=== PATIENT | female | born 1965 | race Caucasian/White ===

== ENCOUNTER 2016-06-26 13:01 | Emergency (ER) | payer OTHER ==
[~2016-06-26] VITALS: Ht 160 cm; Wt 156.7 kg
[~2016-06-26 13:01] MED LIST: CHOL20009 PO; CLON2TAB3 PO; CYAN3INJ IM; FEXO1TAB46 PO; FLUT0.0529 NAE; FRS/40 PO; LACT10SO30 PO; LEVO100T7 PO; POLY335025 PO; RANI300T2 PO; RIFA550T2 PO; TRIA0.1C55 TOP; WARF5TAB90 PO; ZOLP10TA PO
[2016-06-26 13:03] VITALS: TEMP 36.9; Ht 160 cm; Wt 156.7 kg
--- NOTE | 2016-06-26 13:35 | EMERGENCY ROOM VISIT NOTE ---
History Report prepared by Cary: Adán Meier Under the Supervision of: Dr. Flo Leach M.D. First contact with patient: 13:13 Chief Complaint: MENTAL HEALTH EVALUATION Stated Complaint: MIGRAINE/DEPRESSION History of Present Illness The patient is a 50 year old female who presents to the Emergency Room with persistent depression for the past two months. The patient has had problems with depression in the past, for which she was admitted as an inpatient twice. She feels that she may need to be admitted as an inpatient again. She also takes medication for depression which she has been compliant with but does not believe is working. She gets her prescription from her family provider. The patient spends a lot of time sitting at home due to the depression and she cries intermittently. She is depressed about money, lack of friends, and not being able to keep up like she used to. The patient currently lives with a friend. She does not currently follow up with a psychiatrist or therapist but says that she would. The patient denies any suicidal ideations. She attempted to hurt herself once in the past but says she would never do it again. The patient also complains of a migraine that started last night. The headache feels the same as her typical migraine. Nothing makes the headache better or worse. The patient notes that Dilaudid usually helps for her migraines. The patient has a history of hypertension and non-alcoholic cirrhosis. She was told that she would eventually need a transplant. 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 She currently denies chest pain, shortness of breath, or leg pain. The patient denies any recent trauma or injury. She smokes half a pack of cigarettes per day. She denies alcohol or illicit drug use. Source of History: patient Onset: two months ago Position: other (psyche) Quality: other (depression) Timing: other (persistent) Modifying Factors (Worsening): other (life stressors) Associated Symptoms: + headache, No SOB, No chest pain Note: Negative SI. Review of Systems See HPI for pertinent positives & negatives. A total of 10 systems reviewed and were otherwise negative. Past Medical & Surgical Medical Problems: (1) Abdominal pain (2) Abdominal pain (3) Abdominal pain (4) Abdominal wall cellulitis (5) Acute hypokalemia (6) Acute renal failure syndrome (7) Ankle pain (8) Asthma (9) Atypical syncope (10) Benign hypertension (11) Bipolar disorder (12) Bowel obstruction (13) Cellulitis (14) CELLULITIS ABDOMEN (15) Cellulitis and abscess of trunk (16) Chronic pain (17) Contusion of ankle (18) Contusion of periorbital region, left (19) Degenerative joint disease of spine (20) Dehydration (21) Dehydration (22) Depression (23) Diabetes mellitus type 2 (24) DM (diabetes mellitus screen) (25) Drug-seeking behavior (26) DVT (deep venous thrombosis) (27) Exacerbation of chronic back pain (28) Fall (29) Fracture of fourth metatarsal bone of left foot (30) Gastroesophageal reflux disease (31) Hepatic encephalopathy (32) Hernia of abdominal wall (33) Hyperglycemia (34) Hypokalemia (35) Hypokalemia (36) Hypokalemia (37) Hypokalemia (38) Hypothyroidism (39) Hypoxia (40) Incarcerated ventral hernia (41) Incisional irritation (42) Incisional pain (43) Inguinal lymphadenopathy (44) Insomnia (45) LUMBAGO (46) Migraine (47) Morbid obesity (48) Morbid obesity (49) Morbid obesity (50) Obstructive sleep apnea (51) Pain, dental (52) Renal colic on right side (53) Renal insufficiency (54) Renal insufficiency (55) SBO (small bowel obstruction) (56) Seroma, postoperative (57) Sleep apnea (58) Spinal stenosis (59) Supraumbilical hernia Surgical Problems: (1) H/O hernia repair (2) H/O knee surgery (3) H/O: hysterectomy (4) History of cholecystectomy (5) Hx of appendectomy Social History Problems: (1) Diabetic neuropathy Old medical records were reviewed. Nurse's notes were reviewed and I agree with. Family History Cancer Diabetes mellitus Gallbladder disease Heart disease Hypertension Lung disease Social History Smoking Status: Current Every Day Smoker Alcohol Use: none Drug Use: none Marital Status: single, in relationship Housing Status: lives with family Occupation Status: unemployed, disabled Current/Historical Medications Scheduled Carvedilol (Coreg), 12.5 MG PO BID Duloxetine Hcl (Cymbalta), 60 MG PO QPM Escitalopram Oxalate (Lexapro), 20 MG PO QPM Insulin Aspart (Novolog Flexpen), UNITS SC TID Insulin Glargine (Lantus Solostar), 75 UNITS SC BID Levothyroxine Sodium (Levothyroxine Sodium), 100 MCG PO QAM Ranitidine (Zantac), 300 MG PO QPM Rifaximin (Xifaxan), 550 MG PO BID Warfarin Sodium (Coumadin), 5 MG PO DAILY AT 4PM Scheduled PRN Clonazepam (Klonopin), 2 MG PO BID PRN for Anxiety Fexofenadine Hcl (Ya), 180 MG PO DAILY PRN for PRN Oxygen (Oxygen), 3 LITERS NA UD PRN for Shortness of Breath Polyethylene Glycol 3350 (Miralax), 1 TBS PO DAILY PRN for Severe Constipation Prochlorperazine Maleate (Compazine), 5 MG PO TID PRN for Nausea Zolpidem Tartrate (Ambien), 10 MG PO HS PRN for Insomnia Allergies Coded Allergies: Iodinated Diagnostic Agents (Verified Allergy, Intermediate, hives, ) Per patient she has had it since without problem Adhesives (Verified Allergy, Mild, RED RASH CAUSED BY PAPER TAPE, 02/26/16) Alprazolam (Verified Allergy, Unknown, MAKES LOOPY,DO AND SAY SILLY THINGS , 02/26/16) Metformin (Verified Allergy, Unknown, HANDS FEET FACE NUMB, 02/26/16) Vancomycin (Verified Adverse Reaction, Severe, renal failure, required dialysis x 3 MONTHS, 02/26/16) Methylparaben (Verified Adverse Reaction, Intermediate, FLUID RETENTION, 02/26/16) Oxymorphone (Verified Adverse Reaction, Intermediate, FLUID RETENTION, 02/26/16) Gabapentin (Verified Adverse Reaction, Mild, Aphasia/Speech impairments, 02/26/16) Sulfa Antibiotics (Verified Adverse Reaction, Mild, GI SYMPTOMS, 02/26/16) Acetaminophen (Verified Adverse Reaction, Unknown, Liver problems., ) Codeine (Verified Adverse Reaction, Unknown, UPSET STOMACH, 02/26/16) Pregabalin (Verified Adverse Reaction, Unknown, Aphasia/Speech impairments , 02/26/16) Physical Exam Vital Signs Date Time Temp Pulse Resp B/P Pulse Ox O2 Delivery O2 Flow Rate FiO2 06/26/16 16:00 88 22 124/71 92 06/26/16 14:52 63 22 101/68 94 Room Air 06/26/16 13:03 36.9 73 20 119/83 96 Physical Exam General: Non ill appearing middle aged female in no acute distress. HEENT: Normal cephalic atraumatic. Pupils are equal round and reactive to light. Sclerae anicteric. Extraocular movements are intact. Oropharynx is pink with moist mucous membranes. No swelling of the mouth lips or tongue. Neck: Supple with a midline trachea. No meningeal signs or stiffness, no JVD or bruits. No Stridor. Chest: Clear to auscultation bilaterally. No wheezes or rhonchi. No increased work of breathing. Heart: regular rate and rhythm. Abdomen: Soft nontender, nondistended without rebound guarding or rigidity. Extremities: No cyanosis clubbing or edema. No calf tenderness or assymetry Spine/Back. Non tender to palpation. No CVA tenderness Skin: Good turgor without rashes. Neurologic exam: Cranial nerves two through 12 are intact. Motor and sensation are intact and symmetrical throughout. Psych: Normal affect and thought process, intermittently teary eyed, denies suicidal or homicidal ideations. Medical Decision & Procedures Laboratory Results 06/26/16 13:55 Red Blood Count 4.61, Mean Corpuscular Volume 94.8, Mean Corpuscular Hemoglobin 33.2, Mean Corpuscular Hemoglobin Concent 35.0, Mean Platelet Volume 9.1, Neutrophils (%) (Auto) 67.4, Lymphocytes (%) (Auto) 23.8, Monocytes (%) (Auto) 6.9, Eosinophils (%) (Auto) 1.4, Basophils (%) (Auto) 0.3, Neutrophils # (Auto) 6.80, Lymphocytes # (Auto) 2.40, Monocytes # (Auto) 0.70, Eosinophils # (Auto) 0.14, Basophils # (Auto) 0.03 06/26/16 13:55 Test 06/26/16 13:31 06/26/16 13:55 Urine Opiates Screen NEG (NEG) Urine Methadone, Qualitative NEG (NEG) Urine Barbiturates NEG (NEG) Urine Phencyclidine (PCP) Level NEG (NEG) Ur Amphetamine/Methamphetamine NEG (NEG) MDMA (Ecstasy) Screen NEG (NEG) Urine Benzodiazepines Screen NEG (NEG) Urine Cocaine Metabolite NEG (NEG) Urine Marijuana (THC) NEG (NEG) White Blood Count 10.09 K/uL (4.8-10.8) Red Blood Count 4.61 M/uL (4.2-5.4) Hemoglobin 15.3 g/dL (12.0-16.0) Hematocrit 43.7 % (37-47) Mean Corpuscular Volume 94.8 fL (80-100) Mean Corpuscular Hemoglobin 33.2 pg (25-34) Mean Corpuscular Hemoglobin Concent 35.0 g/dl (32-36) Platelet Count 170 K/uL (130-400) Mean Platelet Volume 9.1 fL (7.4-10.4) Neutrophils (%) (Auto) 67.4 % Lymphocytes (%) (Auto) 23.8 % Monocytes (%) (Auto) 6.9 % Eosinophils (%) (Auto) 1.4 % Basophils (%) (Auto) 0.3 % Neutrophils # (Auto) 6.80 K/uL (1.4-6.5) Lymphocytes # (Auto) 2.40 K/uL (1.2-3.4) Monocytes # (Auto) 0.70 K/uL (0.11-0.59) Eosinophils # (Auto) 0.14 K/uL (0-0.5) Basophils # (Auto) 0.03 K/uL (0-0.2) RDW Standard Deviation 50.1 fL (36.4-46.3) RDW Coefficient of Variation 14.6 % (11.5-14.5) Immature Granulocyte % (Auto) 0.2 % Immature Granulocyte # (Auto) 0.02 K/uL (0.00-0.02) Prothrombin Time 29.4 SECONDS (9.0-12.0) Prothromb Time International Ratio 2.6 (0.9-1.1) Activated Partial Thromboplast Time 44.4 SECONDS (21.0-31.0) Partial Thromboplastin Ratio 1.7 Anion Gap 10.0 mmol/L (3-11) Est Creatinine Clear Calc Drug Dose 109.9 ml/min Estimated GFR () 86.4 Estimated GFR (Non- 74.5 BUN/Creatinine Ratio 8.4 (10-20) Calcium Level 8.4 mg/dl (8.5-10.1) Total Bilirubin 0.7 mg/dl (0.2-1) Direct Bilirubin 0.2 mg/dl (0-0.2) Aspartate Amino Transf (AST/SGOT) 19 U/L (15-37) Alanine Aminotransferase (ALT/SGPT) 17 U/L (12-78) Alkaline Phosphatase 101 U/L (45-117) Total Protein 7.2 gm/dl (6.4-8.2) Albumin 2.9 gm/dl (3.4-5.0) Lipase 45 U/L (73-393) Salicylates Level 2.8 mg/dl (2.8-20) Acetaminophen Level < 2 ug/ml (10-30) Ethyl Alcohol mg/dL < 3.0 mg/dl (0-3) Laboratory studies as stated above per my review. Medications Administered Medications (Trade) Dose Ordered Sig/Nelda Route Start Time Stop Time Status Last Admin Dose Admin Sodium Chloride 1,000 ml @ 999 mls/hr Q1H1M STAT IV 06/26/16 13:37 06/26/16 14:37 DC 06/26/16 14:10 999 MLS/HR Sodium Chloride (Nss 1000ml) 1,000 ml @ 150 mls/hr Q6H40M ONCE IV 06/26/16 13:37 06/26/16 16:48 DC 06/26/16 15:06 150 MLS/HR Ondansetron HCl (Zofran Inj) 4 mg NOW STAT IV 06/26/16 15:20 06/26/16 15:22 DC 06/26/16 15:31 4 MG Ketorolac Tromethamine (Toradol Inj) 30 mg NOW STAT IV 06/26/16 15:20 06/26/16 15:22 DC 06/26/16 15:31 30 MG ECG Indication: other (anticoagulated) Rate (beats per minute): 63 Rhythm: normal sinus Findings: 1st degree AV block, other (poor baseline) Change: 1st degree AV block is now present compared to EKG dated 2015. ED Course 1320: Past medical records reviewed. The patient was evaluated in room A7, and a complete history and physical examination were performed. 1337: NSS 1000 ml @ 150 mls/hr, NSS 1000 ml @ 999 mls/hr. 1520: Toradol 30 mg IV, Zofran 4 mg IV. 1530: The patient requested something for nausea and pain. 1535: The patient is medically cleared. She will be evaluated by the psych casework supervisor. 1600: The patient was reviewed by [facility]. She does not meet inpatient criteria. 1615: Reassessed the patient. Discussed the discharge instructions with her. She verbalized understanding. The patient is ready for discharge. Medical Decision Differential diagnosis includes migraine, depression, infection, electrolyte or metabolic abnormality. This patient comes in as described above. She was placed in room A7. She is here for treatment and evaluation of anxiety as well as a migraine. I do know her well from previous admissions . she has not had any suicidal or homicidal ideations. Her headache is consistent with previous migraines. Multiple blood testing was obtained for medical clearance. She has nothing to suggest acute infectious electrolyte or metabolic abnormality. She has a normal neurologic exam and has nothing to suggest infection or acute intracranial process. He was given Toradol 30 mg iv and zofran 4 mg iv. she has no acute toxicologic process. she was evaluated by our disease case manager rn as well as [facility]. was consulted. they do not feel she meets inpatient criteria and are going to help arrange outpatient treatment of the patient does not seem very interested in this. she says she wants to go home. again she is not suicidal or homicidal. I encouraged her follow-up with her regular doctor and return to the er for worsening of symptoms, thoughts of hurting self or others, any new problems or concerns. Impression Primary Impression: Anxiety Additional Impression: Headache Scribe Attestation The scribe's documentation has been prepared under my direction and personally reviewed by me in its entirety. I confirm that the note above accurately reflects all work, treatment, procedures, and medical decision making performed by me. Departure Information Dispostion Home / Self-Care Referrals No Doctor, Assigned (PCP) Forms HOME CARE DOCUMENTATION FORM, IMPORTANT VISIT INFORMATION Patient Instructions My [facility] [place] Additional Instructions Rest. Drink plenty of fluids. Return if: Worsening symptoms, thoughts of hurting himself or others, increasing pain or problems, any new problems or concerns. Follow-up with your doctor on Tuesday for recheck Problem Qualifiers
[2016-06-26] MEDS ORDERED: SODIUM CHLORIDE 0.9% 1000ML 1,000 ML IV STA (13:37)
[2016-06-26] MEDS ORDERED: SODIUM CHLORIDE 0.9% 1000ML 1,000 ML IV ONE (13:37)
[2016-06-26 14:15] LABS: BASO % 0.3 %; BASO ABS # 0.03 K/uL (0-0.2); COMPLETE YES; EOS % 1.4 %; HEMATOCRIT 43.7 % (37-47); IG% 0.2 %; INR 2.6 (0.9-1.1); LYMPH % 23.8 %; MEAN CELL VOLUME 94.8 fL (80-100); MEAN CORPUSCULAR HEMOGLOBIN 33.2 pg (25-34); MEAN PLATELET VOLUME 9.1 fL (7.4-10.4); MONO % 6.9 %; NEUT % 67.4 %; PARTIAL THROMBOPLASTIN RATIO 1.7; PLATELET COUNT 170 K/uL (130-400); PROTHROMBIN TIME (PATIENT) 29.4 SECONDS (9.0-12.0); RED BLOOD COUNT 4.61 M/uL (4.2-5.4); WHITE BLOOD COUNT 10.09 K/uL (4.8-10.8)
[2016-06-26 14:24] LABS: BUN/CREATININE RATIO 8.4 (10-20); CALCIUM 8.4 mg/dl (8.5-10.1); CREATININE 0.89 mg/dl (0.60-1.20); POTASSIUM 3.2 mmol/L (3.5-5.1)
[2016-06-26 15:00] LABS: BENZODIAZEPINE, URINE NEG (NEG); COCAINE,URINE NEG (NEG); PHENCYCLIDINE, URINE NEG (NEG)
[2016-06-26 15:07] LABS: ACETAMINOPHEN < 2 ug/ml (10-30)
[2016-06-26] MEDS ORDERED: ONDANSETRON INJ 2 MG/ML 2 ML VIAL IV STA (15:20)
[2016-06-26] MEDS ORDERED: KETOROLAC TROMETHAMINE 30 MG/ML VIAL IV STA (15:20)
[2016-06-26 16:00] VITALS: BP 124/71; PULSE 88; O2SAT 92
[2016-12-29] MEDS ORDERED: PRLSR20 PO (13:52)
== END 2016-06-26 16:20 | disposition home or self-care (01) ==
LOC: C.EDB 13:05 → C.EDA 16:20
DX: F41.9 Anxiety disorder, unspecified (principal); R51 Headache; J45.909 Unspecified asthma, uncomplicated; I10 Essential (primary) hypertension; E11.9 Type 2 diabetes mellitus without complications; Z79.899 Other long term (current) drug therapy; Z79.01 Long term (current) use of 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s; Z79.4 Long term (current) use of insulin

== ENCOUNTER 2016-07-07 13:23 | Emergency (ER) | payer OTHER ==
[~2016-07-07] VITALS: Ht 160 cm; Wt 162.1 kg
[~2016-07-07 13:23] MED LIST changes: -CHOL20009 PO; -CYAN3INJ IM; -FLUT0.0529 NAE; -FRS/40 PO; -LACT10SO30 PO; -TRIA0.1C55 TOP
[2016-07-07 13:35] VITALS: TEMP 36.6; Ht 160 cm; Wt 162.1 kg
[2016-07-07] MEDS ORDERED: SODIUM CHLORIDE 0.9% 1000ML 1,000 ML IV STA (13:57)
[2016-07-07] MEDS ORDERED: KETOROLAC TROMETHAMINE 30 MG/ML VIAL IV ONE (14:00)
[2016-07-07] MEDS ORDERED: ONDANSETRON INJ 2 MG/ML 2 ML VIAL IV ONE (14:00)
--- NOTE | 2016-07-07 14:03 | EMERGENCY ROOM VISIT NOTE ---
History Report prepared by [place]: Lilliana Huddleston Under the Supervision of: Dr. Netta Valle D.O. First contact with patient: 13:48 Chief Complaint: ABDOMINAL PAIN Stated Complaint: CHEST PAIN Nursing Triage Summary: abdominal pain for the last two days from the liver up to the shoulder area. nausea with this. patient with liver disease. History of Present Illness The patient is a 50 year old female who presents to the Emergency Room with complaints of persistent diffuse abdominal pain that began yesterday. She currently rates her discomfort as a 7/10 in severity. The patient states that today her pain feels different than her typical abdominal pain. She states that her pain is typically related to her hernia. Today the patient describes her pain persistently as a burning pain, and intermittently sharp. . She states that the pain radiates up into her right shoulder and is associated with nausea and hot flashes today. She denies any fever, diarrhea, or constipation. The patient states that she took Advil for her discomfort without relief of her symptoms. She notes a history of cirrhosis of the liver. The patient notes that her pain feels related to her cirrhosis The patient states that she is eventually going to need a liver transplant, Source of History: patient Onset: yesterday Position: abdomen (diffuse) Symptom Intensity: 7/10 Quality: burning, sharp Timing: other (persistent) Associated Symptoms: + nausea, No diarrhea, No fevers Note: Associated Symptoms: hot flashes, pain radiating up to her right shoulder. Review of Systems See HPI for pertinent positives & negatives. A total of 10 systems reviewed and were otherwise negative. Past Medical & Surgical Medical Problems: (1) Abdominal pain (2) Abdominal pain (3) Abdominal pain (4) Abdominal wall cellulitis (5) Acute hypokalemia (6) Acute renal failure syndrome (7) Ankle pain (8) Asthma (9) Atypical syncope (10) Benign hypertension (11) Bipolar disorder (12) Bowel obstruction (13) Cellulitis (14) CELLULITIS ABDOMEN (15) Cellulitis and abscess of trunk (16) Chronic pain (17) Contusion of ankle (18) Contusion of periorbital region, left (19) Degenerative joint disease of spine (20) Dehydration (21) Dehydration (22) Depression (23) Diabetes mellitus type 2 (24) DM (diabetes mellitus screen) (25) Drug-seeking behavior (26) DVT (deep venous thrombosis) (27) Exacerbation of chronic back pain (28) Fall (29) Fracture of fourth metatarsal bone of left foot (30) Gastroesophageal reflux disease (31) Hepatic encephalopathy (32) Hernia of abdominal wall (33) Hyperglycemia (34) Hypokalemia (35) Hypokalemia (36) Hypokalemia (37) Hypokalemia (38) Hypothyroidism (39) Hypoxia (40) Incarcerated ventral hernia (41) Incisional irritation (42) Incisional pain (43) Inguinal lymphadenopathy (44) Insomnia (45) LUMBAGO (46) Migraine (47) Morbid obesity (48) Morbid obesity (49) Morbid obesity (50) Obstructive sleep apnea (51) Pain, dental (52) Renal colic on right side (53) Renal insufficiency (54) Renal insufficiency (55) SBO (small bowel obstruction) (56) Seroma, postoperative (57) Sleep apnea (58) Spinal stenosis (59) Supraumbilical hernia Surgical Problems: (1) H/O hernia repair (2) H/O knee surgery (3) H/O: hysterectomy (4) History of cholecystectomy (5) Hx of appendectomy Social History Problems: (1) Diabetic neuropathy Family History Cancer Diabetes mellitus Gallbladder disease Heart disease Hypertension Lung disease Social History Smoking Status: Current Every Day Smoker Alcohol Use: none Drug Use: none Marital Status: single, in relationship Housing Status: lives with family Occupation Status: unemployed, disabled Current/Historical Medications Scheduled Carvedilol (Coreg), 12.5 MG PO BID Duloxetine Hcl (Cymbalta), 60 MG PO QPM Escitalopram Oxalate (Lexapro), 20 MG PO QPM Insulin Aspart (Novolog Flexpen), UNITS SC TID Insulin Glargine (Lantus Solostar), 75 UNITS SC BID Levothyroxine Sodium (Levothyroxine Sodium), 100 MCG PO QAM Ranitidine (Zantac), 300 MG PO QPM Warfarin Sodium (Coumadin), 5 MG PO DAILY AT 4PM Scheduled PRN Clonazepam (Klonopin), 2 MG PO BID PRN for Anxiety Fexofenadine Hcl (Ya), 180 MG PO DAILY PRN for PRN Oxygen (Oxygen), 3 LITERS NA UD PRN for Shortness of Breath Prochlorperazine Maleate (Compazine), 5 MG PO TID PRN for Nausea Zolpidem Tartrate (Ambien), 10 MG PO HS PRN for Insomnia Allergies Coded Allergies: Iodinated Diagnostic Agents (Verified Allergy, Intermediate, hives, ) Per patient she has had it since without problem Adhesives (Verified Allergy, Mild, RED RASH CAUSED BY PAPER TAPE, 07/07/16) Alprazolam (Verified Allergy, Unknown, MAKES LOOPY,DO AND SAY SILLY THINGS , 07/07/16) Metformin (Verified Allergy, Unknown, HANDS FEET FACE NUMB, 07/07/16) Vancomycin (Verified Adverse Reaction, Severe, renal failure, required dialysis x 3 MONTHS, 07/07/16) Methylparaben (Verified Adverse Reaction, Intermediate, FLUID RETENTION, ) Oxymorphone (Verified Adverse Reaction, Intermediate, FLUID RETENTION, ) Gabapentin (Verified Adverse Reaction, Mild, Aphasia/Speech impairments, ) Sulfa Antibiotics (Verified Adverse Reaction, Mild, GI SYMPTOMS, 07/07/16) Acetaminophen (Verified Adverse Reaction, Unknown, Liver problems., ) Codeine (Verified Adverse Reaction, Unknown, UPSET STOMACH, 07/07/16) Pregabalin (Verified Adverse Reaction, Unknown, Aphasia/Speech impairments , 07/07/16) Physical Exam Vital Signs Date Time Temp Pulse Resp B/P Pulse Ox O2 Delivery O2 Flow Rate FiO2 07/07/16 16:05 60 18 116/63 95 07/07/16 13:35 36.6 88 20 140/76 92 Room Air Physical Exam GENERAL: The patient is a pleasant 50 year old female in mild distress. VITALS: Afebrile, hypertensive, normal pulse oximetry on room air. THROAT: No pharyngeal injection, exudates, or tonsillar hypertrophy. Airway is patent. NECK: Supple, nontender, no lymphadenopathy or nuchal rigidity. THORAX : Symmetrical and nontender to palpation without deformity or palpable crepitus. LUNGS : Clear without wheezing, rhonchi, or rales HEART: Regular rate and rhythm ABDOMEN: Morbidly obese, soft diffusely tender, without guarding, rigidity, or rebound tenderness. Bowel sounds are diminished in all 4 quadrants. Unable to assess for masses. No CVA tenderness. Femoral pulses are symmetrical EXTREMITIES : Without deformity or point tenderness. There are no palpable cords, edema, or erythema.. NEUROLOGIC: Intact without focal deficits Medical Decision & Procedures ER Provider Diagnostic Interpretation: X-ray results as stated below per interpretation by me and the radiologist: ABDOMEN 2VIEW W/PA CHEST RTN CLINICAL HISTORY: abdominal pain pain COMPARISON STUDY: No previous studies for comparison. FINDINGS: Lungs are considered clear. Heart is top limits normal terms of size. Diaphragms smooth. Bowel pattern is nonobstructive. There are degenerative changes of the lumbosacral spine. There is been a prior cholecystectomy. Bowel pattern is nonobstructive. IMPRESSION: 1. No acute process of the chest. 2. No acute process of the abdomen Electronically signed by: Will Holder M.D. 07/07/2016 3:39 PM Dictated Date/Time: 07/07/2016 3:39 PM Laboratory Results 07/07/16 14:15 Red Blood Count 4.09, Mean Corpuscular Volume 92.4, Mean Corpuscular Hemoglobin 32.5, Mean Corpuscular Hemoglobin Concent 35.2, Mean Platelet Volume 9.1, Neutrophils (%) (Auto) 58.4, Lymphocytes (%) (Auto) 30.7, Monocytes (%) (Auto) 8.0, Eosinophils (%) (Auto) 2.3, Basophils (%) (Auto) 0.4, Neutrophils # (Auto) 4.92, Lymphocytes # (Auto) 2.58, Monocytes # (Auto) 0.67, Eosinophils # (Auto) 0.19, Basophils # (Auto) 0.03 07/07/16 14:15 Test 07/07/16 14:10 07/07/16 14:15 Urine Color YELLOW Urine Appearance CLEAR (CLEAR) Urine pH 5.5 (4.5-7.5) Urine Specific [place] 1.037 (1.000-1.030) Urine Protein NEG (NEG) Urine Glucose (UA) 3+ (NEG) Urine Ketones NEG (NEG) Urine Occult Blood NEG (NEG) Urine Nitrite NEG (NEG) Urine Bilirubin NEG (NEG) Urine Urobilinogen NEG (NEG) Urine Leukocyte Esterase NEG (NEG) White Blood Count 8.41 K/uL (4.8-10.8) Red Blood Count 4.09 M/uL (4.2-5.4) Hemoglobin 13.3 g/dL (12.0-16.0) Hematocrit 37.8 % (37-47) Mean Corpuscular Volume 92.4 fL (80-100) Mean Corpuscular Hemoglobin 32.5 pg (25-34) Mean Corpuscular Hemoglobin Concent 35.2 g/dl (32-36) Platelet Count 153 K/uL (130-400) Mean Platelet Volume 9.1 fL (7.4-10.4) Neutrophils (%) (Auto) 58.4 % Lymphocytes (%) (Auto) 30.7 % Monocytes (%) (Auto) 8.0 % Eosinophils (%) (Auto) 2.3 % Basophils (%) (Auto) 0.4 % Neutrophils # (Auto) 4.92 K/uL (1.4-6.5) Lymphocytes # (Auto) 2.58 K/uL (1.2-3.4) Monocytes # (Auto) 0.67 K/uL (0.11-0.59) Eosinophils # (Auto) 0.19 K/uL (0-0.5) Basophils # (Auto) 0.03 K/uL (0-0.2) RDW Standard Deviation 48.0 fL (36.4-46.3) RDW Coefficient of Variation 14.2 % (11.5-14.5) Immature Granulocyte % (Auto) 0.2 % Immature Granulocyte # (Auto) 0.02 K/uL (0.00-0.02) Prothrombin Time 30.6 SECONDS (9.0-12.0) Prothromb Time International Ratio 2.7 (0.9-1.1) Anion Gap 6.0 mmol/L (3-11) Est Creatinine Clear Calc Drug Dose 120.5 ml/min Estimated GFR () 94.0 Estimated GFR (Non- 81.1 BUN/Creatinine Ratio 13.9 (10-20) Calcium Level 8.1 mg/dl (8.5-10.1) Total Bilirubin 0.4 mg/dl (0.2-1) Direct Bilirubin 0.1 mg/dl (0-0.2) Aspartate Amino Transf (AST/SGOT) 26 U/L (15-37) Alanine Aminotransferase (ALT/SGPT) 26 U/L (12-78) Alkaline Phosphatase 92 U/L (45-117) Total Creatine Kinase 52 U/L (26-192) Troponin I < 0.015 ng/ml (0-0.045) Total Protein 6.5 gm/dl (6.4-8.2) Albumin 2.5 gm/dl (3.4-5.0) Lipase 172 U/L (73-393) Beta-Hydroxybutyric Acid 0.48 mg/dL (0.2-2.81) Laboratory studies as stated above per my review. Medications Administered Medications (Trade) Dose Ordered Sig/Nelda Route Start Time Stop Time Status Last Admin Dose Admin Sodium Chloride (Nss 1000ml) 1,000 ml @ 250 mls/hr Q4H STAT IV 07/07/16 13:57 07/07/16 17:07 DC 07/07/16 14:29 250 MLS/HR Ondansetron HCl (Zofran Inj) 4 mg NOW ONCE IV 07/07/16 14:00 07/07/16 14:02 DC 07/07/16 14:27 4 MG Ketorolac Tromethamine (Toradol Inj) 30 mg NOW ONCE IV 07/07/16 14:00 07/07/16 14:02 DC 07/07/16 14:28 30 MG Lidocaine HCl (Viscous Lidocaine 2% Soln) 10 ml NOW STAT PO 07/07/16 15:04 07/07/16 15:05 DC 07/07/16 15:43 10 ML Al Hydroxide/Mg Hydroxide (Maalox Susp) 30 ml NOW STAT PO 07/07/16 15:04 07/07/16 15:05 DC 07/07/16 15:43 30 ML ECG Indication: abdominal pain Rate (beats per minute): 70 Rhythm: other (undetermined rhythm, expect sinus) Findings: 1st degree AV block, no acute ischemic change, other (low voltage) Comparison ECG Date: 06/26/16 Change: no significant change ED Course 1350: Past medical records reviewed. The patient was evaluated in room C1B. A complete history and physical examination was performed. On examination she was complaining of right upper quadrant pain but did have diffuse tenderness with palpation. She did not have any peritoneal or obstructive findings. An IV of normal saline was established and she was hydrated with IV fluids. She was medicated with 30 mg of IV Toradol and 4 mg of IV Zofran. She continued to complain of moderate pain and was given a GI cocktail of Maalox and lidocaine with minimal relief. The patient is on a no narcotic treatment plan and did not receive any additional narcotics. She underwent the above diagnostic workup. Her CBC is normal and not suggestive of infection. She does have an elevated glucose of 337 with negative ketones and she is a diabetic. Electrolytes and liver function tests are normal. Her lipase is normal and not suggestive of pancreatitis. Calcium is 8.1. Urinalysis shows 3+ glucose otherwise negative no infection. Abdominal series does not show any acute findings; no obstructive changes no free air. Chest x-ray is negative as well. Twelve-lead ECG shows an undetermined rhythm which I suspect is a sinus rhythm with first-degree AV block. She has no acute ischemic changes. Her troponin is normal and not suggestive of ischemia. 50-year-old woman well-known to the Emergency department with a history of chronic abdominal pain who presents with acute abdominal pain. She does not have any acute findings. At this time she has been advised on diet and symptomatic care. She's to have close outpatient follow-up with her personal physician for further pain management. Return if worsening symptoms or concerns. The patient is comfortable with this treatment plan. 1357: Ordered Sodium Chloride 1000 ml @ 250 mls/hr IV. 1400: Ordered Toradol Inj 30 mg IV, Zofran Inj 4 mg IV. 1504: Ordered Maalox Susp 30 ml PO, Lidocaine HCl 10 ml PO. 1545: I reevaluated the patient and she is hemodynamically stable. I discussed the exam findings with her and I discussed the treatment plan. She verbalized complete understanding and agreement. She is ready to go home. Medical Decision EMR, nurse's notes, diagnostic studies personally reviewed Differential diagnosis-see above The chart was completed utilizing [employer] Speech Voice Recognition Software. Grammatical errors, random word insertions, pronoun errors, and incomplete sentences are an occasional consequence of this system due to software limitations, ambient noise, and hardware issues. Any formal questions or concerns about the content, text, or information contained within the body of this dictation should be directly addressed to the physician for clarification. Impression Primary Impression: Acute generalized abdominal pain Additional Impressions: Obesity narcotic seeking behavior Scribe Attestation The scribe's documentation has been prepared under my direction and personally reviewed by me in its entirety. I confirm that the note above accurately reflects all work, treatment, procedures, and medical decision making performed by me. Departure Information Dispostion Home / Self-Care Referrals Agustina Cummings M.D. (PCP) Forms Call Back Authorization, HOME CARE DOCUMENTATION FORM, IMPORTANT VISIT INFORMATION Patient Instructions My [facility] Additional Instructions Continue medications as prescribed Follow-up with your family doctor if pain persists Return if worsening symptoms or concerns Problem Qualifiers
[2016-07-07 14:58] LABS: BASO % 0.4 %; BASO ABS # 0.03 K/uL (0-0.2); COMPLETE YES; EOS % 2.3 %; HEMATOCRIT 37.8 % (37-47); IG% 0.2 %; LYMPH % 30.7 %; LYMPH ABS # 2.58 K/uL (1.2-3.4); MEAN CELL VOLUME 92.4 fL (80-100); MEAN CORPUSCULAR HEMOGLOBIN 32.5 pg (25-34); MEAN CORPUSCULAR HGB CONC 35.2 g/dl (32-36); MEAN PLATELET VOLUME 9.1 fL (7.4-10.4); NEUT % 58.4 %; PLATELET COUNT 153 K/uL (130-400); RED BLOOD COUNT 4.09 M/uL (4.2-5.4); WHITE BLOOD COUNT 8.41 K/uL (4.8-10.8)
[2016-07-07 15:04] LABS: INR 2.7 (0.9-1.1); PROTHROMBIN TIME (PATIENT) 30.6 SECONDS (9.0-12.0)
[2016-07-07] MEDS ORDERED: LIDOCAINE HCL 2% VISC SOLN 20 ML UDC PO STA (15:04)
[2016-07-07] MEDS ORDERED: ALUMINUM/MAGNESIUM SUSP 30 ML UDC PO STA (15:04)
[2016-07-07 15:18] LABS: ALT/SGPT 26 U/L (12-78); AST/SGOT 26 U/L (15-37); BLOOD UREA NITROGEN 12 mg/dl (7-18); BUN/CREATININE RATIO 13.9 (10-20); CALCIUM 8.1 mg/dl (8.5-10.1); CARBON DIOXIDE 27 mmol/L (21-32); CHLORIDE 104 mmol/L (98-107); CREATININE 0.83 mg/dl (0.60-1.20); GLUCOSE 337 mg/dl (70-99); SODIUM 137 mmol/L (136-145)
[2016-07-07 15:27] LABS: ALKALINE PHOSPHATASE 92 U/L (45-117); BETA-HYDROXYBUTYRATE 0.48 mg/dL (0.2-2.81)
--- NOTE | 2016-07-07 15:41 | DIAGNOSTIC IMAGING REPORT ---
ABDOMEN 2VIEW W/PA CHEST RTN CLINICAL HISTORY: abdominal pain pain COMPARISON STUDY: No previous studies for comparison. FINDINGS: Lungs are considered clear. Heart is top limits normal terms of size. Diaphragms smooth. Bowel pattern is nonobstructive. There are degenerative changes of the lumbosacral spine. There is been a prior cholecystectomy. Bowel pattern is nonobstructive. IMPRESSION: 1. No acute process of the chest. 2. No acute process of the abdomen Electronically signed by: Will Holder M.D. 07/07/2016 3:39 PM Dictated Date/Time: 07/07/2016 3:39 PM
[2016-07-07 16:05] VITALS: BP 116/63; PULSE 60; O2SAT 95
[2016-07-07 17:23] LABS: URINE APPEARANCE CLEAR (CLEAR); URINE BILIRUBIN NEG (NEG); URINE COLOR YELLOW; URINE NITRITE NEG (NEG); URINE PH 5.5 (4.5-7.5); URINE SPECIFIC GRAVITY 1.037 (1.000-1.030); UROBILINOGEN NEG (NEG)
[2016-07-07 17:29] LABS: MANUAL MICROSCOPIC REQUIRED? NO; REVIEW REQ? NO
[2016-12-29] MEDS ORDERED: PRLSR20 PO (13:52)
== END 2016-07-07 16:06 | disposition home or self-care (01) ==
LOC: EDBD 13:23 → C.EDC 13:26
DX: R10.84 Generalized abdominal pain (principal); E66.01 Morbid (severe) obesity due to excess calories; Z68.44 Body mass index [BMI] 60.0-69.9, adult; Z76.5 Malingerer [conscious simulation]; E11.9 Type 2 diabetes mellitus without complications; J45.909 Unspecified asthma, uncomplicated; I10 Essential (primary) hypertension; F31.9 Bipolar disorder, unspecified; K21.9 Gastro-esophageal reflux disease without esophagitis; F17.200 Nicotine dependence, unspecified, uncomplicated; Z79.899 Other long term (current) drug therapy; Z79.4 Long term (current) use of insulin; Z79.01 Long term (current) use of 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s; Z86.718 Personal history of other venous thrombosis and embolism; Z83.3 Family history of diabetes mellitus; Z82.49 Family history of ischemic heart disease and other diseases of the circulatory system

== ENCOUNTER 2016-08-07 14:21 | Emergency (ER) | payer OTHER ==
[~2016-08-07] VITALS: Ht 160 cm; Wt 155.0 kg
[~2016-08-07 14:21] MED LIST changes: -POLY335025 PO; -RIFA550T2 PO
[2016-08-07 14:26] VITALS: Ht 160 cm; Wt 155.0 kg
[2016-08-07] MEDS ORDERED: KETOROLAC TROMETHAMINE 30 MG/ML VIAL IV STA (14:46)
[2016-08-07] MEDS ORDERED: SODIUM CHLORIDE 0.9% 1000ML 1,000 ML IV STA (14:46)
[2016-08-07 15:24] LABS: BASO % 0.6 %; BASO ABS # 0.05 K/uL (0-0.2); COMPLETE YES; EOS % 2.3 %; HEMATOCRIT 42.1 % (37-47); IG% 0.2 %; LYMPH % 31.6 %; MEAN CELL VOLUME 92.9 fL (80-100); MEAN CORPUSCULAR HEMOGLOBIN 33.6 pg (25-34); MEAN CORPUSCULAR HGB CONC 36.1 g/dl (32-36); MONO % 8.7 %; NEUT % 56.6 %; PLATELET COUNT 182 K/uL (130-400); RED BLOOD COUNT 4.53 M/uL (4.2-5.4); WHITE BLOOD COUNT 8.85 K/uL (4.8-10.8)
[2016-08-07 15:39] LABS: BUN/CREATININE RATIO 6.5 (10-20); CREATININE 1.1 mg/dl (0.60-1.20); POTASSIUM 4.1 mmol/L (3.5-5.1)
[2016-08-07] MEDS ORDERED: NovoLIN-R INSULIN PER UNIT CHARGE SC STA (15:43)
[2016-08-07 15:48] LABS: URINE APPEARANCE CLEAR (CLEAR); URINE COLOR DK YELLOW; URINE EPITHELIAL CELL AUTO >30 /lpf (0-5); URINE NITRITE NEG (NEG); URINE SPECIFIC GRAVITY > 1.045 (1.000-1.030); UROBILINOGEN NEG (NEG); ZZURINE CULT IF INDIC CATH NO
[2016-08-07 15:53] LABS: BETA-HYDROXYBUTYRATE 1.03 mg/dL (0.2-2.81)
[2016-08-07 15:59] LABS: INR 2.9 (0.9-1.1); PROTHROMBIN TIME (PATIENT) 32.6 SECONDS (9.0-12.0)
[2016-08-07 16:00] LABS: MANUAL MICROSCOPIC REQUIRED? NO; REVIEW REQ? YES; SULFASALICYLIC ACID NEG (NEG); URINE BILIRUBIN 1+ (NEG)
[2016-08-07 16:04] LABS: URINE MUCUS PRESENT (NONE PRSENT)
--- NOTE | 2016-08-07 16:11 | DIAGNOSTIC IMAGING REPORT ---
CT OF THE ABDOMEN AND PELVIS WITHOUT CONTRAST CLINICAL HISTORY: Severe left flank pain. COMPARISON STUDY: CT of the abdomen and pelvis January 25, 2016 and abdominal series July 07, 2016. TECHNIQUE: Axial images of the abdomen and pelvis were obtained without IV contrast. Images were reviewed in the axial, sagittal, and coronal planes. FINDINGS: Several left renal calculi measure up to 4 mm. There are no ureteral calculi and there is no hydronephrosis. Evaluation of the abdomen and pelvis is suboptimal as unenhanced exam. The liver is cirrhotic. Sensitivity for detection of hepatic lesions is diminished but none are identified. The gallbladder surgically absent. Splenomegaly is unchanged. There is no ascites. Unchanged postoperative findings involving the anterior abdominal wall are noted with infiltration with there is no fluid collection. There is no evidence for a bowel obstruction. The appendix is surgically absent. Several prominent upper abdominal lymph nodes are unchanged since prior CT of January 25, 2016. There is no peripancreatic infiltration. Multilevel degenerative changes within the lumbar spine are present. IMPRESSION: 1. Left-sided nephrolithiasis. No ureteral calculi or hydronephrosis. 2. Cirrhosis with stable splenomegaly. 3. No acute process within the abdomen or pelvis on unenhanced exam. Unchanged postoperative appearance of the anterior abdominal wall. No fluid collection. Electronically signed by: Vini Alvarado M.D. 08/07/2016 4:09 PM Dictated Date/Time: 08/07/2016 4:02 PM
[2016-08-07 16:33] VITALS: BP 130/88; PULSE 68; TEMP 36.7; O2SAT 96
--- NOTE | 2016-08-07 20:08 | EMERGENCY ROOM VISIT NOTE ---
History Report prepared by [place]: Adán Meier Under the Supervision of: Dr. Branden Corea D.O. First contact with patient: 14:32 Chief Complaint: KIDNEY STONE Stated Complaint: KIDNEY STONES History of Present Illness The patient is a 50 year old female who presents to the Emergency Room with complaints of constant left lower back pain for the past 3.5 weeks. The patient describes a burning / stabbing sensation. The pain is not worse with movement. She has a history of kidney stones and UTIs. She has had burning with urination and urgency for the past week. She has had 3-4 stones in the past, and has had lithotripsy. She has not seen a Urologist or her primary care physician. She is s/p complete hysterectomy, appendectomy, cholecystectomy. Patient denies headache, change in vision, fevers, chest pain, shortness of breath, nausea, vomiting, diarrhea, and melena. Source of History: patient Onset: 3.5 weeks ago Position: back (left lower) Quality: burning, stabbing Timing: constant Associated Symptoms: + urinary symptoms, No SOB, No chest pain, No diarrhea , No fevers, No headache, No nausea, No vomiting Review of Systems See HPI for pertinent positives & negatives. A total of 10 systems reviewed and were otherwise negative. Past Medical & Surgical Medical Problems: (1) Abdominal pain (2) Abdominal pain (3) Abdominal pain (4) Abdominal wall cellulitis (5) Acute hypokalemia (6) Acute renal failure syndrome (7) Ankle pain (8) Asthma (9) Atypical syncope (10) Benign hypertension (11) Bipolar disorder (12) Bowel obstruction (13) Cellulitis (14) CELLULITIS ABDOMEN (15) Cellulitis and abscess of trunk (16) Chronic pain (17) Contusion of ankle (18) Contusion of periorbital region, left (19) Degenerative joint disease of spine (20) Dehydration (21) Dehydration (22) Depression (23) Diabetes mellitus type 2 (24) DM (diabetes mellitus screen) (25) Drug-seeking behavior (26) DVT (deep venous thrombosis) (27) Exacerbation of chronic back pain (28) Fall (29) Fracture of fourth metatarsal bone of left foot (30) Gastroesophageal reflux disease (31) Hepatic encephalopathy (32) Hernia of abdominal wall (33) Hyperglycemia (34) Hypokalemia (35) Hypokalemia (36) Hypokalemia (37) Hypokalemia (38) Hypothyroidism (39) Hypoxia (40) Incarcerated ventral hernia (41) Incisional irritation (42) Incisional pain (43) Inguinal lymphadenopathy (44) Insomnia (45) LUMBAGO (46) Migraine (47) Morbid obesity (48) Morbid obesity (49) Morbid obesity (50) Obstructive sleep apnea (51) Pain, dental (52) Renal colic on right side (53) Renal insufficiency (54) Renal insufficiency (55) SBO (small bowel obstruction) (56) Seroma, postoperative (57) Sleep apnea (58) Spinal stenosis (59) Supraumbilical hernia Surgical Problems: (1) H/O hernia repair (2) H/O knee surgery (3) H/O: hysterectomy (4) History of cholecystectomy (5) Hx of appendectomy Social History Problems: (1) Diabetic neuropathy Family History Cancer Diabetes mellitus Gallbladder disease Heart disease Hypertension Lung disease Social History Smoking Status: Current Every Day Smoker Alcohol Use: none Drug Use: none Marital Status: single, in relationship Housing Status: lives with family Occupation Status: unemployed, disabled Current/Historical Medications Scheduled Carvedilol (Coreg), 12.5 MG PO BID Duloxetine Hcl (Cymbalta), 60 MG PO QPM Escitalopram Oxalate (Lexapro), 20 MG PO QPM Insulin Aspart (Novolog Flexpen), UNITS SC TID Insulin Glargine (Lantus Solostar), 75 UNITS SC BID Levothyroxine Sodium (Levothyroxine Sodium), 100 MCG PO QAM Ranitidine (Zantac), 300 MG PO QPM Warfarin Sodium (Coumadin), 5 MG PO DAILY AT 4PM Scheduled PRN Clonazepam (Klonopin), 2 MG PO BID PRN for Anxiety Fexofenadine Hcl (Ya), 180 MG PO DAILY PRN for PRN Oxygen (Oxygen), 3 LITERS NA UD PRN for Shortness of Breath Prochlorperazine Maleate (Compazine), 5 MG PO TID PRN for Nausea Zolpidem Tartrate (Ambien), 10 MG PO HS PRN for Insomnia Allergies Coded Allergies: Iodinated Diagnostic Agents (Verified Allergy, Intermediate, hives, ) Per patient she has had it since without problem Adhesives (Verified Allergy, Mild, RED RASH CAUSED BY PAPER TAPE, 07/07/16) Alprazolam (Verified Allergy, Unknown, MAKES LOOPY,DO AND SAY SILLY THINGS , 07/07/16) Metformin (Verified Allergy, Unknown, HANDS FEET FACE NUMB, 07/07/16) Vancomycin (Verified Adverse Reaction, Severe, renal failure, required dialysis x 3 MONTHS, 07/07/16) Methylparaben (Verified Adverse Reaction, Intermediate, FLUID RETENTION, ) Oxymorphone (Verified Adverse Reaction, Intermediate, FLUID RETENTION, ) Gabapentin (Verified Adverse Reaction, Mild, Aphasia/Speech impairments, ) Sulfa Antibiotics (Verified Adverse Reaction, Mild, GI SYMPTOMS, 07/07/16) Acetaminophen (Verified Adverse Reaction, Unknown, Liver problems., ) Codeine (Verified Adverse Reaction, Unknown, UPSET STOMACH, 07/07/16) Pregabalin (Verified Adverse Reaction, Unknown, Aphasia/Speech impairments , 07/07/16) Physical Exam Vital Signs Date Time Temp Pulse Resp B/P Pulse Ox O2 Delivery O2 Flow Rate FiO2 08/07/16 16:33 36.7 68 18 130/88 96 08/07/16 14:26 36.7 68 18 130/88 96 Room Air Physical Exam GENERAL: Morbidly obese, sitting up in bed, disheveled, no acute distress. EYE EXAM: normal conjunctiva. OROPHARYNX: no exudate, no erythema, lips, buccal mucosa, and tongue normal and mucous membranes are moist NECK: supple, no nuchal rigidity, no adenopathy, non-tender LUNGS: Clear to auscultation. Normal chest wall mechanics HEART: no murmurs, S1 normal and S2 normal ABDOMEN: abdomen soft, non-tender, normo-active bowel sounds, no masses, no rebound or guarding. Multiple old incisions. BACK: Reproducible tenderness over the left lower paraspinal region. SKIN: no rashes and no bruising UPPER EXTREMITIES: upper extremities are grossly normal. LOWER EXTREMITIES: No pitting edema. NEURO EXAM: Normal sensorium, cranial nerves II-XII grossly intact, normal speech, no gross weakness of arms, no gross weakness of legs. Gross sensation intact. Medical Decision & Procedures ER Provider Diagnostic Interpretation: Radiology results as stated below per my review and the radiologist's interpretation: CT OF THE ABDOMEN AND PELVIS WITHOUT CONTRAST CLINICAL HISTORY: Severe left flank pain. COMPARISON STUDY: CT of the abdomen and pelvis January 25, 2016 and abdominal series July 07, 2016. TECHNIQUE: Axial images of the abdomen and pelvis were obtained without IV contrast. Images were reviewed in the axial, sagittal, and coronal planes. FINDINGS: Several left renal calculi measure up to 4 mm. There are no ureteral calculi and there is no hydronephrosis. Evaluation of the abdomen and pelvis is suboptimal as unenhanced exam. The liver is cirrhotic. Sensitivity for detection of hepatic lesions is diminished but none are identified. The gallbladder surgically absent. Splenomegaly is unchanged. There is no ascites. Unchanged postoperative findings involving the anterior abdominal wall are noted with infiltration with there is no fluid collection. There is no evidence for a bowel obstruction. The appendix is surgically absent. Several prominent upper abdominal lymph nodes are unchanged since prior CT of January 25, 2016. There is no peripancreatic infiltration. Multilevel degenerative changes within the lumbar spine are present. IMPRESSION: 1. Left-sided nephrolithiasis. No ureteral calculi or hydronephrosis. 2. Cirrhosis with stable splenomegaly. 3. No acute process within the abdomen or pelvis on unenhanced exam. Unchanged postoperative appearance of the anterior abdominal wall. No fluid collection. Electronically signed by: Vini Alvarado M.D. 08/07/2016 4:09 PM Dictated Date/Time: 08/07/2016 4:02 PM Laboratory Results 08/07/16 14:55 Red Blood Count 4.53, Mean Corpuscular Volume 92.9, Mean Corpuscular Hemoglobin 33.6, Mean Corpuscular Hemoglobin Concent 36.1, Mean Platelet Volume 10.0, Neutrophils (%) (Auto) 56.6, Lymphocytes (%) (Auto) 31.6, Monocytes (%) (Auto) 8.7, Eosinophils (%) (Auto) 2.3, Basophils (%) (Auto) 0.6, Neutrophils # (Auto) 5.01, Lymphocytes # (Auto) 2.80, Monocytes # (Auto) 0.77, Eosinophils # (Auto) 0.20, Basophils # (Auto) 0.05 08/07/16 14:55 Test 08/07/16 14:55 08/07/16 15:30 White Blood Count 8.85 K/uL (4.8-10.8) Red Blood Count 4.53 M/uL (4.2-5.4) Hemoglobin 15.2 g/dL (12.0-16.0) Hematocrit 42.1 % (37-47) Mean Corpuscular Volume 92.9 fL (80-100) Mean Corpuscular Hemoglobin 33.6 pg (25-34) Mean Corpuscular Hemoglobin Concent 36.1 g/dl (32-36) Platelet Count 182 K/uL (130-400) Mean Platelet Volume 10.0 fL (7.4-10.4) Neutrophils (%) (Auto) 56.6 % Lymphocytes (%) (Auto) 31.6 % Monocytes (%) (Auto) 8.7 % Eosinophils (%) (Auto) 2.3 % Basophils (%) (Auto) 0.6 % Neutrophils # (Auto) 5.01 K/uL (1.4-6.5) Lymphocytes # (Auto) 2.80 K/uL (1.2-3.4) Monocytes # (Auto) 0.77 K/uL (0.11-0.59) Eosinophils # (Auto) 0.20 K/uL (0-0.5) Basophils # (Auto) 0.05 K/uL (0-0.2) RDW Standard Deviation 50.5 fL (36.4-46.3) RDW Coefficient of Variation 14.8 % (11.5-14.5) Immature Granulocyte % (Auto) 0.2 % Immature Granulocyte # (Auto) 0.02 K/uL (0.00-0.02) Prothrombin Time 32.6 SECONDS (9.0-12.0) Prothromb Time International Ratio 2.9 (0.9-1.1) Anion Gap 7.0 mmol/L (3-11) Est Creatinine Clear Calc Drug Dose 88.2 ml/min Estimated GFR () 66.8 Estimated GFR (Non- 57.7 BUN/Creatinine Ratio 6.5 (10-20) Calcium Level 9.0 mg/dl (8.5-10.1) Total Bilirubin 0.8 mg/dl (0.2-1) Direct Bilirubin 0.2 mg/dl (0-0.2) Aspartate Amino Transf (AST/SGOT) 20 U/L (15-37) Alanine Aminotransferase (ALT/SGPT) 22 U/L (12-78) Alkaline Phosphatase 122 U/L (45-117) Total Protein 7.3 gm/dl (6.4-8.2) Albumin 2.9 gm/dl (3.4-5.0) Lipase 58 U/L (73-393) Beta-Hydroxybutyric Acid 1.03 mg/dL (0.2-2.81) Urine Color DK YELLOW Urine Appearance CLEAR (CLEAR) Urine pH 6.0 (4.5-7.5) Urine Specific Golden > 1.045 (1.000-1.030) Urine Protein NEG (NEG) Urine Glucose (UA) 2+ (NEG) Urine Ketones TRACE (NEG) Urine Occult Blood 1+ (NEG) Urine Nitrite NEG (NEG) Urine Bilirubin 1+ (NEG) Urine Urobilinogen NEG (NEG) Urine Leukocyte Esterase NEG (NEG) Urine WBC (Auto) 1-5 /hpf (0-5) Urine RBC (Auto) 10-30 /hpf (0-4) Urine Hyaline Casts (Auto) 5-10 /lpf (0-5) Urine Epithelial Cells (Auto) >30 /lpf (0-5) Urine Bacteria (Auto) NEG (NEG) Urine Renal Epithelial Cells /lpf (0-5) Urine Pathogenic Casts /lpf (0) Urine Mucus PRESENT (NONE PRSENT) Laboratory results per my review. Medications Administered Medications (Trade) Dose Ordered Sig/Nleda Route Start Time Stop Time Status Last Admin Dose Admin Sodium Chloride (Nss 1000ml) 1,000 ml @ 999 mls/hr Q1H1M STAT IV 08/07/16 14:46 08/07/16 15:46 DC 08/07/16 15:25 999 MLS/HR Ketorolac Tromethamine (Toradol Inj) 30 mg NOW STAT IV 08/07/16 14:46 08/07/16 14:47 DC 08/07/16 15:25 30 MG Insulin Human Regular (novoLIN-R U-100 PER UNIT) 8 units NOW STAT SC 08/07/16 15:43 08/07/16 15:45 DC 08/07/16 15:59 8 UNITS ED Course ED COURSE: Vital signs were reviewed and were normal. The patients medical record was reviewed The above diagnostic studies were performed and reviewed. ED treatments and interventions as stated above. 1440: The patient was evaluated in room B6. A complete history and physical examination was performed. 1446: Toradol 30 mg IV, NSS 1000 ml @ 999 mls/hr. 1543: Insulin Human Regular 8 units SC. 1625: Upon reevaluation, the patient is ready for discharge.I discussed my findings with the patient and she understands and agrees with the treatment plan. Based on the patients age, coexisting illnesses, exam and lab findings the decision to treat as an outpatient was made. The patient remained stable while under my care. The patient appeared well at the time of discharge. Medical Decision Differential diagnoses includes but is not limited to gastritis, peptic ulcer disease, GERD, gallbladder disease, pancreatitis, small bowel obstruction, acute coronary syndrome, pericarditis, ischemic bowel, irritable bowel disease, irritable bowel syndrome, appendicitis, diverticulitis, malignancy, hernia, urinary tract infection, torsion, [/ectopic (if female)], perforation, trauma, infectious. Patient is a 50-year-old female who presents the ER for left lower back pain associated with urinary frequency which has been present for the past 3 weeks. She notes it feels like her Previous stones. Labs show no significant leukocytosis or anemia. BMP shows a glucose of 480. She is a diabetic and was given 8 units subcutaneous insulin. Lipase along with LFTs and bilirubin was unremarkable. Urine was contaminated but shows no signs of UTI. INR was therapeutic at 2.9. CT of her abdomen pelvis shows no stones or acute pathology. Patient was discharged follow-up with her primary care doctor for likely muscle skeletal back pain. Discussed with Pt concerning signs and symptoms to watch out for. Pt was instructed to follow up with their PCP and discussed with the patient their option to return to the ED at anytime for persistent or worsening symptoms. The appropriate anticipatory guidance and out- patient management, including indications for return to the emergency department , were explained at length to the patient and understood. Impression Primary Impression: Left low back pain Scribe Attestation The scribe's documentation has been prepared under my direction and personally reviewed by me in its entirety. I confirm that the note above accurately reflects all work, treatment, procedures, and medical decision making performed by me. Departure Information Dispostion Home / Self-Care Referrals No Doctor, Assigned (PCP) Forms HOME CARE DOCUMENTATION FORM, IMPORTANT VISIT INFORMATION Patient Instructions Back Pain - [facility], [facility] Additional Instructions Please follow up with your primary care doctor with in the next 24 hours. Any worsening of your symptoms, please return to the ED immediately. This includes weakness or numbness in her legs, unable to eat, worsening pain, passing out, or any other concerning signs or symptoms from your standpoint. Please take Motrin 400 mg 3 times a day as needed for pain. Problem Qualifiers Primary Impression: Left low back pain Chronicity: acute Sciatica presence: without sciatica Qualified Codes: M54.5 - Low back pain
[2016-12-29] MEDS ORDERED: PRLSR20 PO (13:52)
== END 2016-08-07 16:34 | disposition home or self-care (01) ==
LOC: C.EDB 14:22
DX: M54.5 Low back pain (principal); E87.6 Hypokalemia; J45.909 Unspecified asthma, uncomplicated; N17.9 Acute kidney failure, unspecified; I10 Essential (primary) hypertension; E11.9 Type 2 diabetes mellitus without complications; E03.9 Hypothyroidism, unspecified; R09.02 Hypoxemia; E66.01 Morbid (severe) obesity due to excess calories; G47.33 Obstructive sleep apnea (adult) (pediatric); Z83.3 Family history of diabetes mellitus; Z82.49 Family history of ischemic heart disease and other diseases of the circulatory system; F17.200 Nicotine dependence, unspecified, uncomplicated; Z79.01 Long term (current) use of 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s; Z51.81 Encounter for therapeutic drug level monitoring

== ENCOUNTER 2016-10-19 00:31 | Emergency (ER) | payer OTHER ==
[~2016-10-19] VITALS: Ht 160 cm; Wt 156.5 kg
[2016-10-19 00:35] VITALS: TEMP 36.6; Ht 160 cm; Wt 156.5 kg
[2016-10-19] MEDS ORDERED: SODIUM CHLORIDE 0.9% 1000ML 1,000 ML IV STA ×2 (00:50)
[2016-10-19] MEDS ORDERED: DiphenhydrAMINE HCL 50 MG/ML VIAL IV STA (00:50)
[2016-10-19] MEDS ORDERED: METOCLOPRAMIDE HCL INJ 5 MG/ML 2 ML VIAL IV STA (00:50)
[2016-10-19 01:36] LABS: BASO % 0.6 %; BASO ABS # 0.03 K/uL (0-0.2); COMPLETE YES; EOS % 2.1 %; HEMATOCRIT 42.3 % (37-47); LYMPH % 38.6 %; LYMPH ABS # 1.99 K/uL (1.2-3.4); MEAN CELL VOLUME 95.5 fL (80-100); MEAN CORPUSCULAR HEMOGLOBIN 33.2 pg (25-34); MEAN CORPUSCULAR HGB CONC 34.8 g/dl (32-36); MEAN PLATELET VOLUME 9.7 fL (7.4-10.4); NEUT % 52.7 %; PLATELET COUNT 134 K/uL (130-400); RED BLOOD COUNT 4.43 M/uL (4.2-5.4); WHITE BLOOD COUNT 5.15 K/uL (4.8-10.8)
[2016-10-19 01:43] LABS: URINE APPEARANCE CLOUDY (CLEAR); URINE BILIRUBIN NEG (NEG); URINE COLOR YELLOW; URINE EPITHELIAL CELL AUTO >30 /lpf (0-5); URINE NITRITE NEG (NEG); URINE SPECIFIC GRAVITY > 1.045 (1.000-1.030); UROBILINOGEN NEG (NEG)
[2016-10-19 01:47] LABS: MANUAL MICROSCOPIC REQUIRED? NO; REVIEW REQ? YES
[2016-10-19 01:57] LABS: ALT/SGPT 22 U/L (12-78); AST/SGOT 27 U/L (15-37); BLOOD UREA NITROGEN 5 mg/dl (7-18); BUN/CREATININE RATIO 4.5 (10-20); CALCIUM 8.1 mg/dl (8.5-10.1); CARBON DIOXIDE 24 mmol/L (21-32); CHLORIDE 105 mmol/L (98-107); GLUCOSE 349 mg/dl (70-99); MAGNESIUM 1.8 mg/dl (1.8-2.4); POTASSIUM 3.8 mmol/L (3.5-5.1); SODIUM 138 mmol/L (136-145)
[2016-10-19 01:57] LABS: URINE MUCUS PRESENT (NONE PRSENT)
[2016-10-19 01:59] LABS: ALKALINE PHOSPHATASE 101 U/L (45-117)
[2016-10-19 02:07] LABS: BETA-HYDROXYBUTYRATE 1.04 mg/dL (0.2-2.81)
[2016-10-19] MEDS ORDERED: NovoLIN-R INSULIN PER UNIT CHARGE IV STA (02:19)
[2016-10-19] MEDS ORDERED: LEVOTHYROXINE 100 MCG TAB PO STA (02:31)
--- NOTE | 2016-10-19 03:25 | EMERGENCY ROOM VISIT NOTE ---
History First contact with patient: 00:48 Chief Complaint: MEDICATION REFILL REQUEST Stated Complaint: OUT OF MEDICATIONS - MIGRAINE History of Present Illness The patient is a 50 year old female who presents to the Emergency Room with complaints of polydipsia and polyuria has been out of her medications for the past month that she states she cannot afford them. Patient is Medicare Medicaid. Her pains are $1-$3. Patient states her sugars are 500 today. Patient denies chest pain, dyspnea, fever, chills, cough, congestion, abdominal pain, lightheadedness or dizziness. She is tolerate by mouth fluids and food. Review of Systems See HPI for pertinent positives & negatives. A total of 10 systems reviewed and were otherwise negative. Past Medical/Surgical History Medical Problems: (1) Abdominal pain (2) Abdominal pain (3) Abdominal pain (4) Abdominal wall cellulitis (5) Acute hypokalemia (6) Acute renal failure syndrome (7) Ankle pain (8) Asthma (9) Atypical syncope (10) Benign hypertension (11) Bipolar disorder (12) Bowel obstruction (13) Cellulitis (14) CELLULITIS ABDOMEN (15) Cellulitis and abscess of trunk (16) Chronic pain (17) Contusion of ankle (18) Contusion of periorbital region, left (19) Degenerative joint disease of spine (20) Dehydration (21) Dehydration (22) Depression (23) Diabetes mellitus type 2 (24) DM (diabetes mellitus screen) (25) Drug-seeking behavior (26) DVT (deep venous thrombosis) (27) Exacerbation of chronic back pain (28) Fall (29) Fracture of fourth metatarsal bone of left foot (30) Gastroesophageal reflux disease (31) Hepatic encephalopathy (32) Hernia of abdominal wall (33) Hyperglycemia (34) Hypokalemia (35) Hypokalemia (36) Hypokalemia (37) Hypokalemia (38) Hypothyroidism (39) Hypoxia (40) Incarcerated ventral hernia (41) Incisional irritation (42) Incisional pain (43) Inguinal lymphadenopathy (44) Insomnia (45) LUMBAGO (46) Migraine (47) Morbid obesity (48) Morbid obesity (49) Morbid obesity (50) Obstructive sleep apnea (51) Pain, dental (52) Renal colic on right side (53) Renal insufficiency (54) Renal insufficiency (55) SBO (small bowel obstruction) (56) Seroma, postoperative (57) Sleep apnea (58) Spinal stenosis (59) Supraumbilical hernia Surgical Problems: (1) H/O hernia repair (2) H/O knee surgery (3) H/O: hysterectomy (4) History of cholecystectomy (5) Hx of appendectomy Social History Problems: (1) Diabetic neuropathy Family History Cancer Diabetes mellitus Gallbladder disease Heart disease Hypertension Lung disease Social History Smoking Status: Former Smoker Alcohol Use: none Drug Use: none Marital Status: single, in relationship Housing Status: lives with family Occupation Status: unemployed, disabled Current/Historical Medications Scheduled Carvedilol (Coreg), 12.5 MG PO BID Duloxetine Hcl (Cymbalta), 60 MG PO QPM Escitalopram Oxalate (Lexapro), 20 MG PO QPM Insulin Aspart (Novolog Flexpen), UNITS SC TID Insulin Glargine (Lantus Solostar), 75 UNITS SC BID Levothyroxine Sodium (Levothyroxine Sodium), 100 MCG PO QAM Ranitidine (Zantac), 300 MG PO QPM Warfarin Sodium (Coumadin), 5 MG PO DAILY AT 4PM Scheduled PRN Fexofenadine Hcl (Ya), 180 MG PO DAILY PRN for PRN Home O2 Therapy (Oxygen), 3 LITERS NA UD PRN for Shortness of Breath Prochlorperazine Maleate (Compazine), 5 MG PO TID PRN for Nausea Allergies Coded Allergies: Iodinated Diagnostic Agents (Verified Allergy, Intermediate, hives, ) Per patient she has had it since without problem Adhesives (Verified Allergy, Mild, RED RASH CAUSED BY PAPER TAPE, 10/19/16) Alprazolam (Verified Allergy, Unknown, MAKES LOOPY,DO AND SAY SILLY THINGS , 10/19/16) Metformin (Verified Allergy, Unknown, HANDS FEET FACE NUMB, 10/19/16) Vancomycin (Verified Adverse Reaction, Severe, renal failure, required dialysis x 3 MONTHS, 10/19/16) Methylparaben (Verified Adverse Reaction, Intermediate, FLUID RETENTION, ) Oxymorphone (Verified Adverse Reaction, Intermediate, FLUID RETENTION, ) Gabapentin (Verified Adverse Reaction, Mild, Aphasia/Speech impairments, ) Sulfa Antibiotics (Verified Adverse Reaction, Mild, GI SYMPTOMS, 10/19/16) Acetaminophen (Verified Adverse Reaction, Unknown, Liver problems., ) Codeine (Verified Adverse Reaction, Unknown, UPSET STOMACH, 10/19/16) Pregabalin (Verified Adverse Reaction, Unknown, Aphasia/Speech impairments , 10/19/16) Physical Exam Vital Signs Date Time Temp Pulse Resp B/P (MAP) Pulse Ox O2 Delivery O2 Flow Rate FiO2 10/19/16 01:30 Room Air 10/19/16 01:30 Room Air 10/19/16 00:35 36.6 82 16 130/76 97 Room Air Physical Exam VITALS: Vitals are noted on the nurse's note and reviewed by myself. Vital signs stable. GENERAL: White female, in no acute distress, nondiaphoretic, well-developed well -nourished. SKIN: The skin was without rashes, erythema, edema, or bruising. There is no tenting of the skin. Capillary reflex less than 2 seconds. HEAD: Normocephalic atraumatic. EARS: External auditory canals clear, tympanic membranes pearly [place] without erythema or effusion bilaterally. EYES: Pupils equal round and reactive to light and accommodation. Conjunctivae without injection, sclerae without icterus. Extraocular movements intact. NOSE: Patent, turbinates without inflammation or discharge. MOUTH: Mucous membranes moist. Pharynx without erythema or exudate. Uvula midline. Airway patent. Tongue does not deviate. NECK: Supple without nuchal rigidity. No lymphadenopathy. No thyromegaly. Cervical spine is nontender. No JVD. HEART: Regular rate and rhythm without murmurs gallops or rubs. LUNGS: Clear to auscultation bilaterally without wheezes, rales or rhonchi. No dullness to percussion. No retractions or accessory muscle use. ABDOMEN: Positive bowel sounds x 4. Normal tympanic percussion. Soft, protuberant, obese, nontender, without masses or organomegaly. Amaya sign negative. No guarding or rebound tenderness. MUSCULOSKELETAL: No muscle atrophy, erythema, or edema noted. NEURO: Patient was alert and oriented to person place and time. Normal sensation to light and sharp touch. No focal neurological deficits. Medical Decision & Procedures Laboratory Results 10/19/16 01:25 Red Blood Count 4.43, Mean Corpuscular Volume 95.5, Mean Corpuscular Hemoglobin 33.2, Mean Corpuscular Hemoglobin Concent 34.8, Mean Platelet Volume 9.7, Neutrophils (%) (Auto) 52.7, Lymphocytes (%) (Auto) 38.6, Monocytes (%) (Auto) 6.0, Eosinophils (%) (Auto) 2.1, Basophils (%) (Auto) 0.6, Neutrophils # (Auto) 2.71, Lymphocytes # (Auto) 1.99, Monocytes # (Auto) 0.31, Eosinophils # (Auto) 0.11, Basophils # (Auto) 0.03 10/19/16 01:25 Test 10/19/16 01:05 10/19/16 01:25 10/19/16 02:50 Urine Color YELLOW Urine Appearance CLOUDY (CLEAR) Urine pH 6.0 (4.5-7.5) Urine Specific [place] > 1.045 (1.000-1.030) Urine Protein TRACE (NEG) Urine Glucose (UA) 3+ (NEG) Urine Ketones TRACE (NEG) Urine Occult Blood 3+ (NEG) Urine Nitrite NEG (NEG) Urine Bilirubin NEG (NEG) Urine Urobilinogen NEG (NEG) Urine Leukocyte Esterase NEG (NEG) Urine WBC (Auto) 1-5 /hpf (0-5) Urine RBC (Auto) >30 /hpf (0-4) Urine Hyaline Casts (Auto) 1-5 /lpf (0-5) Urine Epithelial Cells (Auto) >30 /lpf (0-5) Urine Bacteria (Auto) 1+ (NEG) Urine Crystals CALCIUM OXALATE (NONE Urine Mucus PRESENT (NONE PRSENT) Urine Yeast (Auto) BUDDING (NONE PRSENT) White Blood Count 5.15 K/uL (4.8-10.8) Red Blood Count 4.43 M/uL (4.2-5.4) Hemoglobin 14.7 g/dL (12.0-16.0) Hematocrit 42.3 % (37-47) Mean Corpuscular Volume 95.5 fL (80-100) Mean Corpuscular Hemoglobin 33.2 pg (25-34) Mean Corpuscular Hemoglobin Concent 34.8 g/dl (32-36) Platelet Count 134 K/uL (130-400) Mean Platelet Volume 9.7 fL (7.4-10.4) Neutrophils (%) (Auto) 52.7 % Lymphocytes (%) (Auto) 38.6 % Monocytes (%) (Auto) 6.0 % Eosinophils (%) (Auto) 2.1 % Basophils (%) (Auto) 0.6 % Neutrophils # (Auto) 2.71 K/uL (1.4-6.5) Lymphocytes # (Auto) 1.99 K/uL (1.2-3.4) Monocytes # (Auto) 0.31 K/uL (0.11-0.59) Eosinophils # (Auto) 0.11 K/uL (0-0.5) Basophils # (Auto) 0.03 K/uL (0-0.2) RDW Standard Deviation 49.9 fL (36.4-46.3) RDW Coefficient of Variation 14.3 % (11.5-14.5) Immature Granulocyte % (Auto) 0.0 % Immature Granulocyte # (Auto) 0.00 K/uL (0.00-0.02) Anion Gap 9.0 mmol/L (3-11) Est Creatinine Clear Calc Drug Dose 88.8 ml/min Estimated GFR () 66.8 Estimated GFR (Non- 57.7 BUN/Creatinine Ratio 4.5 (10-20) Calcium Level 8.1 mg/dl (8.5-10.1) Magnesium Level 1.8 mg/dl (1.8-2.4) Total Bilirubin 0.6 mg/dl (0.2-1) Direct Bilirubin 0.2 mg/dl (0-0.2) Aspartate Amino Transf (AST/SGOT) 27 U/L (15-37) Alanine Aminotransferase (ALT/SGPT) 22 U/L (12-78) Alkaline Phosphatase 101 U/L (45-117) Troponin I < 0.015 ng/ml (0-0.045) Total Protein 6.6 gm/dl (6.4-8.2) Albumin 2.7 gm/dl (3.4-5.0) Beta-Hydroxybutyric Acid 1.04 mg/dL (0.2-2.81) Thyroid Stimulating Hormone (TSH) 87.800 uIu/ml (0.300-4.500) Bedside Glucose 297 mg/dl (70-90) Medications Administered Medications (Trade) Dose Ordered Sig/Nelda Route Start Time Stop Time Status Last Admin Dose Admin Sodium Chloride 1,000 ml @ 999 mls/hr Q1H1M STAT IV 10/19/16 00:50 10/19/16 01:50 DC 10/19/16 01:10 999 MLS/HR Sodium Chloride 1,000 ml @ 125 mls/hr Q8H STAT IV 10/19/16 00:50 10/19/16 08:49 10/19/16 01:10 125 MLS/HR Metoclopramide HCl (Reglan Inj) 10 mg NOW STAT IV 10/19/16 00:50 10/19/16 00:53 DC 10/19/16 01:09 10 MG Diphenhydramine HCl (Benadryl Inj) 25 mg NOW STAT IV 10/19/16 00:50 10/19/16 00:53 DC 10/19/16 01:08 25 MG Insulin Human Regular (novoLIN-R U-100 PER UNIT) 10 units NOW STAT IV 10/19/16 02:19 10/19/16 02:20 DC 10/19/16 02:26 10 UNITS Levothyroxine Sodium (Synthroid Tab) 100 mcg NOW STAT PO 10/19/16 02:31 10/19/16 02:33 DC 10/19/16 02:51 100 MCG ED Course Prior records/ancillary studies reviewed and summarized above. Nursing notes reviewed. The patient's history was concerning for noncompliance of medications with polydipsia and polyuria. Differential diagnosis: Etiologies such as metabolic, infection, hypo/hyperglycemia, electrolyte abnormalities, cardiac sources, intracerebral event, toxicologic, neurologic, as well as others were entertained. Physical examination: As above. ER treatment provided: IV Lock Insulin, Synthroid On reassessment the patient felt better. Diagnostics interpretation by me: ECG: Normal sinus, poor baseline, normal intervals, no acute ST-T wave changes, rate of 50 with low voltage. Impression sinus bradycardia with low voltage interpreted by myself The labs revealed hyper glycemia without DKA. Elevated TSH. Exam and history seem consistent with hyperglycemia without DKA and elevated TSH from medication noncompliance. Case management informed patient of the cost of her medications. She states she will borrow money from her roommate to get her medications tomorrow. She is counseled on the importance of taking her medications. She verbalizes understanding of this. She is advised to follow- up in one to days at the family care doctor here in the ER sooner for chest pain , difficulty breathing, worsening signs or symptoms or as needed. Patient was neurovascularly and neurologic intact. She is well-appearing. By the evaluation outlined above emergent etiologies such as infection, cardiac sources, intracerebral event, toxologic, neurologic, metabolic, as well as others were deemed relatively unlikely. Patient states she has all her medications at the pharmacy. She just needs to fill them. The pt informed about the findings as listed above. All questions were answered and pleased with the treatment. Return instructions were outlined and the patient was discharged in stable condition. Referral: The patient was referred back to primary care physician for follow-up in 2 to 3 days for a recheck of the current condition. Case reviewed with my attending Medical Decision As above Impression Primary Impression: Diabetes mellitus with hyperglycemia Additional Impressions: Hypothyroidism Noncompliance with medication regimen Departure Information Dispostion Home / Self-Care Condition GOOD Referrals Agustina Cummings M.D. (PCP) Patient Instructions My [facility] Additional Instructions Monitor your blood sugar. It is extremely important that he take all your medications as directed. Your thyroid levels are quite extremely abnormal because you have not been taking your medications. Rest and drink plenty of fluids as tolerated. Continue current medications. Return to the ER immediately for abdominal pain, vomiting, fevers, chest pains , difficulty breathing, worsening of your condition, or as needed. Follow up with your primary physician in 2-3 days for a recheck of your current condition. 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
[2016-10-19 03:37] VITALS: BP 130/71; PULSE 76; O2SAT 98
[2016-12-29] MEDS ORDERED: PRLSR20 PO (13:52)
== END 2016-10-19 03:38 | disposition home or self-care (01) ==
LOC: C.EDB 00:33 → C.EDC 03:38
DX: E11.65 Type 2 diabetes mellitus with hyperglycemia (principal); E03.9 Hypothyroidism, unspecified; Z91.19 Patient's noncompliance with other medical treatment and regimen; I10 Essential (primary) hypertension; K21.9 Gastro-esophageal reflux disease without esophagitis; K72.90 Hepatic failure, unspecified without coma; K58.9 Irritable bowel syndrome, unspecified; F31.9 Bipolar disorder, unspecified; K56.60 Unspecified intestinal obstruction; J45.909 Unspecified asthma, uncomplicated; M19.90 Unspecified osteoarthritis, unspecified site; G47.33 Obstructive sleep apnea (adult) (pediatric); Z87.81 Personal history of (healed) traumatic fracture; Z86.718 Personal history of other venous thrombosis and embolism; Z86.19 Personal history of other infectious and parasitic diseases; Z87.828 Personal history of other (healed) physical injury and trauma; Z91.81 History of falling; Z90.710 Acquired absence of both cervix and uterus; Z90.49 Acquired absence of other specified parts of digestive tract; Z98.890 Other specified postprocedural states; Z87.891 Personal history of nicotine dependence; Z79.01 Long term (current) use of 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s; Z79.4 Long term (current) use of insulin; Z79.899 Other long term (current) drug therapy; Z88.2 Allergy status to sulfonamides; Z88.5 Allergy status to narcotic agent; Z88.8 Allergy status to other drugs, medicaments and biological substances; Z91.041 Radiographic dye allergy status; Z91.09 Other allergy status, other than to drugs and biological substances; Z80.9 Family history of malignant neoplasm, unspecified; Z83.3 Family history of diabetes mellitus; Z83.79 Family history of other diseases of the digestive system; Z82.49 Family history of ischemic heart disease and other diseases of the circulatory system

== ENCOUNTER 2016-10-21 13:48 | Emergency (ER) | payer OTHER ==
[~2016-10-21] VITALS: Ht 160 cm; Wt 160.4 kg
[~2016-10-21 13:48] MED LIST changes: -CLON2TAB3 PO; -ZOLP10TA PO
[2016-10-21 13:51] VITALS: TEMP 36.7; Ht 160 cm; Wt 160.4 kg
[2016-10-21] MEDS ORDERED: SODIUM CHLORIDE 0.9% 1000ML 1,000 ML IV STA (14:45)
--- NOTE | 2016-10-21 14:50 | EMERGENCY ROOM VISIT NOTE ---
History First contact with patient: 14:25 Chief Complaint: CARDIAC ASSESSMENT Stated Complaint: HEAVY CHEST, SOB Nursing Triage Summary: Pt woke up from nap today feeling chest tightness, headache, and dyspnea. Pt stopped taking medications for approximately a month now because she can't afford them. Chest tightness 8/10. History of Present Illness The patient is a 50 year old female who presents to the Emergency Room with complaints of chest pain and trouble breathing. The patient states that she woke up from a nap and felt as though she couldn't breathe. She reports a tightness in her chest which she rates as 8/10. She states she has also had headache. She states that her glucose has been around 500 in the last several days. The patient states that she has been without a lot of her medications per weeks and even months. She states that she could not afford them. 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 She states it has at least been several weeks that she has been without her SSRIs. She denies any earache, sore throat, cough or fever. She denies vomiting. She denies abdominal pain. She reports intermittent swelling in her extremities. The patient has a history of DVT. The patient states that she found an old bottle of Coumadin and has been intermittently taking it. Review of Systems A 10 system review of systems was completed with positives and pertinent negatives listed in the HPI. Past Medical/Surgical History Medical Problems: (1) Abdominal pain (2) Abdominal pain (3) Abdominal pain (4) Abdominal wall cellulitis (5) Acute hypokalemia (6) Acute renal failure syndrome (7) Ankle pain (8) Asthma (9) Atypical syncope (10) Benign hypertension (11) Bipolar disorder (12) Bowel obstruction (13) Cellulitis (14) CELLULITIS ABDOMEN (15) Cellulitis and abscess of trunk (16) Chronic pain (17) Contusion of ankle (18) Contusion of periorbital region, left (19) Degenerative joint disease of spine (20) Dehydration (21) Dehydration (22) Depression (23) Diabetes mellitus type 2 (24) DM (diabetes mellitus screen) (25) Drug-seeking behavior (26) DVT (deep venous thrombosis) (27) Exacerbation of chronic back pain (28) Fall (29) Fracture of fourth metatarsal bone of left foot (30) Gastroesophageal reflux disease (31) Hepatic encephalopathy (32) Hernia of abdominal wall (33) Hyperglycemia (34) Hypokalemia (35) Hypokalemia (36) Hypokalemia (37) Hypokalemia (38) Hypothyroidism (39) Hypoxia (40) Incarcerated ventral hernia (41) Incisional irritation (42) Incisional pain (43) Inguinal lymphadenopathy (44) Insomnia (45) LUMBAGO (46) Migraine (47) Morbid obesity (48) Morbid obesity (49) Morbid obesity (50) Obstructive sleep apnea (51) Pain, dental (52) Renal colic on right side (53) Renal insufficiency (54) Renal insufficiency (55) SBO (small bowel obstruction) (56) Seroma, postoperative (57) Sleep apnea (58) Spinal stenosis (59) Supraumbilical hernia Surgical Problems: (1) H/O hernia repair (2) H/O knee surgery (3) H/O: hysterectomy (4) History of cholecystectomy (5) Hx of appendectomy Social History Problems: (1) Diabetic neuropathy Family History Cancer Diabetes mellitus Gallbladder disease Heart disease Hypertension Lung disease Social History Smoking Status: Former Smoker Alcohol Use: none Drug Use: none Marital Status: single, in relationship Housing Status: lives with family Occupation Status: unemployed, disabled Current/Historical Medications Scheduled Carvedilol (Coreg), 12.5 MG PO BID Duloxetine Hcl (Cymbalta), 60 MG PO QPM Escitalopram Oxalate (Lexapro), 20 MG PO QPM Insulin Aspart (Novolog Flexpen), UNITS SC TID Insulin Glargine (Lantus Solostar), 75 UNITS SC BID Levothyroxine Sodium (Levothyroxine Sodium), 100 MCG PO QAM Ranitidine (Zantac), 300 MG PO QPM Warfarin Sodium (Coumadin), 5 MG PO DAILY AT 4PM Scheduled PRN Fexofenadine Hcl (Ya), 180 MG PO DAILY PRN for PRN Home O2 Therapy (Oxygen), 3 LITERS NA UD PRN for Shortness of Breath Prochlorperazine Maleate (Compazine), 5 MG PO TID PRN for Nausea Allergies Coded Allergies: Iodinated Diagnostic Agents (Verified Allergy, Intermediate, hives, ) Per patient she has had it since without problem (01/25/16 Ioversal given with no pretreats and no mention of rxn; also given Ioversal 11/26/06 with pretreats) Adhesives (Verified Allergy, Mild, RED RASH CAUSED BY PAPER TAPE, 10/21/16) Alprazolam (Verified Allergy, Unknown, MAKES LOOPY,DO AND SAY SILLY THINGS , 10/21/16) Metformin (Verified Allergy, Unknown, HANDS FEET FACE NUMB, 10/21/16) Vancomycin (Verified Adverse Reaction, Severe, renal failure, required dialysis x 3 MONTHS, 10/21/16) Methylparaben (Verified Adverse Reaction, Intermediate, FLUID RETENTION, ) Oxymorphone (Verified Adverse Reaction, Intermediate, FLUID RETENTION, ) Gabapentin (Verified Adverse Reaction, Mild, Aphasia/Speech impairments, ) Sulfa Antibiotics (Verified Adverse Reaction, Mild, GI SYMPTOMS, 10/21/16) Acetaminophen (Verified Adverse Reaction, Unknown, Liver problems., ) Codeine (Verified Adverse Reaction, Unknown, UPSET STOMACH, 10/21/16) Pregabalin (Verified Adverse Reaction, Unknown, Aphasia/Speech impairments , 10/21/16) Physical Exam Vital Signs Date Time Temp Pulse Resp B/P (MAP) Pulse Ox O2 Delivery O2 Flow Rate FiO2 10/21/16 17:58 51 17 119/61 97 10/21/16 17:11 50 18 123/60 96 Room Air 10/21/16 15:50 54 133/72 10/21/16 14:14 52 10/21/16 13:51 36.7 59 20 131/89 96 Room Air Physical Exam VITALS: Vitals are noted on the nurse's note and reviewed by myself. Vital signs stable. The patient is afebrile. Her heart rate is slow. GENERAL: This is a 50-year-old obese female, in no acute distress, nondiaphoretic, well-developed well-nourished. SKIN: The skin was without rashes, erythema, edema, or bruising. There is no tenting of the skin. Capillary reflex less than 2 seconds. HEAD: Normocephalic atraumatic. EARS: External auditory canals clear, tympanic membranes pearly [place] without erythema or effusion bilaterally. EYES: Pupils equal round and reactive to light and accommodation. Conjunctivae without injection, sclerae without icterus. Extraocular movements intact. NOSE: Patent, turbinates without inflammation or discharge. MOUTH: Mucous membranes moist. Tonsils are not enlarged. Pharynx without erythema or exudate. Uvula midline. Airway patent. Tongue does not deviate. NECK: Supple without nuchal rigidity. No lymphadenopathy. No thyromegaly. Cervical spine is nontender. No JVD. HEART: Regular rate and rhythm without murmurs gallops or rubs. LUNGS: Clear to auscultation bilaterally without wheezes, rales or rhonchi. No retractions or accessory muscle use. ABDOMEN: Positive bowel sounds x 4. Soft, nontender, without masses or organomegaly. MUSCULOSKELETAL: No muscle atrophy, erythema, or edema noted. Full range of motion in all extremities. Strength 5/5 throughout. NEURO: Patient was alert and oriented to person place and time. No focal neurological deficits. Medical Decision & Procedures ER Provider Diagnostic Interpretation: CHEST ONE VIEW PORTABLE CLINICAL HISTORY: chest tightness dyspnea COMPARISON STUDY: 07/07/2016 FINDINGS: Mild stable cardiomegaly. Diaphragms smooth. Lungs are clear. IMPRESSION: Mild cardiomegaly. Otherwise negative study CT ANGIOGRAPHY OF THE CHEST, PULMONARY EMBOLUS PROTOCOL CLINICAL HISTORY: Chest tightness, chest pain and elevated d-dimer. History of deep venous thrombus. COMPARISON STUDY: Chest radiograph July 07, 2016 and October 21, 2016. TECHNIQUE: Following IV administration of 119 mL of Optiray-320, helical axial images of the chest were obtained utilizing the pulmonary embolus protocol. Maximal intensity projections and sagittal and coronal reformats were viewed on an independent 3D workstation. IV contrast was administered without complication. CT DOSE: 955.71 mGy.cm FINDINGS: No pulmonary emboli are identified. There is no evidence of thoracic aortic dissection. The heart is mildly enlarged. There is no pericardial effusion. No enlarged axillary, mediastinal or hilar lymph nodes are present. Note is made of a 2.2 x 1.6 cm exophytic right lobe thyroid nodule. There is no consolidation to suggest pneumonia. No pneumothorax or pleural effusions present. Bony thorax is unremarkable. Visualized portions the upper abdomen demonstrate a cirrhotic liver and splenomegaly. This appears unchanged since earlier abdominal CT's. Prominent upper abdominal lymph nodes are unchanged. IMPRESSION: 1. No pulmonary emboli identified. 2. No acute intrathoracic findings. 3. Mild cardiomegaly and moderate coronary artery calcification. 4. Cirrhosis with stable splenomegaly. Laboratory Results 10/21/16 15:17 Red Blood Count 4.14, Mean Corpuscular Volume 96.1, Mean Corpuscular Hemoglobin 33.8, Mean Corpuscular Hemoglobin Concent 35.2, Mean Platelet Volume 9.5, Neutrophils (%) (Auto) 48.7, Lymphocytes (%) (Auto) 43.8, Monocytes (%) (Auto) 4.9, Eosinophils (%) (Auto) 2.2, Basophils (%) (Auto) 0.4, Neutrophils # (Auto) 2.16, Lymphocytes # (Auto) 1.95, Monocytes # (Auto) 0.22, Eosinophils # (Auto) 0.10, Basophils # (Auto) 0.02 10/21/16 15:17 Test 10/21/16 15:17 10/21/16 16:17 White Blood Count 4.45 K/uL (4.8-10.8) Red Blood Count 4.14 M/uL (4.2-5.4) Hemoglobin 14.0 g/dL (12.0-16.0) Hematocrit 39.8 % (37-47) Mean Corpuscular Volume 96.1 fL (80-100) Mean Corpuscular Hemoglobin 33.8 pg (25-34) Mean Corpuscular Hemoglobin Concent 35.2 g/dl (32-36) Platelet Count 100 K/uL (130-400) Mean Platelet Volume 9.5 fL (7.4-10.4) Neutrophils (%) (Auto) 48.7 % Lymphocytes (%) (Auto) 43.8 % Monocytes (%) (Auto) 4.9 % Eosinophils (%) (Auto) 2.2 % Basophils (%) (Auto) 0.4 % Neutrophils # (Auto) 2.16 K/uL (1.4-6.5) Lymphocytes # (Auto) 1.95 K/uL (1.2-3.4) Monocytes # (Auto) 0.22 K/uL (0.11-0.59) Eosinophils # (Auto) 0.10 K/uL (0-0.5) Basophils # (Auto) 0.02 K/uL (0-0.2) RDW Standard Deviation 50.3 fL (36.4-46.3) RDW Coefficient of Variation 14.3 % (11.5-14.5) Immature Granulocyte % (Auto) 0.0 % Immature Granulocyte # (Auto) 0.00 K/uL (0.00-0.02) Prothrombin Time 13.0 SECONDS (9.0-12.0) Prothromb Time International Ratio 1.2 (0.9-1.1) Activated Partial Thromboplast Time 30.1 SECONDS (21.0-31.0) Partial Thromboplastin Ratio 1.2 D-Dimer 570 ug/L FEU (0-500) Anion Gap 7.0 mmol/L (3-11) Est Creatinine Clear Calc Drug Dose 99.3 ml/min Estimated GFR () 75.0 Estimated GFR (Non- 64.7 BUN/Creatinine Ratio 4.8 (10-20) Calcium Level 8.7 mg/dl (8.5-10.1) Total Bilirubin 0.7 mg/dl (0.2-1) Aspartate Amino Transf (AST/SGOT) 26 U/L (15-37) Alanine Aminotransferase (ALT/SGPT) 21 U/L (12-78) Alkaline Phosphatase 94 U/L (45-117) Troponin I < 0.015 ng/ml (0-0.045) Total Protein 6.4 gm/dl (6.4-8.2) Albumin 2.6 gm/dl (3.4-5.0) Globulin 3.8 gm/dl (2.5-4.0) Albumin/Globulin Ratio 0.7 (0.9-2) Beta-Hydroxybutyric Acid 0.79 mg/dL (0.2-2.81) Thyroid Stimulating Hormone (TSH) 94.100 uIu/ml (0.300-4.500) Urine Color YELLOW Urine Appearance CLEAR (CLEAR) Urine pH 6.5 (4.5-7.5) Urine Specific [place] 1.031 (1.000-1.030) Urine Protein NEG (NEG) Urine Glucose (UA) 3+ (NEG) Urine Ketones NEG (NEG) Urine Occult Blood 1+ (NEG) Urine Nitrite NEG (NEG) Urine Bilirubin NEG (NEG) Urine Urobilinogen NEG (NEG) Urine Leukocyte Esterase NEG (NEG) Urine WBC (Auto) 1-5 /hpf (0-5) Urine RBC (Auto) 5-10 /hpf (0-4) Urine Hyaline Casts (Auto) 0 /lpf (0-5) Urine Epithelial Cells (Auto) 5-10 /lpf (0-5) Urine Bacteria (Auto) NEG (NEG) Urine Yeast (Auto) PRESENT (NONE PRSENT) Medications Administered Medications (Trade) Dose Ordered Sig/Nelda Route Start Time Stop Time Status Last Admin Dose Admin Sodium Chloride 1,000 ml @ 200 mls/hr Q5H STAT IV 10/21/16 14:45 10/21/16 18:17 DC 10/21/16 15:27 200 MLS/HR Ondansetron HCl (Zofran Inj) 4 mg NOW STAT IV 10/21/16 15:51 10/21/16 15:52 DC 10/21/16 16:12 4 MG Insulin Human Regular (novoLIN-R U-100 PER UNIT) 5 units NOW STAT SC 10/21/16 16:56 10/21/16 16:57 DC 10/21/16 17:09 5 UNITS Levothyroxine Sodium (Synthroid Tab) 100 mcg ONE STAT PO 10/21/16 17:43 10/21/16 17:44 DC 10/21/16 17:58 100 MCG Procedure Patient was monitored on a radiation monitor. She did have sinus bradycardia. ECG Indication: abdominal pain Rate (beats per minute): 49 Rhythm: sinus bradycardia Findings: no acute ischemic change Change: no significant change ED Course The patient was seen and examined. Previous visits were reviewed. The patient does not have a fever or leukocytosis. She does not have any significant electrolyte abnormalities. Glucose is elevated at 375. The beta hydroxybutyric acid was not elevated. Troponin was not elevated. TSH was elevated at 94.1. The patient has not been compliant with her insulin or her Synthroid. Urinalysis suggests contamination. INR is 1.2. D-dimer was elevated. Chest x-ray was negative CTA of the chest was negative for PE The patient was hydrated with normal saline She was given 4 mg IV Zofran She was given 5 units of insulin She was given 100 g Synthroid The patient presents to the emergency department. She has been noncompliant with her medications. She has taken some of her medications that she found old prescriptions for and she states some she has been out of for a week and others for a month. She was seen here a few days ago with very similar complaints and at that time stated she would be able to fill her medications. Case management also evaluated her at that time. The patient presents again and states she will get her medications today because her roommate got paid and will be able to pick them up. She should follow-up with her family doctor for further evaluation and management. She should return with any worsening symptoms. The patient was also seen and examined by Dr. Morgan who agrees with the assessment and treatment plan. However, the patient refused to have Dr. Morgan involved in her care I did review the case with Dr. Lane. Medical Decision DIFFERENTIAL DIAGNOSIS: Aortic dissection, myocarditis, pericarditis, cervical disc disease, costochondritis, herpes zoster, rib fracture, pleuritis, pneumonia , pulmonary embolus, tension pneumothorax, anxiety disorder, somatoform disorder , choledocholithiasis, status, esophagitis, esophageal spasm, esophageal reflux , esophageal rupture, pancreatitis, peptic ulcer disease, cardiac ischemia, ST elevation [place], acute coronary syndrome, arrhythmia, coronary artery vasospasm. vavular heart disease, coronary artery disease, among others. Impression Primary Impression: Chest pain, atypical Additional Impressions: Medically noncompliant Hypothyroid Departure Information Dispostion Home / Self-Care Condition GOOD Referrals Agustina Cummings M.D. (PCP) Patient Instructions My [facility] [place] Additional Instructions Resume your medications as prescribed Return with worsening symptoms Problem Qualifiers
--- NOTE | 2016-10-21 15:03 | DIAGNOSTIC IMAGING REPORT ---
CHEST ONE VIEW PORTABLE CLINICAL HISTORY: chest tightness dyspnea COMPARISON STUDY: 07/07/2016 FINDINGS: Mild stable cardiomegaly. Diaphragms smooth. Lungs are clear. IMPRESSION: Mild cardiomegaly. Otherwise negative study Electronically signed by: Will Holder M.D. 10/21/2016 3:01 PM Dictated Date/Time: 10/21/2016 3:01 PM
[2016-10-21 15:31] LABS: BASO % 0.4 %; BASO ABS # 0.02 K/uL (0-0.2); COMPLETE YES; EOS % 2.2 %; HEMATOCRIT 39.8 % (37-47); LYMPH % 43.8 %; LYMPH ABS # 1.95 K/uL (1.2-3.4); MEAN CELL VOLUME 96.1 fL (80-100); MEAN CORPUSCULAR HEMOGLOBIN 33.8 pg (25-34); MEAN CORPUSCULAR HGB CONC 35.2 g/dl (32-36); MEAN PLATELET VOLUME 9.5 fL (7.4-10.4); MONO % 4.9 %; NEUT % 48.7 %; PLATELET COUNT 100 K/uL (130-400); RED BLOOD COUNT 4.14 M/uL (4.2-5.4); WHITE BLOOD COUNT 4.45 K/uL (4.8-10.8)
[2016-10-21 15:44] LABS: INR 1.2 (0.9-1.1); PARTIAL THROMBOPLASTIN RATIO 1.2
[2016-10-21] MEDS ORDERED: ONDANSETRON INJ 2 MG/ML 2 ML VIAL IV STA (15:51)
[2016-10-21 15:56] LABS: ALT/SGPT 21 U/L (12-78); AST/SGOT 26 U/L (15-37); BLOOD UREA NITROGEN 5 mg/dl (7-18); BUN/CREATININE RATIO 4.8 (10-20); CALCIUM 8.7 mg/dl (8.5-10.1); CARBON DIOXIDE 27 mmol/L (21-32); CHLORIDE 102 mmol/L (98-107); GLUCOSE 375 mg/dl (70-99); POTASSIUM 3.8 mmol/L (3.5-5.1); SODIUM 136 mmol/L (136-145)
[2016-10-21 16:26] LABS: URINE APPEARANCE CLEAR (CLEAR); URINE BILIRUBIN NEG (NEG); URINE COLOR YELLOW; URINE NITRITE NEG (NEG); URINE PH 6.5 (4.5-7.5); URINE SPECIFIC GRAVITY 1.031 (1.000-1.030); UROBILINOGEN NEG (NEG); ZZUR CULT IF INDIC CLEAN CATCH YES
[2016-10-21 16:30] LABS: MANUAL MICROSCOPIC REQUIRED? NO; REVIEW REQ? YES
[2016-10-21 16:48] LABS: ALB/GLOB RATIO 0.7 (0.9-2); ALKALINE PHOSPHATASE 94 U/L (45-117)
[2016-10-21] MEDS ORDERED: NovoLIN-R INSULIN PER UNIT CHARGE SC STA (16:56)
[2016-10-21] MEDS ORDERED: OPTIRAY 320 IV PRN (17:00)
[2016-10-21 17:09] LABS: BETA-HYDROXYBUTYRATE 0.79 mg/dL (0.2-2.81)
--- NOTE | 2016-10-21 17:13 | DIAGNOSTIC IMAGING REPORT ---
CT ANGIOGRAPHY OF THE CHEST, PULMONARY EMBOLUS PROTOCOL CLINICAL HISTORY: Chest tightness, chest pain and elevated d-dimer. History of deep venous thrombus. COMPARISON STUDY: Chest radiograph July 07, 2016 and October 21, 2016. TECHNIQUE: Following IV administration of 119 mL of Optiray-320, helical axial images of the chest were obtained utilizing the pulmonary embolus protocol. Maximal intensity projections and sagittal and coronal reformats were viewed on an independent 3D workstation. IV contrast was administered without complication. CT DOSE: 955.71 mGy.cm FINDINGS: No pulmonary emboli are identified. There is no evidence of thoracic aortic dissection. The heart is mildly enlarged. There is no pericardial effusion. No enlarged axillary, mediastinal or hilar lymph nodes are present. Note is made of a 2.2 x 1.6 cm exophytic right lobe thyroid nodule. There is no consolidation to suggest pneumonia. No pneumothorax or pleural effusions present. Bony thorax is unremarkable. Visualized portions the upper abdomen demonstrate a cirrhotic liver and splenomegaly. This appears unchanged since earlier abdominal CT's. Prominent upper abdominal lymph nodes are unchanged. IMPRESSION: 1. No pulmonary emboli identified. 2. No acute intrathoracic findings. 3. Mild cardiomegaly and moderate coronary artery calcification. 4. Cirrhosis with stable splenomegaly. Electronically signed by: Vini Alvarado M.D. 10/21/2016 5:12 PM Dictated Date/Time: 10/21/2016 5:02 PM
[2016-10-21] MEDS ORDERED: LEVOTHYROXINE 100 MCG TAB PO STA (17:43)
[2016-10-21 17:58] VITALS: BP 119/61; PULSE 51; O2SAT 97
[2016-12-29] MEDS ORDERED: PRLSR20 PO (13:52)
== END 2016-10-21 18:00 | disposition home or self-care (01) ==
LOC: C.EDB 13:50 → C.EDC 18:00
DX: R07.89 Other chest pain (principal); Z91.19 Patient's noncompliance with other medical treatment and regimen; E03.9 Hypothyroidism, unspecified; E87.6 Hypokalemia; J45.909 Unspecified asthma, uncomplicated; I10 Essential (primary) hypertension; F31.9 Bipolar disorder, unspecified; E11.9 Type 2 diabetes mellitus without complications; K21.9 Gastro-esophageal reflux disease without esophagitis; R73.9 Hyperglycemia, unspecified; R09.02 Hypoxemia; E66.01 Morbid (severe) obesity due to excess calories; G47.33 Obstructive sleep apnea (adult) (pediatric); Z83.3 Family history of diabetes mellitus; Z82.49 Family history of ischemic heart disease and other diseases of the circulatory system; Z87.891 Personal history of nicotine dependence; Z79.4 Long term (current) use of insulin; Z79.899 Other long term (current) drug therapy

== ENCOUNTER 2016-12-16 00:40 | Emergency (ER) | payer OTHER ==
[~2016-12-16] VITALS: Ht 160 cm; Wt 165.7 kg
[2016-12-16 00:50] VITALS: TEMP 36.7; Ht 160 cm; Wt 165.7 kg
--- NOTE | 2016-12-16 01:25 | EMERGENCY ROOM VISIT NOTE ---
History Report prepared by [place]: Emily Fonseca Under the Supervision of: Dr. Nic Joseph M.D. First contact with patient: 01:11 Chief Complaint: ABDOMINAL PAIN Stated Complaint: CELLULITIS Nursing Triage Summary: Pt reports abdominal pain in bilateral lower quadrants and abdominal skin cellulitis pain which is chronic which started 3 days ago. Pt also reporting nausea, no vomiting. Jerome diarrhea. Pain rated 8/10 in both abdominal skin and abdomen. History of Present Illness The patient is a 50 year old female who presents to the Emergency Room with complaints of constant abdominal pain starting 3 days ago. Notes lower abdominal skin is infected and that she has cellulitis. She notes that there is swelling and redness. Associated with nausea. Denies fevers, chills, vomiting, diarrhea, shob, cp, fall, injury nor other symptoms. Initially denies any medications for this, though after pointing out monitor tech sticker campbell on upper chest she admits she was at [facility] earlier and received Clinda, Diflucan and Dilaudid. Nothing makes abdominal pain better nor worse. Admits she did not yet fill rx for abx. Admits DMII but states BG has been stable. Source of History: patient Onset: three days ago Position: abdomen Timing: constant Associated Symptoms: + nausea, No fevers, No vomiting Note: Pt denies falls or injuries. Pt notes swelling Review of Systems See HPI for pertinent positives & negatives. A total of 10 systems reviewed and were otherwise negative. Past Medical & Surgical Medical Problems: (1) Abdominal pain (2) Abdominal pain (3) Abdominal pain (4) Abdominal wall cellulitis (5) Acute hypokalemia (6) Acute renal failure syndrome (7) Ankle pain (8) Asthma (9) Atypical syncope (10) Benign hypertension (11) Bipolar disorder (12) Bowel obstruction (13) Cellulitis (14) CELLULITIS ABDOMEN (15) Cellulitis and abscess of trunk (16) Chronic pain (17) Contusion of ankle (18) Contusion of periorbital region, left (19) Degenerative joint disease of spine (20) Dehydration (21) Dehydration (22) Depression (23) Diabetes mellitus type 2 (24) DM (diabetes mellitus screen) (25) Drug-seeking behavior (26) DVT (deep venous thrombosis) (27) Exacerbation of chronic back pain (28) Fall (29) Fracture of fourth metatarsal bone of left foot (30) Gastroesophageal reflux disease (31) Hepatic encephalopathy (32) Hernia of abdominal wall (33) Hyperglycemia (34) Hypokalemia (35) Hypokalemia (36) Hypokalemia (37) Hypokalemia (38) Hypothyroidism (39) Hypoxia (40) Incarcerated ventral hernia (41) Incisional irritation (42) Incisional pain (43) Inguinal lymphadenopathy (44) Insomnia (45) LUMBAGO (46) Migraine (47) Morbid obesity (48) Morbid obesity (49) Morbid obesity (50) Obstructive sleep apnea (51) Pain, dental (52) Renal colic on right side (53) Renal insufficiency (54) Renal insufficiency (55) SBO (small bowel obstruction) (56) Seroma, postoperative (57) Sleep apnea (58) Spinal stenosis (59) Supraumbilical hernia Surgical Problems: (1) H/O hernia repair (2) H/O knee surgery (3) H/O: hysterectomy (4) History of cholecystectomy (5) Hx of appendectomy Social History Problems: (1) Diabetic neuropathy Family History Cancer Diabetes mellitus Gallbladder disease Heart disease Hypertension Lung disease Social History Smoking Status: Current Every Day Smoker Alcohol Use: none Drug Use: none Marital Status: single, in relationship Housing Status: lives with family Occupation Status: unemployed, disabled Current/Historical Medications Scheduled Carvedilol (Coreg), 12.5 MG PO BID Duloxetine Hcl (Cymbalta), 60 MG PO QPM Escitalopram Oxalate (Lexapro), 20 MG PO QPM Insulin Aspart (Novolog Flexpen), UNITS SC TID Insulin Glargine (Lantus Solostar), 75 UNITS SQ BID Levothyroxine Sodium (Levothyroxine Sodium), 100 MCG PO QAM Ranitidine (Zantac), 300 MG PO QPM Warfarin Sodium (Coumadin), 5 MG PO DAILY AT 4PM Scheduled PRN Home O2 Therapy (Oxygen), 3 LITERS NA UD PRN for Shortness of Breath Prochlorperazine Maleate (Compazine), 5 MG PO TID PRN for Nausea Allergies Coded Allergies: Iodinated Diagnostic Agents (Verified Allergy, Intermediate, hives, ) Per patient she has had it since without problem (01/25/16 Ioversal given with no pretreats and no mention of rxn; also given Ioversal 11/26/06 with pretreats) Adhesives (Verified Allergy, Mild, RED RASH CAUSED BY PAPER TAPE, 10/21/16) Alprazolam (Verified Allergy, Unknown, MAKES LOOPY,DO AND SAY SILLY THINGS , 10/21/16) Metformin (Verified Allergy, Unknown, HANDS FEET FACE NUMB, 10/21/16) Vancomycin (Verified Adverse Reaction, Severe, renal failure, required dialysis x 3 MONTHS, 10/21/16) Methylparaben (Verified Adverse Reaction, Intermediate, FLUID RETENTION, ) Oxymorphone (Verified Adverse Reaction, Intermediate, FLUID RETENTION, ) Gabapentin (Verified Adverse Reaction, Mild, Aphasia/Speech impairments, ) Sulfa Antibiotics (Verified Adverse Reaction, Mild, GI SYMPTOMS, 10/21/16) Acetaminophen (Verified Adverse Reaction, Unknown, Liver problems., ) Codeine (Verified Adverse Reaction, Unknown, UPSET STOMACH, 10/21/16) Pregabalin (Verified Adverse Reaction, Unknown, Aphasia/Speech impairments , 10/21/16) Physical Exam Vital Signs Date Time Temp Pulse Resp B/P (MAP) Pulse Ox O2 Delivery O2 Flow Rate FiO2 12/16/16 02:23 59 20 140/87 97 Room Air 12/16/16 00:50 36.7 59 18 130/82 94 Room Air Physical Exam GENERAL: Patient is chronically ill appearing and in no acute distress. HEENT: No acute trauma, normocephalic atraumatic, mucous membranes moist, no nasal congestion, no scleral icterus. NECK: No stridor, no adenopathy, no meningismus, trachea is midline. LUNGS: No dyspnea. Clear to auscultation and equal bilaterally. No wheeze, no rhonchi. HEART: Regular rate and rhythm. No murmurs, rubs, gallops appreciated. ABDOMEN: Soft, bowel sounds positive, no masses appreciated, no peritonitis. Discoloration of lower pannus which is vaguely tender to palpation, no definitive erythema or warmth, no crepitus or fluctuance appreciated. BACK: No midline tenderness, no CVA tenderness EXTREMITIES: Normal motion all extremities, no cyanosis, no edema. NEUROLOGIC: Alert and oriented, no acute motor or sensory deficits, no focal weakness, cranial nerves grossly intact. SKIN: No rash, no jaundice, no diaphoresis. Medical Decision & Procedures Laboratory Results 12/16/16 01:20 Red Blood Count 3.61, Mean Corpuscular Volume 100.3, Mean Corpuscular Hemoglobin 33.2, Mean Corpuscular Hemoglobin Concent 33.1, Mean Platelet Volume 9.0, Neutrophils (%) (Auto) 57.2, Lymphocytes (%) (Auto) 33.6, Monocytes (%) ( Auto) 6.1, Eosinophils (%) (Auto) 2.7, Basophils (%) (Auto) 0.4, Neutrophils # ( Auto) 3.02, Lymphocytes # (Auto) 1.77, Monocytes # (Auto) 0.32, Eosinophils # ( Auto) 0.14, Basophils # (Auto) 0.02 12/16/16 01:20 Test 12/16/16 01:20 12/16/16 01:27 White Blood Count 5.27 K/uL (4.8-10.8) Red Blood Count 3.61 M/uL (4.2-5.4) Hemoglobin 12.0 g/dL (12.0-16.0) Hematocrit 36.2 % (37-47) Mean Corpuscular Volume 100.3 fL (80-100) Mean Corpuscular Hemoglobin 33.2 pg (25-34) Mean Corpuscular Hemoglobin Concent 33.1 g/dl (32-36) Platelet Count 117 K/uL (130-400) Mean Platelet Volume 9.0 fL (7.4-10.4) Neutrophils (%) (Auto) 57.2 % Lymphocytes (%) (Auto) 33.6 % Monocytes (%) (Auto) 6.1 % Eosinophils (%) (Auto) 2.7 % Basophils (%) (Auto) 0.4 % Neutrophils # (Auto) 3.02 K/uL (1.4-6.5) Lymphocytes # (Auto) 1.77 K/uL (1.2-3.4) Monocytes # (Auto) 0.32 K/uL (0.11-0.59) Eosinophils # (Auto) 0.14 K/uL (0-0.5) Basophils # (Auto) 0.02 K/uL (0-0.2) RDW Standard Deviation 54.3 fL (36.4-46.3) RDW Coefficient of Variation 14.8 % (11.5-14.5) Immature Granulocyte % (Auto) 0.0 % Immature Granulocyte # (Auto) 0.00 K/uL (0.00-0.02) Anion Gap 3.0 mmol/L (3-11) Est Creatinine Clear Calc Drug Dose 123.8 ml/min Estimated GFR () 95.4 Estimated GFR (Non- 82.3 BUN/Creatinine Ratio 15.0 (10-20) Calcium Level 8.4 mg/dl (8.5-10.1) Bedside Lactic Acid Venous 0.96 mmol/L (0.90-1.70) Laboratory results as reviewed by me. Medications Administered Medications (Trade) Dose Ordered Sig/Nelda Route Start Time Stop Time Status Last Admin Dose Admin Clindamycin HCl (Cleocin Cap) 450 mg ONE ONCE PO 12/16/16 02:30 12/16/16 02:31 DC 12/16/16 02:30 450 MG ED Course 0111: The patient was evaluated in room A11B. A complete history and physical exam was performed. 0207: The patient was seen at [facility] ED today for cellulitis and headaches. I was unable to get in touch with [facility] but her labs reveal WBC 4.4. They gave her Dilaudid and Zofran and started her Clindamycin and Diflucan 0230: Cleocin Cap 450 mg PO. 0241: Reevaluated the patient. Discussed results and discharge instructions: She verbalized understanding and agreement. The patient is ready for discharge. Medical Decision 50 yr old female well known to department for regular visits arrives for evaluation of lower abdominal cellulitis. She notes that she has worsening pain and redness of the area. On exam there is chronic skin darkening though I am unable to appreciate obvious cellulitis, though she makes clear it is infected. No fevers and besides saying she is nauseous her exam is benign. No evidence of crepitus nor fluctuance of lower abdomen. I not not feel she has intraabdominal infection. Her labs are unremarkable, as they were just a few hours earlier while she was in [facility] who have already started her on Clinda and Diflucan. Requesting dose of Clinda here as she has not yet filled Rx. There is no evidence of sepsis nor indication for IV abx nor admission at this time. She is stable and in no distress throughout ED stay, despite her stating she is having severe pain. Medication Reconcilliation Current Medication List: was personally reviewed by me Blood Pressure Screening Patient's blood pressure: Elevated blood pressure Blood pressure disposition: Elevated BP felt to be situational Impression Primary Impression: Abdominal wall cellulitis Additional Impression: Abdominal wall pain Scribe Attestation The scribe's documentation has been prepared under my direction and personally reviewed by me in its entirety. I confirm that the note above accurately reflects all work, treatment, procedures, and medical decision making performed by me. Departure Information Dispostion Home / Self-Care Referrals Agustina Cummings M.D. (PCP) Forms Call Back Authorization, HOME CARE DOCUMENTATION FORM, IMPORTANT VISIT INFORMATION Patient Instructions My [facility] Additional Instructions Please follow up with your primary care provider. Return if fevers, vomiting, worsening pain, increased redness or other concerns. Problem Qualifiers
[2016-12-16 01:31] LABS: BASO % 0.4 %; BASO ABS # 0.02 K/uL (0-0.2); COMPLETE YES; EOS % 2.7 %; HEMATOCRIT 36.2 % (37-47); LYMPH % 33.6 %; LYMPH ABS # 1.77 K/uL (1.2-3.4); MEAN CELL VOLUME 100.3 fL (80-100); MEAN CORPUSCULAR HEMOGLOBIN 33.2 pg (25-34); MEAN CORPUSCULAR HGB CONC 33.1 g/dl (32-36); MONO % 6.1 %; NEUT % 57.2 %; PLATELET COUNT 117 K/uL (130-400); RED BLOOD COUNT 3.61 M/uL (4.2-5.4); WHITE BLOOD COUNT 5.27 K/uL (4.8-10.8)
[2016-12-16 01:48] LABS: CALCIUM 8.4 mg/dl (8.5-10.1); CREATININE 0.82 mg/dl (0.60-1.20); POTASSIUM 3.7 mmol/L (3.5-5.1)
[2016-12-16 02:23] VITALS: BP 140/87; PULSE 59; O2SAT 97
[2016-12-16] MEDS ORDERED: CLINDAMYCIN HCL 150 MG CAP PO ONE (02:30)
[2016-12-29] MEDS ORDERED: PRLSR20 PO (13:52)
== END 2016-12-16 02:32 | disposition home or self-care (01) ==
LOC: C.EDB 00:41 → C.EDA 02:32
DX: L03.311 Cellulitis of abdominal wall (principal); J45.909 Unspecified asthma, uncomplicated; I10 Essential (primary) hypertension; F31.9 Bipolar disorder, unspecified; F32.9 Major depressive disorder, single episode, unspecified; M54.9 Dorsalgia, unspecified; G89.29 Other chronic pain; E11.43 Type 2 diabetes mellitus with diabetic autonomic (poly)neuropathy; E66.01 Morbid (severe) obesity due to excess calories; G47.33 Obstructive sleep apnea (adult) (pediatric); Z90.710 Acquired absence of both cervix and uterus; Z90.49 Acquired absence of other specified parts of digestive tract; F17.210 Nicotine dependence, cigarettes, uncomplicated; Z80.9 Family history of malignant neoplasm, unspecified; Z83.3 Family history of diabetes mellitus; Z82.49 Family history of ischemic heart disease and other diseases of the circulatory system; Z79.4 Long term (current) use of insulin; Z79.899 Other long term (current) drug therapy; Z79.01 Long term (current) use of 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s

== ENCOUNTER 2016-12-27 22:21 | Inpatient (IN) | payer OTHER ==
[~2016-12-27] VITALS: Ht 160 cm; Wt 162.0 kg
[~2016-12-27 22:21] MED LIST changes: -FEXO1TAB46 PO
[2016-12-27] MEDS ORDERED: SODIUM CHLORIDE 0.9% 1000ML 1,000 ML IV STA ×2 (22:29)
[2016-12-27] MEDS ORDERED: TRAMADOL HCL 50 MG TAB PO STA (22:38)
[2016-12-27] MEDS ORDERED: PANTOprazole INJ 80 MG in DEXTROSE 5% 100ML IV STA (22:45)
[2016-12-27] MEDS ORDERED: PANTOprazole INJ 40 MG in DEXTROSE 5% 100ML IV SCH (23:00)
--- NOTE | 2016-12-27 23:05 | DIAGNOSTIC IMAGING REPORT ---
CHEST ONE VIEW PORTABLE HISTORY: 51 years-old Female SOB acute shortness of breath with back pain. COMPARISON: Portable chest radiograph 10/21/2016 TECHNIQUE: Portable upright AP view of the chest FINDINGS: Cardiac silhouette is mildly enlarged. There is no pneumothorax, pleural effusion or focal airspace consolidation. Mild right hemidiaphragmatic elevation persists. The bones are grossly intact. IMPRESSION: Cardiomegaly without acute cardiopulmonary process. The above report was generated using voice recognition software. It may contain grammatical, syntax or spelling errors. Electronically signed by: Rancho Rees M.D. 12/27/2016 11:03 PM Dictated Date/Time: 12/27/2016 11:02 PM
[2016-12-27 23:06] LABS: BASO % 0.2 %; BASO ABS # 0.01 K/uL (0-0.2); COMPLETE YES; EOS % 2.4 %; HEMATOCRIT 33.2 % (37-47); IG% 0.9 %; LYMPH % 25.6 %; LYMPH ABS # 1.68 K/uL (1.2-3.4); MEAN CELL VOLUME 98.5 fL (80-100); MEAN CORPUSCULAR HEMOGLOBIN 33.5 pg (25-34); MONO % 9.9 %; PLATELET COUNT 150 K/uL (130-400); RED BLOOD COUNT 3.37 M/uL (4.2-5.4); WHITE BLOOD COUNT 6.55 K/uL (4.8-10.8)
[2016-12-27 23:25] LABS: INR 5.3 (0.9-1.1); PARTIAL THROMBOPLASTIN RATIO 2.8
[2016-12-27 23:31] LABS: ALT/SGPT 27 U/L (12-78); AST/SGOT 37 U/L (15-37); BLOOD UREA NITROGEN 11 mg/dl (7-18); BUN/CREATININE RATIO 11.9 (10-20); CALCIUM 8.6 mg/dl (8.5-10.1); CARBON DIOXIDE 26 mmol/L (21-32); CHLORIDE 104 mmol/L (98-107); CREATININE 0.91 mg/dl (0.60-1.20); GLUCOSE 275 mg/dl (70-99); POTASSIUM 4.1 mmol/L (3.5-5.1); SODIUM 138 mmol/L (136-145)
[2016-12-27 23:36] LABS: ALKALINE PHOSPHATASE 188 U/L (45-117); MAGNESIUM 1.8 mg/dl (1.8-2.4)
[2016-12-27] MEDS ORDERED: PHYTONADIONE 5 MG TAB PO STA (23:40)
[2016-12-28] VITALS (9 sets, daily range): BP systolic 91–147; BP diastolic 51–77; PULSE 54–76; TEMP 36.5–36.8; O2SAT 90–95; Ht 160 cm; Wt 162.0 kg
--- NOTE | 2016-12-28 | EMERGENCY ROOM VISIT NOTE ---
History First contact with patient: 22:26 Chief Complaint: BACK PAIN Stated Complaint: BACK PAIN, BLOODY STOOL History of Present Illness The patient is a 51 year old female who presents to the Emergency Room with complaints of black stool with bright red blood for the past day. Patient just finished clindamycin for abdominal wall cellulitis. Patient complains of mid back pain. 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 No recent INR checked. Patient denies diarrhea, chest pain, abdominal pain, fevers, weakness, nausea, vomiting, lethargy. Patient was a chronic source of breath. No history of blood transfusion. Patient states she tried to do a colonoscopy last year but they were unable to. Unsure of rectal bleeding in the past. Review of Systems See HPI for pertinent positives & negatives. A total of 10 systems reviewed and were otherwise negative. Past Medical/Surgical History Medical Problems: (1) Abdominal pain (2) Abdominal pain (3) Abdominal pain (4) Abdominal wall cellulitis (5) Acute hypokalemia (6) Acute renal failure syndrome (7) Ankle pain (8) Asthma (9) Atypical syncope (10) Benign hypertension (11) Bipolar disorder (12) Bowel obstruction (13) Cellulitis (14) CELLULITIS ABDOMEN (15) Cellulitis and abscess of trunk (16) Chronic pain (17) Contusion of ankle (18) Contusion of periorbital region, left (19) Degenerative joint disease of spine (20) Dehydration (21) Dehydration (22) Depression (23) Diabetes mellitus type 2 (24) DM (diabetes mellitus screen) (25) Drug-seeking behavior (26) DVT (deep venous thrombosis) (27) Exacerbation of chronic back pain (28) Fall (29) Fracture of fourth metatarsal bone of left foot (30) Gastroesophageal reflux disease (31) Hepatic encephalopathy (32) Hernia of abdominal wall (33) Hyperglycemia (34) Hypokalemia (35) Hypokalemia (36) Hypokalemia (37) Hypokalemia (38) Hypothyroidism (39) Hypoxia (40) Incarcerated ventral hernia (41) Incisional irritation (42) Incisional pain (43) Inguinal lymphadenopathy (44) Insomnia (45) LUMBAGO (46) Migraine (47) Morbid obesity (48) Morbid obesity (49) Morbid obesity (50) Obstructive sleep apnea (51) Pain, dental (52) Renal colic on right side (53) Renal insufficiency (54) Renal insufficiency (55) SBO (small bowel obstruction) (56) Seroma, postoperative (57) Sleep apnea (58) Spinal stenosis (59) Supraumbilical hernia Surgical Problems: (1) H/O hernia repair (2) H/O knee surgery (3) H/O: hysterectomy (4) History of cholecystectomy (5) Hx of appendectomy Social History Problems: (1) Diabetic neuropathy Family History Cancer Diabetes mellitus Gallbladder disease Heart disease Hypertension Lung disease Social History Smoking Status: Current Every Day Smoker Alcohol Use: none Drug Use: none Marital Status: single, in relationship Housing Status: lives with family Occupation Status: unemployed, disabled Current/Historical Medications Scheduled Carvedilol (Coreg), 12.5 MG PO BID Duloxetine Hcl (Cymbalta), 60 MG PO QPM Escitalopram Oxalate (Lexapro), 20 MG PO QPM Insulin Aspart (Novolog Flexpen), UNITS SC TID Insulin Glargine (Lantus Solostar), 75 UNITS SQ BID Levothyroxine Sodium (Levothyroxine Sodium), 100 MCG PO QAM Ranitidine (Zantac), 300 MG PO QPM Warfarin Sodium (Coumadin), 5 MG PO DAILY AT 4PM Scheduled PRN Home O2 Therapy (Oxygen), 3 LITERS NA UD PRN for Shortness of Breath Prochlorperazine Maleate (Compazine), 5 MG PO TID PRN for Nausea Physical Exam Vital Signs Date Time Temp Pulse Resp B/P (MAP) Pulse Ox O2 Delivery O2 Flow Rate FiO2 12/27/16 22:41 95 Room Air 12/27/16 22:24 36.8 77 20 143/87 95 Room Air Physical Exam VITALS: Vitals are noted on the nurse's note and reviewed by myself. Vital signs stable. GENERAL: White female, in no acute distress, nondiaphoretic, well-developed well -nourished. SKIN: The skin was without rashes, erythema, edema, or bruising. There is no tenting of the skin. Capillary reflex less than 2 seconds. HEAD: Normocephalic atraumatic. EARS: External auditory canals clear, tympanic membranes pearly [place] without erythema or effusion bilaterally. EYES: Pupils equal round and reactive to light and accommodation. Conjunctivae without injection, sclerae without icterus. Extraocular movements intact. NOSE: Patent, turbinates without inflammation or discharge. MOUTH: Mucous membranes moist. Pharynx without erythema or exudate. Uvula midline. Airway patent. Tongue does not deviate. NECK: Supple without nuchal rigidity. No lymphadenopathy. No thyromegaly. Cervical spine is nontender. No JVD. HEART: Regular rate and rhythm without murmurs gallops or rubs. LUNGS: Clear to auscultation bilaterally without wheezes, rales or rhonchi. No dullness to percussion. No retractions or accessory muscle use. ABDOMEN: Positive bowel sounds x 4. Normal tympanic percussion. Soft, protuberant, morbidly obese, nontender, without masses or organomegaly. Amaya sign negative. No guarding or rebound tenderness. No CVA tenderness Rectal exam: No fissures or tears, black stool, dark blood present, guaiac positive MUSCULOSKELETAL: No muscle atrophy, erythema, noted. Chronic venous stasis dermatitis to lower extremities and pannus NEURO: Patient was alert and oriented to person place and time. Normal sensation to light and sharp touch. No focal neurological deficits. Medical Decision & Procedures Laboratory Results 12/27/16 22:50 Red Blood Count 3.37, Mean Corpuscular Volume 98.5, Mean Corpuscular Hemoglobin 33.5, Mean Corpuscular Hemoglobin Concent 34.0, Mean Platelet Volume 9.0, Neutrophils (%) (Auto) 61.0, Lymphocytes (%) (Auto) 25.6, Monocytes (%) (Auto) 9.9, Eosinophils (%) (Auto) 2.4, Basophils (%) (Auto) 0.2, Neutrophils # (Auto) 3.99, Lymphocytes # (Auto) 1.68, Monocytes # (Auto) 0.65, Eosinophils # (Auto) 0.16, Basophils # (Auto) 0.01 12/27/16 22:50 Test 12/27/16 22:50 White Blood Count 6.55 K/uL (4.8-10.8) Red Blood Count 3.37 M/uL (4.2-5.4) Hemoglobin 11.3 g/dL (12.0-16.0) Hematocrit 33.2 % (37-47) Mean Corpuscular Volume 98.5 fL (80-100) Mean Corpuscular Hemoglobin 33.5 pg (25-34) Mean Corpuscular Hemoglobin Concent 34.0 g/dl (32-36) Platelet Count 150 K/uL (130-400) Mean Platelet Volume 9.0 fL (7.4-10.4) Neutrophils (%) (Auto) 61.0 % Lymphocytes (%) (Auto) 25.6 % Monocytes (%) (Auto) 9.9 % Eosinophils (%) (Auto) 2.4 % Basophils (%) (Auto) 0.2 % Neutrophils # (Auto) 3.99 K/uL (1.4-6.5) Lymphocytes # (Auto) 1.68 K/uL (1.2-3.4) Monocytes # (Auto) 0.65 K/uL (0.11-0.59) Eosinophils # (Auto) 0.16 K/uL (0-0.5) Basophils # (Auto) 0.01 K/uL (0-0.2) RDW Standard Deviation 54.8 fL (36.4-46.3) RDW Coefficient of Variation 15.3 % (11.5-14.5) Immature Granulocyte % (Auto) 0.9 % Immature Granulocyte # (Auto) 0.06 K/uL (0.00-0.02) Prothrombin Time 61.0 SECONDS (9.0-12.0) Prothromb Time International Ratio 5.3 (0.9-1.1) Activated Partial Thromboplast Time 72.0 SECONDS (21.0-31.0) Partial Thromboplastin Ratio 2.8 Anion Gap 8.0 mmol/L (3-11) Est Creatinine Clear Calc Drug Dose 108.6 ml/min Estimated GFR () 83.5 Estimated GFR (Non- 72.0 BUN/Creatinine Ratio 11.9 (10-20) Calcium Level 8.6 mg/dl (8.5-10.1) Magnesium Level 1.8 mg/dl (1.8-2.4) Total Bilirubin 1.0 mg/dl (0.2-1) Direct Bilirubin 0.4 mg/dl (0-0.2) Aspartate Amino Transf (AST/SGOT) 37 U/L (15-37) Alanine Aminotransferase (ALT/SGPT) 27 U/L (12-78) Alkaline Phosphatase 188 U/L (45-117) Troponin I < 0.015 ng/ml (0-0.045) Total Protein 6.8 gm/dl (6.4-8.2) Albumin 2.5 gm/dl (3.4-5.0) Lipase 41 U/L (73-393) Medications Administered Medications (Trade) Dose Ordered Sig/Nelda Route Start Time Stop Time Status Last Admin Dose Admin Sodium Chloride 1,000 ml @ 999 mls/hr Q1H1M STAT IV 12/27/16 22:29 12/27/16 23:29 DC 12/27/16 22:50 999 MLS/HR Sodium Chloride 1,000 ml @ 125 mls/hr Q8H STAT IV 12/27/16 22:29 12/28/16 06:28 12/27/16 22:50 125 MLS/HR Tramadol HCl (Ultram Tab) 50 mg ONE STAT PO 12/27/16 22:38 12/27/16 22:39 DC 12/27/16 22:49 50 MG Pantoprazole Sodium (Protonix IV Bolus/Drip) 1 ea NOW STAT IV 12/27/16 22:38 12/27/16 22:39 DC 12/27/16 23:24 1 EA Pantoprazole Sodium 80 mg/ Dextrose 120 ml @ 480 mls/hr NOW STAT IV 12/27/16 22:45 12/27/16 22:59 DC 12/27/16 23:00 480 MLS/HR Pantoprazole Sodium 40 mg/ Dextrose 100 ml @ 20 mls/hr Q5H IV 12/27/16 23:00 12/28/16 03:59 12/27/16 23:24 20 MLS/HR ED Course Prior records/ancillary studies reviewed. Triage Nursing notes reviewed. The patient's history was concerning for possible gastrointestinal bleeding. Differential diagnosis: Etiologies such as diverticulosis, AVM, coagulopathy, colitis, inflammatory bowel disease, malignancy, Negin-Vargas tear, esophagitis, peptic ulcer disease , variceal bleed, gastritis, epistaxis, fissure, hemorrhoids, as well as others were entertained. Physical exam: As above. The patients vital signs were stable. ER treatment provided: Protonix, IV fluids, Ultram On reassessment the patient felt better. Diagnostics interpreted by me: ECG: Normal sinus, poor baseline, right axis deviation, low voltage, no acute ST -T wave changes, EKG compared to prior EKG without acute changes noted. Impression normal sinus rhythm with low voltage right axis deviation interpreted by myself The labs revealed mild anemia, elevated INR. Negative troponin. Hyperglycemia without DKA Imaging studies: Chest x-ray with no acute consolidation, pneumothorax or free air per my interpretation Consultation: A consultation was placed with Dr. Cox and his resident hospitalist. The case was discussed and diagnostics were reviewed. The patient was evaluated in the ER for further treatment. This appears to be consistent with GI bleeding. Patient had black melanotic stool with dark blood clots on rectal exam and was started on Protonix and given vitamin K for supratherapeutic INR of 5. Patient denies heart valve. Patient is on Coumadin. She had black stool with dark blood clots. She was started on Protonix. She will be evaluated by medicine for possible admission. By the evaluation outlined above emergent etiologies such as esophageal perforation, variceal bleed, gastritis, epistaxis, as well as others were deemed relatively unlikely. The pt informed about the findings as listed above. All questions were answered and pleased with the treatment. Case reviewed with my attending Medical Decision as above Medication Reconcilliation Current Medication List: was personally reviewed by me Blood Pressure Screening Patient's blood pressure: Normal blood pressure Impression Primary Impression: GI bleed Additional Impressions: Supratherapeutic INR Anemia Departure Information Dispostion Being Evaluated By Hospitalist Condition FAIR Referrals Agustina Cummings M.D. (PCP) Patient Instructions My [facility] Problem Qualifiers Primary Impression: GI bleed GI bleed type/associated pathology: melena Qualified Codes: K92.1 - Melena
--- NOTE | 2016-12-28 00:20 | EMERGENCY ROOM VISIT NOTE ---
ED Visit Note First contact with patient: 22:26 Agree with the physician press assistant workup, patient's INR was treated with vitamin K, the patient will be admitted to the medical service for further evaluation of potential GI bleed Problem List Medical Problems: (1) Abdominal pain Status: Resolved (2) Abdominal pain Status: Resolved (3) Abdominal pain Status: Resolved (4) Abdominal wall cellulitis Status: Resolved (5) Acute hypokalemia Status: Resolved (6) Acute renal failure syndrome Status: Resolved (7) Ankle pain Status: Resolved (8) Asthma Status: Chronic (9) Atypical syncope Status: Resolved (10) Benign hypertension Status: Chronic (11) Bipolar disorder Status: Chronic (12) Bowel obstruction Status: Resolved (13) Cellulitis Status: Resolved (14) CELLULITIS ABDOMEN Status: Resolved (15) Cellulitis and abscess of trunk Status: Resolved (16) Chronic pain Status: Chronic (17) Contusion of ankle Status: Resolved (18) Contusion of periorbital region, left Status: Resolved (19) Degenerative joint disease of spine Status: Chronic (20) Dehydration Status: Resolved (21) Dehydration Status: Resolved (22) Depression Status: Chronic (23) Diabetes mellitus type 2 Status: Chronic (24) DM (diabetes mellitus screen) Status: Chronic (25) Drug-seeking behavior Status: Chronic (26) DVT (deep venous thrombosis) Status: Resolved (27) Exacerbation of chronic back pain Status: Resolved (28) Fall Status: Resolved (29) Fracture of fourth metatarsal bone of left foot Status: Resolved (30) Gastroesophageal reflux disease Status: Chronic (31) Hepatic encephalopathy Status: Resolved (32) Hernia of abdominal wall Status: Chronic (33) Hyperglycemia Status: Resolved (34) Hypokalemia Status: Resolved (35) Hypokalemia Status: Resolved (36) Hypokalemia Status: Resolved (37) Hypokalemia Status: Resolved (38) Hypothyroidism Status: Chronic (39) Hypoxia Status: Resolved (40) Incarcerated ventral hernia Status: Resolved (41) Incisional irritation Status: Resolved (42) Incisional pain Status: Resolved (43) Inguinal lymphadenopathy Status: Resolved (44) Insomnia Status: Chronic (45) LUMBAGO Status: Chronic (46) Migraine Status: Chronic (47) Morbid obesity Status: Resolved (48) Morbid obesity Status: Chronic (49) Morbid obesity Status: Chronic (50) Obstructive sleep apnea Status: Chronic (51) Pain, dental Status: Resolved (52) Renal colic on right side Status: Resolved (53) Renal insufficiency Status: Resolved (54) Renal insufficiency Status: Resolved (55) SBO (small bowel obstruction) Status: Resolved (56) Seroma, postoperative Status: Resolved (57) Sleep apnea Status: Resolved (58) Spinal stenosis Status: Chronic (59) Supraumbilical hernia Status: Chronic Surgical Problems: (1) H/O hernia repair Status: Chronic (2) H/O knee surgery Status: Resolved (3) H/O: hysterectomy Status: Resolved (4) History of cholecystectomy Status: Resolved (5) Hx of appendectomy Status: Resolved Social History Problems: (1) Diabetic neuropathy Status: Chronic Current/Historical Medications Scheduled Carvedilol (Coreg), 12.5 MG PO BID Duloxetine Hcl (Cymbalta), 60 MG PO QPM Escitalopram Oxalate (Lexapro), 20 MG PO QPM Insulin Aspart (Novolog Flexpen), UNITS SC TID Insulin Glargine (Lantus Solostar), 75 UNITS SQ BID Levothyroxine Sodium (Levothyroxine Sodium), 100 MCG PO QAM Ranitidine (Zantac), 300 MG PO QPM Warfarin Sodium (Coumadin), 5 MG PO DAILY AT 4PM Scheduled PRN Home O2 Therapy (Oxygen), 3 LITERS NA UD PRN for Shortness of Breath Prochlorperazine Maleate (Compazine), 5 MG PO TID PRN for Nausea Allergies Coded Allergies: Iodinated Diagnostic Agents (Verified Allergy, Intermediate, hives, 12/27/16 ) Per patient she has had it since without problem (01/25/16 Ioversal given with no pretreats and no mention of rxn; also given Ioversal 11/26/06 with pretreats) Adhesives (Verified Allergy, Mild, RED RASH CAUSED BY PAPER TAPE, 12/27/16) Alprazolam (Verified Allergy, Unknown, MAKES LOOPY,DO AND SAY SILLY THINGS , 12/27/16) Metformin (Verified Allergy, Unknown, HANDS FEET FACE NUMB, 12/27/16) Vancomycin (Verified Adverse Reaction, Severe, renal failure, required dialysis x 3 MONTHS, 12/27/16) Methylparaben (Verified Adverse Reaction, Intermediate, FLUID RETENTION, ) Oxymorphone (Verified Adverse Reaction, Intermediate, FLUID RETENTION, 12/27) Gabapentin (Verified Adverse Reaction, Mild, Aphasia/Speech impairments, ) Sulfa Antibiotics (Verified Adverse Reaction, Mild, GI SYMPTOMS, 12/27/16) Acetaminophen (Verified Adverse Reaction, Unknown, Liver problems., 12/27/16 ) Codeine (Verified Adverse Reaction, Unknown, UPSET STOMACH, 12/27/16) Pregabalin (Verified Adverse Reaction, Unknown, Aphasia/Speech impairments , 12/27/16) Vital Signs Date Time Temp Pulse Resp B/P (MAP) Pulse Ox O2 Delivery O2 Flow Rate FiO2 12/28/16 00:03 70 12/27/16 23:58 73 22 162/106 94 Room Air 12/27/16 22:41 95 Room Air 12/27/16 22:24 36.8 77 20 143/87 95 Room Air Laboratory Results 12/27/16 22:50 Red Blood Count 3.37, Mean Corpuscular Volume 98.5, Mean Corpuscular Hemoglobin 33.5, Mean Corpuscular Hemoglobin Concent 34.0, Mean Platelet Volume 9.0, Neutrophils (%) (Auto) 61.0, Lymphocytes (%) (Auto) 25.6, Monocytes (%) (Auto) 9.9, Eosinophils (%) (Auto) 2.4, Basophils (%) (Auto) 0.2, Neutrophils # (Auto) 3.99, Lymphocytes # (Auto) 1.68, Monocytes # (Auto) 0.65, Eosinophils # (Auto) 0.16, Basophils # (Auto) 0.01 12/27/16 22:50 Test 12/27/16 22:50 White Blood Count 6.55 K/uL (4.8-10.8) Red Blood Count 3.37 M/uL (4.2-5.4) Hemoglobin 11.3 g/dL (12.0-16.0) Hematocrit 33.2 % (37-47) Mean Corpuscular Volume 98.5 fL (80-100) Mean Corpuscular Hemoglobin 33.5 pg (25-34) Mean Corpuscular Hemoglobin Concent 34.0 g/dl (32-36) Platelet Count 150 K/uL (130-400) Mean Platelet Volume 9.0 fL (7.4-10.4) Neutrophils (%) (Auto) 61.0 % Lymphocytes (%) (Auto) 25.6 % Monocytes (%) (Auto) 9.9 % Eosinophils (%) (Auto) 2.4 % Basophils (%) (Auto) 0.2 % Neutrophils # (Auto) 3.99 K/uL (1.4-6.5) Lymphocytes # (Auto) 1.68 K/uL (1.2-3.4) Monocytes # (Auto) 0.65 K/uL (0.11-0.59) Eosinophils # (Auto) 0.16 K/uL (0-0.5) Basophils # (Auto) 0.01 K/uL (0-0.2) RDW Standard Deviation 54.8 fL (36.4-46.3) RDW Coefficient of Variation 15.3 % (11.5-14.5) Immature Granulocyte % (Auto) 0.9 % Immature Granulocyte # (Auto) 0.06 K/uL (0.00-0.02) Prothrombin Time 61.0 SECONDS (9.0-12.0) Prothromb Time International Ratio 5.3 (0.9-1.1) Activated Partial Thromboplast Time 72.0 SECONDS (21.0-31.0) Partial Thromboplastin Ratio 2.8 Anion Gap 8.0 mmol/L (3-11) Est Creatinine Clear Calc Drug Dose 108.6 ml/min Estimated GFR () 83.5 Estimated GFR (Non- 72.0 BUN/Creatinine Ratio 11.9 (10-20) Calcium Level 8.6 mg/dl (8.5-10.1) Magnesium Level 1.8 mg/dl (1.8-2.4) Total Bilirubin 1.0 mg/dl (0.2-1) Direct Bilirubin 0.4 mg/dl (0-0.2) Aspartate Amino Transf (AST/SGOT) 37 U/L (15-37) Alanine Aminotransferase (ALT/SGPT) 27 U/L (12-78) Alkaline Phosphatase 188 U/L (45-117) Troponin I < 0.015 ng/ml (0-0.045) Total Protein 6.8 gm/dl (6.4-8.2) Albumin 2.5 gm/dl (3.4-5.0) Lipase 41 U/L (73-393) Medications Administered Medications (Trade) Dose Ordered Sig/Nelda Route Start Time Stop Time Status Last Admin Dose Admin Sodium Chloride 1,000 ml @ 999 mls/hr Q1H1M STAT IV 12/27/16 22:29 12/27/16 23:29 DC 12/27/16 22:50 999 MLS/HR Sodium Chloride 1,000 ml @ 125 mls/hr Q8H STAT IV 12/27/16 22:29 12/28/16 06:28 12/27/16 22:50 125 MLS/HR Tramadol HCl (Ultram Tab) 50 mg ONE STAT PO 12/27/16 22:38 12/27/16 22:39 DC 12/27/16 22:49 50 MG Pantoprazole Sodium (Protonix IV Bolus/Drip) 1 ea NOW STAT IV 12/27/16 22:38 12/27/16 22:39 DC 12/27/16 23:24 1 EA Pantoprazole Sodium 80 mg/ Dextrose 120 ml @ 480 mls/hr NOW STAT IV 12/27/16 22:45 12/27/16 22:59 DC 12/27/16 23:00 480 MLS/HR Pantoprazole Sodium 40 mg/ Dextrose 100 ml @ 20 mls/hr Q5H IV 12/27/16 23:00 12/28/16 03:59 12/27/16 23:24 20 MLS/HR Departure Information Impression Primary Impression: GI bleed Additional Impressions: Supratherapeutic INR Anemia Dispostion Being Evaluated By Hospitalist Condition FAIR Referrals Agustina Cummings M.D. (PCP) Patient Instructions [facility] Problem Qualifiers
[2016-12-28 00:56] LABS: URINE APPEARANCE CLEAR (CLEAR); URINE BILIRUBIN NEG (NEG); URINE COLOR YELLOW; URINE NITRITE NEG (NEG); URINE PH 7.5 (4.5-7.5); URINE SPECIFIC GRAVITY 1.017 (1.000-1.030); UROBILINOGEN NEG (NEG); ZZUR CULT IF INDIC CLEAN CATCH NO
[2016-12-28 01:00] LABS: MANUAL MICROSCOPIC REQUIRED? NO; REVIEW REQ? NO
--- NOTE | 2016-12-28 01:40 | History and Physical ---
History & Physical Date & Time of Service: Dec 28, 2016 at 01:40 Chief Complaint: Back Pain, Bloody Stool Primary Care Physician: Agustina Cummings M.D. History of Present Illness Source: patient, family 51-year-old female with past medical history of asthma, hypertension, degenerative joint disease, depression, diabetes type 2, obstructive sleep apnea , bipolar disorder, DVT currently on Coumadin , morbid obesity presented to the ER with complaints of dark stool that started this morning. She had about 2 episodes of dark stool mixed with dark blood. She also complains of mid abdominal area pain, 5/10 in severity, nausea but denied any vomiting. She also complains of lower back pain which is constant, stabbing in nature, 9/10 in severity with no radiation. She stated that she has a history of DVT and PE about 10-12 years ago and was started on 5 mg Coumadin daily. She however has not been checking her INR the last 3 months. Denies any chest pains, shortness of breath or palpitations. Denies any fevers or chills. She continues to smoke half a pack of cigarettes per day. She was recently treated for abdominal wall cellulitis with clindamycin. He Past Medical/Surgical History Medical Problems: (1) Abdominal pain Status: Resolved (2) Abdominal pain Status: Resolved (3) Abdominal pain Status: Resolved (4) Abdominal wall cellulitis Status: Resolved (5) Acute hypokalemia Status: Resolved (6) Acute renal failure syndrome Status: Resolved (7) Ankle pain Status: Resolved (8) Asthma Status: Chronic (9) Atypical syncope Status: Resolved (10) Benign hypertension Status: Chronic (11) Bipolar disorder Status: Chronic (12) Bowel obstruction Status: Resolved (13) Cellulitis Status: Resolved (14) CELLULITIS ABDOMEN Status: Resolved (15) Cellulitis and abscess of trunk Status: Resolved (16) Chronic pain Status: Chronic (17) Contusion of ankle Status: Resolved (18) Contusion of periorbital region, left Status: Resolved (19) Degenerative joint disease of spine Status: Chronic (20) Dehydration Status: Resolved (21) Dehydration Status: Resolved (22) Depression Status: Chronic (23) Diabetes mellitus type 2 Status: Chronic (24) DM (diabetes mellitus screen) Status: Chronic (25) Drug-seeking behavior Status: Chronic (26) DVT (deep venous thrombosis) Status: Resolved (27) Exacerbation of chronic back pain Status: Resolved (28) Fall Status: Resolved (29) Fracture of fourth metatarsal bone of left foot Status: Resolved (30) Gastroesophageal reflux disease Status: Chronic (31) Hepatic encephalopathy Status: Resolved (32) Hernia of abdominal wall Status: Chronic (33) Hyperglycemia Status: Resolved (34) Hypokalemia Status: Resolved (35) Hypokalemia Status: Resolved (36) Hypokalemia Status: Resolved (37) Hypokalemia Status: Resolved (38) Hypothyroidism Status: Chronic (39) Hypoxia Status: Resolved (40) Incarcerated ventral hernia Status: Resolved (41) Incisional irritation Status: Resolved (42) Incisional pain Status: Resolved (43) Inguinal lymphadenopathy Status: Resolved (44) Insomnia Status: Chronic (45) LUMBAGO Status: Chronic (46) Migraine Status: Chronic (47) Morbid obesity Status: Resolved (48) Morbid obesity Status: Chronic (49) Morbid obesity Status: Chronic (50) Obstructive sleep apnea Status: Chronic (51) Pain, dental Status: Resolved (52) Renal colic on right side Status: Resolved (53) Renal insufficiency Status: Resolved (54) Renal insufficiency Status: Resolved (55) SBO (small bowel obstruction) Status: Resolved (56) Seroma, postoperative Status: Resolved (57) Sleep apnea Status: Resolved (58) Spinal stenosis Status: Chronic (59) Supraumbilical hernia Status: Chronic Surgical Problems: (1) H/O hernia repair Status: Chronic (2) H/O knee surgery Status: Resolved (3) H/O: hysterectomy Status: Resolved (4) History of cholecystectomy Status: Resolved (5) Hx of appendectomy Status: Resolved Social History Problems: (1) Diabetic neuropathy Status: Chronic Family History Cancer Diabetes mellitus Gallbladder disease Heart disease Hypertension Lung disease Social History Smoking Status: Current Every Day Smoker Smokeless Tobacco Use: No Alcohol Use: none Drug Use: none Marital Status: single, in relationship Housing status: other Occupational Status: unemployed, disabled Immunizations History of Influenza Vaccine: No Influenza Vaccine Date: Feb 20, 2011 History of Tetanus Vaccine?: 2009 Tetanus Immunization Date: Dec 21, 2005 History of Pneumococcal: Yes Pneumococcal Date: Feb 03, 2012 History of Hepatitis B Vaccine: No Multi-Drug Resistant Organisms History of MDRO: No Allergies Coded Allergies: Iodinated Diagnostic Agents (Verified Allergy, Intermediate, hives, 12/27/16 ) Per patient she has had it since without problem (01/25/16 Ioversal given with no pretreats and no mention of rxn; also given Ioversal 11/26/06 with pretreats) Adhesives (Verified Allergy, Mild, RED RASH CAUSED BY PAPER TAPE, 12/27/16) Alprazolam (Verified Allergy, Unknown, MAKES LOOPY,DO AND SAY SILLY THINGS , 12/27/16) Metformin (Verified Allergy, Unknown, HANDS FEET FACE NUMB, 12/27/16) Vancomycin (Verified Adverse Reaction, Severe, renal failure, required dialysis x 3 MONTHS, 12/27/16) Methylparaben (Verified Adverse Reaction, Intermediate, FLUID RETENTION, ) Oxymorphone (Verified Adverse Reaction, Intermediate, FLUID RETENTION, 12/27) Gabapentin (Verified Adverse Reaction, Mild, Aphasia/Speech impairments, ) Sulfa Antibiotics (Verified Adverse Reaction, Mild, GI SYMPTOMS, 12/27/16) Acetaminophen (Verified Adverse Reaction, Unknown, Liver problems., 12/27/16 ) Codeine (Verified Adverse Reaction, Unknown, UPSET STOMACH, 12/27/16) Pregabalin (Verified Adverse Reaction, Unknown, Aphasia/Speech impairments , 12/27/16) Home Medications Scheduled Carvedilol (Coreg), 12.5 MG PO BID Duloxetine Hcl (Cymbalta), 60 MG PO QPM Escitalopram Oxalate (Lexapro), 20 MG PO QPM Insulin Aspart (Novolog Flexpen), UNITS SC TID Insulin Glargine (Lantus Solostar), 75 UNITS SQ BID Levothyroxine Sodium (Levothyroxine Sodium), 100 MCG PO QAM Ranitidine (Zantac), 300 MG PO QPM Warfarin Sodium (Coumadin), 5 MG PO DAILY AT 4PM Scheduled PRN Home O2 Therapy (Oxygen), 3 LITERS NA UD PRN for Shortness of Breath Prochlorperazine Maleate (Compazine), 5 MG PO TID PRN for Nausea Review of Systems Constitutional: No fever, No chills Eyes: No worsening of vision ENT: No hearing loss Respiratory: No cough Cardiovascular: No chest pain Abdomen: + pain, + nausea, + GI bleeding (blackish stool) Genitourinary - Female: No dysuria, No urinary frequency, No urinary urgency Neurologic: No memory loss Psychiatric: No depression symptoms Endocrine: No fatigue Hematologic / Lymphatic: No abnormal bleeding/bruising Integumentary: No rash Allergic / Immunologic: No environmental allergies Physical Exam Vital Signs Date Time Temp Pulse Resp B/P (MAP) Pulse Ox O2 Delivery O2 Flow Rate FiO2 12/28/16 00:03 70 12/27/16 23:58 73 22 162/106 94 Room Air 12/27/16 22:41 95 Room Air 12/27/16 22:24 36.8 77 20 143/87 95 Room Air General Appearance: WD/WN, no apparent distress, + obese Eyes: normal inspection ENT: normal ENT inspection, hearing grossly normal Neck: supple Respiratory/Chest: chest non-tender, lungs clear, normal breath sounds, no respiratory distress, no accessory muscle use Abdomen/GI: normal bowel sounds Neurologic/Psych: alert, normal mood/affect, oriented x 3 Diagnostics Laboratory Results Results Past 24 Hours Test 12/27/16 22:50 12/28/16 00:40 Range/Units White Blood Count 6.55 4.8-10.8 K/uL Red Blood Count 3.37 4.2-5.4 M/uL Hemoglobin 11.3 12.0-16.0 g/dL Hematocrit 33.2 37-47 % Mean Corpuscular Volume 98.5 80-100 fL Mean Corpuscular Hemoglobin 33.5 25-34 pg Mean Corpuscular Hemoglobin Concent 34.0 32-36 g/dl Platelet Count 150 130-400 K/uL Mean Platelet Volume 9.0 7.4-10.4 fL Neutrophils (%) (Auto) 61.0 % Lymphocytes (%) (Auto) 25.6 % Monocytes (%) (Auto) 9.9 % Eosinophils (%) (Auto) 2.4 % Basophils (%) (Auto) 0.2 % Neutrophils # (Auto) 3.99 1.4-6.5 K/uL Lymphocytes # (Auto) 1.68 1.2-3.4 K/uL Monocytes # (Auto) 0.65 0.11-0.59 K/uL Eosinophils # (Auto) 0.16 0-0.5 K/uL Basophils # (Auto) 0.01 0-0.2 K/uL RDW Standard Deviation 54.8 36.4-46.3 fL RDW Coefficient of Variation 15.3 11.5-14.5 % Immature Granulocyte % (Auto) 0.9 % Immature Granulocyte # (Auto) 0.06 0.00-0.02 K/uL Prothrombin Time 61.0 9.0-12.0 SECONDS Prothromb Time International Ratio 5.3 0.9-1.1 Activated Partial Thromboplast Time 72.0 21.0-31.0 SECONDS Partial Thromboplastin Ratio 2.8 Sodium Level 138 136-145 mmol/L Potassium Level 4.1 3.5-5.1 mmol/L Chloride Level 104 98-107 mmol/L Carbon Dioxide Level 26 21-32 mmol/L Anion Gap 8.0 3-11 mmol/L Blood Urea Nitrogen 11 7-18 mg/dl Creatinine 0.91 0.60-1.20 mg/dl Est Creatinine Clear Calc Drug Dose 108.6 ml/min Estimated GFR () 83.5 Estimated GFR (Non- 72.0 BUN/Creatinine Ratio 11.9 10-20 Random Glucose 275 70-99 mg/dl Calcium Level 8.6 8.5-10.1 mg/dl Magnesium Level 1.8 1.8-2.4 mg/dl Total Bilirubin 1.0 0.2-1 mg/dl Direct Bilirubin 0.4 0-0.2 mg/dl Aspartate Amino Transf (AST/SGOT) 37 15-37 U/L Alanine Aminotransferase (ALT/SGPT) 27 12-78 U/L Alkaline Phosphatase 188 45-117 U/L Troponin I < 0.015 0-0.045 ng/ml Total Protein 6.8 6.4-8.2 gm/dl Albumin 2.5 3.4-5.0 gm/dl Lipase 41 73-393 U/L Urine Color YELLOW Urine Appearance CLEAR CLEAR Urine pH 7.5 4.5-7.5 Urine Specific [place] 1.017 1.000-1.030 Urine Protein NEG NEG Urine Glucose (UA) TRACE NEG Urine Ketones NEG NEG Urine Occult Blood NEG NEG Urine Nitrite NEG NEG Urine Bilirubin NEG NEG Urine Urobilinogen NEG NEG Urine Leukocyte Esterase NEG NEG Diagnostic Radiology CHEST ONE VIEW PORTABLE HISTORY: 51 years-old Female SOB acute shortness of breath with back pain. COMPARISON: Portable chest radiograph 10/21/2016 TECHNIQUE: Portable upright AP view of the chest FINDINGS: Cardiac silhouette is mildly enlarged. There is no pneumothorax, pleural effusion or focal airspace consolidation. Mild right hemidiaphragmatic elevation persists. The bones are grossly intact. IMPRESSION: Cardiomegaly without acute cardiopulmonary process. ULTRASOUND BILATERAL LOWER EXTREMITY VENOUS CLINICAL HISTORY: Back pain. Hematochezia. COMPARISON STUDY: Bilateral lower extremity venous ultrasound dated 04/26/2015. TECHNIQUE: Real-time, grayscale, and color Doppler sonography of the deep veins of the right and left lower extremity was performed from the inguinal crease to the calf. Compression and augmentation were utilized. FINDINGS: There is no sonographic evidence of deep venous thrombosis identified in the right or left lower extremity. The common femoral, superficial femoral, and popliteal veins are patent and normally compressible bilaterally. The greater saphenous vein and the profunda femoris vein at the junction with the common femoral vein are clear in both legs. The visualized calf veins are patent bilaterally. IMPRESSION: There is no sonographic evidence of deep venous thrombosis identified in the right or left lower extremity. Impression Assessment and Plan 51-year-old female with past medical history of asthma, hypertension, degenerative joint disease, depression, diabetes type 2, obstructive sleep apnea , bipolar disorder, DVT currently on Coumadin , morbid obesity presented to the ER with complaints of dark stool that started this morning. Acute GI bleeding: - Protonix 40 mg IV twice a day - Nothing by mouth - Gastroenterology consult for endoscopy Supratherapeutic INR: - INR on admission 5.3 - Received 5 mg by mouth vitamin K and 5 mg IV vitamin K -Hemoglobin on admission 11.3, H&H every 6 hours History of DVTs with PE - Venous Doppler ordered - Coumadin currently on hold considering GI bleed Depression/bipolar disorder - Continue Cymbalta and Lexapro Diabetes type 2: -Home dose Lantus with insulin sliding scale Hypertension: - Continue Coreg Hypothyroidism: - Continue Synthroid Chronic back pain: - The patient is a known drug seeker and is on No narcotics list - Pain control with Tylenol/lidocaine patch - Consider pain management consult DVT prophylaxis: SCDs DO NOT RESUSCITATE Disposition: Admitted to telemetry Attending Addendum: I have physically seen and examined this patient, have directed the resident's medical activities, and agree with the H&P as noted above with the following exceptions as noted. The patient is awake, alert and oriented 3, well-developed and well-nourished , normocephalic and atraumatic, lying in bed and in no acute distress. HEENT--PERRL, EOMI, mucous membranes and oropharynx dry. Neck--supple, no JVD or bruits, thyroid normal, trachea midline, no adenopathy. Heart--normal S1 and S2, no extra beats, no murmurs, rubs or gallops. Lungs--clear bilaterally with good air movement, no respiratory distress, no accessory muscle use. Abdomen--normal bowel sounds and soft, nontender and nondistended, no hernias or masses, obese. Extremities--no cyanosis, clubbing or edema. There are good distal pulses b/l. Dermatologic--normal skin turgor, normal color, warm and dry, no abnormal lymph nodes, no rash. Neurologic--cranial nerves II through XII grossly intact. Rheumatologic--normal range of motion, nontender, muscles and joints. Psychiatric--normal affect. Assessment and Plan: Acute GI bleeding-- Nothing by mouth Protonix 40 mg IV twice a day. Reverse INR of 5.3. Already received 5 mg by mouth vitamin K, will give 5 mg of IV vitamin K in addition. DVT/PE history-- Has been on Coumadin long-term, which will be held for GI bleeding. Order venous Dopplers, and if negative place on SCDs Diabetes mellitus-- Place on Accu-Cheks before meals and at bedtime with NovoLog coverage per scale. Reduce Lantus dose in 1/2 while nothing by mouth. Level of Care Telemetry Advanced Directives Existing Advance Directive: Yes Resuscitation Status DO NOT RESUSCITATE VTE Prophylaxis VTE Risk Assessment Done? Y/N: Yes Risk Level: High Given or contraindicated: SCD's, Contraindicated Resident Tracking Resident Involvement: Resident Care Provided Care Provided: Adult Hospital Medicine
[2016-12-28] MEDS ORDERED: HYDROmorphone INJ 0.5 MG/0.5 ML SYR IV STA (01:41)
[2016-12-28] MEDS ORDERED: ALUMINUM/MAGNESIUM/SIMETH (MAALOX MAX) 30 ML UDC PO PRN (01:45)
[2016-12-28] MEDS ORDERED: MAGNESIUM HYDROXIDE SUSP 30 ML UDC PO PRN (01:45)
[2016-12-28] MEDS ORDERED: PROCHLORPERAZINE MALEATE 5 MG TAB PO PRN (01:45)
[2016-12-28] MEDS ORDERED: PHYTONADIONE INJ 5 MG in SODIUM CHLORIDE 0.9% 50ML 50 ML IV STA (01:47)
[2016-12-28] MEDS ORDERED: GLUCAGON FOR INJ 1 MG VIAL SQ PRN (02:00)
[2016-12-28] MEDS ORDERED: GLUCOSE 10 TABS/TUBE PO PRN (02:00)
[2016-12-28] MEDS ORDERED: DEXTROSE 50% 50 ML SYR IV PRN (02:00)
[2016-12-28] MEDS ORDERED: GLUCOSE 40% GEL 15 GM TUBE PO PRN (02:00)
[2016-12-28] MEDS ORDERED: ACETAMINOPHEN 325 MG TAB PO PRN (02:00)
[2016-12-28] MEDS: LEVOTHYROXINE 100 MCG TAB PO SCH (06:00)
[2016-12-28 06:05] LABS: HEMATOCRIT 31.9 % (37-47); MEAN CORPUSCULAR HEMOGLOBIN 32.6 pg (25-34); MEAN CORPUSCULAR HGB CONC 32.6 g/dl (32-36); MEAN PLATELET VOLUME 8.7 fL (7.4-10.4); PLATELET COUNT 130 K/uL (130-400); RED BLOOD COUNT 3.19 M/uL (4.2-5.4); WHITE BLOOD COUNT 6.71 K/uL (4.8-10.8)
[2016-12-28 06:12] LABS: INR 3.1 (0.9-1.1); PROTHROMBIN TIME (PATIENT) 34.5 SECONDS (9.0-12.0)
[2016-12-28] MEDS: ONDANSETRON INJ 2 MG/ML 2 ML VIAL IV PRN ×2 (06:31→21:28)
[2016-12-28 06:41] LABS: BUN/CREATININE RATIO 12.6 (10-20); CALCIUM 8.8 mg/dl (8.5-10.1); CREATININE 0.82 mg/dl (0.60-1.20)
[2016-12-28 06:44] LABS: ALB/GLOB RATIO 0.6 (0.9-2)
[2016-12-28] MEDS: INSULIN ASPART 100 UNITS/ML 3 ML PEN SC SCH ×4 (07:00→20:48)
--- NOTE | 2016-12-28 07:03 | DIAGNOSTIC IMAGING REPORT ---
ULTRASOUND BILATERAL LOWER EXTREMITY VENOUS CLINICAL HISTORY: Back pain. Hematochezia. COMPARISON STUDY: Bilateral lower extremity venous ultrasound dated 04/26/2015. TECHNIQUE: Real-time, grayscale, and color Doppler sonography of the deep veins of the right and left lower extremity was performed from the inguinal crease to the calf. Compression and augmentation were utilized. FINDINGS: There is no sonographic evidence of deep venous thrombosis identified in the right or left lower extremity. The common femoral, superficial femoral, and popliteal veins are patent and normally compressible bilaterally. The greater saphenous vein and the profunda femoris vein at the junction with the common femoral vein are clear in both legs. The visualized calf veins are patent bilaterally. IMPRESSION: There is no sonographic evidence of deep venous thrombosis identified in the right or left lower extremity. Electronically signed by: Juan Doran M.D. 12/28/2016 7:02 AM Dictated Date/Time: 12/28/2016 7:01 AM
[2016-12-28] MEDS ORDERED: OXYCODONE/ACETAMINOPHEN 5-325 TAB PO PRN ×2 (07:30→11:30)
[2016-12-28] MEDS: CARVEDILOL 12.5 MG TAB PO SCH ×2 (08:05→20:37)
[2016-12-28] MEDS: LIDODERM (LIDOCAINE) PATCH 5% TD SCH (08:05)
[2016-12-28] MEDS ORDERED: INSULIN GLARGINE SOLOSTAR 100 UNITS/ML 3 ML PEN SQ SCH (09:00)
[2016-12-28] MEDS: PANTOprazole INJ 40 MG in SYRINGE 0 ML IV SCH ×2 (09:12→20:38)
[2016-12-28] MEDS: INSULIN GLARGINE SOLOSTAR 100 UNITS/ML 3 ML PEN SQ SCH ×2 (09:22→20:48)
--- NOTE | 2016-12-28 09:55 | Family Medicine Progress Note ---
Progress Note Date of Service Dec 28, 2016. Subjective Pt evaluation today including: conversation w/ patient, physical exam Pain: 6/10 back pain PO Intake: npo Voiding: no voiding problems Patient has a lot of distress about her back pain, she notes she does not feel like her pain is being taken serious and she is "being treated like a drug addict", this was after the pain regimen was discussed and she was agreeable to it PDMP was reviewed and she is not on scheduled narcotics however gets frequent short courses of oxycodone from multiple different providers she continues to suffer from black stools She states she was not going to coumadin clinic because they no longer visit her at home to get her INR tested and she is unable to reliably set up a van in order to get to coumadin clinic Constitutional: No fever Eyes: No worsening of vision ENT: No hearing loss Respiratory: No cough, No sputum, No wheezing, No shortness of breath, No dyspnea on exertion Cardiovascular: No chest pain Abdomen: + pain, No nausea, No vomiting, No diarrhea, No constipation, No GI bleeding Musculoskeletal: + muscle pain (lower back pain chronic ) Neurologic: No weakness, No balance problems Psychiatric: No depression symptoms Heme: No abnormal bleeding/bruising Endo: No fatigue Skin: No rash Medications Medications Administered Medications (Trade) Dose Ordered Sig/Nelda Route Start Time Stop Time Status Last Admin Dose Admin Sodium Chloride 1,000 ml @ 999 mls/hr Q1H1M STAT IV 12/27/16 22:29 12/27/16 23:29 DC 12/27/16 22:50 999 MLS/HR Sodium Chloride 1,000 ml @ 125 mls/hr Q8H STAT IV 12/27/16 22:29 12/28/16 03:34 DC 12/27/16 22:50 125 MLS/HR Tramadol HCl (Ultram Tab) 50 mg ONE STAT PO 12/27/16 22:38 12/27/16 22:39 DC 12/27/16 22:49 50 MG Pantoprazole Sodium (Protonix IV Bolus/Drip) 1 ea NOW STAT IV 12/27/16 22:38 12/27/16 22:39 DC 12/27/16 23:24 1 EA Pantoprazole Sodium 80 mg/ Dextrose 120 ml @ 480 mls/hr NOW STAT IV 12/27/16 22:45 12/27/16 22:59 DC 12/27/16 23:00 480 MLS/HR Pantoprazole Sodium 40 mg/ Dextrose 100 ml @ 20 mls/hr Q5H IV 12/27/16 23:00 12/28/16 03:59 DC 12/27/16 23:24 20 MLS/HR Phytonadione (Mephyton Tab) 5 mg NOW STAT PO 12/27/16 23:40 12/27/16 23:42 DC 12/28/16 00:19 5 MG Ondansetron HCl (Zofran Inj) 4 mg Q6H PRN IV 12/28/16 01:45 01/27/17 01:44 12/28/16 06:31 4 MG Carvedilol (Coreg Tab) 12.5 mg BID PO 12/28/16 09:00 01/27/17 08:59 12/28/16 08:05 12.5 MG Prochlorperazine Maleate (Compazine Tab) 5 mg TID PRN PO 12/28/16 01:45 01/27/17 01:44 12/28/16 09:12 5 MG Pantoprazole Sodium 40 mg/ Syringe 10 ml @ 5 mls/min DAILY@09,21 IV 12/28/16 09:00 01/27/17 08:59 12/28/16 09:12 5 MLS/MIN Phytonadione 5 mg/ Sodium Chloride 50.5 ml @ 101 mls/hr NOW STAT IV 12/28/16 01:47 12/28/16 02:16 DC 12/28/16 03:39 101 MLS/HR Lidocaine (Lidoderm Patch 5%) 1 patch QAM TD 12/28/16 09:00 01/27/17 08:59 12/28/16 08:05 1 PATCH Oxycodone/ Acetaminophen (Percocet 5-325mg Tab) 1 tab Q8H PRN PO 12/28/16 07:30 12/28/16 11:07 DC 12/28/16 08:06 1 TAB Insulin Glargine (Lantus Solostar Pen) 50 units BID SQ 12/28/16 09:00 01/27/17 08:59 12/28/16 09:22 50 UNITS Objective Vital Signs Date Time Temp Pulse Resp B/P (MAP) Pulse Ox O2 Delivery O2 Flow Rate FiO2 12/28/16 11:24 90 Room Air 12/28/16 11:01 36.7 59 16 107/67 (80) 90 Room Air 12/28/16 10:57 36.8 76 21 90 12/28/16 08:00 90 Room Air 12/28/16 07:01 36.8 76 21 120/75 (90) 90 Room Air 12/28/16 03:30 36.8 62 20 147/77 95 Room Air 12/28/16 02:00 71 22 155/90 95 Room Air 12/28/16 00:03 70 12/27/16 23:58 73 22 162/106 94 Room Air 12/27/16 22:41 95 Room Air 12/27/16 22:24 36.8 77 20 143/87 95 Room Air Physical Exam General Appearance: no apparent distress, + obese Eyes: normal inspection ENT: normal ENT inspection Neck: supple Respiratory/Chest: no respiratory distress, no accessory muscle use, + decreased breath sounds (bilat bases) Cardiovascular: regular rate, rhythm, no murmur Abdomen: normal bowel sounds, non tender, soft Extremities: normal inspection, no pedal edema, no calf tenderness Assessment and Plan 51-year-old female with past medical history of asthma, hypertension, degenerative joint disease, depression, diabetes type 2, obstructive sleep apnea , bipolar disorder, DVT currently on Coumadin , morbid obesity presented to the ER with complaints of dark stool that started this morning. 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: - INR on admission 5.3 - Received 5 mg by mouth vitamin K and 5 mg IV vitamin K and INR improved to 3.0 - Hemoglobin on admission 11.3, H&H every 6 hours however last two have been ~ 10 - coumadin is currently held - venous dopplers did not reveal any DVT Depression/bipolar disorder - Continue Cymbalta and Lexapro Diabetes type 2: -cont Lantus with insulin sliding scale Hypertension: - Continue Coreg Hypothyroidism: - Continue Synthroid Chronic back pain: - The patient is a known drug seeker and is on No narcotics list - Pain control with lidocaine patch and heat - Percocet 10 mg q 4h - Consider pain management consult as patient would benefit from a more scheduled half-way pain plan DVT prophylaxis: SCDs DO NOT RESUSCITATE Resident Physician Supervision Note: I interviewed and examined the patient. Discussed with Dr. Grey and agree with findings and plan as documented in the note. Any exceptions or clarifications are listed here: None Documented By: Branden Rubin back pain, abdominal pain persist. no current bleeding. no hematemesis vitals noted nad breathing unlabored no pallor or icterus b/l Lspine paraspinals high tone/tender/decreased ROM GI bleeding - hemodynamically stable. GI consult pending anticipate endoscopic workup low back pain - reviewed old records - Lspine CT from fall last year and today' s exam gives high suspicion that she has DJD/DDD + significant overlying muscular pain -- likely will require multimodal approach. for now utilize percocet prn but will want to discuss approach w pt once she's more stable otherwise as above Continued [facility] stay due to: other Discharge planning: uncertain
[2016-12-28] MEDS ORDERED: ACETAMINOPHEN IV 650 MG in EMPTY BAG 0 ML IV PRN (10:15)
[2016-12-28 11:43] LABS: HEMATOCRIT 30.6 % (37-47)
[2016-12-28] MEDS ORDERED: PHYTONADIONE INJ 5 MG in SODIUM CHLORIDE 0.9% 50ML 50 ML IV ONE (13:30)
--- NOTE | 2016-12-28 14:13 | Gastrointestinal Consultation ---
Gastrointestinal Consultation Date of Consultation: Dec 28, 2016 Attending Physician: Branden Rubin Consulting Physician: Carlos Jones Reason for Consultation: Rectal bleeding History of Present Illness Patient is a 51 year old female w PMHx of asthma, HTN, DJD, depression, DM II, RIMA, Bipolar, DVT, morbid obesity who presented to ED w c/o dark stools. She had 3 episodes of dark/black stools which breaks up to dark maroon color upon her flushing prior to admission. She has associated nausea, but no vomiting, no abd pain. She is on Coumadin for DVT, INR found to be 5 upon eval. She had been given Vit K 10mg, today's INR is 3.1. She his not on ASA or iron supplements. Denies NSAIDs uses. Hgb on admission was 11, today 10.6. No elevation of BUN. CMP otherwise unremarkable. She is hemodynamically stable. She had 2 more episodes of dark stools overnight, but none this AM. She had prior similar episodes of rectal bleeding before. Previous colonoscopies in 2012, 2015 showed hx of hemorrhoids, otherwise normal. Past Medical/Surgical History Medical Problems: (1) Abdominal contusion Status: Acute (2) Abdominal wall pain Status: Acute (3) Acute abdominal pain Status: Acute (4) Acute exacerbation of chronic low back pain Status: Acute (5) Acute flank pain Status: Acute (6) Acute generalized abdominal pain Status: Acute (7) Anemia Status: Acute (8) Anxiety Status: Acute (9) Asthma Status: Chronic (10) Back pain Status: Acute (11) Back pain Status: Acute (12) Back pain Status: Acute (13) Back pain Status: Acute (14) Benign hypertension Status: Chronic (15) Bipolar disorder Status: Chronic (16) Chronic pain Status: Chronic (17) Closed head injury Status: Acute (18) Contusion of left foot Status: Acute (19) Contusion of left knee Status: Acute (20) Contusion of multiple sites Status: Acute (21) Degenerative joint disease of spine Status: Chronic (22) Depression Status: Chronic (23) Diabetes mellitus type 2 Status: Chronic (24) Diabetes mellitus with hyperglycemia Status: Acute (25) Diabetes mellitus with hyperglycemia Status: Acute (26) Drug-seeking behavior Status: Chronic (27) Gastroesophageal reflux disease Status: Chronic (28) GI bleed Status: Acute (29) Headache Status: Acute (30) Hematuria Status: Acute (31) Hernia of abdominal wall Status: Chronic (32) Hyperammonemia Status: Acute (33) Hypothyroidism Status: Chronic (34) Hypothyroidism Status: Acute (35) Insomnia Status: Chronic (36) Insulin dependent type 2 diabetes mellitus, uncontrolled Status: Acute (37) LUMBAGO Status: Chronic (38) Migraine Status: Acute (39) Migraine Status: Chronic (40) Morbid obesity Status: Chronic (41) Morbid obesity Status: Chronic (42) Morbid obesity with BMI of 60.0-69.9, adult Status: Acute (43) Noncompliance with medication regimen Status: Acute (44) Obstructive sleep apnea Status: Chronic (45) Poorly controlled diabetes mellitus Status: Acute (46) Right flank pain Status: Acute (47) Spinal stenosis Status: Chronic (48) Suprapubic pain Status: Acute (49) Supratherapeutic INR Status: Acute (50) Supraumbilical hernia Status: Chronic (51) Syncope Status: Acute (52) Vaginal candidiasis Status: Acute Surgical Problems: (1) H/O hernia repair Status: Chronic Past Medical History: See above. Past Surgical History: Hernia repair, knee surgery, hysterectomy, cholecystectomy, appendectomy Family History Cancer Diabetes mellitus Gallbladder disease Heart disease Hypertension Lung disease Social History Smoking Status: Current Some Day Smoker Alcohol Use: none Drug Use: none Marital Status: single, in relationship Housing Status: lives with family Occupation Status: unemployed, disabled Allergies Coded Allergies: Iodinated Diagnostic Agents (Verified Allergy, Intermediate, hives, 12/27/16 ) Per patient she has had it since without problem (01/25/16 Ioversal given with no pretreats and no mention of rxn; also given Ioversal 11/26/06 with pretreats) Adhesives (Verified Allergy, Mild, RED RASH CAUSED BY PAPER TAPE, 12/27/16) Alprazolam (Verified Allergy, Unknown, MAKES LOOPY,DO AND SAY SILLY THINGS , 12/27/16) Metformin (Verified Allergy, Unknown, HANDS FEET FACE NUMB, 12/27/16) Vancomycin (Verified Adverse Reaction, Severe, renal failure, required dialysis x 3 MONTHS, 12/27/16) Methylparaben (Verified Adverse Reaction, Intermediate, FLUID RETENTION, ) Oxymorphone (Verified Adverse Reaction, Intermediate, FLUID RETENTION, 12/27) Gabapentin (Verified Adverse Reaction, Mild, Aphasia/Speech impairments, ) Sulfa Antibiotics (Verified Adverse Reaction, Mild, GI SYMPTOMS, 12/27/16) Acetaminophen (Verified Adverse Reaction, Unknown, Liver problems., 12/27/16 ) Codeine (Verified Adverse Reaction, Unknown, UPSET STOMACH, 12/27/16) Pregabalin (Verified Adverse Reaction, Unknown, Aphasia/Speech impairments , 12/27/16) Current Medications Home Meds and Scripts Medications Dose Route/Sig Max Daily Dose Days Date Category Dose Instructions Coreg (Carvedilol) 12.5 Mg Tab 12.5 Mg PO BID 07/13/15 Reported Coumadin (Warfarin Sodium) 5 Mg Tab 5 Mg PO DAILY AT 4PM 06/04/15 Reported DAILY AT 4PM Levothyroxine Sodium 100 Mcg Tab 100 Mcg PO QAM 04/21/15 Reported Lexapro (Escitalopram Oxalate) 20 Mg Tab 20 Mg PO QPM 04/16/15 Reported Compazine (Prochlorperazine Maleate) 5 Mg Tab 5 Mg PO TID PRN 04/16/15 Reported Lantus Solostar (Insulin Glargine) 100 Unit/Ml Inj 75 Units SQ BID 04/16/15 Reported Oxygen Gas 3 Liters NA UD PRN 08/28/14 Reported Novolog Flexpen (Insulin Aspart) 100 Units/Ml Inj Units SC TID 08/28/14 Reported COVERAGE DIRECTED BY FOLLOWING SLIDING SCALE: 150 - 199 2 UNITS 200 - 249 4 UNITS 250 - 299 8 UNITS 300 - 349 12 UNITS 350 - 399 18 UNITS 400 - 449 24 UNITS 450 - 499 30 UNITS Cymbalta (Duloxetine Hcl) 60 Mg Cap 60 Mg PO QPM 08/28/14 Reported Zantac (Ranitidine HCl) 300 Mg Tab 300 Mg PO QPM 02/24/09 Reported Review of Systems Constitutional: No fever, No chills Respiratory: No cough, No shortness of breath Cardiac: No chest pain Abdomen: + nausea, + GI bleeding, No pain, No vomiting Physical Exam Date Time Temp Pulse Resp B/P (MAP) Pulse Ox O2 Delivery O2 Flow Rate FiO2 12/28/16 11:24 90 Room Air 12/28/16 11:01 36.7 59 16 107/67 (80) 90 Room Air 12/28/16 10:57 36.8 76 21 90 9/5/17 08:00 90 Room Air 12/28/16 07:01 36.8 76 21 120/75 (90) 90 Room Air 12/28/16 03:30 36.8 62 20 147/77 95 Room Air 12/28/16 02:00 71 22 155/90 95 Room Air 12/28/16 00:03 70 12/27/16 23:58 73 22 162/106 94 Room Air 12/27/16 22:41 95 Room Air 12/27/16 22:24 36.8 77 20 143/87 95 Room Air General Appearance: no apparent distress, + obese Eyes: normal inspection, PERRL, EOMI Neck: supple, thyroid normal, trachea midline Respiratory/Chest: normal breath sounds, no respiratory distress, no accessory muscle use Cardiovascular: regular rate, rhythm, no gallop, no murmur Abdomen: normal bowel sounds, non tender, soft Extremities: normal inspection, no pedal edema, no calf tenderness Neurologic/Psych: alert, normal mood/affect, oriented x 3 Skin: normal color, no jaundice, no rash Laboratory Results Last 24 Hours Test 12/27/16 22:50 12/28/16 00:40 12/28/16 05:50 12/28/16 06:39 White Blood Count 6.55 K/uL 6.71 K/uL Red Blood Count 3.37 M/uL 3.19 M/uL Hemoglobin 11.3 g/dL 10.4 g/dL Hematocrit 33.2 % 31.9 % Mean Corpuscular Volume 98.5 fL 100.0 fL Mean Corpuscular Hemoglobin 33.5 pg 32.6 pg Mean Corpuscular Hemoglobin Concent 34.0 g/dl 32.6 g/dl Platelet Count 150 K/uL 130 K/uL Mean Platelet Volume 9.0 fL 8.7 fL Neutrophils (%) (Auto) 61.0 % Lymphocytes (%) (Auto) 25.6 % Monocytes (%) (Auto) 9.9 % Eosinophils (%) (Auto) 2.4 % Basophils (%) (Auto) 0.2 % Neutrophils # (Auto) 3.99 K/uL Lymphocytes # (Auto) 1.68 K/uL Monocytes # (Auto) 0.65 K/uL Eosinophils # (Auto) 0.16 K/uL Basophils # (Auto) 0.01 K/uL RDW Standard Deviation 54.8 fL 56.6 fL RDW Coefficient of Variation 15.3 % 15.6 % Immature Granulocyte % (Auto) 0.9 % Immature Granulocyte # (Auto) 0.06 K/uL Prothrombin Time 61.0 SECONDS 34.5 SECONDS Prothromb Time International Ratio 5.3 3.1 Activated Partial Thromboplast Time 72.0 SECONDS Partial Thromboplastin Ratio 2.8 Sodium Level 138 mmol/L 139 mmol/L Potassium Level 4.1 mmol/L 4.0 mmol/L Chloride Level 104 mmol/L 106 mmol/L Carbon Dioxide Level 26 mmol/L 28 mmol/L Anion Gap 8.0 mmol/L 5.0 mmol/L Blood Urea Nitrogen 11 mg/dl 10 mg/dl Creatinine 0.91 mg/dl 0.82 mg/dl Est Creatinine Clear Calc Drug Dose 108.6 ml/min 120.5 ml/min Estimated GFR () 83.5 94.7 Estimated GFR (Non- 72.0 81.7 BUN/Creatinine Ratio 11.9 12.6 Random Glucose 275 mg/dl 159 mg/dl Calcium Level 8.6 mg/dl 8.8 mg/dl Magnesium Level 1.8 mg/dl Total Bilirubin 1.0 mg/dl 0.9 mg/dl Direct Bilirubin 0.4 mg/dl Aspartate Amino Transf (AST/SGOT) 37 U/L 33 U/L Alanine Aminotransferase (ALT/SGPT) 27 U/L 23 U/L Alkaline Phosphatase 188 U/L 159 U/L Troponin I < 0.015 ng/ml Total Protein 6.8 gm/dl 6.4 gm/dl Albumin 2.5 gm/dl 2.4 gm/dl Lipase 41 U/L Urine Color YELLOW Urine Appearance CLEAR Urine pH 7.5 Urine Specific Downey 1.017 Urine Protein NEG Urine Glucose (UA) TRACE Urine Ketones NEG Urine Occult Blood NEG Urine Nitrite NEG Urine Bilirubin NEG Urine Urobilinogen NEG Urine Leukocyte Esterase NEG Globulin 4.0 gm/dl Albumin/Globulin Ratio 0.6 Hepatitis C Antibody Screen NEG Bedside Glucose 157 mg/dl Test 12/28/16 11:14 12/28/16 11:32 Hemoglobin 10.3 g/dL Hematocrit 30.6 % Bedside Glucose 161 mg/dl Impression Patient is a 51 year old female seen for dark, bloody stools w nausea but no abd pain, in setting of supratherapuetic INR on Coumadin. Hx of hemorrhoids on previous colonoscopy Hgb stable since admission, no signs of BUN elevation. Plan - Vit K 5mg IV x1 dose today; recheck PT/INR in AM. - Ok for CL diet today, but keep NPO after midnight - EGD eval tomorrow. - Monitor H/H and transfuse prn. I have seen, examined, and agree with the plan as outlined above by GILDA Viera. -No ongoing evidence of bleeding, likely similar to 2016
[2016-12-28] MEDS: OXYCODONE HCL IR 5 MG TAB (IMMEDIATE RELEASE) PO PRN ×2 (16:25→20:37)
[2016-12-28 16:52] LABS: HEMATOCRIT 30.2 % (37-47)
[2016-12-28] MEDS ORDERED: ESCITALOPRAM OXALATE 20 MG TAB PO SCH (21:00)
[2016-12-28] MEDS ORDERED: DULOXETINE HCL 60 MG CAP PO SCH (21:00)
[2016-12-29] VITALS: BP 117/69; PULSE 67; TEMP 36.8; O2SAT 94
[2016-12-29] MEDS: OXYCODONE HCL IR 5 MG TAB (IMMEDIATE RELEASE) PO PRN ×5 (00:33→16:42)
[2016-12-29] MEDS: ONDANSETRON INJ 2 MG/ML 2 ML VIAL IV PRN ×2 (02:59→16:41)
[2016-12-29] MEDS: LEVOTHYROXINE 100 MCG TAB PO SCH (04:34)
[2016-12-29 06:43] LABS: BASO % 0.3 %; BASO ABS # 0.02 K/uL (0-0.2); COMPLETE YES; EOS % 4.1 %; HEMATOCRIT 34.6 % (37-47); IG% 0.5 %; LYMPH % 28.7 %; LYMPH ABS # 2.15 K/uL (1.2-3.4); MEAN CELL VOLUME 102.4 fL (80-100); MEAN CORPUSCULAR HGB CONC 31.2 g/dl (32-36); MEAN PLATELET VOLUME 8.9 fL (7.4-10.4); MONO % 9.7 %; NEUT % 56.7 %; PLATELET COUNT 151 K/uL (130-400); RED BLOOD COUNT 3.38 M/uL (4.2-5.4)
[2016-12-29 07:10] LABS: INR 1.2 (0.9-1.1); PROTHROMBIN TIME (PATIENT) 13.2 SECONDS (9.0-12.0)
[2016-12-29 07:18] LABS: BUN/CREATININE RATIO 12.5 (10-20); CALCIUM 8.2 mg/dl (8.5-10.1); CREATININE 0.87 mg/dl (0.60-1.20); POTASSIUM 4.5 mmol/L (3.5-5.1)
[2016-12-29 07:21] LABS: ALB/GLOB RATIO 0.6 (0.9-2)
[2016-12-29] MEDS: CARVEDILOL 12.5 MG TAB PO SCH (08:05)
[2016-12-29 08:07] VITALS: BP 86/60; PULSE 58; TEMP 36.6; O2SAT 95
[2016-12-29] MEDS: LIDODERM (LIDOCAINE) PATCH 5% TD SCH (08:07)
[2016-12-29] MEDS: PANTOprazole INJ 40 MG in SYRINGE 0 ML IV SCH (08:07)
[2016-12-29 08:25] VITALS: O2SAT 90
[2016-12-29] MEDS: INSULIN ASPART 100 UNITS/ML 3 ML PEN SC SCH ×3 (08:36→17:36)
[2016-12-29] MEDS: INSULIN GLARGINE SOLOSTAR 100 UNITS/ML 3 ML PEN SQ SCH (08:39)
--- NOTE | 2016-12-29 08:46 | Clinical Documentation Query ---
AMANDA Neal : CLINICAL DOCUMENTATION QUERY Patient is a 51 year old female admitted for acute GI bleeding. INR noted to be 5.3 on admission. Recieved oral and IV vitamin K. Coumadin currently on hold. Patient admits to noncompliance with INR monitoring as she states she is "unable to reliably set up a van in order to get to coumadin clinic" In your clinical opinion is this patient being managed for: ( x ) GI bleed due to supratherapeutic INR/Coumadin use ( ) Not Agree ( ) Other explanation of clinical findings (Please Explain) ( ) Unable to determine (Please Define) ( ) Need to Discuss The medical record reflects the following clinical findings, treatment, and risk factors. Clinical Indicators: As above Treatment:oral and IV vitamin K. Coumadin currently on hold. GI consultation Risk Factors: Coumadin use, noncompliance with INR checks. Please clarify and document your clinical opinion in the progress notes and discharge summary. Terms such as "probable", "suspected", "likely", "questionable", "possible", or "still to be ruled out" are acceptable. IF IN AGREEMENT, YOU MUST DOCUMENT ABOVE DIAGNOSTIC STATEMENT IN DAILY PROGRESS NOTES AND DISCHARGE SUMMARY. This document is not part of the patient's record. Thank You, Flo Frances, MIKE [phone]
--- NOTE | 2016-12-29 10:57 | Gastroenterology Progress Note ---
Progress Note Date of Service: Dec 29, 2016 Subjective Pt evaluation today including: conversation w/ patient Feels well, one maroon BM, Blood count stable Medications Current Inpatient Medications Medications (Trade) Dose Ordered Sig/Nelda Route Start Time Stop Time Status Last Admin Dose Admin Al Hydrox/Mg Hydrox/Simethicone (Maalox Max Susp) 15 ml Q4H PRN PO 12/28/16 01:45 01/27/17 01:44 Magnesium Hydroxide (Milk Of Magnesia Susp) 30 ml Q12H PRN PO 12/28/16 01:45 01/27/17 01:44 Ondansetron HCl (Zofran Inj) 4 mg Q6H PRN IV 12/28/16 01:45 01/27/17 01:44 12/29/16 02:59 4 MG Carvedilol (Coreg Tab) 12.5 mg BID PO 12/28/16 09:00 01/27/17 08:59 12/28/16 20:37 12.5 MG Duloxetine HCl (Cymbalta Cap) 60 mg QPM PO 12/28/16 21:00 01/27/17 20:59 12/28/16 20:36 60 MG Levothyroxine Sodium (Synthroid Tab) 100 mcg DAILYBB PO 12/28/16 06:00 01/27/17 06:59 12/29/16 04:34 100 MCG Prochlorperazine Maleate (Compazine Tab) 5 mg TID PRN PO 12/28/16 01:45 01/27/17 01:44 12/28/16 09:12 5 MG Pantoprazole Sodium 40 mg/ Syringe 10 ml @ 5 mls/min DAILY@ IV 12/28/16 09:00 01/27/17 08:59 12/29/16 08:07 5 MLS/MIN Glucose (Glucose 40% Gel) 15-30 GRAMS 15 GRAMS... UD PRN PO 12/28/16 02:00 01/27/17 01:59 Glucose (Glucose Chew Tab) 4-8 Tablets 4 Tabl... UD PRN PO 12/28/16 02:00 01/27/17 01:59 Dextrose (Dextrose 50% 50ML Syringe) 25-50ML OF 50% DW IV FOR... UD PRN IV 12/28/16 02:00 01/27/17 01:59 Glucagon (Glucagon Inj) 1 mg UD PRN SQ 12/28/16 02:00 01/27/17 01:59 Acetaminophen (Tylenol Tab) 650 mg Q4H PRN PO 12/28/16 02:00 01/27/17 01:59 Lidocaine (Lidoderm Patch 5%) 1 patch QAM TD 12/28/16 09:00 01/27/17 08:59 12/29/16 08:07 1 PATCH Miscellaneous (Remove Lidoderm Patch) 1 ea DAILY@21 N/A 12/28/16 21:00 01/27/17 20:59 12/28/16 20:39 1 EA Insulin Aspart (novoLOG ASPART) SLIDING SCALE G... ACHS SC 12/28/16 07:00 01/27/17 06:59 12/28/16 20:48 2 UNITS Insulin Glargine (Lantus Solostar Pen) 50 units BID SQ 12/28/16 09:00 01/27/17 08:59 12/29/16 08:39 50 UNITS Acetaminophen 650 mg/Empty Bag 65 ml @ 260 mls/hr Q6H PRN IV 12/28/16 10:15 01/27/17 10:14 Oxycodone HCl (Roxicodone Immediate Rel Tab) 10 mg Q4H PRN PO 12/28/16 16:00 01/11/17 15:59 12/29/16 08:38 10 MG Objective Vital Signs Date Time Temp Pulse Resp B/P (MAP) Pulse Ox O2 Delivery O2 Flow Rate FiO2 12/29/16 10:42 36.7 58 18 127/67 (87) 97 Room Air 58 12/29/16 08:25 90 Room Air 12/29/16 08:15 Room Air 12/29/16 08:07 36.6 58 18 86/60 (69) 95 Room Air 12/29/16 00:30 Room Air 12/29/16 00:00 36.8 67 20 117/69 (85) 94 Room Air 12/28/16 19:50 61 12/28/16 19:50 62 105/72 (83) 12/28/16 16:00 93 Room Air 12/28/16 15:57 36.5 54 18 91/51 (64) 93 Room Air 12/28/16 11:24 90 Room Air 12/28/16 11:01 36.7 59 16 107/67 (80) 90 Room Air 12/28/16 10:57 36.8 76 21 90 Physical Exam General Appearance: WD/WN, + pertinent finding (pickwickian appearances) Respiratory/Chest: chest non-tender Cardiovascular: regular rate, rhythm Abdomen: normal bowel sounds Extremities: normal range of motion Neurologic/Psych: financial management analyst II-XII nml as tested, no motor/sensory deficits Laboratory Results Last 24 Hours Test 12/28/16 11:14 12/28/16 11:32 12/28/16 16:24 12/28/16 16:40 Hemoglobin 10.3 g/dL 10.3 g/dL Hematocrit 30.6 % 30.2 % Bedside Glucose 161 mg/dl 192 mg/dl Test 12/28/16 19:45 12/28/16 22:56 12/29/16 06:27 12/29/16 08:19 Bedside Glucose 193 mg/dl 87 mg/dl Hemoglobin 11.0 g/dL 10.8 g/dL Hematocrit 33.0 % 34.6 % White Blood Count 7.50 K/uL Red Blood Count 3.38 M/uL Mean Corpuscular Volume 102.4 fL Mean Corpuscular Hemoglobin 32.0 pg Mean Corpuscular Hemoglobin Concent 31.2 g/dl Platelet Count 151 K/uL Mean Platelet Volume 8.9 fL Neutrophils (%) (Auto) 56.7 % Lymphocytes (%) (Auto) 28.7 % Monocytes (%) (Auto) 9.7 % Eosinophils (%) (Auto) 4.1 % Basophils (%) (Auto) 0.3 % Neutrophils # (Auto) 4.25 K/uL Lymphocytes # (Auto) 2.15 K/uL Monocytes # (Auto) 0.73 K/uL Eosinophils # (Auto) 0.31 K/uL Basophils # (Auto) 0.02 K/uL RDW Standard Deviation 58.8 fL RDW Coefficient of Variation 15.8 % Immature Granulocyte % (Auto) 0.5 % Immature Granulocyte # (Auto) 0.04 K/uL Prothrombin Time 13.2 SECONDS Prothromb Time International Ratio 1.2 Sodium Level 140 mmol/L Potassium Level 4.5 mmol/L Chloride Level 107 mmol/L Carbon Dioxide Level 29 mmol/L Anion Gap 4.0 mmol/L Blood Urea Nitrogen 11 mg/dl Creatinine 0.87 mg/dl Est Creatinine Clear Calc Drug Dose 113.6 ml/min Estimated GFR () 88.2 Estimated GFR (Non- 76.1 BUN/Creatinine Ratio 12.5 Random Glucose 85 mg/dl Calcium Level 8.2 mg/dl Total Bilirubin 1.1 mg/dl Aspartate Amino Transf (AST/SGOT) 51 U/L Alanine Aminotransferase (ALT/SGPT) 28 U/L Alkaline Phosphatase 171 U/L Total Protein 6.7 gm/dl Albumin 2.6 gm/dl Globulin 4.1 gm/dl Albumin/Globulin Ratio 0.6 Assessment and Plan 51 yo with painless rectal bleeding without hemodynamic change Recent colonoscopy by Dr. Porter Plan for EGD today as some concern of melena darkish stool, however, Hb stable
[2016-12-29] MEDS ORDERED: MIDAZOLAM HCL 1 MG/ML 2ML VIAL ONE (11:01)
--- NOTE | 2016-12-29 11:22 | GI REPORT ---
Procedure Date: 12/29/2016 11:02 AM Procedure: Upper GI endoscopy Indications: Melena Medicines: General Anesthesia Complications: No immediate complications. Estimated blood loss: None. Estimated Blood Loss: Estimated blood loss: none. Procedure: Pre-Anesthesia Assessment: - Pre-Anesthesia Assessment: - Prior to the procedure, a History and Physical was performed, and patient medications, allergies and sensitivities were reviewed. The patient's tolerance of previous anesthesia was reviewed. Please see Intertwine for complete details. - The risks and benefits of the procedure and the sedation options and risks were discussed with the patient. All questions were answered and informed consent was obtained. - Patient identification and proposed procedure were verified prior to the procedure by the physician and the nurse. The procedure was verified in the pre-procedure area in the procedure room. After obtaining informed consent, the endoscope was passed carefully and meticuously under direct vision and only advanced when the lumen was clearly identified, C02 insuflation was utilized throughout the entirity of the procedure. Throughout the procedure, the patient's blood pressure, pulse, and oxygen saturations were monitored continuously. After obtaining informed consent, the endoscope was passed under direct vision. Throughout the procedure, the patient's blood pressure, pulse, and oxygen saturations were monitored continuously. The scope was introduced through the mouth, and advanced to the second part of duodenum. The upper GI endoscopy was accomplished without difficulty. The patient tolerated the procedure well. Findings: The examined esophagus was normal. One non-bleeding superficial gastric ulcer with a clean ulcer base (Benito Class III) was found in the prepyloric region of the stomach. The lesion was 4 mm in largest dimension. Biopsies were taken with a cold forceps for histology. The examined duodenum was normal. Impression: - Normal esophagus. - Non-bleeding gastric ulcer with a clean ulcer base (Benito Class III). Biopsied. - Normal examined duodenum. Recommendation: - Return patient to [facility] for possible discharge same day. - Use Prilosec (omeprazole) 40 mg PO BID for 2 months. - Repeat the upper endoscopy in 2 months for surveillance. Carlos Jones MD 12/29/2016 11:21:53 AM This report has been signed electronically. Note Initiated On: 12/29/2016 11:02 AM I attest to the content of the Intraoperative Record and orders documented therein, exceptions below
[2016-12-29] MEDS ORDERED: PROPOFOL IV EMULSION 10 MG/ML 20 ML VIAL IV ONE (11:26)
[2016-12-29] MEDS ORDERED: LIDOCAINE HCL 2% 2 ML VIAL (20MG/ML) ONE (11:26)
--- NOTE | 2016-12-29 11:49 | Anesthesiology Progress Note ---
Anesthesia Post Op Note Date & Time Dec 29, 2016 at 11:48 Vital Signs Pain Intensity: 0 Vital Signs Past 12 Hours Date Time Temp Pulse Resp B/P (MAP) Pulse Ox O2 Delivery O2 Flow Rate FiO2 12/29/16 11:37 62 16 108/73 (85) 94 Nasal Cannula 3 12/29/16 11:22 61 16 89/41 (57) 95 Mask 4 12/29/16 10:42 36.7 58 18 127/67 (87) 97 Room Air 58 12/29/16 08:25 90 Room Air 12/29/16 08:15 Room Air 12/29/16 08:07 36.6 58 18 86/60 (69) 95 Room Air 12/29/16 00:30 Room Air 12/29/16 00:00 36.8 67 20 117/69 (85) 94 Room Air Notes Mental Status: alert / awake / arousable, participated in evaluation Pt Amnestic to Procedure: Yes Nausea / Vomiting: adequately controlled Pain: adequately controlled Airway Patency, RR, SpO2: stable & adequate BP & HR: stable & adequate Hydration State: stable & adequate Anesthetic Complications: no major complications apparent
--- NOTE | 2016-12-29 12:25 | Discharge Instructions ---
Discharge Instructions Date of Service Dec 29, 2016. Admission Reason for Admission: Rectal Bleeding Discharge Discharge Diagnosis / Problem: Ulcer Discharge Goals Goal(s): Diagnostic testing, Therapeutic intervention Activity Recommendations Activity Limitations: resume your previous activity . Instructions / Follow-Up Instructions / Follow-Up You were admitted to the hospital for the evaluation of your bloody stools when your INR ( a level that reflects how thin your blood is) was high. A scope was done and revealed that you have a NON bleeding ulcer and a biopsy was taken. 1. NON bleeding ulcer in stomach - A prescription called Prilosec will be prescribed and you will take it for two months twice a day - There is a recommendation for a repeat scope to evaluate the ulcer in 2 months - the prescription has been sent to the pharmacy for you 2. History of clotting, coumadin use and elevated INR - As you just recently suffered from bloody stools while on coumadin we recommend that you hold off on using any 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s at least until you follow up with your PCP - As discussed there is an option for using Xarelto and the cost will be $3.75/ month if you decide to use this medication - You can discuss this further with your PCP 3. Chronic back pain - As discussed you would benefit from a more regimented care for your back with a provider from a pain clinic BUT ALSO someone who can provide you with what we call "manipulative medicine" This is a form of medicine that works on relaxing the stressed out muscle in your back and can take some time and frequent visits but can result in improved control of the back pain. There is a few chiropractors that are in [place] which can provide you with this practice and one includes Dr Prasad and his co workers. We recommend discussing this option further with your PCP Dr Cummings. We wish you well Veronica Grey Current Hospital Diet Patient's current hospital diet: Clear Liquid Diet Discharge Diet Recommended Diet: AHA Diet (Heart Healthy), Low Sodium Diet (2gm Na), Diabetes Type 2 Diet Pending Studies Studies pending at discharge: yes List of pending studies: Biopsy of stomach Medical Emergencies . Who to Call and When: Medical Emergencies: If at any time you feel your situation is an emergency, please call 911 immediately. . Non-Emergent Contact Non-Emergency issues call your: Primary Care Provider Call Non-Emergent contact if: temperature is above 101.5 Increasing blood in stool, vomiting blood . . "Provider Documentation" section prepared by Rossy Grey. . VTE Core Measure Inpt VTE Proph given/why not?: SCD's, Contraindicated [place] Drug Monitoring Program Search Results: patient reviewed within database (frequent scripts from multiple providers )
[2016-12-29] MEDS ORDERED: PRLSR20 PO ×2 (13:52)
--- NOTE | 2016-12-29 15:11 | Discharge Summary ---
Discharge Summary Date of Service Dec 29, 2016. (Rossy Grey MD) Discharge Summary Admission Date: Dec 28, 2016 at 01:40 Discharge Date: Dec 29, 2016 Discharge Disposition: Home with services Principal Diagnosis: gastric ulcer Problems/Secondary Diagnoses: (1) Asthma Status: Chronic (2) Benign hypertension Status: Chronic (3) Bipolar disorder Status: Chronic (4) Chronic pain Status: Chronic (5) Degenerative joint disease of spine Status: Chronic (6) Depression Status: Chronic (7) Diabetes mellitus type 2 Status: Chronic (8) Drug-seeking behavior Status: Chronic (9) Gastroesophageal reflux disease Status: Chronic (10) H/O hernia repair Status: Chronic (11) Hernia of abdominal wall Status: Chronic (12) Hypothyroidism Status: Chronic (13) Insomnia Status: Chronic (14) LUMBAGO Status: Chronic (15) Migraine Status: Chronic (16) Morbid obesity Status: Chronic (17) Morbid obesity Status: Chronic (18) Obstructive sleep apnea Status: Chronic (19) Spinal stenosis Status: Chronic (20) Supraumbilical hernia Status: Chronic Immunizations: Have You Had Influenza Vaccine: No Influenza Vaccine Date: Feb 20, 2011 History of Tetanus Vaccine?: 2009 Tetanus Immunization Date: Dec 21, 2005 History of Pneumococcal: Yes Pneumococcal Date: Feb 03, 2012 History of Hepatitis B Vaccine: No Procedures: EGD Consultations: Dr Robert Lawrence GI (Rossy Grey MD) Medication Reconciliation New Medications: Omeprazole (Prilosec) 20 Mg Capcr 40 MG PO BID for 60 Days, #240 CAP Continued Medications: Carvedilol (Coreg) 12.5 Mg Tab 12.5 MG PO BID Duloxetine Hcl (Cymbalta) 60 Mg Cap 60 MG PO QPM, CAP Escitalopram Oxalate (Lexapro) 20 Mg Tab 20 MG PO QPM Home O2 Therapy (Oxygen) Gas 3 LITERS NA UD PRN for Shortness of Breath Insulin Aspart (Novolog Flexpen) 100 Units/Ml Inj UNITS SC TID COVERAGE DIRECTED BY FOLLOWING SLIDING SCALE: 150 - 199 2 UNITS 200 - 249 4 UNITS 250 - 299 8 UNITS 300 - 349 12 UNITS 350 - 399 18 UNITS 400 - 449 24 UNITS 450 - 499 30 UNITS Insulin Glargine (Lantus Solostar) 100 Unit/Ml Inj 75 UNITS SQ BID Levothyroxine Sodium (Levothyroxine Sodium) 100 Mcg Tab 100 MCG PO QAM, TAB Prochlorperazine Maleate (Compazine) 5 Mg Tab 5 MG PO TID PRN for Nausea, TAB Discontinued Medications: Ranitidine (Zantac) 300 Mg Tab 300 MG PO QPM, 0 Refills Warfarin Sodium (Coumadin) 5 Mg Tab 5 MG PO DAILY AT 4PM, TAB DAILY AT 4PM Discharge Exam Patient has not had any more bloody stools We discussed xarelto vs coumadin in the future and patient reflective understanding Also discussed manipulative medicine for back pain and patient is agreeable to try this method discussed discharge and patient agreeable, questions were answered Review of Systems: Constitutional: No fever, No chills Eyes: No worsening of vision ENT: No hearing loss Respiratory: No cough, No sputum, No wheezing, No shortness of breath, No dyspnea on exertion, No dyspnea at rest Cardiovascular: No chest pain Abdomen: No pain, No nausea, No vomiting, No diarrhea, No constipation, No GI bleeding Musculoskeletal: + muscle pain (lower back pain, chronic), No joint pain Genitourinary - Female: No dysuria, No hematuria Neurologic: + weakness, + balance problems, No numbness/tingling Psychiatric: No depression symptoms Endocrine: + fatigue Hematologic / Lymphatic: No abnormal bleeding/bruising Integumentary: No rash Physical Exam: General Appearance: no apparent distress, + obese (morbid) Eyes: normal inspection ENT: normal ENT inspection Neck: supple Respiratory/Chest: no respiratory distress, no accessory muscle use, + decreased breath sounds (bilat bases) Cardiovascular: regular rate, rhythm, no murmur, normal peripheral pulses Abdomen / GI: normal bowel sounds, non tender, soft Neurologic/Psychiatric: alert, normal mood/affect, oriented x 3 Skin: normal color, warm/dry, no rash Lymphatic: no adenopathy (Rossy Grey MD) Hospital Course 51-year-old female with past medical history of asthma, hypertension, degenerative joint disease, depression, diabetes type 2, obstructive sleep apnea , bipolar disorder, DVT currently on Coumadin , morbid obesity presented to the ER with complaints of dark stool that started the morning of admission. The patient's INR was found to be supratherapeutic at 5.3 and received Vit K for treatment as patient was actively suffering from melena/ bloody stools. Hemoglobin remained stable throughout admission and INR normalized. Patient was found to have a non bleeding gastric ulcer and recommendations from GI as below. 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: - INR on admission 5.3 - Received 5 mg by mouth vitamin K and 5 mg IV vitamin K and INR improved to 3.0 - Coumadin has been held for now - confirmed with pharmacy that patient would pay $3.75/ month for Xarelto - recommend repeat CBC and INR in a week - restart anticoag when medically warranted - venous dopplers did not reveal any DVT Depression/bipolar disorder - Continued Cymbalta and Lexapro - we recommend for improved pain control to consider increasing Cymbalta from 60 to 120 mg daily Diabetes type 2: -cont Lantus with insulin sliding scale Hypertension: - Continued Coreg Hypothyroidism: - Continued Synthroid Chronic back pain: - The patient is a known drug seeker and is on No narcotics list in the ED - Pain control with lidocaine patch and heat and did receive Oxycodone while in the hospital; threatened to leave AMA if pain was not adequately controlled - pain management consult - we did discuss in detail the importance of additionally undergoing manipulative medicine with Chiropractics for true control , patient was agreeable DVT prophylaxis: SCDs DO NOT RESUSCITATE Total Time Spent: Less than 30 minutes This includes examination of the patient, discharge planning, medication reconciliation, and communication with other providers. (Rossy Grey MD) Resident Physician Supervision Note: I interviewed and examined the patient. Discussed with Dr. Grey and agree with findings and plan as documented in the note. Any exceptions or clarifications are listed here: None Documented By: Branden Rubin feeling ok to go home. extensive discussions on back pain. 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 (Rossy Grey MD) Additional Copies To Agustina Cummings M.D.
[2016-12-29 15:42] VITALS: BP 86/52; PULSE 61; TEMP 36.5; O2SAT 92
[2016-12-29 16:40] VITALS: BP 104/71
[2016-12-29 17:50] VITALS: BP 104/71; PULSE 61; TEMP 36.5; O2SAT 92
[2016-12-29] MEDS ORDERED: PANTOprazole SOD 40 MG TAB PO SCH (21:00)
[2017-01-09] MEDS ORDERED: INSDGIPEN SQ ×2 (19:09)
[2017-01-09] MEDS ORDERED: PROC5TAB PO ×2 (19:09)
[2017-01-09] MEDS ORDERED: ESCI1TAB10 PO ×2 (19:09)
[2017-01-09] MEDS ORDERED: CARV12.52 PO ×2 (19:15)
[2017-01-09] MEDS ORDERED: DULO60CA44 PO ×2 (20:25)
[2017-01-09] MEDS ORDERED: NVLGI/PEN SC ×2 (20:31)
[2017-01-09] MEDS ORDERED: OXGN ×2 (20:37)
== END 2016-12-29 18:25 | disposition home health service (06) | DRG 813 ==
LOC: C.EDB 22:23 → C.2T 12-28 01:40 → ENRESERV 12-28 01:49 → C.MS2W 12-28 10:59
PROVIDERS: ADMIT Family Medicine; ATTEND Family Medicine
PROC: 0DB68ZX Excision of Stomach, Via Natural or Artificial Opening Endoscopic, Diagnostic (ICD-10-PCS; principal; 2016-12-29 10:40)
DX: D68.32 Hemorrhagic disorder due to extrinsic circulating 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s (principal); K25.0 Acute gastric ulcer with hemorrhage; Z68.44 Body mass index [BMI] 60.0-69.9, adult; M54.9 Dorsalgia, unspecified; J45.909 Unspecified asthma, uncomplicated; I10 Essential (primary) hypertension; E11.9 Type 2 diabetes mellitus without complications; Z86.718 Personal history of other venous thrombosis and embolism; Z83.3 Family history of diabetes mellitus; F17.200 Nicotine dependence, unspecified, uncomplicated; Z79.4 Long term (current) use of insulin; F31.9 Bipolar disorder, unspecified; E66.01 Morbid (severe) obesity due to excess calories; M19.90 Unspecified osteoarthritis, unspecified site; Z79.01 Long term (current) use of 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s; G47.33 Obstructive sleep apnea (adult) (pediatric)

== ENCOUNTER 2016-12-31 02:51 | Emergency (ER) | payer OTHER ==
[~2016-12-31] VITALS: Ht 160 cm; Wt 166.5 kg
[~2016-12-31 02:51] MED LIST changes: +PRLSR20 PO
[2016-12-31 02:58] VITALS: Ht 160 cm; Wt 166.5 kg
[2016-12-31] MEDS ORDERED: PANTOprazole SOD 40 MG TAB PO STA (03:15)
[2016-12-31] MEDS ORDERED: LIDOCAINE HCL 2% VISC SOLN 20 ML UDC PO STA (03:15)
[2016-12-31] MEDS ORDERED: ALUMINUM/MAGNESIUM SUSP 30 ML UDC PO STA (03:15)
[2016-12-31] MEDS ORDERED: ONDANSETRON 4MG OD TAB PO ONE (04:15)
[2016-12-31 04:16] LABS: BASO % 0.4 %; BASO ABS # 0.02 K/uL (0-0.2); COMPLETE YES; EOS % 3.3 %; HEMATOCRIT 32.1 % (37-47); IG% 0.4 %; LYMPH % 31.2 %; LYMPH ABS # 1.72 K/uL (1.2-3.4); MEAN CELL VOLUME 102.2 fL (80-100); MEAN CORPUSCULAR HGB CONC 34.3 g/dl (32-36); MEAN PLATELET VOLUME 9.3 fL (7.4-10.4); MONO % 6.5 %; NEUT % 58.2 %; PLATELET COUNT 139 K/uL (130-400); RED BLOOD COUNT 3.14 M/uL (4.2-5.4); WHITE BLOOD COUNT 5.51 K/uL (4.8-10.8)
[2016-12-31 04:41] LABS: ALT/SGPT 29 U/L (12-78); BLOOD UREA NITROGEN 13 mg/dl (7-18); BUN/CREATININE RATIO 11.7 (10-20); CALCIUM 8.5 mg/dl (8.5-10.1); CARBON DIOXIDE 25 mmol/L (21-32); CHLORIDE 107 mmol/L (98-107); GLUCOSE 289 mg/dl (70-99); SODIUM 138 mmol/L (136-145)
[2016-12-31 04:42] LABS: ALKALINE PHOSPHATASE 169 U/L (45-117)
[2016-12-31 05:10] VITALS: TEMP 36.9
--- NOTE | 2016-12-31 05:11 | EMERGENCY ROOM VISIT NOTE ---
History First contact with patient: 03:04 Chief Complaint: ABDOMINAL PAIN Stated Complaint: ABDOMINAL PAIN Nursing Triage Summary: pt brought to main ED from home for abdominal pain. reports she was seen and admitted Tuesday to Tuesday for blood in stool and dx with bleeding ulcer. pt states pain is worse today, right abdominal and radiating into back. pt associates nausea. denies diarrhea/urinary symptoms. pt reports "I'm stil passing blood in my stool." pt alert and oriented x4. pt able to ambulate from EMS stretcher to litter. pt breathing WNL. History of Present Illness The patient is a 51 year old female who presents to the Emergency Room with complaints of ongoing epigastric pain and bloody stool for the past several days that was admitted by myself a few days ago for GI bleed who was on Coumadin and no longer is. Patient had an endoscopy while in the hospital that showed a gastric ulcer that is not bleeding. Patient was advised take a PPI 40 mg twice a day but did not fill his prescription. Patient describes the pain as aching, ranging in severity 8 out of 10. Nothing makes it better or worse. Patient denies chest pain, dyspnea, fever, chills, vomiting, diarrhea. Review of Systems See HPI for pertinent positives & negatives. A total of 10 systems reviewed and were otherwise negative. Past Medical/Surgical History Medical Problems: (1) Abdominal pain (2) Abdominal pain (3) Abdominal pain (4) Abdominal wall cellulitis (5) Acute hypokalemia (6) Acute renal failure syndrome (7) Ankle pain (8) Asthma (9) Atypical syncope (10) Benign hypertension (11) Bipolar disorder (12) Bowel obstruction (13) Cellulitis (14) CELLULITIS ABDOMEN (15) Cellulitis and abscess of trunk (16) Chronic pain (17) Contusion of ankle (18) Contusion of periorbital region, left (19) Degenerative joint disease of spine (20) Dehydration (21) Dehydration (22) Depression (23) Diabetes mellitus type 2 (24) DM (diabetes mellitus screen) (25) Drug-seeking behavior (26) DVT (deep venous thrombosis) (27) Exacerbation of chronic back pain (28) Fall (29) Fracture of fourth metatarsal bone of left foot (30) Gastroesophageal reflux disease (31) Hepatic encephalopathy (32) Hernia of abdominal wall (33) Hyperglycemia (34) Hypokalemia (35) Hypokalemia (36) Hypokalemia (37) Hypokalemia (38) Hypothyroidism (39) Hypoxia (40) Incarcerated ventral hernia (41) Incisional irritation (42) Incisional pain (43) Inguinal lymphadenopathy (44) Insomnia (45) LUMBAGO (46) Migraine (47) Morbid obesity (48) Morbid obesity (49) Morbid obesity (50) Obstructive sleep apnea (51) Pain, dental (52) Rectal bleeding (53) Renal colic on right side (54) Renal insufficiency (55) Renal insufficiency (56) SBO (small bowel obstruction) (57) Seroma, postoperative (58) Sleep apnea (59) Spinal stenosis (60) Supraumbilical hernia Surgical Problems: (1) H/O hernia repair (2) H/O knee surgery (3) H/O: hysterectomy (4) History of cholecystectomy (5) Hx of appendectomy Social History Problems: (1) Diabetic neuropathy Family History Cancer Diabetes mellitus Gallbladder disease Heart disease Hypertension Lung disease Social History Smoking Status: Current Every Day Smoker Alcohol Use: none Drug Use: none Marital Status: single, in relationship Housing Status: lives with family Occupation Status: unemployed, disabled Current/Historical Medications Scheduled Carvedilol (Coreg), 12.5 MG PO BID Duloxetine Hcl (Cymbalta), 60 MG PO QPM Escitalopram Oxalate (Lexapro), 20 MG PO QPM Insulin Aspart (Novolog Flexpen), UNITS SC TID Insulin Glargine (Lantus Solostar), 75 UNITS SQ BID Levothyroxine Sodium (Levothyroxine Sodium), 100 MCG PO QAM Omeprazole (Prilosec), 40 MG PO BID Scheduled PRN Home O2 Therapy (Oxygen), 3 LITERS NA UD PRN for Shortness of Breath Prochlorperazine Maleate (Compazine), 5 MG PO TID PRN for Nausea Allergies Coded Allergies: Iodinated Diagnostic Agents (Verified Allergy, Intermediate, hives, 12/27/16 ) Per patient she has had it since without problem (01/25/16 Ioversal given with no pretreats and no mention of rxn; also given Ioversal 11/26/06 with pretreats) Adhesives (Verified Allergy, Mild, RED RASH CAUSED BY PAPER TAPE, 12/27/16) Alprazolam (Verified Allergy, Unknown, MAKES LOOPY,DO AND SAY SILLY THINGS , 12/27/16) Metformin (Verified Allergy, Unknown, HANDS FEET FACE NUMB, 12/27/16) Vancomycin (Verified Adverse Reaction, Severe, renal failure, required dialysis x 3 MONTHS, 12/27/16) Methylparaben (Verified Adverse Reaction, Intermediate, FLUID RETENTION, ) Oxymorphone (Verified Adverse Reaction, Intermediate, FLUID RETENTION, 12/27) Gabapentin (Verified Adverse Reaction, Mild, Aphasia/Speech impairments, ) Sulfa Antibiotics (Verified Adverse Reaction, Mild, GI SYMPTOMS, 12/27/16) Acetaminophen (Verified Adverse Reaction, Unknown, Liver problems., 12/27/16 ) Codeine (Verified Adverse Reaction, Unknown, UPSET STOMACH, 12/27/16) Pregabalin (Verified Adverse Reaction, Unknown, Aphasia/Speech impairments , 12/27/16) Physical Exam Vital Signs Date Time Temp Pulse Resp B/P (MAP) Pulse Ox O2 Delivery O2 Flow Rate FiO2 12/31/16 03:46 Room Air 12/31/16 03:22 70 12/31/16 02:58 36.9 56 18 121/56 96 Room Air Physical Exam VITALS: Vitals are noted on the nurse's note and reviewed by myself. Vital signs stable. GENERAL: Pleasant female, in no acute distress, nondiaphoretic, well-developed well-nourished. SKIN: The skin was without rashes, erythema, edema, or bruising. There is no tenting of the skin. Capillary reflex less than 2 seconds. HEAD: Normocephalic atraumatic. EARS: External auditory canals clear, tympanic membranes pearly [place] without erythema or effusion bilaterally. EYES: Pupils equal round and reactive to light and accommodation. Conjunctivae without injection, sclerae without icterus. Extraocular movements intact. NOSE: Patent, turbinates without inflammation or discharge. MOUTH: Mucous membranes moist. Pharynx without erythema or exudate. Uvula midline. Airway patent. Tongue does not deviate. NECK: Supple without nuchal rigidity. No lymphadenopathy. No thyromegaly. Cervical spine is nontender. No JVD. HEART: Regular rate and rhythm without murmurs gallops or rubs. LUNGS: Clear to auscultation bilaterally without wheezes, rales or rhonchi. No dullness to percussion. No retractions or accessory muscle use. ABDOMEN: Positive bowel sounds x 4. Normal tympanic percussion. Soft, protuberant, obese, tender to palpation epigastric region, no CVA tenderness, without masses or organomegaly. Amaya sign negative. No guarding or rebound tenderness. Rectal exam: No fissures or tears, brown stool, guaiac positive MUSCULOSKELETAL: No muscle atrophy, erythema, noted. NEURO: Patient was alert and oriented to person place and time. Normal sensation to light and sharp touch. No focal neurological deficits. Medical Decision & Procedures Laboratory Results 12/31/16 03:58 Red Blood Count 3.14, Mean Corpuscular Volume 102.2, Mean Corpuscular Hemoglobin 35.0, Mean Corpuscular Hemoglobin Concent 34.3, Mean Platelet Volume 9.3, Neutrophils (%) (Auto) 58.2, Lymphocytes (%) (Auto) 31.2, Monocytes (%) ( Auto) 6.5, Eosinophils (%) (Auto) 3.3, Basophils (%) (Auto) 0.4, Neutrophils # ( Auto) 3.21, Lymphocytes # (Auto) 1.72, Monocytes # (Auto) 0.36, Eosinophils # ( Auto) 0.18, Basophils # (Auto) 0.02 12/31/16 03:58 Test 12/31/16 03:58 12/31/16 04:04 White Blood Count 5.51 K/uL (4.8-10.8) Red Blood Count 3.14 M/uL (4.2-5.4) Hemoglobin 11.0 g/dL (12.0-16.0) Hematocrit 32.1 % (37-47) Mean Corpuscular Volume 102.2 fL (80-100) Mean Corpuscular Hemoglobin 35.0 pg (25-34) Mean Corpuscular Hemoglobin Concent 34.3 g/dl (32-36) Platelet Count 139 K/uL (130-400) Mean Platelet Volume 9.3 fL (7.4-10.4) Neutrophils (%) (Auto) 58.2 % Lymphocytes (%) (Auto) 31.2 % Monocytes (%) (Auto) 6.5 % Eosinophils (%) (Auto) 3.3 % Basophils (%) (Auto) 0.4 % Neutrophils # (Auto) 3.21 K/uL (1.4-6.5) Lymphocytes # (Auto) 1.72 K/uL (1.2-3.4) Monocytes # (Auto) 0.36 K/uL (0.11-0.59) Eosinophils # (Auto) 0.18 K/uL (0-0.5) Basophils # (Auto) 0.02 K/uL (0-0.2) RDW Standard Deviation 56.6 fL (36.4-46.3) RDW Coefficient of Variation 15.8 % (11.5-14.5) Immature Granulocyte % (Auto) 0.4 % Immature Granulocyte # (Auto) 0.02 K/uL (0.00-0.02) Anion Gap 6.0 mmol/L (3-11) Est Creatinine Clear Calc Drug Dose 91.5 ml/min Estimated GFR () 66.4 Estimated GFR (Non- 57.3 BUN/Creatinine Ratio 11.7 (10-20) Calcium Level 8.5 mg/dl (8.5-10.1) Total Bilirubin 0.6 mg/dl (0.2-1) Direct Bilirubin mg/dl (0-0.2) Aspartate Amino Transf (AST/SGOT) U/L (15-37) Alanine Aminotransferase (ALT/SGPT) 29 U/L (12-78) Alkaline Phosphatase 169 U/L (45-117) Total Protein 7.1 gm/dl (6.4-8.2) Albumin 2.6 gm/dl (3.4-5.0) Lipase 59 U/L (73-393) Bedside Troponin I < 0.030 ng/ml (0-0.045) Medications Administered Medications (Trade) Dose Ordered Sig/Nelda Route Start Time Stop Time Status Last Admin Dose Admin Lidocaine HCl (Viscous Lidocaine 2% Soln) 10 ml NOW STAT PO 12/31/16 03:15 12/31/16 03:16 DC 12/31/16 04:09 10 ML Al Hydroxide/Mg Hydroxide (Maalox Susp) 30 ml NOW STAT PO 12/31/16 03:15 12/31/16 03:16 DC 12/31/16 04:09 30 ML Pantoprazole Sodium (Protonix Tab) 40 mg NOW STAT PO 12/31/16 03:15 12/31/16 03:16 DC 12/31/16 04:09 40 MG Ondansetron HCl (Zofran Odt) 4 mg ONE ONCE PO 12/31/16 04:15 12/31/16 04:16 DC 12/31/16 04:09 4 MG ED Course Prior records/ancillary studies reviewed. Triage Nursing notes reviewed. The patient's history was concerning for possible gastrointestinal bleeding. Differential diagnosis: Etiologies such as diverticulosis, AVM, coagulopathy, colitis, inflammatory bowel disease, malignancy, Negin-Vargas tear, esophagitis, peptic ulcer disease , variceal bleed, gastritis, epistaxis, fissure, hemorrhoids, as well as others were entertained. Physical exam: As above. The patients vital signs were stable. ER treatment provided: GI cocktail, Protonix On reassessment the patient felt better. Diagnostics interpreted by me: ECG: Normal sinus, first-degree AV block, low voltage, no acute ST or T wave changes. Impression normal sinus rhythm with first-degree AV block interpreted by myself The labs revealed stable H and H per chart review. negative Troponin, hyperglycemia without DKA Patient is requesting pain medications and she was informed that she is on a no narcotic list. Endoscopy report was reviewed from the other day and showed gastric ulcer which was negative on pathology report Procedure: Upper GI endoscopy Indications: Melena Medicines: General Anesthesia Complications: No immediate complications. Estimated blood loss: None. Estimated Blood Loss: Estimated blood loss: none. Procedure: Pre-Anesthesia Assessment: - Pre-Anesthesia Assessment: - Prior to the procedure, a History and Physical was performed, and patient medications, allergies and sensitivities were reviewed. The patient's tolerance of previous anesthesia was reviewed. Please see [facility] for complete details. - The risks and benefits of the procedure and the sedation options and risks were discussed with the patient. All questions were answered and informed consent was obtained. - Patient identification and proposed procedure were verified prior to the procedure by the physician and the nurse. The procedure was verified in the pre-procedure area in the procedure room. After obtaining informed consent, the endoscope was passed carefully and meticuously under direct vision and only advanced when the lumen was clearly identified, C02 insuflation was utilized throughout the entirity of the procedure. Throughout the procedure, the patient's blood pressure, pulse, and oxygen saturations were monitored continuously. After obtaining informed consent, the endoscope was passed under direct vision. Throughout the procedure, the patient's blood pressure, pulse, and oxygen saturations were monitored continuously. The scope was introduced through the mouth, and advanced to the second part of duodenum. The upper GI endoscopy was accomplished without difficulty. The patient tolerated the procedure well. Findings: The examined esophagus was normal. One non-bleeding superficial gastric ulcer with a clean ulcer base (Benito Class III) was found in the prepyloric region of the stomach. The lesion was 4 mm in largest dimension. Biopsies were taken with a cold forceps for histology. The examined duodenum was normal. Impression: - Normal esophagus. - Non-bleeding gastric ulcer with a clean ulcer base (Benito Class III). Biopsied. - Normal examined duodenum. Recommendation: - Return patient to [facility] for possible discharge same day. - Use Prilosec (omeprazole) 40 mg PO BID for 2 months. - Repeat the upper endoscopy in 2 months for surveillance. This appears to be consistent with ongoing gastritis with ulcer that is not actively bleeding. Patient did not worm picker her medications. She was strongly encouraged take her Prilosec as directed. She was given a dose here. She is prescription at the pharmacy. She is advised to follow-up with her family doctor and GI doctor in a few days or here in the ER sooner for severe pain, fevers, weakness, heavy bleeding, worsening signs or symptoms or as needed. Patient did not have acute abdomen on exam. She is an extensive workup this week for her ongoing issues over the past few weeks. Patient is no longer on 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s. By the evaluation outlined above emergent etiologies such as esophageal perforation, variceal bleed, coagulopathy, epistaxis, malignancy, inflammatory bowel disease, as well as others were deemed relatively unlikely. The pt informed about the findings as listed above. All questions were answered and pleased with the treatment. Return instructions were outlined and the patient was discharged in stable condition. Outpatient prescription management: maria elena Referral: The patient was referred back to their primary care physician for follow-up in 2 to 3 days for a recheck of the current condition case reviewed with my Attending Medical Decision As above Impression Primary Impression: Gastritis Additional Impression: Hyperglycemia Departure Information Dispostion Home / Self-Care Condition GOOD Referrals Agustina Cummings M.D. (PCP) Patient Instructions My [facility] Additional Instructions Your prescribed medications from GI of Prilosec 40 mg twice a day. You need to take your medications as directed. This prescription was sent to her pharmacy. Monitor your blood sugar. It was high today. Try Maalox or Zantac for breakthrough symptoms for reflux. Avoid large meals. Avoid acidic foods. Rest and drink plenty of fluids as tolerated. Continue current medications. Avoid strenuous activities and anything that worsens your pain. Resume normal activities once your symptoms resolve. Return to the ER immediately for worsening or persistent chest pain, abdominal pain, black or blood in your stools, vomiting, fevers, chest pains, difficulty breathing, worsening of your condition, or as needed. Follow up with your primary physician in 2-3 days for a recheck of your current condition. Problem Qualifiers Primary Impression: Gastritis Gastritis type: unspecified gastritis Chronicity: acute Gastritis bleeding : presence of bleeding unspecified Qualified Codes: K29.00 - Acute gastritis without bleeding
--- NOTE | 2016-12-31 05:11 | EMERGENCY ROOM VISIT NOTE ---
ED Visit Note First contact with patient: 03:03 Patient seen by us most recently and was admitted had a GI evaluation including endoscopy which found a stomach ulcer which was not actively bleeding. Patient was placed on PPIs has not started taking them. Patient has a chronic history of abdominal pain as well as opiate dependence. Patient's evaluation this evening is essentially negative I agree with the physician assistants workup and the patient will be discharged to follow-up Problem List Medical Problems: (1) Abdominal pain Status: Resolved (2) Abdominal pain Status: Resolved (3) Abdominal pain Status: Resolved (4) Abdominal wall cellulitis Status: Resolved (5) Acute hypokalemia Status: Resolved (6) Acute renal failure syndrome Status: Resolved (7) Ankle pain Status: Resolved (8) Asthma Status: Chronic (9) Atypical syncope Status: Resolved (10) Benign hypertension Status: Chronic (11) Bipolar disorder Status: Chronic (12) Bowel obstruction Status: Resolved (13) Cellulitis Status: Resolved (14) CELLULITIS ABDOMEN Status: Resolved (15) Cellulitis and abscess of trunk Status: Resolved (16) Chronic pain Status: Chronic (17) Contusion of ankle Status: Resolved (18) Contusion of periorbital region, left Status: Resolved (19) Degenerative joint disease of spine Status: Chronic (20) Dehydration Status: Resolved (21) Dehydration Status: Resolved (22) Depression Status: Chronic (23) Diabetes mellitus type 2 Status: Chronic (24) DM (diabetes mellitus screen) Status: Chronic (25) Drug-seeking behavior Status: Chronic (26) DVT (deep venous thrombosis) Status: Resolved (27) Exacerbation of chronic back pain Status: Resolved (28) Fall Status: Resolved (29) Fracture of fourth metatarsal bone of left foot Status: Resolved (30) Gastroesophageal reflux disease Status: Chronic (31) Hepatic encephalopathy Status: Resolved (32) Hernia of abdominal wall Status: Chronic (33) Hyperglycemia Status: Resolved (34) Hypokalemia Status: Resolved (35) Hypokalemia Status: Resolved (36) Hypokalemia Status: Resolved (37) Hypokalemia Status: Resolved (38) Hypothyroidism Status: Chronic (39) Hypoxia Status: Resolved (40) Incarcerated ventral hernia Status: Resolved (41) Incisional irritation Status: Resolved (42) Incisional pain Status: Resolved (43) Inguinal lymphadenopathy Status: Resolved (44) Insomnia Status: Chronic (45) LUMBAGO Status: Chronic (46) Migraine Status: Chronic (47) Morbid obesity Status: Resolved (48) Morbid obesity Status: Chronic (49) Morbid obesity Status: Chronic (50) Obstructive sleep apnea Status: Chronic (51) Pain, dental Status: Resolved (52) Renal colic on right side Status: Resolved (53) Renal insufficiency Status: Resolved (54) Renal insufficiency Status: Resolved (55) SBO (small bowel obstruction) Status: Resolved (56) Seroma, postoperative Status: Resolved (57) Sleep apnea Status: Resolved (58) Spinal stenosis Status: Chronic (59) Supraumbilical hernia Status: Chronic Surgical Problems: (1) H/O hernia repair Status: Chronic (2) H/O knee surgery Status: Resolved (3) H/O: hysterectomy Status: Resolved (4) History of cholecystectomy Status: Resolved (5) Hx of appendectomy Status: Resolved Social History Problems: (1) Diabetic neuropathy Status: Chronic Current/Historical Medications Scheduled Carvedilol (Coreg), 12.5 MG PO BID Duloxetine Hcl (Cymbalta), 60 MG PO QPM Escitalopram Oxalate (Lexapro), 20 MG PO QPM Insulin Aspart (Novolog Flexpen), UNITS SC TID Insulin Glargine (Lantus Solostar), 75 UNITS SQ BID Levothyroxine Sodium (Levothyroxine Sodium), 100 MCG PO QAM Omeprazole (Prilosec), 40 MG PO BID Scheduled PRN Home O2 Therapy (Oxygen), 3 LITERS NA UD PRN for Shortness of Breath Prochlorperazine Maleate (Compazine), 5 MG PO TID PRN for Nausea Allergies Coded Allergies: Iodinated Diagnostic Agents (Verified Allergy, Intermediate, hives, 12/27/16 ) Per patient she has had it since without problem (01/25/16 Ioversal given with no pretreats and no mention of rxn; also given Ioversal 11/26/06 with pretreats) Adhesives (Verified Allergy, Mild, RED RASH CAUSED BY PAPER TAPE, 12/27/16) Alprazolam (Verified Allergy, Unknown, MAKES LOOPY,DO AND SAY SILLY THINGS , 12/27/16) Metformin (Verified Allergy, Unknown, HANDS FEET FACE NUMB, 12/27/16) Vancomycin (Verified Adverse Reaction, Severe, renal failure, required dialysis x 3 MONTHS, 12/27/16) Methylparaben (Verified Adverse Reaction, Intermediate, FLUID RETENTION, ) Oxymorphone (Verified Adverse Reaction, Intermediate, FLUID RETENTION, 12/27) Gabapentin (Verified Adverse Reaction, Mild, Aphasia/Speech impairments, ) Sulfa Antibiotics (Verified Adverse Reaction, Mild, GI SYMPTOMS, 12/27/16) Acetaminophen (Verified Adverse Reaction, Unknown, Liver problems., 12/27/16 ) Codeine (Verified Adverse Reaction, Unknown, UPSET STOMACH, 12/27/16) Pregabalin (Verified Adverse Reaction, Unknown, Aphasia/Speech impairments , 12/27/16) Vital Signs Date Time Temp Pulse Resp B/P (MAP) Pulse Ox O2 Delivery O2 Flow Rate FiO2 12/31/16 03:46 Room Air 12/31/16 03:22 70 12/31/16 02:58 36.9 56 18 121/56 96 Room Air Laboratory Results 12/31/16 03:58 Red Blood Count 3.14, Mean Corpuscular Volume 102.2, Mean Corpuscular Hemoglobin 35.0, Mean Corpuscular Hemoglobin Concent 34.3, Mean Platelet Volume 9.3, Neutrophils (%) (Auto) 58.2, Lymphocytes (%) (Auto) 31.2, Monocytes (%) ( Auto) 6.5, Eosinophils (%) (Auto) 3.3, Basophils (%) (Auto) 0.4, Neutrophils # ( Auto) 3.21, Lymphocytes # (Auto) 1.72, Monocytes # (Auto) 0.36, Eosinophils # ( Auto) 0.18, Basophils # (Auto) 0.02 12/31/16 03:58 Test 12/31/16 03:58 12/31/16 04:04 White Blood Count 5.51 K/uL (4.8-10.8) Red Blood Count 3.14 M/uL (4.2-5.4) Hemoglobin 11.0 g/dL (12.0-16.0) Hematocrit 32.1 % (37-47) Mean Corpuscular Volume 102.2 fL (80-100) Mean Corpuscular Hemoglobin 35.0 pg (25-34) Mean Corpuscular Hemoglobin Concent 34.3 g/dl (32-36) Platelet Count 139 K/uL (130-400) Mean Platelet Volume 9.3 fL (7.4-10.4) Neutrophils (%) (Auto) 58.2 % Lymphocytes (%) (Auto) 31.2 % Monocytes (%) (Auto) 6.5 % Eosinophils (%) (Auto) 3.3 % Basophils (%) (Auto) 0.4 % Neutrophils # (Auto) 3.21 K/uL (1.4-6.5) Lymphocytes # (Auto) 1.72 K/uL (1.2-3.4) Monocytes # (Auto) 0.36 K/uL (0.11-0.59) Eosinophils # (Auto) 0.18 K/uL (0-0.5) Basophils # (Auto) 0.02 K/uL (0-0.2) RDW Standard Deviation 56.6 fL (36.4-46.3) RDW Coefficient of Variation 15.8 % (11.5-14.5) Immature Granulocyte % (Auto) 0.4 % Immature Granulocyte # (Auto) 0.02 K/uL (0.00-0.02) Anion Gap 6.0 mmol/L (3-11) Est Creatinine Clear Calc Drug Dose 91.5 ml/min Estimated GFR () 66.4 Estimated GFR (Non- 57.3 BUN/Creatinine Ratio 11.7 (10-20) Calcium Level 8.5 mg/dl (8.5-10.1) Total Bilirubin 0.6 mg/dl (0.2-1) Direct Bilirubin mg/dl (0-0.2) Aspartate Amino Transf (AST/SGOT) U/L (15-37) Alanine Aminotransferase (ALT/SGPT) 29 U/L (12-78) Alkaline Phosphatase 169 U/L (45-117) Total Protein 7.1 gm/dl (6.4-8.2) Albumin 2.6 gm/dl (3.4-5.0) Lipase 59 U/L (73-393) Bedside Troponin I < 0.030 ng/ml (0-0.045) Medications Administered Medications (Trade) Dose Ordered Sig/Nelda Route Start Time Stop Time Status Last Admin Dose Admin Lidocaine HCl (Viscous Lidocaine 2% Soln) 10 ml NOW STAT PO 12/31/16 03:15 12/31/16 03:16 DC 12/31/16 04:09 10 ML Al Hydroxide/Mg Hydroxide (Maalox Susp) 30 ml NOW STAT PO 12/31/16 03:15 12/31/16 03:16 DC 12/31/16 04:09 30 ML Pantoprazole Sodium (Protonix Tab) 40 mg NOW STAT PO 12/31/16 03:15 12/31/16 03:16 DC 12/31/16 04:09 40 MG Ondansetron HCl (Zofran Odt) 4 mg ONE ONCE PO 12/31/16 04:15 12/31/16 04:16 DC 12/31/16 04:09 4 MG Departure Information Referrals Agustina Cummings M.D. (PCP) Patient Instructions [facility]
[2016-12-31 05:19] VITALS: BP 131/62; PULSE 86; O2SAT 95
[2017-01-09] MEDS ORDERED: ESCI1TAB10 PO ×2 (19:09)
[2017-01-09] MEDS ORDERED: INSDGIPEN SQ ×2 (19:09)
[2017-01-09] MEDS ORDERED: PROC5TAB PO ×2 (19:09)
[2017-01-09] MEDS ORDERED: CARV12.52 PO ×2 (19:15)
[2017-01-09] MEDS ORDERED: DULO60CA44 PO ×2 (20:25)
[2017-01-09] MEDS ORDERED: NVLGI/PEN SC ×2 (20:31)
[2017-01-09] MEDS ORDERED: OXGN ×2 (20:37)
== END 2016-12-31 05:20 | disposition home or self-care (01) ==
LOC: EDBD 02:51 → C.EDB 02:52
DX: K29.00 Acute gastritis without bleeding (principal); R73.9 Hyperglycemia, unspecified; E87.6 Hypokalemia; J45.909 Unspecified asthma, uncomplicated; R55 Syncope and collapse; I10 Essential (primary) hypertension; F31.9 Bipolar disorder, unspecified; E11.9 Type 2 diabetes mellitus without complications; E03.9 Hypothyroidism, unspecified; E66.9 Obesity, unspecified; G47.33 Obstructive sleep apnea (adult) (pediatric); Z83.3 Family history of diabetes mellitus; Z82.49 Family history of ischemic heart disease and other diseases of the circulatory system; F17.200 Nicotine dependence, unspecified, uncomplicated; Z79.4 Long term (current) use of insulin

== ENCOUNTER 2017-01-09 15:54 | Emergency (ER) | payer OTHER ==
[~2017-01-09] VITALS: Ht 160 cm; Wt 166.2 kg
[~2017-01-09 15:54] MED LIST changes: -RANI300T2 PO; -WARF5TAB90 PO
[2017-01-09 15:58] VITALS: TEMP 36.7; Ht 160 cm; Wt 166.2 kg
[2017-01-09 16:43] VITALS: O2SAT 95
[2017-01-09] MEDS ORDERED: VLM5CL PO (16:47)
[2017-01-09] MEDS ORDERED: LEVO200T6 PO (16:47)
[2017-01-09] MEDS ORDERED: XRL20 PO (16:47)
[2017-01-09 16:49] LABS: BASO % 0.2 %; BASO ABS # 0.01 K/uL (0-0.2); COMPLETE YES; EOS % 2.4 %; IG% 0.2 %; LYMPH % 30.1 %; LYMPH ABS # 1.74 K/uL (1.2-3.4); MEAN CELL VOLUME 99.7 fL (80-100); MEAN CORPUSCULAR HEMOGLOBIN 32.4 pg (25-34); MEAN CORPUSCULAR HGB CONC 32.5 g/dl (32-36); MEAN PLATELET VOLUME 9.1 fL (7.4-10.4); NEUT % 59.1 %; PLATELET COUNT 132 K/uL (130-400); RED BLOOD COUNT 3.21 M/uL (4.2-5.4); WHITE BLOOD COUNT 5.78 K/uL (4.8-10.8)
[2017-01-09] MEDS ORDERED: SODIUM CHLORIDE 0.9% 1000ML 1,000 ML IV STA (16:53)
[2017-01-09 17:00] LABS: PROTHROMBIN TIME (PATIENT) 11.1 SECONDS (9.0-12.0)
[2017-01-09 17:07] LABS: BUN/CREATININE RATIO 11.1 (10-20); C-REACTIVE PROTEIN 2.16 mg/dl (0-0.29); CALCIUM 8.4 mg/dl (8.5-10.1); CREATININE 0.8 mg/dl (0.60-1.20); POTASSIUM 3.9 mmol/L (3.5-5.1)
--- NOTE | 2017-01-09 17:32 | DIAGNOSTIC IMAGING REPORT ---
ABD/PELVIS WITHOUT FOR STONE CLINICAL HISTORY: 51 years-old Female presenting with back pain, prior stones. TECHNIQUE: Multidetector CT of the abdomen and pelvis was performed without the use of intravenous contrast. IV contrast: None. A dose lowering technique was used consistent with the principles of ALARA (as low as reasonably achievable). COMPARISON: 08/07/2016. CT DOSE (mGy.cm): The estimated cumulative dose is 2008.57 mGy.cm. FINDINGS: [employer] topogram: Unremarkable. Lung bases: Lung bases clear. Mitral annular calcification. Normal heart size. No pericardial or pleural effusion. Liver: Relative atrophy of the right hepatic lobe and hypertrophy of the left with a nodular contour consistent with cirrhosis. Normal liver density. Biliary: No gross biliary ductal dilatation allowing for noncontrast technique. Gallbladder surgically absent. Pancreas: Moderate parenchymal atrophy. Spleen: Enlarged measuring over 16 cm in maximal sagittal dimension.. Adrenal glands: Normal. Kidneys and ureters: Nonobstructing 6 mm calculus in the left kidney, increased in size from prior exam. No additional stone burden. No hydronephrosis. Ureters normal. Bladder: Incompletely evaluated secondary to underdistention. Pelvic organs: Uterus surgically absent. Bowel: Postsurgical changes of appendectomy. No bowel obstruction. Peritoneal cavity: No free fluid or intraperitoneal gas. Vasculature: Atherosclerosis of the normal caliber abdominal aorta. IVC patent. Suggestion of paraesophageal and perisplenic varices. Lymph nodes: Numerous prominent subcentimeter retroperitoneal lymph nodes as well as in the portal caval, uziel hepatis, gastrohepatic regions. An index node in the liver hilum measures up to 13 mm in the short axis, similar to prior exam although slightly more prominent. Abdominal wall: Infiltration of the abdominal wall could suggest mild anasarca. Postsurgical changes of the midline abdominal wall. Skin thickening noted along the pannus. Musculoskeletal: Degenerative changes of the spine. IMPRESSION: 1. Nonobstructing 6 mm left renal calculus. 2. Cirrhosis with portal hypertension evidenced by splenomegaly and varices. 3. Stable to slight interval increase in retroperitoneal and upper abdominal lymphadenopathy. This could be reactive, although attention on follow-up preferably with a contrast-enhanced examination. Electronically signed by: Jann Cedillo M.D. 01/09/2017 5:31 PM Dictated Date/Time: 01/09/2017 5:23 PM
--- NOTE | 2017-01-09 17:44 | DIAGNOSTIC IMAGING REPORT ---
CHEST ONE VIEW PORTABLE CLINICAL HISTORY: 51 years-old Female presenting with Back pain. TECHNIQUE: Portable upright AP view of the chest was obtained. COMPARISON: 12/27/2016. FINDINGS: Prominence of the main pulmonary artery. Cardiac silhouette remains enlarged. Allowing for body habitus, no focal infiltrate. No large effusion or pneumothorax. Osseous structures normal. Upper abdomen normal. IMPRESSION: 1. Cardiomegaly. 2. Enlarged main pulmonary artery, new from prior and suggestive of pulmonary hypertension. 3. No focal infiltrate. Electronically signed by: Jann Cedillo M.D. 01/09/2017 5:43 PM Dictated Date/Time: 01/09/2017 5:42 PM
[2017-01-09] MEDS ORDERED: PROMETHAZINE HCL INJ 25 MG in SODIUM CHLORIDE 0.9% 50ML 50 ML IV STA (17:47)
[2017-01-09 17:57] LABS: URINE APPEARANCE CLEAR (CLEAR); URINE BILIRUBIN NEG (NEG); URINE COLOR DK YELLOW; URINE NITRITE NEG (NEG); URINE SPECIFIC GRAVITY 1.029 (1.000-1.030); UROBILINOGEN NEG (NEG)
[2017-01-09 18:02] LABS: MANUAL MICROSCOPIC REQUIRED? NO; REVIEW REQ? NO
[2017-01-09] MEDS ORDERED: DIAZEPAM 5MG TAB PO STA (18:20)
[2017-01-09] MEDS ORDERED: HYDROmorphone INJ 0.5 MG/0.5 ML SYR IV STA ×2 (19:01→22:27)
[2017-01-09] MEDS ORDERED: ESCI1TAB10 PO (19:09)
[2017-01-09] MEDS ORDERED: INSDGIPEN SQ (19:09)
[2017-01-09] MEDS ORDERED: PROC5TAB PO (19:09)
[2017-01-09] MEDS ORDERED: CARV12.52 PO (19:15)
--- NOTE | 2017-01-09 20:15 | DIAGNOSTIC IMAGING REPORT ---
LUMBAR SPINE W/O CONTRAST CLINICAL HISTORY: 51 years-old Female presenting with back pain, incontinence, loss of bowel movements, back pain radiating down the mid back to the left hip, no known injury. TECHNIQUE: Multisequence, multiplanar MR imaging of the lumbar spine was performed without the use of intravenous contrast. IV contrast: None. COMPARISON: None. FINDINGS: Image quality is limited due to patient motion. Localizer images: Unremarkable. Levoscoliotic curvature of the lumbar spine. The lumbar spinal canal is narrow on a developmental basis. Straightening of normal lumbar lordosis likely secondary to multilevel degenerative changes. Vertebral bodies maintain normal height alignment. Sclerotic endplate changes evident at L3-4. Intervertebral disc height loss at L2-3 through L5-S1 secondary to disc bulges. Multilevel degenerative changes further detailed below: L1-2: Normal. L2-3: Disc bulge results in near complete effacement of CSF secondary to ventral mass effect. Mild bilateral neural foraminal narrowing, right greater than left. L3-4: Disc bulge again results in near complete effacement of CSF secondary to ventral mass effect. There is also suggestion of expansion of epidural fat in this region. Moderate bilateral neural foraminal narrowing. L4-5: Disc bulge in combination with facet arthropathy and ligamentum flavum thickening results in complete effacement of CSF. Moderate right and mild left neural foraminal narrowing. L5-S1: Disc bulge effaces the left lateral recess to the greatest degree, which in combination with facet arthropathy results in moderate to severe left neural foraminal narrowing. Spinal cord ends in good position at the superior endplate of L1. Cauda equina with crowding of the nerve roots at multiple levels secondary to suspected impingement by disc bulges. Paraspinal soft tissues within normal limits allowing for limited image quality. Superficial subcutaneous edema noted in the thoracolumbar region, nonspecific. IMPRESSION: 1. Multilevel spinal canal narrowing with concern for impingement of the cauda equina secondary to disc bulges and a developmentally narrow spinal canal at L2-3 and L3-4. 2. Varying degrees of neural foraminal narrowing as above. The report will be called/faxed according to standard departmental protocol. Electronically signed by: Jann Cedillo M.D. 01/09/2017 8:14 PM Dictated Date/Time: 01/09/2017 8:07 PM
--- NOTE | 2017-01-09 20:22 | DIAGNOSTIC IMAGING REPORT ---
THORACIC SPINE WITHOUT CLINICAL HISTORY: 51 years-old Female presenting with Back pain, incontinence. TECHNIQUE: Multisequence, multiplanar MR imaging of the thoracic spine was performed without the use of intravenous contrast. IV contrast: None. COMPARISON: Correlation made to CTA chest from 10/21/2016. FINDINGS: Localizer images: Unremarkable. Vertebral bodies maintain normal height, alignment, and bone marrow signal intensity with the exception of the benign hemangioma in the T12 vertebral body. Intervertebral disc spaces preserved. No significant spinal canal or neural foraminal narrowing. Spinal cord maintains normal morphology and signal intensity. No paraspinal soft tissue edema. Superficial edema noted in the posterior subcutaneous tissue of the thoracolumbar junction. IMPRESSION: Normal thoracic spine. Electronically signed by: Jann Cedillo M.D. 01/09/2017 8:20 PM Dictated Date/Time: 01/09/2017 8:18 PM
[2017-01-09] MEDS ORDERED: DULO60CA44 PO (20:25)
[2017-01-09] MEDS ORDERED: DEXAMETHASONE SOD INJ 10 MG/ML VIAL IV ONE (20:30)
[2017-01-09] MEDS ORDERED: NVLGI/PEN SC (20:31)
[2017-01-09] MEDS ORDERED: OXGN (20:37)
[2017-01-09 23:11] VITALS: BP 139/73; PULSE 69; O2SAT 93
--- NOTE | 2017-01-10 02:15 | EMERGENCY ROOM VISIT NOTE ---
History Report prepared by [place]: Kristen Winston Under the Supervision of: Dr. Jonathan Gupta M.D. First contact with patient: 16:11 Chief Complaint: BACK PAIN Stated Complaint: BACK PAIN,POSSIBLE KIDNEY STONE History of Present Illness The patient is a 51 year old female who presents to the Emergency Room with complaints of constant back pain starting 4 days ago. The patient states that the pain is in the middle of her back. She reports that the pain is a 7/10 in severity. She reports that she went to [facility] for this a few days ago. She notes that they gave her Percocet and Valium. She notes that she took these today with no relief. The patient states that she called [facility] and was told by the nurse to come to the ED. She notes that movement worsens the pain. She states that when she moves, there is a sharp pain that takes her breath away. The patient complains of her legs being heavy, bowel incontinence, and bladder incontinence. She states that the pain feels similar to previous kidney stones that she has had. The patient denies shortness of breath, numbness, tingling, hematochezia, chest pain, abdominal pain, and recent trauma or injury. She notes that she hasn't started taking her Xarelto yet. Source of History: patient Onset: 4 days ago Position: back Symptom Intensity: 7/10 Quality: sharp, other (similar to previous kidney stones) Timing: constant Modifying Factors (Worsening): movement Associated Symptoms: No chest pain, No SOB, No abdominal pain, No hematochezia, No numbness Note: The patient complains of a sharp pain that takes her breath away, her legs being heavy, bowel incontinence, and bladder incontinence. The patient denies tingling and recent trauma or injury. Review of Systems See HPI for pertinent positives and negatives. A total of ten systems were reviewed and were otherwise negative. Past Medical & Surgical Medical Problems: (1) Abdominal pain (2) Abdominal pain (3) Abdominal pain (4) Abdominal wall cellulitis (5) Acute hypokalemia (6) Acute renal failure syndrome (7) Ankle pain (8) Asthma (9) Atypical syncope (10) Benign hypertension (11) Bipolar disorder (12) Bowel obstruction (13) Cellulitis (14) CELLULITIS ABDOMEN (15) Cellulitis and abscess of trunk (16) Chronic pain (17) Contusion of ankle (18) Contusion of periorbital region, left (19) Degenerative joint disease of spine (20) Dehydration (21) Dehydration (22) Depression (23) Diabetes mellitus type 2 (24) DM (diabetes mellitus screen) (25) Drug-seeking behavior (26) DVT (deep venous thrombosis) (27) Exacerbation of chronic back pain (28) Fall (29) Fracture of fourth metatarsal bone of left foot (30) Gastroesophageal reflux disease (31) Hepatic encephalopathy (32) Hernia of abdominal wall (33) Hyperglycemia (34) Hypokalemia (35) Hypokalemia (36) Hypokalemia (37) Hypokalemia (38) Hypothyroidism (39) Hypoxia (40) Incarcerated ventral hernia (41) Incisional irritation (42) Incisional pain (43) Inguinal lymphadenopathy (44) Insomnia (45) LUMBAGO (46) Migraine (47) Morbid obesity (48) Morbid obesity (49) Morbid obesity (50) Obstructive sleep apnea (51) Pain, dental (52) Rectal bleeding (53) Renal colic on right side (54) Renal insufficiency (55) Renal insufficiency (56) SBO (small bowel obstruction) (57) Seroma, postoperative (58) Sleep apnea (59) Spinal stenosis (60) Supraumbilical hernia Surgical Problems: (1) H/O hernia repair (2) H/O knee surgery (3) H/O: hysterectomy (4) History of cholecystectomy (5) Hx of appendectomy Social History Problems: (1) Diabetic neuropathy Family History Cancer Diabetes mellitus Gallbladder disease Heart disease Hypertension Lung disease Social History Smoking Status: Current Every Day Smoker Alcohol Use: none Drug Use: none Marital Status: single, in relationship Housing Status: lives with family Occupation Status: unemployed, disabled Current/Historical Medications Scheduled Carvedilol (Coreg), 12.5 MG PO BID Diazepam (Diazepam), 1 TAB PO TID Duloxetine Hcl (Cymbalta), 60 MG PO BID Escitalopram Oxalate (Lexapro), 20 MG PO QPM Insulin Aspart (Novolog Flexpen), UNITS SC TIDM Insulin Glargine (Lantus Solostar), 75 UNITS SQ BID Levothyroxine Sodium (Levothyroxine Sodium), 200 MG PO DAILY Omeprazole (Prilosec), 40 MG PO BID Rivaroxaban (Xarelto), 20 MG PO DAILY Scheduled PRN Home O2 Therapy (Oxygen), 3 LITERS NA UD PRN for Shortness of Breath Prochlorperazine Maleate (Compazine), 5 MG PO TID PRN for Nausea Allergies Coded Allergies: Iodinated Diagnostic Agents (Verified Allergy, Intermediate, hives, 12/27/16 ) Per patient she has had it since without problem (01/25/16 Ioversal given with no pretreats and no mention of rxn; also given Ioversal 11/26/06 with pretreats) Adhesives (Verified Allergy, Mild, RED RASH CAUSED BY PAPER TAPE, 12/27/16) Alprazolam (Verified Allergy, Unknown, MAKES LOOPY,DO AND SAY SILLY THINGS , 12/27/16) Metformin (Verified Allergy, Unknown, HANDS FEET FACE NUMB, 12/27/16) Vancomycin (Verified Adverse Reaction, Severe, renal failure, required dialysis x 3 MONTHS, 12/27/16) Methylparaben (Verified Adverse Reaction, Intermediate, FLUID RETENTION, ) Oxymorphone (Verified Adverse Reaction, Intermediate, FLUID RETENTION, 12/27) Gabapentin (Verified Adverse Reaction, Mild, Aphasia/Speech impairments, ) Sulfa Antibiotics (Verified Adverse Reaction, Mild, GI SYMPTOMS, 12/27/16) Acetaminophen (Verified Adverse Reaction, Unknown, Liver problems., 12/27/16 ) Codeine (Verified Adverse Reaction, Unknown, UPSET STOMACH, 12/27/16) Pregabalin (Verified Adverse Reaction, Unknown, Aphasia/Speech impairments , 12/27/16) Physical Exam Vital Signs Date Time Temp Pulse Resp B/P (MAP) Pulse Ox O2 Delivery O2 Flow Rate FiO2 01/09/17 23:11 69 20 139/73 93 Room Air 01/09/17 22:33 71 20 138/79 94 Room Air 01/09/17 20:26 72 20 152/90 92 Room Air 01/09/17 18:28 71 115/69 91 Room Air 01/09/17 17:14 64 01/09/17 16:46 70 130/60 01/09/17 16:43 95 Room Air 01/09/17 15:58 36.7 80 22 130/85 92 Room Air Physical Exam GENERAL: Awake, alert, uncomfortable appearing, in no distress HENT: Normocephalic, atraumatic. Oropharynx unremarkable. EYES: Normal conjunctiva. Sclera non-icteric. NECK: Supple. No nuchal rigidity. FROM. No JVD. RESPIRATORY: Clear to auscultation. CARDIAC: Regular rate, normal rhythm. Extremities warm and well perfused. Pulses equal. ABDOMEN: Soft, , obese, non-distended. No tenderness to palpation. No rebound or guarding. No masses. RECTAL: Deferred. MUSCULOSKELETAL: Chest examination reveals no tenderness. The back is symmetrical on inspection without obvious abnormality. There is upper lumbar midline tenderness to superficial palpation. No CVA tenderness noted. No joint edema. LOWER EXTREMITIES: Calves are equal size bilaterally and non-tender. No edema. Chronic venous discoloration in lower extremities. No saddle paresthesias. NEURO: Normal sensorium. No sensory or motor deficits noted. SKIN: No rash or jaundice noted. Medical Decision & Procedures ER Provider Diagnostic Interpretation: Radiology results as stated below per my review and radiologist interpretation: CHEST ONE VIEW PORTABLE CLINICAL HISTORY: 51 years-old Female presenting with Back pain. TECHNIQUE: Portable upright AP view of the chest was obtained. COMPARISON: 12/27/2016. FINDINGS: Prominence of the main pulmonary artery. Cardiac silhouette remains enlarged. Allowing for body habitus, no focal infiltrate. No large effusion or pneumothorax. Osseous structures normal. Upper abdomen normal. IMPRESSION: 1. Cardiomegaly. 2. Enlarged main pulmonary artery, new from prior and suggestive of pulmonary hypertension. 3. No focal infiltrate. Electronically signed by: Jann Cedillo M.D. 01/09/2017 5:43 PM Dictated Date/Time: 01/09/2017 5:42 PM ABD/PELVIS WITHOUT FOR STONE CLINICAL HISTORY: 51 years-old Female presenting with back pain, prior stones. TECHNIQUE: Multidetector CT of the abdomen and pelvis was performed without the use of intravenous contrast. IV contrast: None. A dose lowering technique was used consistent with the principles of ALARA (as low as reasonably achievable). COMPARISON: 08/07/2016. CT DOSE (mGy.cm): The estimated cumulative dose is 2008.57 mGy.cm. FINDINGS: Instrument Technician topogram: Unremarkable. Lung bases: Lung bases clear. Mitral annular calcification. Normal heart size. No pericardial or pleural effusion. Liver: Relative atrophy of the right hepatic lobe and hypertrophy of the left with a nodular contour consistent with cirrhosis. Normal liver density. Biliary: No gross biliary ductal dilatation allowing for noncontrast technique. Gallbladder surgically absent. Pancreas: Moderate parenchymal atrophy. Spleen: Enlarged measuring over 16 cm in maximal sagittal dimension.. Adrenal glands: Normal. Kidneys and ureters: Nonobstructing 6 mm calculus in the left kidney, increased in size from prior exam. No additional stone burden. No hydronephrosis. Ureters normal. Bladder: Incompletely evaluated secondary to underdistention. Pelvic organs: Uterus surgically absent. Bowel: Postsurgical changes of appendectomy. No bowel obstruction. Peritoneal cavity: No free fluid or intraperitoneal gas. Vasculature: Atherosclerosis of the normal caliber abdominal aorta. IVC patent. Suggestion of paraesophageal and perisplenic varices. Lymph nodes: Numerous prominent subcentimeter retroperitoneal lymph nodes as well as in the portal caval, uziel hepatis, gastrohepatic regions. An index node in the liver hilum measures up to 13 mm in the short axis, similar to prior exam although slightly more prominent. Abdominal wall: Infiltration of the abdominal wall could suggest mild anasarca. Postsurgical changes of the midline abdominal wall. Skin thickening noted along the pannus. Musculoskeletal: Degenerative changes of the spine. IMPRESSION: 1. Nonobstructing 6 mm left renal calculus. 2. Cirrhosis with portal hypertension evidenced by splenomegaly and varices. 3. Stable to slight interval increase in retroperitoneal and upper abdominal lymphadenopathy. This could be reactive, although attention on follow-up preferably with a contrast-enhanced examination. Electronically signed by: Jann Cedillo M.D. 01/09/2017 5:31 PM Dictated Date/Time: 01/09/2017 5:23 PM THORACIC SPINE WITHOUT CLINICAL HISTORY: 51 years-old Female presenting with Back pain, incontinence. TECHNIQUE: Multisequence, multiplanar MR imaging of the thoracic spine was performed without the use of intravenous contrast. IV contrast: None. COMPARISON: Correlation made to CTA chest from 10/21/2016. FINDINGS: Localizer images: Unremarkable. Vertebral bodies maintain normal height, alignment, and bone marrow signal intensity with the exception of the benign hemangioma in the T12 vertebral body. Intervertebral disc spaces preserved. No significant spinal canal or neural foraminal narrowing. Spinal cord maintains normal morphology and signal intensity. No paraspinal soft tissue edema. Superficial edema noted in the posterior subcutaneous tissue of the thoracolumbar junction. IMPRESSION: Normal thoracic spine. Electronically signed by: Jann Cedillo M.D. 01/09/2017 8:20 PM Dictated Date/Time: 01/09/2017 8:18 PM LUMBAR SPINE W/O CONTRAST CLINICAL HISTORY: 51 years-old Female presenting with back pain, incontinence, loss of bowel movements, back pain radiating down the mid back to the left hip, no known injury. TECHNIQUE: Multisequence, multiplanar MR imaging of the lumbar spine was performed without the use of intravenous contrast. IV contrast: None. COMPARISON: None. FINDINGS: Image quality is limited due to patient motion. Localizer images: Unremarkable. Levoscoliotic curvature of the lumbar spine. The lumbar spinal canal is narrow on a developmental basis. Straightening of normal lumbar lordosis likely secondary to multilevel degenerative changes. Vertebral bodies maintain normal height alignment. Sclerotic endplate changes evident at L3-4. Intervertebral disc height loss at L2-3 through L5-S1 secondary to disc bulges. Multilevel degenerative changes further detailed below: L1-2: Normal. L2-3: Disc bulge results in near complete effacement of CSF secondary to ventral mass effect. Mild bilateral neural foraminal narrowing, right greater than left. L3-4: Disc bulge again results in near complete effacement of CSF secondary to ventral mass effect. There is also suggestion of expansion of epidural fat in this region. Moderate bilateral neural foraminal narrowing. L4-5: Disc bulge in combination with facet arthropathy and ligamentum flavum thickening results in complete effacement of CSF. Moderate right and mild left neural foraminal narrowing. L5-S1: Disc bulge effaces the left lateral recess to the greatest degree, which in combination with facet arthropathy results in moderate to severe left neural foraminal narrowing. Spinal cord ends in good position at the superior endplate of L1. Cauda equina with crowding of the nerve roots at multiple levels secondary to suspected impingement by disc bulges. Paraspinal soft tissues within normal limits allowing for limited image quality. Superficial subcutaneous edema noted in the thoracolumbar region, nonspecific. IMPRESSION: 1. Multilevel spinal canal narrowing with concern for impingement of the cauda equina secondary to disc bulges and a developmentally narrow spinal canal at L2-3 and L3-4. 2. Varying degrees of neural foraminal narrowing as above. The report will be called/faxed according to standard departmental protocol. Electronically signed by: Jann Cedillo M.D. 01/09/2017 8:14 PM Dictated Date/Time: 01/09/2017 8:07 PM Laboratory Results 01/09/17 16:40 Red Blood Count 3.21, Mean Corpuscular Volume 99.7, Mean Corpuscular Hemoglobin 32.4, Mean Corpuscular Hemoglobin Concent 32.5, Mean Platelet Volume 9.1, Neutrophils (%) (Auto) 59.1, Lymphocytes (%) (Auto) 30.1, Monocytes (%) (Auto) 8.0, Eosinophils (%) (Auto) 2.4, Basophils (%) (Auto) 0.2, Neutrophils # (Auto) 3.42, Lymphocytes # (Auto) 1.74, Monocytes # (Auto) 0.46, Eosinophils # (Auto) 0.14, Basophils # (Auto) 0.01 01/09/17 16:40 Test 01/09/17 16:40 01/09/17 17:45 White Blood Count 5.78 K/uL (4.8-10.8) Red Blood Count 3.21 M/uL (4.2-5.4) Hemoglobin 10.4 g/dL (12.0-16.0) Hematocrit 32.0 % (37-47) Mean Corpuscular Volume 99.7 fL (80-100) Mean Corpuscular Hemoglobin 32.4 pg (25-34) Mean Corpuscular Hemoglobin Concent 32.5 g/dl (32-36) Platelet Count 132 K/uL (130-400) Mean Platelet Volume 9.1 fL (7.4-10.4) Neutrophils (%) (Auto) 59.1 % Lymphocytes (%) (Auto) 30.1 % Monocytes (%) (Auto) 8.0 % Eosinophils (%) (Auto) 2.4 % Basophils (%) (Auto) 0.2 % Neutrophils # (Auto) 3.42 K/uL (1.4-6.5) Lymphocytes # (Auto) 1.74 K/uL (1.2-3.4) Monocytes # (Auto) 0.46 K/uL (0.11-0.59) Eosinophils # (Auto) 0.14 K/uL (0-0.5) Basophils # (Auto) 0.01 K/uL (0-0.2) RDW Standard Deviation 56.3 fL (36.4-46.3) RDW Coefficient of Variation 15.5 % (11.5-14.5) Immature Granulocyte % (Auto) 0.2 % Immature Granulocyte # (Auto) 0.01 K/uL (0.00-0.02) Erythrocyte Sedimentation Rate 39 mm/hr (0-21) Prothrombin Time 11.1 SECONDS (9.0-12.0) Prothromb Time International Ratio 1.0 (0.9-1.1) Activated Partial Thromboplast Time 26.9 SECONDS (21.0-31.0) Partial Thromboplastin Ratio 1.0 Anion Gap 5.0 mmol/L (3-11) Est Creatinine Clear Calc Drug Dose 125.7 ml/min Estimated GFR () 97.6 Estimated GFR (Non- 84.2 BUN/Creatinine Ratio 11.1 (10-20) Calcium Level 8.4 mg/dl (8.5-10.1) C-Reactive Protein 2.16 mg/dl (0-0.29) Urine Color DK YELLOW Urine Appearance CLEAR (CLEAR) Urine pH 6.0 (4.5-7.5) Urine Specific [place] 1.029 (1.000-1.030) Urine Protein NEG (NEG) Urine Glucose (UA) TRACE (NEG) Urine Ketones NEG (NEG) Urine Occult Blood NEG (NEG) Urine Nitrite NEG (NEG) Urine Bilirubin NEG (NEG) Urine Urobilinogen NEG (NEG) Urine Leukocyte Esterase NEG (NEG) Laboratory results reviewed by me Medications Administered Medications (Trade) Dose Ordered Sig/Nelda Route Start Time Stop Time Status Last Admin Dose Admin Sodium Chloride 1,000 ml @ 125 mls/hr Q8H STAT IV 01/09/17 16:53 01/10/17 00:52 DC 01/09/17 16:53 125 MLS/HR Promethazine HCl 25 mg/Sodium Chloride 51 ml @ 204 mls/hr NOW STAT IV 01/09/17 17:47 01/09/17 18:01 DC 01/09/17 18:00 204 MLS/HR Diazepam (Valium Tab) 5 mg NOW STAT PO 01/09/17 18:20 01/09/17 18:22 DC 01/09/17 18:25 5 MG Hydromorphone HCl (Dilaudid Inj) 0.5 mg NOW STAT IV 01/09/17 19:01 01/09/17 19:03 DC 01/09/17 19:14 0.5 MG Dexamethasone Sodium Phosphate (Decadron Inj) 10 mg NOW ONCE IV 01/09/17 20:30 01/09/17 20:31 DC 01/09/17 20:37 10 MG Hydromorphone HCl (Dilaudid Inj) 0.5 mg NOW STAT IV 01/09/17 22:27 01/09/17 22:29 DC 01/09/17 22:33 0.5 MG ED Course 1619: The patient was evaluated in room B11B. A complete history and physical exam was performed. Prior records were reviewed. 1653: Ordered NSS 1000 ml @ 125 mls/hr IV. 1747: Ordered Promethazine HCl 25 mg/ Sodium Chloride 51 ml @ 204 mls/hr IV. 180: I reevaluated the patient and she is doing okay. 1820: Ordered Valium Tab 5 mg PO. 1830: I had a long conversation with the patient about pain medication use. 1900: Ordered Dilaudid Inj 0.5 mg IV. 1908: I reevaluated the patient and she is doing okay. 2018: I reevaluated the patient and she is doing fine. 2030: Ordered Decadron Inj 10 mg IV. 2100: Discussed the patient's case with Dr. Varela. Due to the patient's body size, he recommends consulting with a tertiary care center. 2117: Discussed the patient's case with Dr. Taylor. The patient will be transferred to be evaluated for further treatment and disposition. 2132: I talked with the caregiver and updated him on the patient's transfer. 2204: The patient agrees to go to [place]. 7: Ordered Dilaudid Inj 0.5 mg IV. Medical Decision Prior records/ancillary studies reviewed. Triage Nursing notes reviewed and agree them. The patient's history was concerning for back pain. Differential diagnosis: Etiologies such as renal colic, lumbago,fracture, sciatica, cauda equina, cord compression, discitis, infection,aortic disease, metastatic disease, gastrointestinal, as well as others were entertained. Physical findings: As above. No saddle paresthesia. ER treatment provided: IV lock Normal saline hydration IV Dilaudid 2 On reassessment the patient felt better. Diagnostics interpreted by me: The labs revealed an unremarkable CBC and chemistry panel. The patient's inflammatory markers are elevated. Imaging studies: CT scan as above. MRI of the thoracic and lumbar spine as above. The patient presented complaining of worsening back pain different than prior coupled with bowel and bladder incontinence. She noted a history of kidney stones. Because of these issues she underwent advanced imaging. Her lumbar spine MRI was most concerning for possible cauda equina. Consultation: I did consult Dr. Vaerla of orthopedic spine. Given the patient's medical history and her morbid obesity he felt the patient would be best served by evaluation at a tertiary care center. A consultation was placed with [facility]. The case was discussed and diagnostics were reviewed. The patient was transferred for further treatment. [place] Drug Monitoring Program Search Results: patient reviewed within database Drug Monitoring Findings: 17 prescriptions by 11 providers in the last 12 months. Medication Reconcilliation Current Medication List: was personally reviewed by me Blood Pressure Screening Patient's blood pressure: Elevated blood pressure Blood pressure disposition: Elevated BP felt to be situational Consults Time Called: 2057 Consulting Physician: Dr. Varela Returned Call: 2100 Discussed the patient's case with Dr. Varela. Due to the patient's body size, he recommends consulting with a tertiary care center. Additional Consults: Time Called: 2109 Consulted Physician: Dr. Taylor Returned Call: [phone] Additional Comments: Discussed the patient's case with Dr. Dominique Harris. The patient will be transferred to be evaluated for further treatment and disposition. Impression Primary Impression: Cauda equina compression Additional Impression: Back pain Scribe Attestation The scribe's documentation has been prepared under my direction and personally reviewed by me in its entirety. I confirm that the note above accurately reflects all work, treatment, procedures, and medical decision making performed by me. Departure Information Dispostion Transfer Acute Care Facility Referrals Agustina Cummings M.D. (PCP) Patient Instructions [facility] Problem Qualifiers
== END 2017-01-09 23:18 | disposition short-term general hospital (02) ==
LOC: C.EDB 15:55
DX: G83.4 Cauda equina syndrome (principal); M54.6 Pain in thoracic spine; J45.909 Unspecified asthma, uncomplicated; I10 Essential (primary) hypertension; E11.40 Type 2 diabetes mellitus with diabetic neuropathy, unspecified; Z86.718 Personal history of other venous thrombosis and embolism; E66.01 Morbid (severe) obesity due to excess calories; F32.9 Major depressive disorder, single episode, unspecified; F17.200 Nicotine dependence, unspecified, uncomplicated; Z91.81 History of falling; Z90.49 Acquired absence of other specified parts of digestive tract; Z90.710 Acquired absence of both cervix and uterus; Z90.89 Acquired absence of other organs; Z98.890 Other specified postprocedural states; Z83.3 Family history of diabetes mellitus; Z82.49 Family history of ischemic heart disease and other diseases of the circulatory system; Z79.4 Long term (current) use of insulin; Z79.899 Other long term (current) drug therapy

== ENCOUNTER 2017-01-13 08:28 | Emergency (ER) | payer OTHER ==
[~2017-01-13] VITALS: Ht 161.3 cm; Wt 161.8 kg
[~2017-01-13 08:28] MED LIST changes: +CARV12.52 PO; +DULO60CA44 PO; +ESCI1TAB10 PO; +INSDGIPEN SQ; -LEVO100T7 PO; +LEVO200T6 PO; +NVLGI/PEN SC; +OXGN; +PROC5TAB PO; +VLM5CL PO; +XRL20 PO
[2017-01-13 08:31] VITALS: TEMP 36.7; Ht 161.3 cm; Wt 161.8 kg
--- NOTE | 2017-01-13 09:21 | EMERGENCY ROOM VISIT NOTE ---
History First contact with patient: 08:42 Chief Complaint: BACK PAIN Stated Complaint: BACK/SPINE History of Present Illness The patient is a 51 year old female who presents to the Emergency Room with complaints of continued low back pain and leg weakness. She was diagnosed cauda equina from spinal narrowing and disc disease causing incontinence. She was transferred to [facility] and was seen by Dr. Franco of Neurosurgery who recommended surgical treatment but she refused. She wanted to wait on surgery. She was discharged two days ago and stated she was not given medication for the pain. She wanted to get her life in order, including her will and POA prior to the surgery. She is still having bladder incontinence. She does not want surgery this week and is fully aware about permanent neurologic damage or even paralysis. She is here for pain control. Pt denies trauma, LOC, headache , neck pain, fevers, chills, malaise, night sweats, weight losschest pain, breathing difficulties, abdominal pain, saddle parasthesias, bowel dysfunction, numbness, or other complaints. Review of Systems See HPI for pertinent positives and negatives. A total of ten systems were reviewed and were otherwise negative. Past Medical/Surgical History Medical Problems: (1) Abdominal pain (2) Abdominal pain (3) Abdominal pain (4) Abdominal wall cellulitis (5) Acute hypokalemia (6) Acute renal failure syndrome (7) Ankle pain (8) Asthma (9) Atypical syncope (10) Benign hypertension (11) Bipolar disorder (12) Bowel obstruction (13) Cellulitis (14) CELLULITIS ABDOMEN (15) Cellulitis and abscess of trunk (16) Chronic pain (17) Contusion of ankle (18) Contusion of periorbital region, left (19) Degenerative joint disease of spine (20) Dehydration (21) Dehydration (22) Depression (23) Diabetes mellitus type 2 (24) DM (diabetes mellitus screen) (25) Drug-seeking behavior (26) DVT (deep venous thrombosis) (27) Exacerbation of chronic back pain (28) Fall (29) Fracture of fourth metatarsal bone of left foot (30) Gastroesophageal reflux disease (31) Hepatic encephalopathy (32) Hernia of abdominal wall (33) Hyperglycemia (34) Hypokalemia (35) Hypokalemia (36) Hypokalemia (37) Hypokalemia (38) Hypothyroidism (39) Hypoxia (40) Incarcerated ventral hernia (41) Incisional irritation (42) Incisional pain (43) Inguinal lymphadenopathy (44) Insomnia (45) LUMBAGO (46) Migraine (47) Morbid obesity (48) Morbid obesity (49) Morbid obesity (50) Obstructive sleep apnea (51) Pain, dental (52) Rectal bleeding (53) Renal colic on right side (54) Renal insufficiency (55) Renal insufficiency (56) SBO (small bowel obstruction) (57) Seroma, postoperative (58) Sleep apnea (59) Spinal stenosis (60) Supraumbilical hernia Surgical Problems: (1) H/O hernia repair (2) H/O knee surgery (3) H/O: hysterectomy (4) History of cholecystectomy (5) Hx of appendectomy Social History Problems: (1) Diabetic neuropathy Family History Cancer Diabetes mellitus Gallbladder disease Heart disease Hypertension Lung disease Social History Smoking Status: Current Every Day Smoker Alcohol Use: none Drug Use: none Marital Status: single, in relationship Housing Status: lives with family Occupation Status: unemployed, disabled Current/Historical Medications Scheduled Carvedilol (Coreg), 12.5 MG PO BID Diazepam (Diazepam), 1 TAB PO TID Duloxetine Hcl (Cymbalta), 60 MG PO BID Escitalopram Oxalate (Lexapro), 20 MG PO QPM Insulin Aspart (Novolog Flexpen), UNITS SC TIDM Insulin Glargine (Lantus Solostar), 75 UNITS SQ BID Levothyroxine Sodium (Levothyroxine Sodium), 200 MG PO DAILY Omeprazole (Prilosec), 40 MG PO BID Rivaroxaban (Xarelto), 20 MG PO DAILY Scheduled PRN Home O2 Therapy (Oxygen), 3 LITERS NA UD PRN for Shortness of Breath Prochlorperazine Maleate (Compazine), 5 MG PO TID PRN for Nausea Physical Exam Vital Signs Date Time Temp Pulse Resp B/P (MAP) Pulse Ox O2 Delivery O2 Flow Rate FiO2 01/13/17 11:02 65 168/99 97 01/13/17 10:13 62 146/78 97 01/13/17 08:31 36.7 108 22 160/93 97 Room Air Physical Exam GENERAL: Awake, alert, uncomfortable-appearing, in no distress HENT: Normocephalic, atraumatic. Oropharynx unremarkable. EYES: Normal conjunctiva. Sclera non-icteric. NECK: Supple. No nuchal rigidity. FROM. No JVD. RESPIRATORY: Clear to auscultation. CARDIAC: Regular rate, normal rhythm. Extremities warm and well perfused. Pulses equal. ABDOMEN: Soft, non-distended. No tenderness to palpation. No rebound or guarding. No masses. RECTAL: Deferred. MUSCULOSKELETAL: Chest examination reveals no tenderness. The back is symmetrical on inspection without obvious abnormality. There is no CVA tenderness to palpation. No joint edema. LOWER EXTREMITIES: Calves are equal size bilaterally and non-tender. No edema. No discoloration. NEURO: Normal sensorium. No sensory or motor deficits noted. No saddle paraesthesia. SKIN: No rash or jaundice noted. Medical Decision & Procedures Medications Administered Medications (Trade) Dose Ordered Sig/Nelda Route Start Time Stop Time Status Last Admin Dose Admin Oxycodone HCl (Roxicodone Immediate Rel Tab) 5 mg NOW STAT PO 01/13/17 10:42 01/13/17 10:43 DC 01/13/17 10:42 5 MG Medical Decision Etiologies such as lumbago, sciatica, cauda equina, epidural abscess, osteomyelitis, fracture, aortic disease, metastatic disease, infection, renal colic, gastrointestinal, as well as others were entertained. Triage Nursing notes reviewed. The patient's presentation and history were concerning for continued back pain. The patient was seen by me the other day and had been diagnosed with cauda equina syndrome. She notes that she is still having back pain. I did transfer the patient to [place] under the care of neurosurgery. The patient refused surgery and was discharged without analgesia. She is supposed to follow up with them again. The patient came to the Emergency Room today because of pain control. She had an unchanged neurologic examination. She notes having no further stool incontinence but still has had some issues urinary-rodriguez. The patient's records were obtained from the [place] visit. Surgery was recommended. As the patient refused she will be rescheduled as an outpatient. The patient states that she refused because she was scared to have surgery without having her POA or will in place. I did contact the patient's primary office to discuss the issue with her primary physician, Dr. Cummings. She was not immediately available but her account assistant, Pauline Blanco PA-C was available. She knows the patient well. We discussed the patient's case. Her main issue is pain management until neurosurgery can intervene. The patient is fully aware that she is risking permanent neurologic injury and paralysis. The office will manage her pain until she can follow-up with neurosurgery. Pauline did note that she has had numerous pain medication issues in the past and has had difficulty with pain management. I believe it is most important for the primary office to maintain control over the patient's pain issues and Pauline agreed. The patient was given 5 mg of oxycodone prior to discharge. She felt comfortable with the plan. If she worsens she agrees to come back to the emergency Department I. I encouraged her to expedite her issues so that she can seek neurosurgical care as soon as possible. I gave my usual and customary discussion regarding this issue. Return instructions were outlined and the patient was discharged in stable condition. The patient was able to ambulate on numerous occasions to the bathroom without difficulty. [place] Drug Monitoring [place] Search Results: patient reviewed within database Drug Monitoring Findings: No change from the prior visit. Impression Primary Impression: Back pain Additional Impressions: Cauda equina compression Noncompliance by refusing service Departure Information Dispostion Home / Self-Care Referrals Agustina Cummings M.D. (PCP) Patient Instructions My [facility] Additional Instructions Do not drive today because of medication given in the emergency department. Proceed directly to the [facility] family medicine clinic on the [place] to grape picker your prescription for pain management medication. Get your paperwork and decisions situated as soon as possible so that you can contact surgery at [facility] and have your back problem corrected. Waiting on this can cause permanent neurologic damage, weakness, incontinence issues, or even paralysis. Pain management for this issue will be guided by your primary office only. Return to the ER for worsening back pain, difficulty breathing, fevers, numbness , tingling, loss of bowel or bladder function, worsening of your condition, or as needed. Problem Qualifiers
[2017-01-13] MEDS ORDERED: OXYCODONE HCL IR 5 MG TAB (IMMEDIATE RELEASE) PO STA (10:42)
[2017-01-13 11:02] VITALS: BP 168/99; PULSE 65; O2SAT 97
== END 2017-01-13 11:02 | disposition home or self-care (01) ==
LOC: C.EDB 08:29
DX: M54.5 Low back pain (principal); G83.4 Cauda equina syndrome; Z91.19 Patient's noncompliance with other medical treatment and regimen; E87.6 Hypokalemia; J45.909 Unspecified asthma, uncomplicated; I10 Essential (primary) hypertension; F31.9 Bipolar disorder, unspecified; E11.9 Type 2 diabetes mellitus without complications; Z86.718 Personal history of other venous thrombosis and embolism; K21.9 Gastro-esophageal reflux disease without esophagitis; E03.9 Hypothyroidism, unspecified; G47.00 Insomnia, unspecified; E66.01 Morbid (severe) obesity due to excess calories; G47.33 Obstructive sleep apnea (adult) (pediatric); N28.9 Disorder of kidney and ureter, unspecified; M48.00 Spinal stenosis, site unspecified; Z80.9 Family history of malignant neoplasm, unspecified; Z83.3 Family history of diabetes mellitus; Z83.79 Family history of other diseases of the digestive system; Z82.49 Family history of ischemic heart disease and other diseases of the circulatory system; Z83.6 Family history of other diseases of the respiratory system; F17.210 Nicotine dependence, cigarettes, uncomplicated; Z79.4 Long term (current) use of insulin; Z79.899 Other long term (current) drug therapy; Z79.01 Long term (current) use of 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s

== ENCOUNTER 2017-01-24 05:28 | Emergency (ER) | payer OTHER ==
[~2017-01-24] VITALS: Ht 156.2 cm; Wt 162.1 kg
[2017-01-24 05:31] VITALS: BP 157/93; PULSE 70; TEMP 36.7; O2SAT 93; Ht 156.2 cm; Wt 162.1 kg
--- NOTE | 2017-01-24 06:14 | EMERGENCY ROOM VISIT NOTE ---
History First contact with patient: 05:34 Chief Complaint: HEADACHE Stated Complaint: BACK PAIN,MIGRAINE History of Present Illness The patient is a 51 year old female who presents to the Emergency Room with complaints of headache symptoms as well as low back pain over the past 2 days. The patient has a history of migraine headaches, states this feels similar to her typical headaches. This is not the worse headache of her life. She has a well-documented history of cauda equina on MRI performed roughly 2 weeks ago at this facility. We did transfer the patient to [facility], where surgery was recommended. Evidently the patient refused surgical intervention while under their care and was ultimately discharged home. The patient has been following with her primary care physician for pain control, and has received several prescriptions for controlled substances in the past 2 weeks. The patient states that she took ibuprofen at home earlier today without any improvement of her discomfort. She has not had fever or chills. No neck pain, chest pain, or abdominal pain. She states that her back pain is the same as it has been for several weeks, and evidently she has an upcoming appointment in 8 days for possible surgical evaluation. The patient rates her pain a 10/10. Review of Systems More than 10 systems were reviewed and otherwise negative with the exception of history of present illness. Past Medical/Surgical History Medical Problems: (1) Abdominal pain (2) Abdominal pain (3) Abdominal pain (4) Abdominal wall cellulitis (5) Acute hypokalemia (6) Acute renal failure syndrome (7) Ankle pain (8) Asthma (9) Atypical syncope (10) Benign hypertension (11) Bipolar disorder (12) Bowel obstruction (13) Cellulitis (14) CELLULITIS ABDOMEN (15) Cellulitis and abscess of trunk (16) Chronic pain (17) Contusion of ankle (18) Contusion of periorbital region, left (19) Degenerative joint disease of spine (20) Dehydration (21) Dehydration (22) Depression (23) Diabetes mellitus type 2 (24) DM (diabetes mellitus screen) (25) Drug-seeking behavior (26) DVT (deep venous thrombosis) (27) Exacerbation of chronic back pain (28) Fall (29) Fracture of fourth metatarsal bone of left foot (30) Gastroesophageal reflux disease (31) Hepatic encephalopathy (32) Hernia of abdominal wall (33) Hyperglycemia (34) Hypokalemia (35) Hypokalemia (36) Hypokalemia (37) Hypokalemia (38) Hypothyroidism (39) Hypoxia (40) Incarcerated ventral hernia (41) Incisional irritation (42) Incisional pain (43) Inguinal lymphadenopathy (44) Insomnia (45) LUMBAGO (46) Migraine (47) Morbid obesity (48) Morbid obesity (49) Morbid obesity (50) Obstructive sleep apnea (51) Pain, dental (52) Rectal bleeding (53) Renal colic on right side (54) Renal insufficiency (55) Renal insufficiency (56) SBO (small bowel obstruction) (57) Seroma, postoperative (58) Sleep apnea (59) Spinal stenosis (60) Supraumbilical hernia Surgical Problems: (1) H/O hernia repair (2) H/O knee surgery (3) H/O: hysterectomy (4) History of cholecystectomy (5) Hx of appendectomy Social History Problems: (1) Diabetic neuropathy Family History Cancer Diabetes mellitus Gallbladder disease Heart disease Hypertension Lung disease Social History Smoking Status: Current Every Day Smoker Alcohol Use: none Drug Use: none Marital Status: single, in relationship Housing Status: lives with family Occupation Status: unemployed, disabled Current/Historical Medications Scheduled Carvedilol (Coreg), 12.5 MG PO BID Diazepam (Diazepam), 1 TAB PO TID Duloxetine Hcl (Cymbalta), 60 MG PO BID Escitalopram Oxalate (Lexapro), 20 MG PO QPM Insulin Aspart (Novolog Flexpen), UNITS SC TIDM Insulin Glargine (Lantus Solostar), 75 UNITS SQ BID Levothyroxine Sodium (Levothyroxine Sodium), 200 MG PO DAILY Omeprazole (Prilosec), 40 MG PO BID Rivaroxaban (Xarelto), 20 MG PO DAILY Scheduled PRN Home O2 Therapy (Oxygen), 3 LITERS NA UD PRN for Shortness of Breath Prochlorperazine Maleate (Compazine), 5 MG PO TID PRN for Nausea Physical Exam Vital Signs Date Time Temp Pulse Resp B/P (MAP) Pulse Ox O2 Delivery O2 Flow Rate FiO2 01/24/17 05:31 36.7 70 20 157/93 93 Room Air Physical Exam VITALS: Vitals are noted on the nurse's note and reviewed by myself. Vital signs stable. GENERAL: Obese white female, who is in no acute distress and resting comfortably in her emergency department bed NECK: Supple without nuchal rigidity. No lymphadenopathy. No thyromegaly. Cervical spine is nontender. No meningismus. HEART: Regular rate and rhythm without murmurs gallops or rubs. LUNGS: Clear to auscultation bilaterally without wheezes, rales or rhonchi. No retractions or accessory muscle use. NEURO: Patient was alert and oriented to person place and time. Medical Decision & Procedures ED Course Physical exam and history were performed. Nursing notes, EMR, and Medication List were personally reviewed. Patient appears to have reports of migraine headache as well as chronic back pain. This is not the worst headache of her life. Her back pain has been well evaluated over the past few weeks at this facility. She is refusing to undergo surgical intervention, although this is likely the best course for her. The patient is requesting pain medication here. I offered the patient Toradol and Decadron for her symptoms. The patient refused these interventions. She became belligerent and accusatory, stating that "they always give me the runaround". I explained to the patient that she is on a no narcotic treatment plan at this facility, which has been the case for the past 3 years. This has been a constant position with this patient, and certainly does not represent a "runaround". The patient is well aware of her treatment plan, stating "they always say that---it's at the doctor's discretion to give me pain medicine". I explained to the patient that it would be reasonable to provide her Toradol and Decadron. She is allergic to Tylenol as well as several other narcotic medications. I calmly reiterated we would not be providing her narcotic intervention for her symptoms. The patient was very dissatisfied with this information. At this point she refuses all other physical exam or medical evaluation. The patient eloped from the emergency department AGAINST MEDICAL ADVICE. The patient is exhibiting drug seeking behavior to an extent that she is sabotaging her own health to acquire narcotic medication. Her case will be monitored to the future. I do not feel comfortable providing her any controlled substances considering her recent history and behavior. Of note, the patient was able to ambulate without limp from the department upon elopement. This was in contrast to her presenting ambulatory status where she required a wheelchair. The chart was completed utilizing Dragon Speech Voice Recognition Software. Grammatical errors, random word insertions, pronoun errors, and incomplete sentences are an occasional consequence of this system due to software limitations, ambient noise, and hardware issues. Any formal questions or concerns about the content, text, or information contained within the body of this dictation should be directly addressed to the provider for clarification. . Medical Decision Differential diagnosis: Etiologies such as drug seeking, musculoskeletal, disc herniation, fracture, aortic disease, metastatic disease, cord compression, discitis, infection, renal colic, gastrointestinal, acute exacerbation of chronic back pain, sciatica , cauda equina, as well as others were entertained. [place] Drug [place] Search Results: patient reviewed within database (Multiple recent prescriptions for narcotics in the past 2 weeks) Impression Primary Impression: Drug-seeking behavior Additional Impressions: Headache Back pain Departure Information Dispostion Against Medical Advice (Elopement) Condition GOOD Forms HOME CARE DOCUMENTATION FORM, IMPORTANT VISIT INFORMATION Patient Instructions My [facility] Problem Qualifiers
== END 2017-01-24 05:45 | disposition left against medical advice (07) ==
LOC: C.EDB 05:29 → C.EDA 05:45
DX: Z72.89 Other problems related to lifestyle (principal); Z76.5 Malingerer [conscious simulation]; R51 Headache; M54.5 Low back pain; E11.43 Type 2 diabetes mellitus with diabetic autonomic (poly)neuropathy; J45.909 Unspecified asthma, uncomplicated; I10 Essential (primary) hypertension; F31.9 Bipolar disorder, unspecified; G89.29 Other chronic pain; Z86.718 Personal history of other venous thrombosis and embolism; K21.9 Gastro-esophageal reflux disease without esophagitis; E03.9 Hypothyroidism, unspecified; G47.33 Obstructive sleep apnea (adult) (pediatric); E66.01 Morbid (severe) obesity due to excess calories; Z68.44 Body mass index [BMI] 60.0-69.9, adult; Z90.710 Acquired absence of both cervix and uterus; Z90.49 Acquired absence of other specified parts of digestive tract; F17.210 Nicotine dependence, cigarettes, uncomplicated; Z80.9 Family history of malignant neoplasm, unspecified; Z83.3 Family history of diabetes mellitus; Z82.49 Family history of ischemic heart disease and other diseases of the circulatory system; Z79.4 Long term (current) use of insulin; Z79.899 Other long term (current) drug therapy

== ENCOUNTER 2017-02-09 04:09 | Emergency (ER) | payer OTHER ==
[~2017-02-09] VITALS: Ht 161.3 cm; Wt 157.0 kg
[2017-02-09 04:14] VITALS: TEMP 36.8; Ht 161.3 cm; Wt 157.0 kg
--- NOTE | 2017-02-09 04:24 | EMERGENCY ROOM VISIT NOTE ---
History Report prepared by Cary: Tae Alvarenga Under the Supervision of: Dr. Nic Joseph M.D. First contact with patient: 04:16 Chief Complaint: FLANK PAIN Stated Complaint: LOW BACK PAIN History of Present Illness The patient is a 51 year old female who presents to the Emergency Room with complaints of constant left flank pain starting yesterday morning. The patient states that she additionally has been having some hematuria, burning with urination, and nausea. She additionally states that she has chronic back pain and is going to be having surgery. The patient denies any loss of consciousness and fever. She states that she has a history of kidney stones, and she has taken Percocet for the pain. Source of History: patient Onset: er morning Position: other (left flank) Timing: constant Associated Symptoms: + nausea, + urinary symptoms, No LOC, No fevers Review of Systems See HPI for pertinent positives & negatives. A total of 10 systems reviewed and were otherwise negative. Past Medical & Surgical Medical Problems: (1) Abdominal pain (2) Abdominal pain (3) Abdominal pain (4) Abdominal wall cellulitis (5) Acute hypokalemia (6) Acute renal failure syndrome (7) Ankle pain (8) Asthma (9) Atypical syncope (10) Benign hypertension (11) Bipolar disorder (12) Bowel obstruction (13) Cellulitis (14) CELLULITIS ABDOMEN (15) Cellulitis and abscess of trunk (16) Chronic pain (17) Contusion of ankle (18) Contusion of periorbital region, left (19) Degenerative joint disease of spine (20) Dehydration (21) Dehydration (22) Depression (23) Diabetes mellitus type 2 (24) DM (diabetes mellitus screen) (25) Drug-seeking behavior (26) DVT (deep venous thrombosis) (27) Exacerbation of chronic back pain (28) Fall (29) Fracture of fourth metatarsal bone of left foot (30) Gastroesophageal reflux disease (31) Hepatic encephalopathy (32) Hernia of abdominal wall (33) Hyperglycemia (34) Hypokalemia (35) Hypokalemia (36) Hypokalemia (37) Hypokalemia (38) Hypothyroidism (39) Hypoxia (40) Incarcerated ventral hernia (41) Incisional irritation (42) Incisional pain (43) Inguinal lymphadenopathy (44) Insomnia (45) LUMBAGO (46) Migraine (47) Morbid obesity (48) Morbid obesity (49) Morbid obesity (50) Obstructive sleep apnea (51) Pain, dental (52) Rectal bleeding (53) Renal colic on right side (54) Renal insufficiency (55) Renal insufficiency (56) SBO (small bowel obstruction) (57) Seroma, postoperative (58) Sleep apnea (59) Spinal stenosis (60) Supraumbilical hernia Surgical Problems: (1) H/O hernia repair (2) H/O knee surgery (3) H/O: hysterectomy (4) History of cholecystectomy (5) Hx of appendectomy Social History Problems: (1) Diabetic neuropathy Family History Cancer Diabetes mellitus Gallbladder disease Heart disease Hypertension Lung disease Social History Smoking Status: Current Every Day Smoker Alcohol Use: none Drug Use: none Marital Status: single, in relationship Housing Status: lives with family Occupation Status: unemployed, disabled Current/Historical Medications Scheduled Carvedilol (Coreg), 12.5 MG PO BID Cefdinir (Omnicef), 300 MG PO Q12H Diazepam (Diazepam), 1 TAB PO TID Duloxetine Hcl (Cymbalta), 60 MG PO BID Escitalopram Oxalate (Lexapro), 20 MG PO QPM Insulin Aspart (Novolog Flexpen), UNITS SC TIDM Insulin Glargine (Lantus Solostar), 75 UNITS SQ BID Levothyroxine Sodium (Levothyroxine Sodium), 200 MG PO DAILY Omeprazole (Prilosec), 40 MG PO BID Rivaroxaban (Xarelto), 20 MG PO DAILY Scheduled PRN Home O2 Therapy (Oxygen), 3 LITERS NA UD PRN for Shortness of Breath Prochlorperazine Maleate (Compazine), 5 MG PO TID PRN for Nausea Allergies Coded Allergies: Iodinated Diagnostic Agents (Verified Allergy, Intermediate, hives, ) Per patient she has had it since without problem (01/25/16 Ioversal given with no pretreats and no mention of rxn; also given Ioversal 11/26/06 with pretreats) Adhesives (Verified Allergy, Mild, RED RASH CAUSED BY PAPER TAPE, 02/09/17 ) Alprazolam (Verified Allergy, Unknown, MAKES LOOPY,DO AND SAY SILLY THINGS , 02/09/17) Metformin (Verified Allergy, Unknown, HANDS FEET FACE NUMB, 02/09/17) Vancomycin (Verified Adverse Reaction, Severe, renal failure, required dialysis x 3 MONTHS, 02/09/17) Methylparaben (Verified Adverse Reaction, Intermediate, FLUID RETENTION, 02/09/17) Oxymorphone (Verified Adverse Reaction, Intermediate, FLUID RETENTION, ) Gabapentin (Verified Adverse Reaction, Mild, Aphasia/Speech impairments, 02/09/17) Sulfa Antibiotics (Verified Adverse Reaction, Mild, GI SYMPTOMS, 02/09/17) Acetaminophen (Verified Adverse Reaction, Unknown, Liver problems., ) Codeine (Verified Adverse Reaction, Unknown, UPSET STOMACH, 02/09/17) Pregabalin (Verified Adverse Reaction, Unknown, Aphasia/Speech impairments , 02/09/17) Physical Exam Vital Signs Date Time Temp Pulse Resp B/P (MAP) Pulse Ox O2 Delivery O2 Flow Rate FiO2 02/09/17 06:18 52 20 107/66 97 02/09/17 05:14 53 18 97/55 95 Room Air 02/09/17 04:14 36.8 56 20 127/105 98 Room Air Physical Exam GENERAL: Patient is well appearing and in minimal distress. Ambulating without difficulty. HEENT: No acute trauma, normocephalic atraumatic, mucous membranes moist, no nasal congestion, no scleral icterus. NECK: No stridor, no adenopathy, no meningismus, trachea is midline. LUNGS: No dyspnea. Clear to auscultation and equal bilaterally. No wheeze, no rhonchi. HEART: Regular rate and rhythm. No murmurs, rubs, gallops appreciated. ABDOMEN: Soft, nontender, bowel sounds positive, no masses appreciated, no peritonitis. BACK: No midline tenderness, no CVA tenderness EXTREMITIES: Normal motion all extremities, no cyanosis, no edema. NEUROLOGIC: Alert and oriented, no acute motor or sensory deficits, no focal weakness, cranial nerves grossly intact. SKIN: No rash, no jaundice, no diaphoresis. Medical Decision & Procedures ER Provider Diagnostic Interpretation: Radiology results and stated below per my review and radiologist interpretation: CT ABDOMEN & PELVIS Without Contrast: Comparison: CT abdomen and pelvis, 01/09/17. No hydronephrosis or obstructing radiopaque stones. Stable nonobstructing stone in the lower pole of the left kidney. Status post appendectomy. No evidence of bowel obstruction or diverticulitis. Status post cholecystectomy. Cirrhotic liver and stigmata of portal hypertension including splenomegaly. Pancreas and adrenal glands are unremarkable. Status post cholecystectomy, hysterectomy. Redemonstrated infiltration of the subcutaneous fat of the anterior abdominal wall. No acute osseous findings. Lumbar spondylosis. Radiologist: Stephenie Prasad M.D. Laboratory Results Test 02/09/17 04:15 Urine Color DK YELLOW Urine Appearance CLOUDY (CLEAR) Urine pH 5.5 (4.5-7.5) Urine Specific Shannon 1.026 (1.000-1.030) Urine Protein 1+ (NEG) Urine Glucose (UA) NEG (NEG) Urine Ketones NEG (NEG) Urine Occult Blood 3+ (NEG) Urine Nitrite POS (NEG) Urine Bilirubin NEG (NEG) Urine Urobilinogen NEG (NEG) Urine Leukocyte Esterase MODERATE (NEG) Urine WBC (Auto) >30 /hpf (0-5) Urine RBC (Auto) >30 /hpf (0-4) Urine Hyaline Casts (Auto) 5-10 /lpf (0-5) Urine Epithelial Cells (Auto) >30 /lpf (0-5) Urine Bacteria (Auto) 4+ (NEG) Laboratory results as reviewed by me. Medications Administered Medications (Trade) Dose Ordered Sig/Nelda Route Start Time Stop Time Status Last Admin Dose Admin Cefixime (Suprax Tab) 400 mg NOW STAT PO 02/09/17 05:55 02/09/17 05:57 DC 02/09/17 06:16 400 MG ED Course 0416: The patient was evaluated in room B12. A complete history and physical exam was performed. 0552: Reevaluated the patient. Discussed results and discharge instructions: She verbalized understanding and agreement. The patient is ready for discharge. 0555: Suprax Tab 400mg PO Medical Decision Differential: Renal Colic, Pyelonephritis, UTI, Hydronephrosis, Diverticulitis, Retroperitoneal Bleed/Infection, Aortic Pathology, MSK, Neurologic Pathology, amongst other pathologies entertained. 51 yr old female arrives for evaluation of blood in urine and left flank pain. Makes clear low back pain continued that has been ongoing for last month with known cauda equina with planned surgery but states legs working well, no further urinary nor bowel control issues. She states no change to back pain and it is stable. She is already following with nrsg for this. She is stable and in no distress. Took percocet prior to coming in as well. No CVA TTP no fevers, no tachycardia and she looks in no distress. Very dirty urine that it tough to say if truly infected or just poor catch but with some blood seems reasonable this is UTI. No evidence new stone nor obstructions left flank. She is found sleeping on multiple re-evaluations. I have reviewed at length symptoms requiring return and need to follow up with her PCP. [place] Drug Monitoring Program Search Results: patient reviewed within database Drug Monitoring Findings: Extensive multiple narcotic/controlled prescriptions over the past year from many different providers including multiple within the last month. Medication Reconcilliation Current Medication List: was personally reviewed by me Blood Pressure Screening Patient's blood pressure: Normal blood pressure Impression Primary Impression: Urinary tract infection Additional Impression: Left flank pain Scribe Attestation The scribe's documentation has been prepared under my direction and personally reviewed by me in its entirety. I confirm that the note above accurately reflects all work, treatment, procedures, and medical decision making performed by me. Departure Information Dispostion Home / Self-Care Prescriptions Cefdinir (Omnicef) 300 Mg Cap 300 MG PO Q12H for 7 Days, #14 CAP Prov: Nic Joseph M.D. 02/09/17 Referrals No Doctor, Assigned (PCP) Forms HOME CARE DOCUMENTATION FORM, IMPORTANT VISIT INFORMATION Patient Instructions My [facility], Urinary Tract Infecs Women Problem Qualifiers
[2017-02-09 05:47] LABS: MANUAL MICROSCOPIC REQUIRED? NO; REVIEW REQ? NO; URINE APPEARANCE CLOUDY (CLEAR); URINE BILIRUBIN NEG (NEG); URINE COLOR DK YELLOW; URINE EPITHELIAL CELL AUTO >30 /lpf (0-5); URINE NITRITE POS (NEG); URINE PH 5.5 (4.5-7.5); URINE SPECIFIC GRAVITY 1.026 (1.000-1.030); UROBILINOGEN NEG (NEG); ZZUR CULT IF INDIC CLEAN CATCH YES
[2017-02-09] MEDS ORDERED: CEFIXIME TAB 400 MG CAP PO STA (05:55)
[2017-02-09] MEDS ORDERED: CEFD1CAP14 PO (05:58)
[2017-02-09 06:18] VITALS: BP 107/66; PULSE 52; O2SAT 97
--- NOTE | 2017-02-09 07:38 | DIAGNOSTIC IMAGING REPORT ---
CT OF THE ABDOMEN AND PELVIS WITHOUT CONTRAST, STONE PROTOCOL CLINICAL HISTORY: Left flank pain. COMPARISON STUDY: CT of the abdomen and pelvis January 09, 2017. TECHNIQUE: Helical axial images of the abdomen and pelvis were obtained without IV or oral contrast according to renal stone protocol. A dose lowering technique was utilized adhering to the principles of ALARA. FINDINGS: Evaluation of the abdomen and pelvis is suboptimal on this unenhanced exam. Cirrhosis is noted with stable splenomegaly. There is no ascites. Sensitivity for detection of hepatic lesions is diminished on this unenhanced exam but none are identified. The gallbladder is surgically absent. Postoperative findings involving the anterior abdominal wall with subcutaneous infiltration are unchanged. No pneumatosis, free air or portal venous gas is present. Unenhanced images of the adrenal glands and pancreas are normal. There is a 6 mm left renal calculus. There are no ureteral calculi. No suspicious osseous lesions are present. Multilevel degenerative changes are the lumbar spine are suboptimally assessed by CT. Upper abdominal lymphadenopathy is unchanged. IMPRESSION: 1. 6 mm left renal calculus. No ureteral calculi or hydronephrosis. 2. Cirrhosis with stable splenomegaly indicative of portal hypertension. No significant change in mild nonspecific upper abdominal lymphadenopathy. 3. No acute process within the abdomen or pelvis on unenhanced exam. 4. Stable postoperative findings involving the anterior abdominal wall with subcutaneous infiltration. Electronically signed by: Vini Alvarado M.D. 02/09/2017 7:37 AM Dictated Date/Time: 02/09/2017 7:26 AM
--- NOTE | 2017-02-11 14:11 | Pharmacy Progress Note ---
ED Pharmacist Culture FollowUp Date of Service: Feb 11, 2017. Patient was sent home with a prescription for cefdinir, which should cover the E. coli growing from the patient's urine culture.
== END 2017-02-09 06:20 | disposition home or self-care (01) ==
LOC: EDBD 04:09 → C.EDB 04:10
DX: N39.0 Urinary tract infection, site not specified (principal); M54.5 Low back pain; G89.29 Other chronic pain; J45.909 Unspecified asthma, uncomplicated; I10 Essential (primary) hypertension; F31.9 Bipolar disorder, unspecified; E11.40 Type 2 diabetes mellitus with diabetic neuropathy, unspecified; E03.9 Hypothyroidism, unspecified; K21.9 Gastro-esophageal reflux disease without esophagitis; Z87.442 Personal history of urinary calculi; Z83.3 Family history of diabetes mellitus; Z83.79 Family history of other diseases of the digestive system; Z82.49 Family history of ischemic heart disease and other diseases of the circulatory system; F17.200 Nicotine dependence, unspecified, uncomplicated; Z79.01 Long term (current) use of 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s; Z79.4 Long term (current) use of insulin; Z86.718 Personal history of other venous thrombosis and embolism

== ENCOUNTER 2017-03-27 21:07 | Emergency (ER) | payer OTHER ==
[~2017-03-27] VITALS: Ht 160 cm; Wt 155.0 kg
[~2017-03-27 21:07] MED LIST changes: -PRLSR20 PO
[2017-03-27 21:09] VITALS: Ht 160 cm; Wt 155.0 kg
[2017-03-27 22:01] LABS: BASO % 0.2 %; BASO ABS # 0.02 K/uL (0-0.2); COMPLETE YES; EOS % 1.1 %; HEMATOCRIT 43.9 % (37-47); IG% 0.1 %; LYMPH % 27.9 %; LYMPH ABS # 2.25 K/uL (1.2-3.4); MEAN CELL VOLUME 94.2 fL (80-100); MEAN CORPUSCULAR HGB CONC 33.9 g/dl (32-36); MEAN PLATELET VOLUME 9.5 fL (7.4-10.4); MONO % 6.8 %; NEUT % 63.9 %; PLATELET COUNT 148 K/uL (130-400); RED BLOOD COUNT 4.66 M/uL (4.2-5.4); WHITE BLOOD COUNT 8.06 K/uL (4.8-10.8)
[2017-03-27] MEDS ORDERED: ONDANSETRON 4MG OD TAB PO STA (22:12)
--- NOTE | 2017-03-27 22:14 | DIAGNOSTIC IMAGING REPORT ---
PA CHEST WITH ABDOMINAL SERIES CLINICAL HISTORY: Right-sided chest wall pain. FINDINGS: A PA chest radiograph is compared to study dated 01/09/2017. The examination is degraded by large body habitus. The heart is top normal for projection. The pulmonary vasculature is noncongested. The lungs and pleural spaces are clear. No pneumothorax is seen. The skeletal structures are osteopenic. The bony thorax is grossly intact. Supine and erect abdominal radiographs are correlated with abdominal CT dated 01/09/2017. The examination is degraded by large body habitus. Cholecystectomy clips are noted. Surgical clips are also seen in the right lower quadrant. There is a nonobstructed abdominal bowel gas pattern. No evidence of intraperitoneal free air is seen. There is moderate colonic fecal retention. Pelvic phleboliths are observed. There are no abnormal abdominal calcifications. Degenerative change and scoliosis are noted in the lumbar spine. The lumbosacral spine and bony pelvis appear intact. IMPRESSION: 1. No active disease in the chest. 2. Nonobstructed abdominal bowel gas pattern. Electronically signed by: Juan Doran M.D. 03/27/2017 10:13 PM Dictated Date/Time: 03/27/2017 10:10 PM
[2017-03-27 22:23] LABS: BUN/CREATININE RATIO 6.9 (10-20); CALCIUM 8.8 mg/dl (8.5-10.1); CREATININE 1.06 mg/dl (0.60-1.20); POTASSIUM 3.7 mmol/L (3.5-5.1)
[2017-03-27 22:25] LABS: ALB/GLOB RATIO 0.6 (0.9-2)
[2017-03-27] MEDS ORDERED: KETOROLAC TROMETHAMINE 30 MG/ML VIAL IV STA (23:20)
[2017-03-27] MEDS ORDERED: ONDANSETRON HOME PACK 4MG OD TAB PO ONE (23:30)
[2017-03-27 23:39] VITALS: BP 152/91; PULSE 53; TEMP 36.5; O2SAT 96
--- NOTE | 2017-03-27 23:47 | EMERGENCY ROOM VISIT NOTE ---
ED Visit Note First contact with patient: 21:23 Patient seen by me with the physician certified first assistant. I reviewed the patient's labs as well as patient's EKG which is nonischemic. We've discussed the evaluation with the patient at bedside and plan is for disposition home Problem List Medical Problems: (1) Abdominal pain Status: Resolved (2) Abdominal pain Status: Resolved (3) Abdominal pain Status: Resolved (4) Abdominal wall cellulitis Status: Resolved (5) Acute hypokalemia Status: Resolved (6) Acute renal failure syndrome Status: Resolved (7) Ankle pain Status: Resolved (8) Asthma Status: Chronic (9) Atypical syncope Status: Resolved (10) Benign hypertension Status: Chronic (11) Bipolar disorder Status: Chronic (12) Bowel obstruction Status: Resolved (13) Cellulitis Status: Resolved (14) CELLULITIS ABDOMEN Status: Resolved (15) Cellulitis and abscess of trunk Status: Resolved (16) Chronic pain Status: Chronic (17) Contusion of ankle Status: Resolved (18) Contusion of periorbital region, left Status: Resolved (19) Degenerative joint disease of spine Status: Chronic (20) Dehydration Status: Resolved (21) Dehydration Status: Resolved (22) Depression Status: Chronic (23) Diabetes mellitus type 2 Status: Chronic (24) DM (diabetes mellitus screen) Status: Chronic (25) Drug-seeking behavior Status: Chronic (26) DVT (deep venous thrombosis) Status: Resolved (27) Exacerbation of chronic back pain Status: Resolved (28) Fall Status: Resolved (29) Fracture of fourth metatarsal bone of left foot Status: Resolved (30) Gastroesophageal reflux disease Status: Chronic (31) Hepatic encephalopathy Status: Resolved (32) Hernia of abdominal wall Status: Chronic (33) Hyperglycemia Status: Resolved (34) Hypokalemia Status: Resolved (35) Hypokalemia Status: Resolved (36) Hypokalemia Status: Resolved (37) Hypokalemia Status: Resolved (38) Hypothyroidism Status: Chronic (39) Hypoxia Status: Resolved (40) Incarcerated ventral hernia Status: Resolved (41) Incisional irritation Status: Resolved (42) Incisional pain Status: Resolved (43) Inguinal lymphadenopathy Status: Resolved (44) Insomnia Status: Chronic (45) LUMBAGO Status: Chronic (46) Migraine Status: Chronic (47) Morbid obesity Status: Resolved (48) Morbid obesity Status: Chronic (49) Morbid obesity Status: Chronic (50) Obstructive sleep apnea Status: Chronic (51) Pain, dental Status: Resolved (52) Renal colic on right side Status: Resolved (53) Renal insufficiency Status: Resolved (54) Renal insufficiency Status: Resolved (55) SBO (small bowel obstruction) Status: Resolved (56) Seroma, postoperative Status: Resolved (57) Sleep apnea Status: Resolved (58) Spinal stenosis Status: Chronic (59) Supraumbilical hernia Status: Chronic Surgical Problems: (1) H/O hernia repair Status: Chronic (2) H/O knee surgery Status: Resolved (3) H/O: hysterectomy Status: Resolved (4) History of cholecystectomy Status: Resolved (5) Hx of appendectomy Status: Resolved Social History Problems: (1) Diabetic neuropathy Status: Chronic Current/Historical Medications Scheduled Carvedilol (Coreg), 12.5 MG PO BID Duloxetine Hcl (Cymbalta), 60 MG PO BID Escitalopram Oxalate (Lexapro), 20 MG PO QPM Insulin Aspart (Novolog Flexpen), UNITS SC TIDM Insulin Glargine (Lantus Solostar), 75 UNITS SQ BID Levothyroxine Sodium (Levothyroxine Sodium), 200 MG PO DAILY Rivaroxaban (Xarelto), 20 MG PO DAILY Scheduled PRN Home O2 Therapy (Oxygen), 3 LITERS NA UD PRN for Shortness of Breath Allergies Coded Allergies: Iodinated Diagnostic Agents (Verified Allergy, Intermediate, hives, ) Per patient she has had it since without problem (01/25/16 Ioversal given with no pretreats and no mention of rxn; also given Ioversal 11/26/06 with pretreats) Adhesives (Verified Allergy, Mild, RED RASH CAUSED BY PAPER TAPE, 03/27/17) Alprazolam (Verified Allergy, Unknown, MAKES LOOPY,DO AND SAY SILLY THINGS , 03/27/17) Metformin (Verified Allergy, Unknown, HANDS FEET FACE NUMB, 03/27/17) Vancomycin (Verified Adverse Reaction, Severe, renal failure, required dialysis x 3 MONTHS, 03/27/17) Methylparaben (Verified Adverse Reaction, Intermediate, FLUID RETENTION, 03/27/17) Oxymorphone (Verified Adverse Reaction, Intermediate, FLUID RETENTION, 03/27/17) Gabapentin (Verified Adverse Reaction, Mild, Aphasia/Speech impairments, 03/27/17) Sulfa Antibiotics (Verified Adverse Reaction, Mild, GI SYMPTOMS, 03/27/17) Acetaminophen (Verified Adverse Reaction, Unknown, Liver problems., ) Codeine (Verified Adverse Reaction, Unknown, UPSET STOMACH, 03/27/17) Pregabalin (Verified Adverse Reaction, Unknown, Aphasia/Speech impairments , 03/27/17) Vital Signs Date Time Temp Pulse Resp B/P (MAP) Pulse Ox O2 Delivery O2 Flow Rate FiO2 03/27/17 23:39 36.5 53 20 152/91 96 Room Air 03/27/17 22:33 37.0 53 20 138/83 96 Room Air 03/27/17 22:12 61 03/27/17 21:09 36.7 65 20 160/111 96 Room Air Laboratory Results 03/27/17 21:45 Red Blood Count 4.66, Mean Corpuscular Volume 94.2, Mean Corpuscular Hemoglobin 32.0, Mean Corpuscular Hemoglobin Concent 33.9, Mean Platelet Volume 9.5, Neutrophils (%) (Auto) 63.9, Lymphocytes (%) (Auto) 27.9, Monocytes (%) (Auto) 6.8, Eosinophils (%) (Auto) 1.1, Basophils (%) (Auto) 0.2, Neutrophils # (Auto) 5.14, Lymphocytes # (Auto) 2.25, Monocytes # (Auto) 0.55, Eosinophils # (Auto) 0.09, Basophils # (Auto) 0.02 03/27/17 21:45 Test 03/27/17 21:45 03/27/17 21:48 03/27/17 23:17 White Blood Count 8.06 K/uL (4.8-10.8) Red Blood Count 4.66 M/uL (4.2-5.4) Hemoglobin 14.9 g/dL (12.0-16.0) Hematocrit 43.9 % (37-47) Mean Corpuscular Volume 94.2 fL (80-100) Mean Corpuscular Hemoglobin 32.0 pg (25-34) Mean Corpuscular Hemoglobin Concent 33.9 g/dl (32-36) Platelet Count 148 K/uL (130-400) Mean Platelet Volume 9.5 fL (7.4-10.4) Neutrophils (%) (Auto) 63.9 % Lymphocytes (%) (Auto) 27.9 % Monocytes (%) (Auto) 6.8 % Eosinophils (%) (Auto) 1.1 % Basophils (%) (Auto) 0.2 % Neutrophils # (Auto) 5.14 K/uL (1.4-6.5) Lymphocytes # (Auto) 2.25 K/uL (1.2-3.4) Monocytes # (Auto) 0.55 K/uL (0.11-0.59) Eosinophils # (Auto) 0.09 K/uL (0-0.5) Basophils # (Auto) 0.02 K/uL (0-0.2) RDW Standard Deviation 57.2 fL (36.4-46.3) RDW Coefficient of Variation 16.8 % (11.5-14.5) Immature Granulocyte % (Auto) 0.1 % Immature Granulocyte # (Auto) 0.01 K/uL (0.00-0.02) Anion Gap 10.0 mmol/L (3-11) Est Creatinine Clear Calc Drug Dose 90.5 ml/min Estimated GFR () 69.4 Estimated GFR (Non- 59.9 BUN/Creatinine Ratio 6.9 (10-20) Calcium Level 8.8 mg/dl (8.5-10.1) Total Bilirubin 0.9 mg/dl (0.2-1) Aspartate Amino Transf (AST/SGOT) 21 U/L (15-37) Alanine Aminotransferase (ALT/SGPT) 17 U/L (12-78) Alkaline Phosphatase 111 U/L (45-117) Total Protein 7.7 gm/dl (6.4-8.2) Albumin 3.0 gm/dl (3.4-5.0) Globulin 4.7 gm/dl (2.5-4.0) Albumin/Globulin Ratio 0.6 (0.9-2) Lipase 52 U/L (73-393) Bedside Troponin I < 0.030 ng/ml (0-0.045) Medications Administered Medications (Trade) Dose Ordered Sig/Nelda Route Start Time Stop Time Status Last Admin Dose Admin Ondansetron HCl (Zofran Odt) 4 mg NOW STAT PO 03/27/17 22:12 12/3/17 22:13 DC 03/27/17 22:27 4 MG Ketorolac Tromethamine (Toradol Inj) 30 mg NOW STAT IV 03/27/17 23:20 03/27/17 23:21 DC 03/27/17 23:34 30 MG Ondansetron HCl (ZOFRAN ODT 4MG Home Pack) 1 homepack UD ONCE PO 03/27/17 23:30 03/27/17 23:31 DC 03/27/17 23:34 1 HOMEPACK Departure Information Impression Primary Impression: Right-sided chest wall pain Dispostion Home / Self-Care Condition GOOD Forms HOME CARE DOCUMENTATION FORM, IMPORTANT VISIT INFORMATION Patient Instructions My [facility] Additional Instructions You were seen and evaluated today on an emergency basis only. This is not a substitute for, or an effort to provide, complete comprehensive medical care. It is not possible to recognize and treat all injuries or illnesses in a single emergency department visit. For this reason it is recommended that you followup with your primary care physician next one to 2 days for recheck. Zofran 4 mg ODT: Dissolve 1 tablet every 6 hrs as needed for nausea. Drink plenty of fluids and remain well hydrated. You are welcome to return to the emergency department anytime with new, worsening, or concerning symptoms.
[2017-03-27 23:57] LABS: URINE APPEARANCE CLEAR (CLEAR); URINE BILIRUBIN NEG (NEG); URINE COLOR DK YELLOW; URINE NITRITE POS (NEG); URINE PH 6.5 (4.5-7.5); URINE SPECIFIC GRAVITY 1.021 (1.000-1.030); UROBILINOGEN NEG (NEG); ZZUR CULT IF INDIC CLEAN CATCH YES
[2017-03-27 23:59] LABS: MANUAL MICROSCOPIC REQUIRED? NO; REVIEW REQ? NO
--- NOTE | 2017-03-28 00:28 | EMERGENCY ROOM VISIT NOTE ---
History First contact with patient: 21:23 Chief Complaint: FLANK PAIN Stated Complaint: PAIN ON LT SIDE History of Present Illness The patient is a 51 year old female who presents to the Emergency Room with complaints of right side chest/abdominal pain that began 4 hours ago. The patient does not report a distinct injury or trauma. She is nauseated without vomiting. She does not have difficulty breathing, and her discomfort worsens when you press in the area. The patient did not take anything [id number] for her symptoms. Her past medical history is significant for cholecystectomy. She has been eating, drinking, and using the bathroom as normal. She does not identify additional aggravating or alleviating factors. She rates her discomfort a 5/10. Review of Systems More than 10 systems were reviewed and otherwise negative with the exception of history of present illness. Past Medical/Surgical History Medical Problems: (1) Abdominal pain (2) Abdominal pain (3) Abdominal pain (4) Abdominal wall cellulitis (5) Acute hypokalemia (6) Acute renal failure syndrome (7) Ankle pain (8) Asthma (9) Atypical syncope (10) Benign hypertension (11) Bipolar disorder (12) Bowel obstruction (13) Cellulitis (14) CELLULITIS ABDOMEN (15) Cellulitis and abscess of trunk (16) Chronic pain (17) Contusion of ankle (18) Contusion of periorbital region, left (19) Degenerative joint disease of spine (20) Dehydration (21) Dehydration (22) Depression (23) Diabetes mellitus type 2 (24) DM (diabetes mellitus screen) (25) Drug-seeking behavior (26) DVT (deep venous thrombosis) (27) Exacerbation of chronic back pain (28) Fall (29) Fracture of fourth metatarsal bone of left foot (30) Gastroesophageal reflux disease (31) Hepatic encephalopathy (32) Hernia of abdominal wall (33) Hyperglycemia (34) Hypokalemia (35) Hypokalemia (36) Hypokalemia (37) Hypokalemia (38) Hypothyroidism (39) Hypoxia (40) Incarcerated ventral hernia (41) Incisional irritation (42) Incisional pain (43) Inguinal lymphadenopathy (44) Insomnia (45) LUMBAGO (46) Migraine (47) Morbid obesity (48) Morbid obesity (49) Morbid obesity (50) Obstructive sleep apnea (51) Pain, dental (52) Rectal bleeding (53) Renal colic on right side (54) Renal insufficiency (55) Renal insufficiency (56) SBO (small bowel obstruction) (57) Seroma, postoperative (58) Sleep apnea (59) Spinal stenosis (60) Supraumbilical hernia Surgical Problems: (1) H/O hernia repair (2) H/O knee surgery (3) H/O: hysterectomy (4) History of cholecystectomy (5) Hx of appendectomy Social History Problems: (1) Diabetic neuropathy Family History Cancer Diabetes mellitus Gallbladder disease Heart disease Hypertension Lung disease Social History Smoking Status: Current Every Day Smoker Alcohol Use: none Drug Use: none Marital Status: single, in relationship Housing Status: lives with family Occupation Status: unemployed, disabled Current/Historical Medications Scheduled Carvedilol (Coreg), 12.5 MG PO BID Duloxetine Hcl (Cymbalta), 60 MG PO BID Escitalopram Oxalate (Lexapro), 20 MG PO QPM Insulin Aspart (Novolog Flexpen), UNITS SC TIDM Insulin Glargine (Lantus Solostar), 75 UNITS SQ BID Levothyroxine Sodium (Levothyroxine Sodium), 200 MG PO DAILY Rivaroxaban (Xarelto), 20 MG PO DAILY Scheduled PRN Home O2 Therapy (Oxygen), 3 LITERS NA UD PRN for Shortness of Breath Physical Exam Vital Signs Date Time Temp Pulse Resp B/P (MAP) Pulse Ox O2 Delivery O2 Flow Rate FiO2 03/27/17 23:39 36.5 53 20 152/91 96 Room Air 03/27/17 22:33 37.0 53 20 138/83 96 Room Air 03/27/17 22:12 61 03/27/17 21:09 36.7 65 20 160/111 96 Room Air Physical Exam VITALS: Vitals are noted on the nurse's note and reviewed by myself. Vital signs with elevated blood pressure. GENERAL: Obese white female who does not appear in acute distress. NECK: Supple without nuchal rigidity. No lymphadenopathy. No thyromegaly. Cervical spine is nontender. HEART: Regular rate and rhythm without murmurs gallops or rubs. LUNGS: Clear to auscultation bilaterally without wheezes, rales or rhonchi. No retractions or accessory muscle use. CHEST WALL: There is tenderness appreciated along the right side lower chest wall laterally. There is no rash or lesions. This correlates to the area of maximum discomfort for the patient ABDOMEN: Positive normal bowel sounds x 4. Soft, nontender, without masses or organomegaly. No guarding or rebound tenderness. MUSCULOSKELETAL: No muscle atrophy, erythema, or edema noted. Full range of motion without joint tenderness in all extremities. Medical Decision & Procedures ER Provider Diagnostic Interpretation: PA CHEST WITH ABDOMINAL SERIES CLINICAL HISTORY: Right-sided chest wall pain. FINDINGS: A PA chest radiograph is compared to study dated 01/09/2017. The examination is degraded by large body habitus. The heart is top normal for projection. The pulmonary vasculature is noncongested. The lungs and pleural spaces are clear. No pneumothorax is seen. The skeletal structures are osteopenic. The bony thorax is grossly intact. Supine and erect abdominal radiographs are correlated with abdominal CT dated 01/09/2017. The examination is degraded by large body habitus. Cholecystectomy clips are noted. Surgical clips are also seen in the right lower quadrant. There is a nonobstructed abdominal bowel gas pattern. No evidence of intraperitoneal free air is seen. There is moderate colonic fecal retention. Pelvic phleboliths are observed. There are no abnormal abdominal calcifications. Degenerative change and scoliosis are noted in the lumbar spine. The lumbosacral spine and bony pelvis appear intact. IMPRESSION: 1. No active disease in the chest. 2. Nonobstructed abdominal bowel gas pattern. Laboratory Results 03/27/17 21:45 Red Blood Count 4.66, Mean Corpuscular Volume 94.2, Mean Corpuscular Hemoglobin 32.0, Mean Corpuscular Hemoglobin Concent 33.9, Mean Platelet Volume 9.5, Neutrophils (%) (Auto) 63.9, Lymphocytes (%) (Auto) 27.9, Monocytes (%) (Auto) 6.8, Eosinophils (%) (Auto) 1.1, Basophils (%) (Auto) 0.2, Neutrophils # (Auto) 5.14, Lymphocytes # (Auto) 2.25, Monocytes # (Auto) 0.55, Eosinophils # (Auto) 0.09, Basophils # (Auto) 0.02 03/27/17 21:45 Test 03/27/17 21:45 03/27/17 21:48 03/27/17 23:17 White Blood Count 8.06 K/uL (4.8-10.8) Red Blood Count 4.66 M/uL (4.2-5.4) Hemoglobin 14.9 g/dL (12.0-16.0) Hematocrit 43.9 % (37-47) Mean Corpuscular Volume 94.2 fL (80-100) Mean Corpuscular Hemoglobin 32.0 pg (25-34) Mean Corpuscular Hemoglobin Concent 33.9 g/dl (32-36) Platelet Count 148 K/uL (130-400) Mean Platelet Volume 9.5 fL (7.4-10.4) Neutrophils (%) (Auto) 63.9 % Lymphocytes (%) (Auto) 27.9 % Monocytes (%) (Auto) 6.8 % Eosinophils (%) (Auto) 1.1 % Basophils (%) (Auto) 0.2 % Neutrophils # (Auto) 5.14 K/uL (1.4-6.5) Lymphocytes # (Auto) 2.25 K/uL (1.2-3.4) Monocytes # (Auto) 0.55 K/uL (0.11-0.59) Eosinophils # (Auto) 0.09 K/uL (0-0.5) Basophils # (Auto) 0.02 K/uL (0-0.2) RDW Standard Deviation 57.2 fL (36.4-46.3) RDW Coefficient of Variation 16.8 % (11.5-14.5) Immature Granulocyte % (Auto) 0.1 % Immature Granulocyte # (Auto) 0.01 K/uL (0.00-0.02) Anion Gap 10.0 mmol/L (3-11) Est Creatinine Clear Calc Drug Dose 90.5 ml/min Estimated GFR () 69.4 Estimated GFR (Non- 59.9 BUN/Creatinine Ratio 6.9 (10-20) Calcium Level 8.8 mg/dl (8.5-10.1) Total Bilirubin 0.9 mg/dl (0.2-1) Aspartate Amino Transf (AST/SGOT) 21 U/L (15-37) Alanine Aminotransferase (ALT/SGPT) 17 U/L (12-78) Alkaline Phosphatase 111 U/L (45-117) Total Protein 7.7 gm/dl (6.4-8.2) Albumin 3.0 gm/dl (3.4-5.0) Globulin 4.7 gm/dl (2.5-4.0) Albumin/Globulin Ratio 0.6 (0.9-2) Lipase 52 U/L (73-393) Bedside Troponin I < 0.030 ng/ml (0-0.045) Medications Administered Medications (Trade) Dose Ordered Sig/Nelda Route Start Time Stop Time Status Last Admin Dose Admin Ondansetron HCl (Zofran Odt) 4 mg NOW STAT PO 03/27/17 22:12 03/27/17 22:13 DC 03/27/17 22:27 4 MG Ketorolac Tromethamine (Toradol Inj) 30 mg NOW STAT IV 03/27/17 23:20 03/27/17 23:21 DC 03/27/17 23:34 30 MG Ondansetron HCl (ZOFRAN ODT 4MG Home Pack) 1 homepack UD ONCE PO 03/27/17 23:30 03/27/17 23:31 DC 03/27/17 23:34 1 HOMEPACK ECG Change: Sinus bradycardia with 1st degree A-V block @57 bpm Low voltage QRS Nonspecific T wave abnormality ED Course Physical exam and history were performed. Nursing notes, EMR, and Medication List were personally reviewed. Patient appears to have right-sided chest wall pain for the past 4 hours. The pain is reproducible on palpation. The patient does not appear toxic. IV access was established and labs were obtained. Plain films were performed. EKG was sinus bradycardia with first-degree AV block at 57 beats for minute. EKG is essentially unchanged from December of this year. Patient was given Zofran for her nausea. The patient's blood work is as above and was reviewed. She does not have a significant elevated white blood cell count, gross anemia, bandemia, or significant electrolyte imbalance. Transaminases are nondiagnostic. Troponin 1 is negative. Plain films are without significant findings, but do suggest some constipation. On reevaluation the patient continued with some mild discomfort. I did elect to give her IV Toradol, and this did improve her pain. I discussed the case with my attending physician, Dr. Dutta, who also and apparently evaluated the patient. We feel that she is stable for discharge home with close follow-up through her primary care physician's office. Her symptoms are likely musculoskeletal, and should improve with conservative measures. If her symptoms worsen she certainly is invited back to the ER. The patient was pleased with plan of care and rated her discomfort a 4/10 departure. The chart was completed utilizing [employer] Voice Recognition Software. Grammatical errors, random word insertions, pronoun errors, and incomplete sentences are an occasional consequence of this system due to software limitations, ambient noise, and hardware issues. Any formal questions or concerns about the content, text, or information contained within the body of this dictation should be directly addressed to the provider for clarification. . Medical Decision Differential diagnosis includes, but is not limited to: Myocardial infarction, dysrhythmia, pericarditis, pneumothorax, aortic aneurysm/dissection, DVT/PE, anxiety, GERD, PUD, electrolyte imbalance, thyroid disorder, pneumonia, bronchitis, pancreatitis, and others Blood Pressure Screening Patient's blood pressure: Elevated blood pressure Blood pressure disposition: Referred to PCP Impression Primary Impression: Right-sided chest wall pain Departure Information Dispostion Home / Self-Care Condition GOOD Forms HOME CARE DOCUMENTATION FORM, IMPORTANT VISIT INFORMATION Patient Instructions My [facility] Additional Instructions You were seen and evaluated today on an emergency basis only. This is not a substitute for, or an effort to provide, complete comprehensive medical care. It is not possible to recognize and treat all injuries or illnesses in a single emergency department visit. For this reason it is recommended that you followup with your primary care physician next one to 2 days for recheck. Zofran 4 mg ODT: Dissolve 1 tablet every 6 hrs as needed for nausea. Drink plenty of fluids and remain well hydrated. You are welcome to return to the emergency department anytime with new, worsening, or concerning symptoms.
== END 2017-03-27 23:43 | disposition home or self-care (01) ==
LOC: C.EDB 21:08
DX: R07.89 Other chest pain (principal); R11.0 Nausea; Z90.49 Acquired absence of other specified parts of digestive tract; J45.909 Unspecified asthma, uncomplicated; F31.9 Bipolar disorder, unspecified; I10 Essential (primary) hypertension; G89.29 Other chronic pain; Z86.718 Personal history of other venous thrombosis and embolism; M54.9 Dorsalgia, unspecified; K21.9 Gastro-esophageal reflux disease without esophagitis; E03.9 Hypothyroidism, unspecified; E66.01 Morbid (severe) obesity due to excess calories; Z68.44 Body mass index [BMI] 60.0-69.9, adult; G47.33 Obstructive sleep apnea (adult) (pediatric); Z90.710 Acquired absence of both cervix and uterus; G47.00 Insomnia, unspecified; E11.43 Type 2 diabetes mellitus with diabetic autonomic (poly)neuropathy; Z80.9 Family history of malignant neoplasm, unspecified; Z83.3 Family history of diabetes mellitus; Z82.49 Family history of ischemic heart disease and other diseases of the circulatory system; F17.210 Nicotine dependence, cigarettes, uncomplicated; Z79.4 Long term (current) use of insulin; Z79.899 Other long term (current) drug therapy; Z79.01 Long term (current) use of 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s

== ENCOUNTER 2017-04-16 20:48 | Emergency (ER) | payer OTHER ==
[~2017-04-16] VITALS: Ht 160 cm; Wt 155.0 kg
[~2017-04-16 20:48] MED LIST changes: -PROC5TAB PO; +REVIEWED; -VLM5CL PO; +[UNRECOGNIZED DRUG - OTHER]
[2017-04-16 20:57] VITALS: TEMP 36.8; Ht 160 cm; Wt 155.0 kg
[2017-04-16] MEDS ORDERED: KETOROLAC TROMETHAMINE 30 MG/ML VIAL IV STA (21:11)
[2017-04-16] MEDS ORDERED: ONDANSETRON INJ 2 MG/ML 2 ML VIAL IV STA (21:11)
[2017-04-16] MEDS ORDERED: SODIUM CHLORIDE 0.9% 1000ML 1,000 ML IV STA (21:11)
--- NOTE | 2017-04-16 21:16 | EMERGENCY ROOM VISIT NOTE ---
History Report prepared by Cary: Tae Alvarenga Under the Supervision of: Dr. Flo Leach M.D. First contact with patient: 21:00 Chief Complaint: KIDNEY STONE Stated Complaint: KIDNEY STONE History of Present Illness The patient is a 51 year old female who presents to the Emergency Room with complaints of constant left sided flank pain starting earlier today. She currently rates her discomfort as a 9/10 in severity. The patient states that she has a history of kidney stones, and she has one on the left side, and this feels like her past stones. The patient additionally notes that she has been urinating blood for the past three weeks, and she is having burning with urination. She additionally is complaining of chills and nausea. The patient denies any chest pain, shortness of breath, and new numbness of weakness of her legs. She denies any recent injuries, and she is on Xarelto. Source of History: patient Onset: earlier today Position: other (left flank) Symptom Intensity: 9/10 Timing: constant Associated Symptoms: + chills, + nausea, + urinary symptoms, No chest pain, No SOB, No weakness, No numbness Review of Systems See HPI for pertinent positives & negatives. A total of 10 systems reviewed and were otherwise negative. Past Medical & Surgical Medical Problems: (1) Abdominal pain (2) Abdominal pain (3) Abdominal pain (4) Abdominal wall cellulitis (5) Acute hypokalemia (6) Acute renal failure syndrome (7) Ankle pain (8) Asthma (9) Atypical syncope (10) Benign hypertension (11) Bipolar disorder (12) Bowel obstruction (13) Cellulitis (14) CELLULITIS ABDOMEN (15) Cellulitis and abscess of trunk (16) Chronic pain (17) Contusion of ankle (18) Contusion of periorbital region, left (19) Degenerative joint disease of spine (20) Dehydration (21) Dehydration (22) Depression (23) Diabetes mellitus type 2 (24) DM (diabetes mellitus screen) (25) Drug-seeking behavior (26) DVT (deep venous thrombosis) (27) Exacerbation of chronic back pain (28) Fall (29) Fracture of fourth metatarsal bone of left foot (30) Gastroesophageal reflux disease (31) Hepatic encephalopathy (32) Hernia of abdominal wall (33) Hyperglycemia (34) Hypokalemia (35) Hypokalemia (36) Hypokalemia (37) Hypokalemia (38) Hypothyroidism (39) Hypoxia (40) Incarcerated ventral hernia (41) Incisional irritation (42) Incisional pain (43) Inguinal lymphadenopathy (44) Insomnia (45) LUMBAGO (46) Migraine (47) Morbid obesity (48) Morbid obesity (49) Morbid obesity (50) Obstructive sleep apnea (51) Pain, dental (52) Rectal bleeding (53) Renal colic on right side (54) Renal insufficiency (55) Renal insufficiency (56) SBO (small bowel obstruction) (57) Seroma, postoperative (58) Sleep apnea (59) Spinal stenosis (60) Supraumbilical hernia Surgical Problems: (1) H/O hernia repair (2) H/O knee surgery (3) H/O: hysterectomy (4) History of cholecystectomy (5) Hx of appendectomy Social History Problems: (1) Diabetic neuropathy Old medical records were reviewed. Nurse's notes were reviewed and I agree with. Family History Cancer Diabetes mellitus Gallbladder disease Heart disease Hypertension Lung disease Social History Smoking Status: Current Every Day Smoker Alcohol Use: none Drug Use: none Marital Status: single, in relationship Housing Status: lives with family Occupation Status: unemployed, disabled Current/Historical Medications Scheduled Carvedilol (Coreg), 12.5 MG PO BID Ciprofloxacin Hcl (Cipro), 500 MG PO BID Duloxetine Hcl (Cymbalta), 60 MG PO BID Escitalopram Oxalate (Lexapro), 20 MG PO QPM Insulin Aspart (Novolog Flexpen), UNITS SC TIDM Insulin Glargine (Lantus Solostar), 75 UNITS SQ BID Levothyroxine Sodium (Levothyroxine Sodium), 200 MG PO DAILY Rivaroxaban (Xarelto), 20 MG PO DAILY Scheduled PRN Home O2 Therapy (Oxygen), 3 LITERS NA UD PRN for Shortness of Breath Oxycodone Immediate Rel Tab (Roxicodone Ir), 1-2 TAB PO Q4H PRN for Severe Pain Allergies Coded Allergies: Iodinated Diagnostic Agents (Verified Allergy, Intermediate, hives, ) Per patient she has had it since without problem (01/25/16 Ioversal given with no pretreats and no mention of rxn; also given Ioversal 11/26/06 with pretreats) Adhesives (Verified Allergy, Mild, RED RASH CAUSED BY PAPER TAPE, 04/16/17 ) Alprazolam (Verified Allergy, Unknown, MAKES LOOPY,DO AND SAY SILLY THINGS , 04/16/17) Metformin (Verified Allergy, Unknown, HANDS FEET FACE NUMB, 04/16/17) Vancomycin (Verified Adverse Reaction, Severe, renal failure, required dialysis x 3 MONTHS, 04/16/17) Methylparaben (Verified Adverse Reaction, Intermediate, FLUID RETENTION, 04/16/17) Oxymorphone (Verified Adverse Reaction, Intermediate, FLUID RETENTION, ) Gabapentin (Verified Adverse Reaction, Mild, Aphasia/Speech impairments, 04/16/17) Sulfa Antibiotics (Verified Adverse Reaction, Mild, GI SYMPTOMS, 04/16/17) Acetaminophen (Verified Adverse Reaction, Unknown, Liver problems., ) Codeine (Verified Adverse Reaction, Unknown, UPSET STOMACH, 04/16/17) Pregabalin (Verified Adverse Reaction, Unknown, Aphasia/Speech impairments , 04/16/17) Physical Exam Vital Signs Date Time Temp Pulse Resp B/P (MAP) Pulse Ox O2 Delivery O2 Flow Rate FiO2 04/16/17 23:24 73 18 147/91 96 Room Air 04/16/17 22:25 63 21 123/65 93 Room Air 04/16/17 20:57 36.8 65 20 166/105 98 Room Air Physical Exam General: Ill appearing, though not acutely ill appearing, older female in no acute distress. HEENT: Normal cephalic atraumatic. Pupils are equal round and reactive to light. Extraocular movements are intact. Oropharynx is pink with moist mucous membranes. No swelling of the mouth lips or tongue. Neck: Supple with a midline trachea. No meningeal signs or stiffness, no JVD or bruits. No Stridor. Chest: Clear to auscultation bilaterally. No wheezes or rhonchi. No increased work of breathing. Heart: regular rate and rhythm. Abdomen: Mild tenderness in the left flank. No rash. Large pannus but non- tender. Soft nondistended without rebound guarding or rigidity. Extremities: No cyanosis clubbing or edema. No calf tenderness or assymetry Spine/Back. Non tender to palpation. No CVA tenderness Skin: Good turgor without rashes. Neurologic exam: Cranial nerves two through 12 are intact. Motor and sensation are intact and symmetrical throughout. Medical Decision & Procedures ER Provider Diagnostic Interpretation: Radiology results as stated below per my review and radiologist interpretation: RENAL ULTRASOUND HISTORY: Left-sided flank pain. eval for hydro/stone on left COMPARISON: Abdomen and pelvis CT 02/09/2017. FINDINGS: Right kidney: 11.7 cm. No hydronephrosis. Normal corticomedullary differentiation and cortical thickness. Left kidney: 14.0 cm. Mild hydronephrosis. Normal corticomedullary differentiation and cortical thickness. Bladder: Bladder is decompressed which limits evaluation. The ureteral jets are not identified at this time. IMPRESSION: 1. Mild left hydronephrosis. 2. Normal right kidney. Electronically signed by: Kalpesh Carcamo M.D. 04/16/2017 10:34 PM Dictated Date/Time: 04/16/2017 10:32 PM KUB HISTORY: Left-sided hydronephrosis. Left flank pain. eval for kidney stone on left COMPARISON: None. FINDINGS: The bowel gas pattern is unremarkable. There are no dilated loops of small bowel to suggest an obstruction. There is a 5 mm calcification adjacent to the left L4 transverse process. This likely represents a mid left ureteral stone. No definite renal calculi. Stable calcifications in the deep pelvis consistent with phleboliths. Surgical clips seen within the right upper quadrant and right lower quadrant. The renal shadows are mostly obscured by overlying bowel gas. No definite renal calculi identified. Degenerative changes seen within the lumbar spine. No pneumoperitoneum or pneumatosis. IMPRESSION: A 5 mm calcification adjacent to the left L4 transverse process which likely represents a mid left ureteral stone. Electronically signed by: Kalpesh Carcamo M.D. 04/16/2017 10:37 PM Dictated Date/Time: 04/16/2017 10:34 PM Laboratory Results 04/16/17 21:26 Red Blood Count 4.49, Mean Corpuscular Volume 96.0, Mean Corpuscular Hemoglobin 32.5, Mean Corpuscular Hemoglobin Concent 33.9, Mean Platelet Volume 9.2, Neutrophils (%) (Auto) 68.9, Lymphocytes (%) (Auto) 19.4, Monocytes (%) (Auto) 9.4, Eosinophils (%) (Auto) 1.4, Basophils (%) (Auto) 0.5, Neutrophils # (Auto) 5.90, Lymphocytes # (Auto) 1.66, Monocytes # (Auto) 0.80, Eosinophils # (Auto) 0.12, Basophils # (Auto) 0.04 04/16/17 21:26 Test 04/16/17 21:10 04/16/17 21:26 Urine Color DK YELLOW Urine Appearance CLOUDY (CLEAR) Urine pH 5.5 (4.5-7.5) Urine Specific [place] 1.020 (1.000-1.030) Urine Protein 2+ (NEG) Urine Glucose (UA) NEG (NEG) Urine Ketones NEG (NEG) Urine Occult Blood 3+ (NEG) Urine Nitrite POS (NEG) Urine Bilirubin NEG (NEG) Urine Urobilinogen NEG (NEG) Urine Leukocyte Esterase MODERATE (NEG) Urine WBC (Auto) >30 /hpf (0-5) Urine RBC (Auto) >30 /hpf (0-4) Urine Hyaline Casts (Auto) 1-5 /lpf (0-5) Urine Epithelial Cells (Auto) >30 /lpf (0-5) Urine Bacteria (Auto) 4+ (NEG) Urine Yeast (Auto) PRESENT (NONE PRSENT) White Blood Count 8.55 K/uL (4.8-10.8) Red Blood Count 4.49 M/uL (4.2-5.4) Hemoglobin 14.6 g/dL (12.0-16.0) Hematocrit 43.1 % (37-47) Mean Corpuscular Volume 96.0 fL (80-100) Mean Corpuscular Hemoglobin 32.5 pg (25-34) Mean Corpuscular Hemoglobin Concent 33.9 g/dl (32-36) Platelet Count 181 K/uL (130-400) Mean Platelet Volume 9.2 fL (7.4-10.4) Neutrophils (%) (Auto) 68.9 % Lymphocytes (%) (Auto) 19.4 % Monocytes (%) (Auto) 9.4 % Eosinophils (%) (Auto) 1.4 % Basophils (%) (Auto) 0.5 % Neutrophils # (Auto) 5.90 K/uL (1.4-6.5) Lymphocytes # (Auto) 1.66 K/uL (1.2-3.4) Monocytes # (Auto) 0.80 K/uL (0.11-0.59) Eosinophils # (Auto) 0.12 K/uL (0-0.5) Basophils # (Auto) 0.04 K/uL (0-0.2) RDW Standard Deviation 61.5 fL (36.4-46.3) RDW Coefficient of Variation 17.7 % (11.5-14.5) Immature Granulocyte % (Auto) 0.4 % Immature Granulocyte # (Auto) 0.03 K/uL (0.00-0.02) Anion Gap 4.0 mmol/L (3-11) Est Creatinine Clear Calc Drug Dose 78.7 ml/min Estimated GFR () 58.6 Estimated GFR (Non- 50.5 BUN/Creatinine Ratio 11.6 (10-20) Calcium Level 8.9 mg/dl (8.5-10.1) Total Bilirubin 0.8 mg/dl (0.2-1) Direct Bilirubin 0.2 mg/dl (0-0.2) Aspartate Amino Transf (AST/SGOT) 29 U/L (15-37) Alanine Aminotransferase (ALT/SGPT) 22 U/L (12-78) Alkaline Phosphatase 100 U/L (45-117) Total Protein 7.9 gm/dl (6.4-8.2) Albumin 3.2 gm/dl (3.4-5.0) Lipase 44 U/L (73-393) Laboratory studies as stated above per my review. Medications Administered Medications (Trade) Dose Ordered Sig/Nelda Route Start Time Stop Time Status Last Admin Dose Admin Sodium Chloride 1,000 ml @ 999 mls/hr Q1H1M STAT IV 04/16/17 21:11 04/16/17 22:11 DC 04/16/17 21:29 999 MLS/HR Ketorolac Tromethamine (Toradol Inj) 30 mg NOW STAT IV 04/16/17 21:11 04/16/17 21:14 DC 04/16/17 21:30 30 MG Ondansetron HCl (Zofran Inj) 4 mg NOW STAT IV 04/16/17 21:11 04/16/17 21:14 DC 04/16/17 21:30 4 MG Hydromorphone HCl (Dilaudid Inj) 1 mg NOW STAT IV 04/16/17 22:44 04/16/17 22:45 DC 04/16/17 23:22 1 MG Oxycodone HCl (Roxicodone Immediate Rel 5MG Home Pack) 1 homepack UD ONCE PO 04/16/17 22:45 04/16/17 22:46 DC 04/16/17 23:22 1 HOMEPACK Ciprofloxacin (Cipro 500MG Home Pack) 1 homepack UD ONCE PO 04/16/17 23:30 04/16/17 23:31 DC 04/16/17 23:30 1 HOMEPACK ED Course 2100: Past medical records reviewed. The patient was evaluated in room C11, and a complete history and physical examination were performed. 1: Zofran 4mg IV, Toradol 30mg IV, Sodium Chloride 1000 ml @ 999 mls/hr IV 2227: I reevaluated the patient, and she appears comfortable. 2243: I reevaluated the patient, and she states that she is able to get a ride home. 2244: Dilaudid 1mg IV 2245: Roxicodone Immediate Rel 5mg Home Pack 2320: Upon reevaluation, the patient is doing well. I discussed the results and treatment plan with her. She verbalized agreement of the treatment plan. The patient was discharged home. 2330: Ciprofloxacin Home Pack PO Medical Decision Differentials include, but are not limited to; kidney stone, acute exacerbation of chronic pain, cauda equina, and infection This patient comes in as described above. She was placed in room C 11. She is having left flank pain and feels like it's like her previous kidney stones. She is seen in the ER frequently for pain issues including kidney stones. She has no new numbness or weakness. She has nothing discussed cauda equina syndrome. She appears comfortable. I reviewed her records and she's had multiple CAT scans. I do not want to give her increased radiation dosage eating at this point if at all possible. I did a KUB x-ray ultrasound blood testing was obtained as well as urinalysis and culture she was given IV Toradol and IV Zofran. She has no white count or fever to suggest infection or urinalysis is suboptimal as it was a clean-catch however it could be infected in light of this, I will start on Cipro she tells me she's had this before without problems. She was given a dose here as well as a home pack and prescription for 7 days. Clinically, she does not have pyelonephritis. She has no significant electrolyte or metabolic abnormalities. Her ultrasound does suggest hydronephrosis mildly on the left as well as a possible mid stone on the KUB. In light of this, I will treat her with pain medication she was given Dilaudid 1 mg IV she is not driving. She was given a small prescription home pack for OxyIR that she can use if needed one to 2 pills every 4-6 hours she was warned that can make her drowsy and do not take before drinking, driving, working. She is happy with the plan and was discharged to home. [place] Drug Monitoring Program Search Results: patient reviewed within database, see additional documentation Drug Monitoring Findings: The patient has a history of using narcotics frequently in the past, however she has not filled anything since January, and she has an obstructing kidney stone today. Medication Reconcilliation Current Medication List: was personally reviewed by me Blood Pressure Screening Patient's blood pressure: Elevated blood pressure Blood pressure disposition: Elevated BP felt to be situational Impression Primary Impression: Kidney stone on left side Additional Impression: Renal colic Scribe Attestation The scribe's documentation has been prepared under my direction and personally reviewed by me in its entirety. I confirm that the note above accurately reflects all work, treatment, procedures, and medical decision making performed by me. Departure Information Dispostion Home / Self-Care Prescriptions Oxycodone Immediate Rel Tab (ROXICODONE IR) 5 Mg Tab 1-2 TAB PO Q4H Y for Severe Pain, #15 TAB Prov: Flo Leach M.D. 04/16/17 Ciprofloxacin Hcl (CIPRO) 500 Mg Tab 500 MG PO BID, #14 TAB Prov: Flo Leach M.D. 04/16/17 Referrals Agustina Cummings M.D. (PCP) Forms HOME CARE DOCUMENTATION FORM, IMPORTANT VISIT INFORMATION Patient Instructions My [facility] Additional Instructions Rest. Drink plenty of fluids. Use Cipro 500 mg twice a day for 7 daysantibiotic For pain, may use OxyIR 5 mg, one or 2 pills every 4-6 hours as needed OxyIR may make you drowsy and do not take before drinking, driving, working Return if: Worsening of symptoms, shortness of breath, fever or chills, any new problems or concerns Problem Qualifiers
[2017-04-16 21:40] LABS: BASO % 0.5 %; BASO ABS # 0.04 K/uL (0-0.2); COMPLETE YES; EOS % 1.4 %; HEMATOCRIT 43.1 % (37-47); IG% 0.4 %; LYMPH % 19.4 %; LYMPH ABS # 1.66 K/uL (1.2-3.4); MEAN CORPUSCULAR HEMOGLOBIN 32.5 pg (25-34); MEAN CORPUSCULAR HGB CONC 33.9 g/dl (32-36); MEAN PLATELET VOLUME 9.2 fL (7.4-10.4); MONO % 9.4 %; NEUT % 68.9 %; PLATELET COUNT 181 K/uL (130-400); RED BLOOD COUNT 4.49 M/uL (4.2-5.4); WHITE BLOOD COUNT 8.55 K/uL (4.8-10.8)
[2017-04-16 21:59] LABS: BUN/CREATININE RATIO 11.6 (10-20); CALCIUM 8.9 mg/dl (8.5-10.1); CREATININE 1.22 mg/dl (0.60-1.20); POTASSIUM 3.8 mmol/L (3.5-5.1)
[2017-04-16 22:11] LABS: URINE APPEARANCE CLOUDY (CLEAR); URINE BILIRUBIN NEG (NEG); URINE COLOR DK YELLOW; URINE EPITHELIAL CELL AUTO >30 /lpf (0-5); URINE NITRITE POS (NEG); URINE PH 5.5 (4.5-7.5); UROBILINOGEN NEG (NEG)
[2017-04-16 22:14] LABS: MANUAL MICROSCOPIC REQUIRED? NO; REVIEW REQ? YES
--- NOTE | 2017-04-16 22:35 | DIAGNOSTIC IMAGING REPORT ---
RENAL ULTRASOUND HISTORY: Left-sided flank pain. eval for hydro/stone on left COMPARISON: Abdomen and pelvis CT 02/09/2017. FINDINGS: Right kidney: 11.7 cm. No hydronephrosis. Normal corticomedullary differentiation and cortical thickness. Left kidney: 14.0 cm. Mild hydronephrosis. Normal corticomedullary differentiation and cortical thickness. Bladder: Bladder is decompressed which limits evaluation. The ureteral jets are not identified at this time. IMPRESSION: 1. Mild left hydronephrosis. 2. Normal right kidney. Electronically signed by: Kalpesh Carcamo M.D. 04/16/2017 10:34 PM Dictated Date/Time: 04/16/2017 10:32 PM
--- NOTE | 2017-04-16 22:39 | DIAGNOSTIC IMAGING REPORT ---
KUB HISTORY: Left-sided hydronephrosis. Left flank pain. eval for kidney stone on left COMPARISON: None. FINDINGS: The bowel gas pattern is unremarkable. There are no dilated loops of small bowel to suggest an obstruction. There is a 5 mm calcification adjacent to the left L4 transverse process. This likely represents a mid left ureteral stone. No definite renal calculi. Stable calcifications in the deep pelvis consistent with phleboliths. Surgical clips seen within the right upper quadrant and right lower quadrant. The renal shadows are mostly obscured by overlying bowel gas. No definite renal calculi identified. Degenerative changes seen within the lumbar spine. No pneumoperitoneum or pneumatosis. IMPRESSION: A 5 mm calcification adjacent to the left L4 transverse process which likely represents a mid left ureteral stone. Electronically signed by: Kalpesh Carcamo M.D. 04/16/2017 10:37 PM Dictated Date/Time: 04/16/2017 10:34 PM
[2017-04-16] MEDS ORDERED: HYDROmorphone INJ 1 MG/ML SYR IV STA (22:44)
[2017-04-16] MEDS ORDERED: OXYCODONE IR HOME PACK PO ONE (22:45)
[2017-04-16] MEDS ORDERED: CIPR-255 PO (23:23)
[2017-04-16] MEDS ORDERED: OXYC1TAB3 PO (23:23)
[2017-04-16 23:24] VITALS: BP 147/91; PULSE 73; O2SAT 96
[2017-04-16] MEDS ORDERED: CIPROFLOXACIN 500MG HOME PACK PO ONE (23:30)
[2017-04-21] MEDS ORDERED: CIPR-255 PO ×2 (07:59)
[2017-04-21] MEDS ORDERED: OXYC1TAB3 PO ×2 (10:07)
== END 2017-04-16 23:38 | disposition home or self-care (01) ==
LOC: C.EDB 20:49 → C.EDC 23:38
DX: N13.2 Hydronephrosis with renal and ureteral calculous obstruction (principal); N23 Unspecified renal colic; I10 Essential (primary) hypertension; F31.9 Bipolar disorder, unspecified; Z86.718 Personal history of other venous thrombosis and embolism; K21.9 Gastro-esophageal reflux disease without esophagitis; G47.33 Obstructive sleep apnea (adult) (pediatric); E66.01 Morbid (severe) obesity due to excess calories; Z68.44 Body mass index [BMI] 60.0-69.9, adult; Z79.01 Long term (current) use of 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s; E11.43 Type 2 diabetes mellitus with diabetic autonomic (poly)neuropathy; Z90.49 Acquired absence of other specified parts of digestive tract; Z90.710 Acquired absence of both cervix and uterus; Z80.9 Family history of malignant neoplasm, unspecified; Z83.3 Family history of diabetes mellitus; Z82.49 Family history of ischemic heart disease and other diseases of the circulatory system; F17.210 Nicotine dependence, cigarettes, uncomplicated; Z79.899 Other long term (current) drug therapy; Z79.4 Long term (current) use of insulin

== ENCOUNTER 2017-04-17 11:07 | Inpatient (IN) | payer OTHER ==
[~2017-04-17] VITALS: Ht 160 cm; Wt 168.3 kg
[~2017-04-17 11:07] MED LIST changes: +CIPR-255 PO; +OXYC1TAB3 PO
[2017-04-17 11:55] LABS: BASO % 0.5 %; BASO ABS # 0.02 K/uL (0-0.2); COMPLETE YES; EOS % 1.6 %; HEMATOCRIT 38.2 % (37-47); LYMPH % 7.7 %; LYMPH ABS # 0.33 K/uL (1.2-3.4); MEAN CELL VOLUME 97.2 fL (80-100); MEAN CORPUSCULAR HEMOGLOBIN 32.8 pg (25-34); MEAN CORPUSCULAR HGB CONC 33.8 g/dl (32-36); MEAN PLATELET VOLUME 8.8 fL (7.4-10.4); MONO % 2.6 %; NEUT % 87.6 %; PLATELET COUNT 110 K/uL (130-400); RED BLOOD COUNT 3.93 M/uL (4.2-5.4); WHITE BLOOD COUNT 4.31 K/uL (4.8-10.8)
[2017-04-17 12:16] LABS: ALB/GLOB RATIO 0.6 (0.9-2); BUN/CREATININE RATIO 13.4 (10-20); CALCIUM 8.5 mg/dl (8.5-10.1); CREATININE 1.48 mg/dl (0.60-1.20); POTASSIUM 3.8 mmol/L (3.5-5.1)
[2017-04-17] MEDS ORDERED: ONDANSETRON INJ 2 MG/ML 2 ML VIAL IV STA (12:26)
--- NOTE | 2017-04-17 12:40 | EMERGENCY ROOM VISIT NOTE ---
History Report prepared by Cary: Tae Alvarenga Under the Supervision of: Dr. Yamilex Morejon D.O. First contact with patient: 12:17 Chief Complaint: FEVER Stated Complaint: BACK PAIN History of Present Illness The patient is a 51 year old female who presents to the Emergency Room with complaints of constant shortness of breath starting around an hour or two ago while sleeping. The patient states that she is feeling sluggish, feverish, nauseated, and she states that she is not usually on oxygen at home. The patient denies any chest pain, cough, and chills. The patient was in the ED yesterday for flank pain, and she was diagnosed with a 5mm ureteral stone. She notes that the pain has been better, and she is taking Oxy IR every 4 hours. Additionally, she was discharged home on Cipro as well. Her urine is growing out gram negative bacilli. Source of History: patient Onset: an hour or two ago Position: other (global) Quality: other (shortness of breath) Timing: constant Associated Symptoms: + nausea, No fevers, No chills, No cough, No chest pain Review of Systems See HPI for pertinent positives & negatives. A total of 10 systems reviewed and were otherwise negative. Past Medical & Surgical Medical Problems: (1) Abdominal pain (2) Abdominal pain (3) Abdominal pain (4) Abdominal wall cellulitis (5) Acute hypokalemia (6) Acute renal failure syndrome (7) Ankle pain (8) Asthma (9) Atypical syncope (10) Benign hypertension (11) Bipolar disorder (12) Bowel obstruction (13) Cellulitis (14) CELLULITIS ABDOMEN (15) Cellulitis and abscess of trunk (16) Chronic pain (17) Cirrhosis (18) Contusion of ankle (19) Contusion of periorbital region, left (20) Degenerative joint disease of spine (21) Dehydration (22) Dehydration (23) Depression (24) Diabetes mellitus type 2 (25) DM (diabetes mellitus screen) (26) Drug-seeking behavior (27) DVT (deep venous thrombosis) (28) Exacerbation of chronic back pain (29) Fall (30) Fracture of fourth metatarsal bone of left foot (31) Gastroesophageal reflux disease (32) Hepatic encephalopathy (33) Hernia of abdominal wall (34) Hyperglycemia (35) Hypokalemia (36) Hypokalemia (37) Hypokalemia (38) Hypokalemia (39) Hypothyroid (40) Hypothyroidism (41) Hypoxia (42) Incarcerated ventral hernia (43) Incisional irritation (44) Incisional pain (45) Inguinal lymphadenopathy (46) Insomnia (47) senior living (current) use of insulin (48) senior living current use of 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 (49) LUMBAGO (50) Migraine (51) Morbid obesity (52) Morbid obesity (53) Morbid obesity (54) Morbid obesity with BMI of 60.0-69.9, adult (55) Obstructive sleep apnea (56) Pain, dental (57) Rectal bleeding (58) Renal colic on right side (59) Renal insufficiency (60) Renal insufficiency (61) SBO (small bowel obstruction) (62) Septic shock (63) Seroma, postoperative (64) Sleep apnea (65) Spinal stenosis (66) Splenomegaly, not elsewhere classified (67) Supraumbilical hernia Surgical Problems: (1) H/O hernia repair (2) H/O knee surgery (3) H/O: hysterectomy (4) History of cholecystectomy (5) Hx of appendectomy Social History Problems: (1) Diabetic neuropathy Family History Cancer Diabetes mellitus Gallbladder disease Heart disease Hypertension Lung disease Social History Smoking Status: Current Every Day Smoker Alcohol Use: none Drug Use: none Marital Status: single, in relationship Housing Status: lives with family Occupation Status: unemployed, disabled Current/Historical Medications Scheduled Carvedilol (Coreg), 12.5 MG PO BID Ciprofloxacin Hcl (Cipro), 500 MG PO BID Duloxetine Hcl (Cymbalta), 60 MG PO BID Escitalopram Oxalate (Lexapro), 20 MG PO QPM Insulin Aspart (Novolog Flexpen), UNITS SC TIDM Insulin Glargine (Lantus Solostar), 75 UNITS SQ BID Levothyroxine Sodium (Levothyroxine Sodium), 200 MG PO DAILY Rivaroxaban (Xarelto), 20 MG PO DAILY Scheduled PRN Home O2 Therapy (Oxygen), 3 LITERS NA UD PRN for Shortness of Breath Oxycodone Immediate Rel Tab (Roxicodone Ir), 1-2 TAB PO Q4H PRN for Severe Pain Allergies Coded Allergies: Iodinated Diagnostic Agents (Verified Allergy, Intermediate, hives, ) Per patient she has had it since without problem (01/25/16 Ioversal given with no pretreats and no mention of rxn; also given Ioversal 11/26/06 with pretreats) Adhesives (Verified Allergy, Mild, RED RASH CAUSED BY PAPER TAPE, 04/16/17 ) Alprazolam (Verified Allergy, Unknown, MAKES LOOPY,DO AND SAY SILLY THINGS , 04/16/17) Metformin (Verified Allergy, Unknown, HANDS FEET FACE NUMB, 04/16/17) Vancomycin (Verified Adverse Reaction, Severe, renal failure, required dialysis x 3 MONTHS, 04/16/17) Methylparaben (Verified Adverse Reaction, Intermediate, FLUID RETENTION, 04/16/17) Oxymorphone (Verified Adverse Reaction, Intermediate, FLUID RETENTION, ) Gabapentin (Verified Adverse Reaction, Mild, Aphasia/Speech impairments, 04/16/17) Sulfa Antibiotics (Verified Adverse Reaction, Mild, GI SYMPTOMS, 04/16/17) Acetaminophen (Verified Adverse Reaction, Unknown, Liver problems., ) Codeine (Verified Adverse Reaction, Unknown, UPSET STOMACH, 04/16/17) Pregabalin (Verified Adverse Reaction, Unknown, Aphasia/Speech impairments , 04/16/17) Physical Exam Vital Signs Date Time Temp Pulse Resp B/P (MAP) Pulse Ox O2 Delivery O2 Flow Rate FiO2 04/17/17 14:50 71 18 81/51 93 Nasal Cannula 4.0 04/17/17 13:38 85 16 107/57 96 Nasal Cannula 4.0 04/17/17 13:04 81 18 86/53 95 Room Air 4.0 04/17/17 11:25 94 Nasal Cannula 4.0 04/17/17 11:11 39.3 97 18 131/69 Nasal Cannula 4.0 04/17/17 11:11 87 Room Air Physical Exam General: Lethargic, difficult to keep awake, and morbidly obese HEENT: Head - normocephalic and atraumatic Pupils are equal, round, and reactive to light. Extraocular eye muscles are intact, and sclera are anicteric. Nose - moist nasal mucosa without discharge. Mouth - moist buccal mucosa. Oropharynx is nonerythematous and there is no tonsillar exudate or edema noted. Neck: Supple; no JVD, nuchal rigidity, cervical lymphadenopathy. Heart: Unable to hear the heart tones due to body habitus Lungs: Clear but diminished secondary to body habitus. Abdomen: Left CVA tenderness. Soft, nondistended, with good bowel sounds. There are no palpable pulsatile masses or hepatosplenomegaly. There is no guarding, rigidity, or rebound noted. Extremities: Severe peripheral vascular changes. Skin: warm and dry with good turgor and no rashes. Neuro: The patient is lethargic. She does answer questions appropriately. She will follow commands. Medical Decision & Procedures ER Provider Diagnostic Interpretation: Radiology results as stated below per my review and the radiologist's interpretation: KUB CLINICAL HISTORY: Left ureteral calculus COMPARISON STUDY: 04/16/2017 FINDINGS: Degenerative changes are present within the spine. There is moderate stool throughout the colon. There is no pathologic bowel dilatation. There are 2 tangential calcifications at the L4 level to the left of midline measuring 5 mm in aggregate. These could represent proximal ureteral calculi. IMPRESSION: 2 tangential calcifications located at the L4 level to the left of midline are visualized. Given the previously reported hydronephrosis, these could represent proximal ureteral calculi. Electronically signed by: Romie Lincoln M.D. 04/17/2017 1:48 PM Dictated Date/Time: 04/17/2017 1:45 PM CHEST 2 VIEWS ROUTINE CLINICAL HISTORY: fever LOW BACK PAIN COMPARISON STUDY: 03/27/2017 FINDINGS: The cardiac and mediastinal contours are normal. There is no evidence of focal pulmonary consolidation. There is no evidence of failure. No pleural effusions are visualized.[ IMPRESSION: No active disease in the chest. Electronically signed by: Romie Lincoln M.D. 04/17/2017 1:43 PM Dictated Date/Time: 04/17/2017 1:43 PM INTRAOPERATIVE KUB CLINICAL HISTORY: LT STENT PLACEMENT COMPARISON STUDY: No previous studies for comparison. FINDINGS: 44 seconds of fluoroscopic time was utilized. 2 intraoperative fluoroscopic spot images are provided for interpretation. There is a small amount of contrast within the upper pole calyx. There is a left-sided double pigtail pigtail nephroureteral stent. IMPRESSION: Intraoperative radiographs demonstrating a left-sided nephroureteral stent Electronically signed by: Romie Lincoln M.D. 04/17/2017 5:17 PM Dictated Date/Time: 04/17/2017 5:16 PM CHEST ONE VIEW PORTABLE CLINICAL HISTORY: Shortness of breath. Central line placement. COMPARISON STUDY: 04/17/2017 FINDINGS: The study is rotated. The heart is enlarged. There is no failure. There is no focal pulmonary consolidation. There is no pneumothorax. There is a right internal jugular intravenous catheter with its tip near the confluence of the right subclavian and right internal jugular veins.[ IMPRESSION: No evidence of pneumothorax status post placement of a right internal jugular central venous catheter. Electronically signed by: Romie Lincoln M.D. 04/17/2017 4:28 PM Dictated Date/Time: 04/17/2017 4:28 PM Laboratory Results Test 04/17/17 11:35 04/17/17 12:40 Chemistry Specimen Hemolysis Bedside Lactic Acid Venous 1.85 mmol/L (0.90-1.70) Laboratory results per my review. Medications Administered Medications (Trade) Dose Ordered Sig/Nelda Route Start Time Stop Time Status Last Admin Dose Admin Ondansetron HCl (Zofran Inj) 4 mg NOW STAT IV 04/17/17 12:26 04/17/17 12:28 DC 04/17/17 13:07 4 MG Sodium Chloride 1,000 ml @ 999 mls/hr Q1H1M STAT IV 04/17/17 13:15 04/17/17 14:15 DC 04/17/17 13:15 999 MLS/HR Imipenem/ Cilastatin Sodium 500 mg/Dextrose 110 ml @ 100 mls/hr NOW STAT IV 04/17/17 13:18 04/17/17 14:23 DC 04/17/17 13:47 100 MLS/HR Daptomycin 1000 mg/Sodium Chloride 70 ml @ 100 mls/hr NOW STAT IV 04/17/17 13:18 04/17/17 13:59 DC 04/17/17 13:47 100 MLS/HR Sodium Chloride 1,000 ml @ 250 mls/hr Q4H STAT IV 04/17/17 14:59 04/17/17 17:34 DC 04/17/17 15:05 250 MLS/HR Sodium Chloride 1,000 ml @ 999 mls/hr Q1H1M STAT IV 04/17/17 15:23 04/17/17 16:23 DC 04/17/17 16:00 999 MLS/HR Norepinephrine Bitartrate 8 mg/ Dextrose 508 ml @ 0 mls/hr Q0M PRN IV 04/17/17 15:23 05/17/17 15:22 04/17/17 18:01 30.4 MLS/HR Procedure Ordered: Zofran IV, Sodium Chloride IV, Daptomycin 1000mg/ Sodium Chloride IV, Imipenem/ Cilastatin Sodium 500mg/ Dextrose IV ED Course 1217: Past medical records reviewed. The patient was evaluated in room C4. A complete history and physical exam was performed. 1226: Zofran 4mg IV 1315: The patient became hypotensive and was given a bolus-Sodium Chloride 1000 ml @ 999 mls/hr IV 1318: Daptomycin 1000mg/ Sodium Chloride 70ml @ 100mls/hr IV, Imipenem/ Cilastatin Sodium 500mg/ Dextrose 110ml @ 100mls/hr IV 1418: I reevaluated the patient, and she was still lethargic, but her blood pressure has improved. I went over everything with her. She seemed more easily arousable at this time. 1430: I discussed the patient with Dr. Glover - [facility] [place], and he wanted me to talk to urology. 1449: I discussed the patient's case with Dr. Aguilera - Urology, and he he is going to come take the patient to the OR. 1459: She was kept nothing by mouth in preparation for the OR and a saline drip was ordered. 1507: Dr. Glover made me aware that the patient remains hypotensive and asked me to order an ABG. He will discuss the case with the4 fisheries management biologist. Medical Decision The patient is a 51 year old female who presents to the ED with shortness of breath. Differential diagnosis includes sepsis, UTI, infected kidney stone, pneumonia Lab results: White count of 4.3, stable H&H, lactic acid 1.8, BUN 20, creatinine 1.4, LFTs are normal This is a 51-year-old female patient presents to the emergency department with shortness of breath. The patient was febrile and had been diagnosed with a left -sided ureteral stone yesterday. Urine cultures were growing out gram- negative bacilli. She does have left flank pain on physical exam. I was concerned for the possibility of sepsis and physical and lab findings were indicative of this. The patient was started on IV antibiotics. I discussed the case with the hospitalist and urology. They will take the patient to the OR for cystoscopy and stent placement. The patient became hypotensive and was bolused with IV crystalloid therapy. The fisheries management biologist is here in the emergency department caring for the patient. I kept the patient abreast of the situation. Medication Reconcilliation Current Medication List: was personally reviewed by me Blood Pressure Screening Patient's blood pressure: Low blood pressure Monitored by the surgeon Consults Time Called: 1353 Consulting Physician: Dr. Glover Returned Call: 1430 I discussed the patient with Dr. Glover - [facility] [place], and he wanted me to talk to urology. Additional Consults: Time Called: 1431 Consulted Physician: Dr. Willy Gtz Returned Call: [phone] Additional Comments: I discussed the patient's case with Dr. Willy Gtz, and he he is going to come take the patient to the OR. Impression Primary Impression: Septic shock Additional Impression: Urinary tract obstruction due to kidney stone Critical Care I have personally spent greater than 60 minutes of critical care time in the direct management of this patient. This includes bedside care, interpretation of diagnostic studies, and testing, discussion with consultants, patient, and family members, and other required patient management activities. This 60 minutes is in excess of all separately billable procedures. Scribe Attestation The scribe's documentation has been prepared under my direction and personally reviewed by me in its entirety. I confirm that the note above accurately reflects all work, treatment, procedures, and medical decision making performed by me. Departure Information Dispostion Being Evaluated By Agustina Dickey M.D. (PCP) Patient Instructions My [facility] Problem Qualifiers
[2017-04-17] MEDS ORDERED: SODIUM CHLORIDE 0.9% 1000ML 1,000 ML IV STA ×3 (13:15→15:23)
[2017-04-17] MEDS ORDERED: DAPTOmycin IV 1,000 MG in SODIUM CHLORIDE 0.9% 50ML 50 ML IV STA (13:18)
[2017-04-17] MEDS ORDERED: IMIPENEM/CILASTATIN IV 500 MG in DEXTROSE 5% 100ML 100 ML IV STA (13:18)
--- NOTE | 2017-04-17 13:44 | DIAGNOSTIC IMAGING REPORT ---
CHEST 2 VIEWS ROUTINE CLINICAL HISTORY: fever LOW BACK PAIN COMPARISON STUDY: 03/27/2017 FINDINGS: The cardiac and mediastinal contours are normal. There is no evidence of focal pulmonary consolidation. There is no evidence of failure. No pleural effusions are visualized.[ IMPRESSION: No active disease in the chest. Electronically signed by: Romie Lincoln M.D. 04/17/2017 1:43 PM Dictated Date/Time: 04/17/2017 1:43 PM
--- NOTE | 2017-04-17 13:49 | DIAGNOSTIC IMAGING REPORT ---
KUB CLINICAL HISTORY: Left ureteral calculus COMPARISON STUDY: 04/16/2017 FINDINGS: Degenerative changes are present within the spine. There is moderate stool throughout the colon. There is no pathologic bowel dilatation. There are 2 tangential calcifications at the L4 level to the left of midline measuring 5 mm in aggregate. These could represent proximal ureteral calculi. IMPRESSION: 2 tangential calcifications located at the L4 level to the left of midline are visualized. Given the previously reported hydronephrosis, these could represent proximal ureteral calculi. Electronically signed by: Romie Lincoln M.D. 04/17/2017 1:48 PM Dictated Date/Time: 04/17/2017 1:45 PM
[2017-04-17] MEDS ORDERED: CONSULT PHARMACY STA ×2 (15:23)
[2017-04-17] MEDS ORDERED: NOREPINEPHRINE BIT INJ 8 MG in DEXTROSE 5% 500ML 500 ML IV PRN (15:23)
[2017-04-17] MEDS ORDERED: GLUCOSE 40% GEL 15 GM TUBE PO PRN (15:30)
[2017-04-17] MEDS ORDERED: DEXTROSE 50% 50 ML SYR IV PRN (15:30)
[2017-04-17] MEDS ORDERED: HEPARIN SOD 5000 UNIT/0.5 ML CARP SQ SCH (15:30)
[2017-04-17] MEDS ORDERED: GLUCAGON FOR INJ 1 MG VIAL SQ PRN (15:30)
[2017-04-17] MEDS ORDERED: ICU PROTOCOL FOR HYPERGLYCEMIA PRN (15:30)
[2017-04-17] MEDS ORDERED: GLUCOSE 10 TABS/TUBE PO PRN (15:30)
[2017-04-17] MEDS ORDERED: KETAMINE HCL INJ 50 MG/ML 10 ML VIAL ONE (15:36)
[2017-04-17] MEDS ORDERED: ALBUMIN HUMAN 5% 12.5 GM/250 ML VIAL IV ONE (15:40)
[2017-04-17] MEDS ORDERED: VASOPRESSIN 20 UNIT/ML VIAL ONE (15:41)
[2017-04-17] MEDS ORDERED: PHARMACY GLYCEMIC MGMT CONSULT PRN (15:50)
[2017-04-17] MEDS ORDERED: IMIPENEM/CILASTATIN CONSULT ACTIVE PRN (15:52)
--- NOTE | 2017-04-17 16:02 | History and Physical ---
History & Physical Date & Time of Service: Apr 17, 2017 at 15:43 Chief Complaint: Back Pain Primary Care Physician: Agustina Cummings M.D. History of Present Illness Source: patient 51 years old female with past medical history of hypertension, diabetes mellitus , DVTs/PEs on Xarelto, depression/bipolar, degenerative joint disease, asthma and morbid obesity presented to the ED yesterday with hematuria 1 month and burning sensation of the urine 3 days She was found to have 5 mm ureteral stone with mild hydronephrosis. She was sent home with Cipro after cultures were obtained. Presented today with lethargy generalized weakness and hypotension. Continues to have burning sensation in the urine/blood Also complain of cough left lower quadrant abdominal pain Appears to be in septic shock. Denies any chest pain or shortness of breath Last month she was in Coumadin and presented to the ED with dark stool, she was found to have a non bleeding gastric ulcer and was discharged on PPI twice a day , her Coumadin was switched to Xarelto Past Medical/Surgical History Medical Problems: (1) Abdominal pain Status: Resolved (2) Abdominal pain Status: Resolved (3) Abdominal pain Status: Resolved (4) Abdominal wall cellulitis Status: Resolved (5) Acute hypokalemia Status: Resolved (6) Acute renal failure syndrome Status: Resolved (7) Ankle pain Status: Resolved (8) Asthma Status: Chronic (9) Atypical syncope Status: Resolved (10) Benign hypertension Status: Chronic (11) Bipolar disorder Status: Chronic (12) Bowel obstruction Status: Resolved (13) Cellulitis Status: Resolved (14) CELLULITIS ABDOMEN Status: Resolved (15) Cellulitis and abscess of trunk Status: Resolved (16) Chronic pain Status: Chronic (17) Contusion of ankle Status: Resolved (18) Contusion of periorbital region, left Status: Resolved (19) Degenerative joint disease of spine Status: Chronic (20) Dehydration Status: Resolved (21) Dehydration Status: Resolved (22) Depression Status: Chronic (23) Diabetes mellitus type 2 Status: Chronic (24) DM (diabetes mellitus screen) Status: Chronic (25) Drug-seeking behavior Status: Chronic (26) DVT (deep venous thrombosis) Status: Resolved (27) Exacerbation of chronic back pain Status: Resolved (28) Fall Status: Resolved (29) Fracture of fourth metatarsal bone of left foot Status: Resolved (30) Gastroesophageal reflux disease Status: Chronic (31) Hepatic encephalopathy Status: Resolved (32) Hernia of abdominal wall Status: Chronic (33) Hyperglycemia Status: Resolved (34) Hypokalemia Status: Resolved (35) Hypokalemia Status: Resolved (36) Hypokalemia Status: Resolved (37) Hypokalemia Status: Resolved (38) Hypothyroidism Status: Chronic (39) Hypoxia Status: Resolved (40) Incarcerated ventral hernia Status: Resolved (41) Incisional irritation Status: Resolved (42) Incisional pain Status: Resolved (43) Inguinal lymphadenopathy Status: Resolved (44) Insomnia Status: Chronic (45) LUMBAGO Status: Chronic (46) Migraine Status: Chronic (47) Morbid obesity Status: Resolved (48) Morbid obesity Status: Chronic (49) Morbid obesity Status: Chronic (50) Obstructive sleep apnea Status: Chronic (51) Pain, dental Status: Resolved (52) Renal colic on right side Status: Resolved (53) Renal insufficiency Status: Resolved (54) Renal insufficiency Status: Resolved (55) SBO (small bowel obstruction) Status: Resolved (56) Seroma, postoperative Status: Resolved (57) Sleep apnea Status: Resolved (58) Spinal stenosis Status: Chronic (59) Supraumbilical hernia Status: Chronic Surgical Problems: (1) H/O hernia repair Status: Chronic (2) H/O knee surgery Status: Resolved (3) H/O: hysterectomy Status: Resolved (4) History of cholecystectomy Status: Resolved (5) Hx of appendectomy Status: Resolved Social History Problems: (1) Diabetic neuropathy Status: Chronic Family History Cancer Diabetes mellitus Gallbladder disease Heart disease Hypertension Lung disease Social History Smoking Status: Current Every Day Smoker Drug Use: none Marital Status: single, in relationship Housing status: other Occupational Status: unemployed, disabled Immunizations History of Influenza Vaccine: No Influenza Vaccine Date: Feb 20, 2011 History of Tetanus Vaccine?: 2009 Tetanus Immunization Date: Dec 21, 2005 History of Pneumococcal: Yes Pneumococcal Date: Feb 03, 2012 History of Hepatitis B Vaccine: No Multi-Drug Resistant Organisms History of MDRO: No Allergies Coded Allergies: Iodinated Diagnostic Agents (Verified Allergy, Intermediate, hives, ) Per patient she has had it since without problem (01/25/16 Ioversal given with no pretreats and no mention of rxn; also given Ioversal 11/26/06 with pretreats) Adhesives (Verified Allergy, Mild, RED RASH CAUSED BY PAPER TAPE, 04/16/17 ) Alprazolam (Verified Allergy, Unknown, MAKES LOOPY,DO AND SAY SILLY THINGS , 04/16/17) Metformin (Verified Allergy, Unknown, HANDS FEET FACE NUMB, 04/16/17) Vancomycin (Verified Adverse Reaction, Severe, renal failure, required dialysis x 3 MONTHS, 04/16/17) Methylparaben (Verified Adverse Reaction, Intermediate, FLUID RETENTION, 04/16/17) Oxymorphone (Verified Adverse Reaction, Intermediate, FLUID RETENTION, ) Gabapentin (Verified Adverse Reaction, Mild, Aphasia/Speech impairments, 04/16/17) Sulfa Antibiotics (Verified Adverse Reaction, Mild, GI SYMPTOMS, 04/16/17) Acetaminophen (Verified Adverse Reaction, Unknown, Liver problems., ) Codeine (Verified Adverse Reaction, Unknown, UPSET STOMACH, 04/16/17) Pregabalin (Verified Adverse Reaction, Unknown, Aphasia/Speech impairments , 04/16/17) Home Medications Scheduled Carvedilol (Coreg), 12.5 MG PO BID Ciprofloxacin Hcl (Cipro), 500 MG PO BID Duloxetine Hcl (Cymbalta), 60 MG PO BID Escitalopram Oxalate (Lexapro), 20 MG PO QPM Insulin Aspart (Novolog Flexpen), UNITS SC TIDM Insulin Glargine (Lantus Solostar), 75 UNITS SQ BID Levothyroxine Sodium (Levothyroxine Sodium), 200 MG PO DAILY Rivaroxaban (Xarelto), 20 MG PO DAILY Scheduled PRN Home O2 Therapy (Oxygen), 3 LITERS NA UD PRN for Shortness of Breath Oxycodone Immediate Rel Tab (Roxicodone Ir), 1-2 TAB PO Q4H PRN for Severe Pain Review of Systems Constitutional: + fever, + chills, + weakness Eyes: No worsening of vision, No eye pain, No redness, No discharge, No diplopia, No problem reported ENT: No hearing loss, No unusual epistaxis, No nasal symptoms, No sore throat, No tinnitus, No dental problems, No trouble swallowing, No problem reported Respiratory: No cough, No sputum, No wheezing, No shortness of breath, No dyspnea on exertion, No dyspnea at rest, No hemoptysis, No problem reported Cardiovascular: No chest pain, No orthopnea, No PND, No edema, No claudication , No palpitations, No problem reported Abdomen: + pain, No nausea, No vomiting, No diarrhea, No constipation, No GI bleeding, No problem reported Genitourinary - Female: + dysuria, + urinary frequency, + hematuria Neurologic: No memory loss, No paralysis, No weakness, No numbness/tingling, No vertigo, No balance problems, No problem reported Psychiatric: No depression symptoms, No anhedonism, No anxiety, No insomnia, No substance abuse, No problem reported Endocrine: No fatigue, No excessive thirst, No excessive urination, No problem reported Hematologic / Lymphatic: No abnormal bleeding/bruising, No clotting problems, No swollen lymph nodes, No night sweats, No problem reported Integumentary: No rash, No itch, No new/changing skin lesions, No color change , No bleeding, No problem reported Allergic / Immunologic: No environmental allergies, No seasonal allergies, No pet sensitivities, No food allergies, No hives, No frequent infections, No poor healing, No prolonged convalescence, No problem reported Physical Exam Vital Signs Date Time Temp Pulse Resp B/P (MAP) Pulse Ox O2 Delivery O2 Flow Rate FiO2 04/17/17 14:50 71 18 81/51 93 Nasal Cannula 4.0 04/17/17 13:38 85 16 107/57 96 Nasal Cannula 4.0 04/17/17 13:04 81 18 86/53 95 Room Air 4.0 04/17/17 11:25 94 Nasal Cannula 4.0 04/17/17 11:11 39.3 97 18 131/69 Nasal Cannula 4.0 04/17/17 11:11 87 Room Air General Appearance: + severe distress, + obese Eyes: normal inspection, EOMI ENT: normal ENT inspection, hearing grossly normal Neck: supple Respiratory/Chest: chest non-tender, lungs clear, normal breath sounds, no respiratory distress, no accessory muscle use Cardiovascular: regular rate, rhythm, no edema, no gallop, no JVD, no murmur, normal peripheral pulses Abdomen/GI: no organomegaly, no pulsatile mass, + tenderness (left lower quadrant), + distended Back: normal inspection Extremities/Musculoskelatal: normal inspection, no calf tenderness, no pedal edema Neurologic/Psych: manager department II-XII nml as tested, no motor/sensory deficits, alert, normal mood/affect, normal reflexes, oriented x 3, + pertinent finding (slight lethargic but fully oriented) Skin: normal color, warm/dry, no rash Diagnostics Laboratory Results Results Past 24 Hours Test 04/17/17 11:35 04/17/17 12:40 04/17/17 15:14 04/17/17 15:23 Range/Units White Blood Count 4.31 4.8-10.8 K/uL Red Blood Count 3.93 4.2-5.4 M/uL Hemoglobin 12.9 12.0-16.0 g/dL Hematocrit 38.2 37-47 % Mean Corpuscular Volume 97.2 80-100 fL Mean Corpuscular Hemoglobin 32.8 25-34 pg Mean Corpuscular Hemoglobin Concent 33.8 32-36 g/dl Platelet Count 110 130-400 K/uL Mean Platelet Volume 8.8 7.4-10.4 fL Neutrophils (%) (Auto) 87.6 % Lymphocytes (%) (Auto) 7.7 % Monocytes (%) (Auto) 2.6 % Eosinophils (%) (Auto) 1.6 % Basophils (%) (Auto) 0.5 % Neutrophils # (Auto) 3.78 1.4-6.5 K/uL Lymphocytes # (Auto) 0.33 1.2-3.4 K/uL Monocytes # (Auto) 0.11 0.11-0.59 K/uL Eosinophils # (Auto) 0.07 0-0.5 K/uL Basophils # (Auto) 0.02 0-0.2 K/uL RDW Standard Deviation 63.3 36.4-46.3 fL RDW Coefficient of Variation 18.0 11.5-14.5 % Immature Granulocyte % (Auto) 0.0 % Immature Granulocyte # (Auto) 0.00 0.00-0.02 K/uL Sodium Level 138 136-145 mmol/L Potassium Level 3.8 3.5-5.1 mmol/L Chloride Level 105 98-107 mmol/L Carbon Dioxide Level 27 21-32 mmol/L Anion Gap 6.0 3-11 mmol/L Blood Urea Nitrogen 20 7-18 mg/dl Creatinine 1.48 0.60-1.20 mg/dl Est Creatinine Clear Calc Drug Dose 66.8 ml/min Estimated GFR () 46.4 Estimated GFR (Non- 40.0 BUN/Creatinine Ratio 13.4 10-20 Random Glucose 130 70-99 mg/dl Calcium Level 8.5 8.5-10.1 mg/dl Total Bilirubin 0.9 0.2-1 mg/dl Aspartate Amino Transf (AST/SGOT) 37 15-37 U/L Alanine Aminotransferase (ALT/SGPT) 21 12-78 U/L Alkaline Phosphatase 101 45-117 U/L Total Protein 6.9 6.4-8.2 gm/dl Albumin 2.7 3.4-5.0 gm/dl Globulin 4.2 2.5-4.0 gm/dl Albumin/Globulin Ratio 0.6 0.9-2 Chemistry Specimen Hemolysis Bedside Lactic Acid Venous 1.85 0.90-1.70 mmol/L Microbiology Results 04/17/17 Blood Culture, Received Pending 04/17/17 Blood Culture, Received Pending Impression Assessment and Plan 51 years old female with past medical history of hypertension, diabetes mellitus , DVTs/PEs on Xarelto, depression/bipolar, degenerative joint disease, asthma and morbid obesity presented to the ED with septic shock secondary to obstructive uropathy Assessment Septic shock present on admission secondary to below Obstructive uropathy/complicated UTI present on admission Morbid obesity due to excessive caloric intake/BMI of 63.3 History of PE/DVT currently on Xarelto Depression/bipolar, currently under control Obstructive sleep apnea Hypertension Diabetes mellitus type 2 insulin-requiring Degenerative joint disease Asthma, mild intermittent Plan Stat consult to critical care attending Dr. Aguilar was appreciated, he will place a central line Ordered levophed drip to keep map at 70 IV fluid resuscitation, follow-up lactic acid, ordered Pro calcitonin Increase Primaxin dose to 1 g every 8 hours and consult ID Follow-up urine culture and blood cultures Lactinex for C. difficile prophylaxis Consult urologist stat was appreciated, patient is going for a stent for Recent GI bleed, will switch her Protonix to IV As soon as cleared by urologist, will start her on heparin drip for anticoagulation Continued Cymbalta and Lexapro cont Lantus with insulin sliding scale as per pharmacy recommendation Hold Coreg Continue Synthroid and check TSH DVT prophylaxis with heparin subcutaneous until cleared for full dose anticoagulation with heparin drip VTE Prophylaxis VTE Risk Assessment Done? Y/N: Yes Risk Level: Moderate
--- NOTE | 2017-04-17 16:10 | Urology Consultation ---
History General Date of Service: Apr 17, 2017. Primary Care Physician: Agustina Cummings M.D. History of Present Illness 51 y/o female with morbid obesity and past hx of stones and s/p r ureteroscopy July 2015 who developed a PE post procedure and has been on xaralto since. She had a ct in january 2 months ago with a l renal stone . She presented yesterday with l flank pain and had a sonogram that showed l hydro because she has had so many ct scans and she was discharged to home . She has been lethargic and nauseas with ongoing pain and presents now with a kub that shows 2 calcifications not5 there on previous KUBs suspicious for mid ureteral stones . She complains of l flank pain like kidney stone pain and had a temp over 39 centegrade and her blood pressure is in the 80s . She is getting a central line at this point from critical care and anesthesia has seen her in preperation for my placing a stent. Given the l hydro ,symptoms, and KUB showing new calcification suspicious for mid ureteral stones and no visible calcifications over l kidney it seems reasonable to place a stent w/o delaying care for a confirmatory ct. Explained the risks to the pt including not being able to pass a stent and need for transfer and possibility that she does not have a stone. She agrees to proceed. Of note she says she does not have abn anaphylactic reaction to iodine Laboratory Labs were reviewed and are within normal limits unless listed below. Labs are available in the chart and at [facility] Problem List Medical Problems: (1) Abdominal contusion Status: Acute (2) Abdominal wall pain Status: Acute (3) Acute abdominal pain Status: Acute (4) Acute exacerbation of chronic low back pain Status: Acute (5) Acute flank pain Status: Acute (6) Acute generalized abdominal pain Status: Acute (7) Anxiety Status: Acute (8) Asthma Status: Chronic (9) Back pain Status: Acute (10) Back pain Status: Acute (11) Back pain Status: Acute (12) Back pain Status: Acute (13) Back pain Status: Acute (14) Benign hypertension Status: Chronic (15) Bipolar disorder Status: Chronic (16) Cauda equina compression Status: Acute (17) Chronic pain Status: Chronic (18) Closed head injury Status: Acute (19) Contusion of left foot Status: Acute (20) Contusion of left knee Status: Acute (21) Contusion of multiple sites Status: Acute (22) Degenerative joint disease of spine Status: Chronic (23) Depression Status: Chronic (24) Diabetes mellitus type 2 Status: Chronic (25) Diabetes mellitus with hyperglycemia Status: Acute (26) Diabetes mellitus with hyperglycemia Status: Acute (27) Drug-seeking behavior Status: Chronic (28) Gastroesophageal reflux disease Status: Chronic (29) Headache Status: Acute (30) Headache Status: Acute (31) Hematuria Status: Acute (32) Hernia of abdominal wall Status: Chronic (33) Hyperammonemia Status: Acute (34) Hypothyroidism Status: Chronic (35) Hypothyroidism Status: Acute (36) Insomnia Status: Chronic (37) Insulin dependent type 2 diabetes mellitus, uncontrolled Status: Acute (38) Kidney stone on left side Status: Acute (39) Left flank pain Status: Acute (40) LUMBAGO Status: Chronic (41) Migraine Status: Acute (42) Migraine Status: Chronic (43) Morbid obesity Status: Chronic (44) Morbid obesity Status: Chronic (45) Morbid obesity with BMI of 60.0-69.9, adult Status: Acute (46) Noncompliance with medication regimen Status: Acute (47) Obstructive sleep apnea Status: Chronic (48) Poorly controlled diabetes mellitus Status: Acute (49) Right flank pain Status: Acute (50) Right-sided chest wall pain Status: Acute (51) Spinal stenosis Status: Chronic (52) Suprapubic pain Status: Acute (53) Supraumbilical hernia Status: Chronic (54) Syncope Status: Acute (55) Urinary tract infection Status: Acute (56) Vaginal candidiasis Status: Acute Surgical Problems: (1) H/O hernia repair Status: Chronic Family History Cancer Diabetes mellitus Gallbladder disease Heart disease Hypertension Lung disease Social History Hx Tobacco Use In Past Year?: Yes Marital status: single, in relationship Housing status: other Occupation status: unemployed, disabled Immunizations History of Influenza Vaccine: No Influenza Vaccine Date: Feb 20, 2011 History of Tetanus Vaccine?: 2009 Tetanus Immunization Date: Dec 21, 2005 History of Pneumococcal: Yes Pneumococcal Date: Feb 03, 2012 History of Hepatitis B Vaccine: No History of MDRO No Allergies Coded Allergies: Iodinated Diagnostic Agents (Verified Allergy, Intermediate, hives, ) Per patient she has had it since without problem (01/25/16 Ioversal given with no pretreats and no mention of rxn; also given Ioversal 11/26/06 with pretreats) Adhesives (Verified Allergy, Mild, RED RASH CAUSED BY PAPER TAPE, 04/16/17 ) Alprazolam (Verified Allergy, Unknown, MAKES LOOPY,DO AND SAY SILLY THINGS , 04/16/17) Metformin (Verified Allergy, Unknown, HANDS FEET FACE NUMB, 04/16/17) Vancomycin (Verified Adverse Reaction, Severe, renal failure, required dialysis x 3 MONTHS, 04/16/17) Methylparaben (Verified Adverse Reaction, Intermediate, FLUID RETENTION, 04/16/17) Oxymorphone (Verified Adverse Reaction, Intermediate, FLUID RETENTION, ) Gabapentin (Verified Adverse Reaction, Mild, Aphasia/Speech impairments, 04/16/17) Sulfa Antibiotics (Verified Adverse Reaction, Mild, GI SYMPTOMS, 04/16/17) Acetaminophen (Verified Adverse Reaction, Unknown, Liver problems., ) Codeine (Verified Adverse Reaction, Unknown, UPSET STOMACH, 04/16/17) Pregabalin (Verified Adverse Reaction, Unknown, Aphasia/Speech impairments , 04/16/17) Medications Home Medications: Home Meds and Scripts Medications Dose Route/Sig Max Daily Dose Days Date Category Dose Instructions Roxicodone Ir (Oxycodone HCl) 5 Mg Tab 1-2 Tab PO Q4H PRN 04/16/17 Rx Cipro (Ciprofloxacin Hcl) 500 Mg Tab 500 Mg PO BID 04/16/17 Rx Xarelto (Rivaroxaban) 20 Mg Tab 20 Mg PO DAILY 01/09/17 Reported Levothyroxine Sodium 200 Mcg Tab 200 Mg PO DAILY 01/09/17 Reported Coreg (Carvedilol) 12.5 Mg Tab 12.5 Mg PO BID 07/13/15 Reported Lexapro (Escitalopram Oxalate) 20 Mg Tab 20 Mg PO QPM 04/16/15 Reported Lantus Solostar (Insulin Glargine) 100 Unit/Ml Inj 75 Units SQ BID 04/16/15 Reported Oxygen Gas 3 Liters NA UD PRN 08/28/14 Reported Novolog Flexpen (Insulin Aspart) 100 Units/Ml Inj Units SC TIDM 08/28/14 Reported COVERAGE DIRECTED BY FOLLOWING SLIDING SCALE: 150 - 199 2 UNITS 200 - 249 4 UNITS 250 - 299 8 UNITS 300 - 349 12 UNITS 350 - 399 18 UNITS 400 - 449 24 UNITS 450 - 499 30 UNITS Cymbalta (Duloxetine Hcl) 60 Mg Cap 60 Mg PO BID 08/28/14 Reported Inpatient Medications: Current Inpatient Medications Medications (Trade) Dose Ordered Sig/Nelda Route Start Time Stop Time Status Last Admin Dose Admin Sodium Chloride 1,000 ml @ 250 mls/hr Q4H STAT IV 04/17/17 14:59 04/17/17 18:58 04/17/17 15:05 250 MLS/HR Imipenem/ Cilastatin Sodium 500 mg/Dextrose 110 ml @ 100 mls/hr NOW STAT IV 04/17/17 15:21 04/17/17 16:26 UNV Imipenem/ Cilastatin Sodium 1000 mg/Dextrose 120 ml @ 100 mls/hr Q8H IV 04/17/17 21:30 04/27/17 21:29 UNV Heparin Sodium (Porcine) (Heparin Sq 5000 Unit/0.5ml) 5,000 unit Q8H SQ 04/17/17 15:30 05/17/17 15:29 UNV Sodium Chloride 1,000 ml @ 999 mls/hr Q1H1M STAT IV 04/17/17 15:23 04/17/17 16:23 UNV Norepinephrine Bitartrate 8 mg/ Dextrose 508 ml @ 0 mls/hr Q0M PRN IV 04/17/17 15:23 05/17/17 15:22 Pantoprazole Sodium 40 mg/ Syringe 10 ml @ 5 mls/min DAILY IV 04/18/17 09:00 05/18/17 08:59 UNV Miscellaneous Information (Icu Protocol For Hyperglycemia) 1 ea PRN PRN N/A 04/17/17 15:30 04/19/17 15:29 UNV Insulin Aspart (novoLOG ASPART) SLIDING SCALE If C... ACHS SC 04/17/17 16:00 05/17/17 15:59 UNV Glucose (Glucose 40% Gel) 15-30 GRAMS 15 GRAMS... UD PRN PO 04/17/17 15:30 05/17/17 15:29 Glucose (Glucose Chew Tab) 4-8 Tablets 4 Tabl... UD PRN PO 04/17/17 15:30 05/17/17 15:29 Dextrose (Dextrose 50% 50ML Syringe) 25-50ML OF 50% DW IV FOR... UD PRN IV 04/17/17 15:30 05/17/17 15:29 Glucagon (Glucagon Inj) 1 mg UD PRN SQ 04/17/17 15:30 05/17/17 15:29 Miscellaneous Information (Consult Glycemic Management Pharmacy) 1 ea UD PRN N/A 04/17/17 15:50 05/17/17 15:49 Miscellaneous Information (Pharmacy Consult) 1 ea ONE STAT N/A 04/17/17 15:23 04/17/17 15:24 UNV Miscellaneous Information (Pharmacy Consult) 1 ea ONE STAT N/A 04/17/17 15:23 04/17/17 15:24 UNV Review of Systems Review of Systems Constitutional: + fever Eyes: No see HPI, No blurred vision, No double vision, No eye pain, No loss of night vision, No problem reported Physical Exam Vital Signs: Vital Signs Past 12 Hours Date Time Temp Pulse Resp B/P (MAP) Pulse Ox O2 Delivery O2 Flow Rate FiO2 04/17/17 14:50 71 18 81/51 93 Nasal Cannula 4.0 04/17/17 13:38 85 16 107/57 96 Nasal Cannula 4.0 04/17/17 13:04 81 18 86/53 95 Room Air 4.0 04/17/17 11:25 94 Nasal Cannula 4.0 04/17/17 11:11 39.3 97 18 131/69 Nasal Cannula 4.0 04/17/17 11:11 87 Room Air Physical Exam: General Appearance: + pertinent finding (morbidly obese) ENT: normal ENT inspection, hearing grossly normal, TMs normal, pharynx normal Respiratory/Chest: no accessory muscle use Gastrointestinal: Abdomen: pertinent finding (l flank pain to percussion) Extremities: no calf tenderness Neurologic/Psychiatric: director craft center II-XII nml as tested, no motor/sensory deficits Skin: warm/dry Additional Comments: pt is lethargic Assessment & Plan Assessment & Plan After pt has central line place will place l ureteral stent. She has been admitted by medicine and will need ureteroscopy and laser litho in future If symptoms do not improve will need ct
--- NOTE | 2017-04-17 16:30 | DIAGNOSTIC IMAGING REPORT ---
CHEST ONE VIEW PORTABLE CLINICAL HISTORY: Shortness of breath. Central line placement. COMPARISON STUDY: 04/17/2017 FINDINGS: The study is rotated. The heart is enlarged. There is no failure. There is no focal pulmonary consolidation. There is no pneumothorax. There is a right internal jugular intravenous catheter with its tip near the confluence of the right subclavian and right internal jugular veins.[ IMPRESSION: No evidence of pneumothorax status post placement of a right internal jugular central venous catheter. Electronically signed by: Romie Lincoln M.D. 04/17/2017 4:28 PM Dictated Date/Time: 04/17/2017 4:28 PM
[2017-04-17 16:41] LABS: ARTERIAL BLD GAS O2 SATURATION 98.9 % (90-95); ARTERIAL BLOOD GAS HCO3 27 mmol/L (19-24); ARTERIAL BLOOD GAS PO2 143 mm/Hg (80-95); ARTERIAL BLOOD GAS pH 7.41 (7.35-7.45)
[2017-04-17 16:42] LABS: ALLEN TEST POS (POS); O2 ADMINISTRATION 15 L
[2017-04-17] MEDS ORDERED: CONRAY 30% 150ML BOTTLE ONE (16:43)
[2017-04-17] MEDS ORDERED: MIDAZOLAM HCL 1 MG/ML 2ML VIAL ONE (16:56)
[2017-04-17] MEDS ORDERED: PROPOFOL IV EMULSION 10 MG/ML 20 ML VIAL IV ONE (16:56)
[2017-04-17] MEDS ORDERED: PHENYLEPHRINE 100MCG/ML 5ML SYR ONE (17:01)
[2017-04-17 17:15] VITALS: BP_SYST 110; BP_SYST 113; BP_DIAS 55; BP_DIAS 65; PULSE 54; TEMP 36.4; O2SAT 100; BMI 64.3
--- NOTE | 2017-04-17 17:18 | Critical Care Consultation ---
Critical Care Consultation Date of Consultation: Apr 17, 2017. 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 She was found to have mild hydro -on the left side yesterday by ultrasound, and on the CT scan dated February 09, 2017 patient had a 6 mm left renal calculus, distal finding of cirrhosis with stable splenomegaly indicative portal hypertension. Cultures were obtained yesterday both of which revealed 2 forms of gram-negative bacilli greater than 100 CFU sensitivity pending and was started on Cipro yesterday and discharged home. She return to the ER today with complaint of constant shortness of breath and generalized fatigue. She was found to be hypotensive in the emergency department requiring aggressive fluid resuscitation as well as vasoactive medication. I verbally consented as well as obtained written consent for placement of a right internal jugular central venous catheter as well as a radial arterial line. These were placed and the patient has been sent to the operating room for further management by urology. Of note she normally takes Xarelto, she reports that she has not taken it for the last 2 days. Family History Cancer Diabetes mellitus Gallbladder disease Heart disease Hypertension Lung disease Social History Smoking Status: Current Every Day Smoker Drug Use: none Marital Status: single, in relationship Housing Status: lives with family Occupation Status: unemployed, disabled Allergies Coded Allergies: Iodinated Diagnostic Agents (Verified Allergy, Intermediate, hives, ) Per patient she has had it since without problem (01/25/16 Ioversal given with no pretreats and no mention of rxn; also given Ioversal 11/26/06 with pretreats) Adhesives (Verified Allergy, Mild, RED RASH CAUSED BY PAPER TAPE, 04/16/17 ) Alprazolam (Verified Allergy, Unknown, MAKES LOOPY,DO AND SAY SILLY THINGS , 04/16/17) Metformin (Verified Allergy, Unknown, HANDS FEET FACE NUMB, 04/16/17) Vancomycin (Verified Adverse Reaction, Severe, renal failure, required dialysis x 3 MONTHS, 04/16/17) Methylparaben (Verified Adverse Reaction, Intermediate, FLUID RETENTION, 04/16/17) Oxymorphone (Verified Adverse Reaction, Intermediate, FLUID RETENTION, ) Gabapentin (Verified Adverse Reaction, Mild, Aphasia/Speech impairments, 04/16/17) Sulfa Antibiotics (Verified Adverse Reaction, Mild, GI SYMPTOMS, 04/16/17) Acetaminophen (Verified Adverse Reaction, Unknown, Liver problems., ) Codeine (Verified Adverse Reaction, Unknown, UPSET STOMACH, 04/16/17) Pregabalin (Verified Adverse Reaction, Unknown, Aphasia/Speech impairments , 04/16/17) Home Medications Scheduled Carvedilol (Coreg), 12.5 MG PO BID Ciprofloxacin Hcl (Cipro), 500 MG PO BID Duloxetine Hcl (Cymbalta), 60 MG PO BID Escitalopram Oxalate (Lexapro), 20 MG PO QPM Insulin Aspart (Novolog Flexpen), UNITS SC TIDM Insulin Glargine (Lantus Solostar), 75 UNITS SQ BID Levothyroxine Sodium (Levothyroxine Sodium), 200 MG PO DAILY Rivaroxaban (Xarelto), 20 MG PO DAILY Scheduled PRN Home O2 Therapy (Oxygen), 3 LITERS NA UD PRN for Shortness of Breath Oxycodone Immediate Rel Tab (Roxicodone Ir), 1-2 TAB PO Q4H PRN for Severe Pain Current Inpatient Medications Current Inpatient Medications Medications (Trade) Dose Ordered Sig/Nelda Route Start Time Stop Time Status Last Admin Dose Admin Sodium Chloride 1,000 ml @ 250 mls/hr Q4H STAT IV 04/17/17 14:59 04/17/17 18:58 04/17/17 15:05 250 MLS/HR Imipenem/ Cilastatin Sodium 500 mg/Dextrose 110 ml @ 100 mls/hr NOW STAT IV 04/17/17 15:21 04/17/17 16:26 UNV Imipenem/ Cilastatin Sodium 1000 mg/Dextrose 120 ml @ 100 mls/hr Q8H IV 04/17/17 21:30 04/27/17 21:29 UNV Heparin Sodium (Porcine) (Heparin Sq 5000 Unit/0.5ml) 5,000 unit Q8H SQ 04/17/17 15:30 05/17/17 15:29 UNV Norepinephrine Bitartrate 8 mg/ Dextrose 508 ml @ 0 mls/hr Q0M PRN IV 04/17/17 15:23 05/17/17 15:22 Pantoprazole Sodium 40 mg/ Syringe 10 ml @ 5 mls/min DAILY IV 04/18/17 09:00 05/18/17 08:59 UNV Miscellaneous Information (Icu Protocol For Hyperglycemia) 1 ea PRN PRN N/A 04/17/17 15:30 04/19/17 15:29 Insulin Aspart (novoLOG ASPART) SLIDING SCALE If C... ACHS SC 04/17/17 16:00 05/17/17 15:59 UNV Glucose (Glucose 40% Gel) 15-30 GRAMS 15 GRAMS... UD PRN PO 04/17/17 15:30 05/17/17 15:29 Glucose (Glucose Chew Tab) 4-8 Tablets 4 Tabl... UD PRN PO 04/17/17 15:30 05/17/17 15:29 Dextrose (Dextrose 50% 50ML Syringe) 25-50ML OF 50% DW IV FOR... UD PRN IV 04/17/17 15:30 05/17/17 15:29 Glucagon (Glucagon Inj) 1 mg UD PRN SQ 04/17/17 15:30 05/17/17 15:29 Miscellaneous Information (Consult Glycemic Management Pharmacy) 1 ea UD PRN N/A 04/17/17 15:50 05/17/17 15:49 Miscellaneous Information (Pharmacy Consult) 1 ea UD PRN N/A 04/17/17 15:52 05/17/17 15:51 UNV Duloxetine HCl (Cymbalta Cap) 60 mg BID PO 04/17/17 21:00 05/17/17 20:59 UNV Escitalopram Oxalate (Lexapro Tab) 20 mg QPM PO 04/17/17 21:00 05/17/17 20:59 UNV Levothyroxine Sodium (Synthroid Tab) 0.2 mcg DAILY PO 04/18/17 09:00 05/18/17 08:59 UNV Oxycodone HCl (Roxicodone Immediate Rel Tab) 5 mg Q4H PRN PO 04/17/17 16:00 05/01/17 15:59 UNV Lactobacillus Acidophilus (Lactinex Granules Pack) 1 gm TIDM PO 04/17/17 18:00 05/17/17 17:59 UNV Review of Systems Constitutional: + weakness, No chills Respiratory: + shortness of breath, + dyspnea on exertion, + dyspnea at rest, No cough, No sputum Cardiovascular: No chest pain, No orthopnea Abdomen: + pain, + nausea Genitourinary - Female: + dysuria Physical Exam Date Time Temp Pulse Resp B/P (MAP) Pulse Ox O2 Delivery O2 Flow Rate FiO2 04/17/17 16:30 67 20 87/51 94 Nasal Cannula 2.0 04/17/17 16:22 58 20 92/50 93 Nasal Cannula 2.0 04/17/17 16:15 69 20 79/60 97 Nasal Cannula 4.0 04/17/17 16:00 62 22 109/67 97 Nasal Cannula 4.0 04/17/17 15:45 64 18 68/44 98 Nasal Cannula 04/17/17 15:39 69 20 81/43 98 Nasal Cannula 4.0 04/17/17 14:50 71 18 81/51 93 Nasal Cannula 4.0 04/17/17 13:38 85 16 107/57 96 Nasal Cannula 4.0 04/17/17 13:04 81 18 86/53 95 Room Air 4.0 04/17/17 11:25 94 Nasal Cannula 4.0 04/17/17 11:11 39.3 97 18 131/69 Nasal Cannula 4.0 04/17/17 11:11 87 Room Air General Appearance: mild distress Head: normocephalic, atraumatic Eyes: PERRLA Neck: normal range of motion, no tenderness, trachea midline Respiratory: breath sounds normal Cardiovasular: other (distant heart sounds) Abdomen: other (difficult exam secondary to body habitus) Upper Extremities: no edema Lower Extremities: no edema Neuro: alert, oriented x 3, normal motor exam (moves all 4 extremities) Laboratory Results Last 24 Hours Test 04/17/17 11:35 04/17/17 12:40 04/17/17 16:29 White Blood Count 4.31 K/uL Red Blood Count 3.93 M/uL Hemoglobin 12.9 g/dL Hematocrit 38.2 % Mean Corpuscular Volume 97.2 fL Mean Corpuscular Hemoglobin 32.8 pg Mean Corpuscular Hemoglobin Concent 33.8 g/dl Platelet Count 110 K/uL Mean Platelet Volume 8.8 fL Neutrophils (%) (Auto) 87.6 % Lymphocytes (%) (Auto) 7.7 % Monocytes (%) (Auto) 2.6 % Eosinophils (%) (Auto) 1.6 % Basophils (%) (Auto) 0.5 % Neutrophils # (Auto) 3.78 K/uL Lymphocytes # (Auto) 0.33 K/uL Monocytes # (Auto) 0.11 K/uL Eosinophils # (Auto) 0.07 K/uL Basophils # (Auto) 0.02 K/uL RDW Standard Deviation 63.3 fL RDW Coefficient of Variation 18.0 % Immature Granulocyte % (Auto) 0.0 % Immature Granulocyte # (Auto) 0.00 K/uL Sodium Level 138 mmol/L Potassium Level 3.8 mmol/L Chloride Level 105 mmol/L Carbon Dioxide Level 27 mmol/L Anion Gap 6.0 mmol/L Blood Urea Nitrogen 20 mg/dl Creatinine 1.48 mg/dl Est Creatinine Clear Calc Drug Dose 66.8 ml/min Estimated GFR () 46.4 Estimated GFR (Non- 40.0 BUN/Creatinine Ratio 13.4 Random Glucose 130 mg/dl Calcium Level 8.5 mg/dl Total Bilirubin 0.9 mg/dl Aspartate Amino Transf (AST/SGOT) 37 U/L Alanine Aminotransferase (ALT/SGPT) 21 U/L Alkaline Phosphatase 101 U/L Total Protein 6.9 gm/dl Albumin 2.7 gm/dl Globulin 4.2 gm/dl Albumin/Globulin Ratio 0.6 Chemistry Specimen Hemolysis Bedside Lactic Acid Venous 1.85 mmol/L Arterial Blood pH 7.41 Arterial Blood Partial Pressure CO2 44 mmHg Arterial Blood Partial Pressure O2 143 mm/Hg Arterial Blood HCO3 27 mmol/L Arterial Blood Oxygen Saturation 98.9 % Arterial Blood Base Excess 2.0 mEq/L Arterial Blood Gas Delivery 15 L Kermit Test POS Diagnostic Results I reviewed the chest x-ray obtained after placement of the right internal jugular central venous catheter, there is no pneumothorax have also reviewed the radiology report. 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 (4) Morbid obesity with BMI of 60.0-69.9, adult (5) Atrial fibrillation by electrocardiogram (6) Splenomegaly, not elsewhere classified (7) Cirrhosis (8) care home (current) use of insulin (9) Hypothyroid Reason Critically Ill: Patient is a 51-year-old female with severe sepsis secondary to pyelonephritis PLAN: Neuro: Depression * Continue Cymbalta 60 mg * Continue Lexapro 20 mg Nephrolithiasis * Pain control Resp: Obstructive sleep apnea * BiPAP when necessary CV: Atrial fibrillation by EKG * Do not see atrial fibrillation in her old record * Complete echocardiogram last in 2010 * Holding Coreg 12.5 mg twice a day Fluids/Renal: Crystalloid at 75 ML's per hour ID: Severe sepsis * Secondary to gram-negative organism * Will continue imipenem, will discontinue daptomycin based on culture results GI/Nutrition: Morbid obesity * Dietary consult Cirrhosis via CT scan with evidence of portal hypertension with splenomegaly * Check LFTs, May need follow-up with gastroenterology Heme: Long-term 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 I have personally spent 60 minutes of critical care time in the direct management of this patient. This is a life/limb threatening event. This includes time spent evaluating patient, direct bedside care, chart review, placing orders, interpretation of diagnostic studies, discussion with consultants, patient, and family members, as well as other required patient management activities. This time is exclusive of all separately billable procedures, and teaching time and separate from and in addition to any other critical care service time. Problem Qualifiers (1) Cirrhosis: Hepatic cirrhosis type: unspecified hepatic cirrhosis
--- NOTE | 2017-04-17 17:19 | DIAGNOSTIC IMAGING REPORT ---
INTRAOPERATIVE KUB CLINICAL HISTORY: LT STENT PLACEMENT COMPARISON STUDY: No previous studies for comparison. FINDINGS: 44 seconds of fluoroscopic time was utilized. 2 intraoperative fluoroscopic spot images are provided for interpretation. There is a small amount of contrast within the upper pole calyx. There is a left-sided double pigtail pigtail nephroureteral stent. IMPRESSION: Intraoperative radiographs demonstrating a left-sided nephroureteral stent Electronically signed by: Romie Lincoln M.D. 04/17/2017 5:17 PM Dictated Date/Time: 04/17/2017 5:16 PM
[2017-04-17 17:21] LABS: CALCIUM 7.4 mg/dl (8.5-10.1); CREATININE 1.37 mg/dl (0.60-1.20); MAGNESIUM 1.5 mg/dl (1.8-2.4)
[2017-04-17 17:22] LABS: BUN/CREATININE RATIO 14.1 (10-20); POTASSIUM 3.2 mmol/L (3.5-5.1); THYROID STIMULATING HORMONE 31.6 uIu/ml (0.300-4.500)
--- NOTE | 2017-04-17 17:24 | [facility] Post Operative Brief Note ---
Immediate Operative Summary Operative Date Apr 17, 2017. Pre-Operative Diagnosis Left ureteral stone, sepsis Post-Operative Diagnosis Left ureteral stone, sepsis Procedure(s) Performed Cystoscopy, left retrograde pyelogram, placement of left ureteral stent Surgeon Dr Aguilera Software Support Technician Surgeon(s) none Estimated Blood Loss 5 ml Findings appeared to have mild hydro which improved somewhat after stent Difficult to see a stone Bladder visibility poor Specimens none Drains 5 by 24 stent with 16 park
--- NOTE | 2017-04-17 17:28 | Procedure Note ---
Procedure Note Procedure Date Apr 17, 2017. Procedure Description Procedure Name: Left radial arterial line Procedure time out: side/site verified, patient ID confirmed, correct procedure Consent obtained: written Time of procedure: 16:10 Performed by: attending Contraindications: other (Xarelto use last taken 2 days ago) Description: The patient's left wrist was prepped and draped in a sterile fashion. 1% lidocaine, 1 mL was used to anesthetize the area. A 20-gauge arrow angiocatheter was inserted via modified Seldinger technique utilizing dynamic ultrasound guidance into the left radial artery Complications: none Patient tolerated procedure: well Post-procedure vital signs: reviewed and stable Central Line Procedure time out: side/site verified, patient ID confirmed, sterile procedure used Consent obtained: written Performed by: attending Indications: poor venous access, central drug admin. Contraindications: h/o venous thrombosis, other (Xarelto use last taken 48 hours ago) Prep: chlorhexadine prep, sterile drape, sterile procedures used Anesthesia: lidocaine 1% without epi Volume anesthetic (ml's): 2 Central line lumen: triple Central line location: internal jugular (R) Additional details: ultrasound guidance, Selinger technique used, line sutured , good blood return CXR: appropriate position Complications: none Patient tolerated procedure: well Post-procedure vital signs: reviewed and stable Comments: Critical Care Medicine Point of Care Bedside Ultrasound Procedure: Procedural Ultrasound Procedure Date: 04/17/2017 Indication: Sepsis and associated hypotension Attending: Elizabeth Aguilar DO Artery AND Vein visualized: y Compressible Vein: y Guidewire or Short Catheter seen in vein prior to dilation: y Line confirmed in Vein with ultrasound: y Lung Sliding on side of attempt (if applicable): na If no lung sliding or not obtained has CXR been ordered: Chest x-ray reviewed, no pneumothorax, appropriate position Impression: Sense full right internal jugular vein central venous catheter Images obtained are saved for permanent record
[2017-04-17] MEDS ORDERED: HEPARIN IV LOW DOSE NO BOLUS SCH (17:32)
[2017-04-17] MEDS ORDERED: FENTANYL CITRATE INJ 50 MCG/1 ML 2 ML VIAL IV PRN (17:45)
[2017-04-17] MEDS ORDERED: ATROPINE SULFATE 0.1 MG/ML 5ML SYR IV PRN (17:45)
[2017-04-17] MEDS ORDERED: PHENYLEPHRINE 100MCG/ML 5ML SYR IV PRN (17:45)
[2017-04-17] MEDS ORDERED: EpHEDrine SULFATE INJ 50 MG/ML AMP IV PRN (17:45)
[2017-04-17] MEDS ORDERED: ONDANSETRON INJ 2 MG/ML 2 ML VIAL IV PRN (17:45)
[2017-04-17 17:46] LABS: Hold Lt Blue Tube Used for Coag
--- NOTE | 2017-04-17 17:51 | Anesthesiology Progress Note ---
Anesthesia Post Op Note Date & Time Apr 17, 2017 at 17:50 Vital Signs Pain Intensity: 8.0 Vital Signs Past 12 Hours Date Time Temp Pulse Resp B/P (MAP) Pulse Ox O2 Delivery O2 Flow Rate FiO2 04/17/17 17:30 54 16 103/63 (80) 100 Non-Rebreather 15 112/55 (70) 04/17/17 17:21 36.4 56 12 104/62 (75) 100 Non-Rebreather 15 04/17/17 16:30 62 20 87/61 98 Non-Rebreather 10.0 04/17/17 16:30 67 20 87/51 94 Nasal Cannula 2.0 04/17/17 16:22 58 20 92/50 93 Nasal Cannula 2.0 04/17/17 16:19 60 20 92/53 97 Nasal Cannula 4.0 04/17/17 16:15 69 20 79/60 97 Nasal Cannula 4.0 04/17/17 16:00 62 22 109/67 97 Nasal Cannula 4.0 04/17/17 15:45 64 18 68/44 98 Nasal Cannula 04/17/17 15:39 69 20 81/43 98 Nasal Cannula 4.0 04/17/17 14:50 71 18 81/51 93 Nasal Cannula 4.0 04/17/17 13:38 85 16 107/57 96 Nasal Cannula 4.0 04/17/17 13:04 81 18 86/53 95 Room Air 4.0 04/17/17 11:25 94 Nasal Cannula 4.0 04/17/17 11:11 39.3 97 18 131/69 Nasal Cannula 4.0 04/17/17 11:11 87 Room Air Notes Mental Status: alert / awake / arousable, participated in evaluation Pt Amnestic to Procedure: Yes Nausea / Vomiting: adequately controlled Pain: adequately controlled Airway Patency, RR, SpO2: stable & adequate BP & HR: stable & adequate Hydration State: stable & adequate Anesthetic Complications: no major complications apparent Doing well. Still on norepi drip to maintain BP. Lethargic but arousable. Care turned over to ICU team.
[2017-04-17] MEDS: NORMOSOL R 1,000 ML IV SCH (17:52)
[2017-04-17] MEDS: HEPARIN 25,000 UNIT/500ML D5W 500 ML IV PRN (17:56)
[2017-04-17] MEDS ORDERED: IMIPENEM/CILASTATIN IV 500 MG in DEXTROSE 5% 100ML 100 ML IV ONE (18:00)
[2017-04-17] MEDS ORDERED: LACTOBACILLUS ACIDOPHILUS 1 GM PACK PO SCH (18:00)
[2017-04-17] MEDS ORDERED: NURSING VERBAL MED ORDER ONE ×2 (18:45→20:00)
[2017-04-17 18:46] LABS: INR 1.4 (0.9-1.1); PARTIAL THROMBOPLASTIN RATIO 1.3; PROTHROMBIN TIME (PATIENT) 14.6 SECONDS (9.0-12.0)
[2017-04-17 18:49] LABS: Hold Green Tube Used for Chemistry
[2017-04-17 19:00] VITALS: BP 93/46; PULSE 58; O2SAT 92
[2017-04-17 19:34] LABS: ALB/GLOB RATIO 0.7 (0.9-2); BUN/CREATININE RATIO 13.8 (10-20); CALCIUM 7.9 mg/dl (8.5-10.1); CREATININE 1.46 mg/dl (0.60-1.20); POTASSIUM 3.5 mmol/L (3.5-5.1)
--- NOTE | 2017-04-17 19:34 | Pharmacy Progress Note ---
Glycemic Control Intl Consult Date of Service Apr 17, 2017. Scope Glycemic Pharmacist consulted by Dr Frost on 04/17/17 for glycemic control and to write orders per [facility] inpatient glycemic control protocol Objective Weight (Kilograms): 164.300 Accuchecks BSG (last 24hrs): Test 04/17/17 11:35 04/17/17 16:29 04/17/17 17:24 04/17/17 18:36 Random Glucose 130 mg/dl (70-99) 90 mg/dl (70-99) Bedside Glucose 99 mg/dl (70-90) Laboratory Data (last 24hrs) Test 04/17/17 11:35 04/17/17 16:29 04/17/17 18:36 Anion Gap 6.0 mmol/L 5.0 mmol/L BUN/Creatinine Ratio 13.4 14.1 Blood Urea Nitrogen 20 mg/dl 19 mg/dl Creatinine 1.48 mg/dl 1.37 mg/dl Potassium Level 3.8 mmol/L 3.2 mmol/L Sodium Level 138 mmol/L 142 mmol/L White Blood Count 4.31 K/uL Red Blood Count 3.93 M/uL Hemoglobin 12.9 g/dL Hematocrit 38.2 % Mean Corpuscular Volume 97.2 fL Mean Corpuscular Hemoglobin 32.8 pg Mean Corpuscular Hemoglobin Concent 33.8 g/dl Platelet Count 110 K/uL Mean Platelet Volume 8.8 fL Neutrophils (%) (Auto) 87.6 % Lymphocytes (%) (Auto) 7.7 % Monocytes (%) (Auto) 2.6 % Eosinophils (%) (Auto) 1.6 % Basophils (%) (Auto) 0.5 % Neutrophils # (Auto) 3.78 K/uL Lymphocytes # (Auto) 0.33 K/uL Monocytes # (Auto) 0.11 K/uL Eosinophils # (Auto) 0.07 K/uL Basophils # (Auto) 0.02 K/uL Recent Pertinent Medications Outpatient Anti-diabetic Regimen: * Lantus 75 units BID plus Novolog 2-30 units with meals based upon blood sugar * A1c = 10.9 % 05/06/15 Risk Factors for Insulin Resistance: * Infection: pyelonephritis on Primaxin * Pressors: norepinephrine * IVF: heparin @ 20 cc/hr * Recent Surgery: POD 0 for stent placement * Diet: type 2 diabetic diet Assessment & Plan ASSESSMENT: * Ms Galindo is a 51 y/o F with a PMH of bipolar, HAZEL, and sleep apnea who presents with hypotension from pyelonephritis. She required aggressive fluid resuscitation along with vasopressor therapy (currently on norepinephrine). Her blood sugars remain low. * For tonight, the patient remains on a norepinephrine at 0.5 mcg/kg/min. Based upon the trend of blood sugars - will initiate SQ insulin therapy tomorrow morning. Spoke with certified nurses' aide regarding this and he believes she will be weaned off vasopressor therapy by tomorrow morning. Based upon scale that was constructed patient would not receive insulin tonight anyway. * Will start a scale based upon previous admissions where patient required Lantus 50 units SQ BID with caveats in case blood sugar does not respond by tomorrow morning. Weight -based stress of 2 Novolog ordered. HbA1C ordered. PLAN FOR INPATIENT GLYCEMIC CONTROL: * Basal insulin with LANTUS 0-50 units SQ BID starting tomorrow morning * Correctional Insulin with NOVOLOG per scale ACHS or Q6hrs while NPO * Goal Range: Low 140 mg/dL - High 180 mg/dL * Correction Factor: 15 mg/dL/unit * Nutritional / Prandial insulin per carb ratio of 1 unit per 5 grams CHO consumed * Please note that the plan above was derived based on current level of insulin resistance and hospital stress. These recommendations are appropriate for inpatient admission only. Plan of care upon discharge will need to be reassessed to avoid potential outpatient hypo/hyperglycemia. Thank you.
[2017-04-17 20:00] VITALS: BP 105/53; PULSE 50; TEMP 36.8; O2SAT 99
[2017-04-17] MEDS ORDERED: LACTATED RINGER'S 1000ML 1,000 ML IV SCH (20:00)
[2017-04-17 21:00] VITALS: BP 104/55; PULSE 52; O2SAT 94
[2017-04-17] MEDS ORDERED: MAGNESIUM OXIDE 400 MG TAB PO SCH (21:00)
[2017-04-17] MEDS: DULOXETINE HCL 60 MG CAP PO SCH (21:30)
[2017-04-17] MEDS: ESCITALOPRAM OXALATE 20 MG TAB PO SCH (21:30)
[2017-04-17 22:01] VITALS: BP 111/68; PULSE 48; TEMP 36.7; O2SAT 95
[2017-04-17 23:01] VITALS: BP 111/67; PULSE 48; O2SAT 98
--- NOTE | 2017-04-17 23:36 | OPERATIVE REPORT ---
DATE OF OPERATION: 04/17/2017 PROCEDURES PERFORMED: Cystoscopy, left retrograde, and left stent. INDICATIONS: The patient is a 51-year-old female, who presented yesterday with left flank pain. She had previous history of stones, had a CAT scan 2 months ago that showed a stone in the left kidney, had an ultrasound that showed left hydro and calcifications in the mid left abdomen over the area of the ureter consistent with a kidney stone. Apparently, she was told that she did not have a CAT scan because she has had so many CAT scans they wanted to spare the radiation. She was sent home. She did have pyuria and bacteriuria, although it is difficult to imagine because of her morbid obesity that she gave a clean catch. Once home, she became increasingly worse, was nauseous, was unable to eat, had increasing pain, presented to the Emergency Room with a temperature of 39.3. She was also hypotensive. Repeat KUB shows again stone in the area of the ureter, which apparently did not appear to be there previously. Given the fact that she had flank pain and she said this is consistent for previous kidney stones, which she has had in the past and pain is not in her abdomen except for a little bit in the left side of the abdomen, mainly in the left flank. All of this being consistent with a kidney stone. I did not want to wait for a CAT scan, but she received a central line, IV antibiotics and arterial line in the Emergency Room, went to the OR for left stent placement. DESCRIPTION OF THE PROCEDURE: The patient was taken to the OR. She had Venodyne stockings placed. She was given mild sedation, placed in dorsal lithotomy position. A cystoscope was placed. It was difficult to place the cystoscope because of her size. Somebody had to hold her pannus up to find the genitalia to be able to find in the meatus. Once inside the bladder, there was pressure posterior pushing the bladder up which made it difficult to examine the bladder easily. The patient was also moving because she was only on sedation, so I did cannulate the left ureteral orifice and did a retrograde, although there was some air. It did appear that there was ____ hydro above the mid ureter. Then, I placed a dual flex guidewire up into the renal pelvis, removed the 5-Tunisian open-ended catheter and placed a 5 x 24 stent. There did appear to be some purulent fluid that came out at this point. The patient again was moving, so this whole procedure took approximately 5 minutes. At the end of the procedure, she was transferred to the ICU in guarded condition. I spoke with the ICU physician and said that if her pain was relieved, this confirmed that this was likely a stone. However, she had ongoing pain and if it was not improving that I would get a CAT scan just to rule out that there was anything else, but the stone. I attest to the content of the Intraoperative Record and any orders documented therein. Any exception s are noted below.
[2017-04-18] VITALS (25 sets, daily range): BP systolic 96–133; BP diastolic 54–79; PULSE 43–67; TEMP 36.5–37.1; O2SAT 91–98
[2017-04-18] MEDS: IMIPENEM/CILASTATIN IV 500 MG in DEXTROSE 5% 100ML 100 ML IV SCH ×2 (00:03→05:56)
[2017-04-18 00:39] LABS: PARTIAL THROMBOPLASTIN RATIO 1.9
[2017-04-18 05:37] LABS: BASO % 0.2 %; BASO ABS # 0.03 K/uL (0-0.2); COMPLETE YES; EOS % 0.8 %; HEMATOCRIT 34.7 % (37-47); IG% 0.3 %; LYMPH % 20.3 %; LYMPH ABS # 3.34 K/uL (1.2-3.4); MEAN CELL VOLUME 96.7 fL (80-100); MEAN CORPUSCULAR HEMOGLOBIN 32.3 pg (25-34); MEAN CORPUSCULAR HGB CONC 33.4 g/dl (32-36); MEAN PLATELET VOLUME 8.6 fL (7.4-10.4); MONO % 10.8 %; NEUT % 67.6 %; PLATELET COUNT 161 K/uL (130-400); RED BLOOD COUNT 3.59 M/uL (4.2-5.4); WHITE BLOOD COUNT 16.43 K/uL (4.8-10.8)
[2017-04-18 05:48] LABS: ALT/SGPT 23 U/L (12-78); AST/SGOT 33 U/L (15-37); BLOOD UREA NITROGEN 18 mg/dl (7-18); BUN/CREATININE RATIO 16.6 (10-20); CALCIUM 7.8 mg/dl (8.5-10.1); CARBON DIOXIDE 27 mmol/L (21-32); CHLORIDE 106 mmol/L (98-107); CREATININE 1.09 mg/dl (0.60-1.20); GLUCOSE 159 mg/dl (70-99); MAGNESIUM 1.9 mg/dl (1.8-2.4); POTASSIUM 3.5 mmol/L (3.5-5.1); SODIUM 137 mmol/L (136-145)
[2017-04-18 05:53] LABS: ALKALINE PHOSPHATASE 83 U/L (45-117)
[2017-04-18] MEDS: LEVOTHYROXINE 200 MCG TAB PO SCH (05:56)
[2017-04-18] MEDS: OXYCODONE HCL IR 5 MG TAB (IMMEDIATE RELEASE) PO PRN ×3 (06:30→18:32)
[2017-04-18 06:45] LABS: PARTIAL THROMBOPLASTIN RATIO 1.8
[2017-04-18] MEDS ORDERED: HEPARIN IV BOLUS 4,000 UNIT in SYRINGE 0 ML IV ONE (07:30)
[2017-04-18 07:57] LABS: ESTIMATED AVERAGE GLUCOSE 200 mg/dl; HA1C FLAG Normal (Normal)
[2017-04-18] MEDS: NORMOSOL R 1,000 ML IV SCH ×2 (08:32→20:57)
[2017-04-18] MEDS: INSULIN GLARGINE SOLOSTAR 100 UNITS/ML 3 ML PEN SC SCH ×2 (08:34→21:02)
[2017-04-18] MEDS: DULOXETINE HCL 60 MG CAP PO SCH ×2 (09:26→20:57)
[2017-04-18] MEDS: INSULIN ASPART 100 UNITS/ML 3 ML PEN SC SCH ×4 (09:29→20:44)
--- NOTE | 2017-04-18 09:31 | Critical Care Progress Note ---
Critical Care Progress Note Date of Service Apr 18, 2017. ICU Day ICU Day Number: one Attending Dr. Rolando Bautista The patient was admitted with sepsis related to UTI. Also had urology intervention and Left stent placement. The patient initially was on Levophed and now she is off since 5:30 am and she is maintaining the BP in 120s. Also putting out good urine. Somewhat drawsy, but is arousable and is alert and responds appropriately. the patient has chronic back pain, otherwise overall is stable and denies any SOB or chest pain or cough or abdominal pain or N/ Vomitting. Able to tolerate her breakfast. Objective Vital Signs - as noted below Laboratory Data - as noted below Physical Exam: General - The patient is lying in the bed but is arousable and is not in any distress and resting comfortably. Morbidly obese. Eyes - No icterus, gaze conjugate ENT - Mucosa moist, no lesions or candidiasis Neck - Supple, No JVD Lungs - No bronchospasm, rales, or rhonchi. Bilaterally clear lungs anteriorly. Heart - Regular, rate controlled Abdomen - Soft, NT, ND, BS present, Obese abdomen. Extremities - No edema, pedal pulses intact Neuro - A&OX3 Current SOFA Score SOFA Score Response (Comments) Value Platelets (x10) > 150 0 Bilirubin (mg/dL) 1.2 - 1.9 1 [place] Coma Score 13 - 14 1 Level of Hypotension No Hypotension 0 Creatinine (mg/dL) < 1.2 0 Total 2 Assessment & Plan Middle aged female, morbidly obese. was admitted with urosepsis. 1. NEURO: The patient is off all the sedation and remains stable, arousable and at this time no neurological issues. 2. CARDIOLOGY: The patient has H/O Atrial fibrillation, but at this time, she remains in sinus mimi and is also on Xarelto from home. Currently post operative and is on IV heparin as per protocol. HYPOTENSION: Secondary to the sepsis related. The patient has recovered and is off the Levophed since 5:30 am Will remove the A Line and monitor her very closely. 3. PULMONARY: The patient is on 2 L NC o2 and is oxygenating in high 90s. OBSTRUCTIVE SLEEP APNEA: The patient has H/O sleep apnea and had surgery probably UVPP in the past, but no follow up sleep study. Currently she is not using any CPAP at home, but will try BiPAP at night, if she tolerates it well. Also will hold on sedation, if not indicated. TOBACCO USE: was strongly recommended to quit smoking. her lungs are clear. not on any inhalers. 4. ID: The patient is septic related to the urosepsis and is on broad spectrum IV antibiotics, Imipenem/thania 500 mg Q 6 hrs. Cultures are still pending. Will follow closely and adjust the IV antibiotics accordingly. 5. HEMATOLOGY: Leucocytosis, related to current urosepsis. LA not elevated. On bvroad spectrum IV Antibiotics. 6. RENAL: Currently is putting out good urine. BUN/Creatinine has been stable and no issues at this time. 7. ENDOCRINE: The patient is morbidly obese and also has DM. Currently she is on AC with an Insulin coverage and ADA diet. Will continue with that and will try to keep the blood sugar below 150. 8. H/O DVT: She has been on Xarelto. Currently is on IV heparin. As soon as she is cleared by theUrology, will be started back on Xarelto. The patient has rt IJ which is clean and is first day and need for the fluids and medications. Off the Levophed. The patient has RT A line and since maintaining her BP, will remove the A line. The patient has Graham catheter and she is post operatively day 1. Will follow the recommendations from the Urology about that. DVT prophylaxis. On IV heparin. The patient is full code. Out of bed to chair as tolerated, and if tolerated well and maintain her BP, will be transferred out to MICU. D/W the patient and answered all the questions. Spent greater than 35 minutes of critical care time. DR. Skyler [facility]. Consults & Procedures Consultants: UROLOGY: Dr. Aguilera. Procedures: Cystoscopy with Left Stent placement on 04/17/17. RT IJ. CVC with Dr. Aguilar 04/17/17 RT A line with Dr. Aguilar 04/17/17 Data Medications: Current Inpatient Medications Medications (Trade) Dose Ordered Sig/Nelda Route Start Time Stop Time Status Last Admin Dose Admin Norepinephrine Bitartrate 8 mg/ Dextrose 508 ml @ 0 mls/hr Q0M PRN IV 04/17/17 15:23 05/17/17 15:22 04/17/17 18:01 30.4 MLS/HR Pantoprazole Sodium 40 mg/ Syringe 10 ml @ 5 mls/min DAILY@1100 IV 04/18/17 11:00 04/21/17 10:59 Miscellaneous Information (Icu Protocol For Hyperglycemia) 1 ea PRN PRN N/A 04/17/17 15:30 04/19/17 15:29 Insulin Aspart (novoLOG ASPART) SLIDING SCALE If C... ACHS SC 04/18/17 06:45 05/18/17 06:44 Glucose (Glucose 40% Gel) 15-30 GRAMS 15 GRAMS... UD PRN PO 04/17/17 15:30 05/17/17 15:29 Glucose (Glucose Chew Tab) 4-8 Tablets 4 Tabl... UD PRN PO 04/17/17 15:30 05/17/17 15:29 Dextrose (Dextrose 50% 50ML Syringe) 25-50ML OF 50% DW IV FOR... UD PRN IV 04/17/17 15:30 05/17/17 15:29 Glucagon (Glucagon Inj) 1 mg UD PRN SQ 04/17/17 15:30 05/17/17 15:29 Miscellaneous Information (Consult Glycemic Management Pharmacy) 1 ea UD PRN N/A 04/17/17 15:50 05/17/17 15:49 Imipenem/ Cilastatin Sodium (Consult) 1 ea UD PRN N/A 04/17/17 15:52 05/17/17 15:51 Duloxetine HCl (Cymbalta Cap) 60 mg BID PO 04/17/17 21:00 05/17/17 20:59 04/17/17 21:30 60 MG Escitalopram Oxalate (Lexapro Tab) 20 mg QPM PO 04/17/17 21:00 05/17/17 20:59 04/17/17 21:30 20 MG Levothyroxine Sodium (Synthroid Tab) 200 mcg DAILYBB PO 04/18/17 06:00 05/18/17 06:59 04/18/17 05:56 200 MCG Oxycodone HCl (Roxicodone Immediate Rel Tab) 5 mg Q4H PRN PO 04/17/17 16:00 05/01/17 15:59 04/18/17 06:30 5 MG Parenteral Electrolyte Solution 1,000 ml @ 75 mls/hr [id number] IV 04/17/17 17:15 05/17/17 17:14 04/18/17 08:32 75 MLS/HR Hydromorphone HCl (Dilaudid Inj) 0.4 mg Q4H PRN IV 04/17/17 17:30 05/01/17 17:29 Insulin Glargine (Lantus Solostar Pen) SEE PROTOCOL TEXT BID SC 04/18/17 09:00 05/18/17 08:59 04/18/17 08:34 40 UNITS Heparin Sodium/ Dextrose 500 ml @ 22 mls/hr [id number] PRN IV 04/17/17 18:00 05/17/17 17:59 04/17/17 17:56 20 MLS/HR Heparin Sodium (Porcine) (Heparin 10 Unit/ ml 5 ml Flush) 5 ml PRN PRN FLUSH 04/18/17 01:30 05/18/17 01:29 Imipenem/ Cilastatin Sodium 1000 mg/Dextrose 270 ml @ 250 mls/hr Q8H IV 04/18/17 12:00 04/28/17 11:59 Vital Signs: Date Time Temp Pulse Resp B/P (MAP) Pulse Ox O2 Delivery O2 Flow Rate FiO2 04/18/17 08:00 Nasal Cannula 4.0 04/18/17 08:00 36.6 57 16 112/75 (87) 95 Nasal Cannula 4.0 122/67 (85) 04/18/17 05:56 36.5 57 16 105/63 (77) 94 Nasal Cannula 4.0 04/18/17 05:01 47 15 126/66 (86) 91 Oxymask 4.0 04/18/17 04:02 36.6 43 12 120/62 (81) 98 Oxymask 4.0 04/18/17 04:00 Nasal Cannula 4.0 04/18/17 03:01 46 12 112/62 (79) 96 Oxymask 4.0 04/18/17 02:01 36.6 45 7 109/70 (83) 98 Oxymask 4.0 04/18/17 01:00 44 12 119/60 (79) 98 Oxymask 4.0 04/18/17 00:01 36.7 46 11 112/69 (83) 97 Oxymask 4.0 04/17/17 23:59 Nasal Cannula 4.0 04/17/17 23:01 48 13 111/67 (82) 98 Oxymask 4.0 04/17/17 22:01 36.7 48 14 111/68 (82) 95 Oxymask 4.0 04/17/17 21:00 52 13 104/55 (71) 94 Nasal Cannula 4.0 04/17/17 20:00 36.8 50 18 105/53 (70) 99 Nasal Cannula 4.0 04/17/17 20:00 Nasal Cannula 4.0 04/17/17 19:00 58 15 93/46 (62) 92 Nasal Cannula 4.0 04/17/17 17:40 36.6 52 16 112/69 (75) 100 Non-Rebreather 15 106/51 (66) 04/17/17 17:30 54 16 103/63 (80) 100 Non-Rebreather 15 112/55 (70) 04/17/17 17:21 36.4 56 12 104/62 (75) 100 Non-Rebreather 15 04/17/17 17:15 36.4 54 16 110/65 100 Non-Rebreather 15.0 113/55 04/17/17 16:30 62 20 87/61 98 Non-Rebreather 10.0 04/17/17 16:30 67 20 87/51 94 Nasal Cannula 2.0 04/17/17 16:22 58 20 92/50 93 Nasal Cannula 2.0 04/17/17 16:19 60 20 92/53 97 Nasal Cannula 4.0 04/17/17 16:15 69 20 79/60 97 Nasal Cannula 4.0 04/17/17 16:00 62 22 109/67 97 Nasal Cannula 4.0 04/17/17 15:45 64 18 68/44 98 Nasal Cannula 04/17/17 15:39 69 20 81/43 98 Nasal Cannula 4.0 04/17/17 14:50 71 18 81/51 93 Nasal Cannula 4.0 04/17/17 13:38 85 16 107/57 96 Nasal Cannula 4.0 04/17/17 13:04 81 18 86/53 95 Room Air 4.0 04/17/17 11:25 94 Nasal Cannula 4.0 04/17/17 11:11 39.3 97 18 131/69 Nasal Cannula 4.0 04/17/17 11:11 87 Room Air Laboratory Results: Last 24 Hours Test 04/17/17 11:35 04/17/17 12:40 04/17/17 16:29 04/17/17 17:24 White Blood Count 4.31 K/uL Red Blood Count 3.93 M/uL Hemoglobin 12.9 g/dL Hematocrit 38.2 % Mean Corpuscular Volume 97.2 fL Mean Corpuscular Hemoglobin 32.8 pg Mean Corpuscular Hemoglobin Concent 33.8 g/dl Platelet Count 110 K/uL Mean Platelet Volume 8.8 fL Neutrophils (%) (Auto) 87.6 % Lymphocytes (%) (Auto) 7.7 % Monocytes (%) (Auto) 2.6 % Eosinophils (%) (Auto) 1.6 % Basophils (%) (Auto) 0.5 % Neutrophils # (Auto) 3.78 K/uL Lymphocytes # (Auto) 0.33 K/uL Monocytes # (Auto) 0.11 K/uL Eosinophils # (Auto) 0.07 K/uL Basophils # (Auto) 0.02 K/uL RDW Standard Deviation 63.3 fL RDW Coefficient of Variation 18.0 % Immature Granulocyte % (Auto) 0.0 % Immature Granulocyte # (Auto) 0.00 K/uL Sodium Level 138 mmol/L 142 mmol/L Potassium Level 3.8 mmol/L 3.2 mmol/L Chloride Level 105 mmol/L 110 mmol/L Carbon Dioxide Level 27 mmol/L 27 mmol/L Anion Gap 6.0 mmol/L 5.0 mmol/L Blood Urea Nitrogen 20 mg/dl 19 mg/dl Creatinine 1.48 mg/dl 1.37 mg/dl Est Creatinine Clear Calc Drug Dose 66.8 ml/min 72.1 ml/min Estimated GFR () 46.4 50.9 Estimated GFR (Non- 40.0 43.9 BUN/Creatinine Ratio 13.4 14.1 Random Glucose 130 mg/dl 90 mg/dl Calcium Level 8.5 mg/dl 7.4 mg/dl Total Bilirubin 0.9 mg/dl 0.9 mg/dl Aspartate Amino Transf (AST/SGOT) 37 U/L 27 U/L Alanine Aminotransferase (ALT/SGPT) 21 U/L 17 U/L Alkaline Phosphatase 101 U/L 69 U/L Total Protein 6.9 gm/dl 5.0 gm/dl Albumin 2.7 gm/dl 2.0 gm/dl Globulin 4.2 gm/dl Albumin/Globulin Ratio 0.6 Chemistry Specimen Hemolysis Bedside Lactic Acid Venous 1.85 mmol/L Arterial Blood pH 7.41 Arterial Blood Partial Pressure CO2 44 mmHg Arterial Blood Partial Pressure O2 143 mm/Hg Arterial Blood HCO3 27 mmol/L Arterial Blood Oxygen Saturation 98.9 % Arterial Blood Base Excess 2.0 mEq/L Arterial Blood Gas Delivery 15 L Kermit Test POS Lactic Acid Level 1.4 mmol/L Phosphorus Level 2.0 mg/dl Magnesium Level 1.5 mg/dl Direct Bilirubin 0.3 mg/dl Thyroid Stimulating Hormone (TSH) 31.600 uIu/ml Bedside Glucose 99 mg/dl Test 04/17/17 17:40 04/17/17 18:36 04/18/17 00:11 04/18/17 00:14 Prothrombin Time 14.6 SECONDS Prothromb Time International Ratio 1.4 Activated Partial Thromboplast Time 34.0 SECONDS 48.1 SECONDS Partial Thromboplastin Ratio 1.3 1.9 Sodium Level 140 mmol/L Potassium Level 3.5 mmol/L Chloride Level 107 mmol/L Carbon Dioxide Level 30 mmol/L Anion Gap 3.0 mmol/L Blood Urea Nitrogen 20 mg/dl Creatinine 1.46 mg/dl Est Creatinine Clear Calc Drug Dose 68.3 ml/min Estimated GFR () 47.1 Estimated GFR (Non- 40.7 BUN/Creatinine Ratio 13.8 Random Glucose 113 mg/dl Calcium Level 7.9 mg/dl Total Bilirubin 1.1 mg/dl Aspartate Amino Transf (AST/SGOT) 32 U/L Alanine Aminotransferase (ALT/SGPT) 20 U/L Alkaline Phosphatase 78 U/L Total Protein 5.8 gm/dl Albumin 2.4 gm/dl Globulin 3.4 gm/dl Albumin/Globulin Ratio 0.7 Total Creatine Kinase 151 U/L Troponin I < 0.015 ng/ml Bedside Glucose (other) 170 mg/dl Test 04/18/17 05:16 04/18/17 05:25 04/18/17 06:15 White Blood Count 16.43 K/uL Red Blood Count 3.59 M/uL Hemoglobin 11.6 g/dL Hematocrit 34.7 % Mean Corpuscular Volume 96.7 fL Mean Corpuscular Hemoglobin 32.3 pg Mean Corpuscular Hemoglobin Concent 33.4 g/dl Platelet Count 161 K/uL Mean Platelet Volume 8.6 fL Neutrophils (%) (Auto) 67.6 % Lymphocytes (%) (Auto) 20.3 % Monocytes (%) (Auto) 10.8 % Eosinophils (%) (Auto) 0.8 % Basophils (%) (Auto) 0.2 % Neutrophils # (Auto) 11.11 K/uL Lymphocytes # (Auto) 3.34 K/uL Monocytes # (Auto) 1.77 K/uL Eosinophils # (Auto) 0.13 K/uL Basophils # (Auto) 0.03 K/uL RDW Standard Deviation 65.2 fL RDW Coefficient of Variation 18.3 % Immature Granulocyte % (Auto) 0.3 % Immature Granulocyte # (Auto) 0.05 K/uL Sodium Level 137 mmol/L Potassium Level 3.5 mmol/L Chloride Level 106 mmol/L Carbon Dioxide Level 27 mmol/L Anion Gap 4.0 mmol/L Blood Urea Nitrogen 18 mg/dl Creatinine 1.09 mg/dl Est Creatinine Clear Calc Drug Dose 91.5 ml/min Estimated GFR () 67.1 Estimated GFR (Non- 57.9 BUN/Creatinine Ratio 16.6 Random Glucose 159 mg/dl Estimated Average Glucose 200 mg/dl Hemoglobin A1c 8.6 % Lactic Acid Level 0.9 mmol/L Calcium Level 7.8 mg/dl Magnesium Level 1.9 mg/dl Total Bilirubin 1.2 mg/dl Direct Bilirubin 0.4 mg/dl Aspartate Amino Transf (AST/SGOT) 33 U/L Alanine Aminotransferase (ALT/SGPT) 23 U/L Alkaline Phosphatase 83 U/L Total Creatine Kinase 130 U/L Troponin I < 0.015 ng/ml Total Protein 6.1 gm/dl Albumin 2.3 gm/dl Procalcitonin 5.82 ng/ml Bedside Glucose (other) 159 mg/dl Activated Partial Thromboplast Time 45.9 SECONDS Partial Thromboplastin Ratio 1.8
--- NOTE | 2017-04-18 09:54 | Pharmacy Progress Note ---
Pharmacy Glycemic Short Note 2 Date of Service Apr 18, 2017. OUTPATIENT ANTIDIABETIC REGIMEN: * Lantus 75 units BID plus Novolog 2-30 units with meals based upon blood sugar * A1c = 10.9 % 05/06/15 * A1C = 8.6% on 04/18/17 ASSESSMENT: * 51yo T2DM female known to pharmacy from previous admissions/glycemic consults * Patient takes large doses of basal insulin as an outpatient, but typically requires about half of this for admission. * Will continue a basal insulin dose of ~75 units/day {uses 75 units BID as outpatient}. But, will split BID to allow for flexible dose adjustments with changing patient status while critically ill. * BSGs over the past 24hrs: * 04/17: 130, 90, 99, 170 * 04/18: 159 * Expect BSGs to start to rise with increased PO intake * Levophed stopped this morning which should lower risk for hyperglycemia PLAN FOR INPATIENT GLYCEMIC CONTROL: SQ basal bolus insulin regimen based on estimated total daily dose of ~ 150 units/day * Basal insulin * Lantus 25-40-50 units SQ BID * 25 units units if BSG < 120 * 40 units if BSG 120-180 * 50 units if BSG > 180 * Bolus insulin * NovoLog per scale ACHS or Q6hrs while NPO * Goal Range: Low 120 mg/dL - High 160 mg/dL * Correction Factor: 10 mg/dL/unit * Nutritional / Prandial insulin per carb ratio of 1 unit per 4 grams CHO consumed
--- NOTE | 2017-04-18 10:01 | ECHOCARDIOGRAM REPORT ---
*NOTICE TO RECEIVING LIBERTARIAN AGENCY This information is strictly Confidential and protected under [place] law. [place] law prohibits you from making any further disclosure of this information unless further disclosure is expressly permitted by the written consent of the person to whom it pertains or is authorized by law. A general authorization for the release of medical or other information is not sufficient for this purpose. Hospital accepts no responsibility if the information is made available to any other person, INCLUDING THE PATIENT. Interpretation Summary * Name: EMANUEL MOSS Study Date: 04/18/2017 07:59 AM BP: 120/62 mmHg * Patient Location: E107 HR: 57 * : 1965 (M/d/yyyy) Gender: Female Height: 63 in * Age: 51 yrs Ethnicity: [place] Weight: 357 lb * Ordering Physician: BLUE GARRETT DO * Referring Physician: Self, Referred * Performed By: Agustina Real RCS * * Reason For Study: A-FIB * BSA: 2.5 m2 * -- Conclusions -- * This study is essentially non diagnostic. * Only the parasternal images are of any use. * LV function looks normal * Wall motion of the LV can not be assessed * Limited views of the RV appear to function normally * The is no Aortic or mitral stenosis Procedure Details * Limited views were obtained. * There were technical limitations due to patient'sbody habitus * A contrast injection of Definity was performed to improve assessment of LV function. * Contrast was injected into an intravenous site in the central line. * One vial of Definity ultrasound contrast was diluted in normal saline to a total volume of 10 ml. A total of '2' ml of solution was administered during imaging. * Lot # [id number] of Definity utilized for procedure. * Expiration date 1 JUN 13. * The attending nurse who injected the contrast agent was JOHN HOGAN, RN. Doppler Measurements and Calculations MV E max gianfranco 110.1 cm/sec MV A max gianfranco 94.2 cm/sec MV E/A 1.2 MV P1/2t max gianfranco 101.2 cm/sec MV P1/2t 107.0 msec MVA(P1/2t) 2.1 cm\S\2 MV dec slope 277.1 cm/sec\S\2 MV dec time 0.39 sec TR max gianfranco 271.9 cm/sec
[2017-04-18] MEDS: D5W IV SCH ×2 (11:31→20:57)
[2017-04-18] MEDS: CILASTATIN IV SCH ×2 (11:31→20:57)
[2017-04-18] MEDS: PANTOprazole INJ 40 MG in SYRINGE 0 ML IV SCH (11:31)
[2017-04-18] MEDS: IMIPENEM IV SCH ×2 (11:31→20:57)
--- NOTE | 2017-04-18 11:39 | Progress Note ---
Subjective Date of Service: Apr 18, 2017. Subjective Pt evaluation today including: conversation w/ patient, lab review, conversation w/ technical solutions consultant pt feels better flank pain gone blood in park off pressors Problem List Medical Problems: (1) Abdominal contusion Status: Acute (2) Abdominal wall pain Status: Acute (3) Acute abdominal pain Status: Acute (4) Acute exacerbation of chronic low back pain Status: Acute (5) Acute flank pain Status: Acute (6) Acute generalized abdominal pain Status: Acute (7) Anxiety Status: Acute (8) Asthma Status: Chronic (9) Back pain Status: Acute (10) Back pain Status: Acute (11) Back pain Status: Acute (12) Back pain Status: Acute (13) Back pain Status: Acute (14) Benign hypertension Status: Chronic (15) Bipolar disorder Status: Chronic (16) Cauda equina compression Status: Acute (17) Chronic pain Status: Chronic (18) Closed head injury Status: Acute (19) Contusion of left foot Status: Acute (20) Contusion of left knee Status: Acute (21) Contusion of multiple sites Status: Acute (22) Degenerative joint disease of spine Status: Chronic (23) Depression Status: Chronic (24) Diabetes mellitus type 2 Status: Chronic (25) Diabetes mellitus with hyperglycemia Status: Acute (26) Diabetes mellitus with hyperglycemia Status: Acute (27) Drug-seeking behavior Status: Chronic (28) Gastroesophageal reflux disease Status: Chronic (29) Headache Status: Acute (30) Headache Status: Acute (31) Hematuria Status: Acute (32) Hernia of abdominal wall Status: Chronic (33) Hyperammonemia Status: Acute (34) Hypothyroidism Status: Acute (35) Hypothyroidism Status: Chronic (36) Insomnia Status: Chronic (37) Insulin dependent type 2 diabetes mellitus, uncontrolled Status: Acute (38) Kidney stone on left side Status: Acute (39) Left flank pain Status: Acute (40) MCFP current use of 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 Status: Chronic (41) LUMBAGO Status: Chronic (42) Migraine Status: Acute (43) Migraine Status: Chronic (44) Morbid obesity Status: Chronic (45) Morbid obesity Status: Chronic (46) Morbid obesity with BMI of 60.0-69.9, adult Status: Acute (47) Morbid obesity with BMI of 60.0-69.9, adult Status: Chronic (48) Noncompliance with medication regimen Status: Acute (49) Obstructive sleep apnea Status: Chronic (50) Poorly controlled diabetes mellitus Status: Acute (51) Pyelonephritis Status: Acute (52) Right flank pain Status: Acute (53) Right-sided chest wall pain Status: Acute (54) Sepsis Status: Acute (55) Severe sepsis Status: Acute (56) Spinal stenosis Status: Chronic (57) Suprapubic pain Status: Acute (58) Supraumbilical hernia Status: Chronic (59) Syncope Status: Acute (60) Urinary tract infection Status: Acute (61) Urinary tract obstruction due to kidney stone Status: Acute (62) Vaginal candidiasis Status: Acute Surgical Problems: (1) H/O hernia repair Status: Chronic Objective Vital Signs Date Time Temp Pulse Resp B/P (MAP) Pulse Ox O2 Delivery O2 Flow Rate FiO2 04/18/17 11:10 36.6 59 18 104/64 (77) 95 Nasal Cannula 3.0 04/18/17 11:07 Nasal Cannula 3.0 04/18/17 09:32 62 15 96/61 (76) 95 04/18/17 09:30 36.6 67 16 105/69 (81) 95 Nasal Cannula 4.0 04/18/17 09:30 63 20 94 04/18/17 09:23 105/58 (75) 04/18/17 09:02 52 0 112/63 (77) 97 115/63 04/18/17 09:00 54 0 (80) 97 118/64 04/18/17 08:31 55 0 126/59 (77) 95 118/64 04/18/17 08:30 54 0 (78) 95 115/63 04/18/17 08:01 59 0 115/67 (85) 96 121/69 04/18/17 08:00 Nasal Cannula 4.0 04/18/17 08:00 58 0 (78) 96 118/62 04/18/17 08:00 36.6 57 16 112/75 (87) 95 Nasal Cannula 4.0 122/67 (85) 04/18/17 07:31 56 0 105/69 (85) 96 128/67 04/18/17 07:30 56 0 (84) 96 127/67 04/18/17 07:01 59 4 112/75 (81) 91 108/54 04/18/17 07:00 60 8 (73) 92 115/56 04/18/17 05:56 36.5 57 16 105/63 (77) 94 Nasal Cannula 4.0 04/18/17 05:01 47 15 126/66 (86) 91 Oxymask 4.0 04/18/17 04:02 36.6 43 12 120/62 (81) 98 Oxymask 4.0 04/18/17 04:00 Nasal Cannula 4.0 04/18/17 03:01 46 12 112/62 (79) 96 Oxymask 4.0 04/18/17 02:01 36.6 45 7 109/70 (83) 98 Oxymask 4.0 04/18/17 01:00 44 12 119/60 (79) 98 Oxymask 4.0 04/18/17 00:01 36.7 46 11 112/69 (83) 97 Oxymask 4.0 04/17/17 23:59 Nasal Cannula 4.0 04/17/17 23:01 48 13 111/67 (82) 98 Oxymask 4.0 04/17/17 22:01 36.7 48 14 111/68 (82) 95 Oxymask 4.0 04/17/17 21:00 52 13 104/55 (71) 94 Nasal Cannula 4.0 04/17/17 20:00 36.8 50 18 105/53 (70) 99 Nasal Cannula 4.0 04/17/17 20:00 Nasal Cannula 4.0 04/17/17 19:00 58 15 93/46 (62) 92 Nasal Cannula 4.0 04/17/17 17:40 36.6 52 16 112/69 (75) 100 Non-Rebreather 15 106/51 (66) 04/17/17 17:30 54 16 103/63 (80) 100 Non-Rebreather 15 112/55 (70) 04/17/17 17:21 36.4 56 12 104/62 (75) 100 Non-Rebreather 15 04/17/17 17:15 36.4 54 16 110/65 100 Non-Rebreather 15.0 113/55 04/17/17 16:30 62 20 87/61 98 Non-Rebreather 10.0 04/17/17 16:30 67 20 87/51 94 Nasal Cannula 2.0 04/17/17 16:22 58 20 92/50 93 Nasal Cannula 2.0 12/24/17 16:19 60 20 92/53 97 Nasal Cannula 4.0 04/17/17 16:15 69 20 79/60 97 Nasal Cannula 4.0 04/17/17 16:00 62 22 109/67 97 Nasal Cannula 4.0 04/17/17 15:45 64 18 68/44 98 Nasal Cannula 04/17/17 15:39 69 20 81/43 98 Nasal Cannula 4.0 04/17/17 14:50 71 18 81/51 93 Nasal Cannula 4.0 04/17/17 13:38 85 16 107/57 96 Nasal Cannula 4.0 04/17/17 13:04 81 18 86/53 95 Room Air 4.0 Laboratory Results Last 24 Hours Test 04/17/17 12:40 04/17/17 16:29 04/17/17 17:24 04/17/17 17:40 Bedside Lactic Acid Venous 1.85 mmol/L Arterial Blood pH 7.41 Arterial Blood Partial Pressure CO2 44 mmHg Arterial Blood Partial Pressure O2 143 mm/Hg Arterial Blood HCO3 27 mmol/L Arterial Blood Oxygen Saturation 98.9 % Arterial Blood Base Excess 2.0 mEq/L Arterial Blood Gas Delivery 15 L Kermit Test POS Sodium Level 142 mmol/L Potassium Level 3.2 mmol/L Chloride Level 110 mmol/L Carbon Dioxide Level 27 mmol/L Anion Gap 5.0 mmol/L Blood Urea Nitrogen 19 mg/dl Creatinine 1.37 mg/dl Est Creatinine Clear Calc Drug Dose 72.1 ml/min Estimated GFR () 50.9 Estimated GFR (Non- 43.9 BUN/Creatinine Ratio 14.1 Random Glucose 90 mg/dl Lactic Acid Level 1.4 mmol/L Calcium Level 7.4 mg/dl Phosphorus Level 2.0 mg/dl Magnesium Level 1.5 mg/dl Total Bilirubin 0.9 mg/dl Direct Bilirubin 0.3 mg/dl Aspartate Amino Transf (AST/SGOT) 27 U/L Alanine Aminotransferase (ALT/SGPT) 17 U/L Alkaline Phosphatase 69 U/L Total Protein 5.0 gm/dl Albumin 2.0 gm/dl Thyroid Stimulating Hormone (TSH) 31.600 uIu/ml Bedside Glucose 99 mg/dl Prothrombin Time 14.6 SECONDS Prothromb Time International Ratio 1.4 Activated Partial Thromboplast Time 34.0 SECONDS Partial Thromboplastin Ratio 1.3 Test 04/17/17 18:36 04/18/17 00:11 04/18/17 00:14 04/18/17 05:16 Sodium Level 140 mmol/L 137 mmol/L Potassium Level 3.5 mmol/L 3.5 mmol/L Chloride Level 107 mmol/L 106 mmol/L Carbon Dioxide Level 30 mmol/L 27 mmol/L Anion Gap 3.0 mmol/L 4.0 mmol/L Blood Urea Nitrogen 20 mg/dl 18 mg/dl Creatinine 1.46 mg/dl 1.09 mg/dl Est Creatinine Clear Calc Drug Dose 68.3 ml/min 91.5 ml/min Estimated GFR () 47.1 67.1 Estimated GFR (Non- 40.7 57.9 BUN/Creatinine Ratio 13.8 16.6 Random Glucose 113 mg/dl 159 mg/dl Calcium Level 7.9 mg/dl 7.8 mg/dl Total Bilirubin 1.1 mg/dl 1.2 mg/dl Aspartate Amino Transf (AST/SGOT) 32 U/L 33 U/L Alanine Aminotransferase (ALT/SGPT) 20 U/L 23 U/L Alkaline Phosphatase 78 U/L 83 U/L Total Protein 5.8 gm/dl 6.1 gm/dl Albumin 2.4 gm/dl 2.3 gm/dl Globulin 3.4 gm/dl Albumin/Globulin Ratio 0.7 Activated Partial Thromboplast Time 48.1 SECONDS Partial Thromboplastin Ratio 1.9 Total Creatine Kinase 151 U/L 130 U/L Troponin I < 0.015 ng/ml < 0.015 ng/ml Bedside Glucose (other) 170 mg/dl White Blood Count 16.43 K/uL Red Blood Count 3.59 M/uL Hemoglobin 11.6 g/dL Hematocrit 34.7 % Mean Corpuscular Volume 96.7 fL Mean Corpuscular Hemoglobin 32.3 pg Mean Corpuscular Hemoglobin Concent 33.4 g/dl Platelet Count 161 K/uL Mean Platelet Volume 8.6 fL Neutrophils (%) (Auto) 67.6 % Lymphocytes (%) (Auto) 20.3 % Monocytes (%) (Auto) 10.8 % Eosinophils (%) (Auto) 0.8 % Basophils (%) (Auto) 0.2 % Neutrophils # (Auto) 11.11 K/uL Lymphocytes # (Auto) 3.34 K/uL Monocytes # (Auto) 1.77 K/uL Eosinophils # (Auto) 0.13 K/uL Basophils # (Auto) 0.03 K/uL RDW Standard Deviation 65.2 fL RDW Coefficient of Variation 18.3 % Immature Granulocyte % (Auto) 0.3 % Immature Granulocyte # (Auto) 0.05 K/uL Estimated Average Glucose 200 mg/dl Hemoglobin A1c 8.6 % Lactic Acid Level 0.9 mmol/L Magnesium Level 1.9 mg/dl Direct Bilirubin 0.4 mg/dl Procalcitonin 5.82 ng/ml Test 04/18/17 05:25 04/18/17 06:15 04/18/17 10:58 Bedside Glucose (other) 159 mg/dl Activated Partial Thromboplast Time 45.9 SECONDS Partial Thromboplastin Ratio 1.8 Bedside Glucose 151 mg/dl Assessment and Plan pt ok to go to floor will need ureteroscopy after recovery
--- NOTE | 2017-04-18 11:48 | DIAGNOSTIC IMAGING REPORT ---
[facility] CLINICAL HISTORY: 51 years-old Female presenting with Sepsis secondary to obstructive process/uti. TECHNIQUE: Single supine view of the abdomen was obtained. COMPARISON: 04/17/2017. FINDINGS: Image quality is limited by portable technique and patient body habitus. Cholecystectomy clips noted. Nonobstructive bowel gas pattern. No gross pneumoperitoneum. Allowing for degraded image quality, there has been interval placement of a left ureteral stent, which appears appropriately positioned. Image quality is not sufficient for localization of a calculus. Degenerative changes of the spine. Lungs and pleural spaces clear. IMPRESSION: 1. Interval placement of a left ureteral stent. Electronically signed by: Jann Cedillo M.D. 04/18/2017 11:47 AM Dictated Date/Time: 04/18/2017 11:45 AM
--- NOTE | 2017-04-18 12:06 | Hospitalist Progress Note ---
Hospitalist Progress Note Date of Service Apr 18, 2017. (Trina Rueda ., GAYATRI) Subjective Pt evaluation today including: conversation w/ patient, physical exam, lab review, review of studies, review of inpatient medication list Voiding: park catheter in place (draining dark red urine ) Patient sitting in bedside chair. Eating and drinking OK- tolerated breakfast well. +chronic back pain. Currently well controlled. +Park in place. Patient denies any fever, chills, sweats, lightheadedness, dizziness, vision changes, CP, palpitations, edema, SOB, wheezing, cough, abdominal pain, nausea, vomiting, diarrhea, urinary symptoms, melena, numbness/tingling, weakness, anxiety/depression, active bleeding, or new skin discoloration/changes. (Trina Rueda, HOANGC) Medications Current Inpatient Medications Medications (Trade) Dose Ordered Sig/Nelda Route Start Time Stop Time Status Last Admin Dose Admin Norepinephrine Bitartrate 8 mg/ Dextrose 508 ml @ 0 mls/hr Q0M PRN IV 04/17/17 15:23 05/17/17 15:22 04/17/17 18:01 30.4 MLS/HR Pantoprazole Sodium 40 mg/ Syringe 10 ml @ 5 mls/min DAILY@1100 IV 04/18/17 11:00 04/21/17 10:59 04/18/17 11:31 5 MLS/MIN Miscellaneous Information (Icu Protocol For Hyperglycemia) 1 ea PRN PRN N/A 04/17/17 15:30 04/19/17 15:29 Insulin Aspart (novoLOG ASPART) SLIDING SCALE If C... ACHS SC 04/18/17 06:45 05/18/17 06:44 04/18/17 09:29 10 UNITS Glucose (Glucose 40% Gel) 15-30 GRAMS 15 GRAMS... UD PRN PO 04/17/17 15:30 05/17/17 15:29 Glucose (Glucose Chew Tab) 4-8 Tablets 4 Tabl... UD PRN PO 04/17/17 15:30 05/17/17 15:29 Dextrose (Dextrose 50% 50ML Syringe) 25-50ML OF 50% DW IV FOR... UD PRN IV 04/17/17 15:30 05/17/17 15:29 Glucagon (Glucagon Inj) 1 mg UD PRN SQ 04/17/17 15:30 05/17/17 15:29 Miscellaneous Information (Consult Glycemic Management Pharmacy) 1 ea UD PRN N/A 04/17/17 15:50 05/17/17 15:49 Imipenem/ Cilastatin Sodium (Consult) 1 ea UD PRN N/A 04/17/17 15:52 05/17/17 15:51 Duloxetine HCl (Cymbalta Cap) 60 mg BID PO 04/17/17 21:00 05/17/17 20:59 04/18/17 09:26 60 MG Escitalopram Oxalate (Lexapro Tab) 20 mg QPM PO 04/17/17 21:00 05/17/17 20:59 04/17/17 21:30 20 MG Levothyroxine Sodium (Synthroid Tab) 200 mcg DAILYBB PO 04/18/17 06:00 05/18/17 06:59 04/18/17 05:56 200 MCG Oxycodone HCl (Roxicodone Immediate Rel Tab) 5 mg Q4H PRN PO 04/17/17 16:00 05/01/17 15:59 04/18/17 06:30 5 MG Parenteral Electrolyte Solution 1,000 ml @ 75 mls/hr [id number] IV 04/17/17 17:15 05/17/17 17:14 04/18/17 08:32 75 MLS/HR Hydromorphone HCl (Dilaudid Inj) 0.4 mg Q4H PRN IV 04/17/17 17:30 05/01/17 17:29 Insulin Glargine (Lantus Solostar Pen) SEE PROTOCOL TEXT BID SC 04/18/17 09:00 05/18/17 08:59 04/18/17 08:34 40 UNITS Heparin Sodium/ Dextrose 500 ml @ 22 mls/hr [id number] PRN IV 04/17/17 18:00 05/17/17 17:59 04/17/17 17:56 20 MLS/HR Heparin Sodium (Porcine) (Heparin 10 Unit/ ml 5 ml Flush) 5 ml PRN PRN FLUSH 04/18/17 01:30 05/18/17 01:29 Imipenem/ Cilastatin Sodium 1000 mg/Dextrose 270 ml @ 250 mls/hr Q8H IV 04/18/17 12:00 04/28/17 11:59 04/18/17 11:31 250 MLS/HR (Trina Rueda, GAYATRI) Objective Vital Signs Date Time Temp Pulse Resp B/P (MAP) Pulse Ox O2 Delivery O2 Flow Rate FiO2 04/18/17 11:10 36.6 59 18 104/64 (77) 95 Nasal Cannula 3.0 04/18/17 11:07 Nasal Cannula 3.0 04/18/17 09:32 62 15 96/61 (76) 95 04/18/17 09:30 36.6 67 16 105/69 (81) 95 Nasal Cannula 4.0 04/18/17 09:30 63 20 94 04/18/17 09:23 105/58 (75) 04/18/17 09:02 52 0 112/63 (77) 97 115/63 04/18/17 09:00 54 0 (80) 97 118/64 04/18/17 08:31 55 0 126/59 (77) 95 118/64 04/18/17 08:30 54 0 (78) 95 115/63 04/18/17 08:01 59 0 115/67 (85) 96 121/69 04/18/17 08:00 Nasal Cannula 4.0 04/18/17 08:00 58 0 (78) 96 118/62 04/18/17 08:00 36.6 57 16 112/75 (87) 95 Nasal Cannula 4.0 122/67 (85) 04/18/17 07:31 56 0 105/69 (85) 96 128/67 04/18/17 07:30 56 0 (84) 96 127/67 04/18/17 07:01 59 4 112/75 (81) 91 108/54 04/18/17 07:00 60 8 (73) 92 115/56 04/18/17 05:56 36.5 57 16 105/63 (77) 94 Nasal Cannula 4.0 04/18/17 05:01 47 15 126/66 (86) 91 Oxymask 4.0 04/18/17 04:02 36.6 43 12 120/62 (81) 98 Oxymask 4.0 04/18/17 04:00 Nasal Cannula 4.0 04/18/17 03:01 46 12 112/62 (79) 96 Oxymask 4.0 04/18/17 02:01 36.6 45 7 109/70 (83) 98 Oxymask 4.0 04/18/17 01:00 44 12 119/60 (79) 98 Oxymask 4.0 04/18/17 00:01 36.7 46 11 112/69 (83) 97 Oxymask 4.0 04/17/17 23:59 Nasal Cannula 4.0 04/17/17 23:01 48 13 111/67 (82) 98 Oxymask 4.0 04/17/17 22:01 36.7 48 14 111/68 (82) 95 Oxymask 4.0 04/17/17 21:00 52 13 104/55 (71) 94 Nasal Cannula 4.0 04/17/17 20:00 36.8 50 18 105/53 (70) 99 Nasal Cannula 4.0 04/17/17 20:00 Nasal Cannula 4.0 04/17/17 19:00 58 15 93/46 (62) 92 Nasal Cannula 4.0 04/17/17 17:40 36.6 52 16 112/69 (75) 100 Non-Rebreather 15 106/51 (66) 04/17/17 17:30 54 16 103/63 (80) 100 Non-Rebreather 15 112/55 (70) 04/17/17 17:21 36.4 56 12 104/62 (75) 100 Non-Rebreather 15 04/17/17 17:15 36.4 54 16 110/65 100 Non-Rebreather 15.0 113/55 04/17/17 16:30 62 20 87/61 98 Non-Rebreather 10.0 04/17/17 16:30 67 20 87/51 94 Nasal Cannula 2.0 04/17/17 16:22 58 20 92/50 93 Nasal Cannula 2.0 04/17/17 16:19 60 20 92/53 97 Nasal Cannula 4.0 04/17/17 16:15 69 20 79/60 97 Nasal Cannula 4.0 04/17/17 16:00 62 22 109/67 97 Nasal Cannula 4.0 04/17/17 15:45 64 18 68/44 98 Nasal Cannula 04/17/17 15:39 69 20 81/43 98 Nasal Cannula 4.0 04/17/17 14:50 71 18 81/51 93 Nasal Cannula 4.0 04/17/17 13:38 85 16 107/57 96 Nasal Cannula 4.0 04/17/17 13:04 81 18 86/53 95 Room Air 4.0 (Trina Rueda ., PA-C) Physical Exam General Appearance: no apparent distress, + obese, + pertinent finding (O2 NC ) Eyes: normal inspection, PERRL ENT: hearing grossly normal Neck: supple Respiratory/Chest: lungs clear, no respiratory distress, no accessory muscle use Cardiovascular: regular rate, rhythm Abdomen: normal bowel sounds, non tender, soft Extremities: no pedal edema, no calf tenderness Neurologic/Psychiatric: alert, oriented x 3, + depressed affect Skin: normal color, warm/dry, no rash (Trina Rueda ., PA-C) Laboratory Results Last 24 Hours Test 04/17/17 11:35 04/17/17 12:40 04/17/17 16:29 04/17/17 17:24 White Blood Count 4.31 K/uL Red Blood Count 3.93 M/uL Hemoglobin 12.9 g/dL Hematocrit 38.2 % Mean Corpuscular Volume 97.2 fL Mean Corpuscular Hemoglobin 32.8 pg Mean Corpuscular Hemoglobin Concent 33.8 g/dl Platelet Count 110 K/uL Mean Platelet Volume 8.8 fL Neutrophils (%) (Auto) 87.6 % Lymphocytes (%) (Auto) 7.7 % Monocytes (%) (Auto) 2.6 % Eosinophils (%) (Auto) 1.6 % Basophils (%) (Auto) 0.5 % Neutrophils # (Auto) 3.78 K/uL Lymphocytes # (Auto) 0.33 K/uL Monocytes # (Auto) 0.11 K/uL Eosinophils # (Auto) 0.07 K/uL Basophils # (Auto) 0.02 K/uL RDW Standard Deviation 63.3 fL RDW Coefficient of Variation 18.0 % Immature Granulocyte % (Auto) 0.0 % Immature Granulocyte # (Auto) 0.00 K/uL Sodium Level 138 mmol/L 142 mmol/L Potassium Level 3.8 mmol/L 3.2 mmol/L Chloride Level 105 mmol/L 110 mmol/L Carbon Dioxide Level 27 mmol/L 27 mmol/L Anion Gap 6.0 mmol/L 5.0 mmol/L Blood Urea Nitrogen 20 mg/dl 19 mg/dl Creatinine 1.48 mg/dl 1.37 mg/dl Est Creatinine Clear Calc Drug Dose 66.8 ml/min 72.1 ml/min Estimated GFR () 46.4 50.9 Estimated GFR (Non- 40.0 43.9 BUN/Creatinine Ratio 13.4 14.1 Random Glucose 130 mg/dl 90 mg/dl Calcium Level 8.5 mg/dl 7.4 mg/dl Total Bilirubin 0.9 mg/dl 0.9 mg/dl Aspartate Amino Transf (AST/SGOT) 37 U/L 27 U/L Alanine Aminotransferase (ALT/SGPT) 21 U/L 17 U/L Alkaline Phosphatase 101 U/L 69 U/L Total Protein 6.9 gm/dl 5.0 gm/dl Albumin 2.7 gm/dl 2.0 gm/dl Globulin 4.2 gm/dl Albumin/Globulin Ratio 0.6 Chemistry Specimen Hemolysis Bedside Lactic Acid Venous 1.85 mmol/L Arterial Blood pH 7.41 Arterial Blood Partial Pressure CO2 44 mmHg Arterial Blood Partial Pressure O2 143 mm/Hg Arterial Blood HCO3 27 mmol/L Arterial Blood Oxygen Saturation 98.9 % Arterial Blood Base Excess 2.0 mEq/L Arterial Blood Gas Delivery 15 L Kermit Test POS Lactic Acid Level 1.4 mmol/L Phosphorus Level 2.0 mg/dl Magnesium Level 1.5 mg/dl Direct Bilirubin 0.3 mg/dl Thyroid Stimulating Hormone (TSH) 31.600 uIu/ml Bedside Glucose 99 mg/dl Test 04/17/17 17:40 04/17/17 18:36 04/18/17 00:11 04/18/17 00:14 Prothrombin Time 14.6 SECONDS Prothromb Time International Ratio 1.4 Activated Partial Thromboplast Time 34.0 SECONDS 48.1 SECONDS Partial Thromboplastin Ratio 1.3 1.9 Sodium Level 140 mmol/L Potassium Level 3.5 mmol/L Chloride Level 107 mmol/L Carbon Dioxide Level 30 mmol/L Anion Gap 3.0 mmol/L Blood Urea Nitrogen 20 mg/dl Creatinine 1.46 mg/dl Est Creatinine Clear Calc Drug Dose 68.3 ml/min Estimated GFR () 47.1 Estimated GFR (Non- 40.7 BUN/Creatinine Ratio 13.8 Random Glucose 113 mg/dl Calcium Level 7.9 mg/dl Total Bilirubin 1.1 mg/dl Aspartate Amino Transf (AST/SGOT) 32 U/L Alanine Aminotransferase (ALT/SGPT) 20 U/L Alkaline Phosphatase 78 U/L Total Protein 5.8 gm/dl Albumin 2.4 gm/dl Globulin 3.4 gm/dl Albumin/Globulin Ratio 0.7 Total Creatine Kinase 151 U/L Troponin I < 0.015 ng/ml Bedside Glucose (other) 170 mg/dl Test 04/18/17 05:16 04/18/17 05:25 04/18/17 06:15 04/18/17 10:58 White Blood Count 16.43 K/uL Red Blood Count 3.59 M/uL Hemoglobin 11.6 g/dL Hematocrit 34.7 % Mean Corpuscular Volume 96.7 fL Mean Corpuscular Hemoglobin 32.3 pg Mean Corpuscular Hemoglobin Concent 33.4 g/dl Platelet Count 161 K/uL Mean Platelet Volume 8.6 fL Neutrophils (%) (Auto) 67.6 % Lymphocytes (%) (Auto) 20.3 % Monocytes (%) (Auto) 10.8 % Eosinophils (%) (Auto) 0.8 % Basophils (%) (Auto) 0.2 % Neutrophils # (Auto) 11.11 K/uL Lymphocytes # (Auto) 3.34 K/uL Monocytes # (Auto) 1.77 K/uL Eosinophils # (Auto) 0.13 K/uL Basophils # (Auto) 0.03 K/uL RDW Standard Deviation 65.2 fL RDW Coefficient of Variation 18.3 % Immature Granulocyte % (Auto) 0.3 % Immature Granulocyte # (Auto) 0.05 K/uL Sodium Level 137 mmol/L Potassium Level 3.5 mmol/L Chloride Level 106 mmol/L Carbon Dioxide Level 27 mmol/L Anion Gap 4.0 mmol/L Blood Urea Nitrogen 18 mg/dl Creatinine 1.09 mg/dl Est Creatinine Clear Calc Drug Dose 91.5 ml/min Estimated GFR () 67.1 Estimated GFR (Non- 57.9 BUN/Creatinine Ratio 16.6 Random Glucose 159 mg/dl Estimated Average Glucose 200 mg/dl Hemoglobin A1c 8.6 % Lactic Acid Level 0.9 mmol/L Calcium Level 7.8 mg/dl Magnesium Level 1.9 mg/dl Total Bilirubin 1.2 mg/dl Direct Bilirubin 0.4 mg/dl Aspartate Amino Transf (AST/SGOT) 33 U/L Alanine Aminotransferase (ALT/SGPT) 23 U/L Alkaline Phosphatase 83 U/L Total Creatine Kinase 130 U/L Troponin I < 0.015 ng/ml Total Protein 6.1 gm/dl Albumin 2.3 gm/dl Procalcitonin 5.82 ng/ml Bedside Glucose (other) 159 mg/dl Activated Partial Thromboplast Time 45.9 SECONDS Partial Thromboplastin Ratio 1.8 Bedside Glucose 151 mg/dl (Trina Rueda, PAHowardC) Assessment and Plan 51 y/o female, with PMHx of hypertension, diabetes mellitus, 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 Septic shock w/ L hydro secondary to obstructing calculi/UTI- E.coli: - Admitted to ICU- stable for transfer to [facility] -- s/p L arterial line on 04/17- removed on 04/18 - Hypotension treated w/ IV Levophed- hypotension resolved, d/c'ed - IV Imipenem- started on 04/17- ID consulted - UCx on 04/16- E.coli, pansensitive - BCx pending - Urology consulted, appreciate recommendations -- s/p cystoscopy and L stent by Dr. 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 at 1.49- RESOLVED Lone a.fib on EKG- no PMHx per records- currently NSR: - Coreg held due to hypotension- rate controlled - Anticoagulated w/ Xarelto - ECHO- non-diagnostic, LV function looks normal, wall motion of the LV can not be assessed, limited views of the RV appear to function normally, no aortic or mitral stenosis HTN: Coreg 12.5 mg BID held due to hypotension T2DM- hgbA1c 8.6%: - Home dose of Lantus 75 mg BID held - Pharmacy consulted for diabetic management- Lantus sliding scale and BSG ACHS w/ ISS h/o PE/DVT- currently on Xarelto: Xarelto held due to urological procedure- now on IV Heparin, will resume Xarelto when OK by urology Recent GI bleed- EGD on 12/29/16 w/ non-bleeding ulcer: - IV Protonix - Follow H&H Hypothyroidism: - TSH 31.6- check T4/T3 - Synthroid 200 mcg daily Depression, bipolar disorder: Cymbalta 60 mg BID, Lexapro 20 mg daily RIMA- s/p ?UPPP in past, mild intermittent asthma- STABLE: - O2 protocol - Currently denies CPAP/BiPAP at home s/p surgery Chronic back pain: Continue Roxicodone q4 hrs PRN for pain management GI prophylaxis: Protonix DVT prophylaxis: IV Heparin Code Status: LEVEL I, FULL Dispo: From home, lives w/ roommate- PT/OT and CM consulted (Trina Rueda, PAHowardC) Reviewed: Pt Seen/Exam by Me (Pauline Bowman DO) History Pt is feeling improved. She is nauseated but she says she is always nauseated. No emesis. She was nauseated prior to breakfast and ate breakfast without emesis or worsening nausea. She has back pain, but this is usual for her too. No chest pain or SOB. Pt states she has PRN O2 at home but rarely uses this. Agree with HPI/ROS as noted by PAC. (Pauline Bowman DO) General Appearance: no apparent distress, obese Eye Exam: bilateral eye normal inspection, bilateral eye EOMI Respiratory: normal breath sounds, no respiratory distress Cardiovascular: normal peripheral pulses, regular rate, rhythm Gastrointestinal: non tender, soft Extremities: non-tender, no pedal edema Neurologic/Psychiatric: alert, oriented x 3 Skin Characteristics: normal color, warm/dry (Pauline Bowman DO) Assessment/Plan Agree with plan as outlined above Pt admitted with septic shock related to UTI/stone Stent placed 04/17 Weaned off of levophed early this AM Dapto/primaxin in the ED, now only on primaxin R art line d/c'd 04/18 Ongoing R IJ placed 04/17 Wean O2 as able, has home O2 at PRN use if needed on d/c ARF on admission is resolved A1c elevated at 8.6 Stable for transfer to tele (Pauline Bowman DO)
[2017-04-18] MEDS: HEPARIN 25,000 UNIT/500ML D5W 500 ML IV PRN (18:01)
[2017-04-18] MEDS: ESCITALOPRAM OXALATE 20 MG TAB PO SCH (20:57)
[2017-04-19] VITALS (7 sets, daily range): BP systolic 102–141; BP diastolic 54–76; PULSE 52–71; TEMP 36.5–37; O2SAT 94–98; Ht 160 cm; Wt 168.3 kg
[2017-04-19] MEDS: OXYCODONE HCL IR 5 MG TAB (IMMEDIATE RELEASE) PO PRN ×4 (01:42→20:19)
[2017-04-19] MEDS: CILASTATIN IV SCH ×2 (05:25→13:02)
[2017-04-19] MEDS: IMIPENEM IV SCH ×2 (05:25→13:02)
[2017-04-19] MEDS: LEVOTHYROXINE 200 MCG TAB PO SCH (05:25)
[2017-04-19] MEDS: D5W IV SCH ×2 (05:25→13:02)
[2017-04-19 05:56] LABS: HEMATOCRIT 32.5 % (37-47); MEAN CELL VOLUME 98.8 fL (80-100); MEAN CORPUSCULAR HEMOGLOBIN 31.6 pg (25-34); RED BLOOD COUNT 3.29 M/uL (4.2-5.4); WHITE BLOOD COUNT 5.95 K/uL (4.8-10.8)
[2017-04-19 06:10] LABS: BASO % 0.2 %; BASO ABS # 0.01 K/uL (0-0.2); COMPLETE YES; EOS % 1.3 %; IG% 0.2 %; LYMPH % 24.7 %; LYMPH ABS # 1.47 K/uL (1.2-3.4); MEAN PLATELET VOLUME 8.8 fL (7.4-10.4); MONO % 9.7 %; NEUT % 63.9 %; PLATELET COUNT 96 K/uL (130-400); PLT ESTIMATE DECREASED
[2017-04-19 06:18] LABS: PARTIAL THROMBOPLASTIN RATIO 1.8
[2017-04-19 06:30] LABS: BUN/CREATININE RATIO 16.9 (10-20); CALCIUM 7.7 mg/dl (8.5-10.1); CREATININE 0.89 mg/dl (0.60-1.20); MAGNESIUM 2.1 mg/dl (1.8-2.4); POTASSIUM 3.4 mmol/L (3.5-5.1)
[2017-04-19] MEDS ORDERED: HEPARIN IV BOLUS 4,000 UNIT in SYRINGE 0 ML IV ONE (07:00)
[2017-04-19] MEDS: DULOXETINE HCL 60 MG CAP PO SCH ×2 (08:00→20:46)
[2017-04-19] MEDS: INSULIN GLARGINE SOLOSTAR 100 UNITS/ML 3 ML PEN SC SCH ×2 (08:05→20:50)
[2017-04-19] MEDS: INSULIN ASPART 100 UNITS/ML 3 ML PEN SC SCH ×4 (08:33→20:47)
--- NOTE | 2017-04-19 09:27 | Clinical Documentation Query ---
CLINICAL DOCUMENTATION QUERY Dr. MONTANO, In your clinical opinion is this patient being managed for: (xx ) Metabolic encephalopathy in the setting of septic shock, HAZEL and UTI ( ) Not Agree ( ) Other explanation of clinical findings (Please Explain) ( ) Unable to determine (Please Define) ( ) Need to Discuss The medical record reflects the following clinical findings, treatment, and risk factors. Clinical Indicators: 51 yo female presenting in septic shock. Described by ER as being lethargic and difficult to awaken. T 39.3, hypotensive 81/51, Cr 1.48 Treatment: IV fluids including boluses, IV daptomycin, IV primaxin, IV levophed, ICU monitoring, pending ID consult, urology consult, L ureteral stent Risk Factors: septic shock, HAZEL, UTI Please clarify and document your clinical opinion in the progress notes and discharge summary. Terms such as "probable", "suspected", "likely", "questionable", "possible", or "still to be ruled out" are acceptable. IF IN AGREEMENT, YOU MUST DOCUMENT ABOVE DIAGNOSTIC STATEMENT IN DAILY PROGRESS NOTES AND DISCHARGE SUMMARY. This document is not part of the patient's record. Thank You, Jeannette Tuttle, RN [phone]
[2017-04-19] MEDS: NORMOSOL R 1,000 ML IV SCH (10:29)
[2017-04-19] MEDS ORDERED: POTASSIUM CHLORIDE 20 MEQ TABCR PO ONE (11:15)
--- NOTE | 2017-04-19 11:15 | Hospitalist Progress Note ---
Hospitalist Progress Note Date of Service Apr 19, 2017. (Yolande Ribeiro ., HOANGC) Subjective Pt evaluation today including: conversation w/ patient, physical exam, chart review, lab review, review of studies, review of inpatient medication list Pain: 4/10 dull lower abdominal pain PO Intake: Tolerating PO diet Voiding: park catheter in place Patient reports feeling better. She does complain of a 4/10 dull lower abdominal pain that has been going on for the last few days but is slowly improving. She denies any known alleviating or aggravating factors. She also complains of nausea but states that this is chronic. The patient has a Park in place that continues to drain bloody urine. The patient denies fevers, chills, sweats, chest pain, palpitations, claudication, cough, wheezing, shortness of breath, vomiting, dysuria, urinary retention, paralysis, weakness, numbness and tingling. Additional Comments: See HPI for pertinent positives and negatives. All other systems reviewed and negative. (Yolande Ribeiro .HOANGC) Objective Vital Signs Date Time Temp Pulse Resp B/P (MAP) Pulse Ox O2 Delivery O2 Flow Rate FiO2 04/19/17 08:44 37.0 54 22 139/76 (97) 94 04/19/17 08:00 Room Air 04/19/17 05:08 36.6 52 18 128/69 (88) 94 Nasal Cannula 6.0 04/19/17 04:00 Nasal Cannula 3.0 04/18/17 23:59 Nasal Cannula 3.0 04/18/17 23:15 36.6 56 22 133/79 (97) 98 Nasal Cannula 6.0 04/18/17 20:00 Nasal Cannula 3.0 04/18/17 19:27 37.1 57 20 105/59 (74) 98 Room Air 4.0 04/18/17 16:00 Nasal Cannula 3.0 04/18/17 15:25 36.7 50 20 108/68 (81) 98 Nasal Cannula 6.0 04/18/17 13:00 36.6 59 18 95 3.0 04/18/17 11:10 36.6 59 18 104/64 (77) 95 Nasal Cannula 3.0 04/18/17 11:07 Nasal Cannula 3.0 (Ribeiro, Yolande ., PA-C) Physical Exam Notes: General appearance: +Morbidly obese. Well-developed, well-nourished, no apparent distress Head: Normocephalic, atraumatic Eyes: Normal inspection, PERRL, EOMI ENT: Normal ENT inspection, hearing grossly normal, pharynx normal Neck: +Right IJ line in place. No surrounding erythema or drainage. Supple, no JVD, trachea midline Respiratory/Chest: +On 6L NC. Lungs clear to auscultation, normal breath sounds, no respiratory distress Cardiovascular: +Bradycardia. Regular rhythm, no gallop, no murmur Abdomen/GI: +Lower abdomen mildly TTP. Normal bowel sounds, soft Extremities/Musculoskeletal: Normal inspection, no calf tenderness, no pedal edema Neurological/Psych: Alert, normal mood/affect, oriented x 3 Skin: Normal color, warm/dry, no rash (Yolande Ribeiro ., PA-C) Laboratory Results Last 24 Hours Test 04/18/17 10:58 04/18/17 14:11 04/18/17 15:54 04/18/17 20:35 Bedside Glucose 151 mg/dl 77 mg/dl 104 mg/dl Activated Partial Thromboplast Time 51.8 SECONDS Partial Thromboplastin Ratio 2.0 Free Thyroxine 0.30 ng/dl Free Triiodothyronine < 0.20 pg/ml Test 04/19/17 05:28 04/19/17 06:35 White Blood Count 5.95 K/uL Red Blood Count 3.29 M/uL Hemoglobin 10.4 g/dL Hematocrit 32.5 % Mean Corpuscular Volume 98.8 fL Mean Corpuscular Hemoglobin 31.6 pg Mean Corpuscular Hemoglobin Concent 32.0 g/dl Platelet Count 96 K/uL Mean Platelet Volume 8.8 fL Neutrophils (%) (Auto) 63.9 % Lymphocytes (%) (Auto) 24.7 % Monocytes (%) (Auto) 9.7 % Eosinophils (%) (Auto) 1.3 % Basophils (%) (Auto) 0.2 % Neutrophils # (Auto) 3.80 K/uL Lymphocytes # (Auto) 1.47 K/uL Monocytes # (Auto) 0.58 K/uL Eosinophils # (Auto) 0.08 K/uL Basophils # (Auto) 0.01 K/uL RDW Standard Deviation 65.8 fL RDW Coefficient of Variation 18.2 % Immature Granulocyte % (Auto) 0.2 % Immature Granulocyte # (Auto) 0.01 K/uL Platelet Estimate DECREASED Activated Partial Thromboplast Time 46.4 SECONDS Partial Thromboplastin Ratio 1.8 Sodium Level 138 mmol/L Potassium Level 3.4 mmol/L Chloride Level 104 mmol/L Carbon Dioxide Level 31 mmol/L Anion Gap 3.0 mmol/L Blood Urea Nitrogen 15 mg/dl Creatinine 0.89 mg/dl Est Creatinine Clear Calc Drug Dose 113.2 ml/min Estimated GFR () 85.8 Estimated GFR (Non- 74.0 BUN/Creatinine Ratio 16.9 Random Glucose 81 mg/dl Calcium Level 7.7 mg/dl Magnesium Level 2.1 mg/dl Total Bilirubin 0.7 mg/dl Direct Bilirubin 0.2 mg/dl Aspartate Amino Transf (AST/SGOT) 28 U/L Alanine Aminotransferase (ALT/SGPT) 20 U/L Alkaline Phosphatase 73 U/L Total Protein 5.8 gm/dl Albumin 2.3 gm/dl Bedside Glucose 122 mg/dl (Yolande Ribeiro ., PAHowardC) Assessment and Plan 51 y/o female with a history of HTN, DM II, 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 Septic shock w/ L hydronephrosis and metabolic encephalopathy secondary to obstructing calculi/UTI--improving - Admitted to ICU for pressor support. Levophed stopped 04/18. Stable for transfer to [facility]. Pt in sinus bradycardia overnight, HR in 50s - Hypotension treated w/ IV Levophed--resolved, pressors d/c'd - D/C right IJ - Continue IV imipenem. Day #3 of abx. - Infectious disease consulted, appreciate recs - UCx on 04/16 with E.coli, pansensitive - BCx NGTD x 2 - Urology consulted, appreciate recs: S/p cystoscopy and L stent by Dr. Aguilera on 04/17. Will need ureteroscopy after recovered Acute renal failure on CKD stage II/III--resolved - Creatinine stable, at baseline A-fib on EKG, no PMH of this in outpt records--resolved, in SR - Coreg held due to hypotension and bradycardia, HR in 50s - Anticoagulated w/IV heparin, resume Xarelto when ok with urology/hematuria improving - ECHO- non-diagnostic, LV function looks normal, wall motion of the LV can not be assessed, limited views of the RV appear to function normally, no aortic or mitral stenosis HTN--stable - Coreg held as above T2DM- hgbA1c 8.6%: - Home dose of Lantus 75 mg BID held - Pharmacy consulted for diabetic management - Lantus 25 units SC BID - Insulin sliding scale - Check BSGs q ac and qhs h/o PE/DVT -Xarelto on hold, s/p ureteral stent placement -IV heparin. Resume Xarelto when ok with urology Hematuria--ongoing -Hgb stable at 10.4 Recent GI bleed- EGD on 12/29/16 w/ non-bleeding ulcer: - IV Protonix - Follow H&H Hypothyroidism - TSH 31.6, T3 and T4 low - Synthroid 200 mcg PO qd - Recheck thyroid function tests in 4-6 weeks Depression, bipolar disorder--stable -Continue Cymbalta 60 mg PO BID, Lexapro 20 mg PO qd RIMA- s/p ?UPPP in past, mild intermittent asthma- STABLE: - O2 protocol. Currently on 6L NC - Currently denies CPAP/BiPAP at home s/p surgery - Wears 3L NC at nighttime and prn during day Chronic back pain - Continue Roxicodone q4 hrs PRN for pain management DVT prophylaxis -IV heparin Code Status -Level I, FULL RESUSCITATION STATUS Dispo -From home w/roommate. Uses walker for assistance -PT/OT, evals pending -Case management following (Yolande Ribeiro ., PA-C) PA Physician Supervision Note: I interviewed and examined the patient. Discussed with Yolande Ribeiro PAC and agree with findings and plan as documented in the note. Any exceptions or clarifications are listed here: None Patient is lying comfortably in bed she said she's feeling like she is recovering she still having gross hematuria other than being weak she has no other focal complaints or vitals remain stable Cardiac exam is regular lungs of decreased breath sounds at the bases her abdomen is uncomfortable to deep palpation bowel sounds are present Patient sepsis from urinary source with an obstructed ureter status post stent placement felt persistent hematuria. The patient is fully anticoagulated due to a history of thrombophilia having a DVT and PE and typically taking's xarelto this was transitioned to heparin. Patient will occur PT OT evaluation and may require therapy for hypertension diabetes and peptic ulcer disease continued to be managed her acute kidney injury from hypotension is being managed on top of her chronic kidney disease stage III Documented By: James Maldonado (James Maldonado M.D.)
--- NOTE | 2017-04-19 11:31 | Pharmacy Progress Note ---
Pharmacy Glycemic Short Note 2 Date of Service Apr 19, 2017. OUTPATIENT ANTIDIABETIC REGIMEN: * Lantus 75 units BID plus Novolog 2-30 units with meals based upon blood sugar * A1c = 10.9 % 05/06/15 * A1C = 8.6% on 04/18/17 ASSESSMENT: * 51yo T2DM female known to pharmacy from previous admissions/glycemic consults * Patient takes large doses of basal insulin as an outpatient, but typically requires about half of this for admission. * Will split basal insulin dosing BID, at a reduced dose, to allow for flexible dose adjustments with changing patient status while critically ill. * BSGs over the past 24hrs: * 04/18: 159, 151, 77, 104 * 04/19: 122 PLAN FOR INPATIENT GLYCEMIC CONTROL: SQ basal bolus insulin regimen based on estimated total daily dose of ~ 150 units/day * Basal insulin * Reduce Lantus dose slightly to 25 units SQ BID * Bolus insulin * NovoLog per scale ACHS or Q6hrs while NPO * Goal Range: Low 120 mg/dL - High 160 mg/dL * Correction Factor: 10 mg/dL/unit * Nutritional / Prandial insulin per carb ratio of 1 unit per 4 grams CHO consumed
[2017-04-19] MEDS: PANTOprazole INJ 40 MG in SYRINGE 0 ML IV SCH (11:42)
--- NOTE | 2017-04-19 12:21 | Clinical Documentation Query ---
CLINICAL DOCUMENTATION QUERY Ms. SINCLAIR, In your clinical opinion is this patient being managed for: (x ) Metabolic encephalopathy in the setting of septic shock, HAZEL and UTI ( ) Not Agree ( ) Other explanation of clinical findings (Please Explain) ( ) Unable to determine (Please Define) ( ) Need to Discuss The medical record reflects the following clinical findings, treatment, and risk factors. Clinical Indicators: 51 yo female presenting in septic shock. Described by ER as being lethargic and difficult to awaken. T 39.3, hypotensive 81/51, Cr 1.48 Treatment: IV fluids including boluses, IV daptomycin, IV primaxin, IV levophed, ICU monitoring, pending ID consult, urology consult, L ureteral stent Risk Factors: septic shock, HAZEL, UTI Please clarify and document your clinical opinion in the progress notes and discharge summary. Terms such as "probable", "suspected", "likely", "questionable", "possible", or "still to be ruled out" are acceptable. IF IN AGREEMENT, YOU MUST DOCUMENT ABOVE DIAGNOSTIC STATEMENT IN DAILY PROGRESS NOTES AND DISCHARGE SUMMARY. This document is not part of the patient's record. Thank You, Jeannette Tuttle, MIKE [phone]
[2017-04-19 13:20] LABS: PARTIAL THROMBOPLASTIN RATIO 2.4
[2017-04-19] MEDS: HEPARIN 25,000 UNIT/500ML D5W 500 ML IV PRN (17:29)
[2017-04-19] MEDS: CEFTRIAXONE SOD INJ 2000 MG in DEXTROSE 5% 50ML IV SCH (20:13)
[2017-04-19] MEDS: ESCITALOPRAM OXALATE 20 MG TAB PO SCH (20:46)
[2017-04-20] VITALS (7 sets, daily range): BP systolic 117–131; BP diastolic 69–86; PULSE 52–61; TEMP 36.4–37; O2SAT 91–99
[2017-04-20] MEDS: OXYCODONE HCL IR 5 MG TAB (IMMEDIATE RELEASE) PO PRN ×4 (00:57→20:32)
[2017-04-20] MEDS: NORMOSOL R 1,000 ML IV SCH ×2 (02:00→12:27)
[2017-04-20] MEDS: LEVOTHYROXINE 200 MCG TAB PO SCH (05:05)
[2017-04-20 06:37] LABS: HEMATOCRIT 30.7 % (37-47); MEAN CELL VOLUME 99.4 fL (80-100); MEAN CORPUSCULAR HEMOGLOBIN 32.4 pg (25-34); MEAN CORPUSCULAR HGB CONC 32.6 g/dl (32-36); RED BLOOD COUNT 3.09 M/uL (4.2-5.4); WHITE BLOOD COUNT 4.24 K/uL (4.8-10.8)
[2017-04-20 07:03] LABS: MEAN PLATELET VOLUME 9.2 fL (7.4-10.4); PLATELET COUNT 87 K/uL (130-400)
[2017-04-20 07:06] LABS: BASO % 0.2 %; BASO ABS # 0.01 K/uL (0-0.2); COMPLETE YES; EOS % 1.4 %; IG% 0.2 %; LYMPH % 31.8 %; LYMPH ABS # 1.35 K/uL (1.2-3.4); MONO % 8.5 %; NEUT % 57.9 %
[2017-04-20 07:12] LABS: BUN/CREATININE RATIO 15.8 (10-20); CREATININE 0.88 mg/dl (0.60-1.20); MAGNESIUM 2.1 mg/dl (1.8-2.4); POTASSIUM 3.6 mmol/L (3.5-5.1)
[2017-04-20] MEDS: DULOXETINE HCL 60 MG CAP PO SCH ×2 (07:52→20:32)
[2017-04-20] MEDS: INSULIN ASPART 100 UNITS/ML 3 ML PEN SC SCH ×4 (07:55→20:37)
[2017-04-20] MEDS: INSULIN GLARGINE SOLOSTAR 100 UNITS/ML 3 ML PEN SC SCH ×2 (07:56→20:42)
--- NOTE | 2017-04-20 09:57 | Pharmacy Progress Note ---
Glycemic Control Progress Note Date of Service Apr 20, 2017. Scope Glycemic Pharmacist consulted for glycemic control to write orders per [facility] inpatient glycemic control protocol. Objective Accuchecks BSG (last 24hrs): Test 04/19/17 11:22 04/19/17 17:07 04/19/17 20:24 04/20/17 05:54 Bedside Glucose 115 mg/dl (70-90) 124 mg/dl (70-90) 86 mg/dl (70-90) Random Glucose 72 mg/dl (70-99) Test 04/20/17 06:19 Bedside Glucose 84 mg/dl (70-90) HbA1c: Test 04/18/17 05:16 Hemoglobin A1c 8.6 % (4.5-5.6) H Recent Pertinent Medications The patient is currently receiving: * Basal insulin: Lantus 25 units every 12 hours * Correctional Insulin: Novolog Correction per scale ACHS Goal Range: Low 120 mg/dL - High 160 mg/dL Correction Factor: 10 mg/dL/unit * Prandial insulin: Per carb ratio of 1 unit per 4 grams CHO consumed Outpatient Anti-Diabetic Meds * Lantus 75 units BID * Novolog 2-30 units with meals based upon blood sugar * A1c = 10.9 % 05/06/15 * A1C = 8.6% on 04/18/17 Assessment & Plan ASSESSMENT: 04/20/17 * BSG's well controlled over the last 24 hours * BSG's have fallen within the range of 72-124 while tolerating a diet * Fasting BSG 72-84 this AM however the patient has 65 units of Lantus on board , today's orders will provide 50 units/day in divided doses. Would ultimately like to trial the current Lantus dose for 24 hrs before making further reductions. * If BSGs are running on the lower side today will lighten insulin doses for the remainder of the day then return to current doses tomorrow. Will reassess insulin doses after lunchtime results available. PLAN FOR INPATIENT GLYCEMIC CONTROL: * Continuing Lantus 25 units SQ BID * Continuing correction factor of 10 mg/dl/unit * Continuing carb ratio of 1 unit per 4 grams CHO consumed * Continuing goal range of Low 120 mg/dL - High 160 mg/dL * Please note that the plan above was derived based on current level of insulin resistance and hospital stress. These recommendations are appropriate for inpatient admission only. Plan of care upon discharge will need to be reassessed to avoid potential outpatient hypo/hyperglycemia. Thank you.
--- NOTE | 2017-04-20 10:36 | Hospitalist Progress Note ---
Hospitalist Progress Note Date of Service Apr 20, 2017. (Yolande Ribeiro ., GAYATRI) Subjective Pt evaluation today including: conversation w/ patient, physical exam, chart review, lab review, review of inpatient medication list Pain: 4/10 dull abdominal pain PO Intake: Tolerating PO diet Voiding: park catheter in place Patient reports feeling better. She continues to have hematuria but this appears to be clearing up. She still complains of a 4/10 dull pain in her lower abdomen, as well as her chronic nausea. She denies any vomiting. The patient denies fevers, chills, sweats, chest pain, palpitations, claudication, cough, wheezing, shortness of breath, vomiting, dysuria, urinary retention, paralysis, weakness, numbness and tingling. Additional Comments: See HPI for pertinent positives and negatives. All other systems reviewed and negative. (Yolande Ribeiro, GAYATRI) Objective Vital Signs Date Time Temp Pulse Resp B/P (MAP) Pulse Ox O2 Delivery O2 Flow Rate FiO2 04/20/17 08:26 37.0 59 22 117/73 (88) 97 04/20/17 08:00 Nasal Cannula 4.0 04/20/17 05:05 36.4 55 18 131/74 (93) 97 Nasal Cannula 6.0 04/20/17 04:00 Nasal Cannula 6.0 04/20/17 00:20 36.7 52 18 121/77 (92) 99 Nasal Cannula 6.0 04/19/17 23:59 Nasal Cannula 6.0 04/19/17 20:41 36.7 53 16 123/71 (88) 96 Nasal Cannula 6.0 04/19/17 20:00 96 Nasal Cannula 6.0 04/19/17 16:35 36.5 52 18 102/54 (70) 98 Nasal Cannula 6.0 04/19/17 16:00 98 Nasal Cannula 6.0 04/19/17 12:10 36.8 71 18 141/62 (88) 95 04/19/17 12:00 Room Air (Yolande Ribeiro ., HOANGC) Physical Exam Notes: General appearance: +Morbidly obese. Well-developed, well-nourished, no apparent distress Head: Normocephalic, atraumatic Eyes: Normal inspection, PERRL, EOMI ENT: Normal ENT inspection, hearing grossly normal, pharynx normal Neck: +Right IJ line in place. No surrounding erythema or drainage. Supple, no JVD, trachea midline Respiratory/Chest: +On 4L NC. Lungs clear to auscultation, normal breath sounds, no respiratory distress Cardiovascular: +Bradycardia. Regular rhythm, no gallop, no murmur Abdomen/GI: +Abdomen diffusely TTP. Normal bowel sounds, soft : +Hematuria, but appears to be clearing Extremities/Musculoskeletal: Normal inspection, no calf tenderness, no pedal edema Neurological/Psych: Alert, normal mood/affect, oriented x 3 Skin: Normal color, warm/dry, no rash (Yolande Ribeiro, GAYATRI) Laboratory Results Last 24 Hours Test 04/19/17 11:22 04/19/17 12:53 04/19/17 17:07 04/19/17 20:24 Bedside Glucose 115 mg/dl 124 mg/dl 86 mg/dl Activated Partial Thromboplast Time 61.9 SECONDS Partial Thromboplastin Ratio 2.4 Test 04/20/17 05:54 04/20/17 06:19 White Blood Count 4.24 K/uL Red Blood Count 3.09 M/uL Hemoglobin 10.0 g/dL Hematocrit 30.7 % Mean Corpuscular Volume 99.4 fL Mean Corpuscular Hemoglobin 32.4 pg Mean Corpuscular Hemoglobin Concent 32.6 g/dl Platelet Count 87 K/uL Mean Platelet Volume 9.2 fL Neutrophils (%) (Auto) 57.9 % Lymphocytes (%) (Auto) 31.8 % Monocytes (%) (Auto) 8.5 % Eosinophils (%) (Auto) 1.4 % Basophils (%) (Auto) 0.2 % Neutrophils # (Auto) 2.45 K/uL Lymphocytes # (Auto) 1.35 K/uL Monocytes # (Auto) 0.36 K/uL Eosinophils # (Auto) 0.06 K/uL Basophils # (Auto) 0.01 K/uL RDW Standard Deviation 66.7 fL RDW Coefficient of Variation 18.4 % Immature Granulocyte % (Auto) 0.2 % Immature Granulocyte # (Auto) 0.01 K/uL Activated Partial Thromboplast Time 51.2 SECONDS Partial Thromboplastin Ratio 2.0 Sodium Level 139 mmol/L Potassium Level 3.6 mmol/L Chloride Level 103 mmol/L Carbon Dioxide Level 31 mmol/L Anion Gap 5.0 mmol/L Blood Urea Nitrogen 14 mg/dl Creatinine 0.88 mg/dl Est Creatinine Clear Calc Drug Dose 115.6 ml/min Estimated GFR () 86.9 Estimated GFR (Non- 75.0 BUN/Creatinine Ratio 15.8 Random Glucose 72 mg/dl Calcium Level 8.0 mg/dl Magnesium Level 2.1 mg/dl Total Bilirubin 0.5 mg/dl Direct Bilirubin 0.2 mg/dl Aspartate Amino Transf (AST/SGOT) 26 U/L Alanine Aminotransferase (ALT/SGPT) 16 U/L Alkaline Phosphatase 71 U/L Total Protein 6.0 gm/dl Albumin 2.3 gm/dl Bedside Glucose 84 mg/dl (Yolande Ribeiro ., PAHowardC) Assessment and Plan 51 y/o female with a history of HTN, DM II, 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 Septic shock w/ L hydronephrosis and metabolic encephalopathy secondary to obstructing calculi/UTI--improving - Admitted to ICU for pressor support. Levophed stopped 04/18. Stable for transfer to [facility]. Pt in sinus bradycardia/sinus rhythm overnight, HR in 50s- 60s. Possible brief episode of a-flutter this am, however also a lot of artifact on monitor. Pt is rate controlled and anticoagulated either way so will transfer to medical - Hypotension treated w/ IV Levophed--resolved, pressors d/c'd - D/C Imipenem. Switch to Rocephin 1 gm IV qd. Day #4 of abx. - Infectious disease consulted, appreciate recs - UCx on 04/16 with E.coli, pansensitive - BCx NGTD x 2 - Urology consulted, appreciate recs: S/p cystoscopy and L stent by Dr. Aguilera on 04/17. Will need ureteroscopy after recovered Acute renal failure on CKD stage II/III--resolved - Creatinine stable, at baseline A-fib on EKG, no PMH of this in outpt records--resolved, in SR - Coreg held due to hypotension and bradycardia, HR in 50s - Hematuria clearing, Hgb stable. D/C IV heparin and resume Xarelto - ECHO- non-diagnostic, LV function looks normal, wall motion of the LV can not be assessed, limited views of the RV appear to function normally, no aortic or mitral stenosis HTN--stable - Coreg held as above T2DM- hgbA1c 8.6%: - Home dose of Lantus 75 mg BID held - Pharmacy consulted for diabetic management - Lantus 25 units SC BID - Insulin sliding scale - Check BSGs q ac and qhs h/o PE/DVT -Hematuria s/p ureteral stent placement is clearing, Hgb stable -D/C IV heparin and resume Xarelto to make sure she is tolerating prior to discharge home Hematuria--ongoing -Hgb stable at 10.0 on 04/20 Recent GI bleed- EGD on 12/29/16 w/ non-bleeding ulcer: - IV Protonix - Follow H&H Hypothyroidism - TSH 31.6, T3 and T4 low - Synthroid 200 mcg PO qd - Recheck thyroid function tests in 4-6 weeks Depression, bipolar disorder--stable -Continue Cymbalta 60 mg PO BID, Lexapro 20 mg PO qd RIMA- s/p ?UPPP in past, mild intermittent asthma- STABLE: - O2 protocol. Currently on 4L NC - Currently denies CPAP/BiPAP at home s/p surgery - Wears 3L NC at nighttime and prn during day Chronic back pain - Continue Roxicodone q4 hrs PRN for pain management DVT prophylaxis -IV heparin Code Status -Level I, FULL RESUSCITATION STATUS Dispo -From home w/roommate. Uses walker for assistance -PT/OT evaluated and treat, ok to return home -Case management following -Anticipate discharge possibly tomorrow. Resuming Xarelto, will monitor to make sure hematuria does not worsen/she tolerates prior to discharge (Yolande Ribeiro ., PA-C) PA Physician Supervision Note: I interviewed and examined the patient. Discussed with Yolande Ribeiro PAC and agree with findings and plan as documented in the note. Any exceptions or clarifications are listed here: None Patient is lying comfortably in bed she said she feels improved and looking forward to returning home soon vitals remain stable Cardiac exam is regular lungs of decreased breath sounds at the bases her abdomen is with normal bowel sounds are present Patient sepsis from urinary source with an obstructed ureter status post stent placement felt persistent hematuria. The patient will restart xarelto 04/20 due to a history of thrombophilia having a DVT and PE PT OT evaluation feels safe to go home with help Documented By: James Maldonado (James Maldonado M.D.)
[2017-04-20] MEDS: PANTOprazole INJ 40 MG in SYRINGE 0 ML IV SCH (11:15)
[2017-04-20] MEDS ORDERED: RIVAROXABAN 20 MG TAB PO ONE (15:00)
[2017-04-20] MEDS: HYDROmorphone INJ 0.5 MG/0.5 ML SYR IV PRN ×2 (16:24→22:02)
[2017-04-20] MEDS: ESCITALOPRAM OXALATE 20 MG TAB PO SCH (20:33)
[2017-04-20] MEDS: CEFTRIAXONE SOD INJ 2000 MG in DEXTROSE 5% 50ML IV SCH (20:36)
[2017-04-21 00:12] VITALS: BP 118/72; PULSE 56; TEMP 36.8; O2SAT 90
[2017-04-21] MEDS: NORMOSOL R 1,000 ML IV SCH (01:20)
[2017-04-21] MEDS: OXYCODONE HCL IR 5 MG TAB (IMMEDIATE RELEASE) PO PRN ×3 (01:22→11:54)
[2017-04-21] MEDS: LEVOTHYROXINE 200 MCG TAB PO SCH (05:19)
[2017-04-21 05:31] LABS: HEMATOCRIT 31.7 % (37-47); MEAN CELL VOLUME 97.8 fL (80-100); MEAN CORPUSCULAR HEMOGLOBIN 31.5 pg (25-34); MEAN CORPUSCULAR HGB CONC 32.2 g/dl (32-36); RED BLOOD COUNT 3.24 M/uL (4.2-5.4); WHITE BLOOD COUNT 4.26 K/uL (4.8-10.8)
[2017-04-21 05:39] LABS: MEAN PLATELET VOLUME 8.8 fL (7.4-10.4); PARTIAL THROMBOPLASTIN RATIO 1.2; PLATELET COUNT 98 K/uL (130-400)
[2017-04-21 05:57] LABS: BUN/CREATININE RATIO 13.8 (10-20); CALCIUM 7.9 mg/dl (8.5-10.1); CREATININE 0.85 mg/dl (0.60-1.20); MAGNESIUM 1.8 mg/dl (1.8-2.4); POTASSIUM 3.6 mmol/L (3.5-5.1)
[2017-04-21 06:00] LABS: BASO % 0.2 %; BASO ABS # 0.01 K/uL (0-0.2); COMPLETE YES; EOS % 1.6 %; IG% 0.2 %; LYMPH % 33.6 %; LYMPH ABS # 1.43 K/uL (1.2-3.4); MONO % 8.7 %; NEUT % 55.7 %
[2017-04-21 07:49] VITALS: BP 147/81; PULSE 60; TEMP 36.5; O2SAT 92
[2017-04-21] MEDS ORDERED: CIPR-255 PO ×2 (07:59)
--- NOTE | 2017-04-21 08:01 | Discharge Instructions ---
Discharge Instructions Date of Service Apr 21, 2017. Admission Reason for Admission: Septic Shock Discharge Discharge Diagnosis / Problem: sepsis from urinary source, renal stone-> stent Discharge Goals Goal(s): Diagnostic testing, Therapeutic intervention Activity Recommendations Activity Limitations: as noted below Lifting Limitations: gradually increase as tolerated . Current Hospital Diet Patient's current hospital diet: Diabetes Type 2 Diet, AHA Diet (Heart Healthy) Discharge Diet Recommended Diet: Regular Diet Procedures Procedures Performed: Cystoscopy, left retrograde pyelogram, placement of left ureteral stent Pending Studies Studies pending at discharge: no Laboratory Results Hemoglobin A1c Test 04/18/17 05:16 Range/Units Estimated Average Glucose 200 mg/dl Hemoglobin A1c 8.6 H 4.5-5.6 % Medical Emergencies . Who to Call and When: Medical Emergencies: If at any time you feel your situation is an emergency, please call 911 immediately. . Non-Emergent Contact Non-Emergency issues call your: Primary Care Provider Call Non-Emergent contact if: temperature is above 101, your pain is unusual for you . . "Provider Documentation" section prepared by James Maldonado. . VTE Core Measure Inpt VTE Proph given/why not?: Unfractionated heparin SQ, Other Anticoagulation
[2017-04-21] MEDS: DULOXETINE HCL 60 MG CAP PO SCH (08:19)
[2017-04-21] MEDS: INSULIN ASPART 100 UNITS/ML 3 ML PEN SC SCH (08:23)
[2017-04-21] MEDS ORDERED: INSULIN GLARGINE SOLOSTAR 100 UNITS/ML 3 ML PEN SC SCH (09:00)
--- NOTE | 2017-04-21 09:13 | Pharmacy Progress Note ---
Pharmacy Glycemic Short Note 2 Date of Service Apr 21, 2017. OUTPATIENT ANTIDIABETIC REGIMEN: * Lantus 75 units BID plus Novolog 2-30 units with meals based upon blood sugar * A1c = 10.9 % 05/06/15 * A1C = 8.6% on 04/18/17 ASSESSMENT: * 51yo T2DM female known to pharmacy from previous admissions/glycemic consults * Patient takes large doses of basal insulin as an outpatient, but typically requires significantly less while admitted. * Patient received 67 units of insulin on 04/20 (decreased from 92 units the previous day). BSGs over the past 24hrs: * 04/20: 84, 102, 72, 112 * 04/21: 84 * Current regimen highly basal weighted. Will redistribute regimen based on ~70 units/day to avoid development of hypoglycemia. PLAN FOR INPATIENT GLYCEMIC CONTROL: * Basal insulin - decrease * Lantus 20 units SQ BID * Bolus insulin * NovoLog per scale ACHS or Q6hrs while NPO * Goal Range: Low 120 mg/dL - High 160 mg/dL * Correction Factor: 20 mg/dL/unit * Nutritional / Prandial insulin per carb ratio of 1 unit per 7 grams CHO consumed Thank you.
[2017-04-21] MEDS ORDERED: OXYC1TAB3 PO ×2 (10:07)
[2017-04-21 10:23] VITALS: BP 147/81; PULSE 60; TEMP 36.5; O2SAT 92
[2017-04-21] MEDS ORDERED: RIVAROXABAN 20 MG TAB PO SCH (17:00)
--- NOTE | 2017-04-21 17:59 | Discharge Summary ---
Discharge Summary Date of Service Apr 21, 2017. Discharge Summary Admission Date: Apr 17, 2017 at 15:36 Discharge Date: Apr 21, 2017 Discharge Disposition: Home with services Principal Diagnosis: sepsis from uti poa Problems/Secondary Diagnoses: (1) Asthma Status: Chronic (2) Benign hypertension Status: Chronic (3) Bipolar disorder Status: Chronic (4) Chronic pain Status: Chronic (5) Degenerative joint disease of spine Status: Chronic (6) Depression Status: Chronic (7) Diabetes mellitus type 2 Status: Chronic (8) Drug-seeking behavior Status: Chronic (9) Gastroesophageal reflux disease Status: Chronic (10) H/O hernia repair Status: Chronic (11) Hernia of abdominal wall Status: Chronic (12) Hypothyroidism Status: Chronic (13) Insomnia Status: Chronic (14) senior living current use of 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 Status: Chronic (15) LUMBAGO Status: Chronic (16) Migraine Status: Chronic (17) Morbid obesity Status: Chronic (18) Morbid obesity Status: Chronic (19) Morbid obesity with BMI of 60.0-69.9, adult Status: Chronic (20) Obstructive sleep apnea Status: Chronic (21) Spinal stenosis Status: Chronic (22) Supraumbilical hernia Status: Chronic Immunizations: Have You Had Influenza Vaccine: No Influenza Vaccine Date: Feb 20, 2011 History of Tetanus Vaccine?: 2009 Tetanus Immunization Date: Dec 21, 2005 History of Pneumococcal: Yes Pneumococcal Date: Feb 03, 2012 History of Hepatitis B Vaccine: No Medication Reconciliation Continued Medications: Carvedilol (Coreg) 12.5 Mg Tab 12.5 MG PO BID Ciprofloxacin Hcl (Cipro) 500 Mg Tab 500 MG PO BID, #14 TAB (This prescription has been renewed) Duloxetine Hcl (Cymbalta) 60 Mg Cap 60 MG PO BID, CAP Escitalopram Oxalate (Lexapro) 20 Mg Tab 20 MG PO QPM Home O2 Therapy (Oxygen) Gas 3 LITERS NA UD PRN for Shortness of Breath Insulin Aspart (Novolog Flexpen) 100 Units/Ml Inj UNITS SC TIDM COVERAGE DIRECTED BY FOLLOWING SLIDING SCALE: 150 - 199 2 UNITS 200 - 249 4 UNITS 250 - 299 8 UNITS 300 - 349 12 UNITS 350 - 399 18 UNITS 400 - 449 24 UNITS 450 - 499 30 UNITS Insulin Glargine (Lantus Solostar) 100 Unit/Ml Inj 75 UNITS SQ BID Levothyroxine Sodium (Levothyroxine Sodium) 200 Mcg Tab 200 MG PO DAILY, #30 Oxycodone Immediate Rel Tab (Roxicodone Ir) 5 Mg Tab 1-2 TAB PO Q4H PRN for Severe Pain, #15 TAB (This prescription has been renewed) Rivaroxaban (Xarelto) 20 Mg Tab 20 MG PO DAILY, #30 Discharge Exam Review of Systems: Constitutional: No fever, No chills Respiratory: No cough, No shortness of breath, No dyspnea on exertion Cardiovascular: No chest pain, No orthopnea, No edema Abdomen: No pain, No nausea, No diarrhea Musculoskeletal: No joint pain, No swelling Physical Exam: General Appearance: + mild distress, + obese Neck: supple, no JVD Respiratory/Chest: chest non-tender, lungs clear, normal breath sounds Cardiovascular: regular rate, rhythm, no murmur Abdomen / GI: normal bowel sounds, non tender, soft Neurologic/Psychiatric: alert, oriented x 3 Hospital Course 51 y/o female with a history of HTN, DM II, 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 Aguilera on 04/17. Will need ureteroscopy after recovered, will have outpt appointment arranged by urology Acute renal failure on CKD stage II/III--resolved A-fib on EKG, no PMH of this in outpt records--resolved, in SR, likely due to physiological stressore - Coreg and resumed Xarelto without hematuria, coreg also treats HTN - ECHO- non-diagnostic, LV function looks normal, wall motion of the LV can not be assessed, limited views of the RV appear to function normally, no aortic or mitral stenosis T2DM- hgbA1c 8.6%: lantus and insulin sliding scale for home use, recommend outpt follow up with pcp given high aic h/o PE/DVT- resume Xarelto Recent GI bleed- EGD on 09/06/17 w/ non-bleeding ulcer: Hypothyroidism Synthroid 200 mcg PO qd, recommend outpt Recheck thyroid function tests in 4-6 weeks Depression, bipolar disorder--stable on Cymbalta 60 mg PO BID, Lexapro 20 mg PO qd RIMA- s/p ?UPPP in past, mild intermittent asthma- STABLE: - O2 protocol. Currently on 4L NC - Wears 3L NC at nighttime and prn during day Chronic back pain Roxicodone q4 hrs PRN for pain management Code Status-Level I, FULL RESUSCITATION STATUS Dispo home w/roommate. Uses walker for assistance -PT/OT evaluated and treat, ok to return home Code Status -Level I, FULL RESUSCITATION STATUS - Total Time Spent: Greater than 30 minutes This includes examination of the patient, discharge planning, medication reconciliation, and communication with other providers. Discharge Instructions Please refer to the electronic Patient Visit Report (Discharge Instructions) for additional information.
--- NOTE | 2017-04-28 10:11 | Medical Consult ---
Consultation Note Date of Service Apr 28, 2017. Consultation Note Infectious disease consultation was requested, but consult requested a Dr. Patrick Calderon, and so the consult was never referred to the appropriate physician. Therefore no Infectious Disease consultation was performed.
== END 2017-04-21 12:00 | disposition home health service (06) | DRG 871 ==
LOC: EDBD 11:07 → C.EDC 11:08 → C.MSICU 15:36 → CANBEDREQ 15:45 → C.2E 04-18 13:27 → ENRESERV 04-20 10:55 → C.MS2W 04-20 12:13
PROVIDERS: ADMIT Internal Medicine; ATTEND Internal Medicine
PROC: 0T778DZ Dilation of Left Ureter with Intraluminal Device, Via Natural or Artificial Opening Endoscopic (ICD-10-PCS; principal; 2017-04-17 14:58)
PROC: BT04ZZZ Plain Radiography of Kidneys, Ureters and Bladder (ICD-10-PCS; principal; 2017-04-17 14:58)
PROC: 03HY32Z Insertion of Monitoring Device into Upper Artery, Percutaneous Approach (ICD-10-PCS; 2017-04-17 14:58)
PROC: 05H533Z Insertion of Infusion Device into Right Subclavian Vein, Percutaneous Approach (ICD-10-PCS; 2017-04-17 14:58)
DX: A41.51 Sepsis due to Escherichia coli [E. coli] (principal); R65.21 Severe sepsis with septic shock; G93.41 Metabolic encephalopathy; N13.2 Hydronephrosis with renal and ureteral calculous obstruction; Z68.44 Body mass index [BMI] 60.0-69.9, adult; N39.0 Urinary tract infection, site not specified; N17.9 Acute kidney failure, unspecified; J45.20 Mild intermittent asthma, uncomplicated; I10 Essential (primary) hypertension; F31.9 Bipolar disorder, unspecified; K21.9 Gastro-esophageal reflux disease without esophagitis; E66.01 Morbid (severe) obesity due to excess calories; F17.200 Nicotine dependence, unspecified, uncomplicated; Z79.01 Long term (current) use of 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s; M54.9 Dorsalgia, unspecified; G47.33 Obstructive sleep apnea (adult) (pediatric); E11.9 Type 2 diabetes mellitus without complications; E03.9 Hypothyroidism, unspecified; I48.91 Unspecified atrial fibrillation; Z86.718 Personal history of other venous thrombosis and embolism; K74.60 Unspecified cirrhosis of liver; N23 Unspecified renal colic; E11.43 Type 2 diabetes mellitus with diabetic autonomic (poly)neuropathy; Z90.49 Acquired absence of other specified parts of digestive tract; Z90.710 Acquired absence of both cervix and uterus; Z80.9 Family history of malignant neoplasm, unspecified; Z83.3 Family history of diabetes mellitus; Z82.49 Family history of ischemic heart disease and other diseases of the circulatory system; F17.210 Nicotine dependence, cigarettes, uncomplicated; Z79.899 Other long term (current) drug therapy; Z79.4 Long term (current) use of insulin

== ENCOUNTER 2017-04-27 13:49 | Emergency (ER) | payer OTHER ==
[~2017-04-27] VITALS: Ht 160 cm; Wt 123.9 kg
[~2017-04-27 13:49] MED LIST changes: -CARV12.52 PO; -INSDGIPEN SQ; -NVLGI/PEN SC; -OXGN; +OXYC-737 PO; -OXYC1TAB3 PO; -REVIEWED; -XRL20 PO; -[UNRECOGNIZED DRUG - OTHER]
[2017-04-27 13:52] VITALS: TEMP 36.9; Ht 160 cm; Wt 123.9 kg
--- NOTE | 2017-04-27 14:31 | EMERGENCY ROOM VISIT NOTE ---
History Report prepared by [place]: Franck Bar Under the Supervision of: Dr. Salvador Wolf M.D. First contact with patient: 14:10 Chief Complaint: URINARY SYMPTOMS Stated Complaint: PAIN DUE TO STINTS Nursing Triage Summary: Pt states Anastasia major she had emergency surgery for kidney stone and I went septic. I tried to get a hold of the Dr and I couldn't. I'm having a lot of burning in my vagina and my back hurts really bad and I'm sick to my stomach." Symptoms began this am. Dr valadez tomorrow. Cowan with urination, bilateral lower back pain. History of Present Illness The patient is a 51 year old white female with a past medical history of asthma , BPD, hypertension, GERD, DM 2, RIMA, DVT/PE on Xarelto, and recent left ureteral stent placed by Dr. Aguilera on 04/17 who presents to the ED with a cc of urinary burning beginning 10 days ago. Positive nausea, abdominal pain, and lower back pain. Negative vomiting. She feels similarly to before she became septic from a kidney stone in the recent past. She is currently on Ciprofloxacin. She is supposed to follow up with Dr. Aguilera tomorrow, but could not get a hold of them. She denies any other medication changes. She is on Xarelto. Source of History: patient Onset: 10 days ago Position: other () Symptom Intensity: moderate Quality: other (Urinary Burning) Timing: worsening Associated Symptoms: + nausea, + abdominal pain, + back pain, No vomiting Review of Systems See HPI for pertinent positives and negatives. A total of ten systems were reviewed and were otherwise negative. Past Medical & Surgical Medical Problems: (1) Abdominal pain (2) Abdominal pain (3) Abdominal pain (4) Abdominal wall cellulitis (5) Acute hypokalemia (6) Acute renal failure syndrome (7) Ankle pain (8) Asthma (9) Atypical syncope (10) Benign hypertension (11) Bipolar disorder (12) Bowel obstruction (13) Cellulitis (14) CELLULITIS ABDOMEN (15) Cellulitis and abscess of trunk (16) Chronic pain (17) Cirrhosis (18) Contusion of ankle (19) Contusion of periorbital region, left (20) Degenerative joint disease of spine (21) Dehydration (22) Dehydration (23) Depression (24) Diabetes mellitus type 2 (25) DM (diabetes mellitus screen) (26) Drug-seeking behavior (27) DVT (deep venous thrombosis) (28) Exacerbation of chronic back pain (29) Fall (30) Fracture of fourth metatarsal bone of left foot (31) Gastroesophageal reflux disease (32) Hepatic encephalopathy (33) Hernia of abdominal wall (34) Hyperglycemia (35) Hypokalemia (36) Hypokalemia (37) Hypokalemia (38) Hypokalemia (39) Hypothyroid (40) Hypothyroidism (41) Hypoxia (42) Incarcerated ventral hernia (43) Incisional irritation (44) Incisional pain (45) Inguinal lymphadenopathy (46) Insomnia (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 of 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 (49) LUMBAGO (50) Migraine (51) Morbid obesity (52) Morbid obesity (53) Morbid obesity (54) Morbid obesity with BMI of 60.0-69.9, adult (55) Obstructive sleep apnea (56) Pain, dental (57) Rectal bleeding (58) Renal colic on right side (59) Renal insufficiency (60) Renal insufficiency (61) SBO (small bowel obstruction) (62) Septic shock (63) Seroma, postoperative (64) Sleep apnea (65) Spinal stenosis (66) Splenomegaly, not elsewhere classified (67) Supraumbilical hernia Surgical Problems: (1) H/O hernia repair (2) H/O knee surgery (3) H/O: hysterectomy (4) History of cholecystectomy (5) Hx of appendectomy Social History Problems: (1) Diabetic neuropathy Family History Cancer Diabetes mellitus Gallbladder disease Heart disease Hypertension Lung disease Social History Smoking Status: Current Every Day Smoker Alcohol Use: none Drug Use: none Marital Status: single, in relationship Housing Status: lives with family Occupation Status: unemployed, disabled Current/Historical Medications Scheduled Carvedilol (Coreg), 12.5 MG PO BID Ciprofloxacin Hcl (Cipro), 500 MG PO BID Duloxetine Hcl (Cymbalta), 60 MG PO BID Escitalopram Oxalate (Lexapro), 20 MG PO QPM Insulin Aspart (Novolog Flexpen), UNITS SC TIDM Insulin Glargine (Lantus Solostar), 75 UNITS SQ BID Levothyroxine Sodium (Levothyroxine Sodium), 200 MG PO DAILY Rivaroxaban (Xarelto), 20 MG PO DAILY Tramadol Hcl (Ultram), 50 MG PO Q8H Scheduled PRN Home O2 Therapy (Oxygen), 3 LITERS NA UD PRN for Shortness of Breath Oxycodone Immediate Rel Tab (Roxicodone Ir), 1-2 TAB PO Q4H PRN for Severe Pain Allergies Coded Allergies: Iodinated Diagnostic Agents (Verified Allergy, Intermediate, hives, 04/27/17 ) Per patient she has had it since without problem (01/25/16 Ioversal given with no pretreats and no mention of rxn; also given Ioversal 11/26/06 with pretreats) Adhesives (Verified Allergy, Mild, RED RASH CAUSED BY PAPER TAPE, 04/27/17) Alprazolam (Verified Allergy, Unknown, MAKES LOOPY,DO AND SAY SILLY THINGS , 04/27/17) Metformin (Verified Allergy, Unknown, HANDS FEET FACE NUMB, 04/27/17) Vancomycin (Verified Adverse Reaction, Severe, renal failure, required dialysis x 3 MONTHS, 04/27/17) Methylparaben (Verified Adverse Reaction, Intermediate, FLUID RETENTION, ) Oxymorphone (Verified Adverse Reaction, Intermediate, FLUID RETENTION, 04/27) Gabapentin (Verified Adverse Reaction, Mild, Aphasia/Speech impairments, ) Sulfa Antibiotics (Verified Adverse Reaction, Mild, GI SYMPTOMS, 04/27/17) Acetaminophen (Verified Adverse Reaction, Unknown, Liver problems., 04/27/17 ) Codeine (Verified Adverse Reaction, Unknown, UPSET STOMACH, 04/27/17) Pregabalin (Verified Adverse Reaction, Unknown, Aphasia/Speech impairments , 04/27/17) Physical Exam Vital Signs Date Time Temp Pulse Resp B/P (MAP) Pulse Ox O2 Delivery O2 Flow Rate FiO2 04/27/17 16:48 59 18 152/97 95 Room Air 04/27/17 15:34 60 18 132/81 97 Room Air 04/27/17 13:52 36.9 67 19 161/95 95 Room Air Physical Exam GENERAL: Awake, alert, well-appearing, NAD HENT: Normocephalic, atraumatic. EYES: Normal conjunctiva. Sclera non-icteric. NECK: Supple. No nuchal rigidity. FROM. RESPIRATORY: CTAB, no rhonchi, wheezing, crackles CARDIAC: RRR, no MRG ABDOMEN: Soft and obese, suprapubic discomfort, multiple surgical scars present , nonsurgical abdomen, no growth or maceration in the intertriginous folds, ND, BS+ MSK: No chest wall TTP, no LE edema NEURO: GCS 15, CN 2-12 intact, moves all 4s on command SKIN: No rash or jaundice noted. Medical Decision & Procedures ER Provider Diagnostic Interpretation: Radiology results as stated below per my review and radiologist interpretation: CHEST ONE VIEW PORTABLE CLINICAL HISTORY: Pain, radiating to the abdomen. COMPARISON STUDY: 04/17/2017 FINDINGS: The right internal jugular central venous catheter has been removed. The heart remains enlarged. There is no focal pulmonary consolidation. There is no failure. There are no pleural effusions.[ IMPRESSION: No active disease in the chest. Electronically signed by: Romie Lincoln M.D. 04/27/2017 3:48 PM Dictated Date/Time: 04/27/2017 3:47 PM ABDOMEN AND PELVIS CT WITHOUT CONTRAST CT DOSE: 1758.05 mGy.cm HISTORY: Acute generalized abdominal pain with history of kidney stones acute abdominal pain TECHNIQUE: Multiaxial CT images of the abdomen and pelvis were performed without contrast. A dose lowering technique was utilized adhering to the principles of ALARA. COMPARISON STUDY: CT 02/09/2017. FINDINGS: Lung bases are clear. No pneumatosis or pneumoperitoneum identified. Imaged inferior cardiac chambers are mildly enlarged. Mural fibrofatty changes and left ventricular apex compatible with prior myocardial infarction. Mitral annular calcifications noted. Prior cholecystectomy. Cirrhotic morphology of the liver redemonstrated without ascites. Spleen is again enlarged, 16 cm. Mild upper abdominal lymphadenopathy is again seen with periportal lymph nodes measuring up to 14 mm in short axis. Moderate diffuse pancreatic atrophy. Adrenal glands are within normal limits. Left ureteral stent is in place with a 4 mm calculus noted within the region of the left ureteropelvic junction, image 230 series 3. No additional ureteral calculi identified. No obstructive uropathy. Right kidney and right ureter are within normal limits. Urinary bladder is partially collapsed. Prior hysterectomy. No adnexal mass lesions identified. Moderate atherosclerosis of the aorta. There is no bowel obstruction or focal bowel wall thickening identified. Moderate stool volume involves the rectosigmoid and also within the transverse colon. Surgical clips in cecum suggests prior appendectomy. Morbid obesity noted with post surgical changes of the anterior abdominal wall. Ventral small fat filled abdominal wall hernias noted, diastases 1.9 cm on image 125 series 3 which is supraumbilical. Additional small fat filled anterior abdominal wall hernias are noted. Soft tissues are otherwise unremarkable. Multilevel degenerative changes of the spine with advanced intervertebral disc space narrowing and facet arthropathy. IMPRESSION: 1. Left sided ureteral stent in place with 4 mm calculus present at the left ureteropelvic junction. No obstructive uropathy. 2. Cirrhosis with splenomegaly compatible with portal hypertension. 3. Unchanged nonspecific mild adenopathy of the upper abdomen. 4. Prior cholecystectomy and appendectomy. Electronically signed by: Rancho Rees M.D. 04/27/2017 3:16 PM Dictated Date/Time: 04/27/2017 3:03 PM Laboratory Results 04/27/17 13:40 Red Blood Count 3.55, Mean Corpuscular Volume 98.9, Mean Corpuscular Hemoglobin 33.2, Mean Corpuscular Hemoglobin Concent 33.6, Mean Platelet Volume 8.7, Neutrophils (%) (Auto) 61.5, Lymphocytes (%) (Auto) 28.0, Monocytes (%) (Auto) 8.0, Eosinophils (%) (Auto) 1.9, Basophils (%) (Auto) 0.3, Neutrophils # (Auto) 4.32, Lymphocytes # (Auto) 1.96, Monocytes # (Auto) 0.56, Eosinophils # (Auto) 0.13, Basophils # (Auto) 0.02 04/27/17 13:40 Test 04/27/17 13:40 04/27/17 14:26 White Blood Count 7.01 K/uL (4.8-10.8) Red Blood Count 3.55 M/uL (4.2-5.4) Hemoglobin 11.8 g/dL (12.0-16.0) Hematocrit 35.1 % (37-47) Mean Corpuscular Volume 98.9 fL (80-100) Mean Corpuscular Hemoglobin 33.2 pg (25-34) Mean Corpuscular Hemoglobin Concent 33.6 g/dl (32-36) Platelet Count 142 K/uL (130-400) Mean Platelet Volume 8.7 fL (7.4-10.4) Neutrophils (%) (Auto) 61.5 % Lymphocytes (%) (Auto) 28.0 % Monocytes (%) (Auto) 8.0 % Eosinophils (%) (Auto) 1.9 % Basophils (%) (Auto) 0.3 % Neutrophils # (Auto) 4.32 K/uL (1.4-6.5) Lymphocytes # (Auto) 1.96 K/uL (1.2-3.4) Monocytes # (Auto) 0.56 K/uL (0.11-0.59) Eosinophils # (Auto) 0.13 K/uL (0-0.5) Basophils # (Auto) 0.02 K/uL (0-0.2) RDW Standard Deviation 67.9 fL (36.4-46.3) RDW Coefficient of Variation 18.7 % (11.5-14.5) Immature Granulocyte % (Auto) 0.3 % Immature Granulocyte # (Auto) 0.02 K/uL (0.00-0.02) Anion Gap 5.0 mmol/L (3-11) Est Creatinine Clear Calc Drug Dose 77.0 ml/min Estimated GFR () 67.9 Estimated GFR (Non- 58.6 BUN/Creatinine Ratio 8.8 (10-20) Calcium Level 8.3 mg/dl (8.5-10.1) Total Bilirubin 1.1 mg/dl (0.2-1) Direct Bilirubin 0.2 mg/dl (0-0.2) Aspartate Amino Transf (AST/SGOT) 21 U/L (15-37) Alanine Aminotransferase (ALT/SGPT) 20 U/L (12-78) Alkaline Phosphatase 92 U/L (45-117) Total Protein 7.2 gm/dl (6.4-8.2) Albumin 2.8 gm/dl (3.4-5.0) Lipase 44 U/L (73-393) Urine Color YELLOW Urine Appearance CLEAR (CLEAR) Urine pH 7.5 (4.5-7.5) Urine Specific [place] 1.015 (1.000-1.030) Urine Protein NEG (NEG) Urine Glucose (UA) NEG (NEG) Urine Ketones NEG (NEG) Urine Occult Blood NEG (NEG) Urine Nitrite NEG (NEG) Urine Bilirubin NEG (NEG) Urine Urobilinogen NEG (NEG) Urine Leukocyte Esterase MODERATE (NEG) Urine WBC (Auto) 10-30 /hpf (0-5) Urine RBC (Auto) 0-4 /hpf (0-4) Urine Hyaline Casts (Auto) 1-5 /lpf (0-5) Urine Epithelial Cells (Auto) >30 /lpf (0-5) Urine Bacteria (Auto) NEG (NEG) Laboratory results reviewed by me Medications Administered Medications (Trade) Dose Ordered Sig/Nelda Route Start Time Stop Time Status Last Admin Dose Admin Ondansetron HCl (Zofran Inj) 4 mg NOW STAT IV 04/27/17 15:23 04/27/17 15:25 DC 04/27/17 15:34 4 MG Tramadol HCl (Ultram Tab) 50 mg NOW STAT PO 04/27/17 15:23 04/27/17 15:25 DC 04/27/17 15:34 50 MG ED Course 1410: The patient was evaluated in room A4B. A complete history and physical exam was performed. 1700: I reevaluated the patient. Discussed results and discharge instructions: She verbalized understanding and agreement. The patient is ready for discharge. Medical Decision The patient is a 51 year old white female with a past medical history of asthma , BPD, hypertension, GERD, DM 2, RIMA, DVT/PE on Xarelto, and recent left ureteral stent placed by Dr. Aguilera on 04/17 who presents to the ED with a cc of urinary burning beginning 10 days ago. Positive nausea, abdominal pain, and lower back pain. Negative vomiting. Differential diagnosis: Etiologies such as renal colic, appendicitis, diverticulitis, mesenteric ischemia, aortic pathology, infections, inflammatory bowel disease, PUD, biliary pathology, UTI, as well as others were entertained. Patient was seen and evaluated the bedside. Patient does have a recent history of a left ureteral stent that was placed and did have some septic shock at the time. She was complaining of some burning urination as well as some mild abdominal tenderness. On exam the patient is very well-appearing afebrile low with stable vital signs. Patient does not show any skin changes and patient does have mild suprapubic discomfort. There are no skin changes in the intertriginous folds. Patient did have blood work that was completed along with a non-con CT scan of the abdomen. Patient does have some issues with pain seeking so she was limited with what she was given for nausea as well as pain control. Patient's blood work did show some chronic anemia. The patient does not have an elevated white blood cell count. Patient has normal kidney function. Patient's CT the abdomen pelvis shows the stent is well-appearing not displaced and she does have a 4 mm nonobstructing stone. Patient's urinalysis does show epithelial cells. Patient's currently being treated and the patient does not have any nitrites urine bacteria. I told the patient that she should just continue her ciprofloxacin. I do not believe that the patient has a medical or surgical need to stay in the hospital this time. Patient was told that she needs to follow-up with her urologist tomorrow. Patient was deemed suitable for outpatient follow-up and treatment. Patient was given strict follow-up, discharge, and return precautions. All questions were answered. Patient was deemed suitable for outpatient follow-up at this time. Patient agreed with the plan of care and was safely discharged home. Medication Reconcilliation Current Medication List: was personally reviewed by me Blood Pressure Screening Patient's blood pressure: Elevated blood pressure Blood pressure disposition: Elevated BP felt to be situational Patient's blood pressure has resolved to normal levels. Impression Primary Impression: Post-op pain Additional Impressions: Anemia Hypokalemia Scribe Attestation The scribe's documentation has been prepared under my direction and personally reviewed by me in its entirety. I confirm that the note above accurately reflects all work, treatment, procedures, and medical decision making performed by me. Departure Information Dispostion Home / Self-Care Prescriptions Tramadol Hcl (ULTRAM) 50 Mg Tab 50 MG PO Q8H, #12 TAB PRN PAIN Prov: Salvador Wolf M.D. 04/27/17 Referrals Agustina Cummings M.D. (PCP) Forms HOME CARE DOCUMENTATION FORM, IMPORTANT VISIT INFORMATION Patient Instructions [facility], Stents Ureteral Additional Instructions Please return to the emergency department if you have worsening or recurrent symptoms not amenable to at-home treatment. Please call for a follow-up appointment with her primary care physician. Please take your medications as prescribed. If you have other concerns and/or complaints please feel free to also call your primary care physician's office or return the ED for further evaluation, management, and treatment. Please keep your follow-up appointment with your urologist tomorrow. Take your medications as prescribed. If taking an antibiotic consider taking a probiotic and/or eating yogurt, but at the least, please take with food as it can cause upset stomach. Continue to take your antibiotics. You have been examined and treated today on an emergency basis only. This is not a substitute for, or an effort to provide, complete comprehensive medical care. It is impossible to recognize and treat all injuries or illnesses in a single emergency department visit. It is therefore important that you follow up closely with [facility], your PCP, and/or your specialist(s). Call as soon as possible for an appointment. Thank you for your time and consideration. I look forward to speaking with you again soon. Please don't hesitate to call us if you have any questions. Problem Qualifiers Additional Impressions: Anemia Anemia type: unspecified type Qualified Codes: D64.9 - Anemia, unspecified
[2017-04-27 14:50] LABS: BASO % 0.3 %; BASO ABS # 0.02 K/uL (0-0.2); EOS % 1.9 %; EOS ABS # 0.13 K/uL (0-0.5); HEMATOCRIT 35.1 % (37-47); HEMOGLOBIN 11.8 g/dL (12.0-16.0); IG# 0.02 K/uL (0.00-0.02); LYMPH ABS # 1.96 K/uL (1.2-3.4); MEAN CELL VOLUME 98.9 fL (80-100); MEAN CORPUSCULAR HEMOGLOBIN 33.2 pg (25-34); MEAN CORPUSCULAR HGB CONC 33.6 g/dl (32-36); MEAN PLATELET VOLUME 8.7 fL (7.4-10.4); MONO ABS # 0.56 K/uL (0.11-0.59); NEUT % 61.5 %; NEUT ABS # 4.32 K/uL (1.4-6.5); PLATELET COUNT 142 K/uL (130-400); RED CELL DISTRIBUTION WIDTH CV 18.7 % (11.5-14.5); RED CELL DISTRIBUTION WIDTH SD 67.9 fL (36.4-46.3); WHITE BLOOD COUNT 7.01 K/uL (4.8-10.8)
[2017-04-27 15:11] LABS: ALBUMIN 2.8 gm/dl (3.4-5.0); CALCIUM 8.3 mg/dl (8.5-10.1); CREATININE 1.08 mg/dl (0.60-1.20); POTASSIUM 3.4 mmol/L (3.5-5.1); TOTAL PROTEIN 7.2 gm/dl (6.4-8.2)
[2017-04-27] MEDS ORDERED: TRAMADOL HCL 50 MG TAB PO STA (15:23)
[2017-04-27] MEDS ORDERED: ONDANSETRON INJ 2 MG/ML 2 ML VIAL IV STA (15:23)
--- NOTE | 2017-04-27 15:49 | DIAGNOSTIC IMAGING REPORT ---
CHEST ONE VIEW PORTABLE CLINICAL HISTORY: Pain, radiating to the abdomen. COMPARISON STUDY: 04/17/2017 FINDINGS: The right internal jugular central venous catheter has been removed. The heart remains enlarged. There is no focal pulmonary consolidation. There is no failure. There are no pleural effusions.[ IMPRESSION: No active disease in the chest. Electronically signed by: Romie Lincoln M.D. 04/27/2017 3:48 PM Dictated Date/Time: 04/27/2017 3:47 PM
--- NOTE | 2017-04-27 16:18 | DIAGNOSTIC IMAGING REPORT ---
ABDOMEN AND PELVIS CT WITHOUT CONTRAST CT DOSE: 1758.05 mGy.cm HISTORY: Acute generalized abdominal pain with history of kidney stones acute abdominal pain TECHNIQUE: Multiaxial CT images of the abdomen and pelvis were performed without contrast. A dose lowering technique was utilized adhering to the principles of ALARA. COMPARISON STUDY: CT 02/09/2017. FINDINGS: Lung bases are clear. No pneumatosis or pneumoperitoneum identified. Imaged inferior cardiac chambers are mildly enlarged. Mural fibrofatty changes and left ventricular apex compatible with prior myocardial infarction. Mitral annular calcifications noted. Prior cholecystectomy. Cirrhotic morphology of the liver redemonstrated without ascites. Spleen is again enlarged, 16 cm. Mild upper abdominal lymphadenopathy is again seen with periportal lymph nodes measuring up to 14 mm in short axis. Moderate diffuse pancreatic atrophy. Adrenal glands are within normal limits. Left ureteral stent is in place with a 4 mm calculus noted within the region of the left ureteropelvic junction, image 230 series 3. No additional ureteral calculi identified. No obstructive uropathy. Right kidney and right ureter are within normal limits. Urinary bladder is partially collapsed. Prior hysterectomy. No adnexal mass lesions identified. Moderate atherosclerosis of the aorta. There is no bowel obstruction or focal bowel wall thickening identified. Moderate stool volume involves the rectosigmoid and also within the transverse colon. Surgical clips in cecum suggests prior appendectomy. Morbid obesity noted with post surgical changes of the anterior abdominal wall. Ventral small fat filled abdominal wall hernias noted, diastases 1.9 cm on image 125 series 3 which is supraumbilical. Additional small fat filled anterior abdominal wall hernias are noted. Soft tissues are otherwise unremarkable. Multilevel degenerative changes of the spine with advanced intervertebral disc space narrowing and facet arthropathy. IMPRESSION: 1. Left sided ureteral stent in place with 4 mm calculus present at the left ureteropelvic junction. No obstructive uropathy. 2. Cirrhosis with splenomegaly compatible with portal hypertension. 3. Unchanged nonspecific mild adenopathy of the upper abdomen. 4. Prior cholecystectomy and appendectomy. Electronically signed by: Rancho Rees M.D. 04/27/2017 3:16 PM Dictated Date/Time: 04/27/2017 3:03 PM
[2017-04-27 16:48] VITALS: BP 152/97; PULSE 59; O2SAT 95
[2017-04-27] MEDS ORDERED: TRAM-453 PO (16:49)
[2017-05-01] MEDS ORDERED: OXYC-737 PO (23:54)
[2017-05-05] MEDS ORDERED: NITR1CAP33 PO (13:34)
[2017-05-23] MEDS ORDERED: DTR5 PO (11:08)
[2017-05-23] MEDS ORDERED: LSX40 PO (11:08)
[2017-05-25] MEDS ORDERED: TAMS0.4C38 PO (13:28)
[2017-05-25] MEDS ORDERED: OXYC-90 PO (13:28)
[2017-06-10] MEDS ORDERED: POTA-639 PO (14:25)
[2017-06-27] MEDS ORDERED: POTA-639 PO (01:07)
[2017-07-21] MEDS ORDERED: NITR1CAP16 PO (08:44)
[2017-07-22] MEDS ORDERED: FRS/40 PO (01:07)
[2017-07-22] MEDS ORDERED: XRL20 PO (16:47)
[2017-07-24] MEDS ORDERED: OXYC-737 PO (12:19)
[2017-09-10] MEDS ORDERED: OXYC-90 PO (17:26)
[2017-09-25] MEDS ORDERED: OXGN (20:37)
[2017-09-25] MEDS ORDERED: RANI300T PO (22:52)
[2017-10-15] MEDS ORDERED: PRED20TA2 PO (19:19)
[2017-10-16] MEDS ORDERED: NYSS/ MT (21:40)
[2017-10-16] MEDS ORDERED: DICL1GEL12 TOP (22:59)
[2017-10-16] MEDS ORDERED: CYCL10TA6 PO (22:59)
[2017-10-17] MEDS ORDERED: PRED20TA PO (23:15)
[2017-10-17] MEDS ORDERED: CYCL10TA6 PO (23:15)
[2017-11-04] MEDS ORDERED: NYSCR30 TOP (16:28)
[2017-11-04] MEDS ORDERED: RANI300T2 PO (16:28)
[2017-11-04] MEDS ORDERED: OXYC-164 PO (16:28)
[2017-11-04] MEDS ORDERED: LXP/20 PO (19:07)
[2017-11-04] MEDS ORDERED: CYM60 PO (19:07)
[2017-11-04] MEDS ORDERED: INSDGIPEN SQ (19:09)
[2017-11-04] MEDS ORDERED: NVLGI/PEN SQ (20:31)
[2017-11-04] MEDS ORDERED: VNTHFA/IN INH (21:13)
[2017-11-04] MEDS ORDERED: DICY10CA12 PO (21:29)
[2017-11-04] MEDS ORDERED: SYN200 PO (21:29)
[2017-11-04] MEDS ORDERED: ATR10 PO (21:29)
[2017-11-04] MEDS ORDERED: FLX10 PO (21:29)
[2017-11-04] MEDS ORDERED: OXYC-609 PO (21:40)
[2017-11-04] MEDS ORDERED: THY/60 PO (21:40)
[2017-11-04] MEDS ORDERED: XRL20 PO (21:40)
[2017-11-04] MEDS ORDERED: CRG125 PO (21:40)
[2017-11-04] MEDS ORDERED: AZIT500T26 PO (22:58)
[2017-11-04] MEDS ORDERED: DICL1GEL12 TOP (23:15)
== END 2017-04-27 16:55 | disposition home or self-care (01) ==
LOC: C.EDB 13:50 → C.EDA 16:55
DX: G89.18 Other acute postprocedural pain (principal); D64.9 Anemia, unspecified; E87.6 Hypokalemia; R30.9 Painful micturition, unspecified; Z96.0 Presence of urogenital implants; N20.1 Calculus of ureter; I10 Essential (primary) hypertension; F32.9 Major depressive disorder, single episode, unspecified; E11.40 Type 2 diabetes mellitus with diabetic neuropathy, unspecified; K74.60 Unspecified cirrhosis of liver; R16.1 Splenomegaly, not elsewhere classified; E03.9 Hypothyroidism, unspecified; G47.33 Obstructive sleep apnea (adult) (pediatric); M48.00 Spinal stenosis, site unspecified; F17.200 Nicotine dependence, unspecified, uncomplicated; Z86.718 Personal history of other venous thrombosis and embolism; Z79.4 Long term (current) use of insulin; Z79.01 Long term (current) use of 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s; Z90.710 Acquired absence of both cervix and uterus; Z90.49 Acquired absence of other specified parts of digestive tract; Z90.89 Acquired absence of other organs; Z80.9 Family history of malignant neoplasm, unspecified; Z83.3 Family history of diabetes mellitus; Z82.49 Family history of ischemic heart disease and other diseases of the circulatory system

== ENCOUNTER → 2017-04-28 | Outpatient (CLI) | payer OTHER ==
[~2017-04-28] MED LIST changes: +CARV12.52 PO; +INSDGIPEN SQ; +NVLGI/PEN SC; +OXGN; -OXYC-737 PO; +OXYC1TAB3 PO; +TRAM-453 PO; +XRL20 PO
== END | disposition home or self-care (01) ==
LOC: C.LABSPEC 17:42
PROVIDERS: ATTEND Urology
DX: N20.1 Calculus of ureter (principal)

== ENCOUNTER 2017-05-01 10:31 | Emergency (ER) | payer OTHER ==
[~2017-05-01] VITALS: Ht 160 cm; Wt 156.6 kg
[2017-05-01 10:38] VITALS: TEMP 36.8; Ht 160 cm; Wt 156.6 kg
[2017-05-01] MEDS ORDERED: OXYCODONE HCL IR 5 MG TAB (IMMEDIATE RELEASE) PO STA (11:07)
--- NOTE | 2017-05-01 11:25 | EMERGENCY ROOM VISIT NOTE ---
History First contact with patient: 10:54 Chief Complaint: KIDNEY STONE Stated Complaint: KIDNEY STONE STENT History of Present Illness The patient is a 51 year old female who presents to the Emergency Room via private vehicle with complaints of "kidney stone, stent, pain". The patient states that she is postoperative from a stent that was placed to allow a kidney stone to pass. She notes she was recently here for septic shock as well. She ran out of her pain medication yesterday. She notes the pain is the same pain she has had before but it is now worse. She denies any chest pain or shortness of breath. She notes that she called the on-call urologist today who indicated that because of her level of pain going to the emergency department is recommended. She notes that the pain is in the bladder region as well as the left flank. She finished Cipro 2 days ago. She notes constant dysuria of which is unchanged. She tried Advil without relief. She feels nauseous. She denies any vomiting, shortness of breath or chest pain. Review of Systems A complete 10-point Review of Systems was discussed with the patient, with pertinent positives and negatives listed in the History of Present Illness. All remaining Review of Systems questions can be considered negative unless otherwise specified. Past Medical/Surgical History Medical Problems: (1) Abdominal pain (2) Abdominal pain (3) Abdominal pain (4) Abdominal wall cellulitis (5) Acute hypokalemia (6) Acute renal failure syndrome (7) Ankle pain (8) Asthma (9) Atypical syncope (10) Benign hypertension (11) Bipolar disorder (12) Bowel obstruction (13) Cellulitis (14) CELLULITIS ABDOMEN (15) Cellulitis and abscess of trunk (16) Chronic pain (17) Cirrhosis (18) Contusion of ankle (19) Contusion of periorbital region, left (20) Degenerative joint disease of spine (21) Dehydration (22) Dehydration (23) Depression (24) Diabetes mellitus type 2 (25) DM (diabetes mellitus screen) (26) Drug-seeking behavior (27) DVT (deep venous thrombosis) (28) Exacerbation of chronic back pain (29) Fall (30) Fracture of fourth metatarsal bone of left foot (31) Gastroesophageal reflux disease (32) Hepatic encephalopathy (33) Hernia of abdominal wall (34) Hyperglycemia (35) Hypokalemia (36) Hypokalemia (37) Hypokalemia (38) Hypokalemia (39) Hypothyroid (40) Hypothyroidism (41) Hypoxia (42) Incarcerated ventral hernia (43) Incisional irritation (44) Incisional pain (45) Inguinal lymphadenopathy (46) Insomnia (47) [facility] (current) use of insulin (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 (49) LUMBAGO (50) Migraine (51) Morbid obesity (52) Morbid obesity (53) Morbid obesity (54) Morbid obesity with BMI of 60.0-69.9, adult (55) Obstructive sleep apnea (56) Pain, dental (57) Rectal bleeding (58) Renal colic on right side (59) Renal insufficiency (60) Renal insufficiency (61) SBO (small bowel obstruction) (62) Septic shock (63) Seroma, postoperative (64) Sleep apnea (65) Spinal stenosis (66) Splenomegaly, not elsewhere classified (67) Supraumbilical hernia Surgical Problems: (1) H/O hernia repair (2) H/O knee surgery (3) H/O: hysterectomy (4) History of cholecystectomy (5) Hx of appendectomy Social History Problems: (1) Diabetic neuropathy Family History Cancer Diabetes mellitus Gallbladder disease Heart disease Hypertension Lung disease Social History Smoking Status: Current Every Day Smoker Alcohol Use: none Drug Use: none Marital Status: single, in relationship Housing Status: lives with family Occupation Status: unemployed, disabled Current/Historical Medications Scheduled Carvedilol (Coreg), 12.5 MG PO BID Duloxetine Hcl (Cymbalta), 60 MG PO BID Escitalopram Oxalate (Lexapro), 20 MG PO QPM Insulin Aspart (Novolog Flexpen), UNITS SC TIDM Insulin Glargine (Lantus Solostar), 75 UNITS SQ BID Levothyroxine Sodium (Levothyroxine Sodium), 200 MCG PO DAILY Rivaroxaban (Xarelto), 20 MG PO DAILY Scheduled PRN Home O2 Therapy (Oxygen), 3 LITERS NA UD PRN for Shortness of Breath Physical Exam Vital Signs Date Time Temp Pulse Resp B/P (MAP) Pulse Ox O2 Delivery O2 Flow Rate FiO2 05/01/17 14:02 51 21 147/96 96 05/01/17 13:40 56 22 147/96 97 Room Air 05/01/17 12:36 52 12 148/76 100 Room Air 05/01/17 11:46 52 21 160/87 99 Room Air 05/01/17 11:46 49 05/01/17 11:44 99 Room Air 05/01/17 10:38 36.8 52 30 159/83 97 Room Air Physical Exam VITAL SIGNS - Vital signs and nursing notes were reviewed. Stable. Respiratory rate elevated at 30. GENERAL -51-year-old female appearing her stated age who is in no acute distress. Communicates well with provider and answers questions appropriately. SKIN - Without rashes. No petechial or meningeal rash. HEAD - NC/AT. EYES - Sclera anicteric. EARS - No deformities of external structures noted on gross examination bilaterally. NOSE - Midline and without cyanosis. No epistaxis or purulent drainage noted. MOUTH/OROPHARYNX - Without perioral cyanosis. LUNGS - Chest wall symmetric without accessory muscle use, intercostals retractions, or central cyanosis. Normal vesicular breath sounds CTA B/L. No wheezes, rales, or rhonchi appreciated. CARDIAC - RRR with S1/S2. No murmur, rubs, or gallops appreciated. ABDOMEN - Abdominal contour without emergent process and without pulsations or visible masses. BS normoactive all four quadrants. Tenderness in the left lower quadrant region and left flank.. No palpable masses, hepatosplenomegaly , or ascites noted. Medical Decision & Procedures ER Provider Diagnostic Interpretation: RENAL ULTRASOUND CLINICAL HISTORY: Flank pain, stent in place. COMPARISON STUDY: CT of the abdomen and pelvis April 27, 2017 and renal ultrasound April 16, 2017. TECHNIQUE: Sonography of the kidneys and the urinary bladder was performed. FINDINGS: A left ureteral stent is in place. There is no hydronephrosis. The right kidney measures 11.4 cm in maximal dimension and the left measures 11.3 cm. Neither ureteral jet was identified. Renal echogenicity, size and cortical thickness are normal. No calculi are identified although these may be occult by sonography. IMPRESSION: No hydronephrosis. Left ureteral stent in place. Electronically signed by: Vini Alvarado M.D. 05/01/2017 1:14 PM Dictated Date/Time: 05/01/2017 1:13 PM KUB CLINICAL HISTORY: Flank pain, stent in place. COMPARISON STUDY: KUB April 18, [address] of the abdomen and pelvis April 27, 2017. FINDINGS: Pelvic calcifications were shown to represent phleboliths on prior CT. There are cholecystectomy clips. A left ureteral stent is in place. A 6 mm calculus at the left ureteropelvic junction is similar position to prior CT of April 27, 2017. Alternatively, these could reflect several small adjacent calculi. IMPRESSION: Left ureteral stent in place. No change in position of a 6 mm left ureteropelvic junction calculus/calculi. Electronically signed by: Vini Alvarado M.D. 05/01/2017 1:16 PM Dictated Date/Time: 05/01/2017 1:15 PM Laboratory Results 05/01/17 11:38 Red Blood Count 3.94, Mean Corpuscular Volume 99.7, Mean Corpuscular Hemoglobin 33.2, Mean Corpuscular Hemoglobin Concent 33.3, Mean Platelet Volume 9.7, Neutrophils (%) (Auto) 61.5, Lymphocytes (%) (Auto) 29.0, Monocytes (%) (Auto) 7.2, Eosinophils (%) (Auto) 1.5, Basophils (%) (Auto) 0.4, Neutrophils # (Auto) 4.11, Lymphocytes # (Auto) 1.94, Monocytes # (Auto) 0.48, Eosinophils # (Auto) 0.10, Basophils # (Auto) 0.03 05/01/17 11:38 Test 05/01/17 10:49 05/01/17 11:38 05/01/17 11:39 Urine Color YELLOW Urine Appearance CLEAR (CLEAR) Urine pH 8.0 (4.5-7.5) Urine Specific Soldier 1.013 (1.000-1.030) Urine Protein NEG (NEG) Urine Glucose (UA) NEG (NEG) Urine Ketones NEG (NEG) Urine Occult Blood 2+ (NEG) Urine Nitrite NEG (NEG) Urine Bilirubin NEG (NEG) Urine Urobilinogen NEG (NEG) Urine Leukocyte Esterase SMALL (NEG) Urine WBC (Auto) 10-30 /hpf (0-5) Urine RBC (Auto) >30 /hpf (0-4) Urine Hyaline Casts (Auto) 1-5 /lpf (0-5) Urine Epithelial Cells (Auto) >30 /lpf (0-5) Urine Bacteria (Auto) NEG (NEG) White Blood Count 6.69 K/uL (4.8-10.8) Red Blood Count 3.94 M/uL (4.2-5.4) Hemoglobin 13.1 g/dL (12.0-16.0) Hematocrit 39.3 % (37-47) Mean Corpuscular Volume 99.7 fL (80-100) Mean Corpuscular Hemoglobin 33.2 pg (25-34) Mean Corpuscular Hemoglobin Concent 33.3 g/dl (32-36) Platelet Count 144 K/uL (130-400) Mean Platelet Volume 9.7 fL (7.4-10.4) Neutrophils (%) (Auto) 61.5 % Lymphocytes (%) (Auto) 29.0 % Monocytes (%) (Auto) 7.2 % Eosinophils (%) (Auto) 1.5 % Basophils (%) (Auto) 0.4 % Neutrophils # (Auto) 4.11 K/uL (1.4-6.5) Lymphocytes # (Auto) 1.94 K/uL (1.2-3.4) Monocytes # (Auto) 0.48 K/uL (0.11-0.59) Eosinophils # (Auto) 0.10 K/uL (0-0.5) Basophils # (Auto) 0.03 K/uL (0-0.2) RDW Standard Deviation 67.5 fL (36.4-46.3) RDW Coefficient of Variation 18.5 % (11.5-14.5) Immature Granulocyte % (Auto) 0.4 % Immature Granulocyte # (Auto) 0.03 K/uL (0.00-0.02) Anion Gap 5.0 mmol/L (3-11) Est Creatinine Clear Calc Drug Dose 90.3 ml/min Estimated GFR () 68.6 Estimated GFR (Non- 59.2 BUN/Creatinine Ratio 6.7 (10-20) Calcium Level 8.6 mg/dl (8.5-10.1) Total Bilirubin 1.1 mg/dl (0.2-1) Aspartate Amino Transf (AST/SGOT) 23 U/L (15-37) Alanine Aminotransferase (ALT/SGPT) 19 U/L (12-78) Alkaline Phosphatase 106 U/L (45-117) Total Protein 7.9 gm/dl (6.4-8.2) Albumin 3.1 gm/dl (3.4-5.0) Globulin 4.8 gm/dl (2.5-4.0) Albumin/Globulin Ratio 0.6 (0.9-2) Lactic Acid Level 2.0 mmol/L (0.4-2.0) Medications Administered Medications (Trade) Dose Ordered Sig/Nelda Route Start Time Stop Time Status Last Admin Dose Admin Oxycodone HCl (Roxicodone Immediate Rel Tab) 5 mg NOW STAT PO 05/01/17 11:07 05/01/17 11:08 DC 05/01/17 11:21 5 MG Ondansetron HCl (Zofran Odt) 4 mg NOW STAT PO 05/01/17 11:47 05/01/17 11:48 DC 05/01/17 11:52 4 MG Tramadol HCl (Ultram Home Pack) 1 homepack UD STAT PO 05/01/17 13:42 05/01/17 13:44 DC 05/01/17 13:58 1 HOMEPACK Medical Decision Patient was seen and evaluated as above. She presents to us today status post ureteral stent placement, with pain in her left abdomen and left flank. She notes is the same pain since the surgery. There have been no fevers. She feels nauseous. She is not short of breath. She is nontoxic on exam. IV access was initiated, and the above workup was performed. There is no concerning leukocytosis or anemia. Metabolic panel reveals no evidence of kidney or liver failure. Bilirubin high at 1.1. Urinalysis reveals 2+ occult blood, tablet secondary to the stent placement. There is no evidence of infection. KUB and ultrasound revealed stent is in place. I discussed the case with the attending physician, and subsequently the on-call urologist, Dr. Jameson. We both believe this is pain secondary to the stent being placed. He notes that his office will call her tomorrow to attempt to schedule an earlier appointment for potential surgical correction. Patient was given oxycodone tablet here for pain and a home pack for tramadol. This is secondary to her known stent and her pain today. She was also given Zofran. She appears stable for outpatient management. Review of her previous visits did reveal that she had septic shock, but does not present as such today. She seemed dynamically stable. She was educated upon management, educated upon worrisome symptoms which to return, had questions about discharge, and was discharged home in good condition. In evaluation treatment this patient the following differential diagnoses entertained: Renal calculi, postoperative pain, sepsis, among others. Medications reviewed. Vital signs reviewed. I believe she is hypertensive secondary to situation. Her respiratory rate greatly improved today. Impression Primary Impression: Left flank pain Departure Information Dispostion Home / Self-Care Condition GOOD Referrals Agustina Cummings M.D. (PCP) Anshu Jameson M.D. Patient Instructions My [facility] Additional Instructions You have been treated in the Emergency Department today for pain related to the stent in place for your kidney stone. You have received narcotic medication here therefore making illegal to drive today. Tramadol 1 tab every 8 hours. Rest. Drink plenty of fluids. You have been provided the contact information for the on-call Urologist. You should contact the Urologist's office tomorrow to establish a follow-up appointment from today's Emergency Department visit. Return to the Emergency Department if your symptoms persist despite the treatment plan outlined above or if you develop the following symptoms: intractable pain, fever, chills, or large amounts of blood in your urine.
[2017-05-01 11:44] VITALS: O2SAT 99
[2017-05-01] MEDS ORDERED: ONDANSETRON 4MG OD TAB PO STA (11:47)
--- NOTE | 2017-05-01 11:53 | EMERGENCY ROOM VISIT NOTE ---
ED Visit Note First contact with patient: 10:54 I did evaluate and examine this patient myself. I did guide management for the patient. I agree with the APC's assessment as discussed. Please see the APC's dictation for further details. I did independently review the x-ray, ultrasound and blood work. She is presenting with left flank pain. She ran out of her oxycodone which she states was helping her. She denies any fever.
[2017-05-01 12:04] LABS: BASO % 0.4 %; BASO ABS # 0.03 K/uL (0-0.2); EOS % 1.5 %; HEMATOCRIT 39.3 % (37-47); HEMOGLOBIN 13.1 g/dL (12.0-16.0); IG# 0.03 K/uL (0.00-0.02); LYMPH ABS # 1.94 K/uL (1.2-3.4); MEAN CELL VOLUME 99.7 fL (80-100); MEAN CORPUSCULAR HEMOGLOBIN 33.2 pg (25-34); MEAN CORPUSCULAR HGB CONC 33.3 g/dl (32-36); MEAN PLATELET VOLUME 9.7 fL (7.4-10.4); MONO % 7.2 %; MONO ABS # 0.48 K/uL (0.11-0.59); NEUT % 61.5 %; NEUT ABS # 4.11 K/uL (1.4-6.5); PLATELET COUNT 144 K/uL (130-400); RED CELL DISTRIBUTION WIDTH CV 18.5 % (11.5-14.5); RED CELL DISTRIBUTION WIDTH SD 67.5 fL (36.4-46.3); WHITE BLOOD COUNT 6.69 K/uL (4.8-10.8)
[2017-05-01 12:21] LABS: ALBUMIN 3.1 gm/dl (3.4-5.0); CALCIUM 8.6 mg/dl (8.5-10.1); CREATININE 1.07 mg/dl (0.60-1.20); POTASSIUM 3.6 mmol/L (3.5-5.1)
[2017-05-01 12:24] LABS: TOTAL PROTEIN 7.9 gm/dl (6.4-8.2)
--- NOTE | 2017-05-01 13:16 | DIAGNOSTIC IMAGING REPORT ---
RENAL ULTRASOUND CLINICAL HISTORY: Flank pain, stent in place. COMPARISON STUDY: CT of the abdomen and pelvis April 27, 2017 and renal ultrasound April 16, 2017. TECHNIQUE: Sonography of the kidneys and the urinary bladder was performed. FINDINGS: A left ureteral stent is in place. There is no hydronephrosis. The right kidney measures 11.4 cm in maximal dimension and the left measures 11.3 cm. Neither ureteral jet was identified. Renal echogenicity, size and cortical thickness are normal. No calculi are identified although these may be occult by sonography. IMPRESSION: No hydronephrosis. Left ureteral stent in place. Electronically signed by: Vini Alvarado M.D. 05/01/2017 1:14 PM Dictated Date/Time: 05/01/2017 1:13 PM
--- NOTE | 2017-05-01 13:18 | DIAGNOSTIC IMAGING REPORT ---
KUB CLINICAL HISTORY: Flank pain, stent in place. COMPARISON STUDY: KUB April 18, [address] of the abdomen and pelvis April 27, 2017. FINDINGS: Pelvic calcifications were shown to represent phleboliths on prior CT. There are cholecystectomy clips. A left ureteral stent is in place. A 6 mm calculus at the left ureteropelvic junction is similar position to prior CT of April 27, 2017. Alternatively, these could reflect several small adjacent calculi. IMPRESSION: Left ureteral stent in place. No change in position of a 6 mm left ureteropelvic junction calculus/calculi. Electronically signed by: Vini Alvarado M.D. 05/01/2017 1:16 PM Dictated Date/Time: 05/01/2017 1:15 PM
[2017-05-01] MEDS ORDERED: TRAMADOL HCL 50 MG HOME PACK PO STA (13:42)
[2017-05-01 14:02] VITALS: BP 147/96; PULSE 51; O2SAT 96
[2017-05-01] MEDS ORDERED: OXYC1TAB3 PO (23:54)
== END 2017-05-01 14:00 | disposition home or self-care (01) ==
LOC: C.EDB 10:32 → C.EDC 14:00
DX: R10.32 Left lower quadrant pain (principal); Z96.0 Presence of urogenital implants; J45.909 Unspecified asthma, uncomplicated; I10 Essential (primary) hypertension; E11.9 Type 2 diabetes mellitus without complications; F17.200 Nicotine dependence, unspecified, uncomplicated; Z79.4 Long term (current) use of insulin; Z79.01 Long term (current) use of 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s; Z83.3 Family history of diabetes mellitus; Z82.49 Family history of ischemic heart disease and other diseases of the circulatory system; Z83.79 Family history of other diseases of the digestive system; Z83.6 Family history of other diseases of the respiratory system

== ENCOUNTER 2017-05-01 21:07 | Emergency (ER) | payer OTHER ==
[~2017-05-01] VITALS: Ht 160 cm; Wt 156.8 kg
[2017-05-01 21:16] VITALS: TEMP 37; Ht 160 cm; Wt 156.8 kg
--- NOTE | 2017-05-01 21:42 | EMERGENCY ROOM VISIT NOTE ---
History Report prepared by [place]: Megha Romano Under the Supervision of: Dr. Flo Leach M.D. First contact with patient: 21:21 Chief Complaint: SHOULDER PAIN Stated Complaint: SIDE PAIN, SHOULDER PAIN History of Present Illness The patient is a 51 year old female who presents to the Emergency Room with complaints of persistent bilateral shoulder pain for two days QUILL SKINNER. She notes bilateral shoulder pain, low jaw pain, and chills. She was recently seen in the ED earlier today for back pain. The patient was also recently seen in the ED two weeks ago for left flank pain and was diagnosed with a kidney stone. The patient had a stent in place. Per roommate, the patient came back from the ED and her face swelled up. She went back to the hospital and was diagnosed with E. coli. The patient then became septic while in the ED and was placed in ICU. The patient was discharged one week ago. The patient was given medication a couple days ago, though she has not taken the treatment yet, because she has not picked up the prescription. She currently takes Toradol, though she notes it has not helped. 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 She has a history of indigestion, sepsis, and cirrhosis. She denies any fevers. Source of History: patient, roommate Onset: two days QUILL SKINNER Position: shoulder (bilateral) Timing: other (persistent) Associated Symptoms: + chills, No fevers Note: She notes bilateral shoulder pain and low jaw pain. Review of Systems See HPI for pertinent positives & negatives. A total of 10 systems reviewed and were otherwise negative. Past Medical & Surgical Medical Problems: (1) Abdominal pain (2) Abdominal pain (3) Abdominal pain (4) Abdominal wall cellulitis (5) Acute hypokalemia (6) Acute renal failure syndrome (7) Ankle pain (8) Asthma (9) Atypical syncope (10) Benign hypertension (11) Bipolar disorder (12) Bowel obstruction (13) Cellulitis (14) CELLULITIS ABDOMEN (15) Cellulitis and abscess of trunk (16) Chronic pain (17) Cirrhosis (18) Contusion of ankle (19) Contusion of periorbital region, left (20) Degenerative joint disease of spine (21) Dehydration (22) Dehydration (23) Depression (24) Diabetes mellitus type 2 (25) DM (diabetes mellitus screen) (26) Drug-seeking behavior (27) DVT (deep venous thrombosis) (28) Exacerbation of chronic back pain (29) Fall (30) Fracture of fourth metatarsal bone of left foot (31) Gastroesophageal reflux disease (32) Hepatic encephalopathy (33) Hernia of abdominal wall (34) Hyperglycemia (35) Hypokalemia (36) Hypokalemia (37) Hypokalemia (38) Hypokalemia (39) Hypothyroid (40) Hypothyroidism (41) Hypoxia (42) Incarcerated ventral hernia (43) Incisional irritation (44) Incisional pain (45) Inguinal lymphadenopathy (46) Insomnia (47) nursing home (current) use of insulin (48) nursing home current use of 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 (49) LUMBAGO (50) Migraine (51) Morbid obesity (52) Morbid obesity (53) Morbid obesity (54) Morbid obesity with BMI of 60.0-69.9, adult (55) Obstructive sleep apnea (56) Pain, dental (57) Rectal bleeding (58) Renal colic on right side (59) Renal insufficiency (60) Renal insufficiency (61) SBO (small bowel obstruction) (62) Septic shock (63) Seroma, postoperative (64) Sleep apnea (65) Spinal stenosis (66) Splenomegaly, not elsewhere classified (67) Supraumbilical hernia Surgical Problems: (1) H/O hernia repair (2) H/O knee surgery (3) H/O: hysterectomy (4) History of cholecystectomy (5) Hx of appendectomy Social History Problems: (1) Diabetic neuropathy Old medical records were reviewed. Nurse's notes were reviewed and I agree with. Family History Cancer Diabetes mellitus Gallbladder disease Heart disease Hypertension Lung disease Social History Smoking Status: Current Every Day Smoker Alcohol Use: none Drug Use: none Marital Status: single, in relationship Housing Status: lives with family Occupation Status: unemployed, disabled Current/Historical Medications Scheduled Carvedilol (Coreg), 12.5 MG PO BID Duloxetine Hcl (Cymbalta), 60 MG PO BID Escitalopram Oxalate (Lexapro), 20 MG PO QPM Insulin Aspart (Novolog Flexpen), UNITS SC TIDM Insulin Glargine (Lantus Solostar), 75 UNITS SQ BID Levothyroxine Sodium (Levothyroxine Sodium), 200 MCG PO DAILY Rivaroxaban (Xarelto), 20 MG PO DAILY Scheduled PRN Home O2 Therapy (Oxygen), 3 LITERS NA UD PRN for Shortness of Breath Oxycodone Immediate Rel Tab (Roxicodone Ir), 1-2 TAB PO Q4H PRN for Severe Pain Allergies Coded Allergies: Iodinated Diagnostic Agents (Verified Allergy, Intermediate, hives, 05/01/17 ) Per patient she has had it since without problem (01/25/16 Ioversal given with no pretreats and no mention of rxn; also given Ioversal 11/26/06 with pretreats) Adhesives (Verified Allergy, Mild, RED RASH CAUSED BY PAPER TAPE, 05/01/17) Alprazolam (Verified Allergy, Unknown, MAKES LOOPY,DO AND SAY SILLY THINGS , 05/01/17) Metformin (Verified Allergy, Unknown, HANDS FEET FACE NUMB, 05/01/17) Vancomycin (Verified Adverse Reaction, Severe, renal failure, required dialysis x 3 MONTHS, 05/01/17) Methylparaben (Verified Adverse Reaction, Intermediate, FLUID RETENTION, ) Oxymorphone (Verified Adverse Reaction, Intermediate, FLUID RETENTION, 05/01) Gabapentin (Verified Adverse Reaction, Mild, Aphasia/Speech impairments, ) Sulfa Antibiotics (Verified Adverse Reaction, Mild, GI SYMPTOMS, 05/01/17) Acetaminophen (Verified Adverse Reaction, Unknown, Liver problems., 05/01/17 ) Codeine (Verified Adverse Reaction, Unknown, UPSET STOMACH, 05/01/17) Pregabalin (Verified Adverse Reaction, Unknown, Aphasia/Speech impairments , 05/01/17) Physical Exam Vital Signs Date Time Temp Pulse Resp B/P (MAP) Pulse Ox O2 Delivery O2 Flow Rate FiO2 05/01/17 23:13 77 22 163/98 94 Room Air 05/01/17 23:04 50 05/01/17 22:28 62 05/01/17 21:16 37.0 69 20 133/76 95 Room Air Physical Exam General: Chronically ill-appearing middle-aged female in no acute distress. HEENT: Normal cephalic atraumatic. Pupils are equal round and reactive to light. Extraocular movements are intact. Oropharynx is pink with moist mucous membranes. No swelling of the mouth lips or tongue. Jaw is TTP bilaterally, no swelling in mouth, lips, or tongue. Neck: Supple with a midline trachea. No meningeal signs or stiffness, no JVD or bruits. No Stridor. Chest: Clear to auscultation bilaterally. No wheezes or rhonchi. No increased work of breathing. Heart: regular rate and rhythm. Abdomen: Soft nontender, nondistended without rebound guarding or rigidity. Extremities: No cyanosis clubbing or edema. No calf tenderness or assymetry. Shoulders: Reproducible tenderness bilaterally without redness or warmth. Spine/Back. Non tender to palpation. No CVA tenderness Skin: Good turgor without rashes. Neurologic exam: Cranial nerves two through 12 are intact. Motor and sensation are intact and symmetrical throughout. Medical Decision & Procedures ER Provider Diagnostic Interpretation: Radiology results as stated below per my review and radiologist interpretation: Cardiomegaly, no acute infiltrate, no acute failure, and no pneumothorax. CHEST ONE VIEW PORTABLE CLINICAL HISTORY: Chest pain. COMPARISON STUDY: Chest radiograph April 27, 2017. FINDINGS: Mild cardiomegaly is unchanged. There is no evidence for pulmonary edema. No consolidation is identified. There is no pneumothorax or pleural effusion. The appearance of the chest is unchanged. IMPRESSION: No acute cardiopulmonary findings. No change in appearance of the chest. Electronically signed by: Vini Alvarado M.D. 05/01/2017 10:08 PM Dictated Date/Time: 05/01/2017 10:07 PM Laboratory Results 05/01/17 22:29 Red Blood Count 3.68, Mean Corpuscular Volume 99.7, Mean Corpuscular Hemoglobin 33.4, Mean Corpuscular Hemoglobin Concent 33.5, Mean Platelet Volume 9.4, Neutrophils (%) (Auto) 61.3, Lymphocytes (%) (Auto) 28.9, Monocytes (%) (Auto) 7.7, Eosinophils (%) (Auto) 1.6, Basophils (%) (Auto) 0.3, Neutrophils # (Auto) 5.37, Lymphocytes # (Auto) 2.54, Monocytes # (Auto) 0.68, Eosinophils # (Auto) 0.14, Basophils # (Auto) 0.03 05/01/17 22:29 Test 05/01/17 22:29 White Blood Count 8.78 K/uL (4.8-10.8) Red Blood Count 3.68 M/uL (4.2-5.4) Hemoglobin 12.3 g/dL (12.0-16.0) Hematocrit 36.7 % (37-47) Mean Corpuscular Volume 99.7 fL (80-100) Mean Corpuscular Hemoglobin 33.4 pg (25-34) Mean Corpuscular Hemoglobin Concent 33.5 g/dl (32-36) Platelet Count 134 K/uL (130-400) Mean Platelet Volume 9.4 fL (7.4-10.4) Neutrophils (%) (Auto) 61.3 % Lymphocytes (%) (Auto) 28.9 % Monocytes (%) (Auto) 7.7 % Eosinophils (%) (Auto) 1.6 % Basophils (%) (Auto) 0.3 % Neutrophils # (Auto) 5.37 K/uL (1.4-6.5) Lymphocytes # (Auto) 2.54 K/uL (1.2-3.4) Monocytes # (Auto) 0.68 K/uL (0.11-0.59) Eosinophils # (Auto) 0.14 K/uL (0-0.5) Basophils # (Auto) 0.03 K/uL (0-0.2) RDW Standard Deviation 67.9 fL (36.4-46.3) RDW Coefficient of Variation 18.5 % (11.5-14.5) Immature Granulocyte % (Auto) 0.2 % Immature Granulocyte # (Auto) 0.02 K/uL (0.00-0.02) Anion Gap 6.0 mmol/L (3-11) Est Creatinine Clear Calc Drug Dose 97.7 ml/min Estimated GFR () 75.4 Estimated GFR (Non- 65.1 BUN/Creatinine Ratio 9.3 (10-20) Calcium Level 8.3 mg/dl (8.5-10.1) Total Bilirubin 0.7 mg/dl (0.2-1) Direct Bilirubin 0.2 mg/dl (0-0.2) Aspartate Amino Transf (AST/SGOT) 23 U/L (15-37) Alanine Aminotransferase (ALT/SGPT) 17 U/L (12-78) Alkaline Phosphatase 96 U/L (45-117) Total Creatine Kinase 104 U/L (26-192) Creatine Kinase MB 1.7 ng/ml (0.5-3.6) Creatine Kinase MB Ratio 1.6 (0-3.0) Troponin I < 0.015 ng/ml (0-0.045) Total Protein 7.1 gm/dl (6.4-8.2) Albumin 2.7 gm/dl (3.4-5.0) Lipase 41 U/L (73-393) Laboratory studies as stated above per my review. Medications Administered Medications (Trade) Dose Ordered Sig/Nelda Route Start Time Stop Time Status Last Admin Dose Admin Ketorolac Tromethamine (Toradol Inj) 30 mg NOW STAT IV 05/01/17 23:14 05/01/17 23:15 DC 05/01/17 23:33 30 MG ECG Indication: other (shoulder pain) Rate (beats per minute): 54 Rhythm: sinus bradycardia Findings: 1st degree AV block, other (Low voltage.) Change: no significant change (03/27/2017) ED Course 2124: Past medical records reviewed. The patient was evaluated in room B6, and a complete history and physical examination were performed. 2209: I reassessed the patient at this time. She is resting comfortably. 2230: I reassessed the patient at this time. She is resting comfortably. The patient has not had her blood drawn yet. Medical Decision Differentials include, but are not limited to: cardiac disease, infection, complication related to stent, and electrolyte or metabolic abnormality. This patient comes in as described above. She was seen here earlier today. She 's had a recent stent placed and did have an Escherichia coli infection as well about a week ago. She was seen here earlier with back pain. Now she has bilateral shoulder and jaw pain is definitely reproducible. she's had no chest pain. I did an EKG there is no ischemic changes no change compared to old. Chest x-ray was obtained as well as shows no acute infiltrate failure or pneumothorax seen. Blood work was obtained. She was reassessed frequently. I reviewed her workup from earlier and the stent appeared to be in place her blood work was unremarkable earlier. She has no white count or fever to suggest infection she has no acute electrode or metabolic abnormality or cardiac enzymes are negative again her pain is reproducible. She thinks she's tensing up because she is so much pain. She is on no pain medications and has a stent in which is certainly a painful situation. She did get IV Toradol here. I will give her a small prescription as well as a home pack for OxyIR. I told her not to take with any other pain medication .she has 1 Ultram left at home and I told her not to take that. She was warned that OxyIR could make her drowsy and do not take before drinking, driving, working. I encouraged her to follow up with her regular doctor or urologist next 1-2 days for recheck or return to ER if: increasing pain, fever or chills, worsening ofsymptoms, any new problems concerns. She's happy with the plan and discharged to home. Medication Reconcilliation Current Medication List: was personally reviewed by me Impression Primary Impression: Jaw pain Additional Impressions: Shoulder pain Kidney stone Scribe Attestation The scribe's documentation has been prepared under my direction and personally reviewed by me in its entirety. I confirm that the note above accurately reflects all work, treatment, procedures, and medical decision making performed by me. Departure Information Prescriptions Oxycodone Immediate Rel Tab (ROXICODONE IR) 5 Mg Tab 1-2 TAB PO Q4H Y for Severe Pain, #10 TAB Prov: Flo Leach M.D. 05/01/17 Referrals No Doctor, Assigned (PCP) Patient Instructions My [facility] Problem Qualifiers
--- NOTE | 2017-05-01 22:10 | DIAGNOSTIC IMAGING REPORT ---
CHEST ONE VIEW PORTABLE CLINICAL HISTORY: Chest pain. COMPARISON STUDY: Chest radiograph April 27, 2017. FINDINGS: Mild cardiomegaly is unchanged. There is no evidence for pulmonary edema. No consolidation is identified. There is no pneumothorax or pleural effusion. The appearance of the chest is unchanged. IMPRESSION: No acute cardiopulmonary findings. No change in appearance of the chest. Electronically signed by: Vini Alvarado M.D. 05/01/2017 10:08 PM Dictated Date/Time: 05/01/2017 10:07 PM
[2017-05-01 23:00] LABS: BASO % 0.3 %; BASO ABS # 0.03 K/uL (0-0.2); EOS % 1.6 %; EOS ABS # 0.14 K/uL (0-0.5); HEMATOCRIT 36.7 % (37-47); HEMOGLOBIN 12.3 g/dL (12.0-16.0); IG# 0.02 K/uL (0.00-0.02); LYMPH % 28.9 %; LYMPH ABS # 2.54 K/uL (1.2-3.4); MEAN CELL VOLUME 99.7 fL (80-100); MEAN CORPUSCULAR HEMOGLOBIN 33.4 pg (25-34); MEAN CORPUSCULAR HGB CONC 33.5 g/dl (32-36); MEAN PLATELET VOLUME 9.4 fL (7.4-10.4); MONO % 7.7 %; MONO ABS # 0.68 K/uL (0.11-0.59); NEUT % 61.3 %; NEUT ABS # 5.37 K/uL (1.4-6.5); PLATELET COUNT 134 K/uL (130-400); RED CELL DISTRIBUTION WIDTH CV 18.5 % (11.5-14.5); RED CELL DISTRIBUTION WIDTH SD 67.9 fL (36.4-46.3); WHITE BLOOD COUNT 8.78 K/uL (4.8-10.8)
[2017-05-01 23:13] LABS: ALBUMIN 2.7 gm/dl (3.4-5.0); ALT/SGPT 17 U/L (12-78); AST/SGOT 23 U/L (15-37); BLOOD UREA NITROGEN 9 mg/dl (7-18); CALCIUM 8.3 mg/dl (8.5-10.1); CARBON DIOXIDE 27 mmol/L (21-32); CREATININE 0.99 mg/dl (0.60-1.20); GLUCOSE 179 mg/dl (70-99); LIPASE 41 U/L (73-393); POTASSIUM 3.4 mmol/L (3.5-5.1); SODIUM 139 mmol/L (136-145)
[2017-05-01] MEDS ORDERED: KETOROLAC TROMETHAMINE 30 MG/ML VIAL IV STA (23:14)
[2017-05-01 23:18] LABS: ALKALINE PHOSPHATASE 96 U/L (45-117); CKMB 1.7 ng/ml (0.5-3.6); TOTAL PROTEIN 7.1 gm/dl (6.4-8.2)
[2017-05-01] MEDS ORDERED: OXYC1TAB3 PO (23:54)
[2017-05-02] MEDS ORDERED: OXYCODONE IR HOME PACK PO ONE
[2017-05-02 00:09] VITALS: BP 163/98; PULSE 81; O2SAT 94
== END 2017-05-02 00:11 | disposition home or self-care (01) ==
LOC: C.EDB 21:08
DX: R68.84 Jaw pain (principal); M25.511 Pain in right shoulder; M25.512 Pain in left shoulder; N20.0 Calculus of kidney; J45.909 Unspecified asthma, uncomplicated; I10 Essential (primary) hypertension; K74.60 Unspecified cirrhosis of liver; E03.9 Hypothyroidism, unspecified; E11.40 Type 2 diabetes mellitus with diabetic neuropathy, unspecified; F32.9 Major depressive disorder, single episode, unspecified; F17.200 Nicotine dependence, unspecified, uncomplicated; Z86.19 Personal history of other infectious and parasitic diseases; Z91.81 History of falling; Z86.711 Personal history of pulmonary embolism; Z86.718 Personal history of other venous thrombosis and embolism; Z90.710 Acquired absence of both cervix and uterus; Z90.49 Acquired absence of other specified parts of digestive tract; Z90.89 Acquired absence of other organs; Z98.890 Other specified postprocedural states; Z83.3 Family history of diabetes mellitus; Z82.49 Family history of ischemic heart disease and other diseases of the circulatory system; Z79.01 Long term (current) use of 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s; Z79.4 Long term (current) use of insulin; Z79.899 Other long term (current) drug therapy

== ENCOUNTER 2017-05-06 19:52 | Emergency (ER) | payer OTHER ==
[~2017-05-06] VITALS: Ht 152.4 cm; Wt 160.2 kg
[~2017-05-06 19:52] MED LIST changes: -CIPR-255 PO; +NITR1CAP33 PO; +TAMS0.4C38 PO; -TRAM-453 PO
[2017-05-06 19:59] VITALS: TEMP 36.8; Ht 152.4 cm; Wt 160.2 kg
--- NOTE | 2017-05-06 21:05 | EMERGENCY ROOM VISIT NOTE ---
History Report prepared by [place]: Dorian Nicholson Under the Supervision of: Dr. Fritz Joshua M.D. First contact with patient: 21:03 Chief Complaint: SHORTNESS OF BREATH Stated Complaint: SOB,UPPER ABD DISCOMFORT Nursing Triage Summary: c/o shortness of breath for several days. satets she has a stent in her kidney and thinks it may be realted. History of Present Illness The patient is a 51 year old female who presents to the Emergency Room with complaints of resolving shortness of breath only when laying flat, that occurred this morning upon waking. She states that the shortness of breath woke her up, and she has never had this issue before. The patient notes that she has been having some abdominal discomfort as well, that she describes as an "indigestion" feeling. She says that she has a history of ulcers and is on Zantac daily. The patient notes that she was hospitalized here on April 17 due to sepsis secondary to a kidney stone, and she has had intermittent hematuria since then. She is planned to have the kidney stone removed later this month. The patient says that she has had persistent hematuria and dysuria for 5 days, which is new for her. She denies any chest pain, fevers, chills, cough, congestion, nausea, or vomiting. The patient states that she has diabetes and is on Insulin. 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 She had an echo in March. She is a smoker. Source of History: patient Onset: Upon waking this morning Position: other (global - sob) Quality: other (only when laying flat) Timing: other (resolving) Associated Symptoms: + abdominal pain, + urinary symptoms (persistent hematuria and dysuria 5 days), No fevers, No chills, No cough, No chest pain, No nausea, No vomiting Review of Systems See HPI for pertinent positives and negatives. A total of ten systems were reviewed and were otherwise negative. Past Medical & Surgical Medical Problems: (1) Abdominal pain (2) Abdominal pain (3) Abdominal pain (4) Abdominal wall cellulitis (5) Acute hypokalemia (6) Acute renal failure syndrome (7) Ankle pain (8) Asthma (9) Atypical syncope (10) Benign hypertension (11) Bipolar disorder (12) Bowel obstruction (13) Cellulitis (14) CELLULITIS ABDOMEN (15) Cellulitis and abscess of trunk (16) Chronic pain (17) Cirrhosis (18) Contusion of ankle (19) Contusion of periorbital region, left (20) Degenerative joint disease of spine (21) Dehydration (22) Dehydration (23) Depression (24) Diabetes mellitus type 2 (25) DM (diabetes mellitus screen) (26) Drug-seeking behavior (27) DVT (deep venous thrombosis) (28) Exacerbation of chronic back pain (29) Fall (30) Fracture of fourth metatarsal bone of left foot (31) Gastroesophageal reflux disease (32) Hepatic encephalopathy (33) Hernia of abdominal wall (34) Hyperglycemia (35) Hypokalemia (36) Hypokalemia (37) Hypokalemia (38) Hypokalemia (39) Hypothyroid (40) Hypothyroidism (41) Hypoxia (42) Incarcerated ventral hernia (43) Incisional irritation (44) Incisional pain (45) Inguinal lymphadenopathy (46) Insomnia (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 (48) MCC current use of 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 (49) LUMBAGO (50) Migraine (51) Morbid obesity (52) Morbid obesity (53) Morbid obesity (54) Morbid obesity with BMI of 60.0-69.9, adult (55) Obstructive sleep apnea (56) Pain, dental (57) Rectal bleeding (58) Renal colic on right side (59) Renal insufficiency (60) Renal insufficiency (61) SBO (small bowel obstruction) (62) Septic shock (63) Seroma, postoperative (64) Sleep apnea (65) Spinal stenosis (66) Splenomegaly, not elsewhere classified (67) Supraumbilical hernia Surgical Problems: (1) H/O hernia repair (2) H/O knee surgery (3) H/O: hysterectomy (4) History of cholecystectomy (5) Hx of appendectomy Social History Problems: (1) Diabetic neuropathy Family History Cancer Diabetes mellitus Gallbladder disease Heart disease Hypertension Lung disease Social History Smoking Status: Current Every Day Smoker Alcohol Use: none Drug Use: none Marital Status: single, in relationship Housing Status: lives with family Occupation Status: unemployed, disabled Current/Historical Medications Scheduled Albuterol Hfa (Ventolin Hfa), 2-4 PUFFS INH Q6H Carvedilol (Coreg), 12.5 MG PO BID Duloxetine Hcl (Cymbalta), 60 MG PO BID Escitalopram Oxalate (Lexapro), 20 MG PO QPM Insulin Aspart (Novolog Flexpen), UNITS SC TIDM Insulin Glargine (Lantus Solostar), 75 UNITS SQ BID Levothyroxine Sodium (Levothyroxine Sodium), 200 MCG PO DAILY Nitrofurantoin Macrocrystals (Macrodantin), 50 MG PO HS Rivaroxaban (Xarelto), 20 MG PO QPM Scheduled PRN Home O2 Therapy (Oxygen), 3 LITERS NA UD PRN for Shortness of Breath Oxycodone Ir (Roxicodone Ir), 10 MG PO Q6H PRN for Pain Tamsulosin Hcl (Flomax), 0.4 MG PO DAILY PRN for RN Allergies Coded Allergies: Iodinated Diagnostic Agents (Verified Allergy, Intermediate, hives-PT DENIES SEE NOTE, 05/06/17) Per patient she has had it since without problem (01/25/16 Ioversal given with no pretreats and no mention of rxn; also given Ioversal 11/26/06 with pretreats) Adhesives (Verified Allergy, Mild, RED RASH CAUSED BY PAPER TAPE, 05/06/17) Alprazolam (Verified Allergy, Unknown, MAKES LOOPY,DO AND SAY SILLY THINGS , 05/06/17) Metformin (Verified Allergy, Unknown, HANDS FEET FACE NUMB, 05/06/17) Morphine (Verified Allergy, Unknown, SWELLING LEGS AND FEET, 05/06/17) Vancomycin (Verified Adverse Reaction, Severe, renal failure, required dialysis x 3 MONTHS, 05/06/17) Methylparaben (Verified Adverse Reaction, Intermediate, FLUID RETENTION, ) Oxymorphone (Verified Adverse Reaction, Intermediate, FLUID RETENTION, 04/11) Gabapentin (Verified Adverse Reaction, Mild, Aphasia/Speech impairments, ) Sulfa Antibiotics (Verified Adverse Reaction, Mild, GI SYMPTOMS, 05/06/17) Acetaminophen (Verified Adverse Reaction, Unknown, Liver problems., ) Codeine (Verified Adverse Reaction, Unknown, UPSET STOMACH, 05/06/17) Pregabalin (Verified Adverse Reaction, Unknown, Aphasia/Speech impairments , 05/06/17) Physical Exam Vital Signs Date Time Temp Pulse Resp B/P (MAP) Pulse Ox O2 Delivery O2 Flow Rate FiO2 05/07/17 01:28 51 16 105/50 97 05/06/17 23:06 50 20 103/45 100 Nebulizer 9.0 05/06/17 19:59 36.8 110 20 112/65 99 Room Air Physical Exam GENERAL: Awake, alert, well-appearing, in no distress HENT: Normocephalic, atraumatic. Oropharynx unremarkable. EYES: Normal conjunctiva. Sclera non-icteric. NECK: Supple. No nuchal rigidity. FROM. No JVD. RESPIRATORY: Clear to auscultation. CARDIAC: Regular rate, normal rhythm. Extremities warm and well perfused. Pulses equal. ABDOMEN: Soft. Obese abdomen. Mild tenderness left flank, no peritoneal signs. No rebound or guarding. No masses. RECTAL: Deferred. MUSCULOSKELETAL: Chest examination reveals no tenderness. The back is symmetrical on inspection without obvious abnormality. There is left CVA tenderness to palpation. No joint edema. LOWER EXTREMITIES: Calves are equal size bilaterally and non-tender. No edema. No discoloration. NEURO: Normal sensorium. No sensory or motor deficits noted. SKIN: No rash or jaundice noted. Medical Decision & Procedures ER Provider Diagnostic Interpretation: Radiology results as stated below per my review and radiologist interpretation: Chest one-view x-ray: likely basilar atelectasis, improved from prior. Preliminary Findings Only See Final Report For Complete Findings CT ABDOMEN & PELVIS With Contrast: Cholecystectomy with no edema or inflammation of the pancreas. Question cirrhotic liver. Splenomegaly. Portal vein appears grossly patent. Left ureter stent in place. No obstructive uropathy or hydronephrosis. No appendicitis, inflammatory changes of bowel or bowel obstruction. No free fluid. No free air. Laboratory Results 05/06/17 22:41 Red Blood Count 3.44, Mean Corpuscular Volume 98.8, Mean Corpuscular Hemoglobin 33.4, Mean Corpuscular Hemoglobin Concent 33.8, Mean Platelet Volume 9.2, Neutrophils (%) (Auto) 56.3, Lymphocytes (%) (Auto) 33.5, Monocytes (%) (Auto) 7.1, Eosinophils (%) (Auto) 2.2, Basophils (%) (Auto) 0.6, Neutrophils # (Auto) 3.86, Lymphocytes # (Auto) 2.30, Monocytes # (Auto) 0.49, Eosinophils # (Auto) 0.15, Basophils # (Auto) 0.04 05/06/17 22:41 Test 05/06/17 00:00 05/06/17 22:41 Urine Color RED Urine Appearance TURBID (CLEAR) Urine pH 6.0 (4.5-7.5) Urine Specific [place] 1.025 (1.000-1.030) Urine Protein 2+ (NEG) Urine Glucose (UA) NEG (NEG) Urine Ketones TRACE (NEG) Urine Occult Blood 3+ (NEG) Urine Nitrite NEG (NEG) Urine Bilirubin NEG (NEG) Urine Urobilinogen NEG (NEG) Urine Leukocyte Esterase SMALL (NEG) Urine RBC >30 /hpf (0-4) Urine WBC >30 /hpf (0-5) Urine Epithelial Cells >30 /lpf (0-5) Urine Calcium Oxalate Crystals PRESENT (NONE PRSENT) Urine Bacteria 1+ (NEG) White Blood Count 6.86 K/uL (4.8-10.8) Red Blood Count 3.44 M/uL (4.2-5.4) Hemoglobin 11.5 g/dL (12.0-16.0) Hematocrit 34.0 % (37-47) Mean Corpuscular Volume 98.8 fL (80-100) Mean Corpuscular Hemoglobin 33.4 pg (25-34) Mean Corpuscular Hemoglobin Concent 33.8 g/dl (32-36) Platelet Count 149 K/uL (130-400) Mean Platelet Volume 9.2 fL (7.4-10.4) Neutrophils (%) (Auto) 56.3 % Lymphocytes (%) (Auto) 33.5 % Monocytes (%) (Auto) 7.1 % Eosinophils (%) (Auto) 2.2 % Basophils (%) (Auto) 0.6 % Neutrophils # (Auto) 3.86 K/uL (1.4-6.5) Lymphocytes # (Auto) 2.30 K/uL (1.2-3.4) Monocytes # (Auto) 0.49 K/uL (0.11-0.59) Eosinophils # (Auto) 0.15 K/uL (0-0.5) Basophils # (Auto) 0.04 K/uL (0-0.2) RDW Standard Deviation 66.7 fL (36.4-46.3) RDW Coefficient of Variation 18.3 % (11.5-14.5) Immature Granulocyte % (Auto) 0.3 % Immature Granulocyte # (Auto) 0.02 K/uL (0.00-0.02) Anion Gap 3.0 mmol/L (3-11) Est Creatinine Clear Calc Drug Dose 92.9 ml/min Estimated GFR () 73.6 Estimated GFR (Non- 63.5 BUN/Creatinine Ratio 12.3 (10-20) Calcium Level 8.1 mg/dl (8.5-10.1) Total Bilirubin 0.6 mg/dl (0.2-1) Aspartate Amino Transf (AST/SGOT) 20 U/L (15-37) Alanine Aminotransferase (ALT/SGPT) 18 U/L (12-78) Alkaline Phosphatase 83 U/L (45-117) Troponin I < 0.015 ng/ml (0-0.045) Pro-B-Type Natriuretic Peptide 60 pg/ml (0-900) Total Protein 6.5 gm/dl (6.4-8.2) Albumin 2.5 gm/dl (3.4-5.0) Globulin 4.0 gm/dl (2.5-4.0) Albumin/Globulin Ratio 0.6 (0.9-2) Laboratory results reviewed by me Medications Administered Medications (Trade) Dose Ordered Sig/Nelda Route Start Time Stop Time Status Last Admin Dose Admin Ketorolac Tromethamine (Toradol Inj) 30 mg STK-MED ONCE .ROUTE 05/06/17 22:30 05/06/17 22:31 DC 05/06/17 22:33 15 MG Albuterol/ Ipratropium (Duoneb) 3 ml NOW ONCE INH 05/06/17 23:00 05/06/17 23:01 DC 05/06/17 23:05 3 ML ECG Indication: SOB/dyspnea Rate (beats per minute): 52 Rhythm: sinus bradycardia Findings: 1st degree AV block, no acute ischemic change, other (normal axis) ED Course 2104: The patient was evaluated in room B2 by the resident, Dr. Owusu. A complete history and physical exam was performed. 2233: The patient was evaluated in room B2 by myself. A complete history and physical exam was performed. 0: The patient was reevaluated and she is resting comfortably. Discussed results and discharge instructions: she verbalized understanding and agreement. The patient is ready for discharge. Medical Decision I reviewed the patient's past medical history, medications, and the nursing notes as described above. Differential diagnosis: Etiologies such as infections, reactive airway disease, pneumonia, pneumothorax , COPD, CHF, cardiac ischemia, pulmonary embolism, musculoskeletal, gastrointestinal, as well as others were entertained. The patient is a 51 y/o woman, 1PPD smoker with a pmhx of PE/DVT and afib on Xarelto and recent admission for sepsis 2/2 infected renal stone per patient presents to the emergency department with c/o sob since this morning per HPI. On arrival the patient is NAD, AFVSS. CXR unremarkable. WBC, trop and BNP wnl. Labs otherwise unremarkable. UA dirty and similar to recent, which showed skin donnie only. CT unremarkable demonstrating prior ureteral stent placement. CTAB however feeling improvement with neb. Will give MDI for home for likely bronchspasm in setting of patient's chronic smoking. Findings and plan for follow-up reviewed with patient. Patient agreeable and d/c'd per discharge instructions. I discussed the case with the resident physician, examined the patient, and agree with the findings and plan as documented in the residents note unless otherwise clarified here by me. Medication Reconcilliation Current Medication List: was personally reviewed by me Blood Pressure Screening Patient's blood pressure: Normal blood pressure Impression Primary Impression: Abdominal pain Additional Impression: SOB (shortness of breath) Scribe Attestation The scribe's documentation has been prepared under my direction and personally reviewed by me in its entirety. I confirm that the note above accurately reflects all work, treatment, procedures, and medical decision making performed by me. Departure Information Dispostion Home / Self-Care Prescriptions Albuterol Hfa (VENTOLIN HFA) 200 Puffs/68167 Mcg Aers 2-4 PUFFS INH Q6H, #1 INHALER Prov: Abdon Owusu M.D. 05/07/17 Referrals Agustina Cummings M.D. (PCP) Patient Instructions My [facility] Additional Instructions You came to [facility] emergency department due to abdominal discomfort and shortness of breath when laying flat. We checked some blood work, including a white cell count, which tells us if you have an infection, as well as tests to check your liver, kidney and heart function. These all came back normal. Your urine did have blood in it, but no signs of any infection. We recommend you follow up with your urologist regarding the blood in your urine and your history of the kidney stone. Your CT scan did not show any obstruction due to the kidney stone , and there were no acute findings present. We will be prescribing an inhaler to help with your shortness of breath and recommend you follow up with your primary care doctor. Problem Qualifiers
--- NOTE | 2017-05-06 21:29 | EMERGENCY ROOM VISIT NOTE ---
History First contact with patient: 21:03 Chief Complaint: SHORTNESS OF BREATH Stated Complaint: SOB,UPPER ABD DISCOMFORT Nursing Triage Summary: c/o shortness of breath for several days. satets she has a stent in her kidney and thinks it may be realted. History of Present Illness The patient is a 51 year old female who presents to the Emergency Room with complaints of abdominal discomfort and SOB beginning this morning. She notes she woke up with abdominal discomfort, which she describes as possible "indigestion". She states she is also SOB with lying flat, which is new for her , and denies SOB on exertion or at rest. She denies chest pain, cough, fever, chills. She states she has a history of ulcers and GERD and takes Zantac daily for her symptoms. She states her LBM was last night and was normal. She does have O2 at home (3L) to use as needed, but states she hardly uses it. She has a 30 pack year history and is currently still smoking 1 PPD. Of note, she was recently admitted Apr 17 due to sepsis & a kidney stone. She had a stent placed in her ureter, however she states the urologist told her that instead of helping, the kidney stone advanced proximally towards her kidney and therefore she has surgery scheduled May 19 to remove the kidney stone. She has had reid hematuria for the past 5 days, and states she has also been experiencing dysuria. She states after they placed the stent in, she would have hematuria on and off, in small amounts, but it was never this prominent. Review of Systems See HPI for pertinent positives & negatives. A total of 10 systems reviewed and were otherwise negative. Past Medical/Surgical History Medical Problems: (1) Abdominal pain (2) Abdominal pain (3) Abdominal pain (4) Abdominal wall cellulitis (5) Acute hypokalemia (6) Acute renal failure syndrome (7) Ankle pain (8) Asthma (9) Atypical syncope (10) Benign hypertension (11) Bipolar disorder (12) Bowel obstruction (13) Cellulitis (14) CELLULITIS ABDOMEN (15) Cellulitis and abscess of trunk (16) Chronic pain (17) Cirrhosis (18) Contusion of ankle (19) Contusion of periorbital region, left (20) Degenerative joint disease of spine (21) Dehydration (22) Dehydration (23) Depression (24) Diabetes mellitus type 2 (25) DM (diabetes mellitus screen) (26) Drug-seeking behavior (27) DVT (deep venous thrombosis) (28) Exacerbation of chronic back pain (29) Fall (30) Fracture of fourth metatarsal bone of left foot (31) Gastroesophageal reflux disease (32) Hepatic encephalopathy (33) Hernia of abdominal wall (34) Hyperglycemia (35) Hypokalemia (36) Hypokalemia (37) Hypokalemia (38) Hypokalemia (39) Hypothyroid (40) Hypothyroidism (41) Hypoxia (42) Incarcerated ventral hernia (43) Incisional irritation (44) Incisional pain (45) Inguinal lymphadenopathy (46) Insomnia (47) shelter (current) use of insulin (48) shelter current use of 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 (49) LUMBAGO (50) Migraine (51) Morbid obesity (52) Morbid obesity (53) Morbid obesity (54) Morbid obesity with BMI of 60.0-69.9, adult (55) Obstructive sleep apnea (56) Pain, dental (57) Rectal bleeding (58) Renal colic on right side (59) Renal insufficiency (60) Renal insufficiency (61) SBO (small bowel obstruction) (62) Septic shock (63) Seroma, postoperative (64) Sleep apnea (65) Spinal stenosis (66) Splenomegaly, not elsewhere classified (67) Supraumbilical hernia Surgical Problems: (1) H/O hernia repair (2) H/O knee surgery (3) H/O: hysterectomy (4) History of cholecystectomy (5) Hx of appendectomy Social History Problems: (1) Diabetic neuropathy Family History Cancer Diabetes mellitus Gallbladder disease Heart disease Hypertension Lung disease Social History Smoking Status: Current Every Day Smoker Alcohol Use: none Drug Use: none Marital Status: single, in relationship Housing Status: lives with family Occupation Status: unemployed, disabled Current/Historical Medications Scheduled Albuterol Hfa (Ventolin Hfa), 2-4 PUFFS INH Q6H Carvedilol (Coreg), 12.5 MG PO BID Duloxetine Hcl (Cymbalta), 60 MG PO BID Escitalopram Oxalate (Lexapro), 20 MG PO QPM Insulin Aspart (Novolog Flexpen), UNITS SC TIDM Insulin Glargine (Lantus Solostar), 75 UNITS SQ BID Levothyroxine Sodium (Levothyroxine Sodium), 200 MCG PO DAILY Nitrofurantoin Macrocrystals (Macrodantin), 50 MG PO HS Rivaroxaban (Xarelto), 20 MG PO QPM Scheduled PRN Home O2 Therapy (Oxygen), 3 LITERS NA UD PRN for Shortness of Breath Oxycodone Ir (Roxicodone Ir), 10 MG PO Q6H PRN for Pain Tamsulosin Hcl (Flomax), 0.4 MG PO DAILY PRN for RN Physical Exam Vital Signs Date Time Temp Pulse Resp B/P (MAP) Pulse Ox O2 Delivery O2 Flow Rate FiO2 05/06/17 23:06 50 20 103/45 100 Nebulizer 9.0 05/06/17 19:59 36.8 110 20 112/65 99 Room Air Physical Exam HEENT: Head - normocephalic and atraumatic. Neck: Supple; no JVD, nuchal rigidity, cervical lymphadenopathy, or auscultated bruits. Heart: Regular rate and rhythm. There is a normal S1 and S2 with no murmurs, clicks, or gallops appreciated. Lungs: Clear to auscultation bilaterally with no wheezes, rales, or rhonchi. Abdomen: Soft, mildly tender in epigastric region, distended, with good bowel sounds. There are no palpable pulsatile masses or hepatosplenomegaly. There is no guarding, rigidity, or rebound noted. Extremities: No evidence of cyanosis, clubbing, or edema. There are easily palpable peripheral pulses. Neuro:The patient is awake and alert, oriented to day, time, and place. Medical Decision & Procedures Laboratory Results 05/06/17 22:41 Red Blood Count 3.44, Mean Corpuscular Volume 98.8, Mean Corpuscular Hemoglobin 33.4, Mean Corpuscular Hemoglobin Concent 33.8, Mean Platelet Volume 9.2, Neutrophils (%) (Auto) 56.3, Lymphocytes (%) (Auto) 33.5, Monocytes (%) (Auto) 7.1, Eosinophils (%) (Auto) 2.2, Basophils (%) (Auto) 0.6, Neutrophils # (Auto) 3.86, Lymphocytes # (Auto) 2.30, Monocytes # (Auto) 0.49, Eosinophils # (Auto) 0.15, Basophils # (Auto) 0.04 05/06/17 22:41 Test 05/06/17 00:00 05/06/17 22:41 Urine Color RED Urine Appearance TURBID (CLEAR) Urine pH 6.0 (4.5-7.5) Urine Specific [place] 1.025 (1.000-1.030) Urine Protein 2+ (NEG) Urine Glucose (UA) NEG (NEG) Urine Ketones TRACE (NEG) Urine Occult Blood 3+ (NEG) Urine Nitrite NEG (NEG) Urine Bilirubin NEG (NEG) Urine Urobilinogen NEG (NEG) Urine Leukocyte Esterase SMALL (NEG) Urine RBC >30 /hpf (0-4) Urine WBC >30 /hpf (0-5) Urine Epithelial Cells >30 /lpf (0-5) Urine Calcium Oxalate Crystals PRESENT (NONE PRSENT) Urine Bacteria 1+ (NEG) White Blood Count 6.86 K/uL (4.8-10.8) Red Blood Count 3.44 M/uL (4.2-5.4) Hemoglobin 11.5 g/dL (12.0-16.0) Hematocrit 34.0 % (37-47) Mean Corpuscular Volume 98.8 fL (80-100) Mean Corpuscular Hemoglobin 33.4 pg (25-34) Mean Corpuscular Hemoglobin Concent 33.8 g/dl (32-36) Platelet Count 149 K/uL (130-400) Mean Platelet Volume 9.2 fL (7.4-10.4) Neutrophils (%) (Auto) 56.3 % Lymphocytes (%) (Auto) 33.5 % Monocytes (%) (Auto) 7.1 % Eosinophils (%) (Auto) 2.2 % Basophils (%) (Auto) 0.6 % Neutrophils # (Auto) 3.86 K/uL (1.4-6.5) Lymphocytes # (Auto) 2.30 K/uL (1.2-3.4) Monocytes # (Auto) 0.49 K/uL (0.11-0.59) Eosinophils # (Auto) 0.15 K/uL (0-0.5) Basophils # (Auto) 0.04 K/uL (0-0.2) RDW Standard Deviation 66.7 fL (36.4-46.3) RDW Coefficient of Variation 18.3 % (11.5-14.5) Immature Granulocyte % (Auto) 0.3 % Immature Granulocyte # (Auto) 0.02 K/uL (0.00-0.02) Anion Gap 3.0 mmol/L (3-11) Est Creatinine Clear Calc Drug Dose 92.9 ml/min Estimated GFR () 73.6 Estimated GFR (Non- 63.5 BUN/Creatinine Ratio 12.3 (10-20) Calcium Level 8.1 mg/dl (8.5-10.1) Total Bilirubin 0.6 mg/dl (0.2-1) Aspartate Amino Transf (AST/SGOT) 20 U/L (15-37) Alanine Aminotransferase (ALT/SGPT) 18 U/L (12-78) Alkaline Phosphatase 83 U/L (45-117) Troponin I < 0.015 ng/ml (0-0.045) Pro-B-Type Natriuretic Peptide 60 pg/ml (0-900) Total Protein 6.5 gm/dl (6.4-8.2) Albumin 2.5 gm/dl (3.4-5.0) Globulin 4.0 gm/dl (2.5-4.0) Albumin/Globulin Ratio 0.6 (0.9-2) Medications Administered Medications (Trade) Dose Ordered Sig/Nelda Route Start Time Stop Time Status Last Admin Dose Admin Ketorolac Tromethamine (Toradol Inj) 30 mg STK-MED ONCE .ROUTE 05/06/17 22:30 05/06/17 22:31 DC 05/06/17 22:33 15 MG Albuterol/ Ipratropium (Duoneb) 3 ml NOW ONCE INH 05/06/17 23:00 05/06/17 23:01 DC 05/06/17 23:05 3 ML ECG Indication: SOB/dyspnea Rate (beats per minute): 52 Rhythm: sinus bradycardia Findings: 1st degree AV block, no acute ischemic change Comparison ECG Date: May 01, 2017 Change: no significant change ED Course 21:03: The patient was evaluated in room B2. A complete history and physical exam was performed. 21:40: The case was discussed with the attending, Dr. Joshua. 21:59: 15mg IV Toradol was ordered 22:52: Reassessed the patient. She was resting comfortably in bed. States her abdominal pain has not changed. 22:56: Duonebs ordered 23:24: Reassessed patient. She was asleep. 1:00: Discussed CT findings with patient. She was agreeable to discharge. 1:07: Ordered albuterol inhaler for patient to take home. Medical Decision Etiologies such as pneumonia, COPD, reactive airway disease, CHF, cardiac ischemia, pneumothorax, musculoskeletal, infections, gastrointestinal, as well as others were entertained. The patient is a 51 year old female who presents to the Emergency Room with complaints of abdominal discomfort and SOB beginning this morning. Her CBC and CMP were unremarkable. Urine showed hematuria, but no infection. CXR did not show congestive failure or infectious process. CT scan showed left ureter stent in place without any obstructive uropathy or hydronephrosis. She had some chronic hepatic changes, but no acute findings. Her symptoms improved whilst in the ED, and she was felt to be stable for discharge and follow up with her PCP. She was agreeable to this plan. Impression Primary Impression: Abdominal pain Additional Impression: SOB (shortness of breath) Departure Information Dispostion Home / Self-Care Prescriptions Albuterol Hfa (VENTOLIN HFA) 200 Puffs/62784 Mcg Aers 2-4 PUFFS INH Q6H, #1 INHALER Prov: Abdon Owusu M.D. 05/07/17 Referrals Agustina Cummings M.D. (PCP) Patient Instructions My [facility] Additional Instructions You came to [facility] emergency department due to abdominal discomfort and shortness of breath when laying flat. We checked some blood work, including a white cell count, which tells us if you have an infection, as well as tests to check your liver, kidney and heart function. These all came back normal. Your urine did have blood in it, but no signs of any infection. We recommend you follow up with your urologist regarding the blood in your urine and your history of the kidney stone. Your CT scan did not show any obstruction due to the kidney stone , and there were no acute findings present. We will be prescribing an inhaler to help with your shortness of breath and recommend you follow up with your primary care doctor. Resident Tracking Resident Involvement: Resident Care Provided Care Provided: Adult ED Problem Qualifiers Primary Impression: Abdominal pain Abdominal location: epigastric Qualified Codes: R10.13 - Epigastric pain
[2017-05-06] MEDS ORDERED: KETOROLAC TROMETHAMINE 15 MG/ML VIAL IV ONE (22:00)
[2017-05-06] MEDS ORDERED: KETOROLAC TROMETHAMINE 30 MG/ML VIAL ONE (22:30)
[2017-05-06 22:59] LABS: BASO % 0.6 %; BASO ABS # 0.04 K/uL (0-0.2); EOS % 2.2 %; EOS ABS # 0.15 K/uL (0-0.5); HEMOGLOBIN 11.5 g/dL (12.0-16.0); IG# 0.02 K/uL (0.00-0.02); LYMPH % 33.5 %; MEAN CELL VOLUME 98.8 fL (80-100); MEAN CORPUSCULAR HEMOGLOBIN 33.4 pg (25-34); MEAN CORPUSCULAR HGB CONC 33.8 g/dl (32-36); MEAN PLATELET VOLUME 9.2 fL (7.4-10.4); MONO % 7.1 %; MONO ABS # 0.49 K/uL (0.11-0.59); NEUT % 56.3 %; NEUT ABS # 3.86 K/uL (1.4-6.5); PLATELET COUNT 149 K/uL (130-400); RED CELL DISTRIBUTION WIDTH CV 18.3 % (11.5-14.5); RED CELL DISTRIBUTION WIDTH SD 66.7 fL (36.4-46.3); WHITE BLOOD COUNT 6.86 K/uL (4.8-10.8)
[2017-05-06] MEDS ORDERED: ALBUT/IPRATROP 3MG/0.5MG NEB 3 ML VIAL INH ONE (23:00)
[2017-05-06 23:23] LABS: ALBUMIN 2.5 gm/dl (3.4-5.0); ALT/SGPT 18 U/L (12-78); AST/SGOT 20 U/L (15-37); BLOOD UREA NITROGEN 12 mg/dl (7-18); CALCIUM 8.1 mg/dl (8.5-10.1); CARBON DIOXIDE 30 mmol/L (21-32); CREATININE 1.01 mg/dl (0.60-1.20); GLUCOSE 175 mg/dl (70-99); SODIUM 141 mmol/L (136-145)
[2017-05-06 23:28] LABS: ALKALINE PHOSPHATASE 83 U/L (45-117); TOTAL PROTEIN 6.5 gm/dl (6.4-8.2)
[2017-05-06] MEDS ORDERED: OPTIRAY 320 IV PRN (23:30)
[2017-05-07] MEDS ORDERED: VNTHFA/IN INH (01:03)
[2017-05-07] MEDS ORDERED: ALBUTEROL HFA 8 GM INHALER INH ONE (01:15)
[2017-05-07 01:28] VITALS: BP 105/50; PULSE 51; O2SAT 97
--- NOTE | 2017-05-07 05:16 | DIAGNOSTIC IMAGING REPORT ---
CHEST ONE VIEW PORTABLE CLINICAL HISTORY: sob lying flat dyspnea COMPARISON STUDY: 05/01/2017 FINDINGS: Moderate stable cardiomegaly. Lungs are clear. Diaphragms smooth. IMPRESSION: Moderate stable cardiomegaly. The above report was generated using voice recognition software. It may contain grammatical, syntax or spelling errors. Electronically signed by: Will Holder M.D. 05/07/2017 5:15 AM Dictated Date/Time: 05/07/2017 5:14 AM
--- NOTE | 2017-05-07 05:47 | DIAGNOSTIC IMAGING REPORT ---
ABD/PELVIS IV CONTRAST ONLY CT DOSE: 1992.93 mGy.cm HISTORY: Pain abdo pain w/hx of kidney stone stent. TECHNIQUE: Multiaxial CT images of the abdomen and pelvis were performed following the use of intravenous contrast. A dose lowering technique was utilized adhering to the principles of ALARA. COMPARISON STUDY: 04/27/2017 FINDINGS: Lung bases are clear. Hepatic cirrhosis. Upper abdominal moderate splenomegaly. Several upper abdominal varices unchanged in the prior exam. Nonobstructive bowel pattern. Left ureteral stent in good position. No evidence for renal hydronephrosis. IMPRESSION: 1. Hepatic cirrhosis. 2. Stable splenomegaly. 3. Left ureteral stent in good position. 4. 4 mm left ureter ureteropelvic junction calculus adjacent to the stent unchanged in position. 5. No new or interval process. The above report was generated using voice recognition software. It may contain grammatical, syntax or spelling errors. Electronically signed by: Will Holder M.D. 05/07/2017 5:46 AM Dictated Date/Time: 05/07/2017 5:43 AM
== END 2017-05-07 01:24 | disposition home or self-care (01) ==
LOC: C.EDB 19:53
DX: R10.9 Unspecified abdominal pain (principal); R06.02 Shortness of breath; I44.0 Atrioventricular block, first degree; I10 Essential (primary) hypertension; E11.9 Type 2 diabetes mellitus without complications; E03.9 Hypothyroidism, unspecified; K74.60 Unspecified cirrhosis of liver; K21.9 Gastro-esophageal reflux disease without esophagitis; K72.90 Hepatic failure, unspecified without coma; K58.9 Irritable bowel syndrome, unspecified; F31.9 Bipolar disorder, unspecified; J45.909 Unspecified asthma, uncomplicated; Z86.19 Personal history of other infectious and parasitic diseases; Z87.81 Personal history of (healed) traumatic fracture; Z90.710 Acquired absence of both cervix and uterus; Z90.49 Acquired absence of other specified parts of digestive tract; Z98.890 Other specified postprocedural states; F17.200 Nicotine dependence, unspecified, uncomplicated; Z79.4 Long term (current) use of insulin; Z79.899 Other long term (current) drug therapy; Z80.9 Family history of malignant neoplasm, unspecified; Z83.3 Family history of diabetes mellitus; Z83.79 Family history of other diseases of the digestive system; Z82.49 Family history of ischemic heart disease and other diseases of the circulatory system

== ENCOUNTER 2017-05-10 19:58 | Emergency (ER) | payer OTHER ==
[~2017-05-10] VITALS: Ht 160 cm; Wt 164.0 kg
[2017-05-10 20:00] VITALS: TEMP 36.8; Ht 160 cm; Wt 164.0 kg
--- NOTE | 2017-05-10 20:47 | DIAGNOSTIC IMAGING REPORT ---
CHEST ONE VIEW PORTABLE CLINICAL HISTORY: EVALUATE ALTERED MENTAL STATUS/WEAKNESS dyspnea COMPARISON STUDY: 05/06/2017 FINDINGS: Cardiomegaly. Pulmonary vascular congestion. Diaphragms are smooth. IMPRESSION: Cardiomegaly. Prominent pulmonary vasculature. The above report was generated using voice recognition software. It may contain grammatical, syntax or spelling errors. Electronically signed by: Will Holder M.D. 05/10/2017 8:45 PM Dictated Date/Time: 05/10/2017 8:45 PM
[2017-05-10] MEDS ORDERED: VNTHFA/IN INH (21:13)
[2017-05-10 21:24] LABS: BASO % 0.3 %; BASO ABS # 0.02 K/uL (0-0.2); EOS % 2.9 %; HEMATOCRIT 36.2 % (37-47); IG# 0.01 K/uL (0.00-0.02); LYMPH % 34.8 %; LYMPH ABS # 2.41 K/uL (1.2-3.4); MEAN CELL VOLUME 99.5 fL (80-100); MEAN CORPUSCULAR HGB CONC 33.1 g/dl (32-36); MONO % 5.9 %; MONO ABS # 0.41 K/uL (0.11-0.59); NEUT ABS # 3.87 K/uL (1.4-6.5); PLATELET COUNT 177 K/uL (130-400); RED CELL DISTRIBUTION WIDTH CV 17.4 % (11.5-14.5); RED CELL DISTRIBUTION WIDTH SD 63.6 fL (36.4-46.3); WHITE BLOOD COUNT 6.92 K/uL (4.8-10.8)
[2017-05-10] MEDS ORDERED: ALBUT/IPRATROP 3MG/0.5MG NEB 3 ML VIAL INH STA (21:28)
[2017-05-10 21:35] LABS: PTT PATIENT 28.1 SECONDS (21.0-31.0)
[2017-05-10 21:40] LABS: CALCIUM 8.6 mg/dl (8.5-10.1); CREATININE 0.92 mg/dl (0.60-1.20); POTASSIUM 3.4 mmol/L (3.5-5.1)
[2017-05-10 21:47] VITALS: BP 129/75; PULSE 54; O2SAT 100
[2017-05-10 21:49] LABS: CKMB 4.8 ng/ml (0.5-3.6); PHOSPHORUS 2.6 mg/dl (2.5-4.9); TOTAL PROTEIN 7.3 gm/dl (6.4-8.2)
--- NOTE | 2017-05-10 21:55 | EMERGENCY ROOM VISIT NOTE ---
History Report prepared by [place]: Steve Saleh Under the Supervision of: Dr. Hany Crespo D.O. First contact with patient: 20:05 Chief Complaint: OTHER COMPLAINT Stated Complaint: LEG CRAMPING, SOB, BACK PAIN History of Present Illness The patient is a 51 year old female who presents to the Emergency Room with complaints of an episode of shortness of breath that occurred earlier today. The patient states she had a stent placed in her kidney three weeks ago and has surgery in 9 days for a kidney stone. She reports she was at the urologist earlier today and became severely short of breath. The patient notes she came home, used her inhaler, and she felt better. She states she stood up to get dinner and her whole body cramped up. She notes her cellulitis is acting up as well and does not know if it is causing her symptoms. The patient reports she was septic before her stent was placed, and she is worried she may be septic again. She notes she just wants to feel better because she does not know what is going on. The patient states she is on Xarelto, but she has missed the past few days because she has not made it to the drug store. Source of History: patient Onset: earlier today Position: other (global) Quality: other (SOB) Timing: resolved Note: Associated symptoms: body cramping, cellulitis Review of Systems See HPI for pertinent positives & negatives. A total of 10 systems reviewed and were otherwise negative. Past Medical & Surgical Medical Problems: (1) Abdominal pain (2) Abdominal pain (3) Abdominal pain (4) Abdominal wall cellulitis (5) Acute hypokalemia (6) Acute renal failure syndrome (7) Ankle pain (8) Asthma (9) Atypical syncope (10) Benign hypertension (11) Bipolar disorder (12) Bowel obstruction (13) Cellulitis (14) CELLULITIS ABDOMEN (15) Cellulitis and abscess of trunk (16) Chronic pain (17) Cirrhosis (18) Contusion of ankle (19) Contusion of periorbital region, left (20) Degenerative joint disease of spine (21) Dehydration (22) Dehydration (23) Depression (24) Diabetes mellitus type 2 (25) DM (diabetes mellitus screen) (26) Drug-seeking behavior (27) DVT (deep venous thrombosis) (28) Exacerbation of chronic back pain (29) Fall (30) Fracture of fourth metatarsal bone of left foot (31) Gastroesophageal reflux disease (32) Hepatic encephalopathy (33) Hernia of abdominal wall (34) Hyperglycemia (35) Hypokalemia (36) Hypokalemia (37) Hypokalemia (38) Hypokalemia (39) Hypothyroid (40) Hypothyroidism (41) Hypoxia (42) Incarcerated ventral hernia (43) Incisional irritation (44) Incisional pain (45) Inguinal lymphadenopathy (46) Insomnia (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 (48) [facility] current use of 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 (49) LUMBAGO (50) Migraine (51) Morbid obesity (52) Morbid obesity (53) Morbid obesity (54) Morbid obesity with BMI of 60.0-69.9, adult (55) Obstructive sleep apnea (56) Pain, dental (57) Rectal bleeding (58) Renal colic on right side (59) Renal insufficiency (60) Renal insufficiency (61) SBO (small bowel obstruction) (62) Septic shock (63) Seroma, postoperative (64) Sleep apnea (65) Spinal stenosis (66) Splenomegaly, not elsewhere classified (67) Supraumbilical hernia Surgical Problems: (1) H/O hernia repair (2) H/O knee surgery (3) H/O: hysterectomy (4) History of cholecystectomy (5) Hx of appendectomy Social History Problems: (1) Diabetic neuropathy Family History Cancer Diabetes mellitus Gallbladder disease Heart disease Hypertension Lung disease Social History Smoking Status: Current Every Day Smoker Alcohol Use: none Drug Use: none Marital Status: single, in relationship Housing Status: lives with family Occupation Status: unemployed, disabled Current/Historical Medications Scheduled Carvedilol (Coreg), 12.5 MG PO BID Duloxetine Hcl (Cymbalta), 60 MG PO BID Escitalopram Oxalate (Lexapro), 20 MG PO QPM Insulin Aspart (Novolog Flexpen), UNITS SC TIDM Insulin Glargine (Lantus Solostar), 75 UNITS SQ BID Levothyroxine Sodium (Levothyroxine Sodium), 200 MCG PO DAILY Nitrofurantoin Macrocrystals (Macrodantin), 50 MG PO HS Rivaroxaban (Xarelto), 20 MG PO QPM Scheduled PRN Albuterol Hfa (Ventolin Hfa), 2-4 PUFFS INH Q6H PRN for SOB/Wheezing Home O2 Therapy (Oxygen), 3 LITERS NA UD PRN for Shortness of Breath Oxycodone Ir (Roxicodone Ir), 10 MG PO Q6H PRN for Pain Tamsulosin Hcl (Flomax), 0.4 MG PO DAILY PRN for RN Allergies Coded Allergies: Iodinated Diagnostic Agents (Verified Allergy, Intermediate, hives-PT DENIES SEE NOTE, 05/06/17) Per patient she has had it since without problem (01/25/16 Ioversal given with no pretreats and no mention of rxn; also given Ioversal 11/26/06 with pretreats) Adhesives (Verified Allergy, Mild, RED RASH CAUSED BY PAPER TAPE, 05/06/17) Alprazolam (Verified Allergy, Unknown, MAKES LOOPY,DO AND SAY SILLY THINGS , 05/06/17) Metformin (Verified Allergy, Unknown, HANDS FEET FACE NUMB, 05/06/17) Morphine (Verified Allergy, Unknown, SWELLING LEGS AND FEET, 05/06/17) Vancomycin (Verified Adverse Reaction, Severe, renal failure, required dialysis x 3 MONTHS, 05/06/17) Methylparaben (Verified Adverse Reaction, Intermediate, FLUID RETENTION, ) Oxymorphone (Verified Adverse Reaction, Intermediate, FLUID RETENTION, 04/11) Gabapentin (Verified Adverse Reaction, Mild, Aphasia/Speech impairments, ) Sulfa Antibiotics (Verified Adverse Reaction, Mild, GI SYMPTOMS, 05/06/17) Acetaminophen (Verified Adverse Reaction, Unknown, Liver problems., ) Codeine (Verified Adverse Reaction, Unknown, UPSET STOMACH, 05/06/17) Pregabalin (Verified Adverse Reaction, Unknown, Aphasia/Speech impairments , 05/06/17) Physical Exam Vital Signs Date Time Temp Pulse Resp B/P (MAP) Pulse Ox O2 Delivery O2 Flow Rate FiO2 05/10/17 21:47 54 18 129/75 100 Nebulizer 05/10/17 21:04 57 05/10/17 20:00 36.8 58 20 108/62 95 Room Air Physical Exam CONSTITUTIONAL/VITAL SIGNS: Reviewed / noted above. GENERAL: Non-toxic in appearance. INTEGUMENTARY: Warm, dry, and [place]. HEAD: Normocephalic. EYES: without scleral icterus or trauma. ENT/OROPHARYNX: clear and moist. LYMPHADENOPATHY/NECK: Is supple without lymphadenopathy or meningismus. RESPIRATORY: Lungs clear and equal. CARDIOVASCULAR: Regular rate and rhythm. GI/ABDOMEN: Soft and nontender. No organomegaly or pulsatile mass. No rebound or guarding. Normal bowel sounds. EXTREMITIES: Warm and well perfused. BACK: No CVA tenderness. NEUROLOGICAL: Intact without focal deficits. PSYCHIATRIC: normal affect. MUSCULOSKELETAL: Normally developed with good muscle tone. Medical Decision & Procedures ER Provider Diagnostic Interpretation: X ray results and stated below per my interpretation and radiology interpretation. CHEST ONE VIEW PORTABLE CLINICAL HISTORY: EVALUATE ALTERED MENTAL STATUS/WEAKNESS dyspnea COMPARISON STUDY: 05/06/2017 FINDINGS: Cardiomegaly. Pulmonary vascular congestion. Diaphragms are smooth. IMPRESSION: Cardiomegaly. Prominent pulmonary vasculature. The above report was generated using voice recognition software. It may contain grammatical, syntax or spelling errors. Electronically signed by: Will Holder M.D. 05/10/2017 8:45 PM Dictated Date/Time: 05/10/2017 8:45 PM Laboratory Results 05/10/17 21:00 Red Blood Count 3.64, Mean Corpuscular Volume 99.5, Mean Corpuscular Hemoglobin 33.0, Mean Corpuscular Hemoglobin Concent 33.1, Mean Platelet Volume 9.0, Neutrophils (%) (Auto) 56.0, Lymphocytes (%) (Auto) 34.8, Monocytes (%) (Auto) 5.9, Eosinophils (%) (Auto) 2.9, Basophils (%) (Auto) 0.3, Neutrophils # (Auto) 3.87, Lymphocytes # (Auto) 2.41, Monocytes # (Auto) 0.41, Eosinophils # (Auto) 0.20, Basophils # (Auto) 0.02 05/10/17 21:00 Test 05/10/17 21:00 White Blood Count 6.92 K/uL (4.8-10.8) Red Blood Count 3.64 M/uL (4.2-5.4) Hemoglobin 12.0 g/dL (12.0-16.0) Hematocrit 36.2 % (37-47) Mean Corpuscular Volume 99.5 fL (80-100) Mean Corpuscular Hemoglobin 33.0 pg (25-34) Mean Corpuscular Hemoglobin Concent 33.1 g/dl (32-36) Platelet Count 177 K/uL (130-400) Mean Platelet Volume 9.0 fL (7.4-10.4) Neutrophils (%) (Auto) 56.0 % Lymphocytes (%) (Auto) 34.8 % Monocytes (%) (Auto) 5.9 % Eosinophils (%) (Auto) 2.9 % Basophils (%) (Auto) 0.3 % Neutrophils # (Auto) 3.87 K/uL (1.4-6.5) Lymphocytes # (Auto) 2.41 K/uL (1.2-3.4) Monocytes # (Auto) 0.41 K/uL (0.11-0.59) Eosinophils # (Auto) 0.20 K/uL (0-0.5) Basophils # (Auto) 0.02 K/uL (0-0.2) RDW Standard Deviation 63.6 fL (36.4-46.3) RDW Coefficient of Variation 17.4 % (11.5-14.5) Immature Granulocyte % (Auto) 0.1 % Immature Granulocyte # (Auto) 0.01 K/uL (0.00-0.02) Prothrombin Time 10.9 SECONDS (9.0-12.0) Prothromb Time International Ratio 1.0 (0.9-1.1) Activated Partial Thromboplast Time 28.1 SECONDS (21.0-31.0) Partial Thromboplastin Ratio 1.1 Anion Gap 7.0 mmol/L (3-11) Est Creatinine Clear Calc Drug Dose 108.3 ml/min Estimated GFR () 82.4 Estimated GFR (Non- 71.1 BUN/Creatinine Ratio 12.7 (10-20) Calcium Level 8.6 mg/dl (8.5-10.1) Phosphorus Level 2.6 mg/dl (2.5-4.9) Magnesium Level 1.9 mg/dl (1.8-2.4) Total Bilirubin 0.6 mg/dl (0.2-1) Direct Bilirubin 0.2 mg/dl (0-0.2) Aspartate Amino Transf (AST/SGOT) 31 U/L (15-37) Alanine Aminotransferase (ALT/SGPT) 23 U/L (12-78) Alkaline Phosphatase 97 U/L (45-117) Total Creatine Kinase 338 U/L (26-192) Creatine Kinase MB 4.8 ng/ml (0.5-3.6) Creatine Kinase MB Ratio 1.4 (0-3.0) Total Protein 7.3 gm/dl (6.4-8.2) Albumin 3.0 gm/dl (3.4-5.0) Thyroid Stimulating Hormone (TSH) 77.600 uIu/ml (0.300-4.500) Laboratory results as stated above per my review. Medications Administered Medications (Trade) Dose Ordered Sig/Nelda Route Start Time Stop Time Status Last Admin Dose Admin Albuterol/ Ipratropium (Duoneb) 3 ml NOW STAT INH 05/10/17 21:28 05/10/17 21:29 DC 05/10/17 21:46 3 ML ED Course 2008: Previous medical records were reviewed. The patient was evaluated in room B06. A complete history and physical examination was performed. 2127: Ordered Duoneb 3ml INH 2155: On reevaluation, the patient is resting and feeling better. I discussed the results and findings with the patient. She verbalized agreement of the treatment plan. The patient was discharged home. Medical Decision Differentials include: Acute coronary syndrome, myocardial infarction, CVA, TIA , anemia, infection, pneumonia, UTI, pyelonephritis, poor nutrition, dehydration , electrolyte disturbance, and hypoglycemia. This is a 51-year-old female who presents to the ED with a chief complaint of generally not feeling well. The patient states that she saw her urologist earlier today. She had a urine sample taken. She states that she fell little short of breath. When she got home she took a DuoNeb treatment that helped. She states that she has some cramps throughout her body today around dinner. She states that because she has a history of sepsis, she just wanted to make sure that things are okay. Her physical exam was normal. Her abdomen does not show any evidence of cellulitis. Lower extremities reveals chronic bilateral edema. She is chronically on Xaralto. The patient has no other specific complaints. She is resting comfortably in bed. Her exam was unremarkable. Vital signs are stable. CBC is normal, chest x-ray was negative for acute disease. Complete metabolic panel was unremarkable. TSH is 77. The patient has had elevated thyroid function in the past and has had additional thyroid tests performed. She is currently on Synthroid. The patient is felt to be stable for discharge and outpatient follow-up. She was given a DuoNeb treatment while here. Medication Reconcilliation Current Medication List: was personally reviewed by me Blood Pressure Screening Patient's blood pressure: Normal blood pressure Blood pressure disposition: Did not require urgent referral Impression Primary Impression: Dyspnea Scribe Attestation The scribe's documentation has been prepared under my direction and personally reviewed by me in its entirety. I confirm that the note above accurately reflects all work, treatment, procedures, and medical decision making performed by me. Departure Information Dispostion Home / Self-Care Referrals Agustina Cummings M.D. (PCP) Forms HOME CARE DOCUMENTATION FORM, IMPORTANT VISIT INFORMATION, WORK / SCHOOL INSTRUCTIONS Patient Instructions My [facility] Additional Instructions Follow-up with your doctor for further care and evaluation in 1-2 days. Return to the emergency department for worsening or new symptoms or any concerns. You have been examined and treated today on an emergency basis only. This is not a substitute for, or an effort to provide, complete comprehensive medical care. It is impossible to recognize and treat all injuries or illnesses in a single emergency department visit. It is therefore important that you follow up closely with your doctor. Call as soon as possible for an appointment.
== END 2017-05-10 22:18 | disposition home or self-care (01) ==
LOC: EDBD 19:58 → C.EDB 20:00
DX: R06.00 Dyspnea, unspecified (principal); R25.2 Cramp and spasm; E11.9 Type 2 diabetes mellitus without complications; F31.9 Bipolar disorder, unspecified; J45.909 Unspecified asthma, uncomplicated; E03.9 Hypothyroidism, unspecified; F17.200 Nicotine dependence, unspecified, uncomplicated; Z79.4 Long term (current) use of insulin; Z79.899 Other long term (current) drug therapy; Z90.710 Acquired absence of both cervix and uterus

== ENCOUNTER → 2017-05-10 | Outpatient (CLI) | payer OTHER ==
[~2017-05-10] MED LIST changes: +VNTHFA/IN INH
== END | disposition home or self-care (01) ==
LOC: C.LABSPEC 17:29
PROVIDERS: ATTEND Nurse Practitioner Adult Health
DX: N20.1 Calculus of ureter (principal)

== ENCOUNTER → 2017-05-12 | Outpatient (CLI) | payer OTHER ==
--- NOTE | 2017-05-12 11:42 | DIAGNOSTIC IMAGING REPORT ---
ULTRASOUND VENOUS DOPPLER LWR EXT BILA CLINICAL HISTORY: Preoperative study. History of DVT. COMPARISON STUDY: 12/28/2016 FINDINGS: Real-time and color flow Doppler imaging were performed. Flow was seen within the femoral, popliteal and calf veins with no intraluminal thrombus demonstrated. The saphenous vein is patent. The study was difficult from a technical standpoint due to the patient's body habitus. IMPRESSION: No evidence of lower extremity DVT. Electronically signed by: Romie Lincoln M.D. 05/12/2017 11:41 AM Dictated Date/Time: 05/12/2017 11:36 AM
== END | disposition home or self-care (01) ==
LOC: C.ULTR 10:41
PROVIDERS: ATTEND Urology
DX: E66.01 Morbid (severe) obesity due to excess calories (principal)

== ENCOUNTER 2017-05-19 22:08 | Inpatient (IN) | payer OTHER ==
[~2017-05-19] VITALS: Ht 160 cm; Wt 160.8 kg
[~2017-05-19 22:08] MED LIST changes: -CARV12.52 PO; -INSDGIPEN SQ; -NVLGI/PEN SC; -OXGN; -OXYC1TAB3 PO; -TAMS0.4C38 PO; -VNTHFA/IN INH; -XRL20 PO
[2017-05-19] MEDS ORDERED: CIME-56 PO (23:13)
--- NOTE | 2017-05-19 23:22 | EMERGENCY ROOM VISIT NOTE ---
History Report prepared by [place]: Ramin Rodriguez Under the Supervision of: Dr. Nic Joseph M.D. First contact with patient: 23:00 Chief Complaint: HEMATURIA Stated Complaint: LOSS OF BLOOD Nursing Triage Summary: patient was to have a kidney stone removal, has a stent at present. urologist was called. patient has swelling in both arms. started urinating very thick blood about 2 ounces of urine every 45 minutes for the last two days pain in the lower back History of Present Illness The patient is a 51 year old female who presents to the Emergency Room with complaints of intermittent hematuria beginning 5 days ago. The patient states that she was scheduled to have a kidney stone removed today, but did not have a ride to her surgery, prompting her neighbor to drive her to the emergency department this evening. She notes that she currently has a stent placed. She also complains of a mild cough, mid abdominal pain, and weight gain due to fluid retention. She reports that her hematuria has been improving, and that she has gained 10 pounds of weight due to fluid retention within the last week. The patient states that her face and arms feel more swollen, but that her legs do not. She denies any SOB and runny nose. She notes that she smokes a half a pack of cigarettes a day. Source of History: patient Onset: 5 days ago Position: abdomen Quality: other (hematuria) Timing: intermittent Associated Symptoms: + cough (mild), + abdominal pain, No SOB Note: She also complains of gaining 10 pounds within the last week and swelling in her face and arms. She denies any runny nose. Review of Systems See HPI for pertinent positives & negatives. A total of 10 systems reviewed and were otherwise negative. Past Medical & Surgical Medical Problems: (1) Abdominal pain (2) Abdominal pain (3) Abdominal pain (4) Abdominal wall cellulitis (5) Acute hypokalemia (6) Acute renal failure syndrome (7) Anasarca (8) Ankle pain (9) Asthma (10) Atypical syncope (11) Benign hypertension (12) Bipolar disorder (13) Bowel obstruction (14) Cellulitis (15) CELLULITIS ABDOMEN (16) Cellulitis and abscess of trunk (17) Chronic pain (18) Cirrhosis (19) Contusion of ankle (20) Contusion of periorbital region, left (21) Degenerative joint disease of spine (22) Dehydration (23) Dehydration (24) Depression (25) Diabetes mellitus type 2 (26) DM (diabetes mellitus screen) (27) Drug-seeking behavior (28) DVT (deep venous thrombosis) (29) Exacerbation of chronic back pain (30) Fall (31) Fracture of fourth metatarsal bone of left foot (32) Gastroesophageal reflux disease (33) Hepatic encephalopathy (34) Hernia of abdominal wall (35) Hyperglycemia (36) Hypokalemia (37) Hypokalemia (38) Hypokalemia (39) Hypokalemia (40) Hypothyroid (41) Hypothyroidism (42) Hypoxia (43) Incarcerated ventral hernia (44) Incisional irritation (45) Incisional pain (46) Inguinal lymphadenopathy (47) Insomnia (48) retirement (current) use of insulin (49) retirement current use of 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 (50) LUMBAGO (51) Migraine (52) Morbid obesity (53) Morbid obesity (54) Morbid obesity (55) Morbid obesity with BMI of 60.0-69.9, adult (56) Obstructive sleep apnea (57) Pain, dental (58) Rectal bleeding (59) Renal colic on right side (60) Renal insufficiency (61) Renal insufficiency (62) SBO (small bowel obstruction) (63) Septic shock (64) Seroma, postoperative (65) Sleep apnea (66) Spinal stenosis (67) Splenomegaly, not elsewhere classified (68) Supraumbilical hernia (69) Weight gain, abnormal Surgical Problems: (1) H/O hernia repair (2) H/O knee surgery (3) H/O: hysterectomy (4) History of cholecystectomy (5) History of urethral stent (6) Hx of appendectomy Social History Problems: (1) Diabetic neuropathy Family History Cancer Diabetes mellitus Gallbladder disease Heart disease Hypertension Lung disease Social History Smoking Status: Current Every Day Smoker Alcohol Use: none Drug Use: none Marital Status: Housing Status: lives with family Occupation Status: unemployed, disabled Current/Historical Medications Scheduled Carvedilol (Coreg), 12.5 MG PO BID Cimetidine (Tagamet), 400 MG PO DAILY Duloxetine Hcl (Cymbalta), 60 MG PO BID Escitalopram Oxalate (Lexapro), 20 MG PO QPM Insulin Aspart (Novolog Flexpen), UNITS SC TIDM Insulin Glargine (Lantus Solostar), 75 UNITS SQ BID Levothyroxine Sodium (Levothyroxine Sodium), 200 MCG PO DAILY Rivaroxaban (Xarelto), 20 MG PO QPM Scheduled PRN Albuterol Hfa (Ventolin Hfa), 2-4 PUFFS INH Q6H PRN for SOB/Wheezing Home O2 Therapy (Oxygen), 3 LITERS NA UD PRN for Shortness of Breath Oxycodone Ir (Roxicodone Ir), 10 MG PO Q6H PRN for Pain Tamsulosin Hcl (Flomax), 0.4 MG PO DAILY PRN for RN Allergies Coded Allergies: Iodinated Diagnostic Agents (Verified Allergy, Intermediate, hives-PT DENIES SEE NOTE, 05/19/17) Per patient she has had it since without problem (01/25/16 Ioversal given with no pretreats and no mention of rxn; also given Ioversal 11/26/06 with pretreats) Adhesives (Verified Allergy, Mild, RED RASH CAUSED BY PAPER TAPE, 05/19/17) Alprazolam (Verified Allergy, Unknown, MAKES LOOPY,DO AND SAY SILLY THINGS , 05/19/17) Metformin (Verified Allergy, Unknown, HANDS FEET FACE NUMB, 05/19/17) Morphine (Verified Allergy, Unknown, SWELLING LEGS AND FEET, 05/19/17) Vancomycin (Verified Adverse Reaction, Severe, renal failure, required dialysis x 3 MONTHS, 05/19/17) Methylparaben (Verified Adverse Reaction, Intermediate, FLUID RETENTION, ) Oxymorphone (Verified Adverse Reaction, Intermediate, FLUID RETENTION, ) Gabapentin (Verified Adverse Reaction, Mild, Aphasia/Speech impairments, ) Sulfa Antibiotics (Verified Adverse Reaction, Mild, GI SYMPTOMS, 05/19/17) Acetaminophen (Verified Adverse Reaction, Unknown, Liver problems., ) Codeine (Verified Adverse Reaction, Unknown, UPSET STOMACH, 05/19/17) Pregabalin (Verified Adverse Reaction, Unknown, Aphasia/Speech impairments , 05/19/17) Physical Exam Vital Signs Date Time Temp Pulse Resp B/P (MAP) Pulse Ox O2 Delivery O2 Flow Rate FiO2 05/20/17 01:42 117/55 05/20/17 01:18 67 24 97 05/20/17 01:03 61 19 97 05/20/17 00:58 65 24 96 Room Air 05/20/17 00:43 66 24 96 05/20/17 00:31 144/89 05/20/17 00:28 64 25 97 05/20/17 00:23 136/88 05/20/17 00:13 67 94 05/20/17 00:01 145/94 05/19/17 23:58 65 26 99 Room Air 05/19/17 23:13 61 23 98 05/19/17 23:01 111/59 05/19/17 22:58 64 19 100 05/19/17 22:53 70 24 96 05/19/17 22:49 65 05/19/17 22:48 67 18 98 05/19/17 22:46 132/81 05/19/17 22:43 64 17 100 05/19/17 22:38 64 26 99 05/19/17 22:33 62 12 99 Room Air 05/19/17 22:31 132/81 05/19/17 22:29 142/81 05/19/17 22:15 36.7 70 24 124/74 99 Room Air Physical Exam GENERAL: Patient is chronically unwell appearing and in mild distress. HEENT: No acute trauma, normocephalic atraumatic, mucous membranes moist, no nasal congestion, no scleral icterus. NECK: No stridor, no adenopathy, no meningismus, trachea is midline. LUNGS: No dyspnea. No wheeze, no rhonchi. Distant lung sounds with faint crackles. HEART: Regular rate and rhythm. No murmurs, rubs, gallops appreciated. Distant heart sounds. ABDOMEN: Soft, vague diffuse tenderness with distant bowel sounds, no masses appreciated, no peritonitis. BACK: No midline tenderness, no CVA tenderness EXTREMITIES: Normal motion all extremities, no cyanosis, appears much more anasarca compared to previous evaluations, pitting edema in all extremities and onto her neck. NEUROLOGIC: Alert and oriented, no acute motor or sensory deficits, no focal weakness, cranial nerves grossly intact. SKIN: No rash, no jaundice, no diaphoresis. Medical Decision & Procedures ER Provider Diagnostic Interpretation: Radiology results and stated below per my review interpretation: CHEST X-RAY: Difficult to interpret secondary to morbid obesity. No clear evidence of infiltrate though diffuse interstitial fullness cannot be ruled out. Large heart. Possibly mild worsening congestive failure compared to previous. Laboratory Results 05/19/17 22:45 Red Blood Count 3.42, Mean Corpuscular Volume 102.0, Mean Corpuscular Hemoglobin 33.6, Mean Corpuscular Hemoglobin Concent 33.0, Mean Platelet Volume 9.3, Neutrophils (%) (Auto) 65.9, Lymphocytes (%) (Auto) 25.0, Monocytes (%) ( Auto) 6.4, Eosinophils (%) (Auto) 2.1, Basophils (%) (Auto) 0.3, Neutrophils # ( Auto) 4.10, Lymphocytes # (Auto) 1.56, Monocytes # (Auto) 0.40, Eosinophils # ( Auto) 0.13, Basophils # (Auto) 0.02 05/19/17 22:45 05/20/17 00:29 Test 05/19/17 22:45 05/19/17 23:08 05/19/17 23:40 05/20/17 00:29 White Blood Count 6.23 K/uL (4.8-10.8) Red Blood Count 3.42 M/uL (4.2-5.4) Hemoglobin 11.5 g/dL (12.0-16.0) Hematocrit 34.9 % (37-47) Mean Corpuscular Volume 102.0 fL (80-100) Mean Corpuscular Hemoglobin 33.6 pg (25-34) Mean Corpuscular Hemoglobin Concent 33.0 g/dl (32-36) Platelet Count 165 K/uL (130-400) Mean Platelet Volume 9.3 fL (7.4-10.4) Neutrophils (%) (Auto) 65.9 % Lymphocytes (%) (Auto) 25.0 % Monocytes (%) (Auto) 6.4 % Eosinophils (%) (Auto) 2.1 % Basophils (%) (Auto) 0.3 % Neutrophils # (Auto) 4.10 K/uL (1.4-6.5) Lymphocytes # (Auto) 1.56 K/uL (1.2-3.4) Monocytes # (Auto) 0.40 K/uL (0.11-0.59) Eosinophils # (Auto) 0.13 K/uL (0-0.5) Basophils # (Auto) 0.02 K/uL (0-0.2) RDW Standard Deviation 62.8 fL (36.4-46.3) RDW Coefficient of Variation 16.9 % (11.5-14.5) Immature Granulocyte % (Auto) 0.3 % Immature Granulocyte # (Auto) 0.02 K/uL (0.00-0.02) Prothrombin Time 11.3 SECONDS (9.0-12.0) Prothromb Time International Ratio 1.1 (0.9-1.1) Activated Partial Thromboplast Time 31.4 SECONDS (21.0-31.0) Partial Thromboplastin Ratio 1.2 Anion Gap 4.0 mmol/L (3-11) Est Creatinine Clear Calc Drug Dose 100.7 ml/min Estimated GFR () 72.7 Estimated GFR (Non- 62.8 BUN/Creatinine Ratio 6.9 (10-20) Calcium Level 8.7 mg/dl (8.5-10.1) Phosphorus Level 3.0 mg/dl (2.5-4.9) Magnesium Level mg/dl (1.8-2.4) Total Bilirubin 0.9 mg/dl (0.2-1) Alanine Aminotransferase (ALT/SGPT) 19 U/L (12-78) Alkaline Phosphatase 103 U/L (45-117) Creatine Kinase MB 1.6 ng/ml (0.5-3.6) Troponin I < 0.015 ng/ml (0-0.045) Pro-B-Type Natriuretic Peptide 113 pg/ml (0-900) Total Protein 8.0 gm/dl (6.4-8.2) Albumin 2.9 gm/dl (3.4-5.0) Lipase 30 U/L (73-393) Creatine Kinase MB Ratio (0-3.0) Urine Color RED Urine Appearance CLOUDY (CLEAR) Urine pH 7.5 (4.5-7.5) Urine Specific [place] 1.015 (1.000-1.030) Urine Protein 2+ (NEG) Urine Glucose (UA) NEG (NEG) Urine Ketones NEG (NEG) Urine Occult Blood 2+ (NEG) Urine Nitrite NEG (NEG) Urine Bilirubin NEG (NEG) Urine Urobilinogen NEG (NEG) Urine Leukocyte Esterase SMALL (NEG) Urine RBC >30 /hpf (0-4) Urine WBC 5-10 /hpf (0-5) Urine Epithelial Cells 20-30 /lpf (0-5) Urine Bacteria 1+ (NEG) Direct Bilirubin 0.2 mg/dl (0-0.2) Aspartate Amino Transf (AST/SGOT) 23 U/L (15-37) Total Creatine Kinase 99 U/L (26-192) Laboratory results as reviewed by me. Medications Administered Medications (Trade) Dose Ordered Sig/Nelda Route Start Time Stop Time Status Last Admin Dose Admin Furosemide (Lasix Inj) 40 mg NOW STAT IV 05/20/17 01:23 05/20/17 01:24 DC 05/20/17 01:42 40 MG ECG Indication: abdominal pain Rate (beats per minute): 60 Rhythm: normal sinus Findings: no acute ischemic change, no ectopy, other (Low voltage) Change: Patient's electrocardiogram interpreted by me. ED Course 2304: The patient was evaluated in room B10. A complete history and physical exam was performed. 0122: Discussed the patient's case with ALISSA Arroyo. Given her clear anasarca, he would like the patient to be started on Lasix. 0142: Upon reevaluation, the patient is stable. Discussed results and treatment plan with the patient. She verbalized understanding and agreement with the treatment plan. Discussed the patient's case with ALISSA Arroyo. The patient will be evaluated for further management. Medical Decision Differential: Sepsis, Infectious (UTI/Pneumonia/Meningitis/etc), Metabolic/ Electrolyte Abnormality, Cardiac, Dehydration, Anemia, Hepatic, Endocrine, Toxicologic, Neurologic, amongst other pathologies entertained. 51 yr old female arrives for evaluation of generalized weakness. By exam she is significantly worse appearing that her previous examinations, even other providers commenting on how badly she is swollen. Review of chart it is clear she has gained 10-20 pounds in just the last week. She is not allergic in nature and doesn't seem to be in any respiratory distress. Complaining of constant chronic abdominal pain though exam is benign. She was supposed to have urologic procedure earlier in day but skipped that and came to ED tonight instead. She has remarkably normal laboratory work-up. Blood in urine expected and with no nits, only 1+ sada, and 30+ epis I feel this is not infected and is contaminant. She is not on any lasix and while I do not feel it is heart failure she is clearly fluid overloaded on my examination, thus I will give dose IV lasix to see how she responds to this. Given rapidly worsening weight gain, her already very tenuous medical status, fact she has stent is no following with urology and recently had septic shock, will have hospitalist evaluate her further. Medication Reconcilliation Current Medication List: was personally reviewed by me Blood Pressure Screening Patient's blood pressure: Elevated blood pressure High blood pressure will be monitored by hospitalist. Consults Time Called: 0120 Consulting Physician: Dr. Rodas - Hospitalist, [facility] Returned Call: [phone]: Discussed the patient's case. Given her clear anasarca, he would like the patient to be started on Lasix. 0142: Discussed the patient's case. The patient will be evaluated for further treatment and disposition. Impression Primary Impression: Anasarca Additional Impression: Failure to thrive in adult Scribe Attestation The scribe's documentation has been prepared under my direction and personally reviewed by me in its entirety. I confirm that the note above accurately reflects all work, treatment, procedures, and medical decision making performed by me. Departure Information Dispostion Being Evaluated By Hospitalist Referrals Agustina Cummings M.D. (PCP) Patient Instructions My [facility] Problem Qualifiers
[2017-05-19 23:31] LABS: BASO % 0.3 %; BASO ABS # 0.02 K/uL (0-0.2); EOS % 2.1 %; EOS ABS # 0.13 K/uL (0-0.5); HEMATOCRIT 34.9 % (37-47); HEMOGLOBIN 11.5 g/dL (12.0-16.0); IG# 0.02 K/uL (0.00-0.02); LYMPH ABS # 1.56 K/uL (1.2-3.4); MEAN CORPUSCULAR HEMOGLOBIN 33.6 pg (25-34); MEAN PLATELET VOLUME 9.3 fL (7.4-10.4); MONO % 6.4 %; NEUT % 65.9 %; PLATELET COUNT 165 K/uL (130-400); RED CELL DISTRIBUTION WIDTH CV 16.9 % (11.5-14.5); RED CELL DISTRIBUTION WIDTH SD 62.8 fL (36.4-46.3); WHITE BLOOD COUNT 6.23 K/uL (4.8-10.8)
[2017-05-19 23:42] LABS: INR 1.1 (0.9-1.1); PTT PATIENT 31.4 SECONDS (21.0-31.0)
[2017-05-20] VITALS (7 sets, daily range): BP systolic 84–135; BP diastolic 40–77; PULSE 48–66; TEMP 36.5–37.1; O2SAT 92–95; Ht 160 cm; Wt 160.8 kg
[2017-05-20 00:11] LABS: ALBUMIN 2.9 gm/dl (3.4-5.0); ALKALINE PHOSPHATASE 103 U/L (45-117); ALT/SGPT 19 U/L (12-78); BLOOD UREA NITROGEN 7 mg/dl (7-18); CALCIUM 8.7 mg/dl (8.5-10.1); CARBON DIOXIDE 30 mmol/L (21-32); CKMB 1.6 ng/ml (0.5-3.6); CREATININE 1.02 mg/dl (0.60-1.20); GLUCOSE 154 mg/dl (70-99); LIPASE 30 U/L (73-393); SODIUM 135 mmol/L (136-145)
[2017-05-20 00:50] LABS: POTASSIUM 3.6 mmol/L (3.5-5.1)
[2017-05-20] MEDS ORDERED: FUROSEMIDE 40 MG/4 ML VIAL IV STA (01:23)
[2017-05-20] MEDS ORDERED: ALBUTEROL HFA 8 GM INHALER INH PRN (01:45)
[2017-05-20] MEDS ORDERED: NITROGLYCERIN 0.4 MG SL PER TAB CHARGE SL PRN (01:45)
[2017-05-20] MEDS ORDERED: DEXTROSE 50% 50 ML SYR IV PRN (02:00)
[2017-05-20] MEDS ORDERED: GLUCOSE 40% GEL 15 GM TUBE PO PRN (02:00)
[2017-05-20] MEDS ORDERED: ONDANSETRON 8MG OD TAB PO PRN (02:00)
[2017-05-20] MEDS ORDERED: GLUCOSE 10 TABS/TUBE PO PRN (02:00)
[2017-05-20] MEDS ORDERED: GLUCAGON FOR INJ 1 MG VIAL SQ PRN (02:00)
[2017-05-20] MEDS: OXYCODONE HCL IR 5 MG TAB (IMMEDIATE RELEASE) PO PRN ×4 (03:30→22:37)
[2017-05-20] MEDS: CEFTRIAXONE SOD INJ 1 GM in DEXTROSE 5% ADD-VANTAGE 50ML 50 ML IV SCH (04:48)
--- NOTE | 2017-05-20 05:15 | History and Physical ---
History & Physical Date & Time of Service: May 20, 2017 at 04:57 Chief Complaint: Anasarca, Weight Gain, Abnormal Primary Care Physician: Agustina Cummings M.D. History of Present Illness Source: patient, hospital records The patient is a 51-year-old female who presents to the emergency department with intermittent blood in her urine that began about 5 days prior to arrival. She reports that she was to have a kidney stone removed today, but did not have a ride to her appointment, so later on in the day was brought to the emergency department by her neighbor. She does have a left ureteral stent in place. She reports that she's gained 20 pounds over the past week, noting swelling primarily in her face and arms. She denies chest pain or shortness of breath. She smokes one half pack per day. Past Medical/Surgical History Medical Problems: (1) Abdominal pain Status: Resolved (2) Abdominal pain Status: Resolved (3) Abdominal pain Status: Resolved (4) Abdominal wall cellulitis Status: Resolved (5) Acute hypokalemia Status: Resolved (6) Acute renal failure syndrome Status: Resolved (7) Ankle pain Status: Resolved (8) Asthma Status: Chronic (9) Atypical syncope Status: Resolved (10) Benign hypertension Status: Chronic (11) Bipolar disorder Status: Chronic (12) Bowel obstruction Status: Resolved (13) Cellulitis Status: Resolved (14) CELLULITIS ABDOMEN Status: Resolved (15) Cellulitis and abscess of trunk Status: Resolved (16) Chronic pain Status: Chronic (17) Contusion of ankle Status: Resolved (18) Contusion of periorbital region, left Status: Resolved (19) Degenerative joint disease of spine Status: Chronic (20) Dehydration Status: Resolved (21) Dehydration Status: Resolved (22) Depression Status: Chronic (23) Diabetes mellitus type 2 Status: Chronic (24) DM (diabetes mellitus screen) Status: Chronic (25) Drug-seeking behavior Status: Chronic (26) DVT (deep venous thrombosis) Status: Resolved (27) Exacerbation of chronic back pain Status: Resolved (28) Fall Status: Resolved (29) Fracture of fourth metatarsal bone of left foot Status: Resolved (30) Gastroesophageal reflux disease Status: Chronic (31) Hepatic encephalopathy Status: Resolved (32) Hernia of abdominal wall Status: Chronic (33) Hyperglycemia Status: Resolved (34) Hypokalemia Status: Resolved (35) Hypokalemia Status: Resolved (36) Hypokalemia Status: Resolved (37) Hypokalemia Status: Resolved (38) Hypothyroid Status: Chronic (39) Hypothyroidism Status: Chronic (40) Hypoxia Status: Resolved (41) Incarcerated ventral hernia Status: Resolved (42) Incisional irritation Status: Resolved (43) Incisional pain Status: Resolved (44) Inguinal lymphadenopathy Status: Resolved (45) Insomnia Status: Chronic (46) jail (current) use of insulin Status: Chronic (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 (48) LUMBAGO Status: Chronic (49) Migraine Status: Chronic (50) Morbid obesity Status: Resolved (51) Morbid obesity Status: Chronic (52) Morbid obesity Status: Chronic (53) Morbid obesity with BMI of 60.0-69.9, adult Status: Chronic (54) Obstructive sleep apnea Status: Chronic (55) Pain, dental Status: Resolved (56) Renal colic on right side Status: Resolved (57) Renal insufficiency Status: Resolved (58) Renal insufficiency Status: Resolved (59) SBO (small bowel obstruction) Status: Resolved (60) Seroma, postoperative Status: Resolved (61) Sleep apnea Status: Resolved (62) Spinal stenosis Status: Chronic (63) Splenomegaly, not elsewhere classified Status: Chronic (64) Supraumbilical hernia Status: Chronic Surgical Problems: (1) H/O hernia repair Status: Chronic (2) H/O knee surgery Status: Resolved (3) H/O: hysterectomy Status: Resolved (4) History of cholecystectomy Status: Resolved (5) Hx of appendectomy Status: Resolved Social History Problems: (1) Diabetic neuropathy Status: Chronic Family History Cancer Diabetes mellitus Gallbladder disease Heart disease Hypertension Lung disease Social History Smoking Status: Current Every Day Smoker Smokeless Tobacco Use: No Alcohol Use: none Drug Use: none Marital Status: Housing status: other Occupational Status: unemployed, disabled Immunizations History of Influenza Vaccine: No Influenza Vaccine Date: Feb 20, 2011 History of Tetanus Vaccine?: 2009 Tetanus Immunization Date: Dec 21, 2005 History of Pneumococcal: Yes Pneumococcal Date: Feb 03, 2012 History of Hepatitis B Vaccine: No Multi-Drug Resistant Organisms History of MDRO: No Allergies Coded Allergies: Iodinated Diagnostic Agents (Verified Allergy, Intermediate, hives-PT DENIES SEE NOTE, 05/19/17) Per patient she has had it since without problem (01/25/16 Ioversal given with no pretreats and no mention of rxn; also given Ioversal 11/26/06 with pretreats) Adhesives (Verified Allergy, Mild, RED RASH CAUSED BY PAPER TAPE, 05/19/17) Alprazolam (Verified Allergy, Unknown, MAKES LOOPY,DO AND SAY SILLY THINGS , 05/19/17) Metformin (Verified Allergy, Unknown, HANDS FEET FACE NUMB, 05/19/17) Morphine (Verified Allergy, Unknown, SWELLING LEGS AND FEET, 05/19/17) Vancomycin (Verified Adverse Reaction, Severe, renal failure, required dialysis x 3 MONTHS, 05/19/17) Methylparaben (Verified Adverse Reaction, Intermediate, FLUID RETENTION, ) Oxymorphone (Verified Adverse Reaction, Intermediate, FLUID RETENTION, ) Gabapentin (Verified Adverse Reaction, Mild, Aphasia/Speech impairments, ) Sulfa Antibiotics (Verified Adverse Reaction, Mild, GI SYMPTOMS, 05/19/17) Acetaminophen (Verified Adverse Reaction, Unknown, Liver problems., ) Codeine (Verified Adverse Reaction, Unknown, UPSET STOMACH, 05/19/17) Pregabalin (Verified Adverse Reaction, Unknown, Aphasia/Speech impairments , 05/19/17) Home Medications Scheduled Carvedilol (Coreg), 12.5 MG PO BID Cimetidine (Tagamet), 400 MG PO DAILY Duloxetine Hcl (Cymbalta), 60 MG PO BID Escitalopram Oxalate (Lexapro), 20 MG PO QPM Insulin Aspart (Novolog Flexpen), UNITS SC TIDM Insulin Glargine (Lantus Solostar), 75 UNITS SQ BID Levothyroxine Sodium (Levothyroxine Sodium), 200 MCG PO DAILY Rivaroxaban (Xarelto), 20 MG PO QPM Scheduled PRN Albuterol Hfa (Ventolin Hfa), 2-4 PUFFS INH Q6H PRN for SOB/Wheezing Home O2 Therapy (Oxygen), 3 LITERS NA UD PRN for Shortness of Breath Oxycodone Ir (Roxicodone Ir), 10 MG PO Q6H PRN for Pain Tamsulosin Hcl (Flomax), 0.4 MG PO DAILY 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 The review of systems is otherwise negative other than for that already noted above, and at least 10 systems have been reviewed. Physical Exam Vital Signs Date Time Temp Pulse Resp B/P (MAP) Pulse Ox O2 Delivery O2 Flow Rate FiO2 05/20/17 04:08 36.8 66 20 135/72 95 Room Air 05/20/17 01:48 67 26 97 05/20/17 01:42 117/55 05/20/17 01:18 67 24 97 05/20/17 01:03 61 19 97 05/20/17 00:58 65 24 96 Room Air 05/20/17 00:43 66 24 96 05/20/17 00:31 144/89 05/20/17 00:28 64 25 97 05/20/17 00:23 136/88 05/20/17 00:13 67 94 05/20/17 00:01 145/94 05/19/17 23:58 65 26 99 Room Air 05/19/17 23:13 61 23 98 05/19/17 23:01 111/59 05/19/17 22:58 64 19 100 05/19/17 22:53 70 24 96 05/19/17 22:49 65 05/19/17 22:48 67 18 98 05/19/17 22:46 132/81 05/19/17 22:43 64 17 100 05/19/17 22:38 64 26 99 05/19/17 22:33 62 12 99 Room Air 05/19/17 22:31 132/81 05/19/17 22:29 142/81 05/19/17 22:15 36.7 70 24 124/74 99 Room Air The patient is awake, alert and oriented 3, well developed and well nourished, normocephalic and atraumatic, lying in bed and in no acute distress. HEENT--PERRL, EOMI, mucous membranes and oropharynx normal. Neck--supple. No JVD. No bruits. Thyroid normal, trachea midline, no adenopathy. Heart--normal S1 and S2. No murmurs, rubs or gallops. Lungs--clear bilaterally, no respiratory distress, no accessory muscle use. Abdomen--normal bowel sounds and soft. Nontender. Nondistended, no hernias or masses. Obese Extremities--no cyanosis or clubbing. Anasarca. There are good distal pulses b/ l. Dermatologic--normal skin turgor, normal color, no abnormal lymph nodes, no rash. Neurologic--cranial nerves II through XII grossly intact. Rheumatologic--range of motion limited by body habitus Psychiatric--normal affect. Diagnostics Laboratory Results Results Past 24 Hours Test 05/19/17 22:45 05/19/17 23:08 05/19/17 23:40 05/20/17 00:29 Range/Units White Blood Count 6.23 4.8-10.8 K/uL Red Blood Count 3.42 4.2-5.4 M/uL Hemoglobin 11.5 12.0-16.0 g/dL Hematocrit 34.9 37-47 % Mean Corpuscular Volume 102.0 80-100 fL Mean Corpuscular Hemoglobin 33.6 25-34 pg Mean Corpuscular Hemoglobin Concent 33.0 32-36 g/dl Platelet Count 165 130-400 K/uL Mean Platelet Volume 9.3 7.4-10.4 fL Neutrophils (%) (Auto) 65.9 % Lymphocytes (%) (Auto) 25.0 % Monocytes (%) (Auto) 6.4 % Eosinophils (%) (Auto) 2.1 % Basophils (%) (Auto) 0.3 % Neutrophils # (Auto) 4.10 1.4-6.5 K/uL Lymphocytes # (Auto) 1.56 1.2-3.4 K/uL Monocytes # (Auto) 0.40 0.11-0.59 K/uL Eosinophils # (Auto) 0.13 0-0.5 K/uL Basophils # (Auto) 0.02 0-0.2 K/uL RDW Standard Deviation 62.8 36.4-46.3 fL RDW Coefficient of Variation 16.9 11.5-14.5 % Immature Granulocyte % (Auto) 0.3 % Immature Granulocyte # (Auto) 0.02 0.00-0.02 K/uL Prothrombin Time 11.3 9.0-12.0 SECONDS Prothromb Time International Ratio 1.1 0.9-1.1 Activated Partial Thromboplast Time 31.4 21.0-31.0 SECONDS Partial Thromboplastin Ratio 1.2 Sodium Level 135 136-145 mmol/L Potassium Level 3.6 3.5-5.1 mmol/L Chloride Level 101 98-107 mmol/L Carbon Dioxide Level 30 21-32 mmol/L Anion Gap 4.0 3-11 mmol/L Blood Urea Nitrogen 7 7-18 mg/dl Creatinine 1.02 0.60-1.20 mg/dl Est Creatinine Clear Calc Drug Dose 100.7 ml/min Estimated GFR () 72.7 Estimated GFR (Non- 62.8 BUN/Creatinine Ratio 6.9 10-20 Random Glucose 154 70-99 mg/dl Calcium Level 8.7 8.5-10.1 mg/dl Phosphorus Level 3.0 2.5-4.9 mg/dl Magnesium Level 1.8-2.4 mg/dl Total Bilirubin 0.9 0.2-1 mg/dl Direct Bilirubin 0.2 0-0.2 mg/dl Aspartate Amino Transf (AST/SGOT) 23 15-37 U/L Alanine Aminotransferase (ALT/SGPT) 19 12-78 U/L Alkaline Phosphatase 103 45-117 U/L Total Creatine Kinase 99 26-192 U/L Creatine Kinase MB 1.6 0.5-3.6 ng/ml Troponin I < 0.015 0-0.045 ng/ml Pro-B-Type Natriuretic Peptide 113 0-900 pg/ml Total Protein 8.0 6.4-8.2 gm/dl Albumin 2.9 3.4-5.0 gm/dl Lipase 30 73-393 U/L Creatine Kinase MB Ratio 0-3.0 Urine Color RED Urine Appearance CLOUDY CLEAR Urine pH 7.5 4.5-7.5 Urine Specific [place] 1.015 1.000-1.030 Urine Protein 2+ NEG Urine Glucose (UA) NEG NEG Urine Ketones NEG NEG Urine Occult Blood 2+ NEG Urine Nitrite NEG NEG Urine Bilirubin NEG NEG Urine Urobilinogen NEG NEG Urine Leukocyte Esterase SMALL NEG Urine RBC >30 0-4 /hpf Urine WBC 5-10 0-5 /hpf Urine Epithelial Cells 20-30 0-5 /lpf Urine Bacteria 1+ NEG Microbiology Results 05/19/17 Urine Culture, Received Pending EKG EKG shows sinus bradycardia at approximately 60 bpm, there are no acute ST-T changes Impression Assessment and Plan Anasarca/CHF/hypertension-- The patient will be admitted to telemetry for serial cardiac enzymes, serial EKG's, cardiac rhythm monitoring and a 2-D echocardiogram with Dopplers. Given Lasix 40 mg IV in the ED. Lasix 40 mg IV twice a day Klor-Con 40 mEq by mouth twice a day Continue carvedilol 12.5 mg by mouth twice a day Hold Xarelto for possible procedure Serial BMP and magnesium levels Serial chest x-rays Encourage better dietary compliance with salt restriction 4 mm left UPJ Kidney stone/left ureteral stent/hematuria-- Place on ceftriaxone 1 g IV daily Nothing by mouth except medications Consult urology Diabetes mellitus-- Decrease Lantus 75-30 units subcutaneous twice a day while nothing by mouth for possible procedure Place on Accu-Cheks before meals and at bedtime with NovoLog coverage per scale Hypothyroidism-- Continue levothyroxine sodium 200 g by mouth daily Anxiety with depression-- Continue duloxetine 60 mg by mouth twice a day and lisinopril 20 mg by mouth every evening GERD--continue Tagamet 400 mg by mouth daily. Level of Care Telemetry Advanced Directives Existing Advance Directive: No Existing Living Will: No Existing Power of Supervisor Laundry: No Resuscitation Status FULL RESUSCITATION VTE Prophylaxis VTE Risk Assessment Done? Y/N: Yes Risk Level: Moderate Given or contraindicated: Other Anticoagulation (Xarelto)
[2017-05-20] MEDS: LEVOTHYROXINE 200 MCG TAB PO SCH (06:22)
--- NOTE | 2017-05-20 07:38 | DIAGNOSTIC IMAGING REPORT ---
SINGLE VIEW CHEST CLINICAL HISTORY: Generalized weakness. FINDINGS: An AP, portable, upright chest radiograph is compared to study dated 05/10/2017 and correlated with chest CT dated 10/21/2016. The examination is degraded by portable technique, large body habitus, and patient rotation. The heart is enlarged and there is atherosclerotic calcification of the thoracic aorta. There is prominence of the central pulmonary vasculature. No large pleural effusion or focal airspace consolidation is seen. Bibasilar atelectasis is observed. No pneumothorax is seen. The skeletal structures appear osteopenic. The bony thorax is grossly intact. IMPRESSION: 1. Cardiomegaly with prominence of the central pulmonary vasculature. Correlate clinically for evidence of mild congestive failure. 2. There is no airspace consolidation or large pleural effusion. Electronically signed by: Juan Doran M.D. 05/20/2017 7:37 AM Dictated Date/Time: 05/20/2017 7:35 AM
[2017-05-20] MEDS: CIMETIDINE 400 MG TAB PO SCH (08:17)
[2017-05-20] MEDS: DULOXETINE HCL 60 MG CAP PO SCH ×2 (08:17→20:55)
[2017-05-20] MEDS: CARVEDILOL 12.5 MG TAB PO SCH ×2 (08:18→19:36)
[2017-05-20] MEDS: POTASSIUM CHLORIDE 20 MEQ TABCR PO SCH ×2 (08:18→20:53)
[2017-05-20] MEDS: INSULIN GLARGINE SOLOSTAR 100 UNITS/ML 3 ML PEN SQ SCH ×2 (08:21→21:02)
[2017-05-20] MEDS: INSULIN ASPART 100 UNITS/ML 3 ML PEN SC SCH ×4 (08:22→20:49)
[2017-05-20] MEDS ORDERED: FUROSEMIDE INJ 40 MG in SYRINGE 0 ML IV SCH (09:00)
[2017-05-20] MEDS ORDERED: INSULIN GLARGINE SOLOSTAR 100 UNITS/ML 3 ML PEN SQ SCH (09:00)
[2017-05-20] MEDS ORDERED: PHENAZOPYRIDINE HCL 200 MG TAB PO PRN (10:00)
--- NOTE | 2017-05-20 10:13 | Urology Consultation ---
History General Date of Service: May 20, 2017. Chief Complaint: swelling, left ureteral stone Primary Care Physician: Agustina Cummings M.D. Pt seen a urologist before?: Yes (Dr. Aguilera ) If yes, why?: left ureteral stone History of Present Illness 51 yo female admitted for anasarca, CHF, and left ureteral stone. She has seen Dr. Aguilera in the past for a 4mm left UPJ stone. She is s/p stent placement. She was to have left URS with Dr. Raya yesterday, but her surgery was canceled as she could not find a ride to have her stress test done. However , the pt was able to find a ride to the hospital yesterday for c/o swelling. She reports to me this morning that she is having left low back pain and bladder pain 9/10 this morning. She requests her oxycodone be given to her more often and on a scheduled basis. She also c/o dysuria and hematuria this morning. She is noted to have had 2 positive cultures growing yeast and chad glabrata over the past 3 weeks, and was currently on Diflucan at home for this. Laboratory Labs were reviewed and are within normal limits unless listed below. Labs are available in the chart and at [facility] Problem List Medical Problems: (1) Abdominal contusion Status: Acute (2) Abdominal wall pain Status: Acute (3) Acute abdominal pain Status: Acute (4) Acute exacerbation of chronic low back pain Status: Acute (5) Acute flank pain Status: Acute (6) Acute generalized abdominal pain Status: Acute (7) Anxiety Status: Acute (8) Asthma Status: Chronic (9) Back pain Status: Acute (10) Back pain Status: Acute (11) Back pain Status: Acute (12) Back pain Status: Acute (13) Back pain Status: Acute (14) Benign hypertension Status: Chronic (15) Bipolar disorder Status: Chronic (16) Cauda equina compression Status: Acute (17) Chronic pain Status: Chronic (18) Closed head injury Status: Acute (19) Contusion of left foot Status: Acute (20) Contusion of left knee Status: Acute (21) Contusion of multiple sites Status: Acute (22) Degenerative joint disease of spine Status: Chronic (23) Depression Status: Chronic (24) Diabetes mellitus type 2 Status: Chronic (25) Diabetes mellitus with hyperglycemia Status: Acute (26) Diabetes mellitus with hyperglycemia Status: Acute (27) Drug-seeking behavior Status: Chronic (28) Dyspnea Status: Acute (29) Failure to thrive in adult Status: Acute (30) Gastroesophageal reflux disease Status: Chronic (31) Headache Status: Acute (32) Headache Status: Acute (33) Hematuria Status: Acute (34) Hernia of abdominal wall Status: Chronic (35) Hyperammonemia Status: Acute (36) Hypothyroidism Status: Acute (37) Hypothyroidism Status: Chronic (38) Insomnia Status: Chronic (39) Insulin dependent type 2 diabetes mellitus, uncontrolled Status: Acute (40) Jaw pain Status: Acute (41) Kidney stone Status: Acute (42) Kidney stone on left side Status: Acute (43) Left flank pain Status: Acute (44) Left flank pain Status: Acute (45) LUMBAGO Status: Chronic (46) Migraine Status: Acute (47) Migraine Status: Chronic (48) Morbid obesity Status: Chronic (49) Morbid obesity Status: Chronic (50) Morbid obesity with BMI of 60.0-69.9, adult Status: Acute (51) Noncompliance with medication regimen Status: Acute (52) Obstructive sleep apnea Status: Chronic (53) Poorly controlled diabetes mellitus Status: Acute (54) Post-op pain Status: Acute (55) Right flank pain Status: Acute (56) Right-sided chest wall pain Status: Acute (57) Sepsis Status: Acute (58) Shoulder pain Status: Acute (59) SOB (shortness of breath) Status: Acute (60) Spinal stenosis Status: Chronic (61) Suprapubic pain Status: Acute (62) Supraumbilical hernia Status: Chronic (63) Syncope Status: Acute (64) Urinary tract infection Status: Acute (65) Urinary tract obstruction due to kidney stone Status: Acute (66) Vaginal candidiasis Status: Acute Surgical Problems: (1) H/O hernia repair Status: Chronic Past History asthma, bipolar disorder, deep vein thrombosis, degenerative disc disease, high cholesterol, hypertension, hypothyroidism, migraines, other (splenomegaly, morbidy obesity, bowel obstuction, cellulitis of the abdomen, chronic pain, hypokalemia, RIMA, renal insufficiency) Past Surgical History: appendectomy, cholecystectomy, hysterectomy, orthopedic surgery (knee surgery), other (hernia repair) Family History Cancer Diabetes mellitus Gallbladder disease Heart disease Hypertension Lung disease Social History Hx Tobacco Use In Past Year?: Yes Smoking: other (current everyday smoker) Alcohol: never Drug use: none Marital status: Housing status: other Occupation status: unemployed, disabled Immunizations History of Influenza Vaccine: No Influenza Vaccine Date: Feb 20, 2011 History of Tetanus Vaccine?: 2009 Tetanus Immunization Date: Dec 21, 2005 History of Pneumococcal: Yes Pneumococcal Date: Feb 03, 2012 History of Hepatitis B Vaccine: No History of MDRO No Allergies Coded Allergies: Iodinated Diagnostic Agents (Verified Allergy, Intermediate, hives-PT DENIES SEE NOTE, 05/19/17) Per patient she has had it since without problem (01/25/16 Ioversal given with no pretreats and no mention of rxn; also given Ioversal 11/26/06 with pretreats) Adhesives (Verified Allergy, Mild, RED RASH CAUSED BY PAPER TAPE, 05/19/17) Alprazolam (Verified Allergy, Unknown, MAKES LOOPY,DO AND SAY SILLY THINGS , 05/19/17) Metformin (Verified Allergy, Unknown, HANDS FEET FACE NUMB, 05/19/17) Morphine (Verified Allergy, Unknown, SWELLING LEGS AND FEET, 05/19/17) Vancomycin (Verified Adverse Reaction, Severe, renal failure, required dialysis x 3 MONTHS, 05/19/17) Methylparaben (Verified Adverse Reaction, Intermediate, FLUID RETENTION, ) Oxymorphone (Verified Adverse Reaction, Intermediate, FLUID RETENTION, ) Gabapentin (Verified Adverse Reaction, Mild, Aphasia/Speech impairments, ) Sulfa Antibiotics (Verified Adverse Reaction, Mild, GI SYMPTOMS, 05/19/17) Acetaminophen (Verified Adverse Reaction, Unknown, Liver problems., ) Codeine (Verified Adverse Reaction, Unknown, UPSET STOMACH, 05/19/17) Pregabalin (Verified Adverse Reaction, Unknown, Aphasia/Speech impairments , 05/19/17) Medications Home Medications: Home Meds and Scripts Medications Dose Route/Sig Max Daily Dose Days Date Category Dose Instructions Tagamet (Cimetidine) 400 Mg Tab 400 Mg PO DAILY 05/19/17 Reported Ventolin Hfa (Albuterol) 200 Puffs/13567 Mcg Aers 2-4 Puffs INH Q6H PRN 05/10/17 Reported Roxicodone Ir (Oxycodone HCl) 5 Mg Tab 10 Mg PO Q6H PRN 05/05/17 Reported Flomax (Tamsulosin Hcl) 0.4 Mg Cap 0.4 Mg PO DAILY PRN 05/05/17 Reported Xarelto (Rivaroxaban) 20 Mg Tab 20 Mg PO QPM 01/09/17 Reported Levothyroxine Sodium 200 Mcg Tab 200 Mcg PO DAILY 01/09/17 Reported SYNTHROID BRAND NAME Coreg (Carvedilol) 12.5 Mg Tab 12.5 Mg PO BID 07/13/15 Reported Lexapro (Escitalopram Oxalate) 20 Mg Tab 20 Mg PO QPM 04/16/15 Reported Lantus Solostar (Insulin Glargine) 100 Unit/Ml Inj 75 Units SQ BID 04/16/15 Reported Oxygen Gas 3 Liters NA UD PRN 08/28/14 Reported Novolog Flexpen (Insulin Aspart) 100 Units/Ml Inj Units SC TIDM 08/28/14 Reported COVERAGE DIRECTED BY FOLLOWING SLIDING SCALE: 150 - 199 2 UNITS 200 - 249 4 UNITS 250 - 299 8 UNITS 300 - 349 12 UNITS 350 - 399 18 UNITS 400 - 449 24 UNITS 450 - 499 30 UNITS Cymbalta (Duloxetine Hcl) 60 Mg Cap 60 Mg PO BID 08/28/14 Reported Inpatient Medications: Current Inpatient Medications Medications (Trade) Dose Ordered Sig/Nelda Route Start Time Stop Time Status Last Admin Dose Admin Nitroglycerin (Nitrostat Tab) 0.4 mg UD PRN SL 05/20/17 01:45 06/19/17 01:44 Albuterol (Ventolin Hfa Inhaler) 2 puffs Q6H PRN INH 05/20/17 01:45 06/19/17 01:44 Carvedilol (Coreg Tab) 12.5 mg BID PO 05/20/17 09:00 06/19/17 08:59 05/20/17 08:18 12.5 MG Cimetidine (Tagamet Tab) 400 mg DAILY PO 05/20/17 09:00 06/19/17 08:59 05/20/17 08:17 400 MG Duloxetine HCl (Cymbalta Cap) 60 mg BID PO 05/20/17 09:00 06/19/17 08:59 05/20/17 08:17 60 MG Escitalopram Oxalate (Lexapro Tab) 20 mg QPM PO 05/20/17 21:00 2/25/18 20:59 Levothyroxine Sodium (Synthroid Tab) 200 mcg DAILYBB PO 05/20/17 06:00 06/19/17 05:59 05/20/17 06:22 200 MCG Oxycodone HCl (Roxicodone Immediate Rel Tab) 10 mg Q6H PRN PO 05/20/17 01:45 06/03/17 01:44 05/20/17 09:43 10 MG Furosemide 40 mg/ Syringe 4 ml @ 4 mls/min BID17 IV 05/20/17 09:00 06/19/17 08:59 Potassium Chloride (Klor-Con Tab) 40 meq BID PO 05/20/17 09:00 06/19/17 08:59 05/20/17 08:18 40 MEQ Ondansetron HCl (Zofran Odt) 8 mg Q6H PRN PO 05/20/17 02:00 06/19/17 01:59 Insulin Aspart (novoLOG ASPART) SLIDING SCALE If C... ACHS SC 05/20/17 07:00 06/19/17 06:59 05/20/17 08:22 5 UNITS Glucose (Glucose 40% Gel) 15-30 GRAMS 15 GRAMS... UD PRN PO 05/20/17 02:00 06/19/17 01:59 Glucose (Glucose Chew Tab) 4-8 Tablets 4 Tabl... UD PRN PO 05/20/17 02:00 06/19/17 01:59 Dextrose (Dextrose 50% 50ML Syringe) 25-50ML OF 50% DW IV FOR... UD PRN IV 05/20/17 02:00 06/19/17 01:59 Glucagon (Glucagon Inj) 1 mg UD PRN SQ 05/20/17 02:00 06/19/17 01:59 Ceftriaxone Sodium 1 gm/ Dextrose 50 ml @ 100 mls/hr Q24H IV 05/20/17 04:00 05/30/17 03:59 05/20/17 04:48 100 MLS/HR Insulin Glargine (Lantus Solostar Pen) 30 units BID SQ 05/20/17 09:00 06/19/17 08:59 05/20/17 08:21 30 UNITS Review of Systems Review of Systems Constitutional: No fever, No chills Eyes: No double vision Neurological: No dizzy Endocrine: No excessive thirst Gastrointestinal: + see HPI, + abdominal pain (suprapubic pain ), No nausea, No vomiting Cardiovascular: No chest pain Respiratory: No shortness of breath Skin: No rash Musculoskeletal: + back pain (left low back pain ) Female : + painful urination, + blood in urine Physical Exam Vital Signs: Vital Signs Past 12 Hours Date Time Temp Pulse Resp B/P (MAP) Pulse Ox O2 Delivery O2 Flow Rate FiO2 05/20/17 07:44 37.1 65 16 110/75 (87) 92 Room Air 05/20/17 04:08 36.8 66 20 135/72 95 Room Air 05/20/17 01:48 67 26 97 05/20/17 01:42 117/55 05/20/17 01:18 67 24 97 05/20/17 01:03 61 19 97 05/20/17 00:58 65 24 96 Room Air 05/20/17 00:43 66 24 96 05/20/17 00:31 144/89 05/20/17 00:28 64 25 97 05/20/17 00:23 136/88 05/20/17 00:13 67 94 05/20/17 00:01 145/94 05/19/17 23:58 65 26 99 Room Air 05/19/17 23:13 61 23 98 05/19/17 23:01 111/59 05/19/17 22:58 64 19 100 05/19/17 22:53 70 24 96 05/19/17 22:49 65 05/19/17 22:48 67 18 98 05/19/17 22:46 132/81 05/19/17 22:43 64 17 100 05/19/17 22:38 64 26 99 05/19/17 22:33 62 12 99 Room Air 05/19/17 22:31 132/81 05/19/17 22:29 142/81 05/19/17 22:15 36.7 70 24 124/74 99 Room Air Physical Exam: General Appearance: no apparent distress, + obese (morbidly) Eyes: bilateral eyes normal inspection ENT: hearing grossly normal Neck: no JVD Respiratory/Chest: no respiratory distress, no accessory muscle use Cardiovascular: no JVD Extremities: normal inspection Neurologic/Psychiatric: alert, normal mood/affect, oriented x 3 Skin: normal color Assessment & Plan Assessment & Plan A/P: Left ureteral stone AFVSS. Will check a KUB this morning to make sure her stent is in good position. Will add Pyridium and oxybutynin in for added pain control as I suspect her pain is stent irritation. Will also add Colace and Miralax as the oxybutynin and narcotics are likely to cause constipation. Will recheck a cath UC&S and fungal UC&S today. If fungal UC&S returns positive , would recommend consulting ID for input on management. No surgical intervention planned at this time until culture sensitivities return and she has been cleared with a stress test. May need to obtain medical and anesthesia clearance while inpatient given her difficulty obtaining rides to her appointments. Thanks for the consult. Will continue to follow along with primary service.
[2017-05-20 10:24] LABS: CKMB 1.7 ng/ml (0.5-3.6)
--- NOTE | 2017-05-20 11:06 | DIAGNOSTIC IMAGING REPORT ---
KUB CLINICAL HISTORY: Left ureteral stone. FINDINGS: 3 AP supine abdominal radiographs are correlated with abdominal CT dated 05/06/2017. A left ureteral stent is again noted. A 5 mm calcification is again seen along the proximal aspect of the stent at the level of L4. Phleboliths are noted in the pelvis. No additional calculi are seen projecting over either kidney. Surgical clips are present in the right upper and right mid abdomen. There is no bowel obstruction. The skeletal structures are osteopenic. Lumbosacral spondylosis and scoliosis is identified. IMPRESSION: 1. A left ureteral stent is unchanged in position. 2. A 5 mm calcification is again seen along the proximal stent at the level of L4. 3. No additional calcifications project over either kidney. Electronically signed by: Juan Doran M.D. 05/20/2017 11:05 AM Dictated Date/Time: 05/20/2017 11:02 AM
[2017-05-20] MEDS: OXYBUTYNIN CHLORIDE 5 MG TAB PO SCH ×2 (13:16→20:53)
[2017-05-20] MEDS ORDERED: NURSING VERBAL MED ORDER ONE (17:15)
[2017-05-20 18:29] LABS: CKMB 1.5 ng/ml (0.5-3.6)
--- NOTE | 2017-05-20 19:33 | Progress Note ---
Subjective Date of Service: May 20, 2017. Subjective Pt evaluation today including: conversation w/ patient, physical exam, lab review, conversation w/ senior sustainability consultant, review of inpatient medication list Pain: chronic low back pain PO Intake: adequate Voiding: no voiding problems patient diuresed significantly with single dose of Lasix breathing well, still with low back pain, eating well appreciate note from urology, no procedures planned labs reviewed, Cr stable UA had 2+ protein, will check random protein and creatinine doubt nephrotic syndrome Problem List Medical Problems: (1) Abdominal contusion Status: Acute (2) Abdominal wall pain Status: Acute (3) Acute abdominal pain Status: Acute (4) Acute exacerbation of chronic low back pain Status: Acute (5) Acute flank pain Status: Acute (6) Acute generalized abdominal pain Status: Acute (7) Anxiety Status: Acute (8) Asthma Status: Chronic (9) Back pain Status: Acute (10) Back pain Status: Acute (11) Back pain Status: Acute (12) Back pain Status: Acute (13) Back pain Status: Acute (14) Benign hypertension Status: Chronic (15) Bipolar disorder Status: Chronic (16) Cauda equina compression Status: Acute (17) Chronic pain Status: Chronic (18) Closed head injury Status: Acute (19) Contusion of left foot Status: Acute (20) Contusion of left knee Status: Acute (21) Contusion of multiple sites Status: Acute (22) Degenerative joint disease of spine Status: Chronic (23) Depression Status: Chronic (24) Diabetes mellitus type 2 Status: Chronic (25) Diabetes mellitus with hyperglycemia Status: Acute (26) Diabetes mellitus with hyperglycemia Status: Acute (27) Drug-seeking behavior Status: Chronic (28) Dyspnea Status: Acute (29) Failure to thrive in adult Status: Acute (30) Gastroesophageal reflux disease Status: Chronic (31) Headache Status: Acute (32) Headache Status: Acute (33) Hematuria Status: Acute (34) Hernia of abdominal wall Status: Chronic (35) Hyperammonemia Status: Acute (36) Hypothyroidism Status: Acute (37) Hypothyroidism Status: Chronic (38) Insomnia Status: Chronic (39) Insulin dependent type 2 diabetes mellitus, uncontrolled Status: Acute (40) Jaw pain Status: Acute (41) Kidney stone Status: Acute (42) Kidney stone on left side Status: Acute (43) Left flank pain Status: Acute (44) Left flank pain Status: Acute (45) LUMBAGO Status: Chronic (46) Migraine Status: Acute (47) Migraine Status: Chronic (48) Morbid obesity Status: Chronic (49) Morbid obesity Status: Chronic (50) Morbid obesity with BMI of 60.0-69.9, adult Status: Acute (51) Noncompliance with medication regimen Status: Acute (52) Obstructive sleep apnea Status: Chronic (53) Poorly controlled diabetes mellitus Status: Acute (54) Post-op pain Status: Acute (55) Right flank pain Status: Acute (56) Right-sided chest wall pain Status: Acute (57) Sepsis Status: Acute (58) Shoulder pain Status: Acute (59) SOB (shortness of breath) Status: Acute (60) Spinal stenosis Status: Chronic (61) Suprapubic pain Status: Acute (62) Supraumbilical hernia Status: Chronic (63) Syncope Status: Acute (64) Urinary tract infection Status: Acute (65) Urinary tract obstruction due to kidney stone Status: Acute (66) Vaginal candidiasis Status: Acute Surgical Problems: (1) H/O hernia repair Status: Chronic Objective Vital Signs Date Time Temp Pulse Resp B/P (MAP) Pulse Ox O2 Delivery O2 Flow Rate FiO2 05/20/17 16:17 93/42 (59) 05/20/17 15:48 36.8 52 16 84/43 (57) 93 Room Air 84/48 (60) 05/20/17 11:46 36.5 62 18 111/77 (88) 94 Room Air 05/20/17 07:44 37.1 65 16 110/75 (87) 92 Room Air 05/20/17 04:08 36.8 66 20 135/72 95 Room Air 05/20/17 01:48 67 26 97 05/20/17 01:42 117/55 05/20/17 01:18 67 24 97 05/20/17 01:03 61 19 97 05/20/17 00:58 65 24 96 Room Air 05/20/17 00:43 66 24 96 05/20/17 00:31 144/89 05/20/17 00:28 64 25 97 05/20/17 00:23 136/88 05/20/17 00:13 67 94 05/20/17 00:01 145/94 05/19/17 23:58 65 26 99 Room Air 05/19/17 23:13 61 23 98 1/25/18 23:01 111/59 05/19/17 22:58 64 19 100 05/19/17 22:53 70 24 96 05/19/17 22:49 65 05/19/17 22:48 67 18 98 05/19/17 22:46 132/81 05/19/17 22:43 64 17 100 05/19/17 22:38 64 26 99 05/19/17 22:33 62 12 99 Room Air 05/19/17 22:31 132/81 05/19/17 22:29 142/81 05/19/17 22:15 36.7 70 24 124/74 99 Room Air Physical Exam General Appearance: no apparent distress, + obese Eyes: normal inspection, EOMI, sclerae normal ENT: normal ENT inspection, hearing grossly normal, pharynx normal Neck: supple, no adenopathy, no JVD, trachea midline Respiratory/Chest: chest non-tender, lungs clear, normal breath sounds, no respiratory distress, no accessory muscle use Cardiovascular: regular rate, rhythm, no edema, no gallop, no JVD, no murmur Abdomen: normal bowel sounds, non tender, soft, no organomegaly Extremities: non-tender, normal inspection, no calf tenderness, pelvis stable, + pedal edema (as well as hand edema), + pertinent finding (decreased ROM of lower back) Neurologic/Psychiatric: supply and distribution manager II-XII nml as tested, no motor/sensory deficits, alert, normal mood/affect, oriented x 3 Skin: normal color, warm/dry, no rash Lymphatic: no adenopathy Laboratory Results Last 24 Hours Test 05/19/17 22:45 05/19/17 23:08 05/19/17 23:40 05/20/17 00:29 White Blood Count 6.23 K/uL Red Blood Count 3.42 M/uL Hemoglobin 11.5 g/dL Hematocrit 34.9 % Mean Corpuscular Volume 102.0 fL Mean Corpuscular Hemoglobin 33.6 pg Mean Corpuscular Hemoglobin Concent 33.0 g/dl Platelet Count 165 K/uL Mean Platelet Volume 9.3 fL Neutrophils (%) (Auto) 65.9 % Lymphocytes (%) (Auto) 25.0 % Monocytes (%) (Auto) 6.4 % Eosinophils (%) (Auto) 2.1 % Basophils (%) (Auto) 0.3 % Neutrophils # (Auto) 4.10 K/uL Lymphocytes # (Auto) 1.56 K/uL Monocytes # (Auto) 0.40 K/uL Eosinophils # (Auto) 0.13 K/uL Basophils # (Auto) 0.02 K/uL RDW Standard Deviation 62.8 fL RDW Coefficient of Variation 16.9 % Immature Granulocyte % (Auto) 0.3 % Immature Granulocyte # (Auto) 0.02 K/uL Prothrombin Time 11.3 SECONDS Prothromb Time International Ratio 1.1 Activated Partial Thromboplast Time 31.4 SECONDS Partial Thromboplastin Ratio 1.2 Sodium Level 135 mmol/L Potassium Level mmol/L 3.6 mmol/L Chloride Level 101 mmol/L Carbon Dioxide Level 30 mmol/L Anion Gap 4.0 mmol/L Blood Urea Nitrogen 7 mg/dl Creatinine 1.02 mg/dl Est Creatinine Clear Calc Drug Dose 100.7 ml/min Estimated GFR () 72.7 Estimated GFR (Non- 62.8 BUN/Creatinine Ratio 6.9 Random Glucose 154 mg/dl Calcium Level 8.7 mg/dl Phosphorus Level 3.0 mg/dl Magnesium Level mg/dl Total Bilirubin 0.9 mg/dl Direct Bilirubin mg/dl 0.2 mg/dl Aspartate Amino Transf (AST/SGOT) U/L 23 U/L Alanine Aminotransferase (ALT/SGPT) 19 U/L Alkaline Phosphatase 103 U/L Total Creatine Kinase U/L 99 U/L Creatine Kinase MB 1.6 ng/ml Troponin I < 0.015 ng/ml Pro-B-Type Natriuretic Peptide 113 pg/ml Total Protein 8.0 gm/dl Albumin 2.9 gm/dl Lipase 30 U/L Creatine Kinase MB Ratio Urine Color RED Urine Appearance CLOUDY Urine pH 7.5 Urine Specific [place] 1.015 Urine Protein 2+ Urine Glucose (UA) NEG Urine Ketones NEG Urine Occult Blood 2+ Urine Nitrite NEG Urine Bilirubin NEG Urine Urobilinogen NEG Urine Leukocyte Esterase SMALL Urine RBC >30 /hpf Urine WBC 5-10 /hpf Urine Epithelial Cells 20-30 /lpf Urine Bacteria 1+ Test 05/20/17 07:06 05/20/17 09:35 05/20/17 11:34 05/20/17 16:51 Bedside Glucose 163 mg/dl 208 mg/dl 127 mg/dl Total Creatine Kinase 97 U/L Creatine Kinase MB 1.7 ng/ml Creatine Kinase MB Ratio 1.8 Troponin I < 0.015 ng/ml Test 05/20/17 17:53 Total Creatine Kinase 100 U/L Creatine Kinase MB 1.5 ng/ml Creatine Kinase MB Ratio 1.5 Troponin I < 0.015 ng/ml Assessment and Plan 51 yo female with - Volume overload, anasarca unclear etiology, echo in March could not be interpreted responded well to Lasix will check echo, look for proteinuria give Lasix again tomorrow AM after AM labs - 4 mm left UPJ Kidney stone/left ureteral stent/hematuria-- Continue Rocephin, afebrile, WBC normal urology recommends repeat urine culture, fungal culture no plans for cystoscopy - H/o HTN, atrial fibrillation rates controlled, continue Coreg resume Xarelto tomorrow Diabetes mellitus-- Decrease Lantus 75-30 units subcutaneous twice a day while nothing by mouth for possible procedure Place on Accu-Cheks before meals and at bedtime with NovoLog coverage per scale Hypothyroidism-- Continue levothyroxine sodium 200 g by mouth daily Anxiety with depression-- Continue duloxetine 60 mg by mouth twice a day and lisinopril 20 mg by mouth every evening GERD--continue Tagamet 400 mg by mouth daily.
[2017-05-20 20:01] LABS: URINE PROTEIN (TOTAL)RANDOM UR 63.9 mg/dl (0-11.9)
[2017-05-20] MEDS: ESCITALOPRAM OXALATE 20 MG TAB PO SCH (20:54)
[2017-05-20] MEDS: DOCUSATE SODIUM 100 MG CAP PO SCH (20:54)
[2017-05-20] MEDS ORDERED: RIVAROXABAN 20 MG TAB PO SCH (21:00)
[2017-05-21 04:00] VITALS: BP 108/45; PULSE 46; TEMP 36.8; O2SAT 96
[2017-05-21] MEDS: CEFTRIAXONE SOD INJ 1 GM in DEXTROSE 5% ADD-VANTAGE 50ML 50 ML IV SCH (04:22)
[2017-05-21] MEDS: OXYCODONE HCL IR 5 MG TAB (IMMEDIATE RELEASE) PO PRN ×4 (04:45→23:09)
[2017-05-21] MEDS: LEVOTHYROXINE 200 MCG TAB PO SCH (06:26)
[2017-05-21 06:34] LABS: BASO % 0.2 %; BASO ABS # 0.01 K/uL (0-0.2); EOS % 2.8 %; EOS ABS # 0.17 K/uL (0-0.5); HEMATOCRIT 30.5 % (37-47); IG# 0.02 K/uL (0.00-0.02); LYMPH % 34.4 %; LYMPH ABS # 2.06 K/uL (1.2-3.4); MEAN CELL VOLUME 102.3 fL (80-100); MEAN CORPUSCULAR HEMOGLOBIN 33.6 pg (25-34); MEAN CORPUSCULAR HGB CONC 32.8 g/dl (32-36); MEAN PLATELET VOLUME 8.8 fL (7.4-10.4); MONO % 7.5 %; MONO ABS # 0.45 K/uL (0.11-0.59); NEUT % 54.8 %; NEUT ABS # 3.27 K/uL (1.4-6.5); PLATELET COUNT 114 K/uL (130-400); RED CELL DISTRIBUTION WIDTH CV 16.8 % (11.5-14.5); RED CELL DISTRIBUTION WIDTH SD 62.6 fL (36.4-46.3); WHITE BLOOD COUNT 5.98 K/uL (4.8-10.8)
[2017-05-21 07:14] LABS: CREATININE 0.98 mg/dl (0.60-1.20); POTASSIUM 3.8 mmol/L (3.5-5.1)
[2017-05-21 07:37] VITALS: BP 118/77; PULSE 52; TEMP 36.9; O2SAT 94
[2017-05-21] MEDS: CARVEDILOL 12.5 MG TAB PO SCH ×2 (07:59→20:48)
[2017-05-21] MEDS: POLYETHYLENE (MIRALAX) 17 GM PACK PO SCH (07:59)
[2017-05-21] MEDS: CIMETIDINE 400 MG TAB PO SCH (07:59)
[2017-05-21] MEDS: DOCUSATE SODIUM 100 MG CAP PO SCH ×2 (07:59→20:50)
[2017-05-21] MEDS: DULOXETINE HCL 60 MG CAP PO SCH ×2 (07:59→20:48)
[2017-05-21] MEDS: OXYBUTYNIN CHLORIDE 5 MG TAB PO SCH ×3 (08:00→20:49)
[2017-05-21] MEDS: POTASSIUM CHLORIDE 20 MEQ TABCR PO SCH ×2 (08:00→20:49)
[2017-05-21] MEDS: INSULIN ASPART 100 UNITS/ML 3 ML PEN SC SCH ×4 (08:05→20:52)
[2017-05-21] MEDS: INSULIN GLARGINE SOLOSTAR 100 UNITS/ML 3 ML PEN SQ SCH ×2 (08:06→20:55)
[2017-05-21] MEDS ORDERED: RIVAROXABAN 10 MG TAB PO ONE (10:19)
--- NOTE | 2017-05-21 10:28 | Progress Note ---
Subjective Date of Service: May 21, 2017. Subjective Pt evaluation today including: conversation w/ patient, physical exam, lab review, review of inpatient medication list Pain: chronic back pain PO Intake: adequate Voiding: no voiding problems patient c/o back pain, says it is worse than normal, cannot get any sleep, maybe 15 minutes eating well, no chest pain or pressure no dyspnea reviewed labs, Cr stable urine protein slightly high but not significant, 200mg a day follow up on echo Problem List Medical Problems: (1) Abdominal contusion Status: Acute (2) Abdominal wall pain Status: Acute (3) Acute abdominal pain Status: Acute (4) Acute exacerbation of chronic low back pain Status: Acute (5) Acute flank pain Status: Acute (6) Acute generalized abdominal pain Status: Acute (7) Anxiety Status: Acute (8) Asthma Status: Chronic (9) Back pain Status: Acute (10) Back pain Status: Acute (11) Back pain Status: Acute (12) Back pain Status: Acute (13) Back pain Status: Acute (14) Benign hypertension Status: Chronic (15) Bipolar disorder Status: Chronic (16) Cauda equina compression Status: Acute (17) Chronic pain Status: Chronic (18) Closed head injury Status: Acute (19) Contusion of left foot Status: Acute (20) Contusion of left knee Status: Acute (21) Contusion of multiple sites Status: Acute (22) Degenerative joint disease of spine Status: Chronic (23) Depression Status: Chronic (24) Diabetes mellitus type 2 Status: Chronic (25) Diabetes mellitus with hyperglycemia Status: Acute (26) Diabetes mellitus with hyperglycemia Status: Acute (27) Drug-seeking behavior Status: Chronic (28) Dyspnea Status: Acute (29) Failure to thrive in adult Status: Acute (30) Gastroesophageal reflux disease Status: Chronic (31) Headache Status: Acute (32) Headache Status: Acute (33) Hematuria Status: Acute (34) Hernia of abdominal wall Status: Chronic (35) Hyperammonemia Status: Acute (36) Hypothyroidism Status: Acute (37) Hypothyroidism Status: Chronic (38) Insomnia Status: Chronic (39) Insulin dependent type 2 diabetes mellitus, uncontrolled Status: Acute (40) Jaw pain Status: Acute (41) Kidney stone Status: Acute (42) Kidney stone on left side Status: Acute (43) Left flank pain Status: Acute (44) Left flank pain Status: Acute (45) LUMBAGO Status: Chronic (46) Migraine Status: Acute (47) Migraine Status: Chronic (48) Morbid obesity Status: Chronic (49) Morbid obesity Status: Chronic (50) Morbid obesity with BMI of 60.0-69.9, adult Status: Acute (51) Noncompliance with medication regimen Status: Acute (52) Obstructive sleep apnea Status: Chronic (53) Poorly controlled diabetes mellitus Status: Acute (54) Post-op pain Status: Acute (55) Right flank pain Status: Acute (56) Right-sided chest wall pain Status: Acute (57) Sepsis Status: Acute (58) Shoulder pain Status: Acute (59) SOB (shortness of breath) Status: Acute (60) Spinal stenosis Status: Chronic (61) Suprapubic pain Status: Acute (62) Supraumbilical hernia Status: Chronic (63) Syncope Status: Acute (64) Urinary tract infection Status: Acute (65) Urinary tract obstruction due to kidney stone Status: Acute (66) Vaginal candidiasis Status: Acute Surgical Problems: (1) H/O hernia repair Status: Chronic Review of Systems Constitutional: + weakness, + fatigue Cardiac: + edema Musculoskeletal: + joint pain (low back) Female : + dysuria, + urinary frequency All Other Systems: Reviewed and Negative Medications Current Inpatient Medications Medications (Trade) Dose Ordered Sig/Nelda Route Start Time Stop Time Status Last Admin Dose Admin Nitroglycerin (Nitrostat Tab) 0.4 mg UD PRN SL 05/20/17 01:45 06/19/17 01:44 Albuterol (Ventolin Hfa Inhaler) 2 puffs Q6H PRN INH 05/20/17 01:45 06/19/17 01:44 Carvedilol (Coreg Tab) 12.5 mg BID PO 05/20/17 09:00 06/19/17 08:59 05/21/17 07:59 12.5 MG Cimetidine (Tagamet Tab) 400 mg DAILY PO 05/20/17 09:00 06/19/17 08:59 05/21/17 07:59 400 MG Duloxetine HCl (Cymbalta Cap) 60 mg BID PO 05/20/17 09:00 06/19/17 08:59 05/21/17 07:59 60 MG Escitalopram Oxalate (Lexapro Tab) 20 mg QPM PO 05/20/17 21:00 06/19/17 20:59 05/20/17 20:54 20 MG Levothyroxine Sodium (Synthroid Tab) 200 mcg DAILYBB PO 05/20/17 06:00 06/19/17 05:59 05/21/17 06:26 200 MCG Oxycodone HCl (Roxicodone Immediate Rel Tab) 10 mg Q6H PRN PO 05/20/17 01:45 06/03/17 01:44 05/21/17 04:45 10 MG Potassium Chloride (Klor-Con Tab) 40 meq BID PO 05/20/17 09:00 06/19/17 08:59 05/21/17 08:00 40 MEQ Ondansetron HCl (Zofran Odt) 8 mg Q6H PRN PO 05/20/17 02:00 06/19/17 01:59 Insulin Aspart (novoLOG ASPART) SLIDING SCALE If C... ACHS SC 05/20/17 07:00 06/19/17 06:59 05/21/17 08:05 7 UNITS Glucose (Glucose 40% Gel) 15-30 GRAMS 15 GRAMS... UD PRN PO 05/20/17 02:00 06/19/17 01:59 Glucose (Glucose Chew Tab) 4-8 Tablets 4 Tabl... UD PRN PO 05/20/17 02:00 06/19/17 01:59 Dextrose (Dextrose 50% 50ML Syringe) 25-50ML OF 50% DW IV FOR... UD PRN IV 05/20/17 02:00 06/19/17 01:59 Glucagon (Glucagon Inj) 1 mg UD PRN SQ 05/20/17 02:00 06/19/17 01:59 Ceftriaxone Sodium 1 gm/ Dextrose 50 ml @ 100 mls/hr Q24H IV 05/20/17 04:00 05/30/17 03:59 05/21/17 04:22 100 MLS/HR Insulin Glargine (Lantus Solostar Pen) 30 units BID SQ 05/20/17 09:00 06/19/17 08:59 05/21/17 08:06 30 UNITS Oxybutynin Chloride (Ditropan Tab) 5 mg TID PO 05/20/17 14:00 2/25/18 13:59 05/21/17 08:00 5 MG Phenazopyridine HCl (Pyridium Tab) 200 mg TID PRN PO 05/20/17 10:00 06/19/17 09:59 05/20/17 13:16 200 MG Docusate Sodium (coLACE CAP) 100 mg BID PO 05/20/17 21:00 06/19/17 20:59 05/21/17 07:59 100 MG Polyethylene (Miralax Powder Packet) 17 gm DAILY PO 05/21/17 09:00 06/20/17 08:59 05/21/17 07:59 17 GM Furosemide (Lasix Tab) 40 mg NOW ONCE PO 05/21/17 10:45 05/21/17 10:46 Furosemide (Lasix Tab) 40 mg QAM PO 05/22/17 09:00 06/21/17 08:59 Objective Vital Signs Date Time Temp Pulse Resp B/P (MAP) Pulse Ox O2 Delivery O2 Flow Rate FiO2 05/21/17 08:00 Room Air 05/21/17 07:37 36.9 52 18 118/77 (91) 94 05/21/17 04:00 Room Air 05/21/17 04:00 36.8 46 20 108/45 (66) 96 Room Air 05/21/17 00:00 Room Air 05/20/17 23:45 36.6 48 22 92/40 (57) 93 Room Air 05/20/17 20:00 Room Air 05/20/17 19:23 36.7 50 20 97/47 (64) 95 Room Air 05/20/17 16:17 93/42 (59) 05/20/17 15:48 36.8 52 16 84/43 (57) 93 Room Air 84/48 (60) 05/20/17 11:46 36.5 62 18 111/77 (88) 94 Room Air Physical Exam General Appearance: no apparent distress, + obese Eyes: normal inspection, EOMI, sclerae normal ENT: normal ENT inspection, hearing grossly normal, pharynx normal Neck: supple, no adenopathy, no JVD, trachea midline Respiratory/Chest: chest non-tender, lungs clear, normal breath sounds, no respiratory distress, no accessory muscle use Cardiovascular: regular rate, rhythm, no gallop, no JVD, no murmur Abdomen: normal bowel sounds, non tender, soft, no organomegaly Extremities: non-tender, normal inspection, no calf tenderness, normal capillary refill, pelvis stable, + pedal edema, + pertinent finding (decreased ROM of low back) Neurologic/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: 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 as tested, no motor/sensory deficits, alert, normal mood/affect, oriented x 3 Skin: normal color, warm/dry, no rash Laboratory Results Last 24 Hours Test 05/20/17 11:34 05/20/17 16:51 05/20/17 17:53 05/20/17 19:22 Bedside Glucose 208 mg/dl 127 mg/dl Total Creatine Kinase 100 U/L Creatine Kinase MB 1.5 ng/ml Creatine Kinase MB Ratio 1.5 Troponin I < 0.015 ng/ml Urine Random Creatinine 284.0 mg/dl Urine Random Total Protein 63.9 mg/dl Test 05/20/17 20:47 05/21/17 06:12 05/21/17 07:13 Bedside Glucose 123 mg/dl 112 mg/dl White Blood Count 5.98 K/uL Red Blood Count 2.98 M/uL Hemoglobin 10.0 g/dL Hematocrit 30.5 % Mean Corpuscular Volume 102.3 fL Mean Corpuscular Hemoglobin 33.6 pg Mean Corpuscular Hemoglobin Concent 32.8 g/dl Platelet Count 114 K/uL Mean Platelet Volume 8.8 fL Neutrophils (%) (Auto) 54.8 % Lymphocytes (%) (Auto) 34.4 % Monocytes (%) (Auto) 7.5 % Eosinophils (%) (Auto) 2.8 % Basophils (%) (Auto) 0.2 % Neutrophils # (Auto) 3.27 K/uL Lymphocytes # (Auto) 2.06 K/uL Monocytes # (Auto) 0.45 K/uL Eosinophils # (Auto) 0.17 K/uL Basophils # (Auto) 0.01 K/uL RDW Standard Deviation 62.6 fL RDW Coefficient of Variation 16.8 % Immature Granulocyte % (Auto) 0.3 % Immature Granulocyte # (Auto) 0.02 K/uL Sodium Level 138 mmol/L Potassium Level 3.8 mmol/L Chloride Level 105 mmol/L Carbon Dioxide Level 29 mmol/L Anion Gap 4.0 mmol/L Blood Urea Nitrogen 10 mg/dl Creatinine 0.98 mg/dl Est Creatinine Clear Calc Drug Dose 100.3 ml/min Estimated GFR () 76.3 Estimated GFR (Non- 65.9 BUN/Creatinine Ratio 10.3 Random Glucose 95 mg/dl Calcium Level 8.0 mg/dl Magnesium Level 2.0 mg/dl Assessment and Plan 51 yo female with - Volume overload, anasarca unclear etiology, echo in March could not be interpreted responded well to Lasix, will continue Lasix 40mg PO daily will check echo Proteinuria is 200mg a day - 4 mm left UPJ Kidney stone/left ureteral stent/hematuria-- Continue Rocephin, afebrile, WBC normal if no growth tomorrow, will stop Rocephin urology recommends repeat urine culture, fungal culture no plans for cystoscopy - H/o HTN, atrial fibrillation rates controlled, continue Coreg resume Xarelto today Diabetes mellitus-- Decrease Lantus 75-30 units subcutaneous twice a day while nothing by mouth for possible procedure Place on Accu-Cheks before meals and at bedtime with NovoLog coverage per scale Hypothyroidism-- Continue levothyroxine sodium 200 g by mouth daily Anxiety with depression-- Continue duloxetine 60 mg by mouth twice a day and lisinopril 20 mg by mouth every evening GERD--continue Tagamet 400 mg by mouth daily. Transfer to medical floor
[2017-05-21] MEDS ORDERED: FUROSEMIDE 40 MG TAB PO ONE (10:45)
[2017-05-21] MEDS: RIVAROXABAN 20 MG TAB PO SCH (10:54)
--- NOTE | 2017-05-21 12:26 | ECHOCARDIOGRAM REPORT ---
*NOTICE TO RECEIVING REPUBLICAN AGENCY This information is strictly Confidential and protected under [place] law. [place] law prohibits you from making any further disclosure of this information unless further disclosure is expressly permitted by the written consent of the person to whom it pertains or is authorized by law. A general authorization for the release of medical or other information is not sufficient for this purpose. Hospital accepts no responsibility if the information is made available to any other person, INCLUDING THE PATIENT. Interpretation Summary * Name: EMANUEL MOSS Study Date: 05/21/2017 11:11 AM BP: 108/45 mmHg * Patient Location: [facility] HR: 49 * : 1965 (M/d/yyyy) Gender: Female Height: 62 in * Age: 51 yrs Ethnicity: [place] Weight: 356 lb * Ordering Physician: Aquiles Ramirez DO * Performed By: Christina Pitt RDCS * * Reason For Study: Congestive Heart Failure * BSA: 2.4 m2 * -- Conclusions -- * Limited study with contrast due to poor echo windows. * Normal LV Fxn * LVEF 65-70% * No obvious regional wall motion abnormalities * The RV (best seen in the parasternal long images) appears dilated and the RV free wall is hypokinetic. Procedure Details * Limited views were obtained. * The study was technically difficult. * A contrast injection of Definity was performed to improve assessment of LV function. * Contrast was injected into an intravenous site in the left arm. * One vial of Definity ultrasound contrast was diluted in normal saline to a total volume of 10 ml. A total of '3' ml of solution was administered during imaging. * Lot # [id number] of Definity utilized for procedure. * Expiration date . * The attending nurse who injected the contrast agent was Beth Elena RN.
[2017-05-21 12:35] VITALS: BP 118/77; PULSE 52; TEMP 36.9; O2SAT 94
[2017-05-21] MEDS: HYDROmorphone INJ 0.5 MG/0.5 ML SYR IV PRN (14:20)
[2017-05-21 15:25] VITALS: BP 97/57; PULSE 66; TEMP 36.6; O2SAT 90
[2017-05-21] MEDS: ESCITALOPRAM OXALATE 20 MG TAB PO SCH (20:56)
[2017-05-21 20:58] VITALS: BP 105/62; PULSE 50
[2017-05-21 23:08] VITALS: BP 99/62; PULSE 48; TEMP 36.6; O2SAT 94
[2017-05-22] VITALS (8 sets, daily range): BP systolic 92–127; BP diastolic 52–76; PULSE 42–68; TEMP 36.5–36.7; O2SAT 94–98
[2017-05-22] MEDS: HYDROmorphone INJ 0.5 MG/0.5 ML SYR IV PRN ×2 (02:14→15:01)
[2017-05-22] MEDS: CEFTRIAXONE SOD INJ 1 GM in DEXTROSE 5% ADD-VANTAGE 50ML 50 ML IV SCH (03:15)
[2017-05-22] MEDS: LEVOTHYROXINE 200 MCG TAB PO SCH (05:49)
[2017-05-22 06:46] LABS: BASO % 0.4 %; BASO ABS # 0.03 K/uL (0-0.2); EOS % 2.6 %; EOS ABS # 0.18 K/uL (0-0.5); HEMATOCRIT 30.9 % (37-47); HEMOGLOBIN 10.1 g/dL (12.0-16.0); IG# 0.03 K/uL (0.00-0.02); LYMPH % 37.3 %; LYMPH ABS # 2.62 K/uL (1.2-3.4); MEAN CELL VOLUME 102.7 fL (80-100); MEAN CORPUSCULAR HEMOGLOBIN 33.6 pg (25-34); MEAN CORPUSCULAR HGB CONC 32.7 g/dl (32-36); MEAN PLATELET VOLUME 9.1 fL (7.4-10.4); MONO % 7.5 %; MONO ABS # 0.53 K/uL (0.11-0.59); NEUT % 51.8 %; NEUT ABS # 3.63 K/uL (1.4-6.5); PLATELET COUNT 120 K/uL (130-400); RED CELL DISTRIBUTION WIDTH CV 16.9 % (11.5-14.5); RED CELL DISTRIBUTION WIDTH SD 63.5 fL (36.4-46.3); WHITE BLOOD COUNT 7.02 K/uL (4.8-10.8)
[2017-05-22 07:18] LABS: CREATININE 1.02 mg/dl (0.60-1.20)
[2017-05-22] MEDS: CARVEDILOL 12.5 MG TAB PO SCH ×2 (08:00→20:43)
[2017-05-22] MEDS: INSULIN ASPART 100 UNITS/ML 3 ML PEN SC SCH ×4 (08:33→20:44)
[2017-05-22] MEDS: INSULIN GLARGINE SOLOSTAR 100 UNITS/ML 3 ML PEN SQ SCH ×2 (08:34→20:48)
[2017-05-22] MEDS: DULOXETINE HCL 60 MG CAP PO SCH ×2 (08:36→20:44)
[2017-05-22] MEDS: DOCUSATE SODIUM 100 MG CAP PO SCH ×2 (08:36→20:44)
[2017-05-22] MEDS: CIMETIDINE 400 MG TAB PO SCH (08:36)
[2017-05-22] MEDS: OXYBUTYNIN CHLORIDE 5 MG TAB PO SCH ×3 (08:36→20:45)
[2017-05-22] MEDS: FUROSEMIDE 40 MG TAB PO SCH (08:37)
[2017-05-22] MEDS: POTASSIUM CHLORIDE 20 MEQ TABCR PO SCH (08:37)
[2017-05-22] MEDS: POLYETHYLENE (MIRALAX) 17 GM PACK PO SCH (08:38)
[2017-05-22] MEDS: OXYCODONE HCL IR 5 MG TAB (IMMEDIATE RELEASE) PO PRN ×2 (10:26→18:07)
--- NOTE | 2017-05-22 16:29 | Progress Note ---
Subjective Date of Service: May 22, 2017. Subjective Pt evaluation today including: conversation w/ patient, physical exam, lab review, review of inpatient medication list Pain: low back pain PO Intake: adequate Voiding: no voiding problems patient feeling better today, sitting up at the side of the bed eating lunch pain is better reviewed labs, Cr stable at 1.0 reviewed echo results, normal EF and normal valves Problem List Medical Problems: (1) Abdominal contusion Status: Acute (2) Abdominal wall pain Status: Acute (3) Acute abdominal pain Status: Acute (4) Acute exacerbation of chronic low back pain Status: Acute (5) Acute flank pain Status: Acute (6) Acute generalized abdominal pain Status: Acute (7) Anxiety Status: Acute (8) Asthma Status: Chronic (9) Back pain Status: Acute (10) Back pain Status: Acute (11) Back pain Status: Acute (12) Back pain Status: Acute (13) Back pain Status: Acute (14) Benign hypertension Status: Chronic (15) Bipolar disorder Status: Chronic (16) Cauda equina compression Status: Acute (17) Chronic pain Status: Chronic (18) Closed head injury Status: Acute (19) Contusion of left foot Status: Acute (20) Contusion of left knee Status: Acute (21) Contusion of multiple sites Status: Acute (22) Degenerative joint disease of spine Status: Chronic (23) Depression Status: Chronic (24) Diabetes mellitus type 2 Status: Chronic (25) Diabetes mellitus with hyperglycemia Status: Acute (26) Diabetes mellitus with hyperglycemia Status: Acute (27) Drug-seeking behavior Status: Chronic (28) Dyspnea Status: Acute (29) Failure to thrive in adult Status: Acute (30) Gastroesophageal reflux disease Status: Chronic (31) Headache Status: Acute (32) Headache Status: Acute (33) Hematuria Status: Acute (34) Hernia of abdominal wall Status: Chronic (35) Hyperammonemia Status: Acute (36) Hypothyroidism Status: Acute (37) Hypothyroidism Status: Chronic (38) Insomnia Status: Chronic (39) Insulin dependent type 2 diabetes mellitus, uncontrolled Status: Acute (40) Jaw pain Status: Acute (41) Kidney stone Status: Acute (42) Kidney stone on left side Status: Acute (43) Left flank pain Status: Acute (44) Left flank pain Status: Acute (45) LUMBAGO Status: Chronic (46) Migraine Status: Acute (47) Migraine Status: Chronic (48) Morbid obesity Status: Chronic (49) Morbid obesity Status: Chronic (50) Morbid obesity with BMI of 60.0-69.9, adult Status: Acute (51) Noncompliance with medication regimen Status: Acute (52) Obstructive sleep apnea Status: Chronic (53) Poorly controlled diabetes mellitus Status: Acute (54) Post-op pain Status: Acute (55) Right flank pain Status: Acute (56) Right-sided chest wall pain Status: Acute (57) Sepsis Status: Acute (58) Shoulder pain Status: Acute (59) SOB (shortness of breath) Status: Acute (60) Spinal stenosis Status: Chronic (61) Suprapubic pain Status: Acute (62) Supraumbilical hernia Status: Chronic (63) Syncope Status: Acute (64) Urinary tract infection Status: Acute (65) Urinary tract obstruction due to kidney stone Status: Acute (66) Vaginal candidiasis Status: Acute Surgical Problems: (1) H/O hernia repair Status: Chronic Review of Systems Constitutional: + weakness, + fatigue Musculoskeletal: + joint pain (low back, chronic) All Other Systems: Reviewed and Negative Medications Current Inpatient Medications Medications (Trade) Dose Ordered Sig/Nelda Route Start Time Stop Time Status Last Admin Dose Admin Nitroglycerin (Nitrostat Tab) 0.4 mg UD PRN SL 05/20/17 01:45 06/19/17 01:44 Albuterol (Ventolin Hfa Inhaler) 2 puffs Q6H PRN INH 05/20/17 01:45 06/19/17 01:44 Carvedilol (Coreg Tab) 12.5 mg BID PO 05/20/17 09:00 06/19/17 08:59 05/21/17 07:59 12.5 MG Cimetidine (Tagamet Tab) 400 mg DAILY PO 05/20/17 09:00 06/19/17 08:59 05/22/17 08:36 400 MG Duloxetine HCl (Cymbalta Cap) 60 mg BID PO 05/20/17 09:00 06/19/17 08:59 05/22/17 08:36 60 MG Escitalopram Oxalate (Lexapro Tab) 20 mg QPM PO 05/20/17 21:00 06/19/17 20:59 05/21/17 20:56 20 MG Levothyroxine Sodium (Synthroid Tab) 200 mcg DAILYBB PO 05/20/17 06:00 06/19/17 05:59 05/22/17 05:49 200 MCG Oxycodone HCl (Roxicodone Immediate Rel Tab) 10 mg Q6H PRN PO 05/20/17 01:45 06/03/17 01:44 05/22/17 10:26 10 MG Potassium Chloride (Klor-Con Tab) 40 meq BID PO 05/20/17 09:00 06/19/17 08:59 05/22/17 08:37 40 MEQ Ondansetron HCl (Zofran Odt) 8 mg Q6H PRN PO 05/20/17 02:00 06/19/17 01:59 Insulin Aspart (novoLOG ASPART) SLIDING SCALE If C... ACHS SC 05/20/17 07:00 06/19/17 06:59 05/22/17 12:38 4 UNITS Glucose (Glucose 40% Gel) 15-30 GRAMS 15 GRAMS... UD PRN PO 05/20/17 02:00 06/19/17 01:59 Glucose (Glucose Chew Tab) 4-8 Tablets 4 Tabl... UD PRN PO 05/20/17 02:00 06/19/17 01:59 Dextrose (Dextrose 50% 50ML Syringe) 25-50ML OF 50% DW IV FOR... UD PRN IV 05/20/17 02:00 06/19/17 01:59 Glucagon (Glucagon Inj) 1 mg UD PRN SQ 05/20/17 02:00 06/19/17 01:59 Ceftriaxone Sodium 1 gm/ Dextrose 50 ml @ 100 mls/hr Q24H IV 05/20/17 04:00 05/30/17 03:59 05/22/17 03:15 100 MLS/HR Insulin Glargine (Lantus Solostar Pen) 30 units BID SQ 05/20/17 09:00 06/19/17 08:59 05/22/17 08:34 30 UNITS Oxybutynin Chloride (Ditropan Tab) 5 mg TID PO 05/20/17 14:00 06/19/17 13:59 05/22/17 14:23 5 MG Phenazopyridine HCl (Pyridium Tab) 200 mg TID PRN PO 05/20/17 10:00 06/19/17 09:59 05/20/17 13:16 200 MG Docusate Sodium (coLACE CAP) 100 mg BID PO 05/20/17 21:00 06/19/17 20:59 05/22/17 08:36 100 MG Polyethylene (Miralax Powder Packet) 17 gm DAILY PO 05/21/17 09:00 06/20/17 08:59 05/22/17 08:38 17 GM Furosemide (Lasix Tab) 40 mg QAM PO 05/22/17 08:00 06/21/17 08:59 05/22/17 08:37 40 MG Rivaroxaban (Xarelto Tab) 20 mg QDD PO 05/21/17 11:00 06/20/17 10:59 05/21/17 10:54 20 MG Hydromorphone HCl (Dilaudid Inj) 0.5 mg Q12 PRN IV 05/21/17 10:45 06/04/17 10:44 05/22/17 15:01 0.5 MG Objective Vital Signs Date Time Temp Pulse Resp B/P (MAP) Pulse Ox O2 Delivery O2 Flow Rate FiO2 05/22/17 16:00 Room Air 05/22/17 14:59 36.6 64 16 127/68 (87) 98 Room Air 05/22/17 10:14 56 116/76 (89) 05/22/17 08:31 42 113/71 (85) 05/22/17 08:00 Room Air 05/22/17 07:20 36.7 46 20 92/58 (69) 98 Room Air 05/22/17 00:00 94 Room Air 05/21/17 23:08 36.6 48 16 99/62 (74) 94 Room Air 05/21/17 20:58 50 105/62 (76) Physical Exam General Appearance: no apparent distress, + obese Eyes: normal inspection, EOMI, sclerae normal Neck: supple, no adenopathy, no JVD, trachea midline Respiratory/Chest: chest non-tender, lungs clear, normal breath sounds, no respiratory distress, no accessory muscle use Cardiovascular: regular rate, rhythm, no edema, no gallop, no JVD, no murmur Abdomen: normal bowel sounds, non tender, soft, no organomegaly Extremities: normal inspection, no pedal edema, no calf tenderness, normal capillary refill, pelvis stable, + pertinent finding (low insulation board back tender, decreased ROM) Neurologic/Psychiatric: chlorinator II-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 nml as tested, no motor/sensory deficits, alert, normal mood/affect, oriented x 3 Skin: normal color, warm/dry, no rash Laboratory Results Last 24 Hours Test 05/21/17 16:34 05/21/17 20:04 05/22/17 06:19 05/22/17 07:30 Bedside Glucose 145 mg/dl 150 mg/dl 98 mg/dl White Blood Count 7.02 K/uL Red Blood Count 3.01 M/uL Hemoglobin 10.1 g/dL Hematocrit 30.9 % Mean Corpuscular Volume 102.7 fL Mean Corpuscular Hemoglobin 33.6 pg Mean Corpuscular Hemoglobin Concent 32.7 g/dl Platelet Count 120 K/uL Mean Platelet Volume 9.1 fL Neutrophils (%) (Auto) 51.8 % Lymphocytes (%) (Auto) 37.3 % Monocytes (%) (Auto) 7.5 % Eosinophils (%) (Auto) 2.6 % Basophils (%) (Auto) 0.4 % Neutrophils # (Auto) 3.63 K/uL Lymphocytes # (Auto) 2.62 K/uL Monocytes # (Auto) 0.53 K/uL Eosinophils # (Auto) 0.18 K/uL Basophils # (Auto) 0.03 K/uL RDW Standard Deviation 63.5 fL RDW Coefficient of Variation 16.9 % Immature Granulocyte % (Auto) 0.4 % Immature Granulocyte # (Auto) 0.03 K/uL Sodium Level 138 mmol/L Potassium Level 4.0 mmol/L Chloride Level 106 mmol/L Carbon Dioxide Level 29 mmol/L Anion Gap 3.0 mmol/L Blood Urea Nitrogen 15 mg/dl Creatinine 1.02 mg/dl Est Creatinine Clear Calc Drug Dose 96.4 ml/min Estimated GFR () 72.7 Estimated GFR (Non- 62.8 BUN/Creatinine Ratio 14.5 Random Glucose 83 mg/dl Calcium Level 8.0 mg/dl Magnesium Level 2.1 mg/dl Test 05/22/17 11:57 Bedside Glucose 105 mg/dl Assessment and Plan 51 yo female with - Volume overload, anasarca, likely acute on chronic diastolic heart failure responded well to Lasix, will continue Lasix 40mg PO daily echo with normal EF, normal valves Proteinuria is 200mg a day, not significant enough for anasarca albumin low at 2.6 likely ready for d/c tomorrow on Lasix 40mg PO daily - 4 mm left UPJ Kidney stone/left ureteral stent/hematuria-- stop Rocephin, afebrile, WBC normal no growth in urine culture, both bacterial and fungal no plans for cystoscopy will need to reschedule follow up with urology - H/o HTN, atrial fibrillation rates controlled, continue Coreg continue Xarelto Diabetes mellitus-- Decrease Lantus 75-30 units subcutaneous twice a day while nothing by mouth for possible procedure Place on Accu-Cheks before meals and at bedtime with NovoLog coverage per scale Hypothyroidism-- Continue levothyroxine sodium 200 g by mouth daily Anxiety with depression-- Continue duloxetine 60 mg by mouth twice a day and lisinopril 20 mg by mouth every evening GERD--continue Tagamet 400 mg by mouth daily. plan for discharge tomorrow, recommend continuing Lasix 40mg daily, should follow up with PCP for lab work should follow daily weights at home
[2017-05-22] MEDS: RIVAROXABAN 20 MG TAB PO SCH (17:58)
[2017-05-22] MEDS: ESCITALOPRAM OXALATE 20 MG TAB PO SCH (20:44)
[2017-05-23] VITALS: O2SAT 94
[2017-05-23] MEDS: OXYCODONE HCL IR 5 MG TAB (IMMEDIATE RELEASE) PO PRN ×3 (00:15→12:25)
[2017-05-23] MEDS: HYDROmorphone INJ 0.5 MG/0.5 ML SYR IV PRN ×2 (03:05→15:27)
[2017-05-23] MEDS: LEVOTHYROXINE 200 MCG TAB PO SCH (05:57)
[2017-05-23 06:42] LABS: BASO % 0.3 %; BASO ABS # 0.02 K/uL (0-0.2); EOS % 2.6 %; EOS ABS # 0.18 K/uL (0-0.5); HEMATOCRIT 31.6 % (37-47); HEMOGLOBIN 10.4 g/dL (12.0-16.0); IG# 0.01 K/uL (0.00-0.02); LYMPH % 38.2 %; LYMPH ABS # 2.68 K/uL (1.2-3.4); MEAN CELL VOLUME 101.9 fL (80-100); MEAN CORPUSCULAR HEMOGLOBIN 33.5 pg (25-34); MEAN CORPUSCULAR HGB CONC 32.9 g/dl (32-36); MEAN PLATELET VOLUME 9.4 fL (7.4-10.4); MONO % 5.6 %; MONO ABS # 0.39 K/uL (0.11-0.59); NEUT % 53.2 %; NEUT ABS # 3.74 K/uL (1.4-6.5); PLATELET COUNT 124 K/uL (130-400); RED CELL DISTRIBUTION WIDTH CV 16.8 % (11.5-14.5); RED CELL DISTRIBUTION WIDTH SD 62.4 fL (36.4-46.3); WHITE BLOOD COUNT 7.02 K/uL (4.8-10.8)
[2017-05-23 07:09] VITALS: BP 122/71; PULSE 51; TEMP 36.7; O2SAT 94
[2017-05-23 07:11] LABS: CREATININE 1.02 mg/dl (0.60-1.20); POTASSIUM 3.7 mmol/L (3.5-5.1)
[2017-05-23 07:35] VITALS: PULSE 62
--- NOTE | 2017-05-23 08:46 | Progress Note ---
Subjective Date of Service: May 23, 2017. Subjective Pt evaluation today including: conversation w/ patient, chart review, lab review Voiding: no voiding problems 51 yo female with with left ureteral stone s/p left ureteral stent placement. Pt continues to c/o left low back pain and bladder pain intermittently. She states she has chronic nausea. Denies vomiting. Problem List Medical Problems: (1) Abdominal contusion Status: Acute (2) Abdominal wall pain Status: Acute (3) Acute abdominal pain Status: Acute (4) Acute exacerbation of chronic low back pain Status: Acute (5) Acute flank pain Status: Acute (6) Acute generalized abdominal pain Status: Acute (7) Anxiety Status: Acute (8) Asthma Status: Chronic (9) Back pain Status: Acute (10) Back pain Status: Acute (11) Back pain Status: Acute (12) Back pain Status: Acute (13) Back pain Status: Acute (14) Benign hypertension Status: Chronic (15) Bipolar disorder Status: Chronic (16) Cauda equina compression Status: Acute (17) Chronic pain Status: Chronic (18) Closed head injury Status: Acute (19) Contusion of left foot Status: Acute (20) Contusion of left knee Status: Acute (21) Contusion of multiple sites Status: Acute (22) Degenerative joint disease of spine Status: Chronic (23) Depression Status: Chronic (24) Diabetes mellitus type 2 Status: Chronic (25) Diabetes mellitus with hyperglycemia Status: Acute (26) Diabetes mellitus with hyperglycemia Status: Acute (27) Drug-seeking behavior Status: Chronic (28) Dyspnea Status: Acute (29) Failure to thrive in adult Status: Acute (30) Gastroesophageal reflux disease Status: Chronic (31) Headache Status: Acute (32) Headache Status: Acute (33) Hematuria Status: Acute (34) Hernia of abdominal wall Status: Chronic (35) Hyperammonemia Status: Acute (36) Hypothyroidism Status: Acute (37) Hypothyroidism Status: Chronic (38) Insomnia Status: Chronic (39) Insulin dependent type 2 diabetes mellitus, uncontrolled Status: Acute (40) Jaw pain Status: Acute (41) Kidney stone Status: Acute (42) Kidney stone on left side Status: Acute (43) Left flank pain Status: Acute (44) Left flank pain Status: Acute (45) LUMBAGO Status: Chronic (46) Migraine Status: Acute (47) Migraine Status: Chronic (48) Morbid obesity Status: Chronic (49) Morbid obesity Status: Chronic (50) Morbid obesity with BMI of 60.0-69.9, adult Status: Acute (51) Noncompliance with medication regimen Status: Acute (52) Obstructive sleep apnea Status: Chronic (53) Poorly controlled diabetes mellitus Status: Acute (54) Post-op pain Status: Acute (55) Right flank pain Status: Acute (56) Right-sided chest wall pain Status: Acute (57) Sepsis Status: Acute (58) Shoulder pain Status: Acute (59) SOB (shortness of breath) Status: Acute (60) Spinal stenosis Status: Chronic (61) Suprapubic pain Status: Acute (62) Supraumbilical hernia Status: Chronic (63) Syncope Status: Acute (64) Urinary tract infection Status: Acute (65) Urinary tract obstruction due to kidney stone Status: Acute (66) Vaginal candidiasis Status: Acute Surgical Problems: (1) H/O hernia repair Status: Chronic Review of Systems Constitutional: No fever, No chills Respiratory: No shortness of breath Cardiac: No chest pain Abdomen: + pain (suprapubic and bladder pain ), + nausea, No vomiting Musculoskeletal: + problem reported (left low back pain ) Female : No hematuria Heme: No abnormal bleeding/bruising Objective Vital Signs Date Time Temp Pulse Resp B/P (MAP) Pulse Ox O2 Delivery O2 Flow Rate FiO2 05/23/17 07:09 36.7 51 18 122/71 (88) 94 Room Air 05/23/17 00:00 94 Room Air 05/22/17 22:54 36.5 48 20 100/52 (68) 97 Room Air 05/22/17 21:32 48 110/61 (77) 05/22/17 18:08 68 118/74 (89) 05/22/17 16:00 Room Air 05/22/17 14:59 36.6 64 16 127/68 (87) 98 Room Air 05/22/17 10:14 56 116/76 (89) Physical Exam General Appearance: no apparent distress, + obese (morbidly ) Eyes: normal inspection ENT: hearing grossly normal Neck: no JVD Respiratory/Chest: no respiratory distress, no accessory muscle use Cardiovascular: no JVD Extremities: normal inspection Neurologic/Psychiatric: alert, normal mood/affect, oriented x 3 Skin: normal color Laboratory Results Last 24 Hours Test 05/22/17 11:57 05/22/17 16:37 05/22/17 19:56 05/23/17 05:58 Bedside Glucose 105 mg/dl 142 mg/dl 129 mg/dl White Blood Count 7.02 K/uL Red Blood Count 3.10 M/uL Hemoglobin 10.4 g/dL Hematocrit 31.6 % Mean Corpuscular Volume 101.9 fL Mean Corpuscular Hemoglobin 33.5 pg Mean Corpuscular Hemoglobin Concent 32.9 g/dl Platelet Count 124 K/uL Mean Platelet Volume 9.4 fL Neutrophils (%) (Auto) 53.2 % Lymphocytes (%) (Auto) 38.2 % Monocytes (%) (Auto) 5.6 % Eosinophils (%) (Auto) 2.6 % Basophils (%) (Auto) 0.3 % Neutrophils # (Auto) 3.74 K/uL Lymphocytes # (Auto) 2.68 K/uL Monocytes # (Auto) 0.39 K/uL Eosinophils # (Auto) 0.18 K/uL Basophils # (Auto) 0.02 K/uL RDW Standard Deviation 62.4 fL RDW Coefficient of Variation 16.8 % Immature Granulocyte % (Auto) 0.1 % Immature Granulocyte # (Auto) 0.01 K/uL Sodium Level 137 mmol/L Potassium Level 3.7 mmol/L Chloride Level 104 mmol/L Carbon Dioxide Level 27 mmol/L Anion Gap 6.0 mmol/L Blood Urea Nitrogen 14 mg/dl Creatinine 1.02 mg/dl Est Creatinine Clear Calc Drug Dose 96.4 ml/min Estimated GFR () 72.7 Estimated GFR (Non- 62.8 BUN/Creatinine Ratio 14.2 Random Glucose 83 mg/dl Calcium Level 8.0 mg/dl Magnesium Level 2.0 mg/dl Assessment and Plan A/P: Left ureteral stones AFVSS. Fortunately urine and fungal urine cultures are negative. Suspect any rare yeast seen on fungal culture was likely contamination d/t pt's body habitus. Pt OK for d/c home from [facility]. Will reschedule her surgery with Dr. Raya. Will obtain anesthesia consult for clearance prior to discharge today as she has difficulty obtaining rides to her appointments. Discharge planning: home
[2017-05-23] MEDS: FUROSEMIDE 40 MG TAB PO SCH (08:55)
[2017-05-23] MEDS: OXYBUTYNIN CHLORIDE 5 MG TAB PO SCH ×2 (08:55→13:59)
[2017-05-23] MEDS: CARVEDILOL 12.5 MG TAB PO SCH (08:55)
[2017-05-23] MEDS: DOCUSATE SODIUM 100 MG CAP PO SCH (08:55)
[2017-05-23] MEDS: DULOXETINE HCL 60 MG CAP PO SCH (08:56)
[2017-05-23] MEDS: CIMETIDINE 400 MG TAB PO SCH (08:57)
[2017-05-23] MEDS: POLYETHYLENE (MIRALAX) 17 GM PACK PO SCH (08:57)
[2017-05-23] MEDS: INSULIN ASPART 100 UNITS/ML 3 ML PEN SC SCH ×2 (09:02→12:29)
[2017-05-23] MEDS: INSULIN GLARGINE SOLOSTAR 100 UNITS/ML 3 ML PEN SQ SCH (09:03)
[2017-05-23] MEDS ORDERED: LSX40 PO (11:08)
[2017-05-23] MEDS ORDERED: DTR5 PO (11:08)
--- NOTE | 2017-05-23 11:14 | Discharge Instructions ---
Discharge Instructions Date of Service May 23, 2017. Admission Reason for Admission: Anasarca, Weight Gain, Abnormal Discharge Discharge Diagnosis / Problem: fluid overload Discharge Goals Goal(s): Decrease discomfort, Improve function, Increase independence, Improve disease control, Improve nutritional status, Learn about illness, Diagnostic testing, Therapeutic intervention, Prevent Disease Progression, Specific goals Activity Recommendations Activity Limitations: resume your previous activity Lifting Limitations: none Exercise/Sports Limitations: none May Resume Sexual Activity: when tolerated . Instructions / Follow-Up Instructions / Follow-Up you have Left ureteral stones you need to reschedule her surgery with Dr. Raya. you need to have anesthesia consult for clearance prior to discharge before leaving you have Volume overload, and possible likely acute on chronic diastolic heart failure will continue Lasix 40mg PO daily you need to be seen by PCP in 1 week and also need to have labs in 1 week, for BMP, and mag, with pcp - you need to follow up with your primary care physician in 1 week, - take medication as instructed, never overdose or any misuse, or take with alcohol, because misuse of medicine may cause organ damage or , call your primary care physician if have questions of medicaitons. - call your primary care physician OR go to local emergency room if has any fever/chill, chest pain, shortness of breathing, nausea/vomiting/abdominal pain , facial droop/slurry speech/local weakness, or if has any questions. - fall precaution - diet as instructed - you need to follow up with your subspecialist as above as instructed - you should understand that it is important to follow up the above instruction , and "not following the above instruction" may cause delayed or missed care of your medical conditions which may cause permanent organ damage and even . Current Hospital Diet Patient's current hospital diet: AHA Diet (Heart Healthy), Diabetes Type 2 Diet Discharge Diet Recommended Diet: Diabetes Type 2 Diet Procedures Procedures Performed: no Pending Studies Studies pending at discharge: no Laboratory Results Meds Administered (Past 24Hrs) Medications (Trade) Dose Ordered Sig/Nelda Route Start Time Stop Time Status Last Admin Dose Admin Furosemide (Lasix Tab) 40 mg QAM PO 05/22/17 08:00 06/21/17 08:59 05/23/17 08:55 40 MG Hemoglobin A1c Test 04/18/17 05:16 Range/Units Estimated Average Glucose 200 mg/dl Hemoglobin A1c 8.6 H 4.5-5.6 % Medical Emergencies . Who to Call and When: Medical Emergencies: If at any time you feel your situation is an emergency, please call 911 immediately. . Non-Emergent Contact Non-Emergency issues call your: Primary Care Provider, Urologist Call Non-Emergent contact if: you have a fever . . "Provider Documentation" section prepared by Nic Fregoso. . VTE Core Measure Inpt VTE Proph given/why not?: Other Anticoagulation (Xarelto)
--- NOTE | 2017-05-23 12:24 | Discharge Summary ---
Discharge Summary Date of Service May 23, 2017. Discharge Summary Admission Date: May 20, 2017 at 01:42 Discharge Date: May 23, 2017 Discharge Disposition: Home Principal Diagnosis: Left ureteral stones , fluid overload Problems/Secondary Diagnoses: obesity (1) Asthma Status: Chronic (2) Benign hypertension Status: Chronic (3) Bipolar disorder Status: Chronic (4) Chronic pain Status: Chronic (5) Degenerative joint disease of spine Status: Chronic (6) Depression Status: Chronic (7) Diabetes mellitus type 2 Status: Chronic (8) Drug-seeking behavior Status: Chronic (9) Gastroesophageal reflux disease Status: Chronic (10) H/O hernia repair Status: Chronic (11) Hernia of abdominal wall Status: Chronic (12) Hypothyroidism Status: Chronic (13) Insomnia Status: Chronic (14) LUMBAGO Status: Chronic (15) Migraine Status: Chronic (16) Morbid obesity Status: Chronic (17) Morbid obesity Status: Chronic (18) Obstructive sleep apnea Status: Chronic (19) Spinal stenosis Status: Chronic (20) Supraumbilical hernia Status: Chronic Immunizations: Have You Had Influenza Vaccine: No Influenza Vaccine Date: Feb 20, 2011 History of Tetanus Vaccine?: 2009 Tetanus Immunization Date: Dec 21, 2005 History of Pneumococcal: Yes Pneumococcal Date: Feb 03, 2012 History of Hepatitis B Vaccine: No Procedures: No Consultations: Urologist Medication Reconciliation New Medications: Furosemide (Furosemide) 40 Mg Tab 40 MG PO QAM for 7 Days, TAB Oxybutynin Chloride (Oxybutynin Chloride) 5 Mg Tab 5 MG PO TID for 14 Days, TAB Continued Medications: Albuterol Hfa (Ventolin Hfa) 200 Puffs/36528 Mcg Aers 2-4 PUFFS INH Q6H PRN for SOB/Wheezing Carvedilol (Coreg) 12.5 Mg Tab 12.5 MG PO BID Cimetidine (Tagamet) 400 Mg Tab 400 MG PO DAILY, TAB Duloxetine Hcl (Cymbalta) 60 Mg Cap 60 MG PO BID, CAP Escitalopram Oxalate (Lexapro) 20 Mg Tab 20 MG PO QPM Home O2 Therapy (Oxygen) Gas 3 LITERS NA UD PRN for Shortness of Breath Insulin Aspart (Novolog Flexpen) 100 Units/Ml Inj UNITS SC TIDM COVERAGE DIRECTED BY FOLLOWING SLIDING SCALE: 150 - 199 2 UNITS 200 - 249 4 UNITS 250 - 299 8 UNITS 300 - 349 12 UNITS 350 - 399 18 UNITS 400 - 449 24 UNITS 450 - 499 30 UNITS Insulin Glargine (Lantus Solostar) 100 Unit/Ml Inj 75 UNITS SQ BID Levothyroxine Sodium (Levothyroxine Sodium) 200 Mcg Tab 200 MCG PO DAILY SYNTHROID BRAND NAME Oxycodone Ir (Roxicodone Ir) 5 Mg Tab 10 MG PO Q6H PRN for Pain, TAB Rivaroxaban (Xarelto) 20 Mg Tab 20 MG PO QPM Tamsulosin Hcl (Flomax) 0.4 Mg Cap 0.4 MG PO DAILY PRN for RN, CAP Discharge Exam Doing okay, mild lower back pain, which is not new, no dysuria urgency or frequencies, has been out of bed to the restroom, hands swelling is better Review of Systems: Constitutional: + weakness, No fever, No chills, No sweats, No weight loss, No fatigue, No problem reported Eyes: No worsening of vision, No eye pain, No redness, No discharge, No diplopia, No problem reported ENT: No hearing loss, No unusual epistaxis, No nasal symptoms, No sore throat, No tinnitus, No dental problems, No trouble swallowing, No problem reported Respiratory: No cough, No sputum, No wheezing, No shortness of breath, No dyspnea on exertion, No dyspnea at rest, No hemoptysis, No problem reported Cardiovascular: + edema, No chest pain, No orthopnea, No PND, No claudication, No palpitations, No problem reported Abdomen: No pain, No nausea, No vomiting, No diarrhea, No constipation, No GI bleeding, No problem reported Musculoskeletal: + problem reported (lower back pain is currently) Genitourinary - Female: No dysuria, No urinary frequency, No urinary urgency , No urinary incontinence, No urinary retention, No hematuria, No dysmenorrhea, No menorrhagia, No metrorrhagia, No rash, No vaginal bleeding, No vaginal discharge, No vaginal itching, No vulvodynia, No , No problem reported Neurologic: No memory loss, No paralysis, No weakness, No numbness/tingling , No vertigo, No balance problems, No problem reported Psychiatric: No depression symptoms, No anhedonism, No anxiety, No insomnia , No substance abuse, No problem reported Endocrine: No fatigue, No excessive thirst, No excessive urination, No problem reported Hematologic / Lymphatic: No abnormal bleeding/bruising, No clotting problems , No swollen lymph nodes, No night sweats, No problem reported Integumentary: No rash, No itch, No new/changing skin lesions, No color change, No bleeding, No problem reported Physical Exam: General Appearance: WD/WN, no apparent distress, + obese Eyes: normal inspection, PERRL ENT: normal ENT inspection, hearing grossly normal Neck: supple, no adenopathy Respiratory/Chest: chest non-tender, no respiratory distress, no accessory muscle use, + decreased breath sounds Cardiovascular: regular rate, rhythm, no gallop, no JVD, no murmur, normal peripheral pulses, + pertinent finding (2+ edema in lower extremity) Abdomen / GI: normal bowel sounds, non tender, soft, no organomegaly, no pulsatile mass Extremities: normal inspection, no calf tenderness, normal capillary refill , + swelling Neurologic/Psychiatric: mobility engineer II-XII nml as tested, no motor/sensory deficits , alert, normal mood/affect, normal reflexes, oriented x 3 Skin: normal color, warm/dry, no rash Hospital Course 51 yo female was admitted on 05/20/2017 because of volume overload and was found has - 4 mm left UPJ Kidney stone/left ureteral stent/hematuria too Volume overload, anasarca, likely acute on chronic diastolic heart failure, responded well to Lasix, will continue Lasix 40mg PO daily, has advised to follow-up with PCP above renal functions and labs when patient is on Lasix echo was done with normal LVEF, normal valves Proteinuria is 200mg a day, not significant enough for anasarca, I have discussed this with patient, and recommend to follow-up this condition with PCP , referral to rn telemetry if needed albumin low at 2.6 4 mm left UPJ Kidney stone/left ureteral stent/hematuria-- Was on Rocephin, stop Rocephin, afebrile, WBC normal, no growth in urine culture , both bacterial , however growth of yeast, per urology likely because of contamination, I agree, patient is asymptomatic, advised patient to follow-up with PCP and urologist about this no plans for cystoscopy, need to reschedule follow up with urology H/o HTN, atrial fibrillation, rates controlled, continue Coreg, continue Xarelto Diabetes mellitus Hypothyroidism Anxiety with depression GERD The above condition stable continue current medication Discharge instruction you have Left ureteral stones you need to reschedule her surgery with Dr. Raya. you need to have anesthesia consult for clearance prior to discharge before leaving you have Volume overload, and possible likely acute on chronic diastolic heart failure will continue Lasix 40mg PO daily you need to be seen by PCP in 1 week and also need to have labs in 1 week, for BMP, and mag, with pcp - you need to follow up with your primary care physician in 1 week, - take medication as instructed, never overdose or any misuse, or take with alcohol, because misuse of medicine may cause organ damage or , call your primary care physician if have questions of medicaitons. - call your primary care physician OR go to local emergency room if has any fever/chill, chest pain, shortness of breathing, nausea/vomiting/abdominal pain , facial droop/slurry speech/local weakness, or if has any questions. - fall precaution - diet as instructed - you need to follow up with your subspecialist as above as instructed - you should understand that it is important to follow up the above instruction , and "not following the above instruction" may cause delayed or missed care of your medical conditions which may cause permanent organ damage and even . Total Time Spent: Greater than 30 minutes This includes examination of the patient, discharge planning, medication reconciliation, and communication with other providers. Discharge Instructions Please refer to the electronic Patient Visit Report (Discharge Instructions) for additional information. Additional Copies To Agustina Cummings M.D.; Wero Raya MD, Urology
[2017-05-23 14:54] VITALS: BP 122/71; PULSE 62; TEMP 36.7; O2SAT 94
[2017-05-25] MEDS ORDERED: TAMS0.4C38 PO (13:28)
[2017-05-25] MEDS ORDERED: OXYC1TAB3 PO (13:28)
== END 2017-05-23 15:40 | disposition home or self-care (01) | DRG 292 ==
LOC: C.EDB 22:11 → C.2E 05-20 01:42 → ENRESERV 05-20 02:08 → C.MS4W 05-21 12:30
PROVIDERS: ADMIT Hospitalist; ATTEND Hospitalist
DX: I50.33 Acute on chronic diastolic (congestive) heart failure (principal); N20.1 Calculus of ureter; Z68.44 Body mass index [BMI] 60.0-69.9, adult; Z96.0 Presence of urogenital implants; Z83.3 Family history of diabetes mellitus; Z82.49 Family history of ischemic heart disease and other diseases of the circulatory system; F17.200 Nicotine dependence, unspecified, uncomplicated; Z79.4 Long term (current) use of insulin; R60.1 Generalized edema; I50.9 Heart failure, unspecified; I10 Essential (primary) hypertension; E11.9 Type 2 diabetes mellitus without complications; E03.9 Hypothyroidism, unspecified; F41.8 Other specified anxiety disorders; E66.01 Morbid (severe) obesity due to excess calories

== ENCOUNTER 2017-05-25 16:29 | Emergency (ER) | payer OTHER ==
[~2017-05-25 16:29] MED LIST changes: +DTR5 PO; +LSX40 PO; -NITR1CAP33 PO; +OXYC1TAB3 PO; +TAMS0.4C38 PO
[2017-05-25 16:32] VITALS: TEMP 36.7; Ht 160 cm
[2017-05-25] MEDS ORDERED: XRL20 PO (16:47)
--- NOTE | 2017-05-25 18:54 | EMERGENCY ROOM VISIT NOTE ---
History Report prepared by Lissethibviki: Vickie Burris Under the Supervision of: Dr. Salvador Wolf M.D. First contact with patient: 18:25 Chief Complaint: OTHER COMPLAINT Stated Complaint: ELEVATED PROTEIN, NOT FEELING ANY BETTER History of Present Illness The patient is a 51 year old white female with a past medical history of asthma , DM, hypertension, hypokalemia, hypothyroidism and renal failure who presents to the ED with a cc of worsening flank pain beginning yesterday. She rates her current discomfort as a 10/10. Oxycodone has provided minimal relief. Positive nausea, pubic pain and weakness. Negative hematuria. The patient was discharged from here at the hospital 2 days ago with fluid overload. She states she has a known kidney stone and has had a stent in place for the past 20 days. She has seen Dr. Raya of [facility] in the past, but states "they don't want to remove it and the pain keeps getting worse". Source of History: patient Onset: yesterday Position: back (lower) Symptom Intensity: 10/10 Timing: worsening Modifying Factors (Relieving): other (Oxycodone) Associated Symptoms: + nausea, + weakness, No urinary symptoms Review of Systems See HPI for pertinent positives and negatives. A total of ten systems were reviewed and were otherwise negative. Past Medical & Surgical Medical Problems: (1) Abdominal pain (2) Abdominal pain (3) Abdominal pain (4) Abdominal wall cellulitis (5) Acute hypokalemia (6) Acute renal failure syndrome (7) Anasarca (8) Ankle pain (9) Asthma (10) Atypical syncope (11) Benign hypertension (12) Bipolar disorder (13) Bowel obstruction (14) Cellulitis (15) CELLULITIS ABDOMEN (16) Cellulitis and abscess of trunk (17) Chronic pain (18) Cirrhosis (19) Contusion of ankle (20) Contusion of periorbital region, left (21) Degenerative joint disease of spine (22) Dehydration (23) Dehydration (24) Depression (25) Diabetes mellitus type 2 (26) DM (diabetes mellitus screen) (27) Drug-seeking behavior (28) DVT (deep venous thrombosis) (29) Exacerbation of chronic back pain (30) Fall (31) Fracture of fourth metatarsal bone of left foot (32) Gastroesophageal reflux disease (33) Hepatic encephalopathy (34) Hernia of abdominal wall (35) Hyperglycemia (36) Hypokalemia (37) Hypokalemia (38) Hypokalemia (39) Hypokalemia (40) Hypothyroid (41) Hypothyroidism (42) Hypoxia (43) Incarcerated ventral hernia (44) Incisional irritation (45) Incisional pain (46) Inguinal lymphadenopathy (47) Insomnia (48) terminal gauger (current) use of insulin (49) skilled nursing current use of 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 (50) LUMBAGO (51) Migraine (52) Morbid obesity (53) Morbid obesity (54) Morbid obesity (55) Morbid obesity with BMI of 60.0-69.9, adult (56) Obstructive sleep apnea (57) Pain, dental (58) Rectal bleeding (59) Renal colic on right side (60) Renal insufficiency (61) Renal insufficiency (62) SBO (small bowel obstruction) (63) Septic shock (64) Seroma, postoperative (65) Sleep apnea (66) Spinal stenosis (67) Splenomegaly, not elsewhere classified (68) Supraumbilical hernia (69) Weight gain, abnormal Surgical Problems: (1) H/O hernia repair (2) H/O knee surgery (3) H/O: hysterectomy (4) History of cholecystectomy (5) History of urethral stent (6) Hx of appendectomy Social History Problems: (1) Diabetic neuropathy Family History Cancer Diabetes mellitus Gallbladder disease Heart disease Hypertension Lung disease Social History Smoking Status: Current Every Day Smoker Alcohol Use: none Drug Use: none Marital Status: Housing Status: lives with family Occupation Status: unemployed, disabled Current/Historical Medications Scheduled Carvedilol (Coreg), 12.5 MG PO BID Cimetidine (Tagamet), 400 MG PO DAILY Duloxetine HCl (Duloxetine HCl), 60 MG PO BID Escitalopram Oxalate (Escitalopram Oxalate), 20 MG PO QPM Furosemide (Furosemide), 40 MG PO QAM Insulin Aspart (Novolog Flexpen), 1 DOSE SC TIDM Insulin Glargine (Lantus Solostar), 75 UNITS SQ BID Levothyroxine Sodium (Synthroid), 200 MCG PO DAILY Oxybutynin Chloride (Oxybutynin Chloride), 5 MG PO TID Rivaroxaban (Xarelto), 20 MG PO QPM Tramadol Hcl (Ultram), 50 MG PO Q8H Scheduled PRN Albuterol Hfa (Ventolin Hfa), 2-4 PUFFS INH Q6H PRN for SOB/Wheezing Home O2 Therapy (Oxygen), 3 LITERS NA UD PRN for Shortness of Breath Oxycodone Ir (Roxicodone Ir), 10 MG PO Q6H PRN for Pain Tamsulosin Hcl (Flomax), 0.4 MG PO DAILY PRN for Urinary Retention Allergies Coded Allergies: Iodinated Diagnostic Agents (Verified Allergy, Intermediate, hives-PT DENIES SEE NOTE, 05/19/17) Per patient she has had it since without problem (01/25/16 Ioversal given with no pretreats and no mention of rxn; also given Ioversal 11/26/06 with pretreats) Adhesives (Verified Allergy, Mild, RED RASH CAUSED BY PAPER TAPE, 05/19/17) Alprazolam (Verified Allergy, Unknown, MAKES LOOPY,DO AND SAY SILLY THINGS , 05/19/17) Metformin (Verified Allergy, Unknown, HANDS FEET FACE NUMB, 05/19/17) Morphine (Verified Allergy, Unknown, SWELLING LEGS AND FEET, 05/19/17) Vancomycin (Verified Adverse Reaction, Severe, renal failure, required dialysis x 3 MONTHS, 05/19/17) Methylparaben (Verified Adverse Reaction, Intermediate, FLUID RETENTION, ) Oxymorphone (Verified Adverse Reaction, Intermediate, FLUID RETENTION, ) Gabapentin (Verified Adverse Reaction, Mild, Aphasia/Speech impairments, ) Sulfa Antibiotics (Verified Adverse Reaction, Mild, GI SYMPTOMS, 05/19/17) Acetaminophen (Verified Adverse Reaction, Unknown, Liver problems., ) Codeine (Verified Adverse Reaction, Unknown, UPSET STOMACH, 05/19/17) Pregabalin (Verified Adverse Reaction, Unknown, Aphasia/Speech impairments , 05/19/17) Physical Exam Vital Signs Date Time Temp Pulse Resp B/P (MAP) Pulse Ox O2 Delivery O2 Flow Rate FiO2 05/25/17 21:53 60 18 138/111 99 Room Air 05/25/17 16:32 36.7 62 18 140/77 98 Room Air Physical Exam GENERAL: Awake, alert, obese, well-appearing, NAD HENT: Normocephalic, atraumatic. EYES: Normal conjunctiva. Sclera non-icteric. NECK: Supple. No nuchal rigidity. FROM. RESPIRATORY: CTAB, no rhonchi, wheezing, crackles CARDIAC: RRR, no MRG ABDOMEN: Soft, NTND, BS+, non-surgical abdomen MSK: Left sided CVA tenderness to palpation, no LE edema NEURO: GCS 15, CN 2-12 intact, moves all 4s on command SKIN: No rash or jaundice noted. Medical Decision & Procedures Laboratory Results 05/25/17 19:20 Red Blood Count 3.54, Mean Corpuscular Volume 101.1, Mean Corpuscular Hemoglobin 33.9, Mean Corpuscular Hemoglobin Concent 33.5, Mean Platelet Volume 9.1, Neutrophils (%) (Auto) 64.1, Lymphocytes (%) (Auto) 27.5, Monocytes (%) ( Auto) 5.8, Eosinophils (%) (Auto) 1.9, Basophils (%) (Auto) 0.3, Neutrophils # ( Auto) 5.08, Lymphocytes # (Auto) 2.18, Monocytes # (Auto) 0.46, Eosinophils # ( Auto) 0.15, Basophils # (Auto) 0.02 05/25/17 19:20 Test 05/25/17 18:15 05/25/17 19:20 Urine Color YELLOW Urine Appearance CLEAR (CLEAR) Urine pH 7.5 (4.5-7.5) Urine Specific [place] 1.015 (1.000-1.030) Urine Protein NEG (NEG) Urine Glucose (UA) NEG (NEG) Urine Ketones NEG (NEG) Urine Occult Blood 2+ (NEG) Urine Nitrite NEG (NEG) Urine Bilirubin NEG (NEG) Urine Urobilinogen NEG (NEG) Urine Leukocyte Esterase SMALL (NEG) Urine WBC (Auto) >30 /hpf (0-5) Urine RBC (Auto) >30 /hpf (0-4) Urine Hyaline Casts (Auto) 1-5 /lpf (0-5) Urine Epithelial Cells (Auto) >30 /lpf (0-5) Urine Bacteria (Auto) NEG (NEG) Urine Renal Epithelial Cells /lpf (0-5) White Blood Count 7.92 K/uL (4.8-10.8) Red Blood Count 3.54 M/uL (4.2-5.4) Hemoglobin 12.0 g/dL (12.0-16.0) Hematocrit 35.8 % (37-47) Mean Corpuscular Volume 101.1 fL (80-100) Mean Corpuscular Hemoglobin 33.9 pg (25-34) Mean Corpuscular Hemoglobin Concent 33.5 g/dl (32-36) Platelet Count 135 K/uL (130-400) Mean Platelet Volume 9.1 fL (7.4-10.4) Neutrophils (%) (Auto) 64.1 % Lymphocytes (%) (Auto) 27.5 % Monocytes (%) (Auto) 5.8 % Eosinophils (%) (Auto) 1.9 % Basophils (%) (Auto) 0.3 % Neutrophils # (Auto) 5.08 K/uL (1.4-6.5) Lymphocytes # (Auto) 2.18 K/uL (1.2-3.4) Monocytes # (Auto) 0.46 K/uL (0.11-0.59) Eosinophils # (Auto) 0.15 K/uL (0-0.5) Basophils # (Auto) 0.02 K/uL (0-0.2) RDW Standard Deviation 59.9 fL (36.4-46.3) RDW Coefficient of Variation 16.4 % (11.5-14.5) Immature Granulocyte % (Auto) 0.4 % Immature Granulocyte # (Auto) 0.03 K/uL (0.00-0.02) Anion Gap 5.0 mmol/L (3-11) Estimated GFR () 78.3 Estimated GFR (Non- 67.5 BUN/Creatinine Ratio 8.2 (10-20) Calcium Level 8.2 mg/dl (8.5-10.1) Total Bilirubin 0.9 mg/dl (0.2-1) Direct Bilirubin 0.2 mg/dl (0-0.2) Aspartate Amino Transf (AST/SGOT) 24 U/L (15-37) Alanine Aminotransferase (ALT/SGPT) 17 U/L (12-78) Alkaline Phosphatase 96 U/L (45-117) Total Protein 7.7 gm/dl (6.4-8.2) Albumin 2.8 gm/dl (3.4-5.0) Lipase 42 U/L (73-393) Laboratory results reviewed by me Medications Administered Medications (Trade) Dose Ordered Sig/Nelda Route Start Time Stop Time Status Last Admin Dose Admin Tramadol HCl (Ultram Tab) 50 mg NOW STAT PO 05/25/17 19:08 05/25/17 19:10 DC 05/25/17 19:45 50 MG Morphine Sulfate (MoRPHine SULFATE INJ) 4 mg NOW STAT IV 05/25/17 21:32 05/25/17 21:34 DC 05/25/17 21:51 4 MG ED Course 1844: The patient was evaluated in room C3. A complete history and physical exam was performed. 2114: I reevaluated the patient. She is feeling well and ready to go home. I discussed her results and discharge instructions and she verbalized complete understanding and agreement. Medical Decision The patient is a 51 year old white female with a past medical history of asthma , DM, hypertension, hypokalemia, hypothyroidism and renal failure who presents to the ED with a cc of worsening flank pain beginning yesterday. Prior records/ ancillary studies reviewed. Triage Nursing notes reviewed. Differential diagnosis: Etiologies such as renal colic, appendicitis, diverticulitis, mesenteric ischemia, aortic pathology, infections, inflammatory bowel disease, PUD, biliary pathology, UTI, as well as others were entertained. Patient was seen and evaluated the bedside. Patient is of a chronic history of pain. Patient was complaining of some left-sided back pain with radiation to the front. Patient does have a history of a known kidney stone as well as ureteral stent. Patient does have planned follow-up was seen by urology. Patient did have blood work completed along with a urinalysis. Patient's kidney function was normal. Patient does not have elevated white blood cell count. Patient has stable vital signs. I do not believe that she requires any further imaging at this time. Patient was given some pain medication prior to discharge. Patient was told to keep her follow-up appointment. The patient's urinalysis does show some blood and I believe that it is likely contaminated and less likely to be some sort of pyelonephritis. Patient was deemed suitable for outpatient follow-up and treatment at this time. Patient was given strict follow-up, discharge, and return precautions. All questions were answered. Patient was deemed suitable for outpatient follow-up at this time. Patient agreed with the plan of care and was safely discharged home. The chart was completed utilizing [employer] voice recognition software. Grammatical errors, random word insertions, pronoun errors, and incomplete sentences are an occasional consequence of this system due to software limitations, ambient noise, and hardware issues. Any formal questions or concerns about the content, text, or information contained within the body of this dictation should be directly addressed to the physician for clarification. Medication Reconcilliation Current Medication List: was personally reviewed by me Blood Pressure Screening Patient's blood pressure: Normal blood pressure Blood pressure disposition: Did not require urgent referral Impression Primary Impression: Kidney stone on left side Additional Impression: Renal colic on left side Scribe Attestation The scribe's documentation has been prepared under my direction and personally reviewed by me in its entirety. I confirm that the note above accurately reflects all work, treatment, procedures, and medical decision making performed by me. Departure Information Dispostion Home / Self-Care Prescriptions Tramadol Hcl (ULTRAM) 50 Mg Tab 50 MG PO Q8H, #15 TAB PRN PAIN Prov: Salvador Wolf M.D. 05/25/17 Referrals Agustina Cummings M.D. (PCP) Patient Instructions Back Pain - [facility], Back Pain Relieve, [facility] Additional Instructions Please return to the emergency department if you have worsening or recurrent symptoms not amenable to at-home treatment. Please call for a follow-up appointment with her primary care physician. Please take your medications as prescribed. If you have other concerns and/or complaints please feel free to also call your primary care physician's office or return the ED for further evaluation, management, and treatment. Please keep your follow-up appointment with your urologist. Take your medications as prescribed. You have been examined and treated today on an emergency basis only. This is not a substitute for, or an effort to provide, complete comprehensive medical care. It is impossible to recognize and treat all injuries or illnesses in a single emergency department visit. It is therefore important that you follow up closely with [facility], your PCP, and/or your specialist(s). Call as soon as possible for an appointment. Thank you for your time and consideration. I look forward to speaking with you again soon. Please don't hesitate to call us if you have any questions. Problem Qualifiers
[2017-05-25] MEDS ORDERED: CYM60 PO (19:07)
[2017-05-25] MEDS ORDERED: LXP/20 PO (19:07)
[2017-05-25] MEDS ORDERED: TRAMADOL HCL 50 MG TAB PO STA (19:08)
[2017-05-25] MEDS ORDERED: INSDGIPEN SQ (19:09)
[2017-05-25] MEDS ORDERED: LEVO200T PO (19:10)
[2017-05-25] MEDS ORDERED: CARV12.52 PO (19:15)
[2017-05-25 19:33] LABS: BASO % 0.3 %; BASO ABS # 0.02 K/uL (0-0.2); EOS % 1.9 %; EOS ABS # 0.15 K/uL (0-0.5); HEMATOCRIT 35.8 % (37-47); IG# 0.03 K/uL (0.00-0.02); LYMPH % 27.5 %; LYMPH ABS # 2.18 K/uL (1.2-3.4); MEAN CELL VOLUME 101.1 fL (80-100); MEAN CORPUSCULAR HEMOGLOBIN 33.9 pg (25-34); MEAN CORPUSCULAR HGB CONC 33.5 g/dl (32-36); MEAN PLATELET VOLUME 9.1 fL (7.4-10.4); MONO % 5.8 %; MONO ABS # 0.46 K/uL (0.11-0.59); NEUT % 64.1 %; NEUT ABS # 5.08 K/uL (1.4-6.5); PLATELET COUNT 135 K/uL (130-400); RED CELL DISTRIBUTION WIDTH CV 16.4 % (11.5-14.5); RED CELL DISTRIBUTION WIDTH SD 59.9 fL (36.4-46.3); WHITE BLOOD COUNT 7.92 K/uL (4.8-10.8)
[2017-05-25 19:57] LABS: ALBUMIN 2.8 gm/dl (3.4-5.0); ALT/SGPT 17 U/L (12-78); AST/SGOT 24 U/L (15-37); BLOOD UREA NITROGEN 8 mg/dl (7-18); CALCIUM 8.2 mg/dl (8.5-10.1); CARBON DIOXIDE 26 mmol/L (21-32); CREATININE 0.96 mg/dl (0.60-1.20); GLUCOSE 147 mg/dl (70-99); LIPASE 42 U/L (73-393); POTASSIUM 3.5 mmol/L (3.5-5.1); SODIUM 136 mmol/L (136-145)
[2017-05-25 20:05] LABS: ALKALINE PHOSPHATASE 96 U/L (45-117); TOTAL PROTEIN 7.7 gm/dl (6.4-8.2)
[2017-05-25] MEDS ORDERED: NVLGI/PEN SC (20:31)
[2017-05-25] MEDS ORDERED: OXGN (20:37)
[2017-05-25] MEDS ORDERED: VNTHFA/IN INH (21:13)
[2017-05-25] MEDS ORDERED: TRAM-453 PO (21:31)
[2017-05-25] MEDS ORDERED: MoRPHine SULFATE 4 MG/ML 1 ML CARP\\VIAL IV STA (21:32)
[2017-05-25] MEDS ORDERED: TRAMADOL HCL 50 MG HOME PACK PO ONE (21:45)
[2017-05-25 21:53] VITALS: BP 138/111; PULSE 60; O2SAT 99
[2017-05-25] MEDS ORDERED: CIME-56 PO (23:14)
== END 2017-05-25 22:08 | disposition home or self-care (01) ==
LOC: C.EDB 16:31 → C.EDC 22:08
DX: N20.0 Calculus of kidney (principal); N23 Unspecified renal colic; E87.6 Hypokalemia; J45.909 Unspecified asthma, uncomplicated; I10 Essential (primary) hypertension; F41.9 Anxiety disorder, unspecified; E11.9 Type 2 diabetes mellitus without complications; E66.9 Obesity, unspecified; Z83.3 Family history of diabetes mellitus; Z82.49 Family history of ischemic heart disease and other diseases of the circulatory system; F17.200 Nicotine dependence, unspecified, uncomplicated; Z79.4 Long term (current) use of insulin

== ENCOUNTER → 2017-06-03 | Outpatient (CLI) | payer OTHER ==
[~2017-06-03] MED LIST changes: +ATROPINE SULFATE 0.1 MG/ML 5ML SYR ONE; +CARV12.52 PO; +CEFD1CAP14 PO; +CIME-56 PO; +CYM60 PO; +DOBUTamine HCL 12.5 MG/ML 20 ML VIAL ONE; -DULO60CA44 PO; -ESCI1TAB10 PO; +INSDGIPEN SQ; +LEVO200T PO; -LEVO200T6 PO; +LXP/20 PO; +METOPROLOL TARTRATE 1 MG/ML VIAL ONE; +NVLGI/PEN SC; +OXGN; +POTA20TA16 PO; +TRAM-453 PO; +VNTHFA/IN INH; +XRL20 PO
--- NOTE | 2017-06-03 20:26 | DOBUTAMINE ECHO ---
*NOTICE TO RECEIVING [employer] This information is strictly Confidential and protected under [place] law. [place] law prohibits you from making any further disclosure of this information unless further disclosure is expressly permitted by the written consent of the person to whom it pertains or is authorized by law. A general authorization for the release of medical or other information is not sufficient for this purpose. Hospital accepts no responsibility if the information is made available to any other person, INCLUDING THE PATIENT. Interpretation Summary * Name: EMANUEL MOSS Study Date: 06/03/2017 09:49 AM BP: 124/74 mmHg * Patient Location: [facility] HR: 60 * : 1965 (M/d/yyyy) Gender: Female Height: 63 in * Age: 51 yrs Ethnicity: [place] Weight: 362 lb * Ordering Physician: Greg Adam DO * Performed By: Lissy Singletary RDCS * * Reason For Study: Pre-op evaluation, CHF * BSA: 2.5 m2 * -- Conclusions -- * Grossly non ischemic dobutamines stress echo however technically limited. * The study was technically limited due to patient characteristic and poor acoustic windows despite the administration of ultrasound contrast. * The parasternal long axis and parasternal short axis images revealed grossly normal LV wall motion at rest. * The remaining images from the apical views were insufficient although the LVEF was clearly normal. * The left ventricular function appropriately increased with pharmacologics stress with grossly normal stress wall motion on technically limited analysis. * The EKG response to pharmacoligic stress was negative for ischemia. * No symptoms suggestive of angina were induced, with target heart rate successfuly achieved. * The pateint had two prior attempts at resting echo studies on 05/21/17 and . Evaluation of the valves was attempted but was not non diagnostic. * Valves were not reassessed today. Procedure Details * DOBUTAMINE ECHO, CPT#84641 * A contrast injection of Definity was performed to improve assessment of LV function. * Contrast was injected into an intravenous site in the right arm. * One vial of Definity ultrasound contrast was diluted in normal saline to a total volume of 10 ml. A total of '8' ml of solution was administered during imaging. * Lot # [id number] of Definity utilized for procedure. * Expiration date 1 JUN 13. * The attending nurse who injected the contrast agent was Lynnette Cisneros RN. Left Ventricle * The left ventricle is normal in size. * There is mild concentric left ventricular hypertrophy. * Left ventricular systolic function is normal. * Ejection Fraction = 60-65%. * Resting wall motion: Normal. Stress wall motion: Appropriate increase in Left ventricular systolic function and decrease in cavity size. No stress induced segmental wall motion abnormalities. Stress Parameters * The baseline EKG revealed sinus rhythm at 63 bpm with low QRS voltage and diffuse non specific T wave flattening. * The stress EKG was negative for ischemia. Occasional PVCs were noted. * The stress portion of this study was personally supervised by the undersigned interpreting physician. * Rest heart rate was '63' BPM. * Rest blood pressure was '124/74' * Maximum heart rate achieved was 144 bpm. * Maximum heart rate was 86 % of maximum age-predicted heart rate. * Maximum blood pressure was '134/60' * Maximum Dobutamine infusion rate was '40' mcg/kg/min. * A total of 0.75 mg of intravenous Atropine was used to supplement Dobutamine for heart rate response. * Dobutamine infusion was terminated due to achieving target heart rate * A total of 5 mg of IV Metoprolol was administered to reverse Dobutamine-induced tachycardia. * The patient did not exhibit any symptoms during drug infusion.
== END | disposition home or self-care (01) ==
LOC: C.CPL 09:35
PROVIDERS: ATTEND Internal Medicine Interventional Cardiology
DX: Z01.810 Encounter for preprocedural cardiovascular examination (principal); E11.59 Type 2 diabetes mellitus with other circulatory complications; F17.200 Nicotine dependence, unspecified, uncomplicated; E66.01 Morbid (severe) obesity due to excess calories

== ENCOUNTER 2017-06-04 08:40 | Emergency (ER) | payer OTHER ==
[~2017-06-04] VITALS: Ht 161.3 cm; Wt 157.0 kg
[~2017-06-04 08:40] MED LIST changes: -ATROPINE SULFATE 0.1 MG/ML 5ML SYR ONE; -CEFD1CAP14 PO; -DOBUTamine HCL 12.5 MG/ML 20 ML VIAL ONE; -METOPROLOL TARTRATE 1 MG/ML VIAL ONE; -POTA20TA16 PO
[2017-06-04 08:46] VITALS: Ht 161.3 cm; Wt 157.0 kg
--- NOTE | 2017-06-04 09:54 | EMERGENCY ROOM VISIT NOTE ---
History Report prepared by [place]: Karena Wade Under the Supervision of: Dr. Katty Morgan M.D. First contact with patient: 09:05 Chief Complaint: HEMATURIA Stated Complaint: STENT IN/BLOOD CLOTS Nursing Triage Summary: Patient presents with c/o hematuria States she has a left ureteral stent that was placed on 04/17/18 Is to be removed 06/16/17 States she began having hematuria 2 days ago States she now is passing small blood clots She was advised to go to the ED by urologist previously if clots were passed History of Present Illness The patient is a 51 year old female who presents to the Emergency Room with complaints of persistent hematuria that began this morning. The patient states that she had a left sided STENT put in place by her urologist on 04/17, noting she had a stress test to evaluate her before she has it removed on 06/16. Her urologist told her that if she began passing blood clots to come to the Emergency Department for further evaluation. She notes that she has been having abdominal pain, bladder discomfort, lower back pain, chills, but denies any fevers. The patient was seen 6 times in the Emergency Department in the past month, noting that the last time she was seen was to remove fluid from her body secondary to kidney issues. Source of History: patient Onset: this morning Position: other (global) Quality: other (hematuria) Timing: other (persistent) Associated Symptoms: + chills, + abdominal pain, + back pain, No fevers Note: Associated symptoms include: bladder discomfort. Review of Systems See HPI for pertinent positives & negatives. A total of 10 systems reviewed and were otherwise negative. Past Medical & Surgical Medical Problems: (1) Abdominal pain (2) Abdominal pain (3) Abdominal pain (4) Abdominal wall cellulitis (5) Acute hypokalemia (6) Acute renal failure syndrome (7) Anasarca (8) Ankle pain (9) Asthma (10) Atypical syncope (11) Benign hypertension (12) Bipolar disorder (13) Bowel obstruction (14) Cellulitis (15) CELLULITIS ABDOMEN (16) Cellulitis and abscess of trunk (17) Chronic pain (18) Cirrhosis (19) Contusion of ankle (20) Contusion of periorbital region, left (21) Degenerative joint disease of spine (22) Dehydration (23) Dehydration (24) Depression (25) Diabetes mellitus type 2 (26) DM (diabetes mellitus screen) (27) Drug-seeking behavior (28) DVT (deep venous thrombosis) (29) Exacerbation of chronic back pain (30) Fall (31) Fracture of fourth metatarsal bone of left foot (32) Gastroesophageal reflux disease (33) Hepatic encephalopathy (34) Hernia of abdominal wall (35) Hyperglycemia (36) Hypokalemia (37) Hypokalemia (38) Hypokalemia (39) Hypokalemia (40) Hypothyroid (41) Hypothyroidism (42) Hypoxia (43) Incarcerated ventral hernia (44) Incisional irritation (45) Incisional pain (46) Inguinal lymphadenopathy (47) Insomnia (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 (49) [facility] current use of 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 (50) LUMBAGO (51) Migraine (52) Morbid obesity (53) Morbid obesity (54) Morbid obesity (55) Morbid obesity with BMI of 60.0-69.9, adult (56) Obstructive sleep apnea (57) Pain, dental (58) Rectal bleeding (59) Renal colic on right side (60) Renal insufficiency (61) Renal insufficiency (62) SBO (small bowel obstruction) (63) Septic shock (64) Seroma, postoperative (65) Sleep apnea (66) Spinal stenosis (67) Splenomegaly, not elsewhere classified (68) Supraumbilical hernia (69) Weight gain, abnormal Surgical Problems: (1) H/O hernia repair (2) H/O knee surgery (3) H/O: hysterectomy (4) History of cholecystectomy (5) History of urethral stent (6) Hx of appendectomy Social History Problems: (1) Diabetic neuropathy Family History Cancer Diabetes mellitus Gallbladder disease Heart disease Hypertension Lung disease Social History Smoking Status: Current Every Day Smoker Alcohol Use: none Drug Use: none Marital Status: Housing Status: lives with family Occupation Status: unemployed, disabled Current/Historical Medications Scheduled Carvedilol (Coreg), 12.5 MG PO BID Cefdinir (Omnicef), 300 MG PO Q12H Cimetidine (Tagamet), 400 MG PO DAILY Duloxetine HCl (Duloxetine HCl), 60 MG PO BID Escitalopram Oxalate (Escitalopram Oxalate), 20 MG PO QPM Furosemide (Furosemide), 40 MG PO QAM Insulin Aspart (Novolog Flexpen), 1 DOSE SC TIDM Insulin Glargine (Lantus Solostar), 75 UNITS SQ BID Levothyroxine Sodium (Synthroid), 200 MCG PO DAILY Rivaroxaban (Xarelto), 20 MG PO QPM Scheduled PRN Albuterol Hfa (Ventolin Hfa), 2-4 PUFFS INH Q6H PRN for SOB/Wheezing Home O2 Therapy (Oxygen), 3 LITERS NA UD PRN for Shortness of Breath Oxycodone Ir (Roxicodone Ir), 10 MG PO Q6H PRN for Pain Allergies Coded Allergies: Iodinated Diagnostic Agents (Verified Allergy, Intermediate, hives-PT DENIES SEE NOTE, 06/04/17) Per patient she has had it since without problem (01/25/16 Ioversal given with no pretreats and no mention of rxn; also given Ioversal 11/26/06 with pretreats) Adhesives (Verified Allergy, Mild, RED RASH CAUSED BY PAPER TAPE, 06/04/17) Alprazolam (Verified Allergy, Unknown, MAKES LOOPY,DO AND SAY SILLY THINGS , 06/04/17) Metformin (Verified Allergy, Unknown, HANDS FEET FACE NUMB, 06/04/17) Morphine (Verified Allergy, Unknown, SWELLING LEGS AND FEET, 06/04/17) Vancomycin (Verified Adverse Reaction, Severe, renal failure, required dialysis x 3 MONTHS, 06/04/17) Methylparaben (Verified Adverse Reaction, Intermediate, FLUID RETENTION, ) Oxymorphone (Verified Adverse Reaction, Intermediate, FLUID RETENTION, 02/09) Gabapentin (Verified Adverse Reaction, Mild, Aphasia/Speech impairments, ) Sulfa Antibiotics (Verified Adverse Reaction, Mild, GI SYMPTOMS, 06/04/17) Acetaminophen (Verified Adverse Reaction, Unknown, Liver problems., ) Codeine (Verified Adverse Reaction, Unknown, UPSET STOMACH, 06/04/17) Pregabalin (Verified Adverse Reaction, Unknown, Aphasia/Speech impairments , 06/04/17) Physical Exam Vital Signs Date Time Temp Pulse Resp B/P (MAP) Pulse Ox O2 Delivery O2 Flow Rate FiO2 06/04/17 12:11 37.0 72 22 115/70 96 06/04/17 10:56 71 16 133/83 92 Room Air 06/04/17 08:46 36.7 67 16 111/61 97 Room Air Physical Exam Vital signs reviewed. General: Morbidly obese female, in no significant distress. HEENT: No scleral icterus, PERRLA, neck supple. Atraumatic. Cardiovascular: Regular rate and rhythm, no extra sounds. Pulmonary: Clear to auscultation bilaterally, normal work of breathing. Abdomen: Soft, nontender, nondistended, positive bowel sounds. Musculoskeletal: Atraumatic, no peripheral edema. Left-sided CVA tenderness. Neurologic: Patient awake alert and oriented x 3 Skin: Warm, dry, no rash Medical Decision & Procedures ER Provider Diagnostic Interpretation: Radiology results as stated below per my review and radiologist interpretation: KUB CLINICAL HISTORY: 51 years-old Female presenting with Left ureteral stent. TECHNIQUE: Single supine view of the abdomen was obtained. COMPARISON: 05/20/[address] from 05/06/2017. FINDINGS: Cholecystectomy clips noted. Nonobstructive bowel gas pattern. Moderate stool burden primarily in the right and transverse colon. No gross pneumoperitoneum. Left ureteral stent remains in place with the small left ureteral calculus again evident at the level of L4-5 as on prior exam. Multiple pelvic phleboliths again noted unchanged in distribution. Advanced degenerative changes of the lumbar spine. IMPRESSION: 1. Left ureteral stent in place with unchanged position of the proximal left ureteral calculus at the level of L4-5. Electronically signed by: Jann Cedillo M.D. 06/04/2017 10:33 AM Dictated Date/Time: 06/04/2017 10:30 AM (RENAL)RETROPERITON COMP CLINICAL HISTORY: 51 years-old Female presenting with left ureteral stent placed, hematuria, clots. TECHNIQUE: Real-time grayscale and limited color Doppler ultrasound imaging of the kidneys and bladder was performed. COMPARISON: 05/01/2017. FINDINGS: Right kidney: Normal echogenicity of renal parenchyma. Right kidney measures 12.0 cm. No hydronephrosis. No convincing evidence of calculus or mass. Normal perfusion. Left kidney: Normal echogenicity of renal parenchyma. Left kidney measures 11.8 cm. Left ureteral stent in place terminating in the renal pelvis. No hydronephrosis. No convincing evidence of calculus or mass. Normal perfusion. Bladder: Incompletely distended. Stent visualized. Bilateral ureteral jets not visualized. Other: None. IMPRESSION: 1. No convincing evidence of obstruction. Left ureteral stent in place. Left ureteral calculus not visualized. Electronically signed by: Jann Cedillo M.D. 06/04/2017 11:19 AM Dictated Date/Time: 06/04/2017 11:18 AM Laboratory Results 06/04/17 10:06 Red Blood Count 3.45, Mean Corpuscular Volume 99.4, Mean Corpuscular Hemoglobin 33.6, Mean Corpuscular Hemoglobin Concent 33.8, Mean Platelet Volume 9.4, Neutrophils (%) (Auto) 65.3, Lymphocytes (%) (Auto) 24.9, Monocytes (%) (Auto) 6.1, Eosinophils (%) (Auto) 2.8, Basophils (%) (Auto) 0.5, Neutrophils # (Auto) 4.95, Lymphocytes # (Auto) 1.89, Monocytes # (Auto) 0.46, Eosinophils # (Auto) 0.21, Basophils # (Auto) 0.04 06/04/17 10:06 Test 06/04/17 09:40 06/04/17 10:06 Urine Color RED Urine Appearance TURBID (CLEAR) Urine pH 6.5 (4.5-7.5) Urine Specific [place] 1.025 (1.000-1.030) Urine Protein 3+ (NEG) Urine Glucose (UA) 3+ (NEG) Urine Ketones NEG (NEG) Urine Occult Blood 2+ (NEG) Urine Nitrite NEG (NEG) Urine Bilirubin NEG (NEG) Urine Urobilinogen NEG (NEG) Urine Leukocyte Esterase TRACE (NEG) Urine RBC >30 /hpf (0-4) Urine WBC >30 /hpf (0-5) Urine Epithelial Cells >30 /lpf (0-5) Urine Bacteria NEG (NEG) Urine Mucus PRESENT (NONE PRSENT) White Blood Count 7.58 K/uL (4.8-10.8) Red Blood Count 3.45 M/uL (4.2-5.4) Hemoglobin 11.6 g/dL (12.0-16.0) Hematocrit 34.3 % (37-47) Mean Corpuscular Volume 99.4 fL (80-100) Mean Corpuscular Hemoglobin 33.6 pg (25-34) Mean Corpuscular Hemoglobin Concent 33.8 g/dl (32-36) Platelet Count 153 K/uL (130-400) Mean Platelet Volume 9.4 fL (7.4-10.4) Neutrophils (%) (Auto) 65.3 % Lymphocytes (%) (Auto) 24.9 % Monocytes (%) (Auto) 6.1 % Eosinophils (%) (Auto) 2.8 % Basophils (%) (Auto) 0.5 % Neutrophils # (Auto) 4.95 K/uL (1.4-6.5) Lymphocytes # (Auto) 1.89 K/uL (1.2-3.4) Monocytes # (Auto) 0.46 K/uL (0.11-0.59) Eosinophils # (Auto) 0.21 K/uL (0-0.5) Basophils # (Auto) 0.04 K/uL (0-0.2) RDW Standard Deviation 54.9 fL (36.4-46.3) RDW Coefficient of Variation 15.3 % (11.5-14.5) Immature Granulocyte % (Auto) 0.4 % Immature Granulocyte # (Auto) 0.03 K/uL (0.00-0.02) Anion Gap 6.0 mmol/L (3-11) Est Creatinine Clear Calc Drug Dose 78.6 ml/min Estimated GFR () 57.4 Estimated GFR (Non- 49.6 BUN/Creatinine Ratio 7.4 (10-20) Calcium Level 8.5 mg/dl (8.5-10.1) Total Bilirubin 0.8 mg/dl (0.2-1) Direct Bilirubin 0.2 mg/dl (0-0.2) Aspartate Amino Transf (AST/SGOT) 19 U/L (15-37) Alanine Aminotransferase (ALT/SGPT) 18 U/L (12-78) Alkaline Phosphatase 108 U/L (45-117) Total Protein 7.8 gm/dl (6.4-8.2) Albumin 3.0 gm/dl (3.4-5.0) Beta-Hydroxybutyric Acid 0.58 mg/dL (0.2-2.81) Laboratory results per my review. Medications Administered Medications (Trade) Dose Ordered Sig/Nelda Route Start Time Stop Time Status Last Admin Dose Admin Insulin Human Regular (novoLIN-R U-100 PER UNIT) 10 units NOW STAT SC 06/04/17 11:42 06/04/17 11:44 DC 06/04/17 12:04 10 UNITS Ceftriaxone Sodium (Rocephin Inj) 1 gm NOW STAT IV 06/04/17 11:46 06/04/17 11:47 DC 06/04/17 12:02 1 GM ED Course 0913: Past medical records reviewed. The patient was evaluated in room B6. A complete history and physical examination was performed. 1142: Ordered Insulin Human Regular 10 units. 1146: Ordered Rocephin Inj 1gm IV. 1150: I reviewed the patient's case with Dr. Aguilera, Urology. The patient is excessively incompliant per his account. The patient should call Dr. Raya on Tuesday and be evaluated as an outpatient. 1209: Upon reevaluation, the patient appeared to have improvement of her symptoms. I discussed findings with her. She verbalized agreement of the treatment plan. The patient was discharged home. Medical Decision Differential diagnosis: Etiologies such as uretal obstruction, renal colic, appendicitis, diverticulitis , mesenteric ischemia, aortic pathology, infections, inflammatory bowel disease , PUD, biliary pathology, UTI, as well as others were entertained. This patient was evaluated and appeared to be in no significant distress. Physical examination is somewhat limited due to body habitus. Patient does have some mild left CVA tenderness. UA is concerning for infection however is also contaminated. KUB x-ray confirms placement of the indwelling stent. Ultrasound reveals no significant hydronephrosis. Patient has an indwelling stent that was discussed with Dr. Aguilera. Patient's white blood cell count is normal, she is afebrile. She was given 1 dose of IV ceftriaxone and discharged on Omnicef 300 mg twice a day. She will follow-up with urology this week per Dr. Aguilera's recommendations. Patient will return to the ER for worsening of symptoms or any medical concerns. Medication Reconcilliation Current Medication List: was personally reviewed by me Blood Pressure Screening Patient's blood pressure: Normal blood pressure Blood pressure disposition: Did not require urgent referral Consults Time Called: 1150 Consulting Physician: Dr. Aguilera, Urology. Returned Call: 1150 I reviewed the patient's case with Dr. Aguilera, Urology. The patient is excessively incompliant per his account. The patient should call Dr. Raya on Tuesday and be evaluated as an outpatient. Impression Primary Impression: Retained ureteral stent Additional Impression: UTI (urinary tract infection) Scribe Attestation The scribe's documentation has been prepared under my direction and personally reviewed by me in its entirety. I confirm that the note above accurately reflects all work, treatment, procedures, and medical decision making performed by me. Departure Information Dispostion Home / Self-Care Prescriptions Cefdinir (Omnicef) 300 Mg Cap 300 MG PO Q12H for 7 Days, #14 CAP Prov: Katty Morgan M.D. 06/04/17 Referrals Agustina Cummings M.D. (PCP) Forms HOME CARE DOCUMENTATION FORM, IMPORTANT VISIT INFORMATION, WORK / SCHOOL INSTRUCTIONS Patient Instructions [facility] Additional Instructions Diagnosis: Retained ureteral stent, UTI, hyperglycemia Please check your blood sugar frequently. Check your blood sugar at approximately 1 to 1:30 PM today. Omnicef 300 mg twice daily for 7 days. Start tomorrow. Contact urology, Dr. Raya, on Tuesday to evaluate the urine culture results and appointment time. Drink plenty of clear fluids. Return to the emergency department for worsening of symptoms or any medical concerns. Problem Qualifiers
[2017-06-04 10:24] LABS: BASO % 0.5 %; BASO ABS # 0.04 K/uL (0-0.2); EOS % 2.8 %; EOS ABS # 0.21 K/uL (0-0.5); HEMATOCRIT 34.3 % (37-47); HEMOGLOBIN 11.6 g/dL (12.0-16.0); IG# 0.03 K/uL (0.00-0.02); LYMPH % 24.9 %; LYMPH ABS # 1.89 K/uL (1.2-3.4); MEAN CELL VOLUME 99.4 fL (80-100); MEAN CORPUSCULAR HEMOGLOBIN 33.6 pg (25-34); MEAN CORPUSCULAR HGB CONC 33.8 g/dl (32-36); MEAN PLATELET VOLUME 9.4 fL (7.4-10.4); MONO % 6.1 %; MONO ABS # 0.46 K/uL (0.11-0.59); NEUT % 65.3 %; NEUT ABS # 4.95 K/uL (1.4-6.5); PLATELET COUNT 153 K/uL (130-400); RED CELL DISTRIBUTION WIDTH CV 15.3 % (11.5-14.5); RED CELL DISTRIBUTION WIDTH SD 54.9 fL (36.4-46.3); WHITE BLOOD COUNT 7.58 K/uL (4.8-10.8)
--- NOTE | 2017-06-04 10:34 | DIAGNOSTIC IMAGING REPORT ---
KUB CLINICAL HISTORY: 51 years-old Female presenting with Left ureteral stent. TECHNIQUE: Single supine view of the abdomen was obtained. COMPARISON: 05/20/[address] from 05/06/2017. FINDINGS: Cholecystectomy clips noted. Nonobstructive bowel gas pattern. Moderate stool burden primarily in the right and transverse colon. No gross pneumoperitoneum. Left ureteral stent remains in place with the small left ureteral calculus again evident at the level of L4-5 as on prior exam. Multiple pelvic phleboliths again noted unchanged in distribution. Advanced degenerative changes of the lumbar spine. IMPRESSION: 1. Left ureteral stent in place with unchanged position of the proximal left ureteral calculus at the level of L4-5. Electronically signed by: Jann Cedillo M.D. 06/04/2017 10:33 AM Dictated Date/Time: 06/04/2017 10:30 AM
[2017-06-04 11:08] LABS: CALCIUM 8.5 mg/dl (8.5-10.1); CREATININE 1.24 mg/dl (0.60-1.20); POTASSIUM 3.9 mmol/L (3.5-5.1); TOTAL PROTEIN 7.8 gm/dl (6.4-8.2)
--- NOTE | 2017-06-04 11:20 | DIAGNOSTIC IMAGING REPORT ---
(RENAL)RETROPERITON COMP CLINICAL HISTORY: 51 years-old Female presenting with left ureteral stent placed, hematuria, clots. TECHNIQUE: Real-time grayscale and limited color Doppler ultrasound imaging of the kidneys and bladder was performed. COMPARISON: 05/01/2017. FINDINGS: Right kidney: Normal echogenicity of renal parenchyma. Right kidney measures 12.0 cm. No hydronephrosis. No convincing evidence of calculus or mass. Normal perfusion. Left kidney: Normal echogenicity of renal parenchyma. Left kidney measures 11.8 cm. Left ureteral stent in place terminating in the renal pelvis. No hydronephrosis. No convincing evidence of calculus or mass. Normal perfusion. Bladder: Incompletely distended. Stent visualized. Bilateral ureteral jets not visualized. Other: None. IMPRESSION: 1. No convincing evidence of obstruction. Left ureteral stent in place. Left ureteral calculus not visualized. Electronically signed by: Jann Cedillo M.D. 06/04/2017 11:19 AM Dictated Date/Time: 06/04/2017 11:18 AM
[2017-06-04] MEDS ORDERED: NovoLIN-R INSULIN PER UNIT CHARGE SC STA (11:42)
[2017-06-04] MEDS ORDERED: CEFTRIAXONE SOD INJ 1 GM ADDVIAL IV STA (11:46)
[2017-06-04 12:11] VITALS: BP 115/70; PULSE 72; TEMP 37; O2SAT 96
[2017-06-04] MEDS ORDERED: CEFD1CAP14 PO (12:20)
== END 2017-06-04 13:12 | disposition home or self-care (01) ==
LOC: C.EDB 08:45
DX: N39.0 Urinary tract infection, site not specified (principal); Z96.0 Presence of urogenital implants; E11.9 Type 2 diabetes mellitus without complications; I10 Essential (primary) hypertension; F31.9 Bipolar disorder, unspecified; E66.01 Morbid (severe) obesity due to excess calories; G47.30 Sleep apnea, unspecified; J45.909 Unspecified asthma, uncomplicated; K21.9 Gastro-esophageal reflux disease without esophagitis; Z87.828 Personal history of other (healed) physical injury and trauma; Z79.01 Long term (current) use of 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s; Z79.4 Long term (current) use of insulin; Z79.899 Other long term (current) drug therapy; Z82.49 Family history of ischemic heart disease and other diseases of the circulatory system; Z83.3 Family history of diabetes mellitus; Z83.79 Family history of other diseases of the digestive system; Z83.6 Family history of other diseases of the respiratory system; F17.200 Nicotine dependence, unspecified, uncomplicated; Z88.1 Allergy status to other antibiotic agents; Z88.2 Allergy status to sulfonamides; Z88.5 Allergy status to narcotic agent; Z88.6 Allergy status to analgesic agent; Z88.8 Allergy status to other drugs, medicaments and biological substances; Y84.6 Urinary catheterization as the cause of abnormal reaction of the patient, or of later complication, without mention of misadventure at the time of the procedure

== ENCOUNTER → 2017-06-07 | Outpatient (CLI) | payer OTHER ==
[~2017-06-07] MED LIST changes: +CEFD1CAP14 PO; -DTR5 PO; +POTA20TA16 PO; -TAMS0.4C38 PO; -TRAM-453 PO
== END | disposition home or self-care (01) ==
LOC: C.LABSPEC 17:14
PROVIDERS: ATTEND Urology
DX: N20.1 Calculus of ureter (principal)

== ENCOUNTER 2017-06-10 09:37 | Emergency (ER) | payer OTHER ==
[~2017-06-10] VITALS: Ht 160 cm; Wt 153.1 kg
[~2017-06-10 09:37] MED LIST changes: -POTA20TA16 PO
[2017-06-10 09:43] VITALS: TEMP 36.5; Ht 160 cm; Wt 153.1 kg
--- NOTE | 2017-06-10 10:46 | EMERGENCY ROOM VISIT NOTE ---
History Report prepared by [place]: Josh Littlejohn Under the Supervision of: Dr. Nic Joseph M.D. First contact with patient: 10:33 Chief Complaint: ILLNESS Stated Complaint: SWELLING, PAIN IN KIDNEY AND BLADDER History of Present Illness The patient is a 51 year old female who presents to the Emergency Room for evaluation of chronic left flank pain. She had infected left kidney stone in March 2017 requiring ICU, stenting, sepsis treatment. Since then, she has had multiple emergency department visits with pains related to this and fluid overload. This is her third visit in the last 2 weeks. She is here today for evaluation of continued pain and swelling in her hands. Denies acute changes. States this is same how she was feeling just a few days ago when seen by Uro. She notes she thinks she had a fever yesterday. Pain is left flank radiating to LLQ same as previously. She denies recent falls, vomiting, and rash. Using Oxy IR 10mg q 6 hours as prescribed. States she is here for IV Narcotic pain control. Denies trauma/injury. Source of History: patient Onset: 1 day ago Position: other (global) Timing: constant Associated Symptoms: + fevers (1 day ago), + abdominal pain, No vomiting, No rash Note: The patient denies recent falls. Review of Systems See HPI for pertinent positives & negatives. A total of 10 systems reviewed and were otherwise negative. Past Medical & Surgical Medical Problems: (1) Abdominal pain (2) Abdominal pain (3) Abdominal pain (4) Abdominal wall cellulitis (5) Acute hypokalemia (6) Acute renal failure syndrome (7) Anasarca (8) Ankle pain (9) Asthma (10) Atypical syncope (11) Benign hypertension (12) Bipolar disorder (13) Bowel obstruction (14) Cellulitis (15) CELLULITIS ABDOMEN (16) Cellulitis and abscess of trunk (17) Chronic pain (18) Cirrhosis (19) Contusion of ankle (20) Contusion of periorbital region, left (21) Degenerative joint disease of spine (22) Dehydration (23) Dehydration (24) Depression (25) Diabetes mellitus type 2 (26) DM (diabetes mellitus screen) (27) Drug-seeking behavior (28) DVT (deep venous thrombosis) (29) Exacerbation of chronic back pain (30) Fall (31) Fracture of fourth metatarsal bone of left foot (32) Gastroesophageal reflux disease (33) Hepatic encephalopathy (34) Hernia of abdominal wall (35) Hyperglycemia (36) Hypokalemia (37) Hypokalemia (38) Hypokalemia (39) Hypokalemia (40) Hypothyroid (41) Hypothyroidism (42) Hypoxia (43) Incarcerated ventral hernia (44) Incisional irritation (45) Incisional pain (46) Inguinal lymphadenopathy (47) Insomnia (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 (49) intermediate current use of 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 (50) LUMBAGO (51) Migraine (52) Morbid obesity (53) Morbid obesity (54) Morbid obesity (55) Morbid obesity with BMI of 60.0-69.9, adult (56) Obstructive sleep apnea (57) Pain, dental (58) Rectal bleeding (59) Renal colic on right side (60) Renal insufficiency (61) Renal insufficiency (62) SBO (small bowel obstruction) (63) Septic shock (64) Seroma, postoperative (65) Sleep apnea (66) Spinal stenosis (67) Splenomegaly, not elsewhere classified (68) Supraumbilical hernia (69) Weight gain, abnormal Surgical Problems: (1) H/O hernia repair (2) H/O knee surgery (3) H/O: hysterectomy (4) History of cholecystectomy (5) History of urethral stent (6) Hx of appendectomy Social History Problems: (1) Diabetic neuropathy Family History Cancer Diabetes mellitus Gallbladder disease Heart disease Hypertension Lung disease Social History Smoking Status: Current Every Day Smoker Alcohol Use: none Drug Use: none Marital Status: Housing Status: lives with family Occupation Status: unemployed, disabled Current/Historical Medications Scheduled Carvedilol (Coreg), 12.5 MG PO BID Cimetidine (Tagamet), 400 MG PO DAILY Duloxetine HCl (Duloxetine HCl), 60 MG PO BID Escitalopram Oxalate (Escitalopram Oxalate), 20 MG PO QPM Furosemide (Furosemide), 40 MG PO QAM Insulin Aspart (Novolog Flexpen), 1 DOSE SC TIDM Insulin Glargine (Lantus Solostar), 75 UNITS SQ BID Levothyroxine Sodium (Synthroid), 200 MCG PO DAILY Potassium Ext Rel (Klor-Con), 20 MEQ PO DAILY Rivaroxaban (Xarelto), 20 MG PO QPM Scheduled PRN Albuterol Hfa (Ventolin Hfa), 2-4 PUFFS INH Q6H PRN for SOB/Wheezing Home O2 Therapy (Oxygen), 3 LITERS NA UD PRN for Shortness of Breath Oxycodone Ir (Roxicodone Ir), 10 MG PO Q6H PRN for Pain Allergies Coded Allergies: Iodinated Diagnostic Agents (Verified Allergy, Intermediate, hives-PT DENIES SEE NOTE, 06/10/17) Per patient she has had it since without problem (01/25/16 Ioversal given with no pretreats and no mention of rxn; also given Ioversal 11/26/06 with pretreats) Adhesives (Verified Allergy, Mild, RED RASH CAUSED BY PAPER TAPE, 06/10/17) Alprazolam (Verified Allergy, Unknown, MAKES LOOPY,DO AND SAY SILLY THINGS , 06/10/17) Metformin (Verified Allergy, Unknown, HANDS FEET FACE NUMB, 06/10/17) Morphine (Verified Allergy, Unknown, SWELLING LEGS AND FEET, 06/10/17) Vancomycin (Verified Adverse Reaction, Severe, renal failure, required dialysis x 3 MONTHS, 06/10/17) Methylparaben (Verified Adverse Reaction, Intermediate, FLUID RETENTION, ) Oxymorphone (Verified Adverse Reaction, Intermediate, FLUID RETENTION, ) Gabapentin (Verified Adverse Reaction, Mild, Aphasia/Speech impairments, ) Sulfa Antibiotics (Verified Adverse Reaction, Mild, GI SYMPTOMS, 06/10/17) Acetaminophen (Verified Adverse Reaction, Unknown, Liver problems., ) Codeine (Verified Adverse Reaction, Unknown, UPSET STOMACH, 06/10/17) Pregabalin (Verified Adverse Reaction, Unknown, Aphasia/Speech impairments , 06/10/17) Physical Exam Vital Signs Date Time Temp Pulse Resp B/P (MAP) Pulse Ox O2 Delivery O2 Flow Rate FiO2 06/10/17 14:45 71 16 148/88 94 06/10/17 13:48 62 18 109/64 99 Room Air 06/10/17 11:44 64 20 130/60 96 Room Air 06/10/17 09:43 36.5 72 20 132/91 98 Room Air Physical Exam GENERAL: Patient is chronically unwell appearing and in mild distress. Morbidly obese. She smells of cigarettes. HEENT: No acute trauma, normocephalic atraumatic, mucous membranes moist, no nasal congestion, no scleral icterus. NECK: No stridor, no adenopathy, no meningismus, trachea is midline. LUNGS: No dyspnea. Clear to auscultation and equal bilaterally. No wheeze, no rhonchi. HEART: Regular rate and rhythm. No murmurs, rubs, gallops appreciated. ABDOMEN: Soft, nontender, bowel sounds positive, no masses appreciated, no peritonitis. BACK: No midline tenderness, no CVA tenderness. Vague left flank tenderness to palpation. EXTREMITIES: Normal motion all extremities, no cyanosis, no pitting edema. Obese with improved swelling from previous examination 3 weeks ago by myself. NEUROLOGIC: Alert and oriented, no acute motor or sensory deficits, no focal weakness, cranial nerves grossly intact. SKIN: No rash, no jaundice, no diaphoresis. Medical Decision & Procedures Laboratory Results 06/10/17 11:00 Red Blood Count 3.42, Mean Corpuscular Volume 99.1, Mean Corpuscular Hemoglobin 33.3, Mean Corpuscular Hemoglobin Concent 33.6, Mean Platelet Volume 8.9, Neutrophils (%) (Auto) 61.7, Lymphocytes (%) (Auto) 27.3, Monocytes (%) (Auto) 8.7, Eosinophils (%) (Auto) 1.3, Basophils (%) (Auto) 0.4, Neutrophils # (Auto) 3.28, Lymphocytes # (Auto) 1.45, Monocytes # (Auto) 0.46, Eosinophils # (Auto) 0.07, Basophils # (Auto) 0.02 06/10/17 11:00 Test 06/10/17 10:55 06/10/17 11:00 06/10/17 13:48 Urine Color YELLOW Urine Appearance CLOUDY (CLEAR) Urine pH 7.5 (4.5-7.5) Urine Specific [place] 1.019 (1.000-1.030) Urine Protein 1+ (NEG) Urine Glucose (UA) 3+ (NEG) Urine Ketones NEG (NEG) Urine Occult Blood 3+ (NEG) Urine Nitrite NEG (NEG) Urine Bilirubin NEG (NEG) Urine Urobilinogen NEG (NEG) Urine Leukocyte Esterase MODERATE (NEG) Urine WBC (Auto) >30 /hpf (0-5) Urine RBC (Auto) >30 /hpf (0-4) Urine Hyaline Casts (Auto) 10-30 /lpf (0-5) Urine Epithelial Cells (Auto) 10-20 /lpf (0-5) Urine Bacteria (Auto) NEG (NEG) White Blood Count 5.31 K/uL (4.8-10.8) Red Blood Count 3.42 M/uL (4.2-5.4) Hemoglobin 11.4 g/dL (12.0-16.0) Hematocrit 33.9 % (37-47) Mean Corpuscular Volume 99.1 fL (80-100) Mean Corpuscular Hemoglobin 33.3 pg (25-34) Mean Corpuscular Hemoglobin Concent 33.6 g/dl (32-36) Platelet Count 126 K/uL (130-400) Mean Platelet Volume 8.9 fL (7.4-10.4) Neutrophils (%) (Auto) 61.7 % Lymphocytes (%) (Auto) 27.3 % Monocytes (%) (Auto) 8.7 % Eosinophils (%) (Auto) 1.3 % Basophils (%) (Auto) 0.4 % Neutrophils # (Auto) 3.28 K/uL (1.4-6.5) Lymphocytes # (Auto) 1.45 K/uL (1.2-3.4) Monocytes # (Auto) 0.46 K/uL (0.11-0.59) Eosinophils # (Auto) 0.07 K/uL (0-0.5) Basophils # (Auto) 0.02 K/uL (0-0.2) RDW Standard Deviation 54.3 fL (36.4-46.3) RDW Coefficient of Variation 15.1 % (11.5-14.5) Immature Granulocyte % (Auto) 0.6 % Immature Granulocyte # (Auto) 0.03 K/uL (0.00-0.02) Anion Gap 6.0 mmol/L (3-11) Est Creatinine Clear Calc Drug Dose 89.0 ml/min Estimated GFR () 68.6 Estimated GFR (Non- 59.2 BUN/Creatinine Ratio 6.9 (10-20) Calcium Level 8.0 mg/dl (8.5-10.1) Beta-Hydroxybutyric Acid 0.76 mg/dL (0.2-2.81) Bedside Glucose 306 mg/dl (70-90) Date/Time Source Procedure Growth Status 06/10/17 10:55 Urine , Clean Catch Urine Culture - Final THREE TYPES OF ORGANSIMS PRESENT, ALL... Complete Laboratory results as reviewed by me. Medications Administered Medications (Trade) Dose Ordered Sig/Nelda Route Start Time Stop Time Status Last Admin Dose Admin Ketorolac Tromethamine (Toradol Inj) 15 mg NOW STAT IV 06/10/17 11:22 06/10/17 11:23 DC 06/10/17 11:44 15 MG Insulin Human Regular (novoLIN-R U-100 PER UNIT) 8 units NOW STAT SC 06/10/17 12:05 06/10/17 12:06 DC 06/10/17 13:48 8 UNITS Potassium Chloride (Klor-Con Tab) 20 meq NOW STAT PO 06/10/17 12:06 06/10/17 12:07 DC 06/10/17 13:46 20 MEQ Ondansetron HCl (Zofran Inj) 4 mg NOW STAT IV 06/10/17 13:00 06/10/17 13:01 DC 06/10/17 13:46 4 MG ED Course 1035: The patient was evaluated in room A9. A complete history and physical exam was performed. 1203: I checked in with the patient. She states she cannot live like this and cannot go home. She requests to be evaluated by a hospitalist. She states she has not been eating. 1423: I discussed the patient's case with Dr. Glover who states the patient does not need to be admitted. 1430: Reevaluated the patient. Discussed results and discharge instructions: She verbalized understanding and agreement. The patient is ready for discharge. Medical Decision Differential: Renal Colic, Pyelonephritis, Hydronephrosis, Appendicitis, Diverticulitis, Retroperitoneal Bleed/Infection, Aortic Pathology, MSK, Neurologic Pathology, amongst other pathologies entertained. 51 yr old female arrives for evaluation of continued left flank pain, weakness, nausea, and per patient weight gain. This has been ongoing for quite some time but has been exacerbated over last few months post left ureteral calculus that she became septic from, with now multiple evaluations in ED for essentially same complaints.. Exam she does not appear in very much distress, has lost weight since last evaluation and has no significant pain on palpation of abdomen nor left flank. She has very large amounts of narcotics at home thus I do not feel it appropriate for her to be obtaining them here. Did given some Toradol after she declined Tylenol. Labs are unremarkable other than some hypoK which is likely Lasix related and was repleated along with some Insulin are her sugars are once again elevated. No fevers, no Bacteria in urine and WBC OK. Culture just a few days ago negative for bacteria thus I feel further is unnecessary unless this culture returns positive. She is following closely already with Urology. Of note she is very focused on receiving narcotics which I made clear to her I felt was dangerous. Patient not pleased with me that I felt she did not meet admission criteria thus I discussed case with Dr Glover who with me went and discussed this further with patient and also agrees no admission criteria. I advised continued following with PCP, stressed importance of her taking her medications and advised keeping Urology appointments. [place] Drug Monitoring Program Drug Monitoring Findings: The patient has been given 120 oOXY IR 10 mg tablets 8 days ago. She also has monthly oxycodone and tramadol prescriptions. Medication Reconcilliation Current Medication List: was personally reviewed by me Blood Pressure Screening Patient's blood pressure: Normal blood pressure Blood pressure disposition: Did not require urgent referral Consults Time Called: 1421 Consulting Physician: Mariluz Glover MD Returned Call: [phone] Discussed the patient's case with Dr. Glover who states that she does not need to be admitted. Impression Primary Impression: Failure to thrive Additional Impressions: Chronic abdominal pain Hypokalemia Hyperglycemia Scribe Attestation The scribe's documentation has been prepared under my direction and personally reviewed by me in its entirety. I confirm that the note above accurately reflects all work, treatment, procedures, and medical decision making performed by me. Departure Information Dispostion Home / Self-Care Prescriptions Potassium Ext Rel (Klor-Con) 20 Meq Tabcr 20 MEQ PO DAILY, #5 TAB Prov: Nic Joseph M.D. 06/10/17 Referrals Agustina Cummings M.D. (PCP) Patient Instructions My [facility] Additional Instructions Your potassium was low. Eating a well balanced diet is important. We will start you on some potassium by mouth as well. Discuss with your primary care provider. Return if fevers, vomiting, passing out or other concerning symptoms. It is important you control your blood sugars. You have been examined and treated today on an emergency basis only. This is not a substitute for, or an effort to provide, complete comprehensive medical care. It is impossible to recognize and treat all injuries or illnesses in a single emergency department visit. It is therefore important that you follow up closely with your Primary Physician. Call as soon as possible for an appointment so you can review all labs, imaging and other testing that you had. Return to Emergency Department, call 911 or seek immediate medical attention if you feel your symptoms are worsening. Problem Qualifiers
[2017-06-10] MEDS ORDERED: KETOROLAC TROMETHAMINE 30 MG/ML VIAL IV STA (11:22)
[2017-06-10 11:25] LABS: BASO % 0.4 %; BASO ABS # 0.02 K/uL (0-0.2); EOS % 1.3 %; EOS ABS # 0.07 K/uL (0-0.5); HEMATOCRIT 33.9 % (37-47); HEMOGLOBIN 11.4 g/dL (12.0-16.0); IG# 0.03 K/uL (0.00-0.02); LYMPH % 27.3 %; LYMPH ABS # 1.45 K/uL (1.2-3.4); MEAN CELL VOLUME 99.1 fL (80-100); MEAN CORPUSCULAR HEMOGLOBIN 33.3 pg (25-34); MEAN CORPUSCULAR HGB CONC 33.6 g/dl (32-36); MEAN PLATELET VOLUME 8.9 fL (7.4-10.4); MONO % 8.7 %; MONO ABS # 0.46 K/uL (0.11-0.59); NEUT % 61.7 %; NEUT ABS # 3.28 K/uL (1.4-6.5); PLATELET COUNT 126 K/uL (130-400); RED CELL DISTRIBUTION WIDTH CV 15.1 % (11.5-14.5); RED CELL DISTRIBUTION WIDTH SD 54.3 fL (36.4-46.3); WHITE BLOOD COUNT 5.31 K/uL (4.8-10.8)
[2017-06-10 11:33] LABS: CREATININE 1.07 mg/dl (0.60-1.20); POTASSIUM 2.9 mmol/L (3.5-5.1)
[2017-06-10] MEDS ORDERED: NovoLIN-R INSULIN PER UNIT CHARGE SC STA (12:05)
[2017-06-10] MEDS ORDERED: POTASSIUM CHLORIDE 20 MEQ TABCR PO STA (12:06)
[2017-06-10] MEDS ORDERED: ONDANSETRON INJ 2 MG/ML 2 ML VIAL IV STA (13:00)
[2017-06-10] MEDS ORDERED: POTA20TA16 PO (14:25)
[2017-06-10 14:45] VITALS: BP 148/88; PULSE 71; O2SAT 94
== END 2017-06-10 14:45 | disposition home or self-care (01) ==
LOC: C.EDB 09:39 → C.EDA 14:45
DX: R62.7 Adult failure to thrive (principal); R10.12 Left upper quadrant pain; R10.32 Left lower quadrant pain; G89.29 Other chronic pain; E87.6 Hypokalemia; E11.65 Type 2 diabetes mellitus with hyperglycemia; J45.909 Unspecified asthma, uncomplicated; I10 Essential (primary) hypertension; M47.9 Spondylosis, unspecified; F32.9 Major depressive disorder, single episode, unspecified; E11.40 Type 2 diabetes mellitus with diabetic neuropathy, unspecified; Z86.718 Personal history of other venous thrombosis and embolism; K21.9 Gastro-esophageal reflux disease without esophagitis; E03.9 Hypothyroidism, unspecified; Z79.4 Long term (current) use of insulin; E66.01 Morbid (severe) obesity due to excess calories; Z68.44 Body mass index [BMI] 60.0-69.9, adult; M48.00 Spinal stenosis, site unspecified; F17.200 Nicotine dependence, unspecified, uncomplicated; Z90.710 Acquired absence of both cervix and uterus; Z79.01 Long term (current) use of 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s; Z83.3 Family history of diabetes mellitus; Z82.49 Family history of ischemic heart disease and other diseases of the circulatory system; Z91.041 Radiographic dye allergy status; Z91.048 Other nonmedicinal substance allergy status; Z88.2 Allergy status to sulfonamides; Z88.6 Allergy status to analgesic agent; Z88.1 Allergy status to other antibiotic agents; Z88.8 Allergy status to other drugs, medicaments and biological substances; Z88.5 Allergy status to narcotic agent

== ENCOUNTER → 2017-06-16 | Day surgery (SDC) | payer OTHER ==
[2017-05-05 13:30] VITALS: BMI 61.0
[2017-05-05 13:47] VITALS: BMI 60.0
--- NOTE | 2017-05-05 14:24 | PAT Medication Instructions ---
Service Date May 05, 2017. Current Home Medication List Carvedilol (Coreg), 12.5 MG PO BID Duloxetine Hcl (Cymbalta), 60 MG PO BID Escitalopram Oxalate (Lexapro), 20 MG PO QPM Home O2 Therapy (Oxygen), 3 LITERS NA UD PRN for Shortness of Breath Insulin Aspart (Novolog Flexpen), UNITS SC TIDM Insulin Glargine (Lantus Solostar), 75 UNITS SQ BID Levothyroxine Sodium (Levothyroxine Sodium), 200 MCG PO DAILY Nitrofurantoin Macrocrystals (Macrodantin), 50 MG PO HS Oxycodone Ir (Roxicodone Ir), 10 MG PO Q6H PRN for Pain Rivaroxaban (Xarelto), 20 MG PO QPM Tamsulosin Hcl (Flomax), 0.4 MG PO DAILY PRN for clerical support Instructions For Your Scheduled Surgery - Continue as directed if needed: Home O2 Therapy (Oxygen), 3 LITERS NA UD PRN for Shortness of Breath - Hold the following medications the morning of surgery: Insulin Aspart (Novolog Flexpen), UNITS SC TIDM Tamsulosin Hcl (Flomax), 0.4 MG PO DAILY PRN for RN - Take the following medications the morning of surgery with a sip of water: Oxycodone Ir (Roxicodone Ir), 10 MG PO Q6H PRN for Pain (okay to take up to 4 hours prior to surgery if needed) Levothyroxine Sodium (Levothyroxine Sodium), 200 MCG PO DAILY Duloxetine Hcl (Cymbalta), 60 MG PO BID Carvedilol (Coreg), 12.5 MG PO BID - Take the following medications as scheduled the night before surgery: Rivaroxaban (Xarelto), 20 MG PO QPM (okay to continue per surgeon) Oxycodone Ir (Roxicodone Ir), 10 MG PO Q6H PRN for Pain (if needed) Nitrofurantoin Macrocrystals (Macrodantin), 50 MG PO HS Insulin Glargine (Lantus Solostar), 75 UNITS SQ BID Escitalopram Oxalate (Lexapro), 20 MG PO QPM Duloxetine Hcl (Cymbalta), 60 MG PO BID Carvedilol (Coreg), 12.5 MG PO BID Tamsulosin Hcl (Flomax), 0.4 MG PO DAILY PRN for RN - For Insulin Dependent Diabetic patients: Test blood sugar A.M. of surgery. - If Blood sugar greater than 150, take half of your regular dose of: Insulin Glargine (Lantus Solostar), take 37 units - If Blood sugar less than 150, do not take any: Insulin Glargine ( Lantus Solostar) If you have any questions please call us at [phone] or [phone] or [phone]
[~2017-06-16] VITALS: Ht 162.6 cm; Wt 159.2 kg
[~2017-06-16] MED LIST changes: +ATROPINE SULFATE 0.1 MG/ML 5ML SYR IV PRN; -CEFD1CAP14 PO; +EpHEDrine SULFATE INJ 50 MG/ML AMP IV PRN; +FENTANYL CITRATE INJ 50 MCG/1 ML 2 ML VIAL IV PRN; +FENTANYL CITRATE INJ 50 MCG/1 ML 2 ML VIAL ONE; +GENTAMICIN INJ 160 MG in DEXTROSE 5% 100ML 100 ML IV SCH; +LACTATED RINGER'S 1000ML 1,000 ML IV SCH; +LIDOCAINE HCL 2% 2 ML VIAL (20MG/ML) ONE; +MIDAZOLAM HCL 1 MG/ML 2ML VIAL ONE; +ONDANSETRON INJ 2 MG/ML 2 ML VIAL IV PRN; +ONDANSETRON INJ 2 MG/ML 2 ML VIAL ONE; +POTA20TA16 PO; +PROPOFOL IV EMULSION 10 MG/ML 20 ML VIAL IV ONE; +SUCCINYLCHOLINE CHLORIDE 20 MG/ML 10 ML VIAL IV ONE
[2017-06-16 11:16] VITALS: BP 150/75; PULSE 65; TEMP 36.7; O2SAT 96; Ht 162.6 cm; Wt 159.2 kg
--- NOTE | 2017-06-16 12:45 | History & Physical Bridge Note ---
H&P Re-Evaluation Bridge Note: I have examined the patient, reviewed the History & Physical and in the interval since the performance of the History & Physical I have noted the following changes of clinical significance: Patient stopped all meds including cardiac and DM meds a week ago due to cost of pills. As noted, this increases her already high risk for surgery. Wish to be rescheduled, will arrange. Importance of compliance reviewed. As noted soon stent will be near the end of its expected effective lifespan.
== END | disposition home or self-care (01) ==
LOC: C.ACU 10:47
PROVIDERS: ATTEND Urology
DX: N20.1 Calculus of ureter (principal); Z53.09 Procedure and treatment not carried out because of other contraindication; E66.01 Morbid (severe) obesity due to excess calories; N39.0 Urinary tract infection, site not specified; Z86.718 Personal history of other venous thrombosis and embolism; J45.909 Unspecified asthma, uncomplicated; K74.60 Unspecified cirrhosis of liver; E11.42 Type 2 diabetes mellitus with diabetic polyneuropathy; E78.5 Hyperlipidemia, unspecified; K21.9 Gastro-esophageal reflux disease without esophagitis; I10 Essential (primary) hypertension; Z96.659 Presence of unspecified artificial knee joint; Z83.3 Family history of diabetes mellitus; Z82.49 Family history of ischemic heart disease and other diseases of the circulatory system; F17.200 Nicotine dependence, unspecified, uncomplicated; Z88.5 Allergy status to narcotic agent; Z91.041 Radiographic dye allergy status; Z88.1 Allergy status to other antibiotic agents

== ENCOUNTER 2017-06-24 00:59 | Emergency (ER) | payer OTHER ==
[~2017-06-24] VITALS: Ht 160 cm; Wt 156.0 kg
[~2017-06-24 00:59] MED LIST changes: -ATROPINE SULFATE 0.1 MG/ML 5ML SYR IV PRN; -EpHEDrine SULFATE INJ 50 MG/ML AMP IV PRN; -FENTANYL CITRATE INJ 50 MCG/1 ML 2 ML VIAL IV PRN; -FENTANYL CITRATE INJ 50 MCG/1 ML 2 ML VIAL ONE; -GENTAMICIN INJ 160 MG in DEXTROSE 5% 100ML 100 ML IV SCH; -LACTATED RINGER'S 1000ML 1,000 ML IV SCH; -LIDOCAINE HCL 2% 2 ML VIAL (20MG/ML) ONE; -MIDAZOLAM HCL 1 MG/ML 2ML VIAL ONE; -ONDANSETRON INJ 2 MG/ML 2 ML VIAL IV PRN; -ONDANSETRON INJ 2 MG/ML 2 ML VIAL ONE; -PROPOFOL IV EMULSION 10 MG/ML 20 ML VIAL IV ONE; -SUCCINYLCHOLINE CHLORIDE 20 MG/ML 10 ML VIAL IV ONE
[2017-06-24 01:00] VITALS: TEMP 37.1; Ht 160 cm; Wt 156.0 kg
--- NOTE | 2017-06-24 01:15 | EMERGENCY ROOM VISIT NOTE ---
History Report prepared by [place]: Rafaela Acuna Under the Supervision of: Dr. Nic Joseph M.D. First contact with patient: 01:06 Chief Complaint: STROKE SYMPTOMS Stated Complaint: STROKE SYMPTOMS History of Present Illness The patient is a 51 year old female who presents to the Emergency Room with complaints of sudden stroke-like symptoms beginning 45 minutes prior to arrival. The patient complains of pain in her head, a left facial droop, and states that she is talking funny. She also complains of abdominal pain. The patient reports that she is on Xarelto. Per caregiver, the patient had slurred speech. Per caregiver, the patient had a wine cooler and half of a gabapentin prior to arrival. Source of History: patient, caregiver Onset: 45 minutes prior to arrival Position: other (global) Quality: other (stroke-like symptoms ) Timing: other (sudden ) Associated Symptoms: + headache (pain in her head), + abdominal pain Note: additional symptoms: left facial droop, talking funny, slurred speech Review of Systems See HPI for pertinent positives & negatives. A total of 10 systems reviewed and were otherwise negative. Past Medical & Surgical Medical Problems: (1) Abdominal pain (2) Abdominal pain (3) Abdominal pain (4) Abdominal wall cellulitis (5) Acute hypokalemia (6) Acute renal failure syndrome (7) Anasarca (8) Ankle pain (9) Asthma (10) Atypical syncope (11) Benign hypertension (12) Bipolar disorder (13) Bowel obstruction (14) Cellulitis (15) CELLULITIS ABDOMEN (16) Cellulitis and abscess of trunk (17) Chronic pain (18) Cirrhosis (19) Contusion of ankle (20) Contusion of periorbital region, left (21) Degenerative joint disease of spine (22) Dehydration (23) Dehydration (24) Depression (25) Diabetes mellitus type 2 (26) DM (diabetes mellitus screen) (27) Drug-seeking behavior (28) DVT (deep venous thrombosis) (29) Exacerbation of chronic back pain (30) Fall (31) Fracture of fourth metatarsal bone of left foot (32) Gastroesophageal reflux disease (33) Hepatic encephalopathy (34) Hernia of abdominal wall (35) Hyperglycemia (36) Hypokalemia (37) Hypokalemia (38) Hypokalemia (39) Hypokalemia (40) Hypothyroid (41) Hypothyroidism (42) Hypoxia (43) Incarcerated ventral hernia (44) Incisional irritation (45) Incisional pain (46) Inguinal lymphadenopathy (47) Insomnia (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 (50) LUMBAGO (51) Migraine (52) Morbid obesity (53) Morbid obesity (54) Morbid obesity (55) Morbid obesity with BMI of 60.0-69.9, adult (56) Obstructive sleep apnea (57) Pain, dental (58) Rectal bleeding (59) Renal colic on right side (60) Renal insufficiency (61) Renal insufficiency (62) SBO (small bowel obstruction) (63) Septic shock (64) Seroma, postoperative (65) Sleep apnea (66) Spinal stenosis (67) Splenomegaly, not elsewhere classified (68) Supraumbilical hernia (69) Weight gain, abnormal Surgical Problems: (1) H/O hernia repair (2) H/O knee surgery (3) H/O: hysterectomy (4) History of cholecystectomy (5) History of urethral stent (6) Hx of appendectomy Social History Problems: (1) Diabetic neuropathy Family History Cancer Diabetes mellitus Gallbladder disease Heart disease Hypertension Lung disease Social History Smoking Status: Current Every Day Smoker Alcohol Use: none Drug Use: none Marital Status: Housing Status: lives with family Occupation Status: unemployed, disabled Current/Historical Medications Scheduled Carvedilol (Coreg), 12.5 MG PO BID Cimetidine (Tagamet), 400 MG PO DAILY Duloxetine HCl (Duloxetine HCl), 60 MG PO BID Escitalopram Oxalate (Escitalopram Oxalate), 20 MG PO QPM Furosemide (Furosemide), 40 MG PO QAM Insulin Aspart (Novolog Flexpen), 1 DOSE SC TIDM Insulin Glargine (Lantus Solostar), 77 UNITS SQ BID Levothyroxine Sodium (Synthroid), 200 MCG PO DAILY Potassium Ext Rel (Klor-Con), 20 MEQ PO DAILY Rivaroxaban (Xarelto), 20 MG PO QPM Scheduled PRN Albuterol Hfa (Ventolin Hfa), 2-4 PUFFS INH Q6H PRN for SOB/Wheezing Home O2 Therapy (Oxygen), 3 LITERS NA UD PRN for Shortness of Breath Oxycodone Ir (Roxicodone Ir), 10 MG PO Q6H PRN for Pain Allergies Coded Allergies: Iodinated Diagnostic Agents (Verified Allergy, Intermediate, hives-PT DENIES SEE NOTE, 06/24/17) Per patient she has had it since without problem (01/25/16 Ioversal given with no pretreats and no mention of rxn; also given Ioversal 11/26/06 with pretreats) Adhesives (Verified Allergy, Mild, RED RASH CAUSED BY PAPER TAPE, 06/24/17) Alprazolam (Verified Allergy, Unknown, MAKES LOOPY,DO AND SAY SILLY THINGS , 06/24/17) Metformin (Verified Allergy, Unknown, HANDS FEET FACE NUMB, 06/24/17) Morphine (Verified Allergy, Unknown, SWELLING LEGS AND FEET, 06/24/17) Vancomycin (Verified Adverse Reaction, Severe, renal failure, required dialysis x 3 MONTHS, 06/24/17) Methylparaben (Verified Adverse Reaction, Intermediate, FLUID RETENTION, ) Oxymorphone (Verified Adverse Reaction, Intermediate, FLUID RETENTION, 06/24) Gabapentin (Verified Adverse Reaction, Mild, Aphasia/Speech impairments, ) Sulfa Antibiotics (Verified Adverse Reaction, Mild, GI SYMPTOMS, 06/24/17) Acetaminophen (Verified Adverse Reaction, Unknown, Liver problems., 06/24/17 ) Codeine (Verified Adverse Reaction, Unknown, UPSET STOMACH, 06/24/17) Pregabalin (Verified Adverse Reaction, Unknown, Aphasia/Speech impairments , 06/24/17) Physical Exam Vital Signs Date Time Temp Pulse Resp B/P (MAP) Pulse Ox O2 Delivery O2 Flow Rate FiO2 06/24/17 05:30 90 18 140/82 97 06/24/17 03:31 95 24 113/79 95 Room Air 06/24/17 01:16 95 Room Air 06/24/17 01:00 37.1 72 20 158/78 100 Room Air Physical Exam GENERAL: Patient is morbidly obese and in no acute distress. HEENT: No acute trauma, normocephalic atraumatic, mucous membranes moist, no nasal congestion, no scleral icterus. NECK: No stridor, no adenopathy, no meningismus, trachea is midline. LUNGS: No dyspnea. Clear to auscultation and equal bilaterally. No wheeze, no rhonchi. HEART: Regular rate and rhythm. No murmurs, rubs, gallops appreciated. ABDOMEN: Soft, nontender, bowel sounds positive, no masses appreciated, no peritonitis. BACK: No midline tenderness, no CVA tenderness EXTREMITIES: Normal motion all extremities, no cyanosis, no edema. NEUROLOGIC: Alert and oriented, no acute motor or sensory deficits, cranial nerves grossly intact. Questionable left facial droop which appears similar to every time I have seen her. No slurred speech and is easily able to move all facial muscles without difficulty. Upon arrival of significant other, she has mild slurring of speech when he brings it up. SKIN: No rash, no jaundice, no diaphoresis. Medical Decision & Procedures ER Provider Diagnostic Interpretation: Radiology results and stated below per my review and [facility]. CT HEAD: No acute intracranial hemorrhage, midline shift, mass effect, hydrocephalus, or infarct. Bony structures and soft tissues are grossly unremarkable. Chest X-Ray: X ray results are stated below per my interpretation: Chest: 1 view: No infiltrate, no effusion, normal cardiac border. MRA HEAD WITHOUT CONTRAST HISTORY: Mental status change left facial droop, reported slurred speech TECHNIQUE: 3-D [id number] MRA of the brain was performed without contrast. COMPARISON STUDY: None. FINDINGS: Visualized intracranial internal carotid arteries, distal vertebral arteries, and basilar artery are widely patent. There is no significant stenosis, occlusion, or aneurysm seen within the bilateral ACAs, MCAs, or assistant guest services manager. Mild/moderate multifocal moderate narrowing of the mid and distal vasculature of the middle and posterior cerebral circulation. IMPRESSION: No significant stenosis, occlusion, or aneurysm within the [place]. Mild/moderate multifocal narrowing of the mid and distal vasculature of the middle and posterior cerebral circulation. Possibility of a component of vasculitis is not excluded. The above report was generated using voice recognition software. It may contain grammatical, syntax or spelling errors. Electronically signed by: Will Holder M.D. 06/24/2017 6:57 AM Dictated Date/Time: 06/24/2017 6:52 AM MRI OF THE BRAIN WITHOUT AND WITH IV CONTRAST CLINICAL HISTORY: slurred speech, left facial droop post etoh/gabapentin COMPARISON STUDY: MRI of the brain December 17, [address] T June 24, 2017. TECHNIQUE: Utilizing a 1.5 Britt magnet and dedicated coil, multiplanar, multiecho imaging of the brain was performed pre and postcontrast administration. IV administration of 15.5 mL of Gadavist contrast was uneventful. FINDINGS: There are no foci of restricted diffusion. No acute intracranial hemorrhage, midline shift or mass effect is present. Brain volume is normal. Ventricular system is normal. Basilar cisterns are patent. There are no extra-axial collections. Flow-voids for the major intracranial vessels are present. Orbits are unremarkable. There is trace fluid within left mastoid air cells. IMPRESSION: 1. No acute intracranial findings. 2. No intracranial mass or pathologic enhancement. Electronically signed by: Vini Alvarado M.D. 06/24/2017 6:56 AM Dictated Date/Time: 06/24/2017 6:32 AM NECK MRA HISTORY: Possible stroke left facial droop, reported slurred speech TECHNIQUE: [id number] and gadolinium-enhanced MRA of the neck was performed both before and after the intravenous administration of contrast. All measurements were calculated based on NASCET criteria. The patient was administered 50.5 cc of intravenous Gadavist COMPARISON STUDY: None. FINDINGS: The examination was limited from a technical standpoint due to the patient's large body habitus. The technologist had difficulty getting the patient into the imaging coil. The aortic arch and proximal great vessels are widely patent. There is no significant stenosis, occlusion, or dissection identified within the bilateral common carotid, internal carotid, or vertebral arteries. IMPRESSION: No significant stenosis, occlusion, or dissection identified within the carotid or vertebral arteries. Electronically signed by: Romie Lincoln M.D. 06/24/2017 6:50 AM Dictated Date/Time: 06/24/2017 6:48 AM Laboratory Results 06/24/17 01:10 Red Blood Count 3.60, Mean Corpuscular Volume 98.3, Mean Corpuscular Hemoglobin 33.3, Mean Corpuscular Hemoglobin Concent 33.9, Mean Platelet Volume 8.8, Neutrophils (%) (Auto) 65.8, Lymphocytes (%) (Auto) 25.2, Monocytes (%) (Auto) 7.1, Eosinophils (%) (Auto) 1.5, Basophils (%) (Auto) 0.1, Neutrophils # (Auto) 4.74, Lymphocytes # (Auto) 1.82, Monocytes # (Auto) 0.51, Eosinophils # (Auto) 0.11, Basophils # (Auto) 0.01 06/24/17 01:10 Test 06/24/17 01:10 06/24/17 01:22 06/24/17 01:23 White Blood Count 7.21 K/uL (4.8-10.8) Red Blood Count 3.60 M/uL (4.2-5.4) Hemoglobin 12.0 g/dL (12.0-16.0) Hematocrit 35.4 % (37-47) Mean Corpuscular Volume 98.3 fL (80-100) Mean Corpuscular Hemoglobin 33.3 pg (25-34) Mean Corpuscular Hemoglobin Concent 33.9 g/dl (32-36) Platelet Count 154 K/uL (130-400) Mean Platelet Volume 8.8 fL (7.4-10.4) Neutrophils (%) (Auto) 65.8 % Lymphocytes (%) (Auto) 25.2 % Monocytes (%) (Auto) 7.1 % Eosinophils (%) (Auto) 1.5 % Basophils (%) (Auto) 0.1 % Neutrophils # (Auto) 4.74 K/uL (1.4-6.5) Lymphocytes # (Auto) 1.82 K/uL (1.2-3.4) Monocytes # (Auto) 0.51 K/uL (0.11-0.59) Eosinophils # (Auto) 0.11 K/uL (0-0.5) Basophils # (Auto) 0.01 K/uL (0-0.2) RDW Standard Deviation 51.8 fL (36.4-46.3) RDW Coefficient of Variation 14.4 % (11.5-14.5) Immature Granulocyte % (Auto) 0.3 % Immature Granulocyte # (Auto) 0.02 K/uL (0.00-0.02) Prothrombin Time 11.2 SECONDS (9.0-12.0) Prothromb Time International Ratio 1.1 (0.9-1.1) Activated Partial Thromboplast Time 29.7 SECONDS (21.0-31.0) Partial Thromboplastin Ratio 1.1 Anion Gap 7.0 mmol/L (3-11) Est Creatinine Clear Calc Drug Dose 86.8 ml/min Estimated GFR () 65.7 Estimated GFR (Non- 56.7 BUN/Creatinine Ratio 6.0 (10-20) Calcium Level 8.1 mg/dl (8.5-10.1) Total Creatine Kinase 113 U/L (26-192) Creatine Kinase MB 2.1 ng/ml (0.5-3.6) Creatine Kinase MB Ratio 1.9 (0-3.0) Troponin I < 0.015 ng/ml (0-0.045) Urine Opiates Screen NEG (NEG) Urine Methadone, Qualitative NEG (NEG) Urine Barbiturates NEG (NEG) Urine Phencyclidine (PCP) Level NEG (NEG) Ur Amphetamine/Methamphetamine NEG (NEG) MDMA (Ecstasy) Screen NEG (NEG) Urine Benzodiazepines Screen NEG (NEG) Urine Cocaine Metabolite NEG (NEG) Urine Marijuana (THC) NEG (NEG) Ethyl Alcohol mg/dL < 3.0 mg/dl (0-3) Laboratory results as reviewed by me. Medications Administered Medications (Trade) Dose Ordered Sig/Nelda Route Start Time Stop Time Status Last Admin Dose Admin Diphenhydramine HCl (Benadryl Inj) 25 mg NOW STAT IV 06/24/17 03:05 06/24/17 03:06 DC 06/24/17 03:05 25 MG Morphine Sulfate (MoRPHine SULFATE INJ) 4 mg NOW STAT IV 06/24/17 03:46 06/24/17 03:47 DC 06/24/17 03:46 4 MG Ondansetron HCl (Zofran Inj) 4 mg NOW STAT IV 06/24/17 06:49 06/24/17 06:50 DC 06/24/17 07:07 4 MG ECG Per My Interpretation Indication: other (neurological symptoms ) Rate (beats per minute): 71 Rhythm: sinus rhythm Findings: PAC, no acute ischemic change Change: similar morphology compared to previous ED Course 0106: The patient was evaluated in room B9. A complete history and physical exam was performed. 0130: I checked on the patient. 0230: I talked to Dr. Chang who suggested an MRI of the brain, an MRA of the brain, and an MRA of the neck. 0713: Discussed the patient's case with Dr. Rodriguez. The patient will be evaluated for further treatment and disposition. 0725: I checked on the patient and she is showing no neurological deficits. I discussed the findings and Dr. Rodriguez's discussion with her. She states that she will not take aspirin due to an upset stomach. I advised her to call her doctor later to schedule an appointment. The patient also noted that she previously thinks she has had similar episodes like this when she took gabapentin. I also discussed concerns that she has been coming and knows that she will not get narcotics but still demands them, even before required testing. Medical Decision Differential: Sepsis, Infectious (UTI/Pneumonia/Meningitis/etc), Metabolic/ Electrolyte Abnormality, Cardiac, Dehydration, Anemia, Hepatic, Endocrine, Toxicologic, Neurologic, amongst other pathologies entertained. 51 yr old female very well known to myself and department over last few months arrives for evaluation of reported left facial weakness and slurred speech. This apparently started after drinking etoh and taking a gabapentin. Of note her allergy list contains gabapentin causing slurred speech. By this point symptoms are no longer apparent and the way her face is is similar to every other time I have seen her, as well as same as the picture in the system of her from several weeks ago. Unfortunately she has a somewhat belligerent, intoxicated male with her who is very adamant she must be admitted and that she is having a stroke. While I do not find any findings of stroke I did go ahead with CT head, labs, and cxr. These were unremarkable and her BG is actually better controlled than her usual. Her significant other continues to be quite upset that we are not doing anything. I thus opted to do MRI/MRA brain, neck. While over in MRI patient demanding narcotic and even though I've made it clear to her no narcs, I did give in and give her some so that we can get adequate scans, as well as she does take pain meds regularly and we have gotten to point where she regularly would be taking them. After some time MRIs were read. There was no evidence of acute stroke. the MRA of brain revealed diffuse post/ mid vasculare narrowing. I discussed this with Dr Rodriguez who notes this is unlikely vasculitis given her description of stable, non-encephalopathic individual. Advised patient add on Aspirin but she states she can not take this. She is already on Xarelto fortunately. There is possibility this was TIA though no evidence of that currently. She has no TTP of abdomen and she has no evidence of sepsis. She has no evidence this is cardiac in nature and her labs otherwise look OK. Very likely this is due to taking gabapentin while drinking Etoh. She will be discharged with strict instructions to follow up with her PCP and Neurologist. RTED instructions reviewed in depth. Medication Reconcilliation Current Medication List: was personally reviewed by me Blood Pressure Screening Patient's blood pressure: Normal blood pressure Consults Time Called: 0700 Consulting Physician: Dr. Rodriguez- Neurology Returned Call: 07 Discussed the patient's case. The patient will be evaluated for further treatment and disposition. Impression Primary Impression: Slurring of speech Additional Impression: Weakness on left side of face Scribe Attestation The scribe's documentation has been prepared under my direction and personally reviewed by me in its entirety. I confirm that the note above accurately reflects all work, treatment, procedures, and medical decision making performed by me. Departure Information Dispostion Home / Self-Care Referrals Agustina Cummings M.D. (PCP) Patient Instructions My [facility] Additional Instructions Extensive work up of your complaints reveals no evidence of stroke. There is narrowing of the arteries of your brain and this should be discussed with your primary provider, neurologist and circulator. Return if worsening weakness, vision loss, worsening headache, passing out, return of slurred speech, or other concerns. You should discuss starting Aspirin with your primary provider or other options. Please discuss having a sleep study done as well. Do not drink alcohol and use Gabapentin only as prescribed. Problem Qualifiers
[2017-06-24 01:16] VITALS: O2SAT 95
[2017-06-24 01:24] LABS: BASO % 0.1 %; BASO ABS # 0.01 K/uL (0-0.2); EOS % 1.5 %; EOS ABS # 0.11 K/uL (0-0.5); HEMATOCRIT 35.4 % (37-47); IG# 0.02 K/uL (0.00-0.02); LYMPH % 25.2 %; LYMPH ABS # 1.82 K/uL (1.2-3.4); MEAN CELL VOLUME 98.3 fL (80-100); MEAN CORPUSCULAR HEMOGLOBIN 33.3 pg (25-34); MEAN CORPUSCULAR HGB CONC 33.9 g/dl (32-36); MEAN PLATELET VOLUME 8.8 fL (7.4-10.4); MONO % 7.1 %; MONO ABS # 0.51 K/uL (0.11-0.59); NEUT % 65.8 %; NEUT ABS # 4.74 K/uL (1.4-6.5); PLATELET COUNT 154 K/uL (130-400); RED CELL DISTRIBUTION WIDTH CV 14.4 % (11.5-14.5); RED CELL DISTRIBUTION WIDTH SD 51.8 fL (36.4-46.3); WHITE BLOOD COUNT 7.21 K/uL (4.8-10.8)
[2017-06-24 01:36] LABS: INR 1.1 (0.9-1.1); PTT PATIENT 29.7 SECONDS (21.0-31.0)
[2017-06-24 01:44] LABS: BLOOD UREA NITROGEN 7 mg/dl (7-18); CALCIUM 8.1 mg/dl (8.5-10.1); CARBON DIOXIDE 27 mmol/L (21-32); CREATININE 1.11 mg/dl (0.60-1.20); GLUCOSE 199 mg/dl (70-99); POTASSIUM 3.4 mmol/L (3.5-5.1); SODIUM 137 mmol/L (136-145)
[2017-06-24 01:49] LABS: CKMB 2.1 ng/ml (0.5-3.6)
[2017-06-24] MEDS ORDERED: LORAZEPAM 2 MG/ML 1 ML VIAL IV STA (03:02)
[2017-06-24] MEDS ORDERED: DiphenhydrAMINE HCL 50 MG/ML VIAL IV STA (03:05)
[2017-06-24] MEDS ORDERED: MoRPHine SULFATE 4 MG/ML 1 ML CARP\\VIAL IV STA (03:46)
[2017-06-24] MEDS ORDERED: GADAVIST IV PRN (05:10)
--- NOTE | 2017-06-24 06:23 | DIAGNOSTIC IMAGING REPORT ---
CT HEAD WITHOUT CONTRAST (CT) CLINICAL HISTORY: Acute stroke FACIAL DROOP HEADACHE COMPARISON STUDY: 02/26/2016 TECHNIQUE: Axial CT of the brain is performed from the vertex to the skull base. IV contrast was not administered for this examination. A dose lowering technique was utilized adhering to the principles of ALARA. CT DOSE: 537.48 mGy.cm FINDINGS: No intra or extra-axial mass lesions are visualized. There is no CT evidence of acute cortical infarction. There is no evidence of midline shift. There is no acute hemorrhage. No calvarial fractures are visualized. There is no evidence of pathologic ventricular dilatation. There is no evidence of acute sinusitis IMPRESSION: No acute intracranial findings Electronically signed by: Romie Lincoln M.D. 06/24/2017 6:22 AM Dictated Date/Time: 06/24/2017 6:20 AM
[2017-06-24] MEDS ORDERED: ONDANSETRON INJ 2 MG/ML 2 ML VIAL IV STA (06:49)
--- NOTE | 2017-06-24 06:51 | DIAGNOSTIC IMAGING REPORT ---
NECK MRA HISTORY: Possible stroke left facial droop, reported slurred speech TECHNIQUE: Awee-my-cbblwn and gadolinium-enhanced MRA of the neck was performed both before and after the intravenous administration of contrast. All measurements were calculated based on NASCET criteria. The patient was administered 50.5 cc of intravenous Gadavist COMPARISON STUDY: None. FINDINGS: The examination was limited from a technical standpoint due to the patient's large body habitus. The technologist had difficulty getting the patient into the imaging coil. The aortic arch and proximal great vessels are widely patent. There is no significant stenosis, occlusion, or dissection identified within the bilateral common carotid, internal carotid, or vertebral arteries. IMPRESSION: No significant stenosis, occlusion, or dissection identified within the carotid or vertebral arteries. Electronically signed by: Romie Lincoln M.D. 06/24/2017 6:50 AM Dictated Date/Time: 06/24/2017 6:48 AM
--- NOTE | 2017-06-24 06:58 | DIAGNOSTIC IMAGING REPORT ---
MRA HEAD WITHOUT CONTRAST HISTORY: Mental status change left facial droop, reported slurred speech TECHNIQUE: 3-D [id number] MRA of the brain was performed without contrast. COMPARISON STUDY: None. FINDINGS: Visualized intracranial internal carotid arteries, distal vertebral arteries, and basilar artery are widely patent. There is no significant stenosis, occlusion, or aneurysm seen within the bilateral ACAs, MCAs, or drug worker. Mild/moderate multifocal moderate narrowing of the mid and distal vasculature of the middle and posterior cerebral circulation. IMPRESSION: No significant stenosis, occlusion, or aneurysm within the [place]. Mild/moderate multifocal narrowing of the mid and distal vasculature of the middle and posterior cerebral circulation. Possibility of a component of vasculitis is not excluded. The above report was generated using voice recognition software. It may contain grammatical, syntax or spelling errors. Electronically signed by: Will Holder M.D. 06/24/2017 6:57 AM Dictated Date/Time: 06/24/2017 6:52 AM
--- NOTE | 2017-06-24 06:58 | DIAGNOSTIC IMAGING REPORT ---
MRI OF THE BRAIN WITHOUT AND WITH IV CONTRAST CLINICAL HISTORY: slurred speech, left facial droop post etoh/gabapentin COMPARISON STUDY: MRI of the brain December 17, [address] T June 24, 2017. TECHNIQUE: Utilizing a 1.5 Britt magnet and dedicated coil, multiplanar, multiecho imaging of the brain was performed pre and postcontrast administration. IV administration of 15.5 mL of Gadavist contrast was uneventful. FINDINGS: There are no foci of restricted diffusion. No acute intracranial hemorrhage, midline shift or mass effect is present. Brain volume is normal. Ventricular system is normal. Basilar cisterns are patent. There are no extra-axial collections. Flow-voids for the major intracranial vessels are present. Orbits are unremarkable. There is trace fluid within left mastoid air cells. IMPRESSION: 1. No acute intracranial findings. 2. No intracranial mass or pathologic enhancement. Electronically signed by: Vini Alvarado M.D. 06/24/2017 6:56 AM Dictated Date/Time: 06/24/2017 6:32 AM
--- NOTE | 2017-06-24 07:00 | DIAGNOSTIC IMAGING REPORT ---
CHEST ONE VIEW PORTABLE CLINICAL HISTORY: stroke symptoms COMPARISON STUDY: 05/19/2017 FINDINGS: The cardiac and mediastinal contours are normal. There is no evidence of focal pulmonary consolidation. There is no evidence of failure. No pleural effusions are visualized.[ The examination is somewhat limited due to the patient's large body habitus. IMPRESSION: No active disease in the chest. Electronically signed by: Romie Lincoln M.D. 06/24/2017 6:59 AM Dictated Date/Time: 06/24/2017 6:58 AM
[2017-06-24 08:28] VITALS: BP 136/88; PULSE 67; O2SAT 95
[2017-06-25] MEDS ORDERED: CIPR-255 PO (23:21)
[2017-06-25] MEDS ORDERED: KETO10TA PO (23:21)
== END 2017-06-24 08:30 | disposition home or self-care (01) ==
LOC: C.EDB 01:00
DX: R47.81 Slurred speech (principal); R29.810 Facial weakness; F17.200 Nicotine dependence, unspecified, uncomplicated; I10 Essential (primary) hypertension; F31.9 Bipolar disorder, unspecified; E11.9 Type 2 diabetes mellitus without complications; Z79.4 Long term (current) use of insulin; K21.9 Gastro-esophageal reflux disease without esophagitis; E87.6 Hypokalemia; E03.9 Hypothyroidism, unspecified; Z79.01 Long term (current) use of 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s; E66.01 Morbid (severe) obesity due to excess calories; Z68.44 Body mass index [BMI] 60.0-69.9, adult; G47.33 Obstructive sleep apnea (adult) (pediatric); Z90.710 Acquired absence of both cervix and uterus; Z90.49 Acquired absence of other specified parts of digestive tract; Z83.3 Family history of diabetes mellitus; Z82.49 Family history of ischemic heart disease and other diseases of the circulatory system; Z83.79 Family history of other diseases of the digestive system; Z83.6 Family history of other diseases of the respiratory system; Z91.048 Other nonmedicinal substance allergy status; Z88.8 Allergy status to other drugs, medicaments and biological substances; Z88.6 Allergy status to analgesic agent; Z88.1 Allergy status to other antibiotic agents; Z88.2 Allergy status to sulfonamides

== ENCOUNTER 2017-06-25 20:39 | Emergency (ER) | payer OTHER ==
[2017-06-25 20:41] VITALS: TEMP 36.6; Ht 160 cm
[2017-06-25] MEDS ORDERED: KETOROLAC TROMETHAMINE 30 MG/ML VIAL IV STA (21:08)
[2017-06-25] MEDS ORDERED: PROMETHAZINE HCL INJ 25 MG in SODIUM CHLORIDE 0.9% 50ML 50 ML IV STA (21:08)
[2017-06-25] MEDS ORDERED: SODIUM CHLORIDE 0.9% 500ML 500 ML IV STA (21:08)
[2017-06-25 21:38] LABS: BASO % 0.4 %; BASO ABS # 0.02 K/uL (0-0.2); EOS % 2.4 %; EOS ABS # 0.13 K/uL (0-0.5); HEMATOCRIT 31.2 % (37-47); IG# 0.01 K/uL (0.00-0.02); LYMPH % 25.8 %; MEAN CELL VOLUME 99.4 fL (80-100); MEAN CORPUSCULAR HEMOGLOBIN 31.8 pg (25-34); MEAN CORPUSCULAR HGB CONC 32.1 g/dl (32-36); MEAN PLATELET VOLUME 9.2 fL (7.4-10.4); MONO % 6.1 %; MONO ABS # 0.33 K/uL (0.11-0.59); NEUT % 65.1 %; NEUT ABS # 3.53 K/uL (1.4-6.5); PLATELET COUNT 120 K/uL (130-400); RED CELL DISTRIBUTION WIDTH CV 14.6 % (11.5-14.5); WHITE BLOOD COUNT 5.42 K/uL (4.8-10.8)
[2017-06-25 21:59] LABS: ALBUMIN 2.3 gm/dl (3.4-5.0); ALT/SGPT 16 U/L (12-78); BLOOD UREA NITROGEN 8 mg/dl (7-18); CALCIUM 7.9 mg/dl (8.5-10.1); CARBON DIOXIDE 29 mmol/L (21-32); CREATININE 0.97 mg/dl (0.60-1.20); GLUCOSE 186 mg/dl (70-99); POTASSIUM 3.8 mmol/L (3.5-5.1); SODIUM 139 mmol/L (136-145)
[2017-06-25 22:02] LABS: ALKALINE PHOSPHATASE 89 U/L (45-117); AST/SGOT 21 U/L (15-37); TOTAL PROTEIN 6.5 gm/dl (6.4-8.2)
--- NOTE | 2017-06-25 22:08 | DIAGNOSTIC IMAGING REPORT ---
ABD/PELVIS WITHOUT FOR STONE CLINICAL HISTORY: 51 years-old Female presenting with continuous L flank now R flank pain, history of renal stones. TECHNIQUE: Multidetector CT of the abdomen and pelvis was performed without the use of intravenous contrast. IV contrast: None. A dose lowering technique was used consistent with the principles of ALARA (as low as reasonably achievable). COMPARISON: 04/26/2017. CT DOSE (mGy.cm): The estimated cumulative dose is 2348.90 mGy.cm. FINDINGS: [employer] topogram: Cholecystectomy clips and left ureteral stent. Lung bases: Minimal basilar opacities, likely atelectasis. Normal heart size. Coronary artery and mitral annular calcification. No pericardial or pleural effusion. Liver: Nodular contour with relative hypertrophy of the left hepatic lobe and atrophy of the right hepatic lobe consistent with cirrhosis. Density consistent with hepatic steatosis. Biliary: Mild biliary ductal prominence likely a reservoir effect in the post cholecystectomy state. Gallbladder surgically absent. Pancreas: Moderate parenchymal atrophy. Spleen: Enlarged. Adrenal glands: Nodular thickening of the left adrenal gland. Right adrenal gland normal. Kidneys and ureters: Normal noncontrast appearance of the right kidney. Left ureteral stent in place. No left hydronephrosis. Mild periureteral fat stranding likely reactive due to the presence of the stent. Unchanged position of the 4 mm calculus in the proximal left ureter near the level of the ureteropelvic junction. Bladder: Incompletely evaluated secondary to underdistention. Pelvic organs: Uterus surgically absent. No adnexal masses. Bowel: Moderate stool burden in the right colon. Postsurgical changes from appendectomy. No bowel obstruction. Peritoneal cavity: No free fluid or intraperitoneal gas. Lymph nodes: Scattered subcentimeter retroperitoneal lymph nodes, likely reactive. Vasculature: Atherosclerosis of the normal caliber abdominal aorta. Abdominal wall: Significant infiltration along the subcutaneous tissue of the anterior abdominal wall. Multiple small fat-containing ventral hernia is evident in the epigastrium. Musculoskeletal: Degenerative changes of the spine. IMPRESSION: 1. Left ureteral stent in place with likely reactive periureteral fat stranding. Unchanged position of the 4 mm proximal left ureteral calculus at the level of the ureteropelvic junction. 2. Significant infiltration of the anterior abdominal wall similar to prior exam, which may represent exuberant granulation tissue in the setting of postsurgical change. Correlate clinically to exclude cellulitis. 3. Cirrhosis with portal hypertension evidenced by splenomegaly. Electronically signed by: Jann Cedillo M.D. 06/25/2017 10:06 PM Dictated Date/Time: 06/25/2017 9:58 PM
[2017-06-25] MEDS ORDERED: PHENAZOPYRIDINE HCL 200 MG TAB PO STA (22:40)
[2017-06-25] MEDS ORDERED: HYDROmorphone INJ 1 MG/ML SYR IV ONE (22:45)
--- NOTE | 2017-06-25 22:59 | EMERGENCY ROOM VISIT NOTE ---
ED Visit Note First contact with patient: 20:48 The patient was seen and examined with Elise Brush [facility]. I agree with the history, physical and findings. Please see the note for disposition and details.
[2017-06-25] MEDS ORDERED: CEFTRIAXONE SOD INJ 1 GM in DEXTROSE 5% ADD-VANTAGE 50ML 50 ML IV STA (23:01)
[2017-06-25] MEDS ORDERED: CEFTRIAXONE SOD INJ 1 GM ADDVIAL ONE (23:11)
[2017-06-25] MEDS ORDERED: KETO10TA PO (23:21)
[2017-06-25] MEDS ORDERED: CIPR-255 PO (23:21)
--- NOTE | 2017-06-25 23:23 | EMERGENCY ROOM VISIT NOTE ---
History First contact with patient: 20:48 Chief Complaint: UNABLE TO VOID Stated Complaint: KIDNEY/BLADDER ISSUES, UNABLE TO VOID Nursing Triage Summary: patient states since yesterday she has difficulty urinating along with burning sensation . patient states she has a kidney stone with stent placement that she is to have removed next week. History of Present Illness The patient is a 51 year old female who presents to the Emergency Room with complaints of severe bilateral flank pain and difficulty urinating that has been ongoing for several months. The patient has a known left ureteral stone and stent that was placed a few months ago. She is due to have her removed. The patient has had chronic pain in the left side. She is now expressing pain on the right side since yesterday. It radiates to the front of the abdomen. She reports not having a good urinary flow for the last 24 hours. She has also been passing blood. She denies any fever or chills. She is also feeling nauseated. She has not vomited. No problems with bowel movements. 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 (22) Dehydration (23) Dehydration (24) Depression (25) Diabetes mellitus type 2 (26) DM (diabetes mellitus screen) (27) Drug-seeking behavior (28) DVT (deep venous thrombosis) (29) Exacerbation of chronic back pain (30) Fall (31) Fracture of fourth metatarsal bone of left foot (32) Gastroesophageal reflux disease (33) Hepatic encephalopathy (34) Hernia of abdominal wall (35) Hyperglycemia (36) Hypokalemia (37) Hypokalemia (38) Hypokalemia (39) Hypokalemia (40) Hypothyroid (41) Hypothyroidism (42) Hypoxia (43) Incarcerated ventral hernia (44) Incisional irritation (45) Incisional pain (46) Inguinal lymphadenopathy (47) Insomnia (48) group home (current) use of insulin (49) rn long term care current use of 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 (50) LUMBAGO (51) Migraine (52) Morbid obesity (53) Morbid obesity (54) Morbid obesity (55) Morbid obesity with BMI of 60.0-69.9, adult (56) Obstructive sleep apnea (57) Pain, dental (58) Rectal bleeding (59) Renal colic on right side (60) Renal insufficiency (61) Renal insufficiency (62) SBO (small bowel obstruction) (63) Septic shock (64) Seroma, postoperative (65) Sleep apnea (66) Spinal stenosis (67) Splenomegaly, not elsewhere classified (68) Supraumbilical hernia (69) Weight gain, abnormal Surgical Problems: (1) H/O hernia repair (2) H/O knee surgery (3) H/O: hysterectomy (4) History of cholecystectomy (5) History of urethral stent (6) Hx of appendectomy Social History Problems: (1) Diabetic neuropathy Family History Cancer Diabetes mellitus Gallbladder disease Heart disease Hypertension Lung disease Social History Smoking Status: Current Some Day Smoker Alcohol Use: none Drug Use: none Marital Status: Housing Status: lives with family Occupation Status: unemployed, disabled Current/Historical Medications Scheduled Carvedilol (Coreg), 12.5 MG PO BID Cimetidine (Tagamet), 400 MG PO QPM Ciprofloxacin Hcl (Cipro), 500 MG PO BID Duloxetine HCl (Duloxetine HCl), 60 MG PO BID Escitalopram Oxalate (Escitalopram Oxalate), 20 MG PO QPM Furosemide (Furosemide), 40 MG PO QAM Insulin Aspart (Novolog Flexpen), 1 DOSE SC TIDM Insulin Glargine (Lantus Solostar), 77 UNITS SQ BID Ketorolac Tromethamine (Toradol), 10 MG PO TID Levothyroxine Sodium (Synthroid), 200 MCG PO DAILY Potassium Ext Rel (Klor-Con), 20 MEQ PO DAILY Rivaroxaban (Xarelto), 20 MG PO QPM Scheduled PRN Albuterol Hfa (Ventolin Hfa), 2-4 PUFFS INH Q6H PRN for SOB/Wheezing Home O2 Therapy (Oxygen), 3 LITERS NA UD PRN for Shortness of Breath Oxycodone Ir (Roxicodone Ir), 10 MG PO Q6H PRN for Pain Physical Exam Vital Signs Date Time Temp Pulse Resp B/P (MAP) Pulse Ox O2 Delivery O2 Flow Rate FiO2 06/26/17 00:09 78 20 154/72 98 Room Air 06/25/17 22:49 88 22 144/62 97 Room Air 06/25/17 20:41 36.6 57 20 141/84 99 Room Air Physical Exam GENERAL: 51-year-old female, morbidly obese, tearful, SKIN: The skin was warm and dry HEAD: Normocephalic atraumatic. MOUTH: Mucous membranes slightly dry NECK: Supple without nuchal rigidity. No lymphadenopathy. Cervical spine is nontender. No JVD. HEART: Regular rate and rhythm without murmurs gallops or rubs. LUNGS: Clear to auscultation bilaterally without wheezes, rales or rhonchi. No accessory muscle use. ABDOMEN: Positive bowel sounds x 4.Soft, diffuse tenderness to palpation. No focal tenderness. No rebound. Subjective bilateral CVA tenderness bilaterally. MUSCULOSKELETAL: No muscle atrophy, erythema, or edema noted. Strength 5/5 throughout. NEURO: Patient was alert and oriented to person place and time. Normal sensation to touch. No focal neurological deficits. Medical Decision & Procedures ER Provider Diagnostic Interpretation: CT abdomen and pelvis without contrast IMPRESSION: 1. Left ureteral stent in place with likely reactive periureteral fat stranding. Unchanged position of the 4 mm proximal left ureteral calculus at the level of the ureteropelvic junction. 2. Significant infiltration of the anterior abdominal wall similar to prior exam, which may represent exuberant granulation tissue in the setting of postsurgical change. Correlate clinically to exclude cellulitis. 3. Cirrhosis with portal hypertension evidenced by splenomegaly. Electronically signed by: Jann Cedillo M.D. 06/25/2017 10:06 PM Dictated Date/Time: 06/25/2017 9:58 PM The status of this report is Signed. Draft = Not yet reviewed or approved by Radiologist. Signed = Reviewed and approved by Radiologist. Laboratory Results 06/25/17 21:28 Red Blood Count 3.14, Mean Corpuscular Volume 99.4, Mean Corpuscular Hemoglobin 31.8, Mean Corpuscular Hemoglobin Concent 32.1, Mean Platelet Volume 9.2, Neutrophils (%) (Auto) 65.1, Lymphocytes (%) (Auto) 25.8, Monocytes (%) (Auto) 6.1, Eosinophils (%) (Auto) 2.4, Basophils (%) (Auto) 0.4, Neutrophils # (Auto) 3.53, Lymphocytes # (Auto) 1.40, Monocytes # (Auto) 0.33, Eosinophils # (Auto) 0.13, Basophils # (Auto) 0.02 06/25/17 21:28 Test 06/25/17 21:28 06/25/17 21:35 White Blood Count 5.42 K/uL (4.8-10.8) Red Blood Count 3.14 M/uL (4.2-5.4) Hemoglobin 10.0 g/dL (12.0-16.0) Hematocrit 31.2 % (37-47) Mean Corpuscular Volume 99.4 fL (80-100) Mean Corpuscular Hemoglobin 31.8 pg (25-34) Mean Corpuscular Hemoglobin Concent 32.1 g/dl (32-36) Platelet Count 120 K/uL (130-400) Mean Platelet Volume 9.2 fL (7.4-10.4) Neutrophils (%) (Auto) 65.1 % Lymphocytes (%) (Auto) 25.8 % Monocytes (%) (Auto) 6.1 % Eosinophils (%) (Auto) 2.4 % Basophils (%) (Auto) 0.4 % Neutrophils # (Auto) 3.53 K/uL (1.4-6.5) Lymphocytes # (Auto) 1.40 K/uL (1.2-3.4) Monocytes # (Auto) 0.33 K/uL (0.11-0.59) Eosinophils # (Auto) 0.13 K/uL (0-0.5) Basophils # (Auto) 0.02 K/uL (0-0.2) RDW Standard Deviation 52.0 fL (36.4-46.3) RDW Coefficient of Variation 14.6 % (11.5-14.5) Immature Granulocyte % (Auto) 0.2 % Immature Granulocyte # (Auto) 0.01 K/uL (0.00-0.02) Anion Gap 4.0 mmol/L (3-11) Estimated GFR () 77.3 Estimated GFR (Non- 66.7 BUN/Creatinine Ratio 8.1 (10-20) Calcium Level 7.9 mg/dl (8.5-10.1) Total Bilirubin 0.5 mg/dl (0.2-1) Aspartate Amino Transf (AST/SGOT) 21 U/L (15-37) Alanine Aminotransferase (ALT/SGPT) 16 U/L (12-78) Alkaline Phosphatase 89 U/L (45-117) Total Protein 6.5 gm/dl (6.4-8.2) Albumin 2.3 gm/dl (3.4-5.0) Globulin 4.2 gm/dl (2.5-4.0) Albumin/Globulin Ratio 0.5 (0.9-2) Urine Color RED Urine Appearance TURBID (CLEAR) Urine pH 6.5 (4.5-7.5) Urine Specific [place] 1.019 (1.000-1.030) Urine Protein 2+ (NEG) Urine Glucose (UA) TRACE (NEG) Urine Ketones NEG (NEG) Urine Occult Blood 3+ (NEG) Urine Nitrite POS (NEG) Urine Bilirubin NEG (NEG) Urine Urobilinogen NEG (NEG) Urine Leukocyte Esterase LARGE (NEG) Urine WBC (Auto) >30 /hpf (0-5) Urine RBC (Auto) >30 /hpf (0-4) Urine Hyaline Casts (Auto) /lpf (0-5) Urine Epithelial Cells (Auto) >30 /lpf (0-5) Urine Bacteria (Auto) 1+ (NEG) Urine Pathogenic Casts /lpf (0) Urine Yeast (Auto) (NONE PRSENT) Date/Time Source Procedure Growth Status 06/25/17 21:35 Urine,Catheterized Urine Culture - Final GREATER THAN THREE TYPES OF ORGANISMS... Complete Medications Administered Medications (Trade) Dose Ordered Sig/Nelda Route Start Time Stop Time Status Last Admin Dose Admin Sodium Chloride 500 ml @ 999 mls/hr Q31M STAT IV 06/25/17 21:08 06/25/17 21:38 DC 06/25/17 21:33 999 MLS/HR Promethazine HCl 25 mg/Sodium Chloride 51 ml @ 204 mls/hr NOW STAT IV 06/25/17 21:08 06/25/17 21:22 DC 06/25/17 21:34 204 MLS/HR Ketorolac Tromethamine (Toradol Inj) 30 mg NOW STAT IV 06/25/17 21:08 06/25/17 21:11 DC 06/25/17 21:33 30 MG Hydromorphone HCl (Dilaudid Inj) 1 mg ONE ONCE IV 06/25/17 22:45 06/25/17 22:46 DC 06/25/17 22:49 1 MG Phenazopyridine HCl (Pyridium Tab) 200 mg NOW STAT PO 06/25/17 22:40 06/25/17 22:41 DC 06/25/17 22:48 200 MG Ceftriaxone Sodium 1 gm/ Dextrose 50 ml @ 100 mls/hr ONE STAT IV 06/25/17 23:01 06/25/17 23:30 DC 06/25/17 23:01 100 MLS/HR ED Course Patient was seen and examined Vital signs including blood pressure were reviewed medications list was verified with patient Labs were obtained, and a saline lock was established The patient was medicated with Toradol 30 mg and Phenergan 25 mg IV. She was hydrated with 500 mL normal saline. She was also given 1 dose of Pyridium. Imaging was performed and reviewed The patient was still complaining of pain. She was medicated with Dilaudid 1 mg IV. We reviewed her workup. She voiced understanding. She was given 1 g of Rocephin IV. Upon reevaluation, the patient was feeling better. We discussed her disposition. She was comfortable being discharged home. I reviewed discharge instructions the patient. They voiced understanding and had no further questions. Medical Decision Differential diagnosis: Ureteral stone, pyelonephritis, gross hematuria, sepsis , appendicitis, diverticulitis, other infectious etiology, drug-seeking behavior This patient is a 51-year-old female that presents emergency department with ongoing left flank pain and now right-sided flank pain for the last 24 hours. On exam, she was tearful. She had subjective CVA tenderness bilaterally. She was nontoxic in appearance. Her vital signs are stable. Her labs reveal no leukocytosis. Renal function is intact. There was a slight drop in her H&H, however this is stable. Her urinalysis is consistent with infection-positive for nitrates, leukoesterase and greater than 30 WBCs. The urine appears worse to her previous visit. I believe the patient likely does have a UTI. Given the history of stent, this will be treated with 1 dose of IV Rocephin here in the emergency department, followed by a ten-day course of Cipro. The patient is not febrile. I do not believe she is septic. She is stable to be discharged home with close follow-up from her primary care physician in addition to urology. She and her significant other are comfortable with this plan, and agree to return with any worsening symptoms. This chart was completed in part utilizing [employer] Speech Voice Recognition software. Attempts were made to minimize the grammatical errors, random word insertions, pronoun errors and incomplete sentences. Any formal questions or concerns about the content, text or information contained within the body of this dictation should be directly addressed to the provider for clarification. Impression Primary Impression: UTI (urinary tract infection) Additional Impression: Flank pain Departure Information Dispostion Home / Self-Care Condition GOOD Prescriptions Ketorolac Tromethamine (TORADOL) 10 Mg Tab 10 MG PO TID for p, #10 TAB Prov: Elise Brush PA-C 06/25/17 Ciprofloxacin Hcl (CIPRO) 500 Mg Tab 500 MG PO BID for 10 Days, #20 TAB Prov: Elise Brush PA-C 06/25/17 Referrals Wero Raya MD, Urology Forms WORK / SCHOOL INSTRUCTIONS, HOME CARE DOCUMENTATION FORM, IMPORTANT VISIT INFORMATION Patient Instructions My [facility] Additional Instructions You had been evaluated in the emergency department for continued flank pain and difficulty with urination. It does appear that you have a urinary tract infection. A CAT scan did not show any new findings. You do have a kidney stone on the left measuring 4 mm. Please take Toradol 1 tab every 8 hours as needed for pain. This may be taken with Tylenol in addition to oxycodone. Please continue oxycodone as prescribed Please take the entire course of antibiotics Please call the urologist office first thing Tuesday morning for a follow-up appointment Please do not hesitate to return to the emergency department with any new, worsening or concerning symptoms; especially, fever or inability to urinate Problem Qualifiers
[2017-06-26 00:09] VITALS: BP 154/72; PULSE 78; O2SAT 98
[2017-06-27] MEDS ORDERED: KETO10TA PO (01:07)
[2017-06-27] MEDS ORDERED: FRS/40 PO (01:07)
[2017-06-27] MEDS ORDERED: POTA20TA16 PO (01:07)
[2017-06-27] MEDS ORDERED: CIPR-255 PO (01:07)
[2017-06-27] MEDS ORDERED: RANI300T2 PO (01:18)
== END 2017-06-26 00:52 | disposition home or self-care (01) ==
LOC: C.EDB 20:40
DX: N39.0 Urinary tract infection, site not specified (principal); E87.6 Hypokalemia; E03.9 Hypothyroidism, unspecified; E11.65 Type 2 diabetes mellitus with hyperglycemia; E11.40 Type 2 diabetes mellitus with diabetic neuropathy, unspecified; K21.9 Gastro-esophageal reflux disease without esophagitis; F31.9 Bipolar disorder, unspecified; Z79.01 Long term (current) use of 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s; Z79.4 Long term (current) use of insulin; I10 Essential (primary) hypertension; N20.1 Calculus of ureter; J45.909 Unspecified asthma, uncomplicated; E66.01 Morbid (severe) obesity due to excess calories; Z68.44 Body mass index [BMI] 60.0-69.9, adult; G47.33 Obstructive sleep apnea (adult) (pediatric); G89.29 Other chronic pain; M47.819 Spondylosis without myelopathy or radiculopathy, site unspecified; F17.200 Nicotine dependence, unspecified, uncomplicated; Z96.0 Presence of urogenital implants; Z90.710 Acquired absence of both cervix and uterus; Z90.49 Acquired absence of other specified parts of digestive tract; Z98.890 Other specified postprocedural states; Z87.81 Personal history of (healed) traumatic fracture; Z91.81 History of falling; Z87.2 Personal history of diseases of the skin and subcutaneous tissue; Z86.718 Personal history of other venous thrombosis and embolism; Z83.3 Family history of diabetes mellitus; Z82.49 Family history of ischemic heart disease and other diseases of the circulatory system; Z83.79 Family history of other diseases of the digestive system; Z83.6 Family history of other diseases of the respiratory system

== ENCOUNTER 2017-06-27 00:24 | Emergency (ER) | payer OTHER ==
[~2017-06-27] VITALS: Ht 161.3 cm; Wt 156.8 kg
[~2017-06-27 00:24] MED LIST changes: +CIPR-255 PO; +KETO10TA PO
[2017-06-27 00:31] VITALS: TEMP 37.1; Ht 161.3 cm; Wt 156.8 kg
[2017-06-27] MEDS ORDERED: POTA20TA16 PO (01:07)
[2017-06-27] MEDS ORDERED: CIPR-255 PO (01:07)
[2017-06-27] MEDS ORDERED: KETO10TA PO (01:07)
[2017-06-27] MEDS ORDERED: FRS/40 PO (01:07)
--- NOTE | 2017-06-27 01:09 | EMERGENCY ROOM VISIT NOTE ---
History Report prepared by [place]: Ramin Rodriguez Under the Supervision of: Dr. Amie Almaguer D.O. First contact with patient: 00:45 Chief Complaint: ILLNESS Stated Complaint: KIDNEY STONES,LOW BLOOD SUGAR History of Present Illness The patient is a 51 year old female who presents to the Emergency Room with complaints of constant hypoglycemia beginning last night. Per significant other , the patient was discharged at 0130 last morning following receiving IV antibiotics. He notes that the patient was also given Dilaudid after being discharged. She reports that the patient slept a majority of the day yesterday following being discharged. She states that when the patient woke up, her blood sugar was low. He notes that the patient ate dinner and still had a low blood sugar level of around 70, increasing from 50 prior to eating. The patient also complains of chills and pain in her kidneys, vagina, and back beginning about an hour ago. She reports that her pain is constant and is in the same places that it has been for the past two months. The patient states that she has a stent in place and did not take her evening medication last night but did take her medication this afternoon. She notes that she typically takes 10mg oxycodone for her pain. States she ran out of her usual pain medication and is due to see her pain management doctor later this week. Per significant other, it was determined that the patient's kidney stone was in the same place last time she had imaging done. He reports that the patient is not seeking pain medications, and will go to another facility if that is believed to be the case. Pt denies headache, change in vision, fevers, chest pain, shortness of breath, nausea, vomiting, diarrhea, pain with urination, and melena. Patient well-known to the emergency department here frequently with various complaints typically related to pain. Patient with previous history of drug- seeking behavior and sees pain management for chronic pain. Patient seen and evaluated here last night, had reassuring labs and a CAT scan of the abdomen and pelvis. Patient was given IV Rocephin and discharged on ciprofloxacin. Urine culture was sent. Source of History: patient, spouse/significant other Onset: last night Position: other (global) Symptom Intensity: blood sugar levels of 50-70 Quality: other (hypoglycemia) Timing: constant Associated Symptoms: + chills, + back pain, No fevers, No headache, No chest pain, No SOB, No nausea, No vomiting, No melena, No diarrhea, No urinary symptoms Note: The patient also complains of pain in her kidneys and vagina. She denies any change in vision. Review of Systems See HPI for pertinent positives & negatives. A total of 10 systems reviewed and were otherwise negative. Past Medical & Surgical Medical Problems: (1) Abdominal pain (2) Abdominal pain (3) Abdominal pain (4) Abdominal wall cellulitis (5) Acute hypokalemia (6) Acute renal failure syndrome (7) Anasarca (8) Ankle pain (9) Asthma (10) Atypical syncope (11) Benign hypertension (12) Bipolar disorder (13) Bowel obstruction (14) Cellulitis (15) CELLULITIS ABDOMEN (16) Cellulitis and abscess of trunk (17) Chronic pain (18) Cirrhosis (19) Contusion of ankle (20) Contusion of periorbital region, left (21) Degenerative joint disease of spine (22) Dehydration (23) Dehydration (24) Depression (25) Diabetes mellitus type 2 (26) DM (diabetes mellitus screen) (27) Drug-seeking behavior (28) DVT (deep venous thrombosis) (29) Exacerbation of chronic back pain (30) Fall (31) Fracture of fourth metatarsal bone of left foot (32) Gastroesophageal reflux disease (33) Hepatic encephalopathy (34) Hernia of abdominal wall (35) Hyperglycemia (36) Hypokalemia (37) Hypokalemia (38) Hypokalemia (39) Hypokalemia (40) Hypothyroid (41) Hypothyroidism (42) Hypoxia (43) Incarcerated ventral hernia (44) Incisional irritation (45) Incisional pain (46) Inguinal lymphadenopathy (47) Insomnia (48) Kidney stone (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 (51) LUMBAGO (52) Migraine (53) Morbid obesity (54) Morbid obesity (55) Morbid obesity (56) Morbid obesity with BMI of 60.0-69.9, adult (57) Obstructive sleep apnea (58) Pain, dental (59) Rectal bleeding (60) Renal colic on right side (61) Renal insufficiency (62) Renal insufficiency (63) SBO (small bowel obstruction) (64) Septic shock (65) Seroma, postoperative (66) Sleep apnea (67) Spinal stenosis (68) Splenomegaly, not elsewhere classified (69) Supraumbilical hernia (70) Weight gain, abnormal Surgical Problems: (1) H/O hernia repair (2) H/O knee surgery (3) H/O: hysterectomy (4) History of cholecystectomy (5) History of urethral stent (6) Hx of appendectomy Social History Problems: (1) Diabetic neuropathy Family History Cancer Diabetes mellitus Gallbladder disease Heart disease Hypertension Lung disease Social History Smoking Status: Former Smoker Alcohol Use: none Drug Use: none Marital Status: in relationship Housing Status: lives with family Occupation Status: unemployed, disabled Current/Historical Medications Scheduled Carvedilol (Coreg), 12.5 MG PO BID Cimetidine (Tagamet), 400 MG PO QPM Ciprofloxacin Hcl (Cipro), 500 MG PO BID Duloxetine HCl (Duloxetine HCl), 60 MG PO BID Escitalopram Oxalate (Escitalopram Oxalate), 20 MG PO QPM Furosemide (Lasix), 40 MG PO QAM Insulin Aspart (Novolog Flexpen), 1 DOSE SC TIDM Insulin Glargine (Lantus Solostar), 77 UNITS SQ BID Levothyroxine Sodium (Synthroid), 200 MCG PO DAILY Ranitidine Hcl (Zantac), 300 MG PO HS Rivaroxaban (Xarelto), 20 MG PO QPM Scheduled PRN Albuterol Hfa (Ventolin Hfa), 2-4 PUFFS INH Q6H PRN for SOB/Wheezing Home O2 Therapy (Oxygen), 3 LITERS NA UD PRN for Shortness of Breath Ketorolac (Toradol), 10 MG PO TID PRN for Pain Oxycodone Ir (Roxicodone Ir), 10 MG PO Q6H PRN for Pain Allergies Coded Allergies: Iodinated Diagnostic Agents (Verified Allergy, Intermediate, hives-PT DENIES SEE NOTE, 06/27/17) Per patient she has had it since without problem (01/25/16 Ioversal given with no pretreats and no mention of rxn; also given Ioversal 11/26/06 with pretreats) Adhesives (Verified Allergy, Mild, RED RASH CAUSED BY PAPER TAPE, 06/27/17) Alprazolam (Verified Allergy, Unknown, MAKES LOOPY,DO AND SAY SILLY THINGS , 06/27/17) Metformin (Verified Allergy, Unknown, HANDS FEET FACE NUMB, 06/27/17) Morphine (Verified Allergy, Unknown, SWELLING LEGS AND FEET, 06/24/17) Vancomycin (Verified Adverse Reaction, Severe, renal failure, required dialysis x 3 MONTHS, 06/27/17) Methylparaben (Verified Adverse Reaction, Intermediate, FLUID RETENTION, ) Oxymorphone (Verified Adverse Reaction, Intermediate, FLUID RETENTION, 06/27) Gabapentin (Verified Adverse Reaction, Mild, Aphasia/Speech impairments, ) Sulfa Antibiotics (Verified Adverse Reaction, Mild, GI SYMPTOMS, 06/27/17) Acetaminophen (Verified Adverse Reaction, Unknown, Liver problems., 06/27/17 ) Codeine (Verified Adverse Reaction, Unknown, UPSET STOMACH, 06/27/17) Pregabalin (Verified Adverse Reaction, Unknown, Aphasia/Speech impairments , 06/27/17) Physical Exam Vital Signs Date Time Temp Pulse Resp B/P (MAP) Pulse Ox O2 Delivery O2 Flow Rate FiO2 06/27/17 04:35 55 20 104/60 92 Room Air 06/27/17 04:15 60 20 122/67 95 06/27/17 01:55 71 20 145/84 94 Room Air 06/27/17 01:45 63 20 134/74 99 Room Air 06/27/17 01:10 70 06/27/17 00:31 37.1 59 18 165/92 99 Room Air Physical Exam GENERAL: alert, well appearing, well nourished, no distress, non-toxic, morbidly obese, tearful. EYE EXAM: normal conjunctiva, PERRL and EOM's grossly intact OROPHARYNX: no exudate, no erythema, lips, buccal mucosa, and tongue normal and mucous membranes are moist NECK: supple, no nuchal rigidity, no adenopathy, non-tender LUNGS: Normal chest wall mechanics, lung sounds decreased, no wheezes, rhonchi, or rales. HEART: no murmurs, S1 normal and S2 normal ABDOMEN: abdomen soft, non-tender, normo-active bowel sounds, no masses, no rebound or guarding. BACK: Back is symmetrical on inspection and there is no deformity, no midline tenderness, no CVA tenderness. SKIN: no rashes and no bruising UPPER EXTREMITIES: upper extremities are grossly normal. LOWER EXTREMITIES: No pitting edema, chronic venostasis changes. NEURO EXAM: Normal sensorium, cranial nerves II-XII grossly intact, normal speech, no gross weakness of arms, no gross weakness of legs. Medical Decision & Procedures Laboratory Results 06/27/17 01:30 Red Blood Count 3.41, Mean Corpuscular Volume 97.9, Mean Corpuscular Hemoglobin 32.0, Mean Corpuscular Hemoglobin Concent 32.6, Mean Platelet Volume 9.0, Neutrophils (%) (Auto) 63.8, Lymphocytes (%) (Auto) 26.5, Monocytes (%) (Auto) 6.7, Eosinophils (%) (Auto) 2.4, Basophils (%) (Auto) 0.3, Neutrophils # (Auto) 4.87, Lymphocytes # (Auto) 2.02, Monocytes # (Auto) 0.51, Eosinophils # (Auto) 0.18, Basophils # (Auto) 0.02 06/27/17 01:30 Test 06/27/17 01:00 06/27/17 01:30 06/27/17 01:38 06/27/17 01:40 Bedside Glucose 78 mg/dl (70-90) White Blood Count 7.62 K/uL (4.8-10.8) Red Blood Count 3.41 M/uL (4.2-5.4) Hemoglobin 10.9 g/dL (12.0-16.0) Hematocrit 33.4 % (37-47) Mean Corpuscular Volume 97.9 fL (80-100) Mean Corpuscular Hemoglobin 32.0 pg (25-34) Mean Corpuscular Hemoglobin Concent 32.6 g/dl (32-36) Platelet Count 134 K/uL (130-400) Mean Platelet Volume 9.0 fL (7.4-10.4) Neutrophils (%) (Auto) 63.8 % Lymphocytes (%) (Auto) 26.5 % Monocytes (%) (Auto) 6.7 % Eosinophils (%) (Auto) 2.4 % Basophils (%) (Auto) 0.3 % Neutrophils # (Auto) 4.87 K/uL (1.4-6.5) Lymphocytes # (Auto) 2.02 K/uL (1.2-3.4) Monocytes # (Auto) 0.51 K/uL (0.11-0.59) Eosinophils # (Auto) 0.18 K/uL (0-0.5) Basophils # (Auto) 0.02 K/uL (0-0.2) RDW Standard Deviation 52.2 fL (36.4-46.3) RDW Coefficient of Variation 14.7 % (11.5-14.5) Immature Granulocyte % (Auto) 0.3 % Immature Granulocyte # (Auto) 0.02 K/uL (0.00-0.02) Anion Gap 3.0 mmol/L (3-11) Est Creatinine Clear Calc Drug Dose 96.5 ml/min Estimated GFR () 73.6 Estimated GFR (Non- 63.5 BUN/Creatinine Ratio 10.0 (10-20) Calcium Level 8.3 mg/dl (8.5-10.1) Magnesium Level 2.0 mg/dl (1.8-2.4) Total Bilirubin 0.7 mg/dl (0.2-1) Aspartate Amino Transf (AST/SGOT) 22 U/L (15-37) Alanine Aminotransferase (ALT/SGPT) 16 U/L (12-78) Alkaline Phosphatase 101 U/L (45-117) Troponin I < 0.015 ng/ml (0-0.045) Total Protein 7.3 gm/dl (6.4-8.2) Albumin 2.6 gm/dl (3.4-5.0) Globulin 4.7 gm/dl (2.5-4.0) Albumin/Globulin Ratio 0.5 (0.9-2) Bedside Lactic Acid Venous 1.12 mmol/L (0.90-1.70) Urine Color YELLOW Urine Appearance CLEAR (CLEAR) Urine pH 8.0 (4.5-7.5) Urine Specific Hurricane 1.005 (1.000-1.030) Urine Protein NEG (NEG) Urine Glucose (UA) NEG (NEG) Urine Ketones NEG (NEG) Urine Occult Blood 3+ (NEG) Urine Nitrite NEG (NEG) Urine Bilirubin NEG (NEG) Urine Urobilinogen NEG (NEG) Urine Leukocyte Esterase MODERATE (NEG) Urine WBC (Auto) 10-30 /hpf (0-5) Urine RBC (Auto) 0-4 /hpf (0-4) Urine Hyaline Casts (Auto) 1-5 /lpf (0-5) Urine Epithelial Cells (Auto) >30 /lpf (0-5) Urine Bacteria (Auto) NEG (NEG) Urine Renal Epithelial Cells /lpf (0-5) Urine Yeast (Auto) BUDDING (NONE PRSENT) Laboratory results per my review. Medications Administered Medications (Trade) Dose Ordered Sig/Nelda Route Start Time Stop Time Status Last Admin Dose Admin Carvedilol (Coreg Tab) 12.5 mg NOW ONCE PO 06/27/17 01:30 06/27/17 01:31 DC 06/27/17 01:50 12.5 MG Rivaroxaban (Xarelto Tab) 20 mg NOW STAT PO 06/27/17 01:25 06/27/17 01:27 DC 06/27/17 01:51 20 MG Oxycodone HCl (Roxicodone Immediate Rel Tab) 10 mg NOW STAT PO 06/27/17 01:25 06/27/17 01:27 DC 06/27/17 01:51 10 MG Cimetidine (Tagamet Tab) 400 mg NOW STAT PO 06/27/17 01:25 06/27/17 01:27 DC 06/27/17 01:50 400 MG Duloxetine HCl (Cymbalta Cap) 60 mg NOW STAT PO 06/27/17 01:25 06/27/17 01:27 DC 06/27/17 01:50 60 MG Escitalopram Oxalate (Lexapro Tab) 20 mg NOW STAT PO 06/27/17 01:25 06/27/17 01:27 DC 06/27/17 01:50 20 MG Metoclopramide HCl (Reglan Inj) 10 mg NOW STAT IV 06/27/17 03:59 06/27/17 04:00 DC 06/27/17 04:17 10 MG Diphenhydramine HCl (Benadryl Inj) 12.5 mg NOW STAT IV 06/27/17 03:59 06/27/17 04:00 DC 06/27/17 04:16 12.5 MG Ketorolac Tromethamine (Toradol Inj) 15 mg NOW STAT IV 06/27/17 03:59 06/27/17 04:01 DC 06/27/17 04:15 15 MG ECG Per My Interpretation Indication: weakness Rate (beats per minute): 61 Rhythm: other (suspect sinus given regularity of QRS however poor quality tracing to verify) Findings: other (Poor quality tracing, moderate baseline artifact, appears to be regular, low voltage, no obvious ST elevation) ED Course 0058: The patient was evaluated in room B6. A complete history and physical exam was performed. 0115: Review of EMR revealed that the patient's urine culture from 06/25/2017 showed greater than 3 organisms. Repeat collection recommended. Prior urine cultures grew out years and E. coli. E. coli mcgill sensitive. 0124: I reevaluated and updated the patient. She confirms evening medication and is eating a turkey sandwich without difficulty. I updated her on her CT and urine culture results from last night. 0125: Lexapro Tab 20mg PO, Duloxetine HCl 60 mg PO,Cimetidine 400mg PO, Oxycodone HCl 10mg O, Rivaroxaban 20mg PO 0130: Carvedilol 12.5mg PO 0357: I rechecked the patient. She is feeling nauseous and will receive some nausea medication. 0359: Toradol Inj 15mg IV, Benadryl Inj 12.5mg IV, Reglan Inj 10mg IV Medical Decision Differential diagnosis: Etiologies such as metabolic, infection, hypo/hyperglycemia, electrolyte abnormalities, cardiac sources, intracerebral event, toxicologic, neurologic, as well as others were entertained. Patient well-known to the emergency room, frequently exhibiting malingering and drug-seeking behavior. Patient with multiple chronic medical problems and comorbidities. Discussed with patient not repeating CAT scan given same pain as last night, and likely exacerbated because she ran out of her chronic pain medication at home. Patient aware she would not be given additional pain medication here. Patient states she has an appointment to see her pain management doctor this week. Patient was given IV Rocephin last night and started on ciprofloxacin orally. Upon review of patient's urine cultures, she previously has grown out E. coli as well as yeast. E. coli was pansensitive on review. Discussed this with patient. Patient given her evening medications which included her usual dose of her OxyIR, and did have significant relief. Patient also using ketorolac daily and was given an additional dose of this also. Patient was stable vital signs throughout, tolerated p.o. at bedside without incident. I have a low suspicion for any additional occult GI or pathology. Patient states she needs to call urology to schedule follow-up appointment including the removal of her ureteral stent. I do not suspect pyelonephritis, bacteremia/sepsis, no evidence of acute renal failure or other loculated abnormalities. Patient tolerating p.o. at bedside and pain improved. Patient with chronic back pain recently exacerbated by kidney stone and stent placement. Patient however has a history of noncompliance regarding both her medications as well as follow-ups with her specialist and family doctor. Patient here tonight complaining of increased pain, I feel most likely related to not having her usual chronic pain medications at home. Patient was here late last night, and so her morning medications were delayed by several hours, patient then slept during the day today because she been awake most of the night , and so the timing of her evening medications was off as well and she felt too much pain and had not yet eaten which likely exacerbated her condition. Patient hemodynamically stable throughout. Patient verbalized understanding of results and was agreeable with plan. Patient was agreeable with repeat labs and no repeat imaging. Discussed with her my concern given numerous and frequent x-rays and CAT scans and cumulative effects of radiation exposure. Medication Reconcilliation Current Medication List: was personally reviewed by me Blood Pressure Screening Patient's blood pressure: Normal blood pressure Blood pressure disposition: Did not require urgent referral Impression Primary Impression: Chronic pain Additional Impressions: Hypoglycemia Weakness Drug-seeking behavior Morbid obesity Scribe Attestation The scribe's documentation has been prepared under my direction and personally reviewed by me in its entirety. I confirm that the note above accurately reflects all work, treatment, procedures, and medical decision making performed by me. Departure Information Dispostion Home / Self-Care Referrals No Doctor, Assigned (PCP) Forms HOME CARE DOCUMENTATION FORM, IMPORTANT VISIT INFORMATION, WORK / SCHOOL INSTRUCTIONS Patient Instructions My [facility] Additional Instructions Please check your blood sugar frequently throughout the day and eat at regular intervals. Please take your regular medications as prescribed. Please drink plenty of water. Please call follow-up with your urologist as soon as possible regarding your known kidney stone and indwelling stent. Please take the antibiotics you were previously prescribed. Your urine culture will take 48 hours to result. If you have any new or worsening symptoms, please return the emergency room. Please discuss with your family doctor possible evaluation by endocrinology for better management of your blood sugar. Problem Qualifiers Primary Impression: Chronic pain Chronic pain type: chronic pain syndrome Qualified Codes: G89.4 - Chronic pain syndrome
[2017-06-27] MEDS ORDERED: RANI300T2 PO (01:18)
[2017-06-27] MEDS ORDERED: RIVAROXABAN 10 MG TAB PO STA (01:25)
[2017-06-27] MEDS ORDERED: CIMETIDINE 400 MG TAB PO STA (01:25)
[2017-06-27] MEDS ORDERED: DULOXETINE HCL 60 MG CAP PO STA (01:25)
[2017-06-27] MEDS ORDERED: OXYCODONE HCL IR 5 MG TAB (IMMEDIATE RELEASE) PO STA (01:25)
[2017-06-27] MEDS ORDERED: ESCITALOPRAM OXALATE 20 MG TAB PO STA (01:25)
[2017-06-27] MEDS ORDERED: CARVEDILOL 12.5 MG TAB PO ONE (01:30)
[2017-06-27 01:46] LABS: BASO % 0.3 %; BASO ABS # 0.02 K/uL (0-0.2); EOS % 2.4 %; EOS ABS # 0.18 K/uL (0-0.5); HEMATOCRIT 33.4 % (37-47); HEMOGLOBIN 10.9 g/dL (12.0-16.0); IG# 0.02 K/uL (0.00-0.02); LYMPH % 26.5 %; LYMPH ABS # 2.02 K/uL (1.2-3.4); MEAN CELL VOLUME 97.9 fL (80-100); MEAN CORPUSCULAR HGB CONC 32.6 g/dl (32-36); MONO % 6.7 %; MONO ABS # 0.51 K/uL (0.11-0.59); NEUT % 63.8 %; NEUT ABS # 4.87 K/uL (1.4-6.5); PLATELET COUNT 134 K/uL (130-400); RED CELL DISTRIBUTION WIDTH CV 14.7 % (11.5-14.5); RED CELL DISTRIBUTION WIDTH SD 52.2 fL (36.4-46.3); WHITE BLOOD COUNT 7.62 K/uL (4.8-10.8)
[2017-06-27 02:03] LABS: ALBUMIN 2.6 gm/dl (3.4-5.0); ALT/SGPT 16 U/L (12-78); BLOOD UREA NITROGEN 10 mg/dl (7-18); CALCIUM 8.3 mg/dl (8.5-10.1); CARBON DIOXIDE 31 mmol/L (21-32); CREATININE 1.01 mg/dl (0.60-1.20); GLUCOSE 87 mg/dl (70-99); SODIUM 139 mmol/L (136-145)
[2017-06-27 02:08] LABS: ALKALINE PHOSPHATASE 101 U/L (45-117); AST/SGOT 22 U/L (15-37); TOTAL PROTEIN 7.3 gm/dl (6.4-8.2)
[2017-06-27] MEDS ORDERED: DiphenhydrAMINE HCL 50 MG/ML VIAL IV STA (03:59)
[2017-06-27] MEDS ORDERED: KETOROLAC TROMETHAMINE 30 MG/ML VIAL IV STA (03:59)
[2017-06-27] MEDS ORDERED: METOCLOPRAMIDE HCL INJ 5 MG/ML 2 ML VIAL IV STA (03:59)
[2017-06-27 04:35] VITALS: BP 104/60; PULSE 55; O2SAT 92
== END 2017-06-27 04:40 | disposition home or self-care (01) ==
LOC: C.EDB 00:26
DX: G89.4 Chronic pain syndrome (principal); E11.649 Type 2 diabetes mellitus with hypoglycemia without coma; R53.1 Weakness; Z72.89 Other problems related to lifestyle; E66.01 Morbid (severe) obesity due to excess calories; N20.0 Calculus of kidney; M54.9 Dorsalgia, unspecified; R68.83 Chills (without fever); F31.9 Bipolar disorder, unspecified; E66.3 Overweight; J45.909 Unspecified asthma, uncomplicated; I10 Essential (primary) hypertension; K21.9 Gastro-esophageal reflux disease without esophagitis; Z86.718 Personal history of other venous thrombosis and embolism; Z87.891 Personal history of nicotine dependence; Z79.01 Long term (current) use of 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s; Z79.4 Long term (current) use of insulin; Z79.899 Other long term (current) drug therapy; Z88.1 Allergy status to other antibiotic agents; Z88.2 Allergy status to sulfonamides; Z88.5 Allergy status to narcotic agent; Z88.6 Allergy status to analgesic agent; Z88.8 Allergy status to other drugs, medicaments and biological substances; Z82.49 Family history of ischemic heart disease and other diseases of the circulatory system; Z83.3 Family history of diabetes mellitus; Z83.6 Family history of other diseases of the respiratory system; Z83.79 Family history of other diseases of the digestive system

== ENCOUNTER 2017-07-09 14:57 | Emergency (ER) | payer OTHER ==
[~2017-07-09] VITALS: Ht 160 cm; Wt 164.9 kg
[~2017-07-09 14:57] MED LIST changes: +FRS/40 PO; -LSX40 PO; -POTA20TA16 PO; +RANI300T2 PO
[2017-07-09 15:01] VITALS: TEMP 36.7; Ht 160 cm; Wt 164.9 kg
[2017-07-09 15:06] VITALS: O2SAT 99
[2017-07-09] MEDS ORDERED: PROMETHAZINE HCL INJ 12.5 MG in SODIUM CHLORIDE 0.9% 50ML 50 ML IV STA (15:25)
[2017-07-09] MEDS ORDERED: KETOROLAC TROMETHAMINE 30 MG/ML VIAL IV STA (15:25)
[2017-07-09] MEDS ORDERED: SODIUM CHLORIDE 0.9% 250ML 250 ML IV STA (15:25)
--- NOTE | 2017-07-09 15:35 | EMERGENCY ROOM VISIT NOTE ---
History First contact with patient: 15:06 Chief Complaint: FLANK PAIN Stated Complaint: KIDNEY/BACK PAIN History of Present Illness The patient is a 51 year old female who presents to the Emergency Room with complaints of severe left flank pain radiating to her left lower abdomen and into her vagina for the last 24 hours. The patient says that the pain comes in waves. She has tried her home oxycodone 10 mg with no relief. The patient has had ongoing gross hematuria for the last several months. She has a known ureteral stone and left stent that was placed in March. She reports seeing her urologist 2 days ago. She also reports being due to have her stent removed on July 21. She denies fever. She does feel nauseated. No vomiting. She was started and finished a course of Cipro on 06/25 for UTI. 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 (22) Dehydration (23) Dehydration (24) Depression (25) Diabetes mellitus type 2 (26) DM (diabetes mellitus screen) (27) Drug-seeking behavior (28) DVT (deep venous thrombosis) (29) Exacerbation of chronic back pain (30) Fall (31) Fracture of fourth metatarsal bone of left foot (32) Gastroesophageal reflux disease (33) Hepatic encephalopathy (34) Hernia of abdominal wall (35) Hyperglycemia (36) Hypokalemia (37) Hypokalemia (38) Hypokalemia (39) Hypokalemia (40) Hypothyroid (41) Hypothyroidism (42) Hypoxia (43) Incarcerated ventral hernia (44) Incisional irritation (45) Incisional pain (46) Inguinal lymphadenopathy (47) Insomnia (48) Kidney stone (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 (50) senior living current use of 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 (51) LUMBAGO (52) Migraine (53) Morbid obesity (54) Morbid obesity (55) Morbid obesity (56) Morbid obesity with BMI of 60.0-69.9, adult (57) Obstructive sleep apnea (58) Pain, dental (59) Rectal bleeding (60) Renal colic on right side (61) Renal insufficiency (62) Renal insufficiency (63) SBO (small bowel obstruction) (64) Septic shock (65) Seroma, postoperative (66) Sleep apnea (67) Spinal stenosis (68) Splenomegaly, not elsewhere classified (69) Supraumbilical hernia (70) Weight gain, abnormal Surgical Problems: (1) H/O hernia repair (2) H/O knee surgery (3) H/O: hysterectomy (4) History of cholecystectomy (5) History of urethral stent (6) Hx of appendectomy Social History Problems: (1) Diabetic neuropathy Family History Cancer Diabetes mellitus Gallbladder disease Heart disease Hypertension Lung disease Social History Smoking Status: Current Every Day Smoker Alcohol Use: none Drug Use: none Marital Status: in relationship Housing Status: lives with family Occupation Status: unemployed, disabled Current/Historical Medications Scheduled Carvedilol (Coreg), 12.5 MG PO BID Cimetidine (Tagamet), 400 MG PO QPM Duloxetine HCl (Duloxetine HCl), 60 MG PO BID Escitalopram Oxalate (Escitalopram Oxalate), 20 MG PO QPM Furosemide (Lasix), 40 MG PO QAM Insulin Aspart (Novolog Flexpen), 1 DOSE SC TIDM Insulin Glargine (Lantus Solostar), 77 UNITS SQ BID Levothyroxine Sodium (Synthroid), 200 MCG PO DAILY Ranitidine Hcl (Zantac), 300 MG PO HS Rivaroxaban (Xarelto), 20 MG PO QPM Scheduled PRN Albuterol Hfa (Ventolin Hfa), 2-4 PUFFS INH Q6H PRN for SOB/Wheezing Home O2 Therapy (Oxygen), 3 LITERS NA UD PRN for Shortness of Breath Ketorolac (Toradol), 10 MG PO TID PRN for Pain Oxycodone Ir (Roxicodone Ir), 10 MG PO Q6H PRN for Pain Physical Exam Vital Signs Date Time Temp Pulse Resp B/P (MAP) Pulse Ox O2 Delivery O2 Flow Rate FiO2 07/09/17 20:24 66 20 150/91 96 07/09/17 19:14 60 20 132/78 98 Room Air 07/09/17 17:49 51 20 153/64 97 Room Air 07/09/17 17:05 60 20 131/76 99 Room Air 07/09/17 15:13 70 07/09/17 15:06 99 Room Air 07/09/17 15:01 36.7 81 20 154/84 100 Room Air Physical Exam VITALS: Vitals are noted on the nurse's note and reviewed by myself. Vital signs stable. GENERAL: 51-year-old female, morbidly obese, appears older than stated age, SKIN: The skin was without rashes, erythema, edema, or bruising. HEAD: Normocephalic atraumatic. MOUTH: Mucous membranes slightly dry NECK: Supple without nuchal rigidity. No lymphadenopathy. Cervical spine is nontender. No JVD. HEART: Regular rate and rhythm without murmurs gallops or rubs. LUNGS: Clear to auscultation bilaterally without wheezes, rales or rhonchi. No accessory muscle use. ABDOMEN: Positive bowel sounds x 4.Soft, mild tenderness to palpation in the left lower quadrant, without organomegaly. No guarding or rebound tenderness. Subjective left-sided CVA tenderness noted MUSCULOSKELETAL: No muscle atrophy, erythema, or edema noted. Strength 5/5 throughout. NEURO: Patient was alert and oriented to person place and time. Normal sensation to touch. No focal neurological deficits. Medical Decision & Procedures ER Provider Diagnostic Interpretation: renal us IMPRESSION: Left ureteral stent in good position. No evidence for renal hydronephrosis. No change from the prior study. The above report was generated using voice recognition software. It may contain grammatical, syntax or spelling errors. Electronically signed by: Will Holder M.D. 07/09/2017 4:39 PM Dictated Date/Time: 07/09/2017 4:38 PM The status of this report is Signed. Draft = Not yet reviewed or approved by Radiologist. Signed = Reviewed and approved by Radiologist. <AttendingPhy></AttendingPhy> <FamilyPhy>Agustina Cummings M.D.</FamilyPhy> < PrimaryPhy>Agustina Cummings M.D.</PrimaryPhy> <UnitNumber>[id number]</UnitNumber> < VisitNumber>[id number]</VisitNumber> <PatientName>EMANUEL MOSS</PatientName> <DateOfBirth>1965</DateOfBirth> <Location>[facility]</Location> <ServiceDate></ServiceDate> <MNE>ESINDI</MNE> <OrderingPhy>Elise Brush PA-C</ OrderingPhy> <OrderingPhyMNE>f rep ord dr finley</OrderingPhyMNE> <DictatingPhyMNE> f rep dict dr finley</DictatingPhyMNE> <CCListMNE>f rep ct mne</CCListMNE> < AdmittingPhyMNE>f pt admit dr finley</AdmittingPhyMNE> <AttendingPhyMNE>f pt attend dr finley</AttendingPhyMNE> <ConsultingPhyMNE>f pt consult dr finley</ConsultingPhyMNE> <FamilyPhyMNE>f pt fam dr finley</FamilyPhyMNE> <OtherPhyMNE>f pt other dr finley</OtherPhyMNE> < PrimaryPhyMNE>f pt prim care dr finley</PrimaryPhyMNE> <ReferringPhyMNE>f pt referring dr finley</ReferringPhyMNE> Laboratory Results 07/09/17 15:40 Red Blood Count 3.47, Mean Corpuscular Volume 98.8, Mean Corpuscular Hemoglobin 31.4, Mean Corpuscular Hemoglobin Concent 31.8, Mean Platelet Volume 8.8, Neutrophils (%) (Auto) 65.1, Lymphocytes (%) (Auto) 24.8, Monocytes (%) (Auto) 7.0, Eosinophils (%) (Auto) 2.3, Basophils (%) (Auto) 0.4, Neutrophils # (Auto) 3.66, Lymphocytes # (Auto) 1.39, Monocytes # (Auto) 0.39, Eosinophils # (Auto) 0.13, Basophils # (Auto) 0.02 07/09/17 15:40 Test 07/09/17 15:25 07/09/17 15:40 Urine Color RED Urine Appearance TURBID (CLEAR) Urine pH 6.5 (4.5-7.5) Urine Specific [place] 1.020 (1.000-1.030) Urine Protein 2+ (NEG) Urine Glucose (UA) TRACE (NEG) Urine Ketones NEG (NEG) Urine Occult Blood 3+ (NEG) Urine Nitrite NEG (NEG) Urine Bilirubin NEG (NEG) Urine Urobilinogen NEG (NEG) Urine Leukocyte Esterase MODERATE (NEG) Urine WBC (Auto) >30 /hpf (0-5) Urine RBC (Auto) >30 /hpf (0-4) Urine Hyaline Casts (Auto) 1-5 /lpf (0-5) Urine Epithelial Cells (Auto) >30 /lpf (0-5) Urine Bacteria (Auto) 1+ (NEG) Urine Pathogenic Casts /lpf (0) Urine Yeast (Auto) BUDDING (NONE PRSENT) White Blood Count 5.61 K/uL (4.8-10.8) Red Blood Count 3.47 M/uL (4.2-5.4) Hemoglobin 10.9 g/dL (12.0-16.0) Hematocrit 34.3 % (37-47) Mean Corpuscular Volume 98.8 fL (80-100) Mean Corpuscular Hemoglobin 31.4 pg (25-34) Mean Corpuscular Hemoglobin Concent 31.8 g/dl (32-36) Platelet Count 116 K/uL (130-400) Mean Platelet Volume 8.8 fL (7.4-10.4) Neutrophils (%) (Auto) 65.1 % Lymphocytes (%) (Auto) 24.8 % Monocytes (%) (Auto) 7.0 % Eosinophils (%) (Auto) 2.3 % Basophils (%) (Auto) 0.4 % Neutrophils # (Auto) 3.66 K/uL (1.4-6.5) Lymphocytes # (Auto) 1.39 K/uL (1.2-3.4) Monocytes # (Auto) 0.39 K/uL (0.11-0.59) Eosinophils # (Auto) 0.13 K/uL (0-0.5) Basophils # (Auto) 0.02 K/uL (0-0.2) RDW Standard Deviation 56.1 fL (36.4-46.3) RDW Coefficient of Variation 15.7 % (11.5-14.5) Immature Granulocyte % (Auto) 0.4 % Immature Granulocyte # (Auto) 0.02 K/uL (0.00-0.02) Anion Gap 5.0 mmol/L (3-11) Est Creatinine Clear Calc Drug Dose 102.1 ml/min Estimated GFR () 76.3 Estimated GFR (Non- 65.9 BUN/Creatinine Ratio 9.1 (10-20) Calcium Level 8.0 mg/dl (8.5-10.1) Total Bilirubin 0.9 mg/dl (0.2-1) Aspartate Amino Transf (AST/SGOT) 30 U/L (15-37) Alanine Aminotransferase (ALT/SGPT) 23 U/L (12-78) Alkaline Phosphatase 116 U/L (45-117) Total Protein 7.9 gm/dl (6.4-8.2) Albumin 2.9 gm/dl (3.4-5.0) Globulin 5.0 gm/dl (2.5-4.0) Albumin/Globulin Ratio 0.6 (0.9-2) Medications Administered Medications (Trade) Dose Ordered Sig/Nelda Route Start Time Stop Time Status Last Admin Dose Admin Promethazine HCl 12.5 mg/Sodium Chloride 50.5 ml @ 204 mls/hr NOW STAT IV 07/09/17 15:25 07/09/17 15:39 DC 07/09/17 15:48 204 MLS/HR Ketorolac Tromethamine (Toradol Inj) 30 mg NOW STAT IV 07/09/17 15:25 07/09/17 15:29 DC 07/09/17 15:48 30 MG Sodium Chloride 250 ml @ 999 mls/hr Q16M STAT IV 07/09/17 15:25 07/09/17 15:40 DC 07/09/17 15:48 999 MLS/HR Hydromorphone HCl (Dilaudid Inj) 1 mg ONE ONCE IV 07/09/17 16:15 07/09/17 16:16 DC 07/09/17 17:03 1 MG Hydromorphone HCl (Dilaudid Inj) 1 mg ONE ONCE IV 07/09/17 19:00 07/09/17 19:01 DC 07/09/17 19:14 1 MG Promethazine HCl (Phenergan Tab) 25 mg NOW ONCE PO 07/09/17 19:00 07/09/17 19:01 DC 07/09/17 19:14 25 MG ED Course Patient was seen and examined Vital signs including blood pressure were reviewed medications list was verified with patient Labs were obtained, and a saline lock was established The patient was medicated with Toradol 30 mg IV and Phenergan 12.5 mg IV. She was hydrated with 250 cc of normal saline. Imaging was performed and reviewed The case was discussed with my supervising physician who also evaluated the patient Upon reevaluation, the patient was still in pain. She required 2 doses of Dilaudid 1 mg IV. The case was discussed with Dr. charlton from urology. The patient was reassessed. She was more comfortable. She did still complain of nausea. She was given Phenergan 25 mg by mouth. I discussed the results thoroughly with the patient. She voiced understanding, and was comfortable being discharged home. I reviewed discharge instructions the patient. They voiced understanding and had no further questions. Medical Decision Differential diagnosis: Chronic pain, drug-seeking behavior, noncompliance, UTI , pyelonephritis, sepsis, ureteral stone, among other This patient is a 51-year-old female, well-known to the emergency department that returns complaining of left-sided flank pain. The a left-sided ureteral stent that was placed several months ago. She has a known left ureteral stone. The patient had a CAT scan on 06/25. The location of the stone was unchanged. The patient reports seeing her urologist 2 days ago, and is also reportedly due to have her stent removed on July 21. The patient's urine cultures were reviewed. On 06/25 she grew out more than 3 organisms with a catheterized specimen. This was repeated on 06/27-again greater than 3 organisms. Today, an ultrasound was performed. There is no hydronephrosis. The stent was in good placement. The case was discussed with my supervising physician in addition to the urologist ribbon weaver. Dr. Charlton did not recommend antibiotics at this time as the patient was afebrile with no leukocytosis. A urine culture was sent. The patient had good symptomatic relief in the emergency department. I am concerned about drug-seeking and malingering behavior. She was not provided any prescriptions. She will continue her home medications as prescribed, follow up with urology in addition to her primary care physician. She agrees to return with worsening symptoms such as fever This chart was completed in part utilizing [employer] Speech Voice Recognition software. Attempts were made to minimize the grammatical errors, random word insertions, pronoun errors and incomplete sentences. Any formal questions or concerns about the content, text or information contained within the body of this dictation should be directly addressed to the provider for clarification. Medication Reconcilliation Current Medication List: was personally reviewed by me Blood Pressure Screening Patient's blood pressure: Elevated blood pressure Blood pressure disposition: Did not require urgent referral Consults Consulting Physician: Dr. Charlton Impression Primary Impression: Left flank pain Departure Information Dispostion Home / Self-Care Condition GOOD Referrals Agustina Cummings M.D. (PCP) Gary Charlton M.D. Patient Instructions My [facility] Additional Instructions You have been evaluated in the emergency department for flank pain. This is likely due to the stone. An ultrasound reveals no change in appearance from prior imaging. Please try to stay well hydrated. Increase fluids over the next several days. Please continue pain medications as prescribed. Please follow-up as soon as possible with your primary care physician in addition to your urologist. Please return to the emergency department with any new or concerning symptoms. It was a pleasure participating in your care.
[2017-07-09 15:52] LABS: BASO % 0.4 %; BASO ABS # 0.02 K/uL (0-0.2); EOS % 2.3 %; EOS ABS # 0.13 K/uL (0-0.5); HEMATOCRIT 34.3 % (37-47); HEMOGLOBIN 10.9 g/dL (12.0-16.0); IG# 0.02 K/uL (0.00-0.02); LYMPH % 24.8 %; LYMPH ABS # 1.39 K/uL (1.2-3.4); MEAN CELL VOLUME 98.8 fL (80-100); MEAN CORPUSCULAR HEMOGLOBIN 31.4 pg (25-34); MEAN CORPUSCULAR HGB CONC 31.8 g/dl (32-36); MEAN PLATELET VOLUME 8.8 fL (7.4-10.4); MONO ABS # 0.39 K/uL (0.11-0.59); NEUT % 65.1 %; NEUT ABS # 3.66 K/uL (1.4-6.5); PLATELET COUNT 116 K/uL (130-400); RED CELL DISTRIBUTION WIDTH CV 15.7 % (11.5-14.5); RED CELL DISTRIBUTION WIDTH SD 56.1 fL (36.4-46.3); WHITE BLOOD COUNT 5.61 K/uL (4.8-10.8)
[2017-07-09] MEDS ORDERED: HYDROmorphone INJ 1 MG/ML SYR IV ONE ×2 (16:15→19:00)
[2017-07-09 16:18] LABS: ALBUMIN 2.9 gm/dl (3.4-5.0); CREATININE 0.98 mg/dl (0.60-1.20); POTASSIUM 3.3 mmol/L (3.5-5.1)
[2017-07-09 16:21] LABS: TOTAL PROTEIN 7.9 gm/dl (6.4-8.2)
--- NOTE | 2017-07-09 16:41 | DIAGNOSTIC IMAGING REPORT ---
(RENAL)RETROPERITON COMP HISTORY: Pain L flank pain has stent and hx stone COMPARISON: 06/04/2017 FINDINGS: Right kidney: Maximum dimension 12.5 cm. No evidence for hydronephrosis. Normal corticomedullary differentiation and cortical thickness. Left kidney: Maximum dimension 12.4 cm. No evidence for hydronephrosis. A stent is in position. Normal corticomedullary differentiation and cortical thickness. Bladder: No bladder wall thickening. The bilateral ureteral jets were identified. IMPRESSION: Left ureteral stent in good position. No evidence for renal hydronephrosis. No change from the prior study. The above report was generated using voice recognition software. It may contain grammatical, syntax or spelling errors. Electronically signed by: Will Holder M.D. 07/09/2017 4:39 PM Dictated Date/Time: 07/09/2017 4:38 PM
[2017-07-09] MEDS ORDERED: HYDROmorphone INJ 1 MG/ML SYR IM ONE (18:45)
[2017-07-09] MEDS ORDERED: PROMETHAZINE HCL 25 MG TAB PO ONE (19:00)
[2017-07-09 20:24] VITALS: BP 150/91; PULSE 66; O2SAT 96
== END 2017-07-09 20:25 | disposition home or self-care (01) ==
LOC: EDBD 14:57 → C.EDB 15:01
DX: N20.1 Calculus of ureter (principal); J45.909 Unspecified asthma, uncomplicated; I10 Essential (primary) hypertension; G89.29 Other chronic pain; F32.9 Major depressive disorder, single episode, unspecified; M47.9 Spondylosis, unspecified; K21.9 Gastro-esophageal reflux disease without esophagitis; E03.9 Hypothyroidism, unspecified; E66.01 Morbid (severe) obesity due to excess calories; Z68.44 Body mass index [BMI] 60.0-69.9, adult; E11.40 Type 2 diabetes mellitus with diabetic neuropathy, unspecified; Z79.4 Long term (current) use of insulin; Z79.01 Long term (current) use of 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s; F17.200 Nicotine dependence, unspecified, uncomplicated; Z76.5 Malingerer [conscious simulation]; Z96.0 Presence of urogenital implants; Z91.81 History of falling; Z90.710 Acquired absence of both cervix and uterus; Z90.49 Acquired absence of other specified parts of digestive tract; Z87.81 Personal history of (healed) traumatic fracture; Z86.718 Personal history of other venous thrombosis and embolism; Z87.442 Personal history of urinary calculi; Z83.3 Family history of diabetes mellitus; Z82.49 Family history of ischemic heart disease and other diseases of the circulatory system; Z83.79 Family history of other diseases of the digestive system; Z83.6 Family history of other diseases of the respiratory system

== ENCOUNTER 2017-07-21 10:58 | Emergency (ER) | payer OTHER ==
[~2017-07-21] VITALS: Ht 160 cm; Wt 157.0 kg
[~2017-07-21 10:58] MED LIST changes: -ATROPINE SULFATE 0.1 MG/ML 5ML SYR IV PRN; -CARV12.52 PO; -CYM60 PO; -Cysto-Conray II 17.2% 250ML BOTTLE ONE; -DEXAMETHASONE SOD INJ 4 MG/ML VIAL ONE; -EpHEDrine SULFATE INJ 50 MG/ML AMP IV PRN; -FENTANYL CITRATE INJ 50 MCG/1 ML 2 ML VIAL IV PRN; -FENTANYL CITRATE INJ 50 MCG/1 ML 2 ML VIAL ONE; -FRS/40 PO; -GENTAMICIN INJ 160 MG in DEXTROSE 5% 100ML 100 ML IV SCH; -GLYCOPYRROLATE INJ 0.2 MG/ML VIAL ONE; -HYDROmorphone INJ 0.5 MG/0.5 ML SYR IV PRN; -INSDGIPEN SQ; -LABETALOL HCL IV 5 MG/ML 20ML IV PRN; -LACTATED RINGER'S 1000ML 1,000 ML IV SCH; -LIDOCAINE HCL 2% 2 ML VIAL (20MG/ML) ONE; -LXP/20 PO; -MIDAZOLAM HCL 1 MG/ML 2ML VIAL ONE; -NEOSTIGMINE METHYLSULFATE 5 MG/5 ML SYR ONE; -NVLGI/PEN SC; -ONDANSETRON INJ 2 MG/ML 2 ML VIAL IV PRN; -ONDANSETRON INJ 2 MG/ML 2 ML VIAL ONE; -OXGN; -OXYCODONE/ACETAMINOPHEN 5-325 TAB ONE; -OXYCODONE/ACETAMINOPHEN 5-325 TAB PO PRN; -PHENAZOPYRIDINE HCL 200 MG TAB PO PRN; -PHENYLEPHRINE 100MCG/ML 5ML SYR IV PRN; -PHENYLEPHRINE 100MCG/ML 5ML SYR ONE; -PROMETHAZINE HCL INJ 12.5 MG in SODIUM CHLORIDE 0.9% 50ML 50 ML IV PRN; -PROPOFOL IV EMULSION 10 MG/ML 20 ML VIAL IV ONE; -RANI300T PO; -SUCCINYLCHOLINE 100MG/5ML SYR IV ONE; -SYN200 PO; -VNTHFA/IN INH; -XRL20 PO; -[UNRECOGNIZED DRUG - CODE] PO
[2017-07-21 11:11] VITALS: BP 116/55; PULSE 61; TEMP 37; O2SAT 92; Ht 160 cm; Wt 157.0 kg
--- NOTE | 2017-07-21 12:30 | EMERGENCY ROOM VISIT NOTE ---
History Report prepared by [place]: Dorian Nicholson Under the Supervision of: Dr. Graham Stovall M.D. First contact with patient: 12:06 Chief Complaint: PAIN (GENERALIZED) Stated Complaint: IN LOT OF PAIN S/P KINDEY SURG History of Present Illness The patient is a 51 year old female who presents to the Emergency Room with complaints of worsening generalized pain after having a left kidney stone procedure done around 5 hours ago. The patient had the procedure done this morning with Dr. Raya. The patient had specifically a left ureteral stone scope, laser, and stent exchange. Ever since then, the patient has been complaining of worsening pain in her back, abdomen, bladder, and vagina, with associated nausea. The patient was noted to have looked good by Dr. Raya after the procedure, and was told to call pain management. Per the patient's , the patient has been "writhing in pain" and needs help. Source of History: patient, spouse/significant other Onset: After procedure done around 5 hours ago Position: other (global) Symptom Intensity: "writhing" in pain Quality: other (generalized pain) Timing: worsening Associated Symptoms: + nausea, + abdominal pain, + back pain Note: Associated symptoms: Vaginal pain. Review of Systems See HPI for pertinent positives and negatives. A total of ten systems were reviewed and were otherwise negative. Past Medical & Surgical Medical Problems: (1) Abdominal pain (2) Abdominal pain (3) Abdominal pain (4) Abdominal wall cellulitis (5) Acute hypokalemia (6) Acute renal failure syndrome (7) Anasarca (8) Ankle pain (9) Asthma (10) Atypical syncope (11) Benign hypertension (12) Bipolar disorder (13) Bowel obstruction (14) Cellulitis (15) CELLULITIS ABDOMEN (16) Cellulitis and abscess of trunk (17) Chronic pain (18) Cirrhosis (19) Contusion of ankle (20) Contusion of periorbital region, left (21) Degenerative joint disease of spine (22) Dehydration (23) Dehydration (24) Depression (25) Diabetes mellitus type 2 (26) DM (diabetes mellitus screen) (27) Drug-seeking behavior (28) DVT (deep venous thrombosis) (29) Exacerbation of chronic back pain (30) Fall (31) Fracture of fourth metatarsal bone of left foot (32) Gastroesophageal reflux disease (33) Hepatic encephalopathy (34) Hernia of abdominal wall (35) Hyperglycemia (36) Hypokalemia (37) Hypokalemia (38) Hypokalemia (39) Hypokalemia (40) Hypothyroid (41) Hypothyroidism (42) Hypoxia (43) Incarcerated ventral hernia (44) Incisional irritation (45) Incisional pain (46) Inguinal lymphadenopathy (47) Insomnia (48) Kidney stone (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 (50) alf current use of 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 (51) LUMBAGO (52) Migraine (53) Morbid obesity (54) Morbid obesity (55) Morbid obesity (56) Morbid obesity with BMI of 60.0-69.9, adult (57) Obstructive sleep apnea (58) Pain, dental (59) Rectal bleeding (60) Renal colic on right side (61) Renal insufficiency (62) Renal insufficiency (63) SBO (small bowel obstruction) (64) Septic shock (65) Seroma, postoperative (66) Sleep apnea (67) Spinal stenosis (68) Splenomegaly, not elsewhere classified (69) Supraumbilical hernia (70) Weight gain, abnormal Surgical Problems: (1) H/O hernia repair (2) H/O knee surgery (3) H/O: hysterectomy (4) History of cholecystectomy (5) History of urethral stent (6) Hx of appendectomy Social History Problems: (1) Diabetic neuropathy Family History Cancer Diabetes mellitus Gallbladder disease Heart disease Hypertension Lung disease Social History Smoking Status: Current Every Day Smoker Alcohol Use: none Drug Use: none Marital Status: in relationship Housing Status: lives with family Occupation Status: unemployed, disabled Current/Historical Medications Scheduled Carvedilol (Coreg), 12.5 MG PO BID Cimetidine (Tagamet), 300 MG PO QPM Duloxetine HCl (Duloxetine HCl), 60 MG PO BID Escitalopram Oxalate (Escitalopram Oxalate), 20 MG PO QPM Furosemide (Lasix), 40 MG PO QAM Insulin Aspart (Novolog Flexpen), 1 DOSE SC TIDM Insulin Glargine (Lantus Solostar), 77 UNITS SQ BID Levothyroxine Sodium (Synthroid), 200 MCG PO QAM Ranitidine Hcl (Zantac), 300 MG PO HS Rivaroxaban (Xarelto), 20 MG PO QPM Scheduled PRN Albuterol Hfa (Ventolin Hfa), 2-4 PUFFS INH Q6H PRN for SOB/Wheezing Home O2 Therapy (Oxygen), 3 LITERS NA UD PRN for Shortness of Breath Allergies Coded Allergies: Iodinated Diagnostic Agents (Verified Allergy, Intermediate, hives-PT DENIES SEE NOTE, 07/21/17) Per patient she has had it since without problem (01/25/16 Ioversal given with no pretreats and no mention of rxn; also given Ioversal 11/26/06 with pretreats) Adhesives (Verified Allergy, Mild, RED RASH CAUSED BY PAPER TAPE, 07/21/17) Alprazolam (Verified Allergy, Unknown, MAKES LOOPY,DO AND SAY SILLY THINGS , 07/21/17) Haloperidol (Verified Allergy, Unknown, nervous and anxious, 07/21/17) Metformin (Verified Allergy, Unknown, HANDS FEET FACE NUMB, 07/21/17) Morphine (Verified Allergy, Unknown, SWELLING LEGS AND FEET, 07/21/17) Vancomycin (Verified Adverse Reaction, Severe, renal failure, required dialysis x 3 MONTHS, 07/21/17) Methylparaben (Verified Adverse Reaction, Intermediate, FLUID RETENTION, ) Oxymorphone (Verified Adverse Reaction, Intermediate, FLUID RETENTION, ) Gabapentin (Verified Adverse Reaction, Mild, Aphasia/Speech impairments, ) Sulfa Antibiotics (Verified Adverse Reaction, Mild, GI SYMPTOMS, 07/21/17) Acetaminophen (Verified Adverse Reaction, Unknown, Liver problems., ) Codeine (Verified Adverse Reaction, Unknown, UPSET STOMACH, 07/21/17) Pregabalin (Verified Adverse Reaction, Unknown, Aphasia/Speech impairments , 07/21/17) Uncoded Allergies: PAPER TAPE (Allergy, Severe, rash, 07/21/17) Physical Exam Vital Signs Date Time Temp Pulse Resp B/P (MAP) Pulse Ox O2 Delivery O2 Flow Rate FiO2 07/21/17 11:11 37.0 61 20 116/55 92 Room Air Physical Exam Physical Exam GENERAL: She is oriented to person, place, and time. She appears well- developed and well-nourished. She does not appear distressed. ____ HENT: Exam performed. Head: Normocephalic and atraumatic. Right Ear: External ear normal. No mastoid tenderness. Left Ear: External ear normal. No mastoid tenderness. Mouth/Throat: The oropharynx is clear and moist. No trismus in the jaw. No dental abscesses or uvula swelling. No oropharyngeal exudate or tonsillar abscesses. ____ EYES: Conjunctivae and EOM are normal. Pupils are equal, round, and reactive to light. Right eye exhibits no discharge. Left eye exhibits no discharge. No scleral icterus. ____ NECK: Normal range of motion. Neck supple. No JVD present. No spinous process tenderness present. No carotid bruit present. No rigidity. No tracheal deviation and normal range of motion present. No Brudzinski's sign and no Kernig 's sign noted. ____ CV: Normal rate, regular rhythm, normal heart sounds and intact distal pulses. There is no peripheral edema. Palpable radial pulses bue. ____ PULM/CHEST: Effort normal and breath sounds normal. No respiratory distress. No stridor. She has no wheezes. She has no rales. Chest Wall: She exhibits no tenderness. ____ ABD: The abdomen is obese. Bowel sounds are normal. She has no distension. No mass is present. There is no tenderness. There is no rebound, no guarding, no Amaya's sign and no tenderness at McBurney's point. Rovsig negative MUSC/SKEL: Normal range of motion. There is no peripheral edema, tenderness or deformity. LYMPH: No cervical adenopathy. ____ NEURO: She is alert and oriented to person, place, and time. She has normal strength. No cranial nerve deficit or sensory deficit. Coordination and gait normal. GCS eye subscore is 4. GCS verbal subscore is 5. GCS motor subscore is 6. Cerebellar tests wnl. ____ SKIN: Skin is warm and dry. She is not diaphoretic. ____ PSYCH: She has a normal mood and affect. She behavior is normal. Judgment and thought content normal. ____ Medical Decision & Procedures ER Provider Diagnostic Interpretation: X-ray: Per my interpretation, radiologist review. ABDOMEN 2VIEW W/PA CHEST RTN CLINICAL HISTORY: pain s/p renal stent insertion COMPARISON STUDY: 06/24/2017 FINDINGS: Moderate stable cardiomegaly. Lungs are considered generally clear. Evidence for left ureteral stent placement. Nonobstructive bowel pattern. Degenerative change lumbar spine. IMPRESSION: 1. No acute process the chest. 2. Left ureteral stent in good position. 3. No evidence for free air or bowel obstructive change. The above report was generated using voice recognition software. It may contain grammatical, syntax or spelling errors. Electronically signed by: Will Holder M.D. 07/21/2017 1:30 PM Dictated Date/Time: 07/21/2017 1:29 PM Medications Administered Medications (Trade) Dose Ordered Sig/Nelda Route Start Time Stop Time Status Last Admin Dose Admin Ketorolac Tromethamine (Toradol Inj) 15 mg NOW STAT IM 07/21/17 13:37 07/21/17 13:39 DC 07/21/17 13:58 15 MG ED Course 1219: The patient was evaluated in room B3B. A complete history and physical exam was performed. 1222: I paged Dr. Raya of [facility] urology. 1224: I discussed the patient with Cristel Lawrence [facility] urology - they were able to access the patient's records. The patient had 120 Oxycodone filled on June 30 and June 02. She had 15 Tramadol recently prescribed to her. She says that we need to do a KUB, and if that is normal, the patient can be discharged home. 1337: Toradol Inj 15 mg IM. 1339: I reevaluated the patient and her vital signs are stable. X-ray shows ureteral stent in place. I had a long discussion with the patient regarding her opioid usage, and explained to her that I will not be able to fill any opioid prescriptions here in the ER. I did offer her an injection of Toralac which she agrees to. She will follow-up with her PCP and pain management. DISCHARGE - Plan of care discussed with patient and questions answered. The patient was given both verbal and printed discharge instructions. The patient verbalized understanding and ability to comply. The patient is to seek outpatient follow up as noted in the discharge instructions. The patient verbalized understanding and ability to comply. The patient is discharged in stable condition. The patient was instructed to return for worsening symptoms. Medical Decision 1224: I discussed the patient with Cristel Lawrence [facility] urology - they were able to access the patient's records. The patient had 120 Oxycodone filled on June 30 and June 02. She had 15 Tramadol recently prescribed to her. She says that we need to do a KUB, and if that is normal, the patient can be discharged home. 1339: I reevaluated the patient and her vital signs are stable. X-ray shows ureteral stent in place. I had a long discussion with the patient regarding her opioid usage, and explained to her that I will not be able to fill any opioid prescriptions here in the ER. I did offer her an injection of Toralac which she agrees to. She will follow-up with her PCP and pain management. DISCHARGE - Plan of care discussed with patient and questions answered. The patient was given both verbal and printed discharge instructions. The patient verbalized understanding and ability to comply. The patient is to seek outpatient follow up as noted in the discharge instructions. The patient verbalized understanding and ability to comply. The patient is discharged in stable condition. The patient was instructed to return for worsening symptoms. Medication Reconcilliation Current Medication List: was personally reviewed by me Blood Pressure Screening Patient's blood pressure: Normal blood pressure Consults Time Called: 1222 Consulting Physician: [facility] u[facility] Returned Call: 1224 I discussed the patient with Cristel [facility] urology - they were able to access the patient's records. The patient had 120 Oxycodone filled on June 30 and June 02. She had 15 Tramadol recently prescribed to her. She says that we need to do a KUB, and if that is normal, the patient can be discharged home. Impression Primary Impression: Post-operative pain Scribe Attestation The scribe's documentation has been prepared under my direction and personally reviewed by me in its entirety. I confirm that the note above accurately reflects all work, treatment, procedures, and medical decision making performed by me. The chart was completed utilizing [employer] voice recognition software. Grammatical errors, random word insertions, pronoun errors, and incomplete sentences are an occasional consequence of this system due to software limitations, ambient noise, and hardware issues. Any formal questions or concerns about the content, text, or information contained within the body of this dictation should be directly addressed to the physician for clarification. Departure Information Dispostion Home / Self-Care Referrals Agustina Cummings M.D. (PCP) Forms HOME CARE DOCUMENTATION FORM, IMPORTANT VISIT INFORMATION, WORK / SCHOOL INSTRUCTIONS Patient Instructions My [facility], Stents Ureteral Additional Instructions Contact your pain management doctor for follow-up. Follow-up with Dr. Wero Raya in 1-7 days.
--- NOTE | 2017-07-21 13:32 | DIAGNOSTIC IMAGING REPORT ---
ABDOMEN 2VIEW W/PA CHEST RTN CLINICAL HISTORY: pain s/p renal stent insertion COMPARISON STUDY: 06/24/2017 FINDINGS: Moderate stable cardiomegaly. Lungs are considered generally clear. Evidence for left ureteral stent placement. Nonobstructive bowel pattern. Degenerative change lumbar spine. IMPRESSION: 1. No acute process the chest. 2. Left ureteral stent in good position. 3. No evidence for free air or bowel obstructive change. The above report was generated using voice recognition software. It may contain grammatical, syntax or spelling errors. Electronically signed by: Will Holder M.D. 07/21/2017 1:30 PM Dictated Date/Time: 07/21/2017 1:29 PM
[2017-07-21] MEDS ORDERED: KETOROLAC TROMETHAMINE 60 MG/2 ML VIAL IM STA (13:37)
[2017-07-22] MEDS ORDERED: FRS/40 PO ×2 (01:07)
[2017-07-22] MEDS ORDERED: XRL20 PO ×2 (16:47)
[2017-07-22] MEDS ORDERED: LXP/20 PO ×2 (19:07)
[2017-07-22] MEDS ORDERED: CYM60 PO ×2 (19:07)
[2017-07-22] MEDS ORDERED: INSDGIPEN SQ ×2 (19:09)
[2017-07-22] MEDS ORDERED: CARV12.52 PO ×2 (19:15)
[2017-07-22] MEDS ORDERED: SYN200 PO (20:02)
[2017-07-22] MEDS ORDERED: NVLGI/PEN SC ×2 (20:31)
[2017-07-22] MEDS ORDERED: OXGN ×2 (20:37)
[2017-07-22] MEDS ORDERED: VNTHFA/IN INH ×2 (21:13)
[2017-07-22] MEDS ORDERED: RANI300T PO (22:52)
[2017-07-22] MEDS ORDERED: [UNRECOGNIZED DRUG - CODE] PO (22:52)
== END 2017-07-21 13:56 | disposition home or self-care (01) ==
LOC: C.EDB 11:00
DX: R52 Pain, unspecified (principal); E87.6 Hypokalemia; J45.909 Unspecified asthma, uncomplicated; R55 Syncope and collapse; I10 Essential (primary) hypertension; F31.9 Bipolar disorder, unspecified; K74.60 Unspecified cirrhosis of liver; E11.9 Type 2 diabetes mellitus without complications; E03.9 Hypothyroidism, unspecified; E66.9 Obesity, unspecified; G47.30 Sleep apnea, unspecified; Z83.3 Family history of diabetes mellitus; F17.200 Nicotine dependence, unspecified, uncomplicated; Z82.49 Family history of ischemic heart disease and other diseases of the circulatory system; Z79.4 Long term (current) use of insulin; Z88.8 Allergy status to other drugs, medicaments and biological substances; Z91.041 Radiographic dye allergy status; Z88.5 Allergy status to narcotic agent; Z88.2 Allergy status to sulfonamides

== ENCOUNTER 2017-07-21 21:26 | Emergency (ER) | payer OTHER ==
[~2017-07-21] VITALS: Ht 161.3 cm; Wt 158.4 kg
[2017-07-21 21:37] VITALS: TEMP 36.9; Ht 161.3 cm; Wt 158.4 kg
[2017-07-21] MEDS ORDERED: SODIUM CHLORIDE 0.9% 1000ML 1,000 ML IV STA (23:25)
[2017-07-21] MEDS ORDERED: KETOROLAC TROMETHAMINE 30 MG/ML VIAL IV STA (23:25)
[2017-07-21] MEDS ORDERED: HYDROmorphone INJ 1 MG/ML SYR IV STA (23:25)
--- NOTE | 2017-07-21 23:33 | EMERGENCY ROOM VISIT NOTE ---
History Report prepared by [place]: Ramin Rodriguez Under the Supervision of: Dr. Katty Morgan M.D. First contact with patient: 23:08 Chief Complaint: URINARY SYMPTOMS Stated Complaint: PAIN POST OP Nursing Triage Summary: Patient reports that she had ureteral stent removed and another placed earlier today, now having severe pain. Patient states that she was not given any medication for pain relief for home. Notes that she only urinated once since surgery. History of Present Illness The patient is a 51 year old female who presents to the Emergency Room with complaints of constant back pain beginning today. The patient states that she had a ureteral stent removed today and had another one placed. She notes that she also had a kidney stone broken up on her left side. She reports that since her procedure, she has been experiencing pain and does not have any pain medication to take. She also complains of nausea. She rates her pain as a 10/ 10. The patient had a KUB done earlier today which showed that her stent is in good position. Source of History: patient Onset: today Position: back Symptom Intensity: 10/10 Timing: constant Associated Symptoms: + nausea Review of Systems See HPI for pertinent positives & negatives. A total of 10 systems reviewed and were otherwise negative. Past Medical & Surgical Medical Problems: (1) Abdominal pain (2) Abdominal pain (3) Abdominal pain (4) Abdominal wall cellulitis (5) Acute hypokalemia (6) Acute renal failure syndrome (7) Anasarca (8) Ankle pain (9) Asthma (10) Atypical syncope (11) Benign hypertension (12) Bipolar disorder (13) Bowel obstruction (14) Cellulitis (15) CELLULITIS ABDOMEN (16) Cellulitis and abscess of trunk (17) Chronic pain (18) Cirrhosis (19) Contusion of ankle (20) Contusion of periorbital region, left (21) Degenerative joint disease of spine (22) Dehydration (23) Dehydration (24) Depression (25) Diabetes mellitus type 2 (26) DM (diabetes mellitus screen) (27) Drug-seeking behavior (28) DVT (deep venous thrombosis) (29) Exacerbation of chronic back pain (30) Fall (31) Fracture of fourth metatarsal bone of left foot (32) Gastroesophageal reflux disease (33) Hepatic encephalopathy (34) Hernia of abdominal wall (35) Hyperglycemia (36) Hypokalemia (37) Hypokalemia (38) Hypokalemia (39) Hypokalemia (40) Hypothyroid (41) Hypothyroidism (42) Hypoxia (43) Incarcerated ventral hernia (44) Incisional irritation (45) Incisional pain (46) Inguinal lymphadenopathy (47) Insomnia (48) Kidney stone (49) residential (current) use of insulin (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 (51) LUMBAGO (52) Migraine (53) Morbid obesity (54) Morbid obesity (55) Morbid obesity (56) Morbid obesity with BMI of 60.0-69.9, adult (57) Obstructive sleep apnea (58) Pain, dental (59) Rectal bleeding (60) Renal colic on right side (61) Renal insufficiency (62) Renal insufficiency (63) SBO (small bowel obstruction) (64) Septic shock (65) Seroma, postoperative (66) Sleep apnea (67) Spinal stenosis (68) Splenomegaly, not elsewhere classified (69) Supraumbilical hernia (70) Weight gain, abnormal Surgical Problems: (1) H/O hernia repair (2) H/O knee surgery (3) H/O: hysterectomy (4) History of cholecystectomy (5) History of urethral stent (6) Hx of appendectomy Social History Problems: (1) Diabetic neuropathy Family History Cancer Diabetes mellitus Gallbladder disease Heart disease Hypertension Lung disease Social History Smoking Status: Current Every Day Smoker Alcohol Use: none Drug Use: none Marital Status: Housing Status: lives with family Occupation Status: unemployed, disabled Current/Historical Medications Scheduled Carvedilol (Coreg), 12.5 MG PO BID Cimetidine (Cimetidine), 300 MG PO QPM Duloxetine HCl (Duloxetine HCl), 60 MG PO BID Escitalopram Oxalate (Escitalopram Oxalate), 20 MG PO QPM Furosemide (Lasix), 40 MG PO QAM Insulin Aspart (Novolog Flexpen), 1 DOSE SC TIDM Insulin Glargine (Lantus Solostar), 77 UNITS SQ BID Levothyroxine Sodium (Synthroid), 200 MCG PO QAM Ranitidine Hcl (Zantac), 300 MG PO HS Rivaroxaban (Xarelto), 20 MG PO QPM Scheduled PRN Albuterol Hfa (Ventolin Hfa), 2 PUFFS INH Q6H PRN for SOB/Wheezing Home O2 Therapy (Oxygen), 3 LITERS NA UD PRN for Shortness of Breath Oxycodone Immediate Rel Tab (Roxicodone Ir), 10 MG PO Q6H PRN for Pain Allergies Coded Allergies: Iodinated Diagnostic Agents (Verified Allergy, Intermediate, hives-PT DENIES SEE NOTE, 07/21/17) Per patient she has had it since without problem (01/25/16 Ioversal given with no pretreats and no mention of rxn; also given Ioversal 11/26/06 with pretreats) Adhesives (Verified Allergy, Mild, RED RASH CAUSED BY PAPER TAPE, 07/21/17) Alprazolam (Verified Allergy, Unknown, MAKES LOOPY,DO AND SAY SILLY THINGS , 07/21/17) Haloperidol (Verified Allergy, Unknown, nervous and anxious, 07/21/17) Metformin (Verified Allergy, Unknown, HANDS FEET FACE NUMB, 07/21/17) Morphine (Verified Allergy, Unknown, SWELLING LEGS AND FEET, 07/21/17) Vancomycin (Verified Adverse Reaction, Severe, renal failure, required dialysis x 3 MONTHS, 07/21/17) Methylparaben (Verified Adverse Reaction, Intermediate, FLUID RETENTION, ) Oxymorphone (Verified Adverse Reaction, Intermediate, FLUID RETENTION, ) Gabapentin (Verified Adverse Reaction, Mild, Aphasia/Speech impairments, ) Sulfa Antibiotics (Verified Adverse Reaction, Mild, GI SYMPTOMS, 07/21/17) Acetaminophen (Verified Adverse Reaction, Unknown, Liver problems., ) Codeine (Verified Adverse Reaction, Unknown, UPSET STOMACH, 07/21/17) Pregabalin (Verified Adverse Reaction, Unknown, Aphasia/Speech impairments , 07/21/17) Uncoded Allergies: PAPER TAPE (Allergy, Severe, rash, 07/21/17) Physical Exam Vital Signs Date Time Temp Pulse Resp B/P (MAP) Pulse Ox O2 Delivery O2 Flow Rate FiO2 07/22/17 02:09 61 16 111/50 93 07/22/17 01:32 61 16 111/50 93 Room Air 07/22/17 00:16 63 07/22/17 00:14 64 20 127/83 98 Room Air 07/21/17 21:37 36.9 74 20 163/93 91 Room Air Physical Exam Vital signs reviewed. General: Somewhat uncomfortable appearing female, in no significant distress, exam limited secondary to morbid obesity, sitting up at bedside. HEENT: No scleral icterus, PERRLA, neck supple. Atraumatic. Cardiovascular: Regular rate and rhythm, no extra sounds. Pulmonary: Clear to auscultation bilaterally, normal work of breathing. Abdomen: Soft, nontender, nondistended, positive bowel sounds. Musculoskeletal: Atraumatic, no peripheral edema. Left greater than right CVA tenderness Neurologic: Patient awake alert and oriented x 3, full strength in all 4 extremities. Cranial nerves 2 through 12 grossly intact. Skin: Warm, dry, no rash Medical Decision & Procedures Laboratory Results 07/21/17 23:46 Red Blood Count 3.18, Mean Corpuscular Volume 96.9, Mean Corpuscular Hemoglobin 30.2, Mean Corpuscular Hemoglobin Concent 31.2, Mean Platelet Volume 8.8, Neutrophils (%) (Auto) 74.1, Lymphocytes (%) (Auto) 18.4, Monocytes (%) (Auto) 7.2, Eosinophils (%) (Auto) 0.1, Basophils (%) (Auto) 0.1, Neutrophils # (Auto) 5.48, Lymphocytes # (Auto) 1.36, Monocytes # (Auto) 0.53, Eosinophils # (Auto) 0.01, Basophils # (Auto) 0.01 07/21/17 23:46 Test 07/21/17 23:46 White Blood Count 7.40 K/uL (4.8-10.8) Red Blood Count 3.18 M/uL (4.2-5.4) Hemoglobin 9.6 g/dL (12.0-16.0) Hematocrit 30.8 % (37-47) Mean Corpuscular Volume 96.9 fL (80-100) Mean Corpuscular Hemoglobin 30.2 pg (25-34) Mean Corpuscular Hemoglobin Concent 31.2 g/dl (32-36) Platelet Count 144 K/uL (130-400) Mean Platelet Volume 8.8 fL (7.4-10.4) Neutrophils (%) (Auto) 74.1 % Lymphocytes (%) (Auto) 18.4 % Monocytes (%) (Auto) 7.2 % Eosinophils (%) (Auto) 0.1 % Basophils (%) (Auto) 0.1 % Neutrophils # (Auto) 5.48 K/uL (1.4-6.5) Lymphocytes # (Auto) 1.36 K/uL (1.2-3.4) Monocytes # (Auto) 0.53 K/uL (0.11-0.59) Eosinophils # (Auto) 0.01 K/uL (0-0.5) Basophils # (Auto) 0.01 K/uL (0-0.2) RDW Standard Deviation 54.0 fL (36.4-46.3) RDW Coefficient of Variation 15.3 % (11.5-14.5) Immature Granulocyte % (Auto) 0.1 % Immature Granulocyte # (Auto) 0.01 K/uL (0.00-0.02) Urine Color RED Urine Appearance CLOUDY (CLEAR) Urine pH 6.0 (4.5-7.5) Urine Specific [place] 1.030 (1.000-1.030) Urine Protein 3+ (NEG) Urine Glucose (UA) 3+ (NEG) Urine Ketones NEG (NEG) Urine Occult Blood 3+ (NEG) Urine Nitrite NEG (NEG) Urine Bilirubin NEG (NEG) Urine Urobilinogen NEG (NEG) Urine Leukocyte Esterase NEG (NEG) Urine WBC (Auto) >30 /hpf (0-5) Urine RBC (Auto) >30 /hpf (0-4) Urine Hyaline Casts (Auto) 1-5 /lpf (0-5) Urine Epithelial Cells (Auto) >30 /lpf (0-5) Urine Bacteria (Auto) NEG (NEG) Urine Renal Epithelial Cells /lpf (0-5) Urine Pathogenic Casts /lpf (0) Anion Gap 7.0 mmol/L (3-11) Est Creatinine Clear Calc Drug Dose 84.6 ml/min Estimated GFR () 62.3 Estimated GFR (Non- 53.7 BUN/Creatinine Ratio 13.0 (10-20) Calcium Level 8.5 mg/dl (8.5-10.1) Total Bilirubin 0.5 mg/dl (0.2-1) Direct Bilirubin 0.2 mg/dl (0-0.2) Aspartate Amino Transf (AST/SGOT) 24 U/L (15-37) Alanine Aminotransferase (ALT/SGPT) 17 U/L (12-78) Alkaline Phosphatase 99 U/L (45-117) Total Protein 7.0 gm/dl (6.4-8.2) Albumin 2.6 gm/dl (3.4-5.0) Beta-Hydroxybutyric Acid 0.61 mg/dL (0.2-2.81) Date/Time Source Procedure Growth Status 07/21/17 23:46 Urine , Clean Catch Urine Culture - Final THREE TYPES OF ORGANSIMS PRESENT, ALL... Complete Laboratory results per my review. Medications Administered Medications (Trade) Dose Ordered Sig/Nelda Route Start Time Stop Time Status Last Admin Dose Admin Ketorolac Tromethamine (Toradol Inj) 30 mg NOW STAT IV 07/21/17 23:25 07/21/17 23:29 DC 07/22/17 00:06 30 MG Hydromorphone HCl (Dilaudid Inj) 1 mg NOW STAT IV 07/21/17 23:25 07/21/17 23:29 DC 07/22/17 00:06 1 MG Sodium Chloride 1,000 ml @ 999 mls/hr Q1H1M STAT IV 07/21/17 23:25 07/22/17 00:25 DC 07/22/17 00:08 999 MLS/HR ED Course 2325: Past medical records reviewed. The patient was evaluated in room C10. A complete history and physical examination was performed. 2325: Sodium Chloride 1000 ml @ 999 mls/hr IV, Dilaudid Inj 1mg IV, Toradol Inj 30mg IV 2339: I reviewed the patient in the [facility] database. 0158: The patient removed her ureteral stent. 0211: Upon reevaluation, the patient appeared to have improvement of her symptoms. I discussed findings with her. She verbalized agreement of the treatment plan. The patient was discharged home. Medical Decision Differential diagnosis: Etiologies such as renal colic, appendicitis, diverticulitis, mesenteric ischemia, aortic pathology, infections, inflammatory bowel disease, PUD, biliary pathology, UTI, as well as others were entertained. This pt was evaluated and appeared to be in no distress. IV access was obtained and lab work was drawn. Pt was given IV toradol, IV dilaudid and IV NSS. KUB was performed earlier in the day and revealed stent in good position. Pt was Rx ATBx earlier today. She was reevaluated and stated she was feeling mildly improved. I was called out of the room and apparently the patient removed her ureteral stent. She was Rx 120 tabs oxy IR 10 mg 06/30/2017. She states she is out of this medication, but I do not feel comfortable Rx additional narcotics for this patient. She was d/c to care of urology this week and return to the ED for worsening of symptoms or any medical concerns. [place] Drug Monitoring Program Search Results: patient reviewed within database Drug Monitoring Findings: The patient was prescribed 120 10mg tablets of oxycodone on 06/30/2017. This was a 30 day supply. Medication Reconcilliation Current Medication List: was personally reviewed by me Blood Pressure Screening Patient's blood pressure: Normal blood pressure Blood pressure disposition: Did not require urgent referral Impression Primary Impression: Pain due to ureteral stent Additional Impression: Renal colic Scribe Attestation The scribe's documentation has been prepared under my direction and personally reviewed by me in its entirety. I confirm that the note above accurately reflects all work, treatment, procedures, and medical decision making performed by me. Departure Information Dispostion Home / Self-Care Referrals Agustina Cummings M.D. (PCP) Forms HOME CARE DOCUMENTATION FORM, IMPORTANT VISIT INFORMATION Patient Instructions My [facility] Additional Instructions Diagnosis: Renal colic, ureteral stent You have removed your ureteral stent that was placed earlier today. Continue the antibiotic as prescribed by Dr. Raya. Ibuprofen 600 mg every 6 hours as needed for pain. Please drink plenty of clear fluids. Contact urology during office hours tomorrow for follow-up. Return to the ER for worsening of symptoms or any medical concerns per Problem Qualifiers
[2017-07-21 23:59] LABS: BASO % 0.1 %; BASO ABS # 0.01 K/uL (0-0.2); EOS % 0.1 %; EOS ABS # 0.01 K/uL (0-0.5); HEMATOCRIT 30.8 % (37-47); HEMOGLOBIN 9.6 g/dL (12.0-16.0); IG# 0.01 K/uL (0.00-0.02); LYMPH % 18.4 %; LYMPH ABS # 1.36 K/uL (1.2-3.4); MEAN CELL VOLUME 96.9 fL (80-100); MEAN CORPUSCULAR HEMOGLOBIN 30.2 pg (25-34); MEAN CORPUSCULAR HGB CONC 31.2 g/dl (32-36); MEAN PLATELET VOLUME 8.8 fL (7.4-10.4); MONO % 7.2 %; MONO ABS # 0.53 K/uL (0.11-0.59); NEUT % 74.1 %; NEUT ABS # 5.48 K/uL (1.4-6.5); PLATELET COUNT 144 K/uL (130-400); RED CELL DISTRIBUTION WIDTH CV 15.3 % (11.5-14.5)
[2017-07-22 00:20] LABS: ALBUMIN 2.6 gm/dl (3.4-5.0); CALCIUM 8.5 mg/dl (8.5-10.1); CREATININE 1.16 mg/dl (0.60-1.20); POTASSIUM 3.7 mmol/L (3.5-5.1)
[2017-07-22] MEDS ORDERED: FRS/40 PO ×2 (01:07)
--- NOTE | 2017-07-22 02:06 | EMERGENCY ROOM VISIT NOTE ---
ED Visit Note Called to bedside during a period of high volume high acuity over concerns about pts ureter stent. Pt had removed approx 50% of stent and was stating she wanted it out due to tpain. Explained to patient it should not be removed except by Urology. Pt stated she was going to remove it due to pain. Stent was removed.
[2017-07-22 02:09] VITALS: BP 111/50; PULSE 61; O2SAT 93
[2017-07-22] MEDS ORDERED: XRL20 PO ×2 (16:47)
[2017-07-22] MEDS ORDERED: LXP/20 PO ×2 (19:07)
[2017-07-22] MEDS ORDERED: CYM60 PO ×2 (19:07)
[2017-07-22] MEDS ORDERED: INSDGIPEN SQ ×2 (19:09)
[2017-07-22] MEDS ORDERED: CARV12.52 PO ×2 (19:15)
[2017-07-22] MEDS ORDERED: SYN200 PO (20:02)
[2017-07-22] MEDS ORDERED: NVLGI/PEN SC ×2 (20:31)
[2017-07-22] MEDS ORDERED: OXGN ×2 (20:37)
[2017-07-22] MEDS ORDERED: VNTHFA/IN INH ×2 (21:13)
[2017-07-22] MEDS ORDERED: [UNRECOGNIZED DRUG - CODE] PO (22:52)
[2017-07-22] MEDS ORDERED: RANI300T PO (22:52)
== END 2017-07-22 02:10 | disposition home or self-care (01) ==
LOC: C.EDB 21:28 → C.EDC 07-22 02:10
DX: T83.192A Other mechanical complication of indwelling ureteral stent, initial encounter (principal); Y73.1 Therapeutic (nonsurgical) and rehabilitative gastroenterology and urology devices associated with adverse incidents; N23 Unspecified renal colic; J45.909 Unspecified asthma, uncomplicated; I10 Essential (primary) hypertension; E11.40 Type 2 diabetes mellitus with diabetic neuropathy, unspecified; E03.9 Hypothyroidism, unspecified; F31.9 Bipolar disorder, unspecified; F17.200 Nicotine dependence, unspecified, uncomplicated; Z98.890 Other specified postprocedural states; Z79.4 Long term (current) use of insulin; Z79.01 Long term (current) use of 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s; Z96.0 Presence of urogenital implants; Z86.718 Personal history of other venous thrombosis and embolism; Z87.442 Personal history of urinary calculi; Z91.041 Radiographic dye allergy status; Z91.048 Other nonmedicinal substance allergy status; Z88.8 Allergy status to other drugs, medicaments and biological substances; Z88.6 Allergy status to analgesic agent; Z88.1 Allergy status to other antibiotic agents; Z88.2 Allergy status to sulfonamides; Z83.3 Family history of diabetes mellitus; Z83.79 Family history of other diseases of the digestive system; Z82.49 Family history of ischemic heart disease and other diseases of the circulatory system; Z83.6 Family history of other diseases of the respiratory system

== ENCOUNTER → 2017-07-21 | Day surgery (SDC) | payer OTHER ==
[2017-07-12 09:13] VITALS: BMI 62.0
--- NOTE | 2017-07-12 09:49 | PAT Medication Instructions ---
Service Date Jul 12, 2017. Current Home Medication List Albuterol Hfa (Ventolin Hfa), 2-4 PUFFS INH Q6H PRN for SOB/Wheezing Carvedilol (Coreg), 12.5 MG PO BID Cimetidine (Tagamet), 300 MG PO QPM Duloxetine HCl (Duloxetine HCl), 60 MG PO BID Escitalopram Oxalate (Escitalopram Oxalate), 20 MG PO QPM Furosemide (Lasix), 40 MG PO QAM Home O2 Therapy (Oxygen), 3 LITERS NA UD PRN for Shortness of Breath Insulin Aspart (Novolog Flexpen), 1 DOSE SC TIDM Insulin Glargine (Lantus Solostar), 77 UNITS SQ BID Levothyroxine Sodium (Synthroid), 200 MCG PO QAM Oxycodone Ir (Roxicodone Ir), 10 MG PO Q6H PRN for Pain Ranitidine Hcl (Zantac), 300 MG PO HS Rivaroxaban (Xarelto), 20 MG PO QPM Medication Instructions For Your Scheduled Surgery -Continue as directed: Home O2 Therapy (Oxygen), 3 LITERS NA UD PRN for Shortness of Breath -Contact your prescriber for instructions for: Rivaroxaban (Xarelto), 20 MG PO QPM - Hold the following medications the morning of surgery: Furosemide (Lasix), 40 MG PO QAM Insulin Aspart (Novolog Flexpen), 1 DOSE SC TIDM - Take the following medications the morning of surgery with a sip of water: Albuterol Hfa (Ventolin Hfa), 2-4 PUFFS INH Q6H PRN for SOB/Wheezing (if needed , and bring it with you to the hospital) Carvedilol (Coreg), 12.5 MG PO BID Duloxetine HCl (Duloxetine HCl), 60 MG PO BID Levothyroxine Sodium (Synthroid), 200 MCG PO QAM Oxycodone Ir (Roxicodone Ir), 10 MG PO Q6H PRN for Pain (if needed, can be taken up to four hours before surgery) - Take the following medications as scheduled the night before surgery: Albuterol Hfa (Ventolin Hfa), 2-4 PUFFS INH Q6H PRN for SOB/Wheezing (if needed) Carvedilol (Coreg), 12.5 MG PO BID Cimetidine (Tagamet), 300 MG PO QPM Duloxetine HCl (Duloxetine HCl), 60 MG PO BID Escitalopram Oxalate (Escitalopram Oxalate), 20 MG PO QPM Insulin Glargine (Lantus Solostar), 77 UNITS SQ BID Oxycodone Ir (Roxicodone Ir), 10 MG PO Q6H PRN for Pain (if needed) Ranitidine Hcl (Zantac), 300 MG PO HS - For Insulin Dependent Diabetic patients: Test blood sugar A.M. of surgery. - If BLOOD SUGAR IS GREATER THAN 150, take half of your regular dose of: Insulin Glargine (Lantus Solostar) -- TAKE 38 UNITS - If BLOOD SUGAR IS LESS THAN 150, do not take any: Insulin Glargine ( Lantus Solostar) If you have any questions please call us at [phone] or [phone] or [phone]
[2017-07-12 10:30] LABS: BASO % 0.3 %; BASO ABS # 0.02 K/uL (0-0.2); EOS % 2.6 %; EOS ABS # 0.15 K/uL (0-0.5); HEMATOCRIT 32.4 % (37-47); HEMOGLOBIN 10.5 g/dL (12.0-16.0); IG# 0.01 K/uL (0.00-0.02); LYMPH ABS # 1.56 K/uL (1.2-3.4); MEAN CELL VOLUME 98.2 fL (80-100); MEAN CORPUSCULAR HEMOGLOBIN 31.8 pg (25-34); MEAN CORPUSCULAR HGB CONC 32.4 g/dl (32-36); MEAN PLATELET VOLUME 9.1 fL (7.4-10.4); MONO % 7.3 %; MONO ABS # 0.42 K/uL (0.11-0.59); NEUT % 62.6 %; NEUT ABS # 3.62 K/uL (1.4-6.5); PLATELET COUNT 115 K/uL (130-400); RED CELL DISTRIBUTION WIDTH CV 15.5 % (11.5-14.5); RED CELL DISTRIBUTION WIDTH SD 55.2 fL (36.4-46.3); WHITE BLOOD COUNT 5.78 K/uL (4.8-10.8)
[2017-07-12 11:24] LABS: CALCIUM 8.3 mg/dl (8.5-10.1); CREATININE 0.92 mg/dl (0.60-1.20)
[~2017-07-21] VITALS: Ht 161.3 cm; Wt 161.2 kg
[~2017-07-21] MED LIST changes: +ATROPINE SULFATE 0.1 MG/ML 5ML SYR IV PRN; -CIPR-255 PO; +Cysto-Conray II 17.2% 250ML BOTTLE ONE; +DEXAMETHASONE SOD INJ 4 MG/ML VIAL ONE; +EpHEDrine SULFATE INJ 50 MG/ML AMP IV PRN; +FENTANYL CITRATE INJ 50 MCG/1 ML 2 ML VIAL IV PRN; +FENTANYL CITRATE INJ 50 MCG/1 ML 2 ML VIAL ONE; +GENTAMICIN INJ 160 MG in DEXTROSE 5% 100ML 100 ML IV SCH; +GLYCOPYRROLATE INJ 0.2 MG/ML VIAL ONE; +HYDROmorphone INJ 0.5 MG/0.5 ML SYR IV PRN; -KETO10TA PO; +LABETALOL HCL IV 5 MG/ML 20ML IV PRN; +LACTATED RINGER'S 1000ML 1,000 ML IV SCH; +LIDOCAINE HCL 2% 2 ML VIAL (20MG/ML) ONE; +MIDAZOLAM HCL 1 MG/ML 2ML VIAL ONE; +NEOSTIGMINE METHYLSULFATE 5 MG/5 ML SYR ONE; +NITR1CAP16 PO; +ONDANSETRON INJ 2 MG/ML 2 ML VIAL IV PRN; +ONDANSETRON INJ 2 MG/ML 2 ML VIAL ONE; +OXYCODONE/ACETAMINOPHEN 5-325 TAB ONE; +OXYCODONE/ACETAMINOPHEN 5-325 TAB PO PRN; +PHENAZOPYRIDINE HCL 200 MG TAB PO PRN; +PHENYLEPHRINE 100MCG/ML 5ML SYR IV PRN; +PHENYLEPHRINE 100MCG/ML 5ML SYR ONE; +PROMETHAZINE HCL INJ 12.5 MG in SODIUM CHLORIDE 0.9% 50ML 50 ML IV PRN; +PROPOFOL IV EMULSION 10 MG/ML 20 ML VIAL IV ONE; +RANI300T PO; +SUCCINYLCHOLINE 100MG/5ML SYR IV ONE; +SYN200 PO; +[UNRECOGNIZED DRUG - CODE] PO
[2017-07-21 05:54] VITALS: BP 135/72; PULSE 56; TEMP 36.8; O2SAT 96; Ht 161.3 cm; Wt 161.2 kg
--- NOTE | 2017-07-21 07:10 | History & Physical Bridge Note ---
H&P Re-Evaluation Bridge Note: I have examined the patient, reviewed the History & Physical and in the interval since the performance of the History & Physical I have noted the following changes of clinical significance: No changes noted
--- NOTE | 2017-07-21 08:20 | [facility] Post Operative Brief Note ---
Immediate Operative Summary Operative Date Jul 21, 2017. Pre-Operative Diagnosis Left Proximal Ureteral Stone, indwelling stent, History of Sepsis Post-Operative Diagnosis same Procedure(s) Performed Cystoscopy, Left Stent Exchange, Left Flexible Ureteroscopy with Laser Lithotripsy, and Basket stone extraction Surgeon Dr. Wero Raya Caretaker Surgeon(s) none Estimated Blood Loss 0mL Findings Consistent with Post-Op Diagnosis Specimens A. Left Ureteral Stone fragments for chemical analysis Drains L 6 fr multilength Anesthesia Type General Complication(s) none Disposition Accompanied Pt To Recover: no Disposition: Recovery Room / PACU
--- NOTE | 2017-07-21 08:23 | Discharge Instructions ---
Discharge Instructions Date of Service Jul 21, 2017. Admission Reason for Admission: STONE Discharge Discharge Diagnosis / Problem: L upper ureteral stone s/p uscope, laser, stent exchange Discharge Goals Goal(s): Improve disease control, Therapeutic intervention Activity Recommendations Activity Limitations: as noted below Lifting Limitations: no more than 25 pounds, gradually increase as tolerated Exercise/Sports Limitations: rest today, gradually increase as tolerated May Resume Sexual Activity: when tolerated Shower/Bathe: no limitations Driving or Machine Use: resume 1 day after discharge . Instructions / Follow-Up Instructions / Follow-Up In office for stent removal with nursing (no Xray needed) TuesdayJuly 26 at 09:30. Postop visit Aug 08 at 14:00 with [facility] Xray beforehand. Current Hospital Diet Patient's current hospital diet: Discharge Diet Recommended Diet: Regular Diet (good fluid intake) Procedures Procedures Performed: Cystoscopy, Left Stent Exchange, Left Flexible Ureteroscopy with Laser Lithotripsy, and Basket stone extraction Pending Studies Studies pending at discharge: yes List of pending studies: stone analysis Medical Emergencies . Who to Call and When: Medical Emergencies: If at any time you feel your situation is an emergency, please call 911 immediately. . Non-Emergent Contact Non-Emergency issues call your: Urologist Call Non-Emergent contact if: you have a fever, temperature is above 101, your pain is not controlled, your pain is worsening, your pain is unusual for you, your pain is concerning you, you have any medication questions . . "Provider Documentation" section prepared by Wero Raya. .
--- NOTE | 2017-07-21 08:37 | DIAGNOSTIC IMAGING REPORT ---
[facility] CLINICAL HISTORY: LEFT LASER LITHO AND STENT EXCHANGE TECHNIQUE: Image intensifier COMPARISON STUDY: None FINDINGS: Image intensifier utilized for a laser lithotripsy and stent exchange IMPRESSION: Laser lithotripsy and left-sided stent exchange. The above report was generated using voice recognition software. It may contain grammatical, syntax or spelling errors. Electronically signed by: Will Holder M.D. 07/21/2017 8:36 AM Dictated Date/Time: 07/21/2017 8:34 AM
--- NOTE | 2017-07-21 08:52 | [facility] Operative Report ---
Operative Report Operative Date Jul 21, 2017. Pre-Operative Diagnosis Left Proximal Ureteral Stone, indwelling stent, History of Sepsis Post-Operative Diagnosis same Procedure(s) Performed Cystoscopy, Left Stent Exchange, Left Flexible Ureteroscopy with Laser Lithotripsy, and Basket stone extraction Surgeon Dr. Wero Raya Music Theory Professor Surgeon(s) none Estimated Blood Loss 0mL Findings No residual stones after completion of case, good stent position on fluoroscopy intraoperatively and on direct visualization. Specimens A. Left Ureteral Stone fragments for chemical analysis Drains L 6 fr multilength ureteral stent Anesthesia Type General Complication(s) none Disposition no Recovery Room / PACU Indications Patient is a poorly compliant, comorbid 51-year-old female who is here today for endoscopic management of her left proximal ureteral stone previously associated with sepsis. She is being managed with ureteroscopy due to morbid obesity. Her surgery has been rescheduled on a number of occasions due to issues with compliance, medication use and her general health. Please see H&P and outpatient chart for further details. Intravenous gentamicin provided due to the patient's multiple antibiotic allergies for intravenous coverage. SCDs used for DVT prophylaxis. Description of Procedure Patient was properly identified and brought into the operative suite after identification for appropriate consent in the chart. General anesthesia with endotracheal intubation was initiated and patient was prepped and draped in the standard fashion for this procedure. Full timeout procedure was followed. 22 Kosovan rigid cystoscope was introduced into the bladder and the bladder was surveyed in its entirety demonstrating reactive edema around the left ureteral orifice but otherwise no tumors, stones or masses. Left-sided ureteral stent was in place and on encrusted. Left ureter was cannulated with both a sensor tip wire which was left until the end of the case as a safety wire and a working Amplatz superstiff wire. Ureteral stent was removed. A 14/16 35 cm left ureteral access sheath was introduced without difficulties or resistance up to the level of the mid ureter. This was followed by a fiberoptic ureteroscope. The patient's offending stone was visualized in the proximal ureter, unchanged in location and impacted. This was fragmented into smaller pieces using a 200 m fiber which were then grasped with an open-ended basket and removed from the patient. These were sent for chemical analysis. No trauma or resistance while stone basketing was noted. Complete pyeloscopy was performed with the ureteroscope and fluoroscopic guidance demonstrating no residual stone fragments or other abnormalities within the kidney. Complete exit ureteroscopy was performed including removal of the access sheath and inspection of the ureter behind it redemonstrated no residual stones, tumors, strictures, ureteral injury or other abnormalities. After this was complete the cystoscope was backloaded over the safety wire and a 6 Kosovan multilength ureteral stent was placed with redundant stent being present at the level of the kidney and a full coil being present within the bladder. Tether was left intact on the stent which was then taped to the left inner thigh using Steri- Strips and benzoin. Bladder was drained and cystoscope was removed. Anesthesia was reversed and patient was transferred to the recovery room in stable condition. Discharge care: Patient to be discharged home after recovery today. Outpatient appointments for stent removal by nursing staff and follow-up with K[facility] are confirmed. Short prescription for nitrofurantoin provided seen her history of sepsis previously. Patient is to contact our service with any fevers, chills, nausea, vomiting or other difficulties in the postoperative period. I attest to the content of the Intraoperative Record and any orders documented therein. Any exceptions are noted below.
--- NOTE | 2017-07-21 09:17 | Anesthesiology Progress Note ---
Anesthesia Post Op Note Date & Time Jul 21, 2017 at 09:17 Vital Signs Pain Intensity: 5 Vital Signs Past 12 Hours Date Time Temp Pulse Resp B/P (MAP) Pulse Ox O2 Delivery O2 Flow Rate FiO2 07/21/17 08:55 54 14 97/49 96 Nasal Cannula 2 07/21/17 08:45 55 26 92/49 93 Oxymask 10 07/21/17 08:35 55 20 94/47 98 Oxymask 10 07/21/17 08:29 36.3 54 12 89/56 93 Oxymask 10 07/21/17 05:54 36.8 56 22 135/72 (93) 96 Room Air Notes Mental Status: alert / awake / arousable, participated in evaluation Pt Amnestic to Procedure: Yes Nausea / Vomiting: adequately controlled Pain: adequately controlled Airway Patency, RR, SpO2: stable & adequate BP & HR: stable & adequate Hydration State: stable & adequate Anesthetic Complications: no major complications apparent Awake, doing well, no complaints. VSS.
[2017-07-21 09:35] VITALS: BP 99/55; PULSE 48; TEMP 36.6; O2SAT 95
[2017-07-21 10:05] VITALS: BP 102/53; PULSE 61; O2SAT 95
[2017-07-21 10:35] VITALS: BP 105/56; PULSE 60; O2SAT 94
== END | disposition home or self-care (01) ==
LOC: C.ACU 05:14
PROVIDERS: ATTEND Urology
DX: N20.1 Calculus of ureter (principal); J45.909 Unspecified asthma, uncomplicated; K74.60 Unspecified cirrhosis of liver; E11.42 Type 2 diabetes mellitus with diabetic polyneuropathy; E78.5 Hyperlipidemia, unspecified; K21.9 Gastro-esophageal reflux disease without esophagitis; E03.9 Hypothyroidism, unspecified; F31.9 Bipolar disorder, unspecified; N18.2 Chronic kidney disease, stage 2 (mild); E66.01 Morbid (severe) obesity due to excess calories; I12.9 Hypertensive chronic kidney disease with stage 1 through stage 4 chronic kidney disease, or unspecified chronic kidney disease; K44.9 Diaphragmatic hernia without obstruction or gangrene; F17.200 Nicotine dependence, unspecified, uncomplicated; G47.33 Obstructive sleep apnea (adult) (pediatric); M19.90 Unspecified osteoarthritis, unspecified site; Z88.5 Allergy status to narcotic agent; Z91.041 Radiographic dye allergy status; Z88.1 Allergy status to other antibiotic agents; Z87.442 Personal history of urinary calculi; Z79.4 Long term (current) use of insulin; Z83.3 Family history of diabetes mellitus; Z86.718 Personal history of other venous thrombosis and embolism; Z82.49 Family history of ischemic heart disease and other diseases of the circulatory system; Z87.440 Personal history of urinary (tract) infections; Z90.49 Acquired absence of other specified parts of digestive tract; Z96.653 Presence of artificial knee joint, bilateral; Z88.2 Allergy status to sulfonamides; Z85.42 Personal history of malignant neoplasm of other parts of uterus

== ENCOUNTER 2017-07-22 18:14 | Observation (INO) | payer OTHER ==
[~2017-07-22] VITALS: Ht 162.6 cm; Wt 156.5 kg
[~2017-07-22 18:14] MED LIST changes: -CIME-56 PO; +FRS/40 PO; -NITR1CAP16 PO; -OXYC1TAB3 PO; -RANI300T2 PO; +XRL20 PO
[2017-07-22] MEDS ORDERED: KETOROLAC TROMETHAMINE 30 MG/ML VIAL IV STA (18:34)
[2017-07-22] MEDS ORDERED: ONDANSETRON INJ 2 MG/ML 2 ML VIAL IV STA (18:34)
[2017-07-22] MEDS ORDERED: SODIUM CHLORIDE 0.9% 1000ML 1,000 ML IV STA (18:34)
[2017-07-22] MEDS ORDERED: CEFTRIAXONE SOD INJ 1 GM ADDVIAL IV STA (18:34)
[2017-07-22] MEDS ORDERED: HYDROmorphone INJ 2 MG/ML SYR/VIAL IV PRN (18:45)
--- NOTE | 2017-07-22 18:56 | EMERGENCY ROOM VISIT NOTE ---
History Report prepared by [place]: Steve Saleh Under the Supervision of: Dr. Juan Rowe M.D. First contact with patient: 18:24 Chief Complaint: FLANK PAIN Stated Complaint: POST OP PAIN History of Present Illness The patient is a 51 year old female who presents to the Emergency Room with complaints of constant, severe, left flank pain beginning yesterday. The patient currently rates her discomfort an 8/10 in severity, and movement increases it to a 10/10 in severity. She states she has a history of a left ureteral stent. The patient reports she went to the restroom yesterday and urinated the stent out. She notes she has developed severe back pain, kidney pain, bladder pain, nausea, and abdominal pain; all of which is on the left side. The patient states she has not eaten much today because the pain is too much. She reports she has been taking more oxycodone than prescribed to help manage the pain. The patient notes she ran out of oxycodone and is still in pain. She states she is not vomiting, but she is dry heaving. The patient reports she has had chills, and she denies fevers. She notes she is experiencing burning upon urination. The patient states she was supposed to take an antibiotic, but she has not been taking it. She reports she went septic in March secondary to a kidney stone, and she was hospitalized. The patient notes she was on antibiotics for a month. Review of EMR states the patient was evaluated in the ED twice yesterday. During the first visit, the patient had a KUB that showed her stent was in the proper position. Urology was consulted and discharge was recommended. During the second visit, the patient returned for pain management. The PDMP review showed the patient received 120, 10mg tablets of oxycodone on 06/30, and it was supposed to be a 30 day supply. She was given a dose of pain medication on this visit, and she removed her ureteral stent while urinating during this visit. Source of History: patient Onset: yesterday Position: other (left flank) Symptom Intensity: severe Timing: constant Modifying Factors (Worsening): movement Associated Symptoms: + chills, + nausea, + abdominal pain, No fevers Note: Associated symptoms: left kidney pain, left sided bladder pain, dry heaving, burning upon urination Review of Systems See HPI for pertinent positives & negatives. A total of 10 systems reviewed and were otherwise negative. Past Medical & Surgical Medical Problems: (1) Abdominal pain (2) Abdominal pain (3) Abdominal pain (4) Abdominal wall cellulitis (5) Acute hypokalemia (6) Acute renal failure syndrome (7) Anasarca (8) Ankle pain (9) Asthma (10) Atypical syncope (11) Benign hypertension (12) Bipolar disorder (13) Bowel obstruction (14) Cellulitis (15) CELLULITIS ABDOMEN (16) Cellulitis and abscess of trunk (17) Chronic pain (18) Cirrhosis (19) Contusion of ankle (20) Contusion of periorbital region, left (21) Degenerative joint disease of spine (22) Dehydration (23) Dehydration (24) Depression (25) Diabetes mellitus type 2 (26) DM (diabetes mellitus screen) (27) Drug-seeking behavior (28) DVT (deep venous thrombosis) (29) Exacerbation of chronic back pain (30) Fall (31) Fracture of fourth metatarsal bone of left foot (32) Gastroesophageal reflux disease (33) Hepatic encephalopathy (34) Hernia of abdominal wall (35) Hyperglycemia (36) Hypokalemia (37) Hypokalemia (38) Hypokalemia (39) Hypokalemia (40) Hypothyroid (41) Hypothyroidism (42) Hypoxia (43) Incarcerated ventral hernia (44) Incisional irritation (45) Incisional pain (46) Inguinal lymphadenopathy (47) Insomnia (48) Kidney stone (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 (50) care home current use of 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 (51) LUMBAGO (52) Migraine (53) Morbid obesity (54) Morbid obesity (55) Morbid obesity (56) Morbid obesity with BMI of 60.0-69.9, adult (57) Obstructive sleep apnea (58) Pain, dental (59) Rectal bleeding (60) Renal colic on right side (61) Renal insufficiency (62) Renal insufficiency (63) SBO (small bowel obstruction) (64) Septic shock (65) Seroma, postoperative (66) Sleep apnea (67) Spinal stenosis (68) Splenomegaly, not elsewhere classified (69) Supraumbilical hernia (70) Weight gain, abnormal Surgical Problems: (1) H/O hernia repair (2) H/O knee surgery (3) H/O: hysterectomy (4) History of cholecystectomy (5) History of urethral stent (6) Hx of appendectomy Social History Problems: (1) Diabetic neuropathy Family History Cancer Diabetes mellitus Gallbladder disease Heart disease Hypertension Lung disease Social History Smoking Status: Current Every Day Smoker Alcohol Use: none Drug Use: none Marital Status: Housing Status: lives with family Occupation Status: unemployed, disabled Current/Historical Medications Scheduled Carvedilol (Coreg), 12.5 MG PO BID Cimetidine (Cimetidine), 300 MG PO QPM Duloxetine HCl (Duloxetine HCl), 60 MG PO BID Escitalopram Oxalate (Escitalopram Oxalate), 20 MG PO QPM Furosemide (Lasix), 40 MG PO QAM Insulin Aspart (Novolog Flexpen), 1 DOSE SC TIDM Insulin Glargine (Lantus Solostar), 77 UNITS SQ BID Levothyroxine Sodium (Synthroid), 200 MCG PO QAM Ranitidine Hcl (Zantac), 300 MG PO HS Rivaroxaban (Xarelto), 20 MG PO QPM Scheduled PRN Albuterol Hfa (Ventolin Hfa), 2 PUFFS INH Q6H PRN for SOB/Wheezing Home O2 Therapy (Oxygen), 3 LITERS NA UD PRN for Shortness of Breath Allergies Coded Allergies: Iodinated Diagnostic Agents (Verified Allergy, Intermediate, hives-PT DENIES SEE NOTE, 07/21/17) Per patient she has had it since without problem (01/25/16 Ioversal given with no pretreats and no mention of rxn; also given Ioversal 11/26/06 with pretreats) Adhesives (Verified Allergy, Mild, RED RASH CAUSED BY PAPER TAPE, 07/21/17) Alprazolam (Verified Allergy, Unknown, MAKES LOOPY,DO AND SAY SILLY THINGS , 07/21/17) Haloperidol (Verified Allergy, Unknown, nervous and anxious, 07/21/17) Metformin (Verified Allergy, Unknown, HANDS FEET FACE NUMB, 07/21/17) Morphine (Verified Allergy, Unknown, SWELLING LEGS AND FEET, 07/21/17) Vancomycin (Verified Adverse Reaction, Severe, renal failure, required dialysis x 3 MONTHS, 07/21/17) Methylparaben (Verified Adverse Reaction, Intermediate, FLUID RETENTION, ) Oxymorphone (Verified Adverse Reaction, Intermediate, FLUID RETENTION, ) Gabapentin (Verified Adverse Reaction, Mild, Aphasia/Speech impairments, ) Sulfa Antibiotics (Verified Adverse Reaction, Mild, GI SYMPTOMS, 07/21/17) Acetaminophen (Verified Adverse Reaction, Unknown, Liver problems., ) Codeine (Verified Adverse Reaction, Unknown, UPSET STOMACH, 07/21/17) Pregabalin (Verified Adverse Reaction, Unknown, Aphasia/Speech impairments , 07/21/17) Uncoded Allergies: PAPER TAPE (Allergy, Severe, rash, 07/21/17) Physical Exam Vital Signs Date Time Temp Pulse Resp B/P (MAP) Pulse Ox O2 Delivery O2 Flow Rate FiO2 07/22/17 18:18 36.8 67 20 141/70 98 Room Air Physical Exam GENERAL: Patient is in no acute distress. HEENT: No acute trauma, normocephalic atraumatic, mucous membranes moist, no nasal congestion, no scleral icterus. NECK: No stridor, no adenopathy, no meningismus, trachea is midline. LUNGS: Clear to auscultation bilaterally, no wheeze, no rhonchi, breath sounds equal. HEART: Without murmurs gallops or rubs, regular rate and rhythm. ABDOMEN: Soft, left sided tenderness upon palpation, bowel sounds positive, no hernias, no peritonitis. BACK: Left flank discomfort with percussion EXTREMITIES: No cyanosis or edema, full range of motion of all the joints without pain or difficulty, no signs for acute trauma. NEUROLOGIC: Oriented x 3, no acute motor or sensory deficits, no focal weakness. SKIN: No rash, no jaundice, no diaphoresis. Medical Decision & Procedures ER Provider Diagnostic Interpretation: CT results as stated below per my review and radiologist interpretation: CT SCAN OF THE ABDOMEN AND PELVIS WITHOUT IV CONTRAST CLINICAL HISTORY: Flank pain. Hematuria. COMPARISON STUDY: Abdominal CT dated 06/25/2017. TECHNIQUE: CT scan of the abdomen and pelvis is performed from the lung bases to the proximal femora. Images are reviewed in the axial, sagittal, and coronal planes. IV contrast was not administered for this examination as per the referring clinician. A dose lowering technique was utilized adhering to the principles of ALARA. The examination is degraded by large body habitus, and by streak artifact from the body wall abutting the CT gantry. CT DOSE: 1964.07 mGy.cm FINDINGS: Lung bases: The heart is normal in size and without pericardial effusion. The lung bases are clear. There is a small hiatal hernia. Liver: The unenhanced liver is cirrhotic in morphology and heterogeneous in attenuation. There is hypertrophy of the left lobe and caudate as well as nodularity of the surface contour. There is no intrahepatic biliary ductal dilatation. Gallbladder: Surgically absent noting clips in the gallbladder fossa. Spleen: The spleen is enlarged, measuring 17.2 cm in length. Pancreas: The unenhanced pancreas is markedly atrophic and grossly unremarkable. Adrenal glands: Thickening of the left adrenal gland is similar to previous. The right adrenal gland is normal in appearance. Kidneys: The unenhanced kidneys demonstrate mild cortical atrophy and are without hydronephrosis. There are no renal calculi identified. A ureteral stent has been removed from previous. There is no evidence of contour deforming renal mass lesion. There is left-sided perinephric and periureteric stranding. Abdominal vasculature: The abdominal aorta is normal in course and caliber noting moderate atherosclerotic calcification. Bowel: There are scattered colonic diverticula without CT evidence of acute diverticulitis. No bowel obstruction is seen. The appendix is not identified and reported surgically absent. Peritoneum: There is no intraperitoneal free air or abdominal ascites. Postoperative change is noted in the ventral abdominal wall. Lymphadenopathy: Prominent lymph nodes in the uziel hepatis are unchanged and likely related to chronic liver disease. Shotty retroperitoneal lymph nodes are also identified. Pelvic viscera: The bladder is decompressed and not well evaluated. A small focus of gas is present within the bladder lumen. The uterus is surgically absent. No adnexal lesion is seen. Skeletal structures: The skeletal structures are osteopenic. There is moderate lumbosacral spondylosis. No lytic or blastic lesions are seen. Soft tissues: There is mild body wall edema. IMPRESSION: 1. No renal calculi are identified and there is no hydronephrosis. 2. A left ureteral stent has been removed from previous. Asymmetric left-sided perinephric and periureteric stranding are identified. This is nonspecific and may be related to urinary tract infection. Correlation with clinical findings and urinalysis will be required. 3. The bladder is decompressed and not well evaluated. A small focus of gas is present within the bladder lumen. This may be related to infection or recent instrumentation. Again, correlation with clinical findings and urinalysis will be required. 4. Cirrhotic liver morphology. 5. Splenomegaly. 6. Additional findings as above. Electronically signed by: Juan Doran M.D. 07/22/2017 7:25 PM Dictated Date/Time: 07/22/2017 7:15 PM Laboratory Results 07/22/17 18:47 Red Blood Count 3.25, Mean Corpuscular Volume 97.2, Mean Corpuscular Hemoglobin 30.2, Mean Corpuscular Hemoglobin Concent 31.0, Mean Platelet Volume 9.3, Neutrophils (%) (Auto) 61.3, Lymphocytes (%) (Auto) 28.4, Monocytes (%) (Auto) 8.3, Eosinophils (%) (Auto) 1.5, Basophils (%) (Auto) 0.2, Neutrophils # (Auto) 3.99, Lymphocytes # (Auto) 1.85, Monocytes # (Auto) 0.54, Eosinophils # (Auto) 0.10, Basophils # (Auto) 0.01 07/22/17 18:47 Test 07/22/17 18:47 White Blood Count 6.51 K/uL (4.8-10.8) Red Blood Count 3.25 M/uL (4.2-5.4) Hemoglobin 9.8 g/dL (12.0-16.0) Hematocrit 31.6 % (37-47) Mean Corpuscular Volume 97.2 fL (80-100) Mean Corpuscular Hemoglobin 30.2 pg (25-34) Mean Corpuscular Hemoglobin Concent 31.0 g/dl (32-36) Platelet Count 137 K/uL (130-400) Mean Platelet Volume 9.3 fL (7.4-10.4) Neutrophils (%) (Auto) 61.3 % Lymphocytes (%) (Auto) 28.4 % Monocytes (%) (Auto) 8.3 % Eosinophils (%) (Auto) 1.5 % Basophils (%) (Auto) 0.2 % Neutrophils # (Auto) 3.99 K/uL (1.4-6.5) Lymphocytes # (Auto) 1.85 K/uL (1.2-3.4) Monocytes # (Auto) 0.54 K/uL (0.11-0.59) Eosinophils # (Auto) 0.10 K/uL (0-0.5) Basophils # (Auto) 0.01 K/uL (0-0.2) RDW Standard Deviation 54.5 fL (36.4-46.3) RDW Coefficient of Variation 15.3 % (11.5-14.5) Immature Granulocyte % (Auto) 0.3 % Immature Granulocyte # (Auto) 0.02 K/uL (0.00-0.02) Urine Color YELLOW Urine Appearance CLOUDY (CLEAR) Urine pH 6.0 (4.5-7.5) Urine Specific [place] 1.018 (1.000-1.030) Urine Protein 1+ (NEG) Urine Glucose (UA) NEG (NEG) Urine Ketones NEG (NEG) Urine Occult Blood 3+ (NEG) Urine Nitrite NEG (NEG) Urine Bilirubin NEG (NEG) Urine Urobilinogen NEG (NEG) Urine Leukocyte Esterase MODERATE (NEG) Urine WBC (Auto) >30 /hpf (0-5) Urine RBC (Auto) >30 /hpf (0-4) Urine Hyaline Casts (Auto) 10-30 /lpf (0-5) Urine Epithelial Cells (Auto) >30 /lpf (0-5) Urine Bacteria (Auto) NEG (NEG) Urine Renal Epithelial Cells 10-20 /lpf (0-5) Anion Gap 4.0 mmol/L (3-11) Est Creatinine Clear Calc Drug Dose 105.8 ml/min Estimated GFR () 82.4 Estimated GFR (Non- 71.1 BUN/Creatinine Ratio 15.1 (10-20) Calcium Level 8.3 mg/dl (8.5-10.1) Laboratory results reviewed by me. Medications Administered Medications (Trade) Dose Ordered Sig/Nelda Route Start Time Stop Time Status Last Admin Dose Admin Ondansetron HCl (Zofran Inj) 4 mg NOW STAT IV 07/22/17 18:34 07/22/17 18:39 DC 07/22/17 19:35 4 MG Sodium Chloride 1,000 ml @ 999 mls/hr Q1H1M STAT IV 07/22/17 18:34 07/22/17 19:34 DC 07/22/17 19:36 999 MLS/HR Ketorolac Tromethamine (Toradol Inj) 30 mg NOW STAT IV 07/22/17 18:34 07/22/17 18:39 DC 07/22/17 19:35 30 MG Hydromorphone HCl (Dilaudid Inj) 1 mg Q30M PRN IV 07/22/17 18:45 08/05/17 18:44 07/22/17 19:56 1 MG Ceftriaxone Sodium (Rocephin Inj) 1 gm NOW STAT IV 07/22/17 18:34 07/22/17 18:39 DC 07/22/17 19:35 1 GM ED Course 1830: The patient was evaluated in room A02. A complete history and physical exam was performed. 1833: Ordered Rocephin Inj 1gm IV, Toradol Inj 30 mg IV, Sodium Chloride 1000 ml @ 999 mls/hr IV, Zofran Inj 4mg IV 1844: Ordered Hydromorphone HCl 1 mg IV 1850: I discussed the patient's case with Dr. Barbour, Urology. He suggested a medical admission for pain control. He notes the patient will not have another stent placed. 1952: I discussed the patient's case with the [facility] Hospitalist Service. The patient will be evaluated for further management and care. 2001: Upon reexamination the patient is resting comfortably and feeling better. I discussed results and treatment plan with the patient. She verbalizes agreement and understanding. The patient will be evaluated by [facility] Hospitalist for further management. Medical Decision The patient is a 51 year old female who presents to the ED with complaints of constant, severe, left flank pain. Differential diagnoses considered include hydronephrosis, UTI, pyelonephritis, ureteral irritation, renal stone, intraabdominal bleeding, renal hematoma, electrolyte imbalance, anemia, .and renal failure. There is no leukocytosis. The patient does have a mild anemia but this is baseline looking back at previous testing. No significant electrolyte abnormality or kidney failure. Urinalysis shows evidence for inflammation and/ or infection, urine culture has been ordered and is pending. Abdominal and pelvis CT shows some inflammation to the left ureter consistent with the recent stent placement, no significant hydronephrosis, no ureteral stone seen. The patient presents with left flank pain. She has had a recent ureteral stent on the left side. This is her third visit in around 24 hours for persistent pain. She received IV saline, IV Toradol, IV Dilaudid and IV ceftriaxone. She was given IV Zofran. I spoke with urology, I do think a hospital stay is warranted. I spoke to the patient and case management. Patient needs pain control, symptom control and urologic follow-up. She is failing outpatient treatment. I did speak with the on-call hospitalist and we discussed the case. Medication Reconcilliation Current Medication List: was personally reviewed by me Blood Pressure Screening Patient's blood pressure: Elevated blood pressure Blood pressure disposition: Elevated BP felt to be situational Consults Time Called: 1842 Consulting Physician: Dr. Barbour, Urology Returned Call: 1850 I discussed the patients case with Dr. Barbour, Urology. He suggested a medical admission for pain control. He notes the patient will not have another stent placed. Additional Consults: Time Called: 1944 Consulted Physician: [facility] Hospitalist Service Returned Call: 1952 Additional Comments: I discussed the patient's case with the [facility] Hospitalist Service. The patient will be evaluated for further management and care. Impression Primary Impression: Ureteral colic Additional Impressions: Left flank pain Failure of outpatient treatment Scribe Attestation The scribe's documentation has been prepared under my direction and personally reviewed by me in its entirety. I confirm that the note above accurately reflects all work, treatment, procedures, and medical decision making performed by me. Departure Information Dispostion Being Evaluated By Hospitalist Referrals No Doctor, Assigned (PCP) Patient Instructions My [facility] Problem Qualifiers
[2017-07-22 19:02] LABS: BASO % 0.2 %; BASO ABS # 0.01 K/uL (0-0.2); EOS % 1.5 %; HEMATOCRIT 31.6 % (37-47); HEMOGLOBIN 9.8 g/dL (12.0-16.0); IG# 0.02 K/uL (0.00-0.02); LYMPH % 28.4 %; LYMPH ABS # 1.85 K/uL (1.2-3.4); MEAN CELL VOLUME 97.2 fL (80-100); MEAN CORPUSCULAR HEMOGLOBIN 30.2 pg (25-34); MEAN PLATELET VOLUME 9.3 fL (7.4-10.4); MONO % 8.3 %; MONO ABS # 0.54 K/uL (0.11-0.59); NEUT % 61.3 %; NEUT ABS # 3.99 K/uL (1.4-6.5); PLATELET COUNT 137 K/uL (130-400); RED CELL DISTRIBUTION WIDTH CV 15.3 % (11.5-14.5); RED CELL DISTRIBUTION WIDTH SD 54.5 fL (36.4-46.3); WHITE BLOOD COUNT 6.51 K/uL (4.8-10.8)
[2017-07-22] MEDS ORDERED: CYM60 PO (19:07)
[2017-07-22] MEDS ORDERED: LXP/20 PO (19:07)
[2017-07-22] MEDS ORDERED: INSDGIPEN SQ (19:09)
[2017-07-22] MEDS ORDERED: CARV12.52 PO (19:15)
[2017-07-22 19:18] LABS: CALCIUM 8.3 mg/dl (8.5-10.1); CREATININE 0.92 mg/dl (0.60-1.20); POTASSIUM 3.5 mmol/L (3.5-5.1)
--- NOTE | 2017-07-22 19:26 | DIAGNOSTIC IMAGING REPORT ---
CT SCAN OF THE ABDOMEN AND PELVIS WITHOUT IV CONTRAST CLINICAL HISTORY: Flank pain. Hematuria. COMPARISON STUDY: Abdominal CT dated 06/25/2017. TECHNIQUE: CT scan of the abdomen and pelvis is performed from the lung bases to the proximal femora. Images are reviewed in the axial, sagittal, and coronal planes. IV contrast was not administered for this examination as per the referring clinician. A dose lowering technique was utilized adhering to the principles of ALARA. The examination is degraded by large body habitus, and by streak artifact from the body wall abutting the CT gantry. CT DOSE: 1964.07 mGy.cm FINDINGS: Lung bases: The heart is normal in size and without pericardial effusion. The lung bases are clear. There is a small hiatal hernia. Liver: The unenhanced liver is cirrhotic in morphology and heterogeneous in attenuation. There is hypertrophy of the left lobe and caudate as well as nodularity of the surface contour. There is no intrahepatic biliary ductal dilatation. Gallbladder: Surgically absent noting clips in the gallbladder fossa. Spleen: The spleen is enlarged, measuring 17.2 cm in length. Pancreas: The unenhanced pancreas is markedly atrophic and grossly unremarkable. Adrenal glands: Thickening of the left adrenal gland is similar to previous. The right adrenal gland is normal in appearance. Kidneys: The unenhanced kidneys demonstrate mild cortical atrophy and are without hydronephrosis. There are no renal calculi identified. A ureteral stent has been removed from previous. There is no evidence of contour deforming renal mass lesion. There is left-sided perinephric and periureteric stranding. Abdominal vasculature: The abdominal aorta is normal in course and caliber noting moderate atherosclerotic calcification. Bowel: There are scattered colonic diverticula without CT evidence of acute diverticulitis. No bowel obstruction is seen. The appendix is not identified and reported surgically absent. Peritoneum: There is no intraperitoneal free air or abdominal ascites. Postoperative change is noted in the ventral abdominal wall. Lymphadenopathy: Prominent lymph nodes in the uziel hepatis are unchanged and likely related to chronic liver disease. Shotty retroperitoneal lymph nodes are also identified. Pelvic viscera: The bladder is decompressed and not well evaluated. A small focus of gas is present within the bladder lumen. The uterus is surgically absent. No adnexal lesion is seen. Skeletal structures: The skeletal structures are osteopenic. There is moderate lumbosacral spondylosis. No lytic or blastic lesions are seen. Soft tissues: There is mild body wall edema. IMPRESSION: 1. No renal calculi are identified and there is no hydronephrosis. 2. A left ureteral stent has been removed from previous. Asymmetric left-sided perinephric and periureteric stranding are identified. This is nonspecific and may be related to urinary tract infection. Correlation with clinical findings and urinalysis will be required. 3. The bladder is decompressed and not well evaluated. A small focus of gas is present within the bladder lumen. This may be related to infection or recent instrumentation. Again, correlation with clinical findings and urinalysis will be required. 4. Cirrhotic liver morphology. 5. Splenomegaly. 6. Additional findings as above. Electronically signed by: Juan Doran M.D. 07/22/2017 7:25 PM Dictated Date/Time: 07/22/2017 7:15 PM
[2017-07-22] MEDS ORDERED: HYDROmorphone INJ 1 MG/ML SYR ONE (19:54)
[2017-07-22] MEDS ORDERED: SYN200 PO (20:02)
[2017-07-22] MEDS ORDERED: GLUCAGON FOR INJ 1 MG VIAL SQ PRN (20:30)
[2017-07-22] MEDS ORDERED: DEXTROSE 50% 50 ML SYR IV PRN (20:30)
[2017-07-22] MEDS ORDERED: MAGNESIUM HYDROXIDE SUSP 30 ML UDC PO PRN (20:30)
[2017-07-22] MEDS ORDERED: POLYETHYLENE (MIRALAX) 17 GM PACK PO PRN (20:30)
[2017-07-22] MEDS ORDERED: GLUCOSE 40% GEL 15 GM TUBE PO PRN (20:30)
[2017-07-22] MEDS ORDERED: GLUCOSE 10 TABS/TUBE PO PRN (20:30)
[2017-07-22] MEDS ORDERED: ALUMINUM/MAGNESIUM/SIMETH (MAALOX MAX) 30 ML UDC PO PRN (20:30)
[2017-07-22] MEDS ORDERED: ONDANSETRON INJ 2 MG/ML 2 ML VIAL IV PRN (20:30)
[2017-07-22] MEDS ORDERED: NVLGI/PEN SC (20:31)
[2017-07-22] MEDS ORDERED: OXGN (20:37)
[2017-07-22] MEDS ORDERED: ALBUTEROL HFA 8 GM INHALER INH PRN (20:45)
[2017-07-22] MEDS ORDERED: ALBUT/IPRATROP 3MG/0.5MG NEB 3 ML VIAL INH ONE (21:04)
--- NOTE | 2017-07-22 21:10 | History and Physical ---
History & Physical Date & Time of Service: Jul 22, 2017 at 20:45 Chief Complaint: Post Op Pain Primary Care Physician: No Doctor, Assigned History of Present Illness Source: patient, clinic records, hospital records This is a 51 y/o female with a history of HTN, HLD, DM II with neuropathy, asthma, h/o DVT/PE on Xarelto, cirrhosis, migraine, hypothyroidism, depression and GERD who presented to the ED on 07/22 with left flank pain. The patient states she had a cystoscopy with left ureteral stent exchange and lithotripsy yesterday with Dr. Raya. Since the procedure she has been having severe left flank pain. She describes the pain as a sharp 10/10 pain currently that radiates to her back with associated shortness of breath. She states the pain is worse with movement/walking. She denies any alleviating factors. She notes associated nausea and dry heaves as well as decreased appetite. She denies any fevers but reports chills. She notes that she "urinated out" her new stent yesterday as well. She has had hematuria and dysuria since the procedure, but these are improving compared to yesterday. The patient denies fevers, sweats, chest pain, palpitations, claudication, cough, wheezing, vomiting, urinary retention, paralysis, weakness, numbness and tingling. Past Medical/Surgical History Medical Problems: (1) Abdominal contusion (2) Abdominal pain (3) Abdominal pain (4) Abdominal pain (5) Abdominal wall cellulitis (6) Abdominal wall pain (7) Acute abdominal pain (8) Acute exacerbation of chronic low back pain (9) Acute flank pain (10) Acute generalized abdominal pain (11) Acute generalized abdominal pain (12) Acute hypokalemia (13) Acute renal failure syndrome (14) Anasarca (15) Anemia (16) Ankle pain (17) Anxiety (18) Asthma (19) Atrial fibrillation by electrocardiogram (20) Atypical syncope (21) Back pain (22) Back pain (23) Back pain (24) Back pain (25) Back pain (26) Back pain (27) Benign hypertension (28) Bipolar disorder (29) Bladder pain (30) Bowel obstruction (31) Cauda equina compression (32) Cauda equina compression (33) Cellulitis (34) CELLULITIS ABDOMEN (35) Cellulitis and abscess of trunk (36) Chest pain, atypical (37) Chronic abdominal pain (38) Chronic pain (39) Chronic pain (40) Cirrhosis (41) Closed head injury (42) Contusion of ankle (43) Contusion of left foot (44) Contusion of left knee (45) Contusion of multiple sites (46) Contusion of periorbital region, left (47) Degenerative joint disease of spine (48) Dehydration (49) Dehydration (50) Depression (51) Diabetes mellitus type 2 (52) Diabetes mellitus with hyperglycemia (53) Diabetes mellitus with hyperglycemia (54) DM (diabetes mellitus screen) (55) Drug-seeking behavior (56) Drug-seeking behavior (57) DVT (deep venous thrombosis) (58) Dyspnea (59) Exacerbation of chronic back pain (60) Failure to thrive (61) Failure to thrive in adult (62) Fall (63) Flank pain (64) Fracture of fourth metatarsal bone of left foot (65) Gastritis (66) Gastroesophageal reflux disease (67) GI bleed (68) Headache (69) Headache (70) Headache (71) Hematuria (72) Hepatic encephalopathy (73) Hernia of abdominal wall (74) Hyperammonemia (75) Hyperglycemia (76) Hypoglycemia (77) Hypokalemia (78) Hypokalemia (79) Hypokalemia (80) Hypokalemia (81) Hypothyroid (82) Hypothyroidism (83) Hypothyroidism (84) Hypoxia (85) Incarcerated ventral hernia (86) Incisional irritation (87) Incisional pain (88) Inguinal lymphadenopathy (89) Insomnia (90) Insulin dependent type 2 diabetes mellitus, uncontrolled (91) Jaw pain (92) Kidney stone (93) Kidney stone (94) Kidney stone on left side (95) Kidney stone on left side (96) Left flank pain (97) Left flank pain (98) Left flank pain (99) Left low back pain (100) USP (current) use of insulin (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 (102) LUMBAGO (103) Medical non-compliance (104) Medically noncompliant (105) Migraine (106) Migraine (107) Morbid obesity (108) Morbid obesity (109) Morbid obesity (110) Morbid obesity with BMI of 60.0-69.9, adult (111) Morbid obesity with BMI of 60.0-69.9, adult (112) Noncompliance by refusing service (113) Noncompliance with medication regimen (114) Obesity (115) Obstructive sleep apnea (116) Pain due to ureteral stent (117) Pain due to ureteral stent (118) Pain, dental (119) Periumbilical discomfort (120) Poorly controlled diabetes mellitus (121) Post-op pain (122) Post-operative pain (123) Pyelonephritis (124) Rectal bleeding (125) Renal colic (126) Renal colic on right side (127) Renal insufficiency (128) Renal insufficiency (129) Retained ureteral stent (130) Right flank pain (131) Right sided abdominal pain (132) Right-sided chest wall pain (133) Right-sided chest wall pain (134) SBO (small bowel obstruction) (135) Sepsis (136) Septic shock (137) Seroma, postoperative (138) Severe sepsis (139) Shoulder pain (140) Sleep apnea (141) Slurring of speech (142) SOB (shortness of breath) (143) Spinal stenosis (144) Splenomegaly, not elsewhere classified (145) Suprapubic pain (146) Supratherapeutic INR (147) Supraumbilical hernia (148) Syncope (149) Syncope (150) Ureteral stent retained (151) Urinary tract infection (152) Urinary tract obstruction due to kidney stone (153) UTI (urinary tract infection) (154) UTI (urinary tract infection) (155) Vaginal candidiasis (156) Weakness (157) Weakness on left side of face (158) Weight gain, abnormal Surgical Problems: (1) H/O hernia repair (2) H/O knee surgery (3) H/O: hysterectomy (4) History of cholecystectomy (5) History of urethral stent (6) Hx of appendectomy Family History Cancer Diabetes mellitus Gallbladder disease Heart disease Hypertension Lung disease Social History Smoking Status: Current Every Day Smoker (04/28-04/26 ppd) Smokeless Tobacco Use: No Alcohol Use: none Drug Use: none Marital Status: Housing status: lives with roommate (roommate/caregiver) Occupational Status: unemployed, disabled Immunizations History of Influenza Vaccine: No Influenza Vaccine Date: Feb 20, 2011 History of Tetanus Vaccine?: 2009 Tetanus Immunization Date: Dec 21, 2005 History of Pneumococcal: Yes Pneumococcal Date: Feb 03, 2012 History of Hepatitis B Vaccine: No Allergies Coded Allergies: Iodinated Diagnostic Agents (Verified Allergy, Intermediate, hives-PT DENIES SEE NOTE, 07/21/17) Per patient she has had it since without problem (01/25/16 Ioversal given with no pretreats and no mention of rxn; also given Ioversal 11/26/06 with pretreats) Adhesives (Verified Allergy, Mild, RED RASH CAUSED BY PAPER TAPE, 07/21/17) Alprazolam (Verified Allergy, Unknown, MAKES LOOPY,DO AND SAY SILLY THINGS , 07/21/17) Haloperidol (Verified Allergy, Unknown, nervous and anxious, 07/21/17) Metformin (Verified Allergy, Unknown, HANDS FEET FACE NUMB, 07/21/17) Morphine (Verified Allergy, Unknown, SWELLING LEGS AND FEET, 07/21/17) Vancomycin (Verified Adverse Reaction, Severe, renal failure, required dialysis x 3 MONTHS, 07/21/17) Methylparaben (Verified Adverse Reaction, Intermediate, FLUID RETENTION, ) Oxymorphone (Verified Adverse Reaction, Intermediate, FLUID RETENTION, ) Gabapentin (Verified Adverse Reaction, Mild, Aphasia/Speech impairments, ) Sulfa Antibiotics (Verified Adverse Reaction, Mild, GI SYMPTOMS, 07/21/17) Acetaminophen (Verified Adverse Reaction, Unknown, Liver problems., ) Codeine (Verified Adverse Reaction, Unknown, UPSET STOMACH, 07/21/17) Pregabalin (Verified Adverse Reaction, Unknown, Aphasia/Speech impairments , 07/21/17) Uncoded Allergies: PAPER TAPE (Allergy, Severe, rash, 07/21/17) Home Medications Scheduled Carvedilol (Coreg), 12.5 MG PO BID Cimetidine (Cimetidine), 300 MG PO QPM Duloxetine HCl (Duloxetine HCl), 60 MG PO BID Escitalopram Oxalate (Escitalopram Oxalate), 20 MG PO QPM Furosemide (Lasix), 40 MG PO QAM Insulin Aspart (Novolog Flexpen), 1 DOSE SC TIDM Insulin Glargine (Lantus Solostar), 77 UNITS SQ BID Levothyroxine Sodium (Synthroid), 200 MCG PO QAM Ranitidine Hcl (Zantac), 300 MG PO HS Rivaroxaban (Xarelto), 20 MG PO QPM Scheduled PRN Albuterol Hfa (Ventolin Hfa), 2 PUFFS INH Q6H PRN for SOB/Wheezing Home O2 Therapy (Oxygen), 3 LITERS NA UD PRN for Shortness of Breath Review of Systems Constitutional: +Chills. No fever, No sweats Eyes: No worsening of vision, No eye pain, No diplopia ENT: No hearing loss, No nasal symptoms, No trouble swallowing Respiratory: +SOB w/pain. No cough, No wheezing Cardiovascular: No chest pain, No claudication, No palpitations Abdomen: +Left flank pain, nausea. No vomiting Musculoskeletal: No joint pain, No muscle pain, No swelling Genitourinary - Female: +Dysuria, hematuria. No urinary retention Neurologic: No paralysis, No weakness, No numbness/tingling Integumentary: No rash, No itch, No color change Physical Exam Vital Signs Date Time Temp Pulse Resp B/P (MAP) Pulse Ox O2 Delivery O2 Flow Rate FiO2 07/22/17 18:18 36.8 67 20 141/70 98 Room Air General appearance: +Morbidly obese. Well-developed, well-nourished, no apparent distress Head: Normocephalic, atraumatic Eyes: Normal inspection, PERRL, EOMI ENT: Normal ENT inspection, hearing grossly normal, pharynx normal Neck: Supple, no JVD, trachea midline Respiratory/Chest: +Mild wheezing. Normal breath sounds, no respiratory distress Cardiovascular: Regular rate & rhythm, no gallop, no murmur Abdomen/GI: +Diffusely TTP, most marked in LLQ and left flank. Left CVA tenderness. Normal bowel sounds, soft Extremities/Musculoskeletal: Normal inspection, no calf tenderness, no pedal edema Neurological/Psych: Alert, normal mood/affect, oriented x 3 Skin: Normal color, warm/dry, no rash Diagnostics Laboratory Results Results Past 24 Hours Test 07/22/17 18:47 Range/Units White Blood Count 6.51 4.8-10.8 K/uL Red Blood Count 3.25 4.2-5.4 M/uL Hemoglobin 9.8 12.0-16.0 g/dL Hematocrit 31.6 37-47 % Mean Corpuscular Volume 97.2 80-100 fL Mean Corpuscular Hemoglobin 30.2 25-34 pg Mean Corpuscular Hemoglobin Concent 31.0 32-36 g/dl Platelet Count 137 130-400 K/uL Mean Platelet Volume 9.3 7.4-10.4 fL Neutrophils (%) (Auto) 61.3 % Lymphocytes (%) (Auto) 28.4 % Monocytes (%) (Auto) 8.3 % Eosinophils (%) (Auto) 1.5 % Basophils (%) (Auto) 0.2 % Neutrophils # (Auto) 3.99 1.4-6.5 K/uL Lymphocytes # (Auto) 1.85 1.2-3.4 K/uL Monocytes # (Auto) 0.54 0.11-0.59 K/uL Eosinophils # (Auto) 0.10 0-0.5 K/uL Basophils # (Auto) 0.01 0-0.2 K/uL RDW Standard Deviation 54.5 36.4-46.3 fL RDW Coefficient of Variation 15.3 11.5-14.5 % Immature Granulocyte % (Auto) 0.3 % Immature Granulocyte # (Auto) 0.02 0.00-0.02 K/uL Urine Color YELLOW Urine Appearance CLOUDY CLEAR Urine pH 6.0 4.5-7.5 Urine Specific [place] 1.018 1.000-1.030 Urine Protein 1+ NEG Urine Glucose (UA) NEG NEG Urine Ketones NEG NEG Urine Occult Blood 3+ NEG Urine Nitrite NEG NEG Urine Bilirubin NEG NEG Urine Urobilinogen NEG NEG Urine Leukocyte Esterase MODERATE NEG Urine WBC (Auto) >30 0-5 /hpf Urine RBC (Auto) >30 0-4 /hpf Urine Hyaline Casts (Auto) 10-30 0-5 /lpf Urine Epithelial Cells (Auto) >30 0-5 /lpf Urine Bacteria (Auto) NEG NEG Urine Renal Epithelial Cells 10-20 0-5 /lpf Sodium Level 138 136-145 mmol/L Potassium Level 3.5 3.5-5.1 mmol/L Chloride Level 106 98-107 mmol/L Carbon Dioxide Level 28 21-32 mmol/L Anion Gap 4.0 3-11 mmol/L Blood Urea Nitrogen 14 7-18 mg/dl Creatinine 0.92 0.60-1.20 mg/dl Est Creatinine Clear Calc Drug Dose 105.8 ml/min Estimated GFR () 82.4 Estimated GFR (Non- 71.1 BUN/Creatinine Ratio 15.1 10-20 Random Glucose 175 70-99 mg/dl Calcium Level 8.3 8.5-10.1 mg/dl Microbiology Results 07/22/17 Urine Culture, Herminia Batch Pending Diagnostic Radiology Reviewed the following studies and agree with interpretation as follows: CT SCAN OF THE ABDOMEN AND PELVIS WITHOUT IV CONTRAST CLINICAL HISTORY: Flank pain. Hematuria. COMPARISON STUDY: Abdominal CT dated 06/25/2017. TECHNIQUE: CT scan of the abdomen and pelvis is performed from the lung bases to the proximal femora. Images are reviewed in the axial, sagittal, and coronal planes. IV contrast was not administered for this examination as per the referring clinician. A dose lowering technique was utilized adhering to the principles of ALARA. The examination is degraded by large body habitus, and by streak artifact from the body wall abutting the CT gantry. CT DOSE: 1964.07 mGy.cm FINDINGS: Lung bases: The heart is normal in size and without pericardial effusion. The lung bases are clear. There is a small hiatal hernia. Liver: The unenhanced liver is cirrhotic in morphology and heterogeneous in attenuation. There is hypertrophy of the left lobe and caudate as well as nodularity of the surface contour. There is no intrahepatic biliary ductal dilatation. Gallbladder: Surgically absent noting clips in the gallbladder fossa. Spleen: The spleen is enlarged, measuring 17.2 cm in length. Pancreas: The unenhanced pancreas is markedly atrophic and grossly unremarkable. Adrenal glands: Thickening of the left adrenal gland is similar to previous. The right adrenal gland is normal in appearance. Kidneys: The unenhanced kidneys demonstrate mild cortical atrophy and are without hydronephrosis. There are no renal calculi identified. A ureteral stent has been removed from previous. There is no evidence of contour deforming renal mass lesion. There is left-sided perinephric and periureteric stranding. Abdominal vasculature: The abdominal aorta is normal in course and caliber noting moderate atherosclerotic calcification. Bowel: There are scattered colonic diverticula without CT evidence of acute diverticulitis. No bowel obstruction is seen. The appendix is not identified and reported surgically absent. Peritoneum: There is no intraperitoneal free air or abdominal ascites. Postoperative change is noted in the ventral abdominal wall. Lymphadenopathy: Prominent lymph nodes in the uziel hepatis are unchanged and likely related to chronic liver disease. Shotty retroperitoneal lymph nodes are also identified. Pelvic viscera: The bladder is decompressed and not well evaluated. A small focus of gas is present within the bladder lumen. The uterus is surgically absent. No adnexal lesion is seen. Skeletal structures: The skeletal structures are osteopenic. There is moderate lumbosacral spondylosis. No lytic or blastic lesions are seen. Soft tissues: There is mild body wall edema. IMPRESSION: 1. No renal calculi are identified and there is no hydronephrosis. 2. A left ureteral stent has been removed from previous. Asymmetric left-sided perinephric and periureteric stranding are identified. This is nonspecific and may be related to urinary tract infection. Correlation with clinical findings and urinalysis will be required. 3. The bladder is decompressed and not well evaluated. A small focus of gas is present within the bladder lumen. This may be related to infection or recent instrumentation. Again, correlation with clinical findings and urinalysis will be required. 4. Cirrhotic liver morphology. 5. Splenomegaly. 6. Additional findings as above. Impression Assessment and Plan 51 y/o female with a history of HTN, HLD, DM II with neuropathy, asthma, h/o DVT /PE on Xarelto, cirrhosis, migraine, hypothyroidism, depression and GERD who presented to the ED on 07/22 with left flank pain. Pt arrived to ED afebrile, VSS. CT of abdomen/pelvis shows left perinephric and left periureteric stranding but is negative for hydronephrosis. Hgb roughly around baseline. Chemistries grossly unremarkable. UA positive for blood, high epithelial cell count, negative bacteria. Urine culture pending. Pt received Toradol, Dilaudid in ED as well as 1L NSS bolus and Zofran. Left flank pain s/p cystoscopy, left ureteral stent exchange and lithotripsy -Admit to med/surg, hemodynamically stable -Consult urology. No new stent will be placed -Hydrate with NSS + 20 mEq KCl at 100 cc/hr x 2 bags. Carefully monitor fluid status, pt has h/o fluid overload. Hold Lasix for now while running IVF -Dilaudid 1 mg IV q3h prn pain -Hold off on abx for now, no s/s infection. Hematuria/dysuria may be due to procedure alone Hematuria--improving -Continue to monitor, hgb around baseline -Hold Xarelto for now to ensure continues to improve HTN, HLD--stable -Continue Coreg 12.5 mg PO BID DM II w/neuropathy--last HgbA1c 8.6 on 04/18/17 -Lantus 77 units SC BID -Insulin sliding scale -Check BSGs q ac and qhs Asthma--wheezing on exam, reports SOB related to pain -DuoNebs QIDR prn SOB/wheezing, one dose now H/o DVT/PE on chronic Xarelto -Hold for now due to hematuria Hypothyroidism -Continue Synthroid 200 mcg PO qd Depression -Continue Cymbalta 60 mg PO BID, Lexapro 20 mg PO hs GERD -Continue cimetidine 300 mg PO hs and Zantac 300 mg PO hs DVT prophylaxis -Hold chemical ppx due to hematuria -GONZÁLEZ mayer and SCDs Code Status -Level I, FULL RESUSCITATION STATUS. No prolonged measures Resuscitation Status VTE Prophylaxis Will order VTE Prophylaxis: Yes
[2017-07-22] MEDS ORDERED: VNTHFA/IN INH (21:13)
[2017-07-22] MEDS ORDERED: ALBUT/IPRATROP 3MG/0.5MG NEB 3 ML VIAL INH PRN (21:15)
[2017-07-22] MEDS ORDERED: IV FLUIDS COMPLETED PRN (21:15)
[2017-07-22 22:10] VITALS: BP 127/80; PULSE 76; TEMP 36.8; O2SAT 97
[2017-07-22] MEDS ORDERED: [UNRECOGNIZED DRUG - CODE] PO (22:52)
[2017-07-22] MEDS ORDERED: RANI300T PO (22:52)
[2017-07-22] MEDS: HYDROmorphone INJ 2 MG/ML SYR/VIAL IV PRN (22:55)
[2017-07-22 22:58] VITALS: BP 124/81; PULSE 59; TEMP 36.8; O2SAT 96
[2017-07-22] MEDS: NSS + 20MEQ KCL 1000ML 1,000 ML IV SCH (23:12)
[2017-07-22] MEDS: ESCITALOPRAM OXALATE 20 MG TAB PO SCH (23:54)
[2017-07-22] MEDS: DULOXETINE HCL 60 MG CAP PO SCH (23:54)
[2017-07-22] MEDS: RANITIDINE HCL 150 MG TAB PO SCH (23:55)
[2017-07-22] MEDS: CARVEDILOL 12.5 MG TAB PO SCH (23:55)
[2017-07-22 23:57] VITALS: BP 128/64; PULSE 67
[2017-07-23] MEDS: INSULIN ASPART 100 UNITS/ML 3 ML PEN SC SCH ×5 (00:28→21:00)
[2017-07-23] MEDS: INSULIN GLARGINE SQ SCH ×3 (00:29→21:27)
[2017-07-23] MEDS: CIMETIDINE 300 MG TAB PO SCH ×2 (00:32→21:18)
[2017-07-23 01:09] VITALS: BP 128/64; PULSE 67; TEMP 36.8; O2SAT 93; Ht 162.6 cm; Wt 156.5 kg
[2017-07-23] MEDS: HYDROmorphone INJ 2 MG/ML SYR/VIAL IV PRN ×4 (02:08→12:07)
[2017-07-23] MEDS: LEVOTHYROXINE 200 MCG TAB PO SCH (05:15)
[2017-07-23 06:20] LABS: HEMATOCRIT 29.5 % (37-47); HEMOGLOBIN 9.2 g/dL (12.0-16.0); MEAN CORPUSCULAR HEMOGLOBIN 30.6 pg (25-34); MEAN CORPUSCULAR HGB CONC 31.2 g/dl (32-36); MEAN PLATELET VOLUME 9.1 fL (7.4-10.4); PLATELET COUNT 121 K/uL (130-400); RED CELL DISTRIBUTION WIDTH CV 15.5 % (11.5-14.5); WHITE BLOOD COUNT 5.14 K/uL (4.8-10.8)
[2017-07-23 07:02] LABS: CALCIUM 7.9 mg/dl (8.5-10.1); CREATININE 0.91 mg/dl (0.60-1.20); POTASSIUM 3.7 mmol/L (3.5-5.1)
--- NOTE | 2017-07-23 07:52 | Family Medicine Progress Note ---
Progress Note Date of Service Jul 23, 2017. Subjective Pt evaluation today including: conversation w/ patient, physical exam, chart review, lab review Pain: No Voiding: no incontinence Patient states pain was 10/10 on arrival has improved to 7/10 Patient states chronic history of back pain; sees outside pain management provider; last refilled her prescriptions on 06/27 States that her current discomfort is both in flank, suprapubic, vaginal and she also has dysuria, she denies any vaginal discharge No concerns per nursing Additional Comments: A 10 point review of systems was negative unless stated above. Medications Date Time Temp Pulse Resp B/P (MAP) Pulse Ox O2 Delivery O2 Flow Rate FiO2 07/23/17 08:44 36.5 54 18 101/63 (76) 93 Room Air 07/23/17 08:30 Room Air 07/23/17 01:09 36.8 67 14 128/64 93 Room Air 07/22/17 23:57 67 128/64 (85) 07/22/17 22:58 36.8 59 14 124/81 (95) 96 Room Air 07/22/17 22:34 Room Air 07/22/17 22:10 36.8 76 16 127/80 (96) 97 Room Air 07/22/17 21:30 98 07/22/17 21:30 70 20 148/80 98 Room Air 07/22/17 18:18 36.8 67 20 141/70 98 Room Air Objective Vital Signs Date Time Temp Pulse Resp B/P (MAP) Pulse Ox O2 Delivery O2 Flow Rate FiO2 07/23/17 08:44 36.5 54 18 101/63 (76) 93 Room Air 07/23/17 08:30 Room Air 07/23/17 01:09 36.8 67 14 128/64 93 Room Air 07/22/17 23:57 67 128/64 (85) 07/22/17 22:58 36.8 59 14 124/81 (95) 96 Room Air 07/22/17 22:34 Room Air 07/22/17 22:10 36.8 76 16 127/80 (96) 97 Room Air 07/22/17 21:30 98 07/22/17 21:30 70 20 148/80 98 Room Air 07/22/17 18:18 36.8 67 20 141/70 98 Room Air Physical Exam General Appearance: WD/WN, no apparent distress, + obese (morbid) Eyes: normal inspection, EOMI ENT: hearing grossly normal, pharynx normal Neck: supple, no adenopathy, no JVD Respiratory/Chest: lungs clear, no respiratory distress Cardiovascular: regular rate, rhythm, no gallop, no murmur Abdomen: + abnormal bowel sounds (cannot be heard due to body habitus), + tenderness (mild right anterior flank tenderness; no CVA tenderness) Extremities: non-tender, no pedal edema Neurologic/Psychiatric: alert, normal mood/affect, oriented x 3 Skin: normal color, warm/dry, no rash Lymphatic: no adenopathy Laboratory Results Last 24 Hours Test 07/22/17 18:47 07/23/17 00:15 07/23/17 06:09 07/23/17 08:06 White Blood Count 6.51 K/uL 5.14 K/uL Red Blood Count 3.25 M/uL 3.01 M/uL Hemoglobin 9.8 g/dL 9.2 g/dL Hematocrit 31.6 % 29.5 % Mean Corpuscular Volume 97.2 fL 98.0 fL Mean Corpuscular Hemoglobin 30.2 pg 30.6 pg Mean Corpuscular Hemoglobin Concent 31.0 g/dl 31.2 g/dl Platelet Count 137 K/uL 121 K/uL Mean Platelet Volume 9.3 fL 9.1 fL Neutrophils (%) (Auto) 61.3 % Lymphocytes (%) (Auto) 28.4 % Monocytes (%) (Auto) 8.3 % Eosinophils (%) (Auto) 1.5 % Basophils (%) (Auto) 0.2 % Neutrophils # (Auto) 3.99 K/uL Lymphocytes # (Auto) 1.85 K/uL Monocytes # (Auto) 0.54 K/uL Eosinophils # (Auto) 0.10 K/uL Basophils # (Auto) 0.01 K/uL RDW Standard Deviation 54.5 fL 55.0 fL RDW Coefficient of Variation 15.3 % 15.5 % Immature Granulocyte % (Auto) 0.3 % Immature Granulocyte # (Auto) 0.02 K/uL Urine Color YELLOW Urine Appearance CLOUDY Urine pH 6.0 Urine Specific [place] 1.018 Urine Protein 1+ Urine Glucose (UA) NEG Urine Ketones NEG Urine Occult Blood 3+ Urine Nitrite NEG Urine Bilirubin NEG Urine Urobilinogen NEG Urine Leukocyte Esterase MODERATE Urine WBC (Auto) >30 /hpf Urine RBC (Auto) >30 /hpf Urine Hyaline Casts (Auto) 10-30 /lpf Urine Epithelial Cells (Auto) >30 /lpf Urine Bacteria (Auto) NEG Urine Renal Epithelial Cells 10-20 /lpf Sodium Level 138 mmol/L 140 mmol/L Potassium Level 3.5 mmol/L 3.7 mmol/L Chloride Level 106 mmol/L 108 mmol/L Carbon Dioxide Level 28 mmol/L 26 mmol/L Anion Gap 4.0 mmol/L 6.0 mmol/L Blood Urea Nitrogen 14 mg/dl 14 mg/dl Creatinine 0.92 mg/dl 0.91 mg/dl Est Creatinine Clear Calc Drug Dose 105.8 ml/min 107.7 ml/min Estimated GFR () 82.4 83.5 Estimated GFR (Non- 71.1 72.0 BUN/Creatinine Ratio 15.1 15.6 Random Glucose 175 mg/dl 151 mg/dl Calcium Level 8.3 mg/dl 7.9 mg/dl Bedside Glucose 193 mg/dl 130 mg/dl Test 07/23/17 12:09 Bedside Glucose 147 mg/dl Assessment and Plan 62 year old female 2 days s/p ureteral stent exchange with lithotripsy, who presents with ongoing post-procedure abdominal pain. Left Flank Pain with hematuria s/p ureteral stent exchange - Done at [facility] - Per records exchanged stent has come out since being placed - Urology consulted; conservative management at this time with outpatient follow -up; recommendations appreciated - Continue hydration NaCl+KCL @ 100 ml/hr; has diet ordered - Will hold Xarelto at this time for reports of hematuria; repeat UA at this this time Bleeding may be related to post-procedure and hx of stones; if negative can do trial on Xarelto - Will start Rocephin for empiric UTI treatment; urine culture pending History of Diabetic Neuropathy on Chronic Opiates - Follows Pain Management service at outside clinic - PDMP query required - Will attempt to back off to PO opiates at this time Hypothyroidism - Continue Levothyroxine Asthma - Albuterol inhaler PRN - Continue PRN Duoneb Type 2 diabetes mellitus - Continue glargine and SSI - BSGs at goal Hypertension - Continue Coreg GERD - Patient on both Cimetidine and Ranitidine - Will need to re-assess GERD SSx; would recommend discontinuation of one of them Depression - Continue Lexapro and Cymbalta Hx DVT PE - Patients Xarelto on hold; low risk due to > 10 yrs since last VTE - Will need to be re-started by PCP at discharge DVT Prophylaxis - SCD Knee, GONZÁLEZ Hose - Hold Pharmacological agents due to reported hematuria Code Status - Level I Full Code Disposition - Med/Surg - OT and PT evaluations Resident Physician Supervision Note: I was present with Dr. Fernandez during the history and exam. I discussed the case with the resident and agree with the findings and plan as documented in the note. Pain seems better controlled at present compared to admission. Agree with empiric antibiotic courage pending urine culture. Documented By: Dominic Escalona Continued [facility] stay due to: inadequate oral pain control Discharge planning: uncertain
[2017-07-23 08:44] VITALS: BP 101/63; PULSE 54; TEMP 36.5; O2SAT 93
[2017-07-23] MEDS: NSS + 20MEQ KCL 1000ML 1,000 ML IV SCH (08:47)
[2017-07-23] MEDS: CARVEDILOL 12.5 MG TAB PO SCH ×3 (09:00→21:17)
[2017-07-23] MEDS: DULOXETINE HCL 60 MG CAP PO SCH ×2 (09:29→21:18)
[2017-07-23] MEDS: NICOTINE 14 MG/24 HR TDSY TD SCH (09:30)
[2017-07-23] MEDS: CEFTRIAXONE SOD INJ 2,000 MG in DEXTROSE 5% 50ML 50 ML IV SCH (09:31)
--- NOTE | 2017-07-23 11:07 | Urology Consultation ---
History General Date of Service: Jul 23, 2017. Primary Care Physician: No Doctor, Assigned Pt seen a urologist before?: Yes If yes, why?: Nephrolithiasis History of Present Illness 51-year-old female 1 day post left ureteroscopy laser lithotripsy basket extraction of stones and stent placement. Unfortunately she pulled the stent out as it was tethered postoperatively. She been to the emergency room several times with complaints of severe flank pain. No fevers or chills. She came back to the emergency again complaining of pain so she was admitted for pain control. CT was done showing no residual stone fragments no hydronephrosis. Today she said the pain is improving. She is voiding without problem Laboratory Current Inpatient Medications Medications (Trade) Dose Ordered Sig/Nelda Route Start Time Stop Time Status Last Admin Dose Admin Al Hydrox/Mg Hydrox/Simethicone (Maalox Max Susp) 15 ml Q4H PRN PO 07/22/17 20:30 08/21/17 20:29 Magnesium Hydroxide (Milk Of Magnesia Susp) 30 ml Q6H PRN PO 07/22/17 20:30 08/21/17 20:29 Polyethylene (Miralax Powder Packet) 17 gm DAILY PRN PO 07/22/17 20:30 08/21/17 20:29 Ondansetron HCl (Zofran Inj) 4 mg Q6H PRN IV 07/22/17 20:30 08/21/17 20:29 Glucose (Glucose 40% Gel) 15-30 GRAMS 15 GRAMS... UD PRN PO 07/22/17 20:30 08/21/17 20:29 Glucose (Glucose Chew Tab) 4-8 Tablets 4 Tabl... UD PRN PO 07/22/17 20:30 08/21/17 20:29 Dextrose (Dextrose 50% 50ML Syringe) 25-50ML OF 50% DW IV FOR... UD PRN IV 07/22/17 20:30 08/21/17 20:29 Glucagon (Glucagon Inj) 1 mg UD PRN SQ 07/22/17 20:30 08/21/17 20:29 Insulin Aspart (novoLOG ASPART) SLIDING SCALE G... ACHS SC 07/22/17 21:00 08/21/17 20:59 07/23/17 09:33 5 UNITS Nicotine (Nicoderm Cq 14MG Patch) 1 patch QAM TD 07/23/17 09:00 08/22/17 08:59 07/23/17 09:30 1 PATCH Miscellaneous (Remove Nicoderm Patch) 1 ea HS N/A 07/22/17 21:00 08/21/17 20:59 Hydromorphone HCl (Dilaudid Inj) 1 mg Q3H PRN IV 07/22/17 20:30 08/05/17 20:29 07/23/17 08:43 1 MG Albuterol (Ventolin Hfa Inhaler) 2 puffs Q6H PRN INH 07/22/17 20:45 08/21/17 20:44 Carvedilol (Coreg Tab) 12.5 mg BID PO 07/22/17 21:00 08/21/17 20:59 07/22/17 23:55 12.5 MG Cimetidine (Tagamet Tab) 300 mg QPM PO 07/22/17 21:00 08/21/17 20:59 07/23/17 00:32 300 MG Duloxetine HCl (Cymbalta Cap) 60 mg BID PO 07/22/17 21:00 08/21/17 20:59 07/23/17 09:29 60 MG Escitalopram Oxalate (Lexapro Tab) 20 mg QPM PO 07/22/17 21:00 08/21/17 20:59 07/22/17 23:54 20 MG Insulin Glargine (Lantus Vial) 77 units BID SQ 07/22/17 21:00 08/21/17 20:59 07/23/17 09:34 77 UNITS Levothyroxine Sodium (Synthroid Tab) 200 mcg DAILYBB PO 07/23/17 06:00 08/22/17 06:59 07/23/17 05:15 200 MCG Ranitidine HCl (zANTac TAB) 150 mg HS PO 07/22/17 21:00 08/21/17 20:59 07/22/17 23:55 150 MG Potassium Chloride/Sodium Chloride 1,000 ml @ 100 mls/hr Q10H IV 07/22/17 22:45 07/23/17 18:44 07/23/17 08:47 100 MLS/HR Miscellaneous (Iv Fluids Completed) 1 ea PRN PRN N/A 07/22/17 21:15 07/22/18 21:14 Albuterol/ Ipratropium (Duoneb) 3 ml QID PRN INH 07/22/17 21:15 08/21/17 21:14 Ceftriaxone Sodium 2000 mg/ Dextrose 70 ml @ 100 mls/hr Q24H IV 07/23/17 10:00 08/02/17 09:59 07/23/17 09:31 100 MLS/HR Last 24 Hours Test 07/22/17 18:47 07/23/17 00:15 07/23/17 06:09 07/23/17 08:06 White Blood Count 6.51 K/uL 5.14 K/uL Red Blood Count 3.25 M/uL 3.01 M/uL Hemoglobin 9.8 g/dL 9.2 g/dL Hematocrit 31.6 % 29.5 % Mean Corpuscular Volume 97.2 fL 98.0 fL Mean Corpuscular Hemoglobin 30.2 pg 30.6 pg Mean Corpuscular Hemoglobin Concent 31.0 g/dl 31.2 g/dl Platelet Count 137 K/uL 121 K/uL Mean Platelet Volume 9.3 fL 9.1 fL Neutrophils (%) (Auto) 61.3 % Lymphocytes (%) (Auto) 28.4 % Monocytes (%) (Auto) 8.3 % Eosinophils (%) (Auto) 1.5 % Basophils (%) (Auto) 0.2 % Neutrophils # (Auto) 3.99 K/uL Lymphocytes # (Auto) 1.85 K/uL Monocytes # (Auto) 0.54 K/uL Eosinophils # (Auto) 0.10 K/uL Basophils # (Auto) 0.01 K/uL RDW Standard Deviation 54.5 fL 55.0 fL RDW Coefficient of Variation 15.3 % 15.5 % Immature Granulocyte % (Auto) 0.3 % Immature Granulocyte # (Auto) 0.02 K/uL Urine Color YELLOW Urine Appearance CLOUDY Urine pH 6.0 Urine Specific [place] 1.018 Urine Protein 1+ Urine Glucose (UA) NEG Urine Ketones NEG Urine Occult Blood 3+ Urine Nitrite NEG Urine Bilirubin NEG Urine Urobilinogen NEG Urine Leukocyte Esterase MODERATE Urine WBC (Auto) >30 /hpf Urine RBC (Auto) >30 /hpf Urine Hyaline Casts (Auto) 10-30 /lpf Urine Epithelial Cells (Auto) >30 /lpf Urine Bacteria (Auto) NEG Urine Renal Epithelial Cells 10-20 /lpf Sodium Level 138 mmol/L 140 mmol/L Potassium Level 3.5 mmol/L 3.7 mmol/L Chloride Level 106 mmol/L 108 mmol/L Carbon Dioxide Level 28 mmol/L 26 mmol/L Anion Gap 4.0 mmol/L 6.0 mmol/L Blood Urea Nitrogen 14 mg/dl 14 mg/dl Creatinine 0.92 mg/dl 0.91 mg/dl Est Creatinine Clear Calc Drug Dose 105.8 ml/min 107.7 ml/min Estimated GFR () 82.4 83.5 Estimated GFR (Non- 71.1 72.0 BUN/Creatinine Ratio 15.1 15.6 Random Glucose 175 mg/dl 151 mg/dl Calcium Level 8.3 mg/dl 7.9 mg/dl Bedside Glucose 193 mg/dl 130 mg/dl Problem List Medical Problems: (1) Abdominal contusion Status: Acute (2) Abdominal wall pain Status: Acute (3) Acute abdominal pain Status: Acute (4) Acute exacerbation of chronic low back pain Status: Acute (5) Acute flank pain Status: Acute (6) Acute generalized abdominal pain Status: Acute (7) Anxiety Status: Acute (8) Asthma Status: Chronic (9) Back pain Status: Acute (10) Back pain Status: Acute (11) Back pain Status: Acute (12) Back pain Status: Acute (13) Back pain Status: Acute (14) Benign hypertension Status: Chronic (15) Bipolar disorder Status: Chronic (16) Cauda equina compression Status: Acute (17) Chronic abdominal pain Status: Acute (18) Chronic pain Status: Chronic (19) Chronic pain Status: Acute (20) Closed head injury Status: Acute (21) Contusion of left foot Status: Acute (22) Contusion of left knee Status: Acute (23) Contusion of multiple sites Status: Acute (24) Degenerative joint disease of spine Status: Chronic (25) Depression Status: Chronic (26) Diabetes mellitus type 2 Status: Chronic (27) Diabetes mellitus with hyperglycemia Status: Acute (28) Diabetes mellitus with hyperglycemia Status: Acute (29) Drug-seeking behavior Status: Chronic (30) Dyspnea Status: Acute (31) Failure of outpatient treatment Status: Acute (32) Failure to thrive Status: Acute (33) Failure to thrive in adult Status: Acute (34) Gastroesophageal reflux disease Status: Chronic (35) Headache Status: Acute (36) Headache Status: Acute (37) Hematuria Status: Acute (38) Hernia of abdominal wall Status: Chronic (39) Hyperammonemia Status: Acute (40) Hypoglycemia Status: Acute (41) Hypothyroidism Status: Acute (42) Hypothyroidism Status: Chronic (43) Insomnia Status: Chronic (44) Insulin dependent type 2 diabetes mellitus, uncontrolled Status: Acute (45) Jaw pain Status: Acute (46) Kidney stone Status: Acute (47) Kidney stone on left side Status: Acute (48) Kidney stone on left side Status: Acute (49) Left flank pain Status: Acute (50) Left flank pain Status: Acute (51) Left flank pain Status: Acute (52) LUMBAGO Status: Chronic (53) Medical non-compliance Status: Acute (54) Migraine Status: Acute (55) Migraine Status: Chronic (56) Morbid obesity Status: Chronic (57) Morbid obesity Status: Chronic (58) Morbid obesity with BMI of 60.0-69.9, adult Status: Acute (59) Noncompliance with medication regimen Status: Acute (60) Obstructive sleep apnea Status: Chronic (61) Pain due to ureteral stent Status: Acute (62) Poorly controlled diabetes mellitus Status: Acute (63) Post-op pain Status: Acute (64) Post-operative pain Status: Acute (65) Retained ureteral stent Status: Acute (66) Right flank pain Status: Acute (67) Right-sided chest wall pain Status: Acute (68) Sepsis Status: Acute (69) Shoulder pain Status: Acute (70) Slurring of speech Status: Acute (71) SOB (shortness of breath) Status: Acute (72) Spinal stenosis Status: Chronic (73) Suprapubic pain Status: Acute (74) Supraumbilical hernia Status: Chronic (75) Syncope Status: Acute (76) Ureteral colic Status: Acute (77) Ureteral stent retained Status: Acute (78) Urinary tract infection Status: Acute (79) Urinary tract obstruction due to kidney stone Status: Acute (80) UTI (urinary tract infection) Status: Acute (81) Vaginal candidiasis Status: Acute (82) Weakness Status: Acute (83) Weakness on left side of face Status: Acute Surgical Problems: (1) H/O hernia repair Status: Chronic Past History asthma, bipolar disorder, deep vein thrombosis, degenerative disc disease, high cholesterol, hypertension, hypothyroidism, migraines, other Past Surgical History: appendectomy, cholecystectomy, hysterectomy, orthopedic surgery, other Family History Cancer Diabetes mellitus Gallbladder disease Heart disease Hypertension Lung disease Social History Hx Tobacco Use In Past Year?: Yes Smoking: other Alcohol: never Drug use: none Marital status: Housing status: lives with roommate (roommate/caregiver) Occupation status: unemployed, disabled Immunizations History of Influenza Vaccine: No Influenza Vaccine Date: Feb 20, 2011 History of Tetanus Vaccine?: 2009 Tetanus Immunization Date: Dec 21, 2005 History of Pneumococcal: Yes Pneumococcal Date: Feb 03, 2012 History of Hepatitis B Vaccine: No History of MDRO No Allergies Coded Allergies: Iodinated Diagnostic Agents (Verified Allergy, Intermediate, hives-PT DENIES SEE NOTE, 07/21/17) Per patient she has had it since without problem (01/25/16 Ioversal given with no pretreats and no mention of rxn; also given Ioversal 11/26/06 with pretreats) Adhesives (Verified Allergy, Mild, RED RASH CAUSED BY PAPER TAPE, 07/21/17) Alprazolam (Verified Allergy, Unknown, MAKES LOOPY,DO AND SAY SILLY THINGS , 07/21/17) Haloperidol (Verified Allergy, Unknown, nervous and anxious, 07/21/17) Metformin (Verified Allergy, Unknown, HANDS FEET FACE NUMB, 07/21/17) Morphine (Verified Allergy, Unknown, SWELLING LEGS AND FEET, 07/21/17) Vancomycin (Verified Adverse Reaction, Severe, renal failure, required dialysis x 3 MONTHS, 07/21/17) Methylparaben (Verified Adverse Reaction, Intermediate, FLUID RETENTION, ) Oxymorphone (Verified Adverse Reaction, Intermediate, FLUID RETENTION, ) Gabapentin (Verified Adverse Reaction, Mild, Aphasia/Speech impairments, ) Sulfa Antibiotics (Verified Adverse Reaction, Mild, GI SYMPTOMS, 07/21/17) Acetaminophen (Verified Adverse Reaction, Unknown, Liver problems., ) Codeine (Verified Adverse Reaction, Unknown, UPSET STOMACH, 07/21/17) Pregabalin (Verified Adverse Reaction, Unknown, Aphasia/Speech impairments , 07/21/17) Uncoded Allergies: PAPER TAPE (Allergy, Severe, rash, 07/21/17) Medications Home Medications: Home Meds and Scripts Medications Dose Route/Sig Max Daily Dose Days Date Category Dose Instructions Synthroid (Levothyroxine Sodium) 200 Mcg Tab 200 Mcg PO QAM 07/22/17 Reported BRAND NAME ONLY Zantac (Ranitidine Hcl) 300 Mg Tab 300 Mg PO HS 07/21/17 Reported Cimetidine 300 Mg Tab 300 Mg PO QPM 07/21/17 Reported Lasix (Furosemide) 40 Mg Tab 40 Mg PO QAM 06/27/17 Reported Escitalopram Oxalate 20 Mg Tab 20 Mg PO QPM 05/25/17 Reported Duloxetine HCl 60 Mg Cap 60 Mg PO BID 05/25/17 Reported Ventolin Hfa (Albuterol) 200 Puffs/[id number] Mcg Aers 2 Puffs INH Q6H PRN 05/10/17 Reported Xarelto (Rivaroxaban) 20 Mg Tab 20 Mg PO QPM 01/09/17 Reported Coreg (Carvedilol) 12.5 Mg Tab 12.5 Mg PO BID 07/13/15 Reported Lantus Solostar (Insulin Glargine) 100 Unit/Ml Inj 77 Units SQ BID 04/16/15 Reported Oxygen Gas 3 Liters NA UD PRN 08/28/14 Reported Novolog Flexpen (Insulin Aspart) 100 Units/Ml Inj 1 Dose SC TIDM 08/28/14 Reported COVERAGE DIRECTED BY FOLLOWING SLIDING SCALE: 150 - 199 2 UNITS 200 - 249 4 UNITS 250 - 299 8 UNITS 300 - 349 12 UNITS 350 - 399 18 UNITS 400 - 449 24 UNITS 450 - 499 30 UNITS Inpatient Medications: Current Inpatient Medications Medications (Trade) Dose Ordered Sig/Nelda Route Start Time Stop Time Status Last Admin Dose Admin Al Hydrox/Mg Hydrox/Simethicone (Maalox Max Susp) 15 ml Q4H PRN PO 07/22/17 20:30 08/21/17 20:29 Magnesium Hydroxide (Milk Of Magnesia Susp) 30 ml Q6H PRN PO 07/22/17 20:30 08/21/17 20:29 Polyethylene (Miralax Powder Packet) 17 gm DAILY PRN PO 07/22/17 20:30 08/21/17 20:29 Ondansetron HCl (Zofran Inj) 4 mg Q6H PRN IV 07/22/17 20:30 08/21/17 20:29 Glucose (Glucose 40% Gel) 15-30 GRAMS 15 GRAMS... UD PRN PO 07/22/17 20:30 08/21/17 20:29 Glucose (Glucose Chew Tab) 4-8 Tablets 4 Tabl... UD PRN PO 07/22/17 20:30 08/21/17 20:29 Dextrose (Dextrose 50% 50ML Syringe) 25-50ML OF 50% DW IV FOR... UD PRN IV 07/22/17 20:30 08/21/17 20:29 Glucagon (Glucagon Inj) 1 mg UD PRN SQ 07/22/17 20:30 08/21/17 20:29 Insulin Aspart (novoLOG ASPART) SLIDING SCALE G... ACHS SC 07/22/17 21:00 08/21/17 20:59 07/23/17 09:33 5 UNITS Nicotine (Nicoderm Cq 14MG Patch) 1 patch QAM TD 07/23/17 09:00 08/22/17 08:59 07/23/17 09:30 1 PATCH Miscellaneous (Remove Nicoderm Patch) 1 ea HS N/A 07/22/17 21:00 08/21/17 20:59 Hydromorphone HCl (Dilaudid Inj) 1 mg Q3H PRN IV 07/22/17 20:30 08/05/17 20:29 07/23/17 08:43 1 MG Albuterol (Ventolin Hfa Inhaler) 2 puffs Q6H PRN INH 07/22/17 20:45 08/21/17 20:44 Carvedilol (Coreg Tab) 12.5 mg BID PO 07/22/17 21:00 08/21/17 20:59 07/22/17 23:55 12.5 MG Cimetidine (Tagamet Tab) 300 mg QPM PO 07/22/17 21:00 08/21/17 20:59 07/23/17 00:32 300 MG Duloxetine HCl (Cymbalta Cap) 60 mg BID PO 07/22/17 21:00 08/21/17 20:59 07/23/17 09:29 60 MG Escitalopram Oxalate (Lexapro Tab) 20 mg QPM PO 07/22/17 21:00 08/21/17 20:59 07/22/17 23:54 20 MG Insulin Glargine (Lantus Vial) 77 units BID SQ 07/22/17 21:00 08/21/17 20:59 07/23/17 09:34 77 UNITS Levothyroxine Sodium (Synthroid Tab) 200 mcg DAILYBB PO 07/23/17 06:00 08/22/17 06:59 07/23/17 05:15 200 MCG Ranitidine HCl (zANTac TAB) 150 mg HS PO 07/22/17 21:00 08/21/17 20:59 07/22/17 23:55 150 MG Potassium Chloride/Sodium Chloride 1,000 ml @ 100 mls/hr Q10H IV 07/22/17 22:45 07/23/17 18:44 07/23/17 08:47 100 MLS/HR Miscellaneous (Iv Fluids Completed) 1 ea PRN PRN N/A 07/22/17 21:15 07/22/18 21:14 Albuterol/ Ipratropium (Duoneb) 3 ml QID PRN INH 07/22/17 21:15 08/21/17 21:14 Ceftriaxone Sodium 2000 mg/ Dextrose 70 ml @ 100 mls/hr Q24H IV 07/23/17 10:00 08/02/17 09:59 07/23/17 09:31 100 MLS/HR Review of Systems Review of Systems Additional Comments: Review of systems reviewed from her admitting history and physical Physical Exam Vital Signs: Vital Signs Past 12 Hours Date Time Temp Pulse Resp B/P (MAP) Pulse Ox O2 Delivery O2 Flow Rate FiO2 07/23/17 08:44 36.5 54 18 101/63 (76) 93 Room Air 07/23/17 08:30 Room Air 07/23/17 01:09 36.8 67 14 128/64 93 Room Air 07/22/17 23:57 67 128/64 (85) Physical Exam: General Appearance: WD/WN, no apparent distress ENT: hearing grossly normal Neck: supple Respiratory/Chest: lungs clear, no respiratory distress Cardiovascular: regular rate, rhythm Gastrointestinal: Abdomen: normal abdomen Neurologic/Psychiatric: alert Skin: normal color, warm/dry Assessment & Plan Assessment & Plan Assessment Left flank pain post ureteroscopy CT shows no evidence of obstruction there were no stones seen Lab work is normal At this point I would just continue with IV hydration and treat her pain. Once her pain is under control she can be discharged follow-up with Dr. Raya as an outpatient
[2017-07-23] MEDS ORDERED: OXYCODONE HCL IR 5 MG TAB (IMMEDIATE RELEASE) PO PRN (14:45)
[2017-07-23 15:52] VITALS: BP 101/59; PULSE 50; TEMP 36.5; O2SAT 93
[2017-07-23] MEDS: OXYCODONE HCL IR 5 MG TAB (IMMEDIATE RELEASE) PO PRN ×2 (16:52→21:04)
[2017-07-23 21:15] VITALS: BP 111/66; PULSE 79
[2017-07-23] MEDS: ESCITALOPRAM OXALATE 20 MG TAB PO SCH (21:18)
[2017-07-23] MEDS: RANITIDINE HCL 150 MG TAB PO SCH (21:18)
[2017-07-23] MEDS ORDERED: HYDROmorphone INJ 0.5 MG/0.5 ML SYR IV STA (22:00)
[2017-07-23 23:26] VITALS: BP 106/53; PULSE 61; TEMP 36.7; O2SAT 93
[2017-07-24 00:21] VITALS: O2SAT 93
[2017-07-24] MEDS: OXYCODONE HCL IR 5 MG TAB (IMMEDIATE RELEASE) PO PRN ×4 (01:05→10:10)
[2017-07-24] MEDS: LEVOTHYROXINE 200 MCG TAB PO SCH (05:06)
[2017-07-24 06:02] LABS: HEMATOCRIT 30.6 % (37-47); HEMOGLOBIN 9.4 g/dL (12.0-16.0); MEAN CELL VOLUME 97.8 fL (80-100); MEAN CORPUSCULAR HGB CONC 30.7 g/dl (32-36); MEAN PLATELET VOLUME 9.4 fL (7.4-10.4); PLATELET COUNT 139 K/uL (130-400); RED CELL DISTRIBUTION WIDTH CV 15.4 % (11.5-14.5); RED CELL DISTRIBUTION WIDTH SD 54.7 fL (36.4-46.3); WHITE BLOOD COUNT 5.47 K/uL (4.8-10.8)
[2017-07-24 06:42] LABS: CALCIUM 8.6 mg/dl (8.5-10.1); CREATININE 0.94 mg/dl (0.60-1.20); POTASSIUM 3.6 mmol/L (3.5-5.1)
--- NOTE | 2017-07-24 07:06 | Family Medicine Progress Note ---
Progress Note Date of Service Jul 24, 2017.
[2017-07-24 08:00] VITALS: O2SAT 96
[2017-07-24 08:02] VITALS: BP 120/78; PULSE 55; TEMP 36.8; O2SAT 96
[2017-07-24] MEDS: NICOTINE 14 MG/24 HR TDSY TD SCH (09:30)
[2017-07-24] MEDS: CARVEDILOL 12.5 MG TAB PO SCH (09:31)
[2017-07-24] MEDS: DULOXETINE HCL 60 MG CAP PO SCH (09:31)
[2017-07-24] MEDS: INSULIN GLARGINE SQ SCH (09:41)
[2017-07-24] MEDS: INSULIN ASPART 100 UNITS/ML 3 ML PEN SC SCH ×2 (09:42→13:44)
[2017-07-24] MEDS: CEFTRIAXONE SOD INJ 2,000 MG in DEXTROSE 5% 50ML 50 ML IV SCH (10:04)
--- NOTE | 2017-07-24 11:39 | Progress Note ---
Progress Note Date of Service Jul 24, 2017. Progress Note Hospital day #2 left flank pain Patient's afebrile vital signs are stable Says the flank pain is somewhat better although still bothers her Voiding without problem Urine culture pending her white blood cell count is normal creatinine is normal I reviewed the CT findings with her which showed no stones no hydronephrosis essentially normal and the urinary tracts Without some type of obstruction not sure why she would be having this flank pain At this point I would wait until the urine culture is back treat the pain as needed No urologic intervention is needed at this time
[2017-07-24] MEDS ORDERED: OXYC1TAB3 PO (12:19)
--- NOTE | 2017-07-24 12:27 | Discharge Instructions ---
Discharge Instructions Date of Service Jul 24, 2017. Admission Reason for Admission: Left Flank Pain Discharge Discharge Diagnosis / Problem: Left flank pain after stent exchange Discharge Goals Goal(s): Decrease discomfort Activity Recommendations Activity Limitations: resume your previous activity Lifting Limitations: none Exercise/Sports Limitations: none . Instructions / Follow-Up Instructions / Follow-Up You were admitted because of intractable pain that occurred starting after your urological procedure. Your CT scan was normal. Our urologist did see you and you do not require any further intervention at this time. We treated you with IV fluids and pain control. We treated you initially for a urinary tract infection but this seems unlikely so we will stop this when you are discharged. You did note some mild bleeding in your urine which simply be from the procedure. It did stop after you were admitted. However to prevent recurrence , we recommend holding your Xarelto until you see Dr. Cummings in the office. We understand you are seen in pain management clinic and because of your recent urological procedure and kidney stone pain prior to this, you require more of your medication than usual. As such we feel it is safe to discharge you with a small amount of your regular oxycodone medication until you attend your scheduled pain management clinic visit. We have not made any additional changes to your medication. Please see Urology in the office as you were previously instructed. Please see Dr. Cummings in 1 week to ensure that your symptoms continue to improve. It was a pleasure to be involved in your care and we wish you all the best. Current Hospital Diet Patient's current hospital diet: AHA Diet (Heart Healthy), Diabetes Type 2 Diet Discharge Diet Recommended Diet: AHA Diet (Heart Healthy), Diabetes Type 2 Diet Pending Studies Studies pending at discharge: no Medical Emergencies . Who to Call and When: Medical Emergencies: If at any time you feel your situation is an emergency, please call 911 immediately. . Non-Emergent Contact Non-Emergency issues call your: Primary Care Provider Call Non-Emergent contact if: your pain is not controlled, your pain is unusual for you . . "Provider Documentation" section prepared by Lebron Fernandez. . [place] Drug Monitoring Program Search Results: patient reviewed within database, no issues identified
--- NOTE | 2017-07-24 13:23 | Discharge Summary ---
Discharge Summary Date of Service Jul 24, 2017. Discharge Summary Admission Date: Jul 22, 2017 at 20:40 Discharge Date: Jul 24, 2017 Principal Diagnosis: Left Flank Pain Problems/Secondary Diagnoses: (1) Asthma Status: Chronic (2) Benign hypertension Status: Chronic (3) Bipolar disorder Status: Chronic (4) Chronic pain Status: Chronic (5) Degenerative joint disease of spine Status: Chronic (6) Depression Status: Chronic (7) Diabetes mellitus type 2 Status: Chronic (8) Drug-seeking behavior Status: Chronic (9) Gastroesophageal reflux disease Status: Chronic (10) H/O hernia repair Status: Chronic (11) Hernia of abdominal wall Status: Chronic (12) Hypothyroidism Status: Chronic (13) Insomnia Status: Chronic (14) LUMBAGO Status: Chronic (15) Migraine Status: Chronic (16) Morbid obesity Status: Chronic (17) Morbid obesity Status: Chronic (18) Obstructive sleep apnea Status: Chronic (19) Spinal stenosis Status: Chronic (20) Supraumbilical hernia Status: Chronic Immunizations: Have You Had Influenza Vaccine: No Influenza Vaccine Date: Feb 20, 2011 History of Tetanus Vaccine?: 2009 Tetanus Immunization Date: Dec 21, 2005 History of Pneumococcal: Yes Pneumococcal Date: Feb 03, 2012 History of Hepatitis B Vaccine: No Consultations: Urology Per last consultation note: Hospital day #2 left flank pain Patient's afebrile vital signs are stable Says the flank pain is somewhat better although still bothers her Voiding without problem Urine culture pending her white blood cell count is normal creatinine is normal I reviewed the CT findings with her which showed no stones no hydronephrosis essentially normal and the urinary tracts Without some type of obstruction not sure why she would be having this flank pain At this point I would wait until the urine culture is back treat the pain as needed No urologic intervention is needed at this time Medication Reconciliation New Medications: Oxycodone Immediate Rel Tab (Roxicodone Ir) 5 Mg Tab 10 MG PO Q6H PRN for Pain for 5 Days, #40 TAB Continued Medications: Albuterol Hfa (Ventolin Hfa) 200 Puffs/39111 Mcg Aers 2 PUFFS INH Q6H PRN for SOB/Wheezing Carvedilol (Coreg) 12.5 Mg Tab 12.5 MG PO BID Cimetidine (Cimetidine) 300 Mg Tab 300 MG PO QPM, TAB Duloxetine HCl (Duloxetine HCl) 60 Mg Cap 60 MG PO BID Escitalopram Oxalate (Escitalopram Oxalate) 20 Mg Tab 20 MG PO QPM Furosemide (Lasix) 40 Mg Tab 40 MG PO QAM Home O2 Therapy (Oxygen) Gas 3 LITERS NA UD PRN for Shortness of Breath Insulin Aspart (Novolog Flexpen) 100 Units/Ml Inj 1 DOSE SC TIDM COVERAGE DIRECTED BY FOLLOWING SLIDING SCALE: 150 - 199 2 UNITS 200 - 249 4 UNITS 250 - 299 8 UNITS 300 - 349 12 UNITS 350 - 399 18 UNITS 400 - 449 24 UNITS 450 - 499 30 UNITS Insulin Glargine (Lantus Solostar) 100 Unit/Ml Inj 77 UNITS SQ BID Levothyroxine Sodium (Synthroid) 200 Mcg Tab 200 MCG PO QAM BRAND NAME ONLY Ranitidine Hcl (Zantac) 300 Mg Tab 300 MG PO HS Discontinued Medications: Rivaroxaban (Xarelto) 20 Mg Tab 20 MG PO QPM Discharge Exam A 10 point review of systems was negative at discharge unless stated in the hospital course Physical Exam: General Appearance: WD/WN, no apparent distress, + obese Eyes: normal inspection, EOMI ENT: hearing grossly normal, pharynx normal Neck: supple, no adenopathy, thyroid normal Respiratory/Chest: lungs clear, no respiratory distress Cardiovascular: regular rate, rhythm, no edema, no gallop Abdomen / GI: soft, + tenderness (mild left anterior abdomen tenderness), + pertinent finding (Bowel sounds difficult to auscultate) Extremities: no calf tenderness, no pedal edema Neurologic/Psychiatric: no motor/sensory deficits, alert, normal mood/affect , oriented x 3 Skin: normal color, warm/dry, no rash Lymphatic: no adenopathy Hospital Course 62 year old female 1 day s/p ureteral stent exchange with lithotripsy, who presented with significant post-procedure left anterior/abdomen pain. Left Flank Pain with hematuria s/p ureteral stent exchange - Seen in ER 3 times; repeated negative work-ups; admitted due to intractable pain - Per records exchanged stent has come out since being placed - Urology was consulted and did not feel there was nay urological explanation for her pain; recommended supportive care and outpatient follow-up - Patient initially treated with Dilaudid and IVF; gradually weaned off Dilaudid and transitioned to her home PO regimen of oxycodone Hematuria - Stated hematuria - Seemed more like post-procedural and self-limited - Patients Xarelto held at discharge; recommend holding until seen by PCP who can re-start if no evidence of bleeding recurrence - Last VTE > 10 years ago, so there is low risk of temporarily holding anticoagulation History of Diabetic Neuropathy on Chronic Opiate Regimen - Prior to her stent procedure patient reports significant renal stone pain requiring her to need more than her baseline medications; she had run out by the time she had her stent exchange procedure - Normally takes oxycodone 10 mg q6h - PDMP was reviewed; does show prescriptions of oxycodone 10 - Patient has f/u with pain management in 5 days; will give her oxycodone enough to see in the office so they can assess Possible UTI - Complained of dysuria on arrival but no objective evidence of UTI - Started Rocephin; no antibiotics at discharge as clinical picture does not indicate. - Urine cultures pending at discharge; PCP to follow-up on urine cultures Hypothyroidism - Continued Levothyroxine; no change at discharge Asthma - Albuterol inhaler PRN; no change at discharge Type 2 diabetes mellitus - Resume regular diabetic medications at discharge Hypertension - Continue Coreg; no change at discharge GERD - Patient on both Cimetidine and Ranitidine; no change at discharge Depression - Continue Lexapro and Cymbalta; no change at discharge Hx DVT PE - Xarelto held due to hematuria; to be re-started by PCP in 7-10 days if not having urinary bleeding The patient was agreeable to the discharge plan and seeing her PCP in 1 week after discharge. She also has follow-up arranged for urology and pain management. The patient was discharged in stable condition. Resident Physician Supervision Note: I was present with Dr. Fernandez during the history and exam. I discussed the case with the resident and agree with the findings and plan as documented in the note. Any exceptions or clarifications are listed here: patient pain is controlled today and overall she appears much more comfortable. Agree with discharge with instructions as noted above. PDMP reviewed prior to discharge and proper use of narcotic medications reviewed with patient. Documented By: Dominic Escalona Total Time Spent: Less than 30 minutes This includes examination of the patient, discharge planning, medication reconciliation, and communication with other providers. Discharge Instructions Please refer to the electronic Patient Visit Report (Discharge Instructions) for additional information. Follow-Up as above. Additional Copies To Agustina Cummings M.D.
[2017-07-24 13:49] VITALS: BP 120/78; PULSE 55; TEMP 36.8; O2SAT 96
== END 2017-07-24 14:00 | disposition home or self-care (01) ==
LOC: C.EDB 18:15 → C.MSW 20:40 → ENRESERV 21:18
PROVIDERS: ADMIT Internal Medicine; ATTEND Family Medicine
DX: R10.84 Generalized abdominal pain (principal); J45.909 Unspecified asthma, uncomplicated; I10 Essential (primary) hypertension; F31.9 Bipolar disorder, unspecified; G89.29 Other chronic pain; M47.9 Spondylosis, unspecified; F32.9 Major depressive disorder, single episode, unspecified; E11.9 Type 2 diabetes mellitus without complications; K21.9 Gastro-esophageal reflux disease without esophagitis; E03.9 Hypothyroidism, unspecified; E66.01 Morbid (severe) obesity due to excess calories; I48.91 Unspecified atrial fibrillation; F17.200 Nicotine dependence, unspecified, uncomplicated; G47.33 Obstructive sleep apnea (adult) (pediatric); Z88.1 Allergy status to other antibiotic agents; Z88.2 Allergy status to sulfonamides; Z88.6 Allergy status to analgesic agent; Z88.8 Allergy status to other drugs, medicaments and biological substances; Z79.4 Long term (current) use of insulin; Z79.01 Long term (current) use of 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s; Z86.718 Personal history of other venous thrombosis and embolism; Z90.89 Acquired absence of other organs; Z98.890 Other specified postprocedural states; Z90.49 Acquired absence of other specified parts of digestive tract; Z80.9 Family history of malignant neoplasm, unspecified; Z83.3 Family history of diabetes mellitus; Z82.49 Family history of ischemic heart disease and other diseases of the circulatory system; Z83.6 Family history of other diseases of the respiratory system

== ENCOUNTER 2017-07-27 06:30 | Emergency (ER) | payer OTHER ==
[~2017-07-27] VITALS: Ht 160 cm; Wt 155.0 kg
[~2017-07-27 06:30] MED LIST changes: +CARV12.52 PO; +CYM60 PO; +INSDGIPEN SQ; -LEVO200T PO; +LXP/20 PO; +NVLGI/PEN SC; +OXGN; +OXYC1TAB3 PO; +RANI300T PO; +SYN200 PO; +VNTHFA/IN INH; -XRL20 PO; +[UNRECOGNIZED DRUG - CODE] PO
[2017-07-27 06:33] VITALS: TEMP 36.9; Ht 160 cm; Wt 155.0 kg
[2017-07-27] MEDS ORDERED: ONDANSETRON 4MG OD TAB PO STA (06:47)
[2017-07-27] MEDS ORDERED: IBUPROFEN 600 MG TAB PO STA (07:08)
--- NOTE | 2017-07-27 07:09 | EMERGENCY ROOM VISIT NOTE ---
History Report prepared by [place]: Ericka Fonseca Under the Supervision of: Dr. Hany Rowley M.D. First contact with patient: 06:39 Chief Complaint: ABDOMINAL PAIN Stated Complaint: COMPLICATIONS FROM A PROCEDURE LAST TUESDAY Nursing Triage Summary: Pt had kidney stones removed , has been having complications since. Now c/o increased lower abdominal swelling/pain and nausea. Pain unrelieved with home Roxicodone. History of Present Illness The patient is a 51 year old female who presents to the Emergency Room with complaints of worsening lower abdominal pain beginning six days ago. The patient reports she had kidney stones removed , six days ago. She notes increasing abdominal swelling and nausea since her procedure. The patient states "I feel like my stomach is ripping off". Source of History: patient Onset: six days ago Position: abdomen Quality: other (pain) Timing: worsening Associated Symptoms: + nausea, + abdominal pain Review of Systems See HPI for pertinent positives & negatives. A total of 10 systems reviewed and were otherwise negative. Past Medical & Surgical Medical Problems: (1) Abdominal pain (2) Abdominal pain (3) Abdominal pain (4) Abdominal wall cellulitis (5) Acute hypokalemia (6) Acute renal failure syndrome (7) Anasarca (8) Ankle pain (9) Asthma (10) Atypical syncope (11) Benign hypertension (12) Bipolar disorder (13) Bowel obstruction (14) Cellulitis (15) CELLULITIS ABDOMEN (16) Cellulitis and abscess of trunk (17) Chronic pain (18) Cirrhosis (19) Contusion of ankle (20) Contusion of periorbital region, left (21) Degenerative joint disease of spine (22) Dehydration (23) Dehydration (24) Depression (25) Diabetes mellitus type 2 (26) DM (diabetes mellitus screen) (27) Drug-seeking behavior (28) DVT (deep venous thrombosis) (29) Exacerbation of chronic back pain (30) Fall (31) Fracture of fourth metatarsal bone of left foot (32) Gastroesophageal reflux disease (33) Hepatic encephalopathy (34) Hernia of abdominal wall (35) Hyperglycemia (36) Hypokalemia (37) Hypokalemia (38) Hypokalemia (39) Hypokalemia (40) Hypothyroid (41) Hypothyroidism (42) Hypoxia (43) Incarcerated ventral hernia (44) Incisional irritation (45) Incisional pain (46) Inguinal lymphadenopathy (47) Insomnia (48) Kidney stone (49) prison (current) use of insulin (50) prison current use of 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 (51) LUMBAGO (52) Migraine (53) Morbid obesity (54) Morbid obesity (55) Morbid obesity (56) Morbid obesity with BMI of 60.0-69.9, adult (57) Obstructive sleep apnea (58) Pain, dental (59) Rectal bleeding (60) Renal colic on right side (61) Renal insufficiency (62) Renal insufficiency (63) SBO (small bowel obstruction) (64) Septic shock (65) Seroma, postoperative (66) Sleep apnea (67) Spinal stenosis (68) Splenomegaly, not elsewhere classified (69) Supraumbilical hernia (70) Weight gain, abnormal Surgical Problems: (1) H/O hernia repair (2) H/O knee surgery (3) H/O: hysterectomy (4) History of cholecystectomy (5) History of urethral stent (6) Hx of appendectomy Social History Problems: (1) Diabetic neuropathy Family History Cancer Diabetes mellitus Gallbladder disease Heart disease Hypertension Lung disease Social History Smoking Status: Current Every Day Smoker Alcohol Use: none Drug Use: none Marital Status: Housing Status: lives with family Occupation Status: unemployed, disabled Current/Historical Medications Scheduled Carvedilol (Coreg), 12.5 MG PO BID Cimetidine (Cimetidine), 300 MG PO QPM Duloxetine HCl (Duloxetine HCl), 60 MG PO BID Escitalopram Oxalate (Escitalopram Oxalate), 20 MG PO QPM Furosemide (Lasix), 40 MG PO QAM Insulin Aspart (Novolog Flexpen), 1 DOSE SC TIDM Insulin Glargine (Lantus Solostar), 77 UNITS SQ BID Levothyroxine Sodium (Synthroid), 200 MCG PO QAM Ranitidine Hcl (Zantac), 300 MG PO HS Scheduled PRN Albuterol Hfa (Ventolin Hfa), 2 PUFFS INH Q6H PRN for SOB/Wheezing Home O2 Therapy (Oxygen), 3 LITERS NA UD PRN for Shortness of Breath Oxycodone Immediate Rel Tab (Roxicodone Ir), 10 MG PO Q6H PRN for Pain Allergies Coded Allergies: Iodinated Diagnostic Agents (Verified Allergy, Intermediate, hives-PT DENIES SEE NOTE, 07/27/17) Per patient she has had it since without problem (01/25/16 Ioversal given with no pretreats and no mention of rxn; also given Ioversal 11/26/06 with pretreats) Adhesives (Verified Allergy, Mild, RED RASH CAUSED BY PAPER TAPE, 07/27/17) Alprazolam (Verified Allergy, Unknown, MAKES LOOPY,DO AND SAY SILLY THINGS , 07/27/17) Haloperidol (Verified Allergy, Unknown, nervous and anxious, 07/27/17) Metformin (Verified Allergy, Unknown, HANDS FEET FACE NUMB, 07/27/17) Morphine (Verified Allergy, Unknown, SWELLING LEGS AND FEET, 07/27/17) Vancomycin (Verified Adverse Reaction, Severe, renal failure, required dialysis x 3 MONTHS, 07/27/17) Methylparaben (Verified Adverse Reaction, Intermediate, FLUID RETENTION, ) Oxymorphone (Verified Adverse Reaction, Intermediate, FLUID RETENTION, 07/27) Gabapentin (Verified Adverse Reaction, Mild, Aphasia/Speech impairments, ) Sulfa Antibiotics (Verified Adverse Reaction, Mild, GI SYMPTOMS, 07/27/17) Acetaminophen (Verified Adverse Reaction, Unknown, Liver problems., 07/27/17 ) Codeine (Verified Adverse Reaction, Unknown, UPSET STOMACH, 07/27/17) Pregabalin (Verified Adverse Reaction, Unknown, Aphasia/Speech impairments , 07/27/17) Uncoded Allergies: PAPER TAPE (Allergy, Severe, rash, 07/21/17) Physical Exam Vital Signs Date Time Temp Pulse Resp B/P (MAP) Pulse Ox O2 Delivery O2 Flow Rate FiO2 07/27/17 08:25 63 18 112/68 93 Room Air 07/27/17 07:28 65 07/27/17 07:27 93 Room Air 07/27/17 07:26 65 18 117/60 94 Room Air 07/27/17 06:33 36.9 71 18 137/68 97 Room Air Physical Exam GENERAL: Awake, alert, well-appearing, in no acute distress HENT: Normocephalic, atraumatic. Oropharynx unremarkable. EYES: Normal conjunctiva. Sclera non-icteric. NECK: Supple. No nuchal rigidity. FROM. No JVD. RESPIRATORY: Clear to auscultation. CARDIAC: Regular rate, normal rhythm. Extremities warm and well perfused. Pulses equal. ABDOMEN: Soft, non-distended. No rebound or guarding. No masses. Large pannus, no evidence of cellulitis, nontender on examination. RECTAL: Deferred. MUSCULOSKELETAL: Chest examination reveals no tenderness. The back is symmetrical on inspection without obvious abnormality. There is no CVA tenderness to palpation. No joint edema. LOWER EXTREMITIES: Calves are equal size bilaterally and non-tender. No edema. No discoloration. NEURO: Normal sensorium. No sensory or motor deficits noted. SKIN: No rash or jaundice noted. Medical Decision & Procedures ER Provider Diagnostic Interpretation: Radiology results as stated below per my review and radiologist interpretation: CT SCAN OF THE ABDOMEN AND PELVIS WITHOUT CONTRAST FINDINGS: Lower chest: The heart is normal in size and configuration, without pericardial effusion. The lung bases and pleural spaces are clear. Liver: There is a nodular serosal surface, suggestive of hepatic cirrhosis. No focal masses are visualized this noncontrast study. Gallbladder: Surgically absent Spleen: The spleen is enlarged measuring 15.6 cm Pancreas: Unremarkable. Adrenal glands: There is stable left adrenal gland thickening, likely secondary to adenomatous hyperplasia Kidneys: No renal calculi are visualized. There is mild left-sided perinephric edema. No ureteral or bladder calculi are visualized. Bowel: There are no transition zones indicate bowel obstruction. There is scattered stool the colon. There is no acute diverticulitis. There are no findings to indicate acute appendicitis. Peritoneum: There is no intraperitoneal free air or abdominal ascites. Vasculature: The abdominal aorta is normal in course and caliber. Adenopathy: There are mildly enlarged uziel hepatis, celiac, and para-aortic lymph nodes. Borderline enlarged iliac lymph nodes are also present. The findings remain unchanged. Pelvic viscera: The uterus appears surgically absent Skeletal structures: Degenerative changes are present within the spine. There is multilevel spinal stenosis. There is anterior abdominal wall cutaneous and subcutaneous edema. IMPRESSION: 1. Cirrhotic liver morphology 2. Splenomegaly 3. Mild adenopathy similar to the prior study 4. No renal, ureteral, or bladder calculi identified 5. Stable mild left perinephric infiltration 6. Abdominal wall cutaneous and subcutaneous edema 7. No evidence of bowel obstruction. No evidence of free air Electronically signed by: Romie Lincoln M.D. Laboratory Results 07/27/17 07:06 Red Blood Count 3.21, Mean Corpuscular Volume 94.1, Mean Corpuscular Hemoglobin 30.2, Mean Corpuscular Hemoglobin Concent 32.1, Mean Platelet Volume 9.6, Neutrophils (%) (Auto) 58.8, Lymphocytes (%) (Auto) 30.9, Monocytes (%) (Auto) 8.1, Eosinophils (%) (Auto) 1.7, Basophils (%) (Auto) 0.1, Neutrophils # (Auto) 4.12, Lymphocytes # (Auto) 2.17, Monocytes # (Auto) 0.57, Eosinophils # (Auto) 0.12, Basophils # (Auto) 0.01 07/27/17 07:06 Test 07/27/17 07:06 07/27/17 07:08 White Blood Count 7.02 K/uL (4.8-10.8) Red Blood Count 3.21 M/uL (4.2-5.4) Hemoglobin 9.7 g/dL (12.0-16.0) Hematocrit 30.2 % (37-47) Mean Corpuscular Volume 94.1 fL (80-100) Mean Corpuscular Hemoglobin 30.2 pg (25-34) Mean Corpuscular Hemoglobin Concent 32.1 g/dl (32-36) Platelet Count 158 K/uL (130-400) Mean Platelet Volume 9.6 fL (7.4-10.4) Neutrophils (%) (Auto) 58.8 % Lymphocytes (%) (Auto) 30.9 % Monocytes (%) (Auto) 8.1 % Eosinophils (%) (Auto) 1.7 % Basophils (%) (Auto) 0.1 % Neutrophils # (Auto) 4.12 K/uL (1.4-6.5) Lymphocytes # (Auto) 2.17 K/uL (1.2-3.4) Monocytes # (Auto) 0.57 K/uL (0.11-0.59) Eosinophils # (Auto) 0.12 K/uL (0-0.5) Basophils # (Auto) 0.01 K/uL (0-0.2) RDW Standard Deviation 52.1 fL (36.4-46.3) RDW Coefficient of Variation 15.4 % (11.5-14.5) Immature Granulocyte % (Auto) 0.4 % Immature Granulocyte # (Auto) 0.03 K/uL (0.00-0.02) Anion Gap 6.0 mmol/L (3-11) Est Creatinine Clear Calc Drug Dose 117.0 ml/min Estimated GFR () 94.7 Estimated GFR (Non- 81.7 BUN/Creatinine Ratio 8.0 (10-20) Calcium Level 8.1 mg/dl (8.5-10.1) Total Bilirubin 0.7 mg/dl (0.2-1) Direct Bilirubin mg/dl (0-0.2) Aspartate Amino Transf (AST/SGOT) U/L (15-37) Alanine Aminotransferase (ALT/SGPT) 20 U/L (12-78) Alkaline Phosphatase 84 U/L (45-117) Total Protein 6.5 gm/dl (6.4-8.2) Albumin 2.5 gm/dl (3.4-5.0) Lipase 28 U/L (73-393) Urine Color YELLOW Urine Appearance CLEAR (CLEAR) Urine pH 8.0 (4.5-7.5) Urine Specific [place] 1.013 (1.000-1.030) Urine Protein NEG (NEG) Urine Glucose (UA) NEG (NEG) Urine Ketones NEG (NEG) Urine Occult Blood NEG (NEG) Urine Nitrite NEG (NEG) Urine Bilirubin NEG (NEG) Urine Urobilinogen NEG (NEG) Urine Leukocyte Esterase SMALL (NEG) Urine WBC (Auto) 10-30 /hpf (0-5) Urine RBC (Auto) 0-4 /hpf (0-4) Urine Hyaline Casts (Auto) 1-5 /lpf (0-5) Urine Epithelial Cells (Auto) >30 /lpf (0-5) Urine Bacteria (Auto) NEG (NEG) Labs reviewed by ED physician. Medications Administered Medications (Trade) Dose Ordered Sig/Nelda Route Start Time Stop Time Status Last Admin Dose Admin Ondansetron HCl (Zofran Odt) 4 mg ONE STAT PO 07/27/17 06:47 07/27/17 06:48 DC 07/27/17 06:57 4 MG Ibuprofen (Motrin Tab) 600 mg NOW STAT PO 07/27/17 07:08 07/27/17 07:09 DC 07/27/17 07:13 600 MG Prochlorperazine Maleate (Compazine Tab) 10 mg NOW STAT PO 07/27/17 08:08 07/27/17 08:09 DC 07/27/17 08:26 10 MG ED Course 0636: Past medical records reviewed. The patient was evaluated in room A10. A complete history and physical examination was performed. 0647: Ordered Zofran 4 mg PO. 0708: Ordered Ibuprofen 600 mg PO. 0710: On initial reassessment, the patient was sleeping. Now she is requesting something for pain. 0805: Upon reexamination the patient is resting. I discussed results and treatment plan with the patient. She verbalizes agreement and understanding. The patient is ready for discharge. Medical Decision Differential diagnosis: Etiologies such as appendicitis, diverticulitis, PUD, biliary pathology, UTI, pancreatitis, obstruction, mesenteric ischemia, aortic pathology, infections, inflammatory bowel disease, renal colic, as well as others were entertained. This is a 51-year-old female who presents the emergency department complaining of abdominal wall swelling. I suspect that this is third spacing in relation to the IV fluid and the patient recently received in the hospital. She has no evidence of cellulitis is afebrile and does not have an elevation in her white blood cell count. Her laboratory work appears to be at its baseline. She was sent for CAT scan of the abdomen pelvis which does not show any evidence of cellulitis however it does reinforce that the patient I believe is third spacing with edema to the abdominal wall. I do believe based on this that the patient can be safely discharged home. In the emergency department she was given p.o. Zofran as well as ibuprofen and Compazine. Strongly recommended that the patient have a clear liquid diet over the next 48 hours and to follow- up with her primary care physician. Patient was in agreement with the treatment plan. [place] Drug Monitoring Program Search Results: patient reviewed within database, see additional documentation Drug Monitoring Findings: The patient was prescribed 40, 5mg oxycodone on July 24 and 120, 10mg oxycodone on June 30. Medication Reconcilliation Current Medication List: was personally reviewed by me Blood Pressure Screening Patient's blood pressure: Normal blood pressure Impression Primary Impression: Edema of abdominal wall Scribe Attestation The scribe's documentation has been prepared under my direction and personally reviewed by me in its entirety. I confirm that the note above accurately reflects all work, treatment, procedures, and medical decision making performed by me. Departure Information Dispostion Home / Self-Care Referrals Agustina Cummings M.D. (PCP) Forms Call Back Authorization, HOME CARE DOCUMENTATION FORM, IMPORTANT VISIT INFORMATION Patient Instructions My [facility] Additional Instructions Return if you develop fevers or evidence of cellulitis You have been examined and treated today on an emergency basis only. This is not a substitute for, or an effort to provide, complete comprehensive medical care. It is impossible to recognize and treat all injuries or illnesses in a single emergency department visit. It is therefore important that you follow up closely with Dr Cummings. Call as soon as possible for an appointment. Thank you for your time and consideration. I look forward to speaking with you again soon. Please don't hesitate to call us if you have any questions.
[2017-07-27 07:15] LABS: BASO % 0.1 %; BASO ABS # 0.01 K/uL (0-0.2); EOS % 1.7 %; EOS ABS # 0.12 K/uL (0-0.5); HEMATOCRIT 30.2 % (37-47); HEMOGLOBIN 9.7 g/dL (12.0-16.0); IG# 0.03 K/uL (0.00-0.02); LYMPH % 30.9 %; LYMPH ABS # 2.17 K/uL (1.2-3.4); MEAN CELL VOLUME 94.1 fL (80-100); MEAN CORPUSCULAR HEMOGLOBIN 30.2 pg (25-34); MEAN CORPUSCULAR HGB CONC 32.1 g/dl (32-36); MEAN PLATELET VOLUME 9.6 fL (7.4-10.4); MONO % 8.1 %; MONO ABS # 0.57 K/uL (0.11-0.59); NEUT % 58.8 %; NEUT ABS # 4.12 K/uL (1.4-6.5); PLATELET COUNT 158 K/uL (130-400); RED CELL DISTRIBUTION WIDTH CV 15.4 % (11.5-14.5); RED CELL DISTRIBUTION WIDTH SD 52.1 fL (36.4-46.3); WHITE BLOOD COUNT 7.02 K/uL (4.8-10.8)
[2017-07-27 07:27] VITALS: O2SAT 93
[2017-07-27 07:36] LABS: ALBUMIN 2.5 gm/dl (3.4-5.0); CALCIUM 8.1 mg/dl (8.5-10.1); CREATININE 0.82 mg/dl (0.60-1.20); TOTAL PROTEIN 6.5 gm/dl (6.4-8.2)
--- NOTE | 2017-07-27 07:36 | DIAGNOSTIC IMAGING REPORT ---
CT SCAN OF THE ABDOMEN AND PELVIS WITHOUT CONTRAST CLINICAL HISTORY: Lower abdominal pain and swelling. COMPARISON STUDY: July 22, 2017 TECHNIQUE: CT scan of the abdomen and pelvis was performed from the lung bases to the proximal femurs. Images are reviewed in the axial, sagittal, and coronal planes. IV contrast was not administered for this examination. A dose lowering technique was utilized adhering to the principles of ALARA. CT DOSE: 2044.90 mGy.cm FINDINGS: Lower chest: The heart is normal in size and configuration, without pericardial effusion. The lung bases and pleural spaces are clear. Liver: There is a nodular serosal surface, suggestive of hepatic cirrhosis. No focal masses are visualized this noncontrast study. Gallbladder: Surgically absent Spleen: The spleen is enlarged measuring 15.6 cm Pancreas: Unremarkable. Adrenal glands: There is stable left adrenal gland thickening, likely secondary to adenomatous hyperplasia Kidneys: No renal calculi are visualized. There is mild left-sided perinephric edema. No ureteral or bladder calculi are visualized. Bowel: There are no transition zones indicate bowel obstruction. There is scattered stool the colon. There is no acute diverticulitis. There are no findings to indicate acute appendicitis. Peritoneum: There is no intraperitoneal free air or abdominal ascites. Vasculature: The abdominal aorta is normal in course and caliber. Adenopathy: There are mildly enlarged uziel hepatis, celiac, and para-aortic lymph nodes. Borderline enlarged iliac lymph nodes are also present. The findings remain unchanged. Pelvic viscera: The uterus appears surgically absent Skeletal structures: Degenerative changes are present within the spine. There is multilevel spinal stenosis. There is anterior abdominal wall cutaneous and subcutaneous edema. IMPRESSION: 1. Cirrhotic liver morphology 2. Splenomegaly 3. Mild adenopathy similar to the prior study 4. No renal, ureteral, or bladder calculi identified 5. Stable mild left perinephric infiltration 6. Abdominal wall cutaneous and subcutaneous edema 7. No evidence of bowel obstruction. No evidence of free air Electronically signed by: Romie Lincoln M.D. 07/27/2017 7:35 AM Dictated Date/Time: 07/27/2017 7:28 AM
[2017-07-27] MEDS ORDERED: PROCHLORPERAZINE MALEATE 10 MG TAB PO STA (08:08)
[2017-07-27 08:25] VITALS: BP 112/68; PULSE 63; O2SAT 93
== END 2017-07-27 09:31 | disposition home or self-care (01) ==
LOC: C.EDB 06:31 → C.EDA 09:31
DX: R60.0 Localized edema (principal); J45.909 Unspecified asthma, uncomplicated; I10 Essential (primary) hypertension; F31.9 Bipolar disorder, unspecified; G89.29 Other chronic pain; M54.5 Low back pain; K74.60 Unspecified cirrhosis of liver; F32.9 Major depressive disorder, single episode, unspecified; E11.40 Type 2 diabetes mellitus with diabetic neuropathy, unspecified; K21.9 Gastro-esophageal reflux disease without esophagitis; E87.6 Hypokalemia; E03.9 Hypothyroidism, unspecified; E66.01 Morbid (severe) obesity due to excess calories; Z68.44 Body mass index [BMI] 60.0-69.9, adult; G47.33 Obstructive sleep apnea (adult) (pediatric); K43.9 Ventral hernia without obstruction or gangrene; F17.200 Nicotine dependence, unspecified, uncomplicated; Z87.442 Personal history of urinary calculi; Z90.710 Acquired absence of both cervix and uterus; Z96.0 Presence of urogenital implants; Z90.49 Acquired absence of other specified parts of digestive tract; Z79.4 Long term (current) use of insulin; Z83.3 Family history of diabetes mellitus; Z82.49 Family history of ischemic heart disease and other diseases of the circulatory system; Z91.041 Radiographic dye allergy status; Z91.048 Other nonmedicinal substance allergy status; Z88.8 Allergy status to other drugs, medicaments and biological substances; Z88.5 Allergy status to narcotic agent; Z88.1 Allergy status to other antibiotic agents; Z88.2 Allergy status to sulfonamides; Z88.6 Allergy status to analgesic agent

== ENCOUNTER 2017-09-10 15:58 | Emergency (ER) | payer OTHER ==
[~2017-09-10 15:58] MED LIST changes: -NVLGI/PEN SC; +NVLGI/PEN SQ; -OXYC1TAB3 PO
[2017-09-10 16:09] VITALS: TEMP 36.7; Ht 160 cm
[2017-09-10] MEDS ORDERED: SODIUM CHLORIDE 0.9% 500ML 500 ML IV STA ×2 (16:40→19:08)
--- NOTE | 2017-09-10 16:56 | EMERGENCY ROOM VISIT NOTE ---
History Report prepared by [place]: Kristen Winston Under the Supervision of: Dr. Juan Rowe M.D. First contact with patient: 16:29 Chief Complaint: EAR PAIN Stated Complaint: PROTRUSION BELOW LEFT BREAST, LEFT EAR ISSUES History of Present Illness The patient is a 51 year old female who presents to the Emergency Room with complaints of worsening left ear pain starting 2 weeks ago. The patient's friend states that the patient saw Dr. Lane a bit ago and he opted to not cordova her ear drum. He reports that the patient was seeing Dr. Lane for fluid behind her ear drum. He states that the patient is to follow up with him on Tuesday. The patient states that it has been getting worse and she cannot sleep in that side. She notes that the achy pain is going down into her jaw. The patient's friend states that he noticed she has been more lethargic for the past 10 days. He states that she will wake up for 20 minutes and then go back to sleep to the point of snoring before repeating it again. The patient complains of nausea and a mild cough. The patient's friend notes that she has been eating normally, but does not drink enough water. He complains of a protrusion underneath the patient 's left breast that started 2 days ago. The patient notes that she had urinary urgency one day, but it has since passed. The patient denies vomiting, diarrhea , cold symptoms, recent falls, and new medications. Source of History: patient Onset: 2 weeks ago Position: ear (left) Quality: ache Timing: worsening Modifying Factors (Worsening): other (sleeping on her left side) Associated Symptoms: + cough (mild), + nausea, No vomiting, No diarrhea, No urinary symptoms Note: The patient complains of the pain radiating into her jaw. The patient's friend complains if the patient being fatigued and a protrusion under her left breast. The patient denies cold symptoms. Review of Systems See HPI for pertinent positives & negatives. A total of 10 systems reviewed and were otherwise negative. Past Medical & Surgical Medical Problems: (1) Abdominal pain (2) Abdominal pain (3) Abdominal pain (4) Abdominal wall cellulitis (5) Acute hypokalemia (6) Acute renal failure syndrome (7) Anasarca (8) Ankle pain (9) Asthma (10) Atypical syncope (11) Benign hypertension (12) Bipolar disorder (13) Bowel obstruction (14) Cellulitis (15) CELLULITIS ABDOMEN (16) Cellulitis and abscess of trunk (17) Chronic pain (18) Cirrhosis (19) Contusion of ankle (20) Contusion of periorbital region, left (21) Degenerative joint disease of spine (22) Dehydration (23) Dehydration (24) Depression (25) Diabetes mellitus type 2 (26) DM (diabetes mellitus screen) (27) Drug-seeking behavior (28) DVT (deep venous thrombosis) (29) Exacerbation of chronic back pain (30) Fall (31) Fracture of fourth metatarsal bone of left foot (32) Gastroesophageal reflux disease (33) Hepatic encephalopathy (34) Hernia of abdominal wall (35) Hyperglycemia (36) Hypokalemia (37) Hypokalemia (38) Hypokalemia (39) Hypokalemia (40) Hypothyroid (41) Hypothyroidism (42) Hypoxia (43) Incarcerated ventral hernia (44) Incisional irritation (45) Incisional pain (46) Inguinal lymphadenopathy (47) Insomnia (48) Kidney stone (49) [facility] (current) use of insulin (50) [facility] current use of 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 (51) LUMBAGO (52) Migraine (53) Morbid obesity (54) Morbid obesity (55) Morbid obesity (56) Morbid obesity with BMI of 60.0-69.9, adult (57) Obstructive sleep apnea (58) Pain, dental (59) Rectal bleeding (60) Renal colic on right side (61) Renal insufficiency (62) Renal insufficiency (63) SBO (small bowel obstruction) (64) Septic shock (65) Seroma, postoperative (66) Sleep apnea (67) Spinal stenosis (68) Splenomegaly, not elsewhere classified (69) Supraumbilical hernia (70) Weight gain, abnormal Surgical Problems: (1) H/O hernia repair (2) H/O knee surgery (3) H/O: hysterectomy (4) History of cholecystectomy (5) History of urethral stent (6) Hx of appendectomy Social History Problems: (1) Diabetic neuropathy Family History Cancer Diabetes mellitus Gallbladder disease Heart disease Hypertension Lung disease Social History Smoking Status: Current Every Day Smoker Alcohol Use: none Drug Use: none Marital Status: Housing Status: lives with family Occupation Status: unemployed, disabled Current/Historical Medications Scheduled Carvedilol (Coreg), 12.5 MG PO BID Cimetidine (Cimetidine), 300 MG PO QPM Duloxetine HCl (Duloxetine HCl), 60 MG PO BID Escitalopram Oxalate (Escitalopram Oxalate), 20 MG PO QPM Insulin Aspart (Novolog Flexpen), 1 DOSE SQ TIDM Insulin Glargine (Lantus Solostar), 77 UNITS SQ BID Ranitidine Hcl (Zantac), 300 MG PO HS Rivaroxaban (Xarelto), 20 MG PO DAILY Scheduled PRN Albuterol Hfa (Ventolin Hfa), 2 PUFFS INH Q6H PRN for SOB/Wheezing Home O2 Therapy (Oxygen), 3 LITERS NA UD PRN for Shortness of Breath Oxycodone Ir (Roxicodone Ir), 15 MG PO Q6H PRN for Pain Allergies Coded Allergies: Iodinated Diagnostic Agents (Verified Allergy, Intermediate, hives-PT DENIES SEE NOTE, 07/27/17) Per patient she has had it since without problem (01/25/16 Ioversal given with no pretreats and no mention of rxn; also given Ioversal 11/26/06 with pretreats) Adhesives (Verified Allergy, Mild, RED RASH CAUSED BY PAPER TAPE, 07/27/17) Alprazolam (Verified Allergy, Unknown, MAKES LOOPY,DO AND SAY SILLY THINGS , 07/27/17) Haloperidol (Verified Allergy, Unknown, nervous and anxious, 07/27/17) Metformin (Verified Allergy, Unknown, HANDS FEET FACE NUMB, 07/27/17) Morphine (Verified Allergy, Unknown, SWELLING LEGS AND FEET, 07/27/17) Vancomycin (Verified Adverse Reaction, Severe, renal failure, required dialysis x 3 MONTHS, 07/27/17) Methylparaben (Verified Adverse Reaction, Intermediate, FLUID RETENTION, ) Oxymorphone (Verified Adverse Reaction, Intermediate, FLUID RETENTION, 07/27) Gabapentin (Verified Adverse Reaction, Mild, Aphasia/Speech impairments, ) Sulfa Antibiotics (Verified Adverse Reaction, Mild, GI SYMPTOMS, 07/27/17) Acetaminophen (Verified Adverse Reaction, Unknown, Liver problems., 07/27/17 ) Codeine (Verified Adverse Reaction, Unknown, UPSET STOMACH, 07/27/17) Pregabalin (Verified Adverse Reaction, Unknown, Aphasia/Speech impairments , 07/27/17) Uncoded Allergies: PAPER TAPE (Allergy, Severe, rash, 07/21/17) Physical Exam Vital Signs Date Time Temp Pulse Resp B/P (MAP) Pulse Ox O2 Delivery O2 Flow Rate FiO2 09/10/17 20:17 50 18 146/67 92 09/10/17 18:42 55 20 114/61 95 Room Air 09/10/17 17:55 49 20 149/85 95 Room Air 09/10/17 17:20 45 09/10/17 17:12 97 Room Air 09/10/17 16:09 36.7 51 18 137/72 95 Room Air Physical Exam GENERAL: Patient is in no acute distress. HEENT: No acute trauma, normocephalic atraumatic, mucous membranes moist, no nasal congestion, no scleral icterus. Fluid behind both TMs, more so on the right. No drum erythema. NECK: No stridor, no adenopathy, no meningismus, trachea is midline. LUNGS: Clear to auscultation bilaterally, no wheeze, no rhonchi, breath sounds equal. HEART: Cannot hear heart tones secondary to body habitus. ABDOMEN: Obese. No erythema. Mildly tender in left upper quadrant with an area of protrusion here--possibly abdominal wall hernia. No evidence of any incarceration. Bowel sounds positive. No peritonitis. EXTREMITIES: No cyanosis, full range of motion of all the joints without pain or difficulty, no signs for acute trauma. Mild bilateral pedal edema. NEUROLOGIC: Oriented x 3, no acute motor or sensory deficits, no focal weakness. SKIN: No rash, no jaundice, no diaphoresis. Medical Decision & Procedures ER Provider Diagnostic Interpretation: Radiology results as stated below per my review and radiologist interpretation: CHEST ONE VIEW PORTABLE CLINICAL HISTORY: Shortness of breath COMPARISON STUDY: 07/21/2017 FINDINGS: The heart remains enlarged. Mediastinal prominence is likely secondary to mediastinal fat deposition given the patient's body habitus. There is no focal pulmonary consolidation. There are no pleural effusions.[ Slight accentuation of vascular markings is likely related to technical factors given the patient's large body habitus IMPRESSION: Cardiomegaly. No evidence of focal pulmonary consolidation Electronically signed by: Romie Lincoln M.D. 09/10/2017 5:16 PM Dictated Date/Time: 09/10/2017 5:[address] HEAD WITHOUT CONTRAST (CT) CLINICAL HISTORY: confusion COMPARISON STUDY: June 24, 2017 TECHNIQUE: Axial CT of the brain is performed from the vertex to the skull base. IV contrast was not administered for this examination. A dose lowering technique was utilized adhering to the principles of ALARA. CT DOSE: 2144.23 mGy.cm FINDINGS: The study is limited from a technical standpoint due to the patient's large body habitus and high riding shoulder soft tissue there is moderate artifact within the posterior fossa. No intra or extra-axial mass lesions are visualized. There is no CT evidence of acute cortical infarction. There is no evidence of midline shift. There is no acute hemorrhage. No calvarial fractures are visualized. There is no evidence of pathologic ventricular dilatation. There is no evidence of acute sinusitis IMPRESSION: No acute intracranial findings Electronically signed by: Romie Lincoln M.D. 09/10/2017 6:24 PM Dictated Date/Time: 09/10/2017 6:[address] SCAN OF THE ABDOMEN AND PELVIS WITHOUT CONTRAST CLINICAL HISTORY: Abdominal pain. Possible hernia. COMPARISON STUDY: 07/27/2017 TECHNIQUE: CT scan of the abdomen and pelvis was performed from the lung bases to the proximal femurs. Images are reviewed in the axial, sagittal, and coronal planes. IV contrast was not administered for this examination. A dose lowering technique was utilized adhering to the principles of ALARA. CT DOSE: FINDINGS: Lower chest: There is a small left pleural effusion. There are by basilar atelectatic changes. Liver: The liver has a somewhat nodular contour raising the possibility of cirrhosis. No focal masses are visualized. Gallbladder: Surgically absent Spleen: Enlarged measuring 15 cm Pancreas: Unremarkable. Adrenal glands: Unremarkable. Kidneys: No renal, ureteral, or bladder calculi are visualized. Bowel: There are no transition zones indicate bowel obstruction. There is no evidence of acute diverticulitis. There is minor infiltration of the pericecal fat. By prior history, the appendix is surgically absent. Peritoneum: There is no intraperitoneal free air or abdominal ascites. Vasculature: The abdominal aorta is normal in course and caliber. Adenopathy: There are mildly enlarged periportal and periceliac lymph nodes unchanged the prior study. Aortocaval lymph nodes are the upper limits of normal in size. Iliac lymph nodes are also the upper limits of normal in size Pelvic viscera: The uterus is surgically absent Skeletal structures: Evaluation of the left anterior abdominal wall is nondiagnostic secondary to the patient's large body habitus. IMPRESSION: 1. Technically limited study secondary to the patient's large body habitus. Evaluation the left anterior abdominal wall is nondiagnostic. 2. No evidence of bowel obstruction. No evidence of free air 3. Nonspecific infiltration of the pericecal fat, potentially secondary to epiploic appendigitis 4. Cirrhotic morphology of the liver with splenomegaly 5. Mild adenopathy similar to the prior study 6. No renal, ureteral, or bladder calculi identified Electronically signed by: Romie Lincoln M.D. 09/10/2017 6:47 PM Dictated Date/Time: 09/10/2017 6:41 PM Laboratory Results 09/10/17 17:31 09/10/17 17:31 Test 09/10/17 17:10 09/10/17 17:31 Urine Color YELLOW Urine Appearance CLEAR (CLEAR) Urine pH 7.5 (4.5-7.5) Urine Specific [place] 1.012 (1.000-1.030) Urine Protein NEG (NEG) Urine Glucose (UA) NEG (NEG) Urine Ketones NEG (NEG) Urine Occult Blood NEG (NEG) Urine Nitrite NEG (NEG) Urine Bilirubin NEG (NEG) Urine Urobilinogen NEG (NEG) Urine Leukocyte Esterase TRACE (NEG) Urine WBC (Auto) 1-5 /hpf (0-5) Urine RBC (Auto) 0-4 /hpf (0-4) Urine Hyaline Casts (Auto) 1-5 /lpf (0-5) Urine Epithelial Cells (Auto) 10-20 /lpf (0-5) Urine Bacteria (Auto) NEG (NEG) Urine Opiates Screen NEG (NEG) Urine Methadone, Qualitative NEG (NEG) Urine Barbiturates NEG (NEG) Urine Phencyclidine (PCP) Level NEG (NEG) Ur Amphetamine/Methamphetamine NEG (NEG) MDMA (Ecstasy) Screen NEG (NEG) Urine Benzodiazepines Screen NEG (NEG) Urine Cocaine Metabolite NEG (NEG) Urine Marijuana (THC) NEG (NEG) Red Blood Count 3.75 M/uL (4.2-5.4) Mean Corpuscular Volume 91.5 fL (80-100) Mean Corpuscular Hemoglobin 28.5 pg (25-34) Mean Corpuscular Hemoglobin Concent 31.2 g/dl (32-36) RDW Standard Deviation 60.8 fL (36.4-46.3) RDW Coefficient of Variation 18.1 % (11.5-14.5) Mean Platelet Volume 8.9 fL (7.4-10.4) Anion Gap 5.0 mmol/L (3-11) Estimated GFR () 59.8 Estimated GFR (Non- 51.6 BUN/Creatinine Ratio 6.4 (10-20) Calcium Level 8.4 mg/dl (8.5-10.1) Magnesium Level 1.8 mg/dl (1.8-2.4) Total Bilirubin 0.5 mg/dl (0.2-1) Aspartate Amino Transf (AST/SGOT) 25 U/L (15-37) Alanine Aminotransferase (ALT/SGPT) 15 U/L (12-78) Alkaline Phosphatase 110 U/L (45-117) Ammonia 44.0 umol/L (11-32) Troponin I < 0.015 ng/ml (0-0.045) Total Protein 7.3 gm/dl (6.4-8.2) Albumin 2.6 gm/dl (3.4-5.0) Globulin 4.7 gm/dl (2.5-4.0) Albumin/Globulin Ratio 0.6 (0.9-2) Thyroid Stimulating Hormone (TSH) 95.200 uIu/ml (0.300-4.500) Free Thyroxine 0.18 ng/dl (0.80-1.60) Laboratory results reviewed by me. Medications Administered Medications (Trade) Dose Ordered Sig/Nelda Route Start Time Stop Time Status Last Admin Dose Admin Sodium Chloride 500 ml @ 999 mls/hr Q31M STAT IV 09/10/17 16:40 09/10/17 17:10 DC 09/10/17 17:55 999 MLS/HR Ondansetron HCl (Zofran Inj) 4 mg NOW STAT IV 09/10/17 17:55 09/10/17 17:56 DC 09/10/17 17:57 4 MG Sodium Chloride 500 ml @ 999 mls/hr Q31M STAT IV 09/10/17 19:08 09/10/17 19:38 DC 09/10/17 19:08 999 MLS/HR ECG Per My Interpretation Indication: nausea Rate (beats per minute): 46 Rhythm: sinus bradycardia Findings: 1st degree AV block, other (no PVCs, no ST elevations) Comparison ECG Date: 06/27/2017 Change: Similar to previous but slower rate. ED Course 1630: The patient was evaluated in room B12B. A complete history and physical exam was performed. 1640: Ordered NSS 500 ml @ 999 mls/hr IV. 175: Ordered Zofran Inj 4 mg IV. 1907: Ordered NSS 500 ml @ 999 mls/hr IV. 1927: Reevaluated the patient and she admits that she stopped her Thyroid medications. She states that she will restart them and see her PCP Tuesday. She notes that she already has an appointment scheduled. They will recheck her thyroid and ammonia that day. Discussed results and discharge instructions: She verbalized understanding and agreement. The patient is ready for discharge. Medical Decision Differential diagnoses include stroke, intracranial bleeding, dehydration, electrolyte imbalance, kidney or liver failure, UTI, hernia, thyroid disorder. There is no leukocytosis. The patient is anemic but this is baseline looking back at previous testing. No significant electrolyte abnormality or kidney failure. No hepatitis. Patient appears to be quite hypothyroid with a high TSH and low T4. Ammonia level was slightly elevated at 44. EKG shows a sinus bradycardia with a first-degree AV block. There was no acute ischemic change. Cardiac enzyme testing 1 is not consistent with acute cardiac injury. Urine tox was negative. Urinalysis did not show infection. Chest film showed no pneumonia, pneumothorax or mediastinal widening. Brain CT showed no acute bleed or mass-effect. Abdominal and pelvis CT did not show any acute surgical pathology. Chronic findings were seen. Possible inflammation around the bowel was seen. No bowel obstruction. Patient received IV Zofran for nausea, IV saline for hydration. The patient's workup here is reassuring. The patient admits that she has stopped taking her thyroid medication, this explains the hypothyroidism noted by testing. This hypothyroidism may in fact be causing her fatigue and weakness. She was encouraged to restart her thyroid medications as soon as possible, she will take a double dose this evening. In regard to the higher ammonia level, she has had hepatic encephalopathy in the past. This value is not all too high but does need close follow-up. Patient will check with her doctor in a few days to have a repeat lab draw. I do think the patient can be discharged. The thyroid issue is likely the cause for her presentation. The higher ammonia level may be partially responsible. The patient is not toxic. If worsening, she can return. In regard to the abdominal wall complaints, she is quite obese and I do not find evidence for peritonitis. No obvious hernia by CT scan. In regard to the left ear pain, this can be followed by Dr. Lane as scheduled. No ear infection on my exam this evening. Medication Reconcilliation Current Medication List: was personally reviewed by me Blood Pressure Screening Patient's blood pressure: Elevated blood pressure Blood pressure disposition: Referred to PCP Impression Primary Impression: Weakness Additional Impressions: Fatigue Left ear pain Hypothyroidism Hyperammonemia Scribe Attestation The scribe's documentation has been prepared under my direction and personally reviewed by me in its entirety. I confirm that the note above accurately reflects all work, treatment, procedures, and medical decision making performed by me. Departure Information Dispostion Home / Self-Care Referrals Agustina Cummings M.D. (PCP) Forms HOME CARE DOCUMENTATION FORM, IMPORTANT VISIT INFORMATION, WORK / SCHOOL INSTRUCTIONS Patient Instructions My [facility] Additional Instructions see your doctor tuesday for a recheck of your thyroid and ammonia level stay well hydrated take double the thyroid medication dose this evening and then restart at the normal prescribed dose tomorrow return for worsening symptoms or fever Problem Qualifiers
[2017-09-10 17:12] VITALS: O2SAT 97
[2017-09-10] MEDS ORDERED: CIME-56 PO (17:14)
--- NOTE | 2017-09-10 17:18 | DIAGNOSTIC IMAGING REPORT ---
CHEST ONE VIEW PORTABLE CLINICAL HISTORY: Shortness of breath COMPARISON STUDY: 07/21/2017 FINDINGS: The heart remains enlarged. Mediastinal prominence is likely secondary to mediastinal fat deposition given the patient's body habitus. There is no focal pulmonary consolidation. There are no pleural effusions.[ Slight accentuation of vascular markings is likely related to technical factors given the patient's large body habitus IMPRESSION: Cardiomegaly. No evidence of focal pulmonary consolidation Electronically signed by: Romie Lincoln M.D. 09/10/2017 5:16 PM Dictated Date/Time: 09/10/2017 5:16 PM
[2017-09-10] MEDS ORDERED: RIVA1TAB4 PO (17:25)
[2017-09-10] MEDS ORDERED: OXYC1TAB3 PO (17:26)
[2017-09-10 17:41] LABS: HEMATOCRIT 34.3 % (37-47); HEMOGLOBIN 10.7 g/dL (12.0-16.0); MEAN CELL VOLUME 91.5 fL (80-100); MEAN CORPUSCULAR HEMOGLOBIN 28.5 pg (25-34); MEAN CORPUSCULAR HGB CONC 31.2 g/dl (32-36); MEAN PLATELET VOLUME 8.9 fL (7.4-10.4); PLATELET COUNT 119 K/uL (130-400); RED CELL DISTRIBUTION WIDTH CV 18.1 % (11.5-14.5); RED CELL DISTRIBUTION WIDTH SD 60.8 fL (36.4-46.3)
[2017-09-10] MEDS ORDERED: ONDANSETRON INJ 2 MG/ML 2 ML VIAL IV STA (17:55)
[2017-09-10 18:11] LABS: ALBUMIN 2.6 gm/dl (3.4-5.0); ALKALINE PHOSPHATASE 110 U/L (45-117); ALT/SGPT 15 U/L (12-78); AST/SGOT 25 U/L (15-37); BLOOD UREA NITROGEN 8 mg/dl (7-18); CALCIUM 8.4 mg/dl (8.5-10.1); CARBON DIOXIDE 29 mmol/L (21-32); GLUCOSE 146 mg/dl (70-99); POTASSIUM 3.4 mmol/L (3.5-5.1); SODIUM 140 mmol/L (136-145); TOTAL PROTEIN 7.3 gm/dl (6.4-8.2)
--- NOTE | 2017-09-10 18:26 | DIAGNOSTIC IMAGING REPORT ---
CT HEAD WITHOUT CONTRAST (CT) CLINICAL HISTORY: confusion COMPARISON STUDY: June 24, 2017 TECHNIQUE: Axial CT of the brain is performed from the vertex to the skull base. IV contrast was not administered for this examination. A dose lowering technique was utilized adhering to the principles of ALARA. CT DOSE: 2144.23 mGy.cm FINDINGS: The study is limited from a technical standpoint due to the patient's large body habitus and high riding shoulder soft tissue there is moderate artifact within the posterior fossa. No intra or extra-axial mass lesions are visualized. There is no CT evidence of acute cortical infarction. There is no evidence of midline shift. There is no acute hemorrhage. No calvarial fractures are visualized. There is no evidence of pathologic ventricular dilatation. There is no evidence of acute sinusitis IMPRESSION: No acute intracranial findings Electronically signed by: Romie Lincoln M.D. 09/10/2017 6:24 PM Dictated Date/Time: 09/10/2017 6:23 PM
--- NOTE | 2017-09-10 18:49 | DIAGNOSTIC IMAGING REPORT ---
CT SCAN OF THE ABDOMEN AND PELVIS WITHOUT CONTRAST CLINICAL HISTORY: Abdominal pain. Possible hernia. COMPARISON STUDY: 07/27/2017 TECHNIQUE: CT scan of the abdomen and pelvis was performed from the lung bases to the proximal femurs. Images are reviewed in the axial, sagittal, and coronal planes. IV contrast was not administered for this examination. A dose lowering technique was utilized adhering to the principles of ALARA. CT DOSE: FINDINGS: Lower chest: There is a small left pleural effusion. There are by basilar atelectatic changes. Liver: The liver has a somewhat nodular contour raising the possibility of cirrhosis. No focal masses are visualized. Gallbladder: Surgically absent Spleen: Enlarged measuring 15 cm Pancreas: Unremarkable. Adrenal glands: Unremarkable. Kidneys: No renal, ureteral, or bladder calculi are visualized. Bowel: There are no transition zones indicate bowel obstruction. There is no evidence of acute diverticulitis. There is minor infiltration of the pericecal fat. By prior history, the appendix is surgically absent. Peritoneum: There is no intraperitoneal free air or abdominal ascites. Vasculature: The abdominal aorta is normal in course and caliber. Adenopathy: There are mildly enlarged periportal and periceliac lymph nodes unchanged the prior study. Aortocaval lymph nodes are the upper limits of normal in size. Iliac lymph nodes are also the upper limits of normal in size Pelvic viscera: The uterus is surgically absent Skeletal structures: Evaluation of the left anterior abdominal wall is nondiagnostic secondary to the patient's large body habitus. IMPRESSION: 1. Technically limited study secondary to the patient's large body habitus. Evaluation the left anterior abdominal wall is nondiagnostic. 2. No evidence of bowel obstruction. No evidence of free air 3. Nonspecific infiltration of the pericecal fat, potentially secondary to epiploic appendigitis 4. Cirrhotic morphology of the liver with splenomegaly 5. Mild adenopathy similar to the prior study 6. No renal, ureteral, or bladder calculi identified Electronically signed by: Romie Lincoln M.D. 09/10/2017 6:47 PM Dictated Date/Time: 09/10/2017 6:41 PM
[2017-09-10 20:17] VITALS: BP 146/67; PULSE 50; O2SAT 92
== END 2017-09-10 20:15 | disposition home or self-care (01) ==
LOC: C.EDB 15:59
DX: R53.1 Weakness (principal); R53.83 Other fatigue; H92.02 Otalgia, left ear; E03.9 Hypothyroidism, unspecified; E72.20 Disorder of urea cycle metabolism, unspecified; J45.909 Unspecified asthma, uncomplicated; F32.9 Major depressive disorder, single episode, unspecified; F17.210 Nicotine dependence, cigarettes, uncomplicated; Z79.4 Long term (current) use of insulin; Z79.01 Long term (current) use of 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s; Z79.899 Other long term (current) drug therapy; Z91.041 Radiographic dye allergy status; Z91.048 Other nonmedicinal substance allergy status; Z88.5 Allergy status to narcotic agent; Z88.1 Allergy status to other antibiotic agents; Z88.2 Allergy status to sulfonamides; Z88.8 Allergy status to other drugs, medicaments and biological substances

== ENCOUNTER 2017-09-17 08:38 | Emergency (ER) | payer OTHER ==
[~2017-09-17 08:38] MED LIST changes: -FRS/40 PO; +OXYC1TAB3 PO; +RIVA1TAB4 PO; -SYN200 PO
[2017-09-17] MEDS ORDERED: KETOROLAC TROMETHAMINE 60 MG/2 ML VIAL IM STA (09:02)
[2017-09-17 09:32] VITALS: BP 128/70; PULSE 62; TEMP 36.5; O2SAT 94
--- NOTE | 2017-09-17 13:04 | EMERGENCY ROOM VISIT NOTE ---
History First contact with patient: 08:49 Chief Complaint: ABNORMAL LABS Stated Complaint: ABNORMAL THYROID NUMBERS History of Present Illness Patient is a 51-year-old female who was brought to the emergency department by her male caregiver, Greg, for evaluation of fatigue after being diagnosed with hypothyroidism 1 week ago. Greg does all of the talking and provides the history. Patient is here on 09/10 for evaluation of fatigue and weakness, and was found to the significantly hypothyroid. Patient admitted to being noncompliant with her medications. Patient had follow-up with her PCP, Dr. Kamara, just a few days ago. She has resumed Synthroid, but is not sure of the dosage while they are awaiting prior authorization for a different thyroid supplement that Dr. Kamara has ordered. Greg reports that the patient continues to be very fatigued and sleeps most of the time. He also notes that she is eating 1 meal per day. The patient herself offers no complaints. There has been no significant change in her condition from 1 week ago. Review of Systems Review of systems as per HPI. All other systems reviewed were negative. 10 systems reviewed. Past Medical/Surgical History Medical Problems: (1) Abdominal pain (2) Abdominal pain (3) Abdominal pain (4) Abdominal wall cellulitis (5) Acute hypokalemia (6) Acute renal failure syndrome (7) Anasarca (8) Ankle pain (9) Asthma (10) Atypical syncope (11) Benign hypertension (12) Bipolar disorder (13) Bowel obstruction (14) Cellulitis (15) CELLULITIS ABDOMEN (16) Cellulitis and abscess of trunk (17) Chronic pain (18) Cirrhosis (19) Contusion of ankle (20) Contusion of periorbital region, left (21) Degenerative joint disease of spine (22) Dehydration (23) Dehydration (24) Depression (25) Diabetes mellitus type 2 (26) DM (diabetes mellitus screen) (27) Drug-seeking behavior (28) DVT (deep venous thrombosis) (29) Exacerbation of chronic back pain (30) Fall (31) Fracture of fourth metatarsal bone of left foot (32) Gastroesophageal reflux disease (33) Hepatic encephalopathy (34) Hernia of abdominal wall (35) Hyperglycemia (36) Hypokalemia (37) Hypokalemia (38) Hypokalemia (39) Hypokalemia (40) Hypothyroid (41) Hypothyroidism (42) Hypoxia (43) Incarcerated ventral hernia (44) Incisional irritation (45) Incisional pain (46) Inguinal lymphadenopathy (47) Insomnia (48) Kidney stone (49) 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 (50) intermodal customer service current use of 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 (51) LUMBAGO (52) Migraine (53) Morbid obesity (54) Morbid obesity (55) Morbid obesity (56) Morbid obesity with BMI of 60.0-69.9, adult (57) Obstructive sleep apnea (58) Pain, dental (59) Rectal bleeding (60) Renal colic on right side (61) Renal insufficiency (62) Renal insufficiency (63) SBO (small bowel obstruction) (64) Septic shock (65) Seroma, postoperative (66) Sleep apnea (67) Spinal stenosis (68) Splenomegaly, not elsewhere classified (69) Supraumbilical hernia (70) Weight gain, abnormal Surgical Problems: (1) H/O hernia repair (2) H/O knee surgery (3) H/O: hysterectomy (4) History of cholecystectomy (5) History of urethral stent (6) Hx of appendectomy Social History Problems: (1) Diabetic neuropathy Electronic medical records are reviewed and summarized as above/below. See Problem List. Family History Cancer Diabetes mellitus Gallbladder disease Heart disease Hypertension Lung disease Social History Smoking Status: Current Every Day Smoker Alcohol Use: none Drug Use: none Marital Status: Housing Status: lives with family Occupation Status: unemployed, disabled Current/Historical Medications Scheduled Carvedilol (Coreg), 12.5 MG PO BID Cimetidine (Cimetidine), 300 MG PO QPM Duloxetine HCl (Duloxetine HCl), 60 MG PO BID Escitalopram Oxalate (Escitalopram Oxalate), 20 MG PO QPM Insulin Aspart (Novolog Flexpen), 1 DOSE SQ TIDM Insulin Glargine (Lantus Solostar), 77 UNITS SQ BID Ranitidine Hcl (Zantac), 300 MG PO HS Rivaroxaban (Xarelto), 20 MG PO DAILY Scheduled PRN Albuterol Hfa (Ventolin Hfa), 2 PUFFS INH Q6H PRN for SOB/Wheezing Home O2 Therapy (Oxygen), 3 LITERS NA UD PRN for Shortness of Breath Oxycodone Ir (Roxicodone Ir), 15 MG PO Q6H PRN for Pain Physical Exam Vital Signs Date Time Temp Pulse Resp B/P (MAP) Pulse Ox O2 Delivery O2 Flow Rate FiO2 09/17/17 09:32 36.5 62 18 128/70 94 09/17/17 09:26 62 18 128/70 94 Room Air 09/17/17 08:45 36.5 68 20 131/73 97 Room Air Physical Exam CONSTITUTIONAL: Patient is a morbidly obese 51-year-old female who is awake and alert and sitting on the gurney in no acute distress. EYES: Pupils equal, round, reactive to light and accommodation. EOMs intact without nystagmus. Sclera are anicteric. ENT: Tympanic membranes intact, with normal landmarks. External canals are clear. Oral and nasopharynx are clear. Mucous membranes are moist, no lesions , tongue and gums appear normal. NECK: Supple without lymphadenopathy. No thyromegaly. No meningeal signs. Full active range of motion without discomfort. CARDIOVASCULAR: Regular rate and rhythm. Peripheral pulses easily palpable. RESPIRATORY: Breath sounds equal and clear to auscultation without wheezes, rales, or rhonchi heard. Full and equal chest expansion without accessory muscle use or retractions. INTEGUMENTARY: No lesions or rash, normal skin turgor. LYMPH: No lymphadenopathy. NEURO: Patient is alert and oriented 4. Answers questions appropriately. No gross neurologic deficits noted. Medical Decision & Procedures Medications Administered Medications (Trade) Dose Ordered Sig/Nelda Route Start Time Stop Time Status Last Admin Dose Admin Ketorolac Tromethamine (Toradol Inj) 60 mg NOW STAT IM 09/17/17 09:02 09/17/17 09:03 DC 09/17/17 09:21 60 MG ED Course The patient was seen and assessed as above. Her old records were reviewed including her most recent ED visit from about a week ago. Her caregiver Greg , is concerned that her present condition requires admission. I reassured him that while the patient is hypothyroid and it will take several weeks of appropriate supplementation to begin to normalize her thyroid hormone levels, her condition is not life-threatening. He was comfortable after discussing expected management, and reports that he was not aware that it would take so long for her symptoms to improve. Patient reports that she has a follow-up appointment with Dr. Kamara in 6 weeks. She was encouraged to remain compliant with her medications, specifically, her Synthroid, and until the other prescription was authorized, and follow-up with Dr. Kamara for any problems or concerns. The patient complained of a headache. She has a benign exam. She has a history of the same. She was given Toradol 60 mg IM and discharged. Patient was reviewed with attending physician who was in agreement with the ED workup and plan. Medical Decision See ED Course. Medication Reconcilliation Current Medication List: was personally reviewed by me Blood Pressure Screening Patient's blood pressure: Normal blood pressure Blood pressure disposition: Did not require urgent referral Impression Primary Impression: Hypothyroidism Departure Information Dispostion Home / Self-Care Condition GOOD Patient Instructions My [facility] Additional Instructions Continue all of your medications as prescribed. Follow up with Dr. Kamara for further care.
== END 2017-09-17 09:33 | disposition home or self-care (01) ==
LOC: C.EDB 08:39 → C.EDA 09:33
DX: E03.9 Hypothyroidism, unspecified (principal); J45.909 Unspecified asthma, uncomplicated; E11.40 Type 2 diabetes mellitus with diabetic neuropathy, unspecified; F17.200 Nicotine dependence, unspecified, uncomplicated; Z86.718 Personal history of other venous thrombosis and embolism; Z79.4 Long term (current) use of insulin; Z79.899 Other long term (current) drug therapy; Z79.52 Long term (current) use of systemic steroids

== ENCOUNTER 2019-03-12 18:41 | Inpatient (IN) ==
[2019-03-12] MEDS ORDERED: SODIUM CHLORIDE 0.9% 1000ML 1,000 ML IV SCH ×2 (19:00→23:21)
[2019-03-12] MEDS ORDERED: NALOXONE HCL 0.4 MG/1 ML VIAL/CARP IV STA (19:01)
--- NOTE | 2019-03-12 19:18 | XRay Report ---
XR chest 1V portable CLINICAL HISTORY: 53 years-old Female presenting with weakness. TECHNIQUE: Portable upright AP view of the chest was obtained. COMPARISON: 10/18/2018. FINDINGS: Evaluation degraded by portable technique and body habitus. This moderately limits diagnostic sensiti vity. Cardiac silhouette moderately enlarged. Mild pulmonary vascular prominence. No focal opacity. No larg e effusion or pneumothorax. Osseous structures normal. Upper abdomen normal. IMPRESSION: Evaluation degraded by portable technique and body habitus. This moderately limits diagnostic sensiti vity. 1. Cardiomegaly and mild 5 overload. No reid pulmonary edema. Electronically signed by: Jann Cedillo M.D. 03/12/2019 7:17 PM
[2019-03-12 19:47] LABS: Basophils # (auto) 0.04 K/uL (0-0.2); Basophils % (auto) 0.6 %; Eosinophils # (auto) 0.26 K/uL (0-0.5); Eosinophils % (auto) 3.9 %; Hemoglobin 12.1 g/dL (12.0-16.0); Immature Granulocytes # (auto) 0.01 K/uL (0.00-0.02); Immature Granulocytes % (auto) 0.2 %; Lymphocytes # (auto) 1.65 K/uL (1.2-3.4); Lymphocytes % (auto) 24.8 %; Mean Corpuscular Hemoglobin 30.9 pg (25-34); Mean Corpuscular Hgb Conc 33.6 g/dL (32-36); Mean Corpuscular Volume 92.1 fL (80-100); Mean Platelet Volume 9.3 fL (7.4-10.4); Monocytes # (auto) 0.68 K/uL (0.11-0.59); Monocytes % (auto) 10.2 %; Neutrophils # (auto) 4.02 K/uL (1.4-6.5); Neutrophils % (auto) 60.3 %; Platelet Count 139 K/uL (130-400); RDW Coefficient of Variation 16.5 % (11.5-14.5); RDW Standard Deviation 55.3 fL (36.4-46.3); Red Blood Count 3.91 M/uL (4.2-5.4); White Blood Count 6.66 K/uL (4.8-10.8)
--- NOTE | 2019-03-12 19:56 | CT Scan Report ---
CT head/brain wo con CLINICAL HISTORY: 53 years-old Female presenting with AMS, confusion. TECHNIQUE: Multidetector CT imaging of the head was performed without the use of intravenous contrast . IV contrast: None. One or more dose lowering techniques were used consistent with the principles of ALARA (as low as reasonably achievable), including automatic exposure control, mA or kV adjustment t o individual patient size, and/or use of iterative reconstruction. COMPARISON: 05/12/2018. CT DOSE (mGy.cm): The estimated cumulative dose is 1228.24 mGy.cm. FINDINGS: Parts Sales Advisor topogram: The patient is edentulous. Ventricles and sulci normal in size. No hemorrhage. Brain parenchyma normal in appearance with preser valente barahona-white differentiation. No acute territorial infarct. No mass effect or midline shift. No ext ra-axial fluid collection. Paranasal sinuses and mastoid air cells clear. Calvarium intact. IMPRESSION: 1. No acute intracranial abnormality. Electronically signed by: Jann Cedillo M.D. 03/12/2019 7:55 PM
[2019-03-12 20:30] LABS: Alanine Aminotransferase 23 U/L (12-78); Albumin Globulin Ratio 0.6 (0.9-2); Albumin Level 2.7 gm/dl (3.4-5.0); Alkaline Phosphatase 100 U/L (45-117); Aspartate Aminotransferase 31 U/L (15-37); BUN Creatinine Ratio 15.4 (10-20); Bilirubin,Total 1.2 mg/dl (0.2-1); Blood Urea Nitrogen 20 mg/dl (7-18); Calcium 8.7 mg/dl (8.5-10.1); Carbon Dioxide 24 mmol/L (21-32); Chloride 103 mmol/L (98-107); Creatinine Clr Calc Pharmacy 70.2 ml/min; Est GFR (African American) 52.5; Est GFR (Non-African American) 45.3; Globulin 4.3 gm/dl (2.5-4.0); Glucose 388 mg/dl (70-99); Potassium 4.4 mmol/L (3.5-5.1); Sodium 135 mmol/L (136-145); Troponin I < 0.015 ng/ml (0-0.045)
[2019-03-12 21:10] LABS: Beta-Hydroxybutyrate 1.14 mg/dl (0.2-2.81); T4 Free Thyroxine 0.76 ng/dl (0.8-1.6)
[2019-03-12] MEDS ORDERED: NovoLIN-R INSULIN PER UNIT CHARGE SC STA (21:11)
[2019-03-12 23:10] LABS: Base Excess ABG 1.4 mEq/L (-9-1.8); HCO3 ABG 24 mmol/L (19-24); Oxygen Saturation ABG 91.3 % (90-95); PCO2 ABG 33 mmHg (35-46); PO2 ABG 62 mm/Hg (80-95); pH ABG 7.49 (7.35-7.45)
[2019-03-12] MEDS ORDERED: ACETAMINOPHEN 325 MG TAB PO PRN (23:21)
[2019-03-12] MEDS ORDERED: PROCHLORPERAZINE MALEATE 5 MG TAB PO PRN (23:21)
[2019-03-12] MEDS ORDERED: hydrOXYzine HCl 10 MG TAB PO PRN (23:21)
[2019-03-12] MEDS ORDERED: ONDANSETRON INJ 2 MG/ML 2 ML VIAL IV PRN (23:21)
[2019-03-12] MEDS ORDERED: NITROGLYCERIN SL 0.4 MG/TAB TAB SL PRN (23:21)
[2019-03-12] MEDS ORDERED: POLYETHYLENE (MIRALAX) 17 GM PACK PO PRN (23:21)
[2019-03-12] MEDS ORDERED: LACTULOSE SYRUP 30 GM/45 ML UDP PO STA (23:29)
[2019-03-12 23:56] LABS: Appearance Urine Clear (Clear); Bilirubin Urine Negative (Negative); Blood Urine Negative (Negative); Color Urine Yellow; Glucose Urine UA 3+ (Negative); Ketones Urine Negative (Negative); Leukocyte Esterase Urine Negative (Negative); Nitrite Urine Negative (Negative); Protein Urine Negative (Negative); Urobilinogen Urine Positive (Negative)
--- NOTE | 2019-03-13 00:08 | Emergency Department Note ---
Entered by Ingrid Laird acting as a scribe for History of Present Illness General Chief complaint: Altered Mental Status Stated complaint: AMS Source: patient History of Present Illness Onset (ago): hour(s) (this morning ) Location: head Pain Consistency: + other (persistent ) Quality: + other (altered mental status) Associated symptoms: + denies other symptoms The patient is a 53 year old female who presents to the Emergency Room with complaints of persistent altered mental status that began this morning, per the patient's caregiver. The patient's caregiver states that the patient began Baclofen and Remeron last week. The patient denies weakness, vomiting, and pain. The patient states that she is unsure of why she started new medications. She states that she last ate in 2001. The patient's history and physical are limited secondary to her altered mental status. Home Medications Home Medications Medication Instructions Recorded Confirmed Type albuterol sulfate [ProAir 2 inh INHALATION Q4 PRN 03/12/19 03/12/19 History RespiClick] baclofen 10 mg PO BID 03/12/19 03/12/19 History betamethasone dipropionate 1 applic TOPICAL .BID UD PRN 03/12/19 03/12/19 History dicyclomine 10 mg PO QID PRN 03/12/19 03/12/19 History dulaglutide [Trulicity] 0.75 mg SUBCUT WK 03/12/19 03/12/19 History duloxetine [Cymbalta] 30 mg PO DAILY 03/12/19 03/12/19 History duloxetine [Cymbalta] 60 mg PO BID 03/12/19 03/12/19 History furosemide [Lasix] 40 mg PO SUTUTHSA 03/12/19 03/12/19 History furosemide [Lasix] 60 mg PO MOWEFR 03/12/19 03/12/19 History hydroxyzine HCl 10 mg PO Q6 PRN 03/12/19 03/12/19 History insulin aspart U-100 [Novolog 0 unit SUBCUT TIDM 03/12/19 03/12/19 History Flexpen U-100 Insulin] insulin glargine [Basaglar KwikPen 77 unit SUBCUT BID 03/12/19 03/12/19 History U-100 Insulin] levothyroxine 125 mcg PO DAILY 03/12/19 03/12/19 History metoclopramide HCl 5 mg PO AC 03/12/19 03/12/19 History mirtazapine [Remeron] 15 mg PO HS 03/12/19 03/12/19 History nystatin 1 applic TOPICAL BID 03/12/19 03/12/19 History pantoprazole [Protonix] 40 mg PO DAILY 03/12/19 03/12/19 History potassium chloride 10 meq PO BID 03/12/19 03/12/19 History prochlorperazine maleate 5 mg PO TID PRN 03/12/19 03/12/19 History [Compazine] ranitidine HCl 300 mg PO DAILY 03/12/19 03/12/19 History ranitidine HCl [Zantac] 150 mg PO BID 03/12/19 03/12/19 History rivaroxaban [Xarelto] 20 mg PO DAILY 03/12/19 03/12/19 History spironolactone [Aldactone] 25 mg PO DAILY 03/12/19 03/12/19 History Allergies Allergy/AdvReac Type Severity Reaction Status Date / Time alprazolam Allergy Intermediate MAKES Verified 12/07/18 11:38 LOOPY,DO AND SAY SILLY THINGS haloperidol Allergy Intermediate nervous Verified 12/07/18 11:38 and anxious Iodinated Contrast Media Allergy Intermediate hives-PT Verified 12/07/18 11:38 DENIES SEE NOTE metformin Allergy Intermediate HANDS FEET Verified 12/07/18 11:38 FACE NUMB morphine Allergy Intermediate SWELLING Verified 12/07/18 11:38 LEGS AND FEET adhesive Allergy Mild RED RASH Verified 12/07/18 11:38 CAUSED BY PAPER TAPE vancomycin AdvReac Severe renal Verified 12/07/18 11:38 failure, required dialysis x 3 MONTHS acetaminophen AdvReac Intermediate Liver Verified 12/07/18 11:38 problems. codeine AdvReac Intermediate UPSET Verified 12/07/18 11:38 STOMACH methylparaben AdvReac Intermediate FLUID Verified 12/07/18 11:38 RETENTION oxymorphone AdvReac Intermediate FLUID Verified 12/07/18 11:38 RETENTION pregabalin AdvReac Intermediate Aphasia/Speech Verified 12/07/18 11:38 impairments gabapentin AdvReac Mild Aphasia/Speech Verified 12/07/18 11:38 impairments Sulfa (Sulfonamide AdvReac Mild GI SYMPTOMS Verified 08/15/19 11:38 Antibiotics) PAPER TAPE Allergy Severe rash Uncoded 12/07/18 11:38 Past Med/Surg History Medical History Abdominal pain (Resolved) Abdominal pain, epigastric (Inactive) Abdominal wall cellulitis (Resolved) Abdominal wall cellulitis (Acute) Acute generalized abdominal pain (Acute) Acute hyperglycemia (Inactive) Acute hypokalemia (Resolved) Anasarca Anemia (Acute) Ankle pain (Resolved) Atrial fibrillation by electrocardiogram (Acute) Atypical syncope (Resolved) Back pain (Acute) Bladder pain (Acute) Bowel obstruction (Resolved) Cauda equina compression (Acute) Cellulitis (Resolved) Cellulitis and abscess of trunk (Resolved Unknown) Chest pain, atypical (Acute) Chronic low back pain (Acute) Cirrhosis Contusion of ankle (Resolved) Contusion of periorbital region, left (Resolved) 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) Deep vein blood clot of right lower extremity (Chronic) Dehydration (Resolved) Diabetic neuropathy (Chronic 01/04/11) DM (diabetes mellitus screen) (Chronic) Drug-seeking behavior (Acute) Exacerbation of chronic back pain (Resolved) Failure of outpatient treatment (Acute) Flank pain (Acute) Fracture of fourth metatarsal bone of left foot (Resolved) Gastritis (Acute) GI bleed (Acute) Headache (Acute) Hernia (Chronic) Hyperglycemia (Resolved) Hypokalemia (Resolved) Hypothyroid (Chronic) Hypothyroidism (Acute) Hypothyroidism Hypoxia (Resolved) Incarcerated ventral hernia (Resolved) Incisional irritation (Resolved) Incisional pain (Resolved) Inguinal lymphadenopathy (Resolved 02/19/11) Kidney stone Left flank pain (Acute) Left low back pain (Acute) jail (current) use of insulin (Chronic) jail current use of 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 (Chronic) Lumbar disc disease (Acute) Lumbar radiculopathy (Acute) Medically noncompliant (Acute) Morbid obesity (Resolved) Morbid obesity with BMI of 60.0-69.9, adult (Chronic) Noncompliance by refusing service (Acute) Obesity (Acute) Pain due to ureteral stent (Acute) Pain, dental (Resolved) Periumbilical discomfort (Acute) Pyelonephritis (Acute) Rectal bleeding Renal colic (Acute) Renal colic on right side (Resolved) Renal insufficiency (Resolved) Right sided abdominal pain (Acute) Right-sided chest wall pain (Acute) Septic shock Severe sepsis (Acute) Splenomegaly, not elsewhere classified (Chronic) Supratherapeutic INR (Acute) Syncope (Acute) UTI (urinary tract infection) (Acute) Weight gain, abnormal Surgical History Hx of ventral hernia repair Family History Other Family history non-contributory Social History Preferred Language: [place] Communication Ability: Effective Auto Design Checker Required: No Beliefs That Will Affect Care: None Current Living Situation: Alone Current Living Situation Comment: Unable to obtain information-pt confused current occupational status: disabled Other Information That Helps Us Care for You: No Feels Safe at Home: Yes Safety Concerns: Feels Safe At This Time Smoking Status: Current every day smoker Tobacco Type: cigarettes ; Cigarettes Per Day: 10 ; Hx Alcohol Use: No Hx Substance Use: No Review of Systems The patient's history and physical are limited secondary to her altered mental status. Physical Exam Vital Signs Vital Signs - 24 hr 03/12/19 18:49 03/12/19 18:55 03/12/19 19:00 Temperature 36.7 C Temperature Source Oral Pulse Rate 67 65 66 Pulse Rate from SpO2 Sensor Pulse Rhythm Regular Pulse Strength Normal Respiratory Rate 18 23 14 Respiratory Effort / Characteristics Non-Labored Spontaneous Respiratory Depth Normal Respiratory Pattern Regular Blood Pressure 147/82 H 107/66 Blood Pressure Mean 103 75 Blood Pressure Position Lying Pulse Oximetry 96 99 Oxygen Delivery Method Room Air Room Air Sepsis Recent Fever Within 48 Hours No Sepsis New/Unexplained Change in Mental Status No Sepsis Action Taken by Nursing No Action Required 03/12/19 19:11 03/12/19 19:21 03/12/19 19:22 Temperature Temperature Source Pulse Rate 63 63 Pulse Rate from SpO2 Sensor 63 62 Pulse Rhythm Pulse Strength Respiratory Rate 17 16 Respiratory Effort / Characteristics Respiratory Depth Respiratory Pattern Blood Pressure 122/72 Blood Pressure Mean 87 Blood Pressure Position Pulse Oximetry 96 98 96 Oxygen Delivery Method Room Air Room Air Room Air Sepsis Recent Fever Within 48 Hours Sepsis New/Unexplained Change in Mental Status Sepsis Action Taken by Nursing 03/12/19 19:30 03/12/19 19:31 03/12/19 19:54 Temperature Temperature Source Pulse Rate 62 64 63 Pulse Rate from SpO2 Sensor 64 64 Pulse Rhythm Pulse Strength Respiratory Rate 24 21 21 Respiratory Effort / Characteristics Respiratory Depth Respiratory Pattern Blood Pressure 119/50 L 141/71 H Blood Pressure Mean 62 92 Blood Pressure Position Pulse Oximetry 96 94 Oxygen Delivery Method Room Air Room Air Sepsis Recent Fever Within 48 Hours Sepsis New/Unexplained Change in Mental Status Sepsis Action Taken by Nursing 03/12/19 20:00 03/12/19 20:30 03/12/19 21:00 Temperature Temperature Source Pulse Rate 65 70 64 Pulse Rate from SpO2 Sensor 65 69 68 Pulse Rhythm Pulse Strength Respiratory Rate 19 17 18 Respiratory Effort / Characteristics Respiratory Depth Respiratory Pattern Blood Pressure 141/77 H 136/94 Blood Pressure Mean 92 110 Blood Pressure Position Pulse Oximetry 94 92 90 Oxygen Delivery Method Room Air Room Air Room Air Sepsis Recent Fever Within 48 Hours Sepsis New/Unexplained Change in Mental Status Sepsis Action Taken by Nursing 03/12/19 21:01 03/12/19 21:02 03/12/19 21:30 Temperature Temperature Source Pulse Rate 63 65 65 Pulse Rate from SpO2 Sensor 66 65 Pulse Rhythm Pulse Strength Respiratory Rate 17 25 H 16 Respiratory Effort / Characteristics Respiratory Depth Respiratory Pattern Blood Pressure 148/81 H Blood Pressure Mean 90 Blood Pressure Position Pulse Oximetry 95 91 Oxygen Delivery Method Room Air Room Air Sepsis Recent Fever Within 48 Hours Sepsis New/Unexplained Change in Mental Status Sepsis Action Taken by Nursing 03/12/19 21:31 03/12/19 22:00 03/12/19 22:01 Temperature Temperature Source Pulse Rate 66 67 69 Pulse Rate from SpO2 Sensor 65 65 67 Pulse Rhythm Pulse Strength Respiratory Rate 17 16 16 Respiratory Effort / Characteristics Respiratory Depth Respiratory Pattern Blood Pressure 112/70 123/40 L Blood Pressure Mean 80 79 Blood Pressure Position Pulse Oximetry 97 92 92 Oxygen Delivery Method Room Air Room Air Room Air Sepsis Recent Fever Within 48 Hours Sepsis New/Unexplained Change in Mental Status Sepsis Action Taken by Nursing Vital signs reviewed. General: Obese. Chronically ill-appearing 53 year old female, in no significant distress. HEENT: No scleral icterus, PERRLA, neck supple. Atraumatic. Cardiovascular: Regular rate and rhythm, no extra sounds. Pulmonary: Clear to auscultation bilaterally, normal work of breathing. Abdomen: Soft, morbidly obese, nontender, nondistended, positive bowel sounds. Musculoskeletal: Atraumatic, no peripheral edema. Neurologic: Somnolent, but answers questions. States that it is 2002. Aware of person and place, but unable to answer questions regarding preceding events, full strength in all 4 extremities. Cranial nerves 2 through 12 grossly intact. Skin: Warm, dry, no rash Course Course 1853: Past medical records reviewed. The patient was evaluated in room A3. A complete history and physical exam was performed. 2145: I checked on and updated the patient on all results. The patient's caregiver was at the bedside who states that he was concerned as the patient was aware of him but was unable to say why she was in the ED. He states that earlier the patient knew she wanted to wash her hands but was not turning it on properly and not grabbing the faucet correctly. The caregiver states that the patient had a period today where she was able make beef stew and apple pie. The caregiver states that the patient has not had her medications in 3 days. 2151: I discussed the case with Dr. Weller Hospitalist who accepts the patient for further evaluation. Administered Medications Discontinued Medications Sodium Chloride (Nss 1000ml) 1,000 mls @ 125 mls/hr IV .Q8H PAUL Stop: 03/13/19 02:59 Last Infusion: 03/12/19 22:36 Dose: 0 mls/hr Documented by: [id number] Admin: 03/12/19 19:26 Dose: 125 mls/hr Documented by: [id number] Insulin Human Regular (Novolin R U-100 Per Unit) 10 units SC NOW STA Stop: 03/12/19 21:12 Last Admin: 03/12/19 21:20 Dose: 10 units Documented by: [id number] Cosigned by: [id number] Naloxone HCl (Narcan) 0.4 mg IV NOW STA Stop: 03/12/19 19:02 Last Admin: 03/12/19 19:25 Dose: 0.4 mg Documented by: [id number] Medical Decision Making Differential Diagnosis Differential diagnoses includes but is not limited to toxic, metabolic, infectious, traumatic, cardiac, neurologic, hematologic, psychiatric and inflammatory etiologies. Medical Records Attestation: I reviewed the patient's medical records. Home Medications Current Medication List: was personally reviewed by me Laboratory Data Attestation: I reviewed the patient's lab results. Result diagrams: 03/12/19 19:31 03/12/19 19:31 Lab Results 03/12/19 03/12/19 Range/Units 19:31 19:31 WBC 6.66 (4.8-10.8) K/uL RBC 3.91 L (4.2-5.4) M/uL Hgb 12.1 (12.0-16.0) g/dL Hct 36.0 L (37-47) % MCV 92.1 (80-100) fL MCH 30.9 (25-34) pg MCHC 33.6 (32-36) g/dL RDW Std Deviation 55.3 H (36.4-46.3) fL RDW Coeff of Mari 16.5 H (11.5-14.5) % Plt Count 139 (130-400) K/uL MPV 9.3 (7.4-10.4) fL Immature Gran % (Auto) 0.2 % Neut % (Auto) 60.3 % Lymph % (Auto) 24.8 % [place] % (Auto) 10.2 % Eos % (Auto) 3.9 % Baso % (Auto) 0.6 % Immature Gran # (Auto) 0.01 (0.00-0.02) K/uL Neut # (Auto) 4.02 (1.4-6.5) K/uL Lymph # (Auto) 1.65 (1.2-3.4) K/uL [place] # (Auto) 0.68 H (0.11-0.59) K/uL Eos # (Auto) 0.26 (0-0.5) K/uL Baso # (Auto) 0.04 (0-0.2) K/uL Sodium 135 L (136-145) mmol/L Potassium 4.4 (3.5-5.1) mmol/L Chloride 103 (98-107) mmol/L Carbon Dioxide 24 (21-32) mmol/L Anion Gap 8.0 (3-11) BUN 20 H (7-18) mg/dl Creatinine 1.32 H (0.6-1.2) mg/dl Est Cr Clr Drug Dosing 70.2 ml/min Est GFR ( Amer) 52.5 Est GFR (Non-Af Amer) 45.3 BUN/Creatinine Ratio 15.4 (10-20) Glucose 388 H* (70-99) mg/dl Calcium 8.7 (8.5-10.1) mg/dl Magnesium 2.0 (1.8-2.4) mg/dl Total Bilirubin 1.2 H (0.2-1) mg/dl AST 31 (15-37) U/L ALT 23 (12-78) U/L Alkaline Phosphatase 100 (45-117) U/L Troponin I < 0.015 (0-0.045) ng/ml Total Protein 7.0 (6.4-8.2) gm/dl Albumin 2.7 L (3.4-5.0) gm/dl Globulin 4.3 H (2.5-4.0) gm/dl Albumin/Globulin Ratio 0.6 L (0.9-2) Beta-Hydroxybutyric Acd 1.14 (0.2-2.81) mg/dl TSH 15.000 H (0.300-4.500) uIu/ml Free T4 0.76 L (0.8-1.6) ng/dl Imaging Data Radiologist's Impression: Radiology results as stated below per my review and the radiologist's interpretation: XR chest 1V portable CLINICAL HISTORY: 53 years-old Female presenting with weakness. TECHNIQUE: Portable upright AP view of the chest was obtained. COMPARISON: 10/18/2018. FINDINGS: Evaluation degraded by portable technique and body habitus. This moderately limits diagnostic sensitivity. Cardiac silhouette moderately enlarged. Mild pulmonary vascular prominence. No focal opacity. No large effusion or pneumothorax. Osseous structures normal. Upper abdomen normal. IMPRESSION: Evaluation degraded by portable technique and body habitus. This moderately limits diagnostic sensitivity. 1. Cardiomegaly and mild 5 overload. No reid pulmonary edema. Electronically signed by: Jann Cedillo M.D. 03/12/2019 7:[address] head/brain wo con CLINICAL HISTORY: 53 years-old Female presenting with AMS, confusion. TECHNIQUE: Multidetector CT imaging of the head was performed without the use of intravenous contrast. IV contrast: None. One or more dose lowering techniques were used consistent with the principles of ALARA (as low as reasonably achievable), including automatic exposure control, mA or kV adjustment to individual patient size, and/or use of iterative reconstruction. COMPARISON: 05/12/2018. CT DOSE (mGy.cm): The estimated cumulative dose is 1228.24 mGy.cm. FINDINGS: Container Washer Machine topogram: The patient is edentulous. Ventricles and sulci normal in size. No hemorrhage. Brain parenchyma normal in appearance with preserved barahona-white differentiation. No acute territorial infarct. No mass effect or midline shift. No extra-axial fluid collection. Paranasal sinuses and mastoid air cells clear. Calvarium intact. IMPRESSION: 1. No acute intracranial abnormality. Electronically signed by: Jann Cedillo M.D. 03/12/2019 7:55 PM ECG Data Attestation: I personally reviewed and interpreted this ECG as follows: Indication: + altered mental status Rate (beats per minute): 62 Rhythm: + sinus rhythm ECG Intervals/blocks: + First degree AV block and + Prolonged QT (462) ECG ST segments: no ST depression and no ST elevation ECG Findings: no PACs and no PVCs Blood Pressure Blood Pressure Findings: Elevated blood pressure Blood Pressure Disposition: further management by hospitalist MDM Narrative This patient was evaluated and appeared to be in no significant distress. Patient was awake and able to interact however not able to answer questions appropriately. CT scan of the head was performed and is negative for acute intracranial abnormality. IV access was obtained and laboratory work was drawn. The patient was placed on the insulation sprayer. Patient was given Narcan 0.4 mg IV without significant change. EKG reveals no significant acute change. Laboratory work reveals a blood glucose of 388. Patient's troponin is normal. A urine sample was not collected as the patient was confused and attempted to urinate on the floor. She then did not provide a sample in the specimen cup. Patient received IV hydration. Case was discussed with Dr. Gage of the hospitalist service will evaluate the patient for further management. Impression & Plan AMS (altered mental status), Hyperglycemia Discharge Plan Visit Data *Final* Discharge Date/Time: 03/12/19 23:13 Chief Complaint: Altered Mental Status Stated Complaint: AMS ED Provider: Katty Morgan Discharge Problem: AMS (altered mental status), Hyperglycemia Patient Disposition: Admitted As Inpatient Discharge Instructions Interventions: ED Discharge Assessment Last Done: 03/12/19 23:13 Discharge Problem: AMS (altered mental status) Qualifiers: Altered mental status type: unspecified Qualified Code(s): R41.82 - Altered mental status, unspecified The scribe's documentation has been prepared under my direction and personally reviewed by me in its entirety. I confirm that the note above accurately reflects all work, treatment, procedures, and medical decision making performed by me.
[2019-03-13 00:09] LABS: Allen Test Pos (Pos)
[2019-03-13] MEDS ORDERED: ALBUTEROL HFA 8 GM INHALER INH PRN (00:11)
[2019-03-13 00:20] LABS: Amphetamines+Metham, Urine Neg (Neg); Barbiturates, Urine Neg (Neg); Benzodiazepine, Urine Neg (Neg); Cocaine, Urine Neg (Neg); MDMA (Ecstacy), Urine Neg (Neg); Methadone, Urine Neg (Neg); Opiate, Urine Neg (Neg); Phencyclidine, Urine Neg (Neg)
--- NOTE | 2019-03-13 01:17 | History and Physical Report ---
DATE OF ADMISSION: 03/12/2019 CHIEF COMPLAINT: Altered mental status. HISTORY OF PRESENT ILLNESS: This is a 53-year-old female with morbid obesity, sleep apnea, noncompliant with bilevel positive airway pressure, she states she has bilevel positive airway pressure at home, but does not use daily, history of diabetes, hypothyroidism, diabetic polyneuropathy, hyperlipidemia, pulmonary embolism,hx of DVT on Xarelto; hypertension, recurrent idiopathic thrombophlebitis, history of MEEK liver cirrhosis, history of gastroesophageal reflux disease with esophagitis, history of spinal stenosis, history of drug dependence, migraines, bipolar 1 disorder, history of tobacco use disorder,, history of medical marijuana use. The patient also has a history of cellulitis of the abdominal wall, cellulitis of the lower extremities, small bowel obstruction, was brought in because of some confusion at home. The patient states since last two days, she is not feeling good. She is feeling sick. She could not explain exactly what causing sickness but she seems having some urinary incontinence, recently saw family doctor on 03/06/2019. at that time she was started on baclofen for chronic back pain and Remeron for depression and also has outpatient psychiatric referral for bipolar and depression. The patient is currently resting comfortably and hemodynamically stable, able to talk, give a history, oriented to name, can tell her date of , somewhat confused about the month, but she was able to tell it is February, but not able to tell the name of the hospital. She has some mild headache. Denies any dizziness. No blurred vision. No earache. No runny nose. No sore throat. No difficulty swallowing. Appetite is okay. Denies any cough. No fever. No chills. No chest pain. No shortness of breath. No abdominal pain. No diarrhea. No constipation. No blood in the stools or black stools. No burning micturition, but she states she is somewhat incontinent of urine lately. No erythema in the legs.Lives with critical care transport nurse. ALLERGIES: ALPRAZOLAM, HALOPERIDOL, IODINATED CONTRAST MEDIA, METFORMIN, MORPHINE, ADHESIVES, VANCOMYCIN, ACETAMINOPHEN, CODEINE, METHYLPARABEN, OXYMORPHONE, PREGABALIN, GABAPENTIN, SULFA ANTIBIOTICS AND PAPER TAPE. PAST MEDICAL HISTORY: As mentioned above. PAST SURGICAL HISTORY: Right knee arthroplasty, colonoscopy with biopsy, esophagogastroduodenoscopies, implant mesh with abdominal hernia repair, appendectomy, cholecystectomy, sinus surgery, total abdominal hysterectomy with removal of the tubes. MEDICATIONS: The patient is on baclofen 10 mg p.o. b.i.d., Trulicity 0.75 mg under skin once a week, Remeron 50 mg p.o. at bedtime, Compazine 5 mg p.o. t.i.d. p.r.n., insulin Glargine 77 units b.i.d., insulin NovoLog FlexPen sliding scale, levothyroxine 125 mcg daily, ranitidine 300 mg p.o. daily, Protonix 40 mg p.o. daily, Nystatin topical to affected area b.i.d., albuterol 2 puffs every 4 hours p.r.n., Reglan 5 mg p.o. t.i.d. p.r.n., potassium chloride ER 10 mEq 2 times daily, hydroxyzine 10 mg p.o. q. 6 hours p.r.n., Cymbalta 30 mg once daily, Cymbalta 60 mg p.o. b.i.d., Xarelto 20 mg p.o. daily, spironolactone 25 mg p.o. daily, Lasix 40 mg alternating with 60 mg on Mondays, Wednesdays and Fridays, Zantac 150 mg b.i.d., Bentyl 10 mg p.o. q.i.d. p.r.n., betamethasone 0.05% applied to affected area b.i.d. and oxygen 3 liters at bedtime. FAMILY HISTORY: Significant for father had liver cancer. Brother had liver cirrhosis and alcoholic. Mother had heart disorder and lung disorder. Brother from renal failure and cirrhosis. SOCIAL HISTORY: Currently living with a caregiver. Smokes quarter pack a day for last 34 years. No alcohol use. No drug use. REVIEW OF SYMPTOMS: As per HPI. Rest of review of symptoms negative. PHYSICAL EXAMINATION: GENERAL: The patient is morbidly obese, not in acute distress. VITAL SIGNS: Temperature 36.7, pulse 69, respiratory rate 16, blood pressure 123/40 and oxygen 92% on room air. HEENT: No pallor. No icterus. Pupils are equal, round and reactive to light. NECK: No neck masses. Supple. CARDIOVASCULAR: S1, S2 heard. Regular rate and rhythm. No murmur. No gallop. RESPIRATORY SYSTEM: Normal AP diameter. No accessory muscle use. No wheezing. No crackles. ABDOMEN: Soft. Bowel sounds present. Nontender. No distention. NEUROLOGIC: Cranial nerves II through XII are grossly intact. Alert and awake and oriented times to name, could tell the month with help , could not tell where she is.. Obeys simple commands. Moves extremities. Nonfocal. EXTREMITIES: Bilateral lower extremities with trace bilateral edema present. No erythema seen. LABORATORY DATA: WBC 6.6, hemoglobin 12.1, hematocrit 36 and platelets 139. Sodium 135, potassium 4.4, chloride 103, bicarbonate 24, BUN 20, creatinine 1.32, serum glucose 388, calcium 8.7, magnesium 2, total bilirubin 1.2, AST 31, ALT 23 and alkaline phosphatase 100. Troponin I less than 0.015. Beta hydroxybutyrate acid 1.14. Thyroid stimulating hormone 15. Free T4 of 0.76. Chest x-ray, cardiomegaly and mild volume overload. No reid pulmonary edema. CT of the head, no acute intracranial abnormality. ELECTROCARDIOGRAM: Sinus rhythm with first-degree atrioventricular block at a rate of 62, no significant change was found. ASSESSMENT AND PLAN: This is a 53-year-old female who presents with altered mental status. 1. Altered mental status. There are no obvious signs of infection. Laboratories were okay except for elevated sugars and mild elevation of creatinine. Free T4 is slightly low. CT head is unremarkable. The patient is noncompliant with bilevel positive airway pressure. We will get arterial blood gas studies and ammonia levels. she used to be on pain medication in the past, currently not on any. We will get urine drug screen. Closely monitor on the tele floor. Follow the repeat laboratories. If not improving, we will get electroencephalogram and MRI scan and Neurology consult. 2. History of depression and bipolar 1. PCP recently started on Remeron which will be held for now.To see Psychiatry as outpatient. 3. History of diabetes. We will continue her home insulin Glargine and sliding scale. Hold Trulicity. Follow hba1c levels and follow blood sugars. 4. Hypothyroidism. Thyroid stimulating hormone is high and free T4 is borderline low.Will Follow repeat laboratories in a.m. May need adjustment of medications and follow with primary care physician. 5. Obstructive sleep apnea, noncompliant with bipap. Needs counselling. Will follow ABg. 6. History of pulmonary embolism and deep vein thrombosis, on Xarelto. 7. History of hypertension, on diuretics. We will monitor the blood pressure. 8. History of liver cirrhosis, on Aldactone and Lasix with potassium supplement. We will follow the ammonia level. Getting fluids. We will monitor for any volume overload. 9. Morbid obesity, needs counseling. 10. Gastroesophageal reflux disease. Continue on Protonix and Zantac. 11. History of spinal stenosis, used to be on pain meds in he past. Recently started on baclofen by PCP which will held for now Physical therapy and occupational therapy when the patient is stable. 12. Bipolar disorder Continue Cymbalta. Holding Remeron for now. 13. History of recurrent cellulitis. Currently not on any suppressive abx. 14. Chronic diastolic congestive heart failure. Continue home Lasix and Aldactone. Monitor for any volume overload. 15. Deep venous thrombosis prophylaxis, Xarelto. DISPOSITION: Admit to tele floor. Expect discharge home and follow with family doctor. Level 1 full code. Physical therapy and occupational therapy prior to discharge. Social Service to help with discharge planning. Addendum: ammonia level came back as 111. Mostly hepatic encephalopathy. Started on lactulose. GI consult in am. CYNTHIA
[2019-03-13 04:57] LABS: Basophils # (auto) 0.03 K/uL (0-0.2); Basophils % (auto) 0.5 %; Eosinophils % (auto) 3.6 %; Hematocrit (blood only) 34.4 % (37-47); Hemoglobin 11.5 g/dL (12.0-16.0); Immature Granulocytes # (auto) 0.01 K/uL (0.00-0.02); Immature Granulocytes % (auto) 0.2 %; Lymphocytes # (auto) 2.08 K/uL (1.2-3.4); Lymphocytes % (auto) 37.7 %; Mean Corpuscular Hemoglobin 30.5 pg (25-34); Mean Corpuscular Hgb Conc 33.4 g/dL (32-36); Mean Corpuscular Volume 91.2 fL (80-100); Mean Platelet Volume 8.7 fL (7.4-10.4); Monocytes # (auto) 0.54 K/uL (0.11-0.59); Monocytes % (auto) 9.8 %; Neutrophils # (auto) 2.66 K/uL (1.4-6.5); Neutrophils % (auto) 48.2 %; Platelet Count 128 K/uL (130-400); RDW Coefficient of Variation 16.3 % (11.5-14.5); RDW Standard Deviation 54.1 fL (36.4-46.3); Red Blood Count 3.77 M/uL (4.2-5.4); White Blood Count 5.52 K/uL (4.8-10.8)
[2019-03-13 05:12] LABS: BUN Creatinine Ratio 18.5 (10-20); Calcium 8.3 mg/dl (8.5-10.1); Creatinine Clr Calc Pharmacy 90.4 ml/min; Est GFR (African American) 71.7; Est GFR (Non-African American) 61.9; Magnesium 1.9 mg/dl (1.8-2.4); Potassium 3.8 mmol/L (3.5-5.1)
[2019-03-13 05:22] LABS: Thyroid Stimulating Hormone 18.8 uIu/ml (0.300-4.500)
[2019-03-13 05:49] LABS: Estimated Average Glucose 255 mg/dl; Hemoglobin A1C 10.5 % (4.5-5.6)
[2019-03-13] MEDS: LEVOTHYROXINE SODIUM 125 MCG TABLET PO SCH (06:39)
--- NOTE | 2019-03-13 06:52 | Hospitalist Progress Note ---
Date of Service March 13, 2019 Assessment & Plan (1) AMS (altered mental status): ASSESSMENT AND PLAN: This is a 53-year-old female who presents with altered mental status. 1. Altered mental status/Hepatic Encephalopathy. There are no obvious signs of infection. She was found to have an Ammonia level of 111 2. History of depression and bipolar see Psychiatry as outpatient. 3. History of diabetes. We will continue her home insulin Glargine and sliding scale. Hold Trulicity. 4. Hypothyroidism. Thyroid stimulating hormone is high and free T4 is borderline low. 5. Obstructive sleep apnea, noncompliant with BIPAP-On BIPAP now 6. History of pulmonary embolism and deep vein thrombosis, on Xarelto. 7. History of hypertension, on diuretics. We will monitor the blood pressure. 8. History of liver cirrhosis, on Aldactone and Lasix with potassium supplement. Lactulose, Zifaximin 9. Morbid obesity, needs counseling. 10. Gastroesophageal reflux disease. Continue on Protonix and Zantac. 11. History of spinal stenosis, Physical therapy and occupational therapy 12. Bipolar disorder, Continue Cymbalta. Holding Remeron for now. 13. History of Chronic Pain currently not on pain medications. Physical therapy and occupational therapy. 14. Chronic diastolic congestive heart failure. Continue home Lasix and Aldactone. 15. Deep venous thrombosis prophylaxis, Xarelto. DISPOSITION: DC tele. Expect discharge home and follow with family doctor. Level 1 full code. Physical therapy and occupational therapy prior to discharge. Social Service to help with discharge planning. Labs checked ROS-No Headache, No Visual Changes, No Nausea, No Vomiting, No Fever, No Chills, No Neck Pain or Stiffness, No Chest Pain, No Palpitations, No SOB, No CHOWDHURY, No Cough, No Sputum, No Wheezing, No Abdominal Pain, No Diarrhea, No Hematemesis, No Hemoptysis, No Unexpected Weight Loss, No Flank pain, No Melena, No Hematochezia, No Frequency, No Urgency, No Burning, No Hematuria, No Rashes, No Diaphoresis. Appetite is Normal Physical Exam Gen-AAO x 3, NAD, Afebrile, Obese, on BIPAP, Comfortable, Felling better Head-NCAT, EOMI, PERRLA, Anicteric Sclera, No Posterior Pharyngeal Erythema Neck-Supple, No JVD, No Thyromegaly, No Masses, No LAD, No Bruits Lungs-Clear to Auscultation Bilaterally, No Rales, No Rhonchi, No Wheezing, No Crepitus Chest-No S4, +S1, +S2, No S3, No Murmurs, No Rubs, No Gallops, No Ectopy Abdomen-Soft, Bowel Sounds Present, Obese, Non Tender, Non Distended, No Hepatomegaly, No Splenomegaly, No Palpable Masses, No Rebound, No Rigidity, No Guarding Musculoskeletal-Full Range of Motion Bilaterally, No CVAT Extremities-No Cyanosis, No Clubbing, No Edema Nuero-Cranial Nerves II-XII grossly intact, Motor WNL, DTRs WNL, Strength WNL, Non Focal Psych-Normal Mood Results & Data Vital Signs (Past 12 Hours) Vital Signs Temp Pulse Pulse Resp BP BP Pulse Ox 03/13/19 03:53 67 18 100 03/13/19 00:00 37 C 74 14 141/95 H 100 03/12/19 23:51 36.7 C 65 16 130/58 L 98 03/12/19 23:42 21 100 03/12/19 23:12 71 20 122/62 92 03/12/19 22:01 69 16 123/40 L 92 03/12/19 22:00 67 16 92 03/12/19 21:31 66 17 112/70 97 03/12/19 21:30 65 16 03/12/19 21:02 65 25 H 91 03/12/19 21:01 63 17 148/81 H 95 03/12/19 21:00 64 18 90 03/12/19 20:30 70 17 136/94 92 03/12/19 20:00 65 19 141/77 H 94 03/12/19 19:54 63 21 141/71 H 94 03/12/19 19:31 64 21 119/50 L 96 03/12/19 19:30 62 24 03/12/19 19:22 63 16 96 03/12/19 19:21 63 17 122/72 98 03/12/19 19:11 96 03/12/19 19:00 66 14 99 03/12/19 18:55 65 23 107/66 03/12/19 18:49 36.7 C 67 18 147/82 H 96 (1) AMS (altered mental status) Altered mental status type: unspecified Qualified Code(s): R41.82 - Altered mental status, unspecified
[2019-03-13 07:47] LABS: HCO3 ABG 22 mmol/L (19-24); Oxygen Saturation ABG 93.5 % (90-95); PCO2 ABG 31 mmHg (35-46); PO2 ABG 69 mm/Hg (80-95); pH ABG 7.47 (7.35-7.45)
[2019-03-13 07:48] LABS: Allen Test Pos (Pos)
[2019-03-13] MEDS: METOCLOPRAMIDE HCL 5 MG TABLET PO SCH ×3 (08:24→17:07)
[2019-03-13] MEDS: DULOXETINE HCL 30 MG CAP PO SCH (08:24)
[2019-03-13] MEDS: INSULIN ASPART 100 UNITS/ML 3 ML PEN SC SCH ×4 (08:24→20:27)
[2019-03-13] MEDS: POTASSIUM CHLORIDE 10 MEQ TABCR PO SCH ×2 (08:25→17:07)
[2019-03-13] MEDS: LACTULOSE SYRUP 30 GM/45 ML UDP PO SCH ×3 (08:25→21:23)
[2019-03-13] MEDS: SPIRONOLACTONE 25 MG TAB PO SCH (08:25)
[2019-03-13] MEDS: PANTOprazole 40 MG TAB PO SCH (08:25)
[2019-03-13] MEDS: RIFAXIMIN 550 MG TABLET PO SCH ×2 (08:26→20:23)
[2019-03-13] MEDS: RIVAROXABAN 20 MG TAB PO SCH (08:26)
[2019-03-13] MEDS: FUROSEMIDE 40 MG TAB PO SCH (08:27)
[2019-03-13] MEDS: INSULIN GLARGINE SOLOSTAR 100 UNITS/ML 3 ML PEN SQ SCH ×2 (08:28→20:25)
[2019-03-13] MEDS: NYSTATIN OINT 15 GM TUBE EXT SCH ×2 (08:28→20:24)
[2019-03-13] MEDS: DULOXETINE HCL 60 MG CAP PO SCH ×2 (08:47→20:25)
--- NOTE | 2019-03-13 10:12 | Gastrointestinal Consultation ---
Date of Consultation March 13, 2019 Assessment & Plan (1) AMS (altered mental status): 53 year old female with history of obesity, RIMA, hypothyroidism, T2DM, dyslipidemia, DVT on xarelto, HTN, history of cirrhosis, GERD, bipoloar w/ cirrhosis on imaging admitted w/ confusion, elevated ammonia. MELD is 9 Consider addition evaluation for confusion Head CT Chest XR Blood culture Urine culture Given cirrhotic appearing liver, elevated ammonia ok to start Lactulose titrated to 3-5 BM daily If unable to tolerate, please add xifaxan 550 BID She will need OP GI follow up for cirrhosis management to include MELD labs, HCC screen and EGD for varices screen Will sign off. Thank you for allowing us to participate in the care of this patient. Please call with any acute changes, questions or concerns. Please see addendum below with additional recommendation from my supervising physician. Present on Admission?: Yes History of Present Illness Reason for Consultation: elevated ammonia Requesting Physician: Ivonne Attending Physician: Jarod Coronado, History of Present Illness 53 year old female with history of obesity, RIMA, hypothyroidism, T2DM, dyslipidemia, DVT on xarelto, HTN, history of cirrhosis, GERD, bipoloar and others below who presents from home w/ confusion - GI asked to evalauted for elevated ammonia level. Pt was seen and evaluated, chart reviewed. She notes a history of cirrhosis. She notes previously evaluated by [facility] but I was unable to find these records. Suggests that she has been told about her liver scarring a while ago but has not had any routing care. Denies any abd pain. No nausea, vomiting. No black/bloody stools. She is awake, alert to person and place but not to time. head CT negative CTAP 10/2018: No acute process..Hepatic cirrhosis with mild splenomegaly. No change from the prior exam.Slight body wall anasarca. Allergies Allergy/AdvReac Type Severity Reaction Status Date / Time alprazolam Allergy Intermediate MAKES Verified 12/07/18 11:38 LOOPY,DO AND SAY SILLY THINGS haloperidol Allergy Intermediate nervous Verified 12/07/18 11:38 and anxious Iodinated Contrast Media Allergy Intermediate hives-PT Verified 12/07/18 11:38 DENIES SEE NOTE metformin Allergy Intermediate HANDS FEET Verified 12/07/18 11:38 FACE NUMB morphine Allergy Intermediate SWELLING Verified 12/07/18 11:38 LEGS AND FEET adhesive Allergy Mild RED RASH Verified 12/07/18 11:38 CAUSED BY PAPER TAPE vancomycin AdvReac Severe renal Verified 12/07/18 11:38 failure, required dialysis x 3 MONTHS acetaminophen AdvReac Intermediate Liver Verified 12/07/18 11:38 problems. codeine AdvReac Intermediate UPSET Verified 12/07/18 11:38 STOMACH methylparaben AdvReac Intermediate FLUID Verified 12/07/18 11:38 RETENTION oxymorphone AdvReac Intermediate FLUID Verified 12/07/18 11:38 RETENTION pregabalin AdvReac Intermediate Aphasia/Speech Verified 12/07/18 11:38 impairments gabapentin AdvReac Mild Aphasia/Speech Verified 12/07/18 11:38 impairments Sulfa (Sulfonamide AdvReac Mild GI SYMPTOMS Verified 12/07/18 11:38 Antibiotics) PAPER TAPE Allergy Severe rash Uncoded 12/07/18 11:38 Home Medications Home Medications Medication Instructions Recorded Confirmed Type albuterol sulfate [ProAir 2 inh INHALATION Q4 PRN 03/12/19 03/12/19 History RespiClick] baclofen 10 mg PO BID 03/12/19 03/12/19 History betamethasone dipropionate 1 applic TOPICAL .BID UD PRN 03/12/19 03/12/19 History dicyclomine 10 mg PO QID PRN 03/12/19 03/12/19 History dulaglutide [Trulicity] 0.75 mg SUBCUT WK 03/12/19 03/12/19 History duloxetine [Cymbalta] 30 mg PO DAILY 03/12/19 03/12/19 History duloxetine [Cymbalta] 60 mg PO BID 03/12/19 03/12/19 History furosemide [Lasix] 40 mg PO SUTUTHSA 03/12/19 03/12/19 History furosemide [Lasix] 60 mg PO MOWEFR 03/12/19 03/12/19 History hydroxyzine HCl 10 mg PO Q6 PRN 03/12/19 03/12/19 History insulin aspart U-100 [Novolog 0 unit SUBCUT TIDM 03/12/19 03/12/19 History Flexpen U-100 Insulin] insulin glargine [Basaglar KwikPen 77 unit SUBCUT BID 03/12/19 03/12/19 History U-100 Insulin] levothyroxine 125 mcg PO DAILY 03/12/19 03/12/19 History metoclopramide HCl 5 mg PO AC 03/12/19 03/12/19 History mirtazapine [Remeron] 15 mg PO HS 03/12/19 03/12/19 History nystatin 1 applic TOPICAL BID 03/12/19 03/12/19 History pantoprazole [Protonix] 40 mg PO DAILY 03/12/19 03/12/19 History potassium chloride 10 meq PO BID 03/12/19 03/12/19 History prochlorperazine maleate 5 mg PO TID PRN 03/12/19 03/12/19 History [Compazine] ranitidine HCl 300 mg PO DAILY 03/12/19 03/12/19 History ranitidine HCl [Zantac] 150 mg PO BID 03/12/19 03/12/19 History rivaroxaban [Xarelto] 20 mg PO DAILY 03/12/19 03/12/19 History spironolactone [Aldactone] 25 mg PO DAILY 03/12/19 03/12/19 History Patient History Medical History Abdominal pain (Resolved) Abdominal pain, epigastric (Inactive) Abdominal wall cellulitis (Resolved) Abdominal wall cellulitis (Acute) Acute generalized abdominal pain (Acute) Acute hyperglycemia (Inactive) Acute hypokalemia (Resolved) Anasarca Anemia (Acute) Ankle pain (Resolved) Atrial fibrillation by electrocardiogram (Acute) Atypical syncope (Resolved) Back pain (Acute) Bladder pain (Acute) Bowel obstruction (Resolved) Cauda equina compression (Acute) Cellulitis (Resolved) Cellulitis and abscess of trunk (Resolved Unknown) Chest pain, atypical (Acute) Chronic low back pain (Acute) Cirrhosis Contusion of ankle (Resolved) Contusion of periorbital region, left (Resolved) 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) Deep vein blood clot of right lower extremity (Chronic) Dehydration (Resolved) Diabetic neuropathy (Chronic 01/04/11) DM (diabetes mellitus screen) (Chronic) Drug-seeking behavior (Acute) Exacerbation of chronic back pain (Resolved) Failure of outpatient treatment (Acute) Flank pain (Acute) Fracture of fourth metatarsal bone of left foot (Resolved) Gastritis (Acute) GI bleed (Acute) Headache (Acute) Hernia (Chronic) Hyperglycemia (Resolved) Hypokalemia (Resolved) Hypothyroid (Chronic) Hypothyroidism (Acute) Hypothyroidism Hypoxia (Resolved) Incarcerated ventral hernia (Resolved) Incisional irritation (Resolved) Incisional pain (Resolved) Inguinal lymphadenopathy (Resolved 02/19/11) Kidney stone Left flank pain (Acute) Left low back pain (Acute) 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) USP current use of 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 (Chronic) Lumbar disc disease (Acute) Lumbar radiculopathy (Acute) Medically noncompliant (Acute) Morbid obesity (Resolved) Morbid obesity with BMI of 60.0-69.9, adult (Chronic) Noncompliance by refusing service (Acute) Obesity (Acute) Pain due to ureteral stent (Acute) Pain, dental (Resolved) Periumbilical discomfort (Acute) Pyelonephritis (Acute) Rectal bleeding Renal colic (Acute) Renal colic on right side (Resolved) Renal insufficiency (Resolved) Right sided abdominal pain (Acute) Right-sided chest wall pain (Acute) Septic shock Severe sepsis (Acute) Splenomegaly, not elsewhere classified (Chronic) Supratherapeutic INR (Acute) Syncope (Acute) UTI (urinary tract infection) (Acute) Weight gain, abnormal Surgical History Hx of ventral hernia repair Family History Other Family history non-contributory Social History Preferred Language: Turkmen Communication Ability: Effective Billing Analyst Required: No Beliefs That Will Affect Care: None Current Living Situation: Alone Current Living Situation Comment: Unable to obtain information-pt confused current occupational status: disabled Other Information That Helps Us Care for You: No Feels Safe at Home: Yes Safety Concerns: Feels Safe At This Time Smoking Status: Current every day smoker Tobacco Type: cigarettes ; Cigarettes Per Day: 10 ; Hx Alcohol Use: No Hx Substance Use: No Review of Systems Constitutional: no chills and no fatigue Respiratory: no cough and no dyspnea Cardiovascular: no chest pain and no radiating jaw, neck or arm pain Gastrointestinal: no belching, no coffee ground emesis, no hematemesis, no blood in stools and no melena Physical Exam Constitutional: + morbidly obese; no acute distress Neck: trachea midline Respiratory: normal respiratory effort Cardiovascular: Rate/Rhythm: regular rate and regular rhythm Gastrointestinal (Abdomen): normal bowel sounds, soft, nontender, no hepatosplenomegaly Skin: no rashes, warm and dry Results & Data Vital Signs (Past 12 Hours) Vital Signs Temp Pulse Pulse Pulse Resp BP BP 03/13/19 09:46 36.8 C 71 20 03/13/19 07:20 37.1 C 80 17 137/70 03/13/19 03:53 67 18 03/13/19 00:00 37 C 74 14 141/95 H 03/12/19 23:51 36.7 C 65 16 130/58 L 03/12/19 23:42 21 03/12/19 23:12 71 20 122/62 BP Pulse Ox 03/13/19 09:46 112/77 94 03/13/19 07:20 97 03/13/19 03:53 100 03/13/19 00:00 100 03/12/19 23:51 98 03/12/19 23:42 100 03/12/19 23:12 92 Laboratory Results 03/13/19 03/13/19 03/13/19 Range/Units Unknown 07:34 07:21 WBC (4.8-10.8) K/uL RBC (4.2-5.4) M/uL Hgb (12.0-16.0) g/dL Hct (37-47) % MCV (80-100) fL MCH (25-34) pg MCHC (32-36) g/dL RDW Std Deviation (36.4-46.3) fL RDW Coeff of Mari (11.5-14.5) % Plt Count (130-400) K/uL MPV (7.4-10.4) fL Immature Gran % (Auto) % Neut % (Auto) % Lymph % (Auto) % [place] % (Auto) % Eos % (Auto) % Baso % (Auto) % Immature Gran # (Auto) (0.00-0.02) K/uL Neut # (Auto) (1.4-6.5) K/uL Lymph # (Auto) (1.2-3.4) K/uL [place] # (Auto) (0.11-0.59) K/uL Eos # (Auto) (0-0.5) K/uL Baso # (Auto) (0-0.2) K/uL ABG pH 7.47 H (7.35-7.45) ABG pCO2 31 L (35-46) mmHg ABG pO2 69 L (80-95) mm/Hg ABG HCO3 22 (19-24) mmol/L ABG O2 Saturation 93.5 (90-95) % ABG Base Excess -1.0 (-9-1.8) mEq/L Kermit Test Pos (Pos) Barometric Pressure 726.6 mm/Hg Oxygen Given Room Air Sodium (136-145) mmol/L Potassium (3.5-5.1) mmol/L Chloride (98-107) mmol/L Carbon Dioxide (21-32) mmol/L Anion Gap (3-11) BUN (7-18) mg/dl Creatinine (0.6-1.2) mg/dl Est Cr Clr Drug Dosing ml/min Est GFR ( Amer) Est GFR (Non-Af Amer) BUN/Creatinine Ratio (10-20) Glucose (70-99) mg/dl POC Glucose 245 H (70-99) Estimat Average Glucose mg/dl Hemoglobin A1c (4.5-5.6) % Calcium (8.5-10.1) mg/dl Magnesium (1.8-2.4) mg/dl Total Bilirubin (0.2-1) mg/dl AST (15-37) U/L ALT (12-78) U/L Alkaline Phosphatase (45-117) U/L Ammonia (11-32) umol/L Troponin I (0-0.045) ng/ml Total Protein (6.4-8.2) gm/dl Albumin (3.4-5.0) gm/dl Globulin (2.5-4.0) gm/dl Albumin/Globulin Ratio (0.9-2) Beta-Hydroxybutyric Acd (0.2-2.81) mg/dl TSH (0.300-4.500) uIu/ml Free T4 (0.8-1.6) ng/dl Urine Color Urine Appearance (Clear) Urine pH (4.5-7.5) Ur Specific [place] (1.000-1.030) Urine Protein (Negative) Urine Glucose (UA) (Negative) Urine Ketones (Negative) Urine Blood (Negative) Urine Nitrite (Negative) Urine Bilirubin (Negative) Urine Urobilinogen (Negative) Ur Leukocyte Esterase (Negative) Nasal Screen MRSA (PCR) Negative (Negative) Urine Opiates Screen (Neg) Ur Methadone, Qual (Neg) Urine Barbiturates (Neg) Ur Phencyclidine (PCP) (Neg) U Amphetamin/Meth Scrn (Neg) MDMA (Ecstasy) Screen (Neg) U Benzodiazepines Scrn (Neg) Ur Cocaine Metabolite (Neg) U Marijuana (THC) Screen (Neg) Hepatitis C Ab Screen (Neg) 03/13/19 03/13/19 03/13/19 Range/Units 04:48 04:47 04:47 WBC 5.52 (4.8-10.8) K/uL RBC 3.77 L (4.2-5.4) M/uL Hgb 11.5 L (12.0-16.0) g/dL Hct 34.4 L (37-47) % MCV 91.2 (80-100) fL MCH 30.5 (25-34) pg MCHC 33.4 (32-36) g/dL RDW Std Deviation 54.1 H (36.4-46.3) fL RDW Coeff of Mari 16.3 H (11.5-14.5) % Plt Count 128 L (130-400) K/uL MPV 8.7 (7.4-10.4) fL Immature Gran % (Auto) 0.2 % Neut % (Auto) 48.2 % Lymph % (Auto) 37.7 % [place] % (Auto) 9.8 % Eos % (Auto) 3.6 % Baso % (Auto) 0.5 % Immature Gran # (Auto) 0.01 (0.00-0.02) K/uL Neut # (Auto) 2.66 (1.4-6.5) K/uL Lymph # (Auto) 2.08 (1.2-3.4) K/uL [place] # (Auto) 0.54 (0.11-0.59) K/uL Eos # (Auto) 0.20 (0-0.5) K/uL Baso # (Auto) 0.03 (0-0.2) K/uL ABG pH (7.35-7.45) ABG pCO2 (35-46) mmHg ABG pO2 (80-95) mm/Hg ABG HCO3 (19-24) mmol/L ABG O2 Saturation (90-95) % ABG Base Excess (-9-1.8) mEq/L Kermit Test (Pos) Barometric Pressure mm/Hg Oxygen Given Sodium (136-145) mmol/L Potassium (3.5-5.1) mmol/L Chloride (98-107) mmol/L Carbon Dioxide (21-32) mmol/L Anion Gap (3-11) BUN (7-18) mg/dl Creatinine (0.6-1.2) mg/dl Est Cr Clr Drug Dosing ml/min Est GFR ( Amer) Est GFR (Non-Af Amer) BUN/Creatinine Ratio (10-20) Glucose (70-99) mg/dl POC Glucose (70-99) Estimat Average Glucose 255 mg/dl Hemoglobin A1c 10.5 H (4.5-5.6) % Calcium (8.5-10.1) mg/dl Magnesium (1.8-2.4) mg/dl Total Bilirubin (0.2-1) mg/dl AST (15-37) U/L ALT (12-78) U/L Alkaline Phosphatase (45-117) U/L Ammonia 92.0 H (11-32) umol/L Troponin I (0-0.045) ng/ml Total Protein (6.4-8.2) gm/dl Albumin (3.4-5.0) gm/dl Globulin (2.5-4.0) gm/dl Albumin/Globulin Ratio (0.9-2) Beta-Hydroxybutyric Acd (0.2-2.81) mg/dl TSH (0.300-4.500) uIu/ml Free T4 (0.8-1.6) ng/dl Urine Color Urine Appearance (Clear) Urine pH (4.5-7.5) Ur Specific [place] (1.000-1.030) Urine Protein (Negative) Urine Glucose (UA) (Negative) Urine Ketones (Negative) Urine Blood (Negative) Urine Nitrite (Negative) Urine Bilirubin (Negative) Urine Urobilinogen (Negative) Ur Leukocyte Esterase (Negative) Nasal Screen MRSA (PCR) (Negative) Urine Opiates Screen (Neg) Ur Methadone, Qual (Neg) Urine Barbiturates (Neg) Ur Phencyclidine (PCP) (Neg) U Amphetamin/Meth Scrn (Neg) MDMA (Ecstasy) Screen (Neg) U Benzodiazepines Scrn (Neg) Ur Cocaine Metabolite (Neg) U Marijuana (THC) Screen (Neg) Hepatitis C Ab Screen (Neg) 03/13/19 03/13/19 03/12/19 Range/Units 04:47 00:52 Unknown WBC (4.8-10.8) K/uL RBC (4.2-5.4) M/uL Hgb (12.0-16.0) g/dL Hct (37-47) % MCV (80-100) fL MCH (25-34) pg MCHC (32-36) g/dL RDW Std Deviation (36.4-46.3) fL RDW Coeff of Mari (11.5-14.5) % Plt Count (130-400) K/uL MPV (7.4-10.4) fL Immature Gran % (Auto) % Neut % (Auto) % Lymph % (Auto) % [place] % (Auto) % Eos % (Auto) % Baso % (Auto) % Immature Gran # (Auto) (0.00-0.02) K/uL Neut # (Auto) (1.4-6.5) K/uL Lymph # (Auto) (1.2-3.4) K/uL [place] # (Auto) (0.11-0.59) K/uL Eos # (Auto) (0-0.5) K/uL Baso # (Auto) (0-0.2) K/uL ABG pH (7.35-7.45) ABG pCO2 (35-46) mmHg ABG pO2 (80-95) mm/Hg ABG HCO3 (19-24) mmol/L ABG O2 Saturation (90-95) % ABG Base Excess (-9-1.8) mEq/L Kermit Test (Pos) Barometric Pressure mm/Hg Oxygen Given Sodium 139 (136-145) mmol/L Potassium 3.8 (3.5-5.1) mmol/L Chloride 108 H (98-107) mmol/L Carbon Dioxide 26 (21-32) mmol/L Anion Gap 5.0 (3-11) BUN 19 H (7-18) mg/dl Creatinine 1.02 (0.6-1.2) mg/dl Est Cr Clr Drug Dosing 90.4 ml/min Est GFR ( Amer) 71.7 Est GFR (Non-Af Amer) 61.9 BUN/Creatinine Ratio 18.5 (10-20) Glucose 233 H (70-99) mg/dl POC Glucose 253 H (70-99) Estimat Average Glucose mg/dl Hemoglobin A1c (4.5-5.6) % Calcium 8.3 L (8.5-10.1) mg/dl Magnesium 1.9 (1.8-2.4) mg/dl Total Bilirubin (0.2-1) mg/dl AST (15-37) U/L ALT (12-78) U/L Alkaline Phosphatase (45-117) U/L Ammonia (11-32) umol/L Troponin I (0-0.045) ng/ml Total Protein (6.4-8.2) gm/dl Albumin (3.4-5.0) gm/dl Globulin (2.5-4.0) gm/dl Albumin/Globulin Ratio (0.9-2) Beta-Hydroxybutyric Acd (0.2-2.81) mg/dl TSH 18.800 H (0.300-4.500) uIu/ml Free T4 (0.8-1.6) ng/dl Urine Color Urine Appearance (Clear) Urine pH (4.5-7.5) Ur Specific [place] (1.000-1.030) Urine Protein (Negative) Urine Glucose (UA) (Negative) Urine Ketones (Negative) Urine Blood (Negative) Urine Nitrite (Negative) Urine Bilirubin (Negative) Urine Urobilinogen (Negative) Ur Leukocyte Esterase (Negative) Nasal Screen MRSA (PCR) (Negative) Urine Opiates Screen Neg (Neg) Ur Methadone, Qual Neg (Neg) Urine Barbiturates Neg (Neg) Ur Phencyclidine (PCP) Neg (Neg) U Amphetamin/Meth Scrn Neg (Neg) MDMA (Ecstasy) Screen Neg (Neg) U Benzodiazepines Scrn Neg (Neg) Ur Cocaine Metabolite Neg (Neg) U Marijuana (THC) Screen Neg (Neg) Hepatitis C Ab Screen (Neg) 03/12/19 03/12/19 03/12/19 Range/Units Unknown 22:55 22:55 WBC (4.8-10.8) K/uL RBC (4.2-5.4) M/uL Hgb (12.0-16.0) g/dL Hct (37-47) % MCV (80-100) fL MCH (25-34) pg MCHC (32-36) g/dL RDW Std Deviation (36.4-46.3) fL RDW Coeff of Mari (11.5-14.5) % Plt Count (130-400) K/uL MPV (7.4-10.4) fL Immature Gran % (Auto) % Neut % (Auto) % Lymph % (Auto) % [place] % (Auto) % Eos % (Auto) % Baso % (Auto) % Immature Gran # (Auto) (0.00-0.02) K/uL Neut # (Auto) (1.4-6.5) K/uL Lymph # (Auto) (1.2-3.4) K/uL [place] # (Auto) (0.11-0.59) K/uL Eos # (Auto) (0-0.5) K/uL Baso # (Auto) (0-0.2) K/uL ABG pH 7.49 H (7.35-7.45) ABG pCO2 33 L (35-46) mmHg ABG pO2 62 L (80-95) mm/Hg ABG HCO3 24 (19-24) mmol/L ABG O2 Saturation 91.3 (90-95) % ABG Base Excess 1.4 (-9-1.8) mEq/L Kermit Test Pos (Pos) Barometric Pressure mm/Hg Oxygen Given 40% BIPAP Sodium (136-145) mmol/L Potassium (3.5-5.1) mmol/L Chloride (98-107) mmol/L Carbon Dioxide (21-32) mmol/L Anion Gap (3-11) BUN (7-18) mg/dl Creatinine (0.6-1.2) mg/dl Est Cr Clr Drug Dosing ml/min Est GFR ( Amer) Est GFR (Non-Af Amer) BUN/Creatinine Ratio (10-20) Glucose (70-99) mg/dl POC Glucose (70-99) Estimat Average Glucose mg/dl Hemoglobin A1c (4.5-5.6) % Calcium (8.5-10.1) mg/dl Magnesium (1.8-2.4) mg/dl Total Bilirubin (0.2-1) mg/dl AST (15-37) U/L ALT (12-78) U/L Alkaline Phosphatase (45-117) U/L Ammonia 111.3 H (11-32) umol/L Troponin I (0-0.045) ng/ml Total Protein (6.4-8.2) gm/dl Albumin (3.4-5.0) gm/dl Globulin (2.5-4.0) gm/dl Albumin/Globulin Ratio (0.9-2) Beta-Hydroxybutyric Acd (0.2-2.81) mg/dl TSH (0.300-4.500) uIu/ml Free T4 (0.8-1.6) ng/dl Urine Color Yellow Urine Appearance Clear (Clear) Urine pH 7.0 (4.5-7.5) Ur Specific [place] 1.020 (1.000-1.030) Urine Protein Negative (Negative) Urine Glucose (UA) 3+ H (Negative) Urine Ketones Negative (Negative) Urine Blood Negative (Negative) Urine Nitrite Negative (Negative) Urine Bilirubin Negative (Negative) Urine Urobilinogen Positive H (Negative) Ur Leukocyte Esterase Negative (Negative) Nasal Screen MRSA (PCR) (Negative) Urine Opiates Screen (Neg) Ur Methadone, Qual (Neg) Urine Barbiturates (Neg) Ur Phencyclidine (PCP) (Neg) U Amphetamin/Meth Scrn (Neg) MDMA (Ecstasy) Screen (Neg) U Benzodiazepines Scrn (Neg) Ur Cocaine Metabolite (Neg) U Marijuana (THC) Screen (Neg) Hepatitis C Ab Screen (Neg) 03/12/19 03/12/19 03/12/19 Range/Units 22:22 19:31 19:31 WBC (4.8-10.8) K/uL RBC (4.2-5.4) M/uL Hgb (12.0-16.0) g/dL Hct (37-47) % MCV (80-100) fL MCH (25-34) pg MCHC (32-36) g/dL RDW Std Deviation (36.4-46.3) fL RDW Coeff of Mari (11.5-14.5) % Plt Count (130-400) K/uL MPV (7.4-10.4) fL Immature Gran % (Auto) % Neut % (Auto) % Lymph % (Auto) % [place] % (Auto) % Eos % (Auto) % Baso % (Auto) % Immature Gran # (Auto) (0.00-0.02) K/uL Neut # (Auto) (1.4-6.5) K/uL Lymph # (Auto) (1.2-3.4) K/uL [place] # (Auto) (0.11-0.59) K/uL Eos # (Auto) (0-0.5) K/uL Baso # (Auto) (0-0.2) K/uL ABG pH (7.35-7.45) ABG pCO2 (35-46) mmHg ABG pO2 (80-95) mm/Hg ABG HCO3 (19-24) mmol/L ABG O2 Saturation (90-95) % ABG Base Excess (-9-1.8) mEq/L Kermit Test (Pos) Barometric Pressure mm/Hg Oxygen Given Sodium 135 L (136-145) mmol/L Potassium 4.4 (3.5-5.1) mmol/L Chloride 103 (98-107) mmol/L Carbon Dioxide 24 (21-32) mmol/L Anion Gap 8.0 (3-11) BUN 20 H (7-18) mg/dl Creatinine 1.32 H (0.6-1.2) mg/dl Est Cr Clr Drug Dosing 70.2 ml/min Est GFR ( Amer) 52.5 Est GFR (Non-Af Amer) 45.3 BUN/Creatinine Ratio 15.4 (10-20) Glucose 388 H* (70-99) mg/dl POC Glucose 335 H* (70-99) Estimat Average Glucose mg/dl Hemoglobin A1c (4.5-5.6) % Calcium 8.7 (8.5-10.1) mg/dl Magnesium 2.0 (1.8-2.4) mg/dl Total Bilirubin 1.2 H (0.2-1) mg/dl AST 31 (15-37) U/L ALT 23 (12-78) U/L Alkaline Phosphatase 100 (45-117) U/L Ammonia (11-32) umol/L Troponin I < 0.015 (0-0.045) ng/ml Total Protein 7.0 (6.4-8.2) gm/dl Albumin 2.7 L (3.4-5.0) gm/dl Globulin 4.3 H (2.5-4.0) gm/dl Albumin/Globulin Ratio 0.6 L (0.9-2) Beta-Hydroxybutyric Acd 1.14 (0.2-2.81) mg/dl TSH 15.000 H (0.300-4.500) uIu/ml Free T4 0.76 L (0.8-1.6) ng/dl Urine Color Urine Appearance (Clear) Urine pH (4.5-7.5) Ur Specific [place] (1.000-1.030) Urine Protein (Negative) Urine Glucose (UA) (Negative) Urine Ketones (Negative) Urine Blood (Negative) Urine Nitrite (Negative) Urine Bilirubin (Negative) Urine Urobilinogen (Negative) Ur Leukocyte Esterase (Negative) Nasal Screen MRSA (PCR) (Negative) Urine Opiates Screen (Neg) Ur Methadone, Qual (Neg) Urine Barbiturates (Neg) Ur Phencyclidine (PCP) (Neg) U Amphetamin/Meth Scrn (Neg) MDMA (Ecstasy) Screen (Neg) U Benzodiazepines Scrn (Neg) Ur Cocaine Metabolite (Neg) U Marijuana (THC) Screen (Neg) Hepatitis C Ab Screen Neg (Neg) 03/12/19 Range/Units 19:31 WBC 6.66 (4.8-10.8) K/uL RBC 3.91 L (4.2-5.4) M/uL Hgb 12.1 (12.0-16.0) g/dL Hct 36.0 L (37-47) % MCV 92.1 (80-100) fL MCH 30.9 (25-34) pg MCHC 33.6 (32-36) g/dL RDW Std Deviation 55.3 H (36.4-46.3) fL RDW Coeff of Mari 16.5 H (11.5-14.5) % Plt Count 139 (130-400) K/uL MPV 9.3 (7.4-10.4) fL Immature Gran % (Auto) 0.2 % Neut % (Auto) 60.3 % Lymph % (Auto) 24.8 % [place] % (Auto) 10.2 % Eos % (Auto) 3.9 % Baso % (Auto) 0.6 % Immature Gran # (Auto) 0.01 (0.00-0.02) K/uL Neut # (Auto) 4.02 (1.4-6.5) K/uL Lymph # (Auto) 1.65 (1.2-3.4) K/uL [place] # (Auto) 0.68 H (0.11-0.59) K/uL Eos # (Auto) 0.26 (0-0.5) K/uL Baso # (Auto) 0.04 (0-0.2) K/uL ABG pH (7.35-7.45) ABG pCO2 (35-46) mmHg ABG pO2 (80-95) mm/Hg ABG HCO3 (19-24) mmol/L ABG O2 Saturation (90-95) % ABG Base Excess (-9-1.8) mEq/L Kermit Test (Pos) Barometric Pressure mm/Hg Oxygen Given Sodium (136-145) mmol/L Potassium (3.5-5.1) mmol/L Chloride (98-107) mmol/L Carbon Dioxide (21-32) mmol/L Anion Gap (3-11) BUN (7-18) mg/dl Creatinine (0.6-1.2) mg/dl Est Cr Clr Drug Dosing ml/min Est GFR ( Amer) Est GFR (Non-Af Amer) BUN/Creatinine Ratio (10-20) Glucose (70-99) mg/dl POC Glucose (70-99) Estimat Average Glucose mg/dl Hemoglobin A1c (4.5-5.6) % Calcium (8.5-10.1) mg/dl Magnesium (1.8-2.4) mg/dl Total Bilirubin (0.2-1) mg/dl AST (15-37) U/L ALT (12-78) U/L Alkaline Phosphatase (45-117) U/L Ammonia (11-32) umol/L Troponin I (0-0.045) ng/ml Total Protein (6.4-8.2) gm/dl Albumin (3.4-5.0) gm/dl Globulin (2.5-4.0) gm/dl Albumin/Globulin Ratio (0.9-2) Beta-Hydroxybutyric Acd (0.2-2.81) mg/dl TSH (0.300-4.500) uIu/ml Free T4 (0.8-1.6) ng/dl Urine Color Urine Appearance (Clear) Urine pH (4.5-7.5) Ur Specific [place] (1.000-1.030) Urine Protein (Negative) Urine Glucose (UA) (Negative) Urine Ketones (Negative) Urine Blood (Negative) Urine Nitrite (Negative) Urine Bilirubin (Negative) Urine Urobilinogen (Negative) Ur Leukocyte Esterase (Negative) Nasal Screen MRSA (PCR) (Negative) Urine Opiates Screen (Neg) Ur Methadone, Qual (Neg) Urine Barbiturates (Neg) Ur Phencyclidine (PCP) (Neg) U Amphetamin/Meth Scrn (Neg) MDMA (Ecstasy) Screen (Neg) U Benzodiazepines Scrn (Neg) Ur Cocaine Metabolite (Neg) U Marijuana (THC) Screen (Neg) Hepatitis C Ab Screen (Neg) (1) AMS (altered mental status) Altered mental status type: unspecified Qualified Code(s): R41.82 - Altered mental status, unspecified
[2019-03-14] MEDS: LEVOTHYROXINE SODIUM 125 MCG TABLET PO SCH (06:06)
[2019-03-14 06:15] LABS: Hematocrit (blood only) 35.8 % (37-47); Hemoglobin 11.8 g/dL (12.0-16.0); Mean Corpuscular Hemoglobin 30.6 pg (25-34); Mean Corpuscular Volume 92.7 fL (80-100); Mean Platelet Volume 9.1 fL (7.4-10.4); Platelet Count 127 K/uL (130-400); RDW Coefficient of Variation 16.7 % (11.5-14.5); RDW Standard Deviation 56.1 fL (36.4-46.3); Red Blood Count 3.86 M/uL (4.2-5.4); White Blood Count 6.24 K/uL (4.8-10.8)
[2019-03-14 06:42] LABS: Albumin Level 2.8 gm/dl (3.4-5.0); BUN Creatinine Ratio 15.1 (10-20); Calcium 8.5 mg/dl (8.5-10.1); Creatinine Clr Calc Pharmacy 107.2 ml/min; Est GFR (African American) 88.1; Est GFR (Non-African American) 76.1; Potassium 3.5 mmol/L (3.5-5.1)
[2019-03-14 06:44] LABS: Albumin Globulin Ratio 0.7 (0.9-2); Globulin 4.1 gm/dl (2.5-4.0); Total Protein 6.9 gm/dl (6.4-8.2)
--- NOTE | 2019-03-14 07:40 | Hospitalist Progress Note ---
Date of Service March 14, 2019 Assessment & Plan (1) AMS (altered mental status): This is a 53-year-old female who presents with altered mental status. 1. Altered mental status/Hepatic Encephalopathy. There are no obvious signs of infection. She was found to have an Ammonia level of 111 GI consulted, patient was started on lactulose and rifaximin, current ammonia level 77 Patient feels better, however she says she is not herself quite yet, she cannot tell me the year or month but she answers most questions appropriately and she knows where she is 2. History of depression and bipolar - sees Psychiatry as outpatient - Currently no acute issues 3. History of diabetes mellitus type II. - Poorly controlled, hemoglobin A1c 10.5% (03/13/2019) - continue her home insulin Glargine and sliding scale. Hold Trulicity. - We will consult pharmacy for glycemic control, as she will likely need insulin adjustment before discharge 4. Hypothyroidism - Thyroid stimulating hormone is high and free T4 is borderline low. - Patient says she does take the medication every morning, at least half an hour before she takes any other medications or eats food - will likely need increase in levothyroxine 5. Obstructive sleep apnea - noncompliant with BIPAP-On BIPAP now 6. History of pulmonary embolism and deep vein thrombosis, on Xarelto. 7. History of hypertension, on diuretics. We will monitor the blood pressure. 8. History of liver cirrhosis, on Aldactone and Lasix with potassium supplement. Lactulose, Rifaximin GI consulted, recommend outpatient follow-up, when she would get EGD for varices, MELD labs and HCC screening - Hep C antibody - negative - Patient says she had a follow-up for cirrhosis before, however she denies ever having EGD 9. Morbid obesity -BMI 59 -Says she lost about 54 pounds recently, by adjusting her diet -Discussed that she would need dietitian/diabetic counseling as outpt . 10. Gastroesophageal reflux disease. Continue on Protonix and Zantac. 11. History of spinal stenosis, Physical therapy and occupational therapy 12. Bipolar disorder, Continue Cymbalta. Holding Remeron for now. 13. History of Chronic Pain currently not on pain medications. Physical therapy and occupational therapy. 14. Chronic diastolic congestive heart failure. Continue home Lasix and Aldactone. DVT prophylaxis, Xarelto. DISPOSITION: Expect discharge home and follow with family doctor. Physical therapy and occupational therapy prior to discharge. Greg (pt's flat bed operator and roommate) [phone] (will update him) Subjective No acute events overnight. Patient is sitting up in the bed, in no acute distress. Denies any fevers, chills, chest pain, shortness of breath, abdominal pain. She says that she feels much better, remembers not feeling herself, wanting to urinate on the floor. She can tell where she is, but she does not know what year it is and says that she is usually" better than this". Review of Systems Review of Systems: All systems reviewed & are unremarkable except as noted in HPI & below Constitutional: no fever, no chills and no body aches Respiratory: no cough, no chest congestion, no dyspnea and no pain on inspiration Cardiovascular: no chest pain and no palpitations Gastrointestinal: no abdominal pain, no nausea and no vomiting Physical Exam Physical Exam: Obese female sitting up in the bed, in no acute distress Constitutional: well developed, well nourished and + obese; no acute distress Eyes: PERRL, conjunctivae normal, anicteric sclerae EOM intact bilaterally ENMT: external ear and nose normal, oropharynx normal Neck: normal visual inspection Supple Respiratory: normal respiratory effort; no respiratory distress, no labored breathing and does not use accessory muscles Auscultation: + diminished lung sounds; no wheezes Cardiovascular: Rate/Rhythm: regular rate and regular rhythm Heart Sounds: no gallop and no murmur Extremities: + edema (Bilateral LE) Chest (Breasts): Chest: normal inspection of chest Gastrointestinal (Abdomen): Inspection/Auscultation: abdomen normal to inspection and normal bowel sounds; abdomen not distended Percussion/Palpa tion: abdomen soft; abdomen nontender, no guarding and abdomen not rigid Obese Musculoskeletal: Head/Neck/Chest: normocephalic, head atraumatic and neck supple Moves all 4 extremities spontaneously Skin: no rashes, warm and dry Neurologic: PERRL, EOMI, accommodation nl, no face palsy, no dysarthria moves all extremities Moves all 4 extremities spontaneously Psychiatric: Orientation: alert Affect: euthymic affect Oriented to place, but not to time, speech slow, answers most questions appropriately Genitourinary: Urinary catheter, draining dark yellow urine Lymphatic: + lymphedema (Bilateral lower extremity) Results & Data Vital Signs (Past 12 Hours) Vital Signs Temp Pulse Pulse Resp BP BP Pulse Ox 03/14/19 07:17 36.7 C 63 16 130/74 92 03/14/19 03:26 68 22 98 03/13/19 23:45 36.6 C 64 18 139/85 99 03/13/19 22:13 88 20 95 Laboratory Results 03/14/19 03/14/19 03/14/19 Range/Units 06:03 06:03 06:03 WBC 6.24 (4.8-10.8) K/uL RBC 3.86 L (4.2-5.4) M/uL Hgb 11.8 L (12.0-16.0) g/dL Hct 35.8 L (37-47) % MCV 92.7 (80-100) fL MCH 30.6 (25-34) pg MCHC 33.0 (32-36) g/dL RDW Std Deviation 56.1 H (36.4-46.3) fL RDW Coeff of Mari 16.7 H (11.5-14.5) % Plt Count 127 L (130-400) K/uL MPV 9.1 (7.4-10.4) fL PT INR ABG pH (7.35-7.45) ABG pCO2 (35-46) mmHg ABG pO2 (80-95) mm/Hg ABG HCO3 (19-24) mmol/L ABG O2 Saturation (90-95) % ABG Base Excess (-9-1.8) mEq/L Kermit Test (Pos) Barometric Pressure mm/Hg Oxygen Given Sodium 141 (136-145) mmol/L Potassium 3.5 (3.5-5.1) mmol/L Chloride 109 H (98-107) mmol/L Carbon Dioxide 27 (21-32) mmol/L Anion Gap 5.0 (3-11) BUN 13 (7-18) mg/dl Creatinine 0.86 (0.6-1.2) mg/dl Est Cr Clr Drug Dosing 107.2 ml/min Est GFR ( Amer) 88.1 Est GFR (Non-Af Amer) 76.1 BUN/Creatinine Ratio 15.1 (10-20) Glucose 91 (70-99) mg/dl POC Glucose (70-99) Calcium 8.5 (8.5-10.1) mg/dl Total Bilirubin 1.0 (0.2-1) mg/dl AST 25 (15-37) U/L ALT 22 (12-78) U/L Alkaline Phosphatase 100 (45-117) U/L Ammonia 77.0 H (11-32) umol/L Total Protein 6.9 (6.4-8.2) gm/dl Albumin 2.8 L (3.4-5.0) gm/dl Globulin 4.1 H (2.5-4.0) gm/dl Albumin/Globulin Ratio 0.7 L (0.9-2) 03/14/19 03/13/19 03/13/19 Range/Units 06:02 19:55 16:34 WBC (4.8-10.8) K/uL RBC (4.2-5.4) M/uL Hgb (12.0-16.0) g/dL Hct (37-47) % MCV (80-100) fL MCH (25-34) pg MCHC (32-36) g/dL RDW Std Deviation (36.4-46.3) fL RDW Coeff of Mari (11.5-14.5) % Plt Count (130-400) K/uL MPV (7.4-10.4) fL PT Pending INR Pending ABG pH (7.35-7.45) ABG pCO2 (35-46) mmHg ABG pO2 (80-95) mm/Hg ABG HCO3 (19-24) mmol/L ABG O2 Saturation (90-95) % ABG Base Excess (-9-1.8) mEq/L Kermit Test (Pos) Barometric Pressure mm/Hg Oxygen Given Sodium (136-145) mmol/L Potassium (3.5-5.1) mmol/L Chloride (98-107) mmol/L Carbon Dioxide (21-32) mmol/L Anion Gap (3-11) BUN (7-18) mg/dl Creatinine (0.6-1.2) mg/dl Est Cr Clr Drug Dosing ml/min Est GFR ( Amer) Est GFR (Non-Af Amer) BUN/Creatinine Ratio (10-20) Glucose (70-99) mg/dl POC Glucose 226 H 200 H (70-99) Calcium (8.5-10.1) mg/dl Total Bilirubin (0.2-1) mg/dl AST (15-37) U/L ALT (12-78) U/L Alkaline Phosphatase (45-117) U/L Ammonia (11-32) umol/L Total Protein (6.4-8.2) gm/dl Albumin (3.4-5.0) gm/dl Globulin (2.5-4.0) gm/dl Albumin/Globulin Ratio (0.9-2) 03/13/19 03/13/19 03/13/19 Range/Units 12:10 07:34 07:21 WBC (4.8-10.8) K/uL RBC (4.2-5.4) M/uL Hgb (12.0-16.0) g/dL Hct (37-47) % MCV (80-100) fL MCH (25-34) pg MCHC (32-36) g/dL RDW Std Deviation (36.4-46.3) fL RDW Coeff of Mari (11.5-14.5) % Plt Count (130-400) K/uL MPV (7.4-10.4) fL PT INR ABG pH 7.47 H (7.35-7.45) ABG pCO2 31 L (35-46) mmHg ABG pO2 69 L (80-95) mm/Hg ABG HCO3 22 (19-24) mmol/L ABG O2 Saturation 93.5 (90-95) % ABG Base Excess -1.0 (-9-1.8) mEq/L Kermit Test Pos (Pos) Barometric Pressure 726.6 mm/Hg Oxygen Given Room Air Sodium (136-145) mmol/L Potassium (3.5-5.1) mmol/L Chloride (98-107) mmol/L Carbon Dioxide (21-32) mmol/L Anion Gap (3-11) BUN (7-18) mg/dl Creatinine (0.6-1.2) mg/dl Est Cr Clr Drug Dosing ml/min Est GFR ( Amer) Est GFR (Non-Af Amer) BUN/Creatinine Ratio (10-20) Glucose (70-99) mg/dl POC Glucose 253 H 245 H (70-99) Calcium (8.5-10.1) mg/dl Total Bilirubin (0.2-1) mg/dl AST (15-37) U/L ALT (12-78) U/L Alkaline Phosphatase (45-117) U/L Ammonia (11-32) umol/L Total Protein (6.4-8.2) gm/dl Albumin (3.4-5.0) gm/dl Globulin (2.5-4.0) gm/dl Albumin/Globulin Ratio (0.9-2) 03/13/19 03/12/19 Range/Units 00:52 22:22 WBC (4.8-10.8) K/uL RBC (4.2-5.4) M/uL Hgb (12.0-16.0) g/dL Hct (37-47) % MCV (80-100) fL MCH (25-34) pg MCHC (32-36) g/dL RDW Std Deviation (36.4-46.3) fL RDW Coeff of Mari (11.5-14.5) % Plt Count (130-400) K/uL MPV (7.4-10.4) fL PT INR ABG pH (7.35-7.45) ABG pCO2 (35-46) mmHg ABG pO2 (80-95) mm/Hg ABG HCO3 (19-24) mmol/L ABG O2 Saturation (90-95) % ABG Base Excess (-9-1.8) mEq/L Kermit Test (Pos) Barometric Pressure mm/Hg Oxygen Given Sodium (136-145) mmol/L Potassium (3.5-5.1) mmol/L Chloride (98-107) mmol/L Carbon Dioxide (21-32) mmol/L Anion Gap (3-11) BUN (7-18) mg/dl Creatinine (0.6-1.2) mg/dl Est Cr Clr Drug Dosing ml/min Est GFR ( Amer) Est GFR (Non-Af Amer) BUN/Creatinine Ratio (10-20) Glucose (70-99) mg/dl POC Glucose 253 H 335 H* (70-99) Calcium (8.5-10.1) mg/dl Total Bilirubin (0.2-1) mg/dl AST (15-37) U/L ALT (12-78) U/L Alkaline Phosphatase (45-117) U/L Ammonia (11-32) umol/L Total Protein (6.4-8.2) gm/dl Albumin (3.4-5.0) gm/dl Globulin (2.5-4.0) gm/dl Albumin/Globulin Ratio (0.9-2) Medications Administered Current Inpatient Medications Acetaminophen (Tylenol) 650 mg PO Q4H PRN PRN Reason: Pain or Fever Stop: 04/11/19 23:20 Albuterol (Ventolin Hfa) 2 puffs INH Q4H PRN PRN Reason: Shortness Of Breath Stop: 04/12/19 00:10 Dicyclomine HCl (Bentyl) 10 mg PO QID PRN PRN Reason: ABD PAIN Stop: 04/11/19 23:20 Duloxetine HCl (Cymbalta) 30 mg PO DAILY [facility] Stop: 04/12/19 08:59 Last Admin: 03/13/19 08:24 Dose: 30 mg Documented by: Duloxetine HCl (Cymbalta) 60 mg PO BID PAUL Stop: 04/12/19 08:59 Last Admin: 03/13/19 20:25 Dose: 60 mg Documented by: Furosemide (Lasix) 40 mg PO SuTuThSa@0900 [facility] [place] Stop: 04/12/19 08:59 Last Admin: 03/13/19 08:27 Dose: 40 mg Documented by: Furosemide (Lasix) 60 mg PO MoWeFr@0900 [facility] [place] Stop: 04/13/19 08:59 Hydroxyzine HCl (Vistaril) 10 mg PO Q6 PRN PRN Reason: Anxiety Stop: 04/11/19 23:20 Last Admin: 03/13/19 08:26 Dose: 10 mg Documented by: Insulin Aspart (Novolog Flexpen) 0 units SC ACHS [facility] [place] Stop: 04/12/19 07:29 Last Admin: 03/13/19 20:27 Dose: 3 units Documented by: Insulin Glargine (Lantus Solostar Pen) 77 units SQ BID PAUL Stop: 04/12/19 08:59 Last Admin: 03/13/19 20:25 Dose: 77 units Documented by: Lactulose (Chronulac) 30 gm PO TID PAUL Stop: 04/12/19 08:59 Last Admin: 03/13/19 21:23 Dose: 30 gm Documented by: Levothyroxine Sodium (Synthroid) 125 mcg PO DAILYBB [facility] [place] Stop: 04/12/19 06:29 Last Admin: 03/14/19 06:06 Dose: 125 mcg Documented by: Metoclopramide HCl (Reglan) 5 mg PO AC [facility] [place] Stop: 04/12/19 07:29 Last Admin: 03/13/19 17:07 Dose: 5 mg Documented by: Miscellaneous (Order Awaiting Action) 1 ea N/A QS [facility] Stop: 04/12/19 07:59 Last Admin: 03/13/19 23:43 Dose: Not Given Documented by: Nitroglycerin (Nitrostat) 0.4 mg SL UD PRN PRN Reason: Chest Pain Stop: 04/11/19 23:20 Nystatin (Mycostatin) 1 appln EXT BID [facility] Stop: 04/12/19 08:59 Last Admin: 03/13/19 20:24 Dose: 1 appln Documented by: Ondansetron HCl (Zofran) 4 mg IV Q6H PRN PRN Reason: Nausea Stop: 04/11/19 23:20 Pantoprazole Sodium (Protonix) 40 mg PO DAILY [facility] [place] Stop: 04/12/19 08:59 Last Admin: 03/13/19 08:25 Dose: 40 mg Documented by: Polyethylene Glycol (Miralax Powder Packet) 17 gm PO DAILY PRN PRN Reason: Constipation Stop: 04/11/19 23:20 Potassium Chloride (Klor-Con M10) 10 meq PO BID17 [facility] [place] Stop: 04/12/19 08:59 Last Admin: 03/13/19 17:07 Dose: 10 meq Documented by: Prochlorperazine (Compazine) 5 mg PO TID PRN PRN Reason: Nausea Stop: 04/11/19 23:20 Ranitidine HCl (Zantac) 300 mg PO DAILY [facility] [place] Stop: 04/12/19 08:59 Last Admin: 03/13/19 08:26 Dose: 300 mg Documented by: Rifaximin (Xifaxan) 550 mg PO BID [facility] [place] Stop: 04/12/19 08:59 Last Admin: 03/13/19 20:23 Dose: 550 mg Documented by: Rivaroxaban (Xarelto) 20 mg PO DAILY [facility] [place] Stop: 04/12/19 08:59 Last Admin: 03/13/19 08:26 Dose: 20 mg Documented by: Spironolactone (Aldactone) 25 mg PO DAILY [facility] Stop: 04/12/19 08:59 Last Admin: 03/13/19 08:25 Dose: 25 mg Documented by: (1) AMS (altered mental status) Altered mental status type: unspecified Qualified Code(s): R41.82 - Altered mental status, unspecified
[2019-03-14] MEDS ORDERED: POTASSIUM CHLORIDE 20 MEQ TABCR PO STA (07:44)
[2019-03-14] MEDS: METOCLOPRAMIDE HCL 5 MG TABLET PO SCH ×3 (08:28→16:42)
[2019-03-14] MEDS: DULOXETINE HCL 30 MG CAP PO SCH (08:28)
[2019-03-14] MEDS: DULOXETINE HCL 60 MG CAP PO SCH ×2 (08:28→21:10)
[2019-03-14] MEDS: PANTOprazole 40 MG TAB PO SCH (08:28)
[2019-03-14] MEDS: POTASSIUM CHLORIDE 10 MEQ TABCR PO SCH ×2 (08:28→16:41)
[2019-03-14] MEDS: SPIRONOLACTONE 25 MG TAB PO SCH (08:29)
[2019-03-14] MEDS: RIVAROXABAN 20 MG TAB PO SCH (08:30)
[2019-03-14] MEDS: RIFAXIMIN 550 MG TABLET PO SCH ×2 (08:30→21:13)
[2019-03-14] MEDS: NYSTATIN OINT 15 GM TUBE EXT SCH ×2 (08:31→21:11)
[2019-03-14] MEDS: INSULIN ASPART 100 UNITS/ML 3 ML PEN SC SCH ×4 (08:40→21:12)
[2019-03-14] MEDS: INSULIN GLARGINE SOLOSTAR 100 UNITS/ML 3 ML PEN SQ SCH (08:40)
[2019-03-14] MEDS ORDERED: FUROSEMIDE 20 MG TAB PO SCH (09:00)
[2019-03-14] MEDS: LACTULOSE SYRUP 30 GM/45 ML UDP PO SCH ×3 (10:06→21:10)
[2019-03-14] MEDS ORDERED: PHARMACY GLYCEMIC MGMT CONSULT PRN (11:22)
[2019-03-14] MEDS: DICYCLOMINE HCL 10 MG CAP PO PRN ×2 (14:08→22:05)
[2019-03-14 14:55] LABS: INR 1.2 (0.9-1.1); Prothrombin Time 11.9 Seconds (9.0-12.0)
--- NOTE | 2019-03-14 15:41 | Pharmacy Report ---
Glycemic Control Consultation - Date of Service March 14, 2019 - Scope Scope: Glycemic Pharmacist consulted by Dr Bill on 03/14 for glycemic control and to write orders per [facility] inpatient glycemic control protocol - Objective Weight: 151 kg Accuchecks BSG (last 24hrs): 03/13/19 03/13/19 03/14/19 16:34 19:55 06:03 Glucose 91 POC Glucose 200 H 226 H 03/14/19 03/14/19 07:57 12:00 Glucose POC Glucose 95 201 H Laboratory Data (last 24hrs): 03/14/19 06:03 Potassium 3.5 Carbon Dioxide 27 Anion Gap 5.0 Creatinine 0.86 Est Cr Clr Drug Dosing 107.2 HbA1c: Hemoglobin A1c 10.5 % (4.5-5.6) H 03/13/19 04:47 - Recent Pertinent Medications Outpatient Anti-diabetic Regimen: * Trulicity, basaglar 77 units bid + SSI novolog * 10.5% on 03/13 Risk Factors for Insulin Resistance: * Diet: T2DM - Assessment & Plan Assessment & Plan: ASSESSMENT: * 53 year old admitted with mental status changes. PMHx significant for diabetes, hypothyroidism, bipolar, cirrhosis, htn * Pharmacy consulted for glycemic management - A1C elevated indicating poor glucose control outpatient * Patient started on home dose of Lantus 77 units BID - per patient discussion with diabetes education/poor eating/drinking habits outpatient noted * Feel that reduction in basal insulin necessary to prevent hypoglycemia - will reduce basal by ~20% for evenings dose * Will titrate bolus insulin with dinner - could likely tighten more tomorrow PLAN FOR INPATIENT GLYCEMIC CONTROL: * Basal insulin * Lantus 77 am - already given * start reduced Lantus 62 units BID tonight * Bolus insulin * NovoLog per scale ACHS or Q6hrs while NPO * Goal Range: Low 110 mg/dL - High 150 mg/dL * Correction Factor: 20 mg/dL/unit * Nutritional / Prandial insulin per carb ratio of 1 unit per 7 grams CHO consumed * Please note that the plan above was derived based on current level of insulin resistance and hospital stress. These recommendations are appropriate for inpat ient admission only. Plan of care upon discharge will need to be reassessed to avoid potential outpatient hypo/hyperglycemia. Thank you.
[2019-03-14] MEDS ORDERED: INSULIN GLARGINE SOLOSTAR 100 UNITS/ML 3 ML PEN SQ SCH (21:00)
[2019-03-15] MEDS: INSULIN ASPART 100 UNITS/ML 3 ML PEN SC SCH ×5 (00:42→17:30)
[2019-03-15] MEDS: LEVOTHYROXINE SODIUM 125 MCG TABLET PO SCH (06:16)
[2019-03-15 06:50] LABS: Hematocrit (blood only) 36.6 % (37-47); Hemoglobin 12.1 g/dL (12.0-16.0); Mean Corpuscular Hemoglobin 30.4 pg (25-34); Mean Corpuscular Hgb Conc 33.1 g/dL (32-36); Platelet Count 131 K/uL (130-400); RDW Coefficient of Variation 16.5 % (11.5-14.5); RDW Standard Deviation 54.8 fL (36.4-46.3); Red Blood Count 3.98 M/uL (4.2-5.4)
[2019-03-15 07:03] LABS: INR 1.2 (0.9-1.1); Prothrombin Time 11.8 Seconds (9.0-12.0)
[2019-03-15 07:07] LABS: Albumin Level 2.9 gm/dl (3.4-5.0); BUN Creatinine Ratio 13.6 (10-20); Calcium 8.5 mg/dl (8.5-10.1); Creatinine Clr Calc Pharmacy 84.5 ml/min; Est GFR (African American) 66.2; Est GFR (Non-African American) 57.1; Potassium 3.7 mmol/L (3.5-5.1)
[2019-03-15 07:11] LABS: Albumin Globulin Ratio 0.7 (0.9-2); Bilirubin,Total 1.1 mg/dl (0.2-1); Globulin 4.2 gm/dl (2.5-4.0); Total Protein 7.1 gm/dl (6.4-8.2)
--- NOTE | 2019-03-15 07:37 | Hospitalist Progress Note ---
Date of Service March 15, 2019 Assessment & Plan (1) AMS (altered mental status): This is a 53-year-old female who presents with altered mental status. 1. Altered mental status/Hepatic Encephalopathy. There are no obvious signs of infection. She was found to have an Ammonia level of 111 GI consulted, patient was started on lactulose and rifaximin, current ammonia level down to 50s Patient feels much better, says she is herself again, she is alert and oriented x3, which was not the case yesterday morning 2. History of depression and bipolar - sees Psychiatry as outpatient - Currently no acute issues 3. History of diabetes mellitus type II. - Poorly controlled, hemoglobin A1c 10.5% (03/13/2019) - continue her home insulin Glargine and sliding scale. Hold Trulicity. - consulted pharmacy for glycemic control, as well as dietitian -Recommend to decrease her insulin to 70 units twice daily instead of 77 units twice daily, also discussed in detail avoiding excessive soda drinking, excessive sugar/carbohydrates in her diet -Patient will need to follow-up with her PCP for diabetes management 4. Hypothyroidism - Thyroid stimulating hormone is high (15) and free T4 is borderline low. - Patient says she does take the medication every morning, at least half an hour before she takes any other medications or eats food - will likely need increase in levothyroxine -We will not adjust this medication at this time, however discussed in detail with her that she will need to have her labs repeated as outpatient, and that she may need levothyroxine increased 5. Obstructive sleep apnea - noncompliant with BIPAP-On BIPAP now 6. History of pulmonary embolism and deep vein thrombosis, on Xarelto. 7. History of hypertension, on diuretics. We will monitor the blood pressure. BP acceptable. 8. History of liver cirrhosis, on Aldactone and Lasix with potassium supplement. Lactulose, Rifaximin prescribed GI consulted, recommend outpatient follow-up, when she would get EGD for varices, MELD labs and HCC screening -She is scheduled to see GI, on April 02, 2019 - Hep C antibody - negative - Patient says she had a follow-up for cirrhosis before, however she denies ever having EGD. I discussed this with Greg, her desktop publishing operator, he says that they were evaluated in [place] for possible liver transplant, however she was not a candidate, I do not have records of this 9. Morbid obesity -BMI 59 -Says she lost about 54 pounds recently, by adjusting her diet -Discussed that she would need dietitian/diabetic counseling as outpt -Patient saw dietitian here in the hospital, and discussed the diabetic diet . 10. Gastroesophageal reflux disease. Continue on Protonix and Zantac. 11. History of spinal stenosis, Physical therapy and occupational therapy, Tylenol, up to 2 g a day 12. Bipolar disorder, Continue Cymbalta. Holding Remeron for now. 13. History of Chronic Pain currently not on pain medications. Patient can take Tylenol up to 2 g a day. Physical therapy. 14. Chronic diastolic congestive heart failure. Continue home Lasix and Aldactone. DVT prophylaxis, Xarelto. DISPOSITION: Expect discharge home and follow with family doctor. Greg (pt's desktop publishing operator and roommate) [phone], updated Greg yesterday evening, discussed all the clinical progress and upcoming appointments and follow-ups, also met Greg this morning in the hospital, and discussed her discharge today in detail. Subjective No acute events overnight. Patient is sitting up in the bed, in no acute distress. Denies any fevers, chills, chest pain, shortness of breath, abdominal pain. She says that she feels much better, remembers not feeling herself, wa nting to urinate on the floor prior to admission. Today she is alert and oriented x3, her desktop publishing operator Greg is at the bedside. Pt feels herself again and is asking about going home. Discussed with the patient and Greg needed follow up with PCP and GI. They wrote down upcoming appointments and will get those again in discharge paperwork. Also discussed much needed diabetes management, pt was seen by a dietitian and also pharmacist regarding her calorie (soda) consumption and insulin use. Review of Systems Review of Systems: All systems reviewed & are unremarkable except as noted in HPI & below Constitutional: no fever, no chills and no fatigue Respiratory: no cough, no dyspnea and no pain on inspiration Cardiovascular: no chest pain and no palpitations Gastrointestinal: no abdominal pain, no nausea and no vomiting Physical Exam Constitutional: well developed, well nourished and + obese; no acute distress Eyes: PERRL, conjunctivae normal, anicteric sclerae EOM intact bilaterally ENMT: external ear and nose normal, oropharynx normal Neck: normal visual inspection Respiratory: normal respiratory effort; no respiratory distress, no labored breathing and does not use accessory muscles Auscultation: + diminished lung sounds; no wheezes Cardiovascular: Rate/Rhythm: regular rate and regular rhythm Heart Sounds: no gallop and no murmur Extremities: + edema (Bilateral LE) Chest (Breasts): Chest: normal inspection of chest Gastrointestinal (Abdomen): Inspection/Auscultation: abdomen normal to inspection and normal bowel sounds; abdomen not distended Percussion/Palpation: abdomen soft; abdomen nontender, no guarding and abdomen not rigid Musculoskeletal: Head/Neck/Chest: normocephalic, head atraumatic and neck supple Skin: no rashes, warm and dry Neurologic: PERRL, EOMI, accommodation nl, no face palsy, no dysarthria moves all extremities Psychiatric: A+Ox3, euthymic affect answers all questions appropriately Lymphatic: + lymphedema (Bilateral lower extremity) Results & Data Vital Signs (Past 12 Hours) Vital Signs Temp Pulse Resp BP BP Pulse Ox 03/15/19 07:24 65 16 128/83 95 03/14/19 22:22 36.4 C L 63 18 128/84 96 Laboratory Results 03/15/19 03/15/19 03/15/19 Range/Units 06:41 06:35 06:35 WBC (4.8-10.8) K/uL RBC (4.2-5.4) M/uL Hgb (12.0-16.0) g/dL Hct (37-47) % MCV (80-100) fL MCH (25-34) pg MCHC (32-36) g/dL RDW Std Deviation (36.4-46.3) fL RDW Coeff of Mari (11.5-14.5) % Plt Count (130-400) K/uL MPV (7.4-10.4) fL PT 11.8 (9.0-12.0) Seconds INR 1.2 H (0.9-1.1) Sodium 135 L (136-145) mmol/L Potassium 3.7 (3.5-5.1) mmol/L Chloride 104 (98-107) mmol/L Carbon Dioxide 25 (21-32) mmol/L Anion Gap 7.0 (3-11) BUN 15 (7-18) mg/dl Creatinine 1.09 (0.6-1.2) mg/dl Est Cr Clr Drug Dosing 84.5 ml/min Est GFR ( Amer) 66.2 Est GFR (Non-Af Amer) 57.1 BUN/Creatinine Ratio 13.6 (10-20) Glucose 189 H (70-99) mg/dl POC Glucose (70-99) Calcium 8.5 (8.5-10.1) mg/dl Total Bilirubin 1.1 H (0.2-1) mg/dl AST 28 (15-37) U/L ALT 22 (12-78) U/L Alkaline Phosphatase 102 (45-117) U/L Ammonia 54.8 H (11-32) umol/L Total Protein 7.1 (6.4-8.2) gm/dl Albumin 2.9 L (3.4-5.0) gm/dl Globulin 4.2 H (2.5-4.0) gm/dl Albumin/Globulin Ratio 0.7 L (0.9-2) 03/15/19 03/15/19 03/15/19 Range/Units 06:35 03:36 00:03 WBC 7.00 (4.8-10.8) K/uL RBC 3.98 L (4.2-5.4) M/uL Hgb 12.1 (12.0-16.0) g/dL Hct 36.6 L (37-47) % MCV 92.0 (80-100) fL MCH 30.4 (25-34) pg MCHC 33.1 (32-36) g/dL RDW Std Deviation 54.8 H (36.4-46.3) fL RDW Coeff of Mari 16.5 H (11.5-14.5) % Plt Count 131 (130-400) K/uL MPV 9.0 (7.4-10.4) fL PT (9.0-12.0) Seconds INR (0.9-1.1) Sodium (136-145) mmol/L Potassium (3.5-5.1) mmol/L Chloride (98-107) mmol/L Carbon Dioxide (21-32) mmol/L Anion Gap (3-11) BUN (7-18) mg/dl Creatinine (0.6-1.2) mg/dl Est Cr Clr Drug Dosing ml/min Est GFR ( Amer) Est GFR (Non-Af Amer) BUN/Creatinine Ratio (10-20) Glucose (70-99) mg/dl POC Glucose 168 H 182 H (70-99) Calcium (8.5-10.1) mg/dl Total Bilirubin (0.2-1) mg/dl AST (15-37) U/L ALT (12-78) U/L Alkaline Phosphatase (45-117) U/L Ammonia (11-32) umol/L Total Protein (6.4-8.2) gm/dl Albumin (3.4-5.0) gm/dl Globulin (2.5-4.0) gm/dl Albumin/Globulin Ratio (0.9-2) 03/14/19 03/14/19 03/14/19 Range/Units 20:11 17:00 12:00 WBC (4.8-10.8) K/uL RBC (4.2-5.4) M/uL Hgb (12.0-16.0) g/dL Hct (37-47) % MCV (80-100) fL MCH (25-34) pg MCHC (32-36) g/dL RDW Std Deviation (36.4-46.3) fL RDW Coeff of Mari (11.5-14.5) % Plt Count (130-400) K/uL MPV (7.4-10.4) fL PT (9.0-12.0) Seconds INR (0.9-1.1) Sodium (136-145) mmol/L Potassium (3.5-5.1) mmol/L Chloride (98-107) mmol/L Carbon Dioxide (21-32) mmol/L Anion Gap (3-11) BUN (7-18) mg/dl Creatinine (0.6-1.2) mg/dl Est Cr Clr Drug Dosing ml/min Est GFR ( Amer) Est GFR (Non-Af Amer) BUN/Creatinine Ratio (10-20) Glucose (70-99) mg/dl POC Glucose 261 H 244 H 201 H (70-99) Calcium (8.5-10.1) mg/dl Total Bilirubin (0.2-1) mg/dl AST (15-37) U/L ALT (12-78) U/L Alkaline Phosphatase (45-117) U/L Ammonia (11-32) umol/L Total Protein (6.4-8.2) gm/dl Albumin (3.4-5.0) gm/dl Globulin (2.5-4.0) gm/dl Albumin/Globulin Ratio (0.9-2) 03/14/19 03/14/19 Range/Units 07:57 06:02 WBC (4.8-10.8) K/uL RBC (4.2-5.4) M/uL Hgb (12.0-16.0) g/dL Hct (37-47) % MCV (80-100) fL MCH (25-34) pg MCHC (32-36) g/dL RDW Std Deviation (36.4-46.3) fL RDW Coeff of Mari (11.5-14.5) % Plt Count (130-400) K/uL MPV (7.4-10.4) fL PT 11.9 (9.0-12.0) Seconds INR 1.2 H (0.9-1.1) Sodium (136-145) mmol/L Potassium (3.5-5.1) mmol/L Chloride (98-107) mmol/L Carbon Dioxide (21-32) mmol/L Anion Gap (3-11) BUN (7-18) mg/dl Creatinine (0.6-1.2) mg/dl Est Cr Clr Drug Dosing ml/min Est GFR ( Amer) Est GFR (Non-Af Amer) BUN/Creatinine Ratio (10-20) Glucose (70-99) mg/dl POC Glucose 95 (70-99) Calcium (8.5-10.1) mg/dl Total Bilirubin (0.2-1) mg/dl AST (15-37) U/L ALT (12-78) U/L Alkaline Phosphatase (45-117) U/L Ammonia (11-32) umol/L Total Protein (6.4-8.2) gm/dl Albumin (3.4-5.0) gm/dl Globulin (2.5-4.0) gm/dl Albumin/Globulin Ratio (0.9-2) Medications Administered Current Inpatient Medications Acetaminophen (Tylenol) 650 mg PO Q4H PRN PRN Reason: Pain or Fever Stop: 04/11/19 23:20 Albuterol (Ventolin Hfa) 2 puffs INH Q4H PRN PRN Reason: Shortness Of Breath Stop: 04/12/19 00:10 Dicyclomine HCl (Bentyl) 10 mg PO QID PRN PRN Reason: ABD PAIN Stop: 04/11/19 23:20 Last Admin: 03/14/19 22:05 Dose: 10 mg Documented by: Duloxetine HCl (Cymbalta) 30 mg PO DAILY [facility] Stop: 04/12/19 08:59 Last Admin: 03/14/19 08:28 Dose: 30 mg Documented by: Duloxetine HCl (Cymbalta) 60 mg PO BID [facility] Stop: 04/12/19 08:59 Last Admin: 03/14/19 21:10 Dose: 60 mg Documented by: Furosemide (Lasix) 40 mg PO SuTuThSa@0900 [facility] Stop: 04/12/19 08:59 Last Admin: 03/13/19 08:27 Dose: 40 mg Documented by: Furosemide (Lasix) 60 mg PO MoWeFr@0900 [facility] Stop: 04/13/19 08:59 Last Admin: 03/14/19 08:29 Dose: 60 mg Documented by: Hydroxyzine HCl (Vistaril) 10 mg PO Q6 PRN PRN Reason: Anxiety Stop: 04/11/19 23:20 Last Admin: 03/13/19 08:26 Dose: 10 mg Documented by: Insulin Aspart (Novolog Flexpen) 0 units SC ACHS [facility] Stop: 04/12/19 07:29 Last Admin: 03/14/19 21:12 Dose: 6 units Documented by: Insulin Glargine (Lantus Solostar Pen) 62 units SQ BID [facility] Stop: 04/13/19 20:59 Last Admin: 03/14/19 21:11 Dose: 62 units Documented by: Lactulose (Chronulac) 30 gm PO TID [facility] Stop: 04/12/19 08:59 Last Admin: 03/14/19 21:10 Dose: 30 gm Documented by: Levothyroxine Sodium (Synthroid) 125 mcg PO DAILYBB [facility] Stop: 04/12/19 06:29 Last Admin: 03/15/19 06:16 Dose: 125 mcg Documented by: Metoclopramide HCl (Reglan) 5 mg PO AC [facility] Stop: 04/12/19 07:29 Last Admin: 03/14/19 16:42 Dose: 5 mg Documented by: Miscellaneous (Order Awaiting Action) 1 ea N/A QS [facility] Stop: 04/12/19 07:59 Last Admin: 03/15/19 00:21 Dose: Not Given Documented by: Miscellaneous Information (Consult Glycemic Management Pharmacy) 1 ea N/A UD PRN PRN Reason: Consult Stop: 04/13/19 11:21 Nitroglycerin (Nitrostat) 0.4 mg SL UD PRN PRN Reason: Chest Pain Stop: 04/11/19 23:20 Nystatin (Mycostatin) 1 appln EXT BID [facility] Stop: 04/12/19 08:59 Last Admin: 03/14/19 21:11 Dose: 1 appln Documented by: Ondansetron HCl (Zofran) 4 mg IV Q6H PRN PRN Reason: Nausea Stop: 04/11/19 23:20 Pantoprazole Sodium (Protonix) 40 mg PO DAILY [facility] Stop: 04/12/19 08:59 Last Admin: 03/14/19 08:28 Dose: 40 mg Documented by: Polyethylene Glycol (Miralax Powder Packet) 17 gm PO DAILY PRN PRN Reason: Constipation Stop: 04/11/19 23:20 Potassium Chloride (Klor-Con M10) 10 meq PO BID17 [facility] Stop: 04/12/19 08:59 Last Admin: 03/14/19 16:41 Dose: 10 meq Documented by: Prochlorperazine (Compazine) 5 mg PO TID PRN PRN Reason: Nausea Stop: 04/11/19 23:20 Ranitidine HCl (Zantac) 300 mg PO DAILY [facility] Stop: 04/12/19 08:59 Last Admin: 03/14/19 08:28 Dose: 300 mg Documented by: Rifaximin (Xifaxan) 550 mg PO BID [facility] Stop: 04/12/19 08:59 Last Admin: 03/14/19 21:13 Dose: 550 mg Documented by: Rivaroxaban (Xarelto) 20 mg PO DAILY [facility] Stop: 04/12/19 08:59 Last Admin: 03/14/19 08:30 Dose: 20 mg Documented by: Spironolactone (Aldactone) 25 mg PO DAILY [facility] Stop: 04/12/19 08:59 Last Admin: 03/14/19 08:29 Dose: 25 mg Documented by: (1) AMS (altered mental status) Altered mental status type: unspecified Qualified Code(s): R41.82 - Altered mental status, unspecified
[2019-03-15] MEDS: DULOXETINE HCL 30 MG CAP PO SCH (07:47)
[2019-03-15] MEDS: FUROSEMIDE 40 MG TAB PO SCH (07:47)
[2019-03-15] MEDS: METOCLOPRAMIDE HCL 5 MG TABLET PO SCH ×3 (07:47→17:27)
[2019-03-15] MEDS: RIFAXIMIN 550 MG TABLET PO SCH (07:47)
[2019-03-15] MEDS: DULOXETINE HCL 60 MG CAP PO SCH (07:47)
[2019-03-15] MEDS: SPIRONOLACTONE 25 MG TAB PO SCH (07:47)
[2019-03-15] MEDS: RIVAROXABAN 20 MG TAB PO SCH (07:47)
[2019-03-15] MEDS: NYSTATIN OINT 15 GM TUBE EXT SCH (07:48)
[2019-03-15] MEDS: PANTOprazole 40 MG TAB PO SCH (07:48)
[2019-03-15] MEDS: POTASSIUM CHLORIDE 10 MEQ TABCR PO SCH ×2 (07:48→17:28)
[2019-03-15] MEDS: LACTULOSE SYRUP 30 GM/45 ML UDP PO SCH ×2 (07:48→13:43)
[2019-03-15] MEDS ORDERED: INSULIN GLARGINE SOLOSTAR 100 UNITS/ML 3 ML PEN SQ SCH ×2 (09:00→21:00)
[2019-03-15] MEDS ORDERED: INSULIN HUMAN REGULAR PER UNIT 7 UNITS in SYRINGE 6.93 ML IV ONE (12:00)
--- NOTE | 2019-03-15 16:12 | Pharmacy Report ---
Pharmacy Glycemic Short Note 2 - Date of Service March 15, 2019 - Glycemic Short BSG Results (Last 24 hours): 03/14/19 03/14/19 03/15/19 17:00 20:11 00:03 Glucose POC Glucose 244 H 261 H 182 H 03/15/19 03/15/19 03/15/19 03:36 06:35 07:36 Glucose 189 H POC Glucose 168 H 190 H 03/15/19 03/15/19 03/15/19 11:27 11:37 15:08 Glucose POC Glucose 322 H* 298 H 157 H OUTPATIENT ANTIDIABETIC REGIMEN: * Filijohn basaglar 77 units bid + SSI novolog * 10.5% on 03/13 Assessment & Plan: ASSESSMENT: 03/15: * Desi received 168 units of insulin yesterday with poor BSG control * 139 units of basal * 29 units of bolus * Insulin regimen is highly basal weighted. I will attempt to redistribute regimen. * Fasting BSG of 190 mg/dL is above goal and significantly higher than yesterday. Basal insulin was decreased 20% on 03/14. I will increase today. * Post prandial BSGs are all elevated, therefore I have tightened Novolog CF and CR. * Patient was administered a 7 unit IV bolus around lunch time for BSG of 322 mg/dL. Re check ordered for 2 hours after administration was 157 mg/dL. From 03/14: * 53 year old admitted with mental status changes. PMHx significant for diabetes, hypothyroidism, bipolar, cirrhosis, htn * Pharmacy consulted for glycemic management - A1C elevated indicating poor glucose control outpatient * Patient started on home dose of Lantus 77 units BID - per patient discussion with diabetes education/poor eating/drinking habits outpatient noted * Feel that reduction in basal insulin necessary to prevent hypoglycemia - will reduce basal by ~20% for evenings dose * Will titrate bolus insulin with dinner - could likely tighten more tomorrow PLAN FOR INPATIENT GLYCEMIC CONTROL: * Basal insulin - increase * Lantus 68 units this am * Lantus per scale at HS: 65 units for BSG less than 150, 70 units for BSG 150 mg/dL or greater) * Bolus insulin - increase * NovoLog per scale ACHS or Q6hrs while NPO * Goal Range: Low 110 mg/dL - High 150 mg/dL * Correction Factor: 12 mg/dL/unit * Nutritional / Prandial insulin per carb ratio of 1 unit per 4 grams CHO consumed * Please note that the plan above was derived based on current level of insulin resistance and hospital stress. These recommendations are appropriate for inpatient admission only. Plan of care upon discharge will need to be reassessed to avoid potential outpatient hypo/hyperglycemia. PLAN FOR DISCHARGE: * A1c of 10.5% on 03/13/19 * Goal A1c < 8% is reasonable * Patient was evaluated by CDE and reported consumption of soda and sugary drinks. Her discharge plan includes eliminating these from her diet. I am very hesitant to recommend increases in insulin dosing based on this. * Recommend discharge on Basaglar 70 units BID + novolog sliding scale and trulicity * Basal insulin dose slightly reduced per this is likely helping to cover some of her prandial needs and patient is willing to improve diet. * Further adjustments can be made on an outpatient basis once effect of dietary changes are seen.
--- NOTE | 2019-03-15 17:11 | Discharge Summary ---
Date of Service March 15, 2019 Admission HPI Per Admitting Provider This is a 53-year-old female with morbid obesity, sleep apnea, noncompliant with bilevel positive airway pressure, she states she has bilevel positive airway pressure at home, but does not use daily, history of diabetes, hypothyroidism, diabetic polyneuropathy, hyperlipidemia, pulmonary embolism,hx of DVT on Xarelto; hypertension, recurrent idiopathic thrombophlebitis, history of MEEK liver cirrhosis, history of gastroesophageal reflux disease with esophagitis, history of spinal stenosis, history of drug dependence, migraines, bipolar 1 disorder, history of tobacco use disorder,, history of medical marijuana use. The patient also has a history of cellulitis of the abdominal wall, cellulitis of the lower extremities, small bowel obstruction, was brought in because of some confusion at home. The patient states since last two days, she is not feeling good. She is feeling sick. She could not explain exactly what causing sickness but she seems having some urinary incontinence, recently saw family doctor on 03/06/2019. at that time she was started on baclofen for chronic back pain and Remeron for depression and also has outpatient psychiatric referral for bipolar and depression. The patient is currently resting comfortably and hemodynamically stable, able to talk, give a history, oriented to name, can tell her date of , somewhat confused about the month, but she was able to tell it is February, but not able to tell the name of the hospital. She has some mild headache. Denies any dizziness. No blurred vision. No earache. No runny nose. No sore throat. No difficulty swallowing. Appetite is okay. Denies any cough. No fever. No chills. No chest pain. No shortness of breath. No abdominal pain. No diarrhea. No constipation. No blood in the stools or black stools. No burning micturition, but she states she is somewhat incontinent of urine lately. 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 Admission Exam Per Admitting Provider GENERAL: The patient is morbidly obese, not in acute distress. VITAL SIGNS: Temperature 36.7, pulse 69, respiratory rate 16, blood pressure 123/40 and oxygen 92% on room air. HEENT: No pallor. No icterus. Pupils are equal, round and reactive to light. NECK: No neck masses. Supple. CARDIOVASCULAR: S1, S2 heard. Regular rate and rhythm. No murmur. No gallop. RESPIRATORY SYSTEM: Normal AP diameter. No accessory muscle use. No wheezing. No crackles. ABDOMEN: Soft. Bowel sounds present. Nontender. No distention. NEUROLOGIC: Cranial nerves II through XII are grossly intact. Alert and awake and oriented times to name, could tell the month with help , could not tell where she is.. Obeys simple commands. Moves extremities. Nonfocal. EXTREMITIES: Bilateral lower extremities with trace bilateral edema present. No erythema seen. Principal Diagnosis Hepatic encephalopathy, uncontrolled diabetes mellitus type 2, hypothyroidism, liver cirrhosis Discharge Exam Constitutional well developed, well nourished and + obese; no acute distress Eyes PERRL, conjunctivae normal, anicteric sclerae EOM intact bilaterally ENMT external ear and nose normal, oropharynx normal Neck normal visual inspection Respiratory normal respiratory effort; no respiratory distress, no labored breathing and does not use accessory muscles Auscultation: + diminished lung sounds; no wheezes Cardiovascular Rate/Rhythm: regular rate and regular rhythm Heart Sounds: no gallop and no murmur Extremities: + edema (Bilateral LE) Chest (Breasts) Chest: normal inspection of chest Gastrointestinal (Abdomen) Inspection/Auscultation: abdomen normal to inspection and normal bowel sounds; abdomen not distended Percussion/Palpation: abdomen soft; abdomen nontender, no guarding and abdomen not rigid Musculoskeletal Head/Neck/Chest: normocephalic, head atraumatic and neck supple Skin no rashes, warm and dry Neurologic PERRL, EOMI, accommodation nl, no face palsy, no dysarthria moves all extremities Psychiatric A+Ox3, euthymic affect Orientation: alert Affect: euthymic affect Patient answers all questions appropriately Lymphatic + lymphedema (Bilateral lower extremity) Discharge Data Allergies Allergy/AdvReac Type Severity Reaction Status Date / Time alprazolam Allergy Intermediate MAKES Verified 12/07/18 11:38 LOOPY,DO AND SAY SILLY THINGS haloperidol Allergy Intermediate nervous Verified 12/07/18 11:38 and anxious Iodinated Contrast Media Allergy Intermediate hives-PT Verified 12/07/18 11:38 DENIES SEE NOTE metformin Allergy Intermediate HANDS FEET Verified 12/07/18 11:38 FACE NUMB morphine Allergy Intermediate SWELLING Verified 12/07/18 11:38 LEGS AND FEET adhesive Allergy Mild RED RASH Verified 12/07/18 11:38 CAUSED BY PAPER TAPE vancomycin AdvReac Severe renal Verified 12/07/18 11:38 failure, required dialysis x 3 MONTHS acetaminophen AdvReac Intermediate Liver Verified 12/07/18 11:38 problems. codeine AdvReac Intermediate UPSET Verified 12/07/18 11:38 STOMACH methylparaben AdvReac Intermediate FLUID Verified 12/07/18 11:38 RETENTION oxymorphone AdvReac Intermediate FLUID Verified 12/07/18 11:38 RETENTION pregabalin AdvReac Intermediate Aphasia/Speech Verified 12/07/18 11:38 impairments gabapentin AdvReac Mild Aphasia/Speech Verified 12/07/18 11:38 impairments Sulfa (Sulfonamide AdvReac Mild GI SYMPTOMS Verified 12/07/18 11:38 Antibiotics) PAPER TAPE Allergy Severe rash Uncoded 12/07/18 11:38 Consultations 03/12/19 21:51 ED Decision to Admit Stat 03/12/19 23:21 Consult Case Management - Discharge Planning Routine 03/13/19 08:00 Consult Gastroenterology Routine Ordered Studies 03/12/19 18:59 CT head/brain wo con Stat Hospital Course (1) AMS (altered mental status): This is a 53-year-old female who presents with altered mental status. 1. Altered mental status/Hepatic Encephalopathy. There are no obvious signs of infection. She was found to have an Ammonia level of 111 GI consulted, patient was started on lactulose and rifaximin, current ammonia level down to 50s Patient feels much better, says she is herself again, she is alert and oriented x3, which was not the case yesterday morning 2. History of depression and bipolar - sees Psychiatry as outpatient - Currently no acute issues 3. History of diabetes mellitus type II. - Poorly controlled, hemoglobin A1c 10.5% (03/13/2019) - continue her home insulin Glargine and sliding scale. Hold Trulicity. - consulted pharmacy for glycemic control, as well as dietitian -Recommend to decrease her insulin to 70 units twice daily instead of 77 units twice daily, also discussed in detail avoiding excessive soda drinking, excessive sugar/carbohydrates in her diet -Patient will need to follow-up with her PCP for diabetes management 4. Hypothyroidism - Thyroid stimulating hormone is high (15) and free T4 is borderline low. - Patient says she does take the medication every morning, at least half an hour before she takes any other medications or eats food - will likely need increase in levothyroxine -We will not adjust this medication at this time, however discussed in detail with her that she will need to have her labs repeated as outpatient, and that she may need levothyroxine increased 5. Obstructive sleep apnea - noncompliant with BIPAP-On BIPAP now 6. History of pulmonary embolism and deep vein thrombosis, on Xarelto. 7. History of hypertension, on diuretics. We will monitor the blood pressure. BP acceptable. 8. History of liver cirrhosis, on Aldactone and Lasix with potassium supplement. Lactulose, Rifaximin prescribed GI consulted, recommend outpatient follow-up, when she would get EGD for varices, MELD labs and HCC screening -She is scheduled to see GI, on April 02, 2019 - Hep C antibody - negative - Patient says she had a follow-up for cirrhosis before, however she denies ever having EGD. I discussed this with Greg, her nurse substance abuse, he says that they were evaluated in [place] for possible liver transplant, however she was not a candidate, I do not have records of this 9. Morbid obesity -BMI 59 -Says she lost about 54 pounds recently, by adjusting her diet -Discussed that she would need dietitian/diabetic counseling as outpt -Patient saw dietitian here in the hospital, and discussed the diabetic diet . 10. Gastroesophageal reflux disease. Continue on Protonix and Zantac. 11. History of spinal stenosis, Physical therapy and occupational therapy, Tylenol, up to 2 g a day 12. Bipolar disorder, Continue Cymbalta. Holding Remeron for now. 13. History of Chronic Pain currently not on pain medications. Patient can take Tylenol up to 2 g a day. Physical therapy. 14. Chronic diastolic congestive heart failure. Continue home Lasix and Aldactone. DVT prophylaxis, Xarelto. DISPOSITION: Expect discharge home and follow with family doctor. Greg (pt's nurse substance abuse and roommate) [phone], updated Greg yesterday evening, discussed all the clinical progress and upcoming appointments and follow-ups, also met Greg this morning in the hospital, and discussed her discharge today in detail. Total Time Total Time Spent Total Time Spent (In Minutes): 40 Total Time Includes: Examination of the Patient, Discharge Planning, Medication Reconciliation, Communication With Other Providers and Other (Communication with nurse substance abuse) Discharge Plan Discharge Items Patient Disposition: Home - Self-Care Reason For Visit: MAs/ILLNESS Discharge Diagnosis: Hepatic encephalopathy, Uncontrolled diabetes mellitus type 2 Activity: Resume your previous activity Activity Comment: as tolerated, make sure to pace yourself and ask for help as needed Non-emergency contact: Primary Care Provider Call non-emergency contact if: you have any medication questions and your symptoms worsen Follow-up/Referrals: Dewey Mcfadden, [Primary Care Provider] - Diet: Carb Consistent or DM2 and Heart Healthy Diet Comment: Please avoid soda drinks or any excess of sugar (carbohydrates)in your diet Addtl Attending Provider Instructions: We prescribed lactulose for you, please make sure you take it so you have 3 bowel movements a day. We also started you on another new medication, Xifaxan, please take it as prescribed, twice a day. We decreased your insulin from 77 units twice a day, to 70 units twice a day. You will need to closely follow-up with your primary care provider in order to control your diabetes better. It is crucial that you avoid drinking soda beverages, or having any excessive amount of sugar/carbohydrates in your diet. You can take Tylenol for pain, up to 2000 mg (2 grams) a day. We scheduled an appointment with your primary care provider, Dr. Villagomez, for March 21, at 10:55. We also scheduled appointment with gastroenterology, for April 02, at 9:15. Please make sure to follow-up with your healthcare providers. Pending Studies at Discharge: No Stand-Alone Forms: My [facility], Smoking Cessation Medications and DC Order Prescriptions: New Xifaxan 550 mg Tablet 550 mg PO BID 30 Days Qty: 60 RF: 0 acetaminophen [Mapap (acetaminophen)] 325 mg Tablet 650 mg PO Q4H MDD 2 grams PRN (Reason: pain) 10 Days Qty: 30 RF: 0 lactulose 20 gram/30 mL Solution 30 ml PO TID PRN (Reason: hepatic encephalopathy) 30 Days Qty: 2700 RF: 0 Continued Trulicity 0.75 mg/0.5 mL pen injector 0.75 mg SUBCUT WK RF: 0 potassium chloride 10 mEq capsule, extended release 10 meq PO BID RF: 0 nystatin 100,000 unit/gram Ointment 1 applic TOPICAL BID RF: 0 ranitidine HCl 300 mg tablet 300 mg PO DAILY RF: 0 prochlorperazine maleate [Compazine] 5 mg tablet 5 mg PO TID PRN (Reason: Nausea) RF: 0 spironolactone [Aldactone] 25 mg tablet 25 mg PO DAILY RF: 0 metoclopramide HCl 5 mg Tablet 5 mg PO AC RF: 0 pantoprazole [Protonix] 40 mg tablet,delayed release (DR/EC) 40 mg PO DAILY RF: 0 ranitidine HCl [Zantac] 150 mg tablet 150 mg PO BID RF: 0 betamethasone dipropionate 0.05 % Cream 1 applic TOPICAL .BID UD PRN (Reason: FLARE UPS) RF: 0 hydroxyzine HCl 10 mg tablet 10 mg PO Q6 PRN (Reason: Anxiety) RF: 0 dicyclomine 10 mg Capsule 10 mg PO QID PRN (Reason: ABD PAIN) RF: 0 Novolog Flexpen U-100 Insulin 100 unit/mL (3 mL) insulin pen 0 unit SUBCUT TIDM RF: 0 duloxetine [Cymbalta] 30 mg capsule,delayed release(DR/EC) 30 mg PO DAILY RF: 0 duloxetine [Cymbalta] 60 mg capsule,delayed release(DR/EC) 60 mg PO BID RF: 0 Xarelto 20 mg tablet 20 mg PO DAILY RF: 0 ProAir RespiClick 90 mcg/actuation Aerosol Powdr Breath Activated 2 inh INHALATION Q4 PRN (Reason: Shortness Of Breath) RF: 0 furosemide [Lasix] 20 mg Tablet 40 mg PO SUTUTHSA RF: 0 furosemide [Lasix] 20 mg Tablet 60 mg PO MOWEFR RF: 0 levothyroxine 125 mcg Tablet 125 mcg PO DAILY RF: 0 Changed Basaglar KwikPen U-100 Insulin 100 unit/mL (3 mL) insulin pen 70 unit SUBCUT BID Qty: 0 RF: 0 Discontinued baclofen 10 mg tablet 10 mg PO BID RF: 0 mirtazapine [Remeron] 15 mg tablet 15 mg PO HS RF: 0 Discharge Orders: Discharge Order (Routine); Ordered 03/15/19 Ordered By: Obed Bill Admission Data Admit Date/Time: 03/12/19 22:34 Attending Provider: Obed Bill Admit Provider: Izaiah Gage Primary Care Provider: Dewey Mcfadden Other Providers: Izaiah Gage ; See Ramirez ; Vicky Patterson ; Kait Zavaleta ; Carlos Jones ; Jamie Guadalupe ; Eloy Cantu ; Yanna Garduno ; Casey Arcos ; Oscar Cleveland ; Janett Rizvi ; Skyla Mathew ; Rosa Rosado ; Sofia Saleh ; Hilton Morgan ; Jarod Coronado
== END 2019-03-15 18:27 | disposition home or self-care (01) | DRG 442 ==
LOC: ED 18:41 → SUATTDRO 22:34 → 1E 22:34 → 4W 03-13 06:55

== ENCOUNTER 2019-03-24 17:57 | Inpatient (IN) ==
[2019-03-24] MEDS ORDERED: NovoLIN-R INSULIN PER UNIT CHARGE IV STA ×2 (18:16→19:54)
--- NOTE | 2019-03-24 18:28 | XRay Report ---
XR chest 1V portable CLINICAL HISTORY: weakness mental status change COMPARISON STUDY: 03/12/2019 FINDINGS: Mild stable cardiac enlargement. Chronic prominence of the pulmonary vasculature. No focal infiltrate. IMPRESSION: Mild stable cardiac enlargement. Chronic fullness of the pulmonary vasculature. The above report was generated using voice recognition software. It may contain grammatical, syntax or spelling errors. Electronically signed by: Will Holder M.D. 03/24/2019 6:26 PM
[2019-03-24] MEDS ORDERED: SODIUM CHLORIDE 0.9% 500 ML IV SCH (18:30)
--- NOTE | 2019-03-24 18:45 | Emergency Department Note ---
Entered by Yolande Gordon acting as a scribe for Juan Rowe MD History of Present Illness General Chief complaint: Hyperglycemia Stated complaint: HYPERGLYCEMIA OVER 500, NECK PAIN Time Seen by Provider: 03/24/19 18:11 Source: patient History of Present Illness Onset (ago): hour(s) (today) Maximum Pain Intensity: 7 Associated symptoms: + denies other symptoms (vomiting, urinary sx) and + other (increased thirst, left arm pain, nausea (unchanged from baseline)); no chest pain The patient is a 53 year old female with a history of DM, hyperglycemia, hypothyroidism, dehydration, hypokalemia, renal insufficiency, cirrhosis, sepsis, atypical syncope, HTN, morbid obesity, who presents to the Emergency Room with complaints of hyperglycemia. The patient was seen in the ED 3 days ago. Her blood sugar at this visit was 347 and she was given IV insulin and IV fluids during this day. Today she reports that her blood sugar reached a max of 532 so she states that she gave herself extra insulin (32 units sub q, 4x today) but her levels remained high prompting her ED visit. Upon arrival her blood sugar was 446. She states that she is insure of infection and has been taking her prescribed medications regularly with no recent changes. The patient explains that she has also been experiencing chronic ongoing nausea as well as a recent cough for about 4 days. She admits that she been exposure to sickness in her apartment building. Of note, she reports that her blood pressure levels usually fluctuate. The patient also notes that she has increased thirst currently. She denies chest pain, urinary sx, and vomiting. The patient offers no additional concerns at this time. Home Medications Home Medications Medication Instructions Recorded Confirmed Type Novolog Flexpen U-100 Insulin 0 unit SUBCUT TIDM 03/12/19 03/24/19 History ProAir RespiClick 2 inh INHALATION Q4 PRN 03/12/19 03/24/19 History Trulicity 0.75 mg SUBCUT WK 03/12/19 03/24/19 History Xarelto 20 mg PO DAILY 03/12/19 03/24/19 History dicyclomine 10 mg PO QID PRN 03/12/19 03/24/19 History duloxetine [Cymbalta] 60 mg PO BID 03/12/19 03/24/19 History furosemide [Lasix] 40 mg PO SUTUTHSA 03/12/19 03/24/19 History furosemide [Lasix] 60 mg PO MOWEFR 03/12/19 03/24/19 History metoclopramide HCl 5 mg PO AC 03/12/19 03/24/19 History potassium chloride 10 meq PO BID 03/12/19 03/24/19 History prochlorperazine maleate 5 mg PO TID PRN 03/12/19 03/24/19 History [Compazine] ranitidine HCl [Zantac] 150 mg PO BID 03/12/19 03/24/19 History spironolactone [Aldactone] 25 mg PO DAILY 03/12/19 03/24/19 History Basaglar KwikPen U-100 Insulin 70 unit SUBCUT BID #0 ml 03/15/19 03/24/19 Rx lactulose 30 ml PO TID PRN 30 Days #2700 ml 03/15/19 03/24/19 Rx rifaximin [Xifaxan] 550 mg PO BID 30 Days #60 tab 03/15/19 03/24/19 Rx baclofen 10 mg PO BID 03/21/19 03/24/19 History carvedilol 12.5 mg PO BID 03/21/19 03/24/19 History levothyroxine 100 mcg PO DAILY 03/21/19 03/24/19 History nortriptyline 25 mg PO DAILY 03/21/19 03/24/19 History Allergies Allergy/AdvReac Type Severity Reaction Status Date / Time alprazolam Allergy Intermediate MAKES Verified 03/24/19 19:14 LOOPY,DO AND SAY SILLY THINGS haloperidol Allergy Intermediate nervous Verified 03/24/19 19:14 and anxious Iodinated Contrast Media Allergy Intermediate hives-PT Verified 03/24/19 19:14 DENIES SEE NOTE metformin Allergy Intermediate HANDS FEET Verified 03/24/19 19:14 FACE NUMB morphine Allergy Intermediate SWELLING Verified 03/24/19 19:14 LEGS AND FEET adhesive Allergy Mild RED RASH Verified 03/24/19 19:14 CAUSED BY PAPER TAPE vancomycin AdvReac Severe renal Verified 03/24/19 19:14 failure, required dialysis x 3 MONTHS acetaminophen AdvReac Intermediate Liver Verified 03/24/19 19:14 problems. codeine AdvReac Intermediate UPSET Verified 03/24/19 19:14 STOMACH methylparaben AdvReac Intermediate FLUID Verified 03/24/19 19:14 RETENTION oxymorphone AdvReac Intermediate FLUID Verified 03/24/19 19:14 RETENTION pregabalin AdvReac Intermediate Aphasia/Speech Verified 03/24/19 19:14 impairments gabapentin AdvReac Mild Aphasia/Speech Verified 03/24/19 19:14 impairments Sulfa (Sulfonamide AdvReac Mild GI SYMPTOMS Verified 03/24/19 19:14 Antibiotics) PAPER TAPE Allergy Severe rash Uncoded 03/24/19 19:14 Past Med/Surg History Medical History Abdominal pain (Resolved) Abdominal pain, epigastric (Inactive) Abdominal wall cellulitis (Resolved) Abdominal wall cellulitis (Acute) Acute generalized abdominal pain (Acute) Acute hyperglycemia (Inactive) Acute hypokalemia (Resolved) Anasarca Anemia (Acute) Ankle pain (Resolved) Atrial fibrillation by electrocardiogram (Acute) Atypical syncope (Resolved) Back pain (Acute) Bladder pain (Acute) Bowel obstruction (Resolved) Cauda equina compression (Acute) Cellulitis (Resolved) Cellulitis and abscess of trunk (Resolved Unknown) Chest pain, atypical (Acute) Chronic low back pain (Acute) Cirrhosis Contusion of ankle (Resolved) Contusion of periorbital region, left (Resolved) 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) Deep vein blood clot of right lower extremity (Chronic) Dehydration (Resolved) Diabetic neuropathy (Chronic 01/04/11) DM (diabetes mellitus screen) (Chronic) Drug-seeking behavior (Acute) Exacerbation of chronic back pain (Resolved) Failure of outpatient treatment (Acute) Flank pain (Acute) Fracture of fourth metatarsal bone of left foot (Resolved) Gastritis (Acute) GI bleed (Acute) Headache (Acute) Hernia (Chronic) Hyperglycemia (Resolved) Hypokalemia (Resolved) Hypothyroid (Chronic) Hypothyroidism (Acute) Hypothyroidism Hypoxia (Resolved) Incarcerated ventral hernia (Resolved) Incisional irritation (Resolved) Incisional pain (Resolved) Inguinal lymphadenopathy (Resolved 02/19/11) Kidney stone Left flank pain (Acute) Left low back pain (Acute) 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) Lumbar disc disease (Acute) Lumbar radiculopathy (Acute) Medically noncompliant (Acute) Morbid obesity (Resolved) Morbid obesity with BMI of 60.0-69.9, adult (Chronic) Noncompliance by refusing service (Acute) Obesity (Acute) Pain due to ureteral stent (Acute) Pain, dental (Resolved) Periumbilical discomfort (Acute) Pyelonephritis (Acute) Rectal bleeding Renal colic (Acute) Renal colic on right side (Resolved) Renal insufficiency (Resolved) Right sided abdominal pain (Acute) Right-sided chest wall pain (Acute) Septic shock Severe sepsis (Acute) Splenomegaly, not elsewhere classified (Chronic) Supratherapeutic INR (Acute) Syncope (Acute) UTI (urinary tract infection) (Acute) Weight gain, abnormal Surgical History Hx of ventral hernia repair Family History Other Family history non-contributory Social History Preferred Language: Ukrainian Communication Ability: Impaired 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 and A total of 10 systems reviewed and were otherwise negative Physical Exam Vital Signs Vital Signs - 24 hr 03/24/19 18:00 03/24/19 18:27 03/24/19 18:36 Temperature 36.7 C Temperature Source Oral Pulse Rate 73 71 Pulse Rate from SpO2 Sensor Pulse Rhythm Regular Pulse Strength Normal Respiratory Rate 22 20 Respiratory Effort / Characteristics Non-Labored Spontaneous Respiratory Depth Normal Respiratory Pattern Regular Blood Pressure 92/54 L Blood Pressure Mean 66 Blood Pressure Position Sitting Pulse Oximetry 96 93 Oxygen Delivery Method Room Air Room Air Sepsis Recent Fever Within 48 Hours No Sepsis Action Taken by Nursing No Action Required 03/24/19 19:00 03/24/19 19:08 03/24/19 20:00 Temperature Temperature Source Pulse Rate 65 67 67 Pulse Rate from SpO2 Sensor 67 66 Pulse Rhythm Pulse Strength Respiratory Rate 23 16 21 Respiratory Effort / Characteristics Respiratory Depth Respiratory Pattern Blood Pressure 82/54 L 130/68 Blood Pressure Mean 62 87 Blood Pressure Position Pulse Oximetry 99 97 Oxygen Delivery Method Sepsis Recent Fever Within 48 Hours Sepsis Action Taken by Nursing 03/24/19 20:01 03/24/19 21:01 Temperature Temperature Source Pulse Rate 74 63 Pulse Rate from SpO2 Sensor 74 67 Pulse Rhythm Pulse Strength Respiratory Rate 16 14 Respiratory Effort / Characteristics Respiratory Depth Respiratory Pattern Blood Pressure 105/72 Blood Pressure Mean 87 Blood Pressure Position Pulse Oximetry 98 100 Oxygen Delivery Method Sepsis Recent Fever Within 48 Hours Sepsis Action Taken by Nursing GENERAL: Patient is in no acute distress. HEENT: No acute trauma, normocephalic atraumatic, mucous membranes dry, no nasal congestion, no scleral icterus. NECK: No stridor, no adenopathy, no meningismus, trachea is midline. LUNGS: Clear to auscultation bilaterally, no wheeze, no rhonchi, breath sounds equal. HEART: Distant heart tones secondary to body size, no obvious murmur, rhythm seems regular. ABDOMEN: Soft, nontender, bowel sounds positive, no hernias, no peritonitis. EXTREMITIES: No cyanosis, moderate bilateral pedal edema, full range of motion of all the joints without pain or difficulty, no signs for acute trauma. Chronic skin changes, no erythema. NEUROLOGIC: Oriented x 3, no acute motor or sensory deficits, no focal weakness. SKIN: No rash, no jaundice, no diaphoresis. Course Course 1814: Past medical records reviewed. The patient was evaluated in room C07. A complete history and physical exam was performed. 0: The patient is requesting something for pain. I ordered her Toradol. 2003: [facility] due to her findings. 2014: I checked in with the patient. She verbally expressed understanding and agreement of the treatment plan. The patient will be evaluated for further treatment. 2040: The patient's caregiver had questions which I addressed with them. Administered Medications Discontinued Medications Sodium Chloride (Nss) 500 mls @ 999 mls/hr IV .Q31M PAUL Stop: 03/24/19 19:00 Last Infusion: 03/24/19 19:34 Dose: 0 mls/hr Documented by: [id number] Admin: 03/24/19 19:04 Dose: 999 mls/hr Documented by: [id number] Sodium Chloride (Nss 1000ml) 500 mls @ 999 mls/hr IV .Q31M ONE Stop: 03/24/19 19:47 Last Infusion: 03/24/19 21:31 Dose: 0 mls/hr Documented by: [id number] Admin: 03/24/19 19:34 Dose: 999 mls/hr Documented by: [id number] Insulin Human Regular (Novolin R U-100 Per Unit) 10 units IV NOW STA Stop: 03/24/19 18:17 Last Admin: 03/24/19 19:04 Dose: 10 units Documented by: [id number] Cosigned by: [id number] Insulin Human Regular (Novolin R U-100 Per Unit) 10 units IV NOW STA Stop: 03/24/19 19:55 Last Admin: 03/24/19 20:09 Dose: 10 units Documented by: [id number] Cosigned by: [id number] Ketorolac Tromethamine (Toradol) 15 mg IV NOW STA Stop: 03/24/19 19:17 Last Admin: 03/24/19 19:33 Dose: 15 mg Documented by: [id number] Lactulose (Chronulac) 20 gm PO NOW ONE Stop: 03/24/19 19:09 Last Admin: 03/24/19 19:33 Dose: 20 gm Documented by: [id number] Magnesium Oxide (Mag-Ox) 400 mg PO NOW STA Stop: 03/24/19 19:40 Last Admin: 03/24/19 20:09 Dose: 400 mg Documented by: [id number] Tramadol HCl (Ultram) 100 mg PO NOW STA Stop: 03/24/19 20:42 Last Admin: 03/24/19 21:03 Dose: 100 mg Documented by: [id number] Medical Decision Making Differential Diagnosis Differential diagnosis includes but is not limited to UTI, PNA, bronchitis, dehydration, electrolyte imbalance, elevated ammonia level, cardiac ischemia, hyperglycemia. Medical Records Attestation: I reviewed the patient's medical records. Home Medications Current Medication List: was personally reviewed by me Laboratory Data Attestation: I reviewed the patient's lab results. Result diagrams: 03/24/19 18:23 03/24/19 18:23 Lab Results 03/24/19 03/24/19 03/24/19 Range/Units 18:05 18:23 18:23 WBC 5.69 (4.8-10.8) K/uL RBC 3.37 L (4.2-5.4) M/uL Hgb 10.4 L (12.0-16.0) g/dL Hct 31.3 L (37-47) % MCV 92.9 (80-100) fL MCH 30.9 (25-34) pg MCHC 33.2 (32-36) g/dL RDW Std Deviation 55.1 H (36.4-46.3) fL RDW Coeff of Mari 16.4 H (11.5-14.5) % Plt Count 125 L (130-400) K/uL MPV 9.1 (7.4-10.4) fL Immature Gran % (Auto) 0.4 % Neut % (Auto) 51.7 % Lymph % (Auto) 32.9 % Ellis % (Auto) 10.7 % Eos % (Auto) 3.9 % Baso % (Auto) 0.4 % Immature Gran # (Auto) 0.02 (0.00-0.02) K/uL Neut # (Auto) 2.95 (1.4-6.5) K/uL Lymph # (Auto) 1.87 (1.2-3.4) K/uL Ellis # (Auto) 0.61 H (0.11-0.59) K/uL Eos # (Auto) 0.22 (0-0.5) K/uL Baso # (Auto) 0.02 (0-0.2) K/uL Sodium 135 L (136-145) mmol/L Potassium 4.0 (3.5-5.1) mmol/L Chloride 104 (98-107) mmol/L Carbon Dioxide 24 (21-32) mmol/L Anion Gap 7.0 (3-11) BUN 11 (7-18) mg/dl Creatinine 1.09 (0.6-1.2) mg/dl Est Cr Clr Drug Dosing 84.3 ml/min Est GFR ( Amer) 66.2 Est GFR (Non-Af Amer) 57.1 BUN/Creatinine Ratio 9.7 L (10-20) Glucose 416 H* (70-99) mg/dl POC Glucose 446 H* (70-99) Calcium 8.8 (8.5-10.1) mg/dl Magnesium 1.7 L (1.8-2.4) mg/dl Total Bilirubin 0.5 (0.2-1) mg/dl AST 21 (15-37) U/L ALT 26 (12-78) U/L Alkaline Phosphatase 118 H (45-117) U/L Ammonia (11-32) umol/L Troponin I < 0.015 (0-0.045) ng/ml Total Protein 6.4 (6.4-8.2) gm/dl Albumin 2.6 L (3.4-5.0) gm/dl Globulin 3.8 (2.5-4.0) gm/dl Albumin/Globulin Ratio 0.7 L (0.9-2) Beta-Hydroxybutyric Acd 0.96 (0.2-2.81) mg/dl Urine Color Urine Appearance (Clear) Urine pH (4.5-7.5) Ur Specific [place] (1.000-1.030) Urine Protein (Negative) Urine Glucose (UA) (Negative) Urine Ketones (Negative) Urine Blood (Negative) Urine Nitrite (Negative) Urine Bilirubin (Negative) Urine Urobilinogen (Negative) Ur Leukocyte Esterase (Negative) Urine WBC (Auto) (0-5) /hpf Urine RBC (Auto) (0-4) /hpf U Hyaline Cast (Auto) (0-5) /lpf U Epithel Cells (Auto) (0-5) /lpf Urine Bacteria (Auto) (Negative) 03/24/19 03/24/19 03/24/19 Range/Units 18:23 18:55 19:39 WBC (4.8-10.8) K/uL RBC (4.2-5.4) M/uL Hgb (12.0-16.0) g/dL Hct (37-47) % MCV (80-100) fL MCH (25-34) pg MCHC (32-36) g/dL RDW Std Deviation (36.4-46.3) fL RDW Coeff of Mari (11.5-14.5) % Plt Count (130-400) K/uL MPV (7.4-10.4) fL Immature Gran % (Auto) % Neut % (Auto) % Lymph % (Auto) % Ellis % (Auto) % Eos % (Auto) % Baso % (Auto) % Immature Gran # (Auto) (0.00-0.02) K/uL Neut # (Auto) (1.4-6.5) K/uL Lymph # (Auto) (1.2-3.4) K/uL Ellis # (Auto) (0.11-0.59) K/uL Eos # (Auto) (0-0.5) K/uL Baso # (Auto) (0-0.2) K/uL Sodium (136-145) mmol/L Potassium (3.5-5.1) mmol/L Chloride (98-107) mmol/L Carbon Dioxide (21-32) mmol/L Anion Gap (3-11) BUN (7-18) mg/dl Creatinine (0.6-1.2) mg/dl Est Cr Clr Drug Dosing ml/min Est GFR ( Amer) Est GFR (Non-Af Amer) BUN/Creatinine Ratio (10-20) Glucose (70-99) mg/dl POC Glucose 420 H* (70-99) Calcium (8.5-10.1) mg/dl Magnesium (1.8-2.4) mg/dl Total Bilirubin (0.2-1) mg/dl AST (15-37) U/L ALT (12-78) U/L Alkaline Phosphatase (45-117) U/L Ammonia 136.4 H (11-32) umol/L Troponin I (0-0.045) ng/ml Total Protein (6.4-8.2) gm/dl Albumin (3.4-5.0) gm/dl Globulin (2.5-4.0) gm/dl Albumin/Globulin Ratio (0.9-2) Beta-Hydroxybutyric Acd (0.2-2.81) mg/dl Urine Color Yellow Urine Appearance Clear (Clear) Urine pH 6.5 (4.5-7.5) Ur Specific [place] 1.032 H (1.000-1.030) Urine Protein Negative (Negative) Urine Glucose (UA) 3+ H (Negative) Urine Ketones Negative (Negative) Urine Blood 3+ H (Negative) Urine Nitrite Negative (Negative) Urine Bilirubin Negative (Negative) Urine Urobilinogen Negative (Negative) Ur Leukocyte Esterase Negative (Negative) Urine WBC (Auto) 1-5 (0-5) /hpf Urine RBC (Auto) >30 H (0-4) /hpf U Hyaline Cast (Auto) 1-5 (0-5) /lpf U Epithel Cells (Auto) 10-20 H (0-5) /lpf Urine Bacteria (Auto) Negative (Negative) 03/24/19 Range/Units 21:00 WBC (4.8-10.8) K/uL RBC (4.2-5.4) M/uL Hgb (12.0-16.0) g/dL Hct (37-47) % MCV (80-100) fL MCH (25-34) pg MCHC (32-36) g/dL RDW Std Deviation (36.4-46.3) fL RDW Coeff of Mari (11.5-14.5) % Plt Count (130-400) K/uL MPV (7.4-10.4) fL Immature Gran % (Auto) % Neut % (Auto) % Lymph % (Auto) % Ellis % (Auto) % Eos % (Auto) % Baso % (Auto) % Immature Gran # (Auto) (0.00-0.02) K/uL Neut # (Auto) (1.4-6.5) K/uL Lymph # (Auto) (1.2-3.4) K/uL Ellis # (Auto) (0.11-0.59) K/uL Eos # (Auto) (0-0.5) K/uL Baso # (Auto) (0-0.2) K/uL Sodium (136-145) mmol/L Potassium (3.5-5.1) mmol/L Chloride (98-107) mmol/L Carbon Dioxide (21-32) mmol/L Anion Gap (3-11) BUN (7-18) mg/dl Creatinine (0.6-1.2) mg/dl Est Cr Clr Drug Dosing ml/min Est GFR ( Amer) Est GFR (Non-Af Amer) BUN/Creatinine Ratio (10-20) Glucose (70-99) mg/dl POC Glucose 395 H* (70-99) Calcium (8.5-10.1) mg/dl Magnesium (1.8-2.4) mg/dl Total Bilirubin (0.2-1) mg/dl AST (15-37) U/L ALT (12-78) U/L Alkaline Phosphatase (45-117) U/L Ammonia (11-32) umol/L Troponin I (0-0.045) ng/ml Total Protein (6.4-8.2) gm/dl Albumin (3.4-5.0) gm/dl Globulin (2.5-4.0) gm/dl Albumin/Globulin Ratio (0.9-2) Beta-Hydroxybutyric Acd (0.2-2.81) mg/dl Urine Color Urine Appearance (Clear) Urine pH (4.5-7.5) Ur Specific [place] (1.000-1.030) Urine Protein (Negative) Urine Glucose (UA) (Negative) Urine Ketones (Negative) Urine Blood (Negative) Urine Nitrite (Negative) Urine Bilirubin (Negative) Urine Urobilinogen (Negative) Ur Leukocyte Esterase (Negative) Urine WBC (Auto) (0-5) /hpf Urine RBC (Auto) (0-4) /hpf U Hyaline Cast (Auto) (0-5) /lpf U Epithel Cells (Auto) (0-5) /lpf Urine Bacteria (Auto) (Negative) Imaging Data Radiologist's Impression: Radiology results as stated below per my review and the radiologist's interpretation: XR chest 1V portable CLINICAL HISTORY: weakness mental status change COMPARISON STUDY: 03/12/2019 FINDINGS: Mild stable cardiac enlargement. Chronic prominence of the pulmonary vasculature. No focal infiltrate. IMPRESSION: Mild stable cardiac enlargement. Chronic fullness of the pulmonary vasculature. The above report was generated using voice recognition software. It may contain grammatical, syntax or spelling errors. Electronically signed by: Will Holder M.D. 03/24/2019 6:26 PM ECG Data Attestation: I personally reviewed and interpreted this ECG as follows: Indication: + other (left arm pain) Rate (beats per minute): 69 Rhythm: + sinus rhythm ECG ST segments: no ST elevation ECG Findings: + Other (some artifact present laterally, QTc is 439); no PVCs Blood Pressure Blood Pressure Findings: Low blood pressure Blood Pressure Disposition: further management by hospitalist [facility] Narrative There is no leukocytosis. The patient does have a mild anemia, this is about a point below baseline for her. Platelet count mildly low but this is baseline. No renal failure. Sugar is quite high in the 400s. Magnesium somewhat low at 1.7. Ammonia level was quite high at 136. No worrisome liver enzyme elevation. Urinalysis showed some hematuria, no signs of infection. Chest film showed some pulmonary congestion secondary to her body size. No pneumonia. The patient received IV saline, 2/500 cc saline boluses were given. She was given oral magnesium, she was given oral lactulose. She received IV Toradol for pain. She received IV insulin 10 units, a second 10 units of IV insulin was administered. The patient presents hypotensive. She is hyperglycemic. She has a high ammonia level. Despite treatment here, her blood pressure remains low, her sugar remains high. I think a hospital stay is warranted. The cause for this entire presentation is not completely clear. I spoke to the patient, I talked to case management. The on-call hospitalist was consulted. Impression & Plan Hypotension, Acute hyperglycemia, Acute dehydration, Hyperammonemia, Hypomagnesemia Discharge Plan Visit Data Chief Complaint: Hyperglycemia Stated Complaint: HYPERGLYCEMIA OVER 500, NECK PAIN ED Provider: Juan Rowe Discharge Problem: Hypotension, Acute hyperglycemia, Acute dehydration, Hyperammonemia, Hypomagnesemia Patient Disposition: Being Evaluated by Hospitalist Forms Stand Alone Forms: [facility] Prescriptions Prescriptions: No Action Trulicity 0.75 mg/0.5 mL pen injector 0.75 mg SUBCUT WK RF: 0 potassium chloride 10 mEq capsule, extended release 10 meq PO BID RF: 0 prochlorperazine maleate [Compazine] 5 mg tablet 5 mg PO TID PRN (Reason: Nausea) RF: 0 spironolactone [Aldactone] 25 mg tablet 25 mg PO DAILY RF: 0 metoclopramide HCl 5 mg Tablet 5 mg PO AC RF: 0 ranitidine HCl [Zantac] 150 mg tablet 150 mg PO BID RF: 0 dicyclomine 10 mg Capsule 10 mg PO QID PRN (Reason: ABD PAIN) RF: 0 Novolog Flexpen U-100 Insulin 100 unit/mL (3 mL) insulin pen 0 unit SUBCUT TIDM RF: 0 duloxetine [Cymbalta] 60 mg capsule,delayed release(DR/EC) 60 mg PO BID RF: 0 Xarelto 20 mg tablet 20 mg PO DAILY RF: 0 ProAir RespiClick 90 mcg/actuation Aerosol Powdr Breath Activated 2 inh INHALATION Q4 PRN (Reason: Shortness Of Breath) RF: 0 furosemide [Lasix] 20 mg Tablet 40 mg PO SUTUTHSA RF: 0 furosemide [Lasix] 20 mg Tablet 60 mg PO MOWEFR RF: 0 Xifaxan 550 mg Tablet 550 mg PO BID 30 Days Qty: 60 RF: 0 lactulose 20 gram/30 mL Solution 30 ml PO TID PRN (Reason: hepatic encephalopathy) 30 Days Qty: 2700 RF: 0 Basaglar KwikPen U-100 Insulin 100 unit/mL (3 mL) insulin pen 70 unit SUBCUT BID Qty: 0 RF: 0 carvedilol 12.5 mg Tablet 12.5 mg PO BID RF: 0 nortriptyline 25 mg Capsule 25 mg PO DAILY RF: 0 levothyroxine 100 mcg tablet 100 mcg PO DAILY RF: 0 baclofen 10 mg Tablet 10 mg PO BID RF: 0 Referrals Referrals: Dewey Mcfadden DO [Primary Care Provider] - Discharge Problem: Hypotension Qualifiers: Hypotension type: unspecified hypotension type Qualified Code(s): I95.9 - Hypotension, unspecified The scribe's documentation has been prepared under my direction and personally reviewed by me in its entirety. I confirm that the note above accurately reflects all work, treatment, procedures, and medical decision making performed by me.
[2019-03-24 18:46] LABS: Basophils # (auto) 0.02 K/uL (0-0.2); Basophils % (auto) 0.4 %; Eosinophils # (auto) 0.22 K/uL (0-0.5); Eosinophils % (auto) 3.9 %; Hematocrit (blood only) 31.3 % (37-47); Hemoglobin 10.4 g/dL (12.0-16.0); Immature Granulocytes # (auto) 0.02 K/uL (0.00-0.02); Immature Granulocytes % (auto) 0.4 %; Lymphocytes # (auto) 1.87 K/uL (1.2-3.4); Lymphocytes % (auto) 32.9 %; Mean Corpuscular Hemoglobin 30.9 pg (25-34); Mean Corpuscular Hgb Conc 33.2 g/dL (32-36); Mean Corpuscular Volume 92.9 fL (80-100); Mean Platelet Volume 9.1 fL (7.4-10.4); Monocytes # (auto) 0.61 K/uL (0.11-0.59); Monocytes % (auto) 10.7 %; Neutrophils # (auto) 2.95 K/uL (1.4-6.5); Neutrophils % (auto) 51.7 %; Platelet Count 125 K/uL (130-400); RDW Coefficient of Variation 16.4 % (11.5-14.5); RDW Standard Deviation 55.1 fL (36.4-46.3); Red Blood Count 3.37 M/uL (4.2-5.4); White Blood Count 5.69 K/uL (4.8-10.8)
[2019-03-24 19:07] LABS: Appearance Urine Clear (Clear); Bacteria Urine Automated Negative (Negative); Bilirubin Urine Negative (Negative); Blood Urine 3+ (Negative); Color Urine Yellow; Glucose Urine UA 3+ (Negative); Ketones Urine Negative (Negative); Leukocyte Esterase Urine Negative (Negative); Nitrite Urine Negative (Negative); Protein Urine Negative (Negative); RBC Urine Automated >30 /hpf (0-4); Specific Gravity Urine 1.032 (1.000-1.030); Urobilinogen Urine Negative (Negative); pH Urine 6.5 (4.5-7.5)
[2019-03-24] MEDS ORDERED: LACTULOSE SYRUP 20 GM/30 ML UDC PO ONE (19:08)
[2019-03-24] MEDS ORDERED: KETOROLAC TROMETHAMINE 15 MG/ML VIAL IV STA (19:16)
[2019-03-24] MEDS ORDERED: SODIUM CHLORIDE 0.9% 1000ML 500 ML IV ONE (19:17)
[2019-03-24 19:23] LABS: Alanine Aminotransferase 26 U/L (12-78); Albumin Globulin Ratio 0.7 (0.9-2); Albumin Level 2.6 gm/dl (3.4-5.0); Alkaline Phosphatase 118 U/L (45-117); Aspartate Aminotransferase 21 U/L (15-37); BUN Creatinine Ratio 9.7 (10-20); Bilirubin,Total 0.5 mg/dl (0.2-1); Blood Urea Nitrogen 11 mg/dl (7-18); Calcium 8.8 mg/dl (8.5-10.1); Carbon Dioxide 24 mmol/L (21-32); Chloride 104 mmol/L (98-107); Creatinine Clr Calc Pharmacy 84.3 ml/min; Est GFR (African American) 66.2; Est GFR (Non-African American) 57.1; Globulin 3.8 gm/dl (2.5-4.0); Glucose 416 mg/dl (70-99); Magnesium 1.7 mg/dl (1.8-2.4); Sodium 135 mmol/L (136-145); Total Protein 6.4 gm/dl (6.4-8.2); Troponin I < 0.015 ng/ml (0-0.045)
[2019-03-24 19:35] LABS: Beta-Hydroxybutyrate 0.96 mg/dl (0.2-2.81)
[2019-03-24] MEDS ORDERED: MAGNESIUM OXIDE 400 MG TAB PO STA (19:39)
[2019-03-24] MEDS ORDERED: TRAMADOL HCL 50 MG TABLET PO STA (20:41)
[2019-03-24] MEDS ORDERED: DICYCLOMINE HCL 10 MG CAP PO PRN (22:38)
[2019-03-24] MEDS ORDERED: ACETAMINOPHEN 325 MG TAB PO PRN (22:38)
[2019-03-24] MEDS ORDERED: SODIUM CHLORIDE 0.9% 1000ML 1,000 ML IV SCH (22:38)
[2019-03-24] MEDS ORDERED: ONDANSETRON INJ 2 MG/ML 2 ML VIAL IV PRN (22:38)
[2019-03-24] MEDS ORDERED: NITROGLYCERIN SL 0.4 MG/TAB TAB SL PRN (22:38)
[2019-03-24] MEDS ORDERED: PROCHLORPERAZINE MALEATE 5 MG TAB PO PRN (22:38)
[2019-03-24] MEDS ORDERED: INSULIN GLARGINE SOLOSTAR 100 UNITS/ML 3 ML PEN SQ SCH (22:38)
[2019-03-24] MEDS ORDERED: KETOROLAC TROMETHAMINE 15 MG/ML VIAL IV ONE (22:38)
[2019-03-24] MEDS ORDERED: cefTRIAXone SODIUM 1,000 MG in DEXTROSE 5% 50 ML IV SCH (22:38)
[2019-03-24] MEDS ORDERED: ALBUTEROL HFA 8 GM INHALER INH PRN (22:55)
[2019-03-24] MEDS ORDERED: PHARMACY GLYCEMIC MGMT CONSULT PRN (22:58)
[2019-03-24] MEDS ORDERED: GLUCOSE 10 TABS/TUBE PO PRN (23:00)
[2019-03-24] MEDS ORDERED: CARBOHYDRATES FOR HYPOGLYCEMIA PO PRN (23:00)
[2019-03-24] MEDS ORDERED: GLUCAGON FOR INJ 1 MG VIAL SQ PRN (23:00)
[2019-03-24] MEDS ORDERED: DEXTROSE 50% 50 ML SYRINGE IV PRN (23:00)
[2019-03-24] MEDS ORDERED: GLUCOSE 40% GEL 15 GM TUBE PO PRN (23:00)
[2019-03-24] MEDS ORDERED: INSULIN REGULAR 250 UNITS in SODIUM CHLORIDE 0.9% 247.5 ML IV SCH (23:15)
[2019-03-24] MEDS ORDERED: HYDROmorphone INJ 0.5 MG/0.5 ML SYR IV STA (23:33)
[2019-03-24] MEDS: LACTULOSE SYRUP 30 GM/45 ML UDP PO SCH (23:54)
[2019-03-24] MEDS: RIFAXIMIN 550 MG TABLET PO SCH (23:55)
[2019-03-24] MEDS: DOXYCYCLINE HYCLATE 100 MG CAP PO SCH (23:56)
[2019-03-25] MEDS: INSULIN ASPART 100 UNITS/ML 3 ML PEN SC SCH ×6 (00:05→20:17)
[2019-03-25] MEDS: cefTRIAXone SODIUM 2,000 MG in DEXTROSE 5% 50 ML IV SCH (00:08)
--- NOTE | 2019-03-25 00:31 | History and Physical Report ---
DATE OF ADMISSION: 03/24/2019 CHIEF COMPLAINT: Hyperglycemia. HISTORY OF PRESENT ILLNESS: This is a 53-year-old female with past medical history significant for morbid obesity, sleep apnea, noncompliant with BiPAP. She says since she had a surgery for sleep apnea, she is not requiring it. She has a history of diabetes, hypothyroidism, diabetic polyneuropathy, hyperlipidemia, history of pulmonary embolism, history of DVT on Xarelto, hypertension, recurrent idiopathetic thrombophlebitis, history of MEEK liver cirrhosis, history of GERD with esophagitis, history of spinal stenosis, history of drug dependence in the past, history of migraines, bipolar 1 disorder, history of tobacco abuse disorder, history of medical marijuana use in the past. The patient has history of cellulitis of the right lower extremity and also abdominal wall cellulitis, history of small-bowel obstruction. The patient lives at home. She has caregiver, Mr. Garza, who helps her. The patient's sugars were almost 300every day since about a week but today it was running high in the 500-600 range. That is the reason she came here. She was here recently, got admitted on 03/13/2019 for hepatic encephalopathy and she was discharged on lactulose and Xifaxan, but she says her insurance not covering the Xifaxan, but she says she is taking lactulose regularly and she is having 3 bowel movements every day and she says her mental status is much clearer now, but today when she came to the ER, her sugars were 515, her ammonia level was 130. 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 She did not take the lactulose l today because she thought her sugars are running high because of the lactulose. Hemodynamics are okay. She says she sleeps okay. Ambulates with help of walker and support with her caregiver.Appetite is okay. Has some mild headache, mild dizziness when she walks and some mild blurred visions. Has earache in her left ear that is chronic for couple of months. Denies any fever, chills. Has cough for 1 or 2 months now with greenish phlegm. Denies any chest pain. Denies any shortness of breath. Being nauseous but no vomiting, mild abdominal discomfort from her hernia. No blood in stools or black stools. No burning micturition, no hematuria. No rash. Has some edema in the legs. Currently resting comfortably and hemodynamically stable. Complains of neck pain radiating to left arm. ALLERGIES: ALPRAZOLAM, HALOPERIDOL, IV DYE, METFORMIN, MORPHINE, ADHESIVES, VANCOMYCIN, TYLENOL, CODEINE, METHYLPARABEN, OXYMORPHONE, PREGABALIN, GABAPENTIN, SULFA ANTIBIOTICS, PAPER TAPE. PAST MEDICAL HISTORY: As mentioned above. PAST SURGICAL HISTORY: Right knee arthroplasty, colonoscopy with biopsy, EGDs implant mesh with abdominal hernia repair, appendectomy, cholecystectomy, sinus surgery, total abdominal hysterectomy with removal of tubes. MEDICATIONS: Currently, the patient is on baclofen 10 mg p.o. b.i.d., Basaglar insulin 70 units subcutaneous b.i.d., Coreg 12.5 mg p.o. b.i.d., dicyclomine 10 mg p.o. q.i.d. p.r.n., Cymbalta 60 mg b.i.d., Lasix 40 mg on Sundays, Tuesdays, and Saturdays, Lasix 60 mg Tuesday, Tuesday and Tuesday, lactulose 30 mg p.o. t.i.d. p.r.n., levothyroxine 100 mcg p.o. daily, Reglan 5 mg p.o. a.c., nortriptyline 25 mg p.o. daily, Novolin sliding scale, potassium chloride 10 mEq p.o. b.i.d., ProAir 2 inhalations q. 4 hours p.r.n., Compazine 5 mg p.o. t.i.d. p.r.n., Zantac 150 mg p.o. b.i.d., Xifaxan 550 mg p.o. b.i.d., spironolactone 25 mg p.o. daily, Trulicity 0.75 mg subcutaneous weekly, Xarelto 20 mg p.o. daily. FAMILY HISTORY: Significant for: Father had liver cancer. Brother had liver cirrhosis and alcoholism. Mother had heart disorder and lung disorder. Brother from renal failure and cirrhosis. SOCIAL HISTORY: Currently living with a caregiver. Smokes quarter pack a day for 34 years, but no alcohol, no drug use. REVIEW OF SYMPTOMS: As per HPI. Rest of review of systems is negative. PHYSICAL EXAMINATION: GENERAL: The patient is morbidly obese, not in acute distress. VITAL SIGNS: Temperature 36.7, pulse 63, blood pressure 105/72, respiratory rate 14, oxygen 100% on room air. HEENT: No pallor, no icterus. Pupils equal, round, reactive to light. NECK: No JVD, no neck masses, no carotid bruits. CARDIOVASCULAR: S1, S2 heard, regular rate and rhythm, no murmur, no gallop. RESPIRATORY SYSTEM: Normal AP diameter. No accessory muscle use. No wheezing, no crackles. ABDOMEN: Soft, bowel sounds present. Mild abdominal discomfort. No guarding. No rigidity. CENTRAL NERVOUS SYSTEM: Cranial nerves II-XII grossly nonfocal. Alert and oriented x2. Obeys simple commands. Moves extremities. EXTREMITIES: Mild lower extremity edema present, no erythema seen. LABORATORIES DATA: WBC 5.6, hemoglobin 13.4, hematocrit 31.3, platelets 125. Sodium 135, potassium 4, chloride 104, bicarbonate 24, BUN 11, creatinine 1.09, serum glucose 416, calcium 8.8, magnesium 1.7, total bilirubin 0.5, AST 21, ALT 26, alkaline phosphatase 118. Ammonia 136. Troponin I less than 0.015. Urinalysis, +3 glucose and +3 blood. Chest x-ray, mild stable cardiac enlargement and chronic fullness of the pulmonary vasculature. EKG: Sinus rhythm with first-degree AV block at a rate of 69, no acute ST changes seen. ASSESSMENT AND PLAN: This 53-year-old female presents with hyperglycemia and also found to have elevated ammonia level. 1. Hyperglycemia, poorly controlled diabetes. Recently, her HbA1c level was 10.5 on 03/13/2019. Received IV insulin 10 units x2 in the Er. We will continue with Basaglar insulin 70 units b.i.d. which was reduced last admission. The patient has insulin sliding scale. Follow the blood sugar closely and consult glycemic pharmacy for adjustment of insulin regimen. If it is not getting under control, we will start on IV insulin drip. 2. Elevated ammonia levels. Last admission presented with hepatic encephalopathy but currently mental status is stable, but ammonia levels are high at 136. The patient says she is compliant with the lactulose. She is getting 3 bowel movements a day, except she did not take it today because she was worried that it is causing her sugars go high. We will give a dose of lactulose in the ER and we will continue with T.i.d. dose.Her insurance is not covering Xifaxan, which we will give while she is in the hospital. Follow ammonia levels in the a.m. and consult GI for further recommendation for adjustment of medications. 3. Nonalcoholic steatohepatitis, cirrhosis. Holding diuretics because of the elevated ammonia levels and also blood pressure was low when she came in. Gentle fluids. We will monitor for any volume overload. 4. History of hypertension. When she came in, she was hypotensive and sugars were running high, so we will give Coreg with holding parameters. Diuretics were held. We will monitor the blood pressure. 5. History of deep venous thrombosis and pulmonary embolism. Continue Xarelto. 6. Hypothyroidism. Continue Synthroid. Follow PCP with repeat thyroid profile. 7. History of obstructive sleep apnea, noncompliant with BiPAP. She is not using BiPAP at home. We will hold the BiPAP for now and do nocturnal pulse ox study in the hospital if she requests oxygen on discharge. 8. Morbid obesity, needs counseling. 9. Gastroesophageal reflux disease. Continue Protonix and Zantac. 10.External otitis media. Iv abx. 11. Cough with sputum. Empirically starting on iv Rocephin and Doxycycline 12. Neck pain radiating to left arm. Intial troponin negative. Will follow serial CE. Pain control.. can get cervical spine x ray. 13. Bipolar disorder. Continue Cymbalta. 14. Chronic diastolic heart failure, holding the diuretics. Monitor for any volume overload. 15. Deep venous thrombosis prophylaxis, on Xarelto. DISPOSITION: Admit to med/surg tele. Level 1 full code. PT, OT prior to discharge. Social Service to help with discharge plan. CYNTHIA
[2019-03-25] MEDS ORDERED: SODIUM CHLORIDE 0.9% 500 ML IV SCH (04:15)
[2019-03-25 05:59] LABS: Basophils # (auto) 0.03 K/uL (0-0.2); Basophils % (auto) 0.5 %; Eosinophils # (auto) 0.24 K/uL (0-0.5); Eosinophils % (auto) 4.3 %; Hematocrit (blood only) 30.9 % (37-47); Immature Granulocytes # (auto) 0.02 K/uL (0.00-0.02); Immature Granulocytes % (auto) 0.4 %; Lymphocytes # (auto) 2.29 K/uL (1.2-3.4); Lymphocytes % (auto) 41.4 %; Mean Corpuscular Hemoglobin 30.6 pg (25-34); Mean Corpuscular Hgb Conc 32.4 g/dL (32-36); Mean Corpuscular Volume 94.5 fL (80-100); Mean Platelet Volume 8.9 fL (7.4-10.4); Monocytes # (auto) 0.61 K/uL (0.11-0.59); Neutrophils # (auto) 2.34 K/uL (1.4-6.5); Neutrophils % (auto) 42.4 %; Platelet Count 116 K/uL (130-400); RDW Coefficient of Variation 16.5 % (11.5-14.5); Red Blood Count 3.27 M/uL (4.2-5.4); White Blood Count 5.53 K/uL (4.8-10.8)
[2019-03-25] MEDS: LEVOTHYROXINE SODIUM 100 MCG TABLET PO SCH (06:13)
[2019-03-25] MEDS: HYDROmorphone INJ 0.5 MG/0.5 ML SYR IV PRN ×4 (06:16→22:29)
[2019-03-25 06:37] LABS: Blood Urea Nitrogen 11 mg/dl (7-18); Calcium 8.6 mg/dl (8.5-10.1); Carbon Dioxide 28 mmol/L (21-32); Chloride 108 mmol/L (98-107); Creatinine Clr Calc Pharmacy 104.5 ml/min; Est GFR (African American) 85.7; Glucose 113 mg/dl (70-99); Magnesium 1.9 mg/dl (1.8-2.4); Potassium 3.7 mmol/L (3.5-5.1); Sodium 139 mmol/L (136-145)
[2019-03-25 06:42] LABS: Troponin I < 0.015 ng/ml (0-0.045)
[2019-03-25] MEDS ORDERED: INSULIN ASPART 100 UNITS/ML 3 ML PEN SC SCH ×2 (07:30)
[2019-03-25] MEDS: BACLOFEN 10 MG TAB PO SCH ×2 (08:42→20:13)
[2019-03-25] MEDS: DULOXETINE HCL 60 MG CAP PO SCH ×2 (08:43→20:13)
[2019-03-25] MEDS: carvediloL 12.5 MG TAB PO SCH ×2 (08:43→20:01)
[2019-03-25] MEDS: METOCLOPRAMIDE HCL 5 MG TABLET PO SCH ×3 (08:44→17:33)
[2019-03-25] MEDS: POTASSIUM CHLORIDE 10 MEQ TABCR PO SCH ×2 (08:44→20:13)
[2019-03-25] MEDS: NORTRIPTYLINE HCL 25 MG CAP PO SCH (08:44)
[2019-03-25] MEDS: LACTULOSE SYRUP 30 GM/45 ML UDP PO SCH ×3 (08:45→20:10)
[2019-03-25] MEDS: DOXYCYCLINE HYCLATE 100 MG CAP PO SCH ×2 (08:45→20:14)
[2019-03-25] MEDS: RIFAXIMIN 550 MG TABLET PO SCH ×2 (08:45→20:13)
[2019-03-25] MEDS: RIVAROXABAN 20 MG TAB PO SCH (08:45)
--- NOTE | 2019-03-25 11:18 | Hospitalist Progress Note ---
Date of Service March 25, 2019 Assessment & Plan (1) Acute hyperglycemia: Has diabetes and on insulin Noted to have blood sugar of more than 5 home without significant symptoms Did have some nonspecific chest pain and pain in the left arm Pharmacy has been consulted Blood sugar is running around 110s this morning (2) Hyperammonemia: Has history of Meek cirrhosis Has been taking lactulose as an outpatient Denies to have any significant change in mental status Ammonia level is high at 136 Mentally clear at this morning and ammonia level has improved to 90 GI has been consulted for management of MEEK cirrhosis (3) Hypothyroidism: Continue supplement (4) Morbid obesity with BMI of 60.0-69.9, adult: Advised to reduce weight (5) RIMA (obstructive sleep apnea): History of RIMA and has had surgery for that Does not use any CPAP and a BiPAP at home She will have a nocturnal pulse oximetry while in the hospital (6) Acute bronchiolitis: Noted to have cough with the sputum on admission Has been put on intravenous ceftriaxone and oral doxycycline Possible otitis externa Continue current antibiotic History of DVT and pulmonary embolism Has been on Xarelto and will continue CODE STATUS Full Subjective 03/25 The patient was seen and examined in medical telemetry unit She is a 53-year-old female morbidly obese with history of sleep apnea and noncompliant with BiPAP and/or CPAP and also history of diabetes, hypothyroidism, hyperlipidemia, DVT and pulmonary embolism on Xarelto has been noted to have very high blood sugar at home. She complained to him some weakness but denies any other significant symptoms She has noted to have borderline high ammonia secondary to her MEEK cirrhosis She has been feeling a lot better since admission Review of Systems Review of Systems: All systems reviewed and are unremarkable except as noted below Physical Exam Physical Exam: Morbidly obese lying in bed comfortably Constitutional: well developed, well nourished and + morbidly obese; no acute distress and not ill appearing Eyes: PERRL, conjunctivae normal, anicteric sclerae ENMT: external ear and nose normal, oropharynx normal Neck: trachea midline, no thyromegaly Respiratory: normal respiratory effort; no respiratory distress Cardiovascular: Rate/Rhythm: regular rate and regular rhythm Heart Sounds: no murmur Gastrointestinal (Abdomen): Inspection/Auscultation: + abdomen distended Percussion/Palpation: abdomen soft; abdomen nontender Musculoskeletal: No acute arthritis in any joints Neurologic: Alert, awake and oriented x3 Results & Data Vital Signs (Past 12 Hours) Vital Signs Temp Pulse Pulse Resp BP Pulse Ox 03/25/19 08:00 60 03/25/19 07:00 36.7 C 57 L 18 115/75 93 03/25/19 06:12 117/83 03/25/19 04:59 94/57 L 03/25/19 04:05 92/63 L 03/25/19 04:03 36.5 C 60 16 81/42 L 92 03/25/19 01:33 60 Laboratory Results Short CBC 03/24/19 03/25/19 Range/Units 18:23 05:46 WBC 5.69 5.53 (4.8-10.8) K/uL Hgb 10.4 L 10.0 L (12.0-16.0) g/dL Hct 31.3 L 30.9 L (37-47) % Plt Count 125 L 116 L (130-400) K/uL BMP 03/24/19 03/25/19 18:23 05:46 Sodium 135 L 139 Potassium 4.0 3.7 Chloride 104 108 H Carbon Dioxide 24 28 BUN 11 11 Creatinine 1.09 0.88 Glucose 416 H* 113 H Calcium 8.8 8.6 Cardiac Enzymes 03/24/19 03/24/19 03/25/19 Range/Units 18:23 23:34 05:46 Troponin I < 0.015 < 0.015 < 0.015 (0-0.045) ng/ml Liver Function 03/24/19 Range/Units 18:23 Total Bilirubin 0.5 (0.2-1) mg/dl AST 21 (15-37) U/L ALT 26 (12-78) U/L Alkaline Phosphatase 118 H (45-117) U/L Albumin 2.6 L (3.4-5.0) gm/dl Urine 03/24/19 Range/Units 18:55 Urine Color Yellow Urine Appearance Clear (Clear) Urine pH 6.5 (4.5-7.5) Ur Specific [place] 1.032 H (1.000-1.030) Urine Protein Negative (Negative) Urine Glucose (UA) 3+ H (Negative)
--- NOTE | 2019-03-25 12:29 | Gastrointestinal Consultation ---
Date of Consultation March 25, 2019 Assessment & Plan (1) Liver cirrhosis secondary to MEEK: well compensated, no evidence of encephalopathy, GI bleeding, ascites at this time. Recs: continue lactulose and xifaxan, titrate to 2-3 soft BMs daily check daily MELD labs will need EGD as an outpt to screen for varices recommend 10% weight loss via diet and exercise for her MEEK cirrhosis as well. Thank you for allowing me to participate in the care of this patient. History of Present Illness Attending Physician: Chu Gomes MD 53 yo female with MEEK cirrhosis here with elevated ammonia. GI consulted for management of cirrhosis. Currently she feels well, A and O x 3 without any asterixis. She notes she does not feel confused like when she presented here a few weeks ago. No hematemesis, hematochezia. No fluid buildup in her abdomen is noted. She is tolerating her diet but notes bloating. Previous CT A/P in october 2018 without any evidence of ascites. Labs show mild anemia, hgb 10, imaging as above, no recent EGD nor colonoscopy. Allergies Allergy/AdvReac Type Severity Reaction Status Date / Time alprazolam Allergy Intermediate MAKES Verified 03/24/19 19:14 LOOPY,DO AND SAY SILLY THINGS haloperidol Allergy Intermediate nervous Verified 03/24/19 19:14 and anxious Iodinated Contrast Media Allergy Intermediate hives-PT Verified 03/24/19 19:14 DENIES SEE NOTE metformin Allergy Intermediate HANDS FEET Verified 03/24/19 19:14 FACE NUMB morphine Allergy Intermediate SWELLING Verified 03/24/19 19:14 LEGS AND FEET adhesive Allergy Mild RED RASH Verified 03/24/19 19:14 CAUSED BY PAPER TAPE vancomycin AdvReac Severe renal Verified 03/24/19 19:14 failure, required dialysis x 3 MONTHS acetaminophen AdvReac Intermediate Liver Verified 03/24/19 19:14 problems. codeine AdvReac Intermediate UPSET Verified 03/24/19 19:14 STOMACH methylparaben AdvReac Intermediate FLUID Verified 03/24/19 19:14 RETENTION oxymorphone AdvReac Intermediate FLUID Verified 03/24/19 19:14 RETENTION pregabalin AdvReac Intermediate Aphasia/Speech Verified 03/24/19 19:14 impairments gabapentin AdvReac Mild Aphasia/Speech Verified 03/24/19 19:14 impairments Sulfa (Sulfonamide AdvReac Mild GI SYMPTOMS Verified 03/24/19 19:14 Antibiotics) PAPER TAPE Allergy Severe rash Uncoded 03/24/19 19:14 Home Medications Home Medications Medication Instructions Recorded Confirmed Type Novolog Flexpen U-100 Insulin 0 unit SUBCUT TIDM 03/12/19 03/24/19 History ProAir RespiClick 2 inh INHALATION Q4 PRN 03/12/19 03/24/19 History Trulicity 0.75 mg SUBCUT WK 03/12/19 03/24/19 History Xarelto 20 mg PO DAILY 03/12/19 03/24/19 History dicyclomine 10 mg PO QID PRN 03/12/19 03/24/19 History duloxetine [Cymbalta] 60 mg PO BID 03/12/19 03/24/19 History furosemide [Lasix] 40 mg PO SUTUTHSA 03/12/19 03/24/19 History furosemide [Lasix] 60 mg PO MOWEFR 03/12/19 03/24/19 History metoclopramide HCl 5 mg PO AC 03/12/19 03/24/19 History potassium chloride 10 meq PO BID 03/12/19 03/24/19 History prochlorperazine maleate 5 mg PO TID PRN 03/12/19 03/24/19 History [Compazine] ranitidine HCl [Zantac] 150 mg PO BID 03/12/19 03/24/19 History spironolactone [Aldactone] 25 mg PO DAILY 03/12/19 03/24/19 History Basaglar KwikPen U-100 Insulin 70 unit SUBCUT BID #0 ml 03/15/19 03/24/19 Rx lactulose 30 ml PO TID PRN 30 Days #2700 ml 03/15/19 03/24/19 Rx rifaximin [Xifaxan] 550 mg PO BID 30 Days #60 tab 03/15/19 03/24/19 Rx baclofen 10 mg PO BID 03/21/19 03/24/19 History carvedilol 12.5 mg PO BID 03/21/19 03/24/19 History levothyroxine 100 mcg PO DAILY 03/21/19 03/24/19 History nortriptyline 25 mg PO DAILY 03/21/19 03/24/19 History Patient History Medical History Abdominal pain (Resolved) Abdominal pain, epigastric (Inactive) Abdominal wall cellulitis (Resolved) Abdominal wall cellulitis (Acute) Acute generalized abdominal pain (Acute) Acute hyperglycemia (Inactive) Acute hypokalemia (Resolved) Anasarca Anemia (Acute) Ankle pain (Resolved) Atrial fibrillation by electrocardiogram (Acute) Atypical syncope (Resolved) Back pain (Acute) Bladder pain (Acute) Bowel obstruction (Resolved) Cauda equina compression (Acute) Cellulitis (Resolved) Cellulitis and abscess of trunk (Resolved Unknown) Chest pain, atypical (Acute) Chronic low back pain (Acute) Cirrhosis Contusion of ankle (Resolved) Contusion of periorbital region, left (Resolved) 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) Deep vein blood clot of right lower extremity (Chronic) Dehydration (Resolved) Diabetic neuropathy (Chronic 01/04/11) DM (diabetes mellitus screen) (Chronic) Drug-seeking behavior (Acute) Exacerbation of chronic back pain (Resolved) Failure of outpatient treatment (Acute) Flank pain (Acute) Fracture of fourth metatarsal bone of left foot (Resolved) Gastritis (Acute) GI bleed (Acute) Headache (Acute) Hernia (Chronic) Hyperglycemia (Resolved) Hypokalemia (Resolved) Hypothyroid (Chronic) Hypothyroidism (Acute) Hypothyroidism Hypoxia (Resolved) Incarcerated ventral hernia (Resolved) Incisional irritation (Resolved) Incisional pain (Resolved) Inguinal lymphadenopathy (Resolved 02/19/11) Kidney stone Left flank pain (Acute) Left low back pain (Acute) 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) intermediate current use of 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 (Chronic) Lumbar disc disease (Acute) Lumbar radiculopathy (Acute) Medically noncompliant (Acute) Morbid obesity (Resolved) Morbid obesity with BMI of 60.0-69.9, adult (Chronic) Noncompliance by refusing service (Acute) Obesity (Acute) RIMA (obstructive sleep apnea) Pain due to ureteral stent (Acute) Pain, dental (Resolved) Periumbilical discomfort (Acute) Pyelonephritis (Acute) Rectal bleeding Renal colic (Acute) Renal colic on right side (Resolved) Renal insufficiency (Resolved) Right sided abdominal pain (Acute) Right-sided chest wall pain (Acute) Septic shock Severe sepsis (Acute) Splenomegaly, not elsewhere classified (Chronic) Supratherapeutic INR (Acute) Syncope (Acute) UTI (urinary tract infection) (Acute) Weight gain, abnormal Surgical History Hx of ventral hernia repair Family History Other Family history non-contributory Social History Preferred Language: Khmer Communication Ability: Effective Elevator Constructor Required: No Beliefs That Will Affect Care: None Current Living Situation: Alone Current Living Situation Comment: Unable to obtain information-pt confused current occupational status: disabled Feels Safe at Home: Yes Safety Concerns: Feels Safe At This Time Smoking Status: Current every day smoker Tobacco Type: cigarettes ; Cigarettes Per Day: 10 ; Do You Dip or Chew Tobacco: No ; Second Hand Exposure: Yes ; Tobacco Cessation Education Requested by Patient: No Hx Alcohol Use: No Hx Substance Use: No Review of Systems Constitutional: no fever, no chills and no weight loss Eyes: as per Subjective / HPI Ear, Nose, Mouth, Throat: as per Subjective / HPI Respiratory: no dyspnea and no dyspnea on exertion Cardiovascular: no chest pain and no palpitations Gastrointestinal: as per Subjective / HPI Musculoskeletal: no joint pain and no swelling Integumentary: no rash and no lesions Neurologic: no numbness and no paresthesia Psychiatric: no depression and no anxiety Endocrine: no fatigue Hematologic / Lymphatic: no easy bleeding and no easy bruising Physical Exam Constitutional: WD/WN, vitals as above Eyes: EOM intact bilaterally Neck: normal visual inspection Respiratory: normal respiratory effort, lungs clear to auscultation Cardiovascular: RRR, no murmur, no edema Gastrointestinal (Abdomen): Inspection/Auscultation: abdomen normal to inspection; abdomen not distended Percussion/Palpation: abdomen soft; abdomen nontender and no hepatosplenomegaly Musculoskeletal: Extremities: no cyanosis Gait: normal gait Skin: no rashes, warm and dry Neurologic: moves all extremities Psychiatric: A+Ox3, euthymic affect Results & Data Vital Signs (Past 12 Hours) Vital Signs Temp Pulse Pulse Resp BP Pulse Ox 03/25/19 12:21 107/71 03/25/19 11:00 36.8 C 88 18 116/77 92 03/25/19 08:00 60 03/25/19 07:00 36.7 C 57 L 18 115/75 93 03/25/19 06:12 117/83 03/25/19 04:59 94/57 L 03/25/19 04:05 92/63 L 03/25/19 04:03 36.5 C 60 16 81/42 L 92 03/25/19 01:33 60 PG Care Time/CCT Total # of Minutes Spent Total Time Spent with Patient: Total time spent is greater than 50% in coordination of care (as documented) at patient's floor/unit and/or counseling patient:
--- NOTE | 2019-03-25 14:49 | Pharmacy Report ---
Glycemic Control Consultation - Date of Service March 25, 2019 - Scope Scope: Glycemic Pharmacist consulted by Dr Gage on 03/24/19 for glycemic control and to write orders per [facility] inpatient glycemic control protocol - Objective Weight: 147 kg Accuchecks BSG (last 24hrs): 03/24/19 03/24/19 03/24/19 18:05 18:23 19:39 Glucose 416 H* POC Glucose 446 H* 420 H* 03/24/19 03/24/19 03/24/19 21:00 23:40 23:43 Glucose POC Glucose 395 H* 186 H 175 H 03/25/19 03/25/19 03/25/19 02:17 04:18 05:46 Glucose 113 H POC Glucose 209 H 148 H 03/25/19 03/25/19 07:55 11:51 Glucose POC Glucose 104 H 147 H Laboratory Data (last 24hrs): 03/24/19 03/25/19 18:23 05:46 Potassium 4.0 3.7 Carbon Dioxide 24 28 Anion Gap 7.0 3.0 Creatinine 1.09 0.88 Est Cr Clr Drug Dosing 84.3 104.5 Beta-Hydroxybutyric Acd 0.96 - Recent Pertinent Medications Outpatient Anti-diabetic Regimen: * Trulicity 0.75 mg SQ weekly * Basaglar 70 units BID * Novolog moderate scale * A1c = 10.5 % 03/13/19 The patient is currently receiving: * Basal insulin: Lantus 35 units x 1 * Correctional Insulin: Novolog Correction per scale ACHS Goal Range: Low 120 mg/dL - High 150 mg/dL Correction Factor: 20 mg/dL/unit * Prandial insulin: Per carb ratio of 1 unit per 7 grams CHO consumed * Oral Agents: Risk Factors for Insulin Resistance: * Infection: possible SBP on Rocephin * Diet: T2DM - Assessment & Plan Assessment & Plan: ASSESSMENT: * Ms Galindo is a 53 y/o F with a PMH of uncontrolled T2DM who presents with eleva jesus ammonia level. During previous hospitalization last month, patient required 77 units of Lantus BID and almost 170 units of insulin daily. * For this admission, the patient received 2 x IV insulin boluses at 10 units each plus Lantus 35 units at midnight. Fasting BSG was 104 mg/dL and lunch 149 mg/dL. * Concerned that the patient may not require as much insulin this admission for unknown reasons. Will give Lantus at suppertime since given at midnight last. Scale with values ranging from none (if blood sugar under 100 mg/dL as this would indicate the 35 units at midnight was too aggressive) to 35 units if blood sugar over 160 mg/dL (as this would indicate patient requires more insulin and blood sugars have subsequently recovered. * Novolog at weight-based stress of 2 for now. PLAN FOR INPATIENT GLYCEMIC CONTROL: * Basal insulin * Lantus 0-35 units SQ with dinner * hold if BSG < 100 mg/dL * 10 units if BSG 100-120 mg/dL * 20 units if BSG 121-160 mg/dL * 35 untis if BSG > 160 mg/dL * Bolus insulin * NovoLog per scale ACHS or Q6hrs while NPO * Goal Range: Low 120 mg/dL - High 150 mg/dL * Correction Factor: 20 mg/dL/unit * Nutritional / Prandial insulin per carb ratio of 1 unit per 7 grams CHO consumed * Please note that the plan above was derived based on current level of insulin resistance and hospital stress. These recommendations are appropriate for inpatient admission only. Plan of care upon discharge will need to be reassessed to avoid potential outpatient hypo/hyperglycemia. Thank you.
[2019-03-25] MEDS ORDERED: INSULIN GLARGINE SOLOSTAR 100 UNITS/ML 3 ML PEN SC SCH ×3 (16:30→21:00)
[2019-03-26] MEDS: cefTRIAXone SODIUM 2,000 MG in DEXTROSE 5% 50 ML IV SCH (00:04)
[2019-03-26] MEDS: HYDROmorphone INJ 0.5 MG/0.5 ML SYR IV PRN ×3 (02:57→11:18)
[2019-03-26] MEDS: LEVOTHYROXINE SODIUM 100 MCG TABLET PO SCH (06:05)
[2019-03-26 06:06] LABS: Estimated Average Glucose 240 mg/dl
[2019-03-26 06:34] LABS: Basophils # (auto) 0.02 K/uL (0-0.2); Basophils % (auto) 0.3 %; Eosinophils # (auto) 0.24 K/uL (0-0.5); Eosinophils % (auto) 3.8 %; Hematocrit (blood only) 31.7 % (37-47); Hemoglobin 10.2 g/dL (12.0-16.0); Immature Granulocytes # (auto) 0.01 K/uL (0.00-0.02); Immature Granulocytes % (auto) 0.2 %; Lymphocytes # (auto) 1.76 K/uL (1.2-3.4); Lymphocytes % (auto) 27.5 %; Mean Corpuscular Hemoglobin 30.3 pg (25-34); Mean Corpuscular Hgb Conc 32.2 g/dL (32-36); Mean Corpuscular Volume 94.1 fL (80-100); Mean Platelet Volume 9.2 fL (7.4-10.4); Monocytes # (auto) 0.63 K/uL (0.11-0.59); Monocytes % (auto) 9.9 %; Neutrophils # (auto) 3.73 K/uL (1.4-6.5); Neutrophils % (auto) 58.3 %; Platelet Count 115 K/uL (130-400); RDW Coefficient of Variation 16.8 % (11.5-14.5); Red Blood Count 3.37 M/uL (4.2-5.4); White Blood Count 6.39 K/uL (4.8-10.8)
[2019-03-26 07:11] LABS: Albumin Level 2.5 gm/dl (3.4-5.0); BUN Creatinine Ratio 14.3 (10-20); Calcium 8.5 mg/dl (8.5-10.1); Creatinine Clr Calc Pharmacy 107.6 ml/min; Est GFR (African American) 82.3; Potassium 4.2 mmol/L (3.5-5.1)
[2019-03-26 07:17] LABS: Albumin Globulin Ratio 0.6 (0.9-2); Globulin 3.9 gm/dl (2.5-4.0); Phosphorus 2.8 mg/dl (2.5-4.9); Total Protein 6.4 gm/dl (6.4-8.2)
[2019-03-26] MEDS: DOXYCYCLINE HYCLATE 100 MG CAP PO SCH (08:16)
[2019-03-26] MEDS: DULOXETINE HCL 60 MG CAP PO SCH (08:16)
[2019-03-26] MEDS: POTASSIUM CHLORIDE 10 MEQ TABCR PO SCH (08:16)
[2019-03-26] MEDS: BACLOFEN 10 MG TAB PO SCH (08:16)
[2019-03-26] MEDS: LACTULOSE SYRUP 30 GM/45 ML UDP PO SCH ×2 (08:16→14:14)
[2019-03-26] MEDS: NORTRIPTYLINE HCL 25 MG CAP PO SCH (08:16)
[2019-03-26] MEDS: METOCLOPRAMIDE HCL 5 MG TABLET PO SCH ×2 (08:16→11:19)
[2019-03-26] MEDS: carvediloL 12.5 MG TAB PO SCH (08:16)
[2019-03-26] MEDS: RIVAROXABAN 20 MG TAB PO SCH (08:16)
[2019-03-26] MEDS: RIFAXIMIN 550 MG TABLET PO SCH (08:17)
[2019-03-26] MEDS: INSULIN ASPART 100 UNITS/ML 3 ML PEN SC SCH ×2 (08:18→12:55)
[2019-03-26] MEDS ORDERED: INSULIN GLARGINE SOLOSTAR 100 UNITS/ML 3 ML PEN SC ONE ×2 (09:00→12:45)
--- NOTE | 2019-03-26 10:25 | Gastroenterology Progress Note ---
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 She is AAOx3 today, no signs of asterixis. Reports at home bowels move 2-5x a day with Lactulose and Rifaximin. CT head negative for acute findings, CXR, UA unremarkable. No other signs of decompensation such as GI bleed, ascites, hyponatremia MELD 7. - Titrate Lactulose for goal BM 3-5x a day - No other med changes - Last EGD in 2016 w no signs of varices, + gastric ulcer. - Last colonoscopy in 2012 showed adenomatous polyp. She is due for repeat colonoscopy - Has appt to see GILDA Nogueira on 04/02/19 at 9:30a for f/u in GI [facility]. - No new GI plans; please recall prn Supervising Physician Co-Signing Physician Notes I have seen and examined the patient and discussed the management with GILDA Ramirez. PE - obese white fm in nad, HEENT - perrla, no scleral icterus, Abd - obese, soft nt nd +bs, Ext - trace edema, neuro- cn's 2-12 intact, Psych- intact affect, Skin- tanned appearing MELD 7 No overt infection On empiric ceftriaxone, lactulose, xifaxan She has had a recent egd, colon recall is in. Advised to continue to avoid etoh, limit tylenol to less than 2 grams daily if taken. Gi will sign off - outpatient fup is already arranged as per Rosa's plan Sofia Saleh MD Subjective Pt feels well, answering questions appropriately. She has mild nausea, no vomiting. Tolerating solid meals. + mild abd tenderness. Bowels moving well 2-5 x a day per her report. She denies any black/tarry or blood in stools Review of Systems Review of Systems: All systems reviewed & are unremarkable except as noted in HPI & below Physical Exam Constitutional: + morbidly obese, well groomed, cooperative and comfortable Eyes: PERRL, conjunctivae normal, anicteric sclerae ENMT: external ear and nose normal, oropharynx normal Respiratory: normal respiratory effort, lungs clear to auscultation Cardiovascular: RRR, no murmur, no edema Gastrointestinal (Abdomen): Inspection/Auscultation: + hypoactive bowel sounds Percussion/Palpation: + abdomen tender (LUQ) and abdomen soft Skin: no rashes, warm and dry no jaundice Neurologic: Motor/Sensory: no asterixis Psychiatric: A+Ox3, euthymic affect Lymphatic: + lymphedema (Generalized, non pitting leg edema) Results & Data Vital Signs (Past 12 Hours) Vital Signs Temp Pulse Pulse Pulse Resp BP Pulse Ox 03/26/19 07:28 72 03/26/19 07:15 36.6 C 67 20 106/70 92 03/26/19 04:19 36.3 C L 75 20 132/80 97 03/26/19 03:18 66 03/26/19 00:06 75 03/25/19 23:55 80 03/25/19 23:05 36.6 C 70 18 101/63 97 Pulse Ox 03/26/19 07:28 03/26/19 07:15 03/26/19 04:19 03/26/19 03:18 93 03/26/19 00:06 91 03/25/19 23:55 03/25/19 23:05
--- NOTE | 2019-03-26 11:41 | Hospitalist Progress Note ---
Date of Service March 26, 2019 Assessment & Plan (1) Acute hyperglycemia: Has diabetes and on insulin Noted to have blood sugar of more than 5 home without significant symptoms Did have some nonspecific chest pain and pain in the left arm Pharmacy has been consulted Blood sugar is running around 110s this morning Hemoglobin A1c has gone up to 10 from 7.5 last year Pharmacy has been consulted for diabetic management and will be going home on new regimen of insulin (2) Hyperammonemia: Has history of [place] cirrhosis Has been taking lactulose as an outpatient Denies to have any significant change in mental status Ammonia level is high at 136 Mentally clear at this morning and ammonia level has improved to 90 GI has been consulted for management of MEEK cirrhosis Appreciate GI input and recommendation Will have an outpatient appointment with GI (3) Hypothyroidism: Continue supplement (4) Morbid obesity with BMI of 60.0-69.9, adult: Advised to reduce weight (5) RIMA (obstructive sleep apnea): History of RIMA and has had surgery for that Does not use any CPAP and a BiPAP at home She will have a nocturnal pulse oximetry while in the hospital She does not require any oxygen at nighttime (6) Acute bronchiolitis: Noted to have cough with the sputum on admission Has been put on intravenous ceftriaxone and oral doxycycline Possible otitis externa Continue current antibiotic History of DVT and pulmonary embolism Has been on Xarelto and will continue CODE STATUS Full Discharge home this afternoon Subjective 03/25 The patient was seen and examined in medical telemetry unit She is a 53-year-old female morbidly obese with history of sleep apnea and noncompliant with BiPAP and/or CPAP and also history of diabetes, hypothyroidism, hyperlipidemia, DVT and pulmonary embolism on Xarelto has been noted to have very high blood sugar at home. She complained to him some weakness but denies any other significant symptoms She has noted to have borderline high ammonia secondary to her MEEK cirrhosis She has been feeling a lot better since admission 03/26 The patient was seen and examined in medical floor She is out of bed on a chair without any acute symptoms Her blood sugar has been reasonably stabilized with insulin She denies any other symptoms and she wants to go home Review of Systems Review of Systems: All systems reviewed and are unremarkable except as noted below Physical Exam Physical Exam: Sitting on a chair out of bed without any acute symptoms Constitutional: well developed, well nourished and + morbidly obese; no acute distress and not ill appearing Eyes: PERRL, conjunctivae normal, anicteric sclerae ENMT: external ear and nose normal, oropharynx normal Neck: trachea midline, no thyromegaly Respiratory: normal respiratory effort; no respiratory distress Cardiovascular: Rate/Rhythm: regular rate and regular rhythm Heart Sounds: no murmur Gastrointestinal (Abdomen): Inspection/Auscultation: + abdomen distended Percussion/Palpation: abdomen soft; abdomen nontender Musculoskeletal: No acute arthritis in any of the joints Neurologic: Alert, awake and oriented x3 Results & Data Vital Signs (Past 12 Hours) Vital Signs Temp Pulse Pulse Pulse Resp BP Pulse Ox 03/26/19 07:28 72 03/26/19 07:15 36.6 C 67 20 106/70 92 03/26/19 04:19 36.3 C L 75 20 132/80 97 03/26/19 03:18 66 03/26/19 00:06 75 03/25/19 23:55 80 Pulse Ox 03/26/19 07:28 03/26/19 07:15 03/26/19 04:19 03/26/19 03:18 93 03/26/19 00:06 91 03/25/19 23:55 Laboratory Results Short CBC 03/26/19 Range/Units 06:19 WBC 6.39 (4.8-10.8) K/uL Hgb 10.2 L (12.0-16.0) g/dL Hct 31.7 L (37-47) % Plt Count 115 L (130-400) K/uL BMP 03/26/19 06:19 Sodium 139 Potassium 4.2 Chloride 107 Carbon Dioxide 27 BUN 13 Creatinine 0.91 Glucose 158 H Calcium 8.5 Liver Function 03/26/19 Range/Units 06:19 Total Bilirubin 1.0 D (0.2-1) mg/dl AST 46 H (15-37) U/L ALT 38 (12-78) U/L Alkaline Phosphatase 125 H (45-117) U/L Albumin 2.5 L (3.4-5.0) gm/dl Medications Administered Current Inpatient Medications Acetaminophen (Tylenol) 650 mg PO Q4H PRN PRN Reason: Pain or Fever Stop: 04/23/19 22:37 Albuterol (Ventolin Hfa) 2 puffs INH Q4 PRN PRN Reason: Shortness Of Breath Or Wheezing Stop: 04/23/19 22:54 Baclofen (Lioresal) 10 mg PO BID PAUL Stop: 04/24/19 08:59 Last Admin: 03/26/19 08:16 Dose: 10 mg Documented by: Carvedilol (Coreg) 12.5 mg PO BID PAUL Stop: 04/24/19 08:59 Last Admin: 03/26/19 08:16 Dose: 12.5 mg Documented by: Dextrose (Dextrose 50%) 25 - 50 ml IV UD PRN; Protocol PRN Reason: Hypoglycemia Protocol Stop: 04/23/19 22:59 Dicyclomine HCl (Bentyl) 10 mg PO QID PRN PRN Reason: ABD PAIN Stop: 04/23/19 22:37 Doxycycline Hyclate (Vibramycin) 100 mg PO BID PAUL Stop: 03/31/19 22:37 Last Admin: 03/26/19 08:16 Dose: 100 mg Documented by: Duloxetine HCl (Cymbalta) 60 mg PO BID PAUL Stop: 04/24/19 08:59 Last Admin: 03/26/19 08:16 Dose: 60 mg Documented by: Glucagon (Glucagen) 1 mg SQ UD PRN; Protocol PRN Reason: Hypoglycemia Protocol Stop: 04/23/19 22:59 Glucose (Glucose 40%) 15 - 30 gm PO UD PRN; Protocol PRN Reason: Hypoglycemia Protocol Stop: 04/23/19 22:59 Glucose (Dex4 Glucose) 4 - 8 tabs PO UD PRN; Protocol PRN Reason: Hypoglycemia Protocol Stop: 04/23/19 22:59 Hydromorphone HCl (Dilaudid) 0.5 mg IV Q4H PRN PRN Reason: Pain Stop: 04/08/19 01:45 Last Admin: 03/26/19 11:18 Dose: 0.5 mg Documented by: Ceftriaxone Sodium 2,000 mg/ (Dextrose) 70 mls @ 140 mls/hr IV Q24H PAUL Stop: 04/01/19 00:00 Last Infusion: 03/26/19 00:37 Dose: Infused Documented by: Insulin Aspart (Novolog Flexpen) 0 units SC ACHS PAUL Stop: 04/24/19 07:29 Last Admin: 03/26/19 08:18 Dose: 8 units Documented by: Lactulose (Chronulac) 30 gm PO TID PAUL Stop: 04/23/19 22:37 Last Admin: 03/26/19 08:16 Dose: 30 gm Documented by: Levothyroxine Sodium (Synthroid) 100 mcg PO DAILYBB PAUL Stop: 04/24/19 06:29 Last Admin: 03/26/19 06:05 Dose: 100 mcg Documented by: Metoclopramide HCl (Reglan) 5 mg PO AC [facility] Stop: 04/24/19 07:29 Last Admin: 03/26/19 11:19 Dose: 5 mg Documented by: Miscellaneous (Carbohydrates For Hypoglycemia) 15 - 30 gm PO UD PRN PRN Reason: Hypoglycemia Treatment Stop: 04/23/19 22:59 Miscellaneous Information (Consult Glycemic Management Pharmacy) 1 ea N/A UD PRN PRN Reason: Consult Stop: 04/23/19 22:57 Nitroglycerin (Nitrostat) 0.4 mg SL UD PRN PRN Reason: Chest Pain Stop: 04/23/19 22:37 Nortriptyline HCl (Pamelor) 25 mg PO DAILY [facility] Stop: 04/24/19 08:59 Last Admin: 03/26/19 08:16 Dose: 25 mg Documented by: Ondansetron HCl (Zofran) 4 mg IV Q6H PRN PRN Reason: Nausea Stop: 04/23/19 22:37 Potassium Chloride (Klor-Con M10) 10 meq PO BID [facility] Stop: 04/24/19 08:59 Last Admin: 03/26/19 08:16 Dose: 10 meq Documented by: Prochlorperazine (Compazine) 5 mg PO TID PRN PRN Reason: Nausea Stop: 04/23/19 22:37 Ranitidine HCl (Zantac) 150 mg PO BID [facility] Stop: 04/24/19 08:59 Last Admin: 03/26/19 08:17 Dose: 150 mg Documented by: Rifaximin (Xifaxan) 550 mg PO BID [facility] Stop: 04/23/19 22:37 Last Admin: 03/26/19 08:17 Dose: 550 mg Documented by: Rivaroxaban (Xarelto) 20 mg PO DAILY [facility] Stop: 04/24/19 08:59 Last Admin: 03/26/19 08:16 Dose: 20 mg Documented by:
--- NOTE | 2019-03-26 12:54 | Pharmacy Report ---
Pharmacy Glycemic Short Note 2 - Date of Service March 26, 2019 - Glycemic Short BSG Results (Last 24 hours): 03/25/19 03/25/19 03/26/19 16:17 19:58 06:19 Glucose 158 H POC Glucose 184 H 284 H 03/26/19 03/26/19 07:26 11:49 Glucose POC Glucose 148 H 274 H OUTPATIENT ANTIDIABETIC REGIMEN: * Trulicity 0.75 mg SQ weekly * Basaglar 70 units BID * Novolog moderate scale ASSESSMENT: * Ms Galindo is a 53 y/o F with a PMH of uncontrolled T2DM who presents with elevated ammonia level. During previous hospitalization last month, patient required 77 units of Lantus BID and almost 170 units of insulin daily. * For this admission, the patient received 2 x IV insulin boluses at 10 units each plus Lantus 35 units at midnight. Fasting BSG was 104 mg/dL and lunch 149 mg/dL. * Concerned that the patient may not require as much insulin this admission for unknown reasons. Will give Lantus at suppertime since given at midnight last. Scale with values ranging from none (if blood sugar under 100 mg/dL as this would indicate the 35 units at midnight was too aggressive) to 35 units if blood sugar over 160 mg/dL (as this would indicate patient requires more insulin and blood sugars have subsequently recovered. * Novolog at weight-based stress of 2 for now. 03/26: * Fasting BSG this am w/in range at 158 mg/dL - will continue with Lantus 35 units this morning * Lunchtime BSG trending up 274 mg/dL - unclear to reasoning/nurse states patient not snacking. Would have expecting fasting BSG to be higher since outpatient basal dose has been reduced * Will give another 10 units of Lantus and tighten CF/CR parameters PLAN FOR INPATIENT GLYCEMIC CONTROL: * Basal insulin * Lantus 35 units this AM (give additional 10 at lunch) * Lantus scale with dinner * Bolus insulin - tighten * NovoLog per scale ACHS or Q6hrs while NPO * Goal Range: Low 120 mg/dL - High 150 mg/dL * Correction Factor: 15 mg/dL/unit * Nutritional / Prandial insulin per carb ratio of 1 unit per 5 grams CHO consumed PLAN FOR DISCHARGE: * A1c of 10.0% on 03/25 * Goal A1c < 8% is reasonable * During this admission patient only requiring ~50-75% of basal dosing * On last admission (02/2019), patient evaluated by chemical educator and patient reported consumption of soda/sugary drinks. Feel that outpatient regimen likely appropriate given poor eating habits at home. Likely diet in hospital much better therefore insulin need is less * Feel that it is reasonable to continue outpatient regimen as long as patient not having low BSGs at home * Recommend discharge on Basaglar 70 units BID + novolog sliding scale and trulicity - if BSGs still rising at dinner would recommend taking evening basaglar dose early today on 03/26 * Basal insulin dose may need further titration down if patient is willing to improve diet in the future. * Further adjustments can be made on an outpatient basis once effect of dietary changes are seen.
--- NOTE | 2019-03-26 18:24 | Discharge Summary ---
Date of Service March 26, 2019 Admission HPI Per Admitting Provider HISTORY OF PRESENT ILLNESS: This is a 53-year-old female with past medical history significant for morbid obesity, sleep apnea, noncompliant with BiPAP. She says since she had a surgery for sleep apnea, she is not requiring it. She has a history of diabetes, hypothyroidism, diabetic polyneuropathy, hyperlipidemia, history of pulmonary embolism, history of DVT on Xarelto, hypertension, recurrent idiopathetic thrombophlebitis, history of GAMBOA liver cirrhosis, history of GERD with esophagitis, history of spinal stenosis, history of drug dependence in the past, history of migraines, bipolar 1 disorder, history of tobacco abuse disorder, history of medical marijuana use in the past. The patient has history of cellulitis of the right lower extremity and also abdominal wall cellulitis, history of small-bowel obstruction. The patient lives at home. She has caregiver, Mr. Garza, who helps her. The patient's sugars were almost 300every day since about a week but today it was running high in the 500-600 range. That is the reason she came here. She was here recently, got admitted on 03/13/2019 for hepatic encephalopathy and she was discharged on lactulose and Xifaxan, but she says her insurance not covering the Xifaxan, but she says she is taking lactulose regularly and she is having 3 bowel movements every day and she says her mental status is much clearer now, but today when she came to the ER, her sugars were 515, her ammonia level was 130. Patient and client care manager questioning why her ammonia level is so high though patinet having bowel movements every day and she is not confused. She did not take the lactulose l today because she thought her sugars are running high because of the lactulose. Hemodynamics are okay. She says she sleeps okay. Ambulates with help of walker and support with her caregiver.Appetite is okay. Has some mild headache, mild dizziness when she walks and some mild blurred visions. Has earache in her left ear that is chronic for couple of months. Denies any fever, chills. Has cough for 1 or 2 months now with greenish phlegm. Denies any chest pain. Denies any shortness of breath. Being nauseous but no vomiting, mild abdominal discomfort from her hernia. No blood in stools or black stools. No burning micturition, no hematuria. No rash. Has some edema in the legs. Currently resting comfortably and hemodynamically stable. Complains of neck pain radiating to left arm. Admission Exam Per Admitting Provider GENERAL: The patient is morbidly obese, not in acute distress. VITAL SIGNS: Temperature 36.7, pulse 63, blood pressure 105/72, respiratory rate 14, oxygen 100% on room air. HEENT: No pallor, no icterus. Pupils equal, round, reactive to light. NECK: No JVD, no neck masses, no carotid bruits. CARDIOVASCULAR: S1, S2 heard, regular rate and rhythm, no murmur, no gallop. RESPIRATORY SYSTEM: Normal AP diameter. No accessory muscle use. No wheezing, no crackles. ABDOMEN: Soft, bowel sounds present. Mild abdominal discomfort. No guarding. No rigidity. CENTRAL NERVOUS SYSTEM: Cranial nerves II-XII grossly nonfocal. Alert and oriented x2. Obeys simple commands. Moves extremities. EXTREMITIES: Mild lower extremity edema present, no erythema seen. Principal Diagnosis Uncontrolled diabetes, RIMA status post surgery in the past, hypothyroidism Discharge Exam Constitutional well developed, well nourished and + morbidly obese; no acute distress and not ill appearing Eyes PERRL, conjunctivae normal, anicteric sclerae ENMT external ear and nose normal, oropharynx normal Neck trachea midline, no thyromegaly Respiratory normal respiratory effort; no respiratory distress Cardiovascular Rate/Rhythm: regular rate and regular rhythm Heart Sounds: no murmur Gastrointestinal (Abdomen) Inspection/Auscultation: + abdomen distended Percussion/Palpation: abdomen soft; abdomen nontender Discharge Data Allergies Allergy/AdvReac Type Severity Reaction Status Date / Time alprazolam Allergy Intermediate MAKES Verified 03/24/19 19:14 LOOPY,DO AND SAY SILLY THINGS haloperidol Allergy Intermediate nervous Verified 03/24/19 19:14 and anxious Iodinated Contrast Media Allergy Intermediate hives-PT Verified 03/24/19 19:14 DENIES SEE NOTE metformin Allergy Intermediate HANDS FEET Verified 03/24/19 19:14 FACE NUMB morphine Allergy Intermediate SWELLING Verified 03/24/19 19:14 LEGS AND FEET adhesive Allergy Mild RED RASH Verified 03/24/19 19:14 CAUSED BY PAPER TAPE vancomycin AdvReac Severe renal Verified 03/24/19 19:14 failure, required dialysis x 3 MONTHS acetaminophen AdvReac Intermediate Liver Verified 03/24/19 19:14 problems. codeine AdvReac Intermediate UPSET Verified 03/24/19 19:14 STOMACH methylparaben AdvReac Intermediate FLUID Verified 03/24/19 19:14 RETENTION oxymorphone AdvReac Intermediate FLUID Verified 03/24/19 19:14 RETENTION pregabalin AdvReac Intermediate Aphasia/Speech Verified 03/24/19 19:14 impairments gabapentin AdvReac Mild Aphasia/Speech Verified 03/24/19 19:14 impairments Sulfa (Sulfonamide AdvReac Mild GI SYMPTOMS Verified 03/24/19 19:14 Antibiotics) PAPER TAPE Allergy Severe rash Uncoded 03/24/19 19:14 Consultations 03/24/19 20:02 ED Decision to Admit Stat 03/24/19 22:38 Consult Case Management - Discharge Planning Routine 03/25/19 08:00 Consult Gastroenterology Routine Hospital Course (1) Acute hyperglycemia: Has diabetes and on insulin Noted to have blood sugar of more than 5 home without significant symptoms Did have some nonspecific chest pain and pain in the left arm Pharmacy has been consulted Blood sugar is running around 110s this morning Hemoglobin A1c has gone up to 10 from 7.5 last year Pharmacy has been consulted for diabetic management and will be going home on new regimen of insulin (2) Hyperammonemia: Has history of [place] cirrhosis Has been taking lactulose as an outpatient Denies to have any significant change in mental status Ammonia level is high at 136 Mentally clear at this morning and ammonia level has improved to 90 GI has been consulted for management of GAMBOA cirrhosis Appreciate GI input and recommendation Will have an outpatient appointment with GI (3) Hypothyroidism: Continue supplement (4) Morbid obesity with BMI of 60.0-69.9, adult: Advised to reduce weight (5) RIMA (obstructive sleep apnea): History of RIMA and has had surgery for that Does not use any CPAP and a BiPAP at home She will have a nocturnal pulse oximetry while in the hospital She does not require any oxygen at nighttime (6) Acute bronchiolitis: Noted to have cough with the sputum on admission Has been put on intravenous ceftriaxone and oral doxycycline Possible otitis externa Continue current antibiotic History of DVT and pulmonary embolism Has been on Xarelto and will continue CODE STATUS Full Discharge home this afternoon Total Time Total Time Spent Total Time Spent (In Minutes): 35 minutes Total Time Includes: Examination of the Patient, Discharge Planning, Medication Reconciliation and Communication With Other Providers Discharge Plan Discharge Items Patient Disposition: Home - Self-Care Reason For Visit: HYPERGLYCEMIA, NECK PAIN Discharge Diagnosis: Uncontrolled diabetes, RIMA status post surgery in the past, hypothyroidism Condition on Discharge: Fair Activity: Resume your previous activity Non-emergency contact: Primary Care Provider Call non-emergency contact if: you have any medication questions Follow-up/Referrals: Dewey Mcfadden DO [Primary Care Provider] - 03/29/19 3:10 pm Diet: Carb Consistent or DM2 and Low Sodium (2gm) Addtl Attending Provider Instructions: Please take precaution to avoid fall Your nocturnal pulse oximetry was negative that means you do not need any oxygen at night Please follow diabetic diet and take insulin as prescribed to improve her diabetes control Pending Studies at Discharge: No Stand-Alone Forms: My Docin, Smoking Cessation Medications and DC Order Prescriptions: New doxycycline hyclate 100 mg Capsule 100 mg PO BID Qty: 10 RF: 0 Continued Trulicity 0.75 mg/0.5 mL pen injector 0.75 mg SUBCUT WK RF: 0 potassium chloride 10 mEq capsule, extended release 10 meq PO BID RF: 0 prochlorperazine maleate [Compazine] 5 mg tablet 5 mg PO TID PRN (Reason: Nausea) RF: 0 spironolactone [Aldactone] 25 mg tablet 25 mg PO DAILY RF: 0 metoclopramide HCl 5 mg Tablet 5 mg PO AC RF: 0 ranitidine HCl [Zantac] 150 mg tablet 150 mg PO BID RF: 0 dicyclomine 10 mg Capsule 10 mg PO QID PRN (Reason: ABD PAIN) RF: 0 Novolog Flexpen U-100 Insulin 100 unit/mL (3 mL) insulin pen 0 unit SUBCUT TIDM RF: 0 duloxetine [Cymbalta] 60 mg capsule,delayed release(DR/EC) 60 mg PO BID RF: 0 Xarelto 20 mg tablet 20 mg PO DAILY RF: 0 ProAir RespiClick 90 mcg/actuation Aerosol Powdr Breath Activated 2 inh INHALATION Q4 PRN (Reason: Shortness Of Breath) RF: 0 furosemide [Lasix] 20 mg Tablet 40 mg PO SUTUTHSA RF: 0 furosemide [Lasix] 20 mg Tablet 60 mg PO MOWEFR RF: 0 Xifaxan 550 mg Tablet 550 mg PO BID 30 Days Qty: 60 RF: 0 lactulose 20 gram/30 mL Solution 30 ml PO TID PRN (Reason: hepatic encephalopathy) 30 Days Qty: 2700 RF: 0 Basaglar KwikPen U-100 Insulin 100 unit/mL (3 mL) insulin pen 70 unit SUBCUT BID Qty: 0 RF: 0 carvedilol 12.5 mg Tablet 12.5 mg PO BID RF: 0 nortriptyline 25 mg Capsule 25 mg PO DAILY RF: 0 levothyroxine 100 mcg tablet 100 mcg PO DAILY RF: 0 baclofen 10 mg Tablet 10 mg PO BID RF: 0 Discharge Orders: Discharge Order (Routine); Ordered 03/26/19 Ordered By: Chu Gomes Admission Data Admit Date/Time: 03/24/19 21:27 Attending Provider: Chu Gomes Admit Provider: Izaiah Gage Primary Care Provider: Dewey Mcfadden Other Providers: Izaiah Gage ; See Ramirez ; Pauline Cisneros ; Vicky Patterson ; Kait Zavaleta ; Carlos Jones ; Jamie Guadalupe ; Eloy Cantu ; Yanna Garduno ; Casey Arcos ; Oscar Cleveland ; Janett Rizvi ; Skyla Mathew ; Rosa Rosado ; Sofia Saleh ; Hilton Morgan ; [facility] Other Interventions: Discharge Summary Assessment (RN) Last Done: 03/26/19 14:43 DC Date/Time DO NOT enter until pt leaves facility: 03/26/19 15:04
[2019-03-26] MEDS ORDERED: INSULIN GLARGINE SOLOSTAR 100 UNITS/ML 3 ML PEN SC SCH (21:00)
== END 2019-03-26 15:04 | disposition home health service (06) | DRG 638 ==
LOC: ED 17:57 → 2N 21:27

== ENCOUNTER 2019-07-03 22:18 | Inpatient (IN) ==
[2019-07-03] MEDS ORDERED: SODIUM CHLORIDE 0.9% 500 ML IV SCH (22:45)
--- NOTE | 2019-07-03 22:58 | Emergency Department Note ---
Entered by Estephanie Rsoa acting as a scribe for Hany Crespo DO History of Present Illness General Chief complaint: GI Assessment Stated complaint: BLOODY STOOL, PAIN IN BOTH FEET Time Seen by Provider: 07/03/19 22:28 Source: patient History of Present Illness Onset (ago): hour(s) 2 Location: abdomen Pain Consistency: + constant Maximum Pain Intensity: 6 Current Pain Intensity: 6 Relieved By: + none Exacerbated By: + none Associated symptoms: + other (abdominal pain, feet pain) Treatments prior to arrival: none The patient is a 53 year old female who presents to the Emergency Room with complaints of bloody stool that began about 2 hours ago. She states that she had about 3 bowel movements tonight where she noticed blood. She states that the blood is red and not dark. She also complains of abdominal pain and pain in her feet. She notes that she has a scheduled colonoscopy coming up. Home Medications Home Medications Medication Instructions Recorded Confirmed Type ProAir RespiClick 2 inh INHALATION Q4 PRN 03/12/19 07/03/19 History Trulicity 0.75 mg SUBCUT WK 03/12/19 07/03/19 History Xarelto 20 mg PO QPM 03/12/19 07/03/19 History dicyclomine 10 mg PO QID PRN 03/12/19 07/03/19 History duloxetine [Cymbalta] 60 mg PO BID 03/12/19 07/03/19 History furosemide [Lasix] 60 mg PO TID 03/12/19 07/03/19 History insulin aspart U-100 [Novolog 0 unit SUBCUT TIDM 03/12/19 07/03/19 History Flexpen U-100 Insulin] metoclopramide HCl 5 mg PO AC 03/12/19 07/03/19 History potassium chloride 10 meq PO BID 03/12/19 07/03/19 History prochlorperazine maleate 5 mg PO TID PRN 03/12/19 07/03/19 History [Compazine] ranitidine HCl [Zantac] 150 mg PO BID 03/12/19 07/03/19 History spironolactone [Aldactone] 25 mg PO QAM 03/12/19 07/03/19 History Basaglar KwikPen U-100 Insulin 70 unit SUBCUT BID #0 ml 03/15/19 07/03/19 Rx baclofen 10 mg PO BID 03/21/19 07/03/19 History carvedilol 12.5 mg PO QAM 03/21/19 07/03/19 History nortriptyline 25 mg PO HS 03/21/19 07/03/19 History levothyroxine 125 mcg PO QAM 05/17/19 07/03/19 History ibuprofen [Advil] 600 mg PO Q6H PRN 06/28/19 07/03/19 History lactulose 30 gm PO TID #3000 ml 07/01/19 07/03/19 Rx pantoprazole 40 mg PO DAILY 07/03/19 07/03/19 History Allergies Allergy/AdvReac Type Severity Reaction Status Date / Time alprazolam Allergy Intermediate MAKES Verified 07/03/19 23:03 LOOPY,DO AND SAY SILLY THINGS haloperidol Allergy Intermediate nervous Verified 07/03/19 23:03 and anxious Iodinated Contrast Media Allergy Intermediate hives-PT Verified 07/03/19 23:03 DENIES SEE NOTE metformin Allergy Intermediate HANDS FEET Verified 07/03/19 23:03 FACE NUMB morphine Allergy Intermediate SWELLING Verified 07/03/19 23:03 LEGS AND FEET adhesive Allergy Mild RED RASH Verified 07/03/19 23:03 CAUSED BY PAPER TAPE vancomycin AdvReac Severe renal Verified 07/03/19 23:03 failure, required dialysis x 3 MONTHS acetaminophen AdvReac Intermediate Liver Verified 07/03/19 23:03 problems. codeine AdvReac Intermediate UPSET Verified 07/03/19 23:03 STOMACH methylparaben AdvReac Intermediate FLUID Verified 07/03/19 23:03 RETENTION oxymorphone AdvReac Intermediate FLUID Verified 07/01/19 10:32 RETENTION pregabalin AdvReac Intermediate Aphasia/Speech Verified 07/01/19 10:32 impairments gabapentin AdvReac Mild Aphasia/Speech Verified 07/01/19 10:32 impairments Sulfa (Sulfonamide AdvReac Mild GI SYMPTOMS Verified 07/01/19 10:32 Antibiotics) PAPER TAPE Allergy Severe rash Uncoded 07/01/19 10:32 Past Med/Surg History Medical History Anemia (Acute) HX OF AND NO PROBLEMS Atrial fibrillation by electrocardiogram (Acute) DX: 2013 TAKES XARELTO AND FOLLOW WITH MEDICAL DOCTOR Chronic low back pain (Acute) Cirrhosis MEDICAL 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) RIGHT AND LEFT LEG AND THEN MOVED LUNG - 2001 Diabetes Diabetic neuropathy (Chronic 01/04/11) Gastritis (Acute) GI bleed (Acute) HX OF AND NO CURRENT PROBLEMS Hypothyroidism (Acute) Kidney stone HX OF AND HAD LITHOTRIPSY Obesity (Acute) RIMA (obstructive sleep apnea) HX OF AND NO CURRENT PROBLEM Surgical History Hx of lithotripsy Hx of ventral hernia repair Family History Other Family history non-contributory Social History Preferred Language: Fijian Communication Ability: Effective 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 and A total of 10 systems reviewed and were otherwise negative Physical Exam Vital Signs Vital Signs - 24 hr 07/03/19 22:21 07/03/19 22:47 07/03/19 23:28 Temperature 36.4 C L Temperature Source Oral Pulse Rate 135 H 68 Pulse Rate [Apical] 66 Respiratory Rate 18 18 14 Respiratory Effort / Characteristics Non-Labored Spontaneous Respiratory Depth Normal Respiratory Pattern Regular Blood Pressure 131/78 Blood Pressure [Left Arm] 116/61 Blood Pressure Mean 95 Blood Pressure Mean [Left Arm] 79 Blood Pressure Position Sitting Pulse Oximetry 98 99 100 Oxygen Delivery Method Room Air Room Air Room Air Sepsis Recent Fever Within 48 Hours No Sepsis Action Taken by Nursing No Action Required CONSTITUTIONAL/VITAL SIGNS: Reviewed / noted above. GENERAL: Non-toxic in appearance. INTEGUMENTARY: Warm, dry, and [place]. HEAD: Normocephalic. EYES: without scleral icterus or trauma. ENT/OROPHARYNX: clear and moist. LYMPHADENOPATHY/NECK: Is supple without lymphadenopathy or meningismus. RESPIRATORY: Lungs clear and equal. CARDIOVASCULAR: Regular rate and rhythm. GI/ABDOMEN: Soft and nontender. No organomegaly or pulsatile mass. No rebound or guarding. Normal bowel sounds. RECTAL: Stool is loose and maroon, guaiac positive. EXTREMITIES: Warm and well perfused. BACK: No CVA tenderness. NEUROLOGICAL: Intact without focal deficits. PSYCHIATRIC: normal affect. MUSCULOSKELETAL: Normally developed with good muscle tone. Procedures EJ/Peripheral Line Arm R: Time Out Performed: Yes Skin Cleansed in Sterile Fashion: Yes Size (gauge): 20 IV Secured and Dressing Applied: Yes Patient Tolerated Procedure: well Additional Comments: bedside ultrasound used to find vein. Nursing was unable to secure iv access. Course Course 2233: Past medical records reviewed. The patient was evaluated in room B02. A complete history and physical exam was performed. 2338: I spoke to Dr. Gage, [facility] hospitalist, who agreed to take over care of the patient. She will be evaluated over concern for a GI bleed. The patient understands and is agreeable to this treatment plan. She will stay for evaluation. Administered Medications Discontinued Medications Sodium Chloride (Nss) 500 mls @ 999 mls/hr IV .Q31M PAUL Stop: 07/03/19 23:15 Last Admin: 07/03/19 23:31 Dose: 999 mls/hr Documented by: [id number] Medical Decision Making Differential Diagnosis Differential diagnosis includes: diverticulosis, AVM, coagulopathy, colitis, inflammatory bowel disease, malignancy, Negin-Vargas tear, esophagitis, peptic ulcer disease, variceal bleed, gastritis, epistaxis, fissure, hemorrhoids, as well as others were entertained. Medical Records Attestation: I reviewed the patient's medical records. Home Medications Current Medication List: was personally reviewed by me Laboratory Data Attestation: I reviewed the patient's lab results. Result diagrams: 07/03/19 22:48 07/03/19 22:48 Lab Results 07/03/19 07/03/19 07/03/19 Range/Units 22:48 22:48 22:48 WBC 4.49 L (4.8-10.8) K/uL RBC 3.63 L (4.2-5.4) M/uL Hgb 9.6 L (12.0-16.0) g/dL Hct 30.9 L (37-47) % MCV 85.1 (80-100) fL MCH 26.4 (25-34) pg MCHC 31.1 L (32-36) g/dL RDW Std Deviation 49.6 H (36.4-46.3) fL RDW Coeff of Mari 16.1 H (11.5-14.5) % Plt Count 130 (130-400) K/uL MPV 10.3 (7.4-10.4) fL Immature Gran % (Auto) 0.2 % Neut % (Auto) 54.4 % Lymph % (Auto) 31.0 % [place] % (Auto) 10.9 % Eos % (Auto) 3.1 % Baso % (Auto) 0.4 % Immature Gran # (Auto) 0.01 (0.00-0.02) K/uL Neut # (Auto) 2.44 (1.4-6.5) K/uL Lymph # (Auto) 1.39 (1.2-3.4) K/uL [place] # (Auto) 0.49 (0.11-0.59) K/uL Eos # (Auto) 0.14 (0-0.5) K/uL Baso # (Auto) 0.02 (0-0.2) K/uL PT Cancelled INR Cancelled APTT Cancelled PTT Ratio Cancelled Sodium 135 L (136-145) mmol/L Potassium (3.5-5.1) mmol/L Chloride 105 (98-107) mmol/L Carbon Dioxide 25 (21-32) mmol/L Anion Gap 6.0 (3-11) BUN 10 (7-18) mg/dl Creatinine 1.06 (0.6-1.2) mg/dl Est Cr Clr Drug Dosing Not Reportable Est GFR ( Amer) 68.5 Est GFR (Non-Af Amer) 59.1 BUN/Creatinine Ratio 9.6 L (10-20) Glucose 326 H* (70-99) mg/dl Calcium 8.7 (8.5-10.1) mg/dl Total Bilirubin 0.6 (0.2-1) mg/dl AST (15-37) U/L ALT 27 (12-78) U/L Alkaline Phosphatase 128 H (45-117) U/L Total Protein 7.0 (6.4-8.2) gm/dl Albumin 2.7 L (3.4-5.0) gm/dl Globulin 4.3 H (2.5-4.0) gm/dl Albumin/Globulin Ratio 0.6 L (0.9-2) Beta-Hydroxybutyric Acd (0.2-2.81) mg/dl ECG Data Attestation: I personally reviewed and interpreted this ECG as follows: Indication: + abdominal pain Rate (beats per minute): 70 Rhythm: + sinus rhythm ECG Intervals/blocks: + First degree AV block and + Normal QT-c ECG ST segments: no ST elevation ECG Findings: no PVCs Blood Pressure Blood Pressure Findings: Normal blood pressure Blood Pressure Disposition: did not require urgent referral MDM Narrative Continuous Cardiac Monitoring: An order was placed for continuous cardiac monitoring. The monitor shows a rate of 70 with sinus rhythm. This is a 53-year-old female who presents to the ED with a chief complaint of passing blood in her stool. The patient states that her symptoms started about 2 hours ago. She states that she passed blood 3 times with a bowel movement. The patient has some chronic pain. She otherwise has no additional or new complaints. Her initial vital signs revealed a tachycardia with a heart rate of 135 in triage, however when I saw her 26 minutes later in the bed, her heart rate was 68. She did not receive any treatment in that time. The patient physical exam was unremarkable for any acute abnormalities. She did have a rectal exam with guaiac testing of the stool. Her stool is loose and soft and maroon-colored and guaiac positive. A twelve-lead EKG shows a sinus rhythm at a rate of 70 with a first-degree AV block and no acute injury. The patient's hemoglobin today is 9.6. This is actually up from several days ago when it was 8.9. Overall the patient has had a gradual decline in her hemoglobin over the past 6 months where it was as high as 11. Because of the acutely bloody stools and 3 episodes with maroon-colored guaiac positive stool, the patient will be observed overnight for further evaluation of GI bleeding by the hospitalist. Impression & Plan Acute GI bleeding, Hyperglycemia Discharge Plan Visit Data Chief Complaint: GI Assessment Stated Complaint: BLOODY STOOL, PAIN IN BOTH FEET ED Provider: Hany Crespo Discharge Problem: Acute GI bleeding, Hyperglycemia Forms Stand Alone Forms: My [facility] Prescriptions Prescriptions: No Action levothyroxine 125 mcg Capsule 125 mcg PO QAM RF: 0 lactulose 20 gram/30 mL solution 30 gm PO TID Qty: 3000 RF: 0 pantoprazole 40 mg tablet,delayed release (DR/EC) 40 mg PO DAILY RF: 0 Trulicity 0.75 mg/0.5 mL pen injector 0.75 mg SUBCUT WK RF: 0 potassium chloride 10 mEq capsule, extended release 10 meq PO BID RF: 0 prochlorperazine maleate [Compazine] 5 mg tablet 5 mg PO TID PRN (Reason: Nausea) RF: 0 spironolactone [Aldactone] 25 mg tablet 25 mg PO QAM RF: 0 metoclopramide HCl 5 mg Tablet 5 mg PO AC RF: 0 ranitidine HCl [Zantac] 150 mg tablet 150 mg PO BID RF: 0 dicyclomine 10 mg Capsule 10 mg PO QID PRN (Reason: ABD PAIN) RF: 0 insulin aspart U-100 [Novolog Flexpen U-100 Insulin] 100 unit/mL (3 mL) insu sweetie pen 0 unit SUBCUT TIDM RF: 0 duloxetine [Cymbalta] 60 mg capsule,delayed release(DR/EC) 60 mg PO BID RF: 0 Xarelto 20 mg tablet 20 mg PO QPM RF: 0 ProAir RespiClick 90 mcg/actuation Aerosol Powdr Breath Activated 2 inh INHALATION Q4 PRN (Reason: Shortness Of Breath) RF: 0 furosemide [Lasix] 20 mg Tablet 60 mg PO TID RF: 0 Basaglar KwikPen U-100 Insulin 100 unit/mL (3 mL) insulin pen 70 unit SUBCUT BID Qty: 0 RF: 0 carvedilol 12.5 mg Tablet 12.5 mg PO QAM RF: 0 nortriptyline 25 mg Capsule 25 mg PO HS RF: 0 baclofen 10 mg Tablet 10 mg PO BID RF: 0 ibuprofen [Advil] 200 mg Tablet 600 mg PO Q6H PRN (Reason: Pain) RF: 0 Referrals Referrals: Dewey Mcfadden, [Primary Care Provider] - The scribe's documentation has been prepared under my direction and personally reviewed by me in its entirety. I confirm that the note above accurately reflects all work, treatment, procedures, and medical decision making performed by me.
[2019-07-03 23:04] LABS: Basophils # (auto) 0.02 K/uL (0-0.2); Basophils % (auto) 0.4 %; Eosinophils # (auto) 0.14 K/uL (0-0.5); Eosinophils % (auto) 3.1 %; Hematocrit (blood only) 30.9 % (37-47); Hemoglobin 9.6 g/dL (12.0-16.0); Immature Granulocytes # (auto) 0.01 K/uL (0.00-0.02); Immature Granulocytes % (auto) 0.2 %; Lymphocytes # (auto) 1.39 K/uL (1.2-3.4); Mean Corpuscular Hemoglobin 26.4 pg (25-34); Mean Corpuscular Hgb Conc 31.1 g/dL (32-36); Mean Corpuscular Volume 85.1 fL (80-100); Mean Platelet Volume 10.3 fL (7.4-10.4); Monocytes # (auto) 0.49 K/uL (0.11-0.59); Monocytes % (auto) 10.9 %; Neutrophils # (auto) 2.44 K/uL (1.4-6.5); Neutrophils % (auto) 54.4 %; Platelet Count 130 K/uL (130-400); RDW Coefficient of Variation 16.1 % (11.5-14.5); RDW Standard Deviation 49.6 fL (36.4-46.3); Red Blood Count 3.63 M/uL (4.2-5.4); White Blood Count 4.49 K/uL (4.8-10.8)
[2019-07-03 23:30] LABS: Alanine Aminotransferase 27 U/L (12-78); Albumin Globulin Ratio 0.6 (0.9-2); Albumin Level 2.7 gm/dl (3.4-5.0); Alkaline Phosphatase 128 U/L (45-117); BUN Creatinine Ratio 9.6 (10-20); Bilirubin,Total 0.6 mg/dl (0.2-1); Blood Urea Nitrogen 10 mg/dl (7-18); Calcium 8.7 mg/dl (8.5-10.1); Carbon Dioxide 25 mmol/L (21-32); Chloride 105 mmol/L (98-107); Est GFR (African American) 68.5; Est GFR (Non-African American) 59.1; Globulin 4.3 gm/dl (2.5-4.0); Glucose 326 mg/dl (70-99); Sodium 135 mmol/L (136-145)
[2019-07-04 00:08] LABS: Potassium 3.7 mmol/L (3.5-5.1)
[2019-07-04 00:10] LABS: INR 1.3 (0.9-1.1); Partial Thromboplastin Ratio 1.2; Partial Thromboplastin Time 34.6 Seconds (21.0-31.0); Prothrombin Time 13.7 Seconds (9.0-12.0)
[2019-07-04 00:15] LABS: Beta-Hydroxybutyrate 0.7 mg/dl (0.2-2.81)
[2019-07-04] MEDS ORDERED: ONDANSETRON INJ 2 MG/ML 2 ML VIAL IV PRN (01:35)
[2019-07-04] MEDS ORDERED: NITROGLYCERIN SL 0.4 MG/TAB TAB SL PRN (01:35)
[2019-07-04] MEDS ORDERED: PIPERACILL/TAZOBAC CONSULT ACTIVE PRN (01:35)
[2019-07-04] MEDS ORDERED: PIPERACILLIN/TAZOBACTAM 4.5 GM in DEXTROSE 5% 100 ML IV ONE (01:45)
[2019-07-04] MEDS ORDERED: ALBUTEROL HFA 8 GM INHALER INH PRN (01:48)
[2019-07-04] MEDS ORDERED: DEXTROSE 50% 50 ML SYRINGE IV PRN (02:00)
[2019-07-04] MEDS ORDERED: CARBOHYDRATES FOR HYPOGLYCEMIA PO PRN (02:00)
[2019-07-04] MEDS ORDERED: GLUCOSE 10 TABS/TUBE PO PRN (02:00)
[2019-07-04] MEDS ORDERED: GLUCOSE 40% GEL 15 GM TUBE PO PRN (02:00)
[2019-07-04] MEDS ORDERED: GLUCAGON FOR INJ 1 MG VIAL IM PRN (02:00)
--- NOTE | 2019-07-04 02:09 | History and Physical Report ---
DATE OF ADMISSION: 07/04/2019 CHIEF COMPLAINT: Blood per rectum. HISTORY OF PRESENT ILLNESS: This is a 53-year-old female with past medical history significant for morbid obesity; sleep apnea, noncompliant with BiPAP, says she had surgery for sleep apnea and since then she is not requiring it; history of diabetes; hypothyroidism; diabetic polyneuropathy; hyperlipidemia; history of pulmonary embolism; history of DVT; history of atrial fibrillation, on Xarelto; hypertension; recurrent idiopathic thrombophlebitis; history of MEEK liver cirrhosis; history of gastroesophageal reflux disease with esophagitis; history of spinal stenosis; history of prescribed drug dependence in the past; history of migraines; bipolar disorder; history of tobacco use disorder; history of medical marijuana use in the past; history of recurrent lower extremity cellulitis and abdominal surgeries in the past; history of small-bowel obstruction. The patient lives at home with her caregiver Mr. Garza who helps her. The patient comes here because of lower abdominal discomfort and she had 3 episodes of blood per rectum. She says the blood is not bright red or not light. She is nauseous, but no vomiting. She is on Xarelto. She has no other complaints. In the ER, Hemoccult was positive and stools were maroon colored. Complains of her usual chronic pain and requests some pain medications. Denies any headache, no blurred visions, no earache, no runny nose, no sore throat, no cough, no dysphagia, no chest pain. She is usually short of breath on exertion, has some dry cough. Chronic lower extremity edema present. She was on Lasix 60 mg p.o. t.i.d., but no longer taking it because she lost so much weight on it, she is only using it as needed, and she says lactulose was causing a lot of diarrhea, so she wanted to hold it for now. She is resting comfortably and hemodynamically stable. ALLERGIES: VANCOMYCIN, ACETAMINOPHEN, CODEINE, METHYLPARABEN, OXYMORPHONE, PREGABALIN, GABAPENTIN, SULFA ANTIBIOTICS, PAPER TAPE. PAST MEDICAL HISTORY: As mentioned above. PAST SURGICAL HISTORY: Right knee arthroplasty, colonoscopy with biopsy, EGDs, abdominal hernia repair, appendectomy, cholecystectomy, sinus surgery, total abdominal hysterectomy with removal of the tubes. MEDICATIONS: The patient is on ferrous sulfate 325 mg p.o. daily with breakfast, insulin sliding scale 10 units 3 times daily, levothyroxine 150 mcg daily, albuterol nebulization every 4 hours p.r.n., nicotine, insulin Glargine 70 units b.i.d., nortriptyline 25 mg p.o. at bedtime, Trulicity 1.5 mg under the skin once a week, Aldactone 25 mg p.o. daily, Zantac 150 mg p.o. b.i.d., Coreg 12.5 mg p.o. b.i.d., potassium chloride 10 mEq p.o. b.i.d., Lasix 60 mg p.o. t.i.d., Cymbalta 60 mg p.o. b.i.d., Remeron 50 mg p.o. at bedtime, Compazine 5 mg p.o. t.i.d. p.r.n., Reglan 5 mg p.o. a.c., Lipitor 20 mg p.o. daily with dinner. FAMILY HISTORY: Significant for father had liver cancer, brother had cirrhosis, alcoholic; mother has heart disorder, lung disorder; brother from renal failure and had cirrhosis. SOCIAL HISTORY: , currently lives with a caregiver. Quit smoking 10 days ago. She is vaping tobacco. No alcohol use, no drug use. REVIEW OF SYSTEMS: As per HPI, rest of the review of systems negative. PHYSICAL EXAMINATION: GENERAL: The patient is morbidly obese, not in acute distress. VITAL SIGNS: Temperature 36.4, pulse 71, respiratory rate 18, blood pressure 124/66, oxygen 100% on room air. HEENT: No pallor, no icterus. Pupils equal, round, and reactive to light. NECK: No JVD, no neck mass, no carotid bruit. CARDIOVASCULAR: S1, S2 heard, regular rate and rhythm, no murmur, no gallop. RESPIRATORY SYSTEM: Normal AP diameter. No accessory muscle use. No wheezing, no crackles. ABDOMEN: Soft, bowel sounds present. Nontender. No rash. No pancolitis or rash seen. CENTRAL NERVOUS SYSTEM: Cranial nerves II-XII grossly intact, nonfocal. EXTREMITIES: Chronic lower extremity edema present, no erythema seen. LABORATORY DATA: WBC 4.4, hemoglobin 10.6, hematocrit 30.9, platelets 130. PT 13.7, INR 1.3, APTT 34.6. Sodium 135, potassium 3.7, chloride 105, bicarbonate 25, BUN 10, creatinine 1.06, serum glucose 326, calcium 8.7, total bilirubin 0.6, AST 18, ALT 27, alkaline phosphatase 128, beta hydroxybutyric acid 0.7. EKG: Sinus rhythm with first-degree AV block at a rate of 69, no significant change was found. ASSESSMENT AND PLAN: This is a 53-year-old female who presents with blood per rectum. 1. Blood per rectum. Hemoccult was positive with maroon stools. The patient is on Xarelto, which we will hold. Hemoglobin is stable at 9.6. We will follow H and H. We will keep her n.p.o. except meds. Blood consent obtained. There was plan for colonoscopy, but it was not done because of her high sugars. We will consult GI in the a.m. for further recommendations. We will place on IV Pepcid b.i.d. 2. History of deep venous thrombosis, pulmonary embolism, and atrial fibrillation. Rate is under control with Coreg, holding the Xarelto . 3. Hx of hypothyroidism. Continue Synthroid. 4. Gastroesophageal reflux disease, on PPI. 5. MEEK liver cirrhosis. She says she is taking Lasix only as needed, but she is taking spironolactone daily and she is taking lactulose which is causing diarrhea, wants to hold it for now. We will hold lactulose and follow ammonia level in a.m. Restart as soon as possible. 6. Hypertension. Continue Coreg, diuretics, and monitor the blood pressure. 7. Depression. Continue her home medication of Cymbalta, nortriptyline. 8. History of obstructive sleep apnea, noncomplaint with BiPAP. She is not requiring oxygen in the nighttime. 9. Morbid obesity, needs counseling. 10. Bipolar disorder. Continue Cymbalta. 11. Chronic diastolic heart failure, on diuretics. Currently getting gentle fluids. Monitor for any volume overload. 12. Deep venous thrombosis prophylaxis. We will place Xarelto on hold. Placed on sequential compression devices. DISPOSITION: Admit to tele floor. Level 1 full code. PT and OT prior to discharge. Social service to help with discharge planning. [facility]
[2019-07-04] MEDS: FAMOTIDINE 20 MG in SYRINGE 3 ML IV SCH ×2 (02:11→08:07)
[2019-07-04] MEDS: SODIUM CHLORIDE 0.9% 1000ML 1,000 ML IV SCH ×2 (02:12→21:31)
[2019-07-04] MEDS: HYDROmorphone INJ 0.5 MG/0.5 ML SYR IV PRN ×2 (02:12→08:23)
[2019-07-04] MEDS ORDERED: PIPERACILLIN/TAZOBACTAM 4.5 GM in DEXTROSE 5% 100 ML IV SCH (06:00)
[2019-07-04 06:03] LABS: Basophils # (auto) 0.01 K/uL (0-0.2); Basophils % (auto) 0.2 %; Eosinophils # (auto) 0.24 K/uL (0-0.5); Eosinophils % (auto) 4.6 %; Hematocrit (blood only) 29.2 % (37-47); Hemoglobin 8.9 g/dL (12.0-16.0); Immature Granulocytes # (auto) 0.01 K/uL (0.00-0.02); Immature Granulocytes % (auto) 0.2 %; Lymphocytes # (auto) 1.73 K/uL (1.2-3.4); Lymphocytes % (auto) 33.4 %; Mean Corpuscular Hemoglobin 25.9 pg (25-34); Mean Corpuscular Hgb Conc 30.5 g/dL (32-36); Mean Corpuscular Volume 84.9 fL (80-100); Mean Platelet Volume 9.4 fL (7.4-10.4); Monocytes # (auto) 0.67 K/uL (0.11-0.59); Monocytes % (auto) 12.9 %; Neutrophils # (auto) 2.52 K/uL (1.4-6.5); Neutrophils % (auto) 48.7 %; Platelet Count 129 K/uL (130-400); RDW Coefficient of Variation 16.2 % (11.5-14.5); RDW Standard Deviation 49.4 fL (36.4-46.3); Red Blood Count 3.44 M/uL (4.2-5.4); White Blood Count 5.18 K/uL (4.8-10.8)
[2019-07-04] MEDS: LEVOTHYROXINE SODIUM 150 MCG TABLET PO SCH (06:21)
[2019-07-04] MEDS: INSULIN ASPART 100 UNITS/ML 3 ML PEN SC SCH ×4 (06:22→21:33)
[2019-07-04 06:28] LABS: Estimated Average Glucose 272 mg/dl; Hemoglobin A1C 11.1 % (4.5-5.6)
[2019-07-04 06:38] LABS: BUN Creatinine Ratio 11.5 (10-20); Calcium 8.5 mg/dl (8.5-10.1); Creatinine Clr Calc Pharmacy 112.9 ml/min; Est GFR (African American) 84.6; Magnesium 1.8 mg/dl (1.8-2.4); Potassium 3.7 mmol/L (3.5-5.1)
[2019-07-04] MEDS: METOCLOPRAMIDE HCL 5 MG TABLET PO SCH ×3 (08:08→18:24)
[2019-07-04] MEDS: PROCHLORPERAZINE MALEATE 5 MG TAB PO PRN (08:08)
[2019-07-04] MEDS: BACLOFEN 10 MG TAB PO SCH ×2 (08:09→21:38)
[2019-07-04] MEDS: DICYCLOMINE HCL 10 MG CAP PO PRN (08:09)
[2019-07-04] MEDS: carvediloL 12.5 MG TAB PO SCH ×2 (08:09→20:40)
[2019-07-04] MEDS: SPIRONOLACTONE 25 MG TAB PO SCH (08:09)
[2019-07-04] MEDS: POTASSIUM CHLORIDE 10 MEQ TABCR PO SCH ×2 (08:09→20:41)
[2019-07-04] MEDS: DULOXETINE HCL 60 MG CAP PO SCH ×2 (08:09→20:41)
[2019-07-04] MEDS: INSULIN GLARGINE SOLOSTAR 100 UNITS/ML 3 ML PEN SC SCH ×2 (08:10→21:37)
--- NOTE | 2019-07-04 08:58 | Gastrointestinal Consultation ---
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 H/H 8.9, Hgb last October 03. Hx of gastric ulcer noted on previous EGD back in 2016, no known hx of esophageal varices. She had been on Xarelto for hx of DVTs and taking Advil 4 tabs q4-6hrs for neuropathic pain. DDx: PUD, gastritis, bleeding from portal HTN - PPI bolus and gtt - NPO for EGD eval by Dr. Morgan today - Hold Xarelto for now - Monitor H/H and transfuse prn - Need close f/u after hospitalization for continued management of cirrhosis - Should be on Lactulose 20g BID (titrate for goal BM 3-5x a day) - Need HCC screening q6 months - Need diuretics adjusted depending on edema (on both Lasix and Spironolactone currently) and monitoring of renal function, electrolytes - Overdue for repeat screening colonoscopy (last done in 2012 w findings of adenomatous polyps) Supervising Physician Co-Signing Physician Notes I performed a history and physical examination of the patient today, including specifically on physical exam - soft abdomen. I have discussed the patient's management with the advanced practitioner. Please refer to the nurse practitioner's note for the documented findings and plan of care. EGD today. History of Present Illness Reason for Consultation: GI bleed Requesting Physician: Dr. Marjan Saldaña Attending Physician: Dr. Hilton Morgan History of Present Illness Pt is a 53 y/o female seen today for GI bleeding. She has hx of NAFLD cirrhosis, baseline MELD 7. She presented to ED 2 days ago w confusion, brought by significant other (Tae). Was discharged from ED w Lactulose. Had several episodes of diarrhea after ingestion of Lactulose and yesterday started to notice blood in stools. She denies is being black or tarry, described the color as not being "too dark or too light". Hemoccult in ED was positive. H/H 8.01/21. BUN/Cr 10/0.89. She takes Xarelto for hx of DVTs. She had been taking Advil 4 tabs every 4-6 hrs for neuropathy pain. Hx of gastric ulcer noted in EGD back in 2017, bx w/o Hpylori or dysplasia. No known hx of esophageal varices. She smokes tobacco occasionally. Denies ETOH, or illicit drugs. Allergies Allergy/AdvReac Type Severity Reaction Status Date / Time Iodinated Contrast Media Allergy Intermediate hives-PT Verified 07/04/19 13:46 DENIES SEE NOTE adhesive Allergy Mild RED RASH Verified 07/04/19 13:46 CAUSED BY PAPER TAPE vancomycin AdvReac Severe renal Verified 07/04/19 13:46 failure, required dialysis x 3 MONTHS acetaminophen AdvReac Intermediate Liver Verified 07/04/19 13:46 problems. alprazolam AdvReac Intermediate MAKES Verified 07/04/19 13:46 LOOPY,DO AND SAY SILLY THINGS codeine AdvReac Intermediate UPSET Verified 07/04/19 13:46 STOMACH haloperidol AdvReac Intermediate nervous Verified 07/04/19 13:46 and anxious metformin AdvReac Intermediate HANDS FEET Verified 07/04/19 13:46 FACE NUMB methylparaben AdvReac Intermediate FLUID Verified 07/04/19 13:46 RETENTION morphine AdvReac Intermediate SWELLING Verified 07/04/19 13:46 LEGS AND FEET oxymorphone AdvReac Intermediate FLUID Verified 07/04/19 13:46 RETENTION pregabalin AdvReac Intermediate Aphasia/Speech Verified 07/04/19 13:46 impairments gabapentin AdvReac Mild Aphasia/Speech Verified 07/04/19 13:46 impairments Sulfa (Sulfonamide AdvReac Mild GI SYMPTOMS Verified 07/04/19 13:46 Antibiotics) Home Medications Home Medications Medication Instructions Recorded Confirmed Type ProAir RespiClick 2 inh INHALATION Q4 PRN 03/12/19 07/03/19 History Trulicity 0.75 mg SUBCUT WK 03/12/19 07/03/19 History Xarelto 20 mg PO QPM 03/12/19 07/03/19 History dicyclomine 10 mg PO QID PRN 03/12/19 07/03/19 History duloxetine [Cymbalta] 60 mg PO BID 03/12/19 07/03/19 History furosemide [Lasix] 60 mg PO TID 03/12/19 07/03/19 History insulin aspart U-100 [Novolog 0 unit SUBCUT TIDM 03/12/19 07/03/19 History Flexpen U-100 Insulin] metoclopramide HCl 5 mg PO AC 03/12/19 07/03/19 History potassium chloride 10 meq PO BID 03/12/19 07/03/19 History prochlorperazine maleate 5 mg PO TID PRN 03/12/19 07/03/19 History [Compazine] ranitidine HCl [Zantac] 150 mg PO BID 03/12/19 07/03/19 History spironolactone [Aldactone] 25 mg PO QAM 03/12/19 07/03/19 History Basaglar KwikPen U-100 Insulin 70 unit SUBCUT BID #0 ml 03/15/19 07/03/19 Rx baclofen 10 mg PO BID 03/21/19 07/03/19 History carvedilol 12.5 mg PO BID 03/21/19 07/04/19 History nortriptyline 25 mg PO HS 03/21/19 07/03/19 History ibuprofen [Advil] 600 mg PO Q6H PRN 06/28/19 07/03/19 History lactulose 30 gm PO TID #3000 ml 07/01/19 07/03/19 Rx pantoprazole 40 mg PO DAILY 07/03/19 07/03/19 History ferrous sulfate 325 mg PO DAILY 07/04/19 07/04/19 History levothyroxine 150 mcg PO DAILY 07/04/19 07/04/19 History Patient History Medical History Anemia (Acute) HX OF AND NO PROBLEMS Atrial fibrillation by electrocardiogram (Acute) DX: 2013 TAKES XARELTO AND FOLLOW WITH MEDICAL DOCTOR Chronic low back pain (Acute) Cirrhosis MEDICAL 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) RIGHT AND LEFT LEG AND THEN MOVED LUNG - 2001 Diabetes Diabetic neuropathy (Chronic 01/04/11) Gastritis (Acute) GI bleed (Acute) HX OF AND NO CURRENT PROBLEMS Hypothyroidism (Acute) Kidney stone HX OF AND HAD LITHOTRIPSY Obesity (Acute) RIMA (obstructive sleep apnea) HX OF AND NO CURRENT PROBLEM Surgical History Hx of lithotripsy Hx of ventral hernia repair Family History Other Family history non-contributory Social History Preferred Language: Icelandic Communication Ability: Effective 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: No Beliefs That Will Affect Care: None Current Living Situation: Other Current Living Situation Comment: friend/caregiver herbert vaughan current occupational status: disabled Feels Safe at Home: Yes Smoking Status: Former smoker Tobacco Type: cigarettes and e-cigarettes ; Cigarettes Per Day: 1/2 PPD ; Do You Dip or Chew Tobacco: No ; Smoking End Date: 06/19/19 ; Second Hand Exposure: No ; Tobacco Cessation Education Requested by Patient: No (pt using vape pen) Hx Alcohol Use: No Hx Substance Use: No Review of Systems Review of Systems: All systems reviewed & are unremarkable except as noted in HPI & below Physical Exam Constitutional: + morbidly obese, well groomed, cooperative and comfortable Eyes: PERRL, conjunctivae normal, anicteric sclerae ENMT: external ear and nose normal, oropharynx normal Respiratory: normal respiratory effort, lungs clear to auscultation Cardiovascular: RRR, no murmur, no edema Gastrointestinal (Abdomen): normal bowel sounds, soft, nontender, no hepatosplenomegaly Skin: no rashes, warm and dry no jaundice Neurologic: Motor/Sensory: no asterixis Psychiatric: A+Ox3, euthymic affect Lymphatic: no lymphedema Results & Data ([facility]) Vital Signs (Past 12 Hours) Vital Signs Temp Pulse Pulse Pulse Resp BP BP 07/04/19 07:27 36.5 C 56 L 18 185/94 H 07/04/19 05:02 36.6 C 62 20 128/70 07/04/19 01:35 64 07/04/19 00:49 71 18 124/66 07/03/19 23:28 66 14 116/61 07/03/19 22:47 68 18 07/03/19 22:21 36.4 C L 135 H 18 131/78 Pulse Ox 07/04/19 07:27 94 07/04/19 05:02 96 07/04/19 01:35 07/04/19 00:49 100 07/03/19 23:28 100 07/03/19 22:47 99 07/03/19 22:21 98 (1) Anemia Anemia type: unspecified type Qualified Code(s): D64.9 - Anemia, unspecified
[2019-07-04] MEDS ORDERED: FUROSEMIDE 20 MG TAB PO SCH (09:00)
[2019-07-04] MEDS ORDERED: PANTOprazole 40 MG TAB PO SCH (09:00)
[2019-07-04] MEDS ORDERED: PANTOprazole 80 MG in DEXTROSE 5% 100 ML IV ONE (09:00)
[2019-07-04] MEDS ORDERED: HydrALAZINE HCL 20 MG/ML VIAL IV PRN (09:20)
[2019-07-04] MEDS: PANTOprazole 40 MG in DEXTROSE 5% 100 ML IV SCH ×3 (09:56→21:04)
[2019-07-04 11:16] LABS: Hematocrit (blood only) 30.2 % (37-47); Hemoglobin 9.3 g/dL (12.0-16.0)
[2019-07-04] MEDS ORDERED: PROPOFOL IV EMULSION 10 MG/ML 20 ML VIAL IV ONE (13:48)
[2019-07-04] MEDS ORDERED: KETAMINE HCL INJ 50 MG/ML 10 ML VIAL ONE (13:48)
[2019-07-04] MEDS ORDERED: LIDOCAINE HCL 2% 2 ML VIAL/AMP(20MG/ML) INFIL ONE (13:48)
--- NOTE | 2019-07-04 13:57 | Anesthesiology Consultation ---
Date of Service July 04, 2019 Assessment & Plan (1) Encounter for pre-operative examination: Chart Review Chart Review: Acceptable Risk for Surgery and Patient NOT seen in Pre Admission Testing Consults Requested none ASA ASA4 Proposed Anesthesia Anesthesia Type: MAC Risk / Benefits Reviewed With: PT / POA / Parent / Guardian, Accepts Plan and Informed Consent Obtained History Surgery Operation Date: 07/04/19 16:00 Proposed Procedures p Esophagogastroduodenoscopy Dr Morgan - Hilton Morgan MD Height/Weight Height: 5 ft 3 in Weight: 171.7 kg Allergies Allergy/AdvReac Type Severity Reaction Status Date / Time Iodinated Contrast Media Allergy Intermediate hives-PT Verified 07/04/19 13:46 DENIES SEE NOTE adhesive Allergy Mild RED RASH Verified 07/04/19 13:46 CAUSED BY PAPER TAPE vancomycin AdvReac Severe renal Verified 07/04/19 13:46 failure, required dialysis x 3 MONTHS acetaminophen AdvReac Intermediate Liver Verified 07/04/19 13:46 problems. alprazolam AdvReac Intermediate MAKES Verified 07/04/19 13:46 LOOPY,DO AND SAY SILLY THINGS codeine AdvReac Intermediate UPSET Verified 07/04/19 13:46 STOMACH haloperidol AdvReac Intermediate nervous Verified 07/04/19 13:46 and anxious metformin AdvReac Intermediate HANDS FEET Verified 07/04/19 13:46 FACE NUMB methylparaben AdvReac Intermediate FLUID Verified 07/04/19 13:46 RETENTION morphine AdvReac Intermediate SWELLING Verified 07/04/19 13:46 LEGS AND FEET oxymorphone AdvReac Intermediate FLUID Verified 07/04/19 13:46 RETENTION pregabalin AdvReac Intermediate Aphasia/Speech Verified 07/04/19 13:46 impairments gabapentin AdvReac Mild Aphasia/Speech Verified 07/04/19 13:46 impairments Sulfa (Sulfonamide AdvReac Mild GI SYMPTOMS Verified 07/04/19 13:46 Antibiotics) Medications Home Medications Medication Instructions Recorded Confirmed Last Taken ProAir RespiClick 2 inh INHALATION Q4 PRN 03/12/19 07/03/19 06/28/19 Trulicity 0.75 mg SUBCUT WK 03/12/19 07/03/19 06/24/19 Xarelto 20 mg PO QPM 03/12/19 07/03/19 06/27/19 dicyclomine 10 mg PO QID PRN 03/12/19 07/03/19 Unknown duloxetine [Cymbalta] 60 mg PO BID 03/12/19 07/03/19 06/27/19 furosemide [Lasix] 60 mg PO TID 03/12/19 07/03/19 06/27/19 120 mg insulin aspart U-100 [Novolog 0 unit SUBCUT TIDM 03/12/19 07/03/19 06/28/19 Flexpen U-100 Insulin] 10 units metoclopramide HCl 5 mg PO AC 03/12/19 07/03/19 06/27/19 potassium chloride 10 meq PO BID 03/12/19 07/03/19 06/27/19 prochlorperazine maleate 5 mg PO TID PRN 03/12/19 07/03/19 06/27/19 [Compazine] ranitidine HCl [Zantac] 150 mg PO BID 03/12/19 07/03/19 06/27/19 spironolactone [Aldactone] 25 mg PO QAM 03/12/19 07/03/19 06/27/19 Basaglar KwikPen U-100 Insulin 70 unit SUBCUT BID #0 ml 03/15/19 07/03/19 06/27/19 baclofen 10 mg PO BID 03/21/19 07/03/19 06/27/19 carvedilol 12.5 mg PO BID 03/21/19 07/04/19 06/27/19 nortriptyline 25 mg PO HS 03/21/19 07/03/19 06/27/19 ibuprofen [Advil] 600 mg PO Q6H PRN 06/28/19 07/03/19 06/27/19 600 mg lactulose 30 gm PO TID #3000 ml 07/01/19 07/03/19 Unknown pantoprazole 40 mg PO DAILY 07/03/19 07/03/19 Unknown ferrous sulfate 325 mg PO DAILY 07/04/19 07/04/19 Unknown levothyroxine 150 mcg PO DAILY 07/04/19 07/04/19 Unknown Active Medications Generic Name Dose Route Start Last Admin Trade Name Freq PRN Reason Stop Dose Admin Baclofen 10 mg 07/04/19 09:00 07/04/19 08:09 Lioresal PO 08/03/19 08:59 10 mg BID PAUL Administration Carvedilol 12.5 mg 07/04/19 09:00 07/04/19 08:09 Coreg PO 08/03/19 08:59 12.5 mg BID PAUL Administration Dicyclomine HCl 10 mg 07/04/19 01:35 07/04/19 08:09 Bentyl PO 08/03/19 01:34 10 mg QID PRN Administration ABD PAIN Duloxetine HCl 60 mg 07/04/19 09:00 07/04/19 08:09 Cymbalta PO 08/03/19 08:59 60 mg BID PAUL Administration Hydromorphone HCl 0.5 mg 07/04/19 01:35 07/04/19 08:23 Dilaudid IV 07/18/19 01:34 0.5 mg Q6H PRN Administration Pain Sodium Chloride 1,000 mls @ 50 mls/hr 07/04/19 01:35 07/04/19 02:12 Nss 1000ml IV 08/03/19 01:34 50 mls/hr .Q20H PAUL Administration Pantoprazole Sodium 40 mg/ 100 mls @ 20 mls/hr 07/04/19 09:15 07/04/19 09:56 Dextrose IV 08/03/19 09:14 8 mg/hr Q5H PAUL 20 mls/hr Administration 8 MG/HR Insulin Aspart 0 units 07/04/19 06:00 07/04/19 12:14 Novolog Flexpen SC 08/03/19 05:59 1 units Q6 PAUL Administration Insulin Glargine 35 units 07/04/19 09:00 07/04/19 08:10 Lantus Solostar Pen SC 08/03/19 08:59 35 units BID PAUL Administration Levothyroxine Sodium 150 mcg 07/04/19 06:30 07/04/19 06:21 Synthroid PO 08/03/19 06:29 150 mcg DAILYBB PAUL Administration Metoclopramide HCl 5 mg 07/04/19 07:30 07/04/19 12:18 Reglan PO 08/03/19 07:29 5 mg AC PAUL Administration Potassium Chloride 10 meq 07/04/19 09:00 07/04/19 08:09 Klor-Con M10 PO 08/03/19 08:59 10 meq BID PAUL Administration Prochlorperazine 5 mg 07/04/19 01:35 07/04/19 08:08 Compazine PO 08/03/19 01:34 5 mg TID PRN Administration Nausea Spironolactone 25 mg 07/04/19 09:00 07/04/19 08:09 Aldactone PO 08/03/19 08:59 25 mg QAM PAUL Administration NPO Date Last Intake of Fluids: 07/03/19 Time Last Intake of Fluids: 23:00 Date Last Intake of Solids: 07/03/19 Time Last Intake of Solids: 23:00 Past Medical History Medical History Anemia (Acute) HX OF AND NO PROBLEMS Atrial fibrillation by electrocardiogram (Acute) DX: 2013 TAKES XARELTO AND FOLLOW WITH MEDICAL DOCTOR Chronic low back pain (Acute) Cirrhosis MEDICAL 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) RIGHT AND LEFT LEG AND THEN MOVED LUNG - 2001 Diabetes Diabetic neuropathy (Chronic 01/04/11) Gastritis (Acute) GI bleed (Acute) HX OF AND NO CURRENT PROBLEMS Hypothyroidism (Acute) Kidney stone HX OF AND HAD LITHOTRIPSY Obesity (Acute) RIMA (obstructive sleep apnea) HX OF AND NO CURRENT PROBLEM Exercise / Class Metabolic Activity II 4-5 Yardwork/Stairs/Walk up hill Past Family History Family History Other Family history non-contributory Past Surgical History Surgical History Hx of lithotripsy Hx of ventral hernia repair Past Anesthesia History No Hx of Anesthesia Complications and No Family Hx of Anesthesia Complications History of PONV No Hx of PONV and No Hx of Motion Sickness Social History Smoking Status: Former smoker tobacco type: cigarettes and e-cigarettes Smoking cigarettes per day: 1/2 PPD Do You Dip or Chew Tobacco: No Smoking End Date: 06/19/19 Hx Alcohol Use: No Hx Substance Use: No substance use type: does not use Physical Exam Vital Signs Last Vital Signs Temp 36.1 C L 07/04/19 13:48 Pulse 55 L 07/04/19 13:48 Resp 16 07/04/19 13:48 BP 146/83 H 07/04/19 13:48 Pulse Ox 97 07/04/19 13:48 Constitutional + morbidly obese ENMT Mouth: no dentition abnormality Thyromental Distance: > or= 3.5 Finger Breadths Mallampati Class: II Neck normal visual inspection Respiratory normal respiratory effort Auscultation: lungs clear to auscultation bilaterally Cardiovascular Rate/Rhythm: regular rate and regular rhythm Psychiatric Orientation: alert Testing Laboratory Results 07/04/19 11:05 07/04/19 05:28 PT 13.7 Seconds (9.0-12.0) H 07/03/19 23:37 INR 1.3 (0.9-1.1) H 07/03/19 23:37 APTT 34.6 Seconds (21.0-31.0) H 07/03/19 23:37 Hemoglobin A1c 11.1 % (4.5-5.6) H 07/04/19 05:28 Blood Type A Positive 07/03/19 22:48 Antibody Screen NEGATIVE 07/03/19 22:48 07/04/19 07/04/19 11:38 06:19 POC Glucose 167 H 144 H
--- NOTE | 2019-07-04 14:26 | Anesthesiology Progress Note ---
Date of Service July 04, 2019 Anesthesia Post Procedure Vital Signs Vital Signs: Temp Pulse Pulse Pulse Resp BP BP 07/04/19 14:15 57 L 18 171/95 H 07/04/19 13:48 36.1 C L 55 L 16 146/83 H 07/04/19 11:36 36.5 C 63 20 142/79 H 07/04/19 09:26 60 07/04/19 07:27 36.5 C 56 L 18 185/94 H 07/04/19 05:02 36.6 C 62 20 128/70 07/04/19 01:35 64 07/04/19 00:49 71 18 124/66 07/03/19 23:28 66 14 116/61 07/03/19 22:47 68 18 07/03/19 22:21 36.4 C L 135 H 18 131/78 Pulse Ox 07/04/19 14:15 98 07/04/19 13:48 97 07/04/19 11:36 96 07/04/19 09:26 07/04/19 07:27 94 07/04/19 05:02 96 07/04/19 01:35 07/04/19 00:49 100 07/03/19 23:28 100 07/03/19 22:47 99 07/03/19 22:21 98 Pain Intensity Abdomen: Pain Intensity: 7 Left: Pain Intensity: 7 Transfer of Care Handoff Completed per policy Notes Mental Status: alert / awake / arousable Patient Amnestic to Procedure: Yes Nausea / Vomiting: adequately controlled Pain: adequately controlled Airway Patency, RR, SpO2: stable & adequate BP & HR: stable & adequate Hydration State: stable & adequate Anesthetic Complications: no major complications apparent
--- NOTE | 2019-07-04 16:26 | Electrocardiogram Report ---
Test Reason : Blood Pressure : / mmHG Vent. Rate : 069 BPM Atrial Rate : 069 BPM P-R Int : 258 ms QRS Dur : 086 ms QT Int : 418 ms P-R-T Axes : 067 060 039 degrees QTc Int : 447 ms Sinus rhythm with 1st degree A-V block Low voltage QRS Borderline ECG When compared with ECG of 01-JUL-2019 10:01, No significant change was found Confirmed by Gary Rod ([id number]) on 07/04/2019 4:26:10 PM Referred By: REFERRED SELF Confirmed By:Gary Rod
[2019-07-04 17:17] LABS: Hematocrit (blood only) 29.8 % (37-47); Hemoglobin 9.2 g/dL (12.0-16.0)
--- NOTE | 2019-07-04 18:06 | GI REPORT ---
Patient Name: Desi Galindo Procedure Date: 07/04/2019 1:52 PM Date of : 1965 Admit Type: Inpatient Age: 53 Gender: Female Attending MD: Hilton Morgan MD Procedure: Upper GI endoscopy Providers: Hilton Morgan MD Referring MD: HARMAN SIMON Indications: Hematochezia Medicines: Propofol per Anesthesia Complications: No immediate complications. Estimated Blood Loss: Estimated blood loss: none. Procedure: Pre-Anesthesia Assessment: - Prior to the procedure, a History and Physical was performed, and patient medications, allergies and sensitivities were reviewed. The patient's tolerance of previous anesthesia was reviewed. - The risks and benefits of the procedure and the sedation options and risks were discussed with the patient. All questions were answered and informed consent was obtained. - Patient identification and proposed procedure were verified prior to the procedure by the physician and the nurse. The procedure was verified in the procedure room. - Pre-procedure physical examination revealed no contraindications to sedation. After obtaining informed consent, the endoscope was passed under direct vision. Throughout the procedure, the patient's blood pressure, pulse, and oxygen saturations were monitored continuously. The Endoscope was introduced through the mouth, and advanced to the second part of duodenum. The upper GI endoscopy was accomplished without difficulty. The patient tolerated the procedure well. Findings: The examined esophagus was normal. Localized mildly erythematous mucosa was found in the gastric antrum. The duodenal bulb and second portion of the duodenum were normal. Impression: - Normal esophagus. No varices. - Erythematous mucosa in the antrum. No blood seen. - Normal duodenal bulb and second portion of the duodenum. - No specimens collected. Recommendation: - Return patient to [facility] for ongoing care. - Perform a colonoscopy tomorrow. Hilton Morgan MD 07/04/2019 6:05:28 PM This report has been signed electronically. Note Initiated On: 07/04/2019 1:52 PM Number of Addenda: 0 I attest to the content of the Intraoperative Record and orders documented therein, exceptions below {[id number]}
[2019-07-04] MEDS ORDERED: LAVAGE SOLUTION 4000ML PO SCH (18:30)
--- NOTE | 2019-07-04 19:02 | Communication Note ---
Date of Service: July 04, 2019 Pt was seen and examined. Sitting in bed with no distress Pt said that she had a small bowel movement today but did not check it for blood Denies any chest pain, palpitation nd SOB Exam General- No acute distress Head- atraumatic Eyes- PERRL, EOMI, ENT- oropharynx clear Neck- supple, no JVD Lungs- clear to auscultation Heart- regular rhythm; no murmur Abdomen- normal bowel sounds, soft, nontender Extremities- no calf tenderness Neuro- alert, oriented x 3; PERRL, EOMI; no facial palsy; no dysarthria Skin- warm & dry A/P GI bleed Hemoccult positive Hemoglobin on admission 9.6, now 9.2 today Has been taking Advil while on xarelto Xarelto on hold due to the GI bleed GI on board EGD showed normal duodenal and esophagus. No varices On PPI drip case discussed with GI plan for colonoscopy tomorrow NPO after midnight Monitor CBC History of deep venous thrombosis/pulmonary embolism Xarelto on hold due to GI bleed Atrial fibrillation. Rate control with Coreg Xarelto on hold Hx of hypothyroidism. Continue Synthroid. Gastroesophageal reflux disease on PPI. MEEK liver cirrhosis. Continue Lasix and spironolactone She stopped taking Lactulose due to diarrhea GI recommended to resume lactulose DVT px on SCDs Code Status Full code
[2019-07-04] MEDS: OXYCODONE/APAP 7.5/325MG TAB PO PRN (20:40)
[2019-07-04] MEDS ORDERED: NORTRIPTYLINE HCL 25 MG CAP PO SCH (21:00)
[2019-07-04] MEDS ORDERED: INSULIN ASPART 100 UNITS/ML 3 ML PEN SC STA (21:03)
[2019-07-05] MEDS: INSULIN ASPART 100 UNITS/ML 3 ML PEN SC SCH ×2 (00:04→06:39)
[2019-07-05] MEDS: PROCHLORPERAZINE MALEATE 5 MG TAB PO PRN (02:18)
[2019-07-05] MEDS: PANTOprazole 40 MG in DEXTROSE 5% 100 ML IV SCH ×3 (02:45→12:09)
[2019-07-05] MEDS: HYDROmorphone INJ 0.5 MG/0.5 ML SYR IV PRN (02:58)
[2019-07-05] MEDS: LEVOTHYROXINE SODIUM 150 MCG TABLET PO SCH (06:09)
[2019-07-05 06:22] LABS: Hematocrit (blood only) 31.9 % (37-47); Hemoglobin 9.7 g/dL (12.0-16.0); Mean Corpuscular Hemoglobin 26.2 pg (25-34); Mean Corpuscular Hgb Conc 30.4 g/dL (32-36); Mean Corpuscular Volume 86.2 fL (80-100); Mean Platelet Volume 9.7 fL (7.4-10.4); Platelet Count 157 K/uL (130-400); RDW Coefficient of Variation 16.7 % (11.5-14.5); RDW Standard Deviation 52.7 fL (36.4-46.3); White Blood Count 6.66 K/uL (4.8-10.8)
--- NOTE | 2019-07-05 08:03 | Anesthesiology Progress Note ---
Date of Service July 05, 2019 Anesthesia Post Procedure Vital Signs Vital Signs: Temp Pulse Pulse Resp BP Pulse Ox 07/05/19 04:09 36.5 C 66 20 136/73 93 07/05/19 00:00 67 07/04/19 23:24 36.8 C 91 H 20 128/73 100 07/04/19 19:22 36.5 C 66 18 139/58 L 99 07/04/19 16:00 58 L 07/04/19 14:45 56 L 18 125/89 97 07/04/19 14:30 56 L 18 145/92 H 97 07/04/19 14:15 57 L 18 171/95 H 98 07/04/19 13:48 36.1 C L 55 L 16 146/83 H 97 07/04/19 11:36 36.5 C 63 20 142/79 H 96 07/04/19 09:26 60 Pain Intensity Abdomen: Pain Intensity: 7 Left: Pain Intensity: 7 Notes Mental Status: alert / awake / arousable and participated in evaluation Patient Amnestic to Procedure: Yes Nausea / Vomiting: adequately controlled Pain: adequately controlled Airway Patency, RR, SpO2: stable & adequate BP & HR: stable & adequate Hydration State: stable & adequate Anesthetic Complications: no major complications apparent and Pt Satisfied with anesthetic care
[2019-07-05] MEDS: BACLOFEN 10 MG TAB PO SCH (08:29)
[2019-07-05] MEDS: METOCLOPRAMIDE HCL 5 MG TABLET PO SCH ×3 (08:29→15:26)
[2019-07-05] MEDS: DICYCLOMINE HCL 10 MG CAP PO PRN (08:29)
[2019-07-05] MEDS: POTASSIUM CHLORIDE 10 MEQ TABCR PO SCH (08:30)
[2019-07-05] MEDS: DULOXETINE HCL 60 MG CAP PO SCH (08:30)
[2019-07-05] MEDS: SPIRONOLACTONE 25 MG TAB PO SCH (08:30)
[2019-07-05] MEDS: INSULIN GLARGINE SOLOSTAR 100 UNITS/ML 3 ML PEN SC SCH (08:31)
[2019-07-05] MEDS: carvediloL 12.5 MG TAB PO SCH (08:31)
[2019-07-05] MEDS: OXYCODONE/APAP 7.5/325MG TAB PO PRN ×2 (08:36→15:25)
[2019-07-05] MEDS ORDERED: FUROSEMIDE 20 MG TAB PO SCH (09:00)
--- NOTE | 2019-07-05 09:14 | Gastroenterology Progress Note ---
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 H/H 8.9, Hgb last October 03. Hx of gastric ulcer noted on previous EGD back in 2017, no known hx of esophageal varices. She had been on Xarelto for hx of DVTs and taking Advil 4 tabs q4-6hrs for neuropathic pain. EGD 07/03 - mild erythema on antrum. No signs of UGI bleed She drank Golytely bowel prep but unable to produce bowel movements. Refused to stay another day to prep for attempt colonoscopy tomorrow. Blood ct stable. Benign abd exam. - DC colonoscopy. Will schedule in outpt setting next week per pt's request - Restart diet - GI will sign off ; recall prn - Need close f/u after hospitalization for continued management of cirrhosis (we will help schedule) - Should be on Lactulose 20g BID (titrate for goal BM 3-5x a day) - Need HCC screening q6 months - Need diuretics adjusted depending on edema (on both Lasix and Spironolactone currently) and monitoring of renal function, electrolytes Admission and Anticipated Discharge Date Admission Date: July 04, 2019 Subjective Pt drank Golytely bowel prep but unable to produce bowel movements. She has mild generalized abd discomfort but not pain, no n/v. She refused to stay another day to repeat bowel prep and attempt colonoscopy tomorrow. Labs reviewed. Blood ct stable Review of Systems Review of Systems: All systems reviewed & are unremarkable except as noted in HPI & below Physical Exam Constitutional: + morbidly obese, well groomed, cooperative and comfortable Eyes: PERRL, conjunctivae normal, anicteric sclerae ENMT: external ear and nose normal, oropharynx normal Respiratory: normal respiratory effort, lungs clear to auscultation Cardiovascular: RRR, no murmur, no edema Gastrointestinal (Abdomen): normal bowel sounds, soft, nontender, no hepatosplenomegaly Skin: no rashes, warm and dry no jaundice Neurologic: Motor/Sensory: no asterixis Psychiatric: A+Ox3, euthymic affect Lymphatic: no lymphedema Results & Data ([facility]) Vital Signs (Past 12 Hours) Vital Signs Temp Pulse Pulse Resp BP Pulse Ox 07/05/19 08:04 36.6 C 71 18 145/80 H 93 07/05/19 04:09 36.5 C 66 20 136/73 93 07/05/19 00:00 67 07/04/19 23:24 36.8 C 91 H 20 128/73 100 (1) Anemia Anemia type: unspecified type Qualified Code(s): D64.9 - Anemia, unspecified
[2019-07-05] MEDS ORDERED: Nursing to Pharmacy Communication ONE ×2 (10:40→13:28)
[2019-07-05] MEDS ORDERED: INSULIN ASPART 100 UNITS/ML 3 ML PEN SC SCH (11:30)
--- NOTE | 2019-07-05 15:12 | Hospitalist Progress Note ---
Date of Service July 05, 2019 Assessment & Plan (1) Acute GI bleeding: GI bleed Hemoccult positive Hemoglobin on admission 9.6, now 9.7 today Has been taking Advil while on xarelto Xarelto on hold due to the GI bleed GI on board EGD showed normal duodenal and esophagus. No varices Will transition to oral PPI Colonoscopy cancelled today because after drinking the Golytely bowel prep but unable to produce bowel movements. Pt does not want to stay in the hospital to get it done tomorrow Spoke with GI and plan to get the colonoscopy done outpatient OK from GI standpoint to resume the Xarelto on discharge History of deep venous thrombosis/pulmonary embolism Xarelto on hold due to GI bleed Will resume on discharge Atrial fibrillation. Rate control with Coreg Xarelto on hold Hx of hypothyroidism. Continue Synthroid. Back Pain Continue outpatient pain management Gastroesophageal reflux disease on PPI. MEEK liver cirrhosis. Continue Lasix 60mg TID and spironolactone increased to 50 mg daily (Consider to increase to 100mg if renal function stable) She stopped taking Lactulose due to diarrhea GI recommended to resume lactulose BID Will check BMP next week DVT px on SCDs Code Status Full code Disposition Ok to discharge home Admission and Anticipated Discharge Date Admission Date: July 04, 2019 Subjective Pt was seen and examined Lying in bed with no distress Pt said that she does not have anymore blood in her stool She does not want to stay for the night to get the colonoscopy done since she only has a small bowel movement for the prep Denies any chest pain, palpitation, dizziness and SOB Physical Exam Physical Exam: General- No acute distress Head- atraumatic Eyes- PERRL, EOMI, ENT- oropharynx clear Neck- supple, no JVD Lungs- clear to auscultation Heart- regular rhythm; no murmur Abdomen- normal bowel sounds, soft, nontender Extremities- no calf tenderness Neuro- alert, oriented x 3; PERRL, EOMI; no facial palsy; no dysarthria Skin- warm & dry Results & Data ([facility]) Vital Signs (Past 12 Hours) Vital Signs Temp Pulse Resp BP Pulse Ox 07/05/19 12:15 77 140/78 95 07/05/19 08:04 36.6 C 71 18 145/80 H 93 07/05/19 04:09 36.5 C 66 20 136/73 93
--- NOTE | 2019-07-09 08:35 | Discharge Summary ---
Date of Service July 05, 2019 Admission HPI Per Admitting Provider CHIEF COMPLAINT: Blood per rectum. HISTORY OF PRESENT ILLNESS: This is a 53-year-old female with past medical history significant for morbid obesity; sleep apnea, noncompliant with BiPAP, says she had surgery for sleep apnea and since then she is not requiring it; history of diabetes; hypothyroidism; diabetic polyneuropathy; hyperlipidemia; history of pulmonary embolism; history of DVT; history of atrial fibrillation, on Xarelto; hypertension; recurrent idiopathic thrombophlebitis; history of MEEK liver cirrhosis; history of gastroesophageal reflux disease with esophagitis; history of spinal stenosis; history of prescribed drug dependence in the past; history of migraines; bipolar disorder; history of tobacco use disorder; history of medical marijuana use in the past; history of recurrent lower extremity cellulitis and abdominal surgeries in the past; history of small-bowel obstruction. The patient lives at home with her caregiver Mr. Garza who helps her. The patient comes here because of lower abdominal discomfort and she had 3 episodes of blood per rectum. She says the blood is not bright red or not light. She is nauseous, but no vomiting. She is on Xarelto. She has no other complaints. In the ER, Hemoccult was positive and stools were maroon colored. Complains of her usual chronic pain and requests some pain medications. Denies any headache, no blurred visions, no earache, no runny nose, no sore throat, no cough, no dysphagia, no chest pain. She is usually short of breath on exertion, has some dry cough. Chronic lower extremity edema present. She was on Lasix 60 mg p.o. t.i.d., but no longer taking it because she lost so much weight on it, she is only using it as needed, and she says lactulose was causing a lot of diarrhea, so she wanted to hold it for now. She is resting comfortably and hemodynamically stable. Admission Exam Per Admitting Provider GENERAL: The patient is morbidly obese, not in acute distress. VITAL SIGNS: Temperature 36.4, pulse 71, respiratory rate 18, blood pressure 124/66, oxygen 100% on room air. HEENT: No pallor, no icterus. Pupils equal, round, and reactive to light. NECK: No JVD, no neck mass, no carotid bruit. CARDIOVASCULAR: S1, S2 heard, regular rate and rhythm, no murmur, no gallop. RESPIRATORY SYSTEM: Normal AP diameter. No accessory muscle use. No wheezing, no crackles. ABDOMEN: Soft, bowel sounds present. Nontender. No rash. No pancolitis or rash seen. CENTRAL NERVOUS SYSTEM: Cranial nerves II-XII grossly intact, nonfocal. EXTREMITIES: Chronic lower extremity edema present, no erythema seen. Principal Diagnosis Acute GI bleeding History of deep venous thrombosis/pulmonary embolism Atrial fibrillation. Hx of hypothyroidism. Back Pain Gastroesophageal reflux disease MEEK liver cirrhosis. Discharge Exam General- No acute distress Head- atraumatic Eyes- PERRL, EOMI, ENT- oropharynx clear Neck- supple, no JVD Lungs- clear to auscultation Heart- regular rhythm; no murmur Abdomen- normal bowel sounds, soft, nontender Extremities- no calf tenderness Neuro- alert, oriented x 3; PERRL, EOMI; no facial palsy; no dysarthria Skin- warm & dry Discharge Data Allergies Allergy/AdvReac Type Severity Reaction Status Date / Time Iodinated Contrast Media Allergy Intermediate hives-PT Verified 07/04/19 13:46 DENIES SEE NOTE adhesive Allergy Mild RED RASH Verified 07/04/19 13:46 CAUSED BY PAPER TAPE vancomycin AdvReac Severe renal Verified 07/04/19 13:46 failure, required dialysis x 3 MONTHS acetaminophen AdvReac Intermediate Liver Verified 07/04/19 13:46 problems. alprazolam AdvReac Intermediate MAKES Verified 07/04/19 13:46 LOOPY,DO AND SAY SILLY THINGS codeine AdvReac Intermediate UPSET Verified 07/04/19 13:46 STOMACH haloperidol AdvReac Intermediate nervous Verified 07/04/19 13:46 and anxious metformin AdvReac Intermediate HANDS FEET Verified 07/04/19 13:46 FACE NUMB methylparaben AdvReac Intermediate FLUID Verified 07/04/19 13:46 RETENTION morphine AdvReac Intermediate SWELLING Verified 07/04/19 13:46 LEGS AND FEET oxymorphone AdvReac Intermediate FLUID Verified 07/04/19 13:46 RETENTION pregabalin AdvReac Intermediate Aphasia/Speech Verified 07/04/19 13:46 impairments gabapentin AdvReac Mild Aphasia/Speech Verified 07/04/19 13:46 impairments Sulfa (Sulfonamide AdvReac Mild GI SYMPTOMS Verified 07/04/19 13:46 Antibiotics) Consultations 07/03/19 23:34 ED Decision to Admit Stat 07/04/19 01:35 Consult Case Management - Discharge Planning Routine 07/04/19 08:00 Consult Gastroenterology Routine Procedures Performed Operation Date: 07/04/19 16:00 Actual Procedures p Esophagogastroduodenoscopy - Hilton Morgan MD Operation Date: 07/05/19 16:15 <No data on this case meets the specified criteria> Hospital Course (1) Acute GI bleeding: GI bleed Hemoccult positive Hemoglobin on admission 9.6, now 9.7 today Has been taking Advil while on xarelto Xarelto on hold due to the GI bleed GI on board EGD showed normal duodenal and esophagus. No varices Will transition to oral PPI Colonoscopy cancelled today because after drinking the Golytely bowel prep but unable to produce bowel movements. Pt does not want to stay in the hospital to get it done tomorrow Spoke with GI and plan to get the colonoscopy done outpatient OK from GI standpoint to resume the Xarelto on discharge History of deep venous thrombosis/pulmonary embolism Xarelto on hold due to GI bleed Will resume on discharge Atrial fibrillation. Rate control with Coreg Xarelto on hold Hx of hypothyroidism. Continue Synthroid. Back Pain Continue outpatient pain management Gastroesophageal reflux disease on PPI. MEEK liver cirrhosis. Continue Lasix 60mg TID and spironolactone increased to 50 mg daily (Consider to increase to 100mg if renal function stable) She stopped taking Lactulose due to diarrhea GI recommended to resume lactulose BID Will check BMP next week DVT px on SCDs Code Status Full code Disposition Ok to discharge home Total Time Total Time Spent Total Time Spent (In Minutes): 35 minutes Total Time Includes: Examination of the Patient, Discharge Planning, Medication Reconciliation, Communication With Other Providers and Other Discharge Plan Discharge Items Patient Disposition: Home - Home Health Services Reason For Visit: GI BLEED Discharge Diagnosis: Acute GI bleeding History of deep venous thrombosis/pulmonary embolism Atrial fibrillation. Hx of hypothyroidism. Back Pain Gastroesophageal reflux disease MEEK liver cirrhosis. Activity: Resume your previous activity Non-emergency contact: Primary Care Provider Call non-emergency contact if: you have any medication questions Follow-up/Referrals: Dewey Mcfadden DO [Primary Care Provider] - 07/11/19 9:10 am Diet: Carb Consistent or DM2 Addtl Attending Provider Instructions: Follow up with your primary care provider Dr. Mcfadden within 1 week Follow up with Gastroenterology in 2 to 4 weeks (Please call to schedule for the appointment) Check CBC in 1 week to monitor hemoglobin Ok To resume xarelto tomorrow Avoid any NSAIDs such as motrin, aleve, advil, naproxen, ibubropen, ... while on Xarelto due to increase risk of bleeding Continue monitor your blood sugar Do not drive or operate any machine while on narcotic Please hold next dose of narcotic if you feel drowsy or lethargy Please resume Lactulose (Goal to have 3 to 5 bowel movement per day) Pending Studies at Discharge: No Stand-Alone Forms: My [facility] [employer], Smoking Cessation Medications and DC Order Prescriptions: New tramadol 50 mg tablet 50 mg PO Q12H PRN (Reason: pain) Qty: 10 RF: 0 Continued lactulose 20 gram/30 mL solution 30 gm PO TID Qty: 3000 RF: 0 pantoprazole 40 mg tablet,delayed release (DR/EC) 40 mg PO DAILY RF: 0 levothyroxine 150 mcg 150 mcg PO DAILY RF: 0 ferrous sulfate 325 mg (65 mg iron) Tablet 325 mg PO DAILY RF: 0 spironolactone 25 mg tablet 25 mg PO DAILY RF: 0 Trulicity 0.75 mg/0.5 mL pen injector 0.75 mg SUBCUT WK RF: 0 potassium chloride 10 mEq capsule, extended release 10 meq PO BID RF: 0 prochlorperazine maleate [Compazine] 5 mg tablet 5 mg PO TID PRN (Reason: Nausea) RF: 0 metoclopramide HCl 5 mg Tablet 5 mg PO AC RF: 0 ranitidine HCl [Zantac] 150 mg tablet 150 mg PO BID RF: 0 dicyclomine 10 mg Capsule 10 mg PO QID PRN (Reason: ABD PAIN) RF: 0 insulin aspart U-100 [Novolog Flexpen U-100 Insulin] 100 unit/mL (3 mL) insulin pen 0 unit SUBCUT TIDM RF: 0 duloxetine [Cymbalta] 60 mg capsule,delayed release(DR/EC) 60 mg PO BID RF: 0 Xarelto 20 mg tablet 20 mg PO QPM RF: 0 ProAir RespiClick 90 mcg/actuation Aerosol Powdr Breath Activated 2 inh INHALATION Q4 PRN (Reason: Shortness Of Breath) RF: 0 furosemide [Lasix] 20 mg Tablet 60 mg PO TID RF: 0 Basaglar KwikPen U-100 Insulin 100 unit/mL (3 mL) insulin pen 70 unit SUBCUT BID Qty: 0 RF: 0 carvedilol 12.5 mg Tablet 12.5 mg PO BID RF: 0 nortriptyline 25 mg Capsule 25 mg PO HS RF: 0 baclofen 10 mg Tablet 10 mg PO BID RF: 0 Discontinued spironolactone [Aldactone] 25 mg tablet 25 mg PO QAM RF: 0 ibuprofen [Advil] 200 mg Tablet 600 mg PO Q6H PRN (Reason: Pain) RF: 0 Discharge Orders: Discharge Order (Routine); Ordered 07/05/19 Ordered By: Marjan Saldaña Admission Data Admit Date/Time: 07/04/19 00:41 Attending Provider: Marjan Saldaña Admit Provider: Izaiah Gage Primary Care Provider: Dewey Mcfadden Other Providers: Izaiah Gage ; See Ramirez Jessica R. ; Vicky Patterson ; Kait Zavaleta ; Carlos Jones ; Jamie Guadalupe ; Eloy Cantu ; Yanna Garduno ; Casey Arcos ; Oscar Cleveland ; Janett Rizvi ; Skyla Mathew ; Rosa Rosado ; Sofia Saleh ; Hilton Morgan Other Interventions: Discharge Summary Assessment (RN) Last Done: 07/05/19 16:00 DC Date/Time DO NOT enter until pt leaves facility: 07/05/19 16:45
== END 2019-07-05 16:45 | disposition home health service (06) | DRG 378 ==
LOC: ED 22:18 → 2E 07-04 00:41

== ENCOUNTER 2019-07-15 10:06 | Inpatient (IN) ==
--- NOTE | 2019-07-15 10:40 | Emergency Department Note ---
ED Provider Note NAME: EMANUEL MOSS AGE: 53 SEX: F ARRIVES VIA: Walk-In INFORMANT: Patient her male friend ED PROVIDER(S): Yamilex Morejon DO CHIEF COMPLAINT: Altered mental status IMPRESSION: Hepatic encephalopathy Hyperammonemia PLAN: Disposition: Admitted to the [facility] service Condition: Fair MEDICAL DECISION MAKING: This is a 53-year-old female patient who presents to the emergency department with increased lethargy and altered mental status. She has a history of MEEK with frequent episodes of hepatic encephalopathy. The patient's male friend describes giving her increased doses of lactulose but has concerns that her ammonia level continues to rise as he has found her increasingly confused this morning. The patient's lactulose level is greater than 100. She has been difficult to arouse while here in the emergency department. Triage Nursing notes reviewed and agree them. [Additional history obtained from a male friend who is at the bedside and helps care for the patient. Prior medical records reviewed in the electronic health record. Vital Signs: reviewed and unremarkable Differential diagnosis: Hypoglycemia, hyperammonemia, intracranial process, overdose, sleep deprivation, hepatic encephalopathy, hyperglycemia Diagnostics interpreted by me: ECG: [Normal sinus rhythm at 93. This had a very poor baseline and was difficult to interpret. There was no obvious ischemia or significant ectopy. Cardiac Monitoring: Normal sinus rhythm at a rate of 68 Laboratory studies: See below Consultation(s): Dr. Boss HPI: 53/F arrives for evaluation of worsening altered mental status. Most of the history was obtained from the patient's friend who is at the bedside. He describes that the patient has become increasingly confused over the past 24 hours. He has been giving her increased doses of lactulose but her mental status has not been improving. He typically gives her 45 mL's every 6 hours. He explained that he found her standing over him last night in a confused state. He also found objects/items in their home in disarray which was concerning to him that she had become increasingly confused. He explained that the patient will start to fall asleep even while he is talking to her. ROS: See above HPI for pertinent positives & negatives. A total of 10 systems reviewed and were otherwise negative. PAST MEDICAL HISTORY:See Below PAST SURGICAL HISTORY:See Below FAMILY HISTORY:See Below SOCIAL HISTORY:See Below HOME MEDICATIONS:See list ALLERGIES:See list VITALS:See Below PHYSICAL EXAMINATION: [This is a morbidly obese female who appears lethargic. HEENT: Head - normocephalic and atraumatic Pupils are equal, round, and reactive to light. Extraocular eye muscles are intact, and sclera are anicteric. Nose - moist nasal mucosa without discharge. Mouth - moist buccal mucosa. Oropharynx is nonerythematous and there is no tonsillar exudate or edema noted. Neck: Supple; could not appreciate any thyromegaly Heart: Regular rate and rhythm. There is a normal S1 and S2 with no murmurs, clicks, or gallops appreciated. Lungs: Clear to auscultation bilaterally with no wheezes, rales, or rhonchi. Abdomen: Soft, completely nontender, nondistended, with good bowel sounds. There are no palpable pulsatile masses or hepatosplenomegaly. There is no guarding, rigidity, or rebound noted. Extremities: No evidence of cyanosis, clubbing, or edema. There are easily palpable peripheral pulses. Skin: A couple of areas of contusion on her lower extremities. She explains that she bumped into things. Neuro: The patient does appear to be lethargic. She will fall asleep if not constantly engaged. ED COURSE: 10:40: The patient was evaluated in room C9. A complete history and physical was performed. An order was placed for continuous cardiac monitoring. The patient was in a normal sinus rhythm at a rate of 72. A twelve-lead EKG was obtained. An IV lock was initiated and labs were drawn 11:55: The patient was sound asleep. His vitals were stable on the monitor. I reviewed the labs with him. I explained that she would be admitted to the [place] [facility] service. She could barely stay awake for the conversation. Yamilex Morejon, DO Impression & Plan Acute hepatic encephalopathy Past Med/Surg History Social History Preferred Language: Kinyarwanda Communication Ability: Effective Hydrogeologist Required: No Beliefs That Will Affect Care: None Current Living Situation: Other Current Living Situation Comment: friend/caregiver herbert vaughan current occupational status: disabled Feels Safe at Home: Yes Safety Concerns: Feels Safe At This Time Smoking Status: Former smoker Tobacco Type: cigarettes and e-cigarettes ; Cigarettes Per Day: 1/2 PPD ; Second Hand Exposure: No ; Hx Alcohol Use: No Hx Substance Use: No Results & Data Vital Signs Vital Signs - 24 hr 07/15/19 10:08 07/15/19 11:01 07/15/19 11:30 Temperature 36.6 C Temperature Source Oral Pulse Rate 72 63 75 Pulse Rate from SpO2 Sensor 63 79 Respiratory Rate 22 21 15 Respiratory Effort / Characteristics Non-Labored Spontaneous Blood Pressure 152/92 H 109/85 112/79 Blood Pressure Mean 112 101 84 Pulse Oximetry 98 98 93 Oxygen Delivery Method Room Air Sepsis Recent Fever Within 48 Hours No Sepsis New/Unexplained Change in Mental Status No Sepsis Action Taken by Nursing No Action Required 07/15/19 12:30 07/15/19 13:20 07/15/19 13:30 Temperature Temperature Source Pulse Rate 79 70 78 Pulse Rate from SpO2 Sensor 79 70 77 Respiratory Rate 22 18 17 Respiratory Effort / Characteristics Blood Pressure 137/89 109/63 Blood Pressure Mean 97 72 Pulse Oximetry 94 93 99 Oxygen Delivery Method Sepsis Recent Fever Within 48 Hours Sepsis New/Unexplained Change in Mental Status Sepsis Action Taken by Nursing 07/15/19 13:40 07/15/19 13:50 07/15/19 14:00 Temperature Temperature Source Pulse Rate 74 74 70 Pulse Rate from SpO2 Sensor 73 72 70 Respiratory Rate 21 Respiratory Effort / Characteristics Blood Pressure 144/74 H Blood Pressure Mean 80 Pulse Oximetry 98 97 93 Oxygen Delivery Method Sepsis Recent Fever Within 48 Hours Sepsis New/Unexplained Change in Mental Status Sepsis Action Taken by Nursing 07/15/19 14:10 Temperature Temperature Source Pulse Rate 70 Pulse Rate from SpO2 Sensor 72 Respiratory Rate 13 Respiratory Effort / Characteristics Blood Pressure Blood Pressure Mean Pulse Oximetry 92 Oxygen Delivery Method Sepsis Recent Fever Within 48 Hours Sepsis New/Unexplained Change in Mental Status Sepsis Action Taken by Nursing Laboratory Data Result diagrams: 07/15/19 10:52 07/15/19 10:52 Lab Results 07/15/19 07/15/19 07/15/19 Range/Units 10:52 10:52 10:52 WBC 6.52 (4.8-10.8) K/uL RBC 3.58 L (4.2-5.4) M/uL Hgb 9.6 L (12.0-16.0) g/dL Hct 31.5 L (37-47) % MCV 88.0 (80-100) fL MCH 26.8 (25-34) pg MCHC 30.5 L (32-36) g/dL RDW Std Deviation 57.2 H (36.4-46.3) fL RDW Coeff of Mari 18.5 H (11.5-14.5) % Plt Count 156 (130-400) K/uL MPV 9.2 (7.4-10.4) fL Immature Gran % (Auto) 0.6 % Neut % (Auto) 60.9 % Lymph % (Auto) 23.0 % Thayer % (Auto) 10.3 % Eos % (Auto) 4.6 % Baso % (Auto) 0.6 % Immature Gran # (Auto) 0.04 H (0.00-0.02) K/uL Neut # (Auto) 3.97 (1.4-6.5) K/uL Lymph # (Auto) 1.50 (1.2-3.4) K/uL Thayer # (Auto) 0.67 H (0.11-0.59) K/uL Eos # (Auto) 0.30 (0-0.5) K/uL Baso # (Auto) 0.04 (0-0.2) K/uL Sodium 136 (136-145) mmol/L Potassium 4.1 (3.5-5.1) mmol/L Chloride 106 (98-107) mmol/L Carbon Dioxide 29 (21-32) mmol/L Anion Gap 1.0 L (3-11) BUN 10 (7-18) mg/dl Creatinine 1.13 (0.6-1.2) mg/dl Est Cr Clr Drug Dosing 90.0 ml/min Est GFR ( Amer) 63.4 Est GFR (Non-Af Amer) 54.7 BUN/Creatinine Ratio 9.0 L (10-20) Glucose 253 H (70-99) mg/dl Calcium 8.9 (8.5-10.1) mg/dl Total Bilirubin 0.7 (0.2-1) mg/dl AST 30 (15-37) U/L ALT 22 (12-78) U/L Alkaline Phosphatase 132 H (45-117) U/L Ammonia 100.0 H (11-32) umol/L NT-Pro-B Natriuret Pep (0-900) pg/ml Total Protein 7.4 (6.4-8.2) gm/dl Albumin 2.7 L (3.4-5.0) gm/dl Globulin 4.7 H (2.5-4.0) gm/dl Albumin/Globulin Ratio 0.6 L (0.9-2) 07/15/19 Range/Units 10:52 WBC (4.8-10.8) K/uL RBC (4.2-5.4) M/uL Hgb (12.0-16.0) g/dL Hct (37-47) % MCV (80-100) fL MCH (25-34) pg MCHC (32-36) g/dL RDW Std Deviation (36.4-46.3) fL RDW Coeff of Mari (11.5-14.5) % Plt Count (130-400) K/uL MPV (7.4-10.4) fL Immature Gran % (Auto) % Neut % (Auto) % Lymph % (Auto) % Thayer % (Auto) % Eos % (Auto) % Baso % (Auto) % Immature Gran # (Auto) (0.00-0.02) K/uL Neut # (Auto) (1.4-6.5) K/uL Lymph # (Auto) (1.2-3.4) K/uL Thayer # (Auto) (0.11-0.59) K/uL Eos # (Auto) (0-0.5) K/uL Baso # (Auto) (0-0.2) K/uL Sodium (136-145) mmol/L Potassium (3.5-5.1) mmol/L Chloride (98-107) mmol/L Carbon Dioxide (21-32) mmol/L Anion Gap (3-11) BUN (7-18) mg/dl Creatinine (0.6-1.2) mg/dl Est Cr Clr Drug Dosing ml/min Est GFR ( Amer) Est GFR (Non-Af Amer) BUN/Creatinine Ratio (10-20) Glucose (70-99) mg/dl Calcium (8.5-10.1) mg/dl Total Bilirubin (0.2-1) mg/dl AST (15-37) U/L ALT (12-78) U/L Alkaline Phosphatase (45-117) U/L Ammonia (11-32) umol/L NT-Pro-B Natriuret Pep 54 (0-900) pg/ml Total Protein (6.4-8.2) gm/dl Albumin (3.4-5.0) gm/dl Globulin (2.5-4.0) gm/dl Albumin/Globulin Ratio (0.9-2) Administered Medications Lactulose (Chronulac) 30 gm PO QID [facility] Stop: 08/14/19 16:59 Last Admin: 07/15/19 16:48 Dose: 30 gm Documented by: [id number] Rivaroxaban (Xarelto) 20 mg PO QDD [facility] Stop: 08/14/19 16:29 Last Admin: 07/15/19 16:48 Dose: 20 mg Documented by: [id number] Discontinued Medications Furosemide 40 mg/ Syringe 4 mls @ 4 mls/min IV ONE ONE Stop: 07/15/19 16:31 Last Admin: 07/15/19 16:49 Dose: 4 mls/min Documented by: [id number] Discharge Plan Visit Data *Final* Discharge Date/Time: 07/15/19 14:40 Chief Complaint: Abnormal Labs/Diagnostic Testing Stated Complaint: AMONIA LEVEL ED Provider: Yamilex Morejon Discharge Problem: Acute hepatic encephalopathy Patient Disposition: Admitted As Inpatient Discharge Instructions Interventions: ED Discharge Assessment Last Done: 07/15/19 14:40
[2019-07-15 11:11] LABS: Basophils # (auto) 0.04 K/uL (0-0.2); Basophils % (auto) 0.6 %; Eosinophils % (auto) 4.6 %; Hematocrit (blood only) 31.5 % (37-47); Hemoglobin 9.6 g/dL (12.0-16.0); Immature Granulocytes # (auto) 0.04 K/uL (0.00-0.02); Immature Granulocytes % (auto) 0.6 %; Mean Corpuscular Hemoglobin 26.8 pg (25-34); Mean Corpuscular Hgb Conc 30.5 g/dL (32-36); Mean Platelet Volume 9.2 fL (7.4-10.4); Monocytes # (auto) 0.67 K/uL (0.11-0.59); Monocytes % (auto) 10.3 %; Neutrophils # (auto) 3.97 K/uL (1.4-6.5); Neutrophils % (auto) 60.9 %; Platelet Count 156 K/uL (130-400); RDW Coefficient of Variation 18.5 % (11.5-14.5); RDW Standard Deviation 57.2 fL (36.4-46.3); Red Blood Count 3.58 M/uL (4.2-5.4); White Blood Count 6.52 K/uL (4.8-10.8)
[2019-07-15 11:37] LABS: Albumin Level 2.7 gm/dl (3.4-5.0); Calcium 8.9 mg/dl (8.5-10.1); Est GFR (African American) 63.4; Est GFR (Non-African American) 54.7; Potassium 4.1 mmol/L (3.5-5.1)
[2019-07-15 11:39] LABS: Albumin Globulin Ratio 0.6 (0.9-2); Bilirubin,Total 0.7 mg/dl (0.2-1); Globulin 4.7 gm/dl (2.5-4.0); Total Protein 7.4 gm/dl (6.4-8.2)
--- NOTE | 2019-07-15 13:54 | History & Physical Report ---
Date of Service July 15, 2019 Assessment & Plan (1) Hepatic encephalopathy: Patient presented with confusion/lethargy/altered mental status History of [place] cirrhosis, ammonia level elevated 100 Metabolic/hepatic encephalopathy secondary to hyper ammonemia History of noncompliance(of the patient's wireless sales consultant states patient was given lactulose daily) Ordered for lactulose No evidence of focal deficit, patient able to wake up briefly with voice, Moving all extremities no facial droop or focal weakness noted CT head noncontrast was not ordered-no evidence of acute CVA noted clinically With any change or worsening of mental status suggestive of stroke/TIA CT head noncontrast will be checked ABG shows pH 7.38/CO2 41/bicarb 24/PO2 72 on room air SPO2 improved to 95% after 2 L oxygen supplement Continue to monitor in telemetry, (2) Hyperammonemia: Possibly secondary to noncompliance with lactulose, history of [place] cirrhosis No evidence of any infection, or GI bleed Continue lactulose, LFTs within normal limit Repeat ammonia level in a.m. (3) RIMA (obstructive sleep apnea): History of obstructive sleep apnea, poorly compliant with BiPAP Continue supplemental O2 2 L via nasal cannula, ordered for BiPAP at night Acute CHF with diastolic failure: HFp EF: Chest x-ray shows pulmonary congestion, new development compared to chest x-ray done 2 days back on 07/13/2019 Patient is known to be very noncompliant with her meds/Lasix in the past Ordered for IV Lasix 40 mg twice daily Very hard to assess volume status given morbid obesity Ordered for proBNP level Type 2 diabetes poorly controlled And for hemoglobin A1c Insulin sliding scale Pharmacy consult for glycemic management Morbid obesity BMI more than 60 History of paroxysmal A. fib Continue beta-shin On Xarelto for stroke prophylaxis Code status: Full code DVT prophylaxis: On Xarelto Disposition: Admitted to medical telemetry floor Patient will need PT OT evaluation when clinically appropriate/awake and able to follow command Plan of care updated to patient's caregiver Mr. Herbert Hastings phone #[phone] over the phone History of Present Illness Chief Complaint: Confusion/lethargy Primary Care Provider: Dewey Mcfadden DO This is a 53-year-old female with complex past medical history of obstructive sleep apnea noncompliant with BiPAP, type 2 diabetes hypothyroidism diabetic polyneuropathy, [place] cirrhosis, history of paroxysmal A. fib on Xarelto Brought to the ER by her caregiver Mr. Herbert Hastings, as patient was noted to be confused, lethargic for the past 2-3 days. During my interview, patient remains lethargic, opens eyes to voice, could tell me her name, does not know where she is at Information obtained from patient's caregiver Mr. Hastings over the phone As per Mr. Hastings, patient has been having episodes of confusion for the past several days, He has been giving lactulose to the patient's regularly, as prescribed, Patient was in the ER on 07/13/2019 with complaining of shortness of breath Chest x-ray was normal without any evidence of pulmonary congestion, patient was given nebulizer treatment, was discharged home Patient's caregiver mentioned yesterday night patient was more oriented, able to have a conversation, had large bowel movement, no episode of blood in stool Last night, patient woke up confused, disoriented, could not recognize her caregiver's Patient found to be very difficult to arouse In the ER: Vitals: Blood pressure 120/78, pulse 71 respiratory 22 temp 36.4/ pulse oximetry 100% in room air Lab shows: Ammonia level elevated to 100, with normal LFTs Allergies Allergy/AdvReac Type Severity Reaction Status Date / Time Iodinated Contrast Media Allergy Intermediate hives-PT Verified 07/15/19 10:50 DENIES SEE NOTE adhesive Allergy Mild RED RASH Verified 07/15/19 10:50 CAUSED BY PAPER TAPE vancomycin AdvReac Severe renal Verified 07/15/19 10:50 failure, required dialysis x 3 MONTHS acetaminophen AdvReac Intermediate Liver Verified 07/15/19 10:50 problems. alprazolam AdvReac Intermediate MAKES Verified 07/15/19 10:50 LOOPY,DO AND SAY SILLY THINGS codeine AdvReac Intermediate UPSET Verified 07/15/19 10:50 STOMACH haloperidol AdvReac Intermediate nervous Verified 07/15/19 10:50 and anxious metformin AdvReac Intermediate HANDS FEET Verified 07/15/19 10:50 FACE NUMB methylparaben AdvReac Intermediate FLUID Verified 07/15/19 10:50 RETENTION morphine AdvReac Intermediate SWELLING Verified 07/15/19 10:50 LEGS AND FEET oxymorphone AdvReac Intermediate FLUID Verified 07/15/19 10:50 RETENTION pregabalin AdvReac Intermediate Aphasia/Speech Verified 07/15/19 10:50 impairments gabapentin AdvReac Mild Aphasia/Speech Verified 07/15/19 10:50 impairments Sulfa (Sulfonamide AdvReac Mild GI SYMPTOMS Verified 07/15/19 10:50 Antibiotics) Home Medications Home Medications Medication Instructions Recorded Confirmed Type Xarelto 20 mg PO QDD 03/12/19 07/15/19 History duloxetine [Cymbalta] 60 mg PO BID 03/12/19 07/15/19 History furosemide [Lasix] 60 mg PO TID 03/12/19 07/15/19 History insulin aspart U-100 [Novolog 2 - 30 unit SUBCUT TIDM 03/12/19 07/15/19 History Flexpen U-100 Insulin] metoclopramide HCl [Reglan] 5 mg PO AC 03/12/19 07/15/19 History potassium chloride 10 meq PO BID 03/12/19 07/15/19 History prochlorperazine maleate 5 mg PO TID PRN 03/12/19 07/15/19 History [Compazine] Basaglar KwikPen U-100 Insulin 70 unit SUBCUT BID #0 ml 03/15/19 07/15/19 Rx carvedilol 12.5 mg PO BID 03/21/19 07/15/19 History nortriptyline [Pamelor] 25 mg PO HS 03/21/19 07/15/19 History spironolactone [Aldactone] 25 mg PO HS 07/05/19 07/15/19 History dulaglutide [Trulicity] 1.5 mg SUBCUT MO 07/13/19 07/15/19 History hydroxyzine HCl 10 mg PO Q6H PRN 07/13/19 07/15/19 History levothyroxine [Synthroid] 125 mcg PO DAILYBB 07/13/19 07/15/19 History mirtazapine [Remeron] 15 mg PO HS 07/13/19 07/15/19 History nystatin 1 applic TOPICAL BID 07/13/19 07/15/19 History ranitidine HCl 300 mg PO HS 07/13/19 07/15/19 History Past Med/Surg History Social History Preferred Language: Irish Communication Ability: Effective Hotel Manager Required: No Beliefs That Will Affect Care: None Current Living Situation: Other Current Living Situation Comment: friend/caregiver herbert hastings current occupational status: disabled Feels Safe at Home: Yes Safety Concerns: Feels Safe At This Time Smoking Status: Former smoker Tobacco Type: cigarettes and e-cigarettes ; Cigarettes Per Day: 1/2 PPD ; Second Hand Exposure: No ; Hx Alcohol Use: No Hx Substance Use: No Review of Systems Review of Systems: Unobtainable due to cognitive status (Patient remains confused/lethargic) Physical Exam Constitutional: + obese and + altered mental status (Lethargic/difficult to arouse) Eyes: + anicteric sclerae Respiratory: no respiratory distress and no cough Auscultation: + diminished lung sounds; no wheezes Cardiovascular: Rate/Rhythm: regular rate and regular rhythm Gastrointestinal (Abdomen): Inspection/Auscultation: + abdomen distended and normal bowel sounds Percussion/Palpation: abdomen soft Neurologic: moves all extremities; no focal motor deficits Lethargic/confused Results & Data Vital Signs (Past 12 Hours) Vital Signs Temp Pulse Resp BP Pulse Ox 07/15/19 12:30 79 22 137/89 94 07/15/19 11:30 75 15 112/79 93 07/15/19 11:01 63 21 109/85 98 07/15/19 10:08 36.6 C 72 22 152/92 H 98 Diagnostic Findings XR chest 1V portable 07/15/19 HISTORY: 53 years-old Female sob acute shortness of breath COMPARISON: Chest radiograph 07/13/2019 TECHNIQUE: Portable AP view of the chest FINDINGS: Cardiac silhouette is enlarged. Interval development of pulmonary vascular congestion with interstitial opacities. Probable trace pleural effusions. No pneumothorax. Degenerative changes of the shoulders and spine. IMPRESSION: Cardiomegaly with interval development of pulmonary edema and probable trace pleural effusions. Code Status & VTE Plan Code Status FULL CODE VTE Prophylaxis Plan VTE Prophylaxis will be ordered: Yes
--- NOTE | 2019-07-15 15:04 | XRay Report ---
XR chest 1V portable HISTORY: 53 years-old Female sob acute shortness of breath COMPARISON: Chest radiograph 07/13/2019 TECHNIQUE: Portable AP view of the chest FINDINGS: Cardiac silhouette is enlarged. Interval development of pulmonary vascular congestion with interstiti al opacities. Probable trace pleural effusions. No pneumothorax. Degenerative changes of the shoulder s and spine. IMPRESSION: Cardiomegaly with interval development of pulmonary edema and probable trace pleural effu sions. ACT 112: Negative or not required by law. The above report was generated using voice recognition software. It may contain grammatical, syntax o r spelling errors. Electronically signed by: Rancho Rees M.D. 07/15/2019 3:03 PM
[2019-07-15 15:09] LABS: Base Excess ABG -1.1 mEq/L (-9-1.8); HCO3 ABG 24 mmol/L (19-24); Oxygen Saturation ABG 93.4 % (90-95); PCO2 ABG 41 mmHg (35-46); PO2 ABG 72 mmHg (80-95); pH ABG 7.38 (7.35-7.45)
[2019-07-15 15:10] LABS: Allen Test POS (Pos)
[2019-07-15] MEDS ORDERED: PROCHLORPERAZINE MALEATE 5 MG TAB PO PRN (15:21)
[2019-07-15] MEDS ORDERED: CARBOHYDRATES FOR HYPOGLYCEMIA PO PRN (15:21)
[2019-07-15] MEDS ORDERED: GLUCOSE 40% GEL 15 GM TUBE PO PRN (15:21)
[2019-07-15] MEDS ORDERED: GLUCAGON FOR INJ 1 MG VIAL SQ PRN (15:21)
[2019-07-15] MEDS ORDERED: DEXTROSE 50% 50 ML SYRINGE IV PRN (15:21)
[2019-07-15] MEDS ORDERED: GLUCOSE 10 TABS/TUBE PO PRN (15:21)
[2019-07-15] MEDS ORDERED: Nursing to Pharmacy Communication ONE (15:45)
[2019-07-15] MEDS ORDERED: FUROSEMIDE 40 MG in SYRINGE 0 ML IV ONE (16:30)
[2019-07-15] MEDS ORDERED: INSULIN ASPART 100 UNITS/ML 3 ML PEN SC SCH (16:30)
[2019-07-15] MEDS ORDERED: PHARMACY GLYCEMIC MGMT CONSULT PRN (16:43)
[2019-07-15] MEDS ORDERED: LACTULOSE 200 GM, WATER, STERILE IRRIG 700 ML, BARCODE IDENTIFIER 1 EA PR ONE (16:45)
[2019-07-15] MEDS: RIVAROXABAN 20 MG TAB PO SCH (16:48)
[2019-07-15] MEDS: LACTULOSE SYRUP 30 GM/45 ML UDP PO SCH ×2 (16:48→20:27)
[2019-07-15] MEDS: INSULIN ASPART 100 UNITS/ML 3 ML PEN SC SCH ×2 (17:41→20:43)
[2019-07-15 17:51] LABS: Amphetamines+Metham, Urine Neg (Neg); Barbiturates, Urine Neg (Neg); Benzodiazepine, Urine Neg (Neg); Cocaine, Urine Neg (Neg); MDMA (Ecstacy), Urine Neg (Neg); Methadone, Urine Neg (Neg); Opiate, Urine Pos (Neg); Phencyclidine, Urine Neg (Neg)
--- NOTE | 2019-07-15 18:36 | Electrocardiogram Report ---
Test Reason : Blood Pressure : / mmHG Vent. Rate : 093 BPM Atrial Rate : 062 BPM P-R Int : 258 ms QRS Dur : 082 ms QT Int : 398 ms P-R-T Axes : 024 060 031 degrees QTc Int : 494 ms Poor data quality, interpretation may be adversely affected sinus rhythm with 1st degree AV block Low voltage QRS Prolonged QT Abnormal ECG When compared with ECG of 13-JUL-2019 01:53, Criteria for Septal infarct are no longer Present QT has lengthened Confirmed by Anshu Cevallos ([id number]) on 07/15/2019 6:35:46 PM Referred By: REFERRED SELF Confirmed By:Everardo Cevallos
[2019-07-15] MEDS: NYSTATIN CR 15 GM TUBE EXT SCH (20:25)
[2019-07-15] MEDS: DULOXETINE HCL 60 MG CAP PO SCH (20:25)
[2019-07-15] MEDS: FUROSEMIDE 40 MG in SYRINGE 0 ML IV SCH (20:25)
[2019-07-15] MEDS: POTASSIUM CHLORIDE 10 MEQ TABCR PO SCH (20:26)
[2019-07-15] MEDS: carvediloL 12.5 MG TAB PO SCH (20:26)
[2019-07-15] MEDS: SPIRONOLACTONE 25 MG TAB PO SCH (20:27)
[2019-07-15] MEDS ORDERED: FUROSEMIDE 20 MG TAB PO SCH (21:00)
[2019-07-15] MEDS: INSULIN GLARGINE SOLOSTAR 100 UNITS/ML 3 ML PEN SC SCH (21:44)
[2019-07-16] MEDS: LEVOTHYROXINE SODIUM 125 MCG TABLET PO SCH (05:38)
[2019-07-16 05:44] LABS: Hematocrit (blood only) 30.3 % (37-47); Hemoglobin 9.1 g/dL (12.0-16.0); Mean Corpuscular Hemoglobin 26.9 pg (25-34); Mean Corpuscular Volume 89.6 fL (80-100); Mean Platelet Volume 9.1 fL (7.4-10.4); Platelet Count 151 K/uL (130-400); RDW Coefficient of Variation 19.2 % (11.5-14.5); RDW Standard Deviation 59.9 fL (36.4-46.3); Red Blood Count 3.38 M/uL (4.2-5.4); White Blood Count 6.46 K/uL (4.8-10.8)
[2019-07-16] MEDS ORDERED: ACETAMINOPHEN 325 MG TAB PO PRN (05:53)
[2019-07-16 06:42] LABS: Albumin Globulin Ratio 0.6 (0.9-2); Albumin Level 2.5 gm/dl (3.4-5.0); BUN Creatinine Ratio 8.1 (10-20); Bilirubin,Total 0.6 mg/dl (0.2-1); Calcium 8.6 mg/dl (8.5-10.1); Creatinine Clr Calc Pharmacy 93.8 ml/min; Est GFR (African American) 69.2; Est GFR (Non-African American) 59.7; Globulin 4.1 gm/dl (2.5-4.0); Potassium 3.4 mmol/L (3.5-5.1); Total Protein 6.6 gm/dl (6.4-8.2)
[2019-07-16 07:13] LABS: Estimated Average Glucose 246 mg/dl; Hemoglobin A1C 10.2 % (4.5-5.6)
[2019-07-16] MEDS: INSULIN ASPART 100 UNITS/ML 3 ML PEN SC SCH ×4 (08:13→20:32)
[2019-07-16] MEDS: POTASSIUM CHLORIDE 10 MEQ TABCR PO SCH ×2 (08:14→20:28)
[2019-07-16] MEDS ORDERED: POTASSIUM CHLORIDE 20 MEQ TABCR PO STA (08:14)
[2019-07-16] MEDS: carvediloL 12.5 MG TAB PO SCH ×2 (08:14→20:28)
[2019-07-16] MEDS: LACTULOSE SYRUP 30 GM/45 ML UDP PO SCH ×4 (08:14→20:28)
[2019-07-16] MEDS: NYSTATIN CR 15 GM TUBE EXT SCH ×2 (08:15→20:33)
[2019-07-16] MEDS: FUROSEMIDE 40 MG in SYRINGE 0 ML IV SCH (08:15)
[2019-07-16] MEDS: INSULIN GLARGINE SOLOSTAR 100 UNITS/ML 3 ML PEN SC SCH (08:15)
[2019-07-16] MEDS: FAMOTIDINE 20 MG TAB PO SCH (08:16)
--- NOTE | 2019-07-16 08:57 | Pharmacy Report ---
Glycemic Control Consultation - Date of Service July 16, 2019 - Scope Scope: Glycemic Pharmacist consulted for glycemic control and to write orders per [facility] inpatient glycemic control protocol. - Objective Weight: 159.9 kg Accuchecks BSG (last 24hrs): 07/15/19 07/15/19 07/15/19 10:52 16:55 20:20 Glucose 253 H POC Glucose 191 H 241 H 07/16/19 07/16/19 05:28 07:43 Glucose 142 H POC Glucose 126 H Laboratory Data (last 24hrs): 07/15/19 07/16/19 10:52 05:28 Potassium 4.1 3.4 L D Carbon Dioxide 29 33 H Anion Gap 1.0 L 4.0 Creatinine 1.13 1.05 Est Cr Clr Drug Dosing 90.0 93.8 HbA1c: Hemoglobin A1c 10.2 % (4.5-5.6) H 07/15/19 10:52 - Recent Pertinent Medications Outpatient Anti-diabetic Regimen: * Basaglar 70 units BID * Trulicity 1.5 mg every Tuesday * Novolog SSI 2-30 units TIDM based on BSG 150-500 mg/dL * A1c = 10.2% 07/15/2019 Risk Factors for Insulin Resistance: * Diet: T2DM - Assessment & Plan Assessment & Plan: ASSESSMENT: * 53 yo F admitted for hepatic encephalopathy * Patient is well known to pharmacy glycemic services, inpatient insulin requirements typically less than reported outpatient regimen * A1c shows uncontrolled T2DM as outpatient * Fasting BSG 142 mg/dL this AM, lunchtime increased to 205 mg/dL PLAN FOR INPATIENT GLYCEMIC CONTROL: * Basal insulin * Lantus 35 units SQ x 1 this AM * Lantus 15 units SQ x 1 at lunchtime * Lantus 25-45 units SQ based on BSG * Bolus insulin * NovoLog per scale ACHS or Q6hrs while NPO * Goal Range: Low 120 mg/dL - High 150 mg/dL * Correction Factor: 15 mg/dL/unit * Nutritional / Prandial insulin per carb ratio of 1 unit per 4 grams CHO consumed DISCHARGE RECOMMENDATIONS: * To be determined * Please note that the plan above was derived based on current level of insulin resistance and hospital stress. These recommendations are appropriate for inpatient admission only. Plan of care upon discharge will need to be reassessed to avoid potential outpatient hypo/hyperglycemia. Thank you.
[2019-07-16] MEDS ORDERED: FUROSEMIDE 20 MG TAB PO ONE (09:00)
--- NOTE | 2019-07-16 09:03 | Hospitalist Progress Note ---
Date of Service July 16, 2019 Assessment & Plan (1) Hepatic encephalopathy: Patient is alert awake and oriented today, Ammonia level improved with lactulose Does not have any recollection from yesterday evening Normal conversation, no confusion, no disorientation Patient reports she has been taking her lactulose as 3 times daily as directed No fever chills, no cough, no dark stool No sign of infection Continue to monitor, continue lactulose Patient presented with confusion/lethargy/altered mental status-due to hepatic/metabolic encephalopathy with hyperammonemia History of [place] cirrhosis, ammonia level elevated 100 History of noncompliance(of the 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 shows improvement, Patient's confusion, disorientation resolved, awake alert oriented, conversing appropriately/back to her baseline mental status (3) RIMA (obstructive sleep apnea): History of obstructive sleep apnea, poorly compliant with BiPAP No hypoxia, no shortness of breath or discomfort noted Continue BiPAP at night Acute CHF with diastolic failure: HFp EF: Presented with evidence of volume overload Chest x-ray shows pulmonary congestion, new development compared to chest x-ray done 2 days back on 07/13/2019 Patient reports she has been taking Lasix as needed only/was prescribed to takes Lasix 60 mg 3 times daily Patient is counseled for medication compliance, chance of respiratory failure, hypoxia and intubation which can be caused by volume overload if she does not take Lasix as directed Patient verbalized understanding Symptomatically markedly improved after IV Lasix 40 mg twice daily dose On negative balance today Change Lasix to 60 mg 3 times daily Lost low-salt diet Monitor intake and output Type 2 diabetes poorly controlled Hemoglobin A1c more than 10 History of noncompliance, family living educator consulted Insulin sliding scale Pharmacy consult for glycemic management Morbid obesity BMI more than 60 Counseling provided for diet change modification of lifestyle, exercise History of paroxysmal A. fib Continue ifdh-cadqzow-yghageq rate controlled On Xarelto for stroke prophylaxis Code status: Full code DVT prophylaxis: On Xarelto Disposition: Expected to be discharged home when medically stable Patient will benefit with home health visiting nurse given poor understanding medication instruction/noncompliance Patient's caregiver Mr. Gerg Hastings will be updated over phone Admission and Anticipated Discharge Date Admission Date: July 15, 2019 Subjective Patient is awake alert oriented today(significant change from yesterday this patient was admitted with confusion and lethargy) , sitting up on edge of bed, conversing appropriately Denies of any shortness of breath, no fever chills or cough Does not have any recollection of yesterday's events/coming to hospital Complains of headache, bilateral lower extremity neuro pathic pain, States she cannot take Tylenol, usually takes short acting oxycodone as needed for pain No complaint of chest pain, no dyspnea on exertion, no hypoxia, not requiring supplemental oxygen, vitals stable Review of Systems Review of Systems: All systems reviewed & are unremarkable except as noted in HPI & below Constitutional: no fever, no chills and no anorexia Respiratory: no cough, no dyspnea and no wheezing Cardiovascular: + chest pain, + dyspnea, + orthopnea, + palpitations, + lightheadedness and + edema Gastrointestinal: no abdominal pain, no nausea and no vomiting Neurologic: + paresthesia (Bilateral lower extremity/chronic secondary to diabetic neuropathy) and + headache(s); no dizziness, no abnormal speech and no confusion Psychiatric: no confusion Physical Exam Constitutional: WD/WN, vitals as above + obese and comfortable; no acute distress Eyes: + anicteric sclerae ENMT: external ear and nose normal, oropharynx normal Respiratory: no respiratory distress and no cough Auscultation: + diminished lung sounds; no wheezes Cardiovascular: Rate/Rhythm: regular rate and regular rhythm Gastrointestinal (Abdomen): Inspection/Auscultation: + abdomen distended and normal bowel sounds Percussion/Palpation: abdomen soft; abdomen nontender and no ascites Musculoskeletal: no cyanosis or clubbing, extremities motor strength 5/5 Skin: no rashes, warm and dry Bilateral lower extremity/chronic venous stasis changes, Neurologic: PERRL, EOMI, accommodation nl, no face palsy, no dysarthria Psychiatric: A+Ox3, euthymic affect Orientation: alert, oriented x 3 and oriented to person Eye Contact: good eye contact Speech: normal rate/rhythm/volume of speech Affect: euthymic affect Thought Process: goal directed thought process Results & Data ([facility]) Vital Signs (Past 12 Hours) Vital Signs Temp Pulse Pulse Resp BP Pulse Ox 07/16/19 07:54 36.9 C 84 20 112/71 94 07/16/19 04:06 36.8 C 78 20 96/60 L 94 07/15/19 23:05 37.1 C 81 20 105/67 95 07/15/19 22:19 84
[2019-07-16] MEDS: OXYCODONE HCL IR 5 MG TAB (IMMEDIATE RELEASE) PO PRN ×2 (09:36→19:03)
[2019-07-16] MEDS ORDERED: INSULIN GLARGINE SOLOSTAR 100 UNITS/ML 3 ML PEN SC ONE ×2 (12:15)
[2019-07-16] MEDS: FUROSEMIDE 20 MG TAB PO SCH ×2 (14:50→20:29)
[2019-07-16] MEDS ORDERED: KETOROLAC TROMETHAMINE 15 MG/ML VIAL IV ONE (14:54)
[2019-07-16] MEDS: RIVAROXABAN 20 MG TAB PO SCH (16:00)
[2019-07-16] MEDS: DULOXETINE HCL 60 MG CAP PO SCH (20:28)
[2019-07-16] MEDS: SPIRONOLACTONE 25 MG TAB PO SCH (20:32)
[2019-07-16] MEDS ORDERED: INSULIN GLARGINE SOLOSTAR 100 UNITS/ML 3 ML PEN SC SCH (22:00)
[2019-07-17] MEDS: INSULIN ASPART 100 UNITS/ML 3 ML PEN SC SCH ×4 (00:01→11:59)
[2019-07-17] MEDS: OXYCODONE HCL IR 5 MG TAB (IMMEDIATE RELEASE) PO PRN ×2 (03:13→12:00)
[2019-07-17] MEDS: LEVOTHYROXINE SODIUM 125 MCG TABLET PO SCH (05:58)
[2019-07-17 06:57] LABS: Albumin Level 2.8 gm/dl (3.4-5.0); BUN Creatinine Ratio 9.5 (10-20); Calcium 8.5 mg/dl (8.5-10.1); Creatinine Clr Calc Pharmacy 85.3 ml/min; Est GFR (Non-African American) 53.5; Potassium 3.4 mmol/L (3.5-5.1)
[2019-07-17 06:59] LABS: Albumin Globulin Ratio 0.6 (0.9-2); Bilirubin,Total 0.8 mg/dl (0.2-1); Globulin 4.6 gm/dl (2.5-4.0); Total Protein 7.4 gm/dl (6.4-8.2)
[2019-07-17] MEDS: DULOXETINE HCL 60 MG CAP PO SCH (08:01)
[2019-07-17] MEDS: FUROSEMIDE 20 MG TAB PO SCH ×2 (08:01→13:34)
[2019-07-17] MEDS: POTASSIUM CHLORIDE 10 MEQ TABCR PO SCH (08:01)
[2019-07-17] MEDS: carvediloL 12.5 MG TAB PO SCH (08:01)
[2019-07-17] MEDS: FAMOTIDINE 20 MG TAB PO SCH (08:02)
[2019-07-17] MEDS: LACTULOSE SYRUP 30 GM/45 ML UDP PO SCH ×2 (08:02→12:00)
[2019-07-17] MEDS: NYSTATIN CR 15 GM TUBE EXT SCH (08:02)
--- NOTE | 2019-07-17 08:10 | Pharmacy Report ---
Pharmacy Glycemic Short Note 2 - Date of Service July 17, 2019 - Glycemic Short BSG Results (Last 24 hours): 07/16/19 07/16/19 07/16/19 11:44 16:20 20:26 Glucose POC Glucose 205 H 191 H 266 H 07/16/19 07/17/19 07/17/19 23:55 04:24 06:31 Glucose 124 H POC Glucose 194 H 155 H 07/17/19 07:26 Glucose POC Glucose 132 H OUTPATIENT ANTIDIABETIC REGIMEN: * Basaglar 70 units BID * Trulicity 1.5 mg every Tuesday * Novolog SSI 2-30 units TIDM based on BSG 150-500 mg/dL * A1c = 10.2% 07/15/2019 ASSESSMENT: 07/17/19: * Patient's BSGs ranging 126 - 266 mg/dL over past 24 hours, received 156 units of insulin yesterday, 95 units basal * Fasting BSG this AM is well controlled at 132 mg/dL, appears ~ 100 units of basal is appropriate for patient * Post-prandial BSGs elevated yesterday, will tighten CF and CR based on patient's estimated daily basal needs 07/16/19: * 53 yo F admitted for hepatic encephalopathy * Patient is well known to pharmacy glycemic services, inpatient insulin requirements typically less than reported outpatient regimen * A1c shows uncontrolled T2DM as outpatient * Fasting BSG 142 mg/dL this AM, lunchtime increased to 205 mg/dL PLAN FOR INPATIENT GLYCEMIC CONTROL: * Basal insulin * Lantus 50 units SQ BID * Bolus insulin * NovoLog per scale ACHS or Q6hrs while NPO * Goal Range: Low 120 mg/dL - High 150 mg/dL * Correction Factor: 10 mg/dL/unit * Nutritional / Prandial insulin per carb ratio of 1 unit per 3 grams CHO consumed PLAN FOR DISCHARGE: * Agree with CDE recommendations from previous admission * Patient may benefit from a different GLP-1 agonist such as once weekly Ozempic
[2019-07-17] MEDS ORDERED: INSULIN GLARGINE SOLOSTAR 100 UNITS/ML 3 ML PEN SC SCH (09:00)
[2019-07-17] MEDS ORDERED: POTASSIUM CHLORIDE 20 MEQ TABCR PO STA (14:55)
--- NOTE | 2019-07-17 15:39 | Hospitalist Progress Note ---
Date of Service July 17, 2019 Assessment & Plan (1) Hepatic encephalopathy: resolved Patient is alert awake and oriented today, Ammonia level normalized with Lactulose 100-> 28 today pt is continued with her home dose of lactulose 30 ml /20 gm TID , titrate for 2-3 soft stool a day Normal conversation, no confusion, no disorientation pt is counselled repeatedly regarding taking medication the way its prescribed pt recovered back to her baseline just resuming her home diuretics and lactulose dose pt reports she drinks 5-6 cans of coke a day , counselling provided -should about drinking soda -due to fluid /salt content and sugar amount . instructed to limit fluid intake 1800ml /day ( 7 cups ) which includes water/tea/coffee (2) Hyperammonemia: secondary to noncompliance with lactulose, history of [place] cirrhosis Patient presented with confusion/lethargy/altered mental status-due to hepatic/metabolic encephalopathy with hyperammonemia History of [place] cirrhosis, ammonia level elevated 100 symptom resolved after treatment with Lactulose no evidence infection /GI bleed or hemodynamic compromise /LFT wnl (3) RIMA (obstructive sleep apnea): History of obstructive sleep apnea, poorly compliant with BiPAP No hypoxia, no shortness of breath or discomfort noted Continue BiPAP at night Acute CHF with diastolic failure: HFp EF: presented with decompensated CHF with vol overload due to incorrectly taking Lasix and dietary indiscretion Chest x-ray shows pulmonary congestion, new development compared to chest x-ray done 2 days back on 07/13/2019 Patient reports she has been taking Lasix as needed only/was prescribed to takes Lasix 60 mg 3 times daily Patient is counseled for medication compliance, chance of respiratory failure, hypoxia and intubation which can be caused by volume overload if she does not take Lasix as directed Patient verbalized understanding initially treated with IV Lasix 40 mg BID leading to Negative balance Change Lasix to 60 mg 3 times daily-pts home dose Lost low-salt diet Monitor intake and output Type 2 diabetes poorly controlled Hemoglobin A1c more than 10 History of noncompliance, ict educator consulted Insulin sliding scale appreciate Pharmacy consult for glycemic management Morbid obesity BMI more than 60 Counseling provided for diet change modification of lifestyle, exercise History of paroxysmal A. fib Continue tart-fzridge-mzlxfcp rate controlled On Xarelto for stroke prophylaxis Code status: Full code DVT prophylaxis: On Xarelto Disposition: stable to be discharged home today arrangements made for home health visiting nurse Admission and Anticipated Discharge Date Admission Date: July 15, 2019 Subjective awake and alert no confusion or disorientation conversing appropriately no SOB , orthopnea , no fever or chills talking over phone no hypoxia, not requiring 02 no cough feels fine stable to be discharged home today Review of Systems Review of Systems: All systems reviewed & are unremarkable except as noted in HPI & below Constitutional: no fever, no chills, no fatigue, no weakness, no anorexia, no daytime sleepiness and no problem reported Respiratory: no cough, no dyspnea, no dyspnea on exertion and no wheezing Cardiovascular: + edema (chronic bilateral lower extremity lymphedema ); no chest pain, no dyspnea, no dyspnea at rest, no orthopnea, no paroxysmal nocturnal dyspnea, no palpitations, no lightheadedness and no syncope Gastrointestinal: no abdominal pain, no nausea and no vomiting Neurologic: no gait abnormality and no confusion Physical Exam Constitutional: WD/WN, vitals as above + obese and comfortable; no acute distress ENMT: external ear and nose normal, oropharynx normal Respiratory: no respiratory distress and no cough Auscultation: + diminished lung sounds; no wheezes Cardiovascular: Rate/Rhythm: regular rate and regular rhythm Gastrointestinal (Abdomen): Inspection/Auscultation: + abdomen distended and normal bowel sounds Percussion/Palpation: abdomen soft; abdomen nontender and no ascites Musculoskeletal: no cyanosis or clubbing, extremities motor strength 5/5 Skin: no rashes, warm and dry Neurologic: PERRL, EOMI, accommodation nl, no face palsy, no dysarthria moves all extremities; no focal motor deficits Psychiatric: A+Ox3, euthymic affect Orientation: alert, oriented x 3 and oriented to person Eye Contact: good eye contact Speech: normal rate/rhythm/volume of speech Affect: euthymic affect Thought Process: goal directed thought process Results & Data ([facility]) Vital Signs (Past 12 Hours) Vital Signs Temp Pulse Pulse Pulse Resp BP Pulse Ox 07/17/19 14:57 36.8 C 104 H 73 18 123/73 93 07/17/19 11:41 36.8 C 73 18 123/73 93 07/17/19 08:24 67 07/17/19 06:41 36.3 C L 68 18 129/81 99 07/17/19 04:00 36.6 C 74 20 143/77 H 98
--- NOTE | 2019-07-17 16:51 | Discharge Summary ---
Date of Service July 17, 2019 Admission HPI Per Admitting Provider This is a 53-year-old female with complex past medical history of obstructive sleep apnea noncompliant with BiPAP, type 2 diabetes hypothyroidism diabetic polyneuropathy, [place] cirrhosis, history of paroxysmal A. fib on Xarelto Brought to the ER by her caregiver Mr. Greg Hastings, as patient was noted to be confused, lethargic for the past 2-3 days. During my interview, patient remains lethargic, opens eyes to voice, could tell me her name, does not know where she is at Information obtained from patient's caregiver Mr. Hastings over the phone As per Mr. Hastings, patient has been having episodes of confusion for the past several days, He has been giving lactulose to the patient's regularly, as prescribed, Patient was in the ER on 07/13/2019 with complaining of shortness of breath Chest x-ray was normal without any evidence of pulmonary congestion, patient was given nebulizer treatment, was discharged home Patient's caregiver mentioned yesterday night patient was more oriented, able to have a conversation, had large bowel movement, no episode of blood in stool Last night, patient woke up confused, disoriented, could not recognize her caregiver's Patient found to be very difficult to arouse In the ER: Vitals: Blood pressure 120/78, pulse 71 respiratory 22 temp 36.4/ pulse oximetry 100% in room air Lab shows: Ammonia level elevated to 100, with normal LFTs Principal Diagnosis HEPATIC ENCEPHALOPATHY /CONFUSION /HIGH AMMONIA LEVEL /ACUTE CONGESTIVE HEART FAILURE WITH DIASTOLIC DYSFUNCTION /FLUID OVERLOAD Discharge Exam Constitutional WD/WN, vitals as above + obese and comfortable; no acute distress Eyes + anicteric sclerae ENMT external ear and nose normal, oropharynx normal Respiratory no respiratory distress and no cough Auscultation: + diminished lung sounds; no wheezes Cardiovascular Rate/Rhythm: regular rate and regular rhythm Gastrointestinal (Abdomen) Inspection/Auscultation: + abdomen distended and normal bowel sounds Percussion/Palpation: abdomen soft; abdomen nontender and no ascites Musculoskeletal no cyanosis or clubbing, extremities motor strength 5/5 Skin no rashes, warm and dry Neurologic PERRL, EOMI, accommodation nl, no face palsy, no dysarthria moves all extremities; no focal motor deficits Psychiatric A+Ox3, euthymic affect Orientation: alert, oriented x 3 and oriented to person Eye Contact: good eye contact Speech: normal rate/rhythm/volume of speech Affect: euthymic affect Thought Process: goal directed thought process Discharge Data Allergies Allergy/AdvReac Type Severity Reaction Status Date / Time Iodinated Contrast Media Allergy Intermediate hives-PT Verified 07/15/19 10:50 DENIES SEE NOTE adhesive Allergy Mild RED RASH Verified 07/15/19 10:50 CAUSED BY PAPER TAPE vancomycin AdvReac Severe renal Verified 07/15/19 10:50 failure, required dialysis x 3 MONTHS acetaminophen AdvReac Intermediate Liver Verified 07/15/19 10:50 problems. alprazolam AdvReac Intermediate MAKES Verified 07/15/19 10:50 LOOPY,DO AND SAY SILLY THINGS codeine AdvReac Intermediate UPSET Verified 07/15/19 10:50 STOMACH haloperidol AdvReac Intermediate nervous Verified 07/15/19 10:50 and anxious metformin AdvReac Intermediate HANDS FEET Verified 07/15/19 10:50 FACE NUMB methylparaben AdvReac Intermediate FLUID Verified 07/15/19 10:50 RETENTION morphine AdvReac Intermediate SWELLING Verified 07/15/19 10:50 LEGS AND FEET oxymorphone AdvReac Intermediate FLUID Verified 07/15/19 10:50 RETENTION pregabalin AdvReac Intermediate Aphasia/Speech Verified 07/15/19 10:50 impairments gabapentin AdvReac Mild Aphasia/Speech Verified 07/15/19 10:50 impairments Sulfa (Sulfonamide AdvReac Mild GI SYMPTOMS Verified 07/15/19 10:50 Antibiotics) Consultations 07/15/19 13:31 ED Decision to Admit Stat 07/15/19 15:21 Consult Case Management - Discharge Planning Routine Hospital Course (1) Hepatic encephalopathy: resolved Patient is alert awake and oriented today, Ammonia level normalized with Lactulose 100-> 28 today pt is continued with her home dose of lactulose 30 ml /20 gm TID , titrate for 2-3 soft stool a day Normal conversation, no confusion, no disorientation pt is counselled repeatedly regarding taking medication the way its prescribed pt recovered back to her baseline just resuming her home diuretics and lactulose dose pt reports she drinks 5-6 cans of coke a day , counselling provided -should about drinking soda -due to fluid /salt content and sugar amount . instructed to limit fluid intake 1800ml /day ( 7 cups ) which includes water/tea/coffee (2) Hyperammonemia: secondary to noncompliance with lactulose, history of [place] cirrhosis Patient presented with confusion/lethargy/altered mental status-due to hepatic/metabolic encephalopathy with hyperammonemia History of [place] cirrhosis, ammonia level elevated 100 symptom resolved after treatment with Lactulose no evidence infection /GI bleed or hemodynamic compromise /LFT wnl (3) RIMA (obstructive sleep apnea): History of obstructive sleep apnea, poorly compliant with BiPAP No hypoxia, no shortness of breath or discomfort noted Continue BiPAP at night Acute CHF with diastolic failure: HFp EF: presented with decompensated CHF with vol overload due to incorrectly taking Lasix and dietary indiscretion Chest x-ray shows pulmonary congestion, new development compared to chest x-ray done 2 days back on 07/13/2019 Patient reports she has been taking Lasix as needed only/was prescribed to takes Lasix 60 mg 3 times daily Patient is counseled for medication compliance, chance of respiratory failure, hypoxia and intubation which can be caused by volume overload if she does not take Lasix as directed Patient verbalized understanding initially treated with IV Lasix 40 mg BID leading to Negative balance Change Lasix to 60 mg 3 times daily-pts home dose Lost low-salt diet Monitor intake and output Type 2 diabetes poorly controlled Hemoglobin A1c more than 10 History of noncompliance, 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 fib Continue tkos-[id number]-[id number] rate controlled On Xarelto for stroke prophylaxis Code status: Full code DVT prophylaxis: On Xarelto Disposition: stable to be discharged home today arrangements made for home health visiting nurse Total Time Total Time Spent Total Time Spent (In Minutes): 40 mins Total Time Includes: Examination of the Patient, Discharge Planning and Medication Reconciliation Discharge Plan Discharge Items Patient Disposition: Home - Home Health Services Reason For Visit: CONFUSION,HIGH AMMONIA LEVEL Discharge Diagnosis: HEPATIC ENCEPHALOPATHY /CONFUSION /HIGH AMMONIA LEVEL /ACUTE CONGESTIVE HEART FAILURE WITH DIASTOLIC DYSFUNCTION /FLUID OVERLOAD Activity: Resume your previous activity Non-emergency contact: Primary Care Provider Call non-emergency contact if: you have any medication questions Follow-up/Referrals: Dewey Mcfadden DO [Primary Care Provider] - 07/20/19 9:15 am Diet: Heart Healthy and Low Sodium (2gm) Fluids: 1800ml (7 cups) Addtl Attending Provider Instructions: Is very important for you to take medications especially lactulose, your diuretics Lasix and Aldactone as prescribed LASIX 60 MG TAKE 1 TABLET BY MOUTH 3 TIMES DAILY ALDACTONE 25 MG TAKE 1 TABLET BY MOUTH AT NIGHT LACTULOSE 30 ML TAKE BY MOUTH 3 TIMES DAILY TITRATE TO HAVE AT LEAST 23 SOFT BOWEL MOVEMENT A DAY Call your Primary Care doctor if any of the following symptoms or problems start or get worse: * Shortness of breath or difficulty breathing * Wake up at night short of breath * Chest pain * Cough * Swelling of your hands, feet, or legs * More fatigued or tired with your normal activity * Palpitations - sudden fast heart beats WEIGHT * Weigh yourself every morning after using the bathroom. * Use the same scale. * Wear the same amount of clothing. * Write your weight down on a chart. * Call your Primary Care doctor if you gain more than 2-3 pounds in 1-2 days. MEDICATIONS * Use this discharge instruction sheet for medication instructions. * Take your medications at the time your doctor ordered. * Do not skip a dose of your medicines. * If you miss a dose of medicine, take it as soon as possible, but DO NOT DOUBLE A DOSE. * Read your medicine information when you get home. * Know all of the side effects of your medicine. If in doubt, ask your pharmacist * Call your Primary Care doctor's office if you have any side effects. * Be sure all of your doctors know what medicine and herbs you take (including cold, flu, and herbal medicine). Take the following with you to your follow-up doctor appointments: * Weight Chart * Medication List * List of questions Do not drink excessive alcohol, beer or wine. Limit fluid intake: 1800 mL / 7 cup a day-which includes water, coffee, juice, any other beverages Addtl Coordinator Integrated Marketing Provider Instructions: Coronavirus disease 2019 (COVID-19) is a virus that causes a respiratory illn ess. It is caused by a coronavirus called 2019 novel coronavirus (2019-nCoV). There are many types of coronavirus. Coronaviruses are a very common cause of bronchitis. They may sometimes cause lung infection(pneumonia). Symptoms can range from mild to severe respiratory illness. These viruses are also foundin some animals. COVID-19 was first found in people in [facility], in late 2019. In 2020, several cases of COVID-19 have been confirmed in the [place] Public health officials are working to find the source. How the virus spreads is not yet fully known. It may be spread through droplets of fluid that a person coughs or sneezes into the air. It may be spread if you touch a surface with virus on it, such as a handle or object, and then touch your mouth. What are the symptoms of COVID-19? Some people have no symptoms or mild symptoms. Symptoms may appear 2 to 14 days after contact with the virus. Symptoms can include: Fever Coughing Trouble breathing What are possible complications from COVID-19? In many cases, this virus can cause infection (pneumonia) in both lungs. In some cases, this can cause . How is COVID-19 diagnosed? Your healthcare provider will ask about your symptoms. He or she will also ask about your recent travel and contact with sick people. Testing for the virus is only done through the [facility]. If yourhealthcare provider thinks you may have COVID- 19, he or she will work with your local health department and the CDC on testing. Follow all instructions from your healthcare provider. COVID-19 is diagnosed by: Nasal and throat swab. A cotton-tipped swab is wiped inside your nose or throat. This is done to check for viruses in your nasal mucus. Sputum culture. A small sample of mucus coughed from your lungs (sputum) is collected if you have a cough. It is checked for the virus. How is COVID-19 treated? There is currently no medicine to treat the virus. Treatment is done to help your body while it fights the virus. This is known as supportive care. Supportive care may include: Pain medicine. These include acetaminophen and ibuprofen. They are used to help ease pain and reduce fever. Bed rest. This helps your body fight the illness. For severe illness, you may need to stay in the hospital. Care during severe illness may include: IV (intravenous) fluids.These are given through a vein to help keep your body hydrated. Oxygen. Supplemental oxygen or ventilation with a breathing machine (ventilator) may be given. This is done to keep enough oxygen in your body. Are you at risk for COVID-19? If youve been to a place where people have been sick with this virus, you are at risk for infection. You are at risk if you: Recently traveled to an affected area Had contact with a sick person who recently traveled to this area Had contact with a person who was diagnosed with COVID-19 How can COVID-19 be prevented? There is no vaccine yet. The best prevention is to not have contact with the virus. The CDC advises that people should not travel to areas where there are COVID-19 outbreaks right now for any reason that is not urgent. To help prevent spreading the infection, wash your hands often, or use an alcohol-basedhand research dietitian. If you are in an area with COVID-19: Wash your hands often. Or use an alcohol-based hand research dietitian often. Only touch your eyes, nose, or mouth with clean hands. Dont have contact with people who are sick. Follow local instructions about being in public. For example, you may be told to not use public transport for a period of time. Stay away from markets that have live or animals. Wash your hands after touching any animals. Don't touch animals that may be sick. Dont share eating or drinking tools with sick people. Dont kiss someone who is sick. Clean surfaces often with disinfectant. If you were in an area with COVID-19 in the last 14 days: Call your healthcare provider. He or she can talk with local health staff to see what action may be needed. Follow all instructions from your provider. Take your temperature every morning and evening for at least 14 days. This is to check for fever. Keep a record of the readings. Keep watch for symptoms of the virus. Tell your provider right away if you have symptoms. If you were in an area with COVID-19 and have a fever or other symptoms: Dont panic. Keep in mind that other illnesses can cause similar symptoms. Stay away from work, school, and public places. Limit physical contact with family members. Don't kiss anyone or share eating or drinking utensils. Clean surfaces you touch with disinfectant. This is to help prevent the virus from spreading. Call your healthcare provider. Explain that you have been exposed to COVID-19 and have symptoms. Do this before going to any hospital. Wait for instructions. Keep in mind that healthcare staff may wear protective equipment such as masks, gowns, gloves, and eye protection. You may be put in a separate room. This is to prevent the possible virus from spreading. Tell the healthcare staff about recent travel. This includes local travel on public transport. Staff may need to find other people you have been in contact with. Follow all instructions the healthcare staff give you. If you have been diagnosed with COVID-19 Follow all instructions from your healthcare provider. Dont leave your home, except to get medical care. Call your healthcare providers office before going. They can prepare and give you instructions. This will help prevent the virus from spreading. Dont go to work, school, or public areas. Dont use public transport or taxis. Stay away from other people in your home. Have them wear face masks around you. Dont share household items or food. Wear a face mask if you can. This includes at home or in a medical facility. Cover your face with a tissue when you cough or sneeze. Throw the tissue away. Wash your hands. Wash your hands often. Caregivers should: Follow all instructions from healthcare staff. Wear a face mask and protective clothing as advised. Wash hands often. Keep track of the sick persons symptoms. Clean surfaces, fabrics, and laundry thoroughly. Keep other people away from the sick person. When to call your healthcare provider Call your healthcare provider: If youve recently traveled and have symptoms If you have been diagnosed with COVID-19 and your symptoms are worse To learn more To find out more about COVID-19, visit the CDC website at www.cdc.gov/coronavirus/2019-ncov/index.html. 0399-6[address] [email or web address]. [address] [place] [address]. All rights reserved. This information is not intended as a substitute for professional medical care. Always follow your healthcare professional's instructions. This information has been adapted from [employer] Pending Studies at Discharge: No Stand-Alone Forms: [facility] [email or web address], Smoking Cessation Medications and DC Order Prescriptions: New lactulose 20 gram/30 mL Solution 30 ml PO TID Qty: 350 RF: 3 Continued spironolactone [Aldactone] 25 mg tablet 25 mg PO HS RF: 0 potassium chloride 10 mEq capsule, extended release 10 meq PO BID RF: 0 prochlorperazine maleate [Compazine] 5 mg tablet 5 mg PO TID PRN (Reason: Nausea) RF: 0 metoclopramide HCl [Reglan] 5 mg Tablet 5 mg PO AC RF: 0 insulin aspart U-100 [Novolog Flexpen U-100 Insulin] 100 unit/mL (3 mL) insulin pen 2 - 30 unit SUBCUT TIDM RF: 0 duloxetine [Cymbalta] 60 mg capsule,delayed release(DR/EC) 60 mg PO BID RF: 0 Xarelto 20 mg tablet 20 mg PO QDD RF: 0 furosemide [Lasix] 20 mg Tablet 60 mg PO TID RF: 0 Basaglar KwikPen U-100 Insulin 100 unit/mL (3 mL) insulin pen 70 unit SUBCUT BID Qty: 0 RF: 0 carvedilol 12.5 mg Tablet 12.5 mg PO BID RF: 0 nortriptyline [Pamelor] 25 mg Capsule 25 mg PO HS RF: 0 ranitidine HCl 300 mg Tablet 300 mg PO HS RF: 0 levothyroxine [Synthroid] 125 mcg Tablet 125 mcg PO DAILYBB RF: 0 nystatin 100,000 unit/gram Cream 1 applic TOPICAL BID RF: 0 mirtazapine [Remeron] 15 mg Tablet 15 mg PO HS RF: 0 hydroxyzine HCl 10 mg Tablet 10 mg PO Q6H PRN (Reason: Anxiety) RF: 0 Trulicity 1.5 mg/0.5 mL pen injector 1.5 mg SUBCUT MO RF: 0 Discharge Orders: Discharge Order (Routine); Ordered 07/17/19 Ordered By: Dali Luo/Other Patient Handouts: Diabetes Supply Chain Buyer Complications, Diabetes Healthy Meals, Understanding Carbohydrates, Diabetes Exercise Benefits, Diabetes Manage A1C Test Admission Data Admit Date/Time: 07/15/19 14:11 Attending Provider: Dali Boss Admit Provider: Dali Boss Primary Care Provider: Dewey Mcfadden Other Providers: Dali Boss ; [facility] Other Interventions: Discharge Summary Assessment (RN) Last Done: 07/17/19 14:57 DC Date/Time DO NOT enter until pt leaves facility: 07/17/19 15:40
[2019-07-17 23:10] LABS: Codeine Urine NEGATIVE ng/mL (<50); Hydrocodone Urine 2030 ng/mL (<50); Hydromor Urine 66 ng/mL (<50); Morphine Urine NEGATIVE ng/mL (<50); Norhydrocodone Conf Ur 677 ng/mL (<50); Noroxycodone Urine NEGATIVE ng/mL (<50); Oxycodone Urine NEGATIVE ng/mL (<50); Oxymorph Urine NEGATIVE ng/mL (<50)
== END 2019-07-17 15:40 | disposition home health service (06) | DRG 441 ==
LOC: ED 10:06 → 2N 14:11

== ENCOUNTER 2019-08-12 12:39 | Inpatient (IN) ==
[2019-08-12] MEDS ORDERED: SODIUM CHLORIDE 0.9% 1000ML 250 ML IV ONE (13:19)
--- NOTE | 2019-08-12 13:32 | Emergency Department Note ---
History of Present Illness General Chief complaint: Abnormal Labs/Diagnostic Testing Stated complaint: AMMONIA LEVELS ARE HIGH Time Seen by Provider: 08/12/19 13:09 Source: patient and family Limitations: altered mental status History of Present Illness Provider complaint: Confusion Onset (ago): hour(s) (This morning) Location: head Severity: moderate Maximum Pain Intensity: 4 Quality: + other (Confusion) Relieved By: + none Associated symptoms: no cough, no fever/chills, no nausea/vomiting and no shortness of breath This is a 53-year-old female with a history of hepatic encephalopathy and nonalcoholic cirrhosis presenting with altered mental status this morning. The patient is reported by her to have seen a little off each morning for the past several days. Today the patient was even more confused and when she tried to pull down her jeans off of a stock hanger she was doing it in a manner that broke the hangers. He was concerned about hepatic encephalopathy and brought her here. She has had no fever, difficulty breathing, cough or flulike symptoms or vomiting. She was admitted to the hospital last month for similar symptoms. He does state that she has been taking her lactulose. Home Medications Home Medications Medication Instructions Recorded Confirmed Type Xarelto 20 mg PO DAILY 03/12/19 08/01/19 History duloxetine [Cymbalta] 60 mg PO BID 03/12/19 08/01/19 History furosemide [Lasix] 60 mg PO QAM 03/12/19 08/01/19 History insulin aspart U-100 [Novolog 2 - 30 unit SUBCUT TIDM 03/12/19 08/01/19 History Flexpen U-100 Insulin] potassium chloride 10 meq PO BID 03/12/19 08/01/19 History prochlorperazine maleate 5 mg PO TID PRN 03/12/19 08/01/19 History [Compazine] carvedilol 12.5 mg PO BID 03/21/19 08/01/19 History nortriptyline [Pamelor] 25 mg PO HS 03/21/19 08/01/19 History spironolactone [Aldactone] 25 mg PO HS 07/05/19 08/01/19 History Trulicity 1.5 mg SUBCUT WK 07/13/19 08/01/19 History hydroxyzine HCl 10 mg PO Q6H PRN 07/13/19 08/01/19 History mirtazapine [Remeron] 15 mg PO HS 07/13/19 08/01/19 History nystatin 1 applic TOPICAL BID 07/13/19 08/01/19 History Basaglar ErnstikPen U-100 Insulin 90 unit SUBCUT BID 08/01/19 08/01/19 History albuterol sulfate [Ventolin HFA] 2 puff INHALATION Q4H PRN 08/01/19 08/01/19 History baclofen 10 mg PO BID 08/01/19 08/01/19 History ferrous sulfate 325 mg PO QAM 08/01/19 08/01/19 History lactulose [Constulose] 30 ml PO TID 08/01/19 08/01/19 History levothyroxine 150 mcg PO QAM 08/01/19 08/01/19 History pantoprazole 40 mg PO QAM 08/01/19 08/01/19 History ranitidine HCl 150 - 300 mg PO HS 08/01/19 08/01/19 History Allergies Allergy/AdvReac Type Severity Reaction Status Date / Time Iodinated Contrast Media Allergy Intermediate hives-PT Verified 07/31/19 16:52 DENIES SEE NOTE adhesive Allergy Mild RED RASH Verified 07/31/19 16:52 CAUSED BY PAPER TAPE vancomycin AdvReac Severe renal Verified 07/31/19 16:52 failure, required dialysis x 3 MONTHS acetaminophen AdvReac Intermediate Liver Verified 07/31/19 16:52 problems. alprazolam AdvReac Intermediate MAKES Verified 07/31/19 16:52 LOOPY,DO AND SAY SILLY THINGS codeine AdvReac Intermediate UPSET Verified 07/31/19 16:52 STOMACH haloperidol AdvReac Intermediate nervous Verified 07/31/19 16:52 and anxious metformin AdvReac Intermediate HANDS FEET Verified 07/31/19 16:52 FACE NUMB methylparaben AdvReac Intermediate FLUID Verified 07/31/19 16:52 RETENTION morphine AdvReac Intermediate SWELLING Verified 07/31/19 16:52 LEGS AND FEET oxymorphone AdvReac Intermediate FLUID Verified 07/31/19 16:52 RETENTION pregabalin AdvReac Intermediate Aphasia/Speech Verified 07/31/19 16:52 impairments gabapentin AdvReac Mild Aphasia/Speech Verified 07/31/19 16:52 impairments Sulfa (Sulfonamide AdvReac Mild GI SYMPTOMS Verified 07/31/19 16:52 Antibiotics) Past Med/Surg History Medical History Anemia (Acute) HX OF AND NO PROBLEMS Atrial fibrillation by electrocardiogram (Acute) DX: 2013 TAKES XARELTO AND FOLLOW WITH MEDICAL DOCTOR Chronic low back pain (Acute) Cirrhosis MEDICAL 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) RIGHT AND LEFT LEG AND THEN MOVED LUNG - 2001 Diabetes Diabetic neuropathy (Chronic 01/04/11) Gastritis (Acute) GI bleed (Acute) HX OF AND NO CURRENT PROBLEMS Hypothyroidism (Acute) Kidney stone HX OF AND HAD LITHOTRIPSY Obesity (Acute) RIMA (obstructive sleep apnea) HX OF AND NO CURRENT PROBLEM Surgical History Hx of lithotripsy Hx of ventral hernia repair Family History Other Family history non-contributory Social History Preferred Language: Arabic Communication Ability: Effective Cooker Sulfate Required: No Beliefs That Will Affect Care: None Current Living Situation: Other Current Living Situation Comment: friend/caregiver herbert vaughan current occupational status: disabled Feels Safe at Home: Yes Smoking Status: Current every day smoker Tobacco Type: cigarettes and e- cigarettes ; Cigarettes Per Day: 1/2 PPD ; Second Hand Exposure: No ; Hx Alcohol Use: No Hx Substance Use: No Review of Systems See HPI for pertinent positives & negatives. Unobtainable due to cognitive status Physical Exam Vital Signs Vital Signs - 24 hr 08/12/19 12:45 08/12/19 14:01 08/12/19 14:34 Temperature 36.7 C Temperature Source Oral Pulse Rate 75 69 69 Pulse Rate from SpO2 Sensor 69 69 Respiratory Rate 20 12 13 Blood Pressure 113/70 121/66 101/77 Blood Pressure Mean 84 84 82 Pulse Oximetry 100 95 94 Oxygen Delivery Method Room Air Room Air Room Air Sepsis Recent Fever Within 48 Hours No Sepsis New/Unexplained Change in Mental Status No Sepsis Action Taken by Nursing No Action Required Constitutional: Vital signs reviewed. Eyes: Pupils are equal round reactive to light. Conjunctiva are noninjected. ENT: Pharynx is clear without erythema or exudate. Mucous membranes are dry. Neck supple without meningeal signs. Respiratory: Clear to auscultation bilaterally. Breath sounds are equal vijaya aterally. Cardiovascular: Regular rate and rhythm. No rubs or gallops. GI: Soft, nondistended and nontender. Bowel sounds are present. Musculoskeletal: No peripheral edema. Integumentary: No cyanosis. or jaundice. Neurological: The patient is somnolent but opens her eyes and answers yes or no questions. She does follow commands. Positive asterixis. Psychiatric: Unable to assess. Course Administered Medications Discontinued Medications Sodium Chloride (Nss 1000ml) 250 mls @ 999 mls/hr IV .Q16M ONE Stop: 08/12/19 13:34 Last Infusion: 08/12/19 13:56 Dose: 0 mls/hr Documented by: [id number] Admin: 08/12/19 13:38 Dose: 999 mls/hr Documented by: [id number] Medical Decision Making Differential Diagnosis Hyperammonemia, hepatic encephalopathy, metabolic encephalopathy, infection, pneumonia, UTI, medication noncompliance Medical Records Attestation: I reviewed the patient's medical records. I did perform a limited focused review of portions of the patient's old chart on the electronic medical record. The patient was admitted to the hospital July 14 for hepatic encephalopathy. Her ammonia was 100 at that time. She has subsequently returned here 3 times this month for various complaints including shortness of breath and fall. She has been worked up and was discharged home each time. Home Medications Current Medication List: was personally reviewed by me Laboratory Data Attestation: I reviewed the patient's lab results. Result diagrams: 08/12/19 13:36 08/12/19 13:36 Lab Results 08/12/19 08/12/19 08/12/19 Range/Units 13:36 13:36 13:36 WBC (4.8-10.8) K/uL RBC (4.2-5.4) M/uL Hgb (12.0-16.0) g/dL Hct (37-47) % MCV (80-100) fL MCH (25-34) pg MCHC (32-36) g/dL RDW Std Deviation (36.4-46.3) fL RDW Coeff of Mari (11.5-14.5) % Plt Count (130-400) K/uL MPV (7.4-10.4) fL Immature Gran % (Auto) % Neut % (Auto) % Lymph % (Auto) % Vilas % (Auto) % Eos % (Auto) % Baso % (Auto) % Immature Gran # (Auto) (0.00-0.02) K/uL Neut # (Auto) (1.4-6.5) K/uL Lymph # (Auto) (1.2-3.4) K/uL Vilas # (Auto) (0.11-0.59) K/uL Eos # (Auto) (0-0.5) K/uL Baso # (Auto) (0-0.2) K/uL Polychromasia Anisocytosis PT 12.0 (9.0-12.0) Seconds INR 1.1 (0.9-1.1) APTT 30.8 (21.0-31.0) Seconds PTT Ratio 1.1 Sodium 139 (136-145) mmol/L Potassium 3.1 L (3.5-5.1) mmol/L Chloride 102 (98-107) mmol/L Carbon Dioxide 30 (21-32) mmol/L Anion Gap 7.0 (3-11) BUN 12 (7-18) mg/dl Creatinine 1.19 (0.6-1.2) mg/dl Est Cr Clr Drug Dosing Not Reportable Est GFR ( Amer) 59.5 Est GFR (Non-Af Amer) 51.4 BUN/Creatinine Ratio 9.8 L (10-20) Glucose 195 H (70-99) mg/dl Calcium 9.5 (8.5-10.1) mg/dl Total Bilirubin 0.7 (0.2-1) mg/dl AST 30 (15-37) U/L ALT 33 (12-78) U/L Alkaline Phosphatase 173 H (45-117) U/L Ammonia 107.1 H (11-32) umol/L Total Protein 7.2 (6.4-8.2) gm/dl Albumin 2.7 L (3.4-5.0) gm/dl Globulin 4.5 H (2.5-4.0) gm/dl Albumin/Globulin Ratio 0.6 L (0.9-2) //20 Range/Units 13:36 WBC 7.41 (4.8-10.8) K/uL RBC 3.85 L (4.2-5.4) M/uL Hgb 11.1 L (12.0-16.0) g/dL Hct 35.4 L (37-47) % MCV 91.9 (80-100) fL MCH 28.8 (25-34) pg MCHC 31.4 L (32-36) g/dL RDW Std Deviation 67.2 H (36.4-46.3) fL RDW Coeff of Mari 20.4 H (11.5-14.5) % Plt Count 168 (130-400) K/uL MPV 9.1 (7.4-10.4) fL Immature Gran % (Auto) 0.4 % Neut % (Auto) 54.6 % Lymph % (Auto) 30.0 % Vilas % (Auto) 10.7 % Eos % (Auto) 4.0 % Baso % (Auto) 0.3 % Immature Gran # (Auto) 0.03 H (0.00-0.02) K/uL Neut # (Auto) 4.05 (1.4-6.5) K/uL Lymph # (Auto) 2.22 (1.2-3.4) K/uL Vilas # (Auto) 0.79 H (0.11-0.59) K/uL Eos # (Auto) 0.30 (0-0.5) K/uL Baso # (Auto) 0.02 (0-0.2) K/uL Polychromasia 1+ Anisocytosis Present PT (9.0-12.0) Seconds INR (0.9-1.1) APTT (21.0-31.0) Seconds PTT Ratio Sodium (136-145) mmol/L Potassium (3.5-5.1) mmol/L Chloride (98-107) mmol/L Carbon Dioxide (21-32) mmol/L Anion Gap (3-11) BUN (7-18) mg/dl Creatinine (0.6-1.2) mg/dl Est Cr Clr Drug Dosing Est GFR ( Amer) Est GFR (Non-Af Amer) BUN/Creatinine Ratio (10-20) Glucose (70-99) mg/dl Calcium (8.5-10.1) mg/dl Total Bilirubin (0.2-1) mg/dl AST (15-37) U/L ALT (12-78) U/L Alkaline Phosphatase (45-117) U/L Ammonia (11-32) umol/L Total Protein (6.4-8.2) gm/dl Albumin (3.4-5.0) gm/dl Globulin (2.5-4.0) gm/dl Albumin/Globulin Ratio (0.9-2) Imaging Data Radiologist's Impression: XR chest 1V portable HISTORY: 53 years-old Female ams eval for pna acutely altered mental status COMPARISON: Chest radiograph 08/01/2019 TECHNIQUE: Portable AP view of the chest FINDINGS: Cardiomegaly is unchanged. Mild pulmonary vascular congestion. No pneumothorax, large pleural effusion or overt pulmonary edema. Minimal left lung base opacities suggest atelectasis. Degenerative changes of the shoulders and spine. IMPRESSION: Cardiomegaly with mild pulmonary vascular congestion. ACT 112: Negative or not required by law. The above report was generated using voice recognition software. It may contain grammatical, syntax or spelling errors. Electronically signed by: Rancho Rees M.D. 08/12/2019 1:33 PM Blood Pressure Blood Pressure Findings: Normal blood pressure MDM Narrative I did evaluate the patient as noted above. The patient is brought in by her for altered mental status. I did obtain history from the patient as well as her due to her altered mental status. She does have a history of hepatic encephalopathy and shows asterixis here. IV access was established. The patient was placed on a continuous milk processing worker. I did order and personally reviewed the images of the patient's chest x-ray as described above. There is no evidence of pneumonia. I did order a urine analysis. I did order and review the patient's blood work as noted in the electronic medical record. CBC demonstrates chronic anemia. She also has hypokalemia which may be from the diarrhea she has been having from her lactulose. Her ammonia unfortunately is over 107. I did discuss the test results with the patient. She is not severely confused and even asked what the value of her ammonia was. She was given IV potassium as well as lactulose p.o. I did discuss the case with the hospitalist and case loader operator. 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, Acute hypokalemia Forms Stand Alone Forms: My [facility] Prescriptions Prescriptions: No Action spironolactone [Aldactone] 25 mg tablet 25 mg PO HS RF: 0 lactulose [Constulose] 10 gram/15 mL solution 30 ml PO TID RF: 0 Basaglar KwikPen U-100 Insulin 100 unit/mL (3 mL) insulin pen 90 unit SUBCUT BID RF: 0 baclofen 10 mg tablet 10 mg PO BID RF: 0 pantoprazole 40 mg tablet,delayed release (DR/EC) 40 mg PO QAM RF: 0 ferrous sulfate 325 mg (65 mg iron) tablet 325 mg PO QAM RF: 0 levothyroxine 150 mcg tablet 150 mcg PO QAM RF: 0 albuterol sulfate [Ventolin HFA] 90 mcg/actuation HFA aerosol inhaler 2 puff inhalation Q4H PRN (Reason: Shortness Of Breath) RF: 0 ranitidine HCl 150 mg tablet 150 - 300 mg PO HS RF: 0 potassium chloride 10 mEq capsule, extended release 10 meq PO BID RF: 0 prochlorperazine maleate [Compazine] 5 mg tablet 5 mg PO TID PRN (Reason: Nausea) RF: 0 insulin aspart U-100 [Novolog Flexpen U-100 Insulin] 100 unit/mL (3 mL) insulin pen 2 - 30 unit SUBCUT TIDM RF: 0 duloxetine [Cymbalta] 60 mg capsule,delayed release(DR/EC) 60 mg PO BID RF: 0 Xarelto 20 mg tablet 20 mg PO DAILY RF: 0 furosemide [Lasix] 20 mg Tablet 60 mg PO QAM RF: 0 carvedilol 12.5 mg Tablet 12.5 mg PO BID RF: 0 nortriptyline [Pamelor] 25 mg Capsule 25 mg PO HS RF: 0 nystatin 100,000 unit/gram Cream 1 applic TOPICAL BID RF: 0 mirtazapine [Remeron] 15 mg Tablet 15 mg PO HS RF: 0 hydroxyzine HCl 10 mg Tablet 10 mg PO Q6H PRN (Reason: Anxiety) RF: 0 Trulicity 1.5 mg/0.5 mL pen injector 1.5 mg SUBCUT WK RF: 0 Referrals Referrals: Dewey Mcfadden DO [Primary Care Provider] - Discharge Problem: Anemia Qualifiers: Anemia type: unspecified type Qualified Code(s): D64.9 - Anemia, unspecified
--- NOTE | 2019-08-12 13:34 | XRay Report ---
XR chest 1V portable HISTORY: 53 years-old Female ams eval for pna acutely altered mental status COMPARISON: Chest radiograph 08/01/2019 TECHNIQUE: Portable AP view of the chest FINDINGS: Cardiomegaly is unchanged. Mild pulmonary vascular congestion. No pneumothorax, large pleural effusio n or overt pulmonary edema. Minimal left lung base opacities suggest atelectasis. Degenerative change s of the shoulders and spine. IMPRESSION: Cardiomegaly with mild pulmonary vascular congestion. ACT 112: Negative or not required by law. The above report was generated using voice recognition software. It may contain grammatical, syntax o r spelling errors. Electronically signed by: Rancho Rees M.D. 08/12/2019 1:33 PM
[2019-08-12 13:51] LABS: Basophils # (auto) 0.02 K/uL (0-0.2); Basophils % (auto) 0.3 %; Hematocrit (blood only) 35.4 % (37-47); Hemoglobin 11.1 g/dL (12.0-16.0); Immature Granulocytes # (auto) 0.03 K/uL (0.00-0.02); Immature Granulocytes % (auto) 0.4 %; Lymphocytes # (auto) 2.22 K/uL (1.2-3.4); Mean Corpuscular Hemoglobin 28.8 pg (25-34); Mean Corpuscular Hgb Conc 31.4 g/dL (32-36); Mean Corpuscular Volume 91.9 fL (80-100); Mean Platelet Volume 9.1 fL (7.4-10.4); Monocytes # (auto) 0.79 K/uL (0.11-0.59); Monocytes % (auto) 10.7 %; Neutrophils # (auto) 4.05 K/uL (1.4-6.5); Neutrophils % (auto) 54.6 %; Platelet Count 168 K/uL (130-400); RDW Coefficient of Variation 20.4 % (11.5-14.5); RDW Standard Deviation 67.2 fL (36.4-46.3); Red Blood Count 3.85 M/uL (4.2-5.4); White Blood Count 7.41 K/uL (4.8-10.8)
[2019-08-12 14:05] LABS: Alanine Aminotransferase 33 U/L (12-78); Albumin Level 2.7 gm/dl (3.4-5.0); Aspartate Aminotransferase 30 U/L (15-37); BUN Creatinine Ratio 9.8 (10-20); Blood Urea Nitrogen 12 mg/dl (7-18); Calcium 9.5 mg/dl (8.5-10.1); Carbon Dioxide 30 mmol/L (21-32); Chloride 102 mmol/L (98-107); Est GFR (African American) 59.5; Est GFR (Non-African American) 51.4; Glucose 195 mg/dl (70-99); Potassium 3.1 mmol/L (3.5-5.1); Sodium 139 mmol/L (136-145)
[2019-08-12 14:08] LABS: Albumin Globulin Ratio 0.6 (0.9-2); Alkaline Phosphatase 173 U/L (45-117); Bilirubin,Total 0.7 mg/dl (0.2-1); Globulin 4.5 gm/dl (2.5-4.0); Total Protein 7.2 gm/dl (6.4-8.2)
[2019-08-12 14:18] LABS: INR 1.1 (0.9-1.1); Partial Thromboplastin Ratio 1.1; Partial Thromboplastin Time 30.8 Seconds (21.0-31.0)
[2019-08-12 14:22] LABS: Anisocytosis Present; Polychromasia 1+
[2019-08-12] MEDS ORDERED: POTASSIUM CHLORIDE / WTR 10 MEQ/100 ML PLCT IV ONE (14:22)
[2019-08-12] MEDS ORDERED: LACTULOSE SYRUP 30 GM/45 ML UDP PO STA (14:22)
--- NOTE | 2019-08-12 16:00 | History & Physical Report ---
Date of Service August 12, 2019 Assessment & Plan (1) AMS (altered mental status): (2) Liver cirrhosis secondary to [place]: (3) Hyperammonemia: (4) Hepatic encephalopathy: Hepatic encephalopathy Elevated ammonia level No fevers or leukocytosis Hold antibiotics for now Get Urinalysis Get diagnostic paracentesis to rule out SBP Lactulose QID to ensure at least 3-4 bowel movement Replete hypokalemia Monitor neurologic status Patient may benefit from rifaximin since this is the second episode in a month. Will appreciate GI evaluation and recommendations with respect to this and further evaluation MELD-Na 10 (5) Hypokalemia: K is 3.1 Likely related to diuretics and lactulose Replete and monitor Check Mg level (6) Chronic diastolic CHF (congestive heart failure): Due to body habitus, it is tough to assess volume overload. However, from exam, labs and imaging, patient appears euvolemic Will continue home diuretics, coreg (7) Morbid obesity: (8) RIMA (obstructive sleep apnea): Per chart review from recent admission, patient has not been adherent with BIPAP Patient not sure about BIPAP or use at home when asked. BIPAP HS for now. Will reassess when mental status improves (9) Hypothyroidism: Continue home levothyroxine. (10) DM2 (diabetes mellitus, type 2): Basaglar was recently increased to 90U BID per review of chart from ER visits since last admission Will continue this and insulin sliding scale per protocol Monitor blood glucose Paroxysmal Afib On xarelto at home Continue History of Present Illness 53-year-old female with complex past medical history of obstructive sleep apnea noncompliant with BiPAP, type 2 diabetes hypothyroidism diabetic polyneuropathy, [place] cirrhosis, history of paroxysmal A. fib on Xarelto Presented to the emergency room for altered mental status reported to have started this morning. Patient reported that she was feeling more confused this morning and slow. Patient is alert and oriented to person, place, month and year only. She responds appropriately but sluggishly. Poor historian at this time. Rest of the history obtained from ER physician who interacted with patient's friend. Calls to next of contact were unanswered. Patient was reported to be confused this morning. This was reported to have been worsening over the past few days and was more confused this morning necessitating ER presentation. Patient reports she is adherent with all her medications. Does report some nausea, chronic intermittent abdominal discomfort and loose stool which she related to her lactulose Denied any fevers, chills Denied any vomiting, melena, hematochezia Reports occasional dysuria but none recently. Denied frequency, urgency, incontinence Denied any cough or shortness of breath or chest pain Smokes 1ppd Denied alcohol, illicit drug or OTC drug use Denied any sick contact Primary Care Provider: Dewey Mcfadden DO Allergies Allergy/AdvReac Type Severity Reaction Status Date / Time Iodinated Contrast Media Allergy Intermediate hives-PT Verified 07/31/19 16:52 DENIES SEE NOTE adhesive Allergy Mild RED RASH Verified 07/31/19 16:52 CAUSED BY PAPER TAPE vancomycin AdvReac Severe renal Verified 07/31/19 16:52 failure, required dialysis x 3 MONTHS acetaminophen AdvReac Intermediate Liver Verified 07/31/19 16:52 problems. alprazolam AdvReac Intermediate MAKES Verified 07/31/19 16:52 LOOPY,DO AND SAY SILLY THINGS codeine AdvReac Intermediate UPSET Verified 07/31/19 16:52 STOMACH haloperidol AdvReac Intermediate nervous Verified 07/31/19 16:52 and anxious metformin AdvReac Intermediate HANDS FEET Verified 07/31/19 16:52 FACE NUMB methylparaben AdvReac Intermediate FLUID Verified 07/31/19 16:52 RETENTION morphine AdvReac Intermediate SWELLING Verified 07/31/19 16:52 LEGS AND FEET oxymorphone AdvReac Intermediate FLUID Verified 07/31/19 16:52 RETENTION pregabalin AdvReac Intermediate Aphasia/Speech Verified 07/31/19 16:52 impairments gabapentin AdvReac Mild Aphasia/Speech Verified 07/31/19 16:52 impairments Sulfa (Sulfonamide AdvReac Mild GI SYMPTOMS Verified 07/31/19 16:52 Antibiotics) Home Medications Home Medications Medication Instructions Recorded Confirmed Type Xarelto 20 mg PO DAILY 03/12/19 08/01/19 History duloxetine [Cymbalta] 60 mg PO BID 03/12/19 08/01/19 History furosemide [Lasix] 60 mg PO QAM 03/12/19 08/01/19 History insulin aspart U-100 [Novolog 2 - 30 unit SUBCUT TIDM 03/12/19 08/01/19 History Flexpen U-100 Insulin] potassium chloride 10 meq PO BID 03/12/19 08/01/19 History prochlorperazine maleate 5 mg PO TID PRN 03/12/19 08/01/19 History [Compazine] carvedilol 12.5 mg PO BID 03/21/19 08/01/19 History nortriptyline [Pamelor] 25 mg PO HS 03/21/19 08/01/19 History spironolactone [Aldactone] 25 mg PO HS 07/05/19 08/01/19 History Trulicity 1.5 mg SUBCUT WK 07/13/19 08/01/19 History hydroxyzine HCl 10 mg PO Q6H PRN 07/13/19 08/01/19 History mirtazapine [Remeron] 15 mg PO HS 07/13/19 08/01/19 History nystatin 1 applic TOPICAL BID 07/13/19 08/01/19 History Basaglar KwikPen U-100 Insulin 90 unit SUBCUT BID 08/01/19 08/01/19 History albuterol sulfate [Ventolin HFA] 2 puff INHALATION Q4H PRN 08/01/19 08/01/19 History baclofen 10 mg PO BID 08/01/19 08/01/19 History ferrous sulfate 325 mg PO QAM 08/01/19 08/01/19 History lactulose [Constulose] 30 ml PO TID 08/01/19 08/01/19 History levothyroxine 150 mcg PO QAM 08/01/19 08/01/19 History pantoprazole 40 mg PO QAM 08/01/19 08/01/19 History ranitidine HCl 150 - 300 mg PO HS 08/01/19 08/01/19 History Past Med/Surg History Medical History Anemia (Acute) HX OF AND NO PROBLEMS Atrial fibrillation by electrocardiogram (Acute) DX: 2013 TAKES XARELTO AND FOLLOW WITH MEDICAL DOCTOR Chronic low back pain (Acute) Cirrhosis MEDICAL 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) RIGHT AND LEFT LEG AND THEN MOVED LUNG - 2001 Diabetes Diabetic neuropathy (Chronic 01/04/11) Gastritis (Acute) GI bleed (Acute) HX OF AND NO CURRENT PROBLEMS Hypothyroidism (Acute) Kidney stone HX OF AND HAD LITHOTRIPSY Obesity (Acute) RIMA (obstructive sleep apnea) HX OF AND NO CURRENT PROBLEM Surgical History Hx of lithotripsy Hx of ventral hernia repair Family History Other Family history non-contributory Social History Preferred Language: Vietnamese Communication Ability: Effective Watch [employer] Grinder Required: No Beliefs That Will Affect Care: None Current Living Situation: Spouse Current Living Situation Comment: friend/caregiver herbert vaughan current occupational status: disabled Other Information That Helps Us Care for You: No Feels Safe at Home: Yes Safety Concerns: Feels Safe At This Time Smoking Status: Current every day smoker Tobacco Type: cigarettes ; Cigarettes Per Day: 1/2 PPD ; Do You Dip or Chew Tobacco: No ; Second Hand Exposure: No ; Tobacco Cessation Education Requested by Patient: No Hx Alcohol Use: No Hx Substance Use: No Review of Systems Constitutional: + weakness; no fever Confusion Eyes: no problem reported Ear, Nose, Mouth, Throat: no problem reported Respiratory: no cough, no dyspnea and no wheezing Cardiovascular: no chest pain, no dyspnea and no palpitations Gastrointestinal: + nausea and + diarrhea/loose stools; no abdominal pain, no vomiting, no coffee ground emesis and no melena Genitourinary: + dysuria (Reports she had some in the past but not recently); no urinary frequency, no urinary urgency and no urinary incontinence Neurologic: + generalized weakness and + confusion; no headache(s) Physical Exam Constitutional: + well hydrated and + morbidly obese; no acute distress Confused. Alert and oriented to person, place, month and year only Answers appropriately but sluggishly Eyes: PERRL, conjunctivae normal, anicteric sclerae ENMT: external ear and nose normal, oropharynx normal Neck: Thick neck Respiratory: normal respiratory effort, lungs clear to auscultation Cardiovascular: Rate/Rhythm: regular rate and regular rhythm Extremities: no pedal edema Gastrointestinal (Abdomen): Inspection/Auscultation: abdomen normal to inspection and normal bowel sounds Percussion/Palpation: abdomen soft; abdomen nontender and no guarding Obese Musculoskeletal: no cyanosis or clubbing, extremities motor strength 5/5 Neurologic: moves all extremities; no focal motor deficits Alert and oriented to person, place, month and year only Sluggish response +Asterixis Results & Data Results & Data ([facility]) Vital Signs (Past 12 Hours) Vital Signs Temp Pulse Resp BP Pulse Ox 08/12/19 14:34 69 13 101/77 94 08/12/19 14:01 69 12 121/66 95 08/12/19 12:45 36.7 C 75 20 113/70 100 Laboratory Results Laboratory Results - last 24 hr 08/12/19 08/12/19 08/12/19 13:36 13:36 13:36 WBC RBC Hgb Hct MCV MCH MCHC RDW Std Deviation RDW Coeff of Mari Plt Count MPV Immature Gran % (Auto) Neut % (Auto) Lymph % (Auto) [place] % (Auto) Eos % (Auto) Baso % (Auto) Immature Gran # (Auto) Neut # (Auto) Lymph # (Auto) [place] # (Auto) Eos # (Auto) Baso # (Auto) Polychromasia Anisocytosis PT 12.0 INR 1.1 APTT 30.8 PTT Ratio 1.1 Sodium 139 Potassium 3.1 L Chloride 102 Carbon Dioxide 30 Anion Gap 7.0 BUN 12 Creatinine 1.19 Est Cr Clr Drug Dosing Not Reportable Est GFR ( Amer) 59.5 Est GFR (Non-Af Amer) 51.4 BUN/Creatinine Ratio 9.8 L Glucose 195 H Calcium 9.5 Total Bilirubin 0.7 AST 30 ALT 33 Alkaline Phosphatase 173 H Ammonia 107.1 H Total Protein 7.2 Albumin 2.7 L Globulin 4.5 H Albumin/Globulin Ratio 0.6 L 08/12/19 13:36 WBC 7.41 RBC 3.85 L Hgb 11.1 L Hct 35.4 L MCV 91.9 MCH 28.8 MCHC 31.4 L RDW Std Deviation 67.2 H RDW Coeff of Mari 20.4 H Plt Count 168 MPV 9.1 Immature Gran % (Auto) 0.4 Neut % (Auto) 54.6 Lymph % (Auto) 30.0 [place] % (Auto) 10.7 Eos % (Auto) 4.0 Baso % (Auto) 0.3 Immature Gran # (Auto) 0.03 H Neut # (Auto) 4.05 Lymph # (Auto) 2.22 [place] # (Auto) 0.79 H Eos # (Auto) 0.30 Baso # (Auto) 0.02 Polychromasia 1+ Anisocytosis Present PT INR APTT PTT Ratio Sodium Potassium Chloride Carbon Dioxide Anion Gap BUN Creatinine Est Cr Clr Drug Dosing Est GFR ( Amer) Est GFR (Non-Af Amer) BUN/Creatinine Ratio Glucose Calcium Total Bilirubin AST ALT Alkaline Phosphatase Ammonia Total Protein Albumin Globulin Albumin/Globulin Ratio Code Status & VTE Plan VTE Prophylaxis Plan VTE Prophylaxis will be ordered: Yes (1) AMS (altered mental status) Altered mental status type: unspecified Qualified Code(s): R41.82 - Altered mental status, unspecified
[2019-08-12] MEDS ORDERED: GLUCOSE 10 TABS/TUBE PO PRN (16:35)
[2019-08-12] MEDS ORDERED: GLUCAGON FOR INJ 1 MG VIAL SQ PRN (16:35)
[2019-08-12] MEDS ORDERED: DEXTROSE 50% 50 ML SYRINGE IV PRN (16:35)
[2019-08-12] MEDS ORDERED: CARBOHYDRATES FOR HYPOGLYCEMIA PO PRN (16:35)
[2019-08-12] MEDS ORDERED: PROCHLORPERAZINE MALEATE 5 MG TAB PO PRN (16:35)
[2019-08-12] MEDS ORDERED: GLUCOSE 40% GEL 15 GM TUBE PO PRN (16:35)
[2019-08-12] MEDS ORDERED: ALBUTEROL HFA 8 GM INHALER INH PRN (16:35)
[2019-08-12] MEDS: POTASSIUM CHLORIDE / WTR 10 MEQ/100 ML PLCT IV SCH ×4 (17:13→23:03)
[2019-08-12] MEDS: SPIRONOLACTONE 25 MG TAB PO SCH (17:14)
[2019-08-12] MEDS: POTASSIUM CHLORIDE 10 MEQ TABCR PO SCH (17:14)
[2019-08-12] MEDS: INSULIN ASPART 100 UNITS/ML 3 ML PEN SC SCH ×2 (17:18→20:18)
[2019-08-12] MEDS: LACTULOSE SYRUP 20 GM/30 ML UDC PO SCH ×2 (17:41→20:12)
[2019-08-12] MEDS: MAGNESIUM SULFATE / D5W 1 GM/100 ML BAG IV SCH ×2 (17:41→19:01)
[2019-08-12] MEDS ORDERED: OXYCODONE HCL IR 5 MG TAB (IMMEDIATE RELEASE) PO PRN (18:29)
[2019-08-12] MEDS: carvediloL 12.5 MG TAB PO SCH (20:12)
[2019-08-12 20:45] LABS: Appearance Urine Clear (Clear); Bacteria Urine Automated Negative (Negative); Bilirubin Urine Negative (Negative); Blood Urine 1+ (Negative); Color Urine Yellow; Glucose Urine UA Negative (Negative); Ketones Urine Negative (Negative); Leukocyte Esterase Urine Negative (Negative); Nitrite Urine Negative (Negative); Protein Urine Negative (Negative); RBC Urine Automated 0-4 /hpf (0-4); Specific Gravity Urine 1.013 (1.000-1.030); Urobilinogen Urine Negative (Negative)
[2019-08-12] MEDS ORDERED: INSULIN GLARGINE 100 UNIT/ML VIAL SQ SCH (21:00)
[2019-08-13] MEDS: LEVOTHYROXINE SODIUM 150 MCG TABLET PO SCH (05:33)
[2019-08-13 05:57] LABS: Hematocrit (blood only) 34.6 % (37-47); Hemoglobin 10.6 g/dL (12.0-16.0); Mean Corpuscular Hemoglobin 28.9 pg (25-34); Mean Corpuscular Hgb Conc 30.6 g/dL (32-36); Mean Corpuscular Volume 94.3 fL (80-100); Mean Platelet Volume 9.6 fL (7.4-10.4); Platelet Count 159 K/uL (130-400); RDW Coefficient of Variation 20.9 % (11.5-14.5); RDW Standard Deviation 70.2 fL (36.4-46.3); Red Blood Count 3.67 M/uL (4.2-5.4); White Blood Count 6.62 K/uL (4.8-10.8)
[2019-08-13 06:02] LABS: INR 1.2 (0.9-1.1); Prothrombin Time 12.4 Seconds (9.0-12.0)
[2019-08-13 06:20] LABS: Albumin Level 2.3 gm/dl (3.4-5.0); BUN Creatinine Ratio 10.2 (10-20); Calcium 8.7 mg/dl (8.5-10.1); Creatinine Clr Calc Pharmacy 94.3 ml/min; Est GFR (African American) 70.9; Est GFR (Non-African American) 61.1; Potassium 3.4 mmol/L (3.5-5.1)
[2019-08-13 06:23] LABS: Albumin Globulin Ratio 0.6 (0.9-2); Bilirubin,Total 0.6 mg/dl (0.2-1); Globulin 3.8 gm/dl (2.5-4.0); Phosphorus 2.5 mg/dl (2.5-4.9); Total Protein 6.1 gm/dl (6.4-8.2)
[2019-08-13] MEDS ORDERED: POTASSIUM CHLORIDE 10 MEQ TABCR PO STA (07:45)
[2019-08-13] MEDS: POTASSIUM CHLORIDE 10 MEQ TABCR PO SCH ×2 (08:06→17:08)
[2019-08-13] MEDS: carvediloL 12.5 MG TAB PO SCH ×2 (08:07→21:03)
[2019-08-13] MEDS: LACTULOSE SYRUP 20 GM/30 ML UDC PO SCH (08:07)
[2019-08-13] MEDS: PANTOprazole 40 MG TAB PO SCH (08:07)
[2019-08-13] MEDS: FUROSEMIDE 20 MG TAB PO SCH (08:08)
[2019-08-13] MEDS: INSULIN GLARGINE 100 UNIT/ML VIAL SQ SCH ×2 (08:10→21:05)
[2019-08-13] MEDS: INSULIN ASPART 100 UNITS/ML 3 ML PEN SC SCH ×4 (08:13→21:03)
--- NOTE | 2019-08-13 10:09 | Hospitalist Progress Note ---
Date of Service August 13, 2019 Assessment & Plan (1) AMS (altered mental status): (2) Liver cirrhosis secondary to [place]: (3) Hyperammonemia: (4) Hepatic encephalopathy: Hepatic encephalopathy Elevated ammonia level No fevers or leukocytosis No signs of infection UA is not suggestive of UTI To pocket of fluid to tap on USS Increased lactulose to ensure at least 3-4 bowel movement Replete hypokalemia and monitor electrolytes Monitor neurologic status Appreciate GI recommendations Started on rifaximin (5) Hypokalemia: K is 3.4 this morning Continue to replete and monitor Hypomagnesemia on admission, now resolved (6) Chronic diastolic CHF (congestive heart failure): Stable Will continue home diuretics, coreg (7) Morbid obesity: (8) RIMA (obstructive sleep apnea): Per chart review from recent admission, patient has not been adherent with BIPAP Patient not sure about BIPAP or use at home when asked. BIPAP HS for now. Will reassess when mental status improves (9) Hypothyroidism: Continue home levothyroxine. (10) DM2 (diabetes mellitus, type 2): AM blood glucose was in 70s Basaglar reduced to 70U BID from 90U BID for now Insulin sliding scale per protocol Monitor blood glucose Paroxysmal Afib On xarelto at home Continue Admission and Anticipated Discharge Date Admission Date: August 12, 2019 Subjective Patient seen and examined. Patient still drowsy Has no complaints. Denied any fevers, chills, nausea, vomiting Has not moved her bowels yet Denied any dysuria, frequency, urgency Denied any abdominal pain Physical Exam Constitutional: + well hydrated and + morbidly obese; no acute distress Eyes: PERRL, conjunctivae normal, anicteric sclerae ENMT: external ear and nose normal, oropharynx normal Respiratory: normal respiratory effort, lungs clear to auscultation Cardiovascular: Rate/Rhythm: regular rate and regular rhythm Extremities: no pedal edema Gastrointestinal (Abdomen): Inspection/Auscultation: abdomen normal to inspection and normal bowel sounds Percussion/Palpation: abdomen soft; abdomen nontender and no guarding Musculoskeletal: no cyanosis or clubbing, extremities motor strength 5/5 Neurologic: moves all extremities; no focal motor deficits Alert and oriented to person and place. Mild asterixis Results & Data Results & Data ([facility]) Vital Signs (Past 12 Hours) Vital Signs Temp Pulse Pulse Pulse Resp BP BP 08/13/19 07:57 60 08/13/19 07:25 36.6 C 68 24 117/72 08/13/19 04:17 08/13/19 04:15 36.5 C 58 L 16 93/55 L 08/12/19 23:04 36.8 C 74 16 108/71 Pulse Ox 08/13/19 07:57 08/13/19 07:25 93 08/13/19 04:17 96 08/13/19 04:15 86 L 08/12/19 23:04 92 Laboratory Results Laboratory Results - last 24 hr 08/12/19 08/12/19 08/12/19 13:36 13:36 13:36 WBC RBC Hgb Hct MCV MCH MCHC RDW Std Deviation RDW Coeff of Mari Plt Count MPV Immature Gran % (Auto) Neut % (Auto) Lymph % (Auto) [place] % (Auto) Eos % (Auto) Baso % (Auto) Immature Gran # (Auto) Neut # (Auto) Lymph # (Auto) [place] # (Auto) Eos # (Auto) Baso # (Auto) Polychromasia Anisocytosis PT 12.0 INR 1.1 APTT 30.8 PTT Ratio 1.1 Sodium 139 Potassium 3.1 L Chloride 102 Carbon Dioxide 30 Anion Gap 7.0 BUN 12 Creatinine 1.19 Est Cr Clr Drug Dosing Not Reportable Est GFR ( Amer) 59.5 Est GFR (Non-Af Amer) 51.4 BUN/Creatinine Ratio 9.8 L Glucose 195 H POC Glucose Calcium 9.5 Phosphorus Magnesium Total Bilirubin 0.7 AST 30 ALT 33 Alkaline Phosphatase 173 H Ammonia 107.1 H Lactate Dehydrogenase Total Protein 7.2 Albumin 2.7 L Globulin 4.5 H Albumin/Globulin Ratio 0.6 L Urine Color Urine Appearance Urine pH Ur Specific [place] Urine Protein Urine Glucose (UA) Urine Ketones Urine Blood Urine Nitrite Urine Bilirubin Urine Urobilinogen Ur Leukocyte Esterase Urine WBC (Auto) Urine RBC (Auto) U Hyaline Cast (Auto) U Epithel Cells (Auto) Urine Bacteria (Auto) 08/12/19 08/12/19 08/12/19 13:36 13:36 17:17 WBC 7.41 RBC 3.85 L Hgb 11.1 L Hct 35.4 L MCV 91.9 MCH 28.8 MCHC 31.4 L RDW Std Deviation 67.2 H RDW Coeff of Mari 20.4 H Plt Count 168 MPV 9.1 Immature Gran % (Auto) 0.4 Neut % (Auto) 54.6 Lymph % (Auto) 30.0 [place] % (Auto) 10.7 Eos % (Auto) 4.0 Baso % (Auto) 0.3 Immature Gran # (Auto) 0.03 H Neut # (Auto) 4.05 Lymph # (Auto) 2.22 [place] # (Auto) 0.79 H Eos # (Auto) 0.30 Baso # (Auto) 0.02 Polychromasia 1+ Anisocytosis Present PT INR APTT PTT Ratio Sodium Potassium Chloride Carbon Dioxide Anion Gap BUN Creatinine Est Cr Clr Drug Dosing Est GFR ( Amer) Est GFR (Non-Af Amer) BUN/Creatinine Ratio Glucose POC Glucose 109 H Calcium Phosphorus Magnesium 1.6 L Total Bilirubin AST ALT Alkaline Phosphatase Ammonia Lactate Dehydrogenase Total Protein Albumin Globulin Albumin/Globulin Ratio Urine Color Urine Appearance Urine pH Ur Specific [place] Urine Protein Urine Glucose (UA) Urine Ketones Urine Blood Urine Nitrite Urine Bilirubin Urine Urobilinogen Ur Leukocyte Esterase Urine WBC (Auto) Urine RBC (Auto) U Hyaline Cast (Auto) U Epithel Cells (Auto) Urine Bacteria (Auto) 08/12/19 08/12/19 08/13/19 20:10 20:30 05:22 WBC RBC Hgb Hct MCV MCH MCHC RDW Std Deviation RDW Coeff of Mari Plt Count MPV Immature Gran % (Auto) Neut % (Auto) Lymph % (Auto) [place] % (Auto) Eos % (Auto) Baso % (Auto) Immature Gran # (Auto) Neut # (Auto) Lymph # (Auto) [place] # (Auto) Eos # (Auto) Baso # (Auto) Polychromasia Anisocytosis PT INR APTT PTT Ratio Sodium Potassium Chloride Carbon Dioxide Anion Gap BUN Creatinine Est Cr Clr Drug Dosing Est GFR ( Amer) Est GFR (Non-Af Amer) BUN/Creatinine Ratio Glucose POC Glucose 144 H Calcium Phosphorus Magnesium Total Bilirubin AST ALT Alkaline Phosphatase Ammonia Lactate Dehydrogenase 181 Total Protein Albumin Globulin Albumin/Globulin Ratio Urine Color Yellow Urine Appearance Clear Urine pH 6.0 Ur Specific [place] 1.013 Urine Protein Negative Urine Glucose (UA) Negative Urine Ketones Negative Urine Blood 1+ H Urine Nitrite Negative Urine Bilirubin Negative Urine Urobilinogen Negative Ur Leukocyte Esterase Negative Urine WBC (Auto) 1-5 Urine RBC (Auto) 0-4 U Hyaline Cast (Auto) 1-5 U Epithel Cells (Auto) 5-10 H Urine Bacteria (Auto) Negative 08/13/19 08/13/19 08/13/19 05:22 05:22 05:22 WBC 6.62 RBC 3.67 L Hgb 10.6 L Hct 34.6 L MCV 94.3 MCH 28.9 MCHC 30.6 L RDW Std Deviation 70.2 H RDW Coeff of Mari 20.9 H Plt Count 159 MPV 9.6 Immature Gran % (Auto) Neut % (Auto) Lymph % (Auto) [place] % (Auto) Eos % (Auto) Baso % (Auto) Immature Gran # (Auto) Neut # (Auto) Lymph # (Auto) [place] # (Auto) Eos # (Auto) Baso # (Auto) Polychromasia Anisocytosis PT 12.4 H INR 1.2 H APTT PTT Ratio Sodium 142 Potassium 3.4 L Chloride 107 Carbon Dioxide 33 H Anion Gap 3.0 BUN 11 Creatinine 1.03 Est Cr Clr Drug Dosing 94.3 Est GFR ( Amer) 70.9 Est GFR (Non-Af Amer) 61.1 BUN/Creatinine Ratio 10.2 Glucose 64 L POC Glucose Calcium 8.7 Phosphorus 2.5 Magnesium 2.0 Total Bilirubin 0.6 AST 26 ALT 26 Alkaline Phosphatase 147 H Ammonia Lactate Dehydrogenase Total Protein 6.1 L Albumin 2.3 L Globulin 3.8 Albumin/Globulin Ratio 0.6 L Urine Color Urine Appearance Urine pH Ur Specific [place] Urine Protein Urine Glucose (UA) Urine Ketones Urine Blood Urine Nitrite Urine Bilirubin Urine Urobilinogen Ur Leukocyte Esterase Urine WBC (Auto) Urine RBC (Auto) U Hyaline Cast (Auto) U Epithel Cells (Auto) Urine Bacteria (Auto) 08/13/19 08/13/19 08/13/19 07:03 10:58 11:47 WBC RBC Hgb Hct MCV MCH MCHC RDW Std Deviation RDW Coeff of Mari Plt Count MPV Immature Gran % (Auto) Neut % (Auto) Lymph % (Auto) [place] % (Auto) Eos % (Auto) Baso % (Auto) Immature Gran # (Auto) Neut # (Auto) Lymph # (Auto) [place] # (Auto) Eos # (Auto) Baso # (Auto) Polychromasia Anisocytosis PT INR APTT PTT Ratio Sodium Pending Potassium Pending Chloride Pending Carbon Dioxide Pending Anion Gap Pending BUN Pending Creatinine Pending Est Cr Clr Drug Dosing Pending Est GFR ( Amer) Pending Est GFR (Non-Af Amer) Pending BUN/Creatinine Ratio Pending Glucose Pending POC Glucose 79 109 H Calcium Pending Phosphorus Magnesium Total Bilirubin AST ALT Alkaline Phosphatase Ammonia Lactate Dehydrogenase Total Protein Albumin Globulin Albumin/Globulin Ratio Urine Color Urine Appearance Urine pH Ur Specific [place] Urine Protein Urine Glucose (UA) Urine Ketones Urine Blood Urine Nitrite Urine Bilirubin Urine Urobilinogen Ur Leukocyte Esterase Urine WBC (Auto) Urine RBC (Auto) U Hyaline Cast (Auto) U Epithel Cells (Auto) Urine Bacteria (Auto) (1) AMS (altered mental status) Altered mental status type: unspecified Qualified Code(s): R41.82 - Altered mental status, unspecified
[2019-08-13] MEDS: LACTULOSE SYRUP 30 GM/45 ML UDP PO SCH ×4 (10:34→21:06)
--- NOTE | 2019-08-13 10:35 | Ultrasound Report ---
Study: Survey abdominal ultrasound HISTORY: Ascites. FINDINGS: No evidence for ascites within the body habitus limitations. IMPRESSION: No evidence for ascites within the body habitus limitations. 3. Electronically signed by: Will Holder M.D. 08/13/2019 10:33 AM
[2019-08-13] MEDS: RIVAROXABAN 20 MG TAB PO SCH (10:36)
--- NOTE | 2019-08-13 10:47 | Gastrointestinal Consultation ---
Date of Consultation August 13, 2019 Assessment & Plan (1) Hepatic encephalopathy: Hepatic Encephalopathy in the setting of MEEK cirrhosis. Plan: 1. Agree with frequent lactulose. 2. Add Xifaxan 550mg one tab BID. 3. Low salt diet. 4. Will watch for results of urine/blood cx. 5. Continue with OP GI f/u for cirrhosis. Present on Admission?: Yes Supervising Physician Co-Signing Physician Notes I have seen and examined the patient with GILDA Mcfadden whose note reflects our findings and plan. Patient with NAFLD cirrhosis admitted with hep enceph and paucity of BMs. No s/s of infections or bleeding. Xifaxan to be restarted and lactulose being given more frequently. Abd exam benign. No ascites. History of Present Illness Reason for Consultation: Hepatic Encephalopathy Requesting Physician: Dr. Buenrostro Attending Physician: Nicolasa Buenrostro MD History of Present Illness Ms. Desi Galindo is a 53 yr old female pt of Dr. Dewey Mcfadden with a hx of obesity, DM-2, diabetic neuropathy who was brought to [facility] for confusion yesterday on 08/12/19. She is followed in GI clinic by Janett Rizvi and Dr. Saleh for MEEK cirrhosis. This morning, she is awake, alert. She is able to answer simple questions and provide some history but is not able to tell me today's date. She is able to tell me the name of the [place] president and that she came to the hospital for confusion. She has not had a BM since admission. She denies missing any medications. No fevers/chills/sweats. Denies any recent GI bleeding or signs of infection. Denies eating foods with sodium. No recent increase in edema. She is on lactulose at home. She was prescribed Xifaxan but was unable to afford the medication. On arrival, ammonia was elevated at 104, she is afebrile, w/o luekocyctosis, X- ray with hepatomegaly, mild pulmonary congestion. Blood and urine cultures are pending. Screening for EV was negative on EGD on 07/04/[address] Morgan. There was very mild gastritis but no portal hypertensive gastropathy. Screening for HCC was negative by US on arrival. CT on October 2018 with cirrhosis, no HCC Allergies Allergy/AdvReac Type Severity Reaction Status Date / Time Iodinated Contrast Media Allergy Intermediate hives-PT Verified 07/31/19 16:52 DENIES SEE NOTE adhesive Allergy Mild RED RASH Verified 07/31/19 16:52 CAUSED BY PAPER TAPE vancomycin AdvReac Severe renal Verified 07/31/19 16:52 failure, required dialysis x 3 MONTHS acetaminophen AdvReac Intermediate Liver Verified 07/31/19 16:52 problems. alprazolam AdvReac Intermediate MAKES Verified 07/31/19 16:52 LOOPY,DO AND SAY SILLY THINGS codeine AdvReac Intermediate UPSET Verified 07/31/19 16:52 STOMACH haloperidol AdvReac Intermediate nervous Verified 07/31/19 16:52 and anxious metformin AdvReac Intermediate HANDS FEET Verified 07/31/19 16:52 FACE NUMB methylparaben AdvReac Intermediate FLUID Verified 07/31/19 16:52 RETENTION morphine AdvReac Intermediate SWELLING Verified 07/31/19 16:52 LEGS AND FEET oxymorphone AdvReac Intermediate FLUID Verified 07/31/19 16:52 RETENTION pregabalin AdvReac Intermediate Aphasia/Speech Verified 07/31/19 16:52 impairments gabapentin AdvReac Mild Aphasia/Speech Verified 07/31/19 16:52 impairments Sulfa (Sulfonamide AdvReac Mild GI SYMPTOMS Verified 07/31/19 16:52 Antibiotics) Home Medications Home Medications Medication Instructions Recorded Confirmed Type Xarelto 20 mg PO DAILY 03/12/19 08/01/19 History duloxetine [Cymbalta] 60 mg PO BID 03/12/19 08/01/19 History furosemide [Lasix] 60 mg PO QAM 03/12/19 08/01/19 History insulin aspart U-100 [Novolog 2 - 30 unit SUBCUT TIDM 03/12/19 08/01/19 History Flexpen U-100 Insulin] potassium chloride 10 meq PO BID 03/12/19 08/01/19 History prochlorperazine maleate 5 mg PO TID PRN 03/12/19 08/01/19 History [Compazine] carvedilol 12.5 mg PO BID 03/21/19 08/01/19 History nortriptyline [Pamelor] 25 mg PO HS 03/21/19 08/01/19 History spironolactone [Aldactone] 25 mg PO HS 07/05/19 08/01/19 History Trulicity 1.5 mg SUBCUT WK 07/13/19 08/01/19 History hydroxyzine HCl 10 mg PO Q6H PRN 07/13/19 08/01/19 History mirtazapine [Remeron] 15 mg PO HS 07/13/19 08/01/19 History nystatin 1 applic TOPICAL BID 07/13/19 08/01/19 History Basaglar KwikPen U-100 Insulin 90 unit SUBCUT BID 08/01/19 08/01/19 History albuterol sulfate [Ventolin HFA] 2 puff INHALATION Q4H PRN 08/01/19 08/01/19 History baclofen 10 mg PO BID 08/01/19 08/01/19 History ferrous sulfate 325 mg PO QAM 08/01/19 08/01/19 History lactulose [Constulose] 30 ml PO TID 08/01/19 08/01/19 History levothyroxine 150 mcg PO QAM 08/01/19 08/01/19 History pantoprazole 40 mg PO QAM 08/01/19 08/01/19 History ranitidine HCl 150 - 300 mg PO HS 08/01/19 08/01/19 History Patient History Medical History Anemia (Acute) HX OF AND NO PROBLEMS Atrial fibrillation by electrocardiogram (Acute) DX: 2013 TAKES XARELTO AND FOLLOW WITH MEDICAL DOCTOR Chronic low back pain (Acute) Cirrhosis MEDICAL 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) RIGHT AND LEFT LEG AND THEN MOVED LUNG - 2001 Diabetes Diabetic neuropathy (Chronic 01/04/11) Gastritis (Acute) GI bleed (Acute) HX OF AND NO CURRENT PROBLEMS Hypothyroidism (Acute) Kidney stone HX OF AND HAD LITHOTRIPSY Obesity (Acute) RIMA (obstructive sleep apnea) HX OF AND NO CURRENT PROBLEM Surgical History Hx of lithotripsy Hx of ventral hernia repair Family History Other Family history non-contributory Social History Preferred Language: French Communication Ability: Effective Branch Controller Required: No Beliefs That Will Affect Care: None Current Living Situation: Spouse Current Living Situation Comment: friend/caregiver herbert vaughan current occupational status: disabled Other Information That Helps Us Care for You: No Feels Safe at Home: Yes Safety Concerns: Feels Safe At This Time Smoking Status: Current every day smoker Tobacco Type: cigarettes ; Cigarettes Per Day: 1/2 PPD ; Do You Dip or Chew Tobacco: No ; Second Hand Exposure: No ; Tobacco Cessation Education Requested by Patient: No Hx Alcohol Use: No Hx Substance Use: No Review of Systems Review of Systems: ROS: Gen: + Confusion. Denies weakness, fevers, weight loss Eyes: No eye redness, or pain, no recent vision changes Resp: No SOB, no cough Cardio: No palpitations/irregular beats, no chest pain GI: No abdominal pain, no nausea/vomiting : Denies pain on urination Skin: No jaundice, itching or new rashes Physical Exam Constitutional: WD/WN, vitals as above Eyes: PERRL, conjunctivae normal, anicteric sclerae ENMT: external ear and nose normal, oropharynx normal Neck: trachea midline, no thyromegaly Respiratory: normal respiratory effort, lungs clear to auscultation Cardiovascular: Rate/Rhythm: regular rate and regular rhythm Extremities: + pedal edema (mild) Gastrointestinal (Abdomen): obese, soft, no obvious ascites Musculoskeletal: no cyanosis or clubbing, extremities motor strength 5/5 Skin: No jaundice or icterus. NO rashes. No spider angiomas. Neurologic: PERRL, EOMI, accommodation nl, no face palsy, no dysarthria Psychiatric: Orientation: alert Judgement: + limited judgement Results & Data ([facility]) Vital Signs (Past 12 Hours) Vital Signs Temp Pulse Pulse Pulse Resp BP BP 08/13/19 07:57 60 08/13/19 07:25 36.6 C 68 24 117/72 08/13/19 04:17 08/13/19 04:15 36.5 C 58 L 16 93/55 L 08/12/19 23:04 36.8 C 74 16 108/71 Pulse Ox 08/13/19 07:57 08/13/19 07:25 93 08/13/19 04:17 96 08/13/19 04:15 86 L 08/12/19 23:04 92 Laboratory Results WBC 6, Hb 10, Hct 34, Platelets 159, Na 142, K 3.4, BUN 11, Cr 10.3 T bili 0.6, AST 26, ALT 26, Alk Phos 147. Diagnostic Findings CXR: Cardiomegaly with mild pulmonary vascular congestion. Liver US: No evidence for ascites within the body habitus limitations.
--- NOTE | 2019-08-13 11:22 | Electrocardiogram Report ---
Test Reason : Blood Pressure : / mmHG Vent. Rate : 059 BPM Atrial Rate : 059 BPM P-R Int : 238 ms QRS Dur : 086 ms QT Int : 454 ms P-R-T Axes : 042 095 054 degrees QTc Int : 449 ms Sinus bradycardia with 1st degree A-V block Rightward axis Low voltage QRS Borderline ECG When compared with ECG of 01-AUG-2019 16:34, Sinus rhythm has replaced Ectopic atrial rhythm Confirmed by Anshu Cevallos ([id number]) on 08/13/2019 11:22:02 AM Referred By: REFERRED SELF Confirmed By:Everardo Cevallos
[2019-08-13 12:42] LABS: BUN Creatinine Ratio 9.3 (10-20); Calcium 8.5 mg/dl (8.5-10.1); Creatinine Clr Calc Pharmacy 89.1 ml/min; Est GFR (African American) 66.2; Est GFR (Non-African American) 57.1; Potassium 3.2 mmol/L (3.5-5.1)
[2019-08-13] MEDS: SPIRONOLACTONE 25 MG TAB PO SCH (17:07)
[2019-08-13] MEDS ORDERED: OXYCODONE HCL IR 5 MG TAB (IMMEDIATE RELEASE) PO STA (17:35)
[2019-08-13] MEDS: RIFAXIMIN 550 MG TABLET PO SCH (21:03)
[2019-08-13] MEDS: OXYCODONE HCL IR 5 MG TAB (IMMEDIATE RELEASE) PO PRN (23:49)
[2019-08-14] MEDS: LACTULOSE SYRUP 30 GM/45 ML UDP PO SCH ×6 (01:41→21:07)
[2019-08-14] MEDS: OXYCODONE HCL IR 5 MG TAB (IMMEDIATE RELEASE) PO PRN ×3 (03:04→20:08)
[2019-08-14] MEDS: LEVOTHYROXINE SODIUM 150 MCG TABLET PO SCH (05:26)
[2019-08-14 06:02] LABS: Hematocrit (blood only) 36.7 % (37-47); Hemoglobin 11.3 g/dL (12.0-16.0); Mean Corpuscular Hgb Conc 30.8 g/dL (32-36); Mean Corpuscular Volume 94.3 fL (80-100); Mean Platelet Volume 9.3 fL (7.4-10.4); Platelet Count 137 K/uL (130-400); RDW Coefficient of Variation 21.4 % (11.5-14.5); RDW Standard Deviation 71.7 fL (36.4-46.3); Red Blood Count 3.89 M/uL (4.2-5.4); White Blood Count 6.98 K/uL (4.8-10.8)
[2019-08-14 06:35] LABS: Albumin Level 2.5 gm/dl (3.4-5.0); Calcium 8.3 mg/dl (8.5-10.1); Creatinine Clr Calc Pharmacy 87.4 ml/min; Est GFR (African American) 65.5; Est GFR (Non-African American) 56.5; Potassium 3.2 mmol/L (3.5-5.1)
[2019-08-14 06:38] LABS: Albumin Globulin Ratio 0.6 (0.9-2); Bilirubin,Total 0.8 mg/dl (0.2-1); Globulin 4.5 gm/dl (2.5-4.0)
[2019-08-14] MEDS: FUROSEMIDE 20 MG TAB PO SCH (08:27)
[2019-08-14] MEDS: RIVAROXABAN 20 MG TAB PO SCH (08:27)
[2019-08-14] MEDS: PANTOprazole 40 MG TAB PO SCH (08:27)
[2019-08-14] MEDS: POTASSIUM CHLORIDE 20 MEQ TABCR PO SCH ×2 (08:27→16:40)
[2019-08-14] MEDS: POTASSIUM CHLORIDE / WTR 10 MEQ/100 ML PLCT IV SCH ×2 (08:27→10:02)
[2019-08-14] MEDS: INSULIN GLARGINE 100 UNIT/ML VIAL SQ SCH ×2 (08:28→21:10)
[2019-08-14] MEDS: INSULIN ASPART 100 UNITS/ML 3 ML PEN SC SCH ×4 (08:29→21:09)
[2019-08-14] MEDS: RIFAXIMIN 550 MG TABLET PO SCH ×2 (08:30→21:07)
[2019-08-14] MEDS: carvediloL 12.5 MG TAB PO SCH ×2 (08:30→21:07)
[2019-08-14] MEDS ORDERED: POTASSIUM CHLORIDE 20 MEQ TABCR PO STA (10:00)
--- NOTE | 2019-08-14 10:56 | Gastroenterology Progress Note ---
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 Plan: 1. Continue Lactulose. I spoke with the pt and told her that she will need to be DC'ed on larger dose, more frequent than prior to admission, but pt needs to titrate to passing 3 BMs/day. 2. Continue Xifaxan 550mg one tab BID. 3. I request that our [facility] GI nurses verify that it is prior-auth'ed and all avenues for pt reimbursement have been exhausted. 4. Low salt diet. 5. Continue with OP GI f/u for cirrhosis. Has appt with Karlos Rizvi in October 2019 which is appropriate. Admission and Anticipated Discharge Date Admission Date: August 12, 2019 Supervising Physician Co-Signing Physician Notes Late entry: Patient was seen and examined with GILDA Mcfadden on 08/13. her note reflects our findings and plan Subjective Ms. Desi Galindo is a 53 yr old female with a hx of obesity, DM-2, diabetic neuropathy, MEEK cirrhosis admitted on 08/11 for confusion. Finding of elevated ammonia (107->64) consistent with hepatic encephalopathy. Pts mentation much improved with increasing lactulose dosing and adding back Xifaxan; able to carry out a detailed conversation w/o confusion. Regarding trigger for hep enceph: no evidence of infection (CXR, WBC, blood and urine cx normal and no significant ascites on US) MELD: 9 Review of Systems Review of Systems: ROS: Gen: No Confusion. Denies weakness, fevers, weight loss Eyes: No eye redness, or pain, no recent vision changes Resp: No SOB, no cough Cardio: No palpitations/irregular beats, no chest pain GI: No abdominal pain, no nausea/vomiting : Denies pain on urination Skin: No jaundice, itching or new rashes Physical Exam Constitutional: WD/WN, vitals as above obese Eyes: PERRL, conjunctivae normal, anicteric sclerae ENMT: external ear and nose normal, oropharynx normal Neck: trachea midline, no thyromegaly Respiratory: normal respiratory effort, lungs clear to auscultation Cardiovascular: Rate/Rhythm: regular rate and regular rhythm Extremities: + pedal edema (mild) Musculoskeletal: no cyanosis or clubbing, extremities motor strength 5/5 Neurologic: PERRL, EOMI, accommodation nl, no face palsy, no dysarthria Psychiatric: A+Ox3, euthymic affect Results & Data ([facility]) Vital Signs (Past 12 Hours) Vital Signs Temp Pulse Pulse Resp BP BP Pulse Ox 08/14/19 08:00 67 08/14/19 07:22 36.8 C 66 18 163/92 H 94 08/14/19 03:45 36.4 C L 71 105/61 98 08/13/19 23:00 36.5 C 67 18 114/62 100 08/13/19 22:54 72 Laboratory Results See HPI Diagnostic Findings See HPI
--- NOTE | 2019-08-14 12:04 | Hospitalist Progress Note ---
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 Ensure patient is discharged on this (5) Hypokalemia: K is 3.2 this morning Continue to replete and monitor Got extra 40mEq this AM Increased usual dose to 20 BID Hypomagnesemia on admission, now resolved (6) Chronic diastolic CHF (congestive heart failure): Stable Will continue home diuretics, coreg (7) Morbid obesity: (8) RIMA (obstructive sleep apnea): Per chart review from recent admission, patient has not been adherent with BIPAP However patient stated today that she is no longer on BIPAP Overnight pulse ox from 03/26/2019 does report there was no desaturation event. Unclear if patient has got polysomnography done (9) Hypothyroidism: Continue home levothyroxine. (10) DM2 (diabetes mellitus, type 2): AM blood glucose was in 70s yesterday and Basaglar was reduced to 70U BID This AM blood glucose is increased Basaglar increased to 90U BID for now Insulin sliding scale per protocol Monitor blood glucose and optimize control as needed Paroxysmal Afib On xarelto at home Continue Neuropathy Resume home duloxetine and baclofen Transfer [facility] today Admission and Anticipated Discharge Date Admission Date: August 12, 2019 Subjective Patient seen and examined. Patient is very awake and alert Reports confusion has resolved. Had 3 bowel movement yesterday. Yet to have bowel movement today. Reports lower extremity pain which she stated was from neuropathy Denied any nausea, vomiting Denied any abdominal pain Denied any dysuria, frequency, urgency Denied any headache, dizziness, blurry vision Physical Exam Constitutional: + well hydrated and + morbidly obese; no acute distress Eyes: PERRL, conjunctivae normal, anicteric sclerae ENMT: external ear and nose normal, oropharynx normal Respiratory: normal respiratory effort, lungs clear to auscultation Cardiovascular: Rate/Rhythm: regular rate and regular rhythm Extremities: no pedal edema Gastrointestinal (Abdomen): Inspection/Auscultation: abdomen normal to inspection and normal bowel sounds Percussion/Palpation: abdomen soft; abdomen nontender and no guarding Musculoskeletal: no cyanosis or clubbing, extremities motor strength 5/5 Neurologic: moves all extremities; no focal motor deficits AO x3, asterixis has resolved Psychiatric: A+Ox3, euthymic affect Results & Data Results & Data ([facility]) Vital Signs (Past 12 Hours) Vital Signs Temp Pulse Pulse Resp BP BP Pulse Ox 08/14/19 08:00 67 08/14/19 07:22 36.8 C 66 18 163/92 H 94 08/14/19 03:45 36.4 C L 71 105/61 98 Laboratory Results Laboratory Results - last 24 hr 08/13/19 08/13/19 08/14/19 16:28 20:15 05:47 WBC 6.98 RBC 3.89 L Hgb 11.3 L Hct 36.7 L MCV 94.3 MCH 29.0 MCHC 30.8 L RDW Std Deviation 71.7 H RDW Coeff of Mari 21.4 H Plt Count 137 MPV 9.3 Sodium Potassium Chloride Carbon Dioxide Anion Gap BUN Creatinine Est Cr Clr Drug Dosing Est GFR ( Amer) Est GFR (Non-Af Amer) BUN/Creatinine Ratio Glucose POC Glucose 170 H 177 H Calcium Magnesium Total Bilirubin AST ALT Alkaline Phosphatase Ammonia Total Protein Albumin Globulin Albumin/Globulin Ratio 08/14/19 08/14/19 08/14/19 05:47 05:47 05:47 WBC RBC Hgb Hct MCV MCH MCHC RDW Std Deviation RDW Coeff of Mari Plt Count MPV Sodium 135 L Potassium 3.2 L Chloride 104 Carbon Dioxide 29 Anion Gap 2.0 L BUN 9 Creatinine 1.10 Est Cr Clr Drug Dosing 87.4 Est GFR ( Amer) 65.5 Est GFR (Non-Af Amer) 56.5 BUN/Creatinine Ratio 8.0 L Glucose 200 H POC Glucose Calcium 8.3 L Magnesium 2.1 Total Bilirubin 0.8 AST 28 ALT 25 Alkaline Phosphatase 157 H Ammonia Total Protein 7.0 Albumin 2.5 L Globulin 4.5 H Albumin/Globulin Ratio 0.6 L 08/14/19 08/14/19 08/14/19 06:55 07:02 11:11 WBC RBC Hgb Hct MCV MCH MCHC RDW Std Deviation RDW Coeff of Mari Plt Count MPV Sodium Potassium Chloride Carbon Dioxide Anion Gap BUN Creatinine Est Cr Clr Drug Dosing Est GFR ( Amer) Est GFR (Non-Af Amer) BUN/Creatinine Ratio Glucose POC Glucose 200 H 229 H Calcium Magnesium Total Bilirubin AST ALT Alkaline Phosphatase Ammonia 64.0 H Total Protein Albumin Globulin Albumin/Globulin Ratio (1) AMS (altered mental status) Altered mental status type: unspecified Qualified Code(s): R41.82 - Altered mental status, unspecified
[2019-08-14] MEDS: SPIRONOLACTONE 25 MG TAB PO SCH (16:40)
[2019-08-14] MEDS ORDERED: OXYCODONE HCL IR 5 MG TAB (IMMEDIATE RELEASE) PO STA (20:03)
[2019-08-14] MEDS: DULOXETINE HCL 60 MG CAP PO SCH (21:07)
[2019-08-14] MEDS: BACLOFEN 10 MG TAB PO SCH (21:07)
[2019-08-15] MEDS ORDERED: TRAZODONE HCL 50 MG TAB PO ONE (00:29)
[2019-08-15] MEDS: LACTULOSE SYRUP 30 GM/45 ML UDP PO SCH ×4 (00:44→13:32)
[2019-08-15] MEDS: LEVOTHYROXINE SODIUM 150 MCG TABLET PO SCH (05:59)
[2019-08-15 06:57] LABS: Hematocrit (blood only) 36.6 % (37-47); Hemoglobin 11.5 g/dL (12.0-16.0); Mean Corpuscular Hemoglobin 29.4 pg (25-34); Mean Corpuscular Hgb Conc 31.4 g/dL (32-36); Mean Corpuscular Volume 93.6 fL (80-100); Mean Platelet Volume 9.4 fL (7.4-10.4); Platelet Count 146 K/uL (130-400); RDW Coefficient of Variation 21.2 % (11.5-14.5); Red Blood Count 3.91 M/uL (4.2-5.4); White Blood Count 7.65 K/uL (4.8-10.8)
[2019-08-15 07:25] LABS: Albumin Level 2.7 gm/dl (3.4-5.0); BUN Creatinine Ratio 7.9 (10-20); Calcium 8.6 mg/dl (8.5-10.1); Creatinine Clr Calc Pharmacy 89.4 ml/min; Est GFR (African American) 66.9; Est GFR (Non-African American) 57.7; Magnesium 2.1 mg/dl (1.8-2.4); Potassium 3.5 mmol/L (3.5-5.1)
[2019-08-15 07:29] LABS: Albumin Globulin Ratio 0.7 (0.9-2); Bilirubin,Total 0.8 mg/dl (0.2-1); Phosphorus 1.6 mg/dl (2.5-4.9); Total Protein 6.7 gm/dl (6.4-8.2)
[2019-08-15] MEDS: FUROSEMIDE 20 MG TAB PO SCH (08:21)
[2019-08-15] MEDS: carvediloL 12.5 MG TAB PO SCH (08:21)
[2019-08-15] MEDS: DULOXETINE HCL 60 MG CAP PO SCH (08:21)
[2019-08-15] MEDS: RIFAXIMIN 550 MG TABLET PO SCH (08:22)
[2019-08-15] MEDS: PANTOprazole 40 MG TAB PO SCH (08:22)
[2019-08-15] MEDS: RIVAROXABAN 20 MG TAB PO SCH (08:22)
[2019-08-15] MEDS: OXYCODONE HCL IR 5 MG TAB (IMMEDIATE RELEASE) PO PRN (08:22)
[2019-08-15] MEDS: BACLOFEN 10 MG TAB PO SCH (08:22)
[2019-08-15] MEDS: INSULIN ASPART 100 UNITS/ML 3 ML PEN SC SCH ×2 (08:30→12:52)
[2019-08-15] MEDS: INSULIN GLARGINE 100 UNIT/ML VIAL SQ SCH (08:31)
[2019-08-15] MEDS ORDERED: POTASSIUM PHOS 3 MMOL/1 ML INFUSION IV STA (09:05)
[2019-08-15] MEDS ORDERED: POTASSIUM PHOSPHATE 15 MMOL in SODIUM CHLORIDE 0.9% 250 ML IV STA (09:09)
[2019-08-15] MEDS: POTASSIUM CHLORIDE 20 MEQ TABCR PO SCH (09:28)
[2019-08-15] MEDS ORDERED: OXYCODONE HCL IR 5 MG TAB (IMMEDIATE RELEASE) PO PRN ×2 (11:21→13:15)
--- NOTE | 2019-08-15 14:59 | Hospitalist Progress Note ---
Date of Service August 15, 2019 Assessment & Plan (1) AMS (altered mental status): (2) Liver cirrhosis secondary to MEEK: (3) Hyperammonemia: (4) Hepatic encephalopathy: Hepatic encephalopathy MEEK Cirrhosis Elevated ammonia levels ABD USD:No evidence for ascites within the body habitus limitations. No source of infection Continue lactulose to titrate at least 3-4 bowel movements per day Appreciate GI input Started on Rifaxamin GI working on Prior-Auth for Rifaxamin Plan to discharge on lactulose 30 mg 4 times daily as per recommendations from GI Mental status back to baseline Minimize narcotic use as able to avoid excess sedation Needs follow-up with GI upon discharge (5) Hypokalemia: Hypokalemia Hypophosphatemia Hypomagnesemia Secondary to GI losses Replace electrolytes as needed Monitor (6) Chronic diastolic CHF (congestive heart failure): Stable Continue home diuretics, coreg (7) Morbid obesity: BMI:63.3 (8) RIMA (obstructive sleep apnea): Patient has not been adherent with BIPAP. Overnight pulse ox from 03/26/2019 does report there was no desaturation event Needs sleep study as outpatient (9) Hypothyroidism: Continue home levothyroxine. (10) DM2 (diabetes mellitus, type 2): Last Hb A1C:10.2 Continue Insulin therapy Monitor BGs Paroxysmal Afib On xarelto for anticoagulation Continue Coreg Neuropathy Continue Duloxetine and baclofen DVT Px: On Xarelto Code Status Full Code Admission and Anticipated Discharge Date Admission Date: August 12, 2019 Subjective Patient is seen and examined at bedside States feeling much better today Had 3 large BMs this morning Discussed with gastroenterology today Reports chronic leg pain and nausea which is unchanged Denies any chest pain, shortness of breath, dizziness, abdominal pain Eager to get discharged Review of Systems Review of Systems: All systems reviewed & are unremarkable except as noted in HPI & below Physical Exam Physical Exam: Physical Exam: Vitals signs as noted above General Appearance:Morbidly Obese, no apparent distress Head: normocephalic, Atraumatic Eyes: normal inspection, EOMI Neck: supple, Trachea midline Respiratory/Chest: Normal breath sounds, CTA Cardiovascular: S1, S2, No murmur Abdomen/GI:Soft, Non tender, Bowel sounds present Extremities/Musculoskelatal:normal inspection, Trace pedal edema Neurologic/Psych:AAOX3, grossly no focal neurological deficits Skin: normal color, warm Results & Data Results & Data ([facility]) Vital Signs (Past 12 Hours) Vital Signs Temp Pulse Pulse Pulse Resp BP BP 08/15/19 14:28 36.8 C 81 20 143/88 H 08/15/19 08:00 36.8 C 81 20 143/88 H 08/15/19 07:34 81 08/15/19 03:44 37.1 C 76 16 103/68 Pulse Ox 08/15/19 14:28 99 08/15/19 08:00 99 08/15/19 07:34 08/15/19 03:44 99 Laboratory Results Short CBC 08/15/19 Range/Units 06:47 WBC 7.65 (4.8-10.8) K/uL Hgb 11.5 L (12.0-16.0) g/dL Hct 36.6 L (37-47) % Plt Count 146 (130-400) K/uL BMP 08/15/19 06:47 Sodium 137 Potassium 3.5 Chloride 105 Carbon Dioxide 28 BUN 9 Creatinine 1.08 Glucose 162 H Calcium 8.6 Liver Function 08/15/19 Range/Units 06:47 Total Bilirubin 0.8 (0.2-1) mg/dl AST 28 (15-37) U/L ALT 28 (12-78) U/L Alkaline Phosphatase 162 H (45-117) U/L Albumin 2.7 L (3.4-5.0) gm/dl (1) AMS (altered mental status) Altered mental status type: unspecified Qualified Code(s): R41.82 - Altered mental status, unspecified
--- NOTE | 2019-08-15 15:08 | Discharge Summary ---
Date of Service August 15, 2019 Admission HPI Per Admitting Provider 53-year-old female with complex past medical history of obstructive sleep apnea noncompliant with BiPAP, type 2 diabetes hypothyroidism diabetic polyneuropathy, [place] cirrhosis, history of paroxysmal A. fib on Xarelto Presented to the emergency room for altered mental status reported to have started this morning. Patient reported that she was feeling more confused this morning and slow. Patient is alert and oriented to person, place, month and year only. She responds appropriately but sluggishly. Poor historian at this time. Rest of the history obtained from ER physician who interacted with patient's friend. Calls to next of contact were unanswered. Patient was reported to be confused this morning. This was reported to have been worsening over the past few days and was more confused this morning necessita ting ER presentation. Patient reports she is adherent with all her medications. Does report some nausea, chronic intermittent abdominal discomfort and loose stool which she related to her lactulose Denied any fevers, chills Denied any vomiting, melena, hematochezia Reports occasional dysuria but none recently. Denied frequency, urgency, incontinence Denied any cough or shortness of breath or chest pain Smokes 1ppd Denied alcohol, illicit drug or OTC drug use Denied any sick contact Admission Exam Per Admitting Provider Physical Exam Constitutional: + well hydrated and + morbidly obese; no acute distress Confused. Alert and oriented to person, place, month and year only Answers appropriately but sluggishly Eyes: PERRL, conjunctivae normal, anicteric sclerae ENMT: external ear and nose normal, oropharynx normal Neck: Thick neck Respiratory: normal respiratory effort, lungs clear to auscultation Cardiovascular: Rate/Rhythm: regular rate and regular rhythm Extremities: no pedal edema Gastrointestinal (Abdomen): Inspection/Auscultation: abdomen normal to inspection and normal bowel sounds Percussion/Palpation: abdomen soft; abdomen nontender and no guarding Obese Musculoskeletal: no cyanosis or clubbing, extremities motor strength 5/5 Neurologic: moves all extremities; no focal motor deficits Alert and oriented to person, place, month and year only Sluggish response +Asterixis Principal Diagnosis Hepatic encephalopathy Hypokalemia Hypophosphatemia Hypomagnesemia Discharge Data Allergies Allergy/AdvReac Type Severity Reaction Status Date / Time Iodinated Contrast Media Allergy Intermediate hives-PT Verified 07/31/19 16:52 DENIES SEE NOTE adhesive Allergy Mild RED RASH Verified 07/31/19 16:52 CAUSED BY PAPER TAPE vancomycin AdvReac Severe renal Verified 07/31/19 16:52 failure, required dialysis x 3 MONTHS acetaminophen AdvReac Intermediate Liver Verified 07/31/19 16:52 problems. alprazolam AdvReac Intermediate MAKES Verified 07/31/19 16:52 LOOPY,DO AND SAY SILLY THINGS codeine AdvReac Intermediate UPSET Verified 07/31/19 16:52 STOMACH haloperidol AdvReac Intermediate nervous Verified 07/31/19 16:52 and anxious metformin AdvReac Intermediate HANDS FEET Verified 07/31/19 16:52 FACE NUMB methylparaben AdvReac Intermediate FLUID Verified 07/31/19 16:52 RETENTION morphine AdvReac Intermediate SWELLING Verified 07/31/19 16:52 LEGS AND FEET oxymorphone AdvReac Intermediate FLUID Verified 07/31/19 16:52 RETENTION pregabalin AdvReac Intermediate Aphasia/Speech Verified 07/31/19 16:52 impairments gabapentin AdvReac Mild Aphasia/Speech Verified 07/31/19 16:52 impairments Sulfa (Sulfonamide AdvReac Mild GI SYMPTOMS Verified 07/31/19 16:52 Antibiotics) Consultations 08/12/19 14:22 ED Decision to Admit Stat 08/12/19 16:35 Consult Case Management - Discharge Planning Routine Consult Gastroenterology Routine Procedures Performed ABD USD:No evidence for ascites within the body habitus limitations. Ordered Studies 08/13/19 10:00 US abdomen ltd ascites Routine Hospital Course (1) AMS (altered mental status): (2) Liver cirrhosis secondary to [place]: (3) Hyperammonemia: (4) Hepatic encephalopathy: Hepatic encephalopathy [place] Cirrhosis Elevated ammonia levels ABD USD:No evidence for ascites within the body habitus limitations. No source of infection Continue lactulose to titrate at least 3-4 bowel movements per day Appreciate GI input Started on Rifaxamin GI working on Prior-Auth for Rifaxamin Plan to discharge on lactulose 30 mg 4 times daily as per recommendations from GI Mental status back to baseline Minimize narcotic use as able to avoid excess sedation Needs follow-up with GI upon discharge (5) Hypokalemia: Hypokalemia Hypophosphatemia Hypomagnesemia Secondary to GI losses Replace electrolytes as needed Monitor (6) Chronic diastolic CHF (congestive heart failure): Stable Continue home diuretics, coreg (7) Morbid obesity: BMI:63.3 (8) RIMA (obstructive sleep apnea): Patient has not been adherent with BIPAP. Overnight pulse ox from 03/26/2019 does report there was no desaturation event Needs sleep study as outpatient (9) Hypothyroidism: Continue home levothyroxine. (10) DM2 (diabetes mellitus, type 2): Last Hb A1C:10.2 Continue Insulin therapy Monitor BGs Paroxysmal Afib On xarelto for anticoagulation Continue Coreg Neuropathy Continue Duloxetine and baclofen DVT Px: On Xarelto Code Status Full Code Total Time Total Time Spent Total Time Spent (In Minutes): 37 Total Time Includes: Examination of the Patient, Discharge Planning, Medication Reconciliation, Communication With Other Providers and Other Discharge Plan Discharge Items Patient Disposition: Home - Self-Care Reason For Visit: CONFUSION Discharge Diagnosis: Hepatic encephalopathy Hypokalemia Hypophosphatemia Hypomagnesemia Activity: Resume your previous activity Exercise/Sports: Gradually increase as tolerated Non-emergency contact: Primary Care Provider and Supply Chain Assistant Call non-emergency contact if: you have any medication questions, your pain is worsening and you have a fever Follow-up/Referrals: Dewey Mcfadden, [Primary Care Provider] - Diet: Carb Consistent or DM2, Heart Healthy and Low Sodium (2gm) Addtl Attending Provider Instructions: Follow-up with your primary care physician Dr. Villagomez in 1 week Follow-up with your case briefer as advised Titrate lactulose to passing three good bowel movements per day as recommended by your case briefer. Get sleep study as outpatient to rule out obstructive sleep apnea Seek immediate medical attention if your symptoms reoccur or worsen Pending Studies at Discharge: No Stand-Alone Forms: My [employer] Experience, Smoking Cessation Medications and DC Order Prescriptions: New Xifaxan 550 mg Tablet 550 mg PO BID Qty: 60 RF: 0 magnesium chloride 64 mg tablet,delayed release (DR/EC) 64 mg PO DAILY Qty: 14 RF: 0 Phosphorous 250 mg tablet 1 tab PO DAILY Qty: 14 RF: 0 Continued spironolactone [Aldactone] 25 mg tablet 25 mg PO HS RF: 0 Basaglar KwikPen U-100 Insulin 100 unit/mL (3 mL) insulin pen 90 unit SUBCUT BID RF: 0 baclofen 10 mg tablet 10 mg PO BID RF: 0 pantoprazole 40 mg tablet,delayed release (DR/EC) 40 mg PO QAM RF: 0 ferrous sulfate 325 mg (65 mg iron) tablet 325 mg PO QAM RF: 0 levothyroxine 150 mcg tablet 150 mcg PO QAM RF: 0 albuterol sulfate [Ventolin HFA] 90 mcg/actuation HFA aerosol inhaler 2 puff inhalation Q4H PRN (Reason: Shortness Of Breath) RF: 0 ranitidine HCl 150 mg tablet 150 - 300 mg PO HS RF: 0 potassium chloride 10 mEq capsule, extended release 10 meq PO BID RF: 0 prochlorperazine maleate [Compazine] 5 mg tablet 5 mg PO TID PRN (Reason: Nausea) RF: 0 insulin aspart U-100 [Novolog Flexpen U-100 Insulin] 100 unit/mL (3 mL) insulin pen 2 - 30 unit SUBCUT TIDM RF: 0 duloxetine [Cymbalta] 60 mg capsule,delayed release(DR/EC) 60 mg PO BID RF: 0 Xarelto 20 mg tablet 20 mg PO DAILY RF: 0 furosemide [Lasix] 20 mg Tablet 60 mg PO QAM RF: 0 carvedilol 12.5 mg Tablet 12.5 mg PO BID RF: 0 nortriptyline [Pamelor] 25 mg Capsule 25 mg PO HS RF: 0 nystatin 100,000 unit/gram Cream 1 applic TOPICAL BID RF: 0 mirtazapine [Remeron] 15 mg Tablet 15 mg PO HS RF: 0 hydroxyzine HCl 10 mg Tablet 10 mg PO Q6H PRN (Reason: Anxiety) RF: 0 Trulicity 1.5 mg/0.5 mL pen injector 1.5 mg SUBCUT WK RF: 0 Changed lactulose [Constulose] 10 gram/15 mL solution 30 ml PO QID Qty: 0 RF: 0 Discharge Orders: Discharge Order (Routine); Ordered 08/15/19 Ordered By: Geoffrey Card Admission Data Admit Date/Time: 08/12/19 15:32 Attending Provider: Geoffrey Card Admit Provider: Nicolasa Buenrostro I. Primary Care Provider: Dewey Mcfadden Other Providers: Nicolasa Buenrostro I. ; Jamie Guadalupe Other Interventions: Discharge Summary Assessment (RN) Last Done: 08/15/19 15:27 DC Date/Time DO NOT enter until pt leaves facility: 08/15/19 16:00
== END 2019-08-15 16:00 | disposition home or self-care (01) | DRG 442 ==
LOC: ED 12:39 → SUATTDRO 15:32 → 2S 15:32 → 2W 08-14 16:01

== ENCOUNTER 2019-08-28 23:23 | Observation (INO) ==
--- NOTE | 2019-08-28 23:48 | Emergency Department Note ---
Impression & Plan Acute hyperglycemia, Fluid overload, SOB (shortness of breath), Pain of left side of body ED Provider Note Name: EMANUEL MOSS Age: 53 Sex: F Arrives Via: Walk-In Informant: Patient ED Provider: Nic Joseph MD Chief Complaint: Left sided pain and swelling Impression: Acute Hyperglycemia Fluid Overload Shortness of Breath Pain of Left side of Body Medical Decision Makin yr old very complex medical patient with afib, cad, chf, DMII, chronic back i ssues, MEEK, cirrhosis, with many admissions for various issues and history of known medical noncompliance. Essentially is here with shortness of breath, fluid build up, headache and left sided body pain. On exam she does not look in much distress and I do not appreciate any significant unilateral swelling nor weakness other than her mildly swollen left calf compared to right. She notes left leg is usually bigger chronically. Work up she does appear somewhat in fluid overload though not fulminant CHF. BSG is almost 500 which is a bit higher than her baseline, but she seems to live in 200-300s and is in no way in DKA. She is already on Xarelto and without clear evidence DVT on difficult to interpret US I do not feel that this is PE. There is also no evidence stroke nor dissection. She is not septic. Remarkably today she is completely A&O and Ammonia is in 30s, thus no evidence hepatic encephalopathy on this visit. While she may be taking her lactulose/liver meds, I suspect she is not maintaining an appropriate insulin regimen, and may be skipping her diuretics. Both were given here and after discussion with hospitalist they will evaluate her further to try and get her sugars under better control prior to dc home. Prior Medical Record and Triage/Nursing Notes reviewed by Me Additional history obtained from record Differentials:Infection, dehydration, metabolic abnormality, hypo/hyperglycemia, electrolyte disturbance, anemia, hypoxia, cardiac sources, intracerebral event, toxicologic, neurologic, as well as other pathologies. Vital Signs: reviewed and remarkable for no significant abnormalities Interventions: Saline Lock, Insulin IV/SC, Lasix 40mg IV Labs:Reviewed and remarkable for hyperglycemia Imaging:X ray results are stated below per my interpretation: Chest: 1 view: Moderate increase congestive failure compared to recent cxr, no overt lobar infiltrate EKG:Per My Interpretation: Indication Chest pain: Afib 75 BPM with very poor baseline qtc 479 no ischemia appreciated underlying poor baseline. Similar to EKG 08/13/19. Cardiac/Tele Monitoring: Cardiac Monitoring: An Order was placed for continuous cardiac monitoring. The monitor shows a rate of 70 with a afib rhythm. Consults:Dr Merari Sanchez hospitalist service Plan: Disposition:Hospitalization. Condition: Fair Blood pressure:Normal.No Referral necessary History of Present Illness:53 yr old female wel known to me and department for her extensive PMH and frequent hospitalizations/ed visits arrives for evaluation of left sided pain and swelling. Notes several days of left sided swelling. Primarily in left leg and waxes/wanes. Admits that left calf/leg is usually large than right on chronic basis as well. Also notes swelling to face and arm, though currently all swelling has gone down. Associated with increase in her baseline chronic pain of her entire left side of body which extends to left chest and back. Notes shortness of breath both on exertion and with laying flat and talking. She is currently complaining of a posterior headache which is dull and full appearing. Denies falls, syncope, nor sudden onset of headache. Chronically she has abdominal pain in epigastrium with nausea. She is using oxycodone every 4 hours chronically for pain. Symptoms seem better with elevation and rest. She admits feeling tired, sleeping more and foggy over the last few days. No recent fevers, chills, vomiting, urinary symptoms, bowel changes, bleeding, bruising, nor other symptoms. She was admitted 3 weeks ago for hepatic encephalopathy. She has history of Afib and is on xarelto. She states she has been taking all of her medications as prescribed. ROS: See above HPI for pertinent positives & negatives. A total of 10 systems reviewed and were otherwise negative. Past Medical History:See Below Past Surgical History:See Below Family History:See Below Social History:See Below Home Medications:See Below Allergies:See Below Vitals:Blood Pressure: 118/76, Pulse 79, RR 22, T .8C, O2 98% on RA Physical Exam: GENERAL: Patient is chronically unwell appearing and in minimal distress. EYES: No scleral icterus, unremarkable pupils. ENT: large face without unilateral swelling nor evidence of angioedema, mucous membranes moist, no nasal congestion. NECK: large neck no unilateral swelling appreciated, no masses appreciated, nomeningismus, trachea is midline. RESPIRATORY: No dyspnea. Very distant lung sounds, mild crackles appreciated. No wheeze appreciated. CARDIOVASCULAR: Irregular.No murmurs, rubs, gallops appreciated. GASTROINTESTINAL: Abdomen soft, non-tender, no peritonitis.Bowel sounds positive.No masses appreciated. BACK: No midline tenderness, no CVA tenderness EXTREMITIES: Bilateral large legs with left calf TTP and mildly increased in size (3-4cm) compared to right leg. PVD skin changes noted. Normal motion all extremities, no cyanosis. NEUROLOGIC: Alert and oriented, no acute motor or sensory deficits, no focal weakness, cranial nerves grossly intact. SKIN: No rash, no jaundice, no diaphoresis. 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 Beliefs That Will Affect Care: None Current Living Situation: Spouse Current Living Situation Comment: friend/caregiver herbert vaughan current occupational status: disabled Feels Safe at Home: Yes Smoking Status: Current every day smoker Tobacco Type: cigarettes ; Cigarettes Per Day: 1/2 PPD ; Second Hand Exposure: No ; Hx Alcohol Use: No Hx Substance Use: No Allergies Allergies Allergy/AdvReac Type Severity Reaction Status Date / Time Iodinated Contrast Media Allergy Intermediate hives-PT Verified 08/29/19 00:57 DENIES SEE NOTE adhesive Allergy Mild RED RASH Verified 08/29/19 00:57 CAUSED BY PAPER TAPE vancomycin AdvReac Severe renal Verified 08/29/19 00:57 failure, required dialysis x 3 MONTHS acetaminophen AdvReac Intermediate Liver Verified 08/29/19 00:57 problems. alprazolam AdvReac Intermediate MAKES Verified 08/29/19 00:57 LOOPY,DO AND SAY SILLY THINGS codeine AdvReac Intermediate UPSET Verified 08/29/19 00:57 STOMACH haloperidol AdvReac Intermediate nervous Verified 08/29/19 00:57 and anxious metformin AdvReac Intermediate HANDS FEET Verified 08/29/19 00:57 FACE NUMB methylparaben AdvReac Intermediate FLUID Verified 08/29/19 00:57 RETENTION morphine AdvReac Intermediate SWELLING Verified 08/29/19 00:57 LEGS AND FEET oxymorphone AdvReac Intermediate FLUID Verified 08/29/19 00:57 RETENTION pregabalin AdvReac Intermediate Aphasia/Speech Verified 08/29/19 00:57 impairments gabapentin AdvReac Mild Aphasia/Speech Verified 08/29/19 00:57 impairments Sulfa (Sulfonamide AdvReac Mild GI SYMPTOMS Verified 08/29/19 00:57 Antibiotics) Home Meds Home Medications Medication Instructions Recorded Confirmed Xarelto 20 mg PO DAILY 03/12/19 08/29/19 duloxetine [Cymbalta] 60 mg PO BID 03/12/19 08/29/19 furosemide [Lasix] 60 mg PO QAM 03/12/19 08/29/19 insulin aspart U-100 [Novolog 10 unit SUBCUT TIDM 03/12/19 08/29/19 Flexpen U-100 Insulin] potassium chloride 10 meq PO BID 03/12/19 08/29/19 prochlorperazine maleate 5 mg PO TID PRN 03/12/19 08/29/19 [Compazine] carvedilol 12.5 mg PO BID 03/21/19 08/29/19 nortriptyline [Pamelor] 25 mg PO HS 03/21/19 08/29/19 spironolactone [Aldactone] 25 mg PO HS 07/05/19 08/29/19 Trulicity 1.5 mg SUBCUT WK 07/13/19 08/29/19 hydroxyzine HCl 10 mg PO Q6H PRN 07/13/19 08/29/19 mirtazapine [Remeron] 15 mg PO HS 07/13/19 08/29/19 Basaglar KwikPen U-100 Insulin 70 unit SUBCUT BID 08/01/19 08/29/19 albuterol sulfate [Ventolin HFA] 2 puff INHALATION Q4H PRN 08/01/19 08/29/19 baclofen 10 mg PO BID 08/01/19 08/29/19 ferrous sulfate 325 mg PO QAM 08/01/19 08/29/19 levothyroxine 150 mcg PO QAM 08/01/19 08/29/19 pantoprazole 40 mg PO QAM 08/01/19 08/29/19 ranitidine HCl 150 - 300 mg PO HS 08/01/19 08/29/19 benzonatate 200 mg PO TID PRN 08/29/19 08/29/19 lactulose [Constulose] 30 ml PO QID PRN 08/29/19 08/29/19 trazodone 50 mg PO HS 08/29/19 08/29/19 Previous Rx's Medication Instructions Recorded magnesium chloride 64 mg PO DAILY #14 tab 08/15/19 rifaximin [Xifaxan] 550 mg PO BID #60 tab 08/15/19 sod phos di, mono-K phos mono 1 tab PO DAILY #14 tab 08/15/19 [Phosphorous] Results & Data (ED) Vital Signs Vital Signs - 24 hr 08/28/19 23:27 08/29/19 00:36 08/29/19 01:33 Temperature 36.8 C Temperature Source Oral Pulse Rate 79 Pulse Rate [Right Finger] 88 84 Respiratory Rate 22 18 19 Respiratory Depth Normal Blood Pressure 118/76 Blood Pressure [Right Arm] 131/69 133/86 Blood Pressure Mean 90 Blood Pressure Mean [Right Arm] 89 101 Pulse Oximetry 98 97 97 Oxygen Delivery Method Room Air Room Air Sepsis Recent Fever Within 48 Hours No Sepsis New/Unexplained Change in Mental Status No Sepsis Action Taken by Nursing No Action Required Laboratory Data Result diagrams: 08/28/19 23:49 08/28/19 23:49 Lab Results 08/28/19 08/28/19 08/28/19 Range/Units 23:49 23:49 23:49 WBC 6.78 (4.8-10.8) K/uL RBC 3.83 L (4.2-5.4) M/uL Hgb 11.3 L (12.0-16.0) g/dL Hct 36.5 L (37-47) % MCV 95.3 (80-100) fL MCH 29.5 (25-34) pg MCHC 31.0 L (32-36) g/dL RDW Std Deviation 73.0 H (36.4-46.3) fL RDW Coeff of Mari 20.4 H (11.5-14.5) % Plt Count 110 L (130-400) K/uL MPV 9.8 (7.4-10.4) fL Immature Gran % (Auto) 0.1 % Neut % (Auto) 67.9 % Lymph % (Auto) 21.4 % [place] % (Auto) 7.8 % Eos % (Auto) 2.5 % Baso % (Auto) 0.3 % Immature Gran # (Auto) 0.01 (0.00-0.02) K/uL Neut # (Auto) 4.60 (1.4-6.5) K/uL Lymph # (Auto) 1.45 (1.2-3.4) K/uL [place] # (Auto) 0.53 (0.11-0.59) K/uL Eos # (Auto) 0.17 (0-0.5) K/uL Baso # (Auto) 0.02 (0-0.2) K/uL Anisocytosis Present Sodium 133 L (136-145) mmol/L Potassium 4.0 (3.5-5.1) mmol/L Chloride 99 (98-107) mmol/L Carbon Dioxide 27 (21-32) mmol/L Anion Gap 7.0 (3-11) BUN 8 (7-18) mg/dl Creatinine 1.28 H (0.6-1.2) mg/dl Est Cr Clr Drug Dosing Not Reportable Est GFR ( Amer) 54.5 Est GFR (Non-Af Amer) 47.0 BUN/Creatinine Ratio 6.2 L (10-20) Glucose 493 H* (70-99) mg/dl POC Glucose (70-99) mg/dl Calcium 8.6 (8.5-10.1) mg/dl Magnesium 2.0 (1.8-2.4) mg/dl Total Bilirubin 0.6 (0.2-1) mg/dl Direct Bilirubin 0.2 (0-0.2) mg/dl AST 33 (15-37) U/L ALT 32 (12-78) U/L Alkaline Phosphatase 182 H (45-117) U/L Ammonia 33.0 H (11-32) umol/L Troponin I < 0.015 (0-0.045) ng/ml Total Protein 7.0 (6.4-8.2) gm/dl Albumin 2.4 L (3.4-5.0) gm/dl Lipase 40 L (73-393) U/L Beta-Hydroxybutyric Acd 0.98 (0.2-2.81) mg/dl Urine Color Urine Appearance (Clear) Urine pH (4.5-7.5) Ur Specific [place] (1.000-1.030) Urine Protein (Negative) Urine Glucose (UA) (Negative) Urine Ketones (Negative) Urine Blood (Negative) Urine Nitrite (Negative) Urine Bilirubin (Negative) Urine Urobilinogen (Negative) Ur Leukocyte Esterase (Negative) Urine WBC (Auto) (0-5) /hpf Urine RBC (Auto) (0-4) /hpf U Hyaline Cast (Auto) (0-5) /lpf U Epithel Cells (Auto) (0-5) /lpf Urine Bacteria (Auto) (Negative) Urine Yeast (None Prsent) 08/29/19 08/29/19 Range/Units 01:32 Unknown WBC (4.8-10.8) K/uL RBC (4.2-5.4) M/uL Hgb (12.0-16.0) g/dL Hct (37-47) % MCV (80-100) fL MCH (25-34) pg MCHC (32-36) g/dL RDW Std Deviation (36.4-46.3) fL RDW Coeff of Mari (11.5-14.5) % Plt Count (130-400) K/uL MPV (7.4-10.4) fL Immature Gran % (Auto) % Neut % (Auto) % Lymph % (Auto) % [place] % (Auto) % Eos % (Auto) % Baso % (Auto) % Immature Gran # (Auto) (0.00-0.02) K/uL Neut # (Auto) (1.4-6.5) K/uL Lymph # (Auto) (1.2-3.4) K/uL [place] # (Auto) (0.11-0.59) K/uL Eos # (Auto) (0-0.5) K/uL Baso # (Auto) (0-0.2) K/uL Anisocytosis Sodium (136-145) mmol/L Potassium (3.5-5.1) mmol/L Chloride (98-107) mmol/L Carbon Dioxide (21-32) mmol/L Anion Gap (3-11) BUN (7-18) mg/dl Creatinine (0.6-1.2) mg/dl Est Cr Clr Drug Dosing Est GFR ( Amer) Est GFR (Non-Af Amer) BUN/Creatinine Ratio (10-20) Glucose (70-99) mg/dl POC Glucose 418 H* (70-99) mg/dl Calcium (8.5-10.1) mg/dl Magnesium (1.8-2.4) mg/dl Total Bilirubin (0.2-1) mg/dl Direct Bilirubin (0-0.2) mg/dl AST (15-37) U/L ALT (12-78) U/L Alkaline Phosphatase (45-117) U/L Ammonia (11-32) umol/L Troponin I (0-0.045) ng/ml Total Protein (6.4-8.2) gm/dl Albumin (3.4-5.0) gm/dl Lipase (73-393) U/L Beta-Hydroxybutyric Acd (0.2-2.81) mg/dl Urine Color Yellow Urine Appearance Clear (Clear) Urine pH 6.5 (4.5-7.5) Ur Specific [place] 1.030 (1.000-1.030) Urine Protein Negative (Negative) Urine Glucose (UA) 3+ H (Negative) Urine Ketones Negative (Negative) Urine Blood 2+ H (Negative) Urine Nitrite Negative (Negative) Urine Bilirubin Negative (Negative) Urine Urobilinogen Negative (Negative) Ur Leukocyte Esterase Negative (Negative) Urine WBC (Auto) 1-5 (0-5) /hpf Urine RBC (Auto) >30 H (0-4) /hpf U Hyaline Cast (Auto) 0 (0-5) /lpf U Epithel Cells (Auto) 5-10 H (0-5) /lpf Urine Bacteria (Auto) Negative (Negative) Urine Yeast Budding A (None Prsent) Administered Medications Discontinued Medications Furosemide (Lasix) 40 mg IV NOW STA Stop: 08/29/19 00:53 Last Admin: 08/29/19 01:01 Dose: 40 mg Documented by: [id number] Insulin Human Regular 10 units (/ Syringe) 10 mls @ 30 mls/min IV ONE ONE Stop: 08/29/19 01:01 Last Admin: 08/29/19 01:03 Dose: 30 mls/min Documented by: [id number] Cosigned by: [id number] Insulin Aspart (Novolog Per Unit) 30 units SC ONE STA Stop: 08/29/19 00:45 Last Admin: 08/29/19 00:52 Dose: 30 units Documented by: [id number] Cosigned by: [id number] Discharge Plan Visit Data Chief Complaint: Swelling/Edema to Extremity Stated Complaint: left side swelling ED Provider: Nic Joseph Discharge Problem: Acute hyperglycemia, Fluid overload, SOB (shortness of breath), Pain of left side of body Forms Stand Alone Forms: My [facility] Prescriptions Prescriptions: No Action spironolactone [Aldactone] 25 mg tablet 25 mg PO HS RF: 0 Basaglar KwikPen U-100 Insulin 100 unit/mL (3 mL) insulin pen 110 unit SUBCUT BID RF: 0 baclofen 10 mg tablet 10 mg PO BID RF: 0 pantoprazole 40 mg tablet,delayed release (DR/EC) 40 mg PO QAM RF: 0 ferrous sulfate 325 mg (65 mg iron) tablet 325 mg PO QAM RF: 0 levothyroxine 150 mcg tablet 150 mcg PO QAM RF: 0 albuterol sulfate [Ventolin HFA] 90 mcg/actuation HFA aerosol inhaler 2 puff inhalation Q4H PRN (Reason: Shortness Of Breath) RF: 0 ranitidine HCl 150 mg tablet 150 - 300 mg PO HS RF: 0 lactulose [Constulose] 10 gram/15 mL solution 30 ml PO QID PRN (Reason: 2-3 loose bm needed) RF: 0 trazodone 50 mg tablet 50 mg PO HS RF: 0 benzonatate 200 mg capsule 200 mg PO TID PRN (Reason: Cough) RF: 0 potassium chloride 10 mEq capsule, extended release 10 meq PO BID RF: 0 prochlorperazine maleate [Compazine] 5 mg tablet 5 mg PO TID PRN (Reason: Nausea) RF: 0 insulin aspart U-100 [Novolog Flexpen U-100 Insulin] 100 unit/mL (3 mL) insul in pen 10 unit SUBCUT TIDM RF: 0 duloxetine [Cymbalta] 60 mg capsule,delayed release(DR/EC) 60 mg PO BID RF: 0 Xarelto 20 mg tablet 20 mg PO DAILY RF: 0 furosemide [Lasix] 20 mg Tablet 60 mg PO QAM RF: 0 carvedilol 12.5 mg Tablet 12.5 mg PO BID RF: 0 nortriptyline [Pamelor] 25 mg Capsule 25 mg PO HS RF: 0 mirtazapine [Remeron] 15 mg Tablet 15 mg PO HS RF: 0 hydroxyzine HCl 10 mg Tablet 10 mg PO Q6H PRN (Reason: Anxiety) RF: 0 Trulicity 1.5 mg/0.5 mL pen injector 1.5 mg SUBCUT WK RF: 0 Xifaxan 550 mg Tablet 550 mg PO BID Qty: 60 RF: 0 magnesium chloride 64 mg tablet,delayed release (DR/EC) 64 mg PO DAILY Qty: 14 RF: 0 Phosphorous 250 mg tablet 1 tab PO DAILY Qty: 14 RF: 0 Discharge Problem: Fluid overload Qualifiers: Hypervolemia type: other Qualified Code(s): E87.79 - Other fluid overload
[2019-08-29] LABS: Basophils # (auto) 0.02 K/uL (0-0.2); Basophils % (auto) 0.3 %; Eosinophils # (auto) 0.17 K/uL (0-0.5); Eosinophils % (auto) 2.5 %; Hematocrit (blood only) 36.5 % (37-47); Hemoglobin 11.3 g/dL (12.0-16.0); Immature Granulocytes # (auto) 0.01 K/uL (0.00-0.02); Immature Granulocytes % (auto) 0.1 %; Lymphocytes # (auto) 1.45 K/uL (1.2-3.4); Lymphocytes % (auto) 21.4 %; Mean Corpuscular Hemoglobin 29.5 pg (25-34); Mean Corpuscular Volume 95.3 fL (80-100); Mean Platelet Volume 9.8 fL (7.4-10.4); Monocytes # (auto) 0.53 K/uL (0.11-0.59); Monocytes % (auto) 7.8 %; Neutrophils % (auto) 67.9 %; Platelet Count 110 K/uL (130-400); RDW Coefficient of Variation 20.4 % (11.5-14.5); Red Blood Count 3.83 M/uL (4.2-5.4); White Blood Count 6.78 K/uL (4.8-10.8)
[2019-08-29 00:30] LABS: Anisocytosis Present
[2019-08-29 00:31] LABS: Alanine Aminotransferase 32 U/L (12-78); Albumin Level 2.4 gm/dl (3.4-5.0); Alkaline Phosphatase 182 U/L (45-117); Aspartate Aminotransferase 33 U/L (15-37); BUN Creatinine Ratio 6.2 (10-20); Bilirubin Direct 0.2 mg/dl (0-0.2); Bilirubin,Total 0.6 mg/dl (0.2-1); Blood Urea Nitrogen 8 mg/dl (7-18); Calcium 8.6 mg/dl (8.5-10.1); Carbon Dioxide 27 mmol/L (21-32); Chloride 99 mmol/L (98-107); Est GFR (African American) 54.5; Glucose 493 mg/dl (70-99); Lipase 40 U/L (73-393); Sodium 133 mmol/L (136-145); Troponin I < 0.015 ng/ml (0-0.045)
[2019-08-29 00:43] LABS: Beta-Hydroxybutyrate 0.98 mg/dl (0.2-2.81)
[2019-08-29] MEDS ORDERED: INSULIN ASPART PER UNIT SC STA (00:44)
[2019-08-29] MEDS ORDERED: FUROSEMIDE 40 MG/4 ML VIAL IV STA (00:52)
[2019-08-29] MEDS ORDERED: INSULIN HUMAN REGULAR PER UNIT 10 UNITS in SYRINGE 9.9 ML IV ONE (01:00)
[2019-08-29 01:20] LABS: Appearance Urine Clear (Clear); Bacteria Urine Automated Negative (Negative); Bilirubin Urine Negative (Negative); Blood Urine 2+ (Negative); Cast Urine Automated 0 /lpf (0-5); Color Urine Yellow; Glucose Urine UA 3+ (Negative); Ketones Urine Negative (Negative); Leukocyte Esterase Urine Negative (Negative); Nitrite Urine Negative (Negative); Protein Urine Negative (Negative); Urobilinogen Urine Negative (Negative); pH Urine 6.5 (4.5-7.5)
[2019-08-29 01:38] LABS: RBC Urine Automated >30 /hpf (0-4)
[2019-08-29] MEDS ORDERED: NovoLIN-R INSULIN PER UNIT CHARGE IV STA (02:06)
[2019-08-29] MEDS ORDERED: ALBUTEROL HFA 8 GM INHALER INH PRN (02:55)
[2019-08-29] MEDS ORDERED: hydrOXYzine HCl 10 MG TAB PO PRN (02:55)
[2019-08-29] MEDS ORDERED: BENZONATATE 100 MG CAPSULE PO PRN (02:55)
[2019-08-29] MEDS ORDERED: ONDANSETRON INJ 2 MG/ML 2 ML VIAL IV PRN (02:55)
[2019-08-29] MEDS ORDERED: INSULIN HUMAN REGULAR PER UNIT 4 UNITS in SYRINGE 0 ML IV STA (03:09)
[2019-08-29] MEDS ORDERED: PHARMACY GLYCEMIC MGMT CONSULT PRN (03:27)
[2019-08-29] MEDS ORDERED: LACTULOSE SYRUP 20 GM/30 ML UDC PO PRN (03:43)
[2019-08-29] MEDS: INSULIN ASPART 100 UNITS/ML 3 ML PEN SC SCH ×3 (04:20→12:53)
[2019-08-29] MEDS ORDERED: TRAZODONE HCL 50 MG TAB PO ONE (04:33)
[2019-08-29] MEDS ORDERED: MIRTAZAPINE TAB 15 MG TAB PO ONE (04:33)
[2019-08-29] MEDS ORDERED: HYDROmorphone INJ 0.5 MG/0.5 ML SYR IV STA (04:33)
--- NOTE | 2019-08-29 06:11 | History and Physical Report ---
DATE OF ADMISSION: 08/29/2019 CHIEF COMPLAINT: Subjective feeling of swelling of the face and extremities, hyperglycemia. HISTORY OF PRESENT ILLNESS: This is a 53-year-old female with past medical history significant for obstructive sleep apnea, noncompliant with BiPAP, type 2 diabetes, hypothyroidism, diabetic polyneuropathy, cirrhosis, history of paroxysmal atrial fibrillation on Xarelto, history of PE in the past, hyperlipidemia, hypothyroidism, COPD, hypertension, morbid obesity, GERD, history of tobacco dependence, migraines, history of bipolar I depression, hx of deep venous thrombosis. She presents with subjective feeling of facial swelling and also complains of left lower extremity swelling which seemed to improved and also having pain in the left lower extremity that is radiating to the left back side and left arm. In the Er found to have sugars in the 500s. She says recently her insulin was changed to 110 units b.i.d. Resting comfortably and hemodynamically stable. Has chronic mild headaches. No blurred vision, no earache, no runny nose, no sore throat, no difficulty swallowing. Has smoker's cough. No chest pain. Has some shortness of breath on exertion. No nausea, no vomiting. Has abdominal pain from her hernia. Moving bowels with lactulose. No blood in the stools or black stools. Normal bladder movements. Currently, no rash. ALLERGIES: IODINATED CONTRAST MEDIA, ADHESIVES, VANCOMYCIN, ACETAMINOPHEN, ALPRAZOLAM, CODEINE, HALOPERIDOL, METFORMIN, METHYLPARABEN, MORPHINE, OXYMORPHONE, PREGABALIN, GABAPENTIN, SULFA ANTIBIOTICS. PAST MEDICAL HISTORY: As mentioned above. PAST SURGICAL HISTORY: Right knee arthroplasty, colonoscopy with biopsy, EGDs, implant mesh for abdominal hernia, appendectomy, cholecystectomy, sinus surgery, total abdominal hysterectomy with removal of tubes. MEDICATIONS: The patient is on Xifaxan 550 mg p.o. b.i.d., magnesium 64 mg p.o. daily, phosphorus 250 mg tablet 1 tablet daily, spironolactone 25 mg at bedtime, Basaglar insulin 110 units b.i.d., baclofen 10 mg p.o. b.i.d., Protonix 40 mg p.o. a.m., ferrous sulfate 325 mg p.o. a.m., levothyroxine 150 mcg a.m., albuterol 2 puffs q. 4 hours p.r.n., Zantac 150 mg p.o. at bedtime, potassium chloride 10 mEq p.o. b.i.d., Compazine 5 mg p.o. t.i.d. p.r.n., insulin sliding scale, Cymbalta 60 mg p.o. b.i.d., Xarelto 20 mg p.o. daily, Lasix 60 mg p.o. a.m., Coreg 12.5 mg p.o. b.i.d., nortriptyline 25 mg p.o. at bedtime, Nystatin topical b.i.d., Remeron 15 mg p.o. at bedtime, hydroxyzine 10 mg p.o. q. 6 hours p.r.n. Trulicity 1.5 subcutaneous weekly, lactulose 30 mL p.o. q.i.d. FAMILY HISTORY: Significant for father had liver cancer; mother has heart disorder, lung disorder; brother had cirrhosis and alcoholism. REVIEW OF SYSTEMS: As per HPI. Rest of review of systems are negative. PHYSICAL EXAMINATION: GENERAL: The patient is morbidly obese, not in acute distress. VITAL SIGNS: Temperature 36.8, pulse 84, respiratory rate 19, blood pressure 133/86, oxygen 97% on room air. HEENT: No pallor, no icterus. Pupils equal, round, reactive to light. NECK: Supple, no neck masses. CARDIOVASCULAR: S1, S2 heard, regular rate and rhythm, no murmur, no gallop. RESPIRATORY SYSTEM: Normal AP diameter. No accessory muscle use. No wheezing, no crackles. ABDOMEN: Soft, bowel sounds present. Mild abdominal discomfort. No guarding. No rigidity. CENTRAL NERVOUS SYSTEM: Cranial nerves II-XII grossly intact, nonfocal. EXTREMITIES: No edema, no erythema. Chronic skin changes seen. LABORATORY DATA: WBC 6.7, hemoglobin 11.3, hematocrit 36.5, platelets 110. Sodium 133, potassium 4, chloride 99, bicarbonate 27, BUN 8, creatinine 1.28, glucose 493, calcium 8.6, magnesium 2, total bilirubin 0.6, direct bilirubin 0.2, AST 33, ALT 32, alkaline phosphatase 182, ammonia 33. Troponin I less than 0.015. Lipase 40. Beta hydroxybutyric acid 0.9. Urinalysis, +3 ketones. EKG: Atrial fibrillation with rapid ventricular response at rate of 117, no acute ST changes seen. IMAGING DATA: Chest x-ray, mild congestion, poor inspiratory effort. CT of the head and venous Doppler results are pending. ASSESSMENT AND PLAN: This 53-year-old female presents complaining of edema in the face and some pain in the left lower extremity and found to have hyperglycemia. 1. History of MEEK cirrhosis, on Lasix 60 mg daily and lactulose. Ammonia is 33. Possible volume overload, which seems to be mostly subjective. Received a dose of IV Lasix in the ER. We will monitor. 2. Hyperglycemia, history of diabetes. Recently Basaglar insulin was increased to 110 b.i.d., which will be continued. Continue sliding scale. Hold Trulicity. Received a dose of IV insulin in the ER. We will closely monitor the blood sugars, follow the HbA1c levels and adjust the insulin regimen. 3. History of atrial fibrillation, on Xarelto and Coreg. We will monitor. 4. Hypothyroidism. Continue Synthroid. 5. Obstructive sleep apnea,Non compliant with BiPAP. Last admission,nocturnal pulse ox was okay. Needs followup with PCP as outpatient. 6. History of morbidly morbid obesity, needs counseling. 7. Chronic diastolic congestive heart failure. Continue home Coreg and Lasix. Received a dose of IV Lasix in the ER, we will monitor. 8. Electrolyte abnormalities, continue home potassium and phosphorus. Follow the labs. 9. History of neuropathy. Complains of left lower extremity pain. HAd venous Doppler, which we will follow. She is already on Xarelto, on Cymbalta and Baclofen. 10. Deep venous thrombosis prophylaxis, on Xarelto. DISPOSITION: Observation in medical floor. Level 1 full code. Expect to discharge home and follow with family doctor. VJD
[2019-08-29] MEDS ORDERED: LEVOTHYROXINE SODIUM 150 MCG TABLET PO SCH (06:30)
--- NOTE | 2019-08-29 06:34 | Ultrasound Report ---
LEFT LOWER EXTREMITY VENOUS DOPPLER CLINICAL HISTORY: left leg swelling COMPARISON STUDY: Left lower extremity venous Doppler ultrasound May 12, 2018. TECHNIQUE: Sonography of the deep venous system of the left lower extremity was performed. Compressi on and augmentation were evaluated. FINDINGS: This study is compromised by suboptimal penetration. The left common femoral, superficial f emoral and popliteal veins were compressible. Augmentation was normal. Flow was shown within the deep calf vessels. IMPRESSION: Technically difficult exam but no evidence of deep venous thrombus within the left lower extremity. ACT 112: Negative or not required by law. Electronically signed by: Vini Alvarado M.D. 08/29/2019 6:33 AM
--- NOTE | 2019-08-29 06:40 | XRay Report ---
XR chest 1V portable CLINICAL HISTORY: chest pain, shortness of breath COMPARISON STUDY: Chest radiograph August 12, 2019. FINDINGS: Patient is rotated. No pneumothorax or pleural effusion is noted. Cardiomegaly is unchanged . Allowing for patient rotation, mediastinal contours are stable. There is no evidence for pulmonary edema. There is no lobar consolidation. Exam is mildly compromised by suboptimal penetration. The serge earance of the chest is unchanged. IMPRESSION: No acute cardiopulmonary findings. No change in appearance of the chest. ACT 112: Negative or not required by law. Electronically signed by: Vini Alvarado M.D. 08/29/2019 6:39 AM
--- NOTE | 2019-08-29 06:45 | CT Scan Report ---
CT OF THE HEAD WITHOUT CONTRAST CLINICAL HISTORY: left sided pain and on xarelto COMPARISON STUDY: Head CT July 31, 2019. CT DOSE: 1040.96 mGy.cm TECHNIQUE: Helical axial images of the head were obtained without IV contrast. Automated exposure con trol was utilized for the study. A dose lowering technique was utilized adhering to the principles o f ALARA. FINDINGS: This exam is mildly compromised by artifact. No acute intracranial hemorrhage, midline shif t or mass effect is present. The ventricular system is unremarkable. The basilar cisterns are patent. No extra-axial collections are present. There are no findings to suggest acute dural sinus thrombosi s or acute territorial infarct. No significant calvarial abnormalities are present. Visualized portio ns of the sinuses and mastoid air cells are clear. IMPRESSION: No acute intracranial findings. ACT 112: Negative or not required by law. Electronically signed by: Vini Alvarado M.D. 08/29/2019 6:43 AM
[2019-08-29] MEDS ORDERED: MAGNESIUM CHLORIDE 64MG DELAYED REL TAB PO SCH (09:00)
[2019-08-29] MEDS ORDERED: POT PHOSPHATE MONOBASIC W/ SOD TAB PO SCH (09:00)
[2019-08-29] MEDS ORDERED: DULOXETINE HCL 60 MG CAP PO SCH (09:00)
[2019-08-29] MEDS ORDERED: carvediloL 12.5 MG TAB PO SCH (09:00)
[2019-08-29] MEDS ORDERED: PANTOprazole 40 MG TAB PO SCH (09:00)
[2019-08-29] MEDS ORDERED: INSULIN GLARGINE 100 UNIT/ML VIAL SQ SCH (09:00)
[2019-08-29] MEDS ORDERED: FERROUS SULFATE 325 MG TAB PO SCH (09:00)
[2019-08-29] MEDS ORDERED: BACLOFEN 10 MG TAB PO SCH (09:00)
[2019-08-29] MEDS ORDERED: FUROSEMIDE 20 MG TAB PO SCH (09:00)
[2019-08-29] MEDS ORDERED: POTASSIUM CHLORIDE 10 MEQ TABCR PO SCH (09:00)
[2019-08-29] MEDS ORDERED: RIVAROXABAN 20 MG TAB PO SCH (09:00)
[2019-08-29] MEDS ORDERED: RIFAXIMIN 550 MG TABLET PO SCH (09:00)
--- NOTE | 2019-08-29 09:28 | Electrocardiogram Report ---
Test Reason : Blood Pressure : / mmHG Vent. Rate : 080 BPM Atrial Rate : 000 BPM P-R Int : 000 ms QRS Dur : 068 ms QT Int : 344 ms P-R-T Axes : 000 074 078 degrees QTc Int : 397 ms Poor data quality, interpretation may be adversely affected Probable Sinus rhythm Low voltage QRS Abnormal ECG When compared with ECG of 13-AUG-2019 06:16, artifact now present Otherwise no significant change Confirmed by Jorge A Villar ([id number]) on 08/29/2019 9:28:16 AM Referred By: REFERRED SELF Confirmed By:Jorge A Villar
--- NOTE | 2019-08-29 11:35 | Pharmacy Report ---
Glycemic Control Consultation - Date of Service August 29, 2019 - Scope Scope: Glycemic Pharmacist consulted for glycemic control and to write orders per [facility] inpatient glycemic control protocol. - Objective Weight: 164.1 kg Accuchecks BSG (last 24hrs): Laboratory Data (last 24hrs): 08/28/19 23:49 Potassium 4.0 Carbon Dioxide 27 Anion Gap 7.0 Creatinine 1.28 H Est Cr Clr Drug Dosing Not Reportable Beta-Hydroxybutyric Acd 0.98 - Recent Pertinent Medications Outpatient Anti-diabetic Regimen: * Lantus 110 units SQ BID??? (Previous records indicate 70 units BID) * Novolog 10 units ACHS + SSI * Trulicity 1.5 mg SQ weekly (administers every Tuesday, unknown if received prior to admission) * A1c = 10.2% on 07/15/2019 The patient is currently receiving: * Basal insulin: Lantus 110 units every 12 hours * Correctional Insulin: Novolog Correction per scale ACHS Goal Range: Low 110 mg/dL - High 140 mg/dL Correction Factor: 15 mg/dL/unit * Prandial insulin: Per carb ratio of 1 unit per 5 grams CHO consumed Risk Factors for Insulin Resistance: * Diet: T2DM / Low Sodium - Assessment & Plan Assessment & Plan: ASSESSMENT: * 53 yo F admitted secondary to subjective feeling of facial and lower extremity swelling. Found to be severely hyperglycemia. Patient is well known to pharmacy glycemic services. * In ED, patient's BSG was 493 mg/dL and she received a 10 units IV insulin bolus at that time. She was also given 30 units of Novolog at this time. * This AM her BSG was down to 244 mg/dL. She was started on her home dose of Lantus 110 units BID. Last dose was 5/5 AM. Novolog was started with a CF/CR of 15/5 based on weight and stress of 2. Recently increased to 110 units BID as an outpatient. Believe there is some component of non-compliance / inappropriate injection technique because during previous admission, patient has required ~ 100 units of basal insulin per day. Patient has required ~ 70% of her home dose during previous admissions so I will plan for a Lantus scale tonight to reflect this data. Will have evening shift pharmacist follow up tonight. * Beta-hydroxybutyric acid was 0.98, AG was 7 and there were no ketones in her UA. PLAN FOR INPATIENT GLYCEMIC CONTROL: * Basal insulin * Lantus 50-60 units SQ BID - see eMAR for further details * Bolus insulin * NovoLog per scale ACHS or Q6hrs while NPO * Goal Range: Low 110 mg/dL - High 140 mg/dL * Correction Factor: 15 mg/dL/unit * Nutritional / Prandial insulin per carb ratio of 1 unit per 5 grams CHO consumed * Please note that the plan above was derived based on current level of insulin resistance and hospital stress. These recommendations are appropriate for inpatient admission only. Plan of care upon discharge will need to be reassessed to avoid potential outpatient hypo/hyperglycemia. Thank you.
--- NOTE | 2019-08-29 13:56 | Hospitalist Progress Note ---
Date of Service August 29, 2019 Assessment & Plan (1) Acute hyperglycemia: Patient is a 53 yr female with multiple comorbidities presents complaining of edema in the face and some pain in the left lower extremity and found to have hyperglycemia. Uncontrolled DM II Hyperglycemia: ? Compliance Last Hb A1C:10.2 in June Recently her Basaglar insulin was increased to 110 BID by her PCP Continue Insulin sliding scale therapy Appreciate input from glycemic pharmacy Will make no changes in insulin therapy upon discharge Will need close follow-up with PCP upon discharge MEEK cirrhosis No signs of decompensation Continue Lasix, lactulose, rifaximin Follows with gastroenterology as outpatient Subjective feeling of facial swelling CXR:No acute cardiopulmonary findings. No change in appearance of the chest. Venous Doppler:Technically difficult exam but no evidence of deep venous thrombus within the left lower extremity. No tenderness/rash/focal swelling noted Continue home diuretics Atrial fibrillation Currently in sinus Rate controlled Continue Carvedilol Continue Xarelto for anticoagulation Hypothyroidism Continue levothyroxine Obstructive sleep apnea Non compliant with BiPAP Needs follow up as outpatient Morbid Obesity BMI:64 Chronic diastolic congestive heart failure No signs of decompensation Continue home diuretics H/O Neuropathy Continue home meds DVT Px: On Xarelto. Admission and Anticipated Discharge Date Admission Date: August 29, 2019 Subjective Patient is seen and examined at bedside Eager to get discharged Reports headache Denies any chest pain, SOB, dizziness, nausea, abd pain Offers no other complaints Review of Systems Review of Systems: All systems reviewed & are unremarkable except as noted in HPI & below Physical Exam Physical Exam: Physical Exam: Vitals signs as noted above General Appearance:Morbidly Obese, no apparent distress Head: normocephalic, Atraumatic Eyes: normal inspection, EOMI Neck: supple, Trachea midline Respiratory/Chest: Normal breath sounds, CTA Cardiovascular: S1, S2, No murmur Abdomen/GI:Soft, Non tender, Bowel sounds present Extremities/Musculoskelatal:normal inspection, Trace pedal edema Neurologic/Psych:AAOX3, grossly no focal neurological deficits Skin: normal color, warm Results & Data Results & Data ([facility]) Vital Signs (Past 12 Hours) Vital Signs Temp Pulse Pulse Resp BP BP Pulse Ox 08/29/19 06:54 36.6 C 70 18 106/62 92 08/29/19 02:59 37 C 85 18 176/85 H 97 08/29/19 02:40 89 18 137/73 97 Laboratory Results Short CBC 08/28/19 Range/Units 23:49 WBC 6.78 (4.8-10.8) K/uL Hgb 11.3 L (12.0-16.0) g/dL Hct 36.5 L (37-47) % Plt Count 110 L (130-400) K/uL BMP 08/28/19 23:49 Sodium 133 L Potassium 4.0 Chloride 99 Carbon Dioxide 27 BUN 8 Creatinine 1.28 H Glucose 493 H* Calcium 8.6 Cardiac Enzymes 08/28/19 Range/Units 23:49 Troponin I < 0.015 (0-0.045) ng/ml Liver Function 08/28/19 Range/Units 23:49 Total Bilirubin 0.6 (0.2-1) mg/dl Direct Bilirubin 0.2 (0-0.2) mg/dl AST 33 (15-37) U/L ALT 32 (12-78) U/L Alkaline Phosphatase 182 H (45-117) U/L Albumin 2.4 L (3.4-5.0) gm/dl Urine 08/29/19 Range/Units Unknown Urine Color Yellow Urine Appearance Clear (Clear) Urine pH 6.5 (4.5-7.5) Ur Specific [place] 1.030 (1.000-1.030) Urine Protein Negative (Negative) Urine Glucose (UA) 3+ H (Negative)
--- NOTE | 2019-08-29 14:16 | Discharge Summary ---
Date of Service August 29, 2019 Admission HPI Per Admitting Provider CHIEF COMPLAINT: Subjective feeling of swelling of the face and extremities, hyperglycemia. HISTORY OF PRESENT ILLNESS: This is a 53-year-old female with past medical history significant for obstructive sleep apnea, noncompliant with BiPAP, type 2 diabetes, hypothyroidism, diabetic polyneuropathy, cirrhosis, history of paroxysmal atrial fibrillation on Xarelto, history of PE in the past, hyperlipidemia, hypothyroidism, COPD, hypertension, morbid obesity, GERD, history of tobacco dependence, migraines, history of bipolar I depression, hx of deep venous thrombosis. She presents with subjective feeling of facial swelling and also complains of left lower extremity swelling which seemed to improved and also having pain in the left lower extremity that is radiating to the left back side and left arm. In the Er found to have sugars in the 500s. She says recently her insulin was changed to 110 units b.i.d. Resting comfortably and hemodynamically stable. Has chronic mild headaches. No blurred vision, no earache, no runny nose, no sore throat, no difficulty swallowing. Has smoker's cough. No chest pain. Has some shortness of breath on exertion. No nausea, no vomiting. Has abdominal pain from her hernia. Moving bowels with lactulose. No blood in the stools or black stools. Normal bladder movements. Currently, no rash. Admission Exam Per Admitting Provider PHYSICAL EXAMINATION: GENERAL: The patient is morbidly obese, not in acute distress. VITAL SIGNS: Temperature 36.8, pulse 84, respiratory rate 19, blood pressure 133/86, oxygen 97% on room air. HEENT: No pallor, no icterus. Pupils equal, round, reactive to light. NECK: Supple, no neck masses. CARDIOVASCULAR: S1, S2 heard, regular rate and rhythm, no murmur, no gallop. RESPIRATORY SYSTEM: Normal AP diameter. No accessory muscle use. No wheezing, no crackles. ABDOMEN: Soft, bowel sounds present. Mild abdominal discomfort. No guarding. No rigidity. CENTRAL NERVOUS SYSTEM: Cranial nerves II-XII grossly intact, nonfocal. EXTREMITIES: No edema, no erythema. Chronic skin changes seen. Principal Diagnosis Uncontrolled DM II Discharge Data Allergies Allergy/AdvReac Type Severity Reaction Status Date / Time Iodinated Contrast Media Allergy Intermediate hives-PT Verified 08/29/19 00:57 DENIES SEE NOTE adhesive Allergy Mild RED RASH Verified 08/29/19 00:57 CAUSED BY PAPER TAPE vancomycin AdvReac Severe renal Verified 08/29/19 00:57 failure, required dialysis x 3 MONTHS acetaminophen AdvReac Intermediate Liver Verified 08/29/19 00:57 problems. alprazolam AdvReac Intermediate MAKES Verified 08/29/19 00:57 LOOPY,DO AND SAY SILLY THINGS codeine AdvReac Intermediate UPSET Verified 08/29/19 00:57 STOMACH haloperidol AdvReac Intermediate nervous Verified 08/29/19 00:57 and anxious metformin AdvReac Intermediate HANDS FEET Verified 08/29/19 00:57 FACE NUMB methylparaben AdvReac Intermediate FLUID Verified 08/29/19 00:57 RETENTION morphine AdvReac Intermediate SWELLING Verified 08/29/19 00:57 LEGS AND FEET oxymorphone AdvReac Intermediate FLUID Verified 08/29/19 00:57 RETENTION pregabalin AdvReac Intermediate Aphasia/Speech Verified 08/29/19 00:57 impairments gabapentin AdvReac Mild Aphasia/Speech Verified 08/29/19 00:57 impairments Sulfa (Sulfonamide AdvReac Mild GI SYMPTOMS Verified 08/29/19 00:57 Antibiotics) Consultations 08/29/19 00:53 ED Decision to Admit Stat 08/29/19 02:55 Consult Case Management - Discharge Planning Routine Procedures Performed CXR:No acute cardiopulmonary findings. No change in appearance of the chest. Venous Doppler:Technically difficult exam but no evidence of deep venous thrombus within the left lower extremity. Ordered Studies 08/28/19 23:38 CT head/brain wo con Urgent US venous doppler LE LT Urgent Hospital Course (1) Acute hyperglycemia: Patient is a 53 yr female with multiple comorbidities presents complaining of edema in the face and some pain in the left lower extremity and found to have hyperglycemia. Uncontrolled DM II Hyperglycemia: ? Compliance Last Hb A1C:10.2 in June Recently her Basaglar insulin was increased to 110 BID by her PCP Continue Insulin sliding scale therapy Appreciate input from glycemic pharmacy Will make no changes in insulin therapy upon discharge Will need close follow-up with PCP upon discharge MEEK cirrhosis No signs of decompensation Continue Lasix, lactulose, rifaximin Follows with gastroenterology as outpatient Subjective feeling of facial swelling CXR:No acute cardiopulmonary findings. No change in appearance of the chest. Venous Doppler:Technically difficult exam but no evidence of deep venous thrombus within the left lower extremity. No tenderness/rash/focal swelling noted Continue home diuretics Atrial fibrillation Currently in sinus Rate controlled Continue Carvedilol Continue Xarelto for anticoagulation Hypothyroidism Continue levothyroxine Obstructive sleep apnea Non compliant with BiPAP Needs follow up as outpatient Morbid Obesity BMI:64 Chronic diastolic congestive heart failure No signs of decompensation Continue home diuretics H/O Neuropathy Continue home meds DVT Px: On Xarelto. Total Time Total Time Spent Total Time Spent (In Minutes): 25 Total Time Includes: Examination of the Patient, Discharge Planning, Medication Reconciliation, Communication With Other Providers and Other Discharge Plan Discharge Items Patient Disposition: Home - Self-Care Reason For Visit: SWELLING, LEG PAIN Discharge Diagnosis: Uncontrolled DM Type II Activity: Resume your previous activity Exercise/Sports: Gradually increase as tolerated Non-emergency contact: Primary Care Provider Call non-emergency contact if: you have any medication questions, your symptoms worsen, your pain is not controlled, your pain is worsening, your pain is unusual for you and your pain is concerning for you Follow-up/Referrals: Dewey Mcfadden, [Primary Care Provider] - Diet: Carb Consistent or DM2 and Heart Healthy Addtl Attending Provider Instructions: Follow-up with Dr. Isis Grady for primary care on August 31, 2019 at 11:40 AM Your Urine Culture is pending at the time of discharge. Follow-up with your physician for results. Seek immediate medical attention if your symptoms reoccur or worsen Pending Studies at Discharge: Yes Studies:: Urine Culture Stand-Alone Forms: My [facility], Smoking Cessation Medications and DC Order Prescriptions: Continued spironolactone [Aldactone] 25 mg tablet 25 mg PO HS RF: 0 Basaglar KwikPen U-100 Insulin 100 unit/mL (3 mL) insulin pen 110 unit SUBCUT BID RF: 0 baclofen 10 mg tablet 10 mg PO BID RF: 0 pantoprazole 40 mg tablet,delayed release (DR/EC) 40 mg PO QAM RF: 0 ferrous sulfate 325 mg (65 mg iron) tablet 325 mg PO QAM RF: 0 levothyroxine 150 mcg tablet 150 mcg PO QAM RF: 0 albuterol sulfate [Ventolin HFA] 90 mcg/actuation HFA aerosol inhaler 2 puff inhalation Q4H PRN (Reason: Shortness Of Breath) RF: 0 ranitidine HCl 150 mg tablet 150 - 300 mg PO HS RF: 0 lactulose [Constulose] 10 gram/15 mL solution 30 ml PO QID PRN (Reason: 2-3 loose bm needed) RF: 0 trazodone 50 mg tablet 50 mg PO HS RF: 0 benzonatate 200 mg capsule 200 mg PO TID PRN (Reason: Cough) RF: 0 potassium chloride 10 mEq capsule, extended release 10 meq PO BID RF: 0 prochlorperazine maleate [Compazine] 5 mg tablet 5 mg PO TID PRN (Reason: Nausea) RF: 0 insulin aspart U-100 [Novolog Flexpen U-100 Insulin] 100 unit/mL (3 mL) insulin pen 10 unit SUBCUT TIDM RF: 0 duloxetine [Cymbalta] 60 mg capsule,delayed release(DR/EC) 60 mg PO BID RF: 0 Xarelto 20 mg tablet 20 mg PO DAILY RF: 0 furosemide [Lasix] 20 mg Tablet 60 mg PO QAM RF: 0 carvedilol 12.5 mg Tablet 12.5 mg PO BID RF: 0 nortriptyline [Pamelor] 25 mg Capsule 25 mg PO HS RF: 0 mirtazapine [Remeron] 15 mg Tablet 15 mg PO HS RF: 0 hydroxyzine HCl 10 mg Tablet 10 mg PO Q6H PRN (Reason: Anxiety) RF: 0 Trulicity 1.5 mg/0.5 mL pen injector 1.5 mg SUBCUT WK RF: 0 Xifaxan 550 mg Tablet 550 mg PO BID Qty: 60 RF: 0 magnesium chloride 64 mg tablet,delayed release (DR/EC) 64 mg PO DAILY Qty: 14 RF: 0 Phosphorous 250 mg tablet 1 tab PO DAILY Qty: 14 RF: 0 Discharge Orders: Discharge Order (Routine); Ordered 08/29/19 Ordered By: Geoffrey Card Admission Data Admit Date/Time: 08/29/19 02:06 Attending Provider: Geoffrey Card Admit Provider: Izaiah Gage Primary Care Provider: Dewey Mcfadden Other Providers: Izaiah Gage Other Interventions: Discharge Summary Assessment (RN) Last Done: 08/29/19 15:27 DC Date/Time DO NOT enter until pt leaves facility: 08/29/19 15:57
[2019-08-29] MEDS ORDERED: TRAZODONE HCL 50 MG TAB PO SCH (21:00)
[2019-08-29] MEDS ORDERED: INSULIN GLARGINE SOLOSTAR 100 UNITS/ML 3 ML PEN SC SCH (21:00)
[2019-08-29] MEDS ORDERED: MIRTAZAPINE TAB 15 MG TAB PO SCH (21:00)
[2019-08-29] MEDS ORDERED: NORTRIPTYLINE HCL 25 MG CAP PO SCH (21:00)
[2019-08-29] MEDS ORDERED: SPIRONOLACTONE 25 MG TAB PO SCH (21:00)
[2019-08-30] MEDS ORDERED: INSULIN ASPART 100 UNITS/ML 3 ML PEN SC SCH
== END 2019-08-29 15:57 | disposition home or self-care (01) ==
LOC: 2N 23:23 → ED 23:23 → 2N 08-29 02:40

== ENCOUNTER 2019-10-05 08:30 | Inpatient (IN) ==
--- NOTE | 2019-10-05 09:01 | Emergency Department Note ---
Impression & Plan Acute respiratory failure with hypoxia and hypercarbia, Weakness, Hypoxia ED Provider Note Provider: Reji Kang MD DATE OF SERVICE: 10/05/2019 CHIEF COMPLAINT: Confusion, weakness, left-sided pain HISTORY OF PRESENT ILLNESS: Patient is a 53-year-old female with complex chronic past medical history including atrial fibrillation on Xarelto, cirrhosis, GI bleeds, hypothyroidism, obesity, thyroid dysfunction chronic pain presenting today with report of worsening confusion. Patient was evaluated in the emergency department last evening for similar. Patient states things have worsened overnight at home. Patient states that she is quite fatigued but did not get much sleep. Patient states that she feels confused and groggy. States that her caregiver noticed this as well. Patient states compliance with her home medications including lactulose. States a mild headache that started about an hour ago as well as some mild left-sided whole body pain. Patient states that she has had no falls. Not normally on oxygen at home. Denies compliance with BiPAP at home. REVIEW OF SYSTEMS: A total of 10 review of systems was obtained and negative except as stated above in the HPI. PAST MEDICAL HISTORY: As noted above MEDICATIONS: Reviewed her medication list which includes Xarelto, baclofen, insulin, levothyroxine, trazodone, Xifaxan, lactulose SOCIAL HISTORY: Patient is a smoker. Patient currently disabled. No alcohol use reported. PHYSICAL EXAM: GENERAL: alert and oriented in no acute distress on stretcher resting with eyes closed, appears fatigued Head: normocephalic and atraumatic EYES: No injection, discharge or icterus. PERRL NECK: Trachea midline. Supple. ENT: Mucous membranes pink and moist. LUNGS: Airway patent. No retractions. Breath sounds with some scattered expiratory wheeze. HEART: Regular rate and rhythm. No chest wall tenderness ABDOMEN: Soft and non-tender, without guarding or rebound. SKIN: Acyanotic, warm, dry EXTREMITIES: Patient with chronic lower extremity swelling mild bilateral pedal edema is noted with stasis changes. No acute traumatic injuries appreciated or acute deformity NEUROLOGICAL: No focal deficits. No aphasia. No facial droop or slurred speech. EK bpm first-degree AV block with some baseline artifact. No acute ST segment elevation is noted. Low amplitude. QTC 469. Compared to the previous available from yesterday night, appears similar. CONTINUOUS CARDIAC MONITORING: was ordered and showed a heart rate of 71 bpm in 1st degree AV block Patient's hypertension was referred to the hospitalist [facility] COURSE: [id number] Patient was first seen and H&P performed. 1025 Patient reassessed and updated. Patient was updated on the findings and in agreement with the plan. Will place on BiPAP she is still very fatigued. 1045 Discussed with Leatha Parks [facility] team. Patient's laboratory studies and imaging reviewed. Differential includes Infection, dehydration, metabolic abnormality, hy po/hyperglycemia, electrolyte disturbance, anemia, hypoxia, cardiac sources, intracerebral event, toxicologic, neurologic, as well as other pathologies. IMPRESSION/MEDICAL DECISION MAKING: Patient presents complaining of worsening fatigue and grogginess. Does have a history of cirrhosis. Did review medical record from yesterday evening when she was previously evaluated in the emergency department for similar. Patient with some left-sided pain but no trauma reported and likely more consistent with her history of chronic pain issues. Do not give additional narcotics while here as she is fatigued and groggy on exam. Patient states this is worsened. Patient states compliance to medication denies traumatic falls. Patient does endorse some entire left-sided body pain without significant focal tenderness and again no trauma. Patient endorses some mild headache. Patient is on a blood thinner. Given this a CT of the head was completed again as well as basic laboratory studies including VBG and ammonia level. Patient does have a history of chronic mild headaches. Patient is supposed to use BiPAP at night. Noted here to be hypercarbic with some acidosis likely precipitating her confusion today. Renal function appears to be improving. Ammonia is not significantly elevated. Troponins negative. TSH mildly altered. Given the white count is noted on yesterday's lab which is improved and today at about 12, a procalcitonin was sent. Urinalysis reminder not impressive and UA from today is pending. Chest x-ray without evidence of pneumonia. Do feel that given the patient's obesity and hypercarbia she requires further inpatient care. We will give a dose of DuoNeb as well as magnesium to see this improve her respiratory status. Patient very fatigued on reexam falling asleep. Given this placed on BiPAP. Patient not normally on oxygen during the day. States noncompliance with BiPAP. Discussed with the [facility]ist further inpatient care. DIAGNOSIS: Confusion/weakness, hypercarbic respiratory failure DISPOSITION: Hospitalist will evaluate Patient was agreeable with this plan. Discussed return precautions and advised follow up. Critical Care I have personally spent 31 minutes of critical care time in the direct manage ment of this patient. This includes bedside care, interpretation of diagnostic studies, and testing, discussion with consultants, patient, and family members, and other required patient management activities. These 31 minutes is in excess of all separately billable procedures. Past Med/Surg History Medical History (Updated 10/05/19 @ 12:52 by Amanda Parks PA-C) Abdominal wall cellulitis (Inactive) Acute hepatic encephalopathy (Inactive) Atrial fibrillation by electrocardiogram (Acute) DX: 2013 TAKES XARELTO AND FOLLOW WITH MEDICAL DOCTOR Bowel obstruction (Resolved) Cauda equina compression (Inactive) Cellulitis and abscess of trunk (Resolved Unknown) Chronic low back pain (Acute) 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) RIGHT AND LEFT LEG AND THEN MOVED LUNG - 2001 Diabetes Diabetic neuropathy (Chronic 01/04/11) Fracture of fourth metatarsal bone of left foot (Resolved) Gastritis (Acute) Hyperammonemia Hypokalemia (Resolved) Hypomagnesemia (Inactive) Incarcerated ventral hernia (Resolved) Kidney stone HX OF AND HAD LITHOTRIPSY RIMA (obstructive sleep apnea) HX OF AND NO CURRENT PROBLEM Pyelonephritis (Inactive) Rectal bleeding Septic shock Severe sepsis (Inactive) Splenomegaly, not elsewhere classified (Inactive) Supratherapeutic INR (Inactive) UTI (urinary tract infection) (Inactive) Surgical History (Updated 10/05/19 @ 11:06 by Amanda Parks PA-C) History of appendectomy History of arthroplasty of right knee Hx of lithotripsy Hx of ventral hernia repair S/P cholecystectomy S/P sinus surgery S/P MARLEE (total abdominal hysterectomy) Family History (Updated 10/05/19 @ 11:07 by Amanda Parks PA-C) Father Cancer Liver Brother Kidney disease Renal failure Cirrhosis Brother Cirrhosis Other Family history non-contributory Social History (Updated 10/05/19 @ 11:07 by Amanda Parks PA-C) Preferred Language: Cuban Communication Ability: Effective 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 Beliefs That Will Affect Care: None Current Living Situation: Other Current Living Situation Comment: friend/caregiver herbert vaughan current occupational status: disabled Other Information That Helps Us Care for You: No Feels Safe at Home: Yes Smoking Status: Current every day smoker Tobacco Type: cigarettes ; Cigarettes Per Day: 1/2 PPD ; Do You Dip or Chew Tobacco: No ; Second Hand Exposure: Yes ; Tobacco Cessation Education Requested by Patient: No Hx Alcohol Use: No Hx Substance Use: No Allergies Allergies Allergy/AdvReac Type Severity Reaction Status Date / Time Iodinated Contrast Media Allergy Intermediate hives-PT Verified 10/05/19 09:47 DENIES SEE NOTE adhesive Allergy Mild RED RASH Verified 10/05/19 09:47 CAUSED BY PAPER TAPE vancomycin AdvReac Severe renal Verified 10/05/19 09:47 failure, required dialysis x 3 MONTHS acetaminophen AdvReac Intermediate Liver Verified 10/05/19 09:47 problems. alprazolam AdvReac Intermediate MAKES Verified 10/05/19 09:47 LOOPY,DO AND SAY SILLY THINGS codeine AdvReac Intermediate UPSET Verified 10/05/19 09:47 STOMACH haloperidol AdvReac Intermediate nervous Verified 10/05/19 09:47 and anxious metformin AdvReac Intermediate HANDS FEET Verified 10/05/19 09:47 FACE NUMB methylparaben AdvReac Intermediate FLUID Verified 10/05/19 09:47 RETENTION morphine AdvReac Intermediate SWELLING Verified 10/05/19 09:47 LEGS AND FEET oxymorphone AdvReac Intermediate FLUID Verified 10/05/19 09:47 RETENTION pregabalin AdvReac Intermediate Aphasia/Speech Verified 10/05/19 09:47 impairments gabapentin AdvReac Mild Aphasia/Speech Verified 10/05/19 09:47 impairments Sulfa (Sulfonamide AdvReac Mild GI SYMPTOMS Verified 10/05/19 09:47 Antibiotics) Home Meds Home Medications Medication Instructions Recorded Confirmed Xarelto 20 mg PO PM 03/12/19 10/05/19 duloxetine [Cymbalta] 60 mg PO BID 03/12/19 10/05/19 furosemide [Lasix] 60 mg PO QAM 03/12/19 10/05/19 insulin aspart U-100 [Novolog 15 unit SUBCUT TIDM 03/12/19 10/05/19 Flexpen U-100 Insulin] potassium chloride 10 meq PO BID 03/12/19 10/05/19 prochlorperazine maleate 5 mg PO TID PRN 03/12/19 10/05/19 [Compazine] carvedilol 12.5 mg PO BID 03/21/19 10/05/19 nortriptyline [Pamelor] 25 mg PO HS 03/21/19 10/05/19 spironolactone [Aldactone] 25 mg PO HS 07/05/19 10/05/19 Trulicity 1.5 mg SUBCUT WE 07/13/19 10/05/19 Basaglar KwikPen U-100 Insulin 120 unit SUBCUT BID 08/01/19 10/05/19 albuterol sulfate [Ventolin HFA] 2 puff INHALATION Q4H PRN 08/01/19 10/05/19 baclofen 10 mg PO BID 08/01/19 10/05/19 ferrous sulfate 325 mg PO QAM 08/01/19 10/05/19 levothyroxine 150 mcg PO QAM 08/01/19 10/05/19 pantoprazole 40 mg PO QAM 08/01/19 10/05/19 benzonatate 200 mg PO TID PRN 08/29/19 10/05/19 lactulose [Constulose] 30 ml PO QID 08/29/19 10/05/19 trazodone 50 mg PO HS 08/29/19 10/05/19 famotidine 20 mg PO BID 09/17/19 10/05/19 oxycodone 10 mg PO QID PRN 09/17/19 10/05/19 albuterol sulfate 2.5 mg INHALATION Q4 PRN 10/04/19 10/05/19 sod phos di, mono-K phos mono 1 tab PO DAILY 10/04/19 10/05/19 [Virt-Phos 250 Neutral] magnesium chloride 64 mg PO PM 10/05/19 10/05/19 Previous Rx's Medication Instructions Recorded Xifaxan 550 mg PO BID #60 tab 08/15/19 Results & Data (ED) Vital Signs Vital Signs - 24 hr 10/05/19 08:38 10/05/19 08:48 10/05/19 09:01 Pulse Rate 78 74 73 Pulse Rate [Apical] Pulse Rate from SpO2 Sensor 75 75 Pulse Rhythm Regular Pulse Rhythm [Apical] Pulse Strength Normal Pulse Strength [Apical] Respiratory Rate 20 14 15 Respiratory Effort / Characteristics Non-Labored Spontaneous Respiratory Depth Normal Respiratory Pattern Regular Blood Pressure 107/73 121/74 141/89 H Blood Pressure [Right Arm] Blood Pressure Mean 84 88 111 Blood Pressure Mean [Right Arm] Blood Pressure Position Sitting Blood Pressure Position [Right Arm] Pulse Oximetry 91 98 97 Oxygen Delivery Method Room Air Oxygen Flow Rate 2 2 Fraction of Inspired Oxygen Sepsis Recent Fever Within 48 Hours No Sepsis Action Taken by Nursing No Action Required 10/05/19 09:13 10/05/19 09:30 10/05/19 10:14 Pulse Rate 75 74 Pulse Rate [Apical] 76 Pulse Rate from SpO2 Sensor 75 74 Pulse Rhythm Pulse Rhythm [Apical] Regular Pulse Strength Pulse Strength [Apical] Normal Respiratory Rate 14 15 18 Respiratory Effort / Characteristics Non-Labored Spontaneous Respiratory Depth Normal Respiratory Pattern Blood Pressure 111/83 121/72 Blood Pressure [Right Arm] 129/86 Blood Pressure Mean 89 101 Blood Pressure Mean [Right Arm] 100 Blood Pressure Position Blood Pressure Position [Right Arm] Semi-fowlers Pulse Oximetry 96 97 91 Oxygen Delivery Method Nasal Cannula Oxygen Flow Rate 2 2 2 Fraction of Inspired Oxygen Sepsis Recent Fever Within 48 Hours Sepsis Action Taken by Nursing 10/05/19 10:31 10/05/19 10:48 10/05/19 11:00 Pulse Rate 74 70 69 Pulse Rate [Apical] 70 Pulse Rate from SpO2 Sensor 75 69 Pulse Rhythm Pulse Rhythm [Apical] Pulse Strength Pulse Strength [Apical] Respiratory Rate 13 16 14 Respiratory Effort / Characteristics Spontaneous Respiratory Depth Normal Respiratory Pattern Blood Pressure 123/70 121/60 Blood Pressure [Right Arm] Blood Pressure Mean 99 79 Blood Pressure Mean [Right Arm] Blood Pressure Position Blood Pressure Position [Right Arm] Pulse Oximetry 98 98 99 Oxygen Delivery Method Nasal Cannula BiPAP Oxygen Flow Rate 2 2 Fraction of Inspired Oxygen 30 Sepsis Recent Fever Within 48 Hours Sepsis Action Taken by Nursing Laboratory Data Result diagrams: 10/05/19 09:06 10/05/19 09:06 Lab Results 10/05/19 10/05/19 10/05/19 Range/Units 09:06 09:06 09:06 WBC 11.99 H (4.8-10.8) K/uL RBC 4.07 L (4.2-5.4) M/uL Hgb 13.5 (12.0-16.0) g/dL Hct 40.6 (37-47) % MCV 99.8 (80-100) fL MCH 33.2 (25-34) pg MCHC 33.3 (32-36) g/dL RDW Std Deviation 66.2 H (36.4-46.3) fL RDW Coeff of Mari 17.9 H (11.5-14.5) % Plt Count 171 (130-400) K/uL MPV 9.3 (7.4-10.4) fL Immature Gran % (Auto) 0.4 % Neut % (Auto) 67.9 % Lymph % (Auto) 20.4 % Emery % (Auto) 8.2 % Eos % (Auto) 2.8 % Baso % (Auto) 0.3 % Immature Gran # (Auto) 0.05 H (0.00-0.02) K/uL Neut # (Auto) 8.14 H (1.4-6.5) K/uL Lymph # (Auto) 2.45 (1.2-3.4) K/uL Emery # (Auto) 0.98 H (0.11-0.59) K/uL Eos # (Auto) 0.33 (0-0.5) K/uL Baso # (Auto) 0.04 (0-0.2) K/uL PT 13.8 H (9.0-12.0) Seconds INR 1.3 H (0.9-1.1) VBG pH (7.36-7.41) VBG pCO2 (38-50) mmHg VBG pO2 mmHg VBG HCO3 mmol/L VBG O2 Saturation % VBG Base Excess mEq/L Barometric Pressure mm/Hg Sodium 136 (136-145) mmol/L Potassium 3.5 (3.5-5.1) mmol/L Chloride 102 (98-107) mmol/L Carbon Dioxide 28 (21-32) mmol/L Anion Gap 6.0 (3-11) BUN 17 (7-18) mg/dl Creatinine 1.59 H (0.6-1.2) mg/dl Est Cr Clr Drug Dosing Not Reportable Est GFR ( Amer) 41.9 Est GFR (Non-Af Amer) 36.2 BUN/Creatinine Ratio 10.4 (10-20) Glucose 179 H (70-99) mg/dl Lactate (0.4-2.0) mmol/L Calcium 8.9 (8.5-10.1) mg/dl Magnesium 1.8 (1.8-2.4) mg/dl Total Bilirubin 1.2 H (0.2-1) mg/dl AST 38 H (15-37) U/L ALT 36 (12-78) U/L Alkaline Phosphatase 199 H (45-117) U/L Ammonia (11-32) umol/L Troponin I < 0.015 (0-0.045) ng/ml Total Protein 7.4 (6.4-8.2) gm/dl Albumin 2.8 L (3.4-5.0) gm/dl Globulin 4.6 H (2.5-4.0) gm/dl Albumin/Globulin Ratio 0.6 L (0.9-2) Procalcitonin (0-0.5) ng/ml TSH 4.520 H (0.300-4.500) uIu/ml 10/05/19 10/05/19 10/05/19 Range/Units 09:06 09:06 09:06 WBC (4.8-10.8) K/uL RBC (4.2-5.4) M/uL Hgb (12.0-16.0) g/dL Hct (37-47) % MCV (80-100) fL MCH (25-34) pg MCHC (32-36) g/dL RDW Std Deviation (36.4-46.3) fL RDW Coeff of Mari (11.5-14.5) % Plt Count (130-400) K/uL MPV (7.4-10.4) fL Immature Gran % (Auto) % Neut % (Auto) % Lymph % (Auto) % Emery % (Auto) % Eos % (Auto) % Baso % (Auto) % Immature Gran # (Auto) (0.00-0.02) K/uL Neut # (Auto) (1.4-6.5) K/uL Lymph # (Auto) (1.2-3.4) K/uL Emery # (Auto) (0.11-0.59) K/uL Eos # (Auto) (0-0.5) K/uL Baso # (Auto) (0-0.2) K/uL PT (9.0-12.0) Seconds INR (0.9-1.1) VBG pH 7.29 L (7.36-7.41) VBG pCO2 62 H (38-50) mmHg VBG pO2 39 mmHg VBG HCO3 29 mmol/L VBG O2 Saturation 64.5 % VBG Base Excess 1.3 mEq/L Barometric Pressure 735.8 mm/Hg Sodium (136-145) mmol/L Potassium (3.5-5.1) mmol/L Chloride (98-107) mmol/L Carbon Dioxide (21-32) mmol/L Anion Gap (3-11) BUN (7-18) mg/dl Creatinine (0.6-1.2) mg/dl Est Cr Clr Drug Dosing Est GFR ( Amer) Est GFR (Non-Af Amer) BUN/Creatinine Ratio (10-20) Glucose (70-99) mg/dl Lactate 1.8 (0.4-2.0) mmol/L Calcium (8.5-10.1) mg/dl Magnesium (1.8-2.4) mg/dl Total Bilirubin (0.2-1) mg/dl AST (15-37) U/L ALT (12-78) U/L Alkaline Phosphatase (45-117) U/L Ammonia 37.8 H (11-32) umol/L Troponin I (0-0.045) ng/ml Total Protein (6.4-8.2) gm/dl Albumin (3.4-5.0) gm/dl Globulin (2.5-4.0) gm/dl Albumin/Globulin Ratio (0.9-2) Procalcitonin (0-0.5) ng/ml TSH (0.300-4.500) uIu/ml 10/05/19 Range/Units 09:06 WBC (4.8-10.8) K/uL RBC (4.2-5.4) M/uL Hgb (12.0-16.0) g/dL Hct (37-47) % MCV (80-100) fL MCH (25-34) pg MCHC (32-36) g/dL RDW Std Deviation (36.4-46.3) fL RDW Coeff of Mari (11.5-14.5) % Plt Count (130-400) K/uL MPV (7.4-10.4) fL Immature Gran % (Auto) % Neut % (Auto) % Lymph % (Auto) % Emery % (Auto) % Eos % (Auto) % Baso % (Auto) % Immature Gran # (Auto) (0.00-0.02) K/uL Neut # (Auto) (1.4-6.5) K/uL Lymph # (Auto) (1.2-3.4) K/uL Emery # (Auto) (0.11-0.59) K/uL Eos # (Auto) (0-0.5) K/uL Baso # (Auto) (0-0.2) K/uL PT (9.0-12.0) Seconds INR (0.9-1.1) VBG pH (7.36-7.41) VBG pCO2 (38-50) mmHg VBG pO2 mmHg VBG HCO3 mmol/L VBG O2 Saturation % VBG Base Excess mEq/L Barometric Pressure mm/Hg Sodium (136-145) mmol/L Potassium (3.5-5.1) mmol/L Chloride (98-107) mmol/L Carbon Dioxide (21-32) mmol/L Anion Gap (3-11) BUN (7-18) mg/dl Creatinine (0.6-1.2) mg/dl Est Cr Clr Drug Dosing Est GFR ( Amer) Est GFR (Non-Af Amer) BUN/Creatinine Ratio (10-20) Glucose (70-99) mg/dl Lactate (0.4-2.0) mmol/L Calcium (8.5-10.1) mg/dl Magnesium (1.8-2.4) mg/dl Total Bilirubin (0.2-1) mg/dl AST (15-37) U/L ALT (12-78) U/L Alkaline Phosphatase (45-117) U/L Ammonia (11-32) umol/L Troponin I (0-0.045) ng/ml Total Protein (6.4-8.2) gm/dl Albumin (3.4-5.0) gm/dl Globulin (2.5-4.0) gm/dl Albumin/Globulin Ratio (0.9-2) Procalcitonin 0.35 (0-0.5) ng/ml TSH (0.300-4.500) uIu/ml Administered Medications Ceftriaxone Sodium 2,000 mg/ (Dextrose) 50 mls @ 100 mls/hr IV Q24H PAUL; Pro tocol Stop: 10/10/19 11:44 Last Admin: 10/05/19 11:51 Dose: Not Given Documented by: [id number] Discontinued Medications Albuterol (Duoneb) 3 ml NEB NOW STA Stop: 10/05/19 09:58 Last Admin: 10/05/19 10:40 Dose: 3 ml Documented by: [id number] Ceftriaxone Sodium (Rocephin) Confirm Administered Dose 2,000 mg IV .STK-MED ONE Stop: 10/05/19 11:44 Last Admin: 10/05/19 11:51 Dose: 2,000 mg Documented by: [id number] Magnesium Sulfate/Dextrose (Magnesium Sulfate / D5w) 1 gm in 100 mls @ 100 mls/hr IV NOW STA Stop: 10/05/19 10:56 Last Infusion: 10/05/19 11:33 Dose: 0 mls/hr Documented by: [id number] Admin: 10/05/19 10:31 Dose: 100 mls/hr Documented by: [id number] Discharge Plan Visit Data *Final* Discharge Date/Time: 10/05/19 12:43 Chief Complaint: Altered Mental Status Stated Complaint: AMMONIA - HERE OTHER DAY; GETTING WORSE ED Provider: Reji Kang Discharge Problem: Acute respiratory failure with hypoxia and hypercarbia, Weakness, Hypoxia Patient Disposition: Admitted As Inpatient Discharge Instructions Interventions: ED Discharge Assessment Last Done: 10/05/19 12:43
--- NOTE | 2019-10-05 09:15 | XRay Report ---
XR chest 1V portable CLINICAL HISTORY: weakness COMPARISON STUDY: No previous studies for comparison. FINDINGS: Lung volumes are normal. Lungs are clear. There is no pneumothorax or pleural effusion. Car diac size is stable. Mediastinal contours are normal. There is no evidence for pulmonary edema. IMPRESSION: No acute cardiopulmonary findings. No change in appearance of the chest. ACT 112: Negative or not required by law. Electronically signed by: Vini Alvarado M.D. 10/05/2019 9:14 AM
[2019-10-05 09:19] LABS: Basophils # (auto) 0.04 K/uL (0-0.2); Basophils % (auto) 0.3 %; Eosinophils # (auto) 0.33 K/uL (0-0.5); Eosinophils % (auto) 2.8 %; Hematocrit (blood only) 40.6 % (37-47); Hemoglobin 13.5 g/dL (12.0-16.0); Immature Granulocytes # (auto) 0.05 K/uL (0.00-0.02); Immature Granulocytes % (auto) 0.4 %; Lymphocytes # (auto) 2.45 K/uL (1.2-3.4); Lymphocytes % (auto) 20.4 %; Mean Corpuscular Hemoglobin 33.2 pg (25-34); Mean Corpuscular Hgb Conc 33.3 g/dL (32-36); Mean Corpuscular Volume 99.8 fL (80-100); Mean Platelet Volume 9.3 fL (7.4-10.4); Monocytes # (auto) 0.98 K/uL (0.11-0.59); Monocytes % (auto) 8.2 %; Neutrophils # (auto) 8.14 K/uL (1.4-6.5); Neutrophils % (auto) 67.9 %; Platelet Count 171 K/uL (130-400); RDW Coefficient of Variation 17.9 % (11.5-14.5); RDW Standard Deviation 66.2 fL (36.4-46.3); Red Blood Count 4.07 M/uL (4.2-5.4); White Blood Count 11.99 K/uL (4.8-10.8)
[2019-10-05 09:24] LABS: Base Excess VBG 1.3 mEq/L; Oxygen Saturation VBG 64.5 %; pH VBG 7.29 (7.36-7.41)
[2019-10-05 09:33] LABS: INR 1.3 (0.9-1.1); Prothrombin Time 13.8 Seconds (9.0-12.0)
[2019-10-05 09:36] LABS: Alanine Aminotransferase 36 U/L (12-78); Albumin Level 2.8 gm/dl (3.4-5.0); Aspartate Aminotransferase 38 U/L (15-37); BUN Creatinine Ratio 10.4 (10-20); Blood Urea Nitrogen 17 mg/dl (7-18); Calcium 8.9 mg/dl (8.5-10.1); Carbon Dioxide 28 mmol/L (21-32); Chloride 102 mmol/L (98-107); Est GFR (African American) 41.9; Est GFR (Non-African American) 36.2; Glucose 179 mg/dl (70-99); Magnesium 1.8 mg/dl (1.8-2.4); Potassium 3.5 mmol/L (3.5-5.1); Sodium 136 mmol/L (136-145)
[2019-10-05 09:46] LABS: Albumin Globulin Ratio 0.6 (0.9-2); Alkaline Phosphatase 199 U/L (45-117); Bilirubin,Total 1.2 mg/dl (0.2-1); Globulin 4.6 gm/dl (2.5-4.0); Total Protein 7.4 gm/dl (6.4-8.2); Troponin I < 0.015 ng/ml (0-0.045)
[2019-10-05] MEDS ORDERED: ALBUT/IPRATROP 3MG/0.5MG NEB 3 ML VIAL NEB STA (09:57)
[2019-10-05] MEDS ORDERED: MAGNESIUM SULFATE / D5W 1 GM/100 ML BAG IV STA (09:57)
--- NOTE | 2019-10-05 10:17 | CT Scan Report ---
CT head/brain wo con CLINICAL HISTORY: confusion, worsening COMPARISON STUDY: 10/04/2019 TECHNIQUE: Axial CT of the brain is performed from the vertex to the skull base. IV contrast was not administered for this examination. A dose lowering technique was utilized adhering to the principles of ALARA. CT DOSE: 1400.53 mGy.cm FINDINGS: No intra or extra-axial mass lesions are visualized. There is no CT evidence of acute cortical infarc tion. There is no evidence of midline shift. There is no acute hemorrhage. No calvarial fractures ar e visualized. There is no evidence of pathologic ventricular dilatation. There is no evidence of acute sinusitis IMPRESSION: No acute intracranial findings ACT 112: Negative or not required by law. Electronically signed by: Romie Lincoln M.D. 10/05/2019 10:15 AM
[2019-10-05] MEDS ORDERED: cefTRIAXone SODIUM 2000MG/70ML D5W IV ONE (11:43)
[2019-10-05] MEDS ORDERED: cefTRIAXone SODIUM 2,000 MG in DEXTROSE 5% 50 ML IV SCH (11:45)
[2019-10-05] MEDS ORDERED: LACTULOSE 200 GM, WATER, STERILE IRRIG 700 ML, BARCODE IDENTIFIER 1 EA PR ONE (11:46)
--- NOTE | 2019-10-05 12:05 | Communication Note ---
Date of Service: October 05, 2019 History and physical exam obtained by me. History is significant for 53 year old woman with obstructive sleep apnea, noncompliant with BiPAP, type 2 diabetes, hypothyroidism, diabetic polyneuropathy, cirrhosis, history of paroxysmal atrial fibrillation on Xarelto, history of PE in the past, hyperlipidemia, hypothyroidism, COPD, hypertension, morbid obesity, GERD, history of tobacco dependence, migraines, history of bipolar I depression, hx of deep venous thrombosis who presented with confusion. Patient was drowsy but arousable during evaluation. Limited history from patient. Other history from ER provider. Patient reported she has Detailed history as documented by Amanda Parks PA-C Physical exam General: Obese woman, drowsy but arousable on BIPAP, no obvious distress Eyes: PERRL, conjunctivae normal, not pale, EOM intact bilaterally ENMT: External ear and nose normal, oropharynx normal Respiratory: On BIPAP, no respiratory distress, lungs clear to auscultation, no crackles and no wheezes Cardiovascular: Pulse is RRR.S1-2, +pedal edema Gastrointestinal (Abdomen): Obese, Abdomen is not distended, soft, non-tender to palpation, no guarding, no palpable hepatosplenomegaly, normal bowel sounds Genitourinary: No suprapubic tenderness Skin: No rash noted on gross inspection, No ulcers noted Neurologic: Drowsy but arousable, moves extremities, limited exam due to mental status, No focal deficits noted, oriented to person, place, month and year only Labs remarkable for VBG pH of 7.29, PCO2 of 62, ammonia level of 37.8, UA with 5-10 WBC, AlP 199, AST 38, Fady 1.2 CT head is unremarkable for any acute abnormalities -Altered mental status/Confusion -Acute hypercapneic respiratory failure -RIMA, noncompliant with BIPAP -HAZEL Altered mental status likely due to hypercapneic resp failure Other possibilities include possible UTI EKG does not show ischemic changes and trop is negative Currently on BIPAP. Check ABG Monitor mental status Hold any sedating meds or opioids NPO for now while on BIPAP with accucheck q6 If still NPO by night, will need to reduce insulin dose Hold lasix for today and monitor cr Empiric ceft for now until urine culture results Other plans as detailed in Leatha Parks PA-C's note
[2019-10-05 12:06] LABS: Base Excess ABG 0.5 mEq/L (-9-1.8); HCO3 ABG 27 mmol/L (19-24); Oxygen Saturation ABG 96.3 % (90-95); PCO2 ABG 54 mmHg (35-46); PO2 ABG 87 mmHg (80-95); pH ABG 7.32 (7.35-7.45)
[2019-10-05 12:07] LABS: Allen Test Pos (Pos)
--- NOTE | 2019-10-05 12:09 | History & Physical Report ---
Date of Service October 05, 2019 Assessment & Plan (1) Acute confusion: (2) Hypercarbia: (3) Morbid obesity: (4) RIMA (obstructive sleep apnea): Patient is a morbidly obese female who presented with altered mental status to the ED. She has RIMA and is chronically noncompliant with her CPAP. She doesn't know when she last used it. Noted to have hypercarbia on VBG. ABG ordered. Continue BiPAP pending improvement in mentation. Then continue PRN or O2 PRN to maintain SaO2 >88%. Serum Carbon dioxide level was 28- within norm. Admit to PCU Vitals stable- monitor closely for changes. 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 Ammonia level mildly elevated. Will give WA Lactulose x 1 dose. Then continue typical dose for now. Repeat CMP, ammonia level tomorrow (7) HAZEL (acute kidney injury): (8) Chronic diastolic CHF (congestive heart failure): (9) Leukocytosis: UA was slightly dirty last night. Urine culture pending. Will check urine tox as well. Patient on Oxycodone as outpatient from a back surgeon in [place]. Prior drug-seeking behavior per records. Start Ceftriaxone pending urine culture. UTI is possible cause of confusion. HAEZL. On chronic Lasix 60 mg daily. Hold today. Hold on fluids for now with hx diastolic CHF. NPO for now. Hopefully if mentation improves, can start PO fluids/diet tonight. (10) DM2 (diabetes mellitus, type 2): Poorly controlled DM with high insulin needs as an outpatient. Check Q6h BSG today. Consult pharmacy for glycemic control. (11) Hypothyroid: TSH slightly elevated. Continue current dose. (12) History of blood clots: (13) DVT prophylaxis: Continue Xarelto History of Present Illness Chief Complaint: Altered Mental Status Primary Care Provider: Dewey Mcfadden DO Patient is a 53 yo morbidly obese female with a complicated past medical history including Type 2 DM with polyneuropathy, hypothyroidism, RIMA noncompliant with CPAP, COPD, HTN, MEEK with cirrhosis, GERD, spinal stenosis of the lumbar spine with chronic low back pain, and bipolar I with depression who presented to the ED with altered mental status. The patient is currently unable to answer many questions due to drowsiness. History obtained mostly from the ED doctor. Patient presented overnight to the ED with complaint of increased confusion throughout the day yesterday that was noticed by her caregiver. She was concerned that she may have hyperammonemia again, but her level was in the 60s. She has been taking her lactulose per last night's record. Head CT at that time was negative. She was discharged home. She presented again this morning with further increased confusion and drowsiness. She also noted pain on the left side of her body and a slight headache. Repeat Head CT was negative again today. Urinalysis last night showed mild WBCs and 1+ bacteria. Culture pending. Ammonia level very slightly elevated this AM. She was supposed to be starting Xifaxam as an outpatient but uncertain if she has started this yet or not. She is currently on BiPAP when seen/examined. VBG showed hypercarbia. Mildly elevated WBC count. CXR unremarkable. Allergies Allergy/AdvReac Type Severity Reaction Status Date / Time Iodinated Contrast Media Allergy Intermediate hives-PT Verified 10/05/19 09:47 DENIES SEE NOTE adhesive Allergy Mild RED RASH Verified 10/05/19 09:47 CAUSED BY PAPER TAPE vancomycin AdvReac Severe renal Verified 10/05/19 09:47 failure, required dialysis x 3 MONTHS acetaminophen AdvReac Intermediate Liver Verified 10/05/19 09:47 problems. alprazolam AdvReac Intermediate MAKES Verified 10/05/19 09:47 LOOPY,DO AND SAY SILLY THINGS codeine AdvReac Intermediate UPSET Verified 10/05/19 09:47 STOMACH haloperidol AdvReac Intermediate nervous Verified 10/05/19 09:47 and anxious metformin AdvReac Intermediate HANDS FEET Verified 10/05/19 09:47 FACE NUMB methylparaben AdvReac Intermediate FLUID Verified 10/05/19 09:47 RETENTION morphine AdvReac Intermediate SWELLING Verified 10/05/19 09:47 LEGS AND FEET oxymorphone AdvReac Intermediate FLUID Verified 10/05/19 09:47 RETENTION pregabalin AdvReac Intermediate Aphasia/Speech Verified 10/05/19 09:47 impairments gabapentin AdvReac Mild Aphasia/Speech Verified 10/05/19 09:47 impairments Sulfa (Sulfonamide AdvReac Mild GI SYMPTOMS Verified 10/05/19 09:47 Antibiotics) Home Medications Home Medications Medication Instructions Recorded Confirmed Type Ernarelgiovanni 20 mg PO PM 03/12/19 10/05/19 History duloxetine [Cymbalta] 60 mg PO BID 03/12/19 10/05/19 History furosemide [Lasix] 60 mg PO QAM 03/12/19 10/05/19 History insulin aspart U-100 [Novolog 15 unit SUBCUT TIDM 03/12/19 10/05/19 History Flexpen U-100 Insulin] potassium chloride 10 meq PO BID 03/12/19 10/05/19 History prochlorperazine maleate 5 mg PO TID PRN 03/12/19 10/05/19 History [Compazine] carvedilol 12.5 mg PO BID 03/21/19 10/05/19 History nortriptyline [Pamelor] 25 mg PO HS 03/21/19 10/05/19 History spironolactone [Aldactone] 25 mg PO HS 07/05/19 10/05/19 History Trulicity 1.5 mg SUBCUT WE 07/13/19 10/05/19 History Basaglar KwikPen U-100 Insulin 120 unit SUBCUT BID 08/01/19 10/05/19 History albuterol sulfate [Ventolin HFA] 2 puff INHALATION Q4H PRN 08/01/19 10/05/19 History baclofen 10 mg PO BID 08/01/19 10/05/19 History ferrous sulfate 325 mg PO QAM 08/01/19 10/05/19 History levothyroxine 150 mcg PO QAM 08/01/19 10/05/19 History pantoprazole 40 mg PO QAM 08/01/19 10/05/19 History Xifaxan 550 mg PO BID #60 tab 08/15/19 10/05/19 Rx benzonatate 200 mg PO TID PRN 08/29/19 10/05/19 History lactulose [Constulose] 30 ml PO QID 08/29/19 10/05/19 History trazodone 50 mg PO HS 08/29/19 10/05/19 History famotidine 20 mg PO BID 09/17/19 10/05/19 History oxycodone 10 mg PO QID PRN 09/17/19 10/05/19 History albuterol sulfate 2.5 mg INHALATION Q4 PRN 10/04/19 10/05/19 History sod phos di, mono-K phos mono 1 tab PO DAILY 10/04/19 10/05/19 History [Virt-Phos 250 Neutral] magnesium chloride 64 mg PO PM 10/05/19 10/05/19 History Past Med/Surg History Medical History (Updated 10/05/19 @ 12:52 by Amanda Parks PA-C) Abdominal wall cellulitis (Inactive) Acute hepatic encephalopathy (Inactive) Atrial fibrillation by electrocardiogram (Acute) DX: 2013 TAKES XARELTO AND FOLLOW WITH MEDICAL DOCTOR Bowel obstruction (Resolved) Cauda equina compression (Inactive) Cellulitis and abscess of trunk (Resolved Unknown) Chronic low back pain (Acute) 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) RIGHT AND LEFT LEG AND THEN MOVED LUNG - 2001 Diabetes Diabetic neuropathy (Chronic 01/04/11) Fracture of fourth metatarsal bone of left foot (Resolved) Gastritis (Acute) Hyperammonemia Hypokalemia (Resolved) Hypomagnesemia (Inactive) Incarcerated ventral hernia (Resolved) Kidney stone HX OF AND HAD LITHOTRIPSY RIMA (obstructive sleep apnea) HX OF AND NO CURRENT PROBLEM Pyelonephritis (Inactive) Rectal bleeding Septic shock Severe sepsis (Inactive) Splenomegaly, not elsewhere classified (Inactive) Supratherapeutic INR (Inactive) UTI (urinary tract infection) (Inactive) Surgical History (Updated 10/05/19 @ 11:06 by Amanda Parks PA-C) History of appendectomy History of arthroplasty of right knee Hx of lithotripsy Hx of ventral hernia repair S/P cholecystectomy S/P sinus surgery S/P MARLEE (total abdominal hysterectomy) Family History (Updated 10/05/19 @ 11:07 by Amanda Parks PA-C) Father Cancer Liver Brother Kidney disease Renal failure Cirrhosis Brother Cirrhosis Other Family history non-contributory Social History (Updated 10/05/19 @ 11:07 by Amanda Parks PA-C) Preferred Language: [place] Communication Ability: Effective Field Service Coordinator Required: No Beliefs That Will Affect Care: None Current Living Situation: Other Current Living Situation Comment: friend/caregiver herbert vaughan current occupational status: disabled Other Information That Helps Us Care for You: No Feels Safe at Home: Yes Smoking Status: Current every day smoker Tobacco Type: cigarettes ; Cigarettes Per Day: 1/2 PPD ; Do You Dip or Chew Tobacco: No ; Second Hand Exposure: Yes ; Tobacco Cessation Education Requested by Patient: No Hx Alcohol Use: No Hx Substance Use: No Review of Systems Review of Systems: Unobtainable due to cognitive status Physical Exam Physical Exam: See Dr. Buenrostro's addendum for Physical Exam. Results & Data Results & Data ([facility]) Vital Signs (Past 12 Hours) Vital Signs Pulse Pulse Resp BP BP Pulse Ox 10/05/19 11:31 66 12 108/51 L 98 10/05/19 11:00 69 14 121/60 99 10/05/19 10:48 70 70 16 98 10/05/19 10:31 74 13 123/70 98 10/05/19 10:14 76 18 129/86 91 10/05/19 09:30 74 15 121/72 97 10/05/19 09:13 75 14 111/83 96 10/05/19 09:01 73 15 141/89 H 97 10/05/19 08:48 74 14 121/74 98 10/05/19 08:38 78 20 107/73 91 Laboratory Results Laboratory Results - last 24 hr 10/05/19 10/05/19 10/05/19 09:06 09:06 09:06 WBC 11.99 H RBC 4.07 L Hgb 13.5 Hct 40.6 MCV 99.8 MCH 33.2 MCHC 33.3 RDW Std Deviation 66.2 H RDW Coeff of Mari 17.9 H Plt Count 171 MPV 9.3 Immature Gran % (Auto) 0.4 Neut % (Auto) 67.9 Lymph % (Auto) 20.4 Douglas % (Auto) 8.2 Eos % (Auto) 2.8 Baso % (Auto) 0.3 Immature Gran # (Auto) 0.05 H Neut # (Auto) 8.14 H Lymph # (Auto) 2.45 Douglas # (Auto) 0.98 H Eos # (Auto) 0.33 Baso # (Auto) 0.04 PT 13.8 H INR 1.3 H ABG pH ABG pCO2 ABG pO2 ABG HCO3 ABG O2 Saturation ABG Base Excess Kermit Test VBG pH VBG pCO2 VBG pO2 VBG HCO3 VBG O2 Saturation VBG Base Excess Barometric Pressure Oxygen Given Sodium 136 Potassium 3.5 Chloride 102 Carbon Dioxide 28 Anion Gap 6.0 BUN 17 Creatinine 1.59 H Est Cr Clr Drug Dosing Not Reportable Est GFR ( Amer) 41.9 Est GFR (Non-Af Amer) 36.2 BUN/Creatinine Ratio 10.4 Glucose 179 H Lactate Calcium 8.9 Magnesium 1.8 Total Bilirubin 1.2 H AST 38 H ALT 36 Alkaline Phosphatase 199 H Ammonia Troponin I < 0.015 Total Protein 7.4 Albumin 2.8 L Globulin 4.6 H Albumin/Globulin Ratio 0.6 L Procalcitonin TSH 4.520 H 10/05/19 10/05/19 10/05/19 09:06 09:06 09:06 WBC RBC Hgb Hct MCV MCH MCHC RDW Std Deviation RDW Coeff of Mari Plt Count MPV Immature Gran % (Auto) Neut % (Auto) Lymph % (Auto) Douglas % (Auto) Eos % (Auto) Baso % (Auto) Immature Gran # (Auto) Neut # (Auto) Lymph # (Auto) Douglas # (Auto) Eos # (Auto) Baso # (Auto) PT INR ABG pH ABG pCO2 ABG pO2 ABG HCO3 ABG O2 Saturation ABG Base Excess Kermit Test VBG pH 7.29 L VBG pCO2 62 H VBG pO2 39 VBG HCO3 29 VBG O2 Saturation 64.5 VBG Base Excess 1.3 Barometric Pressure 735.8 Oxygen Given Sodium Potassium Chloride Carbon Dioxide Anion Gap BUN Creatinine Est Cr Clr Drug Dosing Est GFR ( Amer) Est GFR (Non-Af Amer) BUN/Creatinine Ratio Glucose Lactate 1.8 Calcium Magnesium Total Bilirubin AST ALT Alkaline Phosphatase Ammonia 37.8 H Troponin I Total Protein Albumin Globulin Albumin/Globulin Ratio Procalcitonin TSH 10/05/19 10/05/19 09:06 11:50 WBC RBC Hgb Hct MCV MCH MCHC RDW Std Deviation RDW Coeff of Mari Plt Count MPV Immature Gran % (Auto) Neut % (Auto) Lymph % (Auto) Douglas % (Auto) Eos % (Auto) Baso % (Auto) Immature Gran # (Auto) Neut # (Auto) Lymph # (Auto) Douglas # (Auto) Eos # (Auto) Baso # (Auto) PT INR ABG pH 7.32 L ABG pCO2 54 H ABG pO2 87 ABG HCO3 27 H ABG O2 Saturation 96.3 H ABG Base Excess 0.5 Kermit Test Pos VBG pH VBG pCO2 VBG pO2 VBG HCO3 VBG O2 Saturation VBG Base Excess Barometric Pressure 735.6 Oxygen Given 30% Sodium Potassium Chloride Carbon Dioxide Anion Gap BUN Creatinine Est Cr Clr Drug Dosing Est GFR ( Amer) Est GFR (Non-Af Amer) BUN/Creatinine Ratio Glucose Lactate Calcium Magnesium Total Bilirubin AST ALT Alkaline Phosphatase Ammonia Troponin I Total Protein Albumin Globulin Albumin/Globulin Ratio Procalcitonin 0.35 TSH Diagnostic Findings Head CT: IMPRESSION: No acute intracranial findings CXR: IMPRESSION: No acute cardiopulmonary findings. No change in appearance of the chest. Code Status & VTE Plan VTE Prophylaxis Plan VTE Prophylaxis will be ordered: No Supervising Physician Co-Signing Physician Notes History and physical exam obtained by me. History is significant for 53 year old woman with obstructive sleep apnea, nonc ompliant with BiPAP, type 2 diabetes, hypothyroidism, diabetic polyneuropathy, cirrhosis, history of paroxysmal atrial fibrillation on Xarelto, history of PE in the past, hyperlipidemia, hypothyroidism, COPD, hypertension, morbid obesity, GERD, history of tobacco dependence, migraines, history of bipolar I depression, hx of deep venous thrombosis who presented with confusion. Patient was drowsy but arousable during evaluation. Limited history from patient. Other history from ER provider. Patient reported she has Detailed history as documented by Amanda Parks PA-C Physical exam General: Obese woman, drowsy but arousable on BIPAP, no obvious distress Eyes: PERRL, conjunctivae normal, not pale, EOM intact bilaterally ENMT: External ear and nose normal, oropharynx normal Respiratory: On BIPAP, no respiratory distress, lungs clear to auscultation, no crackles and no wheezes Cardiovascular: Pulse is RRR.S1-2, +pedal edema Gastrointestinal (Abdomen): Obese, Abdomen is not distended, soft, non-tender to palpation, no guarding, no palpable hepatosplenomegaly, normal bowel sounds Genitourinary: No suprapubic tenderness Skin: No rash noted on gross inspection, No ulcers noted Neurologic: Drowsy but arousable, moves extremities, limited exam due to mental status, No focal deficits noted, oriented to person, place, month and year only Labs remarkable for VBG pH of 7.29, PCO2 of 62, ammonia level of 37.8, UA with 5-10 WBC, AlP 199, AST 38, Fady 1.2 CT head is unremarkable for any acute abnormalities -Altered mental status/Confusion -Acute hypercapneic respiratory failure -RIMA, noncompliant with BIPAP -HAZEL Altered mental status likely due to hypercapneic resp failure Other possibilities include possible UTI EKG does not show ischemic changes and trop is negative Currently on BIPAP. Check ABG Monitor mental status Hold any sedating meds or opioids NPO for now while on BIPAP with accucheck q6 If still NPO by night, will need to reduce insulin dose Hold lasix for today and monitor cr Empiric ceft for now until urine culture results Other plans as detailed in Leatha Parks PA-C's note (1) Leukocytosis Leukocytosis type: unspecified Qualified Code(s): D72.829 - Elevated white blood cell count, unspecified
[2019-10-05] MEDS ORDERED: GLUCOSE 10 TABS/TUBE PO PRN (14:05)
[2019-10-05] MEDS ORDERED: GLUCAGON FOR INJ 1 MG VIAL SQ PRN (14:05)
[2019-10-05] MEDS ORDERED: DEXTROSE 50% 50 ML SYRINGE IV PRN (14:05)
[2019-10-05] MEDS ORDERED: ALBUTEROL 0.083% NEBU SOLN 3 ML VIAL INH PRN (14:05)
[2019-10-05] MEDS ORDERED: ACETAMINOPHEN 325 MG TAB PO PRN (14:05)
[2019-10-05] MEDS ORDERED: GLUCOSE 40% GEL 15 GM TUBE PO PRN (14:05)
[2019-10-05] MEDS ORDERED: CARBOHYDRATES FOR HYPOGLYCEMIA PO PRN (14:05)
[2019-10-05] MEDS ORDERED: PHARMACY GLYCEMIC MGMT CONSULT PRN (14:10)
[2019-10-05] MEDS ORDERED: INSULIN GLARGINE 100 UNIT/ML VIAL SC ONE (14:45)
--- NOTE | 2019-10-05 14:55 | Pharmacy Report ---
Pharmacy Glycemic Short Note 2 - Date of Service October 05, 2019 - Glycemic Short BSG Results (Last 24 hours): 10/05/19 09:06 Glucose 179 H OUTPATIENT ANTIDIABETIC REGIMEN: * Basaglar 120 units SQ BID * Novolog 15 units TID with meals + SS (up to 90 units/day) * Trulicity 1.5 mg SQ weekly * A1c 10.2% (07/15/19) ASSESSMENT: * Desi is a 53 yo T2DM known to the glycemic service * During June 2019 admission, she required 95 units of basal insulin. This was a significant reduction compared to her home dose. * I have ordered a dose of Lantus 60 units for now since patient missed AM dose. I will order a Lantus scale for bedtime. Reduced doses selected based on above info and NPO status. * Novolog parameters will be based on previous admission data. PLAN FOR INPATIENT GLYCEMIC CONTROL: * Basal insulin * Lantus 60 units SQ now, then 40-50 units SQ tonight (50 if BSG is 200 mg/dL or more) * Further basal orders to be determined on 10/05 * Bolus insulin * NovoLog per scale ACHS or Q6hrs while NPO * Goal Range: Low 120 mg/dL - High 150 mg/dL * Correction Factor: 12 mg/dL/unit * Nutritional / Prandial insulin per carb ratio of 1 unit per 4 grams CHO consumed PLAN FOR DISCHARGE: * tbd
[2019-10-05 15:13] LABS: Appearance Urine Clear (Clear); Bacteria Urine Automated Negative (Negative); Bilirubin Urine Negative (Negative); Blood Urine 1+ (Negative); Color Urine Yellow; Epithelial Cell Urine Auto 20-30 /lpf (0-5); Glucose Urine UA Negative (Negative); Ketones Urine Negative (Negative); Leukocyte Esterase Urine Negative (Negative); Nitrite Urine Negative (Negative); Protein Urine Negative (Negative); Specific Gravity Urine 1.017 (1.000-1.030); Urobilinogen Urine Negative (Negative)
[2019-10-05 15:37] LABS: Amphetamines+Metham, Urine Neg (Neg); Barbiturates, Urine Neg (Neg); Benzodiazepine, Urine Neg (Neg); Cocaine, Urine Neg (Neg); MDMA (Ecstacy), Urine Pos (Neg); Methadone, Urine Neg (Neg); Opiate, Urine Pos (Neg); Phencyclidine, Urine Neg (Neg)
[2019-10-05] MEDS: LACTULOSE SYRUP 20 GM/30 ML UDC PO SCH ×2 (17:05→20:07)
[2019-10-05] MEDS: RIVAROXABAN 20 MG TAB PO SCH (17:06)
[2019-10-05 17:08] LABS: Base Excess ABG 2.8 mEq/L (-9-1.8); HCO3 ABG 29 mmol/L (19-24); Oxygen Saturation ABG 85.7 % (90-95); PCO2 ABG 49 mmHg (35-46); PO2 ABG 55 mmHg (80-95); pH ABG 7.39 (7.35-7.45)
[2019-10-05 17:09] LABS: Allen Test POS (Pos)
[2019-10-05] MEDS: POTASSIUM CHLORIDE 10 MEQ TABCR PO SCH (17:17)
[2019-10-05] MEDS: INSULIN ASPART 100 UNITS/ML 3 ML PEN SC SCH (17:17)
[2019-10-05] MEDS: carvediloL 12.5 MG TAB PO SCH (20:07)
[2019-10-05] MEDS: DULOXETINE HCL 60 MG CAP PO SCH (20:07)
[2019-10-05] MEDS ORDERED: INSULIN GLARGINE SOLOSTAR 100 UNITS/ML 3 ML PEN SC SCH (21:00)
[2019-10-05] MEDS ORDERED: INSULIN GLARGINE 100 UNIT/ML VIAL SC SCH (21:00)
[2019-10-05] MEDS: MAGNESIUM CHLORIDE 64MG DELAYED REL TAB PO SCH (21:05)
[2019-10-05] MEDS: FAMOTIDINE 20 MG TAB PO SCH (21:05)
[2019-10-05] MEDS: SPIRONOLACTONE 25 MG TAB PO SCH (21:12)
[2019-10-06] MEDS ORDERED: Nursing to Pharmacy Communication SCH (02:00)
[2019-10-06] MEDS: INSULIN ASPART 100 UNITS/ML 3 ML PEN SC SCH ×5 (02:28→21:15)
[2019-10-06] MEDS: PANTOprazole 40 MG TAB PO SCH (06:00)
[2019-10-06] MEDS: LEVOTHYROXINE SODIUM 150 MCG TABLET PO SCH (06:00)
--- NOTE | 2019-10-06 06:14 | Electrocardiogram Report ---
Test Reason : Blood Pressure : / mmHG Vent. Rate : 078 BPM Atrial Rate : 078 BPM P-R Int : 230 ms QRS Dur : 080 ms QT Int : 412 ms P-R-T Axes : 001 063 045 degrees QTc Int : 469 ms Sinus rhythm with 1st degree A-V block Low voltage QRS When compared with ECG of 04-OCT-2019 21:16, No significant change Confirmed by Christiano Hay ([id number]) on 10/06/2019 6:14:26 AM Referred By: REFERRED SELF Confirmed By:Christiano Hay
[2019-10-06 07:23] LABS: Hematocrit (blood only) 40.2 % (37-47); Hemoglobin 12.6 g/dL (12.0-16.0); Mean Corpuscular Hgb Conc 31.3 g/dL (32-36); Mean Platelet Volume 9.4 fL (7.4-10.4); Platelet Count 160 K/uL (130-400); RDW Standard Deviation 67.2 fL (36.4-46.3); Red Blood Count 3.94 M/uL (4.2-5.4)
[2019-10-06 07:50] LABS: BUN Creatinine Ratio 12.1 (10-20); Calcium 8.6 mg/dl (8.5-10.1); Creatinine Clr Calc Pharmacy 83.1 ml/min; Est GFR (African American) 61.4; Potassium 3.4 mmol/L (3.5-5.1)
[2019-10-06 07:51] LABS: Estimated Average Glucose 192 mg/dl; Hemoglobin A1C 8.3 % (4.5-5.6)
[2019-10-06] MEDS: DULOXETINE HCL 60 MG CAP PO SCH ×2 (08:12→21:09)
[2019-10-06] MEDS: POTASSIUM CHLORIDE 10 MEQ TABCR PO SCH ×2 (08:12→17:20)
[2019-10-06] MEDS: LACTULOSE SYRUP 20 GM/30 ML UDC PO SCH ×4 (08:12→21:08)
[2019-10-06] MEDS: FUROSEMIDE 20 MG TAB PO SCH (08:13)
[2019-10-06] MEDS: FERROUS SULFATE 325 MG TAB PO SCH (08:13)
[2019-10-06] MEDS: FAMOTIDINE 20 MG TAB PO SCH ×2 (08:13→21:09)
[2019-10-06] MEDS: carvediloL 12.5 MG TAB PO SCH ×2 (08:13→21:09)
[2019-10-06] MEDS: POT PHOSPHATE MONOBASIC W/ SOD TAB PO SCH (08:14)
[2019-10-06] MEDS ORDERED: cefTRIAXone SODIUM 1,000 MG in DEXTROSE 5% 50 ML IV SCH (09:00)
--- NOTE | 2019-10-06 10:06 | Pharmacy Report ---
Pharmacy Glycemic Short Note 2 - Date of Service October 06, 2019 - Glycemic Short BSG Results (Last 24 hours): 10/05/19 10/05/19 10/05/19 14:49 17:46 20:12 Glucose POC Glucose 157 H 152 H 148 H 10/06/19 10/06/19 10/06/19 06:50 07:22 07:23 Glucose 61 L POC Glucose 67 L* 62 L* OUTPATIENT ANTIDIABETIC REGIMEN: * Basaglar 120 units SQ BID * Novolog 15 units TID with meals + SS (up to 90 units/day) * Trulicity 1.5 mg SQ weekly * A1c 10.2% (07/15/19) ASSESSMENT: * Desi is a 53 yo T2DM known to the glycemic service * During June 2019 admission, she required 95 units of basal insulin. This was a significant reduction compared to her home dose. * I have ordered a dose of Lantus 60 units for now since patient missed AM dose. I will order a Lantus scale for bedtime. Reduced doses selected based on above info and NPO status. * Novolog parameters will be based on previous admission data. 10/05: * Patient received 100 units of basal insulin yesterday, this is a reduction of home dose of 120 units BID * Fasting BSG this morning lower at 62 mg/dL - patient po intake yesterday poor * Will assess po intake this morning - will restart basal insulin at lunch time to ensure BSGs trending upward. Likely will scale back on dosing * PO intake seems to be adequate today, start basal at lunch PLAN FOR INPATIENT GLYCEMIC CONTROL: * Basal insulin * Lantus 35-45 bid based upon scale * Bolus insulin * NovoLog per scale ACHS or Q6hrs while NPO * Goal Range: Low 120 mg/dL - High 150 mg/dL * Correction Factor: 12 mg/dL/unit * Nutritional / Prandial insulin per carb ratio of 1 unit per 4 grams CHO consumed PLAN FOR DISCHARGE: * tbd
[2019-10-06] MEDS: cefTRIAXone SODIUM 2,000 MG in DEXTROSE 5% 50 ML IV SCH (10:26)
[2019-10-06] MEDS ORDERED: INSULIN GLARGINE 100 UNIT/ML VIAL SC ONE (12:15)
[2019-10-06] MEDS: OXYCODONE HCL IR 5 MG TAB (IMMEDIATE RELEASE) PO PRN ×2 (12:37→18:31)
--- NOTE | 2019-10-06 14:52 | Hospitalist Progress Note ---
Date of Service October 06, 2019 Assessment & Plan (1) Acute confusion: Likely multifactorial and is contributed by hypoxia, hypercarbia, possible UTI and hypoglycemia Ammonia level was elevated at 63.4 at presentation Could be secondary to use of narcotics-toxic screen is pending Denies any more confusion this morning Will observe (2) Hypercarbia: (3) Morbid obesity: (4) RIMA (obstructive sleep apnea): Patient is a morbidly obese female who presented with altered mental status to the ED. She has RIMA and is chronically noncompliant with her CPAP. She doesn't know when she last used it. Noted to have hypercarbia on VBG. ABG ordered. Continue BiPAP pending improvement in mentation. Then continue PRN or O2 PRN to maintain SaO2 >88%. 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 Ammonia level mildly elevated. Will give OK Lactulose x 1 dose. Then continue typical dose for now. Ammonia level has been normalized (7) HAZEL (acute kidney injury): Will monitor PRP (8) Chronic diastolic CHF (congestive heart failure): (9) Leukocytosis: UA was slightly dirty last night. Urine culture pending. Will check urine tox as well. Patient on Oxycodone as outpatient from a back surgeon in [place]. Prior drug-seeking behavior per records. Start Ceftriaxone pending urine culture. UTI is possible cause of confusion. HAZEL. On chronic Lasix 60 mg daily. Hold today. Hold on fluids for now with hx diastolic CHF. Urine culture grew 3 different types of organisms Leukocytosis has been normalized We will continue intravenous ceftriaxone for 3 days (10) DM2 (diabetes mellitus, type 2): Poorly controlled DM with high insulin needs as an outpatient. Check Q6h BSG today. Consult pharmacy for glycemic control. (11) Hypothyroid: TSH slightly elevated. Continue current dose. (12) History of blood clots: (13) DVT prophylaxis: Continue Xarelto Chronic back pain We will continue home dose of narcotic medication Admission and Anticipated Discharge Date Admission Date: October 05, 2019 Subjective The patient was seen and examined in telemetry unit She was admitted with acute confusion likely secondary to UTI and/or hypercarbia with hypoxia Has been feeling a lot better this morning Confusion is resolved Complains to have chronic and worsening back pain Review of Systems Review of Systems: All systems reviewed and are unremarkable except as noted below Respiratory: no cough and no dyspnea Cardiovascular: no chest pain Gastrointestinal: no abdominal pain Neurologic: no confusion Physical Exam Physical Exam: Lying in bed comfortably Constitutional: well developed, well nourished and + morbidly obese; no acute distress and not ill appearing Eyes: PERRL, conjunctivae normal, anicteric sclerae ENMT: external ear and nose normal, oropharynx normal Neck: trachea midline, no thyromegaly Respiratory: normal respiratory effort; no respiratory distress Auscultation: + diminished lung sounds (Due to thick chest wall); no crackles and no wheezes Cardiovascular: Rate/Rhythm: regular rate and regular rhythm Heart Sounds: no murmur Gastrointestinal (Abdomen): Inspection/Auscultation: + abdomen distended and normal bowel sounds Percussion/Palpation: abdomen soft; abdomen nontender Musculoskeletal: Complains of back pain but does not have any acute arthritis involving any of the joints Neurologic: moves all extremities; no focal motor deficits Alert, awake and oriented x3 Results & Data Results & Data ([facility]) Vital Signs (Past 12 Hours) Vital Signs Temp Pulse Resp BP BP Pulse Ox 10/06/19 12:41 36.3 C L 78 20 134/81 94 10/06/19 07:47 36.4 C L 63 20 102/60 91 10/06/19 04:36 36.5 C 83 20 98/63 L 99 Laboratory Results Short CBC 10/06/19 Range/Units 06:50 WBC 9.60 (4.8-10.8) K/uL Hgb 12.6 (12.0-16.0) g/dL Hct 40.2 (37-47) % Plt Count 160 (130-400) K/uL BMP 10/06/19 06:50 Sodium 141 Potassium 3.4 L Chloride 106 Carbon Dioxide 31 BUN 14 Creatinine 1.16 D Glucose 61 L Calcium 8.6 Urine 10/05/19 Range/Units 14:47 Urine Color Yellow Urine Appearance Clear (Clear) Urine pH 6.0 (4.5-7.5) Ur Specific [place] 1.017 (1.000-1.030) Urine Protein Negative (Negative) Urine Glucose (UA) Negative (Negative) Medications Administered Current Inpatient Medications Albuterol (Ventolin 0.083% 2.5mg/3ml) 2.5 mg INH Q4H PRN PRN Reason: Shortness Of Breath Stop: 11/04/19 14:04 Carvedilol (Coreg) 12.5 mg PO BID [facility] Stop: 11/04/19 20:59 Last Admin: 10/06/19 08:13 Dose: 12.5 mg Documented by: Dextrose (Dextrose 50%) 25 - 50 ml IV UD PRN; Protocol PRN Reason: Hypoglycemia Protocol Stop: 11/04/19 14:04 Duloxetine HCl (Cymbalta) 60 mg PO BID [facility] Stop: 11/04/19 20:59 Last Admin: 10/06/19 08:12 Dose: 60 mg Documented by: Famotidine (Pepcid) 20 mg PO BID [facility] Stop: 11/04/19 20:59 Last Admin: 10/06/19 08:13 Dose: 20 mg Documented by: Ferrous Sulfate (Feosol) 325 mg PO QAM [facility] Stop: 11/05/19 08:59 Last Admin: 10/06/19 08:13 Dose: 325 mg Documented by: Furosemide (Lasix) 60 mg PO QAM [facility] Stop: 11/05/19 08:59 Last Admin: 10/06/19 08:13 Dose: 60 mg Documented by: Glucagon (Glucagen) 1 mg SQ UD PRN; Protocol PRN Reason: Hypoglycemia Protocol Stop: 11/04/19 14:04 Glucose (Dex4 Glucose) 4 - 8 tabs PO UD PRN; Protocol PRN Reason: Hypoglycemia Protocol Stop: 11/04/19 14:04 Glucose (Glucose 40%) 15 - 30 gm PO UD PRN; Protocol PRN Reason: Hypoglycemia Protocol Stop: 11/04/19 14:04 Ceftriaxone Sodium 2,000 mg/ (Dextrose) 70 mls @ 100 mls/hr IV Q24H [facility]; Protocol Stop: 10/11/19 08:59 Last Infusion: 10/06/19 11:15 Dose: Infused Documented by: Insulin Aspart (Novolog Flexpen) 0 units SC ACHS [facility] Stop: 11/05/19 07:29 Last Admin: 10/06/19 12:10 Dose: 10 units Documented by: Insulin Glargine (Lantus) 0 units SC BID [facility]; Protocol Stop: 11/05/19 20:59 Lactulose (Chronulac) 20 gm PO QID [facility] Stop: 11/04/19 16:59 Last Admin: 10/06/19 12:36 Dose: 20 gm Documented by: Levothyroxine Sodium (Synthroid) 150 mcg PO DAILYBB [facility] Stop: 11/05/19 06:29 Last Admin: 10/06/19 06:00 Dose: 150 mcg Documented by: Magnesium Chloride (Slow-Mag) 64 mg PO PM [facility] Stop: 11/04/19 20:59 Last Admin: 10/05/19 21:05 Dose: 64 mg Documented by: Miscellaneous (Carbohydrates For Hypoglycemia) 15 - 30 gm PO UD PRN PRN Reason: Hypoglycemia Protocol Stop: 11/04/19 14:04 Miscellaneous Information (Consult Glycemic Management Pharmacy) 1 ea N/A UD PRN; Protocol PRN Reason: Consult Stop: 11/04/19 14:09 Oxycodone HCl (Roxicodone Immediate Rel) 10 mg PO QID PRN PRN Reason: Pain Stop: 10/20/19 12:09 Last Admin: 10/06/19 12:37 Dose: 10 mg Documented by: Pantoprazole Sodium (Protonix) 40 mg PO DAILYBB [facility] Stop: 11/05/19 06:29 Last Admin: 10/06/19 06:00 Dose: 40 mg Documented by: Potassium Chloride (Klor-Con M10) 10 meq PO BIDM [facility] Stop: 11/04/19 16:59 Last Admin: 10/06/19 08:12 Dose: 10 meq Documented by: Potassium Phosphate (Phospha 250 Neutral 155-852-130 Mg) 1 tab PO DAILY [facility] Stop: 11/05/19 08:59 Last Admin: 10/06/19 08:14 Dose: 1 tab Documented by: Rivaroxaban (Xarelto) 20 mg PO DAILY@1630 [facility] Stop: 11/04/19 16:29 Last Admin: 10/05/19 17:06 Dose: 20 mg Documented by: Spironolactone (Aldactone) 25 mg PO HS [facility] Stop: 11/04/19 20:59 Last Admin: 10/05/19 21:12 Dose: 25 mg Documented by: (1) Leukocytosis Leukocytosis type: unspecified Qualified Code(s): D72.829 - Elevated white blood cell count, unspecified
[2019-10-06] MEDS: RIVAROXABAN 20 MG TAB PO SCH (17:20)
[2019-10-06] MEDS: SPIRONOLACTONE 25 MG TAB PO SCH (21:08)
[2019-10-06] MEDS: MAGNESIUM CHLORIDE 64MG DELAYED REL TAB PO SCH (21:09)
[2019-10-06] MEDS: INSULIN GLARGINE 100 UNIT/ML VIAL SC SCH (21:15)
[2019-10-07] MEDS: OXYCODONE HCL IR 5 MG TAB (IMMEDIATE RELEASE) PO PRN ×3 (00:16→12:38)
[2019-10-07] MEDS: LEVOTHYROXINE SODIUM 150 MCG TABLET PO SCH (04:33)
[2019-10-07] MEDS: PANTOprazole 40 MG TAB PO SCH (04:33)
[2019-10-07] MEDS: DULOXETINE HCL 60 MG CAP PO SCH (09:22)
[2019-10-07] MEDS: FAMOTIDINE 20 MG TAB PO SCH (09:22)
[2019-10-07] MEDS: carvediloL 12.5 MG TAB PO SCH (09:22)
[2019-10-07] MEDS: INSULIN ASPART 100 UNITS/ML 3 ML PEN SC SCH ×2 (09:22→12:38)
[2019-10-07] MEDS: POTASSIUM CHLORIDE 10 MEQ TABCR PO SCH (09:23)
[2019-10-07] MEDS: POT PHOSPHATE MONOBASIC W/ SOD TAB PO SCH (09:23)
[2019-10-07] MEDS: LACTULOSE SYRUP 20 GM/30 ML UDC PO SCH ×2 (09:23→12:37)
[2019-10-07] MEDS: FUROSEMIDE 20 MG TAB PO SCH (09:23)
[2019-10-07] MEDS: FERROUS SULFATE 325 MG TAB PO SCH (09:23)
[2019-10-07] MEDS: INSULIN GLARGINE 100 UNIT/ML VIAL SC SCH (09:24)
[2019-10-07] MEDS: cefTRIAXone SODIUM 2,000 MG in DEXTROSE 5% 50 ML IV SCH (09:44)
--- NOTE | 2019-10-07 09:50 | Pharmacy Report ---
Pharmacy Glycemic Short Note 2 - Date of Service October 07, 2019 - Glycemic Short BSG Results (Last 24 hours): 10/06/19 10/06/19 10/06/19 11:32 16:48 20:16 POC Glucose 130 H 153 H 228 H 10/07/19 10/07/19 02:34 07:29 POC Glucose 130 H 114 H OUTPATIENT ANTIDIABETIC REGIMEN: * Basaglar 120 units SQ BID * Novolog 15 units TID with meals + SS (up to 90 units/day) * Trulicity 1.5 mg SQ weekly * A1c 10.2% (07/15/19) ASSESSMENT: 10/06: * Patient received total of 114 units of insulin yesterday, of which 80 were basal insulin * Fasting BSG 114 mg/dL - continue same for today * Lunch time BSG trending up - however AM insulin given later / may consider adjusting CR tomorrow 10/05: * Patient received 100 units of basal insulin yesterday, this is a reduction of home dose of 120 units BID * Fasting BSG this morning lower at 62 mg/dL - patient po intake yesterday poor * Will assess po intake this morning - will restart basal insulin at lunch time to ensure BSGs trending upward. Likely will scale back on dosing * PO intake seems to be adequate today, start basal at lunch PLAN FOR INPATIENT GLYCEMIC CONTROL: * Basal insulin * Lantus 35-45 bid based upon scale * Bolus insulin * NovoLog per scale ACHS or Q6hrs while NPO * Goal Range: Low 120 mg/dL - High 150 mg/dL * Correction Factor: 12 mg/dL/unit * Nutritional / Prandial insulin per carb ratio of 1 unit per 4 grams CHO consumed PLAN FOR DISCHARGE: * tbd
--- NOTE | 2019-10-07 10:33 | Hospitalist Progress Note ---
Date of Service October 07, 2019 Assessment & Plan (1) Acute confusion: Likely multifactorial and is contributed by hypoxia, hypercarbia, possible UTI and hypoglycemia Ammonia level was elevated at 63.4 at presentation Could be secondary to use of narcotics-toxic screen is pending Denies any more confusion this morning No more acute confusion (2) Hypercarbia: (3) Morbid obesity: (4) RIMA (obstructive sleep apnea): Patient is a morbidly obese female who presented with altered mental status to the ED. She has RIMA and is chronically noncompliant with her CPAP. She doesn't know when she last used it. Noted to have hypercarbia on VBG. ABG ordered. Continue BiPAP pending improvement in mentation. Then continue PRN or O2 PRN to maintain SaO2 >88%. 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 Ammonia level mildly elevated. Will give DC Lactulose x 1 dose. Then continue typical dose for now. Ammonia level has been normalized Was advised to continue with laxatives to have about 2 bowel movements daily (7) HAZEL (acute kidney injury): Will monitor PRP-we will check it today again (8) Chronic diastolic CHF (congestive heart failure): (9) Leukocytosis: UA was slightly dirty last night. Urine culture pending. Will check urine tox as well. Patient on Oxycodone as outpatient from a back surgeon in [place]. Prior drug-seeking behavior per records. Start Ceftriaxone pending urine culture. UTI is possible cause of confusion. HAZEL. On chronic Lasix 60 mg daily. Hold today. Hold on fluids for now with hx diastolic CHF. Urine culture grew 3 different types of organisms Leukocytosis has been normalized We will continue intravenous ceftriaxone for 3 days (10) DM2 (diabetes mellitus, type 2): Poorly controlled DM with high insulin needs as an outpatient. Check Q6h BSG today. Consult pharmacy for glycemic control. (11) Hypothyroid: TSH slightly elevated. Continue current dose. (12) History of blood clots: (13) DVT prophylaxis: Continue Xarelto Chronic back pain We will continue home dose of narcotic medication She wants to go home today Has been ambulating in the room without any difficulties She is back to her baseline We will get to a step O2 saturation before discharging her this afternoon Admission and Anticipated Discharge Date Admission Date: October 05, 2019 Subjective The patient was seen and examined in telemetry unit She was admitted with acute confusion likely secondary to UTI and/or hypercarbia with hypoxia Has been feeling a lot better this morning Confusion is resolved Complains to have chronic and worsening back pain 10/07/2019 The patient was seen and examined in telemetry unit She has been feeling lot better and has been ambulating inside the room without any problem Denies any fever, shortness of breath on exertion or any more pain She wants to go home Review of Systems Review of Systems: All systems reviewed and are unremarkable except as noted below Respiratory: no cough, no dyspnea and no wheezing Genitourinary: no dysuria and no urinary frequency Physical Exam Physical Exam: Ambulating in the room without any distress Constitutional: well developed, well nourished and + morbidly obese; no acute distress and not ill appearing Eyes: PERRL, conjunctivae normal, anicteric sclerae ENMT: external ear and nose normal, oropharynx normal Neck: trachea midline, no thyromegaly Respiratory: normal respiratory effort; no respiratory distress Auscultation: + diminished lung sounds (Due to thick chest wall otherwise completely clear); no crackles and no wheezes Cardiovascular: Rate/Rhythm: regular rate and regular rhythm Heart Sounds: no murmur Gastrointestinal (Abdomen): Inspection/Auscultation: + abdomen distended and normal bowel sounds Percussion/Palpation: abdomen soft; abdomen nontender Musculoskeletal: No acute arthritis involving any joints Neurologic: moves all extremities; no focal motor deficits Lymphatic: no cervical or axillary lymphadenopathy Results & Data Results & Data ([facility]) Vital Signs (Past 12 Hours) Vital Signs Temp Pulse Pulse Resp BP BP Pulse Ox 10/07/19 08:09 36.4 C L 76 18 135/88 96 10/07/19 08:00 74 10/07/19 04:07 36.5 C 60 22 123/77 95 10/06/19 23:02 36.4 C L 70 20 152/95 H 97 Medications Administered Current Inpatient Medications Albuterol (Ventolin 0.083% 2.5mg/3ml) 2.5 mg INH Q4H PRN PRN Reason: Shortness Of Breath Stop: 11/04/19 14:04 Carvedilol (Coreg) 12.5 mg PO BID [facility] Stop: 11/04/19 20:59 Last Admin: 10/07/19 09:22 Dose: 12.5 mg Documented by: Dextrose (Dextrose 50%) 25 - 50 ml IV UD PRN; Protocol PRN Reason: Hypoglycemia Protocol Stop: 11/04/19 14:04 Duloxetine HCl (Cymbalta) 60 mg PO BID [facility] Stop: 11/04/19 20:59 Last Admin: 10/07/19 09:22 Dose: 60 mg Documented by: Famotidine (Pepcid) 20 mg PO BID [facility] Stop: 11/04/19 20:59 Last Admin: 10/07/19 09:22 Dose: 20 mg Documented by: Ferrous Sulfate (Feosol) 325 mg PO QAM [facility] Stop: 11/05/19 08:59 Last Admin: 10/07/19 09:23 Dose: 325 mg Documented by: Furosemide (Lasix) 60 mg PO QAM [facility] Stop: 11/05/19 08:59 Last Admin: 10/07/19 09:23 Dose: 60 mg Documented by: Glucagon (Glucagen) 1 mg SQ UD PRN; Protocol PRN Reason: Hypoglycemia Protocol Stop: 11/04/19 14:04 Glucose (Dex4 Glucose) 4 - 8 tabs PO UD PRN; Protocol PRN Reason: Hypoglycemia Protocol Stop: 11/04/19 14:04 Glucose (Glucose 40%) 15 - 30 gm PO UD PRN; Protocol PRN Reason: Hypoglycemia Protocol Stop: 11/04/19 14:04 Ceftriaxone Sodium 2,000 mg/ (Dextrose) 70 mls @ 100 mls/hr IV Q24H [facility]; Protocol Stop: 10/11/19 08:59 Last Admin: 10/07/19 09:44 Dose: 100 mls/hr Documented by: Insulin Aspart (Novolog Flexpen) 0 units SC ACHS [facility] Stop: 11/05/19 07:29 Last Admin: 10/07/19 09:22 Dose: 16 units Documented by: Insulin Glargine (Lantus) 0 units SC BID [facility]; Protocol Stop: 11/05/19 20:59 Last Admin: 10/07/19 09:24 Dose: 35 units Documented by: Lactulose (Chronulac) 20 gm PO QID [facility] Stop: 11/04/19 16:59 Last Admin: 10/07/19 09:23 Dose: 20 gm Documented by: Levothyroxine Sodium (Synthroid) 150 mcg PO DAILYBB [facility] Stop: 11/05/19 06:29 Last Admin: 10/07/19 04:33 Dose: 150 mcg Documented by: Magnesium Chloride (Slow-Mag) 64 mg PO PM [facility] Stop: 11/04/19 20:59 Last Admin: 10/06/19 21:09 Dose: 64 mg Documented by: Miscellaneous (Carbohydrates For Hypoglycemia) 15 - 30 gm PO UD PRN PRN Reason: Hypoglycemia Protocol Stop: 11/04/19 14:04 Miscellaneous Information (Consult Glycemic Management Pharmacy) 1 ea N/A UD PRN; Protocol PRN Reason: Consult Stop: 11/04/19 14:09 Oxycodone HCl (Roxicodone Immediate Rel) 10 mg PO QID PRN PRN Reason: Pain Stop: 10/20/19 12:09 Last Admin: 10/07/19 06:29 Dose: 10 mg Documented by: Pantoprazole Sodium (Protonix) 40 mg PO DAILYBB [facility] Stop: 11/05/19 06:29 Last Admin: 10/07/19 04:33 Dose: 40 mg Documented by: Potassium Chloride (Klor-Con M10) 10 meq PO BIDM [facility] Stop: 11/04/19 16:59 Last Admin: 10/07/19 09:23 Dose: 10 meq Documented by: Potassium Phosphate (Phospha 250 Neutral 155-852-130 Mg) 1 tab PO DAILY [facility] Stop: 11/05/19 08:59 Last Admin: 10/07/19 09:23 Dose: 1 tab Documented by: Rivaroxaban (Xarelto) 20 mg PO DAILY@1630 [facility] Stop: 11/04/19 16:29 Last Admin: 10/06/19 17:20 Dose: 20 mg Documented by: Spironolactone (Aldactone) 25 mg PO HS [facility] Stop: 11/04/19 20:59 Last Admin: 10/06/19 21:08 Dose: 25 mg Documented by: (1) Leukocytosis Leukocytosis type: unspecified Qualified Code(s): D72.829 - Elevated white blood cell count, unspecified
[2019-10-07 11:25] LABS: BUN Creatinine Ratio 9.9 (10-20); Calcium 8.8 mg/dl (8.5-10.1); Creatinine Clr Calc Pharmacy 74.7 ml/min; Est GFR (African American) 53.5; Est GFR (Non-African American) 46.1
[2019-10-07 12:09] LABS: Potassium 4.2 mmol/L (3.5-5.1)
--- NOTE | 2019-10-08 08:20 | Discharge Summary ---
Date of Service October 08, 2019 Admission HPI Per Admitting Provider Patient is a 53 yo morbidly obese female with a complicated past medical history including Type 2 DM with polyneuropathy, hypothyroidism, RIMA noncompliant with CPAP, COPD, HTN, GAMBOA with cirrhosis, GERD, spinal stenosis of the lumbar spine with chronic low back pain, and bipolar I with depression who presented to the ED with altered mental status. The patient is currently unable to answer many questions due to drowsiness. History obtained mostly from the ED doctor. Patient presented overnight to the ED with complaint of increased confusion throughout the day yesterday that was noticed by her caregiver. She was concerned that she may have hyperammonemia again, but her level was in the 60s. She has been taking her lactulose per last night's record. Head CT at that time was negative. She was discharged home. She presented again this morning with further increased confusion and drowsiness. She also noted pain on the left side of her body and a slight headache. Repeat Head CT was negative again today. Urinalysis last night showed mild WBCs and 1+ bacteria. Culture pending. Ammonia level very slightly elevated this AM. She was supposed to be starting Xifaxam as an outpatient but uncertain if she has started this yet or not. She is currently on BiPAP when seen/examined. VBG showed hypercarbia. Mildly elevated WBC count. CXR unremarkable. Admission Exam Per Admitting Provider General: Obese woman, drowsy but arousable on BIPAP, no obvious distress Eyes: PERRL, conjunctivae normal, not pale, EOM intact bilaterally ENMT: External ear and nose normal, oropharynx normal Respiratory: On BIPAP, no respiratory distress, lungs clear to auscultation, no crackles and no wheezes Cardiovascular: Pulse is RRR.S1-2, +pedal edema Gastrointestinal (Abdomen): Obese, Abdomen is not distended, soft, non-tender to palpation, no guarding, no palpable hepatosplenomegaly, normal bowel sounds Genitourinary: No suprapubic tenderness Skin: No rash noted on gross inspection, No ulcers noted Neurologic: Drowsy but arousable, moves extremities, limited exam due to mental status, No focal deficits noted, oriented to person, place, month and year only Principal Diagnosis Change in mental status-resolved, RIMA with hypoxemia, cirrhosis of liver secondary to [place], type 2 diabetes, obesity Discharge Exam Constitutional well developed, well nourished and + morbidly obese; no acute distress and not ill appearing Eyes PERRL, conjunctivae normal, anicteric sclerae ENMT external ear and nose normal, oropharynx normal Neck trachea midline, no thyromegaly Respiratory normal respiratory effort; no respiratory distress Auscultation: + diminished lung sounds (Due to thick chest wall otherwise completely clear); no crackles and no wheezes Cardiovascular Rate/Rhythm: regular rate and regular rhythm Heart Sounds: no murmur Gastrointestinal (Abdomen) Inspection/Auscultation: + abdomen distended and normal bowel sounds Percussion/Palpation: abdomen soft; abdomen nontender Neurologic moves all extremities; no focal motor deficits Lymphatic no cervical or axillary lymphadenopathy Discharge Data Allergies Allergy/AdvReac Type Severity Reaction Status Date / Time Iodinated Contrast Media Allergy Intermediate hives-PT Verified 10/05/19 09:47 DENIES SEE NOTE adhesive Allergy Mild RED RASH Verified 10/05/19 09:47 CAUSED BY PAPER TAPE vancomycin AdvReac Severe renal Verified 10/05/19 09:47 failure, required dialysis x 3 MONTHS acetaminophen AdvReac Intermediate Liver Verified 10/05/19 09:47 problems. alprazolam AdvReac Intermediate MAKES Verified 10/05/19 09:47 LOOPY,DO AND SAY SILLY THINGS codeine AdvReac Intermediate UPSET Verified 10/05/19 09:47 STOMACH haloperidol AdvReac Intermediate nervous Verified 10/05/19 09:47 and anxious metformin AdvReac Intermediate HANDS FEET Verified 10/05/19 09:47 FACE NUMB methylparaben AdvReac Intermediate FLUID Verified 10/05/19 09:47 RETENTION morphine AdvReac Intermediate SWELLING Verified 10/05/19 09:47 LEGS AND FEET oxymorphone AdvReac Intermediate FLUID Verified 10/05/19 09:47 RETENTION pregabalin AdvReac Intermediate Aphasia/Speech Verified 10/05/19 09:47 impairments gabapentin AdvReac Mild Aphasia/Speech Verified 10/05/19 09:47 impairments Sulfa (Sulfonamide AdvReac Mild GI SYMPTOMS Verified 10/05/19 09:47 Antibiotics) Consultations 10/05/19 10:47 ED Decision to Admit Stat 10/05/19 14:05 Consult Case Management - Discharge Planning Routine Ordered Studies 10/05/19 08:50 CT head/brain wo con Stat Hospital Course (1) Acute confusion: Likely multifactorial and is contributed by hypoxia, hypercarbia, possible UTI and hypoglycemia Ammonia level was elevated at 63.4 at presentation Could be secondary to use of narcotics-toxic screen is pending Denies any more confusion this morning No more acute confusion (2) Hypercarbia: (3) Morbid obesity: (4) RIMA (obstructive sleep apnea): Patient is a morbidly obese female who presented with altered mental status to the ED. She has RIMA and is chronically noncompliant with her CPAP. She doesn't know when she last used it. Noted to have hypercarbia on VBG. ABG ordered. Continue BiPAP pending improvement in mentation. Then continue PRN or O2 PRN to maintain SaO2 >88%. Respiratory failure has been improving Does not use any home oxygen but has a CPAP Will get to a step O2 saturation before discharging this afternoon (5) Liver cirrhosis secondary to GAMBOA: (6) Hyperammonemia: Patient with history of hepatic encephalopathy with hyperammonemia. Ammonia level mildly elevated. Will give IL Lactulose x 1 dose. Then continue typical dose for now. Ammonia level has been normalized Was advised to continue with laxatives to have about 2 bowel movements daily (7) HAZEL (acute kidney injury): Will monitor PRP-we will check it today again (8) Chronic diastolic CHF (congestive heart failure): (9) Leukocytosis: UA was slightly dirty last night. Urine culture pending. Will check urine tox as well. Patient on Oxycodone as outpatient from a back surgeon in [place]. Prior drug-seeking behavior per records. Start Ceftriaxone pending urine culture. UTI is possible cause of confusion. HAZEL. On chronic Lasix 60 mg daily. Hold today. Hold on fluids for now with hx diastolic CHF. Urine culture grew 3 different types of organisms Leukocytosis has been normalized We will continue intravenous ceftriaxone for 3 days (10) DM2 (diabetes mellitus, type 2): Poorly controlled DM with high insulin needs as an outpatient. Check Q6h BSG today. Consult pharmacy for glycemic control. (11) Hypothyroid: TSH slightly elevated. Continue current dose. (12) History of blood clots: (13) DVT prophylaxis: Continue Xarelto Chronic back pain We will continue home dose of narcotic medication She wants to go home today Has been ambulating in the room without any difficulties She is back to her baseline We will get to a step O2 saturation before discharging her this afternoon Total Time Total Time Spent Total Time Spent (In Minutes): 35 minutes Total Time Includes: Examination of the Patient, Discharge Planning, Medication Reconciliation and Communication With Other Providers Discharge Plan Discharge Items Patient Disposition: Home - Self-Care Reason For Visit: ALTERED MENTAL STATUS Discharge Diagnosis: Change in mental status-resolved, RIMA with hypoxemia, cirrhosis of liver secondary to [place], type 2 diabetes, obesity Condition on Discharge: Fair Activity: Resume your previous activity Non-emergency contact: Primary Care Provider Call non-emergency contact if: you have any medication questions and your symptoms worsen Follow-up/Referrals: Dewey Mcfadden, [Primary Care Provider] - (Your PCPs office will call with an appointment within 7 days) Diet: Carb Consistent or DM2 Addtl Attending Provider Instructions: Please take precaution to avoid falls Try to use your narcotics pain medications as less as possible Use laxatives regularly to have bowel movements 1-2 times daily Pending Studies at Discharge: No Stand-Alone Forms: My [facility] Grid20/20, Smoking Cessation Medications and DC Order Prescriptions: New (DME) Oxygen Home Liters Per Minute See Rx Instructions .ROUTE .MEDSUPPLY Qty: 1 RF: 0 Continued spironolactone [Aldactone] 25 mg tablet 25 mg PO HS RF: 0 Basaglar KwikPen U-100 Insulin 100 unit/mL (3 mL) insulin pen 120 unit SUBCUT BID RF: 0 baclofen 10 mg tablet 10 mg PO BID RF: 0 pantoprazole 40 mg tablet,delayed release (DR/EC) 40 mg PO QAM RF: 0 ferrous sulfate 325 mg (65 mg iron) tablet 325 mg PO QAM RF: 0 levothyroxine 150 mcg tablet 150 mcg PO QAM RF: 0 albuterol sulfate [Ventolin HFA] 90 mcg/actuation HFA aerosol inhaler 2 puff inhalation Q4H PRN (Reason: Shortness Of Breath) RF: 0 lactulose [Constulose] 10 gram/15 mL solution 30 ml PO QID RF: 0 trazodone 50 mg tablet 50 mg PO HS RF: 0 benzonatate 200 mg capsule 200 mg PO TID PRN (Reason: Cough) RF: 0 albuterol sulfate 2.5 mg /3 mL (0.083 %) solution for nebulization 2.5 mg inhalation Q4 PRN (Reason: Shortness Of Breath) RF: 0 Virt-Phos 250 Neutral 250 mg tablet 1 tab PO DAILY RF: 0 potassium chloride 10 mEq capsule, extended release 10 meq PO BID RF: 0 prochlorperazine maleate [Compazine] 5 mg tablet 5 mg PO TID PRN (Reason: Nausea) RF: 0 insulin aspart U-100 [Novolog Flexpen U-100 Insulin] 100 unit/mL (3 mL) insulin pen 15 unit SUBCUT TIDM RF: 0 duloxetine [Cymbalta] 60 mg capsule,delayed release(DR/EC) 60 mg PO BID RF: 0 Xarelto 20 mg tablet 20 mg PO PM RF: 0 furosemide [Lasix] 20 mg Tablet 60 mg PO QAM RF: 0 carvedilol 12.5 mg Tablet 12.5 mg PO BID RF: 0 nortriptyline [Pamelor] 25 mg Capsule 25 mg PO HS RF: 0 Trulicity 1.5 mg/0.5 mL pen injector 1.5 mg SUBCUT WE RF: 0 Xifaxan 550 mg Tablet 550 mg PO BID Qty: 60 RF: 0 famotidine 20 mg tablet 20 mg PO BID RF: 0 oxycodone 10 mg Tablet 10 mg PO QID PRN (Reason: Pain) RF: 0 magnesium chloride 64 mg tablet,delayed release (DR/EC) 64 mg PO PM RF: 0 Discharge Orders: Discharge Order (Routine); Ordered 10/07/19 Ordered By: Chu Gomes Admission Data Admit Date/Time: 10/05/19 11:26 Attending Provider: Chu Gomes Admit Provider: Nicolasa Buenrostro I. Primary Care Provider: Dewey Mcfadden Other Providers: Nicolasa Buenrostro I. Other Interventions: Discharge Summary Assessment (RN) Last Done: 10/07/19 13:05 DC Date/Time DO NOT enter until pt leaves facility: 10/07/19 13:52
[2019-10-10 09:56] LABS: Codeine Urine NEGATIVE ng/mL (<50); Hydrocodone Urine NEGATIVE ng/mL (<50); Hydromor Urine NEGATIVE ng/mL (<50); MDA negative; MDEA negative; MDMA (Ecstasy) Urine, Confirm negative; Morphine Urine NEGATIVE ng/mL (<50); Norhydrocodone Conf Ur NEGATIVE ng/mL (<50); Noroxycodone Urine 5030 ng/mL (<50); Oxycodone Urine 5640 ng/mL (<50); Oxymorph Urine 861 ng/mL (<50)
== END 2019-10-07 13:52 | disposition home or self-care (01) | DRG 947 ==
LOC: ED 08:30 → SUATTDRO 11:26 → 2S 11:26

== ENCOUNTER 2019-12-28 23:20 | Inpatient (IN) ==
--- NOTE | 2019-12-29 00:02 | Emergency Department Note ---
Impression & Plan Hyperammonemia, AMS (altered mental status) ED Provider Note INFORMANT: Patient ED PROVIDER(S): Jonathan Gupta MD CHIEF COMPLAINT: Altered mental status PLAN: Disposition: Admitted Condition: Good MEDICAL DECISION MAKING: Patient presented with altered mental status. She admits to not taking her lactulose as prescribed because she was traveling. She denied any other complaints. No trauma. Her physical examination did not reveal any acute process other than her altered mental status. This was somewhat intermittent as she would answer questions and follow commands. She had blood work obtained. Her ECG was unremarkable. The patient's CBC and chemistry panel was negative. Her ammonia level however was elevated concerning for hyperammonemia causing her altered mental status. This would fit with her history. She was treated with oral lactulose. Given her confusion and general state of health it was felt she was most appropriately treated in the hospital. Patient was in agreement. Consultation made with the [facility]. Patient was evaluated in ER for further management. Triage Nursing notes reviewed and agree them. Prior medical records reviewed last ammonia level for the patient was 15. Vital Signs: reviewed and remarkable for no significant abnormalities Differential diagnosis: Infection, hypoglycemia, electrolyte abnormalities, overdose, toxicologic, cardiac sources, intracerebral event, neurologic, trauma, as well as other pathologies. Diagnostics interpreted by me: ECG: Twelve-lead ECG reveals sinus rhythm with first-degree AV block at 80 bpm. Low voltage QRS. Septal Q waves present. No ST elevation or depression. No PVCs or PACs. Normal axis. Cardiac Monitoring: Cardiac monitoring ordered by me: The patient was placed on continuous cardiac monitoring and observed. It revealed a normal sinus rhythm at 82 beats per minute without ectopy or evidence of dysrhythmia. Imaging studies: Chest imaging shows a mild cardiomegaly. She had slight increased interstitial markings compared to prior. Currently the patient has no pulmonary complaints. Consultation(s): [facility] HPI: The patient is a 54 year old female who presents to the Emergency Room with complaints of AMS. This started today and is believed to be related to missing several lactulose doses. The patient also notes the following associated symptoms, fatigue, generalized weakness. The patient has restarted her lactulose tonight for relieving factors. Current pain is rated as 0/10. Pt denies trauma. Pt denies LOC, headache, fevers, chills, diaphoresis, visual changes, neck pain, chest pain, breathing difficulties, nausea, vomiting, abdominal pain, back pain, melena, hematochezia, urinary symptoms, numbness, lymphadenopathy, rash, or other complaints. ROS: See above HPI for pertinent positives & negatives. A total of 10 systems reviewed and were otherwise negative. PAST MEDICAL HISTORY:See Below, DM, MEEK PAST SURGICAL HISTORY:See Below FAMILY HISTORY:See Below SOCIAL HISTORY:See Below no tobacco HOME MEDICATIONS:See Below ALLERGIES:See Below VITALS:See Below PHYSICAL EXAMINATION: GENERAL: Awake, alert, tired-appearing, in no distress HENT: Normocephalic, atraumatic. Oropharynx unremarkable. EYES: Normal conjunctiva. Sclera non-icteric. NECK: Inspection normal. Non-tender. Supple. No nuchal rigidity. FROM. No masses. RESPIRATORY: Clear to auscultation. No wheezes. No rales. Normal respiratory effort. CARDIAC: Normal rate. Normal rhythm. No murmurs. No rubs. Extremities warm and well perfused. Pulses equal. No JVD. GI: Soft, non-distended. No tenderness to palpation. No rebound or guarding. No masses. RECTAL: Deferred. MUSCULOSKELETAL: Atraumatic. Chest examination reveals no tenderness. The back is symmetrical on inspection without obvious abnormality. There is no CVA tenderness to palpation. No joint edema. LOWER EXTREMITIES: Calves are equal size bilaterally and non-tender. No edema. No discoloration. NEURO: Tired but relatively normal sensorium. No sensory or motor deficits noted. SKIN: No rash or jaundice noted. ED COURSE: Critical Care: None Jonathan uGpta MD Past Med/Surg History Medical History (Updated 12/29/19 @ 02:03 by Jonathan Gupta MD) Abdominal wall cellulitis Acute hepatic encephalopathy Atrial fibrillation by electrocardiogram DX: 2013 TAKES XARELTO AND FOLLOW WITH MEDICAL DOCTOR Bowel obstruction Cauda equina compression Cellulitis and abscess of trunk (Unknown) Chronic low back pain Deep vein blood clot of left lower extremity RIGHT AND LEFT LEG AND THEN MOVED LUNG - 2001 Diabetes Diabetic neuropathy (01/04/11) Fracture of fourth metatarsal bone of left foot Gastritis Hyperammonemia Hypokalemia Hypomagnesemia Incarcerated ventral hernia Kidney stone HX OF AND HAD LITHOTRIPSY RIMA (obstructive sleep apnea) HX OF AND NO CURRENT PROBLEM Pyelonephritis Rectal bleeding Septic shock Severe sepsis Splenomegaly, not elsewhere classified Supratherapeutic INR UTI (urinary tract infection) Surgical History History of appendectomy History of arthroplasty of right knee Hx of lithotripsy Hx of ventral hernia repair S/P cholecystectomy S/P sinus surgery S/P MARLEE (total abdominal hysterectomy) Family History Father Cancer Liver Brother Kidney disease Renal failure Cirrhosis Brother Cirrhosis Other Family history non-contributory Social History Smoking Status: Current every day smoker Tobacco Type: Cigarettes Cigarettes Per Day: 1/2 PPD; Second Hand Exposure: Yes; Hx Alcohol Use: No Hx Substance Use: No Preferred Language: Yi Communication Ability: Effective Desktop Support Associate Required: No Beliefs That Will Affect Care: None marital status: Current Living Situation: Other Current Living Situation Comment: friend/caregiver herbert vaughan current occupational status: disabled Feels Safe at Home: Yes Allergies Allergies Allergy/AdvReac Type Severity Reaction Status Date / Time Iodinated Contrast Media Allergy Intermediate hives-PT Verified 12/28/19 23:31 DENIES SEE NOTE adhesive Allergy Mild RED RASH Verified 12/28/19 23:31 CAUSED BY PAPER TAPE vancomycin AdvReac Severe renal Verified 12/28/19 23:31 failure, required dialysis x 3 MONTHS acetaminophen AdvReac Intermediate Liver Verified 12/28/19 23:31 problems. alprazolam AdvReac Intermediate MAKES Verified 12/28/19 23:31 LOOPY,DO AND SAY SILLY THINGS codeine AdvReac Intermediate UPSET Verified 12/28/19 23:31 STOMACH haloperidol AdvReac Intermediate nervous Verified 12/28/19 23:31 and anxious metformin AdvReac Intermediate HANDS FEET Verified 12/28/19 23:31 FACE NUMB methylparaben AdvReac Intermediate FLUID Verified 12/28/19 23:31 RETENTION morphine AdvReac Intermediate SWELLING Verified 12/28/19 23:31 LEGS AND FEET oxymorphone AdvReac Intermediate FLUID Verified 12/28/19 23:31 RETENTION pregabalin AdvReac Intermediate Aphasia/Speech Verified 12/28/19 23:31 impairments gabapentin AdvReac Mild Aphasia/Speech Verified 12/28/19 23:31 impairments Sulfa (Sulfonamide AdvReac Mild GI SYMPTOMS Verified 12/28/19 23:31 Antibiotics) Home Meds Home Medications Medication Instructions Recorded Confirmed Xarelto 20 mg PO PM 03/12/19 12/28/19 duloxetine [Cymbalta] 60 mg PO BID 03/12/19 12/28/19 furosemide [Lasix] 60 mg PO QAM 03/12/19 12/28/19 insulin aspart U-100 [Novolog 10 unit SUBCUT TIDM 03/12/19 12/28/19 Flexpen U-100 Insulin] potassium chloride 10 meq PO BID 03/12/19 12/28/19 prochlorperazine maleate 5 mg PO TID PRN 03/12/19 12/28/19 [Compazine] carvedilol 12.5 mg PO BID 03/21/19 12/28/19 nortriptyline [Pamelor] 25 mg PO HS 03/21/19 12/28/19 spironolactone [Aldactone] 25 mg PO HS 07/05/19 12/28/19 Trulicity 1.5 mg SUBCUT WK 07/13/19 12/28/19 Basaglar KwikPen U-100 Insulin 120 unit SUBCUT BID 08/01/19 12/28/19 albuterol sulfate [Ventolin HFA] 2 puff INHALATION Q4H PRN 08/01/19 12/28/19 baclofen 10 mg PO BID 08/01/19 12/28/19 ferrous sulfate 325 mg PO QAM 08/01/19 12/28/19 pantoprazole 40 mg PO DAILYBB 08/01/19 12/28/19 benzonatate 200 mg PO TID PRN 08/29/19 12/28/19 trazodone 50 mg PO HS 08/29/19 12/28/19 famotidine 20 mg PO BID 09/17/19 12/28/19 oxycodone 10 mg PO QID PRN 09/17/19 12/28/19 Virt-Phos 250 Neutral 1 tab PO QAM 10/04/19 12/28/19 albuterol sulfate 2.5 mg INHALATION Q4 PRN 10/04/19 12/28/19 magnesium chloride 64 mg PO PM 10/05/19 12/28/19 lactulose [Constulose] 30 ml PO QID 10/11/19 12/28/19 levothyroxine 175 mcg PO DAILY 11/20/19 12/28/19 Previous Rx's Medication Instructions Recorded Xifaxan 550 mg PO BID #60 tab 08/15/19 Oxygen Home #1 ea 10/07/19 lidocaine 1 patch TOPICAL BID PRN #15 ea 12/10/19 Results & Data (ED) Vital Signs Vital Signs - 24 hr 12/28/19 23:22 12/28/19 23:37 12/28/19 23:41 Temperature 36.6 C Temperature Source Oral Pulse Rate 75 Pulse Rate [Apical] Pulse Rate from SpO2 Sensor Respiratory Rate 18 Respiratory Effort / Characteristics Non-Labored Spontaneous Respiratory Depth Normal Blood Pressure 142/84 H Blood Pressure [Right Arm] Blood Pressure Mean 103 Blood Pressure Mean [Right Arm] Pulse Oximetry 94 93 Oxygen Delivery Method Room Air Room Air Room Air Oxygen Flow Rate Sepsis Recent Fever Within 48 Hours No Sepsis New/Unexplained Change in Mental Status No Sepsis Action Taken by Nursing No Action Required Pulse Oximetry Post Tiitration 93 12/29/19 00:30 12/29/19 01:00 12/29/19 01:30 Temperature Temperature Source Pulse Rate 77 Pulse Rate [Apical] 72 Pulse Rate from SpO2 Sensor 88 77 Respiratory Rate 12 13 21 Respiratory Effort / Characteristics Respiratory Depth Normal Blood Pressure 130/106 H 133/80 Blood Pressure [Right Arm] 116/73 Blood Pressure Mean 115 101 Blood Pressure Mean [Right Arm] 87 Pulse Oximetry 92 99 95 Oxygen Delivery Method Nasal Cannula Nasal Cannula Nasal Cannula Oxygen Flow Rate 2.5 2.5 2.5 Sepsis Recent Fever Within 48 Hours Sepsis New/Unexplained Change in Mental Status Sepsis Action Taken by Nursing Pulse Oximetry Post Tiitration Laboratory Data Result diagrams: 12/29/19 00:22 12/29/19 00:22 Lab Results 12/29/19 12/29/19 12/29/19 Range/Units 00:14 00:22 00:22 WBC 10.29 (4.8-10.8) K/uL RBC 4.02 L (4.2-5.4) M/uL Hgb 13.3 (12.0-16.0) g/dL Hct 39.4 (37-47) % MCV 98.0 (80-100) fL MCH 33.1 (25-34) pg MCHC 33.8 (32-36) g/dL RDW Std Deviation 49.9 H (36.4-46.3) fL RDW Coeff of Mari 14.0 (11.5-14.5) % Plt Count 151 (130-400) K/uL MPV 9.8 (7.4-10.4) fL Immature Gran % (Auto) 0.3 % Neut % (Auto) 65.3 % Lymph % (Auto) 20.7 % Amador % (Auto) 11.0 % Eos % (Auto) 2.5 % Baso % (Auto) 0.2 % Neut # (Auto) 6.72 H (1.4-6.5) K/uL Lymph # (Auto) 2.13 (1.2-3.4) K/uL Amador # (Auto) 1.13 H (0.11-0.59) K/uL Eos # (Auto) 0.26 (0-0.5) K/uL Baso # (Auto) 0.02 (0-0.2) K/uL Immature Gran # (Auto) 0.03 H (0.00-0.02) K/uL Sodium 135 L (136-145) mmol/L Potassium 4.8 (3.5-5.1) mmol/L Chloride 105 (98-107) mmol/L Carbon Dioxide 23 (21-32) mmol/L Anion Gap 7.0 (3-11) BUN 16 (7-18) mg/dl Creatinine 1.34 H (0.6-1.2) mg/dl Est Cr Clr Drug Dosing Not Reportable Est GFR ( Amer) 51.2 Est GFR (Non-Af Amer) 44.2 BUN/Creatinine Ratio 12.2 (10-20) Glucose 242 H (70-99) mg/dl Calcium 9.9 (8.5-10.1) mg/dl Magnesium 1.8 (1.8-2.4) mg/dl Total Bilirubin 1.4 H (0.2-1) mg/dl AST 35 (15-37) U/L ALT 36 (12-78) U/L Alkaline Phosphatase 158 H (45-117) U/L Ammonia (11-32) umol/L Total Protein 6.8 (6.4-8.2) gm/dl Albumin 2.7 L (3.4-5.0) gm/dl Globulin 4.1 H (2.5-4.0) gm/dl Albumin/Globulin Ratio 0.7 L (0.9-2) TSH 1.710 (0.300-4.500) uIu/ml 12/29/19 Range/Units 00:49 WBC (4.8-10.8) K/uL RBC (4.2-5.4) M/uL Hgb (12.0-16.0) g/dL Hct (37-47) % MCV (80-100) fL MCH (25-34) pg MCHC (32-36) g/dL RDW Std Deviation (36.4-46.3) fL RDW Coeff of Mari (11.5-14.5) % Plt Count (130-400) K/uL MPV (7.4-10.4) fL Immature Gran % (Auto) % Neut % (Auto) % Lymph % (Auto) % Amador % (Auto) % Eos % (Auto) % Baso % (Auto) % Neut # (Auto) (1.4-6.5) K/uL Lymph # (Auto) (1.2-3.4) K/uL Amador # (Auto) (0.11-0.59) K/uL Eos # (Auto) (0-0.5) K/uL Baso # (Auto) (0-0.2) K/uL Immature Gran # (Auto) (0.00-0.02) K/uL Sodium (136-145) mmol/L Potassium (3.5-5.1) mmol/L Chloride (98-107) mmol/L Carbon Dioxide (21-32) mmol/L Anion Gap (3-11) BUN (7-18) mg/dl Creatinine (0.6-1.2) mg/dl Est Cr Clr Drug Dosing Est GFR ( Amer) Est GFR (Non-Af Amer) BUN/Creatinine Ratio (10-20) Glucose (70-99) mg/dl Calcium (8.5-10.1) mg/dl Magnesium (1.8-2.4) mg/dl Total Bilirubin (0.2-1) mg/dl AST (15-37) U/L ALT (12-78) U/L Alkaline Phosphatase (45-117) U/L Ammonia 72.0 H (11-32) umol/L Total Protein (6.4-8.2) gm/dl Albumin (3.4-5.0) gm/dl Globulin (2.5-4.0) gm/dl Albumin/Globulin Ratio (0.9-2) TSH (0.300-4.500) uIu/ml Discharge Plan Visit Data Chief Complaint: Altered Mental Status Stated Complaint: tremors, ams ED Provider: Jonathan Gupta Discharge Problem: Hyperammonemia, AMS (altered mental status) Forms Stand Alone Forms: [facility] Prescriptions Prescriptions: No Action spironolactone [Aldactone] 25 mg tablet 25 mg PO HS RF: 0 Basaglar KwikPen U-100 Insulin 100 unit/mL (3 mL) insulin pen 120 unit SUBCUT BID RF: 0 baclofen 10 mg tablet 10 mg PO BID RF: 0 pantoprazole 40 mg tablet,delayed release (DR/EC) 40 mg PO DAILYBB RF: 0 ferrous sulfate 325 mg (65 mg iron) tablet 325 mg PO QAM RF: 0 albuterol sulfate [Ventolin HFA] 90 mcg/actuation HFA aerosol inhaler 2 puff inhalation Q4H PRN (Reason: Shortness Of Breath) RF: 0 trazodone 50 mg tablet 50 mg PO HS RF: 0 benzonatate 200 mg capsule 200 mg PO TID PRN (Reason: Cough) RF: 0 albuterol sulfate 2.5 mg /3 mL (0.083 %) solution for nebulization 2.5 mg inhalation Q4 PRN (Reason: Shortness Of Breath) RF: 0 Virt-Phos 250 Neutral 250 mg tablet 1 tab PO QAM RF: 0 levothyroxine 175 mcg tablet 175 mcg PO DAILY RF: 0 lidocaine 3.5 % adhesive patch,medicated 1 patch topical BID PRN (Reason: neck pain) Qty: 15 RF: 0 potassium chloride 10 mEq capsule, extended release 10 meq PO BID RF: 0 prochlorperazine maleate [Compazine] 5 mg tablet 5 mg PO TID PRN (Reason: Nausea) RF: 0 insulin aspart U-100 [Novolog Flexpen U-100 Insulin] 100 unit/mL (3 mL) insulin pen 10 unit SUBCUT TIDM RF: 0 duloxetine [Cymbalta] 60 mg capsule,delayed release(DR/EC) 60 mg PO BID RF: 0 Xarelto 20 mg tablet 20 mg PO PM RF: 0 furosemide [Lasix] 20 mg Tablet 60 mg PO QAM RF: 0 carvedilol 12.5 mg Tablet 12.5 mg PO BID RF: 0 nortriptyline [Pamelor] 25 mg Capsule 25 mg PO HS RF: 0 Trulicity 1.5 mg/0.5 mL pen injector 1.5 mg SUBCUT WK RF: 0 Xifaxan 550 mg Tablet 550 mg PO BID Qty: 60 RF: 0 famotidine 20 mg tablet 20 mg PO BID RF: 0 oxycodone 10 mg Tablet 10 mg PO QID PRN (Reason: Pain) RF: 0 magnesium chloride 64 mg tablet,delayed release (DR/EC) 64 mg PO PM RF: 0 (DME) Oxygen Home Liters Per Minute See Rx Instructions .ROUTE .MEDSUPPLY Qty: 1 RF: 0 lactulose [Constulose] 10 gram/15 mL solution 30 ml PO QID RF: 0
[2019-12-29 00:31] LABS: Basophils # (auto) 0.02 K/uL (0-0.2); Basophils % (auto) 0.2 %; Eosinophils # (auto) 0.26 K/uL (0-0.5); Eosinophils % (auto) 2.5 %; Hematocrit (blood only) 39.4 % (37-47); Hemoglobin 13.3 g/dL (12.0-16.0); Immature Granulocytes # (auto) 0.03 K/uL (0.00-0.02); Immature Granulocytes % (auto) 0.3 %; Lymphocytes # (auto) 2.13 K/uL (1.2-3.4); Lymphocytes % (auto) 20.7 %; Mean Corpuscular Hemoglobin 33.1 pg (25-34); Mean Corpuscular Hgb Conc 33.8 g/dL (32-36); Mean Platelet Volume 9.8 fL (7.4-10.4); Monocytes # (auto) 1.13 K/uL (0.11-0.59); Neutrophils # (auto) 6.72 K/uL (1.4-6.5); Neutrophils % (auto) 65.3 %; Platelet Count 151 K/uL (130-400); RDW Standard Deviation 49.9 fL (36.4-46.3); Red Blood Count 4.02 M/uL (4.2-5.4); White Blood Count 10.29 K/uL (4.8-10.8)
[2019-12-29 00:48] LABS: Alanine Aminotransferase 36 U/L (12-78); Albumin Level 2.7 gm/dl (3.4-5.0); Aspartate Aminotransferase 35 U/L (15-37); BUN Creatinine Ratio 12.2 (10-20); Blood Urea Nitrogen 16 mg/dl (7-18); Calcium 9.9 mg/dl (8.5-10.1); Carbon Dioxide 23 mmol/L (21-32); Chloride 105 mmol/L (98-107); Est GFR (African American) 51.2; Est GFR (Non-African American) 44.2; Glucose 242 mg/dl (70-99); Magnesium 1.8 mg/dl (1.8-2.4); Potassium 4.8 mmol/L (3.5-5.1); Sodium 135 mmol/L (136-145)
[2019-12-29 00:58] LABS: Albumin Globulin Ratio 0.7 (0.9-2); Alkaline Phosphatase 158 U/L (45-117); Bilirubin,Total 1.4 mg/dl (0.2-1); Globulin 4.1 gm/dl (2.5-4.0); Total Protein 6.8 gm/dl (6.4-8.2)
[2019-12-29] MEDS ORDERED: LACTULOSE SYRUP 30 GM/45 ML UDP PO STA (01:28)
[2019-12-29] MEDS ORDERED: ALBUTEROL 0.083% NEBU SOLN 3 ML VIAL INH PRN (03:59)
[2019-12-29] MEDS ORDERED: ALBUTEROL HFA 8 GM INHALER INH PRN (03:59)
[2019-12-29] MEDS ORDERED: OXYGEN HOME SCH (03:59)
[2019-12-29] MEDS ORDERED: NITROGLYCERIN SL 0.4 MG/TAB TAB SL PRN (03:59)
[2019-12-29] MEDS ORDERED: PROCHLORPERAZINE MALEATE 5 MG TAB PO PRN (03:59)
[2019-12-29] MEDS ORDERED: BENZONATATE 100 MG CAPSULE PO PRN (03:59)
[2019-12-29] MEDS ORDERED: SODIUM CHLORIDE 0.9% 1000ML 1,000 ML IV SCH (03:59)
[2019-12-29] MEDS ORDERED: ONDANSETRON INJ 2 MG/ML 2 ML VIAL IV PRN (03:59)
[2019-12-29] MEDS: PATIENT'S HEIGHT AND/OR WEIGHT NEEDED SCH ×2 (04:45→05:04)
[2019-12-29] MEDS ORDERED: PHARMACY GLYCEMIC MGMT CONSULT PRN (04:52)
[2019-12-29] MEDS ORDERED: GLUCOSE 40% GEL 15 GM TUBE PO PRN (05:00)
[2019-12-29] MEDS ORDERED: GLUCOSE 10 TABS/TUBE PO PRN (05:00)
[2019-12-29] MEDS ORDERED: CARBOHYDRATES FOR HYPOGLYCEMIA PO PRN (05:00)
[2019-12-29] MEDS ORDERED: DEXTROSE 50% 50 ML SYRINGE IV PRN (05:00)
[2019-12-29] MEDS ORDERED: LIDOCAINE 5% 1 PATCH TD PRN (05:00)
[2019-12-29] MEDS ORDERED: GLUCAGON FOR INJ 1 MG VIAL IM PRN (05:00)
--- NOTE | 2019-12-29 05:44 | History and Physical Report ---
DATE OF ADMISSION: 12/29/2019 CHIEF COMPLAINT: Altered mental status. HISTORY OF PRESENT ILLNESS: This is a 54-year-old female with past medical history significant for obstructive sleep apnea, noncompliant with BiPAP, type 2 diabetes, hypothyroidism, diabetic polyneuropathy, cirrhosis, history of paroxysmal atrial fibrillation on Xarelto, history of PE in the past, history of hyperlipidemia, hypothyroidism, COPD, hypertension, morbid obesity, GERD, history of tobacco dependence, history of migraines, history of bipolar depression, history of DVTs. The patient presents with altered mental status. The patient is on lactulose and Xifaxan. The patient recently last Tuesday went to [facility] for pain management clinic. It was a 3-hour drive and she seemed to have not taken lactulose that day. She presents with some altered mental status. She lives with her caregiver. Currently, patient is very drowsy. Have to constantly wake her up. Denies any headache. She says she has some blurred visions. Some cough with whitish phlegm. Denies any fever, chills. No chest pain, no shortness of breath, no nausea. Constantly complains of pain about 7/10 to 8/10 severity and goes back to sleep. She answers the same thing for different questions. Could not get a complete review of systems from the patient, but her hemodynamics are stable. Her ammonia level is 72. She was ordered lactulose in the ER. ALLERGIES: IODINATED CONTRAST MEDIA, ADHESIVES, VANCOMYCIN, ACETAMINOPHEN, ALPRAZOLAM, CODEINE, HALOPERIDOL, METFORMIN, METHYLPARABEN, MORPHINE, OXYMORPHONE, PREGABALIN, GABAPENTIN, SULFA ANTIBIOTICS. PAST MEDICAL HISTORY: As mentioned above. PAST SURGICAL HISTORY: Right total knee arthroplasty, colonoscopy with biopsy, EGDs, implantation of abdominal hernia with mesh, appendectomy, cholecystectomy, sinus surgery, total abdominal hysterectomy with removal of tubes. MEDICATIONS: The patient is on albuterol 2.5 mg inhalation q. 4 hours p.r.n., albuterol 2 puffs inhalation q. 4 hours p.r.n., baclofen 10 mg p.o. b.i.d., Basaglar insulin 120 units b.i.d., benzonatate 200 mg p.o. t.i.d. p.r.n., Coreg 12.5 mg p.o. b.i.d., Cymbalta 60 mg p.o. b.i.d., famotidine 20 mg p.o. b.i.d., ferrous sulfate 325 mg p.o. a.m., Lasix 60 mg p.o. a.m., insulin 10 units subcutaneous t.i.d., NovoLog 10 units subcutaneous t.i.d. with meals., Lactulose 30 mL p.o. q.i.d., levothyroxine 175 mcg p.o. daily, lidocaine patch topical b.i.d. p.r.n., magnesium chloride 64 mg p.o. p.m., nortriptyline 25 mg p.o. at bedtime, oxycodone 10 mg p.o. daily p.r.n., Protonix 40 mg p.o. daily, potassium chloride 10 mEq p.o. b.i.d., Compazine 5 mg p.o. daily p.r.n., spironolactone 75 mg p.o. at bedtime, trazodone 50 mg at bedtime, Trulicity 1.5 mg subcutaneous weekly b.i.d., Neutra-Phos 1 tablet p.o. a.m., Xarelto 20 mg p.o. a.m., Xifaxan 550 mg p.o. b.i.d. FAMILY HISTORY: Significant for father had liver cancer; mother had heart disorder and lung disorder; brother from renal failure and had cirrhosis. SOCIAL HISTORY: Lives with a caregiver. Currently smokes half pack a day for past 34 years. No alcohol use, no drug use. REVIEW OF SYSTEMS: As per HPI, could not get any review of systems as the patient is very drowsy and goes back to sleep. PHYSICAL EXAMINATION: VITAL SIGNS: Temperature 36.8, pulse 80, respiratory rate 18, blood pressure 141/110, oxygen 96% on room air. HEENT: No pallor. Pupils equal, round, reactive to light. NECK: No JVD, no neck masses. CARDIOVASCULAR: S1, S2 heard. Regular rate and rhythm, no murmur, no gallop. RESPIRATORY SYSTEM: Normal AP diameter. No accessory muscle use. No wheezing, no crackles. ABDOMEN: Soft, bowel sounds present, nontender. No distention. CENTRAL NERVOUS SYSTEM: Drowsy, but arousable, answers some questions appropriately, but goes back to sleep. Moving extremities. EXTREMITIES: No edema, no erythema seen. LABORATORY DATA: WBC 10.2, hemoglobin 13.3, hematocrit 39.4, platelets 151. Sodium 145, potassium 4.8, chloride 105, bicarbonate 23, BUN 16, creatinine 1.34, glucose 242, calcium 9.9, magnesium 1.8, total bilirubin 1.4, AST 35, ALT 36, alkaline phosphatase 158. Ammonia 72. TSH 1.7. IMAGING DATA: Chest x-ray, no acute findings seen. EKG: Sinus rhythm with first-degree AV block at a rate of 88, no acute ST changes seen. ASSESSMENT AND PLAN: This is a 54-year-old female who presents with altered mental status. 1. Altered mental status most likely from hepatic encephalopathy, ammonia of 72. The patient has recently not taken lactulose as she traveled. Received a dose of lactulose in the ER. Will continue her home dose. Follow the repeat labs in the a.m. Consult GI for further recommendation. Getting gentle fluids. 2. Acute kidney injury, creatinine of 1.3, baseline creatinine around 1. Getting fluids. We will follow the labs in the a.m. Also follow UA. 3. History of MEEK cirrhosis. Continue her home diuretics. Continue Xifaxan and lactulose as above. Getting gentle fluids. Monitor for any volume overload. 4. History of diabetes. Continue her home insulin regimen and insulin sliding scale. Follow the blood sugars, follow HbA1c level. 5. History of atrial fibrillation, on Xarelto and Coreg. We will monitor. 6. History of hypothyroidism. Continue Synthroid. 7. History of obstructive sleep apnea, noncompliant with BiPAP. Continue oxygen while in the hospital. 8. History of morbid obesity, needs counseling. 9. Chronic diastolic congestive heart failure. Continue home Coreg, Lasix, and spironolactone. We will monitor for any volume overload. 10. History of electrolyte abnormalities. Continue her home potassium and phosphorus supplements. 11. History of neuropathy. on Cymbalta, and baclofen. Baclofen is held because the patient is drowsy. 12. Deep venous thrombosis prophylaxis, on Xarelto. DISPOSITION: Admit to med tele. Expect to discharge home and follow with family doctor. Level 1 full code. MTDD
[2019-12-29] MEDS: PANTOprazole 40 MG TAB PO SCH (05:56)
[2019-12-29] MEDS: LEVOTHYROXINE SODIUM 175 MCG TABLET PO SCH (05:56)
[2019-12-29 07:18] LABS: Basophils # (auto) 0.02 K/uL (0-0.2); Basophils % (auto) 0.2 %; Eosinophils # (auto) 0.27 K/uL (0-0.5); Eosinophils % (auto) 2.5 %; Hematocrit (blood only) 38.7 % (37-47); Immature Granulocytes # (auto) 0.05 K/uL (0.00-0.02); Immature Granulocytes % (auto) 0.5 %; Lymphocytes # (auto) 2.79 K/uL (1.2-3.4); Lymphocytes % (auto) 25.8 %; Mean Corpuscular Hemoglobin 33.2 pg (25-34); Mean Corpuscular Hgb Conc 33.6 g/dL (32-36); Mean Platelet Volume 9.9 fL (7.4-10.4); Monocytes # (auto) 1.25 K/uL (0.11-0.59); Monocytes % (auto) 11.6 %; Neutrophils # (auto) 6.42 K/uL (1.4-6.5); Neutrophils % (auto) 59.4 %; Platelet Count 147 K/uL (130-400); RDW Coefficient of Variation 14.1 % (11.5-14.5); RDW Standard Deviation 49.7 fL (36.4-46.3); Red Blood Count 3.91 M/uL (4.2-5.4)
[2019-12-29 07:31] LABS: Appearance Urine Clear (Clear); Bilirubin Urine Negative (Negative); Blood Urine 2+ (Negative); Color Urine Dark Yellow; Epithelial Cell Urine Auto >30 /lpf (0-5); Glucose Urine UA Negative (Negative); Ketones Urine Negative (Negative); Leukocyte Esterase Urine Negative (Negative); Nitrite Urine Negative (Negative); Protein Urine Trace (Negative); RBC Urine Automated >30 /hpf (0-4); Specific Gravity Urine 1.024 (1.000-1.030); Urobilinogen Urine Negative (Negative)
[2019-12-29 07:43] LABS: BUN Creatinine Ratio 13.8 (10-20); Calcium 9.5 mg/dl (8.5-10.1); Creatinine Clr Calc Pharmacy 75.9 ml/min; Est GFR (African American) 56.2; Est GFR (Non-African American) 48.5; Magnesium 1.9 mg/dl (1.8-2.4); Potassium 4.6 mmol/L (3.5-5.1)
[2019-12-29 07:52] LABS: Estimated Average Glucose 189 mg/dl; Hemoglobin A1C 8.2 % (4.5-5.6)
[2019-12-29 07:53] LABS: Bacteria Urine Automated 1+ (Negative); Mucus Urine Present (None Prsent)
[2019-12-29] MEDS: FAMOTIDINE 20 MG TAB PO SCH ×2 (08:15→20:12)
[2019-12-29] MEDS: POT PHOSPHATE MONOBASIC W/ SOD TAB PO SCH (08:15)
[2019-12-29] MEDS: POTASSIUM CHLORIDE 10 MEQ TABCR PO SCH ×2 (08:15→20:14)
[2019-12-29] MEDS: DULOXETINE HCL 60 MG CAP PO SCH ×2 (08:16→20:13)
[2019-12-29] MEDS: LACTULOSE SYRUP 20 GM/30 ML UDC PO SCH ×4 (08:16→20:10)
[2019-12-29] MEDS: FUROSEMIDE 20 MG TAB PO SCH (08:16)
[2019-12-29] MEDS: carvediloL 12.5 MG TAB PO SCH ×2 (08:16→20:14)
[2019-12-29] MEDS: FERROUS SULFATE 325 MG TAB PO SCH (08:16)
[2019-12-29] MEDS: RIFAXIMIN 550 MG TABLET PO SCH ×2 (08:16→20:11)
[2019-12-29] MEDS: INSULIN GLARGINE SOLOSTAR 100 UNITS/ML 3 ML PEN SQ SCH ×2 (08:17→20:17)
[2019-12-29] MEDS: INSULIN ASPART 100 UNITS/ML 3 ML PEN SC SCH ×4 (08:18→20:17)
--- NOTE | 2019-12-29 09:13 | XRay Report ---
XR chest 1V portable HISTORY: 54 years-old Female weakness acute weakness with altered mental status COMPARISON: Chest radiograph 12/19/2019 TECHNIQUE: Portable AP view of the chest FINDINGS: Unchanged cardiomegaly. Calcified plaque of the thoracic aorta. No pneumothorax, pleural effusion, ai rspace consolidation or overt pulmonary edema. Degenerative changes of the shoulders and spine. Mild right hemidiaphragmatic elevation. IMPRESSION: Cardiomegaly without acute process. ACT 112: Negative or not required by law. The above report was generated using voice recognition software. It may contain grammatical, syntax o r spelling errors. Electronically signed by: Rancho Rees M.D. 12/29/2019 9:11 AM
--- NOTE | 2019-12-29 09:30 | Pharmacy Report ---
Glycemic Control Consultation - Date of Service December 29, 2019 - Scope Scope: Glycemic Pharmacist consulted for glycemic control and to write orders per [facility] inpatient glycemic control protocol. - Objective Weight: 158.7 kg Accuchecks BSG (last 24hrs): 12/29/19 12/29/19 12/29/19 00:22 06:58 07:36 Glucose 242 H 227 H POC Glucose 210 H Laboratory Data (last 24hrs): 12/29/19 12/29/19 00:22 06:58 Potassium 4.8 4.6 Carbon Dioxide 23 25 Anion Gap 7.0 6.0 Creatinine 1.34 H 1.24 H Est Cr Clr Drug Dosing Not Reportable 75.9 HbA1c: Hemoglobin A1c 8.2 % (4.5-5.6) H 12/29/19 06:58 - Recent Pertinent Medications Outpatient Anti-diabetic Regimen: * Lantus 120 units SQ BID * Novolog 10 units TID With meals * Dulaglutide 1.5mg SQ qweekly * A1c = 8.2 % 12/29/19 Risk Factors for Insulin Resistance: * Diet: Type 2 DM - Assessment & Plan Assessment & Plan: ASSESSMENT: * 54 yo female, PMH O, Type 2 DM, hypothyroid, cirrhosis, AFib on Xarelto, Hx PE & DVTs, hyperlipidemia, COPD, HTN, bipolar depression, presented with AMS. * Will begin patient on basal bolus insulin therapy, splitting dosing to more 50:50 basal:bolus, as patient's home dosing is heavily basal. PLAN FOR INPATIENT GLYCEMIC CONTROL: * Holding outpatient dulaglutide * Basal insulin * Lantus SQ BID * BSG < 140 = 35 units * BSG 140-180 = 40 units * BSG > 180 = 45 units * Bolus insulin * NovoLog per scale ACHS or Q6hrs while NPO * Goal Range: Low 110 mg/dL - High 140 mg/dL * Correction Factor: 12 mg/dL/unit * Nutritional / Prandial insulin per carb ratio of 1 unit per 4 grams CHO consumed * Please note that the plan above was derived based on current level of insulin resistance and hospital stress. These recommendations are appropriate for inpatient admission only. Plan of care upon discharge will need to be reassessed to avoid potential outpatient hypo/hyperglycemia. Thank you.
--- NOTE | 2019-12-29 13:14 | Gastrointestinal Consultation ---
Date of Consultation December 29, 2019 Assessment & Plan (1) AMS (altered mental status): (2) Hepatic encephalopathy: (3) Cirrhosis: likely decompensated with HE due to missed lactulose doses. No evidence of GI bleeding nor infection. Recs: continue lactulose, titrate to 2-3 soft bms daily start rifaximin 550 mg BID start zinc sulfate daily diet as tolerated, supportive care rest as per primary team Thank you for allowing me to participate in the care of this patient History of Present Illness Attending Physician: Dali Boss MD 54 yo female with hx cirrhosis here with AMS. She reports that she missed a few doses of her lactulose earlier this week when she was driving to [facility] for a pain management clinic. On admission had AMS and was drowsy, currently she is still somewhat somnolent but A and O x 3 and without asterixis. No hematochezia nor hematemesis, denies any other complaints at this time. labs reviewed. Allergies Allergy/AdvReac Type Severity Reaction Status Date / Time Iodinated Contrast Media Allergy Intermediate hives-PT Verified 12/28/19 23:31 DENIES SEE NOTE adhesive Allergy Mild RED RASH Verified 12/28/19 23:31 CAUSED BY PAPER TAPE vancomycin AdvReac Severe renal Verified 12/28/19 23:31 failure, required dialysis x 3 MONTHS acetaminophen AdvReac Intermediate Liver Verified 12/28/19 23:31 problems. alprazolam AdvReac Intermediate MAKES Verified 12/28/19 23:31 LOOPY,DO AND SAY SILLY THINGS codeine AdvReac Intermediate UPSET Verified 12/28/19 23:31 STOMACH haloperidol AdvReac Intermediate nervous Verified 12/28/19 23:31 and anxious metformin AdvReac Intermediate HANDS FEET Verified 12/28/19 23:31 FACE NUMB methylparaben AdvReac Intermediate FLUID Verified 12/28/19 23:31 RETENTION morphine AdvReac Intermediate SWELLING Verified 12/28/19 23:31 LEGS AND FEET oxymorphone AdvReac Intermediate FLUID Verified 12/28/19 23:31 RETENTION pregabalin AdvReac Intermediate Aphasia/Speech Verified 12/28/19 23:31 impairments gabapentin AdvReac Mild Aphasia/Speech Verified 12/28/19 23:31 impairments Sulfa (Sulfonamide AdvReac Mild GI SYMPTOMS Verified 12/28/19 23:31 Antibiotics) Home Medications Home Medications Medication Instructions Recorded Confirmed Type Xarelto 20 mg PO PM 03/12/19 12/28/19 History duloxetine [Cymbalta] 60 mg PO BID 03/12/19 12/28/19 History furosemide [Lasix] 60 mg PO QAM 03/12/19 12/28/19 History insulin aspart U-100 [Novolog 10 unit SUBCUT TIDM 03/12/19 12/28/19 History Flexpen U-100 Insulin] potassium chloride 10 meq PO BID 03/12/19 12/28/19 History prochlorperazine maleate 5 mg PO TID PRN 03/12/19 12/28/19 History [Compazine] carvedilol 12.5 mg PO BID 03/21/19 12/28/19 History nortriptyline [Pamelor] 25 mg PO HS 03/21/19 12/28/19 History spironolactone [Aldactone] 25 mg PO HS 07/05/19 12/28/19 History Trulicity 1.5 mg SUBCUT WK 07/13/19 12/28/19 History Basaglar KwikPen U-100 Insulin 120 unit SUBCUT BID 08/01/19 12/28/19 History albuterol sulfate [Ventolin HFA] 2 puff INHALATION Q4H PRN 08/01/19 12/28/19 History baclofen 10 mg PO BID 08/01/19 12/28/19 History ferrous sulfate 325 mg PO QAM 08/01/19 12/28/19 History pantoprazole 40 mg PO DAILYBB 08/01/19 12/28/19 History Xifaxan 550 mg PO BID #60 tab 08/15/19 12/28/19 Rx benzonatate 200 mg PO TID PRN 08/29/19 12/28/19 History trazodone 50 mg PO HS 08/29/19 12/28/19 History famotidine 20 mg PO BID 09/17/19 12/28/19 History oxycodone 10 mg PO QID PRN 09/17/19 12/28/19 History Virt-Phos 250 Neutral 1 tab PO QAM 10/04/19 12/28/19 History albuterol sulfate 2.5 mg INHALATION Q4 PRN 10/04/19 12/28/19 History magnesium chloride 64 mg PO PM 10/05/19 12/28/19 History Oxygen Home #1 ea 10/07/19 11/19/19 Rx lactulose [Constulose] 30 ml PO QID 10/11/19 12/28/19 History levothyroxine 175 mcg PO DAILY 11/20/19 12/28/19 History lidocaine 1 patch TOPICAL BID PRN #15 ea 12/10/19 12/28/19 Rx Patient History Medical History Abdominal wall cellulitis Acute hepatic encephalopathy Atrial fibrillation by electrocardiogram DX: 2013 TAKES XARELTO AND FOLLOW WITH MEDICAL DOCTOR Bowel obstruction Cauda equina compression Cellulitis and abscess of trunk (Unknown) Chronic low back pain Deep vein blood clot of left lower extremity RIGHT AND LEFT LEG AND THEN MOVED LUNG - 2001 Diabetes Diabetic neuropathy (01/04/11) Fracture of fourth metatarsal bone of left foot Gastritis Hyperammonemia Hypokalemia Hypomagnesemia Incarcerated ventral hernia Kidney stone HX OF AND HAD LITHOTRIPSY RIMA (obstructive sleep apnea) HX OF AND NO CURRENT PROBLEM Pyelonephritis Rectal bleeding Septic shock Severe sepsis Splenomegaly, not elsewhere classified Supratherapeutic INR UTI (urinary tract infection) Surgical History History of appendectomy History of arthroplasty of right knee Hx of lithotripsy Hx of ventral hernia repair S/P cholecystectomy S/P sinus surgery S/P MARLEE (total abdominal hysterectomy) Family History Father Cancer Liver Brother Kidney disease Renal failure Cirrhosis Brother Cirrhosis Other Family history non-contributory Social History Smoking Status: Current every day smoker Tobacco Type: Cigarettes Cigarettes Per Day: 1/2 PPD; Second Hand Exposure: Yes; Hx Alcohol Use: No Hx Substance Use: No Preferred Language: Welsh Communication Ability: Effective Bottle Hop Required: No Beliefs That Will Affect Care: None marital status: Current Living Situation: Other Current Living Situation Comment: friend/caregiver herbert vaughan current occupational status: disabled Feels Safe at Home: Yes Review of Systems Constitutional: no fever, no chills and no weight loss Eyes: as per Subjective / HPI Ear, Nose, Mouth, Throat: as per Subjective / HPI Respiratory: no dyspnea and no dyspnea on exertion Cardiovascular: no chest pain and no palpitations Gastrointestinal: as per Subjective / HPI Musculoskeletal: no joint pain and no swelling Integumentary: no rash and no lesions Neurologic: no numbness and no paresthesia Psychiatric: no depression and no anxiety Endocrine: no fatigue Hematologic / Lymphatic: no easy bleeding and no easy bruising Physical Exam Constitutional: WD/WN, vitals as above Eyes: EOM intact bilaterally Neck: normal visual inspection Respiratory: normal respiratory effort, lungs clear to auscultation Cardiovascular: RRR, no murmur, no edema Gastrointestinal (Abdomen): Inspection/Auscultation: abdomen normal to inspection; abdomen not distended Percussion/Palpation: abdomen soft; abdomen nontender and no hepatosplenomegaly Musculoskeletal: Extremities: no cyanosis Gait: normal gait Skin: no rashes, warm and dry Neurologic: moves all extremities Psychiatric: A+Ox3, euthymic affect Results & Data ([facility]) Vital Signs (Past 12 Hours) Vital Signs Temp Pulse Pulse Resp BP BP Pulse Ox 12/29/19 11:18 36.7 C 73 18 138/75 96 12/29/19 07:56 72 12/29/19 07:07 36.4 C L 72 18 137/81 96 12/29/19 04:47 84 12/29/19 04:03 36.3 C L 80 18 125/77 97 12/29/19 03:30 74 17 100/76 93 12/29/19 03:00 74 17 103/64 96 12/29/19 02:30 141/110 H 97 12/29/19 02:00 74 80 10 L 132/90 141/110 H 95 12/29/19 01:30 77 21 133/80 95 PG Care Time/CCT Total # of Minutes Spent Total Time Spent with Patient: Total time spent is greater than 50% in coordination of care (as documented) at patient's floor/unit and/or counseling patient: Coding Level of Care Code 67484 Inpt Consult Level 4 Diagnoses AMS (altered mental status) R41.82 Hepatic encephalopathy K72.90 Cirrhosis K74.60
--- NOTE | 2019-12-29 15:46 | Hospitalist Progress Note ---
Date of Service December 29, 2019 Assessment & Plan (1) Hepatic encephalopathy: Admitted with altered consciousness, mental status likely from hepatic encephalopathy Patient has not been taking lactulose as prescribed for past several days, Residual with ammonia of 72 See dose of lactulose in ER, appreciate input from GI, recommends continue lactulose titrate to 23 soft bowel movements daily Patient is started on rifaximin 550 mg twice daily On zinc sulfate daily Patient's mental status gradually improving to baseline, no confusion or disorientation, still very weak /fatigued Acute renal failure on CKD stage III: Admitting elevated 1.3, baseline around 1 Given gentle fluid, hold Lasix and Aldactone for today, repeat BMP Diuretics will be resumed if renal function back to baseline History of chronic A. fib: On Coreg, anticoagulation with Xarelto continued Morbid obesity: BMI 62, counseling provided for weight reduction exercise and food habit change Chronic diastolic heart failure: Volume status difficult to assess secondary to morbid obesity Continue Coreg Lasix and Aldactone kept on hold for acute renal failure CODE STATUS : Full code DVT prophylaxis: On Xarelto Disposition: As at home has caregivers, was independent in ADLs PT OT evaluation requested Admission and Anticipated Discharge Date Admission Date: December 29, 2019 Subjective Patient patient appears to be drowsy, wakes up to voice able to answer questions appropriately Denies of any shortness of breath dizzy spell or palpitation Is been stable Review of Systems Review of Systems: Unobtainable due to reduced consciousness Physical Exam Constitutional: + morbidly obese; no acute distress Eyes: sclerae not anicteric ENMT: external ear and nose normal, oropharynx normal Neck: trachea midline, no thyromegaly Respiratory: Auscultation: + diminished lung sounds; no crackles and no rales Cardiovascular: Rate/Rhythm: regular rate and regular rhythm Extremities: + edema Gastrointestinal (Abdomen): Inspection/Auscultation: + abdomen distended Percussion/Palpation: abdomen soft; abdomen nontender Skin: no jaundice Neurologic: PERRL, EOMI, accommodation nl, no face palsy, no dysarthria Psychiatric: Orientation: oriented x 3 Affect: + flat affect Results & Data Results & Data ([facility]) Vital Signs (Past 12 Hours) Vital Signs Temp Pulse Pulse Pulse Resp BP Pulse Ox 12/29/19 15:42 77 12/29/19 15:10 36.8 C 79 19 112/64 96 12/29/19 11:18 36.7 C 73 18 138/75 96 12/29/19 07:56 72 12/29/19 07:07 36.4 C L 72 18 137/81 96 12/29/19 04:47 84 12/29/19 04:03 36.3 C L 80 18 125/77 97
[2019-12-29] MEDS: OXYCODONE HCL IR 5 MG TAB (IMMEDIATE RELEASE) PO PRN (17:21)
[2019-12-29] MEDS ORDERED: TRAZODONE HCL 50 MG TAB PO SCH (21:00)
[2019-12-29] MEDS ORDERED: SPIRONOLACTONE 25 MG TAB PO SCH (21:00)
[2019-12-29] MEDS ORDERED: MAGNESIUM CHLORIDE 64MG DELAYED REL TAB PO SCH (21:00)
[2019-12-29] MEDS ORDERED: NORTRIPTYLINE HCL 25 MG CAP PO SCH (21:00)
[2019-12-29] MEDS ORDERED: RIVAROXABAN 20 MG TAB PO SCH (21:00)
[2019-12-30] MEDS: INSULIN ASPART 100 UNITS/ML 3 ML PEN SC SCH ×4 (04:17→12:22)
--- NOTE | 2019-12-30 05:01 | Electrocardiogram Report ---
Test Reason : Blood Pressure : / mmHG Vent. Rate : 088 BPM Atrial Rate : 088 BPM P-R Int : 280 ms QRS Dur : 084 ms QT Int : 366 ms P-R-T Axes : 077 068 026 degrees QTc Int : 442 ms Sinus rhythm with 1st degree A-V block Low voltage QRS Septal infarct , age undetermined Abnormal ECG When compared with ECG of 25-OCT-2019 15:56, Septal infarct is now Present Confirmed by Christiano Hay ([id number]) on 12/30/2019 5:00:44 AM Referred By: REFERRED SELF Confirmed By:Christiano Hay
[2019-12-30] MEDS: PANTOprazole 40 MG TAB PO SCH (05:45)
[2019-12-30] MEDS: LEVOTHYROXINE SODIUM 175 MCG TABLET PO SCH (05:45)
[2019-12-30 06:47] LABS: BUN Creatinine Ratio 17.1 (10-20); Calcium 8.8 mg/dl (8.5-10.1); Creatinine Clr Calc Pharmacy 109.5 ml/min; Est GFR (African American) 87.5; Est GFR (Non-African American) 75.5
[2019-12-30] MEDS: carvediloL 12.5 MG TAB PO SCH (08:10)
[2019-12-30] MEDS: FUROSEMIDE 20 MG TAB PO SCH (08:10)
[2019-12-30] MEDS: DULOXETINE HCL 60 MG CAP PO SCH (08:10)
[2019-12-30] MEDS: POTASSIUM CHLORIDE 10 MEQ TABCR PO SCH (08:10)
[2019-12-30] MEDS: FERROUS SULFATE 325 MG TAB PO SCH (08:10)
[2019-12-30] MEDS: LACTULOSE SYRUP 20 GM/30 ML UDC PO SCH ×2 (08:10→12:22)
[2019-12-30] MEDS: RIFAXIMIN 550 MG TABLET PO SCH (08:10)
[2019-12-30] MEDS: FAMOTIDINE 20 MG TAB PO SCH (08:10)
[2019-12-30] MEDS: POT PHOSPHATE MONOBASIC W/ SOD TAB PO SCH (08:11)
[2019-12-30 08:33] LABS: Albumin Level 2.4 gm/dl (3.4-5.0); Bilirubin Direct 0.3 mg/dl (0-0.2); Bilirubin,Total 0.9 mg/dl (0.2-1); Total Protein 5.8 gm/dl (6.4-8.2)
--- NOTE | 2019-12-30 08:58 | Pharmacy Report ---
Pharmacy Glycemic Short Note 2 - Date of Service December 30, 2019 - Glycemic Short BSG Results (Last 24 hours): 12/29/19 12/29/19 12/29/19 11:27 16:35 20:02 Glucose POC Glucose 268 H 116 H 61 L* 12/29/19 12/29/19 12/29/19 20:04 20:24 20:26 Glucose POC Glucose 54 L* 61 L* 72 12/29/19 12/30/19 12/30/19 23:53 04:07 05:52 Glucose 72 POC Glucose 79 78 12/30/19 07:30 Glucose POC Glucose 84 OUTPATIENT ANTIDIABETIC REGIMEN: * Lantus 120 units SQ BID * Novolog 10 units TID With meals * Dulaglutide 1.5mg SQ qweekly * A1c = 8.2 % 12/29/19 Risk Factors for Insulin Resistance: * Diet: Type 2 DM ASSESSMENT: 12/30/19 * Patient has required 112 units of insulin yesterday, 45 units basal, significantly less from home doses. * PM Lantus held for low blood sugar, will change Lantus to be once daily in AM at this time and loosen CF/CR slightly and change goal range to prevent hypoglycemia. 12/29/19 * 54 yo female, PMH O, Type 2 DM, hypothyroid, cirrhosis, AFib on Xarelto, Hx PE & DVTs, hyperlipidemia, COPD, HTN, bipolar depression, presented with AMS. * Will begin patient on basal bolus insulin therapy, splitting dosing to more 50:50 basal:bolus, as patient's home dosing is heavily basal. PLAN FOR INPATIENT GLYCEMIC CONTROL: * Holding outpatient dulaglutide * Basal insulin - CHANGE * Lantus SQ QAM * BSG < 140 = 35 units * BSG 140-180 = 40 units * BSG > 180 = 45 units * Bolus insulin * NovoLog per scale ACHS or Q6hrs while NPO * CHANGE: Goal Range: Low 120 mg/dL - High 150 mg/dL * LOOSEN: Correction Factor: 12 mg/dL/unit * LOOSEN: Nutritional / Prandial insulin per carb ratio of 1 unit per 4 grams CHO consumed PLAN FOR DISCHARGE: * to be determined, patient requiring significantly less insulin as inpatient than home regimen
[2019-12-30] MEDS ORDERED: INSULIN GLARGINE SOLOSTAR 100 UNITS/ML 3 ML PEN SQ SCH ×2 (09:00)
[2019-12-30] MEDS ORDERED: ZINC SULFATE 220 MG CAPSULE PO SCH (09:00)
--- NOTE | 2019-12-30 11:16 | Gastroenterology Progress Note ---
Date of Service December 30, 2019 Assessment & Plan (1) Cirrhosis: (2) Hepatic encephalopathy: (3) AMS (altered mental status): resolving, responding well to lactulose and rifaximin Recs: continue lactulose and rifaximin, titrate lactulose to 2-3 soft bms daily (had 3 yesterday) will need close follow up as an outpatient with her GI Dr. Cantu Admission and Anticipated Discharge Date Admission Date: December 29, 2019 Subjective no events overnight, feels more alert today, less somnolent. On lactulose and rifaximin. Notes some left sided burning abdominal pains but otherwise no issues. Review of Systems Constitutional: no fever and no chills Respiratory: no cough, no dyspnea and no dyspnea on exertion Cardiovascular: no chest pain and no dyspnea Gastrointestinal: as per Subjective / HPI Psychiatric: no depression and no anxiety Physical Exam Constitutional: WD/WN, vitals as above Respiratory: normal respiratory effort Auscultation: lungs clear to auscultation bilaterally (except for wheezes on the right side) and + wheezes Cardiovascular: RRR, no murmur, no edema Gastrointestinal (Abdomen): normal bowel sounds, soft, nontender, no hepatosplenomegaly Musculoskeletal: no lower extremity edema Psychiatric: A+Ox3, euthymic affect Results & Data Results & Data ([facility]) Vital Signs (Past 12 Hours) Vital Signs Temp Pulse Resp BP Pulse Ox 12/30/19 07:14 37.1 C 79 18 143/78 H 92 12/29/19 23:21 36.8 C 71 20 113/70 96 PG Care Time/CCT Total # of Minutes Spent Total Time Spent with Patient: Total time spent is greater than 50% in coordination of care (as documented) at patient's floor/unit and/or counseling patient: Coding Level of Care Code 09617 Subseq Hosp Care Lvl 3 Diagnoses Cirrhosis K74.60 Hepatic encephalopathy K72.90 AMS (altered mental status) R41.82
[2019-12-30] MEDS: OXYCODONE HCL IR 5 MG TAB (IMMEDIATE RELEASE) PO PRN (12:26)
--- NOTE | 2019-12-30 15:35 | Hospitalist Progress Note ---
Date of Service December 30, 2019 Assessment & Plan (1) Hepatic encephalopathy: Interim has completely resolved patient is alert awake oriented x3, mental status back to baseline Admitted with altered consciousness, mental status likely from hepatic encephalopathy Patient has not been taking lactulose as prescribed for past several days, Admission labs shows ammonia of 72 Received dose of lactulose in ER, appreciate input from GI, recommends continue lactulose titrate to 23 soft bowel movements daily Patient has 3 soft bowel movements yesterday Feels like her baseline, Patient understands that she should not discontinue any medications without discussing with her physician Patient is continued on rifaximin 550 mg twice daily Continue on zinc sulfate daily Evaluated by GI earlier Medically stable to be discharged home today Will be followed with patient's primary GI in [facility] in clinic Acute renal failure on CKD stage III: Resolved creatinine back to baseline Resume to Lasix and Aldactone History of chronic A. fib: On Coreg, anticoagulation with Xarelto continued Morbid obesity: BMI 62, counseling provided for weight reduction exercise and food habit change Chronic diastolic heart failure: Volume status difficult to assess secondary to morbid obesity Continue Coreg Lasix and Aldactone resumed CODE STATUS : Full code DVT prophylaxis: On Xarelto Disposition: Medically stable to be discharged home today By CMS guidelines, a determination that the admission or continued stay is not medically necessary has been made by a member of the UR committee and a physician for this hospital stay, therefore a Code 44 will be completed and the Inpatient admission will be changed to outpatient. Admission and Anticipated Discharge Date Admission Date: December 29, 2019 Subjective Patient seen and examined at bedside, awake and alert Conversing appropriately, denies of any fatigue, no weakness, no nausea vomiting or abdominal pain Mental status back to baseline Counseling provided to not to miss any medication-without discussing with physician Patient verbalized understanding Review of Systems Review of Systems: All systems reviewed & are unremarkable except as noted in HPI & below Neurologic: no dizziness, no abnormal speech and no confusion Physical Exam Constitutional: + morbidly obese; no acute distress Eyes: sclerae not anicteric ENMT: external ear and nose normal, oropharynx normal Neck: trachea midline, no thyromegaly Respiratory: Auscultation: + diminished lung sounds; no crackles and no rales Cardiovascular: Rate/Rhythm: regular rate and regular rhythm Extremities: + edema Gastrointestinal (Abdomen): Inspection/Auscultation: + abdomen distended Percussion/Palpation: abdomen soft; abdomen nontender Skin: no jaundice Neurologic: PERRL, EOMI, accommodation nl, no face palsy, no dysarthria Psychiatric: Orientation: oriented x 3 Affect: + flat affect Results & Data Results & Data ([facility]) Vital Signs (Past 12 Hours) Vital Signs Temp Pulse Resp BP Pulse Ox 12/30/19 15:08 36.7 C 73 16 109/61 92 12/30/19 11:05 94 12/30/19 07:14 37.1 C 79 18 143/78 H 92
--- NOTE | 2019-12-30 15:48 | Discharge Summary ---
Date of Service December 30, 2019 Admission HPI Per Admitting Provider DICTATED BY: Izaiah Gage MD DATE OF ADMISSION: 12/29/2019 CHIEF COMPLAINT: Altered mental status. HISTORY OF PRESENT ILLNESS: This is a 54-year-old female with past medical history significant for obstructive sleep apnea, noncompliant with BiPAP, type 2 diabetes, hypothyroidism, diabetic polyneuropathy, cirrhosis, history of paroxysmal atrial fibrillation on Xarelto, history of PE in the past, history of hyperlipidemia, hypothyroidism, COPD, hypertension, morbid obesity, GERD, history of tobacco dependence, history of migraines, history of bipolar depression, history of DVTs. The patient presents with altered mental status. The patient is on lactulose and Xifaxan. The patient recently last Tuesday went to [facility] for pain management clinic. It was a 3-hour drive and she seemed to have not taken lactulose that day. She presents with some altered mental status. She lives with her caregiver. Currently, patient is very drowsy. Have to constantly wake her up. Denies any headache. She says she has some blurred visions. Some cough with whitish phlegm. Denies any fever, chills. No chest pain, no shortness of breath, no nausea. Constantly complains of pain about 7/10 to 8/10 severity and goes back to sleep. She answers the same thing for different questions. Could not get a complete review of systems from the patient, but her hemodynamics are stable. Her ammonia level is 72. She was ordered lactulose in the ER. Principal Diagnosis Hepatic encephalopathy: Resolved Cirrhosis of liver Acute renal failure on CKD stage III resolved Discharge Exam Constitutional + morbidly obese; no acute distress Eyes sclerae not anicteric ENMT external ear and nose normal, oropharynx normal Neck trachea midline, no thyromegaly Respiratory Auscultation: + diminished lung sounds; no crackles and no rales Cardiovascular Rate/Rhythm: regular rate and regular rhythm Extremities: + edema Gastrointestinal (Abdomen) Inspection/Auscultation: + abdomen distended Percussion/Palpation: abdomen soft; abdomen nontender Skin no jaundice Neurologic PERRL, EOMI, accommodation nl, no face palsy, no dysarthria Psychiatric Orientation: oriented x 3 Affect: + flat affect Discharge Data Allergies Allergy/AdvReac Type Severity Reaction Status Date / Time Iodinated Contrast Media Allergy Intermediate hives-PT Verified 12/28/19 23:31 DENIES SEE NOTE adhesive Allergy Mild RED RASH Verified 12/28/19 23:31 CAUSED BY PAPER TAPE vancomycin AdvReac Severe renal Verified 12/28/19 23:31 failure, required dialysis x 3 MONTHS acetaminophen AdvReac Intermediate Liver Verified 12/28/19 23:31 problems. alprazolam AdvReac Intermediate MAKES Verified 12/28/19 23:31 LOOPY,DO AND SAY SILLY THINGS codeine AdvReac Intermediate UPSET Verified 12/28/19 23:31 STOMACH haloperidol AdvReac Intermediate nervous Verified 12/28/19 23:31 and anxious metformin AdvReac Intermediate HANDS FEET Verified 12/28/19 23:31 FACE NUMB methylparaben AdvReac Intermediate FLUID Verified 12/28/19 23:31 RETENTION morphine AdvReac Intermediate SWELLING Verified 12/28/19 23:31 LEGS AND FEET oxymorphone AdvReac Intermediate FLUID Verified 12/28/19 23:31 RETENTION pregabalin AdvReac Intermediate Aphasia/Speech Verified 12/28/19 23:31 impairments gabapentin AdvReac Mild Aphasia/Speech Verified 12/28/19 23:31 impairments Sulfa (Sulfonamide AdvReac Mild GI SYMPTOMS Verified 12/28/19 23:31 Antibiotics) Consultations 12/29/19 01:34 ED Decision to Admit Stat 12/29/19 03:59 Consult Case Management - Discharge Planning Routine 12/29/19 08:00 Consult Gastroenterology Routine Hospital Course (1) Hepatic encephalopathy: Interim has completely resolved patient is alert awake oriented x3, mental status back to baseline Admitted with altered consciousness, mental status likely from hepatic encephalopathy Patient has not been taking lactulose as prescribed for past several days, Admission labs shows ammonia of 72 Received dose of lactulose in ER, appreciate input from GI, recommends continue lactulose titrate to 23 soft bowel movements daily Patient has 3 soft bowel movements yesterday Feels like her baseline, Patient understands that she should not discontinue any medications without discussing with her physician Patient is continued on rifaximin 550 mg twice daily Continue on zinc sulfate daily Evaluated by GI earlier Medically stable to be discharged home today Will be followed with patient's primary GI in [facility] in clinic Acute renal failure on CKD stage III: Resolved creatinine back to baseline Resume to Lasix and Aldactone History of chronic A. fib: On Coreg, anticoagulation with Xarelto continued Morbid obesity: BMI 62, counseling provided for weight reduction exercise and food habit change Chronic diastolic heart failure: Volume status difficult to assess secondary to morbid obesity Continue Coreg Lasix and Aldactone resumed CODE STATUS : Full code DVT prophylaxis: On Xarelto Disposition: Medically stable to be discharged home today By CMS guidelines, a determination that the admission or continued stay is not medically necessary has been made by a member of the UR committee and a physician for this hospital stay, therefore a Code 44 will be completed and the Inpatient admission will be changed to outpatient. Total Time Total Time Spent Total Time Spent (In Minutes): Approximately 35 minutes Total Time Includes: Examination of the Patient, Discharge Planning, Medication Reconciliation and Communication With Other Providers Discharge Plan Discharge Items Patient Disposition: Home - Home Health Services Reason For Visit: AMS Discharge Diagnosis: Hepatic encephalopathy-resolved Cirrhosis Activity: Resume your previous activity Non-emergency contact: Primary Care Provider Call non-emergency contact if: you have any medication questions Follow-up/Referrals: Eloy Cantu [Physician] - Dewey Mcfadden DO [Primary Care Provider] - Diet: Heart Healthy Addtl Attending Provider Instructions: Is very important to take medication as instructed, do not stop taking any of the medication without discussing with your physician Pending Studies at Discharge: No Stand-Alone Forms: My [employer], Smoking Cessation Medications and DC Order Prescriptions: Continued spironolactone [Aldactone] 25 mg tablet 25 mg PO HS RF: 0 Basaglar KwikPen U-100 Insulin 100 unit/mL (3 mL) insulin pen 120 unit SUBCUT BID RF: 0 baclofen 10 mg tablet 10 mg PO BID RF: 0 pantoprazole 40 mg tablet,delayed release (DR/EC) 40 mg PO DAILYBB RF: 0 ferrous sulfate 325 mg (65 mg iron) tablet 325 mg PO QAM RF: 0 albuterol sulfate [Ventolin HFA] 90 mcg/actuation HFA aerosol inhaler 2 puff inhalation Q4H PRN (Reason: Shortness Of Breath) RF: 0 trazodone 50 mg tablet 50 mg PO HS RF: 0 benzonatate 200 mg capsule 200 mg PO TID PRN (Reason: Cough) RF: 0 albuterol sulfate 2.5 mg /3 mL (0.083 %) solution for nebulization 2.5 mg inhalation Q4 PRN (Reason: Shortness Of Breath) RF: 0 Virt-Phos 250 Neutral 250 mg tablet 1 tab PO QAM RF: 0 levothyroxine 175 mcg tablet 175 mcg PO DAILY RF: 0 lidocaine 3.5 % adhesive patch,medicated 1 patch topical BID PRN (Reason: neck pain) Qty: 15 RF: 0 potassium chloride 10 mEq capsule, extended release 10 meq PO BID RF: 0 prochlorperazine maleate [Compazine] 5 mg tablet 5 mg PO TID PRN (Reason: Nausea) RF: 0 insulin aspart U-100 [Novolog Flexpen U-100 Insulin] 100 unit/mL (3 mL) insulin pen 10 unit SUBCUT TIDM RF: 0 duloxetine [Cymbalta] 60 mg capsule,delayed release(DR/EC) 60 mg PO BID RF: 0 Xarelto 20 mg tablet 20 mg PO PM RF: 0 furosemide [Lasix] 20 mg Tablet 60 mg PO QAM RF: 0 carvedilol 12.5 mg Tablet 12.5 mg PO BID RF: 0 nortriptyline [Pamelor] 25 mg Capsule 25 mg PO HS RF: 0 Trulicity 1.5 mg/0.5 mL pen injector 1.5 mg SUBCUT WK RF: 0 Xifaxan 550 mg Tablet 550 mg PO BID Qty: 60 RF: 0 famotidine 20 mg tablet 20 mg PO BID RF: 0 oxycodone 10 mg Tablet 10 mg PO QID PRN (Reason: Pain) RF: 0 magnesium chloride 64 mg tablet,delayed release (DR/EC) 64 mg PO PM RF: 0 (DME) Oxygen Home Liters Per Minute See Rx Instructions .ROUTE .MEDSUPPLY Qty: 1 RF: 0 lactulose [Constulose] 10 gram/15 mL solution 30 ml PO QID RF: 0 Discharge Orders: Discharge Order (Routine); Ordered 12/30/19 Ordered By: Dali Luo/Other Patient Handouts: Managing Type 2 Diabetes Admission Data Admit Date/Time: 12/29/19 02:28 Attending Provider: Dali Boss Admit Provider: Izaiah Gage Primary Care Provider: Dewey Mcfadden Other Providers: Izaiah Gage ; See Ramirez Jessica R. ; Vicky Patterson ; Kait Zavaleta ; Carlos Jones ; Jamie Guadalupe ; Eloy Cantu ; Yanna Garduno ; Casey Arcos ; Oscar Cleveland ; Janett Rizvi ; Skyla Mathew ; Rosa Rosado ; Sofia Saleh ; Hilton Morgan
--- NOTE | 2019-12-30 15:56 | Communication Note ---
Date of Service: December 30, 2019 Code 44 advancement: She is a 54 years old female with significant past medical history of cirrhosis, RIMA, type 2 diabetes, hypothyroidism, PAF on Xarelto and other medical condition as mentioned in history and physical was admitted on fourth of this month with hepatic and colopathy. Apparently she was not taking her lactulose the way she was supposed to. Her initial ammonia was mildly elevated at 74. She received lactulose and has had good bowel movement so far. She has been evaluated by aeronautical drafter and ongoing evaluation by the hospitalist. She seems to be at her baseline and will be discharged home today. The chart , labs and imaging studies reviewed. By CMS guidelines, a determination that the admission or continued stay is not medically necessary has been made by a member of the UR committee and a physician for this hospital stay, therefore a Code 44 will be completed and the Inpatient admission will be changed to outpatient. Dr Valeria Gomes (UR receiving team member.)
== END 2019-12-30 16:10 | disposition home health service (06) | DRG 442 ==
LOC: ED 23:20 → 2N 12-29 02:28

== ENCOUNTER 2020-07-20 08:47 | Inpatient (IN) ==
[2020-07-20] MEDS ORDERED: oxyCODONE HCL IR 5 MG TAB (IMMEDIATE RELEASE) PO STA (09:08)
[2020-07-20] MEDS ORDERED: ALBUT/IPRATROP 3MG/0.5MG NEB 3 ML VIAL INH STA (09:08)
--- NOTE | 2020-07-20 09:14 | Emergency Department Note ---
Impression & Plan Respiratory failure with hypoxia, Pulmonary edema ED Provider Note CHIEF COMPLAINT: Shortness of breath, wheezing HISTORY OF PRESENTING ILLNESS: This is a 54-year-old female who presents to the emergency department via EMS with complaint of shortness of breath and wheezing and states her oxygen was low this morning. The patient states that she felt okay when she first got up and started walking around and then started to feel short of breath. She notes that she checked her pulse ox and it was 85%. She felt that she was wheezing so she used her nebulizer treatment she states that this helped significantly and brought her oxygen up to 92%. She states that she uses 3 L of oxygen at night for her sleep apnea, but does not use oxygen during the day. She does note that she was admitted to the hospital recently for pneumonia. She has a chronic cough and has been coughing up clear and sometimes brown mucus, but denies any hemoptysis. She denies any fevers or chills. She has a history of DVT and PE and is on Xarelto, she denies missing any doses. She denies any chest pain or chest tightness. She does complain of pain in her low back which is chronic and she takes oxycodone for this, she is requesting her oxycodone which she did not take at home. She states her last dose of this was yesterday. She has not noticed any increased swelling in her legs or changes in her weight, but does admit that she does not monitor her weight closely. REVIEW OF SYSTEMS: A complete 10 point review of systems was reviewed with the patient with pertinent positives and negatives as per history of present illness. All else were negative. PAST MEDICAL HISTORY: Atrial fibrillation, chronic diastolic CHF, type 2 diabetes, morbid obesity, liver cirrhosis, obstructive sleep apnea, asthma, chronic low back pain SOCIAL HISTORY: Lives at home, she is a current everyday smoker tobacco abuse, ALLERGIES: Numerous, reviewed in chart and with the patient PHYSICAL EXAM: CONSTITUTIONAL: Pleasant and cooperative. Nontoxic-appearing and in no acute distress, but appears slightly short of breath. HEENT: Normocephalic, atraumatic. NECK: Supple, full active range of motion without discomfort. RESPIRATORY: Diminished in bases bilaterally with expiratory wheezing throughout and bibasilar crackles, no rhonchi or stridor. No tachypnea or accessory muscle use. Equal expansion bilaterally. CARDIOVASCULAR: Regular rate and rhythm with no murmurs, rubs or gallops. Normal peripheral perfusion. No pitting edema. GASTROINTESTINAL: Soft, nontender, nondistended. No palpable masses or HSM. B owel sounds present in all quadrants. MUSCULOSKELETAL: Full range of motion of all joints without discomfort. INTEGUMENTARY: No rash or other significant dermatologic conditions noted. NEUROLOGIC: Alert and oriented X 4 with normal affect. Normal strength and sensation in all 4 extremities. Normal speech. Normal gait observed. ED COURSE AND MEDICAL DECISION MAKING: CC: Patient presenting with complaint of shortness of breath and wheezing DIFFERENTIAL DIAGNOSIS: Includes, but not limited to asthma/COPD exacerbation, CHF exacerbation, viral URI, bronchitis, pneumonia, COVID-19, influenza, pneumothorax, pulmonary edema, pleural effusion, acute coronary syndrome, PE, among others. INTERPRETATION OF LABS: No leukocytosis, mild anemia consistent with baseline, mild thrombocytopenia, hyperglycemia, no other significant electrolyte abnormalities, normal renal function, elevated alk phos, otherwise normal liver enzymes. Troponin negative. Pro-BNP is not significantly elevated. UA n egative. COVID-19/influenza/RSV is negative. IMAGING: XR chest 1V portable HISTORY: 54 years-old Female Dyspnea acute shortness of breath COMPARISON: Chest radiograph 03/15/2020 TECHNIQUE: Portable AP view of the chest FINDINGS: Cardiac silhouette is enlarged. Calcified plaque of the thoracic aorta. No pneumothorax. Pulmonary vascular congestion with interstitial coarsening. Blunting of the costophrenic angles without large pleural effusion. Mild bibasilar densities favoring atelectasis. Degenerative changes of the shoulders and spine. IMPRESSION: 1. Cardiomegaly with pulmonary vascular congestion and interstitial opacities suggestive of pulmonary edema. 2. Possible trace pleural effusions. EKG: Shows sinus rhythm with a rate of 84 bpm, first-degree AV block, low voltage QRS, no ST elevation or depression, no ectopy, no significant change when compared to previous EKG from 03/15/2020 by my interpretation. MEDICATION RECONCILIATION: I attest that I have personally reviewed the patient's current medication list. INITIAL VITAL SIGNS REVIEW: I reviewed the patient's initial vital signs and interpret them as follows: T: Afebrile; BP: Hypertensive; HR: Within normal limits; RR: Mildly tachypneic; Pulse Ox: Hypoxic on room air. MDM SUMMARY: Patient was evaluated at bedside, history and physical exam performed. Patient is alert and oriented, in no acute distress, but appears to have slightly labored breathing and appears uncomfortable, resting in stretcher. She was noted to be hypoxic on arrival to the ED with a sat of 88% on room air, she was placed on oxygen mask with an appropriate response. Lungs are diminished throughout with expiratory wheezes and crackles. She is afebrile. She reports a history of a PE several years ago, but has been on Xarelto for this and has not missed any doses. She denies any leg pain or swelling. Cardiac monitoring: An order was placed for continuous cardiac monitoring. The monitor shows a rate of 84 bpm with normal sinus rhythm. EKG reviewed at bedside, no acute ischemic changes. Patient did also complain of her chronic low back pain and requested pain medication, I did order her home dose of oxycodone 15 mg. Orders were placed for labs including troponin and pro-BNP, DuoNeb treatment, chest x-ray to evaluate for shortness of. Patient discussed with Dr. Corea, who also evaluated the patient and agrees with my assessment, plan, and disposition. Labs and imaging reviewed as above, labs appear consistent with baseline. Troponin undetectable. Covid negative. Chest x-ray appears consistent with increased pulmonary vascular congestion and pulmonary edema concerning for exacerbation of CHF, which I suspect is the cause of her increased shortness of breath and hypoxia. The patient was given 40 mg IV Lasix, which did seem to improve her symptoms. I spoke on the phone with the hospitalist team, they agreed to evaluate the patient for admission. The patient was updated on the plan for admission, she verbalized understanding and was agreeable to this plan. The patient was stable at time of admission. The chart was completed utilizing [employer] Speech voice recognition software. Grammatical errors, random word insertions, pronoun errors, and incomplete sentences are an occasional consequence of this system due to software limitations, ambient noise, and hardware issues. Any formal questions or co ncerns about the content, text, or information contained within the body of this dictation should be directly addressed to the nurse practitioner for clarification. Past Med/Surg History Medical History (Updated 07/20/20 @ 17:10 by GILDA Recinos) Abdominal wall cellulitis Acute hepatic encephalopathy Bowel obstruction Cauda equina compression Cellulitis and abscess of trunk (Unknown) Chronic low back pain COPD, group D, by GOLD 2017 classification Deep vein blood clot of left lower extremity RIGHT AND LEFT LEG AND THEN MOVED LUNG - 2002 Diabetes Diabetic neuropathy (01/04/11) Fracture of fourth metatarsal bone of left foot Gastritis Hyperammonemia Hypokalemia Hypomagnesemia Incarcerated ventral hernia Kidney stone HX OF AND HAD LITHOTRIPSY RIMA (obstructive sleep apnea) HX OF AND NO CURRENT PROBLEM Paroxysmal A-fib 2013 on Xarelto Pyelonephritis Rectal bleeding Septic shock Severe sepsis Splenomegaly, not elsewhere classified Supratherapeutic INR UTI (urinary tract infection) Surgical History History of appendectomy History of arthroplasty of right knee Hx of lithotripsy Hx of ventral hernia repair S/P cholecystectomy S/P sinus surgery S/P MARLEE (total abdominal hysterectomy) Family History Father Cancer Liver Brother Kidney disease Renal failure Cirrhosis Brother Cirrhosis Other Family history non-contributory Social History Smoking Status: Current every day smoker Tobacco Type: Cigarettes Cigarettes Per Day: 1/2 PPD; Second Hand Exposure: Yes; Hx Alcohol Use: No Hx Substance Use: No Preferred Language: Telugu Communication Ability: Effective Head Librarian Required: No Beliefs That Will Affect Care: None marital status: Current Living Situation: Other Current Living Situation Comment: friend/caregiver herbert vaughan current occupational status: disabled Feels Safe at Home: Yes Safety Concerns: Feels Safe At This Time Assistive Devices: Glasses and Oxygen - Continuous Allergies Allergies Allergy/AdvReac Type Severity Reaction Status Date / Time Iodinated Contrast Media Allergy Intermediate hives-PT Verified 07/20/20 09:44 DENIES SEE NOTE adhesive Allergy Mild RED RASH Verified 07/20/20 09:44 CAUSED BY PAPER TAPE vancomycin AdvReac Severe renal Verified 07/20/20 09:44 failure, required dialysis x 3 MONTHS acetaminophen AdvReac Intermediate Liver Verified 07/20/20 09:44 problems. alprazolam AdvReac Intermediate MAKES Verified 07/20/20 09:44 LOOPY,DO AND SAY SILLY THINGS codeine AdvReac Intermediate UPSET Verified 07/20/20 09:44 STOMACH haloperidol AdvReac Intermediate nervous Verified 07/20/20 09:44 and anxious metformin AdvReac Intermediate HANDS FEET Verified 07/20/20 09:44 FACE NUMB methylparaben AdvReac Intermediate FLUID Verified 07/20/20 09:44 RETENTION morphine AdvReac Intermediate SWELLING Verified 07/20/20 09:44 LEGS AND FEET oxymorphone AdvReac Intermediate FLUID Verified 07/20/20 09:44 RETENTION pregabalin AdvReac Intermediate Aphasia/Speech Verified 07/20/20 09:44 impairments gabapentin AdvReac Mild Aphasia/Speech Verified 07/20/20 09:44 impairments Sulfa (Sulfonamide AdvReac Mild GI SYMPTOMS Verified 07/20/20 09:44 Antibiotics) Home Meds Home Medications Medication Instructions Recorded Confirmed Xarelto 20 mg PO PM 03/12/19 07/20/20 duloxetine [Cymbalta] 60 mg PO BID 03/12/19 07/20/20 furosemide [Lasix] 20 - 60 mg PO QAM PRN 03/12/19 07/20/20 insulin aspart U-100 [Novolog 15 unit SUBCUT TIDM 03/12/19 07/20/20 Flexpen U-100 Insulin] potassium chloride 10 meq PO BID 03/12/19 07/20/20 prochlorperazine maleate 5 mg PO TID PRN 03/12/19 07/20/20 [Compazine] carvedilol 12.5 mg PO BID 03/21/19 07/20/20 nortriptyline [Pamelor] 25 mg PO HS 03/21/19 07/20/20 spironolactone [Aldactone] 25 mg PO HS 07/05/19 07/20/20 Trulicity 1.5 mg SUBCUT WK 07/13/19 07/20/20 Basaglar KwikPen U-100 Insulin 120 unit SUBCUT BID 08/01/19 07/20/20 albuterol sulfate [Ventolin HFA] 2 puff INHALATION Q4H PRN 08/01/19 07/20/20 ferrous sulfate 325 mg PO QAM 08/01/19 07/20/20 pantoprazole 40 mg PO DAILYBB 08/01/19 07/20/20 trazodone 50 mg PO HS 08/29/19 07/20/20 famotidine 20 mg PO BID 09/17/19 07/20/20 albuterol sulfate 2.5 mg INHALATION Q4 PRN 10/04/19 07/20/20 magnesium chloride 64 mg PO PM 10/05/19 07/20/20 lactulose [Constulose] 30 ml PO QID PRN 10/11/19 07/20/20 levothyroxine 175 mcg PO DAILY 11/20/19 07/20/20 oxycodone 15 mg PO QID PRN 02/23/20 07/20/20 buprenorphine HCl [Belbuca] 150 mcg BUCCAL BID 07/20/20 07/20/20 Previous Rx's Medication Instructions Recorded Xifaxan 550 mg PO BID #60 tab 08/15/19 Results & Data (ED) Vital Signs Vital Signs - 24 hr 07/20/20 08:55 07/20/20 09:01 07/20/20 09:34 Temperature 36.6 C Temperature Source Oral Pulse Rate 87 Pulse Rate [Foot] 79 Pulse Rate from SpO2 Sensor Pulse Rhythm Regular Pulse Strength Normal Respiratory Rate 24 20 Respiratory Effort / Characteristics Labored Spontaneous Respiratory Depth Normal Respiratory Pattern Regular Blood Pressure 157/79 H Blood Pressure Mean 105 Blood Pressure Position Sitting Pulse Oximetry 88 L 100 Oxygen Delivery Method Room Air Oxymask Oxymask Oxygen Flow Rate 5 5 Sepsis Recent Fever Within 48 Hours No Sepsis New/Unexplained Change in Mental Status No Sepsis Action Taken by Nursing No Action Required 07/20/20 09:40 07/20/20 09:41 07/20/20 10:13 Temperature Temperature Source Pulse Rate 77 81 81 Pulse Rate [Foot] Pulse Rate from SpO2 Sensor 78 79 81 Pulse Rhythm Pulse Strength Respiratory Rate 33 H 18 24 Respiratory Effort / Characteristics Respiratory Depth Respiratory Pattern Blood Pressure 174/148 H 174/148 H 119/77 Blood Pressure Mean 156 156 91 Blood Pressure Position Pulse Oximetry 97 100 99 Oxygen Delivery Method Oxygen Flow Rate Sepsis Recent Fever Within 48 Hours Sepsis New/Unexplained Change in Mental Status Sepsis Action Taken by Nursing 07/20/20 11:00 Temperature Temperature Source Pulse Rate Pulse Rate [Foot] Pulse Rate from SpO2 Sensor Pulse Rhythm Pulse Strength Respiratory Rate Respiratory Effort / Characteristics Respiratory Depth Respiratory Pattern Blood Pressure 166/95 H Blood Pressure Mean 118 Blood Pressure Position Pulse Oximetry Oxygen Delivery Method Oxygen Flow Rate Sepsis Recent Fever Within 48 Hours Sepsis New/Unexplained Change in Mental Status Sepsis Action Taken by Nursing Laboratory Data Result diagrams: 07/20/20 09:20 07/20/20 09:20 Lab Results 07/20/20 07/20/20 07/20/20 Range/Units 09:20 09:20 09:20 WBC 8.49 (4.8-10.8) K/uL RBC 3.36 L (4.2-5.4) M/uL Hgb 11.9 L (12.0-16.0) g/dL Hct 34.7 L (37-47) % MCV 103.3 H (80-100) fL MCH 35.4 H (25-34) pg MCHC 34.3 (32-36) g/dL RDW Std Deviation 59.9 H (36.4-46.3) fL RDW Coeff of Mari 16.0 H (11.5-14.5) % Plt Count 107 L (130-400) K/uL MPV 9.2 (7.4-10.4) fL Immature Gran % (Auto) 0.2 % Neut % (Auto) 70.4 % Lymph % (Auto) 16.8 % Granite % (Auto) 10.4 % Eos % (Auto) 2.0 % Baso % (Auto) 0.2 % Neut # (Auto) 5.97 (1.4-6.5) K/uL Lymph # (Auto) 1.43 (1.2-3.4) K/uL Granite # (Auto) 0.88 H (0.11-0.59) K/uL Eos # (Auto) 0.17 (0-0.5) K/uL Baso # (Auto) 0.02 (0-0.2) K/uL Immature Gran # (Auto) 0.02 (0.00-0.02) K/uL PT 13.9 H (9.0-12.0) Seconds INR 1.4 H (0.9-1.1) Sodium 137 (136-145) mmol/L Potassium 3.9 (3.5-5.1) mmol/L Chloride 107 (98-107) mmol/L Carbon Dioxide 27 (21-32) mmol/L Anion Gap 3.0 (3-11) BUN 12 (7-18) mg/dl Creatinine 0.88 (0.6-1.2) mg/dl Est Cr Clr Drug Dosing 107.4 ml/min Est GFR ( Amer) 85.1 Est GFR (Non-Af Amer) 73.4 BUN/Creatinine Ratio 13.6 (10-20) Glucose 239 H (70-99) mg/dl Calcium 8.4 L (8.5-10.1) mg/dl Total Bilirubin 1.0 (0.2-1) mg/dl AST 31 (15-37) U/L ALT 17 (12-78) U/L Alkaline Phosphatase 199 H (45-117) U/L Troponin I < 0.015 (0-0.045) ng/ml NT-Pro-B Natriuret Pep 285 (0-900) pg/ml Total Protein 5.6 L (6.4-8.2) gm/dl Albumin 2.0 L (3.4-5.0) gm/dl Globulin 3.6 (2.5-4.0) gm/dl Albumin/Globulin Ratio 0.6 L (0.9-2) Administered Medications Miscellaneous (Belbuca: Order Awaiting Action) 1 ea N/A QS PAUL Stop: 08/19/20 15:59 Last Admin: 07/20/20 15:31 Dose: Not Given Documented by: [id number] Discontinued Medications Albuterol (Albut/Ipratrop 3mg/0.5mg Neb 3 Ml Vial) 3 ml INH NOW STA Stop: 07/20/20 09:09 Last Admin: 07/20/20 09:30 Dose: 3 ml Documented by: [id number] Furosemide (Furosemide 40 Mg/4 Ml Vial) 40 mg IV NOW STA Stop: 07/20/20 10:02 Last Admin: 07/20/20 10:08 Dose: 40 mg Documented by: [id number] Insulin Glargine (Insulin Glargine Solostar 100 Units/Ml 3 Ml Pen) 40 units SC NOW ONE Stop: 07/20/20 14:01 Last Admin: 07/20/20 15:30 Dose: 40 units Documented by: [id number] Cosigned by: [id number] Oxycodone HCl (Oxycodone Hcl Ir 5 Mg Tab (Immediate Release)) 15 mg PO NOW STA Stop: 07/20/20 09:09 Last Admin: 07/20/20 09:13 Dose: 15 mg Documented by: [id number] Oxycodone HCl (Oxycodone Hcl Ir 5 Mg Tab (Immediate Release)) 15 mg PO QID PRN PRN Reason: Pain Stop: 08/03/20 13:29 Last Admin: 07/20/20 14:07 Dose: 15 mg Documented by: [id number] Discharge Plan Visit Data Chief Complaint: Shortness of Breath/Dyspnea ED Provider: Branden Corea ED Midlevel Provider: Sharon Cruz Discharge Problem: Respiratory failure with hypoxia, Pulmonary edema Patient Disposition: Admitted As Inpatient Discharge Instructions Interventions: ED Discharge Assessment Last Done: 07/20/20 13:08 Discharge Problem: Respiratory failure with hypoxia Qualifiers: Chronicity: acute Qualified Code(s): J96.01 - Acute respiratory failure with hypoxia Pulmonary edema Qualifiers: Chronicity: acute Qualified Code(s): J81.0 - Acute pulmonary edema
[2020-07-20 09:30] LABS: Basophils # (auto) 0.02 K/uL (0-0.2); Basophils % (auto) 0.2 %; Eosinophils # (auto) 0.17 K/uL (0-0.5); Hematocrit (blood only) 34.7 % (37-47); Hemoglobin 11.9 g/dL (12.0-16.0); Immature Granulocytes # (auto) 0.02 K/uL (0.00-0.02); Immature Granulocytes % (auto) 0.2 %; Lymphocytes # (auto) 1.43 K/uL (1.2-3.4); Lymphocytes % (auto) 16.8 %; Mean Corpuscular Hemoglobin 35.4 pg (25-34); Mean Corpuscular Hgb Conc 34.3 g/dL (32-36); Mean Corpuscular Volume 103.3 fL (80-100); Mean Platelet Volume 9.2 fL (7.4-10.4); Monocytes # (auto) 0.88 K/uL (0.11-0.59); Monocytes % (auto) 10.4 %; Neutrophils # (auto) 5.97 K/uL (1.4-6.5); Neutrophils % (auto) 70.4 %; Platelet Count 107 K/uL (130-400); RDW Standard Deviation 59.9 fL (36.4-46.3); Red Blood Count 3.36 M/uL (4.2-5.4); White Blood Count 8.49 K/uL (4.8-10.8)
[2020-07-20 09:47] LABS: Alanine Aminotransferase 17 U/L (12-78); Aspartate Aminotransferase 31 U/L (15-37); BUN Creatinine Ratio 13.6 (10-20); Blood Urea Nitrogen 12 mg/dl (7-18); Calcium 8.4 mg/dl (8.5-10.1); Carbon Dioxide 27 mmol/L (21-32); Chloride 107 mmol/L (98-107); Creatinine Clr Calc Pharmacy 107.4 ml/min; Est GFR (African American) 85.1; Est GFR (Non-African American) 73.4; Glucose 239 mg/dl (70-99); Potassium 3.9 mmol/L (3.5-5.1); Sodium 137 mmol/L (136-145)
[2020-07-20 09:52] LABS: Albumin Globulin Ratio 0.6 (0.9-2); Alkaline Phosphatase 199 U/L (45-117); Globulin 3.6 gm/dl (2.5-4.0); NT Pro B Type Natriuretic Pept 285 pg/ml (0-900); Total Protein 5.6 gm/dl (6.4-8.2); Troponin I < 0.015 ng/ml (0-0.045)
--- NOTE | 2020-07-20 09:56 | XRay Report ---
XR chest 1V portable HISTORY: 54 years-old Female Dyspnea acute shortness of breath COMPARISON: Chest radiograph 03/15/2020 TECHNIQUE: Portable AP view of the chest FINDINGS: Cardiac silhouette is enlarged. Calcified plaque of the thoracic aorta. No pneumothorax. Pulmonary va scular congestion with interstitial coarsening. Blunting of the costophrenic angles without large ple ural effusion. Mild bibasilar densities favoring atelectasis. Degenerative changes of the shoulders a nd spine. IMPRESSION: 1. Cardiomegaly with pulmonary vascular congestion and interstitial opacities suggestive of pulmonary edema. 2. Possible trace pleural effusions. ACT 112: Negative or not required by law. The above report was generated using voice recognition software. It may contain grammatical, syntax o r spelling errors. Electronically signed by: Rancho Rees M.D. 07/20/2020 9:55 AM
[2020-07-20] MEDS ORDERED: FUROSEMIDE 40 MG/4 ML VIAL IV STA (10:01)
--- NOTE | 2020-07-20 11:14 | Emergency Department Note ---
ED Visit Note Staff note: I have seen and examined this patient. I have discussed this case with my PA and generally agree with the ED note and findings. .
[2020-07-20 11:48] LABS: Appearance Urine Clear (Clear); Bilirubin Urine Negative (Negative); Blood Urine Negative (Negative); Color Urine Yellow; Glucose Urine UA Negative (Negative); Ketones Urine Negative (Negative); Leukocyte Esterase Urine Negative (Negative); Nitrite Urine Negative (Negative); Protein Urine Negative (Negative); Specific Gravity Urine 1.008 (1.000-1.030); Urobilinogen Urine Negative (Negative); pH Urine 6.5 (4.5-7.5)
--- NOTE | 2020-07-20 11:53 | History & Physical Report ---
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 Her SaO2 upon presentation was 88% on nasal cannula. Now saturating in the 90s on 5L/min via oxymask. Her desaturation may be multifactorial, but patient appears volume overloaded on exam and on CXR today. Fluid overload could be secondary to cirrhosis. She has had complications in the past including hepatic encephalopathy. Admit to PCU for further management and monitoring. She was given 1 dose of IV Lasix 40 mg in the ED. Continue IV Lasix 40 mg BID. Recommended Graham catheter placement for strict I&Os. Patient agreeable. US Abdomen to R/O ascites LFTs stable, check INR today Will update Echo to check for signs of heart failure. Last Dobutamine stress Echo 2018 outpatient showed normal EF. May consider CTA Chest to R/O PE, but seems less likely with chronic anti coagulation on Xarelto. Recheck CMP, CBC in AM Continue O2 supplementation to maintain SaO2 >92%. Incentive spirometry Duoneb PRN SOB/wheezing Continue home Xifaxan and PRN Lactulose. Consider repeat CXR tomorrow (5) RIMA (obstructive sleep apnea): Continue O2 overnight as above. Patient typically uses nasal cannula at bedtime. 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 Consult pharmacy while inpatient to assist in dosing. Repeat A1C, Lipids in AM (8) Paroxysmal A-fib: Continue to monitor on telemetry. Patient is chronically on Xarelto. Continue while inpatient. (9) Compression fx, lumbar spine: (10) Drug-seeking behavior: (11) Medically noncompliant: Patient had acute L spine compression fracture in early May. She has chronic pain control problems, and she is on both buprenorphine and Oxycodone as an outpatient. PDMP was utilized to confirm the doses that patient stated. Continue her home medications for pain management while inpatient. PT/OT (12) Hypothyroid: Continue levothyroxine (13) History of blood clots: (14) DVT prophylaxis: Continue Xarelto (15) COPD exacerbation: (16) Morbid obesity due to excess calories: History of Present Illness Chief Complaint: Hypoxia, SOB Primary Care Provider: Dewey Mcfadden DO Patient is a morbidly obese, noncompliant 54 yo female with PMHx including uncontrolled DM Type 2 with mcfp insulin use, dyslipidemia, hypothyroidism, COPD, RIMA noncompliant with CPAP, HTN, GERD, Cirrhosis/MEEK, Bipolar I, and chronic drug dependence/narcotic use who presented to the ED via EMS for complaint of increased SOB and hypoxia. The patient woke up this morning and felt very SOB. When she checked her home O2, her sat was 85%. She typically wears 3L/min to bed but not during the day. She put her oxygen back on but was unable to get her sats up at home. She then called an ambulance. She has a chronic productive "smoker's" cough which has been unchanged. She does not some mid-chest tightness when coughing at times but no other chest pain. She is on Xarelto chronically for hx of DVT. She states that she 'broke her back' about 2 weeks ago. Per record review, it looks like she had an L spine compression fracture on 05/31/20 at which time she was in the ED here at [facility]. She does follow with pain management in [place]. She has recently been on Oxycodone 15 mg Q6h PRN at home along with Belbuca (buprenorphine) 150 mcg film BID. It was supposed to be increased to 600 mcg, but she hasn't started that dose yet. She states that last oxycodone she took was yesterday afternoon. She has not had any other significant cold symptoms, fever, abdominal pain, N/V/D/C. Appetite has been good. She has noted hematuria on and off since her back injury. She does typically take Lasix 20mg- 60 mg daily. She did not take her medication this morning. Since presentation, patient was noted to initially be hypoxic down to 88% on nasal cannula. She was placed on Oxymask at 5L/min and has been saturating well. Lab evaluation showed very slight anemia with Hgb 11.9. Renal function and electrolytes within norm/stable. Glucose elevated. She is on chronic insulin. Alk Phos was 199- chronically elevated. Other LFTs within norm/stable. Troponin negative. Serum protein levels low. UA was clear, no blood. CXR showed cardiomegaly with pulmonary vascular congestion with possible trace pleural effusions B/L. These images were reviewed by me today as well. Allergies Allergy/AdvReac Type Severity Reaction Status Date / Time Iodinated Contrast Media Allergy Intermediate hives-PT Verified 07/20/20 09:44 DENIES SEE NOTE adhesive Allergy Mild RED RASH Verified 07/20/20 09:44 CAUSED BY PAPER TAPE vancomycin AdvReac Severe renal Verified 07/20/20 09:44 failure, required dialysis x 3 MONTHS acetaminophen AdvReac Intermediate Liver Verified 07/20/20 09:44 problems. alprazolam AdvReac Intermediate MAKES Verified 07/20/20 09:44 LOOPY,DO AND SAY SILLY THINGS codeine AdvReac Intermediate UPSET Verified 07/20/20 09:44 STOMACH haloperidol AdvReac Intermediate nervous Verified 07/20/20 09:44 and anxious metformin AdvReac Intermediate HANDS FEET Verified 07/20/20 09:44 FACE NUMB methylparaben AdvReac Intermediate FLUID Verified 07/20/20 09:44 RETENTION morphine AdvReac Intermediate SWELLING Verified 07/20/20 09:44 LEGS AND FEET oxymorphone AdvReac Intermediate FLUID Verified 07/20/20 09:44 RETENTION pregabalin AdvReac Intermediate Aphasia/Speech Verified 07/20/20 09:44 impairments gabapentin AdvReac Mild Aphasia/Speech Verified 07/20/20 09:44 impairments Sulfa (Sulfonamide AdvReac Mild GI SYMPTOMS Verified 07/20/20 09:44 Antibiotics) Home Medications Medication Instructions Recorded Confirmed Type Xarelto 20 mg PO PM 03/12/19 07/20/20 History duloxetine [Cymbalta] 60 mg PO BID 03/12/19 07/20/20 History furosemide [Lasix] 20 - 60 mg PO QAM PRN 03/12/19 07/20/20 History insulin aspart U-100 [Novolog 15 unit SUBCUT TIDM 03/12/19 07/20/20 History Flexpen U-100 Insulin] potassium chloride 10 meq PO BID 03/12/19 07/20/20 History prochlorperazine maleate 5 mg PO TID PRN 03/12/19 07/20/20 History [Compazine] carvedilol 12.5 mg PO BID 03/21/19 07/20/20 History nortriptyline [Pamelor] 25 mg PO HS 03/21/19 07/20/20 History spironolactone [Aldactone] 25 mg PO HS 07/05/19 07/20/20 History Trulicity 1.5 mg SUBCUT WK 07/13/19 07/20/20 History Basaglar JessiPen U-100 Insulin 120 unit SUBCUT BID 08/01/19 07/20/20 History albuterol sulfate [Ventolin HFA] 2 puff INHALATION Q4H PRN 08/01/19 07/20/20 History ferrous sulfate 325 mg PO QAM 08/01/19 07/20/20 History pantoprazole 40 mg PO DAILYBB 08/01/19 07/20/20 History Xifaxan 550 mg PO BID #60 tab 08/15/19 07/20/20 Rx trazodone 50 mg PO HS 08/29/19 07/20/20 History famotidine 20 mg PO BID 09/17/19 07/20/20 History albuterol sulfate 2.5 mg INHALATION Q4 PRN 10/04/19 07/20/20 History magnesium chloride 64 mg PO PM 10/05/19 07/20/20 History lactulose [Constulose] 30 ml PO QID PRN 10/11/19 07/20/20 History levothyroxine 175 mcg PO DAILY 11/20/19 07/20/20 History oxycodone 15 mg PO QID PRN 02/23/20 07/20/20 History buprenorphine HCl [Belbuca] 150 mcg BUCCAL BID 07/20/20 07/20/20 History Past Med/Surg History Medical History (Updated 07/20/20 @ 17:00 by Valencia Carrillo DO) Abdominal wall cellulitis Acute hepatic encephalopathy Bowel obstruction Cauda equina compression Cellulitis and abscess of trunk (Unknown) Chronic low back pain COPD, group D, by GOLD 2017 classification Deep vein blood clot of left lower extremity RIGHT AND LEFT LEG AND THEN MOVED LUNG - 2001 Diabetes Diabetic neuropathy (01/04/11) Fracture of fourth metatarsal bone of left foot Gastritis Hyperammonemia Hypokalemia Hypomagnesemia Incarcerated ventral hernia Kidney stone HX OF AND HAD LITHOTRIPSY RIMA (obstructive sleep apnea) HX OF AND NO CURRENT PROBLEM Paroxysmal A-fib 2013 on Xarelto Pyelonephritis Rectal bleeding Septic shock Severe sepsis Splenomegaly, not elsewhere classified Supratherapeutic INR UTI (urinary tract infection) Surgical History History of appendectomy History of arthroplasty of right knee Hx of lithotripsy Hx of ventral hernia repair S/P cholecystectomy S/P sinus surgery S/P MARLEE (total abdominal hysterectomy) Family History Father Cancer Liver Brother Kidney disease Renal failure Cirrhosis Brother Cirrhosis Other Family history non-contributory Social History Smoking Status: Current every day smoker Tobacco Type: Cigarettes Cigarettes Per Day: 1/2 PPD; Second Hand Exposure: Yes; Hx Alcohol Use: No Hx Substance Use: No Preferred Language: Occitan Communication Ability: Effective Front Desk Associate Required: No Beliefs That Will Affect Care: None marital status: Current Living Situation: Other Current Living Situation Comment: friend/caregiver herbert vaughan current occupational status: disabled Feels Safe at Home: Yes Safety Concerns: Feels Safe At This Time Assistive Devices: Glasses and Oxygen - Continuous Review of Systems Review of Systems: All systems reviewed & are unremarkable except as noted in HPI & below Physical Exam Constitutional: + morbidly obese and cooperative; no acute distress and no altered mental status Eyes: PERRL, conjunctivae normal, anicteric sclerae ENMT: external ear and nose normal, oropharynx normal Neck: trachea midline, no thyromegaly Respiratory: normal respiratory effort, + labored breathing, + cough (wet sounding) and able to speak in complete sentences; does not use accessory muscles, no audible wheezes and no nasal flaring Auscultation: + diminished lung sounds and + crackles (Note fine crackles in the B/L bases with coarse rales throughout lungs) Cardiovascular: Rate/Rhythm: regular rate and regular rhythm Distant heart sounds. Chronic appearing edema B/L LE. Nonpitting Gastrointestinal (Abdomen): Inspection/Auscultation: normal bowel sounds; abdomen not distended and no abdominal edema Percussion/Palpation: + abdomen tender (Mildly tender midline, pt says chronic from hernias) Musculoskeletal: Head/Neck/Chest: normocephalic and head atraumatic Skin: Chronic appearing brassy discoloration to the B/L LE Neurologic: PERRL, EOMI, accommodation nl, no face palsy, no dysarthria Psychiatric: A+Ox3, euthymic affect Results & Data Results & Data ([facility]) Vital Signs (Past 12 Hours) Vital Signs Temp Pulse Pulse Resp BP Pulse Ox 07/20/20 10:13 78 26 H 119/77 96 07/20/20 09:40 77 33 H 174/148 H 97 07/20/20 09:34 79 20 100 07/20/20 08:55 36.6 C 87 24 157/79 H 88 L Laboratory Results Laboratory Results - last 24 hr 07/20/20 07/20/20 07/20/20 09:20 09:20 11:32 WBC 8.49 RBC 3.36 L Hgb 11.9 L Hct 34.7 L MCV 103.3 H MCH 35.4 H MCHC 34.3 RDW Std Deviation 59.9 H RDW Coeff of Mari 16.0 H Plt Count 107 L MPV 9.2 Immature Gran % (Auto) 0.2 Neut % (Auto) 70.4 Lymph % (Auto) 16.8 [place] % (Auto) 10.4 Eos % (Auto) 2.0 Baso % (Auto) 0.2 Neut # (Auto) 5.97 Lymph # (Auto) 1.43 [place] # (Auto) 0.88 H Eos # (Auto) 0.17 Baso # (Auto) 0.02 Immature Gran # (Auto) 0.02 Sodium 137 Potassium 3.9 Chloride 107 Carbon Dioxide 27 Anion Gap 3.0 BUN 12 Creatinine 0.88 Est Cr Clr Drug Dosing 107.4 Est GFR ( Amer) 85.1 Est GFR (Non-Af Amer) 73.4 BUN/Creatinine Ratio 13.6 Glucose 239 H Calcium 8.4 L Total Bilirubin 1.0 AST 31 ALT 17 Alkaline Phosphatase 199 H Troponin I < 0.015 NT-Pro-B Natriuret Pep 285 Total Protein 5.6 L Albumin 2.0 L Globulin 3.6 Albumin/Globulin Ratio 0.6 L Urine Color Urine Appearance Urine pH Ur Specific [place] Urine Protein Urine Glucose (UA) Urine Ketones Urine Blood Urine Nitrite Urine Bilirubin Urine Urobilinogen Ur Leukocyte Esterase COVID-19 Eval Order CovFluRsv at [facility] SARS-CoV-2 (PCR) Influenza Type A (PCR) Influenza Type B (PCR) RSV (RT-PCR) 07/20/20 07/20/20 11:32 11:40 WBC RBC Hgb Hct MCV MCH MCHC RDW Std Deviation RDW Coeff of [place] Plt Count MPV Immature Gran % (Auto) Neut % (Auto) Lymph % (Auto) [place] % (Auto) Eos % (Auto) Baso % (Auto) Neut # (Auto) Lymph # (Auto) [place] # (Auto) Eos # (Auto) Baso # (Auto) Immature Gran # (Auto) Sodium Potassium Chloride Carbon Dioxide Anion Gap BUN Creatinine Est Cr Clr Drug Dosing Est GFR ( Amer) Est GFR (Non-Af Amer) BUN/Creatinine Ratio Glucose Calcium Total Bilirubin AST ALT Alkaline Phosphatase Troponin I NT-Pro-B Natriuret Pep Total Protein Albumin Globulin Albumin/Globulin Ratio Urine Color Yellow Urine Appearance Clear Urine pH 6.5 Ur Specific [place] 1.008 Urine Protein Negative Urine Glucose (UA) Negative Urine Ketones Negative Urine Blood Negative Urine Nitrite Negative Urine Bilirubin Negative Urine Urobilinogen Negative Ur Leukocyte Esterase Negative COVID-19 Eval Order SARS-CoV-2 (PCR) Pending Influenza Type A (PCR) Pending Influenza Type B (PCR) Pending RSV (RT-PCR) Pending Diagnostic Findings CXR: IMPRESSION: 1. Cardiomegaly with pulmonary vascular congestion and interstitial opacities suggestive of pulmonary edema. 2. Possible trace pleural effusions. Code Status & VTE Plan VTE Prophylaxis Plan VTE Prophylaxis will be ordered: Yes Supervising Physician Co-Signing Physician Notes I have seen and examined the patient and have discussed the case with the provider above. I agree with the assessment and plan as stated with the following exceptions. She has declined on the floor, desaturating to the 70s off oxygen while eating some food. She recovered but is now requiring 8L via oxymask to maintain oxygen saturation in the low 90s. She reports having some wheezing, dyspnea and sputum changes in the setting of a "chronic smoker's cough" over the past 2 days. She reports swelling in her belly x 2 days. She has clear congestion/pulmonary edema with pleural effusions on her CXR and is receiving diuretics for this with a Graham in place. ROS reveals persistent SOB, cough, no fevers, chills, diarrhea. She does report persistent BMs daily on lactulose but reports persistent nausea. She is on chronic narcotics for a "b roken back." She is morbidly obese and has conversational dyspnea. She is not working to breathe at rest and does not easily move around the bed without help. Heart exam reveals S1/2, reg rate and rhythm with no murmurs, lungs are clear to auscultation for the most part. Abdomen is tender to palpation in RLQ, soft. protuberant and nondistended. She has no peripheral edema. Agree with plan to continue with diuresis. Low salt diet (NPO for now while pulmonary status fluctuating), daily standing weights, accurate I/Os with Graham in place. Will also treat this active smoker with additional steroids, Rocephin, and continued bronchodilator therapy for possible COPD exacerbation. Her insulin control was tighten to account for the expected hyperglycemic response from the steroids. She does not appear to have pneumonia. Will check procalcitonin. BNP is normal. Repeat echo. No evidence of ascites on us. Cirrhosis appears compensated. DO Gerardo
[2020-07-20 12:34] LABS: Influenza A virus by PCR Negative (Neg); Influenza B virus by PCR Negative (Neg); RSV by PCR Negative (Neg); SARS CoV2 RNA(COVID-19) InHosp NEGATIVE (Negative)
[2020-07-20 12:56] LABS: INR 1.4 (0.9-1.1); Prothrombin Time 13.9 Seconds (9.0-12.0)
[2020-07-20] MEDS ORDERED: oxyCODONE HCL IR 5 MG TAB (IMMEDIATE RELEASE) PO PRN (13:30)
[2020-07-20] MEDS ORDERED: LACTULOSE SYRUP 20 GM/30 ML UDC PO PRN (13:30)
[2020-07-20] MEDS ORDERED: PROCHLORPERAZINE MALEATE 5 MG TAB PO PRN (13:30)
[2020-07-20] MEDS ORDERED: ACETAMINOPHEN 325 MG TAB PO PRN (13:30)
[2020-07-20] MEDS ORDERED: ALBUT/IPRATROP 3MG/0.5MG NEB 3 ML VIAL NEB PRN (13:30)
[2020-07-20] MEDS ORDERED: PHARMACY GLYCEMIC MGMT CONSULT PRN (13:51)
[2020-07-20] MEDS ORDERED: GLUCOSE 40% GEL 15 GM TUBE PO PRN (14:00)
[2020-07-20] MEDS ORDERED: INSULIN GLARGINE SOLOSTAR 100 UNITS/ML 3 ML PEN SC ONE (14:00)
[2020-07-20] MEDS ORDERED: DEXTROSE 50% 50 ML SYRINGE IV PRN (14:00)
[2020-07-20] MEDS ORDERED: GLUCAGON FOR INJ 1 MG VIAL IM PRN (14:00)
[2020-07-20] MEDS ORDERED: CARBOHYDRATES FOR HYPOGLYCEMIA PO PRN (14:00)
[2020-07-20] MEDS ORDERED: GLUCOSE 10 TABS/TUBE PO PRN (14:00)
--- NOTE | 2020-07-20 14:54 | Pharmacy Report ---
Pharmacy Glycemic Short Note 2 - Date of Service July 20, 2020 - Glycemic Short BSG Results (Last 24 hours): 07/20/20 09:20 Glucose 239 H OUTPATIENT ANTIDIABETIC REGIMEN: * Trulicity SQ weekly * Basaglar 120 units SQ BID * NovoLog 15 units SQ TIDM * A1c = 8.2% on 12/29/19 ASSESSMENT: * 54yo T2DM female known to pharmacy from previous admissions/glycemic consults; most recently December 2019 * Pt uses large doses of insulin as an outpatient. Outpatient regimen is heavily weighted towards basal insulin indicating that her basal insulin is covering some prandial insulin needs. * Typically patient only requires ~112 units of insulin per day while admitted. Will initiate SQ basal bolus insulin regimen similar to December 2019 admission and titrate based on BSG trends. PLAN FOR INPATIENT GLYCEMIC CONTROL: * Basal insulin * Lantus 40 units SQ daily * Bolus insulin * NovoLog per scale ACHS or Q6hrs while NPO * Goal Range: Low 110 mg/dL - High 140 mg/dL * Correction Factor: 10 mg/dL/unit * Nutritional / Prandial insulin per carb ratio of 1 unit per 3 grams CHO consumed PLAN FOR DISCHARGE: * TBD
--- NOTE | 2020-07-20 15:14 | Electrocardiogram Report ---
Test Reason : Blood Pressure : / mmHG Vent. Rate : 084 BPM Atrial Rate : 084 BPM P-R Int : 296 ms QRS Dur : 086 ms QT Int : 374 ms P-R-T Axes : 088 045 024 degrees QTc Int : 441 ms Poor data quality, interpretation may be adversely affected Sinus rhythm with 1st degree A-V block Low voltage QRS Borderline ECG When compared with ECG of 15-MAR-2020 15:38, No significant change was found Confirmed by Casey Cardoza ([id number]) on 07/20/2020 3:14:34 PM Referred By: REFERRED SELF Confirmed By:Casey Cardoza
--- NOTE | 2020-07-20 16:18 | Ultrasound Report ---
US abdomen ltd ascites HISTORY: 54 years-old Female R/O ascites, hx cirrhosis acute generalized abdominal pain with distent ion COMPARISON: CT abdomen pelvis 09/17/2019 TECHNIQUE: Multiple real-time sonographic images of the abdomen were obtained assessing grayscale serge earance FINDINGS: Heterogeneity of the liver with marginal nodularity compatible with cirrhosis. No hepatic mass identi fied. No ascites in the upper or lower abdomen. IMPRESSION: Cirrhotic morphology of the liver without ascites. ACT 112: Negative or not required by law. The above report was generated using voice recognition software. It may contain grammatical, syntax o r spelling errors. Electronically signed by: Rancho Rees M.D. 07/20/2020 4:16 PM
[2020-07-20] MEDS ORDERED: INSULIN ASPART 100 UNITS/ML 3 ML PEN SC SCH (16:30)
[2020-07-20] MEDS ORDERED: LACTULOSE SYRUP 20 GM/30 ML UDC PO SCH (17:00)
[2020-07-20] MEDS ORDERED: FUROSEMIDE 40 MG in SYRINGE 0 ML IV SCH (17:00)
[2020-07-20] MEDS: cefTRIAXone SODIUM 2,000 MG in DEXTROSE 5% 50 ML IV SCH (17:50)
[2020-07-20] MEDS: methylPREDNISolone 40 MG in SYRINGE 0 ML IV SCH (17:51)
[2020-07-20] MEDS: RIVAROXABAN 20 MG TAB PO SCH (17:51)
[2020-07-20] MEDS: oxyCODONE HCL IR 5 MG TAB (IMMEDIATE RELEASE) PO SCH ×2 (17:54→20:24)
[2020-07-20] MEDS ORDERED: Nursing to Pharmacy Communication SCH (18:45)
[2020-07-20] MEDS: FUROSEMIDE 40 MG in SYRINGE 0 ML IV SCH (20:18)
[2020-07-20] MEDS: FAMOTIDINE 20 MG TAB PO SCH (20:19)
[2020-07-20] MEDS: carvediloL 12.5 MG TAB PO SCH (20:20)
[2020-07-20] MEDS: DULoxetine HCL 60 MG CAP PO SCH (20:21)
[2020-07-20] MEDS: SPIRONOLACTONE 25 MG TAB PO SCH (20:22)
[2020-07-20] MEDS: NORTRIPTYLINE HCL 25 MG CAP PO SCH (20:22)
[2020-07-20] MEDS: POTASSIUM CHLORIDE 10 MEQ TABCR PO SCH (20:23)
[2020-07-20] MEDS: rifAXIMin 550 MG TABLET PO SCH (20:25)
[2020-07-20] MEDS: MAGNESIUM CHLORIDE 64MG DELAYED REL TAB PO SCH (20:25)
[2020-07-20] MEDS ORDERED: ALBUT/IPRATROP 3MG/0.5MG NEB 3 ML VIAL NEB STA (20:42)
[2020-07-20] MEDS ORDERED: FUROSEMIDE 40 MG/4 ML VIAL IV SCH (21:00)
[2020-07-20] MEDS ORDERED: INSULIN GLARGINE SOLOSTAR 100 UNITS/ML 3 ML PEN SC SCH (21:00)
[2020-07-20] MEDS ORDERED: traZODone HCL 50 MG TAB PO SCH (21:00)
[2020-07-20] MEDS: INSULIN GLARGINE SOLOSTAR 100 UNITS/ML 3 ML PEN SC SCH (21:42)
[2020-07-20 21:44] LABS: Base Excess ABG 4.4 mEq/L (-9-1.8); HCO3 ABG 29 mmol/L (19-24); Oxygen Saturation ABG 90.9 % (90-95); PCO2 ABG 44 mmHg (35-46); PO2 ABG 62 mmHg (80-95); pH ABG 7.44 (7.35-7.45)
[2020-07-20 21:45] LABS: Allen Test Pos (Pos)
[2020-07-20 21:57] LABS: BUN Creatinine Ratio 12.5 (10-20); Calcium 8.1 mg/dl (8.5-10.1); Creatinine Clr Calc Pharmacy 109.9 ml/min; Est GFR (African American) 87.5; Est GFR (Non-African American) 75.5; Magnesium 1.7 mg/dl (1.8-2.4); Potassium 3.8 mmol/L (3.5-5.1)
[2020-07-20] MEDS ORDERED: POTASSIUM CHLORIDE CRTAB 20 MEQ TABCR PO STA (22:02)
[2020-07-20] MEDS ORDERED: MAGNESIUM SULFATE / D5W 1 GM/100 ML BAG IV ONE (22:02)
[2020-07-20] MEDS: LACTULOSE SYRUP 20 GM/30 ML UDC PO SCH (22:16)
[2020-07-21] MEDS: methylPREDNISolone 40 MG in SYRINGE 0 ML IV SCH ×4 (00:16→23:41)
[2020-07-21] MEDS: INSULIN ASPART 100 UNITS/ML 3 ML PEN SC SCH ×5 (00:29→20:34)
[2020-07-21] MEDS: LEVOTHYROXINE SODIUM 175 MCG TABLET PO SCH (05:57)
[2020-07-21] MEDS: PANTOprazole 40 MG TAB PO SCH (05:57)
[2020-07-21 07:03] LABS: Hematocrit (blood only) 35.7 % (37-47); Hemoglobin 11.9 g/dL (12.0-16.0); Mean Corpuscular Hemoglobin 34.6 pg (25-34); Mean Corpuscular Hgb Conc 33.3 g/dL (32-36); Mean Corpuscular Volume 103.8 fL (80-100); Mean Platelet Volume 9.5 fL (7.4-10.4); Platelet Count 111 K/uL (130-400); RDW Coefficient of Variation 15.9 % (11.5-14.5); RDW Standard Deviation 60.2 fL (36.4-46.3); Red Blood Count 3.44 M/uL (4.2-5.4); White Blood Count 6.18 K/uL (4.8-10.8)
[2020-07-21 07:42] LABS: Albumin Globulin Ratio 0.5 (0.9-2); Albumin Level 2.1 gm/dl (3.4-5.0); BUN Creatinine Ratio 15.4 (10-20); Bilirubin,Total 1.1 mg/dl (0.2-1); Calcium 8.6 mg/dl (8.5-10.1); Creatinine Clr Calc Pharmacy 111.1 ml/min; Est GFR (African American) 91.4; Est GFR (Non-African American) 78.8; Estimated Average Glucose 128 mg/dl; Globulin 3.9 gm/dl (2.5-4.0); Hemoglobin A1C 6.1 % (4.5-5.6); Potassium 4.2 mmol/L (3.5-5.1)
--- NOTE | 2020-07-21 07:59 | XRay Report ---
XR chest 1V portable HISTORY: Hypoxia. COMPARISON: Chest 07/20/2020. FINDINGS: No pneumothorax. The heart remains enlarged. No definite pleural effusions. There is diffus e interstitial thickening with a hazy right base airspace opacity. This is similar to the prior study . IMPRESSION: No change in the cardiomegaly and diffuse interstitial opacities. There is also hazy right base airsp angi opacity, unchanged. This favors pulmonary edema. An atypical pneumonia could also have a similar appearance. ACT 112: Negative or not required by law. Electronically signed by: Kalpesh Carcamo M.D. 07/21/2020 7:58 AM
[2020-07-21] MEDS: carvediloL 12.5 MG TAB PO SCH ×2 (08:10→20:47)
[2020-07-21] MEDS: DULoxetine HCL 60 MG CAP PO SCH ×2 (08:10→20:41)
[2020-07-21] MEDS: LACTULOSE SYRUP 20 GM/30 ML UDC PO SCH ×3 (08:10→20:41)
[2020-07-21] MEDS: FERROUS SULFATE 325 MG TAB PO SCH (08:11)
[2020-07-21] MEDS: POTASSIUM CHLORIDE 10 MEQ TABCR PO SCH ×2 (08:11→20:44)
[2020-07-21] MEDS: FUROSEMIDE 40 MG in SYRINGE 0 ML IV SCH (08:12)
[2020-07-21] MEDS: rifAXIMin 550 MG TABLET PO SCH ×2 (08:13→20:44)
[2020-07-21] MEDS ORDERED: INSULIN GLARGINE SOLOSTAR 100 UNITS/ML 3 ML PEN SC SCH (09:00)
[2020-07-21] MEDS: INSULIN GLARGINE SOLOSTAR 100 UNITS/ML 3 ML PEN SC SCH ×2 (09:26→20:37)
[2020-07-21] MEDS: oxyCODONE HCL IR 5 MG TAB (IMMEDIATE RELEASE) PO SCH ×4 (10:04→20:38)
[2020-07-21] MEDS: FAMOTIDINE 20 MG TAB PO SCH ×2 (10:04→20:43)
--- NOTE | 2020-07-21 10:28 | Hospitalist Progress Note ---
Date of Service July 21, 2020 Assessment & Plan (1) Respiratory failure with hypoxia: Likely related to COPD exacerbation and with pulmonary congestion, diastolic heart failure may also be playing a role. Obese body habitus and untreated RIMA definitely contributing to this issue. Responded well to IV Lasix and steroids overnight. BIPAP as tolerated while sleeping. Cont steroids and Rocephin. Will change IV Lasix to PO. Wean oxygen as tolerated. (2) COPD exacerbation: Steorids and Rocephin. Scheduled bronchodilators for now. (3) Acute diastolic CHF (congestive heart failure): Responded well to diuresis with 3.5 L out net overnight. Patient is feeling much better. Echo today limited and could not assess valves but grossly normal EF. Cont with PO home Lasix beginning tomorrow. Low salt diet. Daily weights. Strict I/Os. 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 Appears compensated. Cont Xifaxan and lactulose per home regimen. Cont aldactone. (5) RIMA (obstructive sleep apnea): Continue O2 overnight as above. Patient typically uses nasal cannula at bedtime. BIPAP qHS as tolerated. (6) DM2 (diabetes mellitus, type 2): Basal/bolus insulin while admitted and increased while on steroids. (7) Paroxysmal A-fib: Cont Xarelto and carvedilol per home regimen. (8) Compression fx, lumbar spine: opioid dependent. (9) Drug-seeking behavior: asking for more pain medication. Oxy 5mg IR for breakthrough offered. Place CO2 monitor with patient's current respiratory status. (10) Hypothyroid: Continue levothyroxine per home regimen. (11) Morbid obesity due to excess calories: (12) DVT prophylaxis: Xarelto Full Code Dispo-to home when off oxygen. Valencia Carrillo DO [facility] Hospitalist Admission and Anticipated Discharge Date Admission Date: July 20, 2020 Subjective 54 yo morbidly obese smoker presents with acute respiratory failure. she has had a progression of oxygen needs overnight although she reports feeling better and lungs are clear to auscultation she is requesting food we discussed the risk of aspiration she reported a h/o RIMA, however, declined BIPAP overnight. We discussed the pros/cons of this. she is requesting extra narcotic in the form of "a shot of something" for her severe back pain we discussed PO oxy as an option and she requested q4h prn discussed options with pharmacy for converting her home buprenorphine and nothing is on formulary for this patient states no one can bring it to hospital for her. Review of Systems Review of Systems: All systems reviewed & are unremarkable except as noted in Subjective Physical Exam Physical Exam: CONSTITUTIONAL: morbid obesity, vitals as above, generally well-appearing EYES: normal conjunctivae, no scleral icterus ENT: external ear and nose normal, MMM RESPIRATORY: clear to auscultation bilaterally, no crackles, rales or wheezes, normal respiratory effort, diminished breath sounds at the bases. No conversational dyspnea at rest. CARDIOVASCULAR: regular rate and rhythm, S1 and 2 heard without murmurs, gallops or rubs, no JVD, no peripheral edema GASTROINTESTINAL: normal bowel sounds, soft, protuberant, nondistended. MUSCULOSKELETAL: strength 5/5 throughout, generalized deconditioning physically, head is normocephalic and atraumatic SKIN: warm and dry NEUROLOGIC: CN 2-12 grossly intact, normal cognition, normal speech, no tremor PSYCHIATRIC: alert cooperative and oriented to person, place and time. Results & Data Results & Data ([facility]) Vital Signs (Past 12 Hours) Vital Signs Temp Pulse Pulse Resp BP Pulse Ox 07/21/20 07:58 36.6 C 74 20 96/65 L 91 07/21/20 03:19 70 21 107/70 97 07/21/20 00:04 36.9 C 78 19 107/74 95 07/20/20 23:48 97 07/20/20 22:56 82 Laboratory Results Short CBC 07/21/20 Range/Units 06:09 WBC 6.18 (4.8-10.8) K/uL Hgb 11.9 L (12.0-16.0) g/dL Hct 35.7 L (37-47) % Plt Count 111 L (130-400) K/uL BMP 07/20/20 07/21/20 21:25 06:09 Sodium 137 139 Potassium 3.8 4.2 Chloride 105 107 Carbon Dioxide 27 28 BUN 11 13 Creatinine 0.86 0.83 Glucose 195 H 216 H Calcium 8.1 L 8.6 Liver Function 07/21/20 Range/Units 06:09 Total Bilirubin 1.1 H (0.2-1) mg/dl AST 33 (15-37) U/L ALT 17 (12-78) U/L Alkaline Phosphatase 200 H (45-117) U/L Albumin 2.1 L (3.4-5.0) gm/dl Urine 07/20/20 Range/Units 11:40 Urine Color Yellow Urine Appearance Clear (Clear) Urine pH 6.5 (4.5-7.5) Ur Specific [place] 1.008 (1.000-1.030) Urine Protein Negative (Negative) Urine Glucose (UA) Negative (Negative) Medications Administered Current Inpatient Medications Acetaminophen (Acetaminophen 325 Mg Tab) 650 mg PO Q4H PRN PRN Reason: Pain or Fever Stop: 08/19/20 13:29 Albuterol (Albut/Ipratrop 3mg/0.5mg Neb 3 Ml Vial) 3 ml NEB Q4R PRN PRN Reason: Shortness Of Breath Or Wheezing Stop: 08/19/20 13:29 Carvedilol (Carvedilol 12.5 Mg Tab) 12.5 mg PO BID [facility] Stop: 08/19/20 20:59 Last Admin: 07/21/20 08:10 Dose: Not Given Documented by: Dextrose (Dextrose 50% 50 Ml Syringe) 25 - 50 ml IV UD PRN; Protocol PRN Reason: Hypoglycemia Protocol Stop: 08/19/20 13:59 Duloxetine HCl (Duloxetine Hcl 60 Mg Cap) 60 mg PO BID [facility] Stop: 08/19/20 20:59 Last Admin: 07/21/20 08:10 Dose: 60 mg Documented by: Famotidine (Famotidine 20 Mg Tab) 20 mg PO BID [facility] Stop: 08/19/20 20:59 Last Admin: 07/21/20 10:04 Dose: 20 mg Documented by: Ferrous Sulfate (Ferrous Sulfate 325 Mg Tab) 325 mg PO QAM [facility] Stop: 08/20/20 08:59 Last Admin: 07/21/20 08:11 Dose: 325 mg Documented by: Glucagon (Glucagon For Inj 1 Mg Vial) 1 mg IM UD PRN; Protocol PRN Reason: Hypoglycemia Protocol Stop: 08/19/20 13:59 Glucose (Glucose 40% Gel 15 Gm Tube) 15 - 30 gm PO UD PRN; Protocol PRN Reason: Hypoglycemia Protocol Stop: 08/19/20 13:59 Glucose (Glucose 10 Tabs/Tube) 4 - 8 tabs PO UD PRN; Protocol PRN Reason: Hypoglycemia Protocol Stop: 08/19/20 13:59 Furosemide 40 mg/ Syringe 4 mls @ 4 mls/min IV BID [facility] Stop: 08/19/20 20:59 Last Admin: 07/21/20 08:12 Dose: 4 mls/min Documented by: Methylprednisolone 40 mg/ (Syringe) 0.64 mls @ 1.5 mls/min IV Q8H [facility] Stop: 08/19/20 16:59 Last Admin: 07/21/20 10:03 Dose: 1.5 mls/min Documented by: Ceftriaxone Sodium 2,000 mg/ (Dextrose) 70 mls @ 100 mls/hr IV Q24H [facility]; Protocol Stop: 07/27/20 16:59 Last Infusion: 07/20/20 18:32 Dose: Infused Documented by: Insulin Aspart (Insulin Aspart 100 Units/Ml 3 Ml Pen) 0 units SC Q6 [facility] Stop: 08/20/20 00:00 Last Admin: 07/21/20 05:54 Dose: 4 units Documented by: Insulin Glargine (Insulin Glargine Solostar 100 Units/Ml 3 Ml Pen) 20 units SC BID [facility] Stop: 08/19/20 20:49 Last Admin: 07/21/20 09:26 Dose: 20 units Documented by: Lactulose (Lactulose Syrup 20 Gm/30 Ml Udc) 20 gm PO TID [facility] Stop: 08/19/20 22:14 Last Admin: 07/21/20 08:10 Dose: 20 gm Documented by: Levothyroxine Sodium (Levothyroxine Sodium 175 Mcg Tablet) 175 mcg PO DAILYBB [facility] Stop: 08/20/20 06:29 Last Admin: 07/21/20 05:57 Dose: 175 mcg Documented by: Magnesium Chloride (Magnesium Chloride 64mg Delayed Rel Tab) 64 mg PO PM [facility] Stop: 08/19/20 20:59 Last Admin: 07/20/20 20:25 Dose: 64 mg Documented by: Miscellaneous ([place]: Order Awaiting Action) 1 ea N/A QS [facility] Stop: 08/19/20 15:59 Last Admin: 07/21/20 08:09 Dose: Not Given Documented by: Miscellaneous (Carbohydrates For Hypoglycemia ) 15 - 30 gm PO UD PRN PRN Reason: Hypoglycemia Treatment Stop: 08/19/20 13:59 Nortriptyline HCl (Nortriptyline Hcl 25 Mg Cap) 25 mg PO HS [facility] Stop: 08/19/20 20:59 Last Admin: 07/20/20 20:22 Dose: 25 mg Documented by: Oxycodone HCl (Oxycodone Hcl Ir 5 Mg Tab (Immediate Release)) 15 mg PO QID [facility] Stop: 08/03/20 16:59 Last Admin: 07/21/20 10:04 Dose: 15 mg Documented by: Pantoprazole Sodium (Pantoprazole 40 Mg Tab) 40 mg PO DAILYBB [facility] Stop: 08/20/20 06:29 Last Admin: 07/21/20 05:57 Dose: 40 mg Documented by: Potassium Chloride (Potassium Chloride 10 Meq Tabcr) 10 meq PO BID [facility] Stop: 08/19/20 20:59 Last Admin: 07/21/20 08:11 Dose: 10 meq Documented by: Prochlorperazine (Prochlorperazine Maleate 5 Mg Tab) 5 mg PO TID PRN PRN Reason: Nausea Stop: 08/19/20 13:29 Rifaximin (Rifaximin 550 Mg Tablet) 550 mg PO BID [facility] Stop: 08/19/20 20:59 Last Admin: 07/21/20 08:13 Dose: 550 mg Documented by: Rivaroxaban (Rivaroxaban 20 Mg Tab) 20 mg PO QDD [facility] Stop: 08/19/20 16:29 Last Admin: 07/20/20 17:51 Dose: 20 mg Documented by: Spironolactone (Spironolactone 25 Mg Tab) 25 mg PO HS [facility] Stop: 08/19/20 20:59 Last Admin: 07/20/20 20:22 Dose: 25 mg Documented by: Trazodone HCl (Trazodone Hcl 50 Mg Tab) 50 mg PO HS [facility] Stop: 08/19/20 20:59
[2020-07-21] MEDS: ALBUT/IPRATROP 3MG/0.5MG NEB 3 ML VIAL NEB SCH ×3 (16:17→22:06)
[2020-07-21] MEDS: RIVAROXABAN 20 MG TAB PO SCH (17:09)
[2020-07-21] MEDS: cefTRIAXone SODIUM 2,000 MG in DEXTROSE 5% 50 ML IV SCH (17:10)
[2020-07-21] MEDS: oxyCODONE HCL IR 5 MG TAB (IMMEDIATE RELEASE) PO PRN (17:34)
[2020-07-21] MEDS ORDERED: NALOXONE HCL 0.4 MG/1 ML VIAL/CARP IV PRN (18:25)
[2020-07-21] MEDS ORDERED: Nursing to Pharmacy Communication SCH (19:15)
[2020-07-21] MEDS: MAGNESIUM CHLORIDE 64MG DELAYED REL TAB PO SCH (20:42)
[2020-07-21] MEDS: NORTRIPTYLINE HCL 25 MG CAP PO SCH (20:42)
[2020-07-21] MEDS: SPIRONOLACTONE 25 MG TAB PO SCH (20:45)
[2020-07-22] MEDS: oxyCODONE HCL IR 5 MG TAB (IMMEDIATE RELEASE) PO PRN ×2 (01:58→11:05)
[2020-07-22] MEDS: ALBUT/IPRATROP 3MG/0.5MG NEB 3 ML VIAL NEB SCH ×4 (03:16→15:13)
[2020-07-22] MEDS: PANTOprazole 40 MG TAB PO SCH (05:12)
[2020-07-22] MEDS: LEVOTHYROXINE SODIUM 175 MCG TABLET PO SCH (05:12)
[2020-07-22 06:33] LABS: Hematocrit (blood only) 36.1 % (37-47); Hemoglobin 12.1 g/dL (12.0-16.0); Mean Corpuscular Hemoglobin 34.8 pg (25-34); Mean Corpuscular Hgb Conc 33.5 g/dL (32-36); Mean Corpuscular Volume 103.7 fL (80-100); Mean Platelet Volume 9.6 fL (7.4-10.4); Platelet Count 141 K/uL (130-400); RDW Coefficient of Variation 15.6 % (11.5-14.5); RDW Standard Deviation 59.2 fL (36.4-46.3); Red Blood Count 3.48 M/uL (4.2-5.4); White Blood Count 9.57 K/uL (4.8-10.8)
[2020-07-22 07:06] LABS: BUN Creatinine Ratio 19.6 (10-20); Calcium 9.2 mg/dl (8.5-10.1); Creatinine Clr Calc Pharmacy 96.9 ml/min; Est GFR (African American) 77.6; Phosphorus 3.3 mg/dl (2.5-4.9); Potassium 4.1 mmol/L (3.5-5.1)
[2020-07-22] MEDS: LACTULOSE SYRUP 20 GM/30 ML UDC PO SCH ×3 (08:12→20:08)
[2020-07-22] MEDS: oxyCODONE HCL IR 5 MG TAB (IMMEDIATE RELEASE) PO SCH ×4 (08:12→21:58)
[2020-07-22] MEDS: methylPREDNISolone 40 MG in SYRINGE 0 ML IV SCH ×2 (08:12→16:49)
[2020-07-22] MEDS: carvediloL 12.5 MG TAB PO SCH ×2 (08:13→20:08)
[2020-07-22] MEDS: FUROSEMIDE 20 MG TAB PO SCH (08:13)
[2020-07-22] MEDS: FAMOTIDINE 20 MG TAB PO SCH ×2 (08:14→20:09)
[2020-07-22] MEDS: POTASSIUM CHLORIDE 10 MEQ TABCR PO SCH (08:14)
[2020-07-22] MEDS: DULoxetine HCL 60 MG CAP PO SCH ×2 (08:14→20:08)
[2020-07-22] MEDS: FERROUS SULFATE 325 MG TAB PO SCH (08:14)
[2020-07-22] MEDS: rifAXIMin 550 MG TABLET PO SCH ×2 (08:15→20:09)
--- NOTE | 2020-07-22 09:06 | Hospitalist Progress Note ---
Date of Service July 22, 2020 Assessment & Plan (1) Respiratory failure with hypoxia: Likely related to COPD exacerbation and with pulmonary congestion, diastolic heart failure may have also been playing a role but she is now euvolemic. Intravenous lasix was stopped and converted to her home oral Lasix. Obese body habitus and untreated RIMA definitely contributing to this issue. Heavy use of opioids also contributing somewhat to this problem. Responding well to current therapy. Wean oxygen as tolerated and de-escalate therapy over next 1-2 days. Home when back to baseline of ambulating without oxygen during the day (uses O2 3L NC at night at baseline). (2) COPD exacerbation: Steroids and Rocephin. No wheezing and improvement in respiratory status. Bronchodilators PRN. (3) Acute diastolic CHF (congestive heart failure): Currently compensated. Responded well to diuresis. Patient is feeling much better. Echo today limited and could not assess valves but grossly normal EF. Cont with PO home Lasix. Low salt diet. Daily weights. Strict I/Os. 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 Appears compensated. Cont Xifaxan and lactulose per home regimen. Cont aldactone but will increase from 25 to 50mg and keep Lasix dose at 20mg daily to achieve 5:2 ratio. Stop scheduled potassium supplementation. Monitor closely for any rise in potassium over next couple of days and then again in two weeks as outpatient. (5) RIMA (obstructive sleep apnea): Continue O2 overnight as above. Patient typically uses nasal cannula at bedtime. BIPAP qHS as tolerated. She is currently not tolerating this. (6) DM2 (diabetes mellitus, type 2): Basal/bolus insulin while admitted and increased while on steroids. (7) Paroxysmal A-fib: Cont Xarelto and carvedilol per home regimen. (8) Compression fx, lumbar spine: opioid dependent. (9) Drug-seeking behavior: asking for more pain medication. Oxy 5mg IR for breakthrough offered. Place CO2 monitor with patient's current respiratory status. (10) Hypothyroid: Continue levothyroxine per home regimen. (11) Morbid obesity due to excess calories: (12) DVT prophylaxis: Xarelto Full Code Dispo-to home when off oxygen. Valencia Carrillo DO [facility] Hospitalist Admission and Anticipated Discharge Date Admission Date: July 20, 2020 Subjective 54 yo morbidly obese smoker presents with acute respiratory failure. -she is asking for more pain meds as these were held overnight appropriately out of concern for oversedation -she is otherwise reporting an improvement in her breathing and oxygen supplementation needs have decreased today -she is less weak and is asking when she can go home -she is tolerating PO -reports having a BM today despite heavy narcotiv therapy-taking chronulac PRN Review of Systems Review of Systems: All systems reviewed & are unremarkable except as noted in Subjective Physical Exam Physical Exam: CONSTITUTIONAL: morbid obesity, vitals as above, generally well-appearing EYES: normal conjunctivae, no scleral icterus ENT: external ear and nose normal, MMM RESPIRATORY: clear to auscultation bilaterally, no crackles, rales or wheezes, normal respiratory effort, improved from yesterday's exam. No conversational dyspnea at rest. CARDIOVASCULAR: regular rate and rhythm, S1 and 2 heard without murmurs, gallops or rubs, no JVD, no peripheral edema GASTROINTESTINAL: normal bowel sounds, soft, protuberant, nondistended. MUSCULOSKELETAL: strength 5/5 throughout, generalized deconditioning physically, head is normocephalic and atraumatic SKIN: warm and dry NEUROLOGIC: CN 2-12 grossly intact, normal cognition, normal speech, no tremor PSYCHIATRIC: alert cooperative and oriented to person, place and time. Results & Data Results & Data ([facility]) Vital Signs (Past 12 Hours) Vital Signs Temp Pulse Pulse Resp BP Pulse Ox 07/22/20 07:27 84 20 96 07/22/20 07:18 36.6 C 62 19 108/60 96 07/22/20 02:53 36.6 C 74 20 96/65 L 95 07/21/20 23:57 78 07/21/20 23:13 36.7 C 78 20 99/46 L 94 07/21/20 22:08 77 22 92 Laboratory Results Short CBC 07/22/20 Range/Units 05:51 WBC 9.57 (4.8-10.8) K/uL Hgb 12.1 (12.0-16.0) g/dL Hct 36.1 L (37-47) % Plt Count 141 (130-400) K/uL BMP 07/22/20 05:51 Sodium 134 L Potassium 4.1 Chloride 102 Carbon Dioxide 31 BUN 19 H Creatinine 0.95 Glucose 280 H Calcium 9.2 Medications Administered Current Inpatient Medications Acetaminophen (Acetaminophen 325 Mg Tab) 650 mg PO Q4H PRN PRN Reason: Pain or Fever Stop: 08/19/20 13:29 Albuterol (Albut/Ipratrop 3mg/0.5mg Neb 3 Ml Vial) 3 ml NEB Q4R [facility] Stop: 08/20/20 14:59 Last Admin: 07/22/20 07:24 Dose: 3 ml Documented by: Carvedilol (Carvedilol 12.5 Mg Tab) 12.5 mg PO BID [facility] Stop: 08/19/20 20:59 Last Admin: 07/22/20 08:13 Dose: 12.5 mg Documented by: Dextrose (Dextrose 50% 50 Ml Syringe) 25 - 50 ml IV UD PRN; Protocol PRN Reason: Hypoglycemia Protocol Stop: 08/19/20 13:59 Duloxetine HCl (Duloxetine Hcl 60 Mg Cap) 60 mg PO BID [facility] Stop: 08/19/20 20:59 Last Admin: 07/22/20 08:14 Dose: 60 mg Documented by: Famotidine (Famotidine 20 Mg Tab) 20 mg PO BID [facility] Stop: 08/19/20 20:59 Last Admin: 07/22/20 08:14 Dose: 20 mg Documented by: Ferrous Sulfate (Ferrous Sulfate 325 Mg Tab) 325 mg PO QAM [facility] Stop: 08/20/20 08:59 Last Admin: 07/22/20 08:14 Dose: 325 mg Documented by: Furosemide (Furosemide 20 Mg Tab) 20 mg PO QAM [facility] Stop: 08/21/20 08:59 Last Admin: 07/22/20 08:13 Dose: 20 mg Documented by: Glucagon (Glucagon For Inj 1 Mg Vial) 1 mg IM UD PRN; Protocol PRN Reason: Hypoglycemia Protocol Stop: 08/19/20 13:59 Glucose (Glucose 40% Gel 15 Gm Tube) 15 - 30 gm PO UD PRN; Protocol PRN Reason: Hypoglycemia Protocol Stop: 08/19/20 13:59 Glucose (Glucose 10 Tabs/Tube) 4 - 8 tabs PO UD PRN; Protocol PRN Reason: Hypoglycemia Protocol Stop: 08/19/20 13:59 Furosemide 40 mg/ Syringe 4 mls @ 4 mls/min IV BID [facility] Stop: 08/19/20 20:59 Last Admin: 07/21/20 08:12 Dose: 4 mls/min Documented by: Methylprednisolone 40 mg/ (Syringe) 0.64 mls @ 1.5 mls/min IV Q8H [facility] Stop: 08/19/20 16:59 Last Admin: 07/22/20 08:12 Dose: 1.5 mls/min Documented by: Ceftriaxone Sodium 2,000 mg/ (Dextrose) 70 mls @ 100 mls/hr IV Q24H [facility]; Protocol Stop: 07/27/20 16:59 Last Infusion: 07/21/20 18:03 Dose: Infused Documented by: Insulin Aspart (Insulin Aspart 100 Units/Ml 3 Ml Pen) 0 units SC ACHS [facility] Stop: 08/20/20 00:00 Last Admin: 07/21/20 20:34 Dose: 4 units Documented by: Insulin Glargine (Insulin Glargine Solostar 100 Units/Ml 3 Ml Pen) 35 units SC BID [facility] Stop: 08/20/20 20:59 Last Admin: 07/21/20 20:37 Dose: 35 units Documented by: Lactulose (Lactulose Syrup 20 Gm/30 Ml Udc) 20 gm PO TID [facility] Stop: 08/19/20 22:14 Last Admin: 07/22/20 08:12 Dose: 20 gm Documented by: Levothyroxine Sodium (Levothyroxine Sodium 175 Mcg Tablet) 175 mcg PO DAILYBB [facility] Stop: 08/20/20 06:29 Last Admin: 07/22/20 05:12 Dose: 175 mcg Documented by: Magnesium Chloride (Magnesium Chloride 64mg Delayed Rel Tab) 64 mg PO PM [facility] Stop: 08/19/20 20:59 Last Admin: 07/21/20 20:42 Dose: 64 mg Documented by: Miscellaneous ([facility]: Order [facility]ing [facility]) 1 ea N/A QS [facility] Stop: 08/19/20 15:59 Last Admin: 07/22/20 07:13 Dose: Not Given Documented by: Miscellaneous (Carbohydrates For Hypoglycemia ) 15 - 30 gm PO UD PRN PRN Reason: Hypoglycemia Treatment Stop: 08/19/20 13:59 Naloxone HCl (Naloxone Hcl 0.4 Mg/1 Ml Vial/Carp) 0.4 mg IV UD PRN PRN Reason: concern for overdose, RR<12 Stop: 08/20/20 18:24 Nortriptyline HCl (Nortriptyline Hcl 25 Mg Cap) 25 mg PO HS [facility] Stop: 08/19/20 20:59 Last Admin: 07/21/20 20:42 Dose: 25 mg Documented by: Oxycodone HCl (Oxycodone Hcl Ir 5 Mg Tab (Immediate Release)) 5 mg PO Q4H PRN PRN Reason: Breakthrough Pain Stop: 08/04/20 17:15 Last Admin: 07/22/20 01:58 Dose: 5 mg Documented by: Oxycodone HCl (Oxycodone Hcl Ir 5 Mg Tab (Immediate Release)) 15 mg PO QID [facility] Stop: 08/04/20 20:59 Last Admin: 07/22/20 08:12 Dose: 15 mg Documented by: Pantoprazole Sodium (Pantoprazole 40 Mg Tab) 40 mg PO DAILYBB [facility] Stop: 08/20/20 06:29 Last Admin: 07/22/20 05:12 Dose: 40 mg Documented by: Potassium Chloride (Potassium Chloride 10 Meq Tabcr) 10 meq PO BID [facility] Stop: 08/19/20 20:59 Last Admin: 07/22/20 08:14 Dose: 10 meq Documented by: Prochlorperazine (Prochlorperazine Maleate 5 Mg Tab) 5 mg PO TID PRN PRN Reason: Nausea Stop: 08/19/20 13:29 Rifaximin (Rifaximin 550 Mg Tablet) 550 mg PO BID [facility] Stop: 08/19/20 20:59 Last Admin: 07/22/20 08:15 Dose: 550 mg Documented by: Rivaroxaban (Rivaroxaban 20 Mg Tab) 20 mg PO QDD [facility] Stop: 08/19/20 16:29 Last Admin: 07/21/20 17:09 Dose: 20 mg Documented by: Spironolactone (Spironolactone 25 Mg Tab) 25 mg PO HS [facility] Stop: 08/19/20 20:59 Last Admin: 07/21/20 20:45 Dose: 25 mg Documented by: Trazodone HCl (Trazodone Hcl 50 Mg Tab) 50 mg PO HS [facility] Stop: 08/19/20 20:59
[2020-07-22] MEDS: INSULIN ASPART 100 UNITS/ML 3 ML PEN SC SCH ×4 (09:38→20:23)
[2020-07-22] MEDS: INSULIN GLARGINE SOLOSTAR 100 UNITS/ML 3 ML PEN SC SCH ×2 (09:39→20:20)
[2020-07-22] MEDS ORDERED: ALBUT/IPRATROP 3MG/0.5MG NEB 3 ML VIAL NEB PRN (15:41)
[2020-07-22] MEDS: RIVAROXABAN 20 MG TAB PO SCH (16:49)
[2020-07-22] MEDS: cefTRIAXone SODIUM 2,000 MG in DEXTROSE 5% 50 ML IV SCH (16:49)
[2020-07-22] MEDS: MAGNESIUM CHLORIDE 64MG DELAYED REL TAB PO SCH (20:08)
[2020-07-22] MEDS: NORTRIPTYLINE HCL 25 MG CAP PO SCH (20:09)
[2020-07-23] MEDS: oxyCODONE HCL IR 5 MG TAB (IMMEDIATE RELEASE) PO PRN ×4 (02:16→15:38)
[2020-07-23] MEDS: LEVOTHYROXINE SODIUM 175 MCG TABLET PO SCH (06:20)
[2020-07-23] MEDS: PANTOprazole 40 MG TAB PO SCH (06:20)
[2020-07-23] MEDS: DULoxetine HCL 60 MG CAP PO SCH ×2 (07:45→20:09)
[2020-07-23] MEDS: carvediloL 12.5 MG TAB PO SCH ×2 (07:45→20:09)
[2020-07-23] MEDS: SPIRONOLACTONE 25 MG TAB PO SCH (07:46)
[2020-07-23] MEDS: predniSONE 20 MG TAB PO SCH (07:46)
[2020-07-23 07:54] LABS: Hematocrit (blood only) 36.4 % (37-47); Hemoglobin 12.3 g/dL (12.0-16.0); Mean Corpuscular Hgb Conc 33.8 g/dL (32-36); Mean Corpuscular Volume 103.7 fL (80-100); Mean Platelet Volume 9.3 fL (7.4-10.4); Platelet Count 108 K/uL (130-400); RDW Coefficient of Variation 15.3 % (11.5-14.5); RDW Standard Deviation 58.1 fL (36.4-46.3); Red Blood Count 3.51 M/uL (4.2-5.4)
[2020-07-23] MEDS: rifAXIMin 550 MG TABLET PO SCH ×2 (07:58→20:08)
[2020-07-23] MEDS: FUROSEMIDE 20 MG TAB PO SCH (07:58)
[2020-07-23] MEDS: FAMOTIDINE 20 MG TAB PO SCH ×2 (07:58→20:08)
[2020-07-23] MEDS: FERROUS SULFATE 325 MG TAB PO SCH (07:58)
[2020-07-23] MEDS: INSULIN GLARGINE SOLOSTAR 100 UNITS/ML 3 ML PEN SC SCH ×2 (07:59→20:10)
[2020-07-23] MEDS: LACTULOSE SYRUP 20 GM/30 ML UDC PO SCH ×3 (07:59→20:07)
[2020-07-23] MEDS: INSULIN ASPART 100 UNITS/ML 3 ML PEN SC SCH ×4 (08:01→20:11)
[2020-07-23] MEDS: oxyCODONE HCL IR 5 MG TAB (IMMEDIATE RELEASE) PO SCH ×4 (08:04→21:14)
[2020-07-23 08:24] LABS: BUN Creatinine Ratio 20.2 (10-20); Calcium 9.1 mg/dl (8.5-10.1); Creatinine Clr Calc Pharmacy 94.8 ml/min; Est GFR (African American) 75.7; Est GFR (Non-African American) 65.3; Magnesium 2.1 mg/dl (1.8-2.4); Potassium 4.6 mmol/L (3.5-5.1)
--- NOTE | 2020-07-23 08:42 | Hospitalist Progress Note ---
Date of Service July 23, 2020 Assessment & Plan (1) Respiratory failure with hypoxia: Likely related to COPD exacerbation and with pulmonary congestion, diastolic heart failure may have also been playing a role but she is now euvolemic. Intravenous lasix was stopped and converted to her home oral Lasix. Obese body habitus and untreated RIMA definitely contributing to this issue. Heavy use of opioids also contributing somewhat to this problem. Responding well to current therapy. Wean oxygen as tolerated and de-escalate therapy over next 1-2 days. Home when back to baseline of ambulating without oxygen during the day (uses O2 3L NC at night at baseline). (2) COPD exacerbation: Steroids and Rocephin. No wheezing and improvement in respiratory status. Bronchodilators PRN. (3) Acute diastolic CHF (congestive heart failure): Currently compensated. Responded well to diuresis. Patient is feeling much better. Echo limited and could not assess valves but grossly normal EF. Cont with PO home Lasix. Low salt diet. Daily weights. Strict I/Os. 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 Appears compensated. Cont Xifaxan and lactulose per home regimen. Cont aldactone but will increase from 25 to 50mg and keep Lasix dose at 20mg daily to achieve 5:2 ratio. Stop scheduled potassium supplementation. Monitor closely for any rise in potassium over next couple of days and then again in two weeks as outpatient. (5) RIMA (obstructive sleep apnea): Continue O2 overnight as above. Patient typically uses nasal cannula at bedtime. BIPAP qHS as tolerated. She is currently not tolerating this. (6) DM2 (diabetes mellitus, type 2): Basal/bolus insulin while admitted and increased while on steroids. (7) Paroxysmal A-fib: Cont Xarelto and carvedilol per home regimen. (8) Compression fx, lumbar spine: opioid dependent. (9) Drug-seeking behavior: asking for more pain medication. Oxy 5mg IR for breakthrough offered. Place CO2 monitor with patient's current respiratory status. (10) Hypothyroid: Continue levothyroxine per home regimen. (11) Morbid obesity due to excess calories: (12) DVT prophylaxis: Xarelto Full Code Dispo-to home when off oxygen. Admission and Anticipated Discharge Date Admission Date: July 20, 2020 Subjective 54 yo morbidly obese smoker presents with acute respiratory failure. -she is reporting an improvement in her breathing and oxygen supplementation needs have decreased today (now on 2L) -she is asking for more pain meds as these were held overnight appropriately out of concern for oversedation -she is less weak and is asking when she can go home -she is tolerating PO -reports having a BM yesterday despite heavy narcotic therapy-taking chronulac PRN Review of Systems Review of Systems: All systems reviewed & are unremarkable except as noted in HPI & below Constitutional: no fever and no chills Respiratory: + dyspnea (improved); no cough Cardiovascular: no chest pain and no palpitations Gastrointestinal: no abdominal pain, no nausea and no vomiting Physical Exam Physical Exam: CONSTITUTIONAL: morbidly obese female on suppl. O2 via NC, in NAD EYES: normal conjunctivae, no scleral icterus ENT: external ear and nose normal, MMM RESPIRATORY: clear to auscultation bilaterally, no crackles, rales or wheezes, normal respiratory effort. No conversational dyspnea at rest. CARDIOVASCULAR: regular rate and rhythm, S1 and 2 heard without murmurs, gallops or rubs, no JVD, no peripheral edema GASTROINTESTINAL: normal bowel sounds, soft, protuberant, obese, nondistended. MUSCULOSKELETAL: strength 5/5 throughout, generalized deconditioning physically, head is normocephalic and atraumatic, moves extremities SKIN: warm and dry NEUROLOGIC: CN 2-12 grossly intact, normal cognition, normal speech, no tremor, moves extremities spontaneously PSYCHIATRIC: alert cooperative and oriented to person, place and time. Results & Data Results & Data ([facility]) Vital Signs (Past 12 Hours) Vital Signs Temp Pulse Pulse Pulse Resp BP Pulse Ox 07/23/20 08:00 37.2 C 64 20 102/62 97 07/23/20 04:00 36.6 C 53 L 20 101/66 92 07/23/20 00:00 36.8 C 75 20 92/64 L 91 07/22/20 23:42 77 Laboratory Results 07/23/20 07/23/20 07/23/20 Range/Units 07:40 07:40 07:08 WBC 5.70 (4.8-10.8) K/uL RBC 3.51 L (4.2-5.4) M/uL Hgb 12.3 (12.0-16.0) g/dL Hct 36.4 L (37-47) % MCV 103.7 H (80-100) fL MCH 35.0 H (25-34) pg MCHC 33.8 (32-36) g/dL RDW Std Deviation 58.1 H (36.4-46.3) fL RDW Coeff of Mari 15.3 H (11.5-14.5) % Plt Count 108 L (130-400) K/uL MPV 9.3 (7.4-10.4) fL Sodium 135 L (136-145) mmol/L Potassium 4.6 (3.5-5.1) mmol/L Chloride 102 (98-107) mmol/L Carbon Dioxide 32 (21-32) mmol/L Anion Gap 2.0 L (3-11) BUN 20 H (7-18) mg/dl Creatinine 0.97 (0.6-1.2) mg/dl Est Cr Clr Drug Dosing 94.8 ml/min Est GFR ( Amer) 75.7 Est GFR (Non-Af Amer) 65.3 BUN/Creatinine Ratio 20.2 H (10-20) Glucose 260 H (70-99) mg/dl POC Glucose 262 H (70-99) mg/dl Calcium 9.1 (8.5-10.1) mg/dl Magnesium 2.1 (1.8-2.4) mg/dl 07/22/20 07/22/20 07/22/20 Range/Units 20:19 16:02 10:40 WBC (4.8-10.8) K/uL RBC (4.2-5.4) M/uL Hgb (12.0-16.0) g/dL Hct (37-47) % MCV (80-100) fL MCH (25-34) pg MCHC (32-36) g/dL RDW Std Deviation (36.4-46.3) fL RDW Coeff of Mari (11.5-14.5) % Plt Count (130-400) K/uL MPV (7.4-10.4) fL Sodium (136-145) mmol/L Potassium (3.5-5.1) mmol/L Chloride (98-107) mmol/L Carbon Dioxide (21-32) mmol/L Anion Gap (3-11) BUN (7-18) mg/dl Creatinine (0.6-1.2) mg/dl Est Cr Clr Drug Dosing ml/min Est GFR ( Amer) Est GFR (Non-Af Amer) BUN/Creatinine Ratio (10-20) Glucose (70-99) mg/dl POC Glucose 174 H 166 H 266 H (70-99) mg/dl Calcium (8.5-10.1) mg/dl Magnesium (1.8-2.4) mg/dl Medications Administered Current Inpatient Medications Acetaminophen (Acetaminophen 325 Mg Tab) 650 mg PO Q4H PRN PRN Reason: Pain or Fever Stop: 08/19/20 13:29 Albuterol (Albut/Ipratrop 3mg/0.5mg Neb 3 Ml Vial) 3 ml NEB Q4R PRN PRN Reason: Shortness Of Breath Or Wheezing Stop: 08/20/20 14:59 Carvedilol (Carvedilol 12.5 Mg Tab) 12.5 mg PO BID [facility] Stop: 08/19/20 20:59 Last Admin: 07/23/20 07:45 Dose: 12.5 mg Documented by: Dextrose (Dextrose 50% 50 Ml Syringe) 25 - 50 ml IV UD PRN; Protocol PRN Reason: Hypoglycemia Protocol Stop: 08/19/20 13:59 Duloxetine HCl (Duloxetine Hcl 60 Mg Cap) 60 mg PO BID [facility] Stop: 08/19/20 20:59 Last Admin: 07/23/20 07:45 Dose: 60 mg Documented by: Famotidine (Famotidine 20 Mg Tab) 20 mg PO BID PAUL Stop: 08/19/20 20:59 Last Admin: 07/23/20 07:58 Dose: 20 mg Documented by: Ferrous Sulfate (Ferrous Sulfate 325 Mg Tab) 325 mg PO QAM [facility] Stop: 08/20/20 08:59 Last Admin: 07/23/20 07:58 Dose: 325 mg Documented by: Furosemide (Furosemide 20 Mg Tab) 20 mg PO QAM [facility] Stop: 08/21/20 08:59 Last Admin: 07/23/20 07:58 Dose: 20 mg Documented by: Glucagon (Glucagon For Inj 1 Mg Vial) 1 mg IM UD PRN; Protocol PRN Reason: Hypoglycemia Protocol Stop: 08/19/20 13:59 Glucose (Glucose 40% Gel 15 Gm Tube) 15 - 30 gm PO UD PRN; Protocol PRN Reason: Hypoglycemia Protocol Stop: 08/19/20 13:59 Glucose (Glucose 10 Tabs/Tube) 4 - 8 tabs PO UD PRN; Protocol PRN Reason: Hypoglycemia Protocol Stop: 08/19/20 13:59 Furosemide 40 mg/ Syringe 4 mls @ 4 mls/min IV BID PAUL Stop: 08/19/20 20:59 Last Admin: 07/21/20 08:12 Dose: 4 mls/min Documented by: Ceftriaxone Sodium 2,000 mg/ (Dextrose) 70 mls @ 100 mls/hr IV Q24H PAUL; Protocol Stop: 07/27/20 16:59 Last Infusion: 07/22/20 17:31 Dose: Infused Documented by: Insulin Aspart (Insulin Aspart 100 Units/Ml 3 Ml Pen) 0 units SC ACHS [facility] Stop: 08/20/20 00:00 Last Admin: 07/23/20 08:01 Dose: 25 units Documented by: Insulin Glargine (Insulin Glargine Solostar 100 Units/Ml 3 Ml Pen) 35 units SC BID [facility] Stop: 08/20/20 20:59 Last Admin: 07/23/20 07:59 Dose: 35 units Documented by: Lactulose (Lactulose Syrup 20 Gm/30 Ml Udc) 20 gm PO TID [facility] Stop: 08/19/20 22:14 Last Admin: 07/23/20 07:59 Dose: 20 gm Documented by: Levothyroxine Sodium (Levothyroxine Sodium 175 Mcg Tablet) 175 mcg PO DAILYBB [facility] Stop: 08/20/20 06:29 Last Admin: 07/23/20 06:20 Dose: 175 mcg Documented by: Magnesium Chloride (Magnesium Chloride 64mg Delayed Rel Tab) 64 mg PO PM PAUL Stop: 08/19/20 20:59 Last Admin: 07/22/20 20:08 Dose: 64 mg Documented by: Miscellaneous ([place]: Order Awaiting Action) 1 ea N/A QS [facility] Stop: 08/19/20 15:59 Last Admin: 07/23/20 07:42 Dose: Not Given Documented by: Miscellaneous (Carbohydrates For Hypoglycemia ) 15 - 30 gm PO UD PRN PRN Reason: Hypoglycemia Treatment Stop: 08/19/20 13:59 Naloxone HCl (Naloxone Hcl 0.4 Mg/1 Ml Vial/Carp) 0.4 mg IV UD PRN PRN Reason: concern for overdose, RR<12 Stop: 08/20/20 18:24 Nortriptyline HCl (Nortriptyline Hcl 25 Mg Cap) 25 mg PO HS [facility] Stop: 08/19/20 20:59 Last Admin: 07/22/20 20:09 Dose: 25 mg Documented by: Oxycodone HCl (Oxycodone Hcl Ir 5 Mg Tab (Immediate Release)) 5 mg PO Q4H PRN PRN Reason: Breakthrough Pain Stop: 08/04/20 17:15 Last Admin: 07/23/20 06:20 Dose: 5 mg Documented by: Oxycodone HCl (Oxycodone Hcl Ir 5 Mg Tab (Immediate Release)) 15 mg PO QID [facility] Stop: 08/04/20 20:59 Last Admin: 07/23/20 08:04 Dose: 15 mg Documented by: Pantoprazole Sodium (Pantoprazole 40 Mg Tab) 40 mg PO DAILYBB [facility] Stop: 08/20/20 06:29 Last Admin: 07/23/20 06:20 Dose: 40 mg Documented by: Prednisone (Prednisone 20 Mg Tab) 40 mg PO DAILY [facility] Stop: 08/22/20 08:59 Last Admin: 07/23/20 07:46 Dose: 40 mg Documented by: Prochlorperazine (Prochlorperazine Maleate 5 Mg Tab) 5 mg PO TID PRN PRN Reason: Nausea Stop: 08/19/20 13:29 Rifaximin (Rifaximin 550 Mg Tablet) 550 mg PO BID [facility] Stop: 08/19/20 20:59 Last Admin: 07/23/20 07:58 Dose: 550 mg Documented by: Rivaroxaban (Rivaroxaban 20 Mg Tab) 20 mg PO QDD [facility] Stop: 08/19/20 16:29 Last Admin: 07/22/20 16:49 Dose: 20 mg Documented by: Spironolactone (Spironolactone 25 Mg Tab) 50 mg PO QAM [facility] Stop: 08/22/20 08:59 Last Admin: 07/23/20 07:46 Dose: 50 mg Documented by: Trazodone HCl (Trazodone Hcl 50 Mg Tab) 50 mg PO HS [facility] Stop: 08/19/20 20:59
[2020-07-23] MEDS: RIVAROXABAN 20 MG TAB PO SCH (15:38)
[2020-07-23] MEDS: cefTRIAXone SODIUM 2,000 MG in DEXTROSE 5% 50 ML IV SCH (16:59)
--- NOTE | 2020-07-23 17:30 | XRay Report ---
XR chest 1V portable HISTORY: 54 years-old Female follow up follow-up study in a patient with cardiomegaly and interstiti al opacities COMPARISON: 07/20/2020 TECHNIQUE: Portable AP view of the chest FINDINGS: Cardiac silhouette is enlarged. Pulmonary vascular congestion with mildly improved interstitial coars ening. Improved aeration of the right lung base. Mild blunting of the costophrenic angles without lar ge pleural effusion. No pneumothorax. Bones appear grossly intact. IMPRESSION: Cardiomegaly and pulmonary vascular congestion with mildly improved reticular opacities s uggestive of resolving pulmonary edema. ACT 112: Negative or not required by law. The above report was generated using voice recognition software. It may contain grammatical, syntax o r spelling errors. Electronically signed by: Rancho Rees M.D. 07/23/2020 5:29 PM
[2020-07-23] MEDS: MAGNESIUM CHLORIDE 64MG DELAYED REL TAB PO SCH (20:09)
[2020-07-23] MEDS: NORTRIPTYLINE HCL 25 MG CAP PO SCH (20:09)
[2020-07-24] MEDS: oxyCODONE HCL IR 5 MG TAB (IMMEDIATE RELEASE) PO PRN ×4 (00:49→14:54)
[2020-07-24] MEDS: LEVOTHYROXINE SODIUM 175 MCG TABLET PO SCH (05:41)
[2020-07-24] MEDS: PANTOprazole 40 MG TAB PO SCH (05:41)
[2020-07-24 07:00] LABS: Hematocrit (blood only) 36.3 % (37-47); Hemoglobin 12.3 g/dL (12.0-16.0); Mean Corpuscular Hgb Conc 33.9 g/dL (32-36); Mean Corpuscular Volume 103.4 fL (80-100); Mean Platelet Volume 9.4 fL (7.4-10.4); Platelet Count 127 K/uL (130-400); RDW Coefficient of Variation 15.3 % (11.5-14.5); RDW Standard Deviation 57.9 fL (36.4-46.3); Red Blood Count 3.51 M/uL (4.2-5.4); White Blood Count 6.87 K/uL (4.8-10.8)
[2020-07-24 07:50] LABS: BUN Creatinine Ratio 19.5 (10-20); Calcium 8.6 mg/dl (8.5-10.1); Est GFR (African American) 75.7; Est GFR (Non-African American) 65.3; Magnesium 2.1 mg/dl (1.8-2.4); Phosphorus 2.5 mg/dl (2.5-4.9); Potassium 3.7 mmol/L (3.5-5.1)
[2020-07-24] MEDS: oxyCODONE HCL IR 5 MG TAB (IMMEDIATE RELEASE) PO SCH ×4 (08:13→20:53)
[2020-07-24] MEDS: rifAXIMin 550 MG TABLET PO SCH ×2 (08:13→20:54)
[2020-07-24] MEDS: DULoxetine HCL 60 MG CAP PO SCH ×2 (08:13→20:54)
[2020-07-24] MEDS: predniSONE 20 MG TAB PO SCH (08:14)
[2020-07-24] MEDS: SPIRONOLACTONE 25 MG TAB PO SCH (08:14)
[2020-07-24] MEDS: FERROUS SULFATE 325 MG TAB PO SCH (08:14)
[2020-07-24] MEDS: carvediloL 12.5 MG TAB PO SCH ×2 (08:14→20:54)
[2020-07-24] MEDS: FUROSEMIDE 20 MG TAB PO SCH (08:14)
[2020-07-24] MEDS: LACTULOSE SYRUP 20 GM/30 ML UDC PO SCH ×3 (08:15→20:53)
[2020-07-24] MEDS: FAMOTIDINE 20 MG TAB PO SCH ×2 (08:15→20:53)
[2020-07-24] MEDS: INSULIN GLARGINE SOLOSTAR 100 UNITS/ML 3 ML PEN SC SCH ×2 (08:16→21:14)
[2020-07-24] MEDS: INSULIN ASPART 100 UNITS/ML 3 ML PEN SC SCH ×4 (08:17→21:15)
[2020-07-24] MEDS ORDERED: POTASSIUM CHLORIDE CRTAB 20 MEQ TABCR PO STA (08:55)
--- NOTE | 2020-07-24 08:56 | Hospitalist Progress Note ---
Date of Service July 24, 2020 Assessment & Plan (1) Respiratory failure with hypoxia: Likely related to COPD exacerbation and with pulmonary congestion, diastolic heart failure may have also been playing a role but she is now mostlyy euvolemic. Intravenous lasix was stopped and converted to her home oral Lasix. Obese body habitus and untreated RIMA definitely contributing to this issue. Heavy use of opioids also contributing somewhat to this problem. Responding well to current therapy. Wean oxygen as tolerated and de-escalate therapy over next 1-2 days. Home when back to baseline of ambulating without oxygen during the day (uses O2 3L NC at night at baseline). CXR repeated showed improvement in pulm. congestion, will give small dose IV lasix today 2 step obtained on RA a rest but 4L w/ ambulation (2) COPD exacerbation: Steroids and Rocephin. No wheezing and improvement in respiratory status. Bronchodilators PRN. (3) Acute diastolic CHF (congestive heart failure): Currently compensated. Responded well to diuresis. Patient is feeling much better. Echo limited and could not assess valves but grossly normal EF. Cont with PO home Lasix. Low salt diet. Daily weights. Strict I/Os. 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 Appears compensated. Cont Xifaxan and lactulose per home regimen. Cont aldactone but will increase from 25 to 50mg and keep Lasix dose at 20mg daily to achieve 5:2 ratio. Stop scheduled potassium supplementation. Monitor closely for any rise in potassium over next couple of days and then again in two weeks as outpatient. (5) RIMA (obstructive sleep apnea): Continue O2 overnight as above. Patient typically uses nasal cannula at bedtime. BIPAP qHS as tolerated. She is currently not tolerating this. (6) DM2 (diabetes mellitus, type 2): Basal/bolus insulin while admitted and increased while on steroids. (7) Paroxysmal A-fib: Cont Xarelto and carvedilol per home regimen. (8) Compression fx, lumbar spine: opioid dependent. (9) Drug-seeking behavior: asking for more pain medication. Oxy 5mg IR for breakthrough offered. Place CO2 monitor with patient's current respiratory status. (10) Hypothyroid: Continue levothyroxine per home regimen. (11) Morbid obesity due to excess calories: (12) DVT prophylaxis: Xarelto Full Code Dispo-to home when off oxygen. Admission and Anticipated Discharge Date Admission Date: July 20, 2020 Subjective 54 yo morbidly obese smoker presents with acute respiratory failure. -she is reporting an improvement in her breathing and oxygen supplementation needs have decreased today (now on RA at rest but requires O2 w/ ambulation) -she is asking for more pain meds as these were held overnight appropriately out of concern for oversedation -she is less weak and is asking when she can go home -she is tolerating PO 2 step ordered Review of Systems Review of Systems: All systems reviewed & are unremarkable except as noted in HPI & below Constitutional: no fever and no chills Respiratory: + dyspnea (improved); no cough Cardiovascular: no chest pain and no palpitations Gastrointestinal: no abdominal pain, no nausea and no vomiting Physical Exam Physical Exam: CONSTITUTIONAL: morbidly obese female on suppl. on RA in NAD EYES: normal conjunctivae, no scleral icterus ENT: external ear and nose normal, MMM RESPIRATORY: clear to auscultation bilaterally, + mild rhonchi at bases, normal respiratory effort. No conversational dyspnea at rest. CARDIOVASCULAR: regular rate and rhythm, S1 and 2 heard without murmurs, gallops or rubs, no JVD, no peripheral edema GASTROINTESTINAL: normal bowel sounds, soft, protuberant, obese, nondistended. MUSCULOSKELETAL: strength 5/5 throughout, generalized deconditioning physically, head is normocephalic and atraumatic, moves extremities SKIN: warm and dry NEUROLOGIC: CN 2-12 grossly intact, normal cognition, normal speech, no tremor, moves extremities spontaneously PSYCHIATRIC: alert cooperative and oriented to person, place and time. Results & Data Results & Data ([facility]) Vital Signs (Past 12 Hours) Vital Signs Temp Pulse Pulse Pulse Resp BP Pulse Ox 07/24/20 07:57 36.8 C 65 20 110/76 90 07/24/20 03:37 36.7 C 69 19 115/82 92 07/23/20 23:35 36.8 C 61 20 102/73 96 07/23/20 23:04 70 Laboratory Results 07/24/20 07/24/20 07/24/20 Range/Units 07:46 05:51 05:51 WBC 6.87 (4.8-10.8) K/uL RBC 3.51 L (4.2-5.4) M/uL Hgb 12.3 (12.0-16.0) g/dL Hct 36.3 L (37-47) % MCV 103.4 H (80-100) fL MCH 35.0 H (25-34) pg MCHC 33.9 (32-36) g/dL RDW Std Deviation 57.9 H (36.4-46.3) fL RDW Coeff of Mari 15.3 H (11.5-14.5) % Plt Count 127 L (130-400) K/uL MPV 9.4 (7.4-10.4) fL Sodium 137 (136-145) mmol/L Potassium 3.7 D (3.5-5.1) mmol/L Chloride 103 (98-107) mmol/L Carbon Dioxide 30 (21-32) mmol/L Anion Gap 3.0 (3-11) BUN 19 H (7-18) mg/dl Creatinine 0.97 (0.6-1.2) mg/dl Est Cr Clr Drug Dosing 96.0 ml/min Est GFR ( Amer) 75.7 Est GFR (Non-Af Amer) 65.3 BUN/Creatinine Ratio 19.5 (10-20) Glucose 179 H (70-99) mg/dl POC Glucose 160 H (70-99) mg/dl Calcium 8.6 (8.5-10.1) mg/dl Phosphorus 2.5 (2.5-4.9) mg/dl Magnesium 2.1 (1.8-2.4) mg/dl Procalcitonin (0-0.5) ng/ml 07/24/20 07/23/20 07/23/20 Range/Units 05:51 19:59 16:02 WBC (4.8-10.8) K/uL RBC (4.2-5.4) M/uL Hgb (12.0-16.0) g/dL Hct (37-47) % MCV (80-100) fL MCH (25-34) pg MCHC (32-36) g/dL RDW Std Deviation (36.4-46.3) fL RDW Coeff of Mari (11.5-14.5) % Plt Count (130-400) K/uL MPV (7.4-10.4) fL Sodium (136-145) mmol/L Potassium (3.5-5.1) mmol/L Chloride (98-107) mmol/L Carbon Dioxide (21-32) mmol/L Anion Gap (3-11) BUN (7-18) mg/dl Creatinine (0.6-1.2) mg/dl Est Cr Clr Drug Dosing ml/min Est GFR ( Amer) Est GFR (Non-Af Amer) BUN/Creatinine Ratio (10-20) Glucose (70-99) mg/dl POC Glucose 173 H 168 H (70-99) mg/dl Calcium (8.5-10.1) mg/dl Phosphorus (2.5-4.9) mg/dl Magnesium (1.8-2.4) mg/dl Procalcitonin 0.10 (0-0.5) ng/ml 07/23/20 Range/Units 11:21 WBC (4.8-10.8) K/uL RBC (4.2-5.4) M/uL Hgb (12.0-16.0) g/dL Hct (37-47) % MCV (80-100) fL MCH (25-34) pg MCHC (32-36) g/dL RDW Std Deviation (36.4-46.3) fL RDW Coeff of Mari (11.5-14.5) % Plt Count (130-400) K/uL MPV (7.4-10.4) fL Sodium (136-145) mmol/L Potassium (3.5-5.1) mmol/L Chloride (98-107) mmol/L Carbon Dioxide (21-32) mmol/L Anion Gap (3-11) BUN (7-18) mg/dl Creatinine (0.6-1.2) mg/dl Est Cr Clr Drug Dosing ml/min Est GFR ( Amer) Est GFR (Non-Af Amer) BUN/Creatinine Ratio (10-20) Glucose (70-99) mg/dl POC Glucose 239 H (70-99) mg/dl Calcium (8.5-10.1) mg/dl Phosphorus (2.5-4.9) mg/dl Magnesium (1.8-2.4) mg/dl Procalcitonin (0-0.5) ng/ml Medications Administered Current Inpatient Medications Acetaminophen (Acetaminophen 325 Mg Tab) 650 mg PO Q4H PRN PRN Reason: Pain or Fever Stop: 08/19/20 13:29 Albuterol (Albut/Ipratrop 3mg/0.5mg Neb 3 Ml Vial) 3 ml NEB Q4R PRN PRN Reason: Shortness Of Breath Or Wheezing Stop: 08/20/20 14:59 Carvedilol (Carvedilol 12.5 Mg Tab) 12.5 mg PO BID PAUL Stop: 08/19/20 20:59 Last Admin: 07/24/20 08:14 Dose: 12.5 mg Documented by: Dextrose (Dextrose 50% 50 Ml Syringe) 25 - 50 ml IV UD PRN; Protocol PRN Reason: Hypoglycemia Protocol Stop: 08/19/20 13:59 Duloxetine HCl (Duloxetine Hcl 60 Mg Cap) 60 mg PO BID [facility] Stop: 08/19/20 20:59 Last Admin: 07/24/20 08:13 Dose: 60 mg Documented by: Famotidine (Famotidine 20 Mg Tab) 20 mg PO BID [facility] Stop: 08/19/20 20:59 Last Admin: 07/24/20 08:15 Dose: 20 mg Documented by: Ferrous Sulfate (Ferrous Sulfate 325 Mg Tab) 325 mg PO QAM [facility] Stop: 08/20/20 08:59 Last Admin: 07/24/20 08:14 Dose: 325 mg Documented by: Furosemide (Furosemide 20 Mg Tab) 20 mg PO QAM [facility] Stop: 08/21/20 08:59 Last Admin: 07/24/20 08:14 Dose: 20 mg Documented by: Glucagon (Glucagon For Inj 1 Mg Vial) 1 mg IM UD PRN; Protocol PRN Reason: Hypoglycemia Protocol Stop: 08/19/20 13:59 Glucose (Glucose 40% Gel 15 Gm Tube) 15 - 30 gm PO UD PRN; Protocol PRN Reason: Hypoglycemia Protocol Stop: 08/19/20 13:59 Glucose (Glucose 10 Tabs/Tube) 4 - 8 tabs PO UD PRN; Protocol PRN Reason: Hypoglycemia Protocol Stop: 08/19/20 13:59 Furosemide 40 mg/ Syringe 4 mls @ 4 mls/min IV BID PAUL Stop: 08/19/20 20:59 Last Admin: 07/21/20 08:12 Dose: 4 mls/min Documented by: Ceftriaxone Sodium 2,000 mg/ (Dextrose) 70 mls @ 100 mls/hr IV Q24H [facility]; Protocol Stop: 07/27/20 16:59 Last Infusion: 07/23/20 17:52 Dose: Infused Documented by: Insulin Aspart (Insulin Aspart 100 Units/Ml 3 Ml Pen) 0 units SC ACHS [facility] Stop: 08/20/20 00:00 Last Admin: 07/24/20 08:17 Dose: 17 units Documented by: Insulin Glargine (Insulin Glargine Solostar 100 Units/Ml 3 Ml Pen) 35 units SC BID [facility] Stop: 08/20/20 20:59 Last Admin: 07/24/20 08:16 Dose: 35 units Documented by: Lactulose (Lactulose Syrup 20 Gm/30 Ml Udc) 20 gm PO TID [facility] Stop: 08/19/20 22:14 Last Admin: 07/24/20 08:15 Dose: 20 gm Documented by: Levothyroxine Sodium (Levothyroxine Sodium 175 Mcg Tablet) 175 mcg PO DAILYBB [facility] Stop: 08/20/20 06:29 Last Admin: 07/24/20 05:41 Dose: 175 mcg Documented by: Magnesium Chloride (Magnesium Chloride 64mg Delayed Rel Tab) 64 mg PO PM [facility] Stop: 08/19/20 20:59 Last Admin: 07/23/20 20:09 Dose: 64 mg Documented by: Miscellaneous ([place]: Order Awaiting Action) 1 ea N/A QS [facility] Stop: 08/19/20 15:59 Last Admin: 07/24/20 08:15 Dose: Not Given Documented by: Miscellaneous (Carbohydrates For Hypoglycemia ) 15 - 30 gm PO UD PRN PRN Reason: Hypoglycemia Treatment Stop: 08/19/20 13:59 Naloxone HCl (Naloxone Hcl 0.4 Mg/1 Ml Vial/Carp) 0.4 mg IV UD PRN PRN Reason: concern for overdose, RR<12 Stop: 08/20/20 18:24 Nortriptyline HCl (Nortriptyline Hcl 25 Mg Cap) 25 mg PO HS [facility] Stop: 08/19/20 20:59 Last Admin: 07/23/20 20:09 Dose: 25 mg Documented by: Oxycodone HCl (Oxycodone Hcl Ir 5 Mg Tab (Immediate Release)) 5 mg PO Q4H PRN PRN Reason: Breakthrough Pain Stop: 08/04/20 17:15 Last Admin: 07/24/20 05:40 Dose: 5 mg Documented by: Oxycodone HCl (Oxycodone Hcl Ir 5 Mg Tab (Immediate Release)) 15 mg PO QID [facility] Stop: 08/04/20 20:59 Last Admin: 07/24/20 08:13 Dose: 15 mg Documented by: Pantoprazole Sodium (Pantoprazole 40 Mg Tab) 40 mg PO DAILYBB [facility] Stop: 08/20/20 06:29 Last Admin: 07/24/20 05:41 Dose: 40 mg Documented by: Potassium Chloride (Potassium Chloride Crtab 20 Meq Tabcr) 40 meq PO NOW STA Stop: 07/24/20 08:56 Prednisone (Prednisone 20 Mg Tab) 40 mg PO DAILY [facility] Stop: 08/22/20 08:59 Last Admin: 07/24/20 08:14 Dose: 40 mg Documented by: Prochlorperazine (Prochlorperazine Maleate 5 Mg Tab) 5 mg PO TID PRN PRN Reason: Nausea Stop: 08/19/20 13:29 Rifaximin (Rifaximin 550 Mg Tablet) 550 mg PO BID [facility] Stop: 08/19/20 20:59 Last Admin: 07/24/20 08:13 Dose: 550 mg Documented by: Rivaroxaban (Rivaroxaban 20 Mg Tab) 20 mg PO QDD [facility] Stop: 08/19/20 16:29 Last Admin: 07/23/20 15:38 Dose: 20 mg Documented by: Spironolactone (Spironolactone 25 Mg Tab) 50 mg PO QAM [facility] Stop: 08/22/20 08:59 Last Admin: 07/24/20 08:14 Dose: 50 mg Documented by: Trazodone HCl (Trazodone Hcl 50 Mg Tab) 50 mg PO HS [facility] Stop: 08/19/20 20:59
[2020-07-24] MEDS ORDERED: FUROSEMIDE 20 MG in SYRINGE 0 ML IV ONE (14:30)
[2020-07-24] MEDS: ALBUMIN 25% 12.5 GM/50 ML VIAL IV SCH (14:43)
[2020-07-24] MEDS: cefTRIAXone SODIUM 2,000 MG in DEXTROSE 5% 50 ML IV SCH (17:23)
[2020-07-24] MEDS: RIVAROXABAN 20 MG TAB PO SCH (17:23)
[2020-07-24] MEDS: NORTRIPTYLINE HCL 25 MG CAP PO SCH (20:53)
[2020-07-24] MEDS: MAGNESIUM CHLORIDE 64MG DELAYED REL TAB PO SCH (20:53)
[2020-07-25] MEDS: oxyCODONE HCL IR 5 MG TAB (IMMEDIATE RELEASE) PO PRN ×5 (01:18→15:48)
[2020-07-25] MEDS: PANTOprazole 40 MG TAB PO SCH (05:21)
[2020-07-25] MEDS: LEVOTHYROXINE SODIUM 175 MCG TABLET PO SCH (05:21)
[2020-07-25 07:16] LABS: BUN Creatinine Ratio 23.6 (10-20); Calcium 8.3 mg/dl (8.5-10.1); Creatinine Clr Calc Pharmacy 113.5 ml/min; Est GFR (African American) 92.7; Potassium 3.9 mmol/L (3.5-5.1)
--- NOTE | 2020-07-25 07:18 | Hospitalist Progress Note ---
Date of Service July 25, 2020 Assessment & Plan (1) Respiratory failure with hypoxia: Likely related to COPD exacerbation and with pulmonary congestion, diastolic heart failure may have also been playing a role but she is now mostlyy euvolemic. Intravenous lasix was stopped and converted to her home oral Lasix. Obese body habitus and untreated RIMA definitely contributing to this issue. Heavy use of opioids also contributing somewhat to this problem. Responding well to current therapy. Wean oxygen as tolerated and de-escalate therapy over next 1-2 days. Home when back to baseline of ambulating without oxygen during the day (uses O2 3L NC at night at baseline). CXR repeated showed improvement in pulm. congestion 2 step obtained on RA at rest but 4L w/ ambulation Patient would likely benefit from pulmonology outpatient follow-up, and outpatient sleep study. (2) COPD exacerbation: Steroids and Rocephin. No wheezing and improvement in respiratory status. Bronchodilators PRN. (3) Acute diastolic CHF (congestive heart failure): Currently compensated. Responded well to diuresis. Patient is feeling much better. Echo limited and could not assess valves but grossly normal EF. Cont with PO home Lasix. Low salt diet. Daily weights. Strict I/Os. 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 Appears compensated. Cont Xifaxan and lactulose per home regimen. Cont aldactone but will increase from 25 to 50mg and keep Lasix dose at 20mg daily to achieve 5:2 ratio. Stop scheduled potassium supplementation. Monitor closely for any rise in potassium over next couple of days and then again in two weeks as outpatient. (5) RIMA (obstructive sleep apnea): Continue O2 overnight as above. Patient typically uses nasal cannula at bedtime. BIPAP qHS as tolerated. She is currently not tolerating this. Patient reports having a surgical procedure for RIMA in the past, in the 90s. Would recommend to have sleep study done again as patient may benefit from CPAP/BiPAP at home. Currently does not have any at home, and only uses nasal cannula. (6) DM2 (diabetes mellitus, type 2): Basal/bolus insulin while admitted and increased while on steroids. (7) Paroxysmal A-fib: Cont Xarelto and carvedilol per home regimen. (8) Compression fx, lumbar spine: opioid dependent. (9) Drug-seeking behavior: asking for more pain medication. Oxy 5mg IR for breakthrough offered. Place CO2 monitor with patient's current respiratory status. (10) Hypothyroid: Continue levothyroxine per home regimen. (11) Morbid obesity due to excess calories: (12) DVT prophylaxis: Xarelto Full Code Dispo-to home when off oxygen. Admission and Anticipated Discharge Date Admission Date: July 20, 2020 Subjective 54 yo morbidly obese smoker presents with acute respiratory failure. -she is reporting an improvement in her breathing and oxygen supplementation needs have decreased today (now on RA or 1-2L at rest but requires O2 w/ ambulation) -she is less weak and is asking when she can go home -she is tolerating PO 2 step obtained Caregiver Greg updated at the bedside and over the phone. Review of Systems Review of Systems: All systems reviewed & are unremarkable except as noted in HPI & below Constitutional: no fever and no chills Respiratory: + dyspnea (improved); no cough Cardiovascular: no chest pain and no palpitations Gastrointestinal: no abdominal pain, no nausea and no vomiting Physical Exam Physical Exam: CONSTITUTIONAL: morbidly obese female on suppl. on RA in NAD EYES: normal conjunctivae, no scleral icterus ENT: external ear and nose normal, MMM RESPIRATORY: clear to auscultation bilaterally, diminished at bases, normal respiratory effort. No conversational dyspnea at rest. CARDIOVASCULAR: regular rate and rhythm, S1 and 2 heard without murmurs, gallops or rubs, no JVD, no peripheral edema GASTROINTESTINAL: normal bowel sounds, soft, protuberant, obese, nondistended. MUSCULOSKELETAL: strength 5/5 throughout, generalized deconditioning physically, head is normocephalic and atraumatic, moves extremities SKIN: warm and dry NEUROLOGIC: CN 2-12 grossly intact, normal cognition, normal speech, no tremor, moves extremities spontaneously PSYCHIATRIC: alert cooperative and oriented to person, place and time. Results & Data Results & Data ([facility]) Vital Signs (Past 12 Hours) Vital Signs Temp Pulse Pulse Pulse Resp BP BP 07/25/20 04:54 36.7 C 64 22 124/76 07/24/20 23:11 36.7 C 66 20 94/57 L 07/24/20 23:10 69 07/24/20 19:48 37.0 C 70 14 113/68 Pulse Ox 07/25/20 04:54 96 07/24/20 23:11 91 07/24/20 23:10 07/24/20 19:48 92 Laboratory Results 07/25/20 07/25/20 07/25/20 Range/Units 16:16 11:13 07:30 Sodium (136-145) mmol/L Potassium (3.5-5.1) mmol/L Chloride (98-107) mmol/L Carbon Dioxide (21-32) mmol/L Anion Gap (3-11) BUN (7-18) mg/dl Creatinine (0.6-1.2) mg/dl Est Cr Clr Drug Dosing ml/min Est GFR ( Amer) Est GFR (Non-Af Amer) BUN/Creatinine Ratio (10-20) Glucose (70-99) mg/dl POC Glucose 207 H 119 H 143 H (70-99) mg/dl Calcium (8.5-10.1) mg/dl Magnesium (1.8-2.4) mg/dl 07/25/20 07/24/20 07/24/20 Range/Units 06:23 20:51 20:49 Sodium 139 (136-145) mmol/L Potassium 3.9 (3.5-5.1) mmol/L Chloride 106 (98-107) mmol/L Carbon Dioxide 31 (21-32) mmol/L Anion Gap 2.0 L (3-11) BUN 19 H (7-18) mg/dl Creatinine 0.82 (0.6-1.2) mg/dl Est Cr Clr Drug Dosing 113.5 ml/min Est GFR ( Amer) 92.7 Est GFR (Non-Af Amer) 80.0 BUN/Creatinine Ratio 23.6 H (10-20) Glucose 154 H (70-99) mg/dl POC Glucose 278 H 318 H* (70-99) mg/dl Calcium 8.3 L (8.5-10.1) mg/dl Magnesium 2.0 (1.8-2.4) mg/dl Medications Administered Current Inpatient Medications Acetaminophen (Acetaminophen 325 Mg Tab) 650 mg PO Q4H PRN PRN Reason: Pain or Fever Stop: 08/19/20 13:29 Albuterol (Albut/Ipratrop 3mg/0.5mg Neb 3 Ml Vial) 3 ml NEB Q4R PRN PRN Reason: Shortness Of Breath Or Wheezing Stop: 08/20/20 14:59 Carvedilol (Carvedilol 12.5 Mg Tab) 12.5 mg PO BID [facility] Stop: 08/19/20 20:59 Last Admin: 07/25/20 07:32 Dose: 12.5 mg Documented by: Dextrose (Dextrose 50% 50 Ml Syringe) 25 - 50 ml IV UD PRN; Protocol PRN Reason: Hypoglycemia Protocol Stop: 08/19/20 13:59 Duloxetine HCl (Duloxetine Hcl 60 Mg Cap) 60 mg PO BID [facility] Stop: 08/19/20 20:59 Last Admin: 07/25/20 07:30 Dose: 60 mg Documented by: Famotidine (Famotidine 20 Mg Tab) 20 mg PO BID [facility] Stop: 08/19/20 20:59 Last Admin: 07/25/20 07:31 Dose: 20 mg Documented by: Ferrous Sulfate (Ferrous Sulfate 325 Mg Tab) 325 mg PO QAM [facility] Stop: 08/20/20 08:59 Last Admin: 07/25/20 07:32 Dose: 325 mg Documented by: Furosemide (Furosemide 20 Mg Tab) 20 mg PO QAM [facility] Stop: 08/21/20 08:59 Last Admin: 07/25/20 07:33 Dose: 20 mg Documented by: Glucagon (Glucagon For Inj 1 Mg Vial) 1 mg IM UD PRN; Protocol PRN Reason: Hypoglycemia Protocol Stop: 08/19/20 13:59 Glucose (Glucose 40% Gel 15 Gm Tube) 15 - 30 gm PO UD PRN; Protocol PRN Reason: Hypoglycemia Protocol Stop: 08/19/20 13:59 Glucose (Glucose 10 Tabs/Tube) 4 - 8 tabs PO UD PRN; Protocol PRN Reason: Hypoglycemia Protocol Stop: 08/19/20 13:59 Furosemide 40 mg/ Syringe 4 mls @ 4 mls/min IV BID [facility] Stop: 08/19/20 20:59 Last Admin: 07/21/20 08:12 Dose: 4 mls/min Documented by: Ceftriaxone Sodium 2,000 mg/ (Dextrose) 70 mls @ 100 mls/hr IV Q24H [facility]; Protocol Stop: 07/27/20 16:59 Last Infusion: 07/25/20 17:43 Dose: Infused Documented by: Insulin Aspart (Insulin Aspart 100 Units/Ml 3 Ml Pen) 0 units SC ACHS [facility] Stop: 08/20/20 00:00 Last Admin: 07/25/20 16:45 Dose: 17 units Documented by: Insulin Glargine (Insulin Glargine Solostar 100 Units/Ml 3 Ml Pen) 35 units SC BID [facility] Stop: 08/20/20 20:59 Last Admin: 07/25/20 08:18 Dose: 35 units Documented by: Lactulose (Lactulose Syrup 20 Gm/30 Ml Udc) 20 gm PO TID [facility] Stop: 08/19/20 22:14 Last Admin: 07/25/20 14:14 Dose: Not Given Documented by: Levothyroxine Sodium (Levothyroxine Sodium 175 Mcg Tablet) 175 mcg PO DAILYBB [facility] Stop: 08/20/20 06:29 Last Admin: 07/25/20 05:21 Dose: 175 mcg Documented by: Magnesium Chloride (Magnesium Chloride 64mg Delayed Rel Tab) 64 mg PO PM [facility] Stop: 08/19/20 20:59 Last Admin: 07/24/20 20:53 Dose: 64 mg Documented by: Miscellaneous ([place]: Order Awaiting Action) 1 ea N/A QS [facility] Stop: 08/19/20 15:59 Last Admin: 07/25/20 16:20 Dose: Not Given Documented by: Miscellaneous (Carbohydrates For Hypoglycemia ) 15 - 30 gm PO UD PRN PRN Reason: Hypoglycemia Treatment Stop: 08/19/20 13:59 Naloxone HCl (Naloxone Hcl 0.4 Mg/1 Ml Vial/Carp) 0.4 mg IV UD PRN PRN Reason: concern for overdose, RR<12 Stop: 08/20/20 18:24 Nortriptyline HCl (Nortriptyline Hcl 25 Mg Cap) 25 mg PO HS [facility] Stop: 08/19/20 20:59 Last Admin: 07/24/20 20:53 Dose: 25 mg Documented by: Oxycodone HCl (Oxycodone Hcl Ir 5 Mg Tab (Immediate Release)) 5 mg PO Q4H PRN PRN Reason: Breakthrough Pain Stop: 08/04/20 17:15 Last Admin: 07/25/20 15:48 Dose: 5 mg Documented by: Oxycodone HCl (Oxycodone Hcl Ir 5 Mg Tab (Immediate Release)) 15 mg PO QID [facility] Stop: 08/04/20 20:59 Last Admin: 07/25/20 17:02 Dose: 15 mg Documented by: Pantoprazole Sodium (Pantoprazole 40 Mg Tab) 40 mg PO DAILYBB [facility] Stop: 08/20/20 06:29 Last Admin: 07/25/20 05:21 Dose: 40 mg Documented by: Prednisone (Prednisone 20 Mg Tab) 40 mg PO DAILY [facility] Stop: 08/22/20 08:59 Last Admin: 07/25/20 07:33 Dose: 40 mg Documented by: Prochlorperazine (Prochlorperazine Maleate 5 Mg Tab) 5 mg PO TID PRN PRN Reason: Nausea Stop: 08/19/20 13:29 Rifaximin (Rifaximin 550 Mg Tablet) 550 mg PO BID [facility] Stop: 08/19/20 20:59 Last Admin: 07/25/20 07:30 Dose: 550 mg Documented by: Rivaroxaban (Rivaroxaban 20 Mg Tab) 20 mg PO QDD [facility] Stop: 08/19/20 16:29 Last Admin: 07/25/20 17:24 Dose: 20 mg Documented by: Spironolactone (Spiron[facility]actone 25 Mg Tab) [facility] Stop: 08/22/20 08:59 Last Admin: 07/25/20 07:34 Dose: 50 mg Documented by: Trazodone HCl (Trazodone Hcl 50 Mg Tab) 50 mg PO HS [facility] Stop: 08/19/20 20:59
[2020-07-25] MEDS: DULoxetine HCL 60 MG CAP PO SCH ×2 (07:30→21:33)
[2020-07-25] MEDS: rifAXIMin 550 MG TABLET PO SCH ×2 (07:30→21:33)
[2020-07-25] MEDS: FAMOTIDINE 20 MG TAB PO SCH ×2 (07:31→21:33)
[2020-07-25] MEDS: FERROUS SULFATE 325 MG TAB PO SCH (07:32)
[2020-07-25] MEDS: carvediloL 12.5 MG TAB PO SCH ×2 (07:32→21:09)
[2020-07-25] MEDS: predniSONE 20 MG TAB PO SCH (07:33)
[2020-07-25] MEDS: FUROSEMIDE 20 MG TAB PO SCH (07:33)
[2020-07-25] MEDS: SPIRONOLACTONE 25 MG TAB PO SCH (07:34)
[2020-07-25] MEDS: INSULIN ASPART 100 UNITS/ML 3 ML PEN SC SCH ×4 (08:15→21:17)
[2020-07-25] MEDS: INSULIN GLARGINE SOLOSTAR 100 UNITS/ML 3 ML PEN SC SCH ×2 (08:18→21:17)
[2020-07-25] MEDS: LACTULOSE SYRUP 20 GM/30 ML UDC PO SCH ×3 (08:32→21:10)
[2020-07-25] MEDS: oxyCODONE HCL IR 5 MG TAB (IMMEDIATE RELEASE) PO SCH ×4 (09:07→21:08)
[2020-07-25] MEDS: cefTRIAXone SODIUM 2,000 MG in DEXTROSE 5% 50 ML IV SCH (17:01)
[2020-07-25] MEDS: RIVAROXABAN 20 MG TAB PO SCH (17:24)
[2020-07-25] MEDS: MAGNESIUM CHLORIDE 64MG DELAYED REL TAB PO SCH (21:33)
[2020-07-25] MEDS: NORTRIPTYLINE HCL 25 MG CAP PO SCH (21:33)
[2020-07-26] MEDS: oxyCODONE HCL IR 5 MG TAB (IMMEDIATE RELEASE) PO PRN ×2 (01:11→06:29)
[2020-07-26] MEDS: LEVOTHYROXINE SODIUM 175 MCG TABLET PO SCH (06:28)
[2020-07-26] MEDS: PANTOprazole 40 MG TAB PO SCH (06:31)
--- NOTE | 2020-07-26 07:51 | Hospitalist Progress Note ---
Date of Service July 26, 2020 Assessment & Plan (1) Respiratory failure with hypoxia: Likely related to COPD exacerbation and with pulmonary congestion, diastolic heart failure may have also been playing a role but she is now euvolemic. Intravenous lasix was stopped and converted to her home oral Lasix. Per discussion with patient's caregiver, patient has furosemide as needed however she has not been using furosemide at home for some time. Discussed to take 20 mg on daily basis. Obese body habitus and untreated RIMA definitely contributing to this issue. Heavy use of opioids also contributing somewhat to this problem. Responded well to current therapy. Weaned off oxygen at rest. Pt uses O2 3L NC at night at baseline. 2 step obtained on RA at rest but 4L w/ ambulation Patient would likely benefit from pulmonology outpatient follow-up, and outpatient sleep study. (2) COPD exacerbation: Steroids and Rocephin. No wheezing and improvement in respiratory status. Bronchodilators PRN. (3) Acute diastolic CHF (congestive heart failure): Currently compensated. Responded well to diuresis. Patient is feeling much better. Echo limited and could not assess valves but grossly normal EF. Cont with PO home Lasix. Low salt diet. Daily weights. Strict I/Os. 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 Appears compensated. Cont Xifaxan and lactulose per home regimen. Cont aldactone but will increase from 25 to 50mg and keep Lasix dose at 20mg daily to achieve 5:2 ratio. Stop scheduled potassium supplementation. Monitor closely for any rise in potassium as outpatient. (5) RIMA (obstructive sleep apnea): Continue O2 overnight as above. Patient typically uses nasal cannula at bedtime. BIPAP qHS as tolerated. She is currently not tolerating this. Patient reports having a surgical procedure for RIMA in the past, in the 90s. Would recommend to have sleep study done again as patient may benefit from CPAP/BiPAP at home. Currently does not have any at home, and only uses nasal cannula. (6) DM2 (diabetes mellitus, type 2): Basal/bolus insulin while admitted and increased while on steroids. (7) Paroxysmal A-fib: Cont Xarelto and carvedilol per home regimen. (8) Compression fx, lumbar spine: opioid dependent. (9) Drug-seeking behavior: asking for more pain medication. Oxy 5mg IR for breakthrough offered. Place CO2 monitor with patient's current respiratory status. (10) Hypothyroid: Continue levothyroxine per home regimen. (11) Morbid obesity due to excess calories: (12) DVT prophylaxis: Xarelto Full Code Dispo-to home w/ caregiver Admission and Anticipated Discharge Date Admission Date: July 20, 2020 Subjective 54 yo morbidly obese smoker presents with acute respiratory failure. Patient much improved, she has been asking to be released from hospital for past few days. She is on room air currently and requires oxygen with ambulation or at night, using oxygen at night was already her baseline. 2 step was obtained, which confirmed her oxygen need with ambulation Caregiver Greg Hastings updated over the phone. Review of Systems Review of Systems: All systems reviewed & are unremarkable except as noted in HPI & below Constitutional: no fever and no chills Respiratory: no cough and no dyspnea Cardiovascular: no chest pain Gastrointestinal: no abdominal pain, no nausea and no vomiting Physical Exam Physical Exam: CONSTITUTIONAL: morbidly obese female now on RA in NAD EYES: normal conjunctivae, no scleral icterus ENT: external ear and nose normal, MMM RESPIRATORY: clear to auscultation bilaterally, diminished at bases, normal respiratory effort. No conversational dyspnea at rest. CARDIOVASCULAR: regular rate and rhythm, S1 and 2 heard without murmurs, gallops or rubs, no JVD, no peripheral edema GASTROINTESTINAL: normal bowel sounds, soft, protuberant, obese, nondistended. MUSCULOSKELETAL: strength 5/5 throughout, generalized deconditioning physically, head is normocephalic and atraumatic, moves extremities SKIN: warm and dry NEUROLOGIC: CN 2-12 grossly intact, normal cognition, normal speech, no tremor, moves extremities spontaneously PSYCHIATRIC: alert cooperative and oriented to person, place and time. Results & Data Results & Data ([facility]) Vital Signs (Past 12 Hours) Vital Signs Temp Pulse Pulse Resp BP Pulse Ox 07/26/20 03:46 36.8 C 59 L 20 110/60 95 07/25/20 23:58 61 07/25/20 23:00 36.7 C 75 16 157/90 H 91 Laboratory Results 07/26/20 07/26/20 07/25/20 Range/Units 07:29 07:09 20:25 Sodium 139 (136-145) mmol/L Potassium 3.8 (3.5-5.1) mmol/L Chloride 106 (98-107) mmol/L Carbon Dioxide 32 (21-32) mmol/L Anion Gap 1.0 L (3-11) BUN 18 (7-18) mg/dl Creatinine 0.82 (0.6-1.2) mg/dl Est Cr Clr Drug Dosing 113.6 ml/min Est GFR ( Amer) 92.7 Est GFR (Non-Af Amer) 80.0 BUN/Creatinine Ratio 21.9 H (10-20) Glucose 117 H (70-99) mg/dl POC Glucose 146 H 258 H (70-99) mg/dl Calcium 8.4 L (8.5-10.1) mg/dl Magnesium 2.1 (1.8-2.4) mg/dl 07/25/20 07/25/20 Range/Units 16:16 11:13 Sodium (136-145) mmol/L Potassium (3.5-5.1) mmol/L Chloride (98-107) mmol/L Carbon Dioxide (21-32) mmol/L Anion Gap (3-11) BUN (7-18) mg/dl Creatinine (0.6-1.2) mg/dl Est Cr Clr Drug Dosing ml/min Est GFR ( Amer) Est GFR (Non-Af Amer) BUN/Creatinine Ratio (10-20) Glucose (70-99) mg/dl POC Glucose 207 H 119 H (70-99) mg/dl Calcium (8.5-10.1) mg/dl Magnesium (1.8-2.4) mg/dl Medications Administered Current Inpatient Medications Acetaminophen (Acetaminophen 325 Mg Tab) 650 mg PO Q4H PRN PRN Reason: Pain or Fever Stop: 08/19/20 13:29 Albuterol (Albut/Ipratrop 3mg/0.5mg Neb 3 Ml Vial) 3 ml NEB Q4R PRN PRN Reason: Shortness Of Breath Or Wheezing Stop: 08/20/20 14:59 Carvedilol (Carvedilol 12.5 Mg Tab) 12.5 mg PO BID [facility] Stop: 08/19/20 20:59 Last Admin: 07/25/20 21:09 Dose: 12.5 mg Documented by: Dextrose (Dextrose 50% 50 Ml Syringe) 25 - 50 ml IV UD PRN; Protocol PRN Reason: Hypoglycemia Protocol Stop: 08/19/20 13:59 Duloxetine HCl (Duloxetine Hcl 60 Mg Cap) 60 mg PO BID [facility] Stop: 08/19/20 20:59 Last Admin: 07/25/20 21:33 Dose: 60 mg Documented by: Famotidine (Famotidine 20 Mg Tab) 20 mg PO BID [facility] Stop: 08/19/20 20:59 Last Admin: 07/25/20 21:33 Dose: 20 mg Documented by: Ferrous Sulfate (Ferrous Sulfate 325 Mg Tab) 325 mg PO QAM [facility] Stop: 08/20/20 08:59 Last Admin: 07/25/20 07:32 Dose: 325 mg Documented by: Furosemide (Furosemide 20 Mg Tab) 20 mg PO QAM [facility] Stop: 08/21/20 08:59 Last Admin: 07/25/20 07:33 Dose: 20 mg Documented by: Glucagon (Glucagon For Inj 1 Mg Vial) 1 mg IM UD PRN; Protocol PRN Reason: Hypoglycemia Protocol Stop: 08/19/20 13:59 Glucose (Glucose 40% Gel 15 Gm Tube) 15 - 30 gm PO UD PRN; Protocol PRN Reason: Hypoglycemia Protocol Stop: 08/19/20 13:59 Glucose (Glucose 10 Tabs/Tube) 4 - 8 tabs PO UD PRN; Protocol PRN Reason: Hypoglycemia Protocol Stop: 08/19/20 13:59 Furosemide 40 mg/ Syringe 4 mls @ 4 mls/min IV BID [facility] Stop: 08/19/20 20:59 Last Admin: 07/21/20 08:12 Dose: 4 mls/min Documented by: Ceftriaxone Sodium 2,000 mg/ (Dextrose) 70 mls @ 100 mls/hr IV Q24H [facility]; Protocol Stop: 07/27/20 16:59 Last Infusion: 07/25/20 17:43 Dose: Infused Documented by: Insulin Aspart (Insulin Aspart 100 Units/Ml 3 Ml Pen) 0 units SC ACHS [facility] Stop: 08/20/20 00:00 Last Admin: 07/25/20 21:17 Dose: 17 units Documented by: Insulin Glargine (Insulin Glargine Solostar 100 Units/Ml 3 Ml Pen) 35 units SC BID [facility] Stop: 08/20/20 20:59 Last Admin: 07/25/20 21:17 Dose: 35 units Documented by: Lactulose (Lactulose Syrup 20 Gm/30 Ml Udc) 20 gm PO TID [facility] Stop: 08/19/20 22:14 Last Admin: 07/25/20 21:10 Dose: 20 gm Documented by: Levothyroxine Sodium (Levothyroxine Sodium 175 Mcg Tablet) 175 mcg PO DAILYBB [facility] Stop: 08/20/20 06:29 Last Admin: 07/26/20 06:28 Dose: 175 mcg Documented by: Magnesium Chloride (Magnesium Chloride 64mg Delayed Rel Tab) 64 mg PO PM [facility] Stop: 08/19/20 20:59 Last Admin: 07/25/20 21:33 Dose: 64 mg Documented by: Miscellaneous ([place]: Order Awaiting Action) 1 ea N/A QS [facility] Stop: 08/19/20 15:59 Last Admin: 07/26/20 01:13 Dose: Not Given Documented by: Miscellaneous (Carbohydrates For Hypoglycemia ) 15 - 30 gm PO UD PRN PRN Reason: Hypoglycemia Treatment Stop: 08/19/20 13:59 Naloxone HCl (Naloxone Hcl 0.4 Mg/1 Ml Vial/Carp) 0.4 mg IV UD PRN PRN Reason: concern for overdose, RR<12 Stop: 08/20/20 18:24 Nortriptyline HCl (Nortriptyline Hcl 25 Mg Cap) 25 mg PO HS [facility] Stop: 08/19/20 20:59 Last Admin: 07/25/20 21:33 Dose: 25 mg Documented by: Oxycodone HCl (Oxycodone Hcl Ir 5 Mg Tab (Immediate Release)) 5 mg PO Q4H PRN PRN Reason: Breakthrough Pain Stop: 08/04/20 17:15 Last Admin: 07/26/20 06:29 Dose: 5 mg Documented by: Oxycodone HCl (Oxycodone Hcl Ir 5 Mg Tab (Immediate Release)) 15 mg PO QID [facility] Stop: 08/04/20 20:59 Last Admin: 07/25/20 21:08 Dose: 15 mg Documented by: Pantoprazole Sodium (Pantoprazole 40 Mg Tab) 40 mg PO DAILYBB [facility] Stop: 08/20/20 06:29 Last Admin: 07/26/20 06:31 Dose: 40 mg Documented by: Prednisone (Prednisone 20 Mg Tab) 40 mg PO DAILY [facility] Stop: 08/22/20 08:59 Last Admin: 07/25/20 07:33 Dose: 40 mg Documented by: Prochlorperazine (Prochlorperazine Maleate 5 Mg Tab) 5 mg PO TID PRN PRN Reason: Nausea Stop: 08/19/20 13:29 Rifaximin (Rifaximin 550 Mg Tablet) 550 mg PO BID [facility] Stop: 08/19/20 20:59 Last Admin: 07/25/20 21:33 Dose: 550 mg Documented by: Rivaroxaban (Rivaroxaban 20 Mg Tab) 20 mg PO QDD [facility] Stop: 08/19/20 16:29 Last Admin: 07/25/20 17:24 Dose: 20 mg Documented by: Spironolactone (Spironolactone 25 Mg Tab) 50 mg PO QAM [facility] Stop: 08/22/20 08:59 Last Admin: 07/25/20 07:34 Dose: 50 mg Documented by: Trazodone HCl (Trazodone Hcl 50 Mg Tab) 50 mg PO HS [facility] Stop: 08/19/20 20:59
[2020-07-26] MEDS: INSULIN ASPART 100 UNITS/ML 3 ML PEN SC SCH (08:00)
[2020-07-26] MEDS: SPIRONOLACTONE 25 MG TAB PO SCH (08:06)
[2020-07-26] MEDS: predniSONE 20 MG TAB PO SCH (08:06)
[2020-07-26] MEDS: carvediloL 12.5 MG TAB PO SCH (08:06)
[2020-07-26] MEDS: DULoxetine HCL 60 MG CAP PO SCH (08:06)
[2020-07-26] MEDS: FUROSEMIDE 20 MG TAB PO SCH (08:07)
[2020-07-26] MEDS: rifAXIMin 550 MG TABLET PO SCH (08:07)
[2020-07-26] MEDS: FAMOTIDINE 20 MG TAB PO SCH (08:07)
[2020-07-26] MEDS: LACTULOSE SYRUP 20 GM/30 ML UDC PO SCH (08:07)
[2020-07-26] MEDS: INSULIN GLARGINE SOLOSTAR 100 UNITS/ML 3 ML PEN SC SCH (08:07)
[2020-07-26] MEDS: FERROUS SULFATE 325 MG TAB PO SCH (08:07)
[2020-07-26 08:11] LABS: BUN Creatinine Ratio 21.9 (10-20); Calcium 8.4 mg/dl (8.5-10.1); Creatinine Clr Calc Pharmacy 113.6 ml/min; Est GFR (African American) 92.7; Magnesium 2.1 mg/dl (1.8-2.4); Potassium 3.8 mmol/L (3.5-5.1)
[2020-07-26] MEDS: oxyCODONE HCL IR 5 MG TAB (IMMEDIATE RELEASE) PO SCH (08:44)
--- NOTE | 2020-07-26 09:24 | Discharge Summary ---
Date of Service July 26, 2020 Admission HPI Per Admitting Provider Patient is a morbidly obese, noncompliant 54 yo female with PMHx including uncontrolled DM Type 2 with mcc insulin use, dyslipidemia, hypothyroidism, COPD, RIMA noncompliant with CPAP, HTN, GERD, Cirrhosis/MEEK, Bipolar I, and chronic drug dependence/narcotic use who presented to the ED via EMS for complaint of increased SOB and hypoxia. The patient woke up this morning and felt very SOB. When she checked her home O2, her sat was 85%. She typically wears 3L/min to bed but not during the day. She put her oxygen back on but was unable to get her sats up at home. She then called an ambulance. She has a chronic productive "smoker's" cough which has been unchanged. She does not some mid-chest tightness when coughing at times but no other chest pain. She is on Xarelto chronically for hx of DVT. She states that she 'broke her back' about 2 weeks ago. Per record review, it looks like she had an L spine compression fracture on 05/31/20 at which time she was in the ED here at [facility]. She does follow with pain management in [place]. She has recently been on Oxycodone 15 mg Q6h PRN at home along with Belbuca (buprenorphine) 150 mcg film BID. It was supposed to be increased to 600 mcg, but she hasn't started that dose yet. She states that last oxycodone she took was yesterday afternoon. She has not had any other significant cold symptoms, fever, abdominal pain, N/V/D/C. Appetite has been good. She has noted hematuria on and off since her back injury. She does typically take Lasix 20mg- 60 mg daily. She did not take her medication this morning. Since presentation, patient was noted to initially be hypoxic down to 88% on nasal cannula. She was placed on Oxymask at 5L/min and has been saturating well. Lab evaluation showed very slight anemia with Hgb 11.9. Renal function and electrolytes within norm/stable. Glucose elevated. She is on chronic insulin. Alk Phos was 199- chronically elevated. Other LFTs within norm/stable. Troponin negative. Serum protein levels low. UA was clear, no blood. CXR showed cardiomegaly with pulmonary vascular congestion with possible trace pleural effusions B/L. These images were reviewed by me today as well. Admission Exam Per Admitting Provider Constitutional: + morbidly obese and cooperative; no acute distress and no altered mental status Eyes: PERRL, conjunctivae normal, anicteric sclerae ENMT: external ear and nose normal, oropharynx normal Neck: trachea midline, no thyromegaly Respiratory: normal respiratory effort, + labored breathing, + cough (wet sounding) and able to speak in complete sentences; does not use accessory muscles, no audible wheezes and no nasal flaring Auscultation: + diminished lung sounds and + crackles (Note fine crackles in the B/L bases with coarse rales throughout lungs) Cardiovascular: Rate/Rhythm: regular rate and regular rhythm Distant heart sounds. Chronic appearing edema B/L LE. Nonpitting Gastrointestinal (Abdomen): Inspection/Auscultation: normal bowel sounds; abdomen not distended and no abdominal edema Percussion/Palpation: + abdomen tender (Mildly tender midline, pt says chronic from hernias) Musculoskeletal: Head/Neck/Chest: normocephalic and head atraumatic Skin: Chronic appearing brassy discoloration to the B/L LE Neurologic: PERRL, EOMI, accommodation nl, no face palsy, no dysarthria Psychiatric: A+Ox3, euthymic affect Principal Diagnosis Respiratory failure with hypoxia COPD exacerbation RIMA Morbid obesity Discharge Exam CONSTITUTIONAL: morbidly obese female now on RA in NAD EYES: normal conjunctivae, no scleral icterus ENT: external ear and nose normal, MMM RESPIRATORY: clear to auscultation bilaterally, diminished at bases, normal respiratory effort. No conversational dyspnea at rest. CARDIOVASCULAR: regular rate and rhythm, S1 and 2 heard without murmurs, gallops or rubs, no JVD, no peripheral edema GASTROINTESTINAL: normal bowel sounds, soft, protuberant, obese, nondistended. MUSCULOSKELETAL: strength 5/5 throughout, generalized deconditioning physically, head is normocephalic and atraumatic, moves extremities SKIN: warm and dry NEUROLOGIC: CN 2-12 grossly intact, normal cognition, normal speech, no tremor, moves extremities spontaneously PSYCHIATRIC: alert cooperative and oriented to person, place and time. Discharge Data Allergies Allergy/AdvReac Type Severity Reaction Status Date / Time Iodinated Contrast Media Allergy Intermediate hives-PT Verified 07/20/20 09:44 DENIES SEE NOTE adhesive Allergy Mild RED RASH Verified 07/20/20 09:44 CAUSED BY PAPER TAPE vancomycin AdvReac Severe renal Verified 07/20/20 09:44 failure, required dialysis x 3 MONTHS acetaminophen AdvReac Intermediate Liver Verified 07/20/20 09:44 problems. alprazolam AdvReac Intermediate MAKES Verified 07/20/20 09:44 LOOPY,DO AND SAY SILLY THINGS codeine AdvReac Intermediate UPSET Verified 07/20/20 09:44 STOMACH haloperidol AdvReac Intermediate nervous Verified 07/20/20 09:44 and anxious metformin AdvReac Intermediate HANDS FEET Verified 07/20/20 09:44 FACE NUMB methylparaben AdvReac Intermediate FLUID Verified 07/20/20 09:44 RETENTION morphine AdvReac Intermediate SWELLING Verified 07/20/20 09:44 LEGS AND FEET oxymorphone AdvReac Intermediate FLUID Verified 07/20/20 09:44 RETENTION pregabalin AdvReac Intermediate Aphasia/Speech Verified 07/20/20 09:44 impairments gabapentin AdvReac Mild Aphasia/Speech Verified 07/20/20 09:44 impairments Sulfa (Sulfonamide AdvReac Mild GI SYMPTOMS Verified 07/20/20 09:44 Antibiotics) Consultations 07/20/20 11:08 ED Decision to Admit Stat Ordered Studies 07/20/20 13:30 US abdomen ltd ascites Urgent IMPRESSION: Cirrhotic morphology of the liver without ascites. Hospital Course (1) Respiratory failure with hypoxia: Likely related to COPD exacerbation and with pulmonary congestion, diastolic heart failure may have also been playing a role but she is now euvolemic. Intravenous lasix was stopped and converted to her home oral Lasix. Per discussion with patient's caregiver, patient has furosemide as needed however she has not been using furosemide at home for some time. Discussed to take 20 mg on daily basis. Also discussed to monitor weight daily after DC. Obese body habitus and untreated RIMA definitely contributing to this issue. Heavy use of opioids also contributing somewhat to this problem. Responded well to current therapy. Weaned off oxygen at rest. Pt uses O2 3L NC at night at baseline. 2 step obtained on RA at rest but 4L w/ ambulation Patient would likely benefit from pulmonology outpatient follow-up, and outpatient sleep study. (2) COPD exacerbation: Steroids and Rocephin. No wheezing and improvement in respiratory status. Bronchodilators PRN. (3) Acute diastolic CHF (congestive heart failure): Currently compensated. Responded well to diuresis. Patient is feeling much better. Echo limited and could not assess valves but grossly normal EF. Cont with PO home Lasix. Low salt diet. Daily weights. Strict I/Os. 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 Appears compensated. Cont Xifaxan and lactulose per home regimen. Cont aldactone but will increase from 25 to 50mg and keep Lasix dose at 20mg daily to achieve 5:2 ratio. Stop scheduled potassium supplementation. Monitor closely for any rise in potassium as outpatient. (5) RIMA (obstructive sleep apnea): Continue O2 overnight as above. Patient typically uses nasal cannula at bedtime. BIPAP qHS as tolerated. She is currently not tolerating this. Patient reports having a surgical procedure for RIMA in the past, in the 90s. Would recommend to have sleep study done again as patient may benefit from CPAP/BiPAP at home. Currently does not have any at home, and only uses nasal cannula. (6) DM2 (diabetes mellitus, type 2): Basal/bolus insulin while admitted and increased while on steroids. (7) Paroxysmal A-fib: Cont Xarelto and carvedilol per home regimen. (8) Compression fx, lumbar spine: opioid dependent. (9) Drug-seeking behavior: asking for more pain medication. Oxy 5mg IR for breakthrough offered. Place CO2 monitor with patient's current respiratory status. (10) Hypothyroid: Continue levothyroxine per home regimen. (11) Morbid obesity due to excess calories: (12) DVT prophylaxis: Xarelto Full Code Dispo-to home w/ caregiver Total Time Total Time Spent Total Time Spent (In Minutes): 40 Total Time Includes: Examination of the Patient, Discharge Planning and Medication Reconciliation Discharge Plan Discharge Items Patient Disposition: Home - Self-Care Reason For Visit: HYPOXIA Discharge Diagnosis: Respiratory failure with hypoxia COPD exacerbation RIMA Morbid obesity Activity: Per Instructions section Non-emergency contact: Primary Care Provider Call non-emergency contact if: you have any medication questions and your symptoms worsen Follow-up/Referrals: Dewey Mcfadden DO [Primary Care Provider] - (Date & Time 07/30/2020 11:00 AM Provider Dewey Mcfadden DO [facility] ) Diet: Carb Consistent or DM2 and Low Sodium (2gm) Addtl Attending Provider Instructions: Follow-up with your primary care doctor, the appointment is scheduled for you for July 30. Take furosemide 20 mg daily. Your dose of spironolactone was increased to 50 mg daily. Do not take your potassium supplement at this time. Spironolactone may increase your potassium level. Weigh yourself daily, and if you notice increase in weight by 3 to 5 pounds overnight, you may need additional furosemide. Discuss this with your primary care physician. Finish a course of prednisone as prescribed. It is strongly recommended that you lose weight, and stick to a low-sodium diet. You may also need sleep study and follow-up with switchbox assembler (lung doctor). Pending Studies at Discharge: No Stand-Alone Forms: [facility] Medications and DC Order Prescriptions: New spironolactone 25 mg Tablet 50 mg PO QAM Qty: 14 RF: 0 prednisone 20 mg Tablet 40 mg PO DAILY Qty: 2 RF: 0 Continued Basaglar KwikPen U-100 Insulin 100 unit/mL (3 mL) insulin pen 120 unit SUBCUT BID RF: 0 pantoprazole 40 mg tablet,delayed release (DR/EC) 40 mg PO DAILYBB RF: 0 ferrous sulfate 325 mg (65 mg iron) tablet 325 mg PO QAM RF: 0 albuterol sulfate [Ventolin HFA] 90 mcg/actuation HFA aerosol inhaler 2 puff inhalation Q4H PRN (Reason: Shortness Of Breath) RF: 0 trazodone 50 mg tablet 50 mg PO HS RF: 0 albuterol sulfate 2.5 mg /3 mL (0.083 %) solution for nebulization 2.5 mg inhalation Q4 PRN (Reason: Shortness Of Breath) RF: 0 levothyroxine 175 mcg tablet 175 mcg PO DAILY RF: 0 prochlorperazine maleate [Compazine] 5 mg tablet 5 mg PO TID PRN (Reason: Nausea) RF: 0 insulin aspart U-100 [Novolog Flexpen U-100 Insulin] 100 unit/mL (3 mL) insulin pen 15 unit SUBCUT TIDM RF: 0 duloxetine [Cymbalta] 60 mg capsule,delayed release(DR/EC) 60 mg PO BID RF: 0 Xarelto 20 mg tablet 20 mg PO PM RF: 0 furosemide [Lasix] 20 mg Tablet 20 - 60 mg PO QAM PRN (Reason: Edema) RF: 0 carvedilol 12.5 mg Tablet 12.5 mg PO BID RF: 0 nortriptyline [Pamelor] 25 mg Capsule 25 mg PO HS RF: 0 Trulicity 1.5 mg/0.5 mL pen injector 1.5 mg SUBCUT WK RF: 0 Xifaxan 550 mg Tablet 550 mg PO BID Qty: 60 RF: 0 famotidine 20 mg tablet 20 mg PO BID RF: 0 magnesium chloride 64 mg tablet,delayed release (DR/EC) 64 mg PO PM RF: 0 lactulose [Constulose] 10 gram/15 mL solution 30 ml PO QID PRN (Reason: Constipation) RF: 0 oxycodone 15 mg tablet 15 mg PO QID PRN (Reason: Pain) RF: 0 Belbuca 150 mcg film 600 mcg BUCCAL BID RF: 0 Changed spironolactone [Aldactone] 25 mg tablet 50 mg PO HS Qty: 0 RF: 0 Discontinued potassium chloride 10 mEq capsule, extended release 10 meq PO BID RF: 0 Discharge Orders: Discharge Order (Routine); Ordered 07/26/20 Ordered By: Obed Luo/Other Patient Handouts: Managing Type 2 Diabetes Admission Data Admit Date/Time: 07/20/20 11:14 Attending Provider: Obed Bill Admit Provider: Valencia Carrillo Primary Care Provider: Dewey Mcfadden Other Providers: Valencia Carrillo
== END 2020-07-26 10:30 | disposition home or self-care (01) | DRG 291 ==
LOC: ED 08:47 → 2S 11:14 → SUATTDRO 11:14 → 2S 13:08

== ENCOUNTER 2020-11-03 04:41 | Inpatient (IN) ==
[2020-11-03 05:11] LABS: Basophils # (auto) 0.04 K/uL (0-0.2); Basophils % (auto) 0.4 %; Eosinophils # (auto) 0.18 K/uL (0-0.5); Eosinophils % (auto) 1.8 %; Hematocrit (blood only) 42.7 % (37-47); Hemoglobin 15.2 g/dL (12.0-16.0); Immature Granulocytes # (auto) 0.02 K/uL (0.00-0.02); Immature Granulocytes % (auto) 0.2 %; Lymphocytes # (auto) 3.06 K/uL (1.2-3.4); Lymphocytes % (auto) 30.8 %; Mean Corpuscular Hemoglobin 35.9 pg (25-34); Mean Corpuscular Hgb Conc 35.6 g/dL (32-36); Mean Corpuscular Volume 100.9 fL (80-100); Mean Platelet Volume 9.5 fL (7.4-10.4); Monocytes # (auto) 0.95 K/uL (0.11-0.59); Monocytes % (auto) 9.5 %; Neutrophils % (auto) 57.3 %; Platelet Count 133 K/uL (130-400); RDW Coefficient of Variation 15.3 % (11.5-14.5); RDW Standard Deviation 55.1 fL (36.4-46.3); Red Blood Count 4.23 M/uL (4.2-5.4); White Blood Count 9.95 K/uL (4.8-10.8)
--- NOTE | 2020-11-03 05:12 | Emergency Department Note ---
Impression & Plan Acute hepatic encephalopathy ED Provider Note NAME: EMANUEL MOSS AGE: 54 SEX: F ARRIVES VIA: Family Vehicle INFORMANT: [Patient] ED PROVIDER(S): Yamilex Morejon DO CHIEF COMPLAINT: Altered mental status PLAN: Disposition: Evaluation for admission by the [facility] service Condition: Stable MEDICAL DECISION MAKING: This is a 54-year-old female patient who presents to the emergency department wi th a longstanding health history and acute onset altered mental status. The patient's caregiver explains that she was found with an altered mental status this morning as she was trying to go to the bathroom in the hallway. Patient's blood sugar was normal here in the emergency department. The patient's ammonia level is elevated along with other LFTs. This is consistent with previous episodes of hepatic encephalopathy. I discussed the case with the [facility] and they will evaluate for further management. Triage Nursing notes reviewed and agree with them. [Additional history obtained from] the caregiver who gave nursing staff a history before he left the ER after dropping her off. [Prior medical records reviewed] Vital Signs: reviewed and remarkable for tachycardia Differential diagnosis: Intracranial process, UTI, drug overdose, hepatic encephalopathy Diagnostics interpreted by me: ECG: Normal sinus rhythm at a rate of 100 with a first-degree AV block. There is no ST segment elevation or signs of ischemia. There is no ectopy. Cardiac Monitoring: Sinus tachycardia at a rate of 102. Laboratory studies: [See below] [] Imaging studies: As per my interpretation Chest x-ray: Cardiomegaly with no obvious opacities or consolidations HPI: 54/F arrives for evaluation of altered mental status. The patient awoke from sleep this morning and got up to go to the bathroom in the middle of the hallway. Her printing grey cloth tender brought her here to the emergency department for evaluation. Upon presentation to the emergency department, the patient is awake but not oriented to place or time. ROS: See above HPI for pertinent positives & negatives. A total of [10] systems reviewed and were otherwise negative. PAST MEDICAL HISTORY:[See Below] PAST SURGICAL HISTORY:[See Below] FAMILY HISTORY:[See Below] SOCIAL HISTORY:[See Below] HOME MEDICATIONS:See list ALLERGIES:See list VITALS:[See Below] PHYSICAL EXAMINATION: HEENT: Head - normocephalic and atraumatic Pupils are equal, round, and reactive to light. Extraocular eye muscles are intact, and sclera are anicteric. Nose - moist nasal mucosa without discharge. Mouth - moist buccal mucosa. Oropharynx is nonerythematous and there is no tonsillar exudate or edema noted. Neck: Supple; no cervical lymphadenopathy Heart: Regular rate and rhythm. There is a normal S1 and S2 with no murmurs, clicks, or gallops appreciated. Lungs: Clear to auscultation bilaterally with no wheezes, rales, or rhonchi. Abdomen: Soft, completely nontender, nondistended, with good bowel sounds. There are no palpable pulsatile masses or hepatosplenomegaly. There is no guarding, rigidity, or rebound noted. Extremities: No evidence of cyanosis, clubbing, or edema. There are easily palpable peripheral pulses. Skin: warm and dry with good turgor and no rashes. Neuro: The patient is awake and alert but not oriented to day or time. ED COURSE: Times/Reassessments: 0455: Patient was evaluated in room C10. A complete history and physical was performed. An IV lock was established and labs are drawn as above. An order was placed for continuous cardiac monitoring. The patient is in a sinus tachycardia at a rate of 102. The patient had a twelve-lead EKG as described above. Upon repeat evaluation of the patient, she was asleep. Vital signs were stable. I discussed the case with Dr. Roy and he will evaluate the patient for further care. Yamilex Morejon DO Past Med/Surg History Medical History Abdominal wall cellulitis Acute hepatic encephalopathy Bowel obstruction Cauda equina compression Cellulitis and abscess of trunk (Unknown) Chronic low back pain COPD, group D, by GOLD 2017 classification Deep vein blood clot of left lower extremity RIGHT AND LEFT LEG AND THEN MOVED LUNG - 2001 Diabetes Diabetic neuropathy (01/04/11) Fracture of fourth metatarsal bone of left foot Gastritis Hyperammonemia Hypokalemia Hypomagnesemia Incarcerated ventral hernia Kidney stone HX OF AND HAD LITHOTRIPSY RIMA (obstructive sleep apnea) HX OF AND NO CURRENT PROBLEM Paroxysmal A-fib 2013 on Xarelto Pyelonephritis Rectal bleeding Septic shock Severe sepsis Splenomegaly, not elsewhere classified Supratherapeutic INR UTI (urinary tract infection) Surgical History History of appendectomy History of arthroplasty of right knee Hx of lithotripsy Hx of ventral hernia repair S/P cholecystectomy S/P sinus surgery S/P MARLEE (total abdominal hysterectomy) Family History Father Cancer Liver Brother Kidney disease Renal failure Cirrhosis Brother Cirrhosis Other Family history non-contributory Social History Smoking Status: Current every day smoker Tobacco Type: Cigarettes Cigarettes Per Day: 1/2 PPD; Second Hand Exposure: Yes; Hx Alcohol Use: No Hx Substance Use: No Preferred Language: Czech Communication Ability: Effective Jboss Architect Required: No Beliefs That Will Affect Care: None marital status: Current Living Situation: Other Current Living Situation Comment: friend/caregiver herbert vaughan current occupational status: disabled Feels Safe at Home: Yes Assistive Devices: None Allergies Allergies Allergy/AdvReac Type Severity Reaction Status Date / Time Iodinated Contrast Media Allergy Intermediate hives-PT Verified 08/22/20 19:01 DENIES SEE NOTE adhesive Allergy Mild RED RASH Verified 08/22/20 19:01 CAUSED BY PAPER TAPE vancomycin AdvReac Severe renal Verified 08/22/20 19:01 failure, required dialysis x 3 MONTHS acetaminophen AdvReac Intermediate Liver Verified 08/22/20 19:01 problems. alprazolam AdvReac Intermediate MAKES Verified 08/22/20 19:01 LOOPY,DO AND SAY SILLY THINGS codeine AdvReac Intermediate UPSET Verified 08/22/20 19:01 STOMACH haloperidol AdvReac Intermediate nervous Verified 08/22/20 19:01 and anxious metformin AdvReac Intermediate HANDS FEET Verified 08/22/20 19:01 FACE NUMB methylparaben AdvReac Intermediate FLUID Verified 08/22/20 19:01 RETENTION morphine AdvReac Intermediate SWELLING Verified 08/22/20 19:01 LEGS AND FEET oxymorphone AdvReac Intermediate FLUID Verified 08/22/20 19:01 RETENTION pregabalin AdvReac Intermediate Aphasia/Speech Verified 08/22/20 19:01 impairments gabapentin AdvReac Mild Aphasia/Speech Verified 08/22/20 19:01 impairments Sulfa (Sulfonamide AdvReac Mild GI SYMPTOMS Verified 08/22/20 19:01 Antibiotics) Home Meds Home Medications Medication Instructions Recorded Confirmed Xarelto 20 mg PO PM 03/12/19 08/22/20 duloxetine [Cymbalta] 60 mg PO BID 03/12/19 08/22/20 furosemide [Lasix] 20 - 60 mg PO QAM PRN 03/12/19 08/22/20 insulin aspart U-100 [Novolog 15 unit SUBCUT TIDM 03/12/19 08/22/20 Flexpen U-100 Insulin] prochlorperazine maleate 5 mg PO TID PRN 03/12/19 08/22/20 [Compazine] carvedilol 12.5 mg PO BID 03/21/19 08/22/20 nortriptyline [Pamelor] 25 mg PO HS 03/21/19 08/22/20 Trulicity 1.5 mg SUBCUT WK 07/13/19 08/22/20 Basaglar KwikPen U-100 Insulin 120 unit SUBCUT BID 08/01/19 08/22/20 albuterol sulfate [Ventolin HFA] 2 puff INHALATION Q4H PRN 08/01/19 08/22/20 ferrous sulfate 325 mg PO QAM 08/01/19 08/22/20 pantoprazole 40 mg PO DAILYBB 08/01/19 08/22/20 trazodone 50 mg PO HS 08/29/19 08/22/20 famotidine 20 mg PO BID 09/17/19 08/22/20 albuterol sulfate 2.5 mg INHALATION Q4 PRN 10/04/19 08/22/20 magnesium chloride 64 mg PO PM 10/05/19 08/22/20 lactulose [Constulose] 30 ml PO QID PRN 10/11/19 08/22/20 levothyroxine 175 mcg PO DAILY 11/20/19 08/22/20 oxycodone 15 mg PO QID PRN 02/23/20 08/22/20 Belbuca 600 mcg BUCCAL BID 07/20/20 08/22/20 ibuprofen [Advil] 800 mg PO Q6H PRN 08/22/20 08/22/20 spironolactone [Aldactone] 50 mg PO BID 08/22/20 08/22/20 Previous Rx's Medication Instructions Recorded Xifaxan 550 mg PO BID #60 tab 08/15/19 prednisone 40 mg PO DAILY #2 tab 07/26/20 Results & Data (ED) Vital Signs Vital Signs - 24 hr 11/03/20 04:45 11/03/20 05:01 Temperature 36.6 C Temperature Source Oral Pulse Rate 109 H Respiratory Rate 16 Respiratory Effort / Characteristics Non-Labored Spontaneous Respiratory Depth Normal Respiratory Pattern Regular Blood Pressure 145/82 H Blood Pressure Mean 103 Pulse Oximetry 98 98 Oxygen Delivery Method Room Air Room Air Sepsis Recent Fever Within 48 Hours No Sepsis New/Unexplained Change in Mental Status No Sepsis Action Taken by Nursing No Action Required Laboratory Data Result diagrams: 11/03/20 05:00 11/03/20 05:00 Lab Results 11/03/20 11/03/20 11/03/20 Range/Units 04:57 05:00 05:00 WBC 9.95 (4.8-10.8) K/uL RBC 4.23 (4.2-5.4) M/uL Hgb 15.2 (12.0-16.0) g/dL Hct 42.7 (37-47) % MCV 100.9 H (80-100) fL MCH 35.9 H (25-34) pg MCHC 35.6 (32-36) g/dL RDW Std Deviation 55.1 H (36.4-46.3) fL RDW Coeff of Mari 15.3 H (11.5-14.5) % Plt Count 133 (130-400) K/uL MPV 9.5 (7.4-10.4) fL Immature Gran % (Auto) 0.2 % Neut % (Auto) 57.3 % Lymph % (Auto) 30.8 % Shannon % (Auto) 9.5 % Eos % (Auto) 1.8 % Baso % (Auto) 0.4 % Neut # (Auto) 5.70 (1.4-6.5) K/uL Lymph # (Auto) 3.06 (1.2-3.4) K/uL Shannon # (Auto) 0.95 H (0.11-0.59) K/uL Eos # (Auto) 0.18 (0-0.5) K/uL Baso # (Auto) 0.04 (0-0.2) K/uL Immature Gran # (Auto) 0.02 (0.00-0.02) K/uL Sodium 141 (136-145) mmol/L Potassium 3.3 L (3.5-5.1) mmol/L Chloride 108 H (98-107) mmol/L Carbon Dioxide 29 (21-32) mmol/L Anion Gap 4.0 (3-11) BUN 7 (7-18) mg/dl Creatinine 0.91 (0.6-1.2) mg/dl Est Cr Clr Drug Dosing 96.7 ml/min Est GFR ( Amer) 81.7 ml/min Est GFR (Non-Af Amer) 70.5 ml/min BUN/Creatinine Ratio 7.2 L (10-20) Glucose 143 H (70-99) mg/dl POC Glucose 137 H (70-99) mg/dl Calcium 8.8 (8.5-10.1) mg/dl Magnesium 1.6 L (1.8-2.4) mg/dl Total Bilirubin 2.9 H (0.2-1) mg/dl AST 33 (15-37) U/L ALT 24 (12-78) U/L Alkaline Phosphatase 200 H (45-117) U/L Ammonia (11-32) umol/L Total Protein 7.4 (6.4-8.2) gm/dl Albumin 2.8 L (3.4-5.0) gm/dl Globulin 4.6 H (2.5-4.0) gm/dl Albumin/Globulin Ratio 0.6 L (0.9-2) TSH 2.700 (0.300-4.500) uIu/ml COVID-19 Eval Order 11/03/20 11/03/20 Range/Units 05:00 06:19 WBC (4.8-10.8) K/uL RBC (4.2-5.4) M/uL Hgb (12.0-16.0) g/dL Hct (37-47) % MCV (80-100) fL MCH (25-34) pg MCHC (32-36) g/dL RDW Std Deviation (36.4-46.3) fL RDW Coeff of Mari (11.5-14.5) % Plt Count (130-400) K/uL MPV (7.4-10.4) fL Immature Gran % (Auto) % Neut % (Auto) % Lymph % (Auto) % Shannon % (Auto) % Eos % (Auto) % Baso % (Auto) % Neut # (Auto) (1.4-6.5) K/uL Lymph # (Auto) (1.2-3.4) K/uL Shannon # (Auto) (0.11-0.59) K/uL Eos # (Auto) (0-0.5) K/uL Baso # (Auto) (0-0.2) K/uL Immature Gran # (Auto) (0.00-0.02) K/uL Sodium (136-145) mmol/L Potassium (3.5-5.1) mmol/L Chloride (98-107) mmol/L Carbon Dioxide (21-32) mmol/L Anion Gap (3-11) BUN (7-18) mg/dl Creatinine (0.6-1.2) mg/dl Est Cr Clr Drug Dosing ml/min Est GFR ( Amer) ml/min Est GFR (Non-Af Amer) ml/min BUN/Creatinine Ratio (10-20) Glucose (70-99) mg/dl POC Glucose (70-99) mg/dl Calcium (8.5-10.1) mg/dl Magnesium (1.8-2.4) mg/dl Total Bilirubin (0.2-1) mg/dl AST (15-37) U/L ALT (12-78) U/L Alkaline Phosphatase (45-117) U/L Ammonia 76.0 H (11-32) umol/L Total Protein (6.4-8.2) gm/dl Albumin (3.4-5.0) gm/dl Globulin (2.5-4.0) gm/dl Albumin/Globulin Ratio (0.9-2) TSH (0.300-4.500) uIu/ml COVID-19 Eval Order Covid19 at [facility] Discharge Plan Visit Data Chief Complaint: Abnormal Labs/Diagnostic Testing Stated Complaint: [facility] ED Provider: Yamilex Morejon Discharge Problem: Acute hepatic encephalopathy Forms Stand Alone Forms: My [facility] Prescriptions Prescriptions: No Action Basaglar KwikPen U-100 Insulin 100 unit/mL (3 mL) insulin pen 120 unit SUBCUT BID RF: 0 pantoprazole 40 mg tablet,delayed release (DR/EC) 40 mg PO DAILYBB RF: 0 ferrous sulfate 325 mg (65 mg iron) tablet 325 mg PO QAM RF: 0 albuterol sulfate [Ventolin HFA] 90 mcg/actuation HFA aerosol inhaler 2 puff inhalation Q4H PRN (Reason: Shortness Of Breath) RF: 0 trazodone 50 mg tablet 50 mg PO HS RF: 0 albuterol sulfate 2.5 mg /3 mL (0.083 %) solution for nebulization 2.5 mg inhalation Q4 PRN (Reason: Shortness Of Breath) RF: 0 levothyroxine 175 mcg tablet 175 mcg PO DAILY RF: 0 prochlorperazine maleate [Compazine] 5 mg tablet 5 mg PO TID PRN (Reason: Nausea) RF: 0 insulin aspart U-100 [Novolog Flexpen U-100 Insulin] 100 unit/mL (3 mL) insulin pen 15 unit SUBCUT TIDM RF: 0 duloxetine [Cymbalta] 60 mg capsule,delayed release(DR/EC) 60 mg PO BID RF: 0 Xarelto 20 mg tablet 20 mg PO PM RF: 0 furosemide [Lasix] 20 mg Tablet 20 - 60 mg PO QAM PRN (Reason: Edema) RF: 0 carvedilol 12.5 mg Tablet 12.5 mg PO BID RF: 0 nortriptyline [Pamelor] 25 mg Capsule 25 mg PO HS RF: 0 Trulicity 1.5 mg/0.5 mL pen injector 1.5 mg SUBCUT WK RF: 0 Xifaxan 550 mg Tablet 550 mg PO BID Qty: 60 RF: 0 famotidine 20 mg tablet 20 mg PO BID RF: 0 magnesium chloride 64 mg tablet,delayed release (DR/EC) 64 mg PO PM RF: 0 lactulose [Constulose] 10 gram/15 mL solution 30 ml PO QID PRN (Reason: Constipation) RF: 0 oxycodone 15 mg tablet 15 mg PO QID PRN (Reason: Pain) RF: 0 Belbuca 150 mcg film 600 mcg BUCCAL BID RF: 0 prednisone 20 mg Tablet 40 mg PO DAILY Qty: 2 RF: 0 spironolactone [Aldactone] 25 mg tablet 50 mg PO BID RF: 0 ibuprofen [Advil] 200 mg Tablet 800 mg PO Q6H PRN (Reason: Pain) RF: 0 Referrals Referrals: Dewey Mcfadden DO [Primary Care Provider] -
[2020-11-03 05:29] LABS: Albumin Level 2.8 gm/dl (3.4-5.0); BUN Creatinine Ratio 7.2 (10-20); Calcium 8.8 mg/dl (8.5-10.1); Creatinine Clr Calc Pharmacy 96.7 ml/min; Est GFR (African American) 81.7 ml/min; Est GFR (Non-African American) 70.5 ml/min; Magnesium 1.6 mg/dl (1.8-2.4); Potassium 3.3 mmol/L (3.5-5.1)
[2020-11-03 05:40] LABS: Albumin Globulin Ratio 0.6 (0.9-2); Bilirubin,Total 2.9 mg/dl (0.2-1); Globulin 4.6 gm/dl (2.5-4.0); Thyroid Stimulating Hormone 2.7 uIu/ml (0.300-4.500); Total Protein 7.4 gm/dl (6.4-8.2)
[2020-11-03] MEDS ORDERED: MAGNESIUM SULFATE / D5W 1 GM/100 ML BAG IV STA (06:57)
[2020-11-03] MEDS ORDERED: POTASSIUM CHLORIDE 20 MEQ/15 ML UDC PO STA (06:57)
--- NOTE | 2020-11-03 06:58 | XRay Report ---
XR chest 1V portable CLINICAL HISTORY: weakness COMPARISON STUDY: 08/22/2020 FINDINGS: The cardiac and mediastinal contours are normal. There is no evidence of focal pulmonary co nsolidation. There is no evidence of failure. No pleural effusions are visualized.[ IMPRESSION: No active disease in the chest. ACT 112: Negative or not required by law. Electronically signed by: Romie Lincoln M.D. 11/03/2020 6:57 AM
[2020-11-03] MEDS ORDERED: LACTULOSE SYRUP 20 GM/30 ML UDC ONE (07:22)
--- NOTE | 2020-11-03 07:33 | CT Scan Report ---
CT SCAN OF THE ABDOMEN AND PELVIS WITHOUT CONTRAST CLINICAL HISTORY: abdominal pain, cirrhosis COMPARISON STUDY: August 2019 TECHNIQUE: CT scan of the abdomen and pelvis was performed from the lung bases to the proximal femurs . Images are reviewed in the axial, sagittal, and coronal planes. IV contrast was not administered fo r this examination. A dose lowering technique was utilized adhering to the principles of ALARA. CT DOSE: 1823.13 mGy.cm FINDINGS: Lower chest: There are mild basilar atelectatic changes. Liver: The liver has a nodular serosal surface consistent with cirrhosis. There is hepatic steatosis. Gallbladder: Surgically absent Spleen: Minimally enlarged measuring 13 cm Pancreas: Unremarkable. Adrenal glands: There is stable mild left adrenal gland thickening. Kidneys: There is a nonobstructing right renal calculus. There is no hydronephrosis. Bowel: There are no transition zones to indicate bowel obstruction. There is no evidence of acute div erticulitis. By history the appendix is surgically absent. Peritoneum: There is no intraperitoneal free air or abdominal ascites. Vasculature: The abdominal aorta is normal in course and caliber. Adenopathy: There are prominent lymph nodes in the gastrohepatic ligament as well as scattered mildly prominent retroperitoneal lymph nodes. While nonspecific the findings are likely secondary to hepato cellular disease. These remain unchanged. Pelvic viscera: The uterus appears surgically absent Skeletal structures: There are postsurgical changes in the anterior abdominal wall. There is mild abd ominal wall edema. There is an L1 burst fracture with mild retropulsion which was not present on the prior study. There is multilevel spinal stenosis. The study is limited from a technical standpoint secondary to morbid obesity and motion degradation. IMPRESSION: 1. Hepatic steatosis 2. Hepatic cirrhosis and mild splenomegaly 3. No evidence of bowel obstruction. No evidence of free air 4. Surgically absent appendix. No evidence of acute diverticulitis 5. Prominent lymph nodes likely secondary to hepatocellular disease 6. Interval development of an L1 burst fracture with mild retropulsion. Multilevel spinal stenosis wi thin the lumbar spine 7. Nonobstructing right renal calculus 8. Motion degraded study. ACT 112: Negative or not required by law. Electronically signed by: Romie Lincoln M.D. 11/03/2020 7:32 AM
[2020-11-03] MEDS: LACTULOSE SYRUP 30 GM/45 ML UDP PO SCH ×5 (07:37→20:40)
[2020-11-03 07:55] LABS: Base Excess ABG 0.3 mEq/L (-9-1.8); HCO3 ABG 24 mmol/L (19-24); PCO2 ABG 34 mmHg (35-46); PO2 ABG 68 mmHg (80-95); pH ABG 7.46 (7.35-7.45)
[2020-11-03 07:57] LABS: Allen Test Pos (Pos)
[2020-11-03] MEDS ORDERED: NITROGLYCERIN SL 0.4 MG/TAB TAB SL PRN (08:51)
[2020-11-03] MEDS ORDERED: CEFEPIME CONSULT ACTIVE PRN (08:55)
[2020-11-03] MEDS ORDERED: PHARMACY GLYCEMIC MGMT CONSULT PRN (08:57)
[2020-11-03] MEDS ORDERED: ALBUTEROL 0.083% NEBU SOLN 3 ML VIAL INH PRN (09:00)
[2020-11-03] MEDS ORDERED: CEFEPIME 2,000 MG in SYRINGE 0 ML IV SCH (09:00)
[2020-11-03] MEDS ORDERED: MAGNESIUM SULFATE / D5W 1 GM/100 ML BAG IV ONE (09:00)
[2020-11-03] MEDS ORDERED: GLUCOSE 10 TABS/TUBE PO PRN (09:00)
[2020-11-03] MEDS ORDERED: ALBUTEROL HFA 8 GM INHALER INH PRN (09:00)
[2020-11-03] MEDS ORDERED: DEXTROSE 50% 50 ML SYRINGE IV PRN (09:00)
[2020-11-03] MEDS ORDERED: GLUCAGON FOR INJ 1 MG VIAL IM PRN (09:00)
[2020-11-03] MEDS ORDERED: GLUCOSE 40% GEL 15 GM TUBE PO PRN (09:00)
[2020-11-03] MEDS: SODIUM CHLORIDE 0.9% 1000ML 1,000 ML IV SCH (09:29)
[2020-11-03] MEDS: LEVOTHYROXINE SODIUM 175 MCG TABLET PO SCH (09:56)
[2020-11-03] MEDS: FAMOTIDINE 20 MG TAB PO SCH ×2 (09:56→20:24)
[2020-11-03] MEDS: DULoxetine HCL 60 MG CAP PO SCH ×2 (09:56→20:24)
[2020-11-03] MEDS: FERROUS SULFATE 325 MG TAB PO SCH (09:56)
[2020-11-03] MEDS: INSULIN ASPART 100 UNITS/ML 3 ML PEN SC SCH ×3 (09:58→17:05)
[2020-11-03] MEDS: rifAXIMin 550 MG TABLET PO SCH ×2 (10:08→20:24)
[2020-11-03] MEDS: carvediloL 12.5 MG TAB PO SCH ×2 (10:08→20:24)
[2020-11-03 10:23] LABS: Appearance Urine Clear (Clear); Bacteria Urine Automated Negative (Negative); Bilirubin Urine Negative (Negative); Blood Urine 2+ (Negative); Color Urine Dark Yellow; Glucose Urine UA Negative (Negative); Ketones Urine Negative (Negative); Leukocyte Esterase Urine Negative (Negative); Nitrite Urine Negative (Negative); Protein Urine Trace (Negative); RBC Urine Automated >30 /hpf (0-4); Specific Gravity Urine 1.013 (1.000-1.030); Urobilinogen Urine Negative (Negative)
--- NOTE | 2020-11-03 10:57 | Gastrointestinal Consultation ---
Date of Consultation November 03, 2020 Assessment & Plan (1) Acute hepatic encephalopathy: 54 year old female with chronic comorbidities, medical noncompliance, MEEK admitted w/ AMS. MELD 12 Infectious work up Please arrange chest xr, urine culture, blood cultures ABD US - diagnostic paracentesis if fluid is present Lactulose 30 gm QID Xifaxin 550 mg BID Check urine toxicology Monitor for any s/s of GIB Thank you for allowing us to participate in the care of this patient. Please call with any acute changes, questions or concerns. Please see addendum below with additional recommendation from my supervising physician. Supervising Physician Co-Signing Physician Notes I have seen and examined the patient and discussed the management with GILDA Nogueira. Consult for hepatic encephalopathy. PE - obese female in nad, HEENT - perrla, no scleral icterus, abd - obese soft nt nd MELD is 10 driven by bili Agree with infectious rule out to workup her confusion Xifaxan, lactulose- could increase to q 4 hours if needed. History of Present Illness Reason for Consultation: abd pain, hepatic encephalopathy Requesting Physician: Gera Attending Physician: Dali Boss MD History of Present Illness 53 year old female w/ history of obesity, T2DM, dyslipidemia, hypothyroidism, COPD, RIMA noncompliant with CPAP, HTN, GERD, Bipolar I, and chronic drug dependence/narcotic use, Cirrhosis/MEEK admitted through the ED w/ confusion - GI asked to evaluate for confusion and abdominal pain. Pt was seen and evaluated, she opens her eyes to name but is unable to provide me any past medical history of recall the events leading up to admission. On arrival no leukocytosis, HGB stable, PLT 133, INR 1.2, NA 141, BUN/[employer] WNL, Tbili 2.9 w/ normal AST/ALTm ALKP 200. ammonia was elevated at 76 Allergies Allergy/AdvReac Type Severity Reaction Status Date / Time Iodinated Contrast Media Allergy Intermediate hives-PT Verified 08/22/20 19:01 DENIES SEE NOTE adhesive Allergy Mild RED RASH Verified 08/22/20 19:01 CAUSED BY PAPER TAPE vancomycin AdvReac Severe renal Verified 08/22/20 19:01 failure, required dialysis x 3 MONTHS acetaminophen AdvReac Intermediate Liver Verified 08/22/20 19:01 problems. alprazolam AdvReac Intermediate MAKES Verified 08/22/20 19:01 LOOPY,DO AND SAY SILLY THINGS codeine AdvReac Intermediate UPSET Verified 08/22/20 19:01 STOMACH haloperidol AdvReac Intermediate nervous Verified 08/22/20 19:01 and anxious metformin AdvReac Intermediate HANDS FEET Verified 08/22/20 19:01 FACE NUMB methylparaben AdvReac Intermediate FLUID Verified 08/22/20 19:01 RETENTION morphine AdvReac Intermediate SWELLING Verified 08/22/20 19:01 LEGS AND FEET oxymorphone AdvReac Intermediate FLUID Verified 08/22/20 19:01 RETENTION pregabalin AdvReac Intermediate Aphasia/Speech Verified 08/22/20 19:01 impairments gabapentin AdvReac Mild Aphasia/Speech Verified 08/22/20 19:01 impairments Sulfa (Sulfonamide AdvReac Mild GI SYMPTOMS Verified 08/22/20 19:01 Antibiotics) Home Medications Medication Instructions Recorded Confirmed Type Xarelto 20 mg PO PM 03/12/19 08/22/20 History duloxetine [Cymbalta] 60 mg PO BID 03/12/19 08/22/20 History furosemide [Lasix] 20 - 60 mg PO QAM PRN 03/12/19 08/22/20 History insulin aspart U-100 [Novolog 15 unit SUBCUT TIDM 03/12/19 08/22/20 History Flexpen U-100 Insulin] prochlorperazine maleate 5 mg PO TID PRN 03/12/19 08/22/20 History [Compazine] carvedilol 12.5 mg PO BID 03/21/19 08/22/20 History nortriptyline [Pamelor] 25 mg PO HS 03/21/19 08/22/20 History Trulicity 1.5 mg SUBCUT WK 07/13/19 08/22/20 History Basaglar KwikPen U-100 Insulin 120 unit SUBCUT BID 08/01/19 08/22/20 History albuterol sulfate [Ventolin HFA] 2 puff INHALATION Q4H PRN 08/01/19 08/22/20 History ferrous sulfate 325 mg PO QAM 08/01/19 08/22/20 History pantoprazole 40 mg PO DAILYBB 08/01/19 08/22/20 History Xifaxan 550 mg PO BID #60 tab 08/15/19 08/22/20 Rx trazodone 50 mg PO HS 08/29/19 08/22/20 History famotidine 20 mg PO BID 09/17/19 08/22/20 History albuterol sulfate 2.5 mg INHALATION Q4 PRN 10/04/19 08/22/20 History magnesium chloride 64 mg PO PM 10/05/19 08/22/20 History lactulose [Constulose] 30 ml PO QID PRN 10/11/19 08/22/20 History levothyroxine 175 mcg PO DAILY 11/20/19 08/22/20 History oxycodone 15 mg PO QID PRN 02/23/20 08/22/20 History Belbuca 600 mcg BUCCAL BID 07/20/20 08/22/20 History prednisone 40 mg PO DAILY #2 tab 07/26/20 08/22/20 Rx ibuprofen [Advil] 800 mg PO Q6H PRN 08/22/20 08/22/20 History spironolactone [Aldactone] 50 mg PO BID 08/22/20 08/22/20 History Patient History Medical History Abdominal wall cellulitis Acute hepatic encephalopathy Bowel obstruction Cauda equina compression Cellulitis and abscess of trunk (Unknown) Chronic low back pain COPD, group D, by GOLD 2017 classification Deep vein blood clot of left lower extremity RIGHT AND LEFT LEG AND THEN MOVED LUNG - 2002 Diabetes Diabetic neuropathy (01/04/11) Fracture of fourth metatarsal bone of left foot Gastritis Hyperammonemia Hypokalemia Hypomagnesemia Incarcerated ventral hernia Kidney stone HX OF AND HAD LITHOTRIPSY RIMA (obstructive sleep apnea) HX OF AND NO CURRENT PROBLEM Paroxysmal A-fib 2013 on Xarelto Pyelonephritis Rectal bleeding Septic shock Severe sepsis Splenomegaly, not elsewhere classified Supratherapeutic INR UTI (urinary tract infection) Surgical History History of appendectomy History of arthroplasty of right knee Hx of lithotripsy Hx of ventral hernia repair S/P cholecystectomy S/P sinus surgery S/P MARLEE (total abdominal hysterectomy) Family History Father Cancer Liver Brother Kidney disease Renal failure Cirrhosis Brother Cirrhosis Other Family history non-contributory Social History Smoking Status: Current every day smoker Tobacco Type: Cigarettes Cigarettes Per Day: 1/2 PPD; Second Hand Exposure: Yes; Hx Alcohol Use: No Hx Substance Use: No Preferred Language: Portuguese Communication Ability: somnolent Communication Ability Comment: pt remains somnolent at this time and is unable to answer questions. Motor Room Controller Required: No Beliefs That Will Affect Care: None marital status: Current Living Situation: Significant Other Current Living Situation Comment: per ER documentation, pt resides with significant other current occupational status: disabled Feels Safe at Home: Yes Assistive Devices: Glasses and Oxygen - Continuous Review of Systems Review of Systems: All systems reviewed & are unremarkable except as noted in HPI & below Physical Exam Constitutional: WD/WN, vitals as above + ill appearing, + morbidly obese and comfortable; no acute distress, not intoxicated appearing and + not appropriately hydrated Eyes: + anicteric sclerae and PERRL Neck: trachea midline, no thyromegaly Respiratory: normal respiratory effort, lungs clear to auscultation Cardiovascular: Rate/Rhythm: regular rate and regular rhythm Extremities: no edema Gastrointestinal (Abdomen): Percussion/Palpation: abdomen soft; abdomen nontender, no guarding, abdomen not rigid and no ascites Skin: no rashes, warm and dry no jaundice bilateral lower extremity changes of venous stasis Results & Data ([facility]) Vital Signs (Past 12 Hours) Vital Signs Temp Pulse Pulse Resp BP BP Pulse Ox 11/03/20 08:54 36.8 C 95 H 20 149/97 H 90 11/03/20 08:44 110 H 11/03/20 08:00 118 H 19 160/104 H 98 11/03/20 07:31 100 H 20 142/120 H 96 11/03/20 06:31 95 H 10 L 169/79 H 95 11/03/20 06:01 154/106 H 95 11/03/20 05:55 127 H 22 153/98 H 95 11/03/20 05:30 112 H 19 146/126 H 97 11/03/20 05:01 98 11/03/20 05:00 100 H 24 149/125 H 99 11/03/20 04:45 36.6 C 109 H 16 145/82 H 98 Laboratory Results 11/03/20 11/03/20 11/03/20 Range/Units Unknown 09:46 07:44 WBC (4.8-10.8) K/uL RBC (4.2-5.4) M/uL Hgb (12.0-16.0) g/dL Hct (37-47) % MCV (80-100) fL MCH (25-34) pg MCHC (32-36) g/dL RDW Std Deviation (36.4-46.3) fL RDW Coeff of Mari (11.5-14.5) % Plt Count (130-400) K/uL MPV (7.4-10.4) fL Immature Gran % (Auto) % Neut % (Auto) % Lymph % (Auto) % [place] % (Auto) % Eos % (Auto) % Baso % (Auto) % Neut # (Auto) (1.4-6.5) K/uL Lymph # (Auto) (1.2-3.4) K/uL [place] # (Auto) (0.11-0.59) K/uL Eos # (Auto) (0-0.5) K/uL Baso # (Auto) (0-0.2) K/uL Immature Gran # (Auto) (0.00-0.02) K/uL ABG pH 7.46 H (7.35-7.45) ABG pCO2 34 L (35-46) mmHg ABG pO2 68 L (80-95) mmHg ABG HCO3 24 (19-24) mmol/L ABG O2 Saturation 95.0 (90-95) % ABG Base Excess 0.3 (-9-1.8) mEq/L Kermit Test Pos (Pos) Barometric Pressure 734.1 mm/Hg Oxygen Given RA Sodium (136-145) mmol/L Potassium (3.5-5.1) mmol/L Chloride (98-107) mmol/L Carbon Dioxide (21-32) mmol/L Anion Gap (3-11) BUN (7-18) mg/dl Creatinine (0.6-1.2) mg/dl Est Cr Clr Drug Dosing ml/min Est GFR ( Amer) ml/min Est GFR (Non-Af Amer) ml/min BUN/Creatinine Ratio (10-20) Glucose (70-99) mg/dl POC Glucose 162 H (70-99) mg/dl Calcium (8.5-10.1) mg/dl Magnesium (1.8-2.4) mg/dl Total Bilirubin (0.2-1) mg/dl AST (15-37) U/L ALT (12-78) U/L Alkaline Phosphatase (45-117) U/L Ammonia (11-32) umol/L Total Protein (6.4-8.2) gm/dl Albumin (3.4-5.0) gm/dl Globulin (2.5-4.0) gm/dl Albumin/Globulin Ratio (0.9-2) TSH (0.300-4.500) uIu/ml Urine Color Dark Yellow Urine Appearance Clear (Clear) Urine pH 7.0 (4.5-7.5) Ur Specific [place] 1.013 (1.000-1.030) Urine Protein Trace H (Negative) Urine Glucose (UA) Negative (Negative) Urine Ketones Negative (Negative) Urine Blood 2+ H (Negative) Urine Nitrite Negative (Negative) Urine Bilirubin Negative (Negative) Urine Urobilinogen Negative (Negative) Ur Leukocyte Esterase Negative (Negative) Urine WBC (Auto) 1-5 (0-5) /hpf Urine RBC (Auto) >30 H (0-4) /hpf U Hyaline Cast (Auto) 1-5 (0-5) /lpf U Epithel Cells (Auto) 10-20 H (0-5) /lpf Urine Bacteria (Auto) Negative (Negative) COVID-19 Eval Order SARS-CoV-2 (PCR) (Negative) 11/03/20 11/03/20 11/03/20 Range/Units 06:19 06:19 05:00 WBC (4.8-10.8) K/uL RBC (4.2-5.4) M/uL Hgb (12.0-16.0) g/dL Hct (37-47) % MCV (80-100) fL MCH (25-34) pg MCHC (32-36) g/dL RDW Std Deviation (36.4-46.3) fL RDW Coeff of Mari (11.5-14.5) % Plt Count (130-400) K/uL MPV (7.4-10.4) fL Immature Gran % (Auto) % Neut % (Auto) % Lymph % (Auto) % [place] % (Auto) % Eos % (Auto) % Baso % (Auto) % Neut # (Auto) (1.4-6.5) K/uL Lymph # (Auto) (1.2-3.4) K/uL [place] # (Auto) (0.11-0.59) K/uL Eos # (Auto) (0-0.5) K/uL Baso # (Auto) (0-0.2) K/uL Immature Gran # (Auto) (0.00-0.02) K/uL ABG pH (7.35-7.45) ABG pCO2 (35-46) mmHg ABG pO2 (80-95) mmHg ABG HCO3 (19-24) mmol/L ABG O2 Saturation (90-95) % ABG Base Excess (-9-1.8) mEq/L Kermit Test (Pos) Barometric Pressure mm/Hg Oxygen Given Sodium (136-145) mmol/L Potassium (3.5-5.1) mmol/L Chloride (98-107) mmol/L Carbon Dioxide (21-32) mmol/L Anion Gap (3-11) BUN (7-18) mg/dl Creatinine (0.6-1.2) mg/dl Est Cr Clr Drug Dosing ml/min Est GFR ( Amer) ml/min Est GFR (Non-Af Amer) ml/min BUN/Creatinine Ratio (10-20) Glucose (70-99) mg/dl POC Glucose (70-99) mg/dl Calcium (8.5-10.1) mg/dl Magnesium (1.8-2.4) mg/dl Total Bilirubin (0.2-1) mg/dl AST (15-37) U/L ALT (12-78) U/L Alkaline Phosphatase (45-117) U/L Ammonia 76.0 H (11-32) umol/L Total Protein (6.4-8.2) gm/dl Albumin (3.4-5.0) gm/dl Globulin (2.5-4.0) gm/dl Albumin/Globulin Ratio (0.9-2) TSH (0.300-4.500) uIu/ml Urine Color Urine Appearance (Clear) Urine pH (4.5-7.5) Ur Specific [place] (1.000-1.030) Urine Protein (Negative) Urine Glucose (UA) (Negative) Urine Ketones (Negative) Urine Blood (Negative) Urine Nitrite (Negative) Urine Bilirubin (Negative) Urine Urobilinogen (Negative) Ur Leukocyte Esterase (Negative) Urine WBC (Auto) (0-5) /hpf Urine RBC (Auto) (0-4) /hpf U Hyaline Cast (Auto) (0-5) /lpf U Epithel Cells (Auto) (0-5) /lpf Urine Bacteria (Auto) (Negative) COVID-19 Eval Order Covid19 at [facility] SARS-CoV-2 (PCR) NEGATIVE (Negative) 11/03/20 11/03/20 11/03/20 Range/Units 05:00 05:00 04:57 WBC 9.95 (4.8-10.8) K/uL RBC 4.23 (4.2-5.4) M/uL Hgb 15.2 (12.0-16.0) g/dL Hct 42.7 (37-47) % MCV 100.9 H (80-100) fL MCH 35.9 H (25-34) pg MCHC 35.6 (32-36) g/dL RDW Std Deviation 55.1 H (36.4-46.3) fL RDW Coeff of Mari 15.3 H (11.5-14.5) % Plt Count 133 (130-400) K/uL MPV 9.5 (7.4-10.4) fL Immature Gran % (Auto) 0.2 % Neut % (Auto) 57.3 % Lymph % (Auto) 30.8 % [place] % (Auto) 9.5 % Eos % (Auto) 1.8 % Baso % (Auto) 0.4 % Neut # (Auto) 5.70 (1.4-6.5) K/uL Lymph # (Auto) 3.06 (1.2-3.4) K/uL [place] # (Auto) 0.95 H (0.11-0.59) K/uL Eos # (Auto) 0.18 (0-0.5) K/uL Baso # (Auto) 0.04 (0-0.2) K/uL Immature Gran # (Auto) 0.02 (0.00-0.02) K/uL ABG pH (7.35-7.45) ABG pCO2 (35-46) mmHg ABG pO2 (80-95) mmHg ABG HCO3 (19-24) mmol/L ABG O2 Saturation (90-95) % ABG Base Excess (-9-1.8) mEq/L Kermit Test (Pos) Barometric Pressure mm/Hg Oxygen Given Sodium 141 (136-145) mmol/L Potassium 3.3 L (3.5-5.1) mmol/L Chloride 108 H (98-107) mmol/L Carbon Dioxide 29 (21-32) mmol/L Anion Gap 4.0 (3-11) BUN 7 (7-18) mg/dl Creatinine 0.91 (0.6-1.2) mg/dl Est Cr Clr Drug Dosing 96.7 ml/min Est GFR ( Amer) 81.7 ml/min Est GFR (Non-Af Amer) 70.5 ml/min BUN/Creatinine Ratio 7.2 L (10-20) Glucose 143 H (70-99) mg/dl POC Glucose 137 H (70-99) mg/dl Calcium 8.8 (8.5-10.1) mg/dl Magnesium 1.6 L (1.8-2.4) mg/dl Total Bilirubin 2.9 H (0.2-1) mg/dl AST 33 (15-37) U/L ALT 24 (12-78) U/L Alkaline Phosphatase 200 H (45-117) U/L Ammonia (11-32) umol/L Total Protein 7.4 (6.4-8.2) gm/dl Albumin 2.8 L (3.4-5.0) gm/dl Globulin 4.6 H (2.5-4.0) gm/dl Albumin/Globulin Ratio 0.6 L (0.9-2) TSH 2.700 (0.300-4.500) uIu/ml Urine Color Urine Appearance (Clear) Urine pH (4.5-7.5) Ur Specific [place] (1.000-1.030) Urine Protein (Negative) Urine Glucose (UA) (Negative) Urine Ketones (Negative) Urine Blood (Negative) Urine Nitrite (Negative) Urine Bilirubin (Negative) Urine Urobilinogen (Negative) Ur Leukocyte Esterase (Negative) Urine WBC (Auto) (0-5) /hpf Urine RBC (Auto) (0-4) /hpf U Hyaline Cast (Auto) (0-5) /lpf U Epithel Cells (Auto) (0-5) /lpf Urine Bacteria (Auto) (Negative) COVID-19 Eval Order SARS-CoV-2 (PCR) (Negative)
[2020-11-03] MEDS ORDERED: INSULIN GLARGINE SOLOSTAR 100 UNITS/ML 3 ML PEN SC SCH (11:30)
--- NOTE | 2020-11-03 11:38 | History and Physical Report ---
DATE OF ADMISSION: 11/03/2020. CHIEF COMPLAINT: Confusion. HISTORY OF PRESENT ILLNESS: This is a 54-year-old female with past medical history significant for type 2 diabetes with long-term insulin use, hyperlipidemia, hypothyroidism, COPD, obstructive sleep apnea, noncompliance with CPAP, hypertension, GERD, cirrhosis, MEEK, bipolar 1, morbidly obese, noncompliant, drug dependence narcotic use, was brought in by her significant other because of confusion at home. She was confused and she fell while going to the bathroom and was brought in here. She has multiple admissions for hepatic encephalopathy, her ammonia level was found to be 76. She recently also found to have spine compression fracture, seems to be following with pain management in [place]. The patient currently oriented to name only. She has complaints of abdominal pain. Denies any chest pain. She has some headache, no cough, no fevers, no nausea, hemodynamically stable. Her magnesium is 1.6, alkaline phosphatase 200, which seems to be chronically elevated. SARS-CoV-[address] abdomen and pelvis was ordered because complaints of abdominal pain showing no evidence of bowel obstruction, no evidence of free air, no evidence of diverticulitis, hepatic steatosis, hepatic cirrhosis. There is no ascites. ALLERGIES: IODINATED CONTRAST MEDIA, ADHESIVE, VANCOMYCIN, ACETAMINOPHEN, ALPRAZOLAM, CODEINE, HALOPERIDOL, METFORMIN, METHYLPYRIDINE, MORPHINE, OXYMORPHONE, PREGABALIN, GABAPENTIN, SULFA ANTIBIOTICS. PAST MEDICAL HISTORY: As mentioned above. PAST SURGICAL HISTORY: Right knee arthroscopy, colonoscopy with biopsy, EGDs, abdominal hernia implant, appendectomy, cholecystectomy, sinus surgery, total abdominal hysterectomy with removal of tubes. MEDICATIONS: The patient is on spironolactone 25 mg p.o. daily, Basaglar insulin 120 units under the skin twice daily, levothyroxine 120 mcg p.o. daily, trazodone 50 mg p.o. at bedtime, Xifaxan 550 mg p.o. b.i.d., Protonix 40 mg p.o. daily, Xarelto 20 mg p.o. daily, Nystatin topical p.r.n., ferrous sulfate 325 mg p.o. daily with breakfast, Famotidine 20 mg p.o. b.i.d., Ventolin 2 puffs q. 4 hours p.r.n., Trulicity 1.5 mg under the skin once a week, Compazine 5 mg 1 tablet p.o. t.i.d. p.r.n., nortriptyline 25 mg p.o. at bedtime, baclofen 10 mg p.o., lactulose 30 mL 4 times a day if needed, Coreg 12.5 mg p.o. b.i.d., magnesium 64 mg p.o. daily, duloxetine 60 mg p.o. b.i.d., hydroxyzine 10 mg prior to imaging, Oxycodone IR 15 mg p.o. q. 6 hours p.r.n., benzonatate 200 mg p.o. t.i.d. p.r.n., Lasix 20 mg p.o. daily, oxygen 3-4 liters p.r.n. for shortness of breath, potassium chloride 10 mEq, insulin sliding scale 15 units under the skin t.i.d. with meals, Neutra-Phos one tablet p.o. daily, albuterol nebulization every 4 hours p.r.n. FAMILY HISTORY: Significant for father had liver cancer. Brother had cirrhosis; mother has heart disorder and lung disorder. Mother from renal failure and had cirrhosis. SOCIAL HISTORY: Lives with her significant other. Smokes half pack a day for last 34 years. No alcohol use. No drug use. REVIEW OF SYSTEMS: Currently, I could not get review of symptoms as patient is somewhat confused. PHYSICAL EXAMINATION: VITAL SIGNS: Temperature 36.6, pulse 118, respiratory rate 19, blood pressure 160/104, oxygen 98% on room air. HEENT: Pupils equal, round and reactive to light. Oral mucosa moist. NECK: No JVD or neck masses seen. CVS: S1 and S2, regular rhythm. No murmur, no gallop. RESPIRATORY: Normal AP diameter. No accessory muscle use. No wheezing, no crackles. ABDOMEN: Soft, bowel sounds present. No panniculitis is seen. No guarding, no rigidity. CENTRAL NERVOUS SYSTEM: Alert and somewhat drowsy, but arousable and oriented to name only. Obeys simple commands, answers simple questions. Moves extremities. EXTREMITIES: Lower extremity, chronic skin changes seen. No erythema seen. LABORATORY DATA: WBC 9, hemoglobin 15.2, hematocrit 42.7, platelets 133. ABG, pH of 7.4, pCO2 of 34, pO2 of 68, oxygen 95%. Sodium 141, potassium 3.3, chloride 108, bicarbonate 29, BUN 7, creatinine 0.9, serum glucose 143, calcium 8.8, magnesium 1.6, total bilirubin 2.9, AST 33, ALT 24, alkaline phosphatase 200, ammonia 76. TSH is 2.7. SARS-CoV-2 PCR negative. IMAGING DATA: CT of abdomen and pelvis, no interval development of L1 burst fracture with mild retropulsion, multilevel spinal stenosis within lumbar region. ____ likely secondary to hepatocellular disease. No evidence of diverticulitis. No bowel obstruction, hepatic steatosis, hepatic cirrhosis with mild splenomegaly, nonobstructing right renal calculus. Chest x-ray, no active disease in the chest. EKG: Sinus rhythm with first-degree AV block at a rate of 100. No acute ST changes seen. ASSESSMENT AND PLAN: This is a 54-year-old female with history of liver cirrhosis, diabetes, morbid obesity, obstructive sleep apnea, comes with altered mental status, found to have elevated ammonia. 1. Altered mental status, most likely representing hepatic encephalopathy. The patient has been complaining of abdominal pain. CAT scan showing no ascites. Empirically started on cefepime, which we will continue for now. Started lactulose 30 g q.i.d. Further repeat ammonia levels. Consult GI for further recommendation. Closely monitor in tele floor, placed on gentle fluids. ABG looks okay.Follow cultures. 2. History of chronic obstructive pulmonary disease, currently no wheezing. Doing okay. Continue home inhalers. 3. History of chronic diastolic congestive heart failure Continue her home diuretics. Getting gentle fluids, monitor for volume overload. 4. 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 No ascites on CT abdomen. Continue home Xifaxan. Currently, getting lactulose 30 g q.i.d. for hepatic encephalopathy, we will hold her diuretics for now and getting gentle fluids, monitor for any volume overload. 5. Obstructive sleep apnea, generally uses oxygen at nighttime, was noncompliant with CPAP or BiPAP. If needed, we will use BiPAP. 6. Diabetes, currently n.p.o. We will place a sliding scale and we will place on Lantus. Consult pharmacy for hyperglycemia management. 7. History of paroxysmal atrial fibrillation, continue Coreg and Xarelto. 8. History of lumbar spine fracture, history of opiate dependence and history of drug seeking behavior. We will just give her home pain medication. We will try to avoid any more narcotics. 9. Hypothyroidism. Continue Synthroid. 10. History of morbid obesity: Needs counseling. 11. Deep venous thrombosis prophylaxis, on Xarelto. CODE STATUS: Full code. PT, OT for discharge. Social service to help with discharge planning. DISPOSITION: Monitor in the tele floor. Job ID: [id number] MTDD
--- NOTE | 2020-11-03 13:48 | Hospitalist Progress Note ---
Date of Service November 03, 2020 Assessment & Plan Admission and Anticipated Discharge Date Admission Date: November 03, 2020 Subjective pt admitted earlier today please see the H&P for detail 54 yo F MEEK cirrhosis , admitted with confusion , hepatic encephalopahthy apprecite input from GI ' recoomends cont Lactulose , Xifaxan follow ammonia level Dali Boss MD Results & Data Results & Data ([facility]) Vital Signs (Past 12 Hours) Vital Signs Temp Pulse Pulse Resp BP BP Pulse Ox 11/03/20 11:56 36.7 C 94 H 19 134/76 95 11/03/20 08:54 36.8 C 95 H 20 149/97 H 90 11/03/20 08:44 110 H 11/03/20 08:00 118 H 19 160/104 H 98 11/03/20 07:31 100 H 20 142/120 H 96 11/03/20 06:31 95 H 10 L 169/79 H 95 11/03/20 06:01 154/106 H 95 11/03/20 05:55 127 H 22 153/98 H 95 11/03/20 05:30 112 H 19 146/126 H 97 11/03/20 05:01 98 11/03/20 05:00 100 H 24 149/125 H 99 11/03/20 04:45 36.6 C 109 H 16 145/82 H 98
--- NOTE | 2020-11-03 14:40 | Pharmacy Report ---
Pharmacy Glycemic Short Note 2 - Date of Service November 03, 2020 - Glycemic Short BSG Results (Last 24 hours): 11/03/20 11/03/20 11/03/20 04:57 05:00 09:46 Glucose 143 H POC Glucose 137 H 162 H 11/03/20 11:25 Glucose POC Glucose 138 H OUTPATIENT ANTIDIABETIC REGIMEN: * Trulicity 1.5 mg weekly * Basaglar 120 units BID * Novolog 15 units TIDM ASSESSMENT: * Patient admitted with AMS. Currently NPO. * Patient previously tolerated Lantus 40 units daily. Will start with reduced dose of Lantus 30 units daily and titrate upwards as needed based upon clinical response. * Start with Novolog that patient previously tolerated. Background * 54yo T2DM female known to pharmacy from previous admissions/glycemic consults; most recently June 2020 * Pt uses large doses of insulin as an outpatient. Outpatient regimen is heavily weighted towards basal insulin indicating that her basal insulin is covering some prandial insulin needs. * Typically patient only requires ~112 units of insulin per day while admitted. Will initiate SQ basal bolus insulin regimen similar to June 2020 admission and titrate based on BSG trends. PLAN FOR INPATIENT GLYCEMIC CONTROL: * Hold outpatient SQ outpatient medications * Basal insulin * Lantus 30 units SQ daily * Bolus insulin * NovoLog per scale ACHS or Q6hrs while NPO * Goal Range: Low 110 mg/dL - High 140 mg/dL * Correction Factor: 10 mg/dL/unit * Nutritional / Prandial insulin per carb ratio of 1 unit per 3 grams CHO consumed PLAN FOR DISCHARGE: * TBD
--- NOTE | 2020-11-03 17:44 | Electrocardiogram Report ---
Test Reason : Blood Pressure : / mmHG Vent. Rate : 100 BPM Atrial Rate : 100 BPM P-R Int : 212 ms QRS Dur : 078 ms QT Int : 352 ms P-R-T Axes : 071 051 034 degrees QTc Int : 454 ms Sinus rhythm with 1st degree A-V block Abnormal ECG When compared with ECG of 22-AUG-2020 17:17, Vent. rate has increased BY 35 BPM Confirmed by Anshu Cevallos ([id number]) on 11/03/2020 5:43:38 PM Referred By: REFERRED SELF Confirmed By:Everardo Cevallos
[2020-11-03] MEDS ORDERED: Nursing to Pharmacy Communication SCH (19:45)
[2020-11-03] MEDS: cefTRIAXone SODIUM 2,000 MG in DEXTROSE 5% 50 ML IV SCH (20:14)
[2020-11-03] MEDS: MAGNESIUM CHLORIDE 64MG DELAYED REL TAB PO SCH (20:24)
[2020-11-03] MEDS: traZODone HCL 50 MG TAB PO SCH (20:24)
[2020-11-03] MEDS: RIVAROXABAN 20 MG TAB PO SCH (20:24)
[2020-11-03] MEDS: NORTRIPTYLINE HCL 25 MG CAP PO SCH (20:24)
[2020-11-04] MEDS: INSULIN ASPART 100 UNITS/ML 3 ML PEN SC SCH ×4 (00:36→17:57)
[2020-11-04] MEDS: LEVOTHYROXINE SODIUM 175 MCG TABLET PO SCH (05:36)
[2020-11-04] MEDS: PANTOprazole 40 MG TAB PO SCH (05:36)
[2020-11-04 05:47] LABS: Basophils # (auto) 0.04 K/uL (0-0.2); Basophils % (auto) 0.4 %; Eosinophils # (auto) 0.21 K/uL (0-0.5); Eosinophils % (auto) 2.1 %; Hematocrit (blood only) 39.9 % (37-47); Hemoglobin 13.7 g/dL (12.0-16.0); Immature Granulocytes # (auto) 0.03 K/uL (0.00-0.02); Immature Granulocytes % (auto) 0.3 %; Lymphocytes # (auto) 2.88 K/uL (1.2-3.4); Lymphocytes % (auto) 28.9 %; Mean Corpuscular Hemoglobin 35.4 pg (25-34); Mean Corpuscular Hgb Conc 34.3 g/dL (32-36); Mean Corpuscular Volume 103.1 fL (80-100); Mean Platelet Volume 9.2 fL (7.4-10.4); Monocytes # (auto) 1.09 K/uL (0.11-0.59); Neutrophils % (auto) 57.3 %; Platelet Count 133 K/uL (130-400); RDW Coefficient of Variation 15.5 % (11.5-14.5); Red Blood Count 3.87 M/uL (4.2-5.4); White Blood Count 9.95 K/uL (4.8-10.8)
[2020-11-04 06:18] LABS: BUN Creatinine Ratio 8.8 (10-20); Calcium 8.6 mg/dl (8.5-10.1); Creatinine Clr Calc Pharmacy 110.6 ml/min; Est GFR (African American) 92.7 ml/min
[2020-11-04 07:38] LABS: Potassium 3.4 mmol/L (3.5-5.1)
[2020-11-04 07:39] LABS: Magnesium 1.7 mg/dl (1.8-2.4)
[2020-11-04 07:51] LABS: Estimated Average Glucose 114 mg/dl; Hemoglobin A1C 5.6 % (4.5-5.6)
--- NOTE | 2020-11-04 08:31 | Gastroenterology Progress Note ---
Date of Service November 04, 2020 Assessment & Plan (1) Acute hepatic encephalopathy: 54 year old female with chronic comorbidities, medical noncompliance, MEEK admitted w/ AMS. MELD 12 Infectious work up Please arrange chest xr, urine culture, blood cultures ABD US - diagnostic paracentesis if fluid is present Lactulose 30 gm QID Xifaxin 550 mg BID Check urine toxicology Monitor for any s/s of GIB Thank you for allowing us to participate in the care of this patient. Please call with any acute changes, questions or concerns. Please see addendum below with additional recommendation from my supervising physician. Admission and Anticipated Discharge Date Admission Date: November 03, 2020 Supervising Physician Co-Signing Physician Notes Cirrhosis fup More alert this morning PE - obese fm in nad, HEENT - perrla no scleral icterus, Pulm - normal respirations, Abd - obese soft nt, discolored legs MELD is 12 Further infectious workup, urine tox is pending Agree with further plan of care documented in Janett's assessment and plan. Subjective Pt was seen and evaluated, chart reviewed. More awake, but still confused. Respond to name, yes/no answers Denies abdominal pain. No nausea, vomiting. Blood cultures pending CTAP 2020: Hepatic steatosis Hepatic cirrhosis and mild splenomegaly No evidence of bowel obstruction. No evidence of free air Surgically absent appendix. No evidence of acute diverticulitis Prominent lymph nodes likely secondary to hepatocellular disease. Interval development of an L1 burst fracture with mild retropulsion. Multilevel spinal stenosis within the lumbar spine Nonobstructing right renal calculusMotion degraded study. Review of Systems Review of Systems: Unobtainable due to cognitive status Physical Exam Constitutional: WD/WN, vitals as above + ill appearing and + morbidly obese; no acute distress Neck: trachea midline, no thyromegaly Respiratory: normal respiratory effort, lungs clear to auscultation Cardiovascular: Rate/Rhythm: regular rate and regular rhythm Gastrointestinal (Abdomen): normal bowel sounds, soft, nontender, no hepatosplenomegaly Skin: no rashes, warm and dry Results & Data ([facility]) Vital Signs (Past 12 Hours) Vital Signs Temp Pulse Resp BP Pulse Ox 11/04/20 07:49 37.0 C 96 H 12 119/75 92 11/04/20 04:47 36.9 C 85 16 163/99 H 94 11/03/20 23:00 36.6 C 81 18 125/81 91 Laboratory Results 11/04/20 11/04/20 11/04/20 Range/Units 07:33 07:12 06:01 WBC (4.8-10.8) K/uL RBC (4.2-5.4) M/uL Hgb (12.0-16.0) g/dL Hct (37-47) % MCV (80-100) fL MCH (25-34) pg MCHC (32-36) g/dL RDW Std Deviation (36.4-46.3) fL RDW Coeff of Mari (11.5-14.5) % Plt Count (130-400) K/uL MPV (7.4-10.4) fL Immature Gran % (Auto) % Neut % (Auto) % Lymph % (Auto) % [place] % (Auto) % Eos % (Auto) % Baso % (Auto) % Neut # (Auto) (1.4-6.5) K/uL Lymph # (Auto) (1.2-3.4) K/uL [place] # (Auto) (0.11-0.59) K/uL Eos # (Auto) (0-0.5) K/uL Baso # (Auto) (0-0.2) K/uL Immature Gran # (Auto) (0.00-0.02) K/uL Sodium (136-145) mmol/L Potassium 3.4 L (3.5-5.1) mmol/L Chloride (98-107) mmol/L Carbon Dioxide (21-32) mmol/L Anion Gap (3-11) BUN (7-18) mg/dl Creatinine (0.6-1.2) mg/dl Est Cr Clr Drug Dosing ml/min Est GFR ( Amer) ml/min Est GFR (Non-Af Amer) ml/min BUN/Creatinine Ratio (10-20) Glucose (70-99) mg/dl POC Glucose 120 H 124 H (70-99) mg/dl Estimat Average Glucose mg/dl Hemoglobin A1c (4.5-5.6) % Calcium (8.5-10.1) mg/dl Magnesium 1.7 L (1.8-2.4) mg/dl Ammonia (11-32) umol/L Urine Color Urine Appearance (Clear) Urine pH (4.5-7.5) Ur Specific [place] (1.000-1.030) Urine Protein (Negative) Urine Glucose (UA) (Negative) Urine Ketones (Negative) Urine Blood (Negative) Urine Nitrite (Negative) Urine Bilirubin (Negative) Urine Urobilinogen (Negative) Ur Leukocyte Esterase (Negative) Urine WBC (Auto) (0-5) /hpf Urine RBC (Auto) (0-4) /hpf U Hyaline Cast (Auto) (0-5) /lpf U Epithel Cells (Auto) (0-5) /lpf Urine Bacteria (Auto) (Negative) 11/04/20 11/04/20 11/04/20 Range/Units 05:34 05:34 05:34 WBC 9.95 (4.8-10.8) K/uL RBC 3.87 L (4.2-5.4) M/uL Hgb 13.7 (12.0-16.0) g/dL Hct 39.9 (37-47) % MCV 103.1 H (80-100) fL MCH 35.4 H (25-34) pg MCHC 34.3 (32-36) g/dL RDW Std Deviation 58.0 H (36.4-46.3) fL RDW Coeff of Mari 15.5 H (11.5-14.5) % Plt Count 133 (130-400) K/uL MPV 9.2 (7.4-10.4) fL Immature Gran % (Auto) 0.3 % Neut % (Auto) 57.3 % Lymph % (Auto) 28.9 % [place] % (Auto) 11.0 % Eos % (Auto) 2.1 % Baso % (Auto) 0.4 % Neut # (Auto) 5.70 (1.4-6.5) K/uL Lymph # (Auto) 2.88 (1.2-3.4) K/uL [place] # (Auto) 1.09 H (0.11-0.59) K/uL Eos # (Auto) 0.21 (0-0.5) K/uL Baso # (Auto) 0.04 (0-0.2) K/uL Immature Gran # (Auto) 0.03 H (0.00-0.02) K/uL Sodium 143 (136-145) mmol/L Potassium (3.5-5.1) mmol/L Chloride 113 H (98-107) mmol/L Carbon Dioxide 27 (21-32) mmol/L Anion Gap 3.0 (3-11) BUN 7 (7-18) mg/dl Creatinine 0.82 (0.6-1.2) mg/dl Est Cr Clr Drug Dosing 110.6 ml/min Est GFR ( Amer) 92.7 ml/min Est GFR (Non-Af Amer) 80.0 ml/min BUN/Creatinine Ratio 8.8 L (10-20) Glucose 122 H (70-99) mg/dl POC Glucose (70-99) mg/dl Estimat Average Glucose 114 mg/dl Hemoglobin A1c 5.6 (4.5-5.6) % Calcium 8.6 (8.5-10.1) mg/dl Magnesium (1.8-2.4) mg/dl Ammonia (11-32) umol/L Urine Color Urine Appearance (Clear) Urine pH (4.5-7.5) Ur Specific [place] (1.000-1.030) Urine Protein (Negative) Urine Glucose (UA) (Negative) Urine Ketones (Negative) Urine Blood (Negative) Urine Nitrite (Negative) Urine Bilirubin (Negative) Urine Urobilinogen (Negative) Ur Leukocyte Esterase (Negative) Urine WBC (Auto) (0-5) /hpf Urine RBC (Auto) (0-4) /hpf U Hyaline Cast (Auto) (0-5) /lpf U Epithel Cells (Auto) (0-5) /lpf Urine Bacteria (Auto) (Negative) 11/04/20 11/03/20 11/03/20 Range/Units 05:34 Unknown 23:52 WBC (4.8-10.8) K/uL RBC (4.2-5.4) M/uL Hgb (12.0-16.0) g/dL Hct (37-47) % MCV (80-100) fL MCH (25-34) pg MCHC (32-36) g/dL RDW Std Deviation (36.4-46.3) fL RDW Coeff of Mari (11.5-14.5) % Plt Count (130-400) K/uL MPV (7.4-10.4) fL Immature Gran % (Auto) % Neut % (Auto) % Lymph % (Auto) % [place] % (Auto) % Eos % (Auto) % Baso % (Auto) % Neut # (Auto) (1.4-6.5) K/uL Lymph # (Auto) (1.2-3.4) K/uL [place] # (Auto) (0.11-0.59) K/uL Eos # (Auto) (0-0.5) K/uL Baso # (Auto) (0-0.2) K/uL Immature Gran # (Auto) (0.00-0.02) K/uL Sodium (136-145) mmol/L Potassium (3.5-5.1) mmol/L Chloride (98-107) mmol/L Carbon Dioxide (21-32) mmol/L Anion Gap (3-11) BUN (7-18) mg/dl Creatinine (0.6-1.2) mg/dl Est Cr Clr Drug Dosing ml/min Est GFR ( Amer) ml/min Est GFR (Non-Af Amer) ml/min BUN/Creatinine Ratio (10-20) Glucose (70-99) mg/dl POC Glucose 159 H (70-99) mg/dl Estimat Average Glucose mg/dl Hemoglobin A1c (4.5-5.6) % Calcium (8.5-10.1) mg/dl Magnesium (1.8-2.4) mg/dl Ammonia 75.0 H (11-32) umol/L Urine Color Dark Yellow Urine Appearance Clear (Clear) Urine pH 7.0 (4.5-7.5) Ur Specific [place] 1.013 (1.000-1.030) Urine Protein Trace H (Negative) Urine Glucose (UA) Negative (Negative) Urine Ketones Negative (Negative) Urine Blood 2+ H (Negative) Urine Nitrite Negative (Negative) Urine Bilirubin Negative (Negative) Urine Urobilinogen Negative (Negative) Ur Leukocyte Esterase Negative (Negative) Urine WBC (Auto) 1-5 (0-5) /hpf Urine RBC (Auto) >30 H (0-4) /hpf U Hyaline Cast (Auto) 1-5 (0-5) /lpf U Epithel Cells (Auto) 10-20 H (0-5) /lpf Urine Bacteria (Auto) Negative (Negative) 11/03/20 11/03/20 11/03/20 Range/Units 16:12 13:52 11:25 WBC (4.8-10.8) K/uL RBC (4.2-5.4) M/uL Hgb (12.0-16.0) g/dL Hct (37-47) % MCV (80-100) fL MCH (25-34) pg MCHC (32-36) g/dL RDW Std Deviation (36.4-46.3) fL RDW Coeff of Mari (11.5-14.5) % Plt Count (130-400) K/uL MPV (7.4-10.4) fL Immature Gran % (Auto) % Neut % (Auto) % Lymph % (Auto) % [place] % (Auto) % Eos % (Auto) % Baso % (Auto) % Neut # (Auto) (1.4-6.5) K/uL Lymph # (Auto) (1.2-3.4) K/uL [place] # (Auto) (0.11-0.59) K/uL Eos # (Auto) (0-0.5) K/uL Baso # (Auto) (0-0.2) K/uL Immature Gran # (Auto) (0.00-0.02) K/uL Sodium (136-145) mmol/L Potassium (3.5-5.1) mmol/L Chloride (98-107) mmol/L Carbon Dioxide (21-32) mmol/L Anion Gap (3-11) BUN (7-18) mg/dl Creatinine (0.6-1.2) mg/dl Est Cr Clr Drug Dosing ml/min Est GFR ( Amer) ml/min Est GFR (Non-Af Amer) ml/min BUN/Creatinine Ratio (10-20) Glucose (70-99) mg/dl POC Glucose 126 H 138 H (70-99) mg/dl Estimat Average Glucose mg/dl Hemoglobin A1c (4.5-5.6) % Calcium (8.5-10.1) mg/dl Magnesium (1.8-2.4) mg/dl Ammonia 82.7 H (11-32) umol/L Urine Color Urine Appearance (Clear) Urine pH (4.5-7.5) Ur Specific [place] (1.000-1.030) Urine Protein (Negative) Urine Glucose (UA) (Negative) Urine Ketones (Negative) Urine Blood (Negative) Urine Nitrite (Negative) Urine Bilirubin (Negative) Urine Urobilinogen (Negative) Ur Leukocyte Esterase (Negative) Urine WBC (Auto) (0-5) /hpf Urine RBC (Auto) (0-4) /hpf U Hyaline Cast (Auto) (0-5) /lpf U Epithel Cells (Auto) (0-5) /lpf Urine Bacteria (Auto) (Negative) 11/03/20 Range/Units 09:46 WBC (4.8-10.8) K/uL RBC (4.2-5.4) M/uL Hgb (12.0-16.0) g/dL Hct (37-47) % MCV (80-100) fL MCH (25-34) pg MCHC (32-36) g/dL RDW Std Deviation (36.4-46.3) fL RDW Coeff of Mari (11.5-14.5) % Plt Count (130-400) K/uL MPV (7.4-10.4) fL Immature Gran % (Auto) % Neut % (Auto) % Lymph % (Auto) % [place] % (Auto) % Eos % (Auto) % Baso % (Auto) % Neut # (Auto) (1.4-6.5) K/uL Lymph # (Auto) (1.2-3.4) K/uL [place] # (Auto) (0.11-0.59) K/uL Eos # (Auto) (0-0.5) K/uL Baso # (Auto) (0-0.2) K/uL Immature Gran # (Auto) (0.00-0.02) K/uL Sodium (136-145) mmol/L Potassium (3.5-5.1) mmol/L Chloride (98-107) mmol/L Carbon Dioxide (21-32) mmol/L Anion Gap (3-11) BUN (7-18) mg/dl Creatinine (0.6-1.2) mg/dl Est Cr Clr Drug Dosing ml/min Est GFR ( Amer) ml/min Est GFR (Non-Af Amer) ml/min BUN/Creatinine Ratio (10-20) Glucose (70-99) mg/dl POC Glucose 162 H (70-99) mg/dl Estimat Average Glucose mg/dl Hemoglobin A1c (4.5-5.6) % Calcium (8.5-10.1) mg/dl Magnesium (1.8-2.4) mg/dl Ammonia (11-32) umol/L Urine Color Urine Appearance (Clear) Urine pH (4.5-7.5) Ur Specific [place] (1.000-1.030) Urine Protein (Negative) Urine Glucose (UA) (Negative) Urine Ketones (Negative) Urine Blood (Negative) Urine Nitrite (Negative) Urine Bilirubin (Negative) Urine Urobilinogen (Negative) Ur Leukocyte Esterase (Negative) Urine WBC (Auto) (0-5) /hpf Urine RBC (Auto) (0-4) /hpf U Hyaline Cast (Auto) (0-5) /lpf U Epithel Cells (Auto) (0-5) /lpf Urine Bacteria (Auto) (Negative)
[2020-11-04] MEDS: LACTULOSE SYRUP 30 GM/45 ML UDP PO SCH ×4 (08:45→19:47)
[2020-11-04] MEDS: INSULIN GLARGINE SOLOSTAR 100 UNITS/ML 3 ML PEN SC SCH (08:45)
[2020-11-04] MEDS: FAMOTIDINE 20 MG TAB PO SCH ×2 (08:46→19:43)
[2020-11-04] MEDS: rifAXIMin 550 MG TABLET PO SCH ×2 (08:46→19:43)
[2020-11-04] MEDS: FERROUS SULFATE 325 MG TAB PO SCH (08:46)
[2020-11-04] MEDS: carvediloL 12.5 MG TAB PO SCH ×2 (08:47→19:43)
[2020-11-04] MEDS: DULoxetine HCL 60 MG CAP PO SCH ×2 (08:47→19:43)
[2020-11-04] MEDS: SODIUM CHLORIDE 0.9% 1000ML 1,000 ML IV SCH (08:48)
--- NOTE | 2020-11-04 11:56 | Hospitalist Progress Note ---
Date of Service November 04, 2020 Assessment & Plan (1) Acute hepatic encephalopathy: hx of MEEK Cirrhosis admitted with confusion , obtundation elevated ammonia level acute hepatic encephlopathy no obvious source of infection or GI bleed appreciate input from GI cont Lactulose and rifaximin monitor clinically Admission and Anticipated Discharge Date Admission Date: November 03, 2020 Subjective Pt was seen and evaluated, chart reviewed. arousable , but still confused. Respond to name, yes/no answers had multiple bowel movements with lactulose Denies abdominal pain. No nausea, vomiting. Physical Exam Constitutional: obese, lethargic , opens eyes briefly to voice Respiratory: diminished breath sound , no wheeze or rales Cardiovascular: Rate/Rhythm: regular rate and regular rhythm Extremities: + edema Gastrointestinal (Abdomen): distended ,obese , bowel sound active Neurologic: moving all limbs , very sedated , arousable Results & Data Results & Data ([facility]) Vital Signs (Past 12 Hours) Vital Signs Temp Pulse Resp BP Pulse Ox 11/04/20 11:41 36.7 C 91 H 15 115/83 96 11/04/20 07:49 37.0 C 96 H 12 119/75 92 11/04/20 04:47 36.9 C 85 16 163/99 H 94
[2020-11-04 12:47] LABS: Base Excess ABG 0.5 mEq/L (-9-1.8); HCO3 ABG 25 mmol/L (19-24); Oxygen Saturation ABG 96.6 % (90-95); PCO2 ABG 40 mmHg (35-46); PO2 ABG 87 mmHg (80-95); pH ABG 7.42 (7.35-7.45)
[2020-11-04 12:48] LABS: Allen Test Pos (Pos)
[2020-11-04 17:09] LABS: Amphetamines+Metham, Urine Neg (Neg); Barbiturates, Urine Neg (Neg); Benzodiazepine, Urine Neg (Neg); Cocaine, Urine Neg (Neg); MDMA (Ecstacy), Urine Neg (Neg); Methadone, Urine Neg (Neg); Opiate, Urine Neg (Neg); Phencyclidine, Urine Neg (Neg)
[2020-11-04] MEDS: RIVAROXABAN 20 MG TAB PO SCH (19:43)
[2020-11-04] MEDS: MAGNESIUM CHLORIDE 64MG DELAYED REL TAB PO SCH (19:43)
[2020-11-04] MEDS: cefTRIAXone SODIUM 2,000 MG in DEXTROSE 5% 50 ML IV SCH (19:43)
[2020-11-04] MEDS: NORTRIPTYLINE HCL 25 MG CAP PO SCH (19:43)
[2020-11-05] MEDS: INSULIN ASPART 100 UNITS/ML 3 ML PEN SC SCH ×5 (00:26→20:30)
[2020-11-05] MEDS: PANTOprazole 40 MG TAB PO SCH (06:02)
[2020-11-05] MEDS: LEVOTHYROXINE SODIUM 175 MCG TABLET PO SCH (06:02)
--- NOTE | 2020-11-05 08:55 | Gastroenterology Progress Note ---
Date of Service November 05, 2020 Assessment & Plan (1) Acute hepatic encephalopathy: 54 year old female with chronic comorbidities, medical noncompliance, MEEK admitted w/ AMS, infectious etiology negative to date, but more awake and alert this AM MELD 12 Infectious work up negative to datet Lactulose 30 gm QID Xifaxin 550 mg BID Recall GI as needed. Thank you for allowing us to participate in the care of this patient. Please call with any acute changes, questions or concerns. Please see addendum below with additional recommendation from my supervising physician. Admission and Anticipated Discharge Date Admission Date: November 03, 2020 Supervising Physician Co-Signing Physician Notes Patient feeling much better today PE - well nourished fm in and, HEENT - perrla, Abd obese soft MELD 12 Infectious workup negative DC on lactulose + xifaxan, avoid any other hepatotoxins. Subjective pt was seen and evaluated, chart reviewed. More awake again this morning Responding appropriately to questions although did need re-directed with recall of date No abd pain, nausea, vomiting reported she is unable to specify to me the frequency or colors of her BMs Cultures pending Toxicology negative to date Physical Exam Constitutional: WD/WN, vitals as above Eyes: PERRL, conjunctivae normal, anicteric sclerae Gastrointestinal (Abdomen): normal bowel sounds, soft, nontender, no hepatosplenomegaly obese abd Skin: no rashes, warm and dry Results & Data ([facility]) Vital Signs (Past 12 Hours) Vital Signs Temp Pulse Pulse Resp BP BP Pulse Ox 11/05/20 08:22 36.9 C 75 20 125/72 97 11/05/20 07:32 81 11/05/20 05:22 36.8 C 85 18 136/83 99 11/04/20 23:30 36.8 C 81 20 131/78 97
[2020-11-05] MEDS: SODIUM CHLORIDE 0.9% 1000ML 1,000 ML IV SCH (09:03)
[2020-11-05] MEDS: carvediloL 12.5 MG TAB PO SCH ×2 (09:04→20:29)
[2020-11-05] MEDS: FERROUS SULFATE 325 MG TAB PO SCH (09:05)
[2020-11-05] MEDS: DULoxetine HCL 60 MG CAP PO SCH ×2 (09:05→20:28)
[2020-11-05] MEDS: FAMOTIDINE 20 MG TAB PO SCH ×2 (09:05→20:29)
[2020-11-05] MEDS: LACTULOSE SYRUP 30 GM/45 ML UDP PO SCH ×5 (09:06→20:30)
[2020-11-05] MEDS: rifAXIMin 550 MG TABLET PO SCH ×2 (09:07→20:29)
[2020-11-05] MEDS: INSULIN GLARGINE SOLOSTAR 100 UNITS/ML 3 ML PEN SC SCH (09:35)
[2020-11-05] MEDS: DOXYCYCLINE HYCLATE 100 MG CAP PO SCH ×2 (12:54→18:33)
--- NOTE | 2020-11-05 14:29 | Pharmacy Report ---
Pharmacy Glycemic Short Note 2 - Date of Service November 05, 2020 - Glycemic Short BSG Results (Last 24 hours): 11/04/20 11/04/20 11/04/20 16:37 17:50 23:53 POC Glucose 89 104 H 150 H 11/05/20 11/05/20 05:59 11:23 POC Glucose 121 H 125 H OUTPATIENT ANTIDIABETIC REGIMEN: * Trulicity 1.5 mg weekly * Basaglar 120 units BID * Novolog 15 units TIDM ASSESSMENT: 11/05/20: * Patient received 33 units of insulin yesterday with excellent glycemic control. * 30 units of basal * 3 units of bolus * Pt NPO during this time * Fasting and post prandial BSGs at goal. No change in insulin dosing today. Background * 54yo T2DM female known to pharmacy from previous admissions/glycemic consults; most recently June 2020 * Pt uses large doses of insulin as an outpatient. Outpatient regimen is heavily weighted towards basal insulin indicating that her basal insulin is covering some prandial insulin needs. * Typically patient only requires ~112 units of insulin per day while admitted. Will initiate SQ basal bolus insulin regimen similar to June 2020 admission and titrate based on BSG trends. PLAN FOR INPATIENT GLYCEMIC CONTROL: * Hold outpatient SQ outpatient medications * Basal insulin * Lantus 30-40 units SQ daily * Bolus insulin * NovoLog per scale ACHS or Q6hrs while NPO * Goal Range: Low 110 mg/dL - High 140 mg/dL * Correction Factor: 10 mg/dL/unit * Nutritional / Prandial insulin per carb ratio of 1 unit per 3 grams CHO consumed PLAN FOR DISCHARGE: * A1c = 5.6% (11/04/20) * A1c indicates tight glycemic control. Consider reduction in insulin doses if patient is experiencing hypoglycemia at home.
--- NOTE | 2020-11-05 18:36 | Hospitalist Progress Note ---
Date of Service November 05, 2020 Assessment & Plan (1) Acute hepatic encephalopathy: Plan: Acute hepatic encephalopathy H/O MEEK Medication Non compliance -CT ABD:Hepatic steatosis. Hepatic cirrhosis and mild splenomegaly. No evidence of bowel obstruction. No evidence of free air. Surgically absent appendix. No evidence of acute diverticulitis. Prominent lymph nodes likely secondary to hepatocellular disease. Interval development of an L1 burst fracture with mild retropulsion. Multilevel spinal stenosis within the lumbar spine. Nonobstructing right renal calculus. Motion degraded study. -Elevated Ammonia level -MELD : 12 -Continue lactulose, Rifaximin Appreciate GI Input Mental status improved Periumbilical infection -CT ABD as above Continue Rocephin, Doxycycline Wound Cx:pending Blood Cx: Negative to date DM II Well-controlled Continue insulin therapy Monitor BGs Hypothyroidism Continue levothyroxine RIMA on Oxygen at bedtime Non compliance with CPAP Morbid obesity BMI 49.8 Chronic back Pain H/O Lumbar fracture H/O paroxysmal atrial fibrillation Continue Xarelto On Coreg H/O diastolic CHF No signs of Volume overload Resume diuretics as able DVT Px: On Xarelto Code Status Full Code Admission and Anticipated Discharge Date Admission Date: November 03, 2020 Subjective Patient is seen and examined at bedside More alert, awake today States having some abdominal discomfort Reports nausea but no vomiting Denies chest pain, dyspnea, dizziness Offers no other complaints Review of Systems Review of Systems: All systems reviewed & are unremarkable except as noted in Subjective Physical Exam Physical Exam: Physical Exam: Vitals signs as noted above General Appearance:Morbidly obese, no apparent distress Head: normocephalic, Atraumatic Eyes: normal inspection, EOMI Neck: supple, Trachea midline Respiratory/Chest: Normal breath sounds, CTA, No accessory muscle use Cardiovascular: S1, S2, No murmur Abdomen/GI:Soft, Non tender, Bowel sounds present Extremities/Musculoskeletal:normal inspection, no edema Neurologic/Psych:AAOX3, grossly no focal neurological deficits Skin: normal color, warm Results & Data Results & Data ([facility]) Vital Signs (Past 12 Hours) Vital Signs Temp Pulse Pulse Resp BP Pulse Ox 11/05/20 15:52 36.8 C 63 18 119/74 99 11/05/20 15:16 82 11/05/20 11:27 36.8 C 74 19 141/88 H 98 11/05/20 08:22 36.9 C 75 20 125/72 97 07/14/21 07:32 81
[2020-11-05] MEDS ORDERED: oxyCODONE HCL IR 5 MG TAB (IMMEDIATE RELEASE) PO STA (20:03)
[2020-11-05] MEDS: cefTRIAXone SODIUM 2,000 MG in DEXTROSE 5% 50 ML IV SCH (20:27)
[2020-11-05] MEDS: NORTRIPTYLINE HCL 25 MG CAP PO SCH (20:28)
[2020-11-05] MEDS: MAGNESIUM CHLORIDE 64MG DELAYED REL TAB PO SCH (20:28)
[2020-11-05] MEDS: RIVAROXABAN 20 MG TAB PO SCH (20:28)
[2020-11-06] MEDS ORDERED: oxyCODONE HCL IR 5 MG TAB (IMMEDIATE RELEASE) PO STA (04:35)
[2020-11-06] MEDS: LEVOTHYROXINE SODIUM 175 MCG TABLET PO SCH (05:56)
[2020-11-06] MEDS: PANTOprazole 40 MG TAB PO SCH (05:57)
[2020-11-06 06:16] LABS: Basophils # (auto) 0.03 K/uL (0-0.2); Basophils % (auto) 0.4 %; Eosinophils % (auto) 1.3 %; Hematocrit (blood only) 35.3 % (37-47); Hemoglobin 12.2 g/dL (12.0-16.0); Immature Granulocytes # (auto) 0.02 K/uL (0.00-0.02); Immature Granulocytes % (auto) 0.3 %; Lymphocytes # (auto) 2.27 K/uL (1.2-3.4); Lymphocytes % (auto) 30.4 %; Mean Corpuscular Hemoglobin 35.3 pg (25-34); Mean Corpuscular Hgb Conc 34.6 g/dL (32-36); Monocytes # (auto) 0.71 K/uL (0.11-0.59); Monocytes % (auto) 9.5 %; Neutrophils # (auto) 4.33 K/uL (1.4-6.5); Neutrophils % (auto) 58.1 %; Platelet Count 114 K/uL (130-400); RDW Standard Deviation 55.8 fL (36.4-46.3); Red Blood Count 3.46 M/uL (4.2-5.4); White Blood Count 7.46 K/uL (4.8-10.8)
[2020-11-06 06:47] LABS: BUN Creatinine Ratio 10.6 (10-20); Calcium 8.5 mg/dl (8.5-10.1); Creatinine Clr Calc Pharmacy 105.1 ml/min; Est GFR (Non-African American) 77.7 ml/min; Magnesium 1.6 mg/dl (1.8-2.4); Potassium 3.6 mmol/L (3.5-5.1)
[2020-11-06] MEDS ORDERED: MAGNESIUM SULFATE / D5W 1 GM/100 ML BAG IV ONE (08:51)
[2020-11-06] MEDS: INSULIN ASPART 100 UNITS/ML 3 ML PEN SC SCH ×4 (08:55→20:57)
[2020-11-06] MEDS: DOXYCYCLINE HYCLATE 100 MG CAP PO SCH ×2 (08:59→18:50)
[2020-11-06] MEDS: carvediloL 12.5 MG TAB PO SCH ×2 (09:00→20:13)
[2020-11-06] MEDS: DULoxetine HCL 60 MG CAP PO SCH ×2 (09:00→20:12)
[2020-11-06] MEDS: FERROUS SULFATE 325 MG TAB PO SCH (09:01)
[2020-11-06] MEDS: FAMOTIDINE 20 MG TAB PO SCH ×2 (09:01→20:11)
[2020-11-06] MEDS: INSULIN GLARGINE SOLOSTAR 100 UNITS/ML 3 ML PEN SC SCH (09:01)
[2020-11-06] MEDS: LACTULOSE SYRUP 30 GM/45 ML UDP PO SCH ×4 (09:02→20:13)
[2020-11-06] MEDS: rifAXIMin 550 MG TABLET PO SCH ×2 (09:02→20:12)
[2020-11-06] MEDS: oxyCODONE HCL IR 5 MG TAB (IMMEDIATE RELEASE) PO PRN ×2 (11:47→18:19)
--- NOTE | 2020-11-06 15:04 | Hospitalist Progress Note ---
Date of Service November 06, 2020 Assessment & Plan (1) Acute hepatic encephalopathy: Plan: Acute hepatic encephalopathy H/O MEEK Medication Non compliance -CT ABD:Hepatic steatosis. Hepatic cirrhosis and mild splenomegaly. No evidence of bowel obstruction. No evidence of free air. Surgically absent appendix. No evidence of acute diverticulitis. Prominent lymph nodes likely secondary to hepatocellular disease. Interval development of an L1 burst fracture with mild retropulsion. Multilevel spinal stenosis within the lumbar spine. Nonobstructing right renal calculus. Motion degraded study. -Elevated Ammonia level -MELD : 12 -Continue lactulose, Rifaximin Appreciate GI Input Mental status back to baseline Periumbilical infection -CT ABD as above Continue Rocephin, Doxycycline Wound Cx:pending Blood Cx: Negative to date Continue current medications DM II Well-controlled Continue insulin therapy Monitor BGs Hypothyroidism Continue levothyroxine RIMA on Oxygen at bedtime Non compliance with CPAP Morbid obesity BMI 49.8 Chronic back Pain H/O Lumbar fracture H/O paroxysmal atrial fibrillation Continue Xarelto On Coreg H/O diastolic CHF No signs of Volume overload Resume diuretics as able DVT Px: On Xarelto Code Status Full Code Admission and Anticipated Discharge Date Admission Date: November 03, 2020 Subjective Patient is seen and examined at bedside Mental status seem to be back to baseline Reports chronic back pain Nausea resolved Denies chest pain, dyspnea, dizziness Review of Systems Review of Systems: All systems reviewed & are unremarkable except as noted in Subjective Physical Exam Physical Exam: Physical Exam: Vitals signs as noted above General Appearance:Morbidly obese, no apparent distress Head: normocephalic, Atraumatic Eyes: normal inspection, EOMI Neck: supple, Trachea midline Respiratory/Chest: Normal breath sounds, CTA, No accessory muscle use Cardiovascular: S1, S2, No murmur Abdomen/GI:Soft, Non tender, Bowel sounds present Extremities/Musculoskeletal:normal inspection, no edema Neurologic/Psych:AAOX3, grossly no focal neurological deficits Skin: normal color, warm Results & Data Results & Data ([facility]) Vital Signs (Past 12 Hours) Vital Signs Temp Pulse Pulse Resp BP BP Pulse Ox 11/06/20 12:03 36.6 C 83 19 101/59 L 92 11/06/20 07:49 36.5 C 67 18 130/92 98 11/06/20 07:06 71 11/06/20 04:10 36.8 C 59 L 18 111/67 98 11/06/20 03:45 36.5 C 58 L 20 130/85 97 Laboratory Results Short CBC 11/06/20 Range/Units 06:07 WBC 7.46 (4.8-10.8) K/uL Hgb 12.2 (12.0-16.0) g/dL Hct 35.3 L (37-47) % Plt Count 114 L (130-400) K/uL BMP 11/06/20 06:07 Sodium 138 Potassium 3.6 Chloride 107 Carbon Dioxide 28 BUN 9 Creatinine 0.84 Glucose 211 H Calcium 8.5
[2020-11-06] MEDS: CARBOHYDRATES FOR HYPOGLYCEMIA PO PRN ×3 (17:12→17:46)
[2020-11-06] MEDS ORDERED: ONDANSETRON INJ 2 MG/ML 2 ML VIAL IV PRN (19:24)
[2020-11-06] MEDS: cefTRIAXone SODIUM 2,000 MG in DEXTROSE 5% 50 ML IV SCH (19:50)
[2020-11-06] MEDS: NORTRIPTYLINE HCL 25 MG CAP PO SCH (20:11)
[2020-11-06] MEDS: MAGNESIUM CHLORIDE 64MG DELAYED REL TAB PO SCH (20:11)
[2020-11-06] MEDS: RIVAROXABAN 20 MG TAB PO SCH (20:11)
[2020-11-06] MEDS: traZODone HCL 50 MG TAB PO SCH (20:12)
[2020-11-07] MEDS: INSULIN ASPART 100 UNITS/ML 3 ML PEN SC SCH ×4 (00:03→13:04)
[2020-11-07] MEDS: oxyCODONE HCL IR 5 MG TAB (IMMEDIATE RELEASE) PO PRN ×3 (00:04→11:38)
[2020-11-07] MEDS: PANTOprazole 40 MG TAB PO SCH (05:33)
[2020-11-07] MEDS: LEVOTHYROXINE SODIUM 175 MCG TABLET PO SCH (05:33)
[2020-11-07] MEDS: DOXYCYCLINE HYCLATE 100 MG CAP PO SCH (06:11)
[2020-11-07 06:49] LABS: Basophils # (auto) 0.04 K/uL (0-0.2); Basophils % (auto) 0.5 %; Eosinophils # (auto) 0.19 K/uL (0-0.5); Eosinophils % (auto) 2.2 %; Hematocrit (blood only) 34.7 % (37-47); Hemoglobin 11.8 g/dL (12.0-16.0); Immature Granulocytes # (auto) 0.02 K/uL (0.00-0.02); Immature Granulocytes % (auto) 0.2 %; Lymphocytes # (auto) 2.74 K/uL (1.2-3.4); Mean Corpuscular Hemoglobin 35.1 pg (25-34); Mean Corpuscular Volume 103.3 fL (80-100); Mean Platelet Volume 9.4 fL (7.4-10.4); Monocytes # (auto) 1.08 K/uL (0.11-0.59); Monocytes % (auto) 12.2 %; Neutrophils # (auto) 4.76 K/uL (1.4-6.5); Neutrophils % (auto) 53.9 %; Platelet Count 132 K/uL (130-400); RDW Coefficient of Variation 14.9 % (11.5-14.5); RDW Standard Deviation 56.2 fL (36.4-46.3); Red Blood Count 3.36 M/uL (4.2-5.4); White Blood Count 8.83 K/uL (4.8-10.8)
[2020-11-07 07:17] LABS: BUN Creatinine Ratio 11.1 (10-20); Calcium 8.4 mg/dl (8.5-10.1); Creatinine Clr Calc Pharmacy 113.2 ml/min; Est GFR (African American) 98.5 ml/min; Magnesium 1.9 mg/dl (1.8-2.4); Potassium 3.3 mmol/L (3.5-5.1)
[2020-11-07] MEDS: LACTULOSE SYRUP 30 GM/45 ML UDP PO SCH ×2 (09:16→13:06)
[2020-11-07] MEDS: DULoxetine HCL 60 MG CAP PO SCH (09:16)
[2020-11-07] MEDS ORDERED: POTASSIUM CHLORIDE CRTAB 20 MEQ TABCR PO ONE (09:24)
[2020-11-07] MEDS: INSULIN GLARGINE SOLOSTAR 100 UNITS/ML 3 ML PEN SC SCH ×2 (09:45→11:06)
[2020-11-07] MEDS: FAMOTIDINE 20 MG TAB PO SCH (09:51)
[2020-11-07] MEDS: carvediloL 12.5 MG TAB PO SCH (09:51)
[2020-11-07] MEDS: FERROUS SULFATE 325 MG TAB PO SCH (09:51)
--- NOTE | 2020-11-07 10:18 | Pharmacy Report ---
Pharmacy Glycemic Short Note 2 - Date of Service November 07, 2020 - Glycemic Short BSG Results (Last 24 hours): 11/06/20 11/06/20 11/06/20 11:27 17:08 17:10 Glucose POC Glucose 236 H 46 L* 47 L* 11/06/20 11/06/20 11/06/20 17:26 17:28 17:40 Glucose POC Glucose 53 L* 51 L* 69 L* 11/06/20 11/06/20 11/06/20 17:41 17:59 20:51 Glucose POC Glucose 63 L* 78 300 H 11/06/20 11/07/20 11/07/20 23:40 04:11 06:23 Glucose 93 POC Glucose 273 H 75 11/07/20 07:57 Glucose POC Glucose 83 OUTPATIENT ANTIDIABETIC REGIMEN: * Trulicity 1.5 mg weekly * Basaglar 120 units BID * Novolog 15 units TIDM * HbA1c = 5.6% (11/04/20) ASSESSMENT: 11/07: * Desi received a total of 130 units of insulin yesterday * 40 units basal + 90 units bolus * BSGs were uncontrolled: 142-359-16-78-300-273 mg/dL * Patient had an episode of symptomatic hypoglycemia last night at dinner which required 90 grams of CHO to correct * This was likely due to stacking of large doses of bolus insulin with breakfast and lunch * Fasting BSG was well controlled but below goal at 83 mg/dL this AM * Reduced Lantus to 20 units this AM (50% reduction in basal dose). * RN held Lantus this AM by mistake. Despite significant drop in fasting BSG, patient will require basal insulin to control BSGs throughout the day and prevent hypoglycemia from receiving too much bolus insulin to correct BSGs if basal is not given. 11/05: * Patient received 33 units of insulin yesterday with excellent glycemic control. * 30 units of basal * 3 units of bolus * Pt NPO during this time * Fasting and post prandial BSGs at goal. No change in insulin dosing today. Background * 54yo T2DM female known to pharmacy from previous admissions/glycemic consults; most recently June 2020 * Pt uses large doses of insulin as an outpatient. Outpatient regimen is heavily weighted towards basal insulin indicating that her basal insulin is covering some prandial insulin needs. * Typically patient only requires ~112 units of insulin per day while admitted. Will initiate SQ basal bolus insulin regimen similar to June 2020 admission and titrate based on BSG trends. PLAN FOR INPATIENT GLYCEMIC CONTROL: * Basal insulin * Lantus 20-30 units SQ daily (see eMAR for more details) * Bolus insulin * NovoLog per scale ACHS or Q6hrs while NPO * Goal Range: Low 110 mg/dL - High 140 mg/dL * Correction Factor: 10 mg/dL/unit * Nutritional / Prandial insulin per carb ratio of 1 unit per 3 grams CHO consumed PLAN FOR DISCHARGE: * A1c = 5.6% (11/04/20) * A1c indicates tight glycemic control. Consider reduction in insulin doses if patient is experiencing hypoglycemia at home.
[2020-11-07] MEDS: rifAXIMin 550 MG TABLET PO SCH (12:00)
--- NOTE | 2020-11-07 13:53 | Hospitalist Progress Note ---
Date of Service November 07, 2020 Assessment & Plan (1) Acute hepatic encephalopathy: Plan: Acute hepatic encephalopathy H/O MEEK Medication Non compliance -CT ABD:Hepatic steatosis. Hepatic cirrhosis and mild splenomegaly. No evidence of bowel obstruction. No evidence of free air. Surgically absent appendix. No evidence of acute diverticulitis. Prominent lymph nodes likely secondary to hepatocellular disease. Interval development of an L1 burst fracture with mild retropulsion. Multilevel spinal stenosis within the lumbar spine. Nonobstructing right renal calculus. Motion degraded study. -Elevated Ammonia level -MELD : 12 -Continue lactulose, Rifaximin Appreciate GI Input Mental status back to baseline Explained importance of being compliant with medication use Advised to follow-up with gastroenterology as outpatient Periumbilical infection -CT ABD as above Continue Rocephin, Doxycycline Wound Cx: Mixed skin donnie Blood Cx: Negative to date Continue current medications DM II Well-controlled Continue insulin therapy Monitor BGs Hypothyroidism Continue levothyroxine RIMA on Oxygen at bedtime Non compliance with CPAP Morbid obesity BMI 49.8 Chronic back Pain H/O Lumbar fracture H/O paroxysmal atrial fibrillation Continue Xarelto On Coreg H/O diastolic CHF No signs of Volume overload Resume diuretics as able DVT Px: On Xarelto Code Status Full Code Disposition Not interested in home health or rehab placement Admission and Anticipated Discharge Date Admission Date: November 03, 2020 Subjective Patient is seen and examined at bedside No new complaints Feels well today Reports chronic back pain Denies chest pain, dyspnea, dizziness Eager to get discharged Review of Systems Review of Systems: All systems reviewed & are unremarkable except as noted in Subjective Physical Exam Physical Exam: Physical Exam: Vitals signs as noted above General Appearance:Morbidly obese, no apparent distress Head: normocephalic, Atraumatic Eyes: normal inspection, EOMI Neck: supple, Trachea midline Respiratory/Chest: Normal breath sounds, CTA, No accessory muscle use Cardiovascular: S1, S2, No murmur Abdomen/GI:Soft, Non tender, Bowel sounds present Extremities/Musculoskeletal:normal inspection, no edema Neurologic/Psych:AAOX3, grossly no focal neurological deficits Skin: normal color, warm Results & Data Results & Data ([facility]) Vital Signs (Past 12 Hours) Vital Signs Temp Pulse Resp BP Pulse Ox 11/07/20 09:53 109 H 109/62 11/07/20 07:32 36.5 C 89 22 142/61 H 91 Laboratory Results Short CBC 11/07/20 Range/Units 06:23 WBC 8.83 (4.8-10.8) K/uL Hgb 11.8 L (12.0-16.0) g/dL Hct 34.7 L (37-47) % Plt Count 132 (130-400) K/uL BMP 11/07/20 06:23 Sodium 137 Potassium 3.3 L Chloride 108 H Carbon Dioxide 27 BUN 9 Creatinine 0.78 Glucose 93 Calcium 8.4 L
--- NOTE | 2020-11-07 14:23 | Discharge Summary ---
Date of Service November 07, 2020 Admission HPI Per Admitting Provider CHIEF COMPLAINT: Confusion. HISTORY OF PRESENT ILLNESS: This is a 54-year-old female with past medical history significant for type 2 diabetes with long-term insulin use, hyperlipidemia, hypothyroidism, COPD, obstructive sleep apnea, noncompliance with CPAP, hypertension, GERD, cirrhosis, MEEK, bipolar 1, morbidly obese, noncompliant, drug dependence narcotic use, was brought in by her significant other because of confusion at home. She was confused and she fell while going to the bathroom and was brought in here. She has multiple admissions for hepatic encephalopathy, her ammonia level was found to be 76. She recently also found to have spine compression fracture, seems to be following with pain management in [place]. The patient currently oriented to name only. She has complaints of abdominal pain. Denies any chest pain. She has some headache, no cough, no fevers, no nausea, hemodynamically stable. Her magnesium is 1.6, alkaline phosphatase 200, which seems to be chronically elevated. SARS-CoV-[address] abdomen and pelvis was ordered because complaints of abdominal pain showing no evidence of bowel obstruction, no evidence of free air, no evidence of diverticulitis, hepatic steatosis, hepatic cirrhosis. There is no ascites. Admission Exam Per Admitting Provider PHYSICAL EXAMINATION: VITAL SIGNS: Temperature 36.6, pulse 118, respiratory rate 19, blood pressure 160/104, oxygen 98% on room air. HEENT: Pupils equal, round and reactive to light. Oral mucosa moist. NECK: No JVD or neck masses seen. CVS: S1 and S2, regular rhythm. No murmur, no gallop. RESPIRATORY: Normal AP diameter. No accessory muscle use. No wheezing, no crackles. ABDOMEN: Soft, bowel sounds present. No panniculitis is seen. No guarding, no rigidity. CENTRAL NERVOUS SYSTEM: Alert and somewhat drowsy, but arousable and oriented to name only. Obeys simple commands, answers simple questions. Moves extrem ities. EXTREMITIES: Lower extremity, chronic skin changes seen. No erythema seen. Principal Diagnosis Acute hepatic encephalopathy Periumbilical infection Discharge Data Allergies Allergy/AdvReac Type Severity Reaction Status Date / Time Iodinated Contrast Media Allergy Intermediate hives-PT Verified 08/22/20 19:01 DENIES SEE NOTE adhesive Allergy Mild RED RASH Verified 08/22/20 19:01 CAUSED BY PAPER TAPE vancomycin AdvReac Severe renal Verified 08/22/20 19:01 failure, required dialysis x 3 MONTHS acetaminophen AdvReac Intermediate Liver Verified 08/22/20 19:01 problems. alprazolam AdvReac Intermediate MAKES Verified 08/22/20 19:01 LOOPY,DO AND SAY SILLY THINGS codeine AdvReac Intermediate UPSET Verified 08/22/20 19:01 STOMACH haloperidol AdvReac Intermediate nervous Verified 08/22/20 19:01 and anxious metformin AdvReac Intermediate HANDS FEET Verified 08/22/20 19:01 FACE NUMB methylparaben AdvReac Intermediate FLUID Verified 08/22/20 19:01 RETENTION morphine AdvReac Intermediate SWELLING Verified 08/22/20 19:01 LEGS AND FEET oxymorphone AdvReac Intermediate FLUID Verified 08/22/20 19:01 RETENTION pregabalin AdvReac Intermediate Aphasia/Speech Verified 08/22/20 19:01 impairments gabapentin AdvReac Mild Aphasia/Speech Verified 08/22/20 19:01 impairments Sulfa (Sulfonamide AdvReac Mild GI SYMPTOMS Verified 08/22/20 19:01 Antibiotics) Consultations 11/03/20 06:01 ED Decision to Admit Stat 11/03/20 08:51 Consult Gastroenterology Routine Ordered Studies 11/03/20 06:46 CT abd pelvis wo con Stat Hospital Course (1) Acute hepatic encephalopathy: Acute hepatic encephalopathy H/O MEEK Medication Non compliance -CT ABD:Hepatic steatosis. Hepatic cirrhosis and mild splenomegaly. No evidence of bowel obstruction. No evidence of free air. Surgically absent appendix. No evidence of acute diverticulitis. Prominent lymph nodes likely secondary to hepatocellular disease. Interval development of an L1 burst fracture with mild retropulsion. Multilevel spinal stenosis within the lumbar spine. Nonobstructing right renal calculus. Motion degraded study. -Elevated Ammonia level -MELD : 12 -Continue lactulose, Rifaximin Appreciate GI Input Mental status back to baseline Explained importance of being compliant with medication use Advised to follow-up with gastroenterology as outpatient Periumbilical infection -CT ABD as above Continue Rocephin, Doxycycline Wound Cx: Mixed skin donnie Blood Cx: Negative to date Continue current medications DM II Well-controlled Continue insulin therapy Monitor BGs Hypothyroidism Continue levothyroxine RIMA on Oxygen at bedtime Non compliance with CPAP Morbid obesity BMI 49.8 Chronic back Pain H/O Lumbar fracture H/O paroxysmal atrial fibrillation Continue Xarelto On Coreg H/O diastolic CHF No signs of Volume overload Resume diuretics as able DVT Px: On Xarelto Code Status Full Code Disposition Not interested in home health or rehab placement Total Time Total Time Spent Total Time Spent (In Minutes): 42 minutes Discharge Plan Discharge Items Patient Disposition: Home - Self-Care Reason For Visit: AMONIA LEVELS HIGH Discharge Diagnosis: Acute hepatic encephalopathy Periumbilical infection Activity: Per Instructions section Exercise/Sports: Gradually increase as tolerated Non-emergency contact: Primary Care Provider and Occupational Therapist Per Diem Call non-emergency contact if: you have any medication questions, your symptoms worsen, your pain is concerning for you, you have a fever, your wound has increased redness, your wound has increased drainage and your wound pain has increased Follow-up/Referrals: Dewey Mcfadden, [Primary Care Provider] - 11/12/20 9:00 am (Date & Time 11/12/2020 9:00 AM Provider Gary Burris MD [facility] ) Diet: Carb Consistent or DM2 and Heart Healthy Addtl Attending Provider Instructions: Follow up with your primary care physician on 11/12/2020 9:00 AM Follow-up with your warehouse processor as recommended Complete antibiotic course as prescribed. Check your blood glucose levels daily. If you notice low blood glucose levels, discussed with your physician for further adjustment of insulin therapy to minimize hypoglycemia. Titrate lactulose to have 2-3 good bowel movements daily as recommended. Your Basaglar Insulin is decreased to 60 units twice a day given hypoglycemic episodes during your hospitalization. Further adjustment as per your physician. Your final blood cultures are pending at the time of discharge. Follow-up with your physician for results. Seek immediate medical attention if your symptoms reoccur or worsen Please take all medications as instructed on discharge list below. Please call if you have any questions or problems. You can reach a [facility] hospitalist on duty at [facility] 24 hours a day by calling [phone] Pending Studies at Discharge: Yes Studies:: Blood Cultures Stand-Alone Forms: My [facility] [employer], Smoking Cessation Medications and DC Order Prescriptions: New doxycycline hyclate 100 mg Capsule 100 mg PO BID@0700,1900 Qty: 8 RF: 0 Continued pantoprazole 40 mg tablet,delayed release (DR/EC) 40 mg PO DAILYBB RF: 0 ferrous sulfate 325 mg (65 mg iron) tablet 325 mg PO QAM RF: 0 albuterol sulfate [Ventolin HFA] 90 mcg/actuation HFA aerosol inhaler 2 puff inhalation Q4H PRN (Reason: Shortness Of Breath) RF: 0 trazodone 50 mg tablet 50 mg PO HS RF: 0 albuterol sulfate 2.5 mg /3 mL (0.083 %) solution for nebulization 2.5 mg inhalation Q4 PRN (Reason: Shortness Of Breath) RF: 0 levothyroxine 175 mcg tablet 175 mcg PO DAILY RF: 0 prochlorperazine maleate [Compazine] 5 mg tablet 5 mg PO TID PRN (Reason: Nausea) RF: 0 insulin aspart U-100 [Novolog Flexpen U-100 Insulin] 100 unit/mL (3 mL) insulin pen 15 unit SUBCUT TIDM RF: 0 duloxetine [Cymbalta] 60 mg capsule,delayed release(DR/EC) 60 mg PO BID RF: 0 Xarelto 20 mg tablet 20 mg PO PM RF: 0 furosemide [Lasix] 20 mg Tablet 20 - 60 mg PO QAM PRN (Reason: Edema) RF: 0 carvedilol 12.5 mg Tablet 12.5 mg PO BID RF: 0 nortriptyline [Pamelor] 25 mg Capsule 25 mg PO HS RF: 0 Trulicity 1.5 mg/0.5 mL pen injector 1.5 mg SUBCUT WK RF: 0 Xifaxan 550 mg Tablet 550 mg PO BID Qty: 60 RF: 0 famotidine 20 mg tablet 20 mg PO BID RF: 0 magnesium chloride 64 mg tablet,delayed release (DR/EC) 64 mg PO PM RF: 0 Belbuca 150 mcg film 600 mcg BUCCAL BID RF: 0 prednisone 20 mg Tablet 40 mg PO DAILY Qty: 2 RF: 0 spironolactone [Aldactone] 25 mg tablet 50 mg PO BID RF: 0 ibuprofen [Advil] 200 mg Tablet 800 mg PO Q6H PRN (Reason: Pain) RF: 0 oxycodone 15 mg tablet 15 mg PO QID PRN (Reason: Pain) Qty: 0 RF: 0 Changed lactulose [Constulose] 10 gram/15 mL solution 30 ml PO QID Qty: 0 RF: 0 Basaglar KwikPen U-100 Insulin 100 unit/mL (3 mL) insulin pen 60 unit SUBCUT BID Qty: 0 RF: 0 Discharge Orders: Discharge Order (Routine); Ordered 11/07/20 Ordered By: Geoffrey Luo/Other Patient Handouts: Ammonia, Hepatic Encephalopathy Admission Data Admit Date/Time: 11/03/20 06:46 Attending Provider: Geoffrey Card Admit Provider: Izaiah Gage Primary Care Provider: Dewey Mcfadden Other Providers: Izaiah Gage ; See Ramirez ; Pauline Cisneros ; Vicky Patterson ; Kait Zavaleta ; Carlos Jones ; Jamie Guadalupe ; Eloy Cantu ; Oscar Cleveland ; Janett Rizvi ; Skyla Mathew ; Rosa Rosado ; Sofia Saleh ; Hilton Morgan Other Interventions: Discharge Summary Assessment (RN) Last Done: 11/07/20 15:23
--- NOTE | 2020-11-18 13:52 | Coding Query ---
CODING QUERY To promote full compliance with coding requirements relating to patient care, provider participation is requested in all cases of barrel charrer uncertainty. Please assist us with the question(s) below: Coding Question(s): Periumbilical Infection is documented beginning on Progress Note 11/05 and through the Discharge Summary. Please Specify below, regarding Periumbilical Infection. ( x) Skin Infection, Unspecified ( ) Skin Infection, Other: Please Specify ( ) Other Infection, Please Specify Please clarify below, regarding the present on admission status of the Periumbilical Infection. ( x ) Present on Admission ( ) Not Present on Admission ( ) Unknown if present on admission Physician's Response(s): Thank you Yuridia Cisneros Principal Diagnosis: "that condition established after study, to be chiefly responsible for occasioning the admission of the patient to the hospital for care." Co-Existing Principal Diagnosis: "when two or more diagnoses equally meet the criteria for principal diagnosis as determined by the circumstances of admission, diagnostic work up, and/or therapy provided, and the Alphabetic Index, Tabular List, or another coding guideline does not provide sequencing direction, any one of the diagnoses may be sequenced first." "When the physician has documented what appears to be a current diagnosis in the body of the record, but has not included the diagnosis in the final diagnostic statement, the physician should be asked whether the diagnosis should be added." (Source Coding Clinic 2 QTR90. p3-4) CYNTHIA
== END 2020-11-07 16:51 | disposition home or self-care (01) | DRG 442 ==
LOC: ED 04:41 → SUATTDRO 06:46 → 2S 06:46 → 3W 11-06 11:45

== ENCOUNTER 2020-11-08 23:26 | Inpatient (IN) ==
[2020-11-08] MEDS ORDERED: PANTOprazole 80 MG in DEXTROSE 5% 100 ML IV STA (23:53)
[2020-11-08] MEDS ORDERED: SODIUM CHLORIDE 0.9% 1000ML 500 ML IV ONE (23:53)
--- NOTE | 2020-11-09 00:02 | Emergency Department Note ---
Impression & Plan Acute hypotension, Acute renal insufficiency, Acute dehydration, Heme positive stool ED Provider Note Name: EMANUEL MOSS Age: 54 Sex: F Arrives Via: Walk-In Informant: Patient. Significant other ED Provider: Nic Joseph MD Chief Complaint: Generalized weakness Impression: Acute Hypotension Acute Renal Insufficiency Acute Dehydration Heme Positive Stool Medical Decision Makin yr old female with extensive prolonged medical conditions and frequent hospitalizations arrives 1 day after discharge following hepatic encephalopathy. She arrives quite somnolent though no overt confusion. Very weak on evaluation and unable to even sit up. Initial BP hypotensive and thus fluids given. Second bolus NSS given as still a bit hypotensive with good return BP. Patient reports black stools. On exam stool is brown with slight black flecks that are heme positive. Given Protonix initially for management of UGI though I will note Hgb returned normal for her and I am suspicious that this is not actually a GI bleed. She is not febrile and Labs reveal renal insufficiency new from previous. She further more is a bit on hypoglycemic side which would go along with poor oral intake. CXR with congestive findings, though also poor inspiratory effort, though BP improved so no need for further fluid bolus. UA consistent with contamination and without fever nor significant wbc elevation will hold off on abx at this time. Given multiple issues and findings I did consult hospitalist who brought her in for further management. Triage/Nursing Notes reviewed by Me Differentials:Infection, dehydration, metabolic abnormality, hypo/hyperglycemia, electrolyte disturbance, anemia, hypoxia, cardiac sources, intracerebral event, toxicologic, neurologic, as well as other pathologies. amongst other pathologies. Vital Signs: reviewed and remarkable for Hypotension Interventions: NSS bolus 1.5L IV, Protonix 80mg IV Labs:Reviewed and remarkable for elevated Cr Imaging:X ray results are stated below per my interpretation: Chest: 1 view: Congestive vs poor inspiratory pattern EKG:Per My Interpretation: Indication Weakness: NSR 61 bpm, qtc 479 with 1st av block, PAC and similar morphology with improved HR compared to previous EKG 04/14. No Ischemia. Cardiac/Tele Monitoring: Cardiac Monitoring: An Order was placed for continuous cardiac monitoring. The monitor shows a rate of 60 with a normal sinus rhythm. Consults:Dr Jaky Sanchez Hospitalist Plan: Disposition:Hospitalization. Condition: Fair History of Present Illness:54 yr old female arrives for evaluation of weakness. Patient recently hospitalized for hepatic encephalopathy. Since returning home yesterday she has been having worsening weakness. Unable to get out of bed and has been stooling on herself. She has been having hallucinations and confusion with things at home. She was able to eat dinner tonight per significant other. She has been having black stools at home as well this evening. Notes chronic back pain but otherwise no other acute pain. Denies fevers, chills, nausea, vomiting, headache, chest pain, sob, syncope, rashes nor other symptoms. Per significant other she is too weak to even sit up and states she is worse than when she was admitted last week. No falls, trauma, injuries. She reports taking her lactulose without improvement. ROS: See above HPI for pertinent positives & negatives. A total of 10 systems reviewed and were otherwise negative. Past Medical History:See Below Past Surgical History:See Below Family History:See Below Social History:See Below Home Medications:See Below Allergies:See Below Vitals:Blood Pressure: 90/60, Pulse 59, RR 22, T 35.4C, O2 98% on RA Physical Exam: GENERAL: Patient is chronically unwell appearing and in no acute distress. Diffusely weak. EYES: No scleral icterus, unremarkable pupils. ENT: Mucous membranes moist, no nasal congestion. NECK: No masses appreciated, nomeningismus, trachea is midline. RESPIRATORY: No dyspnea. Clear to auscultation and equal bilaterally. No wheeze, no rhonchi. CARDIOVASCULAR: Regular rate and rhythm.No murmurs, rubs, gallops appreciated. GASTROINTESTINAL: Abdomen soft, non-tender, no peritonitis.Distant bowel sounds bowel sounds positive.No masses appreciated. RECTAL: Normal perirectal, brown stool with specks black stool which is faintly heme positive. No overt blood appreciated BACK: No midline tenderness, no CVA tenderness EXTREMITIES: Normal motion all extremities, no cyanosis, ++ bilateral chronic edema and venous stasis NEUROLOGIC: Sleepy/somnolent, periodic twitching of shoulders though not encephalopathic, no seizure, weakly moves extremities, no focal weakness nor CN deficits appreciated SKIN: Diffuse bruising from IVs and sub q meds. No rash, no jaundice, no diaphoresis. PSYCH: Appropriate GCS: 14 ED Course: Times/Reassessments: stable, breathing comfortably, a bit more with it with IV fluids than on arrival Nic Joseph MD Past Med/Surg History Medical History Abdominal wall cellulitis Acute hepatic encephalopathy Bowel obstruction Cauda equina compression Cellulitis and abscess of trunk (Unknown) Chronic low back pain COPD, group D, by GOLD 2017 classification Deep vein blood clot of left lower extremity RIGHT AND LEFT LEG AND THEN MOVED LUNG - 2002 Diabetes Diabetic neuropathy (01/04/11) Fracture of fourth metatarsal bone of left foot Gastritis Hyperammonemia Hypokalemia Hypomagnesemia Incarcerated ventral hernia Kidney stone HX OF AND HAD LITHOTRIPSY RIMA (obstructive sleep apnea) HX OF AND NO CURRENT PROBLEM Paroxysmal A-fib 2013 on Xarelto Pyelonephritis Rectal bleeding Septic shock Severe sepsis Splenomegaly, not elsewhere classified Supratherapeutic INR UTI (urinary tract infection) Surgical History History of appendectomy History of arthroplasty of right knee Hx of lithotripsy Hx of ventral hernia repair S/P cholecystectomy S/P sinus surgery S/P MARLEE (total abdominal hysterectomy) Family History Father Cancer Liver Brother Kidney disease Renal failure Cirrhosis Brother Cirrhosis Other Family history non-contributory Social History Smoking Status: Current every day smoker Tobacco Type: Cigarettes Cigarettes Per Day: 1/2 PPD; Second Hand Exposure: Yes; Hx Alcohol Use: No Hx Substance Use: No Preferred Language: Sami Communication Ability: Unable 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 Beliefs That Will Affect Care: None marital status: Current Living Situation: Significant Other Current Living Situation Comment: per ER documentation, pt resides with significant other current occupational status: disabled Feels Safe at Home: Yes Assistive Devices: Oxygen - Continuous Allergies Allergies Allergy/AdvReac Type Severity Reaction Status Date / Time Iodinated Contrast Media Allergy Intermediate hives-PT Verified 11/09/20 00:24 DENIES SEE NOTE adhesive Allergy Mild RED RASH Verified 11/09/20 00:24 CAUSED BY PAPER TAPE vancomycin AdvReac Severe renal Verified 11/09/20 00:24 failure, required dialysis x 3 MONTHS acetaminophen AdvReac Intermediate Liver Verified 11/09/20 00:24 problems. alprazolam AdvReac Intermediate MAKES Verified 11/09/20 00:24 LOOPY,DO AND SAY SILLY THINGS codeine AdvReac Intermediate UPSET Verified 11/09/20 00:24 STOMACH haloperidol AdvReac Intermediate nervous Verified 11/09/20 00:24 and anxious metformin AdvReac Intermediate HANDS FEET Verified 11/09/20 00:24 FACE NUMB methylparaben AdvReac Intermediate FLUID Verified 11/09/20 00:24 RETENTION morphine AdvReac Intermediate SWELLING Verified 11/09/20 00:24 LEGS AND FEET oxymorphone AdvReac Intermediate FLUID Verified 08/22/20 19:01 RETENTION pregabalin AdvReac Intermediate Aphasia/Speech Verified 08/22/20 19:01 impairments gabapentin AdvReac Mild Aphasia/Speech Verified 08/22/20 19:01 impairments Sulfa (Sulfonamide AdvReac Mild GI SYMPTOMS Verified 08/22/20 19:01 Antibiotics) Home Meds Home Medications Medication Instructions Recorded Confirmed duloxetine 60 mg capsule,delayed 60 mg PO BID 03/12/19 11/09/20 release (Cymbalta) furosemide 20 mg tablet (Lasix) 20 - 60 mg PO QAM PRN 03/12/19 11/09/20 insulin aspart U-100 100 unit/mL 15 unit SUBCUT TIDM 03/12/19 11/09/20 (3 mL) subcutaneous pen (Novolog Flexpen U-100 Insulin aspart) prochlorperazine maleate 5 mg 5 mg PO TID PRN 03/12/19 11/09/20 tablet (Compazine) rivaroxaban 20 mg tablet (Xarelto) 20 mg PO PM 03/12/19 11/09/20 carvedilol 12.5 mg tablet 12.5 mg PO BID 03/21/19 11/09/20 nortriptyline 25 mg capsule 25 mg PO HS 03/21/19 11/09/20 (Pamelor) dulaglutide 1.5 mg/0.5 mL 1.5 mg SUBCUT WK 07/13/19 11/09/20 subcutaneous pen injector (Trulicity) albuterol sulfate 90 mcg/actuation 2 puff INHALATION Q4H PRN 08/01/19 11/09/20 aerosol inhaler (Ventolin HFA) ferrous sulfate 325 mg (65 mg 325 mg PO QAM 08/01/19 11/09/20 iron) tablet pantoprazole 40 mg tablet,delayed 40 mg PO DAILYBB 08/01/19 11/09/20 release trazodone 50 mg tablet 50 mg PO HS 08/29/19 11/09/20 famotidine 20 mg tablet 20 mg PO BID 09/17/19 11/09/20 albuterol sulfate 2.5 mg INHALATION Q4 PRN 10/04/19 11/09/20 magnesium chloride 64 mg 64 mg PO PM 10/05/19 11/09/20 (magnesium chloride) tablet,delayed release levothyroxine 175 mcg tablet 175 mcg PO DAILY 11/20/19 11/09/20 buprenorphine HCl 150 mcg buccal 600 mcg BUCCAL BID 07/20/20 11/09/20 film ([place]) ibuprofen 200 mg tablet (Advil) 800 mg PO Q6H PRN 08/22/20 11/09/20 spironolactone 25 mg tablet 50 mg PO BID 08/22/20 11/09/20 (Aldactone) Previous Rx's Medication Instructions Recorded rifaximin 550 mg tablet (Xifaxan) 550 mg PO BID #60 tab 08/15/19 prednisone 20 mg tablet 40 mg PO DAILY #2 tab 07/26/20 doxycycline hyclate 100 mg capsule 100 mg PO BID@0700,1900 #8 cap 11/07/20 insulin glargine 100 unit/mL (3 60 unit SUBCUT BID #0 ml 11/07/20 mL) subcutaneous pen (Basaglar KwikPen U-100 Insulin) lactulose 10 gram/15 mL oral 30 ml PO QID #0 ml 11/07/20 solution (Constulose) oxycodone 15 mg tablet 15 mg PO QID PRN #0 tab 11/07/20 Results & Data (ED) Vital Signs Vital Signs - 24 hr 11/08/20 23:32 11/09/20 00:10 11/09/20 00:30 Temperature 35.4 C L Temperature Source Temporal Artery Scan Pulse Rate 59 L 54 L 52 L Pulse Rate from SpO2 Sensor 54 L 52 L Respiratory Rate 22 12 16 Blood Pressure 90/60 L 84/55 L 84/62 L Blood Pressure Mean 70 64 69 Pulse Oximetry 98 100 96 Oxygen Delivery Method Room Air Sepsis Recent Fever Within 48 Hours No Sepsis New/Unexplained Change in Mental Status Yes Sepsis Action Taken by Nursing MD Previously Notified 11/09/20 01:00 11/09/20 01:30 11/09/20 02:30 Temperature Temperature Source Pulse Rate 50 L 49 L 49 L Pulse Rate from SpO2 Sensor 49 L 49 L 48 L Respiratory Rate 04 11 18 Blood Pressure 102/63 96/58 L 124/70 Blood Pressure Mean 76 70 88 Pulse Oximetry 99 100 99 Oxygen Delivery Method Sepsis Recent Fever Within 48 Hours Sepsis New/Unexplained Change in Mental Status Sepsis Action Taken by Nursing 11/09/20 04:31 Temperature Temperature Source Pulse Rate 50 L Pulse Rate from SpO2 Sensor 51 L Respiratory Rate 22 Blood Pressure 120/84 Blood Pressure Mean 96 Pulse Oximetry 99 Oxygen Delivery Method Sepsis Recent Fever Within 48 Hours Sepsis New/Unexplained Change in Mental Status Sepsis Action Taken by Nursing Laboratory Data Result diagrams: 11/09/20 02:47 11/09/20 02:47 Lab Results 11/09/20 11/09/20 11/09/20 Range/Units 00:06 00:06 00:06 WBC 12.11 H (4.8-10.8) K/uL RBC 3.43 L (4.2-5.4) M/uL Hgb 12.4 (12.0-16.0) g/dL Hct 35.7 L (37-47) % MCV 104.1 H (80-100) fL MCH 36.2 H (25-34) pg MCHC 34.7 (32-36) g/dL RDW Std Deviation 56.6 H (36.4-46.3) fL RDW Coeff of Mari 15.6 H (11.5-14.5) % Plt Count 158 (130-400) K/uL MPV 9.2 (7.4-10.4) fL Immature Gran % (Auto) 0.2 % Neut % (Auto) 54.4 % Lymph % (Auto) 31.5 % [place] % (Auto) 11.4 % Eos % (Auto) 2.1 % Baso % (Auto) 0.4 % Neut # (Auto) 6.58 H (1.4-6.5) K/uL Lymph # (Auto) 3.81 H (1.2-3.4) K/uL [place] # (Auto) 1.38 H (0.11-0.59) K/uL Eos # (Auto) 0.26 (0-0.5) K/uL Baso # (Auto) 0.05 (0-0.2) K/uL Immature Gran # (Auto) 0.03 H (0.00-0.02) K/uL PT (9.0-12.0) Seconds INR (0.9-1.1) Sodium (136-145) mmol/L Potassium (3.5-5.1) mmol/L Chloride (98-107) mmol/L Carbon Dioxide (21-32) mmol/L Anion Gap (3-11) BUN (7-18) mg/dl Creatinine (0.6-1.2) mg/dl Est Cr Clr Drug Dosing ml/min Est GFR ( Amer) ml/min Est GFR (Non-Af Amer) ml/min BUN/Creatinine Ratio (10-20) Glucose (70-99) mg/dl POC Glucose (70-99) mg/dl Lactate (0.4-2.0) mmol/L Calcium (8.5-10.1) mg/dl Magnesium (1.8-2.4) mg/dl Total Bilirubin (0.2-1) mg/dl Direct Bilirubin (0-0.2) mg/dl AST (15-37) U/L ALT (12-78) U/L Alkaline Phosphatase (45-117) U/L Ammonia 30.0 (11-32) umol/L Troponin I (0-0.045) ng/ml Total Protein (6.4-8.2) gm/dl Albumin (3.4-5.0) gm/dl Lipase (73-393) U/L Procalcitonin (0-0.5) ng/ml Urine Color Urine Appearance (Clear) Urine pH (4.5-7.5) Ur Specific [place] (1.000-1.030) Urine Protein (Negative) Urine Glucose (UA) (Negative) Urine Ketones (Negative) Urine Blood (Negative) Urine Nitrite (Negative) Urine Bilirubin (Negative) Urine Urobilinogen (Negative) Ur Leukocyte Esterase (Negative) Urine WBC (Auto) (0-5) /hpf Urine RBC (Auto) (0-4) /hpf U Hyaline Cast (Auto) (0-5) /lpf U Epithel Cells (Auto) (0-5) /lpf Urine Bacteria (Auto) (Negative) Ur Renal Epithelial Cell Calcium Oxalate Crystal (None Prsent) Granular Casts (0) /lpf WBC Casts (0) /lpf Urine Yeast (None Prsent) COVID-19 Eval Order SARS-CoV-2 (PCR) (Negative) Blood Type A Positive Antibody Screen NEGATIVE 11/09/20 11/09/20 11/09/20 Range/Units 00:06 00:06 00:08 WBC (4.8-10.8) K/uL RBC (4.2-5.4) M/uL Hgb (12.0-16.0) g/dL Hct (37-47) % MCV (80-100) fL MCH (25-34) pg MCHC (32-36) g/dL RDW Std Deviation (36.4-46.3) fL RDW Coeff of Mari (11.5-14.5) % Plt Count (130-400) K/uL MPV (7.4-10.4) fL Immature Gran % (Auto) % Neut % (Auto) % Lymph % (Auto) % [place] % (Auto) % Eos % (Auto) % Baso % (Auto) % Neut # (Auto) (1.4-6.5) K/uL Lymph # (Auto) (1.2-3.4) K/uL [place] # (Auto) (0.11-0.59) K/uL Eos # (Auto) (0-0.5) K/uL Baso # (Auto) (0-0.2) K/uL Immature Gran # (Auto) (0.00-0.02) K/uL PT 15.1 H (9.0-12.0) Seconds INR 1.5 H (0.9-1.1) Sodium 138 (136-145) mmol/L Potassium 3.2 L (3.5-5.1) mmol/L Chloride 110 H (98-107) mmol/L Carbon Dioxide 24 (21-32) mmol/L Anion Gap 4.0 (3-11) BUN 17 D (7-18) mg/dl Creatinine 1.86 H D (0.6-1.2) mg/dl Est Cr Clr Drug Dosing 46.6 ml/min Est GFR ( Amer) 34.4 ml/min Est GFR (Non-Af Amer) 29.7 ml/min BUN/Creatinine Ratio 9.3 L (10-20) Glucose 64 L (70-99) mg/dl POC Glucose (70-99) mg/dl Lactate (0.4-2.0) mmol/L Calcium 8.7 (8.5-10.1) mg/dl Magnesium 1.8 (1.8-2.4) mg/dl Total Bilirubin 2.5 H (0.2-1) mg/dl Direct Bilirubin 1.0 H (0-0.2) mg/dl AST 67 H (15-37) U/L ALT 53 (12-78) U/L Alkaline Phosphatase 168 H (45-117) U/L Ammonia (11-32) umol/L Troponin I < 0.015 (0-0.045) ng/ml Total Protein 6.5 (6.4-8.2) gm/dl Albumin 2.5 L (3.4-5.0) gm/dl Lipase 30 L (73-393) U/L Procalcitonin 0.20 (0-0.5) ng/ml Urine Color Urine Appearance (Clear) Urine pH (4.5-7.5) Ur Specific [place] (1.000-1.030) Urine Protein (Negative) Urine Glucose (UA) (Negative) Urine Ketones (Negative) Urine Blood (Negative) Urine Nitrite (Negative) Urine Bilirubin (Negative) Urine Urobilinogen (Negative) Ur Leukocyte Esterase (Negative) Urine WBC (Auto) (0-5) /hpf Urine RBC (Auto) (0-4) /hpf U Hyaline Cast (Auto) (0-5) /lpf U Epithel Cells (Auto) (0-5) /lpf Urine Bacteria (Auto) (Negative) Ur Renal Epithelial Cell Calcium Oxalate Crystal (None Prsent) Granular Casts (0) /lpf WBC Casts (0) /lpf Urine Yeast (None Prsent) COVID-19 Eval Order SARS-CoV-2 (PCR) (Negative) Blood Type Antibody Screen 11/09/20 11/09/20 11/09/20 Range/Units 01:41 01:41 01:57 WBC (4.8-10.8) K/uL RBC (4.2-5.4) M/uL Hgb (12.0-16.0) g/dL Hct (37-47) % MCV (80-100) fL MCH (25-34) pg MCHC (32-36) g/dL RDW Std Deviation (36.4-46.3) fL RDW Coeff of Mari (11.5-14.5) % Plt Count (130-400) K/uL MPV (7.4-10.4) fL Immature Gran % (Auto) % Neut % (Auto) % Lymph % (Auto) % [place] % (Auto) % Eos % (Auto) % Baso % (Auto) % Neut # (Auto) (1.4-6.5) K/uL Lymph # (Auto) (1.2-3.4) K/uL [place] # (Auto) (0.11-0.59) K/uL Eos # (Auto) (0-0.5) K/uL Baso # (Auto) (0-0.2) K/uL Immature Gran # (Auto) (0.00-0.02) K/uL PT (9.0-12.0) Seconds INR (0.9-1.1) Sodium (136-145) mmol/L Potassium (3.5-5.1) mmol/L Chloride (98-107) mmol/L Carbon Dioxide (21-32) mmol/L Anion Gap (3-11) BUN (7-18) mg/dl Creatinine (0.6-1.2) mg/dl Est Cr Clr Drug Dosing ml/min Est GFR ( Amer) ml/min Est GFR (Non-Af Amer) ml/min BUN/Creatinine Ratio (10-20) Glucose (70-99) mg/dl POC Glucose 62 L* (70-99) mg/dl Lactate (0.4-2.0) mmol/L Calcium (8.5-10.1) mg/dl Magnesium (1.8-2.4) mg/dl Total Bilirubin (0.2-1) mg/dl Direct Bilirubin (0-0.2) mg/dl AST (15-37) U/L ALT (12-78) U/L Alkaline Phosphatase (45-117) U/L Ammonia (11-32) umol/L Troponin I (0-0.045) ng/ml Total Protein (6.4-8.2) gm/dl Albumin (3.4-5.0) gm/dl Lipase (73-393) U/L Procalcitonin (0-0.5) ng/ml Urine Color Urine Appearance (Clear) Urine pH (4.5-7.5) Ur Specific [place] (1.000-1.030) Urine Protein (Negative) Urine Glucose (UA) (Negative) Urine Ketones (Negative) Urine Blood (Negative) Urine Nitrite (Negative) Urine Bilirubin (Negative) Urine Urobilinogen (Negative) Ur Leukocyte Esterase (Negative) Urine WBC (Auto) (0-5) /hpf Urine RBC (Auto) (0-4) /hpf U Hyaline Cast (Auto) (0-5) /lpf U Epithel Cells (Auto) (0-5) /lpf Urine Bacteria (Auto) (Negative) Ur Renal Epithelial Cell Calcium Oxalate Crystal (None Prsent) Granular Casts (0) /lpf WBC Casts (0) /lpf Urine Yeast (None Prsent) COVID-19 Eval Order Covid19 at [facility] SARS-CoV-2 (PCR) NEGATIVE (Negative) Blood Type Antibody Screen 11/09/20 11/09/20 11/09/20 Range/Units 01:58 02:47 02:47 WBC (4.8-10.8) K/uL RBC (4.2-5.4) M/uL Hgb 10.9 L (12.0-16.0) g/dL Hct 32.3 L (37-47) % MCV (80-100) fL MCH (25-34) pg MCHC (32-36) g/dL RDW Std Deviation (36.4-46.3) fL RDW Coeff of Mari (11.5-14.5) % Plt Count (130-400) K/uL MPV (7.4-10.4) fL Immature Gran % (Auto) % Neut % (Auto) % Lymph % (Auto) % [place] % (Auto) % Eos % (Auto) % Baso % (Auto) % Neut # (Auto) (1.4-6.5) K/uL Lymph # (Auto) (1.2-3.4) K/uL [place] # (Auto) (0.11-0.59) K/uL Eos # (Auto) (0-0.5) K/uL Baso # (Auto) (0-0.2) K/uL Immature Gran # (Auto) (0.00-0.02) K/uL PT (9.0-12.0) Seconds INR (0.9-1.1) Sodium (136-145) mmol/L Potassium (3.5-5.1) mmol/L Chloride (98-107) mmol/L Carbon Dioxide (21-32) mmol/L Anion Gap (3-11) BUN (7-18) mg/dl Creatinine (0.6-1.2) mg/dl Est Cr Clr Drug Dosing ml/min Est GFR ( Amer) ml/min Est GFR (Non-Af Amer) ml/min BUN/Creatinine Ratio (10-20) Glucose (70-99) mg/dl POC Glucose (70-99) mg/dl Lactate 1.2 (0.4-2.0) mmol/L Calcium (8.5-10.1) mg/dl Magnesium (1.8-2.4) mg/dl Total Bilirubin (0.2-1) mg/dl Direct Bilirubin (0-0.2) mg/dl AST (15-37) U/L ALT (12-78) U/L Alkaline Phosphatase (45-117) U/L Ammonia (11-32) umol/L Troponin I (0-0.045) ng/ml Total Protein (6.4-8.2) gm/dl Albumin (3.4-5.0) gm/dl Lipase (73-393) U/L Procalcitonin (0-0.5) ng/ml Urine Color [place] Urine Appearance Cloudy A (Clear) Urine pH 6.0 (4.5-7.5) Ur Specific [place] 1.029 (1.000-1.030) Urine Protein 1+ H (Negative) Urine Glucose (UA) Negative (Negative) Urine Ketones Trace H (Negative) Urine Blood 3+ H (Negative) Urine Nitrite Positive A (Negative) Urine Bilirubin 1+ H (Negative) Urine Urobilinogen Negative (Negative) Ur Leukocyte Esterase 1+ H (Negative) Urine WBC (Auto) >30 H (0-5) /hpf Urine RBC (Auto) >30 H (0-4) /hpf U Hyaline Cast (Auto) 10-30 H (0-5) /lpf U Epithel Cells (Auto) >30 H (0-5) /lpf Urine Bacteria (Auto) 2+ H (Negative) Ur Renal Epithelial Cell Not Reportable Calcium Oxalate Crystal Present A (None Prsent) Granular Casts 5-10 H (0) /lpf WBC Casts 5-10 H (0) /lpf Urine Yeast Budding A (None Prsent) COVID-19 Eval Order SARS-CoV-2 (PCR) (Negative) Blood Type Antibody Screen 11/09/20 11/09/20 Range/Units 02:47 04:20 WBC (4.8-10.8) K/uL RBC (4.2-5.4) M/uL Hgb (12.0-16.0) g/dL Hct (37-47) % MCV (80-100) fL MCH (25-34) pg MCHC (32-36) g/dL RDW Std Deviation (36.4-46.3) fL RDW Coeff of Mari (11.5-14.5) % Plt Count (130-400) K/uL MPV (7.4-10.4) fL Immature Gran % (Auto) % Neut % (Auto) % Lymph % (Auto) % [place] % (Auto) % Eos % (Auto) % Baso % (Auto) % Neut # (Auto) (1.4-6.5) K/uL Lymph # (Auto) (1.2-3.4) K/uL [place] # (Auto) (0.11-0.59) K/uL Eos # (Auto) (0-0.5) K/uL Baso # (Auto) (0-0.2) K/uL Immature Gran # (Auto) (0.00-0.02) K/uL PT (9.0-12.0) Seconds INR (0.9-1.1) Sodium 138 (136-145) mmol/L Potassium 3.2 L (3.5-5.1) mmol/L Chloride 110 H (98-107) mmol/L Carbon Dioxide 27 (21-32) mmol/L Anion Gap 1.0 L (3-11) BUN 18 (7-18) mg/dl Creatinine 1.71 H (0.6-1.2) mg/dl Est Cr Clr Drug Dosing 50.7 ml/min Est GFR ( Amer) 38.1 ml/min Est GFR (Non-Af Amer) 32.9 ml/min BUN/Creatinine Ratio 10.4 (10-20) Glucose 58 L (70-99) mg/dl POC Glucose 95 (70-99) mg/dl Lactate (0.4-2.0) mmol/L Calcium 8.4 L (8.5-10.1) mg/dl Magnesium (1.8-2.4) mg/dl Total Bilirubin (0.2-1) mg/dl Direct Bilirubin (0-0.2) mg/dl AST (15-37) U/L ALT (12-78) U/L Alkaline Phosphatase (45-117) U/L Ammonia (11-32) umol/L Troponin I (0-0.045) ng/ml Total Protein (6.4-8.2) gm/dl Albumin (3.4-5.0) gm/dl Lipase (73-393) U/L Procalcitonin (0-0.5) ng/ml Urine Color Urine Appearance (Clear) Urine pH (4.5-7.5) Ur Specific [place] (1.000-1.030) Urine Protein (Negative) Urine Glucose (UA) (Negative) Urine Ketones (Negative) Urine Blood (Negative) Urine Nitrite (Negative) Urine Bilirubin (Negative) Urine Urobilinogen (Negative) Ur Leukocyte Esterase (Negative) Urine WBC (Auto) (0-5) /hpf Urine RBC (Auto) (0-4) /hpf U Hyaline Cast (Auto) (0-5) /lpf U Epithel Cells (Auto) (0-5) /lpf Urine Bacteria (Auto) (Negative) Ur Renal Epithelial Cell Calcium Oxalate Crystal (None Prsent) Granular Casts (0) /lpf WBC Casts (0) /lpf Urine Yeast (None Prsent) COVID-19 Eval Order SARS-CoV-2 (PCR) (Negative) Blood Type Antibody Screen Administered Medications Discontinued Medications Dexamethasone (Dexamethasone Sod Inj 4 Mg/Ml Vial) 4 mg IV NOW ONE Stop: 11/09/20 02:46 Last Admin: 11/09/20 02:47 Dose: 4 mg Documented by: [id number] Dextrose (Dextrose 50% 50 Ml Syringe) 50 ml IV NOW ONE Stop: 11/09/20 02:32 Last Admin: 11/09/20 02:47 Dose: 50 ml Documented by: [id number] Sodium Chloride (Nss 1000ml) 500 mls @ 999 mls/hr IV .Q31M ONE Stop: 11/09/20 00:23 Last Infusion: 11/09/20 01:08 Dose: 0 mls/hr Documented by: [id number] Admin: 11/09/20 00:20 Dose: 999 mls/hr Documented by: [id number] Pantoprazole Sodium 80 mg/ (Dextrose) 100 mls @ 400 mls/hr IV ONE STA Stop: 11/09/20 00:07 Last Infusion: 11/09/20 00:40 Dose: 0 mls/hr Documented by: [id number] Admin: 11/09/20 00:20 Dose: 400 mls/hr Documented by: [id number] Sodium Chloride (Nss 1000ml) 1,000 mls @ 999 mls/hr IV .Q1H1M ONE Stop: 11/09/20 01:52 Last Infusion: 11/09/20 02:03 Dose: 0 mls/hr Documented by: [id number] Admin: 11/09/20 01:00 Dose: 999 mls/hr Documented by: [id number] Cefepime HCl (Maxipime) 2,000 mg in 20 mls @ 5 mls/min IV NOW STA; Protocol Stop: 11/09/20 03:22 Last Admin: 11/09/20 04:17 Dose: 5 mls/min Documented by: [id number] Potassium Chloride 40 meq/ (Sodium Chloride) 1,020 mls @ 50 mls/hr IV .[id number] ONE Stop: 11/10/20 00:30 Last Admin: 11/09/20 04:10 Dose: Not Given Documented by: [id number] Oxycodone HCl (Oxycodone Hcl Ir 5 Mg Tab (Immediate Release)) 5 mg PO NOW STA Stop: 11/09/20 04:04 Last Admin: 11/09/20 04:17 Dose: 5 mg Documented by: [id number] Discharge Plan Visit Data Chief Complaint: Altered Mental Status Stated Complaint: NO MOTOR SKILLS ED Provider: Nic Joseph Discharge Problem: Acute hypotension, Acute renal insufficiency, Acute dehydration, Heme positive stool Forms Stand Alone Forms: My [facility] Prescriptions Prescriptions: No Action pantoprazole 40 mg tablet,delayed release (DR/EC) 40 mg PO DAILYBB RF: 0 ferrous sulfate 325 mg (65 mg iron) tablet 325 mg PO QAM RF: 0 albuterol sulfate [Ventolin HFA] 90 mcg/actuation HFA aerosol inhaler 2 puff inhalation Q4H PRN (Reason: Shortness Of Breath) RF: 0 trazodone 50 mg tablet 50 mg PO HS RF: 0 albuterol sulfate 2.5 mg /3 mL (0.083 %) solution for nebulization 2.5 mg inhalation Q4 PRN (Reason: Shortness Of Breath) RF: 0 levothyroxine 175 mcg tablet 175 mcg PO DAILY RF: 0 prochlorperazine maleate [Compazine] 5 mg tablet 5 mg PO TID PRN (Reason: Nausea) RF: 0 insulin aspart U-100 [Novolog Flexpen U-100 Insulin] 100 unit/mL (3 mL) ins ulin pen 15 unit SUBCUT TIDM RF: 0 duloxetine [Cymbalta] 60 mg capsule,delayed release(DR/EC) 60 mg PO BID RF: 0 Xarelto 20 mg tablet 20 mg PO PM RF: 0 furosemide [Lasix] 20 mg Tablet 20 - 60 mg PO QAM PRN (Reason: Edema) RF: 0 carvedilol 12.5 mg Tablet 12.5 mg PO BID RF: 0 nortriptyline [Pamelor] 25 mg Capsule 25 mg PO HS RF: 0 Trulicity 1.5 mg/0.5 mL pen injector 1.5 mg SUBCUT WK RF: 0 Xifaxan 550 mg Tablet 550 mg PO BID Qty: 60 RF: 0 famotidine 20 mg tablet 20 mg PO BID RF: 0 magnesium chloride 64 mg tablet,delayed release (DR/EC) 64 mg PO PM RF: 0 Belbuca 150 mcg film 600 mcg BUCCAL BID RF: 0 prednisone 20 mg Tablet 40 mg PO DAILY Qty: 2 RF: 0 spironolactone [Aldactone] 25 mg tablet 50 mg PO BID RF: 0 ibuprofen [Advil] 200 mg Tablet 800 mg PO Q6H PRN (Reason: Pain) RF: 0 doxycycline hyclate 100 mg Capsule 100 mg PO BID@0700,1900 Qty: 8 RF: 0 oxycodone 15 mg tablet 15 mg PO QID PRN (Reason: Pain) Qty: 0 RF: 0 lactulose [Constulose] 10 gram/15 mL solution 30 ml PO QID Qty: 0 RF: 0 Basaglar KwikPen U-100 Insulin 100 unit/mL (3 mL) insulin pen 60 unit SUBCUT BID Qty: 0 RF: 0 Referrals Referrals: Dewey Mcfadden DO [Primary Care Provider] -
[2020-11-09 00:16] LABS: Basophils # (auto) 0.05 K/uL (0-0.2); Basophils % (auto) 0.4 %; Eosinophils # (auto) 0.26 K/uL (0-0.5); Eosinophils % (auto) 2.1 %; Hematocrit (blood only) 35.7 % (37-47); Hemoglobin 12.4 g/dL (12.0-16.0); Immature Granulocytes # (auto) 0.03 K/uL (0.00-0.02); Immature Granulocytes % (auto) 0.2 %; Lymphocytes # (auto) 3.81 K/uL (1.2-3.4); Lymphocytes % (auto) 31.5 %; Mean Corpuscular Hemoglobin 36.2 pg (25-34); Mean Corpuscular Hgb Conc 34.7 g/dL (32-36); Mean Corpuscular Volume 104.1 fL (80-100); Mean Platelet Volume 9.2 fL (7.4-10.4); Monocytes # (auto) 1.38 K/uL (0.11-0.59); Monocytes % (auto) 11.4 %; Neutrophils # (auto) 6.58 K/uL (1.4-6.5); Neutrophils % (auto) 54.4 %; Platelet Count 158 K/uL (130-400); RDW Coefficient of Variation 15.6 % (11.5-14.5); RDW Standard Deviation 56.6 fL (36.4-46.3); Red Blood Count 3.43 M/uL (4.2-5.4); White Blood Count 12.11 K/uL (4.8-10.8)
[2020-11-09 00:24] LABS: INR 1.5 (0.9-1.1); Prothrombin Time 15.1 Seconds (9.0-12.0)
[2020-11-09 00:46] LABS: Alanine Aminotransferase 53 U/L (12-78); Albumin Level 2.5 gm/dl (3.4-5.0); Alkaline Phosphatase 168 U/L (45-117); Aspartate Aminotransferase 67 U/L (15-37); BUN Creatinine Ratio 9.3 (10-20); Bilirubin,Total 2.5 mg/dl (0.2-1); Blood Urea Nitrogen 17 mg/dl (7-18); Calcium 8.7 mg/dl (8.5-10.1); Carbon Dioxide 24 mmol/L (21-32); Chloride 110 mmol/L (98-107); Creatinine Clr Calc Pharmacy 46.6 ml/min; Est GFR (African American) 34.4 ml/min; Est GFR (Non-African American) 29.7 ml/min; Glucose 64 mg/dl (70-99); Lipase 30 U/L (73-393); Magnesium 1.8 mg/dl (1.8-2.4); Potassium 3.2 mmol/L (3.5-5.1); Sodium 138 mmol/L (136-145); Total Protein 6.5 gm/dl (6.4-8.2); Troponin I < 0.015 ng/ml (0-0.045)
[2020-11-09] MEDS ORDERED: SODIUM CHLORIDE 0.9% 1000ML 1,000 ML IV ONE (00:52)
[2020-11-09 02:29] LABS: Appearance Urine Cloudy (Clear); Blood Urine 3+ (Negative); Color Urine Orange; Epithelial Cell Urine Auto >30 /lpf (0-5); Glucose Urine UA Negative (Negative); Ketones Urine Trace (Negative); Leukocyte Esterase Urine 1+ (Negative); Nitrite Urine Positive (Negative); Protein Urine 1+ (Negative); Specific Gravity Urine 1.029 (1.000-1.030); Urobilinogen Urine Negative (Negative); WBC Urine Automated >30 /hpf (0-5)
[2020-11-09] MEDS ORDERED: DEXTROSE 50% 50 ML SYRINGE IV ONE (02:31)
[2020-11-09] MEDS ORDERED: dexAMETHasone 4 MG in SYRINGE 0 ML IV ONE (02:32)
--- NOTE | 2020-11-09 02:36 | History & Physical Report ---
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 intake hypothyroidism, euthyroid as of recent inpatient TSH Possible functional disability, recurrent admissions ongoing tobacco abuse Medical telemetry CS, Cefepime Appropriate to hold home BP meds for now until BP stable Decadron 1 dose for possible adrenal insufficiency Monitor creatinine response to IVF, hold home diuretics until creatinine back to baseline Appropriate to hold home Eliquis/NSAID given UGI bleed; IV PPI, GI consult UGI B Serial H&H, transfuse PRBC if hemoglobin less than 8 and or for symptomatic anemia Appropriate to hold home basal insulin given hypoglycemia; ISS BG goal 1 10-1 40 Hold home prednisone until reason for prescription following last confinement clarified with morning provider. Replace potassium Hold narcotics/neuropsychotropic meds for sedation/confusion PT OT eval Nicotine patch as needed DVT prophylaxis. SCDs Re: GI bleed Full code Total critical care time was 40 minutes. Patient's partner requesting updates from providers. Mr. Greg Hastings, contact #[phone]. Text document was generated using [employer] voice recognition software. It may contain grammatical or spelling errors. Kindly contact undersigned for clarification of any documentation item in question. History of Present Illness Chief Complaint: Worsening weakness, confusion, black stools as per records Primary Care Provider: Dewey Mcfadden DO History obtained from patient, family, and records. Limited history from patient secondary to obtunded state. 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 Recent admission November 03-2020 for hepatic encephalopathy. Patient discharged on doxycycline course for periumbilical infection.Prednisone presc ription noted on discharge medication list for unclear reasons. At home, patient noted to be weak and intermittently confused as per partner. Compliant with home medications. Black stools noted at home as per report. Patient complaining of worsening back pain. No abdominal pain, emesis complaints as per partner. Patient brought to the ER for evaluation. SBP noted to be 80s at some point during ER stay. IVF bolus administered. IV PPI administered at the ER for GI bleed. MHX : 2019 EGD showed mild antral gastritis 2012 colonoscopy showed polyps, external/internal hemorrhoids SURGERIES: She has had appendectomy, hysterectomy, cholecystectomy, hernia repair, knee surgery, FAMILY HISTORY: Diabetes, heart disease, hypertension. PERSONAL AND SOCIAL HISTORY: Half pack daily, no chronic intake of alcoholic beverages, on disability, lives with partner. Allergies Allergy/AdvReac Type Severity Reaction Status Date / Time Iodinated Contrast Media Allergy Intermediate hives-PT Verified 11/09/20 00:24 DENIES SEE NOTE adhesive Allergy Mild RED RASH Verified 11/09/20 00:24 CAUSED BY PAPER TAPE vancomycin AdvReac Severe renal Verified 11/09/20 00:24 failure, required dialysis x 3 MONTHS acetaminophen AdvReac Intermediate Liver Verified 11/09/20 00:24 problems. alprazolam AdvReac Intermediate MAKES Verified 11/09/20 00:24 LOOPY,DO AND SAY SILLY THINGS codeine AdvReac Intermediate UPSET Verified 11/09/20 00:24 STOMACH haloperidol AdvReac Intermediate nervous Verified 11/09/20 00:24 and anxious metformin AdvReac Intermediate HANDS FEET Verified 11/09/20 00:24 FACE NUMB methylparaben AdvReac Intermediate FLUID Verified 11/09/20 00:24 RETENTION morphine AdvReac Intermediate SWELLING Verified 11/09/20 00:24 LEGS AND FEET oxymorphone AdvReac Intermediate FLUID Verified 08/22/20 19:01 RETENTION pregabalin AdvReac Intermediate Aphasia/Speech Verified 08/22/20 19:01 impairments gabapentin AdvReac Mild Aphasia/Speech Verified 08/22/20 19:01 impairments Sulfa (Sulfonamide AdvReac Mild GI SYMPTOMS Verified 08/22/20 19:01 Antibiotics) Home Medications Medication Instructions Recorded Confirmed Type duloxetine 60 mg capsule,delayed 60 mg PO BID 03/12/19 11/09/20 History release (Cymbalta) furosemide 20 mg tablet (Lasix) 20 - 60 mg PO QAM PRN 03/12/19 11/09/20 History insulin aspart U-100 100 unit/mL 15 unit SUBCUT TIDM 03/12/19 11/09/20 History (3 mL) subcutaneous pen (Novolog Flexpen U-100 Insulin aspart) prochlorperazine maleate 5 mg 5 mg PO TID PRN 03/12/19 11/09/20 History tablet (Compazine) rivaroxaban 20 mg tablet (Xarelto) 20 mg PO PM 03/12/19 11/09/20 History carvedilol 12.5 mg tablet 12.5 mg PO BID 03/21/19 11/09/20 History nortriptyline 25 mg capsule 25 mg PO HS 03/21/19 11/09/20 History (Pamelor) dulaglutide 1.5 mg/0.5 mL 1.5 mg SUBCUT WK 07/13/19 11/09/20 History subcutaneous pen injector (Trulicity) albuterol sulfate 90 mcg/actuation 2 puff INHALATION Q4H PRN 08/01/19 11/09/20 History aerosol inhaler (Ventolin HFA) ferrous sulfate 325 mg (65 mg 325 mg PO QAM 08/01/19 11/09/20 History iron) tablet pantoprazole 40 mg tablet,delayed 40 mg PO DAILYBB 08/01/19 11/09/20 History release rifaximin 550 mg tablet (Xifaxan) 550 mg PO BID #60 tab 08/15/19 11/09/20 Rx trazodone 50 mg tablet 50 mg PO HS 08/29/19 11/09/20 History famotidine 20 mg tablet 20 mg PO BID 09/17/19 11/09/20 History albuterol sulfate 2.5 mg INHALATION Q4 PRN 10/04/19 11/09/20 History magnesium chloride 64 mg 64 mg PO PM 10/05/19 11/09/20 History (magnesium chloride) tablet,delayed release levothyroxine 175 mcg tablet 175 mcg PO DAILY 11/20/19 11/09/20 History buprenorphine HCl 150 mcg buccal 600 mcg BUCCAL BID 07/20/20 11/09/20 History film (Belbuca) prednisone 20 mg tablet 40 mg PO DAILY #2 tab 07/26/20 11/09/20 Rx ibuprofen 200 mg tablet (Advil) 800 mg PO Q6H PRN 08/22/20 11/09/20 History spironolactone 25 mg tablet 50 mg PO BID 08/22/20 11/09/20 History (Aldactone) doxycycline hyclate 100 mg capsule 100 mg PO BID@0700,1900 #8 cap 11/07/20 11/09/20 Rx insulin glargine 100 unit/mL (3 60 unit SUBCUT BID #0 ml 11/07/20 11/09/20 Rx mL) subcutaneous pen (Basaglar KwikPen U-100 Insulin) lactulose 10 gram/15 mL oral 30 ml PO QID #0 ml 11/07/20 11/09/20 Rx solution (Constulose) oxycodone 15 mg tablet 15 mg PO QID PRN #0 tab 11/07/20 11/09/20 Rx Past Med/Surg History Medical History Abdominal wall cellulitis Acute hepatic encephalopathy Bowel obstruction Cauda equina compression Cellulitis and abscess of trunk (Unknown) Chronic low back pain COPD, group D, by GOLD 2017 classification Deep vein blood clot of left lower extremity RIGHT AND LEFT LEG AND THEN MOVED LUNG - 2002 Diabetes Diabetic neuropathy (01/04/11) Fracture of fourth metatarsal bone of left foot Gastritis Hyperammonemia Hypokalemia Hypomagnesemia Incarcerated ventral hernia Kidney stone HX OF AND HAD LITHOTRIPSY RIMA (obstructive sleep apnea) HX OF AND NO CURRENT PROBLEM Paroxysmal A-fib 2013 on Xarelto Pyelonephritis Rectal bleeding Septic shock Severe sepsis Splenomegaly, not elsewhere classified Supratherapeutic INR UTI (urinary tract infection) Surgical History History of appendectomy History of arthroplasty of right knee Hx of lithotripsy Hx of ventral hernia repair S/P cholecystectomy S/P sinus surgery S/P MARLEE (total abdominal hysterectomy) Family History Father Cancer Liver Brother Kidney disease Renal failure Cirrhosis Brother Cirrhosis Other Family history non-contributory Social History Smoking Status: Current every day smoker Tobacco Type: Cigarettes Cigarettes Per Day: 1/2 PPD; Second Hand Exposure: Yes; Hx Alcohol Use: No Hx Substance Use: No Preferred Language: Ethiopian Communication Ability: Effective Funeral Home [employer] Required: No Beliefs That Will Affect Care: None marital status: Current Living Situation: Significant Other Current Living Situation Comment: per ER documentation, pt resides with significant other current occupational status: disabled Feels Safe at Home: Yes Assistive Devices: Oxygen - Continuous Review of Systems Review of Systems: Could not be reliably obtained Physical Exam Physical Exam: GENERAL: Obtunded, morbidly obese, no respiratory distress SKIN: normal color, warm HEENT: [place] palpebral conjunctivae, no ptosis, dry buccal mucosa NECK : Supple, short neck, no tenderness CHEST : Decreased breath sounds, no tenderness HEART : Bradycardic, no obvious murmurs ABDOMEN: distention, nontender EXTREMITIES : Bilateral LE swelling, no LE tenderness, no other conspicuous deformities noted NEUROLOGIC : Obtunded, no facial asymmetry, no other gross focality Results & Data Results & Data ([facility]) Vital Signs (Past 12 Hours) Vital Signs Temp Pulse Resp BP Pulse Ox 11/09/20 01:30 49 L 18 96/58 L 100 11/09/20 01:00 50 L 12 102/63 99 11/09/20 00:30 52 L 16 84/62 L 96 11/09/20 00:10 54 L 12 84/55 L 100 11/08/20 23:32 35.4 C L 59 L 22 90/60 L 98 Laboratory Results Laboratory Results WBC 12.11 K/uL (4.8-10.8) H 11/09/20 00:06 RBC 3.43 M/uL (4.2-5.4) L 11/09/20 00:06 Hgb 12.4 g/dL (12.0-16.0) 11/09/20 00:06 Hct 35.7 % (37-47) L 11/09/20 00:06 MCV 104.1 fL (80-100) H 11/09/20 00:06 MCH 36.2 pg (25-34) H 11/09/20 00:06 MCHC 34.7 g/dL (32-36) 11/09/20 00:06 RDW Std Deviation 56.6 fL (36.4-46.3) H 11/09/20 00:06 RDW Coeff of Mari 15.6 % (11.5-14.5) H 11/09/20 00:06 Plt Count 158 K/uL (130-400) 11/09/20 00:06 MPV 9.2 fL (7.4-10.4) 11/09/20 00:06 Immature Gran % (Auto) 0.2 % 11/09/20 00:06 Neut % (Auto) 54.4 % 11/09/20 00:06 Lymph % (Auto) 31.5 % 11/09/20 00:06 [place] % (Auto) 11.4 % 11/09/20 00:06 Eos % (Auto) 2.1 % 11/09/20 00:06 Baso % (Auto) 0.4 % 11/09/20 00:06 Neut # (Auto) 6.58 K/uL (1.4-6.5) H 11/09/20 00:06 Lymph # (Auto) 3.81 K/uL (1.2-3.4) H 11/09/20 00:06 [place] # (Auto) 1.38 K/uL (0.11-0.59) H 11/09/20 00:06 Eos # (Auto) 0.26 K/uL (0-0.5) 11/09/20 00:06 Baso # (Auto) 0.05 K/uL (0-0.2) 11/09/20 00:06 Immature Gran # (Auto) 0.03 K/uL (0.00-0.02) H 11/09/20 00:06 PT 15.1 Seconds (9.0-12.0) H 11/09/20 00:06 INR 1.5 (0.9-1.1) H 11/09/20 00:06 Sodium 138 mmol/L (136-145) 11/09/20 00:06 Potassium 3.2 mmol/L (3.5-5.1) L 11/09/20 00:06 Chloride 110 mmol/L (98-107) H 11/09/20 00:06 Carbon Dioxide 24 mmol/L (21-32) 11/09/20 00:06 Anion Gap 4.0 (3-11) 11/09/20 00:06 BUN 17 mg/dl (7-18) D 11/09/20 00:06 Creatinine 1.86 mg/dl (0.6-1.2) H D 11/09/20 00:06 Est Cr Clr Drug Dosing 46.6 ml/min 11/09/20 00:06 Est GFR ( Amer) 34.4 ml/min 11/09/20 00:06 Est GFR (Non-Af Amer) 29.7 ml/min 11/09/20 00:06 BUN/Creatinine Ratio 9.3 (10-20) L 11/09/20 00:06 Glucose 64 mg/dl (70-99) L 11/09/20 00:06 POC Glucose 62 mg/dl (70-99) L* 11/09/20 01:57 Calcium 8.7 mg/dl (8.5-10.1) 11/09/20 00:06 Magnesium 1.8 mg/dl (1.8-2.4) 11/09/20 00:06 Total Bilirubin 2.5 mg/dl (0.2-1) H 11/09/20 00:06 Direct Bilirubin 1.0 mg/dl (0-0.2) H 11/09/20 00:06 AST 67 U/L (15-37) H 11/09/20 00:06 ALT 53 U/L (12-78) 11/09/20 00:06 Alkaline Phosphatase 168 U/L (45-117) H 11/09/20 00:06 Ammonia 30.0 umol/L (11-32) 11/09/20 00:06 Troponin I < 0.015 ng/ml (0-0.045) 11/09/20 00:06 Total Protein 6.5 gm/dl (6.4-8.2) 11/09/20 00:06 Albumin 2.5 gm/dl (3.4-5.0) L 11/09/20 00:06 Lipase 30 U/L (73-393) L 11/09/20 00:06 COVID-19 Eval Order Covid19 at [facility] 11/09/20 01:41 Blood Type A Positive 11/09/20 00:06 Antibody Screen NEGATIVE 11/09/20 00:[address] head initial read: [facility] No ICH, mass effect or edema. No evidence of acute cortical stroke. Visualized sinuses and mastoid air cells are clear. Chest x-ray as per my interpretation atelectasis, interstitial congestion CT abdomen pelvis initial read: No prior studyfor comparison. The liver appears normal. Spleen is enlarged measuring 15.6 cmin AP dimension and 14 cmin length. Pancreas appears normal. Gallbladder is surgicallyabsent. Stomach, small bowel, colon appear normal. The appendix is not visualized. There are nonobstructing right calyceal renal stones. There is no hydronephrosis or renal mass. Ureters and bladder appear normal. Uterus is not visualized. There are moderate atherosclerotic changes in the abdominal aorta. There is no free peritoneal air or fluid. Impression: Nephrolithiasis. Mild splenomegaly EKG as per my interpretation : Rate 60, NSR, 1 AVB, normal axis, T wave abnormalities inferior and septal leads, low voltage
[2020-11-09 02:41] LABS: Bilirubin Urine 1+ (Negative)
[2020-11-09] MEDS ORDERED: DEXAMETHASONE SOD INJ 4 MG/ML VIAL IV ONE (02:45)
[2020-11-09 02:58] LABS: Hematocrit (blood only) 32.3 % (37-47); Hemoglobin 10.9 g/dL (12.0-16.0)
[2020-11-09 03:04] LABS: RBC Urine Automated >30 /hpf (0-4)
[2020-11-09 03:05] LABS: Calcium Oxalate Crystals Urine Present (None Prsent)
[2020-11-09 03:15] LABS: Bacteria Urine Automated 2+ (Negative)
[2020-11-09 03:18] LABS: BUN Creatinine Ratio 10.4 (10-20); Calcium 8.4 mg/dl (8.5-10.1); Creatinine Clr Calc Pharmacy 50.7 ml/min; Est GFR (African American) 38.1 ml/min; Est GFR (Non-African American) 32.9 ml/min; Potassium 3.2 mmol/L (3.5-5.1)
[2020-11-09] MEDS ORDERED: CEFEPIME 2,000 MG/20 ML VIAL IV STA (03:19)
[2020-11-09] MEDS ORDERED: oxyCODONE HCL IR 5 MG TAB (IMMEDIATE RELEASE) PO STA (04:03)
[2020-11-09] MEDS ORDERED: POTASSIUM CHLORIDE 40 MEQ in SODIUM CHLORIDE 0.9% 1000ML 1,000 ML IV ONE (04:07)
[2020-11-09] MEDS ORDERED: POTASSIUM CHLORIDE CRTAB 20 MEQ TABCR PO STA (05:00)
[2020-11-09] MEDS ORDERED: GLUCOSE 40% GEL 15 GM TUBE PO PRN ×2 (05:39→13:00)
[2020-11-09] MEDS ORDERED: ACETAMINOPHEN 325 MG TAB PO PRN (05:39)
[2020-11-09] MEDS ORDERED: GLUCAGON FOR INJ 1 MG VIAL SQ PRN (05:39)
[2020-11-09] MEDS ORDERED: oxyCODONE HCL IR 5 MG TAB (IMMEDIATE RELEASE) PO PRN (05:39)
[2020-11-09] MEDS ORDERED: CARBOHYDRATES FOR HYPOGLYCEMIA PO PRN ×2 (05:39→13:00)
[2020-11-09] MEDS ORDERED: CEFEPIME CONSULT ACTIVE PRN (05:39)
[2020-11-09] MEDS ORDERED: PROMETHAZINE HCL 12.5 MG in SODIUM CHLORIDE 0.9% 50 ML IV PRN (05:39)
[2020-11-09] MEDS ORDERED: ALBUMIN 25% 12.5 GM/50 ML VIAL IV SCH (05:39)
[2020-11-09] MEDS ORDERED: GLUCOSE 10 TABS/TUBE PO PRN ×2 (05:39→13:00)
[2020-11-09] MEDS: PANTOprazole 40 MG in DEXTROSE 5% 100 ML IV SCH ×4 (06:43→23:01)
[2020-11-09] MEDS: POTASSIUM CHLORIDE 40 MEQ in SODIUM CHLORIDE 0.9% 1000ML 1,000 ML IV SCH (06:43)
[2020-11-09] MEDS: LEVOTHYROXINE SODIUM 175 MCG TABLET PO SCH (06:44)
[2020-11-09] MEDS ORDERED: ALBUT/IPRATROP 3MG/0.5MG NEB 3 ML VIAL NEB PRN (06:53)
--- NOTE | 2020-11-09 08:10 | CT Scan Report ---
CT OF THE HEAD WITHOUT CONTRAST CLINICAL HISTORY: Altered mental status, blood thinner rx COMPARISON STUDY: MRI of the brain December 14, 2019. Head CT August 22, 2020. TECHNIQUE: Helical axial images of the head were obtained without IV contrast. Automated exposure con trol was utilized for the study. A dose lowering technique was utilized adhering to the principles o f ALARA. FINDINGS: This exam is mildly compromised by artifact. No acute intracranial hemorrhage, midline shif t or mass effect is present. The ventricular system is unremarkable. The basal cisterns are patent. N o extra-axial collections are present. There are no findings to suggest acute dural sinus thrombosis or acute territorial infarct. No significant calvarial abnormalities are present. Postoperative findi ngs within the sinuses are noted. IMPRESSION: No acute intracranial findings. ACT 112: Negative or not required by law. Electronically signed by: Vini Alvarado M.D. 11/09/2020 8:08 AM
--- NOTE | 2020-11-09 08:15 | CT Scan Report ---
CT OF THE ABDOMEN AND PELVIS WITHOUT CONTRAST CLINICAL HISTORY: Renal failure. COMPARISON STUDY: CT of the abdomen and pelvis November 03, 2020. TECHNIQUE: Axial images of the abdomen and pelvis were obtained without IV contrast. Images were revi ewed in the axial, sagittal, and coronal planes. Automated exposure control was utilized for the dickson dy. A dose lowering technique was utilized adhering to the principles of ALARA. FINDINGS: Imaged portions the lower chest demonstrate interval development of multifocal groundglass opacities within the lower lungs. There is interlobular septal thickening. Evaluation of the abdomen and pelvis is compromised on this unenhanced exam. In addition, there is ar tifact from body wall contacting the gantry. No pneumatosis, free air or portal venous gas is present . The gallbladder surgically absent. There is no significant biliary ductal dilatation. The liver is cirrhotic. Sensitivity for detection of hepatic lesions is diminished on this unenhanced exam but non e are identified. Splenomegaly is unchanged. Prominent abdominal lymph nodes remain unchanged. There are varices. A few small right renal calculi measure up to 3 mm. There are no ureteral calculi. There is no hydronephrosis. Renal size is normal. There is no evidence for a bowel obstruction. Edema of t he anterior abdominal wall is again noted. The appendix is not visualized. L1 burst fracture is simil ar to CT of November 03, 2020. There is retropulsion at this level. Degenerative changes within lumbar sp ine are incidentally noted. Colon is mildly fluid-filled. IMPRESSION: 1. Several small right renal calculi. No ureteral calculi or hydronephrosis. 2. Interlobular septal thickening within the lower lungs suggestive of interstitial pulmonary edema. Groundglass opacities may reflect an infectious process or pulmonary alveolar edema. 3. Cirrhosis. Splenomegaly and varices formation indicative of portal hypertension. 4. No bowel obstruction. ACT 112: Negative or not required by law. Electronically signed by: Vini Alvarado M.D. 11/09/2020 8:14 AM
[2020-11-09 08:28] LABS: Basophils # (auto) 0.02 K/uL (0-0.2); Basophils % (auto) 0.3 %; Eosinophils # (auto) 0.04 K/uL (0-0.5); Eosinophils % (auto) 0.6 %; Hematocrit (blood only) 34.3 % (37-47); Hemoglobin 11.8 g/dL (12.0-16.0); Immature Granulocytes # (auto) 0.02 K/uL (0.00-0.02); Immature Granulocytes % (auto) 0.3 %; Lymphocytes # (auto) 1.61 K/uL (1.2-3.4); Lymphocytes % (auto) 22.9 %; Mean Corpuscular Hemoglobin 35.2 pg (25-34); Mean Corpuscular Hgb Conc 34.4 g/dL (32-36); Mean Corpuscular Volume 102.4 fL (80-100); Mean Platelet Volume 9.2 fL (7.4-10.4); Monocytes # (auto) 0.25 K/uL (0.11-0.59); Monocytes % (auto) 3.6 %; Neutrophils # (auto) 5.09 K/uL (1.4-6.5); Neutrophils % (auto) 72.3 %; Platelet Count 116 K/uL (130-400); RDW Coefficient of Variation 15.7 % (11.5-14.5); RDW Standard Deviation 55.3 fL (36.4-46.3); Red Blood Count 3.35 M/uL (4.2-5.4); White Blood Count 7.03 K/uL (4.8-10.8)
--- NOTE | 2020-11-09 08:36 | XRay Report ---
XR chest 1V portable HISTORY: generalized weakness COMPARISON: Chest 11/03/2020. FINDINGS: Cardiac silhouette is enlarged. There are low lung volumes with perihilar interstitial/vasc ular thickening. This likely represents developing pulmonary edema. No pneumothorax. No pleural effus ions. No new focal lung consolidations to suggest pneumonia. IMPRESSION: Cardiomegaly with developing interstitial pulmonary edema. ACT 112: Negative or not required by law. Electronically signed by: Kalpesh Carcamo M.D. 11/09/2020 8:35 AM
[2020-11-09] MEDS ORDERED: predniSONE 20 MG TAB PO SCH (09:00)
[2020-11-09 09:03] LABS: Albumin Level 2.4 gm/dl (3.4-5.0); BUN Creatinine Ratio 11.5 (10-20); Calcium 8.4 mg/dl (8.5-10.1); Creatinine Clr Calc Pharmacy 54.8 ml/min; Est GFR (Non-African American) 37.9 ml/min; Potassium 3.4 mmol/L (3.5-5.1)
[2020-11-09 09:06] LABS: Albumin Globulin Ratio 0.6 (0.9-2); Bilirubin,Total 2.1 mg/dl (0.2-1); Globulin 4.2 gm/dl (2.5-4.0); Total Protein 6.6 gm/dl (6.4-8.2)
[2020-11-09] MEDS: rifAXIMin 550 MG TABLET PO SCH ×2 (10:06→20:29)
[2020-11-09] MEDS: DULoxetine HCL 60 MG CAP PO SCH ×2 (10:06→20:28)
[2020-11-09] MEDS: LACTULOSE SYRUP 20 GM/30 ML UDC PO SCH ×3 (11:55→20:29)
[2020-11-09] MEDS ORDERED: HYDROmorphone INJ 0.5 MG/0.5 ML SYR IV ONE (12:13)
[2020-11-09] MEDS ORDERED: PHARMACY GLYCEMIC MGMT CONSULT PRN (12:14)
--- NOTE | 2020-11-09 12:54 | Hospitalist Progress Note ---
Date of Service November 09, 2020 Assessment & Plan (1) Encephalopathy: Plan: Acute Metabolic Encephalopathy Likely multifactorial:Possible UTI, Medications, Hypoglycemia, Hepatic Encephalopathy CT head: No acute intracranial findings. Normal Ammonia levels Mental status back to baseline Continue lactulose, rifaximin Monitor for hypoglycemia Melena In setting of Xarelto, NSAIDs use, on Iron supplements -CT ABD:Several small right renal calculi. No ureteral calculi or hydronephrosis. Interlobular septal thickening within the lower lungs suggestive of interstitial pulmonary edema. Groundglass opacities may reflect an infectious process or pulmonary alveolar edema. Cirrhosis. Splenomegaly and varices formation indicative of portal hypertension. No bowel obstruction. -Admits to using NSAIDs -Advised to quit using NSAIDSs Xarelto on hold Monitor H&H and transfuse as needed Hb stable GI consulted Continue PPI Suspected UTI/Sepsis Blood/Urine Culture pending Continue Cefepime for now DM II HbA1C:5.6 Continue Insulin therapy Adjust medications as needed Monitor for Hypoglycemia Needs medication adjustment upon discharge Acute Kidney Injury Likely due to NSAIDs, Diuretics, Lactulose use Cr:1.8>1.2 Monitor renal function Continue IV fluids Avoid Nephrotoxic agents as able Hypokalemia Replace electrolytes as able Monitor Hypothyroidism Continue levothyroxine RIMA on Oxygen at bedtime Non compliance with CPAP Morbid obesity BMI:61 Lumbago Chronic pain Previously on Prednisone--currently off it as per patient Minimize Narcotic use as able MEEK Cirrhosis H/O Medication Non complaince MELD : 12 Continue lactulose, Rifaximin Chronic diastolic heart failure EF 65 to 70%, TTE 2020 Monitor Volume status Resume home diuretics as able Recurrent PE/DVT on Xarelto Hold Xarelto due to melena Bipolar disorder Resume home homes as able Ongoing tobacco abuse 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 DVT Px: SCDs Re:GI bleed Code Status Full code Admission and Anticipated Discharge Date Admission Date: November 09, 2020 Subjective Patient is seen and examined at bedside Denies being confused, currently oriented States having back pain States having brown colored stool Denies chest pain, dyspnea, dizziness, dysuria, hematuria Offers no other complaints Review of Systems Review of Systems: All systems reviewed & are unremarkable except as noted in Subjective Physical Exam Physical Exam: Physical Exam: Vitals signs as noted above General Appearance:Morbidly obese, no apparent distress Head: normocephalic, Atraumatic Eyes: normal inspection, EOMI Neck: supple, Trachea midline Respiratory/Chest: Normal breath sounds, CTA, No accessory muscle use Cardiovascular: S1, S2, No murmur Abdomen/GI:Soft, Non tender, Bowel sounds present Extremities/Musculoskeletal:normal inspection, B/L LE edema Neurologic/Psych:AAOX3, grossly no focal neurological deficits Skin: normal color, warm Results & Data Results & Data ([facility]) Vital Signs (Past 12 Hours) Vital Signs Temp Pulse Pulse Resp BP BP Pulse Ox 11/09/20 08:02 36.6 C 55 L 20 117/76 100 11/09/20 08:00 50 L 11/09/20 06:33 50 L 11/09/20 05:41 36.6 C 52 L 16 113/54 L 97 11/09/20 04:31 50 L 22 120/84 99 11/09/20 02:30 49 L 18 124/70 99 11/09/20 01:30 49 L 18 96/58 L 100 11/09/20 01:00 50 L 12 102/63 99 Laboratory Results Short CBC 11/09/20 11/09/20 11/09/20 Range/Units 00:06 02:47 07:55 WBC 12.11 H 7.03 (4.8-10.8) K/uL Hgb 12.4 10.9 L 11.8 L (12.0-16.0) g/dL Hct 35.7 L 32.3 L 34.3 L (37-47) % Plt Count 158 116 L (130-400) K/uL BMP 11/09/20 11/09/20 11/09/20 00:06 02:47 07:55 Sodium 138 138 139 Potassium 3.2 L 3.2 L 3.4 L Chloride 110 H 110 H 110 H Carbon Dioxide 24 27 25 BUN 17 D 18 18 Creatinine 1.86 H D 1.71 H 1.52 H Glucose 64 L 58 L 88 Calcium 8.7 8.4 L 8.4 L Cardiac Enzymes 11/09/20 Range/Units 00:06 Troponin I < 0.015 (0-0.045) ng/ml Liver Function 11/09/20 11/09/20 Range/Units 00:06 07:55 Total Bilirubin 2.5 H 2.1 H (0.2-1) mg/dl Direct Bilirubin 1.0 H (0-0.2) mg/dl AST 67 H 61 H (15-37) U/L ALT 53 51 (12-78) U/L Alkaline Phosphatase 168 H 170 H (45-117) U/L Albumin 2.5 L 2.4 L (3.4-5.0) gm/dl Urine 11/09/20 Range/Units 01:58 Urine Color [place] Urine Appearance Cloudy A (Clear) Urine pH 6.0 (4.5-7.5) Ur Specific [place] 1.029 (1.000-1.030) Urine Protein 1+ H (Negative) Urine Glucose (UA) Negative (Negative)
[2020-11-09] MEDS ORDERED: DEXTROSE 50% 50 ML SYRINGE IV PRN (13:00)
[2020-11-09] MEDS ORDERED: GLUCAGON FOR INJ 1 MG VIAL IM PRN (13:00)
--- NOTE | 2020-11-09 13:27 | Electrocardiogram Report ---
Test Reason : Blood Pressure : / mmHG Vent. Rate : 061 BPM Atrial Rate : 061 BPM P-R Int : 240 ms QRS Dur : 088 ms QT Int : 476 ms P-R-T Axes : 046 040 026 degrees QTc Int : 479 ms Sinus rhythm with 1st degree A-V block with Premature atrial complexes Low voltage QRS Poor R wave progression, consider anterior MN vs. lead placement vs. LVH Abnormal ECG When compared with ECG of 03-NOV-2020 05:10, Vent. rate has decreased BY 39 BPM Nonspecific T wave abnormality now evident in Anterior leads Confirmed by Casey Cardoza ([id number]) on 11/09/2020 1:27:38 PM Referred By: REFERRED SELF Confirmed By:Casey Cardoza
[2020-11-09 14:15] LABS: Hematocrit (blood only) 37.4 % (37-47); Hemoglobin 12.8 g/dL (12.0-16.0)
--- NOTE | 2020-11-09 14:42 | Gastrointestinal Consultation ---
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 H/H greater than discharge H/H from prior admission Would recommend Decreasing Protonix to 40 mg PO BID Advance diet to Regular NPO after midnight Will defer to [facility] regarding need for repeat EGD at this time Continue Lactulose 30g by mouth QID to titrate to at least 3 stools daily Continue Xifaxan 550 mg by mouth twice daily. History of Present Illness Reason for Consultation: UGI bleed Attending Physician: Geoffrey Card MD History of Present Illness Desi Galindo is a 54 yo CF well known to [facility] secondary to MEEK Cirrhosis, Hepatic encephalopathy, and medical non-compliance. She was discharged on 11/07 following an admission for hepatic encephalopathy. During her prior admission, she had an extensive workup for an infectious etiology of her symptoms, though none was found. She returned to the ER, less than 1 day after discharge with generalized weakness and reported black stools with incontinence. Her H/H was slightly decreased from her discharge H/H, though she was not having any witnessed episodes of overt GI bleeding. She was admitted and started on a Protonix gtt at 8 mg/hour. Her Last EGD was performed on 07/04/[address] Morgan, and it was normal, without evidence of ulcerations or esophageal varices. At the time I saw her, she was sitting up in a chair, and had just been given Dilaudid, but states her back pain is worse and she needs more Dilaudid. She also inquired about eating. She denies abdominal pain, fevers, chills, nausea, vomiting, hematemesis, or hematochezia. She states that she did take her Xifaxan and Lactulose at home as prescribed. She has no further complaints. Allergies Allergy/AdvReac Type Severity Reaction Status Date / Time Iodinated Contrast Media Allergy Intermediate hives-PT Verified 11/09/20 00:24 DENIES SEE NOTE adhesive Allergy Mild RED RASH Verified 11/09/20 00:24 CAUSED BY PAPER TAPE vancomycin AdvReac Severe renal Verified 11/09/20 00:24 failure, required dialysis x 3 MONTHS acetaminophen AdvReac Intermediate Liver Verified 11/09/20 00:24 problems. alprazolam AdvReac Intermediate MAKES Verified 11/09/20 00:24 LOOPY,DO AND SAY SILLY THINGS codeine AdvReac Intermediate UPSET Verified 11/09/20 00:24 STOMACH haloperidol AdvReac Intermediate nervous Verified 11/09/20 00:24 and anxious metformin AdvReac Intermediate HANDS FEET Verified 11/09/20 00:24 FACE NUMB methylparaben AdvReac Intermediate FLUID Verified 11/09/20 00:24 RETENTION morphine AdvReac Intermediate SWELLING Verified 11/09/20 00:24 LEGS AND FEET oxymorphone AdvReac Intermediate FLUID Verified 08/22/20 19:01 RETENTION pregabalin AdvReac Intermediate Aphasia/Speech Verified 08/22/20 19:01 impairments gabapentin AdvReac Mild Aphasia/Speech Verified 08/22/20 19:01 impairments Sulfa (Sulfonamide AdvReac Mild GI SYMPTOMS Verified 08/22/20 19:01 Antibiotics) Home Medications Medication Instructions Recorded Confirmed Type duloxetine 60 mg capsule,delayed 60 mg PO BID 03/12/19 11/09/20 History release (Cymbalta) furosemide 20 mg tablet (Lasix) 20 - 60 mg PO QAM PRN 03/12/19 11/09/20 History insulin aspart U-100 100 unit/mL 15 unit SUBCUT TIDM 03/12/19 11/09/20 History (3 mL) subcutaneous pen (Novolog Flexpen U-100 Insulin aspart) prochlorperazine maleate 5 mg 5 mg PO TID PRN 03/12/19 11/09/20 History tablet (Compazine) rivaroxaban 20 mg tablet (Xarelto) 20 mg PO PM 03/12/19 11/09/20 History carvedilol 12.5 mg tablet 12.5 mg PO BID 03/21/19 11/09/20 History nortriptyline 25 mg capsule 25 mg PO HS 03/21/19 11/09/20 History (Pamelor) dulaglutide 1.5 mg/0.5 mL 1.5 mg SUBCUT WK 07/13/19 11/09/20 History subcutaneous pen injector (Trulicity) albuterol sulfate 90 mcg/actuation 2 puff INHALATION Q4H PRN 08/01/19 11/09/20 History aerosol inhaler (Ventolin HFA) ferrous sulfate 325 mg (65 mg 325 mg PO QAM 08/01/19 11/09/20 History iron) tablet pantoprazole 40 mg tablet,delayed 40 mg PO DAILYBB 08/01/19 11/09/20 History release rifaximin 550 mg tablet (Xifaxan) 550 mg PO BID #60 tab 08/15/19 11/09/20 Rx trazodone 50 mg tablet 50 mg PO HS 08/29/19 11/09/20 History famotidine 20 mg tablet 20 mg PO BID 09/17/19 11/09/20 History albuterol sulfate 2.5 mg INHALATION Q4 PRN 10/04/19 11/09/20 History magnesium chloride 64 mg 64 mg PO PM 10/05/19 11/09/20 History (magnesium chloride) tablet,delayed release levothyroxine 175 mcg tablet 175 mcg PO DAILY 11/20/19 11/09/20 History buprenorphine HCl 150 mcg buccal 600 mcg BUCCAL BID 07/20/20 11/09/20 History film (Belbuca) prednisone 20 mg tablet 40 mg PO DAILY #2 tab 07/26/20 11/09/20 Rx ibuprofen 200 mg tablet (Advil) 800 mg PO Q6H PRN 08/22/20 11/09/20 History spironolactone 25 mg tablet 50 mg PO BID 08/22/20 11/09/20 History (Aldactone) doxycycline hyclate 100 mg capsule 100 mg PO BID@0700,1900 #8 cap 11/07/20 11/09/20 Rx insulin glargine 100 unit/mL (3 60 unit SUBCUT BID #0 ml 11/07/20 11/09/20 Rx mL) subcutaneous pen (Basaglar KwikPen U-100 Insulin) lactulose 10 gram/15 mL oral 30 ml PO QID #0 ml 11/07/20 11/09/20 Rx solution (Constulose) oxycodone 15 mg tablet 15 mg PO QID PRN #0 tab 11/07/20 11/09/20 Rx Patient History Medical History Abdominal wall cellulitis Acute hepatic encephalopathy Bowel obstruction Cauda equina compression Cellulitis and abscess of trunk (Unknown) Chronic low back pain COPD, group D, by GOLD 2017 classification Deep vein blood clot of left lower extremity RIGHT AND LEFT LEG AND THEN MOVED LUNG - 2002 Diabetes Diabetic neuropathy (01/04/11) Fracture of fourth metatarsal bone of left foot Gastritis Hyperammonemia Hypokalemia Hypomagnesemia Incarcerated ventral hernia Kidney stone HX OF AND HAD LITHOTRIPSY RIMA (obstructive sleep apnea) HX OF AND NO CURRENT PROBLEM Paroxysmal A-fib 2013 on Xarelto Pyelonephritis Rectal bleeding Septic shock Severe sepsis Splenomegaly, not elsewhere classified Supratherapeutic INR UTI (urinary tract infection) Surgical History History of appendectomy History of arthroplasty of right knee Hx of lithotripsy Hx of ventral hernia repair S/P cholecystectomy S/P sinus surgery S/P MARLEE (total abdominal hysterectomy) Family History Father Cancer Liver Brother Kidney disease Renal failure Cirrhosis Brother Cirrhosis Other Family history non-contributory Social History Smoking Status: Current every day smoker Tobacco Type: Cigarettes Cigarettes Per Day: 1/2 PPD; Second Hand Exposure: Yes; Hx Alcohol Use: No Hx Substance Use: No Preferred Language: Turkmen Communication Ability: Effective Mandrel Puller Required: No Beliefs That Will Affect Care: None marital status: Life Partner Current Living Situation: Significant Other Current Living Situation Comment: per ER documentation, pt resides with significant other current occupational status: disabled Feels Safe at Home: Yes Assistive Devices: Oxygen - Continuous Review of Systems Constitutional: as per Subjective / HPI Eyes: as per Subjective / HPI Ear, Nose, Mouth, Throat: as per Subjective / HPI Respiratory: as per Subjective / HPI Cardiovascular: as per Subjective / HPI Gastrointestinal: as per Subjective / HPI Musculoskeletal: as per Subjective / HPI Integumentary: as per Subjective / HPI Neurologic: as per Subjective / HPI Psychiatric: as per Subjective / HPI Endocrine: as per Subjective / HPI Hematologic / Lymphatic: as per Subjective / HPI Allergy / Immunological: as per Subjective / HPI Physical Exam Constitutional: + ill appearing (chronic) and + obese; no acute distress Eyes: + anicteric sclerae ENMT: external ear and nose normal, oropharynx normal Neck: normal visual inspection Respiratory: normal respiratory effort; no respiratory distress and no labored breathing Auscultation: lungs clear to auscultation bilaterally Cardiovascular: RRR, no murmur, no edema Skin: no rashes, warm and dry Psychiatric: A+Ox3, euthymic affect Results & Data ([facility]) Vital Signs (Past 12 Hours) Vital Signs Temp Pulse Pulse Resp BP BP Pulse Ox 11/09/20 12:00 36.4 C L 57 L 18 113/79 92 11/09/20 08:02 36.6 C 55 L 20 117/76 100 11/09/20 08:00 50 L 11/09/20 06:33 50 L 11/09/20 05:41 36.6 C 52 L 16 113/54 L 97 11/09/20 04:31 50 L 22 120/84 99 PG Care Time/CCT Total # of Minutes Spent Total Time Spent with Patient: Total time spent is greater than 50% in coordination of care (as documented) at patient's floor/unit and/or counseling patient: Coding Level of Care Code 92151 Inpt Consult Level 4 Diagnoses 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
--- NOTE | 2020-11-09 15:24 | Pharmacy Report ---
Pharmacy Glycemic Short Note 2 - Date of Service November 09, 2020 - Glycemic Short BSG Results (Last 24 hours): 11/09/20 11/09/20 11/09/20 00:06 01:57 02:47 Glucose 64 L 58 L POC Glucose 62 L* 11/09/20 11/09/20 11/09/20 04:20 05:56 07:30 Glucose POC Glucose 95 85 86 11/09/20 11/09/20 11/09/20 07:55 11:42 14:18 Glucose 88 POC Glucose 116 H 105 H OUTPATIENT ANTIDIABETIC REGIMEN: * Trulicity 1.5 mg weekly on Sundays * Lantus 60 units BID * Novolog 15 units TID with meals ASSESSMENT: * 54 y/o F admitted for upper GI bleed. She was just discharged from [facility] 2 days ago. * Patient with Type 2 diabetes, managed at home on SQ Trulicity and basal and bolus insulin. Will hold Trulicity during admission and only utilized basal + bolus insulin for glycemic control. * Spoke to nurse today about patient's last home dose of Lantus. She checked with the patient; patient took Lantus 40 units last night. * Overnight, patient was hypoglycemic, so Lantus dose reduced for tonight. Also, patient is NPO. * Ordered Novolog parameters based off of last admission. PLAN FOR INPATIENT GLYCEMIC CONTROL: * Hold outpatient SQ Trulicity * Basal insulin * Lantus 10/15/20 units scale SQ HS based on BSG * Bolus insulin * NovoLog per scale ACHS or Q6hrs while NPO * Goal Range: Low 110 mg/dL - High 140 mg/dL * Correction Factor: 10 mg/dL/unit * Nutritional / Prandial insulin per carb ratio of 1 unit per 4 grams CHO consumed PLAN FOR DISCHARGE: * TBD
[2020-11-09] MEDS ORDERED: POTASSIUM CHLORIDE CRTAB 20 MEQ TABCR PO ONE (16:00)
[2020-11-09] MEDS: oxyCODONE HCL IR 5 MG TAB (IMMEDIATE RELEASE) PO PRN (17:13)
[2020-11-09] MEDS ORDERED: Nursing to Pharmacy Communication SCH (17:15)
[2020-11-09] MEDS: INSULIN ASPART 100 UNITS/ML 3 ML PEN SC SCH ×2 (17:57→20:27)
[2020-11-09] MEDS ORDERED: INSULIN ASPART 100 UNITS/ML 3 ML PEN SC SCH (18:00)
[2020-11-09] MEDS ORDERED: INSULIN GLARGINE SOLOSTAR 100 UNITS/ML 3 ML PEN SC ONE (19:15)
[2020-11-09] MEDS ORDERED: HYDROmorphone INJ 0.5 MG/0.5 ML SYR IV STA (19:41)
[2020-11-09] MEDS ORDERED: CEFEPIME 2,000 MG in SYRINGE 0 ML IV SCH (20:00)
[2020-11-09] MEDS ORDERED: INSULIN HUMAN REGULAR PER UNIT 5 UNITS in SYRINGE 4.95 ML IV ONE (20:15)
[2020-11-09] MEDS: NORTRIPTYLINE HCL 25 MG CAP PO SCH (20:29)
[2020-11-09] MEDS ORDERED: INSULIN GLARGINE SOLOSTAR 100 UNITS/ML 3 ML PEN SC SCH (21:00)
[2020-11-09 22:23] LABS: Hematocrit (blood only) 34.7 % (37-47); Hemoglobin 11.9 g/dL (12.0-16.0)
[2020-11-10] MEDS: DEXTROSE 50% 50 ML SYRINGE IV PRN ×2 (00:02→07:46)
[2020-11-10] MEDS ORDERED: INSULIN ASPART 100 UNITS/ML 3 ML PEN SC ONE (02:00)
[2020-11-10] MEDS: oxyCODONE HCL IR 5 MG TAB (IMMEDIATE RELEASE) PO PRN ×4 (02:15→21:08)
[2020-11-10] MEDS: PANTOprazole 40 MG in DEXTROSE 5% 100 ML IV SCH ×2 (03:44→07:49)
[2020-11-10] MEDS: POTASSIUM CHLORIDE 40 MEQ in SODIUM CHLORIDE 0.9% 1000ML 1,000 ML IV SCH (03:45)
[2020-11-10] MEDS: LEVOTHYROXINE SODIUM 175 MCG TABLET PO SCH (06:18)
[2020-11-10] MEDS: LACTULOSE SYRUP 20 GM/30 ML UDC PO SCH ×3 (07:47→21:00)
[2020-11-10] MEDS: DULoxetine HCL 60 MG CAP PO SCH ×2 (07:47→21:00)
[2020-11-10] MEDS: rifAXIMin 550 MG TABLET PO SCH ×2 (07:48→21:01)
[2020-11-10] MEDS: INSULIN ASPART 100 UNITS/ML 3 ML PEN SC SCH ×5 (07:53→21:03)
[2020-11-10 08:19] LABS: Basophils # (auto) 0.01 K/uL (0-0.2); Basophils % (auto) 0.1 %; Eosinophils # (auto) 0.04 K/uL (0-0.5); Eosinophils % (auto) 0.4 %; Hematocrit (blood only) 34.1 % (37-47); Hemoglobin 11.9 g/dL (12.0-16.0); Immature Granulocytes # (auto) 0.05 K/uL (0.00-0.02); Immature Granulocytes % (auto) 0.5 %; Lymphocytes # (auto) 2.03 K/uL (1.2-3.4); Lymphocytes % (auto) 19.3 %; Mean Corpuscular Hemoglobin 35.6 pg (25-34); Mean Corpuscular Hgb Conc 34.9 g/dL (32-36); Mean Corpuscular Volume 102.1 fL (80-100); Mean Platelet Volume 9.2 fL (7.4-10.4); Monocytes # (auto) 0.91 K/uL (0.11-0.59); Monocytes % (auto) 8.7 %; Neutrophils # (auto) 7.47 K/uL (1.4-6.5); Platelet Count 122 K/uL (130-400); RDW Coefficient of Variation 15.8 % (11.5-14.5); Red Blood Count 3.34 M/uL (4.2-5.4); White Blood Count 10.51 K/uL (4.8-10.8)
[2020-11-10 08:28] LABS: INR 1.3 (0.9-1.1); Prothrombin Time 13.3 Seconds (9.0-12.0)
[2020-11-10 08:55] LABS: Albumin Level 2.3 gm/dl (3.4-5.0); BUN Creatinine Ratio 12.9 (10-20); Calcium 8.5 mg/dl (8.5-10.1); Creatinine Clr Calc Pharmacy 78.7 ml/min; Est GFR (African American) 67.2 ml/min; Magnesium 1.9 mg/dl (1.8-2.4); Potassium 3.7 mmol/L (3.5-5.1)
[2020-11-10 08:58] LABS: Albumin Globulin Ratio 0.6 (0.9-2); Globulin 3.9 gm/dl (2.5-4.0); Total Protein 6.2 gm/dl (6.4-8.2)
--- NOTE | 2020-11-10 09:00 | Gastroenterology Progress Note ---
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 sepsis, narcotics), and heme positive stools w/o overt s/s of GI bleeding. H/H stable - UTI management per primary care - Defer repeat EGD at this time - Monitor blood ct closely - Continue Lactulose and Xifaxan at current doses. Add Zinc supplement. Check Zinc level - Avoid narcotics as it may contribute to confusion - Continue f/u care for her cirrhosis in OP GI clinic - Recall GI prn (2) Encephalopathy: (3) Heme positive stool: Admission and Anticipated Discharge Date Admission Date: November 09, 2020 Supervising Physician Co-Signing Physician Notes I saw and evaluated the patient. She appears to have problems with recurrent encephalopathy which is likely being driven by her ongoing need for narcotics. Would recommend continued use of rifaximin, lactulose 1-2 times daily and if would add zinc for possible zinc deficiency. We would also suggest minimizing use of narcotics if possible. As the patient has had no drop in her hemoglobin or matter crit it does not appear that she has evidence of active gastrointestinal bleeding. She also had a recent upper endoscopy which showed no evidence of problems within the upper digestive tract. For the present time we would recommend on holding with regard to endoscopic interventions. Please call with any questions or concerns Subjective Pt w/o reid s/s of GI bleeding overnight. H/H stable Denies abd pain ,n/v. But is c/o back pain Review of Systems Review of Systems: All systems reviewed & are unremarkable except as noted in HPI & below Physical Exam Constitutional: well groomed, cooperative and comfortable Morbidly obese Eyes: PERRL, conjunctivae normal, anicteric sclerae ENMT: external ear and nose normal, oropharynx normal Respiratory: normal respiratory effort, lungs clear to auscultation Cardiovascular: RRR, no murmur, no edema Gastrointestinal (Abdomen): normal bowel sounds, soft, nontender, no hepatosplenomegaly Skin: no rashes, warm and dry no jaundice Neurologic: Motor/Sensory: no asterixis Psychiatric: A+Ox3, euthymic affect Lymphatic: + lymphedema (generalized, non pitting edema on legs ) Results & Data ([facility]) Vital Signs (Past 12 Hours) Vital Signs Temp Pulse Pulse Resp BP Pulse Ox 11/10/20 07:48 36.6 C 57 L 22 105/70 99 11/10/20 02:53 36.6 C 64 20 135/84 95 11/09/20 23:24 74 11/09/20 22:52 36.6 C 78 20 112/63 99
[2020-11-10] MEDS: PANTOprazole 40 MG TAB PO SCH ×2 (09:41→21:01)
[2020-11-10] MEDS: ZINC SULFATE 220 MG CAPSULE PO SCH (10:08)
[2020-11-10] MEDS ORDERED: INSULIN GLARGINE SOLOSTAR 100 UNITS/ML 3 ML PEN SC ONE (12:30)
[2020-11-10] MEDS: CEFEPIME 2,000 MG in SYRINGE 0 ML IV SCH ×2 (14:15→21:01)
--- NOTE | 2020-11-10 15:01 | Pharmacy Report ---
Pharmacy Glycemic Short Note 2 - Date of Service November 10, 2020 - Glycemic Short BSG Results (Last 24 hours): 11/09/20 11/09/20 11/09/20 16:53 16:55 20:01 Glucose POC Glucose 319 H* 325 H* 357 H* 11/09/20 11/09/20 11/09/20 20:02 23:25 23:26 Glucose POC Glucose 321 H* 55 L* 58 L* 11/09/20 11/09/20 11/10/20 23:54 23:55 00:20 Glucose POC Glucose 61 L* 57 L* 75 11/10/20 11/10/20 11/10/20 02:07 07:34 07:36 Glucose POC Glucose 91 65 L* 57 L* 11/10/20 11/10/20 11/10/20 08:04 08:04 12:01 Glucose 112 H POC Glucose 104 H 142 H OUTPATIENT ANTIDIABETIC REGIMEN: * Trulicity 1.5 mg weekly on Sundays * Lantus 60 units BID * Novolog 15 units TID with meals ASSESSMENT: 11/10/20 * Patient's BSGs on 11/09/20 were 62/85 -[phone] and overnight were 75 mg/dL. Fasting this morning was 57 mg/dL. * Patient received 20 units of Lantus and 29 units of Novolog yesterday (all at dinnertime). No additional insulin since. * Held morning Lantus until lunchtime since patient NPO. Diet ordered at lunch. Oddly, patient had tolerated Lantus 30-40 units/day on last admission. Will start with 10 units of Lantus this morning. * Loosened Novolog significantly. * Okay with slightly higher BSGs today. BACKGROUND * 54 y/o F admitted for upper GI bleed. She was just discharged from [facility] 2 days ago. * Patient with Type 2 diabetes, managed at home on SQ Trulicity and basal and bolus insulin. Will hold Trulicity during admission and only utilized basal + bolus insulin for glycemic control. * Spoke to nurse today about patient's last home dose of Lantus. She checked with the patient; patient took Lantus 40 units last night. * Overnight, patient was hypoglycemic, so Lantus dose reduced for tonight. Also, patient is NPO. * Ordered Novolog parameters based off of last admission. PLAN FOR INPATIENT GLYCEMIC CONTROL: * Hold outpatient SQ Trulicity * Basal insulin * Lantus 10 units SQ x 1 then reassess tomorrow * Bolus insulin * NovoLog per scale ACHS or Q6hrs while NPO * Goal Range: Low 110 mg/dL - High 140 mg/dL * Correction Factor: 20 mg/dL/unit * Nutritional / Prandial insulin per carb ratio of 1 unit per 6 grams CHO consumed PLAN FOR DISCHARGE: * TBD
[2020-11-10] MEDS ORDERED: HYDROmorphone INJ 0.5 MG/0.5 ML SYR IV ONE (18:24)
--- NOTE | 2020-11-10 18:32 | Hospitalist Progress Note ---
Date of Service November 10, 2020 Assessment & Plan (1) Encephalopathy: Plan: Acute Metabolic Encephalopathy Likely multifactorial:Possible UTI, Medications, Hypoglycemia, Hepatic Encephalopathy CT head: No acute intracranial findings. Normal Ammonia levels Continue lactulose, rifaximin Monitor for hypoglycemia Mental status back to baseline Melena In setting of Xarelto, NSAIDs use, on Iron supplements -CT ABD:Several small right renal calculi. No ureteral calculi or hydronephrosis. Interlobular septal thickening within the lower lungs suggestive of interstitial pulmonary edema. Groundglass opacities may reflect an infectious process or pulmonary alveolar edema. Cirrhosis. Splenomegaly and varices formation indicative of portal hypertension. No bowel obstruction. -Admits to using NSAIDs -Advised to quit using NSAIDSs Monitor H&H and transfuse as needed Hb stable Appreciate GI Input Continue PPI Needs follow up with GI as outpatient Recent Umbilical wound Infection Suspected UTI/Sepsis--ruled out Blood culture:Negative to date Urine Culture: Yeast Continue Cefepime DM II HbA1C:5.6 Continue Insulin therapy Adjust medications as needed Monitor for Hypoglycemia Needs medication adjustment upon discharge Acute Kidney Injury Likely due to NSAIDs, Diuretics, Lactulose use Cr:1.8>1.2>1.07 Monitor renal function DC IV fluids Avoid Nephrotoxic agents as able Hypokalemia Replace electrolytes as able Monitor Hypothyroidism Continue levothyroxine RIMA on Oxygen at bedtime Non compliance with CPAP Morbid obesity BMI:61 Lumbago Chronic pain Previously on Prednisone--currently off it as per patient Minimize Narcotic use as able MEEK Cirrhosis H/O Medication Non complaince MELD:12 Continue lactulose, Rifaximin Chronic diastolic heart failure EF 65 to 70%, TTE 2020 Monitor Volume status Resume home diuretics as able Recurrent PE/DVT on Xarelto Resume Xarelto Bipolar disorder continue home homes Ongoing tobacco abuse [employer]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 DVT Px: Xarelto Code Status Full code Admission and Anticipated Discharge Date Admission Date: November 09, 2020 Subjective Patient is seen and examined at bedside states having chronic back pian Denies chest pain, dyspnea, dizziness, dysuria, hematuria Offers no other complaints Review of Systems Review of Systems: All systems reviewed & are unremarkable except as noted in Subjective Physical Exam Physical Exam: Physical Exam: Vitals signs as noted above General Appearance:Morbidly obese, no apparent distress Head: normocephalic, Atraumatic Eyes: normal inspection, EOMI Neck: supple, Trachea midline Respiratory/Chest: Normal breath sounds, CTA, No accessory muscle use Cardiovascular: S1, S2, No murmur Abdomen/GI:Soft, Non tender, Bowel sounds present Extremities/Musculoskeletal:normal inspection, B/L LE edema Neurologic/Psych:AAOX3, grossly no focal neurological deficits Skin: normal color, warm Results & Data Results & Data ([facility]) Vital Signs (Past 12 Hours) Vital Signs Temp Pulse Pulse Resp BP Pulse Ox 11/10/20 16:18 65 11/10/20 15:22 36.5 C 79 18 118/75 93 11/10/20 11:12 36.7 C 67 20 145/72 H 99 11/10/20 10:27 60 11/10/20 07:48 36.6 C 57 L 22 105/70 99 Laboratory Results Short CBC 11/09/20 11/10/20 Range/Units 20:06 08:04 WBC 10.51 (4.8-10.8) K/uL Hgb 11.9 L 11.9 L (12.0-16.0) g/dL Hct 34.7 L 34.1 L (37-47) % Plt Count 122 L (130-400) K/uL BMP 11/10/20 08:04 Sodium 139 Potassium 3.7 Chloride 112 H Carbon Dioxide 22 BUN 14 Creatinine 1.07 Glucose 112 H Calcium 8.5 Liver Function 11/10/20 Range/Units 08:04 Total Bilirubin 2.0 H (0.2-1) mg/dl AST 53 H (15-37) U/L ALT 47 (12-78) U/L Alkaline Phosphatase 153 H (45-117) U/L Albumin 2.3 L (3.4-5.0) gm/dl
[2020-11-10] MEDS: NORTRIPTYLINE HCL 25 MG CAP PO SCH (21:00)
[2020-11-10] MEDS ORDERED: RIVAROXABAN 20 MG TAB PO SCH (21:00)
[2020-11-10] MEDS ORDERED: traZODone HCL 50 MG TAB PO SCH (21:00)
[2020-11-10 23:12] LABS: BUN Creatinine Ratio 10.2 (10-20); Blood Urea Nitrogen 13 mg/dl (7-18); Calcium 8.2 mg/dl (8.5-10.1); Carbon Dioxide 21 mmol/L (21-32); Chloride 111 mmol/L (98-107); Creatinine Clr Calc Pharmacy 66.3 ml/min; Est GFR (African American) 54.6 ml/min; Est GFR (Non-African American) 47.1 ml/min; Glucose 261 mg/dl (70-99); Potassium 3.4 mmol/L (3.5-5.1); Sodium 139 mmol/L (136-145)
[2020-11-10 23:17] LABS: Troponin I < 0.015 ng/ml (0-0.045)
[2020-11-11] MEDS: oxyCODONE HCL IR 5 MG TAB (IMMEDIATE RELEASE) PO PRN ×2 (04:32→10:23)
[2020-11-11] MEDS: LEVOTHYROXINE SODIUM 175 MCG TABLET PO SCH (05:32)
[2020-11-11] MEDS: CEFEPIME 2,000 MG in SYRINGE 0 ML IV SCH ×2 (05:33→13:37)
[2020-11-11 07:15] LABS: Hematocrit (blood only) 34.4 % (37-47); Hemoglobin 11.7 g/dL (12.0-16.0); Mean Corpuscular Hemoglobin 35.8 pg (25-34); Mean Corpuscular Volume 105.2 fL (80-100); RDW Coefficient of Variation 16.2 % (11.5-14.5); RDW Standard Deviation 60.6 fL (36.4-46.3); Red Blood Count 3.27 M/uL (4.2-5.4); White Blood Count 5.81 K/uL (4.8-10.8)
[2020-11-11 07:19] LABS: INR 1.6 (0.9-1.1); Prothrombin Time 15.9 Seconds (9.0-12.0)
[2020-11-11 07:33] LABS: Albumin Globulin Ratio 0.6 (0.9-2); Albumin Level 2.1 gm/dl (3.4-5.0); Bilirubin,Total 1.3 mg/dl (0.2-1); Calcium 8.3 mg/dl (8.5-10.1); Creatinine Clr Calc Pharmacy 88.8 ml/min; Est GFR (African American) 77.6 ml/min; Globulin 3.5 gm/dl (2.5-4.0); Total Protein 5.6 gm/dl (6.4-8.2)
[2020-11-11 07:59] LABS: Basophils # (auto) 0.01 K/uL (0-0.2); Basophils % (auto) 0.2 %; Eosinophils # (auto) 0.07 K/uL (0-0.5); Eosinophils % (auto) 1.2 %; Immature Granulocytes # (auto) 0.01 K/uL (0.00-0.02); Immature Granulocytes % (auto) 0.2 %; Lymphocytes # (auto) 1.55 K/uL (1.2-3.4); Lymphocytes % (auto) 26.7 %; Mean Platelet Volume 9.1 fL (7.4-10.4); Monocytes # (auto) 0.74 K/uL (0.11-0.59); Monocytes % (auto) 12.7 %; Neutrophils # (auto) 3.43 K/uL (1.4-6.5); Platelet Count 93 K/uL (130-400); Platelet Estimate Decreased (Normal)
[2020-11-11 08:13] LABS: Potassium 3.5 mmol/L (3.5-5.1)
[2020-11-11] MEDS ORDERED: BACLOFEN 10 MG TAB PO PRN (08:36)
--- NOTE | 2020-11-11 08:45 | Pain Management Consultation ---
Date of Consultation November 11, 2020 Assessment & Plan (1) Hepatic encephalopathy: (2) Chronic low back pain: (3) Morbid obesity: 1. Continue Oxycodone at 10mg four times daily for chronic pain. 2. I did clearly state that she is not to receive any IV Dilaudid given that she has been brought in for confusion and opioids could be a contributing factor and she is understanding. 3. I did offer her Baclofen 10mg QD-BID if needed for breakthrough spasm and she is agreeable. 4. Not a candidate for interventional procedures. 5. She should discuss her opioid use with her prescribing physician on discharge. Patient did state that she took Oxycodone 15mg 1/2 tablet twice a day on the day she was more confused and brought back into the Emergency Department so she is stating that she is not taking the full Oxycodone 15mg four times daily as prescribed by her pain clinic. 6. Will sign off on the patient. Please call with any questions or concerns. History of Present Illness Reason for Consultation: back pain Attending Physician: Geoffrey Card MD History of Present Illness This is a morbidly obese 54 year old female that has been re-admitted to the [facility] for confusion. She does have a significant history of MEEK resulting in liver cirrhosis. She does also have chronic low back pain and sees a pain clinic for opioids. According to PDMP her opioid use is chronic. 7+ years of opioids. Over the past year her medications have been increased to Oxycodone 15mg four times daily, previously 10mg. Patient states the majority of her pain is located in the left lower back and will shoot upwards to the mid thoracic region. The pain is worse with movement. Patient is able to transfer without assistance and uses a wheelchair for ambulation. S he does request IV Dilaudid if she does have breakthrough pain as that has worked for her in the past. Patient denies any bowel/bladder incontinence, saddle anesthesia, foot drop, or falls. Pain Assessment Full Body Front + Back: 1. 2. Allergies Allergy/AdvReac Type Severity Reaction Status Date / Time Iodinated Contrast Media Allergy Intermediate hives-PT Verified 11/09/20 00:24 DENIES SEE NOTE adhesive Allergy Mild RED RASH Verified 11/09/20 00:24 CAUSED BY PAPER TAPE vancomycin AdvReac Severe renal Verified 11/09/20 00:24 failure, required dialysis x 3 MONTHS acetaminophen AdvReac Intermediate Liver Verified 11/09/20 00:24 problems. alprazolam AdvReac Intermediate MAKES Verified 11/09/20 00:24 LOOPY,DO AND SAY SILLY THINGS codeine AdvReac Intermediate UPSET Verified 11/09/20 00:24 STOMACH haloperidol AdvReac Intermediate nervous Verified 11/09/20 00:24 and anxious metformin AdvReac Intermediate HANDS FEET Verified 11/09/20 00:24 FACE NUMB methylparaben AdvReac Intermediate FLUID Verified 11/09/20 00:24 RETENTION morphine AdvReac Intermediate SWELLING Verified 11/09/20 00:24 LEGS AND FEET oxymorphone AdvReac Intermediate FLUID Verified 08/22/20 19:01 RETENTION pregabalin AdvReac Intermediate Aphasia/Speech Verified 08/22/20 19:01 impairments gabapentin AdvReac Mild Aphasia/Speech Verified 08/22/20 19:01 impairments Sulfa (Sulfonamide AdvReac Mild GI SYMPTOMS Verified 08/22/20 19:01 Antibiotics) Home Medications Medication Instructions Recorded Confirmed Type duloxetine 60 mg capsule,delayed 60 mg PO BID 03/12/19 11/09/20 History release (Cymbalta) furosemide 20 mg tablet (Lasix) 20 - 60 mg PO QAM PRN 03/12/19 11/09/20 History insulin aspart U-100 100 unit/mL 15 unit SUBCUT TIDM 03/12/19 11/09/20 History (3 mL) subcutaneous pen (Novolog Flexpen U-100 Insulin aspart) prochlorperazine maleate 5 mg 5 mg PO TID PRN 03/12/19 11/09/20 History tablet (Compazine) rivaroxaban 20 mg tablet (Xarelto) 20 mg PO PM 03/12/19 11/09/20 History carvedilol 12.5 mg tablet 12.5 mg PO BID 03/21/19 11/09/20 History nortriptyline 25 mg capsule 25 mg PO HS 03/21/19 11/09/20 History (Pamelor) dulaglutide 1.5 mg/0.5 mL 1.5 mg SUBCUT WK 07/13/19 11/09/20 History subcutaneous pen injector (Trulicity) albuterol sulfate 90 mcg/actuation 2 puff INHALATION Q4H PRN 08/01/19 11/09/20 History aerosol inhaler (Ventolin HFA) ferrous sulfate 325 mg (65 mg 325 mg PO QAM 08/01/19 11/09/20 History iron) tablet pantoprazole 40 mg tablet,delayed 40 mg PO DAILYBB 08/01/19 11/09/20 History release rifaximin 550 mg tablet (Xifaxan) 550 mg PO BID #60 tab 08/15/19 11/09/20 Rx trazodone 50 mg tablet 50 mg PO HS 08/29/19 11/09/20 History famotidine 20 mg tablet 20 mg PO BID 09/17/19 11/09/20 History albuterol sulfate 2.5 mg INHALATION Q4 PRN 10/04/19 11/09/20 History magnesium chloride 64 mg 64 mg PO PM 10/05/19 11/09/20 History (magnesium chloride) tablet,delayed release levothyroxine 175 mcg tablet 175 mcg PO DAILY 11/20/19 11/09/20 History buprenorphine HCl 150 mcg buccal 600 mcg BUCCAL BID 07/20/20 11/09/20 History film (Belbuca) prednisone 20 mg tablet 40 mg PO DAILY #2 tab 07/26/20 11/09/20 Rx ibuprofen 200 mg tablet (Advil) 800 mg PO Q6H PRN 08/22/20 11/09/20 History spironolactone 25 mg tablet 50 mg PO BID 08/22/20 11/09/20 History (Aldactone) doxycycline hyclate 100 mg capsule 100 mg PO BID@0700,1900 #8 cap 11/07/20 11/09/20 Rx insulin glargine 100 unit/mL (3 60 unit SUBCUT BID #0 ml 11/07/20 11/09/20 Rx mL) subcutaneous pen (Basaglar KwikPen U-100 Insulin) lactulose 10 gram/15 mL oral 30 ml PO QID #0 ml 11/07/20 11/09/20 Rx solution (Constulose) oxycodone 15 mg tablet 15 mg PO QID PRN #0 tab 11/07/20 11/09/20 Rx Patient History Medical History Abdominal wall cellulitis Acute hepatic encephalopathy Bowel obstruction Cauda equina compression Cellulitis and abscess of trunk (Unknown) Chronic low back pain COPD, group D, by GOLD 2017 classification Deep vein blood clot of left lower extremity RIGHT AND LEFT LEG AND THEN MOVED LUNG - 2002 Diabetes Diabetic neuropathy (01/04/11) Fracture of fourth metatarsal bone of left foot Gastritis Hyperammonemia Hypokalemia Hypomagnesemia Incarcerated ventral hernia Kidney stone HX OF AND HAD LITHOTRIPSY RIMA (obstructive sleep apnea) HX OF AND NO CURRENT PROBLEM Paroxysmal A-fib 2013 on Xarelto Pyelonephritis Rectal bleeding Septic shock Severe sepsis Splenomegaly, not elsewhere classified Supratherapeutic INR UTI (urinary tract infection) Surgical History History of appendectomy History of arthroplasty of right knee Hx of lithotripsy Hx of ventral hernia repair S/P cholecystectomy S/P sinus surgery S/P MARLEE (total abdominal hysterectomy) Family History Father Cancer Liver Brother Kidney disease Renal failure Cirrhosis Brother Cirrhosis Other Family history non-contributory Social History Smoking Status: Current every day smoker Tobacco Type: Cigarettes Cigarettes Per Day: 1/2 PPD; Second Hand Exposure: Yes; Hx Alcohol Use: No Hx Substance Use: No Preferred Language: Upper Sorbian Communication Ability: Effective Vocational Rehabilitation Specialist Required: No Beliefs That Will Affect Care: None marital status: Life Partner Current Living Situation: Significant Other Current Living Situation Comment: per ER documentation, pt resides with significant other current occupational status: disabled Feels Safe at Home: Yes Assistive Devices: None Physical Exam Physical Exam: GENERAL: This is a morbidly obese 54 year old female. She is able to transfer from bed to chair without assistance. Does not appear in any acute distress when transferring. HEAD/FACE: Normocephalic and atraumatic. EYES: No drainage or conjunctival injection. ENT: Nose without bleeding or discharge. Oral mucosa moist. NECK: Full ROM without apparent pain. No swelling or masses noted. RESPIRATORY: Patient with unlabored breathing. No signs of respiratory distress. CHEST/AXILLA: Chest movement symmetrical. No deformities noted. BACK: Normal lumbar lordosis. Loss of ROM due to body habitus. There is tenderness along the left L4-S1 facet region. Mild overlying muscle spasm. SKIN: Carter, warm and dry. No rash noted. MS/EXTREMITY: No swelling, no deformities. Moving extremities appropriately. NEURO: Alert and appears oriented. Speech is fluent. Cranial Nerves are grossly intact. PSYCH: Alert, pleasant, affect is calm Results (Pain Clinic) Diagnostic Review CT Findings: LUMBAR SPINE CT CT DOSE: 1044.69 mGy.cm HISTORY: Pt c/o low back pain TECHNIQUE: Multiaxial CT images of the lumbar spine were performed and reformatted in the sagittal and coronal plane without the use of contrast. A dose lowering technique was utilized adhering to the principles of ALARA. COMPARISON: 11/20/2019. FINDINGS: There is a new mild compression fracture at L1 demonstrating up to 20% loss of height centrally. Therefore, this is likely acute. No associated retropulsion. Remaining vertebral bodies are maintained. A moderate to severe degenerative changes are again noted. The visualized sacrum appears intact. Overall, suboptimal evaluation due to the patient's body habitus. IMPRESSION: An acute mild compression fracture at L1. No associated retropulsion. ACT 112: Negative or not required by law. Electronically signed by: Kalpesh Carcamo M.D. 05/31/2020 7:43 AM
[2020-11-11] MEDS: DULoxetine HCL 60 MG CAP PO SCH (08:48)
[2020-11-11] MEDS: PANTOprazole 40 MG TAB PO SCH (08:48)
[2020-11-11] MEDS: ZINC SULFATE 220 MG CAPSULE PO SCH (08:49)
[2020-11-11] MEDS: rifAXIMin 550 MG TABLET PO SCH (08:49)
[2020-11-11] MEDS: LACTULOSE SYRUP 20 GM/30 ML UDC PO SCH ×2 (08:49→13:37)
[2020-11-11] MEDS: INSULIN ASPART 100 UNITS/ML 3 ML PEN SC SCH ×2 (08:50→12:13)
[2020-11-11] MEDS ORDERED: POTASSIUM CHLORIDE CRTAB 20 MEQ TABCR PO ONE (08:54)
[2020-11-11] MEDS ORDERED: INSULIN GLARGINE SOLOSTAR 100 UNITS/ML 3 ML PEN SC ONE (09:00)
[2020-11-11] MEDS ORDERED: FERROUS SULFATE 325 MG TAB PO SCH (09:00)
[2020-11-11] MEDS ORDERED: carvediloL 12.5 MG TAB PO SCH (09:00)
[2020-11-11] MEDS ORDERED: FAMOTIDINE 20 MG TAB PO SCH (09:00)
[2020-11-11] MEDS ORDERED: SPIRONOLACTONE 25 MG TAB PO SCH (09:00)
--- NOTE | 2020-11-11 13:02 | Pharmacy Report ---
Pharmacy Glycemic Short Note 2 - Date of Service November 11, 2020 - Glycemic Short BSG Results (Last 24 hours): 11/10/20 11/10/20 11/10/20 17:02 20:04 21:57 Glucose POC Glucose 305 H* 219 H 288 H 11/10/20 11/11/20 11/11/20 22:21 05:48 08:08 Glucose 261 H 157 H POC Glucose 130 H 11/11/20 12:05 Glucose POC Glucose 216 H OUTPATIENT ANTIDIABETIC REGIMEN: * Trulicity 1.5 mg weekly on Sundays * Lantus 60 units BID * Novolog 15 units TID with meals ASSESSMENT: 11/11/20 * Patient's BSGs were [phone]. Fasting BSG this morning was 130 mg/dL. * Patient received 64 units of insulin yesterday (10 units of basal and 54 units of bolus). * Fasting was 130 mg/dL. Give Lantus 20 units as patient now has diet ordered. This was tolerated in previous hospitalization. * BSGs trending up postprandially. Tighten CF/CR 11/10/20 * Patient's BSGs on 11/09/20 were 62/85 -[phone] and overnight were 75 mg/dL. Fasting this morning was 57 mg/dL. * Patient received 20 units of Lantus and 29 units of Novolog yesterday (all at dinnertime). No additional insulin since. * Held morning Lantus until lunchtime since patient NPO. Diet ordered at lunch. Oddly, patient had tolerated Lantus 30-40 units/day on last admission. Will start with 10 units of Lantus this morning. * Loosened Novolog significantly. * Okay with slightly higher BSGs today. BACKGROUND * 54 y/o F admitted for upper GI bleed. She was just discharged from [facility] 2 days ago. * Patient with Type 2 diabetes, managed at home on SQ Trulicity and basal and bolus insulin. Will hold Trulicity during admission and only utilized basal + bolus insulin for glycemic control. * Spoke to nurse today about patient's last home dose of Lantus. She checked with the patient; patient took Lantus 40 units last night. * Overnight, patient was hypoglycemic, so Lantus dose reduced for tonight. Also, patient is NPO. * Ordered Novolog parameters based off of last admission. PLAN FOR INPATIENT GLYCEMIC CONTROL: * Hold outpatient SQ Trulicity * Basal insulin * Lantus 20 units SQ x 1 then reassess tomorrow * Bolus insulin * NovoLog per scale ACHS or Q6hrs while NPO * Goal Range: Low 110 mg/dL - High 140 mg/dL * Correction Factor:15 mg/dL/unit * Nutritional / Prandial insulin per carb ratio of 1 unit per 4 grams CHO consumed PLAN FOR DISCHARGE: * TBD
--- NOTE | 2020-11-11 14:44 | Hospitalist Progress Note ---
Date of Service November 11, 2020 Assessment & Plan (1) Encephalopathy: Plan: Acute Metabolic Encephalopathy Likely multifactorial:Medications, Hypoglycemia, Hepatic Encephalopathy CT head: No acute intracranial findings. Patient admits to being non complaint with regular meals and mistakenly taking her previous dose of Insulin (And not the dose recommended from recent discharge) Normal Ammonia levels Continue lactulose, rifaximin Monitor for hypoglycemia Mental status back to baseline Counseled on importance of regular meals, blood glucose checks and Insulin therapy Melena In setting of Xarelto, NSAIDs use, on Iron supplements -CT ABD:Several small right renal calculi. No ureteral calculi or hydronephrosis. Interlobular septal thickening within the lower lungs suggestive of interstitial pulmonary edema. Groundglass opacities may reflect an infectious process or pulmonary alveolar edema. Cirrhosis. Splenomegaly and varices formation indicative of portal hypertension. No bowel obstruction. -Admits to using NSAIDs -Advised to quit using NSAIDSs Monitor H&H and transfuse as needed Appreciate GI Input Continue PPI Hb stable Needs follow up with GI as outpatient Recent Umbilical wound Infection Suspected UTI/Sepsis--ruled out Blood culture:Negative to date Urine Culture: Yeast Received Cefepime for 2 days DM II HbA1C:5.6 Continue Insulin therapy Adjust medications as needed Monitor for Hypoglycemia Needs medication adjustment upon discharge Acute Kidney Injury Likely due to NSAIDs, Diuretics, Lactulose use Cr:1.8>1.2>1.07>0.95 Monitor renal function DC IV fluids Avoid Nephrotoxic agents as able Hypokalemia Replace electrolytes as able Monitor Hypothyroidism Continue levothyroxine RIMA on Oxygen at bedtime Non compliance with CPAP Morbid obesity BMI:61 Lumbago Chronic pain Previously on Prednisone--currently off it as per patient Minimize Narcotic use as able MEEK Cirrhosis H/O Medication Non compliance MELD:12 Continue lactulose, Rifaximin Titrate Lactulose to 3 BMs for day Chronic diastolic heart failure EF 65 to 70%, TTE 2020 Monitor Volume status Resume home diuretics as able Recurrent PE/DVT on Xarelto Resume Xarelto Bipolar disorder continue home homes Ongoing tobacco abuse 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 counseling and guidance to quit smoking DVT Px: Xarelto Code Status Full code Admission and Anticipated Discharge Date Admission Date: November 09, 2020 Subjective Patient is seen and examined at bedside No new complaints Eager to get discharged chronic back pian Denies chest pain, dyspnea, dizziness, dysuria, hematuria Review of Systems Review of Systems: All systems reviewed & are unremarkable except as noted in Subjective Physical Exam Physical Exam: Physical Exam: Vitals signs as noted above General Appearance:Morbidly obese, no apparent distress Head: normocephalic, Atraumatic Eyes: normal inspection, EOMI Neck: supple, Trachea midline Respiratory/Chest: Normal breath sounds, CTA, No accessory muscle use Cardiovascular: S1, S2, No murmur Abdomen/GI:Soft, Non tender, Bowel sounds present Extremities/Musculoskeletal:normal inspection, B/L LE edema Neurologic/Psych:AAOX3, grossly no focal neurological deficits Skin: normal color, warm Results & Data Results & Data ([facility]) Vital Signs (Past 12 Hours) Vital Signs Temp Pulse Pulse Resp BP BP Pulse Ox 11/11/20 12:22 36.5 C 74 20 132/84 97 11/11/20 08:32 36.5 C 75 20 112/61 100 11/11/20 07:11 84 11/11/20 03:39 36.6 C 77 20 105/63 96 Laboratory Results Short CBC 11/11/20 11/11/20 Range/Units 05:48 06:47 WBC Cancelled 5.81 Hgb Cancelled 11.7 L Hct Cancelled 34.4 L Plt Count Cancelled 93 L BMP 11/10/20 11/11/20 22:21 05:48 Sodium 139 140 Potassium 3.4 L 3.5 Chloride 111 H 114 H Carbon Dioxide 21 22 BUN 13 12 Creatinine 1.27 H 0.95 D Glucose 261 H 157 H Calcium 8.2 L 8.3 L Cardiac Enzymes 11/10/20 Range/Units 22:21 Troponin I < 0.015 (0-0.045) ng/ml Liver Function 11/11/20 Range/Units 05:48 Total Bilirubin 1.3 H (0.2-1) mg/dl AST 59 H (15-37) U/L ALT 53 (12-78) U/L Alkaline Phosphatase 157 H (45-117) U/L Albumin 2.1 L (3.4-5.0) gm/dl
--- NOTE | 2020-11-11 15:08 | Discharge Summary ---
Date of Service November 11, 2020 Admission HPI Per Admitting Provider History obtained from patient, family, and records. Limited history from patient secondary to obtunded state. 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 Recent admission November 032020 for hepatic encephalopathy. Patient discharged on doxycycline course for periumbilical infection.Prednisone prescription noted on discharge medication list for unclear reasons. At home, patient noted to be weak and intermittently confused as per partner. Compliant with home medications. Black stools noted at home as per report. Patient complaining of worsening back pain. No abdominal pain, emesis complaints as per partner. Patient brought to the ER for evaluation. SBP noted to be 80s at some point during ER stay. IVF bolus administered. IV PPI administered at the ER for GI bleed. MHX : 2019 EGD showed mild antral gastritis 2012 colonoscopy showed polyps, external/internal hemorrhoids SURGERIES: She has had appendectomy, hysterectomy, cholecystectomy, hernia repair, knee surgery, FAMILY HISTORY: Diabetes, heart disease, hypertension. PERSONAL AND SOCIAL HISTORY: Half pack daily, no chronic intake of alcoholic beverages, on disability, lives with partner. Admission Exam Per Admitting Provider Physical Exam Physical Exam: GENERAL: Obtunded, morbidly obese, no respiratory distress SKIN: normal color, warm HEENT: [place] palpebral conjunctivae, no ptosis, dry buccal mucosa NECK : Supple, short neck, no tenderness CHEST : Decreased breath sounds, no tenderness HEART : Bradycardic, no obvious murmurs ABDOMEN: distention, nontender EXTREMITIES : Bilateral LE swelling, no LE tenderness, no other conspicuous deformities noted NEUROLOGIC : Obtunded, no facial asymmetry, no other gross focality Principal Diagnosis Acute Metabolic Encephalopathy Melena Acute Kidney Injury Hypoglycemia Discharge Data Allergies Allergy/AdvReac Type Severity Reaction Status Date / Time Iodinated Contrast Media Allergy Intermediate hives-PT Verified 11/09/20 00:24 DENIES SEE NOTE adhesive Allergy Mild RED RASH Verified 11/09/20 00:24 CAUSED BY PAPER TAPE vancomycin AdvReac Severe renal Verified 11/09/20 00:24 failure, required dialysis x 3 MONTHS acetaminophen AdvReac Intermediate Liver Verified 11/09/20 00:24 problems. alprazolam AdvReac Intermediate MAKES Verified 11/09/20 00:24 LOOPY,DO AND SAY SILLY THINGS codeine AdvReac Intermediate UPSET Verified 11/09/20 00:24 STOMACH haloperidol AdvReac Intermediate nervous Verified 11/09/20 00:24 and anxious metformin AdvReac Intermediate HANDS FEET Verified 11/09/20 00:24 FACE NUMB methylparaben AdvReac Intermediate FLUID Verified 11/09/20 00:24 RETENTION morphine AdvReac Intermediate SWELLING Verified 11/09/20 00:24 LEGS AND FEET oxymorphone AdvReac Intermediate FLUID Verified 08/22/20 19:01 RETENTION pregabalin AdvReac Intermediate Aphasia/Speech Verified 08/22/20 19:01 impairments gabapentin AdvReac Mild Aphasia/Speech Verified 08/22/20 19:01 impairments Sulfa (Sulfonamide AdvReac Mild GI SYMPTOMS Verified 08/22/20 19:01 Antibiotics) Consultations 11/09/20 01:27 ED Decision to Admit Stat 11/09/20 05:39 Consult Gastroenterology Routine 11/10/20 13:44 Consult Pain Management Routine Ordered Studies 11/09/20 02:31 CT head/brain wo con Urgent 11/09/20 02:32 CT abd pelvis wo con Urgent Hospital Course (1) Encephalopathy: Acute Metabolic Encephalopathy Likely multifactorial:Medications, Hypoglycemia, Hepatic Encephalopathy CT head: No acute intracranial findings. Patient admits to being non complaint with regular meals and mistakenly taking her previous dose of Insulin (And not the dose recommended from recent discharge) Normal Ammonia levels Continue lactulose, rifaximin Monitor for hypoglycemia Mental status back to baseline Counseled on importance of regular meals, blood glucose checks and Insulin therapy Melena In setting of Xarelto, NSAIDs use, on Iron supplements -CT ABD:Several small right renal calculi. No ureteral calculi or hydronephrosis. Interlobular septal thickening within the lower lungs suggestive of interstitial pulmonary edema. Groundglass opacities may reflect an infectious process or pulmonary alveolar edema. Cirrhosis. Splenomegaly and varices formation indicative of portal hypertension. No bowel obstruction. -Admits to using NSAIDs -Advised to quit using NSAIDSs Monitor H&H and transfuse as needed Appreciate GI Input Continue PPI Hb stable Needs follow up with GI as outpatient Recent Umbilical wound Infection Suspected UTI/Sepsis--ruled out Blood culture:Negative to date Urine Culture: Yeast Received Cefepime for 2 days DM II HbA1C:5.6 Continue Insulin therapy Adjust medications as needed Monitor for Hypoglycemia Needs medication adjustment upon discharge Acute Kidney Injury Likely due to NSAIDs, Diuretics, Lactulose use Cr:1.8>1.2>1.07>0.95 Monitor renal function DC IV fluids Avoid Nephrotoxic agents as able Hypokalemia Replace electrolytes as able Monitor Hypothyroidism Continue levothyroxine RIMA on Oxygen at bedtime Non compliance with CPAP Morbid obesity BMI:61 Lumbago Chronic pain Previously on Prednisone--currently off it as per patient Minimize Narcotic use as able MEEK Cirrhosis H/O Medication Non compliance MELD:12 Continue lactulose, Rifaximin Titrate Lactulose to 3 BMs for day Chronic diastolic heart failure EF 65 to 70%, TTE 2020 Monitor Volume status Resume home diuretics as able Recurrent PE/DVT on Xarelto Resume Xarelto Bipolar disorder continue home homes Ongoing tobacco abuse res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 DVT Px: Xarelto Code Status Full code Total Time Total Time Spent Total Time Spent (In Minutes): 44 minutes Discharge Plan Discharge Items Patient Disposition: Home - Self-Care Reason For Visit: UGIB Discharge Diagnosis: Acute Metabolic Encephalopathy Melena Acute Kidney Injury Hypoglycemia Activity: Per Instructions section Exercise/Sports: Gradually increase as tolerated Non-emergency contact: Primary Care Provider, Specialist and Ship Captain Call non-emergency contact if: you have any medication questions, your symptoms worsen, your pain is concerning for you and you have a fever Follow-up/Referrals: Dewey Mcfadden, DO [Primary Care Provider] - (Date & Time 11/12/2020 9:00 AM Provider Gary Burris MD [facility] ) Diet: Carb Consistent or DM2 Addtl Attending Provider Instructions: Follow up with your primary care physician tomorrow: 11/12/2020 9:00 AM as scheduled Follow-up with your fish tender for further recommendations on possible outpatient Esophagogastroduodenoscopy. Your Basaglar (Long acting Insulin ) is decreased to 60 units daily. Further adjustment of your Insulin therapy as per your Primary Care physician. Titrate your Lactulose to have 3 good Bowel movements per day as advised Do not take group of medications belonging to NSAIDs group -can cause worsening of your kidney function. List Of these medications includes but not limited to: Diclofenac Ibuprofen, Motrin, Advil Toradol,ketorolac Naproxen, Aleve, Naprosyn When buying [id number] pain medications please consult with pharmacy if you are not sure regarding ingredients, as a lot of the pain medications have combination of NSAIDs and Tylenol. Seek immediate medical attention if your symptoms reoccur or worsen Please take all medications as instructed on discharge list below. Please call if you have any questions or problems. You can reach a [facility] hospitalist on duty at [facility] 24 hours a day by calling [phone] Pending Studies at Discharge: No Stand-Alone Forms: My [email or web address] [email or web address], Smoking Cessation Medications and DC Order Prescriptions: New baclofen 10 mg Tablet 10 mg PO BID PRN (Reason: spasms) Qty: 60 RF: 0 Continued pantoprazole 40 mg tablet,delayed release (DR/EC) 40 mg PO DAILYBB RF: 0 ferrous sulfate 325 mg (65 mg iron) tablet 325 mg PO QAM RF: 0 albuterol sulfate [Ventolin HFA] 90 mcg/actuation HFA aerosol inhaler 2 puff inhalation Q4H PRN (Reason: Shortness Of Breath) RF: 0 trazodone 50 mg tablet 50 mg PO HS RF: 0 albuterol sulfate 2.5 mg /3 mL (0.083 %) solution for nebulization 2.5 mg inhalation Q4 PRN (Reason: Shortness Of Breath) RF: 0 levothyroxine 175 mcg tablet 175 mcg PO DAILY RF: 0 insulin aspart U-100 [Novolog Flexpen U-100 Insulin] 100 unit/mL (3 mL) insulin pen 15 unit SUBCUT TIDM RF: 0 duloxetine [Cymbalta] 60 mg capsule,delayed release(DR/EC) 60 mg PO BID RF: 0 Xarelto 20 mg tablet 20 mg PO PM RF: 0 furosemide [Lasix] 20 mg Tablet 20 - 60 mg PO QAM PRN (Reason: Edema) RF: 0 carvedilol 12.5 mg Tablet 12.5 mg PO BID RF: 0 nortriptyline [Pamelor] 25 mg Capsule 25 mg PO HS RF: 0 Trulicity 1.5 mg/0.5 mL pen injector 1.5 mg SUBCUT WK RF: 0 Xifaxan 550 mg Tablet 550 mg PO BID Qty: 60 RF: 0 famotidine 20 mg tablet 20 mg PO BID RF: 0 magnesium chloride 64 mg tablet,delayed release (DR/EC) 64 mg PO PM RF: 0 [place] 150 mcg film 600 mcg BUCCAL BID RF: 0 spironolactone [Aldactone] 25 mg tablet 50 mg PO BID RF: 0 lactulose [Constulose] 10 gram/15 mL solution 30 ml PO QID Qty: 0 RF: 0 Changed oxycodone 15 mg tablet 10 mg PO TID PRN (Reason: Pain) Qty: 0 RF: 0 Basaglar KwikPen U-100 Insulin 100 unit/mL (3 mL) insulin pen 60 unit SUBCUT DAILY Qty: 0 RF: 0 Discontinued prochlorperazine maleate [Compazine] 5 mg tablet 5 mg PO TID PRN (Reason: Nausea) RF: 0 prednisone 20 mg Tablet 40 mg PO DAILY Qty: 2 RF: 0 ibuprofen [Advil] 200 mg Tablet 800 mg PO Q6H PRN (Reason: Pain) RF: 0 doxycycline hyclate 100 mg Capsule 100 mg PO BID@0700,1900 Qty: 8 RF: 0 Discharge Orders: Discharge Order (Routine); Ordered 11/11/20 Ordered By: Geoffrey Card Admission Data Admit Date/Time: 11/09/20 04:24 Attending Provider: Geoffrey Card Admit Provider: Harjinder Starkey Primary Care Provider: Dewey Mcfadden Other Providers: Harjinder Starkey ; See Ramirez ; Pauline Cisneros ; Vicky Patterson ; Kait Zavaleta ; Carlos Jones ; Jamie Guadalupe ; Eloy Cantu ; Oscar Cleveland ; Janett Rizvi ; Skyla Mortensen ; Rosa Rosado ; Sofia Saleh ; Hilton Morgan ; Cm Mazariegos Other Interventions: Discharge Summary Assessment (RN) Last Done: 11/11/20 15:10
--- NOTE | 2020-11-11 15:35 | Electrocardiogram Report ---
Test Reason : Blood Pressure : / mmHG Vent. Rate : 107 BPM Atrial Rate : 108 BPM P-R Int : 000 ms QRS Dur : 082 ms QT Int : 358 ms P-R-T Axes : 000 023 013 degrees QTc Int : 477 ms Possible Accelerated Junctional rhythm Abnormal ECG When compared with ECG of 08-NOV-2020 23:46, Junctional rhythm has replaced Sinus rhythm Vent. rate has increased BY 46 BPM Nonspecific T wave abnormality no longer evident in Anterior leads Confirmed by Casey Cardoza ([id number]) on 11/11/2020 3:35:24 PM Referred By: REFERRED SELF Confirmed By:Casey Cardoza
[2020-11-11] MEDS ORDERED: MAGNESIUM CHLORIDE 64MG DELAYED REL TAB PO SCH (21:00)
[2020-11-12 16:42] LABS: Zinc 55 mcg/dL (60-130)
== END 2020-11-11 15:51 | disposition home or self-care (01) | DRG 441 ==
LOC: ED 23:26 → 2N 11-09 04:24

== ENCOUNTER 2020-12-14 10:19 | Inpatient (IN) ==
[2020-12-14] MEDS ORDERED: SODIUM CHLORIDE 0.9% 1000ML 1,000 ML IV ONE (11:05)
--- NOTE | 2020-12-14 11:14 | Emergency Department Note ---
History of Present Illness General Chief complaint: Hypoglycemia Stated complaint: Hypoglycemia Time Seen by Provider: 12/14/20 11:00 Source: patient and EMS Mode of arrival: ambulatory Limitations: altered mental status and clinical acuity History of Present Illness This patient was brought in after being found with decreased level of con sciousness and she had a low blood sugar in the field. IV access was tablets and she was given an amp of D50 and her blood sugar here is normal in the low 100s. She says she started feeling tired last night she is sleepy but arousable answers most questions appropriately denies chest pain or shortness of breath. Denies fever or chills. She is had no blood or melena stool. Denies focal numbness or weakness. Says she just feels tired. Home Medications Medication Instructions Recorded Confirmed Type duloxetine 60 mg capsule,delayed 60 mg PO BID 03/12/19 12/14/20 History release (Cymbalta) rivaroxaban 20 mg tablet (Xarelto) 20 mg PO HS 03/12/19 12/14/20 History carvedilol 12.5 mg tablet (Coreg) 12.5 mg PO BID 03/21/19 12/14/20 History dulaglutide 1.5 mg/0.5 mL 1.5 mg SUBCUT WK 07/13/19 12/14/20 History subcutaneous pen injector (Trulicity) ferrous sulfate 325 mg (65 mg 325 mg PO QDB 08/01/19 12/14/20 History iron) tablet (Iron (ferrous sulfate)) pantoprazole 40 mg tablet,delayed 40 mg PO DAILYBB 08/01/19 12/14/20 History release (Protonix) rifaximin 550 mg tablet (Xifaxan) 550 mg PO BID #60 tab 08/15/19 12/14/20 Rx trazodone 50 mg tablet 50 mg PO HS 08/29/19 12/14/20 History famotidine 20 mg tablet (Pepcid) 20 mg PO BID 09/17/19 12/14/20 History magnesium chloride 64 mg 64 mg PO PM 10/05/19 12/14/20 History (magnesium chloride) tablet,delayed release (Mag 64) spironolactone 25 mg tablet 25 mg PO DAILY 08/22/20 12/14/20 History (Aldactone) baclofen 10 mg tablet 10 mg PO BID PRN #60 tab 11/11/20 12/14/20 Rx albuterol sulfate 90 mcg/actuation 2 inha INH QID PRN 12/14/20 12/14/20 History aerosol inhaler (Ventolin HFA) furosemide 20 mg tablet (Lasix) 20 mg PO TID 12/14/20 12/14/20 History lactulose 10 gram/15 mL oral 30 ml PO QID 12/14/20 12/14/20 History solution (Constulose) levothyroxine 200 mcg tablet 200 mcg PO DAILYBB 12/14/20 12/14/20 History (Synthroid) oxycodone 15 mg tablet (Roxicodone) 15 mg PO TID PRN 12/14/20 12/14/20 History prochlorperazine maleate 5 mg 5 mg PO BID PRN 12/14/20 12/14/20 History tablet (Compazine) insulin aspart U-100 100 unit/mL 10 unit SUBCUT TIDM #0 ml 12/16/20 12/14/20 Rx (3 mL) subcutaneous pen (Novolog Flexpen U-100 Insulin aspart) insulin glargine 100 unit/mL (3 30 unit SUBCUT DAILY #0 ml 12/16/20 12/14/20 Rx mL) subcutaneous pen (Basaglar KwikPen U-100 Insulin) potassium chloride 20 mEq 20 meq PO DAILY #30 tab 12/16/20 Rx tablet,extended release(part/cryst) Allergies Allergy/AdvReac Type Severity Reaction Status Date / Time Iodinated Contrast Media Allergy Intermediate hives-PT Verified 12/14/20 11:01 DENIES SEE NOTE adhesive Allergy Mild RED RASH Verified 12/14/20 11:01 CAUSED BY PAPER TAPE vancomycin AdvReac Severe renal Verified 12/14/20 11:01 failure, required dialysis x 3 MONTHS acetaminophen AdvReac Intermediate Liver Verified 12/14/20 11:01 problems. alprazolam AdvReac Intermediate MAKES Verified 12/14/20 11:01 LOOPY,DO AND SAY SILLY THINGS codeine AdvReac Intermediate UPSET Verified 12/14/20 11:01 STOMACH haloperidol AdvReac Intermediate nervous Verified 12/14/20 11:01 and anxious metformin AdvReac Intermediate HANDS FEET Verified 12/14/20 11:01 FACE NUMB methylparaben AdvReac Intermediate FLUID Verified 12/14/20 11:01 RETENTION morphine AdvReac Intermediate SWELLING Verified 12/14/20 11:01 LEGS AND FEET oxymorphone AdvReac Intermediate FLUID Verified 12/14/20 11:01 RETENTION pregabalin AdvReac Intermediate Aphasia/Speech Verified 12/14/20 11:01 impairments gabapentin AdvReac Mild Aphasia/Speech Verified 12/14/20 11:01 impairments Sulfa (Sulfonamide AdvReac Mild GI SYMPTOMS Verified 12/14/20 11:01 Antibiotics) Past Med/Surg History Medical History Abdominal wall cellulitis Acute hepatic encephalopathy Bowel obstruction Cauda equina compression Cellulitis and abscess of trunk (Unknown) Chronic low back pain COPD, group D, by GOLD 2017 classification Deep vein blood clot of left lower extremity RIGHT AND LEFT LEG AND THEN MOVED LUNG - 2001 Diabetes Diabetic neuropathy (01/04/11) Fracture of fourth metatarsal bone of left foot Gastritis Hyperammonemia Hypokalemia Hypomagnesemia Incarcerated ventral hernia Kidney stone HX OF AND HAD LITHOTRIPSY RIMA (obstructive sleep apnea) HX OF AND NO CURRENT PROBLEM Paroxysmal A-fib 2013 on Xarelto Pyelonephritis Rectal bleeding Septic shock Severe sepsis Splenomegaly, not elsewhere classified Supratherapeutic INR UTI (urinary tract infection) Surgical History History of appendectomy History of arthroplasty of right knee Hx of lithotripsy Hx of ventral hernia repair S/P cholecystectomy S/P sinus surgery S/P MARLEE (total abdominal hysterectomy) Family History Father Cancer Liver Brother Kidney disease Renal failure Cirrhosis Brother Cirrhosis Other Family history non-contributory Social History Smoking Status: Current every day smoker Tobacco Type: Cigarettes Cigarettes Per Day: 1/2 PPD; Second Hand Exposure: Yes; Hx Alcohol Use: No Hx Substance Use: No Preferred Language: Yoruba Communication Ability: Effective Flow Coordinator Required: No Beliefs That Will Affect Care: None marital status: Current Living Situation: Significant Other Current Living Situation Comment: per ER documentation, pt resides with significant other current occupational status: disabled Other Information That Helps Us Care for You: No Feels Safe at Home: Yes Safety Concerns: Feels Safe At This Time Assistive Devices: Denture - Upper and Denture - Lower Assistive Devices Comment: doesn't wear dentures, claims they don't "fit right" Review of Systems A total of 10 systems reviewed and were otherwise negative Physical Exam Vital Signs Vital Signs - 24 hr 12/14/20 10:10 12/14/20 10:38 12/14/20 10:46 Temperature 36.1 C L Temperature Source Axillary Pulse Rate 45 L 44 L 44 L Pulse Rate [Apical] Pulse Rate from SpO2 Sensor Pulse Rhythm [Apical] Pulse Strength [Apical] Respiratory Rate 16 14 16 Respiratory Effort / Characteristics Non-Labored Respiratory Depth Normal Blood Pressure 96/61 L 81/44 L 90/61 L Blood Pressure [Right Arm] Blood Pressure Mean 72 56 70 Blood Pressure Mean [Right Arm] Blood Pressure Position Lying Blood Pressure Position [Right Arm] Pulse Oximetry 94 Oxygen Delivery Method Room Air Sepsis Recent Fever Within 48 Hours No Sepsis New/Unexplained Change in Mental Status No Sepsis Action Taken by Nursing No Action Required 12/14/20 11:05 12/14/20 11:59 12/14/20 12:03 Temperature Temperature Source Pulse Rate 45 L 71 Pulse Rate [Apical] 55 L Pulse Rate from SpO2 Sensor 48 L Pulse Rhythm [Apical] Pulse Strength [Apical] Respiratory Rate 16 19 16 Respiratory Effort / Characteristics Non-Labored Respiratory Depth Blood Pressure 122/72 Blood Pressure [Right Arm] 122/72 Blood Pressure Mean 88 Blood Pressure Mean [Right Arm] 88 Blood Pressure Position Blood Pressure Position [Right Arm] Lying Pulse Oximetry 94 91 98 Oxygen Delivery Method Room Air Room Air Sepsis Recent Fever Within 48 Hours Sepsis New/Unexplained Change in Mental Status Sepsis Action Taken by Nursing 12/14/20 14:08 12/14/20 14:24 12/14/20 14:45 Temperature Temperature Source Pulse Rate 85 49 L Pulse Rate [Apical] 91 H Pulse Rate from SpO2 Sensor 58 L 50 L Pulse Rhythm [Apical] Regular Pulse Strength [Apical] Normal Respiratory Rate 15 13 Respiratory Effort / Characteristics Respiratory Depth Blood Pressure 108/64 123/62 Blood Pressure [Right Arm] Blood Pressure Mean 78 82 Blood Pressure Mean [Right Arm] Blood Pressure Position Blood Pressure Position [Right Arm] Pulse Oximetry 92 94 Oxygen Delivery Method Sepsis Recent Fever Within 48 Hours Sepsis New/Unexplained Change in Mental Status Sepsis Action Taken by Nursing General: Well developed well nourished ill-appearing older female who is sleepy but arousable and falls back to sleep in no acute distress, breathing comfortably on room air. Normal speech HEENT: Normal cephalic atraumatic. Pupils are equal round and reactive to light. Extraocular movements are intact. Oropharynx is pink with moist mucous membranes. No swelling of the mouth lips or tongue. Neck: Supple with a midline trachea. No meningeal signs or stiffness, no JVD or bruits. No Stridor. Chest: Clear to auscultation bilaterally. No wheezes or rhonchi. No increased work of breathing. Heart: Regular rate and rhythm without murmurs or gallops. Abdomen: Soft nontender, nondistended without rebound guarding or rigidity. Extremities: No cyanosis clubbing. Chronic bilateral lower extremity edema. no calf tenderness or assymetry Spine/Back. Non tender to palpation. No CVA tenderness Skin: Good turgor without rashes. Neurologic exam: Moves all 4 extremities symmetrically Course Administered Medications Discontinued Medications Carvedilol (Carvedilol 12.5 Mg Tab) 12.5 mg PO BID [facility] Stop: 01/13/21 20:59 Last Admin: 12/16/20 09:50 Dose: 12.5 mg Documented by: [id number] Cosigned by: [id number] Admin: 12/15/20 20:19 Dose: 12.5 mg Documented by: [id number] Admin: 12/15/20 09:28 Dose: 12.5 mg Documented by: [id number] Admin: 12/14/20 20:12 Dose: 12.5 mg Documented by: [id number] Lactulose 200 gm/ Sterile Water 700 ml/ BARCODE IDENTIFIER 1 ea 0 gm NH ONE ONE Stop: 12/14/20 15:34 Last Admin: 12/14/20 17:29 Dose: Not Given Documented by: [id number] Duloxetine HCl (Duloxetine Hcl 60 Mg Cap) 60 mg PO BID [facility] Stop: 01/13/21 20:59 Last Admin: 12/16/20 09:51 Dose: 60 mg Documented by: [id number] Cosigned by: [id number] Admin: 12/15/20 20:19 Dose: 60 mg Documented by: [id number] Admin: 12/15/20 09:10 Dose: 60 mg Documented by: [id number] Admin: 12/14/20 20:13 Dose: 60 mg Documented by: [id number] Famotidine (Famotidine 20 Mg Tab) 20 mg PO BID PAUL Stop: 01/13/21 20:59 Last Admin: 12/16/20 09:51 Dose: 20 mg Documented by: [id number] Cosigned by: [id number] Admin: 12/15/20 20:19 Dose: 20 mg Documented by: [id number] Admin: 12/15/20 09:10 Dose: 20 mg Documented by: [id number] Admin: 12/14/20 20:13 Dose: 20 mg Documented by: [id number] Ferrous Sulfate (Ferrous Sulfate 325 Mg Tab) 325 mg PO DAILY PAUL Stop: 01/14/21 08:59 Last Admin: 12/16/20 09:52 Dose: 325 mg Documented by: [id number] Cosigned by: [id number] Admin: 12/15/20 09:11 Dose: 325 mg Documented by: [id number] Furosemide (Furosemide 40 Mg/4 Ml Vial) 20 mg IV NOW STA Stop: 12/14/20 15:25 Last Admin: 12/14/20 15:40 Dose: 20 mg Documented by: [id number] Furosemide (Furosemide 20 Mg Tab) 20 mg PO TID PAUL Stop: 01/13/21 20:59 Last Admin: 12/16/20 13:35 Dose: 20 mg Documented by: [id number] Cosigned by: [id number] Admin: 12/16/20 10:00 Dose: 20 mg Documented by: [id number] Cosigned by: [id number] Admin: 12/15/20 20:18 Dose: 20 mg Documented by: [id number] Admin: 12/15/20 15:14 Dose: 20 mg Documented by: [id number] Admin: 12/15/20 09:10 Dose: 20 mg Documented by: [id number] Admin: 12/14/20 20:15 Dose: 20 mg Documented by: [id number] Sodium Chloride (Nss 1000ml) 1,000 mls @ 999 mls/hr IV .Q1H1M ONE Stop: 12/14/20 12:05 Last Infusion: 12/14/20 13:29 Dose: 0 mls/hr Documented by: [id number] Admin: 12/14/20 12:04 Dose: 999 mls/hr Documented by: [id number] Magnesium Sulfate/Dextrose (Magnesium Sulfate / D5w) 1 gm in 100 mls @ 100 mls/hr IV NOW STA Stop: 12/14/20 13:32 Last Infusion: 12/14/20 16:43 Dose: 0 mls/hr Documented by: [id number] Admin: 12/14/20 15:30 Dose: 100 mls/hr Documented by: [id number] Dextrose (D10w) 1,000 mls @ 125 mls/hr IV .Q8H PAUL Stop: 01/13/21 12:44 Last Infusion: 12/14/20 17:32 Dose: 0 mls/hr Documented by: [id number] Infusion: 12/14/20 14:54 Dose: 0 mls/hr Documented by: [id number] Admin: 12/14/20 13:29 Dose: 125 mls/hr Documented by: [id number] Potassium Chloride (K Daniel / Wtr) 10 meq in 100 mls @ 100 mls/hr IV Q1H STA Stop: 12/14/20 15:29 Last Infusion: 12/14/20 16:36 Dose: 0 mls/hr Documented by: [id number] Admin: 12/14/20 15:30 Dose: 100 mls/hr Documented by: [id number] Furosemide 20 mg/ Syringe 2 mls @ 4 mls/min IV ONE ONE Stop: 12/14/20 23:01 Last Admin: 12/14/20 23:42 Dose: 4 mls/min Documented by: [id number] Magnesium Sulfate/Dextrose (Magnesium Sulfate / D5w) 1 gm in 100 mls @ 50 mls/hr IV ONE ONE Stop: 12/15/20 13:44 Last Infusion: 12/15/20 14:49 Dose: 0 mls/hr Documented by: [id number] Admin: 12/15/20 12:10 Dose: 50 mls/hr Documented by: [id number] Insulin Aspart (Insulin Aspart 100 Units/Ml 3 Ml Pen) 0 units SC ACHS PAUL Stop: 01/13/21 17:24 Last Admin: 12/16/20 12:38 Dose: 14 units Documented by: [id number] Cosigned by: [id number] Admin: 12/16/20 09:06 Dose: 4 units Documented by: [id number] Cosigned by: [id number] Admin: 12/15/20 19:54 Dose: Not Given Documented by: [id number] Admin: 12/15/20 17:46 Dose: 7 units Documented by: [id number] Cosigned by: [id number] Admin: 12/15/20 12:10 Dose: 8 units Documented by: [id number] Cosigned by: [id number] Admin: 12/15/20 09:15 Dose: 9 units Documented by: [id number] Cosigned by: [id number] Admin: 12/14/20 20:45 Dose: Not Given Documented by: [id number] Cosigned by: [id number] Admin: 12/14/20 17:25 Dose: Not Given Documented by: [id number] Insulin Glargine (Insulin Glargine Solostar 100 Units/Ml 3 Ml Pen) 20 units SQ DAILY PAUL Stop: 01/14/21 08:59 Last Admin: 12/16/20 09:23 Dose: 20 units Documented by: [id number] Cosigned by: [id number] Admin: 12/15/20 09:18 Dose: 20 units Documented by: [id number] Cosigned by: [id number] Insulin Glargine (Insulin Glargine Solostar 100 Units/Ml 3 Ml Pen) 5 units SQ ONE ONE Stop: 12/16/20 12:01 Last Admin: 12/16/20 12:42 Dose: 5 units Documented by: [id number] Cosigned by: [id number] Lactulose (Lactulose Syrup 20 Gm/30 Ml Udc) 20 gm PO NOW ONE Stop: 12/14/20 18:01 Last Admin: 12/14/20 18:11 Dose: 20 gm Documented by: [id number] Lactulose (Lactulose Syrup 30 Gm/45 Ml Udp) 30 gm PO QID PAUL Stop: 01/13/21 17:59 Last Admin: 12/16/20 13:33 Dose: 30 gm Documented by: [id number] Cosigned by: [id number] Admin: 12/16/20 09:54 Dose: 30 gm Documented by: [id number] Cosigned by: [id number] Admin: 12/15/20 20:18 Dose: 30 gm Documented by: [id number] Admin: 12/15/20 17:45 Dose: 30 gm Documented by: [id number] Admin: 12/15/20 12:12 Dose: 30 gm Documented by: [id number] Admin: 12/15/20 09:12 Dose: 30 gm Documented by: [id number] Admin: 12/14/20 20:16 Dose: 30 gm Documented by: [id number] Admin: 12/14/20 18:11 Dose: 30 gm Documented by: [id number] Levothyroxine Sodium (Levothyroxine Sodium 200 Mcg Tablet) 200 mcg PO DAILYBB PAUL Stop: 01/14/21 06:29 Last Admin: 12/16/20 04:49 Dose: 200 mcg Documented by: [id number] Admin: 12/15/20 06:31 Dose: 200 mcg Documented by: [id number] Magnesium Chloride (Magnesium Chloride 64mg Delayed Rel Tab) 64 mg PO PM PAUL Stop: 01/13/21 20:59 Last Admin: 12/15/20 20:18 Dose: 64 mg Documented by: [id number] Admin: 12/14/20 20:16 Dose: 64 mg Documented by: [id number] Miconazole Nitrate (Miconazole Nitrate Powder 43 Gm) 1 appln EXT PRN PRN PRN Reason: Affected Skin Folds Stop: 01/13/21 18:55 Last Admin: 12/14/20 20:27 Dose: 1 appln Documented by: [id number] Miscellaneous (Unit Dose Compound) 1 ea [place] Q8H PAUL Stop: 12/14/20 15:46 Last Admin: 12/14/20 17:29 Dose: Not Given Documented by: [id number] Oxycodone HCl (Oxycodone Hcl Ir 5 Mg Tab (Immediate Release)) 5 mg PO NOW STA Stop: 12/14/20 20:14 Last Admin: 12/14/20 20:27 Dose: 5 mg Documented by: [id number] Oxycodone HCl (Oxycodone Hcl Ir 5 Mg Tab (Immediate Release)) 10 mg PO NOW STA Stop: 12/15/20 01:35 Last Admin: 12/15/20 02:09 Dose: 10 mg Documented by: [id number] Oxycodone HCl (Oxycodone Hcl Ir 5 Mg Tab (Immediate Release)) 15 mg PO TID PRN PRN Reason: Pain Stop: 12/29/20 01:45 Last Admin: 12/15/20 20:18 Dose: 15 mg Documented by: [id number] Admin: 12/15/20 12:15 Dose: 15 mg Documented by: [id number] Admin: 12/15/20 06:31 Dose: 15 mg Documented by: [id number] Oxycodone HCl (Oxycodone Hcl Ir 5 Mg Tab (Immediate Release)) 15 mg PO QID PRN PRN Reason: Pain Stop: 12/29/20 01:45 Last Admin: 12/16/20 13:47 Dose: 15 mg Documented by: [id number] Cosigned by: [id number] Admin: 12/16/20 07:37 Dose: 15 mg Documented by: [id number] Cosigned by: [id number] Admin: 12/16/20 00:13 Dose: 15 mg Documented by: [id number] Pantoprazole Sodium (Pantoprazole 40 Mg Tab) 40 mg PO DAILYBB PAUL Stop: 01/14/21 06:29 Last Admin: 12/16/20 04:49 Dose: 40 mg Documented by: [id number] Admin: 12/15/20 06:31 Dose: 40 mg Documented by: [id number] Potassium Chloride (Potassium Chloride Crtab 20 Meq Tabcr) 20 meq PO NOW STA Stop: 12/14/20 14:31 Last Admin: 12/14/20 16:34 Dose: 20 meq Documented by: [id number] Potassium Chloride (Potassium Chloride Crtab 20 Meq Tabcr) 40 meq PO NOW STA Stop: 12/14/20 22:36 Last Admin: 12/14/20 23:42 Dose: 40 meq Documented by: [id number] Potassium Chloride (Potassium Chloride Crtab 20 Meq Tabcr) 40 meq PO NOW STA Stop: 12/15/20 11:23 Last Admin: 12/15/20 12:23 Dose: 40 meq Documented by: [id number] Potassium Chloride (Potassium Chloride Crtab 20 Meq Tabcr) 20 meq PO ONE ONE Stop: 12/15/20 15:01 Last Admin: 12/15/20 15:14 Dose: 20 meq Documented by: [id number] Potassium Chloride (Potassium Chloride Crtab 20 Meq Tabcr) 40 meq PO NOW STA Stop: 12/16/20 10:21 Last Admin: 12/16/20 11:31 Dose: 40 meq Documented by: [id number] Cosigned by: [id number] Potassium Phosphate (Pot Phosphate Monobasic W/ Sod Tab) 1 tab PO QID PAUL Stop: 01/15/21 12:59 Last Admin: 12/16/20 13:34 Dose: 1 tab Documented by: [id number] Cosigned by: [id number] Rifaximin (Rifaximin 550 Mg Tablet) 550 mg PO BID [facility] Stop: 01/13/21 20:59 Last Admin: 12/16/20 09:55 Dose: 550 mg Documented by: [id number] Cosigned by: [id number] Admin: 12/15/20 20:19 Dose: 550 mg Documented by: [id number] Admin: 12/15/20 09:11 Dose: 550 mg Documented by: [id number] Admin: 12/14/20 20:16 Dose: 550 mg Documented by: [id number] Rivaroxaban (Rivaroxaban 20 Mg Tab) 20 mg PO HS PAUL Stop: 01/13/21 20:59 Last Admin: 12/15/20 20:19 Dose: 20 mg Documented by: [id number] Admin: 12/14/20 20:16 Dose: 20 mg Documented by: [id number] Spironolactone (Spironolactone 25 Mg Tab) 50 mg PO BID PAUL Stop: 01/13/21 20:59 Last Admin: 12/16/20 09:55 Dose: 50 mg Documented by: [id number] Cosigned by: [id number] Admin: 12/15/20 20:19 Dose: 50 mg Documented by: [id number] Admin: 12/15/20 09:11 Dose: 50 mg Documented by: [id number] Admin: 12/14/20 20:17 Dose: 50 mg Documented by: [id number] Critical Care Time Critical Care Time: Yes Total Critical Care Time: 35 I have personally spent greater than 35 minutes of critical care time in the direct management of this patient. This includes bedside care, interpretation of diagnostic studies, and testing, discussion with consultants, patient, and family members, and other required patient management activities. This 35 minutes is in excess of all separately billable procedures. Medical Decision Making Differential Diagnosis Hepatic encephalopathy, sepsis, hypoglycemia, electrolyte or metabolic abnormality, GI bleed, intra-abdominal hemorrhage, Covid Medical Records Attestation: I reviewed the patient's medical records. Home Medications Current Medication List: was personally reviewed by me Laboratory Data Attestation: I reviewed the patient's lab results. Result diagrams: 12/16/20 07:39 12/16/20 07:39 Lab Results 12/14/20 12/14/20 12/14/20 Range/Units 10:43 11:44 11:44 WBC (4.8-10.8) K/uL RBC (4.2-5.4) M/uL Hgb (12.0-16.0) g/dL Hct (37-47) % MCV (80-100) fL MCH (25-34) pg MCHC (32-36) g/dL RDW Std Deviation (36.4-46.3) fL RDW Coeff of Mari (11.5-14.5) % Plt Count (130-400) K/uL MPV (7.4-10.4) fL Immature Gran % (Auto) % Neut % (Auto) % Lymph % (Auto) % Preble % (Auto) % Eos % (Auto) % Baso % (Auto) % Neut # (Auto) (1.4-6.5) K/uL Lymph # (Auto) (1.2-3.4) K/uL Preble # (Auto) (0.11-0.59) K/uL Eos # (Auto) (0-0.5) K/uL Baso # (Auto) (0-0.2) K/uL Immature Gran # (Auto) (0.00-0.02) K/uL Anisocytosis Macrocytosis Echinocytes PT (9.0-12.0) Seconds INR (0.9-1.1) APTT (21.0-31.0) Seconds PTT Ratio Sodium (136-145) mmol/L Potassium (3.5-5.1) mmol/L Chloride (98-107) mmol/L Carbon Dioxide (21-32) mmol/L Anion Gap (3-11) BUN (7-18) mg/dl Creatinine (0.6-1.2) mg/dl Est Cr Clr Drug Dosing ml/min Est GFR ( Amer) ml/min Est GFR (Non-Af Amer) ml/min BUN/Creatinine Ratio (10-20) Glucose (70-99) mg/dl POC Glucose 114 H (70-99) mg/dl Lactate (0.4-2.0) mmol/L Calcium (8.5-10.1) mg/dl Magnesium (1.8-2.4) mg/dl Total Bilirubin (0.2-1) mg/dl AST (15-37) U/L ALT (12-78) U/L Alkaline Phosphatase (45-117) U/L Ammonia (11-32) umol/L Troponin I (0-0.045) ng/ml NT-Pro-B Natriuret Pep (0-900) pg/ml Total Protein (6.4-8.2) gm/dl Albumin (3.4-5.0) gm/dl Globulin (2.5-4.0) gm/dl Albumin/Globulin Ratio (0.9-2) Procalcitonin (0-0.5) ng/ml Ethyl Alcohol mg/dL (0-3) mg/dl COVID-19 Eval Order Covid19 at [facility] SARS-CoV-2 (PCR) NEGATIVE (Negative) Blood Type Antibody Screen 12/14/20 12/14/20 12/14/20 Range/Units 11:53 11:53 11:53 WBC 7.70 (4.8-10.8) K/uL RBC 2.44 L (4.2-5.4) M/uL Hgb 8.9 L (12.0-16.0) g/dL Hct 27.5 L (37-47) % MCV 112.7 H (80-100) fL MCH 36.5 H (25-34) pg MCHC 32.4 (32-36) g/dL RDW Std Deviation 69.2 H (36.4-46.3) fL RDW Coeff of Mari 16.8 H (11.5-14.5) % Plt Count 113 L (130-400) K/uL MPV 9.4 (7.4-10.4) fL Immature Gran % (Auto) 0.4 % Neut % (Auto) 62.4 % Lymph % (Auto) 24.7 % Preble % (Auto) 10.3 % Eos % (Auto) 1.9 % Baso % (Auto) 0.3 % Neut # (Auto) 4.81 (1.4-6.5) K/uL Lymph # (Auto) 1.90 (1.2-3.4) K/uL Preble # (Auto) 0.79 H (0.11-0.59) K/uL Eos # (Auto) 0.15 (0-0.5) K/uL Baso # (Auto) 0.02 (0-0.2) K/uL Immature Gran # (Auto) 0.03 H (0.00-0.02) K/uL Anisocytosis Present Macrocytosis Present Echinocytes 1+ PT 12.7 H (9.0-12.0) Seconds INR 1.3 H (0.9-1.1) APTT 28.2 (21.0-31.0) Seconds PTT Ratio 1.1 Sodium 144 (136-145) mmol/L Potassium 3.1 L (3.5-5.1) mmol/L Chloride 111 H (98-107) mmol/L Carbon Dioxide 28 (21-32) mmol/L Anion Gap 5.0 (3-11) BUN 9 (7-18) mg/dl Creatinine 0.90 (0.6-1.2) mg/dl Est Cr Clr Drug Dosing 112.8 ml/min Est GFR ( Amer) 82.8 ml/min Est GFR (Non-Af Amer) 71.5 ml/min BUN/Creatinine Ratio 10.5 (10-20) Glucose 62 L (70-99) mg/dl POC Glucose (70-99) mg/dl Lactate (0.4-2.0) mmol/L Calcium 7.5 L (8.5-10.1) mg/dl Magnesium 1.6 L (1.8-2.4) mg/dl Total Bilirubin 1.5 H (0.2-1) mg/dl AST 34 (15-37) U/L ALT 21 (12-78) U/L Alkaline Phosphatase 174 H (45-117) U/L Ammonia (11-32) umol/L Troponin I < 0.015 (0-0.045) ng/ml NT-Pro-B Natriuret Pep (0-900) pg/ml Total Protein 5.4 L (6.4-8.2) gm/dl Albumin 1.9 L (3.4-5.0) gm/dl Globulin 3.5 (2.5-4.0) gm/dl Albumin/Globulin Ratio 0.5 L (0.9-2) Procalcitonin (0-0.5) ng/ml Ethyl Alcohol mg/dL (0-3) mg/dl COVID-19 Eval Order SARS-CoV-2 (PCR) (Negative) Blood Type Antibody Screen 12/14/20 12/14/20 12/14/20 Range/Units 11:53 11:53 11:53 WBC (4.8-10.8) K/uL RBC (4.2-5.4) M/uL Hgb (12.0-16.0) g/dL Hct (37-47) % MCV (80-100) fL MCH (25-34) pg MCHC (32-36) g/dL RDW Std Deviation (36.4-46.3) fL RDW Coeff of Mari (11.5-14.5) % Plt Count (130-400) K/uL MPV (7.4-10.4) fL Immature Gran % (Auto) % Neut % (Auto) % Lymph % (Auto) % Preble % (Auto) % Eos % (Auto) % Baso % (Auto) % Neut # (Auto) (1.4-6.5) K/uL Lymph # (Auto) (1.2-3.4) K/uL Preble # (Auto) (0.11-0.59) K/uL Eos # (Auto) (0-0.5) K/uL Baso # (Auto) (0-0.2) K/uL Immature Gran # (Auto) (0.00-0.02) K/uL Anisocytosis Macrocytosis Echinocytes PT (9.0-12.0) Seconds INR (0.9-1.1) APTT (21.0-31.0) Seconds PTT Ratio Sodium (136-145) mmol/L Potassium (3.5-5.1) mmol/L Chloride (98-107) mmol/L Carbon Dioxide (21-32) mmol/L Anion Gap (3-11) BUN (7-18) mg/dl Creatinine (0.6-1.2) mg/dl Est Cr Clr Drug Dosing ml/min Est GFR ( Amer) ml/min Est GFR (Non-Af Amer) ml/min BUN/Creatinine Ratio (10-20) Glucose (70-99) mg/dl POC Glucose (70-99) mg/dl Lactate 1.1 (0.4-2.0) mmol/L Calcium (8.5-10.1) mg/dl Magnesium (1.8-2.4) mg/dl Total Bilirubin (0.2-1) mg/dl AST (15-37) U/L ALT (12-78) U/L Alkaline Phosphatase (45-117) U/L Ammonia 41.0 H (11-32) umol/L Troponin I (0-0.045) ng/ml NT-Pro-B Natriuret Pep (0-900) pg/ml Total Protein (6.4-8.2) gm/dl Albumin (3.4-5.0) gm/dl Globulin (2.5-4.0) gm/dl Albumin/Globulin Ratio (0.9-2) Procalcitonin 0.13 (0-0.5) ng/ml Ethyl Alcohol mg/dL (0-3) mg/dl COVID-19 Eval Order SARS-CoV-2 (PCR) (Negative) Blood Type Antibody Screen 12/14/20 12/14/20 12/14/20 Range/Units 11:53 11:53 13:09 WBC (4.8-10.8) K/uL RBC (4.2-5.4) M/uL Hgb (12.0-16.0) g/dL Hct (37-47) % MCV (80-100) fL MCH (25-34) pg MCHC (32-36) g/dL RDW Std Deviation (36.4-46.3) fL RDW Coeff of Mari (11.5-14.5) % Plt Count (130-400) K/uL MPV (7.4-10.4) fL Immature Gran % (Auto) % Neut % (Auto) % Lymph % (Auto) % [place] % (Auto) % Eos % (Auto) % Baso % (Auto) % Neut # (Auto) (1.4-6.5) K/uL Lymph # (Auto) (1.2-3.4) K/uL [place] # (Auto) (0.11-0.59) K/uL Eos # (Auto) (0-0.5) K/uL Baso # (Auto) (0-0.2) K/uL Immature Gran # (Auto) (0.00-0.02) K/uL Anisocytosis Macrocytosis Echinocytes PT (9.0-12.0) Seconds INR (0.9-1.1) APTT (21.0-31.0) Seconds PTT Ratio Sodium (136-145) mmol/L Potassium (3.5-5.1) mmol/L Chloride (98-107) mmol/L Carbon Dioxide (21-32) mmol/L Anion Gap (3-11) BUN (7-18) mg/dl Creatinine (0.6-1.2) mg/dl Est Cr Clr Drug Dosing ml/min Est GFR ( Amer) ml/min Est GFR (Non-Af Amer) ml/min BUN/Creatinine Ratio (10-20) Glucose (70-99) mg/dl POC Glucose 57 L* (70-99) mg/dl Lactate (0.4-2.0) mmol/L Calcium (8.5-10.1) mg/dl Magnesium (1.8-2.4) mg/dl Total Bilirubin (0.2-1) mg/dl AST (15-37) U/L ALT (12-78) U/L Alkaline Phosphatase (45-117) U/L Ammonia (11-32) umol/L Troponin I (0-0.045) ng/ml NT-Pro-B Natriuret Pep 306 (0-900) pg/ml Total Protein (6.4-8.2) gm/dl Albumin (3.4-5.0) gm/dl Globulin (2.5-4.0) gm/dl Albumin/Globulin Ratio (0.9-2) Procalcitonin (0-0.5) ng/ml Ethyl Alcohol mg/dL < 3.0 (0-3) mg/dl COVID-19 Eval Order SARS-CoV-2 (PCR) (Negative) Blood Type Antibody Screen 12/14/20 12/14/20 Range/Units 13:25 14:13 WBC (4.8-10.8) K/uL RBC (4.2-5.4) M/uL Hgb (12.0-16.0) g/dL Hct (37-47) % MCV (80-100) fL MCH (25-34) pg MCHC (32-36) g/dL RDW Std Deviation (36.4-46.3) fL RDW Coeff of Mari (11.5-14.5) % Plt Count (130-400) K/uL MPV (7.4-10.4) fL Immature Gran % (Auto) % Neut % (Auto) % Lymph % (Auto) % [place] % (Auto) % Eos % (Auto) % Baso % (Auto) % Neut # (Auto) (1.4-6.5) K/uL Lymph # (Auto) (1.2-3.4) K/uL [place] # (Auto) (0.11-0.59) K/uL Eos # (Auto) (0-0.5) K/uL Baso # (Auto) (0-0.2) K/uL Immature Gran # (Auto) (0.00-0.02) K/uL Anisocytosis Macrocytosis Echinocytes PT (9.0-12.0) Seconds INR (0.9-1.1) APTT (21.0-31.0) Seconds PTT Ratio Sodium (136-145) mmol/L Potassium (3.5-5.1) mmol/L Chloride (98-107) mmol/L Carbon Dioxide (21-32) mmol/L Anion Gap (3-11) BUN (7-18) mg/dl Creatinine (0.6-1.2) mg/dl Est Cr Clr Drug Dosing ml/min Est GFR ( Amer) ml/min Est GFR (Non-Af Amer) ml/min BUN/Creatinine Ratio (10-20) Glucose (70-99) mg/dl POC Glucose 51 L* (70-99) mg/dl Lactate (0.4-2.0) mmol/L Calcium (8.5-10.1) mg/dl Magnesium (1.8-2.4) mg/dl Total Bilirubin (0.2-1) mg/dl AST (15-37) U/L ALT (12-78) U/L Alkaline Phosphatase (45-117) U/L Ammonia (11-32) umol/L Troponin I (0-0.045) ng/ml NT-Pro-B Natriuret Pep (0-900) pg/ml Total Protein (6.4-8.2) gm/dl Albumin (3.4-5.0) gm/dl Globulin (2.5-4.0) gm/dl Albumin/Globulin Ratio (0.9-2) Procalcitonin (0-0.5) ng/ml Ethyl Alcohol mg/dL (0-3) mg/dl COVID-19 Eval Order SARS-CoV-2 (PCR) (Negative) Blood Type A Positive Antibody Screen NEGATIVE Imaging Data Attestation: I personally reviewed and interpreted this imaging study as follows: My Impression: Chest x-raycardiomegaly with some possible CHF Radiologist's Impression: Chest X-Ray 12/14/20 11:05 SINGLE VIEW CHEST CLINICAL HISTORY: Sepsis. FINDINGS: 12/01/2020 2 AP, portable, upright chest radiographs are compared to study dated 12/01/2020. Correlation is made with chest CT dated 10/21/2016. The examination is degraded by portable technique, large body habitus, apical lordotic positioning, and patient rotation. The heart is enlarged. There is pulmonary vascular congestion. Airspace opacities are seen bilaterally, most confluent at the right lung base. No large pleural effusion or pneumothorax is s een. The skeletal structures are osteopenic. The bony thorax is grossly intact. IMPRESSION: 1. Cardiomegaly with evidence of congestive failure. 2. Bilateral airspace opacities could represent pulmonary edema and/or an inf ectious/inflammatory pneumonitis. Clinical correlation will be required and radiographic follow-up to resolution is recommended. ACT 112: Negative or not required by law. Electronically signed by: Juan Doarn M.D. 12/14/2020 12:35 PM Abdomen/Pelvis CT 12/14/20 11:09 CT SCAN OF THE ABDOMEN AND PELVIS WITHOUT IV CONTRAST CLINICAL HISTORY: Change in mental status. Hypotension. COMPARISON STUDY: Prior abdominal CT scans, most recently dated 11/09/2020. TECHNIQUE: CT scan of the abdomen and pelvis is performed from the lung bases to the proximal femora. Images are reviewed in the axial, sagittal, and coronal planes. IV contrast was not administered for this examination. Note that the examination was performed in significantly suboptimal fashion without oral and IV contrast. The examination is also degraded by large body habitus and severe streak artifact from the patient's body wall abutting the CT gantry. There is mild motion artifact. A dose lowering technique was utilized adhering to the principles of ALARA. CT DOSE: 3168.30 mGy.cm FINDINGS: Lung bases: The heart is normal in size and without pericardial effusion. There are calcifications of the coronary arteries and mitral annulus. A small hiatal hernia is noted. Patchy ground glass opacities are seen at both lung bases, right greater than left. Intralobular septal thickening is noted. Liver: The unenhanced liver is cirrhotic in morphology and heterogeneous in attenuation. There is nodularity of the surface contour and hypertrophy of the left lobe. There is no intrahepatic biliary ductal dilatation. Gallbladder: Surgically absent noting clips in the gallbladder fossa. Spleen: The spleen is enlarged measuring 14.7 cm in length. There are perisplenic varices. Pancreas: The unenhanced pancreas is atrophic and grossly unremarkable. Adrenal glands: Unremarkable. Kidneys: The unenhanced kidneys are atrophic and without hydronephrosis. A 4 mm nonobstructing calculus is noted in the right kidney. No left renal calculi are identified and there is no ureteral stone. There is no evidence of contour deforming renal mass lesion. Abdominal vasculature: The abdominal aorta is normal in course and caliber noting moderate to advanced atherosclerotic calcification. Bowel: There is no bowel obstruction. Moderate fecal retention is noted throughout the colon. There is mild colonic diverticulosis without CT evidence of acute diverticulitis. Note that portions of the left colon cannot be evaluated due to severe streak artifact. The appendix is surgically absent. Peritoneum: There is trace perihepatic ascites. No intraperitoneal free air is seen. Lymphadenopathy: Mildly enlarged retroperitoneal and iliac chain lymph nodes are similar to previous. Retroperitoneal nodes measure up to 15 mm in short axis enlarged upper abdominal nodes are nonspecific and likely related to chronic liver disease. Pelvic viscera: The bladder is normal as visualized. The uterus is surgically absent. No adnexal lesion is seen. Skeletal structures: No lytic or blastic lesions are seen. Soft tissues: The skeletal structures are heterogeneously osteopenic. There is moderate to advanced and the sacral spondylosis. A subacute compression/bursal fracture of L1 with minimally retropulsed fragments is unchanged. There is diffuse body wall edema. IMPRESSION: 1. Suboptimal examination without oral and IV contrast. There is also severe streak artifact and mild motion. 2. There are no acute infectious or inflammatory findings in the abdomen or pelvis. 3. Ground glass opacities and intralobular septal thickening are noted at the lung bases. This could represent congestive failure with pulmonary edema and/or an infectious/inflammatory pneumonitis. Clinical correlation required. 4. Cirrhotic liver morphology. 5. Splenomegaly, perisplenic varices, and trace perihepatic ascites indicate portal hypertension. 6. A subacute burst fracture of L1 with mildly retropulsed fragments is similar to previous. 7. Right-sided nephrolithiasis. 8. Body wall edema. 9. Mildly enlarged retroperitoneal and iliac chain lymph nodes are nonspecific and similar to previous. 10. Additional findings as above. ACT 112: Negative or not required by law. Electronically signed by: Juan Doran M.D. 12/14/2020 1:[address] 12/14/20 11:09 CT SCAN OF THE BRAIN WITHOUT IV CONTRAST CLINICAL HISTORY: Change in mental status. COMPARISON STUDY: Multiple prior CT scans of the brain, most recently dated 11/09/2020. TECHNIQUE: Unenhanced axial CT scan of the brain is performed from the vertex to the skull base. A dose lowering technique was utilized adhering to the principles of ALARA. FINDINGS: Brain parenchyma: The brain parenchyma is normal in appearance. There is no hemorrhage, mass effect, or evidence of acute territorial ischemia by CT criteria. Becker-white matter differentiation is preserved. No extra-axial fluid collection is seen. Ventricles, sulci, cisterns: Normal in configuration. Intracranial vasculature: There is atherosclerotic calcification of the cavernous carotid and vertebral arteries. Calvarium: Unremarkable. Sinuses and mastoids: There is evidence of previous paranasal sinus surgery. The paranasal sinuses are clear. The mastoid air cells are well pneumatized. Orbits: The bony orbits are grossly intact. There is mild bilateral proptosis. IMPRESSION: No acute intracranial abnormality. ACT 112: Negative or not required by law. Electronically signed by: Juan Doran M.D. 12/14/2020 1:17 PM ECG Data Attestation: I personally reviewed and interpreted this ECG as follows: Indication: + altered mental status Rate (beats per minute): 45 Rhythm: + sinus bradycardia ECG Intervals/blocks: + Normal QRS and + Normal QT ECG [place]: + Normal ECG ST segments: + Normal ST segments ECG Findings: no PACs or no PVCs Comparison ECG Date: from (11/10/20) Change: the following changes noted (Rate has decreased) MDM Narrative This patient comes in after being found hypoglycemic and altered compared to her baseline. The hypoglycemia has improved but she still seems very sleepy I reviewed her record she has similar admission last month. There is concern for sepsis and GI bleed this could be related to her hepatic encephalopathy she could be related to dehydration or metabolic derangement. Her pressure is on the low side initially I did order fluid bolus as well as blood cultures and multiple blood testing. I also ordered a CAT scan of the head and neck and Covid testing. CAT scan of the head and neck were unremarkable. She did respond to IV fluids and her pressure came up and her pulse came up as well. She is much more awake. Her ammonia is also elevated at 40 which could explain some of this. She has no white count or fever to suggest infection. Her lactic acid is also not elevated. Her hemoglobin is in the high eight range but she denies that she has had any blood or melena stool she does have a history of GI bleed. She was typed and screened. She will need to be admitted for further treatment and evaluation. Continous cardiac monitoring: Orders placed in EMR for continuous cardiac monitoring. 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
[2020-12-14 12:16] LABS: Basophils # (auto) 0.02 K/uL (0-0.2); Basophils % (auto) 0.3 %; Eosinophils # (auto) 0.15 K/uL (0-0.5); Eosinophils % (auto) 1.9 %; Hematocrit (blood only) 27.5 % (37-47); Hemoglobin 8.9 g/dL (12.0-16.0); Immature Granulocytes # (auto) 0.03 K/uL (0.00-0.02); Immature Granulocytes % (auto) 0.4 %; Lymphocytes % (auto) 24.7 %; Mean Corpuscular Hemoglobin 36.5 pg (25-34); Mean Corpuscular Hgb Conc 32.4 g/dL (32-36); Mean Corpuscular Volume 112.7 fL (80-100); Mean Platelet Volume 9.4 fL (7.4-10.4); Monocytes # (auto) 0.79 K/uL (0.11-0.59); Monocytes % (auto) 10.3 %; Neutrophils # (auto) 4.81 K/uL (1.4-6.5); Neutrophils % (auto) 62.4 %; Platelet Count 113 K/uL (130-400); RDW Coefficient of Variation 16.8 % (11.5-14.5); RDW Standard Deviation 69.2 fL (36.4-46.3); Red Blood Count 2.44 M/uL (4.2-5.4)
[2020-12-14 12:22] LABS: INR 1.3 (0.9-1.1); Partial Thromboplastin Ratio 1.1; Partial Thromboplastin Time 28.2 Seconds (21.0-31.0); Prothrombin Time 12.7 Seconds (9.0-12.0)
[2020-12-14 12:30] LABS: Alanine Aminotransferase 21 U/L (12-78); Albumin Level 1.9 gm/dl (3.4-5.0); Aspartate Aminotransferase 34 U/L (15-37); BUN Creatinine Ratio 10.5 (10-20); Blood Urea Nitrogen 9 mg/dl (7-18); Calcium 7.5 mg/dl (8.5-10.1); Carbon Dioxide 28 mmol/L (21-32); Chloride 111 mmol/L (98-107); Creatinine Clr Calc Pharmacy 112.8 ml/min; Est GFR (African American) 82.8 ml/min; Est GFR (Non-African American) 71.5 ml/min; Glucose 62 mg/dl (70-99); Magnesium 1.6 mg/dl (1.8-2.4); Potassium 3.1 mmol/L (3.5-5.1); Sodium 144 mmol/L (136-145)
[2020-12-14] MEDS ORDERED: MAGNESIUM SULFATE / D5W 1 GM/100 ML BAG IV STA (12:33)
[2020-12-14 12:35] LABS: Albumin Globulin Ratio 0.5 (0.9-2); Alkaline Phosphatase 174 U/L (45-117); Anisocytosis Present; Bilirubin,Total 1.5 mg/dl (0.2-1); Echinocytes 1+; Globulin 3.5 gm/dl (2.5-4.0); Macrocytosis Present; Total Protein 5.4 gm/dl (6.4-8.2); Troponin I < 0.015 ng/ml (0-0.045)
--- NOTE | 2020-12-14 12:37 | XRay Report ---
SINGLE VIEW CHEST CLINICAL HISTORY: Sepsis. FINDINGS: 12/01/2020 2 AP, portable, upright chest radiographs are compared to study dated 12/01/2020. Co rrelation is made with chest CT dated 10/21/2016. The examination is degraded by portable technique, l arge body habitus, apical lordotic positioning, and patient rotation. The heart is enlarged. There is pulmonary vascular congestion. Airspace opacities are seen bilaterally, most confluent at the right lung base. No large pleural effusion or pneumothorax is seen. The skeletal structures are osteopenic. The bony thorax is grossly intact. IMPRESSION: 1. Cardiomegaly with evidence of congestive failure. 2. Bilateral airspace opacities could represent pulmonary edema and/or an infectious/inflammatory pne umonitis. Clinical correlation will be required and radiographic follow-up to resolution is recommend ed. ACT 112: Negative or not required by law. Electronically signed by: Juan Doran M.D. 12/14/2020 12:35 PM
[2020-12-14] MEDS ORDERED: DEXTROSE 10% 1,000 ML IV SCH (12:45)
--- NOTE | 2020-12-14 13:19 | CT Scan Report ---
CT SCAN OF THE BRAIN WITHOUT IV CONTRAST CLINICAL HISTORY: Change in mental status. COMPARISON STUDY: Multiple prior CT scans of the brain, most recently dated 11/09/2020. TECHNIQUE: Unenhanced axial CT scan of the brain is performed from the vertex to the skull base. A d ose lowering technique was utilized adhering to the principles of ALARA. FINDINGS: Brain parenchyma: The brain parenchyma is normal in appearance. There is no hemorrhage, mass effect, or evidence of acute territorial ischemia by CT criteria. Becker-white matter differentiation is preser valente. No extra-axial fluid collection is seen. Ventricles, sulci, cisterns: Normal in configuration. Intracranial vasculature: There is atherosclerotic calcification of the cavernous carotid and vertebr al arteries. Calvarium: Unremarkable. Sinuses and mastoids: There is evidence of previous paranasal sinus surgery. The paranasal sinuses ar e clear. The mastoid air cells are well pneumatized. Orbits: The bony orbits are grossly intact. There is mild bilateral proptosis. IMPRESSION: No acute intracranial abnormality. ACT 112: Negative or not required by law. Electronically signed by: Juan Doran M.D. 12/14/2020 1:17 PM
--- NOTE | 2020-12-14 13:36 | CT Scan Report ---
CT SCAN OF THE ABDOMEN AND PELVIS WITHOUT IV CONTRAST CLINICAL HISTORY: Change in mental status. Hypotension. COMPARISON STUDY: Prior abdominal CT scans, most recently dated 11/09/2020. TECHNIQUE: CT scan of the abdomen and pelvis is performed from the lung bases to the proximal femora. Images are reviewed in the axial, sagittal, and coronal planes. IV contrast was not administered for this examination. Note that the examination was performed in significantly suboptimal fashion withou t oral and IV contrast. The examination is also degraded by large body habitus and severe streak burke fact from the patient's body wall abutting the CT gantry. There is mild motion artifact. A dose lower ing technique was utilized adhering to the principles of ALARA. CT DOSE: 3168.30 mGy.cm FINDINGS: Lung bases: The heart is normal in size and without pericardial effusion. There are calcifications of the coronary arteries and mitral annulus. A small hiatal hernia is noted. Patchy ground glass opacit ies are seen at both lung bases, right greater than left. Intralobular septal thickening is noted. Liver: The unenhanced liver is cirrhotic in morphology and heterogeneous in attenuation. There is nod ularity of the surface contour and hypertrophy of the left lobe. There is no intrahepatic biliary ray edie dilatation. Gallbladder: Surgically absent noting clips in the gallbladder fossa. Spleen: The spleen is enlarged measuring 14.7 cm in length. There are perisplenic varices. Pancreas: The unenhanced pancreas is atrophic and grossly unremarkable. Adrenal glands: Unremarkable. Kidneys: The unenhanced kidneys are atrophic and without hydronephrosis. A 4 mm nonobstructing calcul us is noted in the right kidney. No left renal calculi are identified and there is no ureteral stone. There is no evidence of contour deforming renal mass lesion. Abdominal vasculature: The abdominal aorta is normal in course and caliber noting moderate to advance d atherosclerotic calcification. Bowel: There is no bowel obstruction. Moderate fecal retention is noted throughout the colon. There i s mild colonic diverticulosis without CT evidence of acute diverticulitis. Note that portions of the left colon cannot be evaluated due to severe streak artifact. The appendix is surgically absent. Peritoneum: There is trace perihepatic ascites. No intraperitoneal free air is seen. Lymphadenopathy: Mildly enlarged retroperitoneal and iliac chain lymph nodes are similar to previous. Retroperitoneal nodes measure up to 15 mm in short axis enlarged upper abdominal nodes are nonspecif ic and likely related to chronic liver disease. Pelvic viscera: The bladder is normal as visualized. The uterus is surgically absent. No adnexal lesi on is seen. Skeletal structures: No lytic or blastic lesions are seen. Soft tissues: The skeletal structures are heterogeneously osteopenic. There is moderate to advanced a nd the sacral spondylosis. A subacute compression/bursal fracture of L1 with minimally retropulsed fr agments is unchanged. There is diffuse body wall edema. IMPRESSION: 1. Suboptimal examination without oral and IV contrast. There is also severe streak artifact and mild motion. 2. There are no acute infectious or inflammatory findings in the abdomen or pelvis. 3. Ground glass opacities and intralobular septal thickening are noted at the lung bases. This could represent congestive failure with pulmonary edema and/or an infectious/inflammatory pneumonitis. Clin ical correlation required. 4. Cirrhotic liver morphology. 5. Splenomegaly, perisplenic varices, and trace perihepatic ascites indicate portal hypertension. 6. A subacute burst fracture of L1 with mildly retropulsed fragments is similar to previous. 7. Right-sided nephrolithiasis. 8. Body wall edema. 9. Mildly enlarged retroperitoneal and iliac chain lymph nodes are nonspecific and similar to previou s. 10. Additional findings as above. ACT 112: Negative or not required by law. Electronically signed by: Juan Doran M.D. 12/14/2020 1:34 PM
--- NOTE | 2020-12-14 14:19 | History & Physical Report ---
Date of Service December 14, 2020 Assessment & Plan (1) Acute metabolic encephalopathy: Plan: - Admit to med surg with tele - Likely multifactorial:Medications, Hypoglycemia, Hepatic Encephalopathy - CT head: No acute intracranial findings. Patient known for noncompliance with regular meals and mistakenly taking her previous dose of Insulin (And not the dose recommended from recent discharge) - slightly elevated ammonia levels, 41 on admission, administer lactulose po now (nursing reports she was able to drink some orange juice), enema if unable to take PO - Continue lactulose, rifaximin - Monitor for hypoglycemia - initially was 62, improved with IV dextrose -Obtain blood cultures, urine culture to rule out other infectious source, afebrile currently -Checking drug tox -Checking ABG, for now patient has O2 sats at 94% on room air, CO2 was 28 without anion gap, trial CPAP while waiting for ABG, does not appear that she is on baseline supplemental O2 -Concerned that she has missed Lasix with CXR showing pulmonary edema, will give IV Lasix 20 mg now, insert Graham, strict I's and O's, and potentially give additional dose this evening pending outs. (2) DM2 (diabetes mellitus, type 2): Plan: -Last A1c was 5.6 on 11/05/2019 -ISS with Accu-Cheks ACHS -Presented with hypoglycemia with glucose in the 60s, no noncompliance of medication, discussed the importance of eating routine/regular meals, may need to reduce insulin 15 units 3 times daily since this is the second time she has been admitted for such, Trulicity 1.5 mg weekly, Lantus 60 units daily will be reduced in half for now to 30 mg HS with hypoglycemic episode -Allow diet once encephalopathy improves (3) Hepatic encephalopathy: Plan: -Ammonia elevated as above, p.o. 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 Will Hemoccult all stools -Continue lactulose and Xifaxan, zinc, spironolactone, lasix -Avoid narcotics so as to limit confusion -Avoid NSAIDs (5) Paroxysmal A-fib: Plan: -Continue Xarelto, carvedilol 12.5 twice daily, lasix 20 mg TID po -ER reports that she was slightly bradycardic upon arrival to the ER however this improved without any pharmacological intervention and her on telemetry -Check 2D echo with pulmonary edema on CXR (6) COPD, group D, by GOLD 2017 classification: Plan: -Uses albuterol inhaler as needed (7) Hypothyroid: Plan: -Continue levothyroxine (8) Morbid obesity: Plan: -BMI of 53.6, diet and exercise to be encouraged, heart healthy/diabetic diet during hospitalization -Vascular access difficult due to body habitus, concern if patient requires multiple readmissions that she would benefit from more permanent line, midline placed during this admission with fluoroscopy (9) RIMA (obstructive sleep apnea): Plan: -CPAP at bedtime, will trial now to see if patient mental status improves, pending ABG DVT PPx: - teds, scds CODE: Full code Dispo: From home, likely to remain in the hospital x 2 days History of Present Illness Chief Complaint: AMS Primary Care Provider: Dewey Mcfadden DO This is a 54 yo F with PMHx of chronic diastolic heart failure (EF 65 to 70%, TTE 2020), RIMA/CPAP noncompliance, 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 Patient presents today from home, due to increased confusion. She is unable to provide any review of systems due to encephalopathy. She is able to tell me she lives at home with Greg, boyfriend, but have lived together x25 years. There is no family at bedside. She denies any acute pain. Currently IV team is attempting to replace venous access as the line blew, after using fluoroscopy to place it initially. Recent admission November 032020 for hepatic encephalopathy and again from November 09- for acute metabolic encephalopathy which was multifactorial due to medication noncompliance, hypoglycemia, hepatic encephalopathy and melena in the setting of use of Xarelto, NSAIDs. Per outpatient records it does not appear that she has yet followed up with GI as an outpatient. She cannot tell me if she has been taking her medications, last dose of insulin or lactulose. Allergies Allergy/AdvReac Type Severity Reaction Status Date / Time Iodinated Contrast Media Allergy Intermediate hives-PT Verified 12/14/20 11:01 DENIES SEE NOTE adhesive Allergy Mild RED RASH Verified 12/14/20 11:01 CAUSED BY PAPER TAPE vancomycin AdvReac Severe renal Verified 12/14/20 11:01 failure, required dialysis x 3 MONTHS acetaminophen AdvReac Intermediate Liver Verified 12/14/20 11:01 problems. alprazolam AdvReac Intermediate MAKES Verified 12/14/20 11:01 LOOPY,DO AND SAY SILLY THINGS codeine AdvReac Intermediate UPSET Verified 12/14/20 11:01 STOMACH haloperidol AdvReac Intermediate nervous Verified 12/14/20 11:01 and anxious metformin AdvReac Intermediate HANDS FEET Verified 12/14/20 11:01 FACE NUMB methylparaben AdvReac Intermediate FLUID Verified 12/14/20 11:01 RETENTION morphine AdvReac Intermediate SWELLING Verified 12/14/20 11:01 LEGS AND FEET oxymorphone AdvReac Intermediate FLUID Verified 12/14/20 11:01 RETENTION pregabalin AdvReac Intermediate Aphasia/Speech Verified 12/14/20 11:01 impairments gabapentin AdvReac Mild Aphasia/Speech Verified 12/14/20 11:01 impairments Sulfa (Sulfonamide AdvReac Mild GI SYMPTOMS Verified 12/14/20 11:01 Antibiotics) Home Medications Medication Instructions Recorded Confirmed Type duloxetine 60 mg capsule,delayed 60 mg PO BID 03/12/19 12/14/20 History release (Cymbalta) insulin aspart U-100 100 unit/mL 15 unit SUBCUT TIDM 03/12/19 12/14/20 History (3 mL) subcutaneous pen (Novolog Flexpen U-100 Insulin aspart) rivaroxaban 20 mg tablet (Xarelto) 20 mg PO HS 03/12/19 12/14/20 History carvedilol 12.5 mg tablet (Coreg) 12.5 mg PO BID 03/21/19 12/14/20 History dulaglutide 1.5 mg/0.5 mL 1.5 mg SUBCUT WK 07/13/19 12/14/20 History subcutaneous pen injector (Trulicity) ferrous sulfate 325 mg (65 mg 325 mg PO QDB 08/01/19 12/14/20 History iron) tablet (Iron (ferrous sulfate)) pantoprazole 40 mg tablet,delayed 40 mg PO DAILYBB 08/01/19 12/14/20 History release (Protonix) rifaximin 550 mg tablet (Xifaxan) 550 mg PO BID #60 tab 08/15/19 12/14/20 Rx trazodone 50 mg tablet 50 mg PO HS 08/29/19 12/14/20 History famotidine 20 mg tablet (Pepcid) 20 mg PO BID 09/17/19 12/14/20 History magnesium chloride 64 mg 64 mg PO PM 10/05/19 12/14/20 History (magnesium chloride) tablet,delayed release (Mag 64) spironolactone 25 mg tablet 25 mg PO DAILY 08/22/20 12/14/20 History (Aldactone) baclofen 10 mg tablet 10 mg PO BID PRN #60 tab 11/11/20 12/14/20 Rx insulin glargine 100 unit/mL (3 60 unit SUBCUT DAILY #0 ml 11/11/20 12/14/20 Rx mL) subcutaneous pen (Basaglar KwikPen U-100 Insulin) albuterol sulfate 90 mcg/actuation 2 inha INH QID PRN 12/14/20 12/14/20 History aerosol inhaler (Ventolin HFA) furosemide 20 mg tablet (Lasix) 20 mg PO TID 12/14/20 12/14/20 History lactulose 10 gram/15 mL oral 30 ml PO QID 12/14/20 12/14/20 History solution (Constulose) levothyroxine 200 mcg tablet 200 mcg PO DAILYBB 12/14/20 12/14/20 History (Synthroid) oxycodone 15 mg tablet (Roxicodone) 15 mg PO TID PRN 12/14/20 12/14/20 History prochlorperazine maleate 5 mg 5 mg PO BID PRN 12/14/20 12/14/20 History tablet (Compazine) potassium chloride 20 mEq 20 meq PO DAILY #30 tab 12/16/20 Rx tablet,extended release(part/cryst) Past Med/Surg History Medical History Abdominal wall cellulitis Acute hepatic encephalopathy Bowel obstruction Cauda equina compression Cellulitis and abscess of trunk (Unknown) Chronic low back pain COPD, group D, by GOLD 2017 classification Deep vein blood clot of left lower extremity RIGHT AND LEFT LEG AND THEN MOVED LUNG - 2002 Diabetes Diabetic neuropathy (01/04/11) Fracture of fourth metatarsal bone of left foot Gastritis Hyperammonemia Hypokalemia Hypomagnesemia Incarcerated ventral hernia Kidney stone HX OF AND HAD LITHOTRIPSY RIMA (obstructive sleep apnea) HX OF AND NO CURRENT PROBLEM Paroxysmal A-fib 2013 on Xarelto Pyelonephritis Rectal bleeding Septic shock Severe sepsis Splenomegaly, not elsewhere classified Supratherapeutic INR UTI (urinary tract infection) Surgical History History of appendectomy History of arthroplasty of right knee Hx of lithotripsy Hx of ventral hernia repair S/P cholecystectomy S/P sinus surgery S/P MARLEE (total abdominal hysterectomy) Family History Father Cancer Liver Brother Kidney disease Renal failure Cirrhosis Brother Cirrhosis Other Family history non-contributory Social History Smoking Status: Current every day smoker Tobacco Type: Cigarettes Cigarettes Per Day: 1/2 PPD; Second Hand Exposure: Yes; Hx Alcohol Use: No Hx Substance Use: No Preferred Language: Slovak Communication Ability: Effective Grain Loader Required: No Beliefs That Will Affect Care: None marital status: Current Living Situation: Significant Other Current Living Situation Comment: per ER documentation, pt resides with significant other current occupational status: disabled Other Information That Helps Us Care for You: No Feels Safe at Home: Yes Safety Concerns: Feels Safe At This Time Assistive Devices: Denture - Upper and Denture - Lower Assistive Devices Comment: doesn't wear dentures, claims they don't "fit right" Review of Systems Review of Systems: Unobtainable due to cognitive status Physical Exam Physical Exam: General: awakens to verbal stimuli, unable to really participate in conversation due to confusion, morbidly obese with BMI of 53.7 Head: Normocephalic, atraumatic ENT: PERRL, EOMI, no pharyngeal exudate, mucous membranes appear slightly dry Chest: Clear to auscultation, on room air, 94% sats, no adventitious breath sounds Cardiac: Regular rate and rhythm, no murmur, unable to assess for JVD due to body habitus, normal peripheral pulses, good capillary refill Abdominal: + Morbidly obese, NABS x 4 quadrants, soft, nondistended, nontender to palpation, no rebound or guarding Extremities: Normal inspection, no peripheral edema or erythema, calfs nontender to palpation Neuro: Awakens to verbal stimuli, can tell me she lives at home with Greg her boyfriend x25 years, but unable to participate in any other conversation, strength was not assessed due to confusion, no gross motor deficits she is moving her extremity bed, speech is clear, no peripheral sensory deficits Results & Data Results & Data ([facility]) Vital Signs (Past 12 Hours) Vital Signs Temp Pulse Pulse Resp BP BP Pulse Ox 12/14/20 12:03 55 L 16 122/72 98 12/14/20 11:05 45 L 16 94 12/14/20 10:46 44 L 16 90/61 L 12/14/20 10:38 44 L 14 81/44 L 12/14/20 10:10 36.1 C L 45 L 16 96/61 L 94 Diagnostic Findings Chest X-Ray 12/14/20 11:05 SINGLE VIEW CHEST CLINICAL HISTORY: Sepsis. FINDINGS: 12/01/2020 2 AP, portable, upright chest radiographs are compared to study dated 12/01/2020. Correlation is made with chest CT dated 10/21/2016. The examination is degraded by portable technique, large body habitus, apical lordotic positioning, and patient rotation. The heart is enlarged. There is pulmonary vascular congestion. Airspace opacities are seen bilaterally, most confluent at the right lung base. No large pleural effusion or pneumothorax is seen. The skeletal structures are osteopenic. The bony thorax is grossly intact. IMPRESSION: 1. Cardiomegaly with evidence of congestive failure. 2. Bilateral airspace opacities could represent pulmonary edema and/or an infectious/inflammatory pneumonitis. Clinical correlation will be required and radiographic follow-up to resolution is recommended. ACT 112: Negative or not required by law. Electronically signed by: Juan Doran M.D. 12/14/2020 12:35 PM Abdomen/Pelvis CT 12/14/20 11:09 CT SCAN OF THE ABDOMEN AND PELVIS WITHOUT IV CONTRAST CLINICAL HISTORY: Change in mental status. Hypotension. COMPARISON STUDY: Prior abdominal CT scans, most recently dated 11/09/2020. TECHNIQUE: CT scan of the abdomen and pelvis is performed from the lung bases to the proximal femora. Images are reviewed in the axial, sagittal, and coronal planes. IV contrast was not administered for this examination. Note that the examination was performed in significantly suboptimal fashion without oral and IV contrast. The examination is also degraded by large body habitus and severe streak artifact from the patient's body wall abutting the CT gantry. There is mild motion artifact. A dose lowering technique was utilized adhering to the principles of ALARA. CT DOSE: 3168.30 mGy.cm FINDINGS: Lung bases: The heart is normal in size and without pericardial effusion. There are calcifications of the coronary arteries and mitral annulus. A small hiatal hernia is noted. Patchy ground glass opacities are seen at both lung bases, right greater than left. Intralobular septal thickening is noted. Liver: The unenhanced liver is cirrhotic in morphology and heterogeneous in attenuation. There is nodularity of the surface contour and hypertrophy of the left lobe. There is no intrahepatic biliary ductal dilatation. Gallbladder: Surgically absent noting clips in the gallbladder fossa. Spleen: The spleen is enlarged measuring 14.7 cm in length. There are perisplenic varices. Pancreas: The unenhanced pancreas is atrophic and grossly unremarkable. Adrenal glands: Unremarkable. Kidneys: The unenhanced kidneys are atrophic and without hydronephrosis. A 4 mm nonobstructing calculus is noted in the right kidney. No left renal calculi are identified and there is no ureteral stone. There is no evidence of contour deforming renal mass lesion. Abdominal vasculature: The abdominal aorta is normal in course and caliber noting moderate to advanced atherosclerotic calcification. Bowel: There is no bowel obstruction. Moderate fecal retention is noted throughout the colon. There is mild colonic diverticulosis without CT evidence of acute diverticulitis. Note that portions of the left colon cannot be evaluated due to severe streak artifact. The appendix is surgically absent. Peritoneum: There is trace perihepatic ascites. No intraperitoneal free air is seen. Lymphadenopathy: Mildly enlarged retroperitoneal and iliac chain lymph nodes are similar to previous. Retroperitoneal nodes measure up to 15 mm in short axis enlarged upper abdominal nodes are nonspecific and likely related to chronic liver disease. Pelvic viscera: The bladder is normal as visualized. The uterus is surgically absent. No adnexal lesion is seen. Skeletal structures: No lytic or blastic lesions are seen. Soft tissues: The skeletal structures are heterogeneously osteopenic. There is moderate to advanced and the sacral spondylosis. A subacute compression/bursal fracture of L1 with minimally retropulsed fragments is unchanged. There is diffuse body wall edema. IMPRESSION: 1. Suboptimal examination without oral and IV contrast. There is also severe streak artifact and mild motion. 2. There are no acute infectious or inflammatory findings in the abdomen or pelvis. 3. Ground glass opacities and intralobular septal thickening are noted at the lung bases. This could represent congestive failure with pulmonary edema and/or an infectious/inflammatory pneumonitis. Clinical correlation required. 4. Cirrhotic liver morphology. 5. Splenomegaly, perisplenic varices, and trace perihepatic ascites indicate portal hypertension. 6. A subacute burst fracture of L1 with mildly retropulsed fragments is similar to previous. 7. Right-sided nephrolithiasis. 8. Body wall edema. 9. Mildly enlarged retroperitoneal and iliac chain lymph nodes are nonspecific and similar to previous. 10. Additional findings as above. ACT 112: Negative or not required by law. Electronically signed by: Juan Doran M.D. 12/14/2020 1:[address] 12/14/20 11:09 CT SCAN OF THE BRAIN WITHOUT IV CONTRAST CLINICAL HISTORY: Change in mental status. COMPARISON STUDY: Multiple prior CT scans of the brain, most recently dated 11/09/2020. TECHNIQUE: Unenhanced axial CT scan of the brain is performed from the vertex to the skull base. A dose lowering technique was utilized adhering to the principles of ALARA. FINDINGS: Brain parenchyma: The brain parenchyma is normal in appearance. There is no hemorrhage, mass effect, or evidence of acute territorial ischemia by CT criteria. Becker-white matter differentiation is preserved. No extra-axial fluid collection is seen. Ventricles, sulci, cisterns: Normal in configuration. Intracranial vasculature: There is atherosclerotic calcification of the cavernous carotid and vertebral arteries. Calvarium: Unremarkable. Sinuses and mastoids: There is evidence of previous paranasal sinus surgery. The paranasal sinuses are clear. The mastoid air cells are well pneumatized. Orbits: The bony orbits are grossly intact. There is mild bilateral proptosis. IMPRESSION: No acute intracranial abnormality. ACT 112: Negative or not required by law. Electronically signed by: Juan Doran M.D. 12/14/2020 1:17 PM Code Status & VTE Plan Code Status Full code-we will need to rediscuss with patient once confusion improves Supervising Physician Co-Signing Physician Notes Patient seen and examined by me, care coordinated with Ngozi Allen PA-C, please refer to her note above for further detail. Pt is a 54 yo F with PMHx of chronic diastolic heart failure (EF 65 to 70%, TTE 2020), RIMA/CPAP noncompliance, 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 Patient presents from home, due to increased confusion, found to be hypoglycemic. Recent admission November 032020 for hepatic encephalopathy and again from November 09- for acute metabolic encephalopathy which was multifactorial due to medication noncompliance, hypoglycemia, hepatic encephalopathy and melena in the setting of use of Xarelto, NSAIDs. Per outpatient records it does not appear that she has yet followed up with GI as an outpatient. In addition in the ED her hemoglobin found to be lower than her baseline, just above 8. Currently she is lying in bed, in no acute distress. Her mental status is much improved, she is alert oriented and she is answering my questions appropriately. She feels that something happened with her glucose level as when she checked several times it was low. Currently she is breathing on room air without difficulty and saturating well. She has decreased breath sounds. However no significant wheezing noted. heart sounds seems regular. Abdomen is obese, soft nontender. There is minimal lower extremity edema. Glycemic pharmacy contacted given patient's hypoglycemia. FOBT ordered given patient's anemia. GI consult placed for possible hepatic encephalopathy, given slightly elevated ammonia level, in addition to low hemoglobin. Not clear if patient took her home medications, including her furosemide, will give her IV Lasix now. Bethanie Bill MD
[2020-12-14] MEDS ORDERED: POTASSIUM CHLORIDE / WTR 10 MEQ/100 ML PLCT IV STA (14:30)
[2020-12-14] MEDS ORDERED: POTASSIUM CHLORIDE CRTAB 20 MEQ TABCR PO STA ×2 (14:30→22:35)
[2020-12-14] MEDS ORDERED: FUROSEMIDE 40 MG/4 ML VIAL IV STA (15:24)
[2020-12-14] MEDS ORDERED: LACTULOSE 200 GM, WATER, STERILE IRRIG 700 ML, BARCODE IDENTIFIER 1 EA PR ONE (15:33)
[2020-12-14] MEDS ORDERED: UNIT DOSE COMPOUND PR SCH (15:45)
[2020-12-14 16:11] LABS: Base Excess ABG 1.9 mEq/L (-9-1.8); HCO3 ABG 26 mmol/L (19-24); Oxygen Saturation ABG 95.7 % (90-95); PCO2 ABG 39 mmHg (35-46); PO2 ABG 74 mmHg (80-95); pH ABG 7.45 (7.35-7.45)
[2020-12-14 16:12] LABS: Allen Test Pos (Pos)
[2020-12-14 16:16] LABS: Appearance Urine Clear (Clear); Bacteria Urine Automated Negative (Negative); Blood Urine Negative (Negative); Color Urine Dark Yellow; Epithelial Cell Urine Auto >30 /lpf (0-5); Glucose Urine UA Negative (Negative); Ketones Urine Trace (Negative); Leukocyte Esterase Urine Trace (Negative); Nitrite Urine Negative (Negative); Protein Urine Negative (Negative); Urobilinogen Urine Negative (Negative)
[2020-12-14 16:27] LABS: Bilirubin Urine 1+ (Negative)
[2020-12-14 16:34] LABS: Amphetamines+Metham, Urine Neg (Neg); Barbiturates, Urine Neg (Neg); Benzodiazepine, Urine Neg (Neg); Cocaine, Urine Neg (Neg); MDMA (Ecstacy), Urine Neg (Neg); Methadone, Urine Neg (Neg); Opiate, Urine Pos (Neg); Phencyclidine, Urine Neg (Neg)
[2020-12-14] MEDS: INSULIN ASPART 100 UNITS/ML 3 ML PEN SC SCH ×2 (17:25→20:45)
[2020-12-14] MEDS ORDERED: PROCHLORPERAZINE MALEATE 5 MG TAB PO PRN (17:25)
[2020-12-14] MEDS ORDERED: CARBOHYDRATES FOR HYPOGLYCEMIA PO PRN (17:25)
[2020-12-14] MEDS ORDERED: GLUCOSE 10 TABS/TUBE PO PRN (17:25)
[2020-12-14] MEDS ORDERED: GLUCOSE 40% GEL 15 GM TUBE PO PRN (17:25)
[2020-12-14] MEDS ORDERED: ALBUTEROL HFA 8 GM INHALER INH PRN (17:25)
[2020-12-14] MEDS ORDERED: PHARMACY GLYCEMIC MGMT CONSULT PRN (17:25)
[2020-12-14] MEDS ORDERED: DEXTROSE 50% 50 ML SYRINGE IV PRN (17:25)
[2020-12-14] MEDS ORDERED: ONDANSETRON INJ 2 MG/ML 2 ML VIAL IV PRN (17:25)
[2020-12-14] MEDS ORDERED: GLUCAGON FOR INJ 1 MG VIAL SQ PRN (17:25)
[2020-12-14] MEDS ORDERED: LACTULOSE SYRUP 20 GM/30 ML UDC PO ONE (18:00)
[2020-12-14] MEDS: LACTULOSE SYRUP 30 GM/45 ML UDP PO SCH ×2 (18:11→20:16)
[2020-12-14] MEDS ORDERED: MICONAZOLE NITRATE POWDER 43 GM EXT PRN (18:56)
[2020-12-14] MEDS: carvediloL 12.5 MG TAB PO SCH (20:12)
[2020-12-14] MEDS: DULoxetine HCL 60 MG CAP PO SCH (20:13)
[2020-12-14] MEDS ORDERED: oxyCODONE HCL IR 5 MG TAB (IMMEDIATE RELEASE) PO STA (20:13)
[2020-12-14] MEDS: FAMOTIDINE 20 MG TAB PO SCH (20:13)
[2020-12-14] MEDS: FUROSEMIDE 20 MG TAB PO SCH (20:15)
[2020-12-14] MEDS: MAGNESIUM CHLORIDE 64MG DELAYED REL TAB PO SCH (20:16)
[2020-12-14] MEDS: RIVAROXABAN 20 MG TAB PO SCH (20:16)
[2020-12-14] MEDS: rifAXIMin 550 MG TABLET PO SCH (20:16)
[2020-12-14] MEDS: SPIRONOLACTONE 25 MG TAB PO SCH (20:17)
[2020-12-14] MEDS ORDERED: oxyCODONE HCL IR 5 MG TAB (IMMEDIATE RELEASE) PO PRN (22:32)
[2020-12-14] MEDS ORDERED: FUROSEMIDE 20 MG in SYRINGE 0 ML IV ONE (23:00)
[2020-12-15] MEDS ORDERED: oxyCODONE HCL IR 5 MG TAB (IMMEDIATE RELEASE) PO STA (01:34)
[2020-12-15] MEDS: LEVOTHYROXINE SODIUM 200 MCG TABLET PO SCH (06:31)
[2020-12-15] MEDS: oxyCODONE HCL IR 5 MG TAB (IMMEDIATE RELEASE) PO PRN ×3 (06:31→20:18)
[2020-12-15] MEDS: PANTOprazole 40 MG TAB PO SCH (06:31)
[2020-12-15 06:44] LABS: Hematocrit (blood only) 33.5 % (37-47); Mean Corpuscular Hemoglobin 36.5 pg (25-34); Mean Corpuscular Hgb Conc 32.8 g/dL (32-36); Mean Corpuscular Volume 111.3 fL (80-100); Platelet Count 109 K/uL (130-400); RDW Coefficient of Variation 16.7 % (11.5-14.5); RDW Standard Deviation 66.7 fL (36.4-46.3); Red Blood Count 3.01 M/uL (4.2-5.4); White Blood Count 9.39 K/uL (4.8-10.8)
[2020-12-15 07:10] LABS: BUN Creatinine Ratio 6.3 (10-20); Calcium 7.9 mg/dl (8.5-10.1); Creatinine Clr Calc Pharmacy 94.8 ml/min; Est GFR (African American) 67.2 ml/min; Magnesium 1.7 mg/dl (1.8-2.4); Potassium 3.2 mmol/L (3.5-5.1)
[2020-12-15 07:13] LABS: Albumin Globulin Ratio 0.6 (0.9-2); Globulin 3.3 gm/dl (2.5-4.0); Phosphorus 2.2 mg/dl (2.5-4.9); Total Protein 5.3 gm/dl (6.4-8.2)
[2020-12-15] MEDS: carvediloL 12.5 MG TAB PO SCH ×3 (07:53→20:19)
[2020-12-15] MEDS ORDERED: INSULIN GLARGINE SOLOSTAR 100 UNITS/ML 3 ML PEN SQ SCH (09:00)
[2020-12-15] MEDS: DULoxetine HCL 60 MG CAP PO SCH ×2 (09:10→20:19)
[2020-12-15] MEDS: FUROSEMIDE 20 MG TAB PO SCH ×3 (09:10→20:18)
[2020-12-15] MEDS: FAMOTIDINE 20 MG TAB PO SCH ×2 (09:10→20:19)
[2020-12-15] MEDS: FERROUS SULFATE 325 MG TAB PO SCH (09:11)
[2020-12-15] MEDS: SPIRONOLACTONE 25 MG TAB PO SCH ×2 (09:11→20:19)
[2020-12-15] MEDS: rifAXIMin 550 MG TABLET PO SCH ×2 (09:11→20:19)
[2020-12-15] MEDS: LACTULOSE SYRUP 30 GM/45 ML UDP PO SCH ×4 (09:12→20:18)
[2020-12-15] MEDS: INSULIN ASPART 100 UNITS/ML 3 ML PEN SC SCH ×4 (09:15→19:54)
[2020-12-15] MEDS: INSULIN GLARGINE SOLOSTAR 100 UNITS/ML 3 ML PEN SQ SCH (09:18)
--- NOTE | 2020-12-15 09:37 | Gastrointestinal Consultation ---
Date of Consultation December 15, 2020 Assessment & Plan (1) Acute hepatic encephalopathy: 54 year old female with history of medical noncompliance admitted w/ confusion, slightly elevated ammonia, hypoglycemia now awake, alert and oriented answering questions appropriately. MELD 13 Can follow infectious work up to include blood culture, urine culture, chest XR Lactulose 30 gm QID Xifaxin 550 mg BID Recall as needed.Thank you for allowing us to participate in the care of this patient. Please call with any acute changes, questions or concerns. Please see addendum below with additional recommendation from my supervising physician. History of Present Illness Reason for Consultation: confusion Requesting Physician: Landy Attending Physician: Obed Bill MD History of Present Illness 53 year old female w/ history of obesity, T2DM, dyslipidemia, hypothyroidism, COPD, RIMA noncompliant with CPAP, HTN, GERD, Bipolar I, and chronic drug dependence/narcotic use, Cirrhosis/MEEK admitted through the ED w/ confusion - GI asked to evaluate for confusion. Pt was seen and evaluated, chart reviewed. She is OOB on bedside commode. She is awake, alert and oriented to person, place and time. She offers no complaints this AM. Denies any abd pain, nausea, vomiting. denies black or bloody stools. Allergies Allergy/AdvReac Type Severity Reaction Status Date / Time Iodinated Contrast Media Allergy Intermediate hives-PT Verified 12/14/20 11:01 DENIES SEE NOTE adhesive Allergy Mild RED RASH Verified 12/14/20 11:01 CAUSED BY PAPER TAPE vancomycin AdvReac Severe renal Verified 12/14/20 11:01 failure, required dialysis x 3 MONTHS acetaminophen AdvReac Intermediate Liver Verified 12/14/20 11:01 problems. alprazolam AdvReac Intermediate MAKES Verified 12/14/20 11:01 LOOPY,DO AND SAY SILLY THINGS codeine AdvReac Intermediate UPSET Verified 12/14/20 11:01 STOMACH haloperidol AdvReac Intermediate nervous Verified 12/14/20 11:01 and anxious metformin AdvReac Intermediate HANDS FEET Verified 12/14/20 11:01 FACE NUMB methylparaben AdvReac Intermediate FLUID Verified 12/14/20 11:01 RETENTION morphine AdvReac Intermediate SWELLING Verified 12/14/20 11:01 LEGS AND FEET oxymorphone AdvReac Intermediate FLUID Verified 12/14/20 11:01 RETENTION pregabalin AdvReac Intermediate Aphasia/Speech Verified 12/14/20 11:01 impairments gabapentin AdvReac Mild Aphasia/Speech Verified 12/14/20 11:01 impairments Sulfa (Sulfonamide AdvReac Mild GI SYMPTOMS Verified 12/14/20 11:01 Antibiotics) Home Medications Medication Instructions Recorded Confirmed Type duloxetine 60 mg capsule,delayed 60 mg PO BID 03/12/19 12/14/20 History release (Cymbalta) insulin aspart U-100 100 unit/mL 15 unit SUBCUT TIDM 03/12/19 12/14/20 History (3 mL) subcutaneous pen (Novolog Flexpen U-100 Insulin aspart) rivaroxaban 20 mg tablet (Xarelto) 20 mg PO HS 03/12/19 12/14/20 History carvedilol 12.5 mg tablet (Coreg) 12.5 mg PO BID 03/21/19 12/14/20 History dulaglutide 1.5 mg/0.5 mL 1.5 mg SUBCUT WK 07/13/19 12/14/20 History subcutaneous pen injector (Trulicity) ferrous sulfate 325 mg (65 mg 325 mg PO QDB 08/01/19 12/14/20 History iron) tablet (Iron (ferrous sulfate)) pantoprazole 40 mg tablet,delayed 40 mg PO DAILYBB 08/01/19 12/14/20 History release (Protonix) rifaximin 550 mg tablet (Xifaxan) 550 mg PO BID #60 tab 08/15/19 12/14/20 Rx trazodone 50 mg tablet 50 mg PO HS 08/29/19 12/14/20 History famotidine 20 mg tablet (Pepcid) 20 mg PO BID 09/17/19 12/14/20 History magnesium chloride 64 mg 64 mg PO PM 10/05/19 12/14/20 History (magnesium chloride) tablet,delayed release (Mag 64) spironolactone 25 mg tablet 25 mg PO DAILY 08/22/20 12/14/20 History (Aldactone) baclofen 10 mg tablet 10 mg PO BID PRN #60 tab 11/11/20 12/14/20 Rx insulin glargine 100 unit/mL (3 60 unit SUBCUT DAILY #0 ml 11/11/20 12/14/20 Rx mL) subcutaneous pen (Basaglar KwikPen U-100 Insulin) albuterol sulfate 90 mcg/actuation 2 inha INH QID PRN 12/14/20 12/14/20 History aerosol inhaler (Ventolin HFA) furosemide 20 mg tablet (Lasix) 20 mg PO TID 12/14/20 12/14/20 History lactulose 10 gram/15 mL oral 30 ml PO QID 12/14/20 12/14/20 History solution (Constulose) levothyroxine 200 mcg tablet 200 mcg PO DAILYBB 12/14/20 12/14/20 History (Synthroid) oxycodone 15 mg tablet (Roxicodone) 15 mg PO TID PRN 12/14/20 12/14/20 History prochlorperazine maleate 5 mg 5 mg PO BID PRN 12/14/20 12/14/20 History tablet (Compazine) Patient History Medical History Abdominal wall cellulitis Acute hepatic encephalopathy Bowel obstruction Cauda equina compression Cellulitis and abscess of trunk (Unknown) Chronic low back pain COPD, group D, by GOLD 2017 classification Deep vein blood clot of left lower extremity RIGHT AND LEFT LEG AND THEN MOVED LUNG - 2001 Diabetes Diabetic neuropathy (01/04/11) Fracture of fourth metatarsal bone of left foot Gastritis Hyperammonemia Hypokalemia Hypomagnesemia Incarcerated ventral hernia Kidney stone HX OF AND HAD LITHOTRIPSY RIMA (obstructive sleep apnea) HX OF AND NO CURRENT PROBLEM Paroxysmal A-fib 2013 on Xarelto Pyelonephritis Rectal bleeding Septic shock Severe sepsis Splenomegaly, not elsewhere classified Supratherapeutic INR UTI (urinary tract infection) Surgical History History of appendectomy History of arthroplasty of right knee Hx of lithotripsy Hx of ventral hernia repair S/P cholecystectomy S/P sinus surgery S/P MARLEE (total abdominal hysterectomy) Family History Father Cancer Liver Brother Kidney disease Renal failure Cirrhosis Brother Cirrhosis Other Family history non-contributory Social History Smoking Status: Current every day smoker Tobacco Type: Cigarettes Cigarettes Per Day: 1/2 PPD; Second Hand Exposure: Yes; Hx Alcohol Use: No Hx Substance Use: No Preferred Language: Bengali Communication Ability: Effective Rehab Technician Required: No Beliefs That Will Affect Care: None marital status: Life Partner Current Living Situation: Significant Other Current Living Situation Comment: per ER documentation, pt resides with significant other current occupational status: disabled Other Information That Helps Us Care for You: No Feels Safe at Home: Yes Safety Concerns: Feels Safe At This Time Assistive Devices: Denture - Upper and Denture - Lower Assistive Devices Comment: doesn't wear dentures, claims they don't "fit right" Review of Systems Review of Systems: All systems reviewed & are unremarkable except as noted in HPI & below Physical Exam Constitutional: WD/WN, vitals as above Neck: trachea midline, no thyromegaly Respiratory: normal respiratory effort, lungs clear to auscultation Cardiovascular: Rate/Rhythm: regular rate and regular rhythm Gastrointestinal (Abdomen): normal bowel sounds, soft, nontender, no hepatosplenomegaly Skin: no rashes, warm and dry Results & Data ([facility]) Vital Signs (Past 12 Hours) Vital Signs Temp Pulse Pulse Pulse Resp BP BP 12/15/20 09:27 73 120/76 12/15/20 09:25 74 120/76 12/15/20 07:02 37.0 C 77 20 94/58 L 12/15/20 03:55 36.9 C 85 18 95/57 L 12/15/20 00:54 78 12/15/20 00:38 81 12/14/20 23:09 36.9 C 89 18 124/65 12/14/20 22:50 76 Pulse Ox Pulse Ox 12/15/20 09:27 12/15/20 09:25 93 12/15/20 07:02 91 12/15/20 03:55 93 12/15/20 00:54 96 12/15/20 00:38 12/14/20 23:09 96 12/14/20 22:50 94 Laboratory Results 12/15/20 12/15/20 12/15/20 Range/Units 07:49 06:34 06:34 WBC 9.39 (4.8-10.8) K/uL RBC 3.01 L (4.2-5.4) M/uL Hgb 11.0 L (12.0-16.0) g/dL Hct 33.5 L (37-47) % MCV 111.3 H (80-100) fL MCH 36.5 H (25-34) pg MCHC 32.8 (32-36) g/dL RDW Std Deviation 66.7 H (36.4-46.3) fL RDW Coeff of Mari 16.7 H (11.5-14.5) % Plt Count 109 L (130-400) K/uL MPV 9.0 (7.4-10.4) fL Immature Gran % (Auto) % Neut % (Auto) % Lymph % (Auto) % [place] % (Auto) % Eos % (Auto) % Baso % (Auto) % Neut # (Auto) (1.4-6.5) K/uL Lymph # (Auto) (1.2-3.4) K/uL [place] # (Auto) (0.11-0.59) K/uL Eos # (Auto) (0-0.5) K/uL Baso # (Auto) (0-0.2) K/uL Immature Gran # (Auto) (0.00-0.02) K/uL Anisocytosis Macrocytosis Echinocytes PT (9.0-12.0) Seconds INR (0.9-1.1) APTT (21.0-31.0) Seconds PTT Ratio ABG pH (7.35-7.45) ABG pCO2 (35-46) mmHg ABG pO2 (80-95) mmHg ABG HCO3 (19-24) mmol/L ABG O2 Saturation (90-95) % ABG Base Excess (-9-1.8) mEq/L Kermit Test (Pos) Barometric Pressure mm/Hg Oxygen Given Sodium 143 (136-145) mmol/L Potassium 3.2 L (3.5-5.1) mmol/L Chloride 109 H (98-107) mmol/L Carbon Dioxide 27 (21-32) mmol/L Anion Gap 7.0 (3-11) BUN 7 (7-18) mg/dl Creatinine 1.07 (0.6-1.2) mg/dl Est Cr Clr Drug Dosing 94.8 ml/min Est GFR ( Amer) 67.2 ml/min Est GFR (Non-Af Amer) 58.0 ml/min BUN/Creatinine Ratio 6.3 L (10-20) Glucose 116 H (70-99) mg/dl POC Glucose 115 H (70-99) mg/dl Lactate (0.4-2.0) mmol/L Calcium 7.9 L (8.5-10.1) mg/dl Phosphorus 2.2 L (2.5-4.9) mg/dl Magnesium 1.7 L (1.8-2.4) mg/dl Total Bilirubin 2.0 H (0.2-1) mg/dl AST 33 (15-37) U/L ALT 20 (12-78) U/L Alkaline Phosphatase 183 H (45-117) U/L Ammonia (11-32) umol/L Troponin I (0-0.045) ng/ml NT-Pro-B Natriuret Pep (0-900) pg/ml Total Protein 5.3 L (6.4-8.2) gm/dl Albumin 2.0 L (3.4-5.0) gm/dl Globulin 3.3 (2.5-4.0) gm/dl Albumin/Globulin Ratio 0.6 L (0.9-2) Procalcitonin (0-0.5) ng/ml Urine Color Urine Appearance (Clear) Urine pH (4.5-7.5) Ur Specific [place] (1.000-1.030) Urine Protein (Negative) Urine Glucose (UA) (Negative) Urine Ketones (Negative) Urine Blood (Negative) Urine Nitrite (Negative) Urine Bilirubin (Negative) Urine Urobilinogen (Negative) Ur Leukocyte Esterase (Negative) Urine WBC (Auto) (0-5) /hpf Urine RBC (Auto) (0-4) /hpf U Hyaline Cast (Auto) (0-5) /lpf U Epithel Cells (Auto) (0-5) /lpf Urine Bacteria (Auto) (Negative) Stool Occult Bld Scrn (Negative) Urine Opiates Screen (Neg) U Codeine Confrm GC/MS Ur Morphine (GC/MS) Ur Hydrocodone (GC/MS) Ur Norhydrocodone Ur Noroxycodone Urine Oxycodone (GC/MS) U Oxymorphone GC/MS Ur Methadone, Qual (Neg) Ur Hydromorphone (GC/MS) Urine Barbiturates (Neg) Ur Phencyclidine (PCP) (Neg) U Amphetamin/Meth Scrn (Neg) MDMA (Ecstasy) Screen (Neg) U Benzodiazepines Scrn (Neg) Ur Cocaine Metabolite (Neg) U Marijuana (THC) Screen (Neg) Drug Screen Comment Ethyl Alcohol mg/dL (0-3) mg/dl COVID-19 Eval Order SARS-CoV-2 (PCR) (Negative) Blood Type Antibody Screen 12/15/20 12/15/20 12/15/20 Range/Units 04:09 02:34 00:00 WBC (4.8-10.8) K/uL RBC (4.2-5.4) M/uL Hgb (12.0-16.0) g/dL Hct (37-47) % MCV (80-100) fL MCH (25-34) pg MCHC (32-36) g/dL RDW Std Deviation (36.4-46.3) fL RDW Coeff of Mari (11.5-14.5) % Plt Count (130-400) K/uL MPV (7.4-10.4) fL Immature Gran % (Auto) % Neut % (Auto) % Lymph % (Auto) % [place] % (Auto) % Eos % (Auto) % Baso % (Auto) % Neut # (Auto) (1.4-6.5) K/uL Lymph # (Auto) (1.2-3.4) K/uL [place] # (Auto) (0.11-0.59) K/uL Eos # (Auto) (0-0.5) K/uL Baso # (Auto) (0-0.2) K/uL Immature Gran # (Auto) (0.00-0.02) K/uL Anisocytosis Macrocytosis Echinocytes PT (9.0-12.0) Seconds INR (0.9-1.1) APTT (21.0-31.0) Seconds PTT Ratio ABG pH (7.35-7.45) ABG pCO2 (35-46) mmHg ABG pO2 (80-95) mmHg ABG HCO3 (19-24) mmol/L ABG O2 Saturation (90-95) % ABG Base Excess (-9-1.8) mEq/L Kermit Test (Pos) Barometric Pressure mm/Hg Oxygen Given Sodium (136-145) mmol/L Potassium (3.5-5.1) mmol/L Chloride (98-107) mmol/L Carbon Dioxide (21-32) mmol/L Anion Gap (3-11) BUN (7-18) mg/dl Creatinine (0.6-1.2) mg/dl Est Cr Clr Drug Dosing ml/min Est GFR ( Amer) ml/min Est GFR (Non-Af Amer) ml/min BUN/Creatinine Ratio (10-20) Glucose (70-99) mg/dl POC Glucose 142 H 253 H (70-99) mg/dl Lactate (0.4-2.0) mmol/L Calcium (8.5-10.1) mg/dl Phosphorus (2.5-4.9) mg/dl Magnesium (1.8-2.4) mg/dl Total Bilirubin (0.2-1) mg/dl AST (15-37) U/L ALT (12-78) U/L Alkaline Phosphatase (45-117) U/L Ammonia (11-32) umol/L Troponin I (0-0.045) ng/ml NT-Pro-B Natriuret Pep (0-900) pg/ml Total Protein (6.4-8.2) gm/dl Albumin (3.4-5.0) gm/dl Globulin (2.5-4.0) gm/dl Albumin/Globulin Ratio (0.9-2) Procalcitonin (0-0.5) ng/ml Urine Color Urine Appearance (Clear) Urine pH (4.5-7.5) Ur Specific [place] (1.000-1.030) Urine Protein (Negative) Urine Glucose (UA) (Negative) Urine Ketones (Negative) Urine Blood (Negative) Urine Nitrite (Negative) Urine Bilirubin (Negative) Urine Urobilinogen (Negative) Ur Leukocyte Esterase (Negative) Urine WBC (Auto) (0-5) /hpf Urine RBC (Auto) (0-4) /hpf U Hyaline Cast (Auto) (0-5) /lpf U Epithel Cells (Auto) (0-5) /lpf Urine Bacteria (Auto) (Negative) Stool Occult Bld Scrn Negative (Negative) Urine Opiates Screen (Neg) U Codeine Confrm GC/MS Ur Morphine (GC/MS) Ur Hydrocodone (GC/MS) Ur Norhydrocodone Ur Noroxycodone Urine Oxycodone (GC/MS) U Oxymorphone GC/MS Ur Methadone, Qual (Neg) Ur Hydromorphone (GC/MS) Urine Barbiturates (Neg) Ur Phencyclidine (PCP) (Neg) U Amphetamin/Meth Scrn (Neg) MDMA (Ecstasy) Screen (Neg) U Benzodiazepines Scrn (Neg) Ur Cocaine Metabolite (Neg) U Marijuana (THC) Screen (Neg) Drug Screen Comment Ethyl Alcohol mg/dL (0-3) mg/dl COVID-19 Eval Order SARS-CoV-2 (PCR) (Negative) Blood Type Antibody Screen 12/14/20 12/14/20 12/14/20 Range/Units 23:43 20:02 16:41 WBC (4.8-10.8) K/uL RBC (4.2-5.4) M/uL Hgb (12.0-16.0) g/dL Hct (37-47) % MCV (80-100) fL MCH (25-34) pg MCHC (32-36) g/dL RDW Std Deviation (36.4-46.3) fL RDW Coeff of Mari (11.5-14.5) % Plt Count (130-400) K/uL MPV (7.4-10.4) fL Immature Gran % (Auto) % Neut % (Auto) % Lymph % (Auto) % [place] % (Auto) % Eos % (Auto) % Baso % (Auto) % Neut # (Auto) (1.4-6.5) K/uL Lymph # (Auto) (1.2-3.4) K/uL [place] # (Auto) (0.11-0.59) K/uL Eos # (Auto) (0-0.5) K/uL Baso # (Auto) (0-0.2) K/uL Immature Gran # (Auto) (0.00-0.02) K/uL Anisocytosis Macrocytosis Echinocytes PT (9.0-12.0) Seconds INR (0.9-1.1) APTT (21.0-31.0) Seconds PTT Ratio ABG pH (7.35-7.45) ABG pCO2 (35-46) mmHg ABG pO2 (80-95) mmHg ABG HCO3 (19-24) mmol/L ABG O2 Saturation (90-95) % ABG Base Excess (-9-1.8) mEq/L Kermit Test (Pos) Barometric Pressure mm/Hg Oxygen Given Sodium (136-145) mmol/L Potassium (3.5-5.1) mmol/L Chloride (98-107) mmol/L Carbon Dioxide (21-32) mmol/L Anion Gap (3-11) BUN (7-18) mg/dl Creatinine (0.6-1.2) mg/dl Est Cr Clr Drug Dosing ml/min Est GFR ( Amer) ml/min Est GFR (Non-Af Amer) ml/min BUN/Creatinine Ratio (10-20) Glucose (70-99) mg/dl POC Glucose 116 H 73 73 (70-99) mg/dl Lactate (0.4-2.0) mmol/L Calcium (8.5-10.1) mg/dl Phosphorus (2.5-4.9) mg/dl Magnesium (1.8-2.4) mg/dl Total Bilirubin (0.2-1) mg/dl AST (15-37) U/L ALT (12-78) U/L Alkaline Phosphatase (45-117) U/L Ammonia (11-32) umol/L Troponin I (0-0.045) ng/ml NT-Pro-B Natriuret Pep (0-900) pg/ml Total Protein (6.4-8.2) gm/dl Albumin (3.4-5.0) gm/dl Globulin (2.5-4.0) gm/dl Albumin/Globulin Ratio (0.9-2) Procalcitonin (0-0.5) ng/ml Urine Color Urine Appearance (Clear) Urine pH (4.5-7.5) Ur Specific [place] (1.000-1.030) Urine Protein (Negative) Urine Glucose (UA) (Negative) Urine Ketones (Negative) Urine Blood (Negative) Urine Nitrite (Negative) Urine Bilirubin (Negative) Urine Urobilinogen (Negative) Ur Leukocyte Esterase (Negative) Urine WBC (Auto) (0-5) /hpf Urine RBC (Auto) (0-4) /hpf U Hyaline Cast (Auto) (0-5) /lpf U Epithel Cells (Auto) (0-5) /lpf Urine Bacteria (Auto) (Negative) Stool Occult Bld Scrn (Negative) Urine Opiates Screen (Neg) U Codeine Confrm GC/MS Ur Morphine (GC/MS) Ur Hydrocodone (GC/MS) Ur Norhydrocodone Ur Noroxycodone Urine Oxycodone (GC/MS) U Oxymorphone GC/MS Ur Methadone, Qual (Neg) Ur Hydromorphone (GC/MS) Urine Barbiturates (Neg) Ur Phencyclidine (PCP) (Neg) U Amphetamin/Meth Scrn (Neg) MDMA (Ecstasy) Screen (Neg) U Benzodiazepines Scrn (Neg) Ur Cocaine Metabolite (Neg) U Marijuana (THC) Screen (Neg) Drug Screen Comment Ethyl Alcohol mg/dL (0-3) mg/dl COVID-19 Eval Order SARS-CoV-2 (PCR) (Negative) Blood Type Antibody Screen 12/14/20 12/14/20 12/14/20 Range/Units 16:00 16:00 16:00 WBC (4.8-10.8) K/uL RBC (4.2-5.4) M/uL Hgb (12.0-16.0) g/dL Hct (37-47) % MCV (80-100) fL MCH (25-34) pg MCHC (32-36) g/dL RDW Std Deviation (36.4-46.3) fL RDW Coeff of Mari (11.5-14.5) % Plt Count (130-400) K/uL MPV (7.4-10.4) fL Immature Gran % (Auto) % Neut % (Auto) % Lymph % (Auto) % [place] % (Auto) % Eos % (Auto) % Baso % (Auto) % Neut # (Auto) (1.4-6.5) K/uL Lymph # (Auto) (1.2-3.4) K/uL [place] # (Auto) (0.11-0.59) K/uL Eos # (Auto) (0-0.5) K/uL Baso # (Auto) (0-0.2) K/uL Immature Gran # (Auto) (0.00-0.02) K/uL Anisocytosis Macrocytosis Echinocytes PT (9.0-12.0) Seconds INR (0.9-1.1) APTT (21.0-31.0) Seconds PTT Ratio ABG pH (7.35-7.45) ABG pCO2 (35-46) mmHg ABG pO2 (80-95) mmHg ABG HCO3 (19-24) mmol/L ABG O2 Saturation (90-95) % ABG Base Excess (-9-1.8) mEq/L Kermit Test (Pos) Barometric Pressure mm/Hg Oxygen Given Sodium (136-145) mmol/L Potassium (3.5-5.1) mmol/L Chloride (98-107) mmol/L Carbon Dioxide (21-32) mmol/L Anion Gap (3-11) BUN (7-18) mg/dl Creatinine (0.6-1.2) mg/dl Est Cr Clr Drug Dosing ml/min Est GFR ( Amer) ml/min Est GFR (Non-Af Amer) ml/min BUN/Creatinine Ratio (10-20) Glucose (70-99) mg/dl POC Glucose (70-99) mg/dl Lactate (0.4-2.0) mmol/L Calcium (8.5-10.1) mg/dl Phosphorus (2.5-4.9) mg/dl Magnesium (1.8-2.4) mg/dl Total Bilirubin (0.2-1) mg/dl AST (15-37) U/L ALT (12-78) U/L Alkaline Phosphatase (45-117) U/L Ammonia (11-32) umol/L Troponin I (0-0.045) ng/ml NT-Pro-B Natriuret Pep (0-900) pg/ml Total Protein (6.4-8.2) gm/dl Albumin (3.4-5.0) gm/dl Globulin (2.5-4.0) gm/dl Albumin/Globulin Ratio (0.9-2) Procalcitonin (0-0.5) ng/ml Urine Color Dark Yellow Urine Appearance Clear (Clear) Urine pH 6.0 (4.5-7.5) Ur Specific [place] 1.020 (1.000-1.030) Urine Protein Negative (Negative) Urine Glucose (UA) Negative (Negative) Urine Ketones Trace H (Negative) Urine Blood Negative (Negative) Urine Nitrite Negative (Negative) Urine Bilirubin 1+ H (Negative) Urine Urobilinogen Negative (Negative) Ur Leukocyte Esterase Trace H (Negative) Urine WBC (Auto) 5-10 H (0-5) /hpf Urine RBC (Auto) 5-10 H (0-4) /hpf U Hyaline Cast (Auto) 10-30 H (0-5) /lpf U Epithel Cells (Auto) >30 H (0-5) /lpf Urine Bacteria (Auto) Negative (Negative) Stool Occult Bld Scrn (Negative) Urine Opiates Screen Pos H (Neg) U Codeine Confrm GC/MS Pending Ur Morphine (GC/MS) Pending Ur Hydrocodone (GC/MS) Pending Ur Norhydrocodone Pending Ur Noroxycodone Pending Urine Oxycodone (GC/MS) Pending U Oxymorphone GC/MS Pending Ur Methadone, Qual Neg (Neg) Ur Hydromorphone (GC/MS) Pending Urine Barbiturates Neg (Neg) Ur Phencyclidine (PCP) Neg (Neg) U Amphetamin/Meth Scrn Neg (Neg) MDMA (Ecstasy) Screen Neg (Neg) U Benzodiazepines Scrn Neg (Neg) Ur Cocaine Metabolite Neg (Neg) U Marijuana (THC) Screen Neg (Neg) Drug Screen Comment Pending Ethyl Alcohol mg/dL (0-3) mg/dl COVID-19 Eval Order SARS-CoV-2 (PCR) (Negative) Blood Type Antibody Screen 12/14/20 12/14/20 12/14/20 Range/Units 15:55 15:02 14:33 WBC (4.8-10.8) K/uL RBC (4.2-5.4) M/uL Hgb (12.0-16.0) g/dL Hct (37-47) % MCV (80-100) fL MCH (25-34) pg MCHC (32-36) g/dL RDW Std Deviation (36.4-46.3) fL RDW Coeff of Mari (11.5-14.5) % Plt Count (130-400) K/uL MPV (7.4-10.4) fL Immature Gran % (Auto) % Neut % (Auto) % Lymph % (Auto) % [place] % (Auto) % Eos % (Auto) % Baso % (Auto) % Neut # (Auto) (1.4-6.5) K/uL Lymph # (Auto) (1.2-3.4) K/uL [place] # (Auto) (0.11-0.59) K/uL Eos # (Auto) (0-0.5) K/uL Baso # (Auto) (0-0.2) K/uL Immature Gran # (Auto) (0.00-0.02) K/uL Anisocytosis Macrocytosis Echinocytes PT (9.0-12.0) Seconds INR (0.9-1.1) APTT (21.0-31.0) Seconds PTT Ratio ABG pH 7.45 (7.35-7.45) ABG pCO2 39 (35-46) mmHg ABG pO2 74 L (80-95) mmHg ABG HCO3 26 H (19-24) mmol/L ABG O2 Saturation 95.7 H (90-95) % ABG Base Excess 1.9 H (-9-1.8) mEq/L Kermit Test Pos (Pos) Barometric Pressure 729.7 mm/Hg Oxygen Given Room Air Sodium (136-145) mmol/L Potassium (3.5-5.1) mmol/L Chloride (98-107) mmol/L Carbon Dioxide (21-32) mmol/L Anion Gap (3-11) BUN (7-18) mg/dl Creatinine (0.6-1.2) mg/dl Est Cr Clr Drug Dosing ml/min Est GFR ( Amer) ml/min Est GFR (Non-Af Amer) ml/min BUN/Creatinine Ratio (10-20) Glucose (70-99) mg/dl POC Glucose 76 48 L* (70-99) mg/dl Lactate (0.4-2.0) mmol/L Calcium (8.5-10.1) mg/dl Phosphorus (2.5-4.9) mg/dl Magnesium (1.8-2.4) mg/dl Total Bilirubin (0.2-1) mg/dl AST (15-37) U/L ALT (12-78) U/L Alkaline Phosphatase (45-117) U/L Ammonia (11-32) umol/L Troponin I (0-0.045) ng/ml NT-Pro-B Natriuret Pep (0-900) pg/ml Total Protein (6.4-8.2) gm/dl Albumin (3.4-5.0) gm/dl Globulin (2.5-4.0) gm/dl Albumin/Globulin Ratio (0.9-2) Procalcitonin (0-0.5) ng/ml Urine Color Urine Appearance (Clear) Urine pH (4.5-7.5) Ur Specific [place] (1.000-1.030) Urine Protein (Negative) Urine Glucose (UA) (Negative) Urine Ketones (Negative) Urine Blood (Negative) Urine Nitrite (Negative) Urine Bilirubin (Negative) Urine Urobilinogen (Negative) Ur Leukocyte Esterase (Negative) Urine WBC (Auto) (0-5) /hpf Urine RBC (Auto) (0-4) /hpf U Hyaline Cast (Auto) (0-5) /lpf U Epithel Cells (Auto) (0-5) /lpf Urine Bacteria (Auto) (Negative) Stool Occult Bld Scrn (Negative) Urine Opiates Screen (Neg) U Codeine Confrm GC/MS Ur Morphine (GC/MS) Ur Hydrocodone (GC/MS) Ur Norhydrocodone Ur Noroxycodone Urine Oxycodone (GC/MS) U Oxymorphone GC/MS Ur Methadone, Qual (Neg) Ur Hydromorphone (GC/MS) Urine Barbiturates (Neg) Ur Phencyclidine (PCP) (Neg) U Amphetamin/Meth Scrn (Neg) MDMA (Ecstasy) Screen (Neg) U Benzodiazepines Scrn (Neg) Ur Cocaine Metabolite (Neg) U Marijuana (THC) Screen (Neg) Drug Screen Comment Ethyl Alcohol mg/dL (0-3) mg/dl COVID-19 Eval Order SARS-CoV-2 (PCR) (Negative) Blood Type Antibody Screen 12/14/20 12/14/20 12/14/20 Range/Units 14:13 13:25 13:09 WBC (4.8-10.8) K/uL RBC (4.2-5.4) M/uL Hgb (12.0-16.0) g/dL Hct (37-47) % MCV (80-100) fL MCH (25-34) pg MCHC (32-36) g/dL RDW Std Deviation (36.4-46.3) fL RDW Coeff of Mari (11.5-14.5) % Plt Count (130-400) K/uL MPV (7.4-10.4) fL Immature Gran % (Auto) % Neut % (Auto) % Lymph % (Auto) % [place] % (Auto) % Eos % (Auto) % Baso % (Auto) % Neut # (Auto) (1.4-6.5) K/uL Lymph # (Auto) (1.2-3.4) K/uL [place] # (Auto) (0.11-0.59) K/uL Eos # (Auto) (0-0.5) K/uL Baso # (Auto) (0-0.2) K/uL Immature Gran # (Auto) (0.00-0.02) K/uL Anisocytosis Macrocytosis Echinocytes PT (9.0-12.0) Seconds INR (0.9-1.1) APTT (21.0-31.0) Seconds PTT Ratio ABG pH (7.35-7.45) ABG pCO2 (35-46) mmHg ABG pO2 (80-95) mmHg ABG HCO3 (19-24) mmol/L ABG O2 Saturation (90-95) % ABG Base Excess (-9-1.8) mEq/L Kermit Test (Pos) Barometric Pressure mm/Hg Oxygen Given Sodium (136-145) mmol/L Potassium (3.5-5.1) mmol/L Chloride (98-107) mmol/L Carbon Dioxide (21-32) mmol/L Anion Gap (3-11) BUN (7-18) mg/dl Creatinine (0.6-1.2) mg/dl Est Cr Clr Drug Dosing ml/min Est GFR ( Amer) ml/min Est GFR (Non-Af Amer) ml/min BUN/Creatinine Ratio (10-20) Glucose (70-99) mg/dl POC Glucose 51 L* 57 L* (70-99) mg/dl Lactate (0.4-2.0) mmol/L Calcium (8.5-10.1) mg/dl Phosphorus (2.5-4.9) mg/dl Magnesium (1.8-2.4) mg/dl Total Bilirubin (0.2-1) mg/dl AST (15-37) U/L ALT (12-78) U/L Alkaline Phosphatase (45-117) U/L Ammonia (11-32) umol/L Troponin I (0-0.045) ng/ml NT-Pro-B Natriuret Pep (0-900) pg/ml Total Protein (6.4-8.2) gm/dl Albumin (3.4-5.0) gm/dl Globulin (2.5-4.0) gm/dl Albumin/Globulin Ratio (0.9-2) Procalcitonin (0-0.5) ng/ml Urine Color Urine Appearance (Clear) Urine pH (4.5-7.5) Ur Specific [place] (1.000-1.030) Urine Protein (Negative) Urine Glucose (UA) (Negative) Urine Ketones (Negative) Urine Blood (Negative) Urine Nitrite (Negative) Urine Bilirubin (Negative) Urine Urobilinogen (Negative) Ur Leukocyte Esterase (Negative) Urine WBC (Auto) (0-5) /hpf Urine RBC (Auto) (0-4) /hpf U Hyaline Cast (Auto) (0-5) /lpf U Epithel Cells (Auto) (0-5) /lpf Urine Bacteria (Auto) (Negative) Stool Occult Bld Scrn (Negative) Urine Opiates Screen (Neg) U Codeine Confrm GC/MS Ur Morphine (GC/MS) Ur Hydrocodone (GC/MS) Ur Norhydrocodone Ur Noroxycodone Urine Oxycodone (GC/MS) U Oxymorphone GC/MS Ur Methadone, Qual (Neg) Ur Hydromorphone (GC/MS) Urine Barbiturates (Neg) Ur Phencyclidine (PCP) (Neg) U Amphetamin/Meth Scrn (Neg) MDMA (Ecstasy) Screen (Neg) U Benzodiazepines Scrn (Neg) Ur Cocaine Metabolite (Neg) U Marijuana (THC) Screen (Neg) Drug Screen Comment Ethyl Alcohol mg/dL (0-3) mg/dl COVID-19 Eval Order SARS-CoV-2 (PCR) (Negative) Blood Type A Positive Antibody Screen NEGATIVE 12/14/20 12/14/20 12/14/20 Range/Units 11:53 11:53 11:53 WBC (4.8-10.8) K/uL RBC (4.2-5.4) M/uL Hgb (12.0-16.0) g/dL Hct (37-47) % MCV (80-100) fL MCH (25-34) pg MCHC (32-36) g/dL RDW Std Deviation (36.4-46.3) fL RDW Coeff of Mari (11.5-14.5) % Plt Count (130-400) K/uL MPV (7.4-10.4) fL Immature Gran % (Auto) % Neut % (Auto) % Lymph % (Auto) % [place] % (Auto) % Eos % (Auto) % Baso % (Auto) % Neut # (Auto) (1.4-6.5) K/uL Lymph # (Auto) (1.2-3.4) K/uL [place] # (Auto) (0.11-0.59) K/uL Eos # (Auto) (0-0.5) K/uL Baso # (Auto) (0-0.2) K/uL Immature Gran # (Auto) (0.00-0.02) K/uL Anisocytosis Macrocytosis Echinocytes PT (9.0-12.0) Seconds INR (0.9-1.1) APTT (21.0-31.0) Seconds PTT Ratio ABG pH (7.35-7.45) ABG pCO2 (35-46) mmHg ABG pO2 (80-95) mmHg ABG HCO3 (19-24) mmol/L ABG O2 Saturation (90-95) % ABG Base Excess (-9-1.8) mEq/L Kermit Test (Pos) Barometric Pressure mm/Hg Oxygen Given Sodium (136-145) mmol/L Potassium (3.5-5.1) mmol/L Chloride (98-107) mmol/L Carbon Dioxide (21-32) mmol/L Anion Gap (3-11) BUN (7-18) mg/dl Creatinine (0.6-1.2) mg/dl Est Cr Clr Drug Dosing ml/min Est GFR ( Amer) ml/min Est GFR (Non-Af Amer) ml/min BUN/Creatinine Ratio (10-20) Glucose (70-99) mg/dl POC Glucose (70-99) mg/dl Lactate (0.4-2.0) mmol/L Calcium (8.5-10.1) mg/dl Phosphorus (2.5-4.9) mg/dl Magnesium (1.8-2.4) mg/dl Total Bilirubin (0.2-1) mg/dl AST (15-37) U/L ALT (12-78) U/L Alkaline Phosphatase (45-117) U/L Ammonia (11-32) umol/L Troponin I (0-0.045) ng/ml NT-Pro-B Natriuret Pep 306 (0-900) pg/ml Total Protein (6.4-8.2) gm/dl Albumin (3.4-5.0) gm/dl Globulin (2.5-4.0) gm/dl Albumin/Globulin Ratio (0.9-2) Procalcitonin 0.13 (0-0.5) ng/ml Urine Color Urine Appearance (Clear) Urine pH (4.5-7.5) Ur Specific [place] (1.000-1.030) Urine Protein (Negative) Urine Glucose (UA) (Negative) Urine Ketones (Negative) Urine Blood (Negative) Urine Nitrite (Negative) Urine Bilirubin (Negative) Urine Urobilinogen (Negative) Ur Leukocyte Esterase (Negative) Urine WBC (Auto) (0-5) /hpf Urine RBC (Auto) (0-4) /hpf U Hyaline Cast (Auto) (0-5) /lpf U Epithel Cells (Auto) (0-5) /lpf Urine Bacteria (Auto) (Negative) Stool Occult Bld Scrn (Negative) Urine Opiates Screen (Neg) U Codeine Confrm GC/MS Ur Morphine (GC/MS) Ur Hydrocodone (GC/MS) Ur Norhydrocodone Ur Noroxycodone Urine Oxycodone (GC/MS) U Oxymorphone GC/MS Ur Methadone, Qual (Neg) Ur Hydromorphone (GC/MS) Urine Barbiturates (Neg) Ur Phencyclidine (PCP) (Neg) U Amphetamin/Meth Scrn (Neg) MDMA (Ecstasy) Screen (Neg) U Benzodiazepines Scrn (Neg) Ur Cocaine Metabolite (Neg) U Marijuana (THC) Screen (Neg) Drug Screen Comment Ethyl Alcohol mg/dL < 3.0 (0-3) mg/dl COVID-19 Eval Order SARS-CoV-2 (PCR) (Negative) Blood Type Antibody Screen 12/14/20 12/14/20 12/14/20 Range/Units 11:53 11:53 11:53 WBC (4.8-10.8) K/uL RBC (4.2-5.4) M/uL Hgb (12.0-16.0) g/dL Hct (37-47) % MCV (80-100) fL MCH (25-34) pg MCHC (32-36) g/dL RDW Std Deviation (36.4-46.3) fL RDW Coeff of Mari (11.5-14.5) % Plt Count (130-400) K/uL MPV (7.4-10.4) fL Immature Gran % (Auto) % Neut % (Auto) % Lymph % (Auto) % [place] % (Auto) % Eos % (Auto) % Baso % (Auto) % Neut # (Auto) (1.4-6.5) K/uL Lymph # (Auto) (1.2-3.4) K/uL [place] # (Auto) (0.11-0.59) K/uL Eos # (Auto) (0-0.5) K/uL Baso # (Auto) (0-0.2) K/uL Immature Gran # (Auto) (0.00-0.02) K/uL Anisocytosis Macrocytosis Echinocytes PT (9.0-12.0) Seconds INR (0.9-1.1) APTT (21.0-31.0) Seconds PTT Ratio ABG pH (7.35-7.45) ABG pCO2 (35-46) mmHg ABG pO2 (80-95) mmHg ABG HCO3 (19-24) mmol/L ABG O2 Saturation (90-95) % ABG Base Excess (-9-1.8) mEq/L Kermit Test (Pos) Barometric Pressure mm/Hg Oxygen Given Sodium 144 (136-145) mmol/L Potassium 3.1 L (3.5-5.1) mmol/L Chloride 111 H (98-107) mmol/L Carbon Dioxide 28 (21-32) mmol/L Anion Gap 5.0 (3-11) BUN 9 (7-18) mg/dl Creatinine 0.90 (0.6-1.2) mg/dl Est Cr Clr Drug Dosing 112.8 ml/min Est GFR ( Amer) 82.8 ml/min Est GFR (Non-Af Amer) 71.5 ml/min BUN/Creatinine Ratio 10.5 (10-20) Glucose 62 L (70-99) mg/dl POC Glucose (70-99) mg/dl Lactate 1.1 (0.4-2.0) mmol/L Calcium 7.5 L (8.5-10.1) mg/dl Phosphorus (2.5-4.9) mg/dl Magnesium 1.6 L (1.8-2.4) mg/dl Total Bilirubin 1.5 H (0.2-1) mg/dl AST 34 (15-37) U/L ALT 21 (12-78) U/L Alkaline Phosphatase 174 H (45-117) U/L Ammonia 41.0 H (11-32) umol/L Troponin I < 0.015 (0-0.045) ng/ml NT-Pro-B Natriuret Pep (0-900) pg/ml Total Protein 5.4 L (6.4-8.2) gm/dl Albumin 1.9 L (3.4-5.0) gm/dl Globulin 3.5 (2.5-4.0) gm/dl Albumin/Globulin Ratio 0.5 L (0.9-2) Procalcitonin (0-0.5) ng/ml Urine Color Urine Appearance (Clear) Urine pH (4.5-7.5) Ur Specific [place] (1.000-1.030) Urine Protein (Negative) Urine Glucose (UA) (Negative) Urine Ketones (Negative) Urine Blood (Negative) Urine Nitrite (Negative) Urine Bilirubin (Negative) Urine Urobilinogen (Negative) Ur Leukocyte Esterase (Negative) Urine WBC (Auto) (0-5) /hpf Urine RBC (Auto) (0-4) /hpf U Hyaline Cast (Auto) (0-5) /lpf U Epithel Cells (Auto) (0-5) /lpf Urine Bacteria (Auto) (Negative) Stool Occult Bld Scrn (Negative) Urine Opiates Screen (Neg) U Codeine Confrm GC/MS Ur Morphine (GC/MS) Ur Hydrocodone (GC/MS) Ur Norhydrocodone Ur Noroxycodone Urine Oxycodone (GC/MS) U Oxymorphone GC/MS Ur Methadone, Qual (Neg) Ur Hydromorphone (GC/MS) Urine Barbiturates (Neg) Ur Phencyclidine (PCP) (Neg) U Amphetamin/Meth Scrn (Neg) MDMA (Ecstasy) Screen (Neg) U Benzodiazepines Scrn (Neg) Ur Cocaine Metabolite (Neg) U Marijuana (THC) Screen (Neg) Drug Screen Comment Ethyl Alcohol mg/dL (0-3) mg/dl COVID-19 Eval Order SARS-CoV-2 (PCR) (Negative) Blood Type Antibody Screen 12/14/20 12/14/20 12/14/20 Range/Units 11:53 11:53 11:44 WBC 7.70 (4.8-10.8) K/uL RBC 2.44 L (4.2-5.4) M/uL Hgb 8.9 L (12.0-16.0) g/dL Hct 27.5 L (37-47) % MCV 112.7 H (80-100) fL MCH 36.5 H (25-34) pg MCHC 32.4 (32-36) g/dL RDW Std Deviation 69.2 H (36.4-46.3) fL RDW Coeff of Mari 16.8 H (11.5-14.5) % Plt Count 113 L (130-400) K/uL MPV 9.4 (7.4-10.4) fL Immature Gran % (Auto) 0.4 % Neut % (Auto) 62.4 % Lymph % (Auto) 24.7 % [place] % (Auto) 10.3 % Eos % (Auto) 1.9 % Baso % (Auto) 0.3 % Neut # (Auto) 4.81 (1.4-6.5) K/uL Lymph # (Auto) 1.90 (1.2-3.4) K/uL [place] # (Auto) 0.79 H (0.11-0.59) K/uL Eos # (Auto) 0.15 (0-0.5) K/uL Baso # (Auto) 0.02 (0-0.2) K/uL Immature Gran # (Auto) 0.03 H (0.00-0.02) K/uL Anisocytosis Present Macrocytosis Present Echinocytes 1+ PT 12.7 H (9.0-12.0) Seconds INR 1.3 H (0.9-1.1) APTT 28.2 (21.0-31.0) Seconds PTT Ratio 1.1 ABG pH (7.35-7.45) ABG pCO2 (35-46) mmHg ABG pO2 (80-95) mmHg ABG HCO3 (19-24) mmol/L ABG O2 Saturation (90-95) % ABG Base Excess (-9-1.8) mEq/L Kermit Test (Pos) Barometric Pressure mm/Hg Oxygen Given Sodium (136-145) mmol/L Potassium (3.5-5.1) mmol/L Chloride (98-107) mmol/L Carbon Dioxide (21-32) mmol/L Anion Gap (3-11) BUN (7-18) mg/dl Creatinine (0.6-1.2) mg/dl Est Cr Clr Drug Dosing ml/min Est GFR ( Amer) ml/min Est GFR (Non-Af Amer) ml/min BUN/Creatinine Ratio (10-20) Glucose (70-99) mg/dl POC Glucose (70-99) mg/dl Lactate (0.4-2.0) mmol/L Calcium (8.5-10.1) mg/dl Phosphorus (2.5-4.9) mg/dl Magnesium (1.8-2.4) mg/dl Total Bilirubin (0.2-1) mg/dl AST (15-37) U/L ALT (12-78) U/L Alkaline Phosphatase (45-117) U/L Ammonia (11-32) umol/L Troponin I (0-0.045) ng/ml NT-Pro-B Natriuret Pep (0-900) pg/ml Total Protein (6.4-8.2) gm/dl Albumin (3.4-5.0) gm/dl Globulin (2.5-4.0) gm/dl Albumin/Globulin Ratio (0.9-2) Procalcitonin (0-0.5) ng/ml Urine Color Urine Appearance (Clear) Urine pH (4.5-7.5) Ur Specific [place] (1.000-1.030) Urine Protein (Negative) Urine Glucose (UA) (Negative) Urine Ketones (Negative) Urine Blood (Negative) Urine Nitrite (Negative) Urine Bilirubin (Negative) Urine Urobilinogen (Negative) Ur Leukocyte Esterase (Negative) Urine WBC (Auto) (0-5) /hpf Urine RBC (Auto) (0-4) /hpf U Hyaline Cast (Auto) (0-5) /lpf U Epithel Cells (Auto) (0-5) /lpf Urine Bacteria (Auto) (Negative) Stool Occult Bld Scrn (Negative) Urine Opiates Screen (Neg) U Codeine Confrm GC/MS Ur Morphine (GC/MS) Ur Hydrocodone (GC/MS) Ur Norhydrocodone Ur Noroxycodone Urine Oxycodone (GC/MS) U Oxymorphone GC/MS Ur Methadone, Qual (Neg) Ur Hydromorphone (GC/MS) Urine Barbiturates (Neg) Ur Phencyclidine (PCP) (Neg) U Amphetamin/Meth Scrn (Neg) MDMA (Ecstasy) Screen (Neg) U Benzodiazepines Scrn (Neg) Ur Cocaine Metabolite (Neg) U Marijuana (THC) Screen (Neg) Drug Screen Comment Ethyl Alcohol mg/dL (0-3) mg/dl COVID-19 Eval Order SARS-CoV-2 (PCR) NEGATIVE (Negative) Blood Type Antibody Screen 12/14/20 12/14/20 Range/Units 11:44 10:43 WBC (4.8-10.8) K/uL RBC (4.2-5.4) M/uL Hgb (12.0-16.0) g/dL Hct (37-47) % MCV (80-100) fL MCH (25-34) pg MCHC (32-36) g/dL RDW Std Deviation (36.4-46.3) fL RDW Coeff of Mari (11.5-14.5) % Plt Count (130-400) K/uL MPV (7.4-10.4) fL Immature Gran % (Auto) % Neut % (Auto) % Lymph % (Auto) % [place] % (Auto) % Eos % (Auto) % Baso % (Auto) % Neut # (Auto) (1.4-6.5) K/uL Lymph # (Auto) (1.2-3.4) K/uL [place] # (Auto) (0.11-0.59) K/uL Eos # (Auto) (0-0.5) K/uL Baso # (Auto) (0-0.2) K/uL Immature Gran # (Auto) (0.00-0.02) K/uL Anisocytosis Macrocytosis Echinocytes PT (9.0-12.0) Seconds INR (0.9-1.1) APTT (21.0-31.0) Seconds PTT Ratio ABG pH (7.35-7.45) ABG pCO2 (35-46) mmHg ABG pO2 (80-95) mmHg ABG HCO3 (19-24) mmol/L ABG O2 Saturation (90-95) % ABG Base Excess (-9-1.8) mEq/L Kermit Test (Pos) Barometric Pressure mm/Hg Oxygen Given Sodium (136-145) mmol/L Potassium (3.5-5.1) mmol/L Chloride (98-107) mmol/L Carbon Dioxide (21-32) mmol/L Anion Gap (3-11) BUN (7-18) mg/dl Creatinine (0.6-1.2) mg/dl Est Cr Clr Drug Dosing ml/min Est GFR ( Amer) ml/min Est GFR (Non-Af Amer) ml/min BUN/Creatinine Ratio (10-20) Glucose (70-99) mg/dl POC Glucose 114 H (70-99) mg/dl Lactate (0.4-2.0) mmol/L Calcium (8.5-10.1) mg/dl Phosphorus (2.5-4.9) mg/dl Magnesium (1.8-2.4) mg/dl Total Bilirubin (0.2-1) mg/dl AST (15-37) U/L ALT (12-78) U/L Alkaline Phosphatase (45-117) U/L Ammonia (11-32) umol/L Troponin I (0-0.045) ng/ml NT-Pro-B Natriuret Pep (0-900) pg/ml Total Protein (6.4-8.2) gm/dl Albumin (3.4-5.0) gm/dl Globulin (2.5-4.0) gm/dl Albumin/Globulin Ratio (0.9-2) Procalcitonin (0-0.5) ng/ml Urine Color Urine Appearance (Clear) Urine pH (4.5-7.5) Ur Specific [place] (1.000-1.030) Urine Protein (Negative) Urine Glucose (UA) (Negative) Urine Ketones (Negative) Urine Blood (Negative) Urine Nitrite (Negative) Urine Bilirubin (Negative) Urine Urobilinogen (Negative) Ur Leukocyte Esterase (Negative) Urine WBC (Auto) (0-5) /hpf Urine RBC (Auto) (0-4) /hpf U Hyaline Cast (Auto) (0-5) /lpf U Epithel Cells (Auto) (0-5) /lpf Urine Bacteria (Auto) (Negative) Stool Occult Bld Scrn (Negative) Urine Opiates Screen (Neg) U Codeine Confrm GC/MS Ur Morphine (GC/MS) Ur Hydrocodone (GC/MS) Ur Norhydrocodone Ur Noroxycodone Urine Oxycodone (GC/MS) U Oxymorphone GC/MS Ur Methadone, Qual (Neg) Ur Hydromorphone (GC/MS) Urine Barbiturates (Neg) Ur Phencyclidine (PCP) (Neg) U Amphetamin/Meth Scrn (Neg) MDMA (Ecstasy) Screen (Neg) U Benzodiazepines Scrn (Neg) Ur Cocaine Metabolite (Neg) U Marijuana (THC) Screen (Neg) Drug Screen Comment Ethyl Alcohol mg/dL (0-3) mg/dl COVID-19 Eval Order Covid19 at [facility] SARS-CoV-2 (PCR) (Negative) Blood Type Antibody Screen
--- NOTE | 2020-12-15 10:34 | Pharmacy Report ---
Pharmacy Glycemic Short Note 2 - Date of Service December 15, 2020 - Glycemic Short BSG Results (Last 24 hours): 12/14/20 12/14/20 12/14/20 10:43 11:53 13:09 Glucose 62 L POC Glucose 114 H 57 L* 12/14/20 12/14/20 12/14/20 14:13 14:33 15:02 Glucose POC Glucose 51 L* 48 L* 76 12/14/20 12/14/20 12/14/20 16:41 20:02 23:43 Glucose POC Glucose 73 73 116 H 12/15/20 12/15/20 12/15/20 02:34 04:09 06:34 Glucose 116 H POC Glucose 253 H 142 H 12/15/20 07:49 Glucose POC Glucose 115 H OUTPATIENT ANTIDIABETIC REGIMEN: * Basaglar 60 units SC daily * Novolog 15 units SC TIDM * Trulicity 1.5 mg SC weekly on Tuesday * HbA1c: 5.6% (11/04/20) ASSESSMENT: * SR is a 54 year old female known to pharmacy glycemic consult service * Admitted on 12/14/20 with acute hepatic encephalopathy * Hypoglycemia noted yesterday afternoon, 57 -> 51 -> 48 * D10 administered yesterday * Fasting BSG of 115 mg/dL this morning * Will utilize recent admission data to guide initial insulin dosing PLAN FOR INPATIENT GLYCEMIC CONTROL: * Hold outpatient Trulicity * Basal insulin * Lantus 20 units SC daily * Reassess daily * Bolus insulin * NovoLog per scale ACHS or Q6hrs while NPO * Goal Range: Low 110 mg/dL - High 140 mg/dL * Correction Factor: 25 mg/dL/unit * Nutritional / Prandial insulin per carb ratio of 1 unit per 5 grams CHO consumed PLAN FOR DISCHARGE: * HbA1c of 5.6% suggests excellent outpatient glycemic control * Given hypoglycemia on presentation - may be reasonable to decrease outpatient regimen * Will continue to follow and make recommendations accordingly * Ensure prompt follow-up with managing outpatient provider upon discharge
[2020-12-15] MEDS ORDERED: POTASSIUM CHLORIDE CRTAB 20 MEQ TABCR PO STA (11:22)
--- NOTE | 2020-12-15 11:28 | Hospitalist Progress Note ---
Date of Service December 15, 2020 Assessment & Plan (1) Acute metabolic encephalopathy: Plan: - Likely multifactorial:Medications, Hypoglycemia, Hepatic Encephalopathy - CT head: No acute intracranial findings. Patient known for noncompliance with regular meals and mistakenly taking her previous dose of Insulin (And not the dose recommended from recent discharge) - slightly elevated ammonia levels, 41 on admission, - Continue lactulose, rifaximin - Monitor for hypoglycemia - initially was 62, improved with IV dextrose -Obtain blood cultures, urine culture to rule out other infectious source, afebrile currently UA not c/w UTI Blood cultx - NGTD -Checking drug tox -Checked ABG on admission, in ER has O2 sats at 94% on RA -Concerned that she has missed Lasix with CXR showing pulmonary edema, gave IV Lasix 20 mg on admission, inserted Graham, strict I's and O's 12/15 -clinically patient is much improved, she is alert oriented answering questions appropriately (2) DM2 (diabetes mellitus, type 2): Plan: -Last A1c was 5.6 on 11/05/2019 -ISS with Accu-Cheks ACHS -Presented with hypoglycemia with glucose in the 60s, no noncompliance of medication, discussed the importance of eating routine/regular meals, may need to reduce insulin 15 units 3 times daily since this is the second time she has been admitted for such, Trulicity 1.5 mg weekly, Lantus 60 units daily will be reduced in half for now to 30 mg HS with hypoglycemic episode -Allow diet once encephalopathy improves Glycemic pharmacy consulted, recommendations as below HbA1c of 5.6% suggests excellent outpatient glycemic control Given hypoglycemia on presentation and previous episodes of hypoglycemia - suggest decreasing insulin upon discharge Decrease Basaglar to 30 units SC daily Decrease Novolog to 10 units TIDM, if persistently elevated BSGs at home then increase back to 15 units TIDM Hold Novolog if limited/no PO intake Okay to continue Trulicity Patient should continue to self-monitor blood glucose ACHS and report abnormal values to primary care provider (3) Hepatic encephalopathy: Plan: -Ammonia elevated as above, p.o. 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 Will Hemoccult all stools -Continue lactulose and Xifaxan, zinc, spironolactone, lasix -Avoid narcotics so as to limit confusion -Avoid NSAIDs (5) Paroxysmal A-fib: Plan: -Continue Xarelto, carvedilol 12.5 twice daily, lasix 20 mg TID po -ER reports that she was slightly bradycardic upon arrival to the ER however this improved without any pharmacological intervention and her on telemetry -Check 2D echo with pulmonary edema on CXR Echo: Echo difficult study. LV grossly normal size. LV systolic function normal, EF 55 to 60%. RV chamber size appears mildly dilated with at least mild diffuse right ventricular hypokinesis on technically limited visualization. There is no pericardial effusion. (6) COPD, group D, by GOLD 2017 classification: Plan: -Uses albuterol inhaler as needed Previously patient was using oxygen, she says she has oxygen at home but not using it Will obtain nocturnal study and 2 step before discharge (7) Hypothyroid: Plan: -Continue levothyroxine (8) Morbid obesity: Plan: -BMI of 53.6, diet and exercise to be encouraged, heart healthy/diabetic diet during hospitalization -Vascular access difficult due to body habitus, concern if patient requires multiple readmissions that she would benefit from more permanent line -Encouraged diet rich in protein, such as lean meats, dairy products, weight loss -Further follow-up with PCP (9) RIMA (obstructive sleep apnea): Plan: -CPAP at bedtime, and compliant History of nocturnal hypoxia, currently patient tells me she has oxygen at home but not using it Will obtain nocturnal study now, and 2 step as well Recommend official sleep study DVT PPx: - karey, scds CODE: Full code Dispo: From home, likely DC [email or web address] Admission and Anticipated Discharge Date Admission Date: December 14, 2020 Subjective Patient seen in follow-up of metabolic encephalopathy, hypoglycemia She is currently sitting up in bed, in no acute distress, says that she feels well, she is answering questions appropriately Denies any chest pain, shortness of breath Also denies any abdominal pain, nausea vomiting Nocturnal study was ordered last night however was discontinued, will repeat tonight Patient history of chronic oxygen use, but now tells me she does not use any, she may also need 2 step Review of Systems Review of Systems: All systems reviewed & are unremarkable except as noted in Subjective Physical Exam Physical Exam: General: morbidly obese F in NAD Head: Normocephalic, atraumatic ENT: PERRL, EOMI, no pharyngeal exudate Chest: Somewhat decreased breath sounds, however overall seems to be clear to auscultation, no wheezing rhonchi crackles noted, saturating 94% on room air Cardiac: Regular rate and rhythm, no murmur, unable to assess for JVD due to body habitus, normal peripheral pulses, good capillary refill Abdominal: + Morbidly obese, NABS x 4 quadrants, soft, nondistended, nontender to palpation, no rebound or guarding Extremities: Normal inspection, no peripheral edema or erythema, calves nontender to palpation Neuro: Awake, alert and oriented x3, answering questions appropriately, no facial asymmetry, speech fluent, moving extremities Results & Data Results & Data ([facility]) Vital Signs (Past 12 Hours) Vital Signs Temp Pulse Pulse Pulse Resp BP BP 12/15/20 10:54 36.7 C 75 22 128/75 12/15/20 09:27 73 120/76 12/15/20 09:25 74 120/76 12/15/20 08:00 78 12/15/20 07:02 37.0 C 77 20 94/58 L 12/15/20 03:55 36.9 C 85 18 95/57 L 12/15/20 00:54 78 12/15/20 00:38 81 Pulse Ox Pulse Ox 12/15/20 10:54 99 12/15/20 09:27 12/15/20 09:25 93 12/15/20 08:00 12/15/20 07:02 91 12/15/20 03:55 93 12/15/20 00:54 96 12/15/20 00:38 Laboratory Results 12/15/20 12/15/20 12/15/20 Range/Units 07:49 06:34 06:34 WBC 9.39 (4.8-10.8) K/uL RBC 3.01 L (4.2-5.4) M/uL Hgb 11.0 L (12.0-16.0) g/dL Hct 33.5 L (37-47) % MCV 111.3 H (80-100) fL MCH 36.5 H (25-34) pg MCHC 32.8 (32-36) g/dL RDW Std Deviation 66.7 H (36.4-46.3) fL RDW Coeff of Mari 16.7 H (11.5-14.5) % Plt Count 109 L (130-400) K/uL MPV 9.0 (7.4-10.4) fL Immature Gran % (Auto) % Neut % (Auto) % Lymph % (Auto) % Camp % (Auto) % Eos % (Auto) % Baso % (Auto) % Neut # (Auto) (1.4-6.5) K/uL Lymph # (Auto) (1.2-3.4) K/uL Camp # (Auto) (0.11-0.59) K/uL Eos # (Auto) (0-0.5) K/uL Baso # (Auto) (0-0.2) K/uL Immature Gran # (Auto) (0.00-0.02) K/uL Anisocytosis Macrocytosis Echinocytes PT (9.0-12.0) Seconds INR (0.9-1.1) APTT (21.0-31.0) Seconds PTT Ratio ABG pH (7.35-7.45) ABG pCO2 (35-46) mmHg ABG pO2 (80-95) mmHg ABG HCO3 (19-24) mmol/L ABG O2 Saturation (90-95) % ABG Base Excess (-9-1.8) mEq/L Kermit Test (Pos) Barometric Pressure mm/Hg Oxygen Given Sodium 143 (136-145) mmol/L Potassium 3.2 L (3.5-5.1) mmol/L Chloride 109 H (98-107) mmol/L Carbon Dioxide 27 (21-32) mmol/L Anion Gap 7.0 (3-11) BUN 7 (7-18) mg/dl Creatinine 1.07 (0.6-1.2) mg/dl Est Cr Clr Drug Dosing 94.8 ml/min Est GFR ( Amer) 67.2 ml/min Est GFR (Non-Af Amer) 58.0 ml/min BUN/Creatinine Ratio 6.3 L (10-20) Glucose 116 H (70-99) mg/dl POC Glucose 115 H (70-99) mg/dl Lactate (0.4-2.0) mmol/L Calcium 7.9 L (8.5-10.1) mg/dl Phosphorus 2.2 L (2.5-4.9) mg/dl Magnesium 1.7 L (1.8-2.4) mg/dl Total Bilirubin 2.0 H (0.2-1) mg/dl AST 33 (15-37) U/L ALT 20 (12-78) U/L Alkaline Phosphatase 183 H (45-117) U/L Ammonia (11-32) umol/L Troponin I (0-0.045) ng/ml NT-Pro-B Natriuret Pep (0-900) pg/ml Total Protein 5.3 L (6.4-8.2) gm/dl Albumin 2.0 L (3.4-5.0) gm/dl Globulin 3.3 (2.5-4.0) gm/dl Albumin/Globulin Ratio 0.6 L (0.9-2) Procalcitonin (0-0.5) ng/ml Urine Color Urine Appearance (Clear) Urine pH (4.5-7.5) Ur Specific [place] (1.000-1.030) Urine Protein (Negative) Urine Glucose (UA) (Negative) Urine Ketones (Negative) Urine Blood (Negative) Urine Nitrite (Negative) Urine Bilirubin (Negative) Urine Urobilinogen (Negative) Ur Leukocyte Esterase (Negative) Urine WBC (Auto) (0-5) /hpf Urine RBC (Auto) (0-4) /hpf U Hyaline Cast (Auto) (0-5) /lpf U Epithel Cells (Auto) (0-5) /lpf Urine Bacteria (Auto) (Negative) Stool Occult Bld Scrn (Negative) Urine Opiates Screen (Neg) U Codeine Confrm GC/MS Ur Morphine (GC/MS) Ur Hydrocodone (GC/MS) Ur Norhydrocodone Ur Noroxycodone Urine Oxycodone (GC/MS) U Oxymorphone GC/MS Ur Methadone, Qual (Neg) Ur Hydromorphone (GC/MS) Urine Barbiturates (Neg) Ur Phencyclidine (PCP) (Neg) U Amphetamin/Meth Scrn (Neg) MDMA (Ecstasy) Screen (Neg) U Benzodiazepines Scrn (Neg) Ur Cocaine Metabolite (Neg) U Marijuana (THC) Screen (Neg) Drug Screen Comment Ethyl Alcohol mg/dL (0-3) mg/dl COVID-19 Eval Order SARS-CoV-2 (PCR) (Negative) Blood Type Antibody Screen 12/15/20 12/15/20 12/15/20 Range/Units 04:09 02:34 00:00 WBC (4.8-10.8) K/uL RBC (4.2-5.4) M/uL Hgb (12.0-16.0) g/dL Hct (37-47) % MCV (80-100) fL MCH (25-34) pg MCHC (32-36) g/dL RDW Std Deviation (36.4-46.3) fL RDW Coeff of Mari (11.5-14.5) % Plt Count (130-400) K/uL MPV (7.4-10.4) fL Immature Gran % (Auto) % Neut % (Auto) % Lymph % (Auto) % Camp % (Auto) % Eos % (Auto) % Baso % (Auto) % Neut # (Auto) (1.4-6.5) K/uL Lymph # (Auto) (1.2-3.4) K/uL Camp # (Auto) (0.11-0.59) K/uL Eos # (Auto) (0-0.5) K/uL Baso # (Auto) (0-0.2) K/uL Immature Gran # (Auto) (0.00-0.02) K/uL Anisocytosis Macrocytosis Echinocytes PT (9.0-12.0) Seconds INR (0.9-1.1) APTT (21.0-31.0) Seconds PTT Ratio ABG pH (7.35-7.45) ABG pCO2 (35-46) mmHg ABG pO2 (80-95) mmHg ABG HCO3 (19-24) mmol/L ABG O2 Saturation (90-95) % ABG Base Excess (-9-1.8) mEq/L Kermit Test (Pos) Barometric Pressure mm/Hg Oxygen Given Sodium (136-145) mmol/L Potassium (3.5-5.1) mmol/L Chloride (98-107) mmol/L Carbon Dioxide (21-32) mmol/L Anion Gap (3-11) BUN (7-18) mg/dl Creatinine (0.6-1.2) mg/dl Est Cr Clr Drug Dosing ml/min Est GFR ( Amer) ml/min Est GFR (Non-Af Amer) ml/min BUN/Creatinine Ratio (10-20) Glucose (70-99) mg/dl POC Glucose 142 H 253 H (70-99) mg/dl Lactate (0.4-2.0) mmol/L Calcium (8.5-10.1) mg/dl Phosphorus (2.5-4.9) mg/dl Magnesium (1.8-2.4) mg/dl Total Bilirubin (0.2-1) mg/dl AST (15-37) U/L ALT (12-78) U/L Alkaline Phosphatase (45-117) U/L Ammonia (11-32) umol/L Troponin I (0-0.045) ng/ml NT-Pro-B Natriuret Pep (0-900) pg/ml Total Protein (6.4-8.2) gm/dl Albumin (3.4-5.0) gm/dl Globulin (2.5-4.0) gm/dl Albumin/Globulin Ratio (0.9-2) Procalcitonin (0-0.5) ng/ml Urine Color Urine Appearance (Clear) Urine pH (4.5-7.5) Ur Specific [place] (1.000-1.030) Urine Protein (Negative) Urine Glucose (UA) (Negative) Urine Ketones (Negative) Urine Blood (Negative) Urine Nitrite (Negative) Urine Bilirubin (Negative) Urine Urobilinogen (Negative) Ur Leukocyte Esterase (Negative) Urine WBC (Auto) (0-5) /hpf Urine RBC (Auto) (0-4) /hpf U Hyaline Cast (Auto) (0-5) /lpf U Epithel Cells (Auto) (0-5) /lpf Urine Bacteria (Auto) (Negative) Stool Occult Bld Scrn Negative (Negative) Urine Opiates Screen (Neg) U Codeine Confrm GC/MS Ur Morphine (GC/MS) Ur Hydrocodone (GC/MS) Ur Norhydrocodone Ur Noroxycodone Urine Oxycodone (GC/MS) U Oxymorphone GC/MS Ur Methadone, Qual (Neg) Ur Hydromorphone (GC/MS) Urine Barbiturates (Neg) Ur Phencyclidine (PCP) (Neg) U Amphetamin/Meth Scrn (Neg) MDMA (Ecstasy) Screen (Neg) U Benzodiazepines Scrn (Neg) Ur Cocaine Metabolite (Neg) U Marijuana (THC) Screen (Neg) Drug Screen Comment Ethyl Alcohol mg/dL (0-3) mg/dl COVID-19 Eval Order SARS-CoV-2 (PCR) (Negative) Blood Type Antibody Screen 12/14/20 12/14/20 12/14/20 Range/Units 23:43 20:02 16:41 WBC (4.8-10.8) K/uL RBC (4.2-5.4) M/uL Hgb (12.0-16.0) g/dL Hct (37-47) % MCV (80-100) fL MCH (25-34) pg MCHC (32-36) g/dL RDW Std Deviation (36.4-46.3) fL RDW Coeff of Mari (11.5-14.5) % Plt Count (130-400) K/uL MPV (7.4-10.4) fL Immature Gran % (Auto) % Neut % (Auto) % Lymph % (Auto) % Camp % (Auto) % Eos % (Auto) % Baso % (Auto) % Neut # (Auto) (1.4-6.5) K/uL Lymph # (Auto) (1.2-3.4) K/uL Camp # (Auto) (0.11-0.59) K/uL Eos # (Auto) (0-0.5) K/uL Baso # (Auto) (0-0.2) K/uL Immature Gran # (Auto) (0.00-0.02) K/uL Anisocytosis Macrocytosis Echinocytes PT (9.0-12.0) Seconds INR (0.9-1.1) APTT (21.0-31.0) Seconds PTT Ratio ABG pH (7.35-7.45) ABG pCO2 (35-46) mmHg ABG pO2 (80-95) mmHg ABG HCO3 (19-24) mmol/L ABG O2 Saturation (90-95) % ABG Base Excess (-9-1.8) mEq/L Kermit Test (Pos) Barometric Pressure mm/Hg Oxygen Given Sodium (136-145) mmol/L Potassium (3.5-5.1) mmol/L Chloride (98-107) mmol/L Carbon Dioxide (21-32) mmol/L Anion Gap (3-11) BUN (7-18) mg/dl Creatinine (0.6-1.2) mg/dl Est Cr Clr Drug Dosing ml/min Est GFR ( Amer) ml/min Est GFR (Non-Af Amer) ml/min BUN/Creatinine Ratio (10-20) Glucose (70-99) mg/dl POC Glucose 116 H 73 73 (70-99) mg/dl Lactate (0.4-2.0) mmol/L Calcium (8.5-10.1) mg/dl Phosphorus (2.5-4.9) mg/dl Magnesium (1.8-2.4) mg/dl Total Bilirubin (0.2-1) mg/dl AST (15-37) U/L ALT (12-78) U/L Alkaline Phosphatase (45-117) U/L Ammonia (11-32) umol/L Troponin I (0-0.045) ng/ml NT-Pro-B Natriuret Pep (0-900) pg/ml Total Protein (6.4-8.2) gm/dl Albumin (3.4-5.0) gm/dl Globulin (2.5-4.0) gm/dl Albumin/Globulin Ratio (0.9-2) Procalcitonin (0-0.5) ng/ml Urine Color Urine Appearance (Clear) Urine pH (4.5-7.5) Ur Specific [place] (1.000-1.030) Urine Protein (Negative) Urine Glucose (UA) (Negative) Urine Ketones (Negative) Urine Blood (Negative) Urine Nitrite (Negative) Urine Bilirubin (Negative) Urine Urobilinogen (Negative) Ur Leukocyte Esterase (Negative) Urine WBC (Auto) (0-5) /hpf Urine RBC (Auto) (0-4) /hpf U Hyaline Cast (Auto) (0-5) /lpf U Epithel Cells (Auto) (0-5) /lpf Urine Bacteria (Auto) (Negative) Stool Occult Bld Scrn (Negative) Urine Opiates Screen (Neg) U Codeine Confrm GC/MS Ur Morphine (GC/MS) Ur Hydrocodone (GC/MS) Ur Norhydrocodone Ur Noroxycodone Urine Oxycodone (GC/MS) U Oxymorphone GC/MS Ur Methadone, Qual (Neg) Ur Hydromorphone (GC/MS) Urine Barbiturates (Neg) Ur Phencyclidine (PCP) (Neg) U Amphetamin/Meth Scrn (Neg) MDMA (Ecstasy) Screen (Neg) U Benzodiazepines Scrn (Neg) Ur Cocaine Metabolite (Neg) U Marijuana (THC) Screen (Neg) Drug Screen Comment Ethyl Alcohol mg/dL (0-3) mg/dl COVID-19 Eval Order SARS-CoV-2 (PCR) (Negative) Blood Type Antibody Screen 12/14/20 12/14/20 12/14/20 Range/Units 16:00 16:00 16:00 WBC (4.8-10.8) K/uL RBC (4.2-5.4) M/uL Hgb (12.0-16.0) g/dL Hct (37-47) % MCV (80-100) fL MCH (25-34) pg MCHC (32-36) g/dL RDW Std Deviation (36.4-46.3) fL RDW Coeff of Mari (11.5-14.5) % Plt Count (130-400) K/uL MPV (7.4-10.4) fL Immature Gran % (Auto) % Neut % (Auto) % Lymph % (Auto) % Camp % (Auto) % Eos % (Auto) % Baso % (Auto) % Neut # (Auto) (1.4-6.5) K/uL Lymph # (Auto) (1.2-3.4) K/uL Camp # (Auto) (0.11-0.59) K/uL Eos # (Auto) (0-0.5) K/uL Baso # (Auto) (0-0.2) K/uL Immature Gran # (Auto) (0.00-0.02) K/uL Anisocytosis Macrocytosis Echinocytes PT (9.0-12.0) Seconds INR (0.9-1.1) APTT (21.0-31.0) Seconds PTT Ratio ABG pH (7.35-7.45) ABG pCO2 (35-46) mmHg ABG pO2 (80-95) mmHg ABG HCO3 (19-24) mmol/L ABG O2 Saturation (90-95) % ABG Base Excess (-9-1.8) mEq/L Kermit Test (Pos) Barometric Pressure mm/Hg Oxygen Given Sodium (136-145) mmol/L Potassium (3.5-5.1) mmol/L Chloride (98-107) mmol/L Carbon Dioxide (21-32) mmol/L Anion Gap (3-11) BUN (7-18) mg/dl Creatinine (0.6-1.2) mg/dl Est Cr Clr Drug Dosing ml/min Est GFR ( Amer) ml/min Est GFR (Non-Af Amer) ml/min BUN/Creatinine Ratio (10-20) Glucose (70-99) mg/dl POC Glucose (70-99) mg/dl Lactate (0.4-2.0) mmol/L Calcium (8.5-10.1) mg/dl Phosphorus (2.5-4.9) mg/dl Magnesium (1.8-2.4) mg/dl Total Bilirubin (0.2-1) mg/dl AST (15-37) U/L ALT (12-78) U/L Alkaline Phosphatase (45-117) U/L Ammonia (11-32) umol/L Troponin I (0-0.045) ng/ml NT-Pro-B Natriuret Pep (0-900) pg/ml Total Protein (6.4-8.2) gm/dl Albumin (3.4-5.0) gm/dl Globulin (2.5-4.0) gm/dl Albumin/Globulin Ratio (0.9-2) Procalcitonin (0-0.5) ng/ml Urine Color Dark Yellow Urine Appearance Clear (Clear) Urine pH 6.0 (4.5-7.5) Ur Specific [place] 1.020 (1.000-1.030) Urine Protein Negative (Negative) Urine Glucose (UA) Negative (Negative) Urine Ketones Trace H (Negative) Urine Blood Negative (Negative) Urine Nitrite Negative (Negative) Urine Bilirubin 1+ H (Negative) Urine Urobilinogen Negative (Negative) Ur Leukocyte Esterase Trace H (Negative) Urine WBC (Auto) 5-10 H (0-5) /hpf Urine RBC (Auto) 5-10 H (0-4) /hpf U Hyaline Cast (Auto) 10-30 H (0-5) /lpf U Epithel Cells (Auto) >30 H (0-5) /lpf Urine Bacteria (Auto) Negative (Negative) Stool Occult Bld Scrn (Negative) Urine Opiates Screen Pos H (Neg) U Codeine Confrm GC/MS Pending Ur Morphine (GC/MS) Pending Ur Hydrocodone (GC/MS) Pending Ur Norhydrocodone Pending Ur Noroxycodone Pending Urine Oxycodone (GC/MS) Pending U Oxymorphone GC/MS Pending Ur Methadone, Qual Neg (Neg) Ur Hydromorphone (GC/MS) Pending Urine Barbiturates Neg (Neg) Ur Phencyclidine (PCP) Neg (Neg) U Amphetamin/Meth Scrn Neg (Neg) MDMA (Ecstasy) Screen Neg (Neg) U Benzodiazepines Scrn Neg (Neg) Ur Cocaine Metabolite Neg (Neg) U Marijuana (THC) Screen Neg (Neg) Drug Screen Comment Pending Ethyl Alcohol mg/dL (0-3) mg/dl COVID-19 Eval Order SARS-CoV-2 (PCR) (Negative) Blood Type Antibody Screen 12/14/20 12/14/20 12/14/20 Range/Units 15:55 15:02 14:33 WBC (4.8-10.8) K/uL RBC (4.2-5.4) M/uL Hgb (12.0-16.0) g/dL Hct (37-47) % MCV (80-100) fL MCH (25-34) pg MCHC (32-36) g/dL RDW Std Deviation (36.4-46.3) fL RDW Coeff of Mari (11.5-14.5) % Plt Count (130-400) K/uL MPV (7.4-10.4) fL Immature Gran % (Auto) % Neut % (Auto) % Lymph % (Auto) % Camp % (Auto) % Eos % (Auto) % Baso % (Auto) % Neut # (Auto) (1.4-6.5) K/uL Lymph # (Auto) (1.2-3.4) K/uL Camp # (Auto) (0.11-0.59) K/uL Eos # (Auto) (0-0.5) K/uL Baso # (Auto) (0-0.2) K/uL Immature Gran # (Auto) (0.00-0.02) K/uL Anisocytosis Macrocytosis Echinocytes PT (9.0-12.0) Seconds INR (0.9-1.1) APTT (21.0-31.0) Seconds PTT Ratio ABG pH 7.45 (7.35-7.45) ABG pCO2 39 (35-46) mmHg ABG pO2 74 L (80-95) mmHg ABG HCO3 26 H (19-24) mmol/L ABG O2 Saturation 95.7 H (90-95) % ABG Base Excess 1.9 H (-9-1.8) mEq/L Kermit Test Pos (Pos) Barometric Pressure 729.7 mm/Hg Oxygen Given Room Air Sodium (136-145) mmol/L Potassium (3.5-5.1) mmol/L Chloride (98-107) mmol/L Carbon Dioxide (21-32) mmol/L Anion Gap (3-11) BUN (7-18) mg/dl Creatinine (0.6-1.2) mg/dl Est Cr Clr Drug Dosing ml/min Est GFR ( Amer) ml/min Est GFR (Non-Af Amer) ml/min BUN/Creatinine Ratio (10-20) Glucose (70-99) mg/dl POC Glucose 76 48 L* (70-99) mg/dl Lactate (0.4-2.0) mmol/L Calcium (8.5-10.1) mg/dl Phosphorus (2.5-4.9) mg/dl Magnesium (1.8-2.4) mg/dl Total Bilirubin (0.2-1) mg/dl AST (15-37) U/L ALT (12-78) U/L Alkaline Phosphatase (45-117) U/L Ammonia (11-32) umol/L Troponin I (0-0.045) ng/ml NT-Pro-B Natriuret Pep (0-900) pg/ml Total Protein (6.4-8.2) gm/dl Albumin (3.4-5.0) gm/dl Globulin (2.5-4.0) gm/dl Albumin/Globulin Ratio (0.9-2) Procalcitonin (0-0.5) ng/ml Urine Color Urine Appearance (Clear) Urine pH (4.5-7.5) Ur Specific [place] (1.000-1.030) Urine Protein (Negative) Urine Glucose (UA) (Negative) Urine Ketones (Negative) Urine Blood (Negative) Urine Nitrite (Negative) Urine Bilirubin (Negative) Urine Urobilinogen (Negative) Ur Leukocyte Esterase (Negative) Urine WBC (Auto) (0-5) /hpf Urine RBC (Auto) (0-4) /hpf U Hyaline Cast (Auto) (0-5) /lpf U Epithel Cells (Auto) (0-5) /lpf Urine Bacteria (Auto) (Negative) Stool Occult Bld Scrn (Negative) Urine Opiates Screen (Neg) U Codeine Confrm GC/MS Ur Morphine (GC/MS) Ur Hydrocodone (GC/MS) Ur Norhydrocodone Ur Noroxycodone Urine Oxycodone (GC/MS) U Oxymorphone GC/MS Ur Methadone, Qual (Neg) Ur Hydromorphone (GC/MS) Urine Barbiturates (Neg) Ur Phencyclidine (PCP) (Neg) U Amphetamin/Meth Scrn (Neg) MDMA (Ecstasy) Screen (Neg) U Benzodiazepines Scrn (Neg) Ur Cocaine Metabolite (Neg) U Marijuana (THC) Screen (Neg) Drug Screen Comment Ethyl Alcohol mg/dL (0-3) mg/dl COVID-19 Eval Order SARS-CoV-2 (PCR) (Negative) Blood Type Antibody Screen 12/14/20 12/14/20 12/14/20 Range/Units 14:13 13:25 13:09 WBC (4.8-10.8) K/uL RBC (4.2-5.4) M/uL Hgb (12.0-16.0) g/dL Hct (37-47) % MCV (80-100) fL MCH (25-34) pg MCHC (32-36) g/dL RDW Std Deviation (36.4-46.3) fL RDW Coeff of Mari (11.5-14.5) % Plt Count (130-400) K/uL MPV (7.4-10.4) fL Immature Gran % (Auto) % Neut % (Auto) % Lymph % (Auto) % Camp % (Auto) % Eos % (Auto) % Baso % (Auto) % Neut # (Auto) (1.4-6.5) K/uL Lymph # (Auto) (1.2-3.4) K/uL Camp # (Auto) (0.11-0.59) K/uL Eos # (Auto) (0-0.5) K/uL Baso # (Auto) (0-0.2) K/uL Immature Gran # (Auto) (0.00-0.02) K/uL Anisocytosis Macrocytosis Echinocytes PT (9.0-12.0) Seconds INR (0.9-1.1) APTT (21.0-31.0) Seconds PTT Ratio ABG pH (7.35-7.45) ABG pCO2 (35-46) mmHg ABG pO2 (80-95) mmHg ABG HCO3 (19-24) mmol/L ABG O2 Saturation (90-95) % ABG Base Excess (-9-1.8) mEq/L Kermit Test (Pos) Barometric Pressure mm/Hg Oxygen Given Sodium (136-145) mmol/L Potassium (3.5-5.1) mmol/L Chloride (98-107) mmol/L Carbon Dioxide (21-32) mmol/L Anion Gap (3-11) BUN (7-18) mg/dl Creatinine (0.6-1.2) mg/dl Est Cr Clr Drug Dosing ml/min Est GFR ( Amer) ml/min Est GFR (Non-Af Amer) ml/min BUN/Creatinine Ratio (10-20) Glucose (70-99) mg/dl POC Glucose 51 L* 57 L* (70-99) mg/dl Lactate (0.4-2.0) mmol/L Calcium (8.5-10.1) mg/dl Phosphorus (2.5-4.9) mg/dl Magnesium (1.8-2.4) mg/dl Total Bilirubin (0.2-1) mg/dl AST (15-37) U/L ALT (12-78) U/L Alkaline Phosphatase (45-117) U/L Ammonia (11-32) umol/L Troponin I (0-0.045) ng/ml NT-Pro-B Natriuret Pep (0-900) pg/ml Total Protein (6.4-8.2) gm/dl Albumin (3.4-5.0) gm/dl Globulin (2.5-4.0) gm/dl Albumin/Globulin Ratio (0.9-2) Procalcitonin (0-0.5) ng/ml Urine Color Urine Appearance (Clear) Urine pH (4.5-7.5) Ur Specific [place] (1.000-1.030) Urine Protein (Negative) Urine Glucose (UA) (Negative) Urine Ketones (Negative) Urine Blood (Negative) Urine Nitrite (Negative) Urine Bilirubin (Negative) Urine Urobilinogen (Negative) Ur Leukocyte Esterase (Negative) Urine WBC (Auto) (0-5) /hpf Urine RBC (Auto) (0-4) /hpf U Hyaline Cast (Auto) (0-5) /lpf U Epithel Cells (Auto) (0-5) /lpf Urine Bacteria (Auto) (Negative) Stool Occult Bld Scrn (Negative) Urine Opiates Screen (Neg) U Codeine Confrm GC/MS Ur Morphine (GC/MS) Ur Hydrocodone (GC/MS) Ur Norhydrocodone Ur Noroxycodone Urine Oxycodone (GC/MS) U Oxymorphone GC/MS Ur Methadone, Qual (Neg) Ur Hydromorphone (GC/MS) Urine Barbiturates (Neg) Ur Phencyclidine (PCP) (Neg) U Amphetamin/Meth Scrn (Neg) MDMA (Ecstasy) Screen (Neg) U Benzodiazepines Scrn (Neg) Ur Cocaine Metabolite (Neg) U Marijuana (THC) Screen (Neg) Drug Screen Comment Ethyl Alcohol mg/dL (0-3) mg/dl COVID-19 Eval Order SARS-CoV-2 (PCR) (Negative) Blood Type A Positive Antibody Screen NEGATIVE 12/14/20 12/14/20 12/14/20 Range/Units 11:53 11:53 11:53 WBC (4.8-10.8) K/uL RBC (4.2-5.4) M/uL Hgb (12.0-16.0) g/dL Hct (37-47) % MCV (80-100) fL MCH (25-34) pg MCHC (32-36) g/dL RDW Std Deviation (36.4-46.3) fL RDW Coeff of Mari (11.5-14.5) % Plt Count (130-400) K/uL MPV (7.4-10.4) fL Immature Gran % (Auto) % Neut % (Auto) % Lymph % (Auto) % Camp % (Auto) % Eos % (Auto) % Baso % (Auto) % Neut # (Auto) (1.4-6.5) K/uL Lymph # (Auto) (1.2-3.4) K/uL Camp # (Auto) (0.11-0.59) K/uL Eos # (Auto) (0-0.5) K/uL Baso # (Auto) (0-0.2) K/uL Immature Gran # (Auto) (0.00-0.02) K/uL Anisocytosis Macrocytosis Echinocytes PT (9.0-12.0) Seconds INR (0.9-1.1) APTT (21.0-31.0) Seconds PTT Ratio ABG pH (7.35-7.45) ABG pCO2 (35-46) mmHg ABG pO2 (80-95) mmHg ABG HCO3 (19-24) mmol/L ABG O2 Saturation (90-95) % ABG Base Excess (-9-1.8) mEq/L Kermit Test (Pos) Barometric Pressure mm/Hg Oxygen Given Sodium (136-145) mmol/L Potassium (3.5-5.1) mmol/L Chloride (98-107) mmol/L Carbon Dioxide (21-32) mmol/L Anion Gap (3-11) BUN (7-18) mg/dl Creatinine (0.6-1.2) mg/dl Est Cr Clr Drug Dosing ml/min Est GFR ( Amer) ml/min Est GFR (Non-Af Amer) ml/min BUN/Creatinine Ratio (10-20) Glucose (70-99) mg/dl POC Glucose (70-99) mg/dl Lactate (0.4-2.0) mmol/L Calcium (8.5-10.1) mg/dl Phosphorus (2.5-4.9) mg/dl Magnesium (1.8-2.4) mg/dl Total Bilirubin (0.2-1) mg/dl AST (15-37) U/L ALT (12-78) U/L Alkaline Phosphatase (45-117) U/L Ammonia (11-32) umol/L Troponin I (0-0.045) ng/ml NT-Pro-B Natriuret Pep 306 (0-900) pg/ml Total Protein (6.4-8.2) gm/dl Albumin (3.4-5.0) gm/dl Globulin (2.5-4.0) gm/dl Albumin/Globulin Ratio (0.9-2) Procalcitonin 0.13 (0-0.5) ng/ml Urine Color Urine Appearance (Clear) Urine pH (4.5-7.5) Ur Specific [place] (1.000-1.030) Urine Protein (Negative) Urine Glucose (UA) (Negative) Urine Ketones (Negative) Urine Blood (Negative) Urine Nitrite (Negative) Urine Bilirubin (Negative) Urine Urobilinogen (Negative) Ur Leukocyte Esterase (Negative) Urine WBC (Auto) (0-5) /hpf Urine RBC (Auto) (0-4) /hpf U Hyaline Cast (Auto) (0-5) /lpf U Epithel Cells (Auto) (0-5) /lpf Urine Bacteria (Auto) (Negative) Stool Occult Bld Scrn (Negative) Urine Opiates Screen (Neg) U Codeine Confrm GC/MS Ur Morphine (GC/MS) Ur Hydrocodone (GC/MS) Ur Norhydrocodone Ur Noroxycodone Urine Oxycodone (GC/MS) U Oxymorphone GC/MS Ur Methadone, Qual (Neg) Ur Hydromorphone (GC/MS) Urine Barbiturates (Neg) Ur Phencyclidine (PCP) (Neg) U Amphetamin/Meth Scrn (Neg) MDMA (Ecstasy) Screen (Neg) U Benzodiazepines Scrn (Neg) Ur Cocaine Metabolite (Neg) U Marijuana (THC) Screen (Neg) Drug Screen Comment Ethyl Alcohol mg/dL < 3.0 (0-3) mg/dl COVID-19 Eval Order SARS-CoV-2 (PCR) (Negative) Blood Type Antibody Screen 12/14/20 12/14/20 12/14/20 Range/Units 11:53 11:53 11:53 WBC (4.8-10.8) K/uL RBC (4.2-5.4) M/uL Hgb (12.0-16.0) g/dL Hct (37-47) % MCV (80-100) fL MCH (25-34) pg MCHC (32-36) g/dL RDW Std Deviation (36.4-46.3) fL RDW Coeff of Mari (11.5-14.5) % Plt Count (130-400) K/uL MPV (7.4-10.4) fL Immature Gran % (Auto) % Neut % (Auto) % Lymph % (Auto) % Camp % (Auto) % Eos % (Auto) % Baso % (Auto) % Neut # (Auto) (1.4-6.5) K/uL Lymph # (Auto) (1.2-3.4) K/uL Camp # (Auto) (0.11-0.59) K/uL Eos # (Auto) (0-0.5) K/uL Baso # (Auto) (0-0.2) K/uL Immature Gran # (Auto) (0.00-0.02) K/uL Anisocytosis Macrocytosis Echinocytes PT (9.0-12.0) Seconds INR (0.9-1.1) APTT (21.0-31.0) Seconds PTT Ratio ABG pH (7.35-7.45) ABG pCO2 (35-46) mmHg ABG pO2 (80-95) mmHg ABG HCO3 (19-24) mmol/L ABG O2 Saturation (90-95) % ABG Base Excess (-9-1.8) mEq/L Kermit Test (Pos) Barometric Pressure mm/Hg Oxygen Given Sodium 144 (136-145) mmol/L Potassium 3.1 L (3.5-5.1) mmol/L Chloride 111 H (98-107) mmol/L Carbon Dioxide 28 (21-32) mmol/L Anion Gap 5.0 (3-11) BUN 9 (7-18) mg/dl Creatinine 0.90 (0.6-1.2) mg/dl Est Cr Clr Drug Dosing 112.8 ml/min Est GFR ( Amer) 82.8 ml/min Est GFR (Non-Af Amer) 71.5 ml/min BUN/Creatinine Ratio 10.5 (10-20) Glucose 62 L (70-99) mg/dl POC Glucose (70-99) mg/dl Lactate 1.1 (0.4-2.0) mmol/L Calcium 7.5 L (8.5-10.1) mg/dl Phosphorus (2.5-4.9) mg/dl Magnesium 1.6 L (1.8-2.4) mg/dl Total Bilirubin 1.5 H (0.2-1) mg/dl AST 34 (15-37) U/L ALT 21 (12-78) U/L Alkaline Phosphatase 174 H (45-117) U/L Ammonia 41.0 H (11-32) umol/L Troponin I < 0.015 (0-0.045) ng/ml NT-Pro-B Natriuret Pep (0-900) pg/ml Total Protein 5.4 L (6.4-8.2) gm/dl Albumin 1.9 L (3.4-5.0) gm/dl Globulin 3.5 (2.5-4.0) gm/dl Albumin/Globulin Ratio 0.5 L (0.9-2) Procalcitonin (0-0.5) ng/ml Urine Color Urine Appearance (Clear) Urine pH (4.5-7.5) Ur Specific [place] (1.000-1.030) Urine Protein (Negative) Urine Glucose (UA) (Negative) Urine Ketones (Negative) Urine Blood (Negative) Urine Nitrite (Negative) Urine Bilirubin (Negative) Urine Urobilinogen (Negative) Ur Leukocyte Esterase (Negative) Urine WBC (Auto) (0-5) /hpf Urine RBC (Auto) (0-4) /hpf U Hyaline Cast (Auto) (0-5) /lpf U Epithel Cells (Auto) (0-5) /lpf Urine Bacteria (Auto) (Negative) Stool Occult Bld Scrn (Negative) Urine Opiates Screen (Neg) U Codeine Confrm GC/MS Ur Morphine (GC/MS) Ur Hydrocodone (GC/MS) Ur Norhydrocodone Ur Noroxycodone Urine Oxycodone (GC/MS) U Oxymorphone GC/MS Ur Methadone, Qual (Neg) Ur Hydromorphone (GC/MS) Urine Barbiturates (Neg) Ur Phencyclidine (PCP) (Neg) U Amphetamin/Meth Scrn (Neg) MDMA (Ecstasy) Screen (Neg) U Benzodiazepines Scrn (Neg) Ur Cocaine Metabolite (Neg) U Marijuana (THC) Screen (Neg) Drug Screen Comment Ethyl Alcohol mg/dL (0-3) mg/dl COVID-19 Eval Order SARS-CoV-2 (PCR) (Negative) Blood Type Antibody Screen 12/14/20 12/14/20 12/14/20 Range/Units 11:53 11:53 11:44 WBC 7.70 (4.8-10.8) K/uL RBC 2.44 L (4.2-5.4) M/uL Hgb 8.9 L (12.0-16.0) g/dL Hct 27.5 L (37-47) % MCV 112.7 H (80-100) fL MCH 36.5 H (25-34) pg MCHC 32.4 (32-36) g/dL RDW Std Deviation 69.2 H (36.4-46.3) fL RDW Coeff of Mari 16.8 H (11.5-14.5) % Plt Count 113 L (130-400) K/uL MPV 9.4 (7.4-10.4) fL Immature Gran % (Auto) 0.4 % Neut % (Auto) 62.4 % Lymph % (Auto) 24.7 % Camp % (Auto) 10.3 % Eos % (Auto) 1.9 % Baso % (Auto) 0.3 % Neut # (Auto) 4.81 (1.4-6.5) K/uL Lymph # (Auto) 1.90 (1.2-3.4) K/uL Camp # (Auto) 0.79 H (0.11-0.59) K/uL Eos # (Auto) 0.15 (0-0.5) K/uL Baso # (Auto) 0.02 (0-0.2) K/uL Immature Gran # (Auto) 0.03 H (0.00-0.02) K/uL Anisocytosis Present Macrocytosis Present Echinocytes 1+ PT 12.7 H (9.0-12.0) Seconds INR 1.3 H (0.9-1.1) APTT 28.2 (21.0-31.0) Seconds PTT Ratio 1.1 ABG pH (7.35-7.45) ABG pCO2 (35-46) mmHg ABG pO2 (80-95) mmHg ABG HCO3 (19-24) mmol/L ABG O2 Saturation (90-95) % ABG Base Excess (-9-1.8) mEq/L Kermit Test (Pos) Barometric Pressure mm/Hg Oxygen Given Sodium (136-145) mmol/L Potassium (3.5-5.1) mmol/L Chloride (98-107) mmol/L Carbon Dioxide (21-32) mmol/L Anion Gap (3-11) BUN (7-18) mg/dl Creatinine (0.6-1.2) mg/dl Est Cr Clr Drug Dosing ml/min Est GFR ( Amer) ml/min Est GFR (Non-Af Amer) ml/min BUN/Creatinine Ratio (10-20) Glucose (70-99) mg/dl POC Glucose (70-99) mg/dl Lactate (0.4-2.0) mmol/L Calcium (8.5-10.1) mg/dl Phosphorus (2.5-4.9) mg/dl Magnesium (1.8-2.4) mg/dl Total Bilirubin (0.2-1) mg/dl AST (15-37) U/L ALT (12-78) U/L Alkaline Phosphatase (45-117) U/L Ammonia (11-32) umol/L Troponin I (0-0.045) ng/ml NT-Pro-B Natriuret Pep (0-900) pg/ml Total Protein (6.4-8.2) gm/dl Albumin (3.4-5.0) gm/dl Globulin (2.5-4.0) gm/dl Albumin/Globulin Ratio (0.9-2) Procalcitonin (0-0.5) ng/ml Urine Color Urine Appearance (Clear) Urine pH (4.5-7.5) Ur Specific [place] (1.000-1.030) Urine Protein (Negative) Urine Glucose (UA) (Negative) Urine Ketones (Negative) Urine Blood (Negative) Urine Nitrite (Negative) Urine Bilirubin (Negative) Urine Urobilinogen (Negative) Ur Leukocyte Esterase (Negative) Urine WBC (Auto) (0-5) /hpf Urine RBC (Auto) (0-4) /hpf U Hyaline Cast (Auto) (0-5) /lpf U Epithel Cells (Auto) (0-5) /lpf Urine Bacteria (Auto) (Negative) Stool Occult Bld Scrn (Negative) Urine Opiates Screen (Neg) U Codeine Confrm GC/MS Ur Morphine (GC/MS) Ur Hydrocodone (GC/MS) Ur Norhydrocodone Ur Noroxycodone Urine Oxycodone (GC/MS) U Oxymorphone GC/MS Ur Methadone, Qual (Neg) Ur Hydromorphone (GC/MS) Urine Barbiturates (Neg) Ur Phencyclidine (PCP) (Neg) U Amphetamin/Meth Scrn (Neg) MDMA (Ecstasy) Screen (Neg) U Benzodiazepines Scrn (Neg) Ur Cocaine Metabolite (Neg) U Marijuana (THC) Screen (Neg) Drug Screen Comment Ethyl Alcohol mg/dL (0-3) mg/dl COVID-19 Eval Order SARS-CoV-2 (PCR) NEGATIVE (Negative) Blood Type Antibody Screen 12/14/20 12/14/20 Range/Units 11:44 10:43 WBC (4.8-10.8) K/uL RBC (4.2-5.4) M/uL Hgb (12.0-16.0) g/dL Hct (37-47) % MCV (80-100) fL MCH (25-34) pg MCHC (32-36) g/dL RDW Std Deviation (36.4-46.3) fL RDW Coeff of Mari (11.5-14.5) % Plt Count (130-400) K/uL MPV (7.4-10.4) fL Immature Gran % (Auto) % Neut % (Auto) % Lymph % (Auto) % Camp % (Auto) % Eos % (Auto) % Baso % (Auto) % Neut # (Auto) (1.4-6.5) K/uL Lymph # (Auto) (1.2-3.4) K/uL Camp # (Auto) (0.11-0.59) K/uL Eos # (Auto) (0-0.5) K/uL Baso # (Auto) (0-0.2) K/uL Immature Gran # (Auto) (0.00-0.02) K/uL Anisocytosis Macrocytosis Echinocytes PT (9.0-12.0) Seconds INR (0.9-1.1) APTT (21.0-31.0) Seconds PTT Ratio ABG pH (7.35-7.45) ABG pCO2 (35-46) mmHg ABG pO2 (80-95) mmHg ABG HCO3 (19-24) mmol/L ABG O2 Saturation (90-95) % ABG Base Excess (-9-1.8) mEq/L Kermit Test (Pos) Barometric Pressure mm/Hg Oxygen Given Sodium (136-145) mmol/L Potassium (3.5-5.1) mmol/L Chloride (98-107) mmol/L Carbon Dioxide (21-32) mmol/L Anion Gap (3-11) BUN (7-18) mg/dl Creatinine (0.6-1.2) mg/dl Est Cr Clr Drug Dosing ml/min Est GFR ( Amer) ml/min Est GFR (Non-Af Amer) ml/min BUN/Creatinine Ratio (10-20) Glucose (70-99) mg/dl POC Glucose 114 H (70-99) mg/dl Lactate (0.4-2.0) mmol/L Calcium (8.5-10.1) mg/dl Phosphorus (2.5-4.9) mg/dl Magnesium (1.8-2.4) mg/dl Total Bilirubin (0.2-1) mg/dl AST (15-37) U/L ALT (12-78) U/L Alkaline Phosphatase (45-117) U/L Ammonia (11-32) umol/L Troponin I (0-0.045) ng/ml NT-Pro-B Natriuret Pep (0-900) pg/ml Total Protein (6.4-8.2) gm/dl Albumin (3.4-5.0) gm/dl Globulin (2.5-4.0) gm/dl Albumin/Globulin Ratio (0.9-2) Procalcitonin (0-0.5) ng/ml Urine Color Urine Appearance (Clear) Urine pH (4.5-7.5) Ur Specific [place] (1.000-1.030) Urine Protein (Negative) Urine Glucose (UA) (Negative) Urine Ketones (Negative) Urine Blood (Negative) Urine Nitrite (Negative) Urine Bilirubin (Negative) Urine Urobilinogen (Negative) Ur Leukocyte Esterase (Negative) Urine WBC (Auto) (0-5) /hpf Urine RBC (Auto) (0-4) /hpf U Hyaline Cast (Auto) (0-5) /lpf U Epithel Cells (Auto) (0-5) /lpf Urine Bacteria (Auto) (Negative) Stool Occult Bld Scrn (Negative) Urine Opiates Screen (Neg) U Codeine Confrm GC/MS Ur Morphine (GC/MS) Ur Hydrocodone (GC/MS) Ur Norhydrocodone Ur Noroxycodone Urine Oxycodone (GC/MS) U Oxymorphone GC/MS Ur Methadone, Qual (Neg) Ur Hydromorphone (GC/MS) Urine Barbiturates (Neg) Ur Phencyclidine (PCP) (Neg) U Amphetamin/Meth Scrn (Neg) MDMA (Ecstasy) Screen (Neg) U Benzodiazepines Scrn (Neg) Ur Cocaine Metabolite (Neg) U Marijuana (THC) Screen (Neg) Drug Screen Comment Ethyl Alcohol mg/dL (0-3) mg/dl COVID-19 Eval Order Covid19 at [facility] SARS-CoV-2 (PCR) (Negative) Blood Type Antibody Screen Medications Administered Current Inpatient Medications Albuterol (Albuterol Hfa 8 Gm Inhaler) 2 puffs INH QID PRN PRN Reason: shortness of breath or wheezing Stop: 01/13/21 17:24 Carvedilol (Carvedilol 12.5 Mg Tab) 12.5 mg PO BID PAUL Stop: 01/13/21 20:59 Last Admin: 12/15/20 09:28 Dose: 12.5 mg Documented by: Dextrose (Dextrose 50% 50 Ml Syringe) 25 - 50 ml IV UD PRN; Protocol PRN Reason: Hypoglycemia Protocol Stop: 01/13/21 17:24 Duloxetine HCl (Duloxetine Hcl 60 Mg Cap) 60 mg PO BID PAUL Stop: 01/13/21 20:59 Last Admin: 12/15/20 09:10 Dose: 60 mg Documented by: Famotidine (Famotidine 20 Mg Tab) 20 mg PO BID PAUL Stop: 01/13/21 20:59 Last Admin: 12/15/20 09:10 Dose: 20 mg Documented by: Ferrous Sulfate (Ferrous Sulfate 325 Mg Tab) 325 mg PO DAILY PAUL Stop: 01/14/21 08:59 Last Admin: 12/15/20 09:11 Dose: 325 mg Documented by: Furosemide (Furosemide 20 Mg Tab) 20 mg PO TID [facility] Stop: 01/13/21 20:59 Last Admin: 12/15/20 09:10 Dose: 20 mg Documented by: Glucagon (Glucagon For Inj 1 Mg Vial) 1 mg SQ UD PRN; Protocol PRN Reason: Hypoglycemia Protocol Stop: 01/13/21 17:24 Glucose (Glucose 10 Tabs/Tube) 4 - 8 tabs PO UD PRN; Protocol PRN Reason: Hypoglycemia Protocol Stop: 01/13/21 17:24 Glucose (Glucose 40% Gel 15 Gm Tube) 15 - 30 gm PO UD PRN; Protocol PRN Reason: Hypoglycemia Protocol Stop: 01/13/21 17:24 Magnesium Sulfate/Dextrose (Magnesium Sulfate / D5w) 1 gm in 100 mls @ 50 mls/hr IV ONE ONE Stop: 12/15/20 13:23 Insulin Aspart (Insulin Aspart 100 Units/Ml 3 Ml Pen) 0 units SC ACHS [facility] Stop: 01/13/21 17:24 Last Admin: 12/15/20 09:15 Dose: 9 units Documented by: Insulin Glargine (Insulin Glargine Solostar 100 Units/Ml 3 Ml Pen) 20 units SQ DAILY [facility] Stop: 01/14/21 08:59 Last Admin: 12/15/20 09:18 Dose: 20 units Documented by: Lactulose (Lactulose Syrup 30 Gm/45 Ml Udp) 30 gm PO QID [facility] Stop: 01/13/21 17:59 Last Admin: 12/15/20 09:12 Dose: 30 gm Documented by: Levothyroxine Sodium (Levothyroxine Sodium 200 Mcg Tablet) 200 mcg PO DAILYBB [facility] Stop: 01/14/21 06:29 Last Admin: 12/15/20 06:31 Dose: 200 mcg Documented by: Magnesium Chloride (Magnesium Chloride 64mg Delayed Rel Tab) 64 mg PO PM PAUL Stop: 01/13/21 20:59 Last Admin: 12/14/20 20:16 Dose: 64 mg Documented by: Miconazole Nitrate (Miconazole Nitrate Powder 43 Gm) 1 appln EXT PRN PRN PRN Reason: Affected Skin Folds Stop: 01/13/21 18:55 Last Admin: 12/14/20 20:27 Dose: 1 appln Documented by: Miscellaneous (Carbohydrates For Hypoglycemia ) 15 - 30 gm PO UD PRN PRN Reason: Hypoglycemia Protocol Stop: 01/13/21 17:24 Miscellaneous Information (Pharmacy Glycemic Mgmt Consult) 1 ea N/A UD PRN; Protocol PRN Reason: Consult Stop: 01/13/21 17:24 Ondansetron HCl (Ondansetron Inj 2 Mg/Ml 2 Ml Vial) 4 mg IV Q4H PRN PRN Reason: Nausea And Vomiting Stop: 01/13/21 17:24 Oxycodone HCl (Oxycodone Hcl Ir 5 Mg Tab (Immediate Release)) 15 mg PO TID PRN PRN Reason: Pain Stop: 12/29/20 01:45 Last Admin: 12/15/20 06:31 Dose: 15 mg Documented by: Pantoprazole Sodium (Pantoprazole 40 Mg Tab) 40 mg PO DAILYBB [facility] Stop: 01/14/21 06:29 Last Admin: 12/15/20 06:31 Dose: 40 mg Documented by: Potassium Chloride (Potassium Chloride Crtab 20 Meq Tabcr) 40 meq PO NOW STA Stop: 12/15/20 11:23 Prochlorperazine (Prochlorperazine Maleate 5 Mg Tab) 5 mg PO BID PRN PRN Reason: Nausea Stop: 01/13/21 17:24 Rifaximin (Rifaximin 550 Mg Tablet) 550 mg PO BID PAUL Stop: 01/13/21 20:59 Last Admin: 12/15/20 09:11 Dose: 550 mg Documented by: Rivaroxaban (Rivaroxaban 20 Mg Tab) 20 mg PO HS [facility] Stop: 01/13/21 20:59 Last Admin: 12/14/20 20:16 Dose: 20 mg Documented by: Spironolactone (Spironolactone 25 Mg Tab) 50 mg PO BID [facility] Stop: 01/13/21 20:59 Last Admin: 12/15/20 09:11 Dose: 50 mg Documented by:
[2020-12-15] MEDS ORDERED: MAGNESIUM SULFATE / D5W 1 GM/100 ML BAG IV ONE (11:45)
[2020-12-15] MEDS ORDERED: POTASSIUM CHLORIDE CRTAB 20 MEQ TABCR PO ONE (15:00)
[2020-12-15] MEDS: MAGNESIUM CHLORIDE 64MG DELAYED REL TAB PO SCH (20:18)
[2020-12-15] MEDS: RIVAROXABAN 20 MG TAB PO SCH (20:19)
[2020-12-16] MEDS: oxyCODONE HCL IR 5 MG TAB (IMMEDIATE RELEASE) PO PRN ×3 (00:13→13:47)
[2020-12-16] MEDS: LEVOTHYROXINE SODIUM 200 MCG TABLET PO SCH (04:49)
[2020-12-16] MEDS: PANTOprazole 40 MG TAB PO SCH (04:49)
[2020-12-16 08:04] LABS: Hematocrit (blood only) 31.5 % (37-47); Hemoglobin 10.3 g/dL (12.0-16.0); Mean Corpuscular Hemoglobin 36.3 pg (25-34); Mean Corpuscular Hgb Conc 32.7 g/dL (32-36); Mean Corpuscular Volume 110.9 fL (80-100); Mean Platelet Volume 9.4 fL (7.4-10.4); Platelet Count 100 K/uL (130-400); RDW Coefficient of Variation 16.9 % (11.5-14.5); RDW Standard Deviation 68.1 fL (36.4-46.3); Red Blood Count 2.84 M/uL (4.2-5.4); White Blood Count 7.06 K/uL (4.8-10.8)
[2020-12-16 08:33] LABS: Albumin Level 1.8 gm/dl (3.4-5.0); BUN Creatinine Ratio 7.6 (10-20); Calcium 7.8 mg/dl (8.5-10.1); Creatinine Clr Calc Pharmacy 118.3 ml/min; Est GFR (Non-African American) 77.7 ml/min; Magnesium 1.9 mg/dl (1.8-2.4); Potassium 3.4 mmol/L (3.5-5.1)
[2020-12-16 08:36] LABS: Albumin Globulin Ratio 0.5 (0.9-2); Globulin 3.3 gm/dl (2.5-4.0); Phosphorus 2.2 mg/dl (2.5-4.9); Total Protein 5.1 gm/dl (6.4-8.2)
[2020-12-16] MEDS: INSULIN ASPART 100 UNITS/ML 3 ML PEN SC SCH ×2 (09:06→12:38)
[2020-12-16] MEDS: INSULIN GLARGINE SOLOSTAR 100 UNITS/ML 3 ML PEN SQ SCH (09:23)
[2020-12-16] MEDS: carvediloL 12.5 MG TAB PO SCH (09:50)
[2020-12-16] MEDS: DULoxetine HCL 60 MG CAP PO SCH (09:51)
[2020-12-16] MEDS: FAMOTIDINE 20 MG TAB PO SCH (09:51)
[2020-12-16] MEDS: FERROUS SULFATE 325 MG TAB PO SCH (09:52)
[2020-12-16] MEDS: LACTULOSE SYRUP 30 GM/45 ML UDP PO SCH ×2 (09:54→13:33)
[2020-12-16] MEDS: SPIRONOLACTONE 25 MG TAB PO SCH (09:55)
[2020-12-16] MEDS: rifAXIMin 550 MG TABLET PO SCH (09:55)
[2020-12-16] MEDS: FUROSEMIDE 20 MG TAB PO SCH ×2 (10:00→13:35)
[2020-12-16] MEDS ORDERED: POTASSIUM CHLORIDE CRTAB 20 MEQ TABCR PO STA (10:20)
--- NOTE | 2020-12-16 11:04 | Pharmacy Report ---
Pharmacy Glycemic Short Note 2 - Date of Service December 16, 2020 - Glycemic Short BSG Results (Last 24 hours): 12/15/20 12/15/20 12/15/20 11:25 16:35 19:51 Glucose POC Glucose 155 H 85 123 H 12/16/20 12/16/20 12/16/20 04:35 07:39 07:41 Glucose 112 H POC Glucose 149 H 113 H OUTPATIENT ANTIDIABETIC REGIMEN: * Basaglar 60 units SC daily (Office visit note on 11/24/20 - patient reports taking 40 units) * Novolog 15 units SC TIDM * Trulicity 1.5 mg SC weekly on Tuesday * HbA1c: 5.6% (11/04/20) ASSESSMENT: 12/16: * BSGs well controlled yesterday at 115, 155, 85, and 123 mg/dL * Patient requiring much less insulin than reported outpatient doses * Fasting BSG of 149 mg/dL - will continue current basal * Continue current Novolog parameters 12/15: * SR is a 54 year old female known to pharmacy glycemic consult service * Admitted on 12/14/20 with acute hepatic encephalopathy * Hypoglycemia noted yesterday afternoon, 57 -> 51 -> 48 * D10 administered yesterday * Fasting BSG of 115 mg/dL this morning * Will utilize recent admission data to guide initial insulin dosing PLAN FOR INPATIENT GLYCEMIC CONTROL: * Hold outpatient Trulicity * Basal insulin * Lantus 20 units SC daily * Reassess daily * Bolus insulin * NovoLog per scale ACHS or Q6hrs while NPO * Goal Range: Low 110 mg/dL - High 140 mg/dL * Correction Factor: 25 mg/dL/unit * Nutritional / Prandial insulin per carb ratio of 1 unit per 5 grams CHO consumed PLAN FOR DISCHARGE: * HbA1c of 5.6% suggests excellent outpatient glycemic control * Given hypoglycemia on presentation and previous episodes of hypoglycemia - suggest decreasing insulin upon discharge * Decrease Basaglar to 30 units SC daily * Decrease Novolog to 10 units TIDM, if persistently elevated BSGs at home then increase back to 15 units TIDM * Hold Novolog if limited/no PO intake * Okay to continue Trulicity * Patient should continue to self-monitor blood glucose ACHS and report abnormal values to primary care provider * Ensure prompt follow-up with Dr. Mcfadden upon discharge
[2020-12-16] MEDS ORDERED: INSULIN GLARGINE SOLOSTAR 100 UNITS/ML 3 ML PEN SQ ONE (12:00)
[2020-12-16] MEDS ORDERED: POT PHOSPHATE MONOBASIC W/ SOD TAB PO SCH (13:00)
--- NOTE | 2020-12-16 13:17 | Hospitalist Progress Note ---
Date of Service December 16, 2020 Assessment & Plan (1) Acute metabolic encephalopathy: Plan: - Likely multifactorial:Medications, Hypoglycemia, Hepatic Encephalopathy - CT head: No acute intracranial findings. Patient known for noncompliance with regular meals and mistakenly taking her previous dose of Insulin (And not the dose recommended from recent discharge) - slightly elevated ammonia levels, 41 on admission, - Continue lactulose, rifaximin - Monitor for hypoglycemia - initially was 62, improved with IV dextrose -Obtain blood cultures, urine culture to rule out other infectious source, afebrile currently UA not c/w UTI Blood cultx - NGTD -Checking drug tox -Checked ABG on admission, in ER has O2 sats at 94% on RA -Concerned that she has missed Lasix with CXR showing pulmonary edema, gave IV Lasix 20 mg on admission, inserted Graham, strict I's and O's 12/15 -clinically patient is much improved, she is alert oriented answering questions appropriately (2) DM2 (diabetes mellitus, type 2): Plan: -Last A1c was 5.6 on 11/05/2019 -ISS with Accu-Cheks ACHS -Presented with hypoglycemia with glucose in the 60s, no noncompliance of medication, discussed the importance of eating routine/regular meals, may need to reduce insulin 15 units 3 times daily since this is the second time she has been admitted for such, Trulicity 1.5 mg weekly, Lantus 60 units daily will be reduced in half for now to 30 mg HS with hypoglycemic episode -Allow diet once encephalopathy improves Glycemic pharmacy consulted, recommendations as below HbA1c of 5.6% suggests excellent outpatient glycemic control Given hypoglycemia on presentation and previous episodes of hypoglycemia - suggest decreasing insulin upon discharge Decrease Basaglar to 30 units SC daily Decrease Novolog to 10 units TIDM, if persistently elevated BSGs at home then increase back to 15 units TIDM Hold Novolog if limited/no PO intake Okay to continue Trulicity Patient should continue to self-monitor blood glucose ACHS and report abnormal values to primary care provider (3) Hepatic encephalopathy: Plan: -Ammonia elevated as above, p.o. 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 Will Hemoccult all stools -Continue lactulose and Xifaxan, zinc, spironolactone, lasix -Avoid narcotics so as to limit confusion -Avoid NSAIDs (5) Paroxysmal A-fib: Plan: -Continue Xarelto, carvedilol 12.5 twice daily, lasix 20 mg TID po -ER reports that she was slightly bradycardic upon arrival to the ER however this improved without any pharmacological intervention and her on telemetry -Check 2D echo with pulmonary edema on CXR Echo: Echo difficult study. LV grossly normal size. LV systolic function normal, EF 55 to 60%. RV chamber size appears mildly dilated with at least mild diffuse right ventricular hypokinesis on technically limited visualization. There is no pericardial effusion. (6) COPD, group D, by GOLD 2017 classification: Plan: -Uses albuterol inhaler as needed Previously patient was using oxygen, she says she has oxygen at home but not using it Obtained nocturnal study and 2 step before discharge -patient needs 2 L at night and also with ambulation (7) Hypothyroid: Plan: -Continue levothyroxine (8) Morbid obesity: Plan: -BMI of 53.6, diet and exercise to be encouraged, heart healthy/diabetic diet during hospitalization -Vascular access difficult due to body habitus, concern if patient requires multiple readmissions that she would benefit from more permanent line -Encouraged diet rich in protein, such as lean meats, dairy products, weight loss -Further follow-up with PCP (9) RIMA (obstructive sleep apnea): Plan: -CPAP at bedtime, and compliant History of nocturnal hypoxia, currently patient tells me she has oxygen at home but not using it Will obtain nocturnal study now, and 2 step as well Recommend official sleep study DVT PPx: - karey, scds CODE: Full code Dispo: From home, likely DC today Admission and Anticipated Discharge Date Admission Date: December 14, 2020 Subjective Patient seen in follow-up of metabolic encephalopathy, hypoglycemia She is currently sitting up in bed, in no acute distress, says that she feels well, she is answering questions appropriately Denies any chest pain, shortness of breath Also denies any abdominal pain, nausea vomiting Nocturnal study was ordered -needs to use 2L at night Patient has a history of chronic oxygen use, but now tells me she does not use any, obtained need 2 step - needs 2 L with ambulation Review of Systems Review of Systems: All systems reviewed & are unremarkable except as noted in Subjective Physical Exam Physical Exam: General: morbidly obese F in NAD Head: Normocephalic, atraumatic ENT: PERRL, EOMI, no pharyngeal exudate Chest: Somewhat decreased breath sounds, however overall seems to be clear to auscultation, no wheezing rhonchi crackles noted, saturating 94% on room air Cardiac: Regular rate and rhythm, no murmur, unable to assess for JVD due to body habitus, normal peripheral pulses, good capillary refill Abdominal: + Morbidly obese, NABS x 4 quadrants, soft, nondistended, nontender to palpation, no rebound or guarding Extremities: Normal inspection, no peripheral edema or erythema, calves nontender to palpation Neuro: Awake, alert and oriented x3, answering questions appropriately, no facial asymmetry, speech fluent, moving extremities Results & Data Results & Data ([facility]) Vital Signs (Past 12 Hours) Vital Signs Temp Pulse Pulse Pulse Pulse Pulse Pulse 12/16/20 11:00 36.7 C 71 12/16/20 10:50 85 91 H 82 78 12/16/20 09:45 68 12/16/20 07:46 67 12/16/20 07:16 36.7 C 61 12/16/20 07:05 36.6 C 65 12/16/20 03:45 80 12/16/20 03:05 36.8 C 73 Resp Resp Resp Resp Resp BP BP 12/16/20 11:00 18 128/86 12/16/20 10:50 22 22 22 18 12/16/20 09:45 118/71 12/16/20 07:46 12/16/20 07:16 17 114/72 12/16/20 07:05 20 105/65 12/16/20 03:45 12/16/20 03:05 18 102/61 Pulse Ox Pulse Ox Pulse Ox Pulse Ox Pulse Ox 12/16/20 11:00 94 12/16/20 10:50 92 86 L 92 92 12/16/20 09:45 12/16/20 07:46 12/16/20 07:16 98 12/16/20 07:05 98 12/16/20 03:45 88 L 12/16/20 03:05 90 Laboratory Results 12/16/20 12/16/20 12/16/20 Range/Units 11:50 07:41 07:39 WBC 7.06 (4.8-10.8) K/uL RBC 2.84 L (4.2-5.4) M/uL Hgb 10.3 L (12.0-16.0) g/dL Hct 31.5 L (37-47) % MCV 110.9 H (80-100) fL MCH 36.3 H (25-34) pg MCHC 32.7 (32-36) g/dL RDW Std Deviation 68.1 H (36.4-46.3) fL RDW Coeff of Mari 16.9 H (11.5-14.5) % Plt Count 100 L (130-400) K/uL MPV 9.4 (7.4-10.4) fL Sodium (136-145) mmol/L Potassium (3.5-5.1) mmol/L Chloride (98-107) mmol/L Carbon Dioxide (21-32) mmol/L Anion Gap (3-11) BUN (7-18) mg/dl Creatinine (0.6-1.2) mg/dl Est Cr Clr Drug Dosing ml/min Est GFR ( Amer) ml/min Est GFR (Non-Af Amer) ml/min BUN/Creatinine Ratio (10-20) Glucose (70-99) mg/dl POC Glucose 238 H 113 H (70-99) mg/dl Calcium (8.5-10.1) mg/dl Phosphorus (2.5-4.9) mg/dl Magnesium (1.8-2.4) mg/dl Total Bilirubin (0.2-1) mg/dl AST (15-37) U/L ALT (12-78) U/L Alkaline Phosphatase (45-117) U/L Total Protein (6.4-8.2) gm/dl Albumin (3.4-5.0) gm/dl Globulin (2.5-4.0) gm/dl Albumin/Globulin Ratio (0.9-2) 12/16/20 12/16/20 12/15/20 Range/Units 07:39 04:35 19:51 WBC (4.8-10.8) K/uL RBC (4.2-5.4) M/uL Hgb (12.0-16.0) g/dL Hct (37-47) % MCV (80-100) fL MCH (25-34) pg MCHC (32-36) g/dL RDW Std Deviation (36.4-46.3) fL RDW Coeff of Mari (11.5-14.5) % Plt Count (130-400) K/uL MPV (7.4-10.4) fL Sodium 142 (136-145) mmol/L Potassium 3.4 L (3.5-5.1) mmol/L Chloride 108 H (98-107) mmol/L Carbon Dioxide 27 (21-32) mmol/L Anion Gap 7.0 (3-11) BUN 6 L (7-18) mg/dl Creatinine 0.84 (0.6-1.2) mg/dl Est Cr Clr Drug Dosing 118.3 ml/min Est GFR ( Amer) 90.0 ml/min Est GFR (Non-Af Amer) 77.7 ml/min BUN/Creatinine Ratio 7.6 L (10-20) Glucose 112 H (70-99) mg/dl POC Glucose 149 H 123 H (70-99) mg/dl Calcium 7.8 L (8.5-10.1) mg/dl Phosphorus 2.2 L (2.5-4.9) mg/dl Magnesium 1.9 (1.8-2.4) mg/dl Total Bilirubin 2.0 H (0.2-1) mg/dl AST 34 (15-37) U/L ALT 21 (12-78) U/L Alkaline Phosphatase 169 H (45-117) U/L Total Protein 5.1 L (6.4-8.2) gm/dl Albumin 1.8 L (3.4-5.0) gm/dl Globulin 3.3 (2.5-4.0) gm/dl Albumin/Globulin Ratio 0.5 L (0.9-2) 12/15/20 Range/Units 16:35 WBC (4.8-10.8) K/uL RBC (4.2-5.4) M/uL Hgb (12.0-16.0) g/dL Hct (37-47) % MCV (80-100) fL MCH (25-34) pg MCHC (32-36) g/dL RDW Std Deviation (36.4-46.3) fL RDW Coeff of Mari (11.5-14.5) % Plt Count (130-400) K/uL MPV (7.4-10.4) fL Sodium (136-145) mmol/L Potassium (3.5-5.1) mmol/L Chloride (98-107) mmol/L Carbon Dioxide (21-32) mmol/L Anion Gap (3-11) BUN (7-18) mg/dl Creatinine (0.6-1.2) mg/dl Est Cr Clr Drug Dosing ml/min Est GFR ( Amer) ml/min Est GFR (Non-Af Amer) ml/min BUN/Creatinine Ratio (10-20) Glucose (70-99) mg/dl POC Glucose 85 (70-99) mg/dl Calcium (8.5-10.1) mg/dl Phosphorus (2.5-4.9) mg/dl Magnesium (1.8-2.4) mg/dl Total Bilirubin (0.2-1) mg/dl AST (15-37) U/L ALT (12-78) U/L Alkaline Phosphatase (45-117) U/L Total Protein (6.4-8.2) gm/dl Albumin (3.4-5.0) gm/dl Globulin (2.5-4.0) gm/dl Albumin/Globulin Ratio (0.9-2) Medications Administered Current Inpatient Medications Albuterol (Albuterol Hfa 8 Gm Inhaler) 2 puffs INH QID PRN PRN Reason: shortness of breath or wheezing Stop: 01/13/21 17:24 Carvedilol (Carvedilol 12.5 Mg Tab) 12.5 mg PO BID [facility] Stop: 01/13/21 20:59 Last Admin: 12/16/20 09:50 Dose: 12.5 mg Documented by: Dextrose (Dextrose 50% 50 Ml Syringe) 25 - 50 ml IV UD PRN; Protocol PRN Reason: Hypoglycemia Protocol Stop: 01/13/21 17:24 Duloxetine HCl (Duloxetine Hcl 60 Mg Cap) 60 mg PO BID [facility] Stop: 01/13/21 20:59 Last Admin: 12/16/20 09:51 Dose: 60 mg Documented by: Famotidine (Famotidine 20 Mg Tab) 20 mg PO BID [facility] Stop: 01/13/21 20:59 Last Admin: 12/16/20 09:51 Dose: 20 mg Documented by: Ferrous Sulfate (Ferrous Sulfate 325 Mg Tab) 325 mg PO DAILY [facility] Stop: 01/14/21 08:59 Last Admin: 12/16/20 09:52 Dose: 325 mg Documented by: Furosemide (Furosemide 20 Mg Tab) 20 mg PO TID [facility] Stop: 01/13/21 20:59 Last Admin: 12/16/20 10:00 Dose: 20 mg Documented by: Glucagon (Glucagon For Inj 1 Mg Vial) 1 mg SQ UD PRN; Protocol PRN Reason: Hypoglycemia Protocol Stop: 01/13/21 17:24 Glucose (Glucose 10 Tabs/Tube) 4 - 8 tabs PO UD PRN; Protocol PRN Reason: Hypoglycemia Protocol Stop: 01/13/21 17:24 Glucose (Glucose 40% Gel 15 Gm Tube) 15 - 30 gm PO UD PRN; Protocol PRN Reason: Hypoglycemia Protocol Stop: 01/13/21 17:24 Insulin Aspart (Insulin Aspart 100 Units/Ml 3 Ml Pen) 0 units SC ACHS [facility] Stop: 01/13/21 17:24 Last Admin: 12/16/20 12:38 Dose: 14 units Documented by: Insulin Glargine (Insulin Glargine Solostar 100 Units/Ml 3 Ml Pen) 20 units SQ DAILY [facility] Stop: 01/14/21 08:59 Last Admin: 12/16/20 09:23 Dose: 20 units Documented by: Lactulose (Lactulose Syrup 30 Gm/45 Ml Udp) 30 gm PO QID [facility] Stop: 01/13/21 17:59 Last Admin: 12/16/20 09:54 Dose: 30 gm Documented by: Levothyroxine Sodium (Levothyroxine Sodium 200 Mcg Tablet) 200 mcg PO DAILYBB [facility] Stop: 01/14/21 06:29 Last Admin: 12/16/20 04:49 Dose: 200 mcg Documented by: Magnesium Chloride (Magnesium Chloride 64mg Delayed Rel Tab) 64 mg PO PM [facility] Stop: 01/13/21 20:59 Last Admin: 08/23/21 20:18 Dose: 64 mg Documented by: Miconazole Nitrate (Miconazole Nitrate Powder 43 Gm) 1 appln EXT PRN PRN PRN Reason: Affected Skin Folds Stop: 01/13/21 18:55 Last Admin: 12/14/20 20:27 Dose: 1 appln Documented by: Miscellaneous (Carbohydrates For Hypoglycemia ) 15 - 30 gm PO UD PRN PRN Reason: Hypoglycemia Protocol Stop: 01/13/21 17:24 Miscellaneous Information (Pharmacy Glycemic Mgmt Consult) 1 ea N/A UD PRN; Protocol PRN Reason: Consult Stop: 01/13/21 17:24 Ondansetron HCl (Ondansetron Inj 2 Mg/Ml 2 Ml Vial) 4 mg IV Q4H PRN PRN Reason: Nausea And Vomiting Stop: 01/13/21 17:24 Oxycodone HCl (Oxycodone Hcl Ir 5 Mg Tab (Immediate Release)) 15 mg PO QID PRN PRN Reason: Pain Stop: 12/29/20 01:45 Last Admin: 12/16/20 07:37 Dose: 15 mg Documented by: Pantoprazole Sodium (Pantoprazole 40 Mg Tab) 40 mg PO DAILYBB [facility] Stop: 01/14/21 06:29 Last Admin: 12/16/20 04:49 Dose: 40 mg Documented by: Potassium Phosphate (Pot Phosphate Monobasic W/ Sod Tab) 1 tab PO QID [facility] Stop: 01/15/21 12:59 Prochlorperazine (Prochlorperazine Maleate 5 Mg Tab) 5 mg PO BID PRN PRN Reason: Nausea Stop: 01/13/21 17:24 Rifaximin (Rifaximin 550 Mg Tablet) 550 mg PO BID [facility] Stop: 01/13/21 20:59 Last Admin: 12/16/20 09:55 Dose: 550 mg Documented by: Rivaroxaban (Rivaroxaban 20 Mg Tab) 20 mg PO HS [facility] Stop: 01/13/21 20:59 Last Admin: 12/15/20 20:19 Dose: 20 mg Documented by: Spironolactone (Spironolactone 25 Mg Tab) 50 mg PO BID [facility] Stop: 01/13/21 20:59 Last Admin: 12/16/20 09:55 Dose: 50 mg Documented by:
--- NOTE | 2020-12-16 13:40 | Discharge Summary ---
Date of Service December 16, 2020 Admission HPI Per Admitting Provider This is a 54 yo F with PMHx of chronic diastolic heart failure (EF 65 to 70%, TTE 2020), RIMA/CPAP noncompliance, 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 Patient presents today from home, due to increased confusion. She is unable to provide any review of systems due to encephalopathy. She is able to tell me she lives at home with Greg, boyfriend, but have lived together x25 years. There is no family at bedside. She denies any acute pain. Currently IV team is attempting to replace venous access as the line blew, after using fluoroscopy to place it initially. Recent admission November 032020 for hepatic encephalopathy and again from November 09- for acute metabolic encephalopathy which was multifactorial due to medication noncompliance, hypoglycemia, hepatic encephalopathy and melena in the setting of use of Xarelto, NSAIDs. Per outpatient records it does not appear that she has yet followed up with GI as an outpatient. She cannot tell me if she has been taking her medications, last dose of insulin or lactulose. Admission Exam Per Admitting Provider Patient is morbidly obese female, with BMI above 50, head is normocephalic, atraumatic, eyes EOMI, PERRL. Currently she is lying in bed, in no acute d istress. Her mental status is much improved, she is alert oriented and she is answering my questions appropriately. There is no facial asymmetry, and speech is fluent. Currently she is breathing on room air without difficulty and saturating well. She has decreased breath sounds. However no significant wheezing noted. heart sounds seems regular. Abdomen is obese, soft nontender. There is minimal lower extremity edema. She is moving all extremities spontaneously and without difficulty. Skin is warm and dry. Principal Diagnosis Metabolic encephalopathy, hepatic encephalopathy Hypoglycemia, elevated ammonia Anemia Discharge Exam General: morbidly obese F in NAD Head: Normocephalic, atraumatic ENT: PERRL, EOMI, no pharyngeal exudate Chest: Somewhat decreased breath sounds, however overall seems to be clear to auscultation, no wheezing rhonchi crackles noted, saturating 94% on room air Cardiac: Regular rate and rhythm, no murmur, unable to assess for JVD due to body habitus, normal peripheral pulses, good capillary refill Abdominal: + Morbidly obese, NABS x 4 quadrants, soft, nondistended, nontender to palpation, no rebound or guarding Extremities: Normal inspection, no peripheral edema or erythema, calves nontender to palpation Neuro: Awake, alert and oriented x3, answering questions appropriately, no facial asymmetry, speech fluent, moving extremities Discharge Data Allergies Allergy/AdvReac Type Severity Reaction Status Date / Time Iodinated Contrast Media Allergy Intermediate hives-PT Verified 12/14/20 11:01 DENIES SEE NOTE adhesive Allergy Mild RED RASH Verified 12/14/20 11:01 CAUSED BY PAPER TAPE vancomycin AdvReac Severe renal Verified 12/14/20 11:01 failure, required dialysis x 3 MONTHS acetaminophen AdvReac Intermediate Liver Verified 12/14/20 11:01 problems. alprazolam AdvReac Intermediate MAKES Verified 12/14/20 11:01 LOOPY,DO AND SAY SILLY THINGS codeine AdvReac Intermediate UPSET Verified 12/14/20 11:01 STOMACH haloperidol AdvReac Intermediate nervous Verified 12/14/20 11:01 and anxious metformin AdvReac Intermediate HANDS FEET Verified 12/14/20 11:01 FACE NUMB methylparaben AdvReac Intermediate FLUID Verified 12/14/20 11:01 RETENTION morphine AdvReac Intermediate SWELLING Verified 12/14/20 11:01 LEGS AND FEET oxymorphone AdvReac Intermediate FLUID Verified 12/14/20 11:01 RETENTION pregabalin AdvReac Intermediate Aphasia/Speech Verified 12/14/20 11:01 impairments gabapentin AdvReac Mild Aphasia/Speech Verified 12/14/20 11:01 impairments Sulfa (Sulfonamide AdvReac Mild GI SYMPTOMS Verified 12/14/20 11:01 Antibiotics) Consultations 12/14/20 14:00 ED Decision to Admit Stat 12/15/20 08:00 Consult Gastroenterology Routine Ordered Studies 12/14/20 11:09 CT abd pelvis wo con Stat 1. Suboptimal examination without oral and IV contrast. There is also severe streak artifact and mild motion. 2. There are no acute infectious or inflammatory findings in the abdomen or pelvis. 3. Ground glass opacities and intralobular septal thickening are noted at the lung bases. This could represent congestive failure with pulmonary edema and/or an infectious/inflammatory pneumonitis. Clinical correlation required. 4. Cirrhotic liver morphology. 5. Splenomegaly, perisplenic varices, and trace perihepatic ascites indicate portal hypertension. 6. A subacute burst fracture of L1 with mildly retropulsed fragments is similar to previous. 7. Right-sided nephrolithiasis. 8. Body wall edema. 9. Mildly enlarged retroperitoneal and iliac chain lymph nodes are nonspecific and similar to previous. 10. Additional findings as above. CT head/brain wo con Stat IMPRESSION: No acute intracranial abnormality. Hospital Course (1) Acute metabolic encephalopathy: - Likely multifactorial:Medications, Hypoglycemia, Hepatic Encephalopathy - CT head: No acute intracranial findings. Patient known for noncompliance with regular meals and mistakenly taking her previous dose of Insulin (And not the dose recommended from recent discharge) - slightly elevated ammonia levels, 41 on admission, - Continue lactulose, rifaximin - Monitor for hypoglycemia - initially was 62, improved with IV dextrose -Obtain blood cultures, urine culture to rule out other infectious source, afebrile currently UA not c/w UTI Blood cultx - NGTD -Checking drug tox -Checked ABG on admission, in ER has O2 sats at 94% on RA -Concerned that she has missed Lasix with CXR showing pulmonary edema, gave IV Lasix 20 mg on admission, inserted Graham, strict I's and O's 12/15 -clinically patient is much improved, she is alert oriented answering questions appropriately (2) DM2 (diabetes mellitus, type 2): -Last A1c was 5.6 on 11/05/2019 -ISS with Accu-Cheks ACHS -Presented with hypoglycemia with glucose in the 60s, no noncompliance of medica tion, discussed the importance of eating routine/regular meals, may need to reduce insulin 15 units 3 times daily since this is the second time she has been admitted for such, Trulicity 1.5 mg weekly, Lantus 60 units daily will be reduced in half for now to 30 mg HS with hypoglycemic episode -Allow diet once encephalopathy improves Glycemic pharmacy consulted, recommendations as below HbA1c of 5.6% suggests excellent outpatient glycemic control Given hypoglycemia on presentation and previous episodes of hypoglycemia - suggest decreasing insulin upon discharge Decrease Basaglar to 30 units SC daily Decrease Novolog to 10 units TIDM, if persistently elevated BSGs at home then increase back to 15 units TIDM Hold Novolog if limited/no PO intake Okay to continue Trulicity Patient should continue to self-monitor blood glucose ACHS and report abnormal values to primary care provider (3) Hepatic encephalopathy: -Ammonia elevated as above, p.o. 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 Will Hemoccult all stools -Continue lactulose and Xifaxan, zinc, spironolactone, lasix -Avoid narcotics so as to limit confusion -Avoid NSAIDs (5) Paroxysmal A-fib: -Continue Xarelto, carvedilol 12.5 twice daily, lasix 20 mg TID po -ER reports that she was slightly bradycardic upon arrival to the ER however this improved without any pharmacological intervention and her on telemetry -Check 2D echo with pulmonary edema on CXR Echo: Echo difficult study. LV grossly normal size. LV systolic function normal, EF 55 to 60%. RV chamber size appears mildly dilated with at least mild diffuse right ventricular hypokinesis on technically limited visualization. There is no pericardial effusion. (6) COPD, group D, by GOLD 2017 classification: -Uses albuterol inhaler as needed Previously patient was using oxygen, she says she has oxygen at home but not using it Obtained nocturnal study and 2 step before discharge -patient needs 2 L at night and also with ambulation (7) Hypothyroid: -Continue levothyroxine (8) Morbid obesity: -BMI of 53.6, diet and exercise to be encouraged, heart healthy/diabetic diet during hospitalization -Vascular access difficult due to body habitus, concern if patient requires multiple readmissions that she would benefit from more permanent line -Encouraged diet rich in protein, such as lean meats, dairy products, weight loss -Further follow-up with PCP (9) RIMA (obstructive sleep apnea): -CPAP at bedtime, and compliant History of nocturnal hypoxia, currently patient tells me she has oxygen at home but not using it Will obtain nocturnal study now, and 2 step as well Recommend official sleep study DVT PPx: - teds, scds CODE: Full code Dispo: From home, likely DC today Total Time Total Time Spent Total Time Spent (In Minutes): 40 Discharge Plan Discharge Items Patient Disposition: Home - Self-Care Reason For Visit: ACUTE METABOLIC ENCEPHALOPATHY Discharge Diagnosis: Metabolic encephalopathy, hepatic encephalopathy Hypoglycemia, elevated ammonia Anemia Activity: Per Instructions section Non-emergency contact: Primary Care Provider Call non-emergency contact if: you have any medication questions and your symptoms worsen Follow-up/Referrals: Dewey Mcfadden DO [Primary Care Provider] - (Date & Time 12/23/2020 2:00 PM Provider Dewey Mcfadden DO Department [facility] ) Diet: Carb Consistent or DM2 and Heart Healthy Addtl Attending Provider Instructions: Follow-up for family care physician, the appointment was scheduled for you for December 23. Use oxygen, 2 L at night and also 2 L with ambulation. As discussed before, it is important that you get official sleep study done. For your diabetes, adjust your insulin accordingly : Decrease Basaglar to 30 units SC daily Decrease Novolog to 10 units three times a day with meals. If persistently elevated blood sugars at home, then increase back to 15 units three times a day with meals. Hold Novolog if limited or no oral intake. Okay to continue Trulicity You should continue to self-monitor blood glucose before meals and at night, and report abnormal values to primary care doctor. In addition, recommend taking potassium supplement 20 daily. Discuss with your primary care doctor how long you should be on a supplement. Also recommend that you have diet rich in protein, such as lean meats (chicken, fish), and dairy products. You can also try protein shakes/boost. Try to avoid foods high in sugar/carbohydrates. It is strongly recommended that you try to lose weight, discuss this further with your primary care doctor. Pending Studies at Discharge: Yes Studies:: Final blood cultures Stand-Alone Forms: My [employer], Smoking Cessation Medications and DC Order Prescriptions: New potassium chloride 20 mEq tablet,ER particles/crystals 20 meq PO DAILY Qty: 30 RF: 0 Continued pantoprazole [Protonix] 40 mg tablet,delayed release (DR/EC) 40 mg PO DAILYBB RF: 0 ferrous sulfate [Iron (ferrous sulfate)] 325 mg (65 mg iron) tablet 325 mg PO QDB RF: 0 trazodone 50 mg tablet 50 mg PO HS RF: 0 duloxetine [Cymbalta] 60 mg capsule,delayed release(DR/EC) 60 mg PO BID RF: 0 Xarelto 20 mg tablet 20 mg PO HS RF: 0 carvedilol [Coreg] 12.5 mg Tablet 12.5 mg PO BID RF: 0 Trulicity 1.5 mg/0.5 mL pen injector 1.5 mg SUBCUT WK RF: 0 Xifaxan 550 mg Tablet 550 mg PO BID Qty: 60 RF: 0 famotidine [Pepcid] 20 mg tablet 20 mg PO BID RF: 0 magnesium chloride [Mag 64] 64 mg tablet,delayed release (DR/EC) 64 mg PO PM RF: 0 spironolactone [Aldactone] 25 mg tablet 25 mg PO DAILY RF: 0 baclofen 10 mg Tablet 10 mg PO BID PRN (Reason: spasms) Qty: 60 RF: 0 prochlorperazine maleate [Compazine] 5 mg tablet 5 mg PO BID PRN (Reason: Nausea) RF: 0 levothyroxine [Synthroid] 200 mcg tablet 200 mcg PO DAILYBB RF: 0 oxycodone [Roxicodone] 15 mg tablet 15 mg PO TID PRN (Reason: Pain) RF: 0 albuterol sulfate [Ventolin HFA] 90 mcg/actuation HFA aerosol inhaler 2 inha INH QID PRN (Reason: shortness of breath or wheezing) RF: 0 furosemide [Lasix] 20 mg Tablet 20 mg PO TID RF: 0 lactulose [Constulose] 10 gram/15 mL solution 30 ml PO QID RF: 0 Changed insulin aspart U-100 [Novolog Flexpen U-100 Insulin] 100 unit/mL (3 mL) insulin pen 10 unit SUBCUT TIDM Qty: 0 RF: 0 Basaglar KwikPen U-100 Insulin 100 unit/mL (3 mL) insulin pen 30 unit SUBCUT DAILY Qty: 0 RF: 0 Discharge Orders: Discharge Order (Routine); Ordered 12/16/20 Ordered By: Obed Bill Admission Data Admit Date/Time: 12/14/20 14:30 Attending Provider: Obed Bill Admit Provider: Obed Bill Primary Care Provider: Dewey Mcfadden Other Providers: Obed Bill ; Skyla Mathew
--- NOTE | 2020-12-17 09:45 | Electrocardiogram Report ---
Test Reason : Blood Pressure : / mmHG Vent. Rate : 045 BPM Atrial Rate : 045 BPM P-R Int : 246 ms QRS Dur : 088 ms QT Int : 512 ms P-R-T Axes : 045 054 040 degrees QTc Int : 442 ms Sinus bradycardia with 1st degree A-V block Low voltage QRS Borderline ECG When compared with ECG of 10-NOV-2020 21:39, Vent. rate has decreased BY 62 BPM FL interval has shortened Confirmed by Gary Rod ([id number]) on 12/17/2020 9:45:12 AM Referred By: REFERRED SELF Confirmed By:Gary Rod
[2020-12-17 09:52] LABS: Codeine Urine NEGATIVE ng/mL (<50); Hydrocodone Urine NEGATIVE ng/mL (<50); Hydromor Urine NEGATIVE ng/mL (<50); Morphine Urine NEGATIVE ng/mL (<50); Norhydrocodone Conf Ur NEGATIVE ng/mL (<50); Noroxycodone Urine >10000 ng/mL (<50); Oxycodone Urine 8600 ng/mL (<50); Oxymorph Urine 724 ng/mL (<50)
== END 2020-12-16 15:15 | disposition home or self-care (01) | DRG 441 ==
LOC: ED 10:19 → 2N 14:30
DX: Z68.43 Body mass index [BMI] 50.0-59.9, adult; E66.01 Morbid (severe) obesity due to excess calories; G47.33 Obstructive sleep apnea (adult) (pediatric); J44.9 Chronic obstructive pulmonary disease, unspecified; D64.9 Anemia, unspecified; K75.81 Nonalcoholic steatohepatitis (NASH); I48.0 Paroxysmal atrial fibrillation; G93.41 Metabolic encephalopathy; K72.00 Acute and subacute hepatic failure without coma; K74.60 Unspecified cirrhosis of liver; Z88.5 Allergy status to narcotic agent; E03.9 Hypothyroidism, unspecified; F17.210 Nicotine dependence, cigarettes, uncomplicated; Z79.4 Long term (current) use of insulin; Z79.01 Long term (current) use of 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s

== ENCOUNTER 2021-01-17 05:29 | Inpatient (IN) ==
[2021-01-17] MEDS ORDERED: NALOXONE HCL INJ 1 MG/ML 2ML SYR INTNAS ONE (06:16)
[2021-01-17] MEDS ORDERED: NALOXONE HCL 0.4 MG/1 ML VIAL/CARP ONE (06:21)
[2021-01-17] MEDS ORDERED: RAPID SEQUENCE INDUCTION BAG ONE (06:45)
[2021-01-17] MEDS ORDERED: SODIUM CHLORIDE 0.9% 1000ML 1,000 ML IV ONE (06:58)
--- NOTE | 2021-01-17 07:01 | Procedure Note ---
Procedure Note Date of Service January 17, 2021 Note INTUBATION PROCEDURE NOTE: Provider: GILDA Chen Attending: Flo Aguilar A time-out was completed verifying correct patient, procedure, site, positioning. Patient became unresponsive while obtaining chest x-ray and code danie was called. Overdose was suspected and she received intranasal Narcan and IV Narcan x1 without response and decision was made to emergently intubate. Sedative agent used: None Paralysis agent used: None Emergent consent was implied given patients rapidly declining clinical status and need for airway protection. The patient was prepared in the appropriate fashion. The patient was easily v entilated using [id number] to achieve adequate oxygenation. A 8.0 Kinyarwanda endotracheal tube was placed with Gluidoscope to 22 cm at the lip. The stylette was removed and balloon was inflated with 10mL of air. Appropriate Colorimetric change was appreciated. Bilateral breath sounds were heard without air sounds in the abdomen. Post Intubation Chest X-ray confirms placement without pneumothorax. Patient tolerated the procedure well and there were no immediate complications. Coding CPT Codes Resuscitation - Resuscitation: 82639 Endotracheal Intubation, emergency ([id number]) [facility] [place] Procedure Codes (Charges) Resuscitation Resuscitation: 31161 Endotracheal Intubation, emergency
[2021-01-17] MEDS ORDERED: NOREPINEPHRINE/D5W 8 MG/508 ML IV ONE ×2 (07:18→20:08)
[2021-01-17] MEDS ORDERED: STAT IV Infusion **Titration per Protocol STA ×6 (07:22→13:07)
[2021-01-17] MEDS ORDERED: methylPREDNISolone 125 MG/2 ML VIAL IV STA (07:25)
[2021-01-17] MEDS ORDERED: diphenhydrAMINE 50 MG/ML VIAL IV STA (07:25)
[2021-01-17] MEDS ORDERED: NOREPINEPHRINE/D5W 8 MG/508 ML BAG IV SCH (07:30)
[2021-01-17 07:32] LABS: Hematocrit (blood only) 24.6 % (37-47); Hemoglobin 7.7 g/dL (12.0-16.0); Mean Corpuscular Hemoglobin 36.5 pg (25-34); Mean Corpuscular Hgb Conc 31.3 g/dL (32-36); Mean Corpuscular Volume 116.6 fL (80-100); Mean Platelet Volume 10.1 fL (7.4-10.4); Nucleated RBC # (auto) 0.35 K/uL (0-0); Nucleated RBC % (auto) 1.5 %; Platelet Count 156 K/uL (130-400); RDW Coefficient of Variation 17.2 % (11.5-14.5); RDW Standard Deviation 70.8 fL (36.4-46.3); Red Blood Count 2.11 M/uL (4.2-5.4)
--- NOTE | 2021-01-17 07:34 | History & Physical Report ---
Date of Service January 17, 2021 Assessment & Plan (1) Respiratory failure with hypoxia and hypercapnia: Plan: Acute respiratory failure with hypoxia, hypercapnia Likely multifactorial H/O RIMA-noncompliant with CPAP as per records, Obesity hypoventilation syndrome contributing, Secondary to Narcotic medcations -CXR:No pneumothorax. Cardiomegaly with pulmonary vascular congestion. Trace pleural effusions with mild bibasilar opacities. -Negative COVID Screen -S/P Intubation - CTA is pending Continue vent support Appreciate Mobile Battery Technician help Nebs PRN Further management based on imaging studies Acute metabolic/Toxic encephalopathy Hyperammonemia CT head pending CT abdomen pelvis pending Hold all narcotics Continue lactulose Monitor ammonia levels Cardiogenic shock Lactic Acidosis DD: sepsis Continues to be hypotensive while on pressors Continue IV fluids Rule out blood loss anemia while on anticoagulation Noted Hb drop from baseline Hold Xarelto until bleeding ruled out Blood Cultures obtained Consider empiric antibiotics Procalcitonin: 0.93 Acute Kidney Injury Cr: 1.6 Avoid nephrotoxic agents as able Monitor function Acute on chronic Anemia CT head, chest, abdomen pending Check FOBT No obvious bleeding issues Monitor H&H and transfuse PRBC PRN DM II Presented with hypoglycemia Update HbA1c Continue insulin therapy Monitor BGs Hyperbilirubinemia Elevated INR MEEK cirrhosis Continue rifaximin, lactulose Moitor LFTs Hypothyroidism Continue levothyroxine DVT Px: SCDs for now Code Status Full Code History of Present Illness Chief Complaint: Acute Metabolic Encephalopathy. 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 Patient was unconscious while in ED and was emergently intubated for airway protection. Patient is currently intubated and sedated and so unable to provide any history. Most of the history is obtained from patient records, ER staff, patient's caregiver. Patient was sleeping all day yesterday and complained of back pain and was very lethargic after taking baclofen. She was taking her lactulose regularly as per the caregiver. Patient went to the bathroom and had a mechanical fall and could not get up from the floor and 911 was called. No known history of chest pain, nausea, vomiting, abdominal pain, bleeding issues, fever, chills, cough. Patient was administered part of of the powder from her pain medication capsule mixed with apple sauce to help with her back pain by her caregiver. " I was told we can do it if we do not want to give the whole pill to minimize sedation. She requested for pain medication due to back pain ". She was noted to have poor urine output and her blood pressure could not be obtained. She was started on pressors while in ED. Allergies Allergy/AdvReac Type Severity Reaction Status Date / Time Iodinated Contrast Media Allergy Intermediate hives-PT Verified 01/17/21 08:04 DENIES SEE NOTE adhesive Allergy Mild RED RASH Verified 01/17/21 08:04 CAUSED BY PAPER TAPE vancomycin AdvReac Severe renal Verified 01/17/21 08:04 failure, required dialysis x 3 MONTHS acetaminophen AdvReac Intermediate Liver Verified 01/17/21 08:04 problems. alprazolam AdvReac Intermediate MAKES Verified 01/17/21 08:04 LOOPY,DO AND SAY SILLY THINGS codeine AdvReac Intermediate UPSET Verified 01/17/21 08:04 STOMACH haloperidol AdvReac Intermediate nervous Verified 01/17/21 08:04 and anxious metformin AdvReac Intermediate HANDS FEET Verified 01/17/21 08:04 FACE NUMB methylparaben AdvReac Intermediate FLUID Verified 01/17/21 08:04 RETENTION morphine AdvReac Intermediate SWELLING Verified 01/17/21 08:04 LEGS AND FEET oxymorphone AdvReac Intermediate FLUID Verified 01/17/21 08:04 RETENTION pregabalin AdvReac Intermediate Aphasia/Speech Verified 01/17/21 08:04 impairments gabapentin AdvReac Mild Aphasia/Speech Verified 01/17/21 08:04 impairments Sulfa (Sulfonamide AdvReac Mild GI SYMPTOMS Verified 01/17/21 08:04 Antibiotics) Home Medications Medication Instructions Recorded Confirmed Type duloxetine 60 mg capsule,delayed 60 mg PO BID 03/12/19 01/17/21 History release (Cymbalta) rivaroxaban 20 mg tablet (Xarelto) 20 mg PO HS 03/12/19 01/17/21 History carvedilol 12.5 mg tablet (Coreg) 12.5 mg PO BID 03/21/19 01/17/21 History dulaglutide 1.5 mg/0.5 mL 1.5 mg SUBCUT WK 07/13/19 01/17/21 History subcutaneous pen injector (Trulicity) ferrous sulfate 325 mg (65 mg 325 mg PO QDB 08/01/19 01/17/21 History iron) tablet (Iron (ferrous sulfate)) pantoprazole 40 mg tablet,delayed 40 mg PO DAILYBB 08/01/19 01/17/21 History release (Protonix) rifaximin 550 mg tablet (Xifaxan) 550 mg PO BID #60 tab 08/15/19 01/17/21 Rx famotidine 20 mg tablet (Pepcid) 20 mg PO BID 09/17/19 01/17/21 History magnesium chloride 64 mg 64 mg PO PM 10/05/19 01/17/21 History (magnesium chloride) tablet,delayed release (Mag 64) spironolactone 25 mg tablet 25 mg PO DAILY 08/22/20 01/17/21 History (Aldactone) baclofen 10 mg tablet 10 mg PO BID PRN #60 tab 11/11/20 01/17/21 Rx albuterol sulfate 90 mcg/actuation 2 inha INH QID PRN 12/14/20 01/17/21 History aerosol inhaler (Ventolin HFA) furosemide 20 mg tablet (Lasix) 20 mg PO TID 12/14/20 01/17/21 History lactulose 10 gram/15 mL oral 30 ml PO QID 12/14/20 01/17/21 History solution (Constulose) levothyroxine 200 mcg tablet 200 mcg PO DAILYBB 12/14/20 01/17/21 History (Synthroid) oxycodone 15 mg tablet (Roxicodone) 15 mg PO TID PRN 12/14/20 01/17/21 History prochlorperazine maleate 5 mg 5 mg PO BID PRN 12/14/20 01/17/21 History tablet (Compazine) insulin aspart U-100 100 unit/mL 10 unit SUBCUT TIDM #0 ml 12/16/20 01/17/21 Rx (3 mL) subcutaneous pen (Novolog Flexpen U-100 Insulin aspart) insulin glargine 100 unit/mL (3 30 unit SUBCUT DAILY #0 ml 12/16/20 01/17/21 Rx mL) subcutaneous pen (Basaglar KwikPen U-100 Insulin) potassium chloride 20 mEq 20 meq PO DAILY #30 tab 12/16/20 01/17/21 Rx tablet,extended release(part/cryst) oxycodone myristate 27 mg capsule 27 mg PO BID 12/26/20 01/17/21 History sprinkle extended release 12hr(DON'T CRUSH) (Xtampza ER) Past Med/Surg History Medical History Abdominal wall cellulitis Acute hepatic encephalopathy Bowel obstruction Cauda equina compression Cellulitis and abscess of trunk (Unknown) Chronic low back pain COPD, group D, by GOLD 2017 classification Deep vein blood clot of left lower extremity RIGHT AND LEFT LEG AND THEN MOVED LUNG - 2001 Diabetes Diabetic neuropathy (01/04/11) Fracture of fourth metatarsal bone of left foot Gastritis Hyperammonemia Hypokalemia Hypomagnesemia Incarcerated ventral hernia Kidney stone HX OF AND HAD LITHOTRIPSY RIMA (obstructive sleep apnea) HX OF AND NO CURRENT PROBLEM Paroxysmal A-fib 2013 on Xarelto Pyelonephritis Rectal bleeding Septic shock Severe sepsis Splenomegaly, not elsewhere classified Supratherapeutic INR UTI (urinary tract infection) Surgical History History of appendectomy History of arthroplasty of right knee Hx of lithotripsy Hx of ventral hernia repair S/P cholecystectomy S/P sinus surgery S/P MARLEE (total abdominal hysterectomy) Family History Father Cancer Liver Brother Kidney disease Renal failure Cirrhosis Brother Cirrhosis Other Family history non-contributory Social History Smoking Status: Current every day smoker Tobacco Type: Cigarettes Cigarettes Per Day: 1/2 PPD; Second Hand Exposure: Yes; Hx Alcohol Use: No Hx Substance Use: No Preferred Language: Thai Communication Ability: Unable Communication Ability Comment: Intubated - unable to follow/understand commands at this time Control Technician Required: No Beliefs That Will Affect Care: None marital status: Current Living Situation: Significant Other Current Living Situation Comment: per ER documentation, pt resides with significant other current occupational status: disabled Other Information That Helps Us Care for You: No Feels Safe at Home: Yes Safety Concerns: Feels Safe At This Time Assistive Devices: Walker and Wheelchair Assistive Devices Comment: Per medical record: "pt doesn't wear dentures - she claims they don't fit" Review of Systems Review of Systems: Unobtainable due to endotracheal tube Physical Exam Physical Exam: Physical Exam: Vitals signs as noted above General Appearance:Morbidly Obese, Intubated Head: normocephalic, Atraumatic Eyes: normal inspection Neck: supple, Trachea midline Respiratory/Chest: Decreased breath sounds, CTA, No accessory muscle use Cardiovascular: S1, S2, No murmur Abdomen/GI:Soft, Non tender, Bowel sounds present Extremities/Musculoskeletal:normal inspection, Chronic venous stasis changes Neurologic/Psych:Intubated Skin: normal color, warm Results & Data Results & Data ([facility]) Vital Signs (Past 12 Hours) Vital Signs Temp Pulse Pulse Resp BP BP Pulse Ox 01/17/21 07:10 99 H 100 01/17/21 07:05 99 H 97 01/17/21 07:00 100 H 94 01/17/21 06:55 104 H 100 01/17/21 06:50 109 H 100 01/17/21 06:45 78 01/17/21 06:40 88 01/17/21 06:35 95 H 01/17/21 06:07 109 H 26 H 83/48 L 94 01/17/21 06:00 22 83/48 L 01/17/21 05:49 36.4 C L 109 H 24 83/63 L 94 Laboratory Results Short CBC 01/17/21 Range/Units 07:09 WBC 23.40 H (4.8-10.8) K/uL Hgb 7.7 L (12.0-16.0) g/dL Hct 24.6 L (37-47) % Plt Count 156 (130-400) K/uL BMP 01/17/21 07:09 Sodium 134 L Potassium 4.5 Chloride 103 Carbon Dioxide 16 L BUN 12 Creatinine 1.66 H Glucose 362 H* Calcium 7.7 L Cardiac Enzymes 01/17/21 Range/Units 07:09 Troponin I 0.030 (0-0.045) ng/ml Liver Function 01/17/21 Range/Units 07:09 Total Bilirubin 3.5 H (0.2-1) mg/dl AST 51 H (15-37) U/L ALT 27 (12-78) U/L Alkaline Phosphatase 170 H (45-117) U/L Albumin 1.4 L (3.4-5.0) gm/dl Diagnostic Findings CXR:1. Lines and tubes as above. No pneumothorax. 2. Cardiomegaly with pulmonary vascular congestion. 2. Trace pleural effusions with mild bibasilar opacities. ECG Additional Comments: EKG: Sinus tachycardia with first-degree AV block. Low voltage QRS. QTC 479.
[2021-01-17 07:51] LABS: Albumin Globulin Ratio 0.5 (0.9-2); Albumin Level 1.4 gm/dl (3.4-5.0); BUN Creatinine Ratio 6.9 (10-20); Beta-Hydroxybutyrate 0.88 mg/dl (0.2-2.81); Bilirubin,Total 3.5 mg/dl (0.2-1); Calcium 7.7 mg/dl (8.5-10.1); Creatinine Clr Calc Pharmacy 52.7 ml/min; Est GFR (African American) 39.2 ml/min; Est GFR (Non-African American) 33.9 ml/min; Magnesium 1.8 mg/dl (1.8-2.4); Potassium 4.5 mmol/L (3.5-5.1); Total Protein 4.4 gm/dl (6.4-8.2); Troponin I 0.03 ng/ml (0-0.045)
--- NOTE | 2021-01-17 07:58 | XRay Report ---
XR chest 1V portable HISTORY: 55 years-old Female post intubation acute respiratory failure COMPARISON: Chest radiograph 12/28/2020 TECHNIQUE: Semierect portable AP view of the chest FINDINGS: Endotracheal tube terminates 3.8 cm superior to the lenard. Enteric tube courses below the diaphragm with distal tip projects over the distal stomach. Cholecystectomy. Mild right hemidiaphragmatic eleva tion. Moderate cardiomegaly. Suspected trace pleural effusions with mild bibasilar opacities. No pneu mothorax. No acute fracture. IMPRESSION: 1. Satisfactory positioning of the endotracheal and enteric tubes. 2. Cardiomegaly without pulmonary edema. 3. Suspected trace pleural effusions with left basilar predominant consolidation suggestive of atelec tasis versus pneumonia. ACT 112: Negative or not required by law. The above report was generated using voice recognition software. It may contain grammatical, syntax o r spelling errors. Electronically signed by: Darrel Rees M.D. 01/17/2021 7:57 AM
[2021-01-17 08:05] LABS: INR 2.7 (0.9-1.1); Partial Thromboplastin Ratio 1.7; Prothrombin Time 25.3 Seconds (9.0-12.0)
[2021-01-17 08:15] LABS: D Dimer 19810 ug/L FEU (0-500); Partial Thromboplastin Time 45.1 Seconds (21.0-31.0)
--- NOTE | 2021-01-17 08:15 | Emergency Department Note ---
History of Present Illness General Chief complaint: Back Injury/Pain Stated complaint: FALL w/ LOW BACK PAIN AND SHORT OF BREATH Time Seen by Provider: 01/17/21 05:33 History of Present Illness Maximum Pain Intensity: 10 This is a 55-year-old female presenting to the emergency department for evaluation of back pain and shortness of breath after a fall that occurred just prior to arrival. The patient is well-known to this facility, and has been seen several times this week. Evidently the patient got up to go to the bathroom, and had a mechanical fall. The patient's caregiver had difficulty getting her off the floor and contacted 911. She does arrive via EMS for her symptoms. She rates her pain in her low back a 10/10, dull, and nonradiating. The patient has a very complicated past medical history doing COPD, paroxysmal A. fib, diabetes, hepatic encephalopathy, and chronic pain. She does follow with a pain management clinic in [facility], and recently started Xtampza, and extended release oxycodone product, last month. Home Medications Medication Instructions Recorded Confirmed Type duloxetine 60 mg capsule,delayed 60 mg PO BID 03/12/19 01/17/21 History release (Cymbalta) rivaroxaban 20 mg tablet (Xarelto) 20 mg PO HS 03/12/19 01/17/21 History carvedilol 12.5 mg tablet (Coreg) 12.5 mg PO BID 03/21/19 01/17/21 History dulaglutide 1.5 mg/0.5 mL 1.5 mg SUBCUT WK 07/13/19 01/17/21 History subcutaneous pen injector (Trulicity) ferrous sulfate 325 mg (65 mg 325 mg PO QDB 08/01/19 01/17/21 History iron) tablet (Iron (ferrous sulfate)) pantoprazole 40 mg tablet,delayed 40 mg PO DAILYBB 08/01/19 01/17/21 History release (Protonix) rifaximin 550 mg tablet (Xifaxan) 550 mg PO BID #60 tab 08/15/19 01/17/21 Rx famotidine 20 mg tablet (Pepcid) 20 mg PO BID 09/17/19 01/17/21 History magnesium chloride 64 mg 64 mg PO PM 10/05/19 01/17/21 History (magnesium chloride) tablet,delayed release (Mag 64) spironolactone 25 mg tablet 25 mg PO DAILY 08/22/20 01/17/21 History (Aldactone) baclofen 10 mg tablet 10 mg PO BID PRN #60 tab 11/11/20 01/17/21 Rx albuterol sulfate 90 mcg/actuation 2 inha INH QID PRN 12/14/20 01/17/21 History aerosol inhaler (Ventolin HFA) furosemide 20 mg tablet (Lasix) 20 mg PO TID 12/14/20 01/17/21 History lactulose 10 gram/15 mL oral 30 ml PO QID 12/14/20 01/17/21 History solution (Constulose) levothyroxine 200 mcg tablet 200 mcg PO DAILYBB 12/14/20 01/17/21 History (Synthroid) oxycodone 15 mg tablet (Roxicodone) 15 mg PO TID PRN 12/14/20 01/17/21 History prochlorperazine maleate 5 mg 5 mg PO BID PRN 12/14/20 01/17/21 History tablet (Compazine) insulin aspart U-100 100 unit/mL 10 unit SUBCUT TIDM #0 ml 12/16/20 01/17/21 Rx (3 mL) subcutaneous pen (Novolog Flexpen U-100 Insulin aspart) insulin glargine 100 unit/mL (3 30 unit SUBCUT DAILY #0 ml 12/16/20 01/17/21 Rx mL) subcutaneous pen (Basaglar KwikPen U-100 Insulin) potassium chloride 20 mEq 20 meq PO DAILY #30 tab 12/16/20 01/17/21 Rx tablet,extended release(part/cryst) oxycodone myristate 27 mg capsule 27 mg PO BID 12/26/20 01/17/21 History sprinkle extended release 12hr(DON'T CRUSH) (Xtampza ER) Allergies Allergy/AdvReac Type Severity Reaction Status Date / Time Iodinated Contrast Media Allergy Intermediate hives-PT Verified 01/17/21 08:04 DENIES SEE NOTE adhesive Allergy Mild RED RASH Verified 01/17/21 08:04 CAUSED BY PAPER TAPE vancomycin AdvReac Severe renal Verified 01/17/21 08:04 failure, required dialysis x 3 MONTHS acetaminophen AdvReac Intermediate Liver Verified 01/17/21 08:04 problems. alprazolam AdvReac Intermediate MAKES Verified 01/17/21 08:04 LOOPY,DO AND SAY SILLY THINGS codeine AdvReac Intermediate UPSET Verified 01/17/21 08:04 STOMACH haloperidol AdvReac Intermediate nervous Verified 01/17/21 08:04 and anxious metformin AdvReac Intermediate HANDS FEET Verified 01/17/21 08:04 FACE NUMB methylparaben AdvReac Intermediate FLUID Verified 01/17/21 08:04 RETENTION morphine AdvReac Intermediate SWELLING Verified 01/17/21 08:04 LEGS AND FEET oxymorphone AdvReac Intermediate FLUID Verified 01/17/21 08:04 RETENTION pregabalin AdvReac Intermediate Aphasia/Speech Verified 01/17/21 08:04 impairments gabapentin AdvReac Mild Aphasia/Speech Verified 01/17/21 08:04 impairments Sulfa (Sulfonamide AdvReac Mild GI SYMPTOMS Verified 01/17/21 08:04 Antibiotics) Past Med/Surg History Medical History Abdominal wall cellulitis Acute hepatic encephalopathy Bowel obstruction Cauda equina compression Cellulitis and abscess of trunk (Unknown) Chronic low back pain COPD, group D, by GOLD 2017 classification Deep vein blood clot of left lower extremity RIGHT AND LEFT LEG AND THEN MOVED LUNG - 2002 Diabetes Diabetic neuropathy (01/04/11) Fracture of fourth metatarsal bone of left foot Gastritis Hyperammonemia Hypokalemia Hypomagnesemia Incarcerated ventral hernia Kidney stone HX OF AND HAD LITHOTRIPSY RIMA (obstructive sleep apnea) HX OF AND NO CURRENT PROBLEM Paroxysmal A-fib 2013 on Xarelto Pyelonephritis Rectal bleeding Septic shock Severe sepsis Splenomegaly, not elsewhere classified Supratherapeutic INR UTI (urinary tract infection) Surgical History History of appendectomy History of arthroplasty of right knee Hx of lithotripsy Hx of ventral hernia repair S/P cholecystectomy S/P sinus surgery S/P MARLEE (total abdominal hysterectomy) Family History Father Cancer Liver Brother Kidney disease Renal failure Cirrhosis Brother Cirrhosis Other Family history non-contributory Social History Smoking Status: Current every day smoker Tobacco Type: Cigarettes Cigarettes Per Day: 1/2 PPD; Second Hand Exposure: Yes; Hx Alcohol Use: No Hx Substance Use: No Preferred Language: [place] Communication Ability: Unable Communication Ability Comment: Intubated - unable to follow/understand commands at this time Linseed Oil Order Filler Required: No Beliefs That Will Affect Care: None marital status: Current Living Situation: Significant Other Current Living Situation Comment: per ER documentation, pt resides with significant other current occupational status: disabled Other Information That Helps Us Care for You: No Feels Safe at Home: Yes Safety Concerns: Feels Safe At This Time Assistive Devices: Walker and Wheelchair Assistive Devices Comment: Per medical record: "pt doesn't wear dentures - she claims they don't fit" Review of Systems A total of 10 systems reviewed and were otherwise negative Physical Exam Vital Signs Vital Signs - 24 hr 01/17/21 05:49 01/17/21 06:00 01/17/21 06:07 Temperature 36.4 C L Temperature Source Oral Pulse Rate 109 H Pulse Rate [Bilateral Apical] 109 H Pulse Rate from SpO2 Sensor 147 H Respiratory Rate 24 22 26 H Blood Pressure 83/63 L 83/48 L Blood Pressure [Left Arm] 83/48 L Blood Pressure Mean 69 59 Blood Pressure Mean [Left Arm] 59 Pulse Oximetry 94 94 Oxygen Delivery Method Nasal Cannula Nasal Cannula Oxygen Flow Rate 4 3 Fraction of Inspired Oxygen Sepsis Recent Fever Within 48 Hours No Sepsis New/Unexplained Change in Mental Status N/A Sepsis Action Taken by Nursing Previously Notified End-Tidal CO2 01/17/21 06:35 01/17/21 06:40 01/17/21 06:45 Temperature Temperature Source Pulse Rate 95 H 88 78 Pulse Rate [Bilateral Apical] Pulse Rate from SpO2 Sensor Respiratory Rate Blood Pressure Blood Pressure [Left Arm] Blood Pressure Mean Blood Pressure Mean [Left Arm] Pulse Oximetry Oxygen Delivery Method Oxygen Flow Rate Fraction of Inspired Oxygen Sepsis Recent Fever Within 48 Hours Sepsis New/Unexplained Change in Mental Status Sepsis Action Taken by Nursing End-Tidal CO2 01/17/21 06:50 01/17/21 06:55 01/17/21 07:00 Temperature Temperature Source Pulse Rate 109 H 104 H 100 H Pulse Rate [Bilateral Apical] Pulse Rate from SpO2 Sensor 109 H 104 H 100 H Respiratory Rate Blood Pressure Blood Pressure [Left Arm] Blood Pressure Mean Blood Pressure Mean [Left Arm] Pulse Oximetry 100 100 94 Oxygen Delivery Method Mechanical Vent Mechanical Vent Mechanical Vent Oxygen Flow Rate Fraction of Inspired Oxygen 100 100 100 Sepsis Recent Fever Within 48 Hours Sepsis New/Unexplained Change in Mental Status Sepsis Action Taken by Nursing End-Tidal CO2 30 29 01/17/21 07:05 01/17/21 07:10 01/17/21 07:15 Temperature Temperature Source Pulse Rate 99 H 99 H 95 H Pulse Rate [Bilateral Apical] Pulse Rate from SpO2 Sensor 98 H 98 H 95 H Respiratory Rate Blood Pressure Blood Pressure [Left Arm] Blood Pressure Mean Blood Pressure Mean [Left Arm] Pulse Oximetry 97 100 100 Oxygen Delivery Method Mechanical Vent Room Air Mechanical Vent Oxygen Flow Rate Fraction of Inspired Oxygen 100 100 100 Sepsis Recent Fever Within 48 Hours Sepsis New/Unexplained Change in Mental Status Sepsis Action Taken by Nursing End-Tidal CO2 30 27 30 01/17/21 07:20 01/17/21 07:25 01/17/21 07:30 Temperature Temperature Source Pulse Rate 94 H 95 H 96 H Pulse Rate [Bilateral Apical] Pulse Rate from SpO2 Sensor 95 H 95 H 96 H Respiratory Rate Blood Pressure Blood Pressure [Left Arm] Blood Pressure Mean Blood Pressure Mean [Left Arm] Pulse Oximetry 100 100 100 Oxygen Delivery Method Mechanical Vent Mechanical Vent Mechanical Vent Oxygen Flow Rate Fraction of Inspired Oxygen 100 100 100 Sepsis Recent Fever Within 48 Hours Sepsis New/Unexplained Change in Mental Status Sepsis Action Taken by Nursing End-Tidal CO2 30 31 31 01/17/21 07:35 01/17/21 07:40 01/17/21 07:45 Temperature Temperature Source Pulse Rate 95 H 83 85 Pulse Rate [Bilateral Apical] Pulse Rate from SpO2 Sensor 95 H 92 H 93 H Respiratory Rate Blood Pressure Blood Pressure [Left Arm] Blood Pressure Mean Blood Pressure Mean [Left Arm] Pulse Oximetry 100 100 100 Oxygen Delivery Method Mechanical Vent Mechanical Vent Mechanical Vent Oxygen Flow Rate Fraction of Inspired Oxygen 100 100 100 Sepsis Recent Fever Within 48 Hours Sepsis New/Unexplained Change in Mental Status Sepsis Action Taken by Nursing End-Tidal CO2 35 35 33 01/17/21 07:50 01/17/21 07:55 01/17/21 07:59 Temperature Temperature Source Pulse Rate 101 H 105 H Pulse Rate [Bilateral Apical] Pulse Rate from SpO2 Sensor 92 H Respiratory Rate 30 H Blood Pressure Blood Pressure [Left Arm] 104/90 Blood Pressure Mean Blood Pressure Mean [Left Arm] 94 Pulse Oximetry 100 Oxygen Delivery Method Mechanical Vent Mechanical Vent Oxygen Flow Rate Fraction of Inspired Oxygen 100 100 Sepsis Recent Fever Within 48 Hours Sepsis New/Unexplained Change in Mental Status Sepsis Action Taken by Nursing End-Tidal CO2 36 28 VITALS: Vitals are noted on the nurse's note and reviewed by myself. Vital signs with slightly low blood pressure. GENERAL: Chronically ill-appearing white female who appears in her normal state. She does not appear in any acute distress. HEAD: Normocephalic atraumatic. HEART: Regular rate and rhythm without murmurs gallops or rubs. LUNGS: Clear to auscultation bilaterally without wheezes, rales or rhonchi. No retractions or accessory muscle use. BACK: Tenderness noted primarily through the lower lumbar spine MUSCULOSKELETAL: No muscle atrophy, erythema, or edema noted. Full range of motion in all extremities NEURO: Patient was alert and answering questions appropriately. Course Administered Medications Norepinephrine Bitartrate (Levophed/D5w) 16 mg in 500 mls @ 261.563 mls/hr IV .Q1H55M [facility]; Protocol Stop: 02/16/21 11:29 Last Admin: 01/17/21 20:10 Dose: 0.9 mcg/kg/min, 261.6 mls/hr Documented by: [id number] Cosigned by: [id number] Titration: 01/17/21 19:59 Dose: 0.9 mcg/kg/min, 261.6 mls/hr Documented by: [id number] Cosigned by: [id number] Titration: 01/17/21 19:03 Dose: 0.9 mcg/kg/min, 261.6 mls/hr Documented by: [id number] Cosigned by: [id number] Admin: 01/17/21 18:04 Dose: 0.9 mcg/kg/min, 261.6 mls/hr Documented by: [id number] Cosigned by: [id number] Titration: 01/17/21 17:58 Dose: 0.9 mcg/kg/min, 261.6 mls/hr Documented by: [id number] Cosigned by: [id number] Admin: 01/17/21 16:03 Dose: 0.9 mcg/kg/min, 261.6 mls/hr Documented by: [id number] Cosigned by: [id number] Titration: 01/17/21 16:03 Dose: 0.9 mcg/kg/min, 261.6 mls/hr Documented by: [id number] Cosigned by: [id number] Admin: 01/17/21 14:34 Dose: 0.9 mcg/kg/min, 261.6 mls/hr Documented by: [id number] Cosigned by: [id number] Titration: 01/17/21 14:19 Dose: 0.9 mcg/kg/min, 261.6 mls/hr Documented by: [id number] Cosigned by: [id number] Titration: 01/17/21 13:13 Dose: 0.9 mcg/kg/min, 261.6 mls/hr Documented by: [id number] Admin: 01/17/21 12:10 Dose: 0.7 mcg/kg/min, 203.4 mls/hr Documented by: [id number] Cosigned by: [id number] Pantoprazole Sodium 40 mg/ (Syringe) 10 mls @ 5 mls/min IV Q24H PAUL Stop: 02/16/21 11:59 Last Admin: 01/17/21 12:10 Dose: 5 mls/min Documented by: [id number] Vasopressin 20 units/ Sodium (Chloride) 101 mls @ 12.12 mls/hr IV .Q8H20M PAUL Stop: 02/16/21 12:29 Last Admin: 01/17/21 20:20 Dose: 0.04 unit/min, 12.1 mls/hr Documented by: [id number] Cosigned by: [id number] Infusion: 01/17/21 20:11 Dose: 0.04 unit/min, 12.1 mls/hr Documented by: [id number] Cosigned by: [id number] Infusion: 01/17/21 19:03 Dose: 0.04 unit/min, 12.1 mls/hr Documented by: [id number] Cosigned by: [id number] Admin: 01/17/21 12:47 Dose: 0.04 unit/min, 12.1 mls/hr Documented by: [id number] Cosigned by: [id number] Epinephrine HCl () 4 mg in 254 mls @ 11.811 mls/hr IV .[id number] PAUL; Protocol Stop: 02/16/21 12:59 Last Titration: 01/17/21 20:51 Dose: 2 mcg/kg/min, 1,181.1 mls/hr Documented by: [id number] Titration: 01/17/21 20:50 Dose: 0.19 mcg/kg/min, 112.2 mls/hr Documented by: [id number] Titration: 01/17/21 20:45 Dose: 0.18 mcg/kg/min, 106.3 mls/hr Documented by: [id number] Titration: 01/17/21 20:40 Dose: 0.17 mcg/kg/min, 100.4 mls/hr Documented by: [id number] Titration: 01/17/21 20:35 Dose: 0.16 mcg/kg/min, 94.5 mls/hr Documented by: [id number] Titration: 01/17/21 20:27 Dose: 0.15 mcg/kg/min, 88.6 mls/hr Documented by: [id number] Admin: 01/17/21 20:20 Dose: 0.14 mcg/kg/min, 82.7 mls/hr Documented by: [id number] Cosigned by: [id number] Titration: 01/17/21 20:01 Dose: 0.14 mcg/kg/min, 82.7 mls/hr Documented by: [id number] Cosigned by: [id number] Titration: 01/17/21 19:04 Dose: 0.14 mcg/kg/min, 82.7 mls/hr Documented by: [id number] Cosigned by: [id number] Admin: 01/17/21 16:56 Dose: 0.14 mcg/kg/min, 82.7 mls/hr Documented by: [id number] Cosigned by: [id number] Titration: 01/17/21 16:56 Dose: 0.14 mcg/kg/min, 82.7 mls/hr Documented by: [id number] Cosigned by: [id number] Titration: 01/17/21 16:07 Dose: 0.14 mcg/kg/min, 82.7 mls/hr Documented by: [id number] Titration: 01/17/21 14:34 Dose: 0.12 mcg/kg/min, 70.9 mls/hr Documented by: [id number] Titration: 01/17/21 13:55 Dose: 0.1 mcg/kg/min, 59.1 mls/hr Documented by: [id number] Titration: 01/17/21 13:36 Dose: 0.06 mcg/kg/min, 35.4 mls/hr Documented by: [id number] Titration: 01/17/21 13:31 Dose: 0.05 mcg/kg/min, 29.5 mls/hr Documented by: [id number] Titration: 01/17/21 13:14 Dose: 0.03 mcg/kg/min, 17.7 mls/hr Documented by: [id number] Admin: 01/17/21 13:01 Dose: 0.02 mcg/kg/min, 11.8 mls/hr Documented by: [id number] Cosigned by: [id number] Insulin Human Regular 250 (units/ Sodium Chloride) 250 mls @ 7 mls/hr IV .Q24H PAUL; Protocol Stop: 02/16/21 13:14 Last Titration: 01/17/21 19:42 Dose: 7 units/hr, 7 mls/hr Documented by: [id number] Cosigned by: [id number] Titration: 01/17/21 19:04 Dose: 5.8 units/hr, 5.8 mls/hr Documented by: [id number] Cosigned by: [id number] Titration: 01/17/21 18:19 Dose: 5.8 units/hr, 5.8 mls/hr Documented by: [id number] Cosigned by: [id number] Titration: 01/17/21 17:26 Dose: 5.8 units/hr, 5.8 mls/hr Documented by: [id number] Cosigned by: [id number] Admin: 01/17/21 16:04 Dose: 5.8 units/hr, 5.8 mls/hr Documented by: [id number] Cosigned by: [id number] Ascorbic Acid 1,500 mg/Thiamine HCl 100 mg/ Sodium Chloride 104 mls @ 207 mls/hr IV Q6H PAUL Stop: 01/21/21 10:31 Last Infusion: 01/17/21 16:34 Dose: 0 mls/hr Documented by: [id number] Admin: 01/17/21 16:03 Dose: 207 mls/hr Documented by: [id number] Insulin Aspart (Insulin Aspart 100 Units/Ml 3 Ml Pen) 0 units SC ACHS PAUL Stop: 02/16/21 16:29 Last Admin: 01/17/21 17:28 Dose: Not Given Documented by: [id number] Cosigned by: [id number] Lactulose (Lactulose Syrup 20 Gm/30 Ml Udc) 20 gm PO QID PAUL Stop: 02/16/21 12:59 Last Admin: 01/17/21 17:28 Dose: 20 gm Documented by: [id number] Admin: 01/17/21 12:10 Dose: 20 gm Documented by: [id number] Discontinued Medications Diphenhydramine HCl (Diphenhydramine 50 Mg/Ml Vial) 25 mg IV NOW STA Stop: 01/17/21 07:26 Last Admin: 01/17/21 17:59 Dose: Not Given Documented by: [id number] Diphenhydramine HCl (Diphenhydramine 50 Mg/Ml Vial) Confirm Administered Dose 50 mg .ROUTE .STK-MED ONE Stop: 01/17/21 09:30 Last Admin: 01/17/21 11:50 Dose: Not Given Documented by: [id number] Sodium Chloride (Nss 1000ml) 1,000 mls @ 999 mls/hr IV .Q1H1M ONE Stop: 01/17/21 07:58 Last Infusion: 01/17/21 08:34 Dose: 0 mls/hr Documented by: [id number] Admin: 01/17/21 06:59 Dose: 999 mls/hr Documented by: [id number] Norepinephrine Bitartrate (Levophed/D5w) 8 mg in 508 mls @ 324.803 mls/hr IV .Q1H34M PAUL; Protocol Stop: 01/17/21 11:30 Last Titration: 01/17/21 11:49 Dose: 0 mcg/kg/min, 0 mls/hr Documented by: [id number] Titration: 01/17/21 10:02 Dose: 0.55 mcg/kg/min, 324.8 mls/hr Documented by: [id number] Titration: 01/17/21 09:48 Dose: 0.44 mcg/kg/min, 259.8 mls/hr Documented by: [id number] Titration: 01/17/21 09:42 Dose: 0.4 mcg/kg/min, 236.2 mls/hr Documented by: [id number] Titration: 01/17/21 09:13 Dose: 0.36 mcg/kg/min, 212.6 mls/hr Documented by: [id number] Titration: 01/17/21 08:55 Dose: 0.32 mcg/kg/min, 189 mls/hr Documented by: [id number] Titration: 01/17/21 07:50 Dose: 0.3 mcg/kg/min, 177.2 mls/hr Documented by: [id number] Admin: 01/17/21 07:24 Dose: 0.15 mcg/kg/min, 88.6 mls/hr Documented by: [id number] Cosigned by: [id number] Parenteral Electrolytes (Normosol-R) 1,000 mls @ 999 mls/hr IV .Q1H1M ONE Stop: 01/17/21 12:49 Last Infusion: 01/17/21 13:33 Dose: 0 mls/hr Documented by: [id number] Admin: 01/17/21 12:10 Dose: 999 mls/hr Documented by: [id number] Tranexamic Acid (Tranexamic Acid / 0.7% Nacl) 1,000 mg in 100 mls @ 600 mls/hr IV NOW STA Stop: 01/17/21 14:32 Last Infusion: 01/17/21 15:17 Dose: 0 mls/hr Documented by: [id number] Admin: 01/17/21 14:33 Dose: 600 mls/hr Documented by: [id number] Phytonadione 10 mg/ Sodium (Chloride) 51 mls @ 102 mls/hr IV ONE ONE Stop: 01/17/21 14:44 Last Infusion: 01/17/21 15:17 Dose: 0 mls/hr Documented by: [id number] Admin: 01/17/21 14:33 Dose: 102 mls/hr Documented by: [id number] Calcium Gluconate 1,000 mg/ (Sodium Chloride) 60 mls @ 240 mls/hr IV NOW ONE Stop: 01/17/21 17:44 Last Infusion: 01/17/21 18:31 Dose: 0 mls/hr Documented by: [id number] Admin: 01/17/21 18:04 Dose: 240 mls/hr Documented by: [id number] Insulin Human Regular (Novolin-R Bolus From Bag) 6 units IV ONE ONE Stop: 01/17/21 13:16 Last Admin: 01/17/21 16:03 Dose: 6 units Documented by: [id number] Cosigned by: [id number] Methylprednisolone (Methylprednisolone 125 Mg/2 Ml Vial) 125 mg IV NOW STA Stop: 01/17/21 07:26 Last Admin: 01/17/21 11:50 Dose: Not Given Documented by: [id number] Methylprednisolone (Methylprednisolone 125 Mg/2 Ml Vial) Confirm Administered Dose 125 mg .ROUTE .STK-MED ONE Stop: 01/17/21 09:31 Last Admin: 01/17/21 11:51 Dose: Not Given Documented by: [id number] Miscellaneous (Rapid Sequence Induction Bag) Confirm Administered Dose 1 ea .ROUTE .STK-MED ONE Stop: 01/17/21 06:46 Last Admin: 01/17/21 06:53 Dose: Not Given Documented by: [id number] Miscellaneous (Stat Iv Infusion Titration Per Protocol) 1 ea N/A NOW Stop: 01/17/21 07:23 Last Admin: 01/17/21 08:34 Dose: Not Given Documented by: [id number] Naloxone HCl (Naloxone Hcl Inj 1 Mg/Ml 2ml Syr) 2 mg INTNAS ONE ONE Stop: 01/17/21 06:17 Last Admin: 01/17/21 06:54 Dose: 2 mg Documented by: [id number] Naloxone HCl (Naloxone Hcl 0.4 Mg/1 Ml Vial/Carp) Confirm Administered Dose 0.4 mg .ROUTE .STK-MED ONE Stop: 01/17/21 06:22 Last Admin: 01/17/21 06:54 Dose: 0.4 mg Documented by: [id number] Norepinephrine Bitartrate (Norepinephrine/D5w 8 Mg/508 Ml) Confirm Administered Dose 8 mg IV .STK-MED ONE Stop: 01/17/21 07:19 Last Admin: 01/17/21 07:21 Dose: 8 mg Documented by: [id number] Norepinephrine Bitartrate (Norepinephrine/D5w 8 Mg/508 Ml) Confirm Administered Dose 8 mg IV .STK-MED ONE Stop: 01/17/21 20:09 Last Admin: 01/17/21 20:10 Dose: Not Given Documented by: [id number] Sodium Bicarbonate (Sodium Bicarb 8.4% Inj 50 Meq/50 Ml Syr) Confirm Administered Dose 150 meq IV .STK-MED ONE Stop: 01/17/21 11:56 Last Admin: 01/17/21 12:10 Dose: 150 meq Documented by: [id number] Sodium Bicarbonate (Sodium Bicarb 8.4% Inj 50 Meq/50 Ml Syr) Confirm Administered Dose 100 meq IV .STK-MED ONE Stop: 01/17/21 12:56 Last Admin: 01/17/21 13:01 Dose: 100 meq Documented by: [id number] Sodium Bicarbonate (Sodium Bicarb 8.4% Inj 50 Meq/50 Ml Syr) 100 meq IV NOW STA Stop: 01/17/21 12:58 Last Admin: 01/17/21 13:06 Dose: Not Given Documented by: [id number] Sodium Bicarbonate (Sodium Bicarb 8.4% Inj 50 Meq/50 Ml Syr) 100 meq IV NOW STA Stop: 01/17/21 17:04 Last Admin: 01/17/21 17:25 Dose: 100 meq Documented by: [id number] Medical Decision Making Differential Diagnosis Differential diagnosis: Etiologies such as overdose, sepsis, UTI, pneumonia, bacteremia, metabolic process, electrolyte abnormalities, cardiac sources, intracerebral event, intra- abdominal process, toxicological process, neurologic process, as well as others were entertained. Laboratory Data Result diagrams: 01/17/21 18:13 01/17/21 07:09 Lab Results 01/17/21 01/17/21 01/17/21 Range/Units 06:37 07:00 07:00 WBC (4.8-10.8) K/uL RBC (4.2-5.4) M/uL Hgb (12.0-16.0) g/dL Hct (37-47) % MCV (80-100) fL MCH (25-34) pg MCHC (32-36) g/dL RDW Std Deviation (36.4-46.3) fL RDW Coeff of Mari (11.5-14.5) % Plt Count (130-400) K/uL MPV (7.4-10.4) fL Absolute Nucleated RBC (0-0) K/uL Nucleated RBC % (auto) % Neutrophils % (Manual) % Lymphocytes % (Manual) % Monocytes % (Manual) % Metamyelocytes % (Man) % Promyelocytes % (Man) % Neutrophils # (Manual) (1.4-6.5) K/uL Total Absolute Neuts (1.4-6.5) K/uL Lymphocytes # (Manual) (1.2-3.4) K/uL Total Abs Lymphocytes (1.2-3.4) K/uL Monocytes # (Manual) (0.11-0.59) K/uL Metamyelocytes # (Man) (0-0) K/uL Promyelocytes # (Man) (0-0) K/uL Toxic Vacuolation Macrocytosis Echinocytes PT (9.0-12.0) Seconds INR (0.9-1.1) APTT (21.0-31.0) Seconds PTT Ratio D-Dimer (0-500) ug/L FEU Sodium (136-145) mmol/L Potassium (3.5-5.1) mmol/L Chloride (98-107) mmol/L Carbon Dioxide (21-32) mmol/L Anion Gap (3-11) BUN (7-18) mg/dl Creatinine (0.6-1.2) mg/dl Est Cr Clr Drug Dosing ml/min Est GFR ( Amer) ml/min Est GFR (Non-Af Amer) ml/min BUN/Creatinine Ratio (10-20) Glucose (70-99) mg/dl POC Glucose 410 H* (70-99) mg/dl Lactate (0.4-2.0) mmol/L Calcium (8.5-10.1) mg/dl Magnesium (1.8-2.4) mg/dl Total Bilirubin (0.2-1) mg/dl AST (15-37) U/L ALT (12-78) U/L Alkaline Phosphatase (45-117) U/L Ammonia (11-32) umol/L Troponin I (0-0.045) ng/ml Total Protein (6.4-8.2) gm/dl Albumin (3.4-5.0) gm/dl Globulin (2.5-4.0) gm/dl Albumin/Globulin Ratio (0.9-2) Lipase (73-393) U/L Beta-Hydroxybutyric Acd (0.2-2.81) mg/dl Procalcitonin (0-0.5) ng/ml TSH (0.300-4.500) uIu/ml Adenovirus (PCR) Not Detected (NotDetected) B. pertussis DNA (PCR) Not Detected (NotDetected) B.parapertussis DNA PCR Not Detected (NotDetected) C. pneumoniae DNA (PCR) Not Detected (NotDetected) Coronavirus OC43 (PCR) Not Detected (NotDetected) Coronavirus HKU1 (PCR) Not Detected (NotDetected) Coronavirus 229E (PCR) Not Detected (NotDetected) COVID-19 Eval Order RESPNP at [facility] SARS-CoV-2 (PCR) Not Detected (NotDetected) Coronavirus NL63 (PCR) Not Detected (NotDetected) Human Metapneumovir PCR Not Detected (NotDetected) Influenza Type A (PCR) Not Detected (NotDetected) Influenza Type B (PCR) Not Detected (NotDetected) M. pneumoniae (PCR) Not Detected (NotDetected) Parainfluenza 1 (PCR) Not Detected (NotDetected) Parainfluenza 2 (PCR) Not Detected (NotDetected) Parainfluenza 3 (PCR) Not Detected (NotDetected) Parainfluenza 4 (PCR) Not Detected (NotDetected) RSV (PCR) Not Detected (NotDetected) Entero/Rhino (PCR) Not Detected (NotDetected) 01/17/21 01/17/21 01/17/21 Range/Units 07:09 07:09 07:09 WBC 23.40 H (4.8-10.8) K/uL RBC 2.11 L (4.2-5.4) M/uL Hgb 7.7 L (12.0-16.0) g/dL Hct 24.6 L (37-47) % MCV 116.6 H (80-100) fL MCH 36.5 H (25-34) pg MCHC 31.3 L (32-36) g/dL RDW Std Deviation 70.8 H (36.4-46.3) fL RDW Coeff of Mari 17.2 H (11.5-14.5) % Plt Count 156 (130-400) K/uL MPV 10.1 (7.4-10.4) fL Absolute Nucleated RBC 0.35 H (0-0) K/uL Nucleated RBC % (auto) 1.5 % Neutrophils % (Manual) 60.9 % Lymphocytes % (Manual) 24.3 % Monocytes % (Manual) 10.4 % Metamyelocytes % (Man) 0.9 % Promyelocytes % (Man) 3.5 % Neutrophils # (Manual) 14.25 H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
[2021-01-17 08:26] LABS: ALC (manual) 5.69 K/uL (1.2-3.4); ANC (manual) 14.25 K/uL (1.4-6.5); Echinocytes 2+; Lymphocytes # (manual) 5.69 K/uL (1.2-3.4); Lymphocytes % (manual) 24.3 %; Macrocytosis Present; Metamyelocytes # (manual) 0.21 K/uL (0-0); Metamyelocytes % (manual) 0.9 %; Monocytes # (manual) 2.43 K/uL (0.11-0.59); Monocytes % (manual) 10.4 %; Neutrophils # (manual) 14.25 K/uL (1.4-6.5); Neutrophils % (manual) 60.9 %; Promyelocytes # (manual) 0.82 K/uL (0-0); Promyelocytes % (manual) 3.5 %; Toxic Vacuolation 1+
[2021-01-17 08:40] LABS: Thyroid Stimulating Hormone 4.2 uIu/ml (0.300-4.500)
[2021-01-17 08:45] LABS: Base Excess VBG -14.7 mEq/L; HCO3 VBG 16 mmol/L; PCO2 VBG 74 mmHg (38-50); PO2 VBG 24 mmHg; pH VBG 6.96 (7.36-7.41)
[2021-01-17 08:48] LABS: Oxygen Saturation VBG < 60.0 %
[2021-01-17 09:01] LABS: Adenovirus PCR Not Detected (NotDetected); Bordetella parapertussis PCR Not Detected (NotDetected); Bordetella pertussis PCR Not Detected (NotDetected); Chlamydia pneumoniae PCR Not Detected (NotDetected); Coronavirus 229E PCR Not Detected (NotDetected); Coronavirus CoV-2 (COVID19)PCR Not Detected (NotDetected); Coronavirus HKU1 PCR Not Detected (NotDetected); Coronavirus NL63 PCR Not Detected (NotDetected); Coronavirus OC43PCR Not Detected (NotDetected); Human Metapneumovirus PCR Not Detected (NotDetected); Influenza A PCR Not Detected (NotDetected); Influenza B PCR Not Detected (NotDetected); Mycoplasma pneumoniae PCR Not Detected (NotDetected); Parainfluenza Virus 1 PCR Not Detected (NotDetected); Parainfluenza Virus 2 PCR Not Detected (NotDetected); Parainfluenza Virus 3 PCR Not Detected (NotDetected); Parainfluenza Virus 4 PCR Not Detected (NotDetected); Respiratory Syncytial VirusPCR Not Detected (NotDetected); Rhinovirus/Enterovirus PCR Not Detected (NotDetected)
--- NOTE | 2021-01-17 09:25 | Emergency Department Note ---
ED Visit Note I saw this patient in conjunction with Andrew Martinez PA-C. I agree with his decision making and treatment plan. While the patient was undergoing imaging in radiology, she had an unresponsive episode and a code purple was called. The patient was brought back to room a 1. She had obvious respiratory depression. Narcan was administered intranasally. A bag valve mask was used to ventilate the patient. We had difficulty obtaining oxygen saturations on the patient. Multiple people from the emergency department and the rapid response team attempted peripheral IV access but were unsuccessful. I placed an intraosseous line in her right tibia. This line was easy to flush. I administered IV Narcan-0.4 mg IO. This did not seem to have a beneficial effect on the patient's level of responsiveness. A blood sugar was obtained and was elevated. The case was discussed with the nurse practitioner from the ICU. Andrew Martinez PA-C discussed the case with the patient's family. I have personally spent greater than 30 minutes of critical care time in the direct management of this patient. This includes bedside care, interpretation of diagnostic studies, and testing, discussion with consultants, patient, and family members, and other required patient management activities. This 30 minutes is in excess of all separately billable procedures. .
[2021-01-17] MEDS ORDERED: diphenhydrAMINE 50 MG/ML VIAL ONE (09:29)
[2021-01-17] MEDS ORDERED: methylPREDNISolone 125 MG/2 ML VIAL ONE (09:30)
--- NOTE | 2021-01-17 10:35 | Critical Care Consultation ---
Date of Consultation January 17, 2021 Assessment & Plan (1) Respiratory failure with hypoxia and hypercapnia: Reason Critically Ill: 55-year-old female with multiple medical problems who is intubated for acute respiratory failure PLAN: Neuro: Metabolic encephalopathy acute -Multifactorial with contribution of hepatic encephalopathy Resp: Acute hypoxic hypercapnic respiratory failure -Likely related to acute kidney injury and inappropriate use of narcotic medication -Intubation 01/17 CV: History of paroxysmal atrial fibrillation -On long-term use of 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s Hypotension -Bolus Normosol -Norepinephrine and vasopressin -Echocardiogram ordered Fluids/Renal: Acute kidney injury -Gentle hydration ID: Covid negative GI/Nutrition: Hepatic encephalopathy -Lactulose titrated to 2-3 bowel movements daily Heme: Anemia -Guaiac stools DVT prophylaxis: SCDs holding chemical prophylaxis at this time in the setting of unknown anemia Endocrine: ICU hyperglycemia protocol Insulin infusion Vascular access: Poor vascular access will place central line and arterial line Code Status: Full code Disposition: ICU (2) Acute hepatic encephalopathy: (3) Lactic acid acidosis: (4) Hyperglycemia: (5) Acute renal insufficiency: (6) Encephalopathy: (7) Paroxysmal A-fib: (8) History of blood clots: (9) Morbid obesity: (10) Anemia: (11) prison (current) use of 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s: Supervising Physician Co-Signing Physician Notes I have personally spent 70 minutes of critical care time in the direct management of this patient. This is a life/limb threatening event. This includes time spent evaluating patient, direct bedside care, chart review, placing orders, interpretation of diagnostic studies, discussion with consultants, patient, and/or family members regarding treatment decisions, as well as other required patient management activities. This time is exclusive of all separately billable procedures, and teaching time and separate from and in addition to any other critical care service time. History of Present Illness Reason for Consultation: Code purple, acute hypoxic respiratory failure History of Present Illness History is obtained from prior records patient unable to participate in history taking: Reported the patient has chronic pain and was started on new opiate- based narcotic pain medication patient significant other helped administer a capsule which was broken and part of the powder was dissolved into applesauce. I suspect that this is a controlled release medication and the capsule is a intercrural to the controlled release of the this likely represents an accidental overdose of narcotic pain medication. In the emergency department patient became unresponsive and apneic did not respond to initial doses of Narcan however she subsequently later became more responsive. She has a body habitus which has made it difficult to obtain noninvasive blood pressure, she was started on vasoactive medications and was moving all 4 extremities however a blood pressure was unobtainable the CRISTINA was unable to place a radial and femoral arterial line. She has been transferred to the ICU for further evaluation and management. Allergies Allergy/AdvReac Type Severity Reaction Status Date / Time Iodinated Contrast Media Allergy Intermediate hives-PT Verified 01/17/21 08:04 DENIES SEE NOTE adhesive Allergy Mild RED RASH Verified 01/17/21 08:04 CAUSED BY PAPER TAPE vancomycin AdvReac Severe renal Verified 01/17/21 08:04 failure, required dialysis x 3 MONTHS acetaminophen AdvReac Intermediate Liver Verified 01/17/21 08:04 problems. alprazolam AdvReac Intermediate MAKES Verified 01/17/21 08:04 LOOPY,DO AND SAY SILLY THINGS codeine AdvReac Intermediate UPSET Verified 01/17/21 08:04 STOMACH haloperidol AdvReac Intermediate nervous Verified 01/17/21 08:04 and anxious metformin AdvReac Intermediate HANDS FEET Verified 01/17/21 08:04 FACE NUMB methylparaben AdvReac Intermediate FLUID Verified 01/17/21 08:04 RETENTION morphine AdvReac Intermediate SWELLING Verified 01/17/21 08:04 LEGS AND FEET oxymorphone AdvReac Intermediate FLUID Verified 01/17/21 08:04 RETENTION pregabalin AdvReac Intermediate Aphasia/Speech Verified 01/17/21 08:04 impairments gabapentin AdvReac Mild Aphasia/Speech Verified 01/17/21 08:04 impairments Sulfa (Sulfonamide AdvReac Mild GI SYMPTOMS Verified 01/17/21 08:04 Antibiotics) Home Medications Medication Instructions Recorded Confirmed Type duloxetine 60 mg capsule,delayed 60 mg PO BID 03/12/19 01/17/21 History release (Cymbalta) rivaroxaban 20 mg tablet (Xarelto) 20 mg PO HS 03/12/19 01/17/21 History carvedilol 12.5 mg tablet (Coreg) 12.5 mg PO BID 03/21/19 01/17/21 History dulaglutide 1.5 mg/0.5 mL 1.5 mg SUBCUT WK 07/13/19 01/17/21 History subcutaneous pen injector (Trulicity) ferrous sulfate 325 mg (65 mg 325 mg PO QDB 08/01/19 01/17/21 History iron) tablet (Iron (ferrous sulfate)) pantoprazole 40 mg tablet,delayed 40 mg PO DAILYBB 08/01/19 01/17/21 History release (Protonix) rifaximin 550 mg tablet (Xifaxan) 550 mg PO BID #60 tab 08/15/19 01/17/21 Rx famotidine 20 mg tablet (Pepcid) 20 mg PO BID 09/17/19 01/17/21 History magnesium chloride 64 mg 64 mg PO PM 10/05/19 01/17/21 History (magnesium chloride) tablet,delayed release (Mag 64) spironolactone 25 mg tablet 25 mg PO DAILY 08/22/20 01/17/21 History (Aldactone) baclofen 10 mg tablet 10 mg PO BID PRN #60 tab 11/11/20 01/17/21 Rx albuterol sulfate 90 mcg/actuation 2 inha INH QID PRN 12/14/20 01/17/21 History aerosol inhaler (Ventolin HFA) furosemide 20 mg tablet (Lasix) 20 mg PO TID 12/14/20 01/17/21 History lactulose 10 gram/15 mL oral 30 ml PO QID 12/14/20 01/17/21 History solution (Constulose) levothyroxine 200 mcg tablet 200 mcg PO DAILYBB 12/14/20 01/17/21 History (Synthroid) oxycodone 15 mg tablet (Roxicodone) 15 mg PO TID PRN 12/14/20 01/17/21 History prochlorperazine maleate 5 mg 5 mg PO BID PRN 12/14/20 01/17/21 History tablet (Compazine) insulin aspart U-100 100 unit/mL 10 unit SUBCUT TIDM #0 ml 12/16/20 01/17/21 Rx (3 mL) subcutaneous pen (Novolog Flexpen U-100 Insulin aspart) insulin glargine 100 unit/mL (3 30 unit SUBCUT DAILY #0 ml 12/16/20 01/17/21 Rx mL) subcutaneous pen (Basaglar KwikPen U-100 Insulin) potassium chloride 20 mEq 20 meq PO DAILY #30 tab 12/16/20 01/17/21 Rx tablet,extended release(part/cryst) oxycodone myristate 27 mg capsule 27 mg PO BID 12/26/20 01/17/21 History sprinkle extended release 12hr(DON'T CRUSH) (Xtampza ER) Patient History Medical History Abdominal wall cellulitis Acute hepatic encephalopathy Bowel obstruction Cauda equina compression Cellulitis and abscess of trunk (Unknown) Chronic low back pain COPD, group D, by GOLD 2017 classification Deep vein blood clot of left lower extremity RIGHT AND LEFT LEG AND THEN MOVED LUNG - 2001 Diabetes Diabetic neuropathy (01/04/11) Fracture of fourth metatarsal bone of left foot Gastritis Hyperammonemia Hypokalemia Hypomagnesemia Incarcerated ventral hernia Kidney stone HX OF AND HAD LITHOTRIPSY RIMA (obstructive sleep apnea) HX OF AND NO CURRENT PROBLEM Paroxysmal A-fib 2013 on Xarelto Pyelonephritis Rectal bleeding Septic shock Severe sepsis Splenomegaly, not elsewhere classified Supratherapeutic INR UTI (urinary tract infection) Surgical History History of appendectomy History of arthroplasty of right knee Hx of lithotripsy Hx of ventral hernia repair S/P cholecystectomy S/P sinus surgery S/P MARLEE (total abdominal hysterectomy) Family History Father Cancer Liver Brother Kidney disease Renal failure Cirrhosis Brother Cirrhosis Other Family history non-contributory Social History Smoking Status: Current every day smoker Tobacco Type: Cigarettes Cigarettes Per Day: 1/2 PPD; Second Hand Exposure: Yes; Hx Alcohol Use: No Hx Substance Use: No Preferred Language: Gibraltarian Communication Ability: Effective Coding Quality Coordinator Required: No Beliefs That Will Affect Care: None marital status: Current Living Situation: Significant Other Current Living Situation Comment: per ER documentation, pt resides with sign ificant other current occupational status: disabled Feels Safe at Home: Yes Assistive Devices: Denture - Upper and Denture - Lower Results & Data Results & Data ([facility]) Vital Signs (Past 12 Hours) Vital Signs Temp Pulse Pulse Resp BP BP Pulse Ox 01/17/21 10:10 94 H 95 01/17/21 10:05 93 H 88 L 01/17/21 10:00 94 H 90 01/17/21 09:55 93 H 92 01/17/21 09:50 93 H 91 01/17/21 09:45 94 H 93 01/17/21 09:40 94 H 93 01/17/21 09:35 94 H 93 01/17/21 09:32 95 H 94 01/17/21 09:21 95 H 91/65 L 91/65 L 93 01/17/21 09:11 95 H 47/38 L 96 01/17/21 09:00 95 H 81/65 L 98 01/17/21 08:55 94 H 98 01/17/21 08:52 94 H 99 01/17/21 08:41 93 H 95 01/17/21 08:30 100 H 84/63 L 91 01/17/21 08:25 131 H 01/17/21 08:22 120 H 01/17/21 08:10 104 H 131/93 01/17/21 07:59 104/90 01/17/21 07:55 137 H 01/17/21 07:50 101 H 01/17/21 07:45 85 100 01/17/21 07:40 83 100 01/17/21 07:35 95 H 100 01/17/21 07:30 96 H 100 01/17/21 07:25 95 H 100 01/17/21 07:20 94 H 100 01/17/21 07:15 95 H 100 01/17/21 07:10 99 H 100 01/17/21 07:05 99 H 97 01/17/21 07:00 100 H 94 01/17/21 06:55 104 H 100 01/17/21 06:50 109 H 100 01/17/21 06:45 78 01/17/21 06:40 88 01/17/21 06:35 95 H 01/17/21 06:07 109 H 26 H 83/48 L 94 01/17/21 06:00 22 83/48 L 01/17/21 05:49 36.4 C L 109 H 24 83/63 L 94 Laboratory Results 01/17/21 01/17/21 01/17/21 Range/Units 08:25 08:23 07:09 WBC (4.8-10.8) K/uL RBC (4.2-5.4) M/uL Hgb (12.0-16.0) g/dL Hct (37-47) % MCV (80-100) fL MCH (25-34) pg MCHC (32-36) g/dL RDW Std Deviation (36.4-46.3) fL RDW Coeff of Mari (11.5-14.5) % Plt Count (130-400) K/uL MPV (7.4-10.4) fL Absolute Nucleated RBC (0-0) K/uL Nucleated RBC % (auto) % Neutrophils % (Manual) % Lymphocytes % (Manual) % Monocytes % (Manual) % Metamyelocytes % (Man) % Promyelocytes % (Man) % Neutrophils # (Manual) (1.4-6.5) K/uL Total Absolute Neuts (1.4-6.5) K/uL Lymphocytes # (Manual) (1.2-3.4) K/uL Total Abs Lymphocytes (1.2-3.4) K/uL Monocytes # (Manual) (0.11-0.59) K/uL Metamyelocytes # (Man) (0-0) K/uL Promyelocytes # (Man) (0-0) K/uL Blood Smear Review Toxic Vacuolation Macrocytosis Echinocytes PT (9.0-12.0) Seconds INR (0.9-1.1) APTT (21.0-31.0) Seconds PTT Ratio D-Dimer (0-500) ug/L FEU VBG pH 6.96 L (7.36-7.41) VBG pCO2 74 H (38-50) mmHg VBG pO2 24 mmHg VBG HCO3 16 mmol/L VBG O2 Saturation < 60.0 % VBG Base Excess -14.7 mEq/L Barometric Pressure 733.9 mm/Hg Sodium (136-145) mmol/L Potassium (3.5-5.1) mmol/L Chloride (98-107) mmol/L Carbon Dioxide (21-32) mmol/L Anion Gap (3-11) BUN (7-18) mg/dl Creatinine (0.6-1.2) mg/dl Est Cr Clr Drug Dosing ml/min Est GFR ( Amer) ml/min Est GFR (Non-Af Amer) ml/min BUN/Creatinine Ratio (10-20) Glucose (70-99) mg/dl POC Glucose (70-99) mg/dl Lactate (0.4-2.0) mmol/L Calcium (8.5-10.1) mg/dl Magnesium (1.8-2.4) mg/dl Total Bilirubin (0.2-1) mg/dl AST (15-37) U/L ALT (12-78) U/L Alkaline Phosphatase (45-117) U/L Ammonia (11-32) umol/L Troponin I (0-0.045) ng/ml Total Protein (6.4-8.2) gm/dl Albumin (3.4-5.0) gm/dl Globulin (2.5-4.0) gm/dl Albumin/Globulin Ratio (0.9-2) Lipase (73-393) U/L Beta-Hydroxybutyric Acd (0.2-2.81) mg/dl Procalcitonin 0.93 H (0-0.5) ng/ml TSH (0.300-4.500) uIu/ml Ethyl Alcohol mg/dL < 3.0 (0-3) mg/dl Adenovirus (PCR) (NotDetected) B. pertussis DNA (PCR) (NotDetected) B.parapertussis DNA PCR (NotDetected) C. pneumoniae DNA (PCR) (NotDetected) Coronavirus OC43 (PCR) (NotDetected) Coronavirus HKU1 (PCR) (NotDetected) Coronavirus 229E (PCR) (NotDetected) COVID-19 Eval Order SARS-CoV-2 (PCR) (NotDetected) Coronavirus NL63 (PCR) (NotDetected) Human Metapneumovir PCR (NotDetected) Influenza Type A (PCR) (NotDetected) Influenza Type B (PCR) (NotDetected) M. pneumoniae (PCR) (NotDetected) Parainfluenza 1 (PCR) (NotDetected) Parainfluenza 2 (PCR) (NotDetected) Parainfluenza 3 (PCR) (NotDetected) Parainfluenza 4 (PCR) (NotDetected) RSV (PCR) (NotDetected) Entero/Rhino (PCR) (NotDetected) 01/17/21 01/17/21 01/17/21 Range/Units 07:09 07:09 07:09 WBC (4.8-10.8) K/uL RBC (4.2-5.4) M/uL Hgb (12.0-16.0) g/dL Hct (37-47) % MCV (80-100) fL MCH (25-34) pg MCHC (32-36) g/dL RDW Std Deviation (36.4-46.3) fL RDW Coeff of Mari (11.5-14.5) % Plt Count (130-400) K/uL MPV (7.4-10.4) fL Absolute Nucleated RBC (0-0) K/uL Nucleated RBC % (auto) % Neutrophils % (Manual) % Lymphocytes % (Manual) % Monocytes % (Manual) % Metamyelocytes % (Man) % Promyelocytes % (Man) % Neutrophils # (Manual) (1.4-6.5) K/uL Total Absolute Neuts (1.4-6.5) K/uL Lymphocytes # (Manual) (1.2-3.4) K/uL Total Abs Lymphocytes (1.2-3.4) K/uL Monocytes # (Manual) (0.11-0.59) K/uL Metamyelocytes # (Man) (0-0) K/uL Promyelocytes # (Man) (0-0) K/uL Blood Smear Review Toxic Vacuolation Macrocytosis Echinocytes PT (9.0-12.0) Seconds INR (0.9-1.1) APTT (21.0-31.0) Seconds PTT Ratio D-Dimer (0-500) ug/L FEU VBG pH (7.36-7.41) VBG pCO2 (38-50) mmHg VBG pO2 mmHg VBG HCO3 mmol/L VBG O2 Saturation % VBG Base Excess mEq/L Barometric Pressure mm/Hg Sodium 134 L (136-145) mmol/L Potassium 4.5 (3.5-5.1) mmol/L Chloride 103 (98-107) mmol/L Carbon Dioxide 16 L (21-32) mmol/L Anion Gap 15.0 H (3-11) BUN 12 (7-18) mg/dl Creatinine 1.66 H (0.6-1.2) mg/dl Est Cr Clr Drug Dosing 52.7 ml/min Est GFR ( Amer) 39.2 ml/min Est GFR (Non-Af Amer) 33.9 ml/min BUN/Creatinine Ratio 6.9 L (10-20) Glucose 362 H* (70-99) mg/dl POC Glucose (70-99) mg/dl Lactate 14.5 H* (0.4-2.0) mmol/L Calcium 7.7 L (8.5-10.1) mg/dl Magnesium 1.8 (1.8-2.4) mg/dl Total Bilirubin 3.5 H (0.2-1) mg/dl AST 51 H (15-37) U/L ALT 27 (12-78) U/L Alkaline Phosphatase 170 H (45-117) U/L Ammonia 183.3 H (11-32) umol/L Troponin I 0.030 (0-0.045) ng/ml Total Protein 4.4 L (6.4-8.2) gm/dl Albumin 1.4 L (3.4-5.0) gm/dl Globulin 3.0 (2.5-4.0) gm/dl Albumin/Globulin Ratio 0.5 L (0.9-2) Lipase 65 L (73-393) U/L Beta-Hydroxybutyric Acd 0.88 (0.2-2.81) mg/dl Procalcitonin (0-0.5) ng/ml TSH 4.200 (0.300-4.500) uIu/ml Ethyl Alcohol mg/dL (0-3) mg/dl Adenovirus (PCR) (NotDetected) B. pertussis DNA (PCR) (NotDetected) B.parapertussis DNA PCR (NotDetected) C. pneumoniae DNA (PCR) (NotDetected) Coronavirus OC43 (PCR) (NotDetected) Coronavirus HKU1 (PCR) (NotDetected) Coronavirus 229E (PCR) (NotDetected) COVID-19 Eval Order SARS-CoV-2 (PCR) (NotDetected) Coronavirus NL63 (PCR) (NotDetected) Human Metapneumovir PCR (NotDetected) Influenza Type A (PCR) (NotDetected) Influenza Type B (PCR) (NotDetected) M. pneumoniae (PCR) (NotDetected) Parainfluenza 1 (PCR) (NotDetected) Parainfluenza 2 (PCR) (NotDetected) Parainfluenza 3 (PCR) (NotDetected) Parainfluenza 4 (PCR) (NotDetected) RSV (PCR) (NotDetected) Entero/Rhino (PCR) (NotDetected) 01/17/21 01/17/21 01/17/21 Range/Units 07:09 07:09 07:00 WBC 23.40 H (4.8-10.8) K/uL RBC 2.11 L (4.2-5.4) M/uL Hgb 7.7 L (12.0-16.0) g/dL Hct 24.6 L (37-47) % MCV 116.6 H (80-100) fL MCH 36.5 H (25-34) pg MCHC 31.3 L (32-36) g/dL RDW Std Deviation 70.8 H (36.4-46.3) fL RDW Coeff of Mari 17.2 H (11.5-14.5) % Plt Count 156 (130-400) K/uL MPV 10.1 (7.4-10.4) fL Absolute Nucleated RBC 0.35 H (0-0) K/uL Nucleated RBC % (auto) 1.5 % Neutrophils % (Manual) 60.9 % Lymphocytes % (Manual) 24.3 % Monocytes % (Manual) 10.4 % Metamyelocytes % (Man) 0.9 % Promyelocytes % (Man) 3.5 % Neutrophils # (Manual) 14.25 H (1.4-6.5) K/uL Total Absolute Neuts 14.25 H (1.4-6.5) K/uL Lymphocytes # (Manual) 5.69 H (1.2-3.4) K/uL Total Abs Lymphocytes 5.69 H (1.2-3.4) K/uL Monocytes # (Manual) 2.43 H (0.11-0.59) K/uL Metamyelocytes # (Man) 0.21 H (0-0) K/uL Promyelocytes # (Man) 0.82 H (0-0) K/uL Blood Smear Review Pending Toxic Vacuolation 1+ Macrocytosis Present Echinocytes 2+ PT 25.3 H (9.0-12.0) Seconds INR 2.7 H (0.9-1.1) APTT 45.1 H* (21.0-31.0) Seconds PTT Ratio 1.7 D-Dimer 83188 H* (0-500) ug/L FEU VBG pH (7.36-7.41) VBG pCO2 (38-50) mmHg VBG pO2 mmHg VBG HCO3 mmol/L VBG O2 Saturation % VBG Base Excess mEq/L Barometric Pressure mm/Hg Sodium (136-145) mmol/L Potassium (3.5-5.1) mmol/L Chloride (98-107) mmol/L Carbon Dioxide (21-32) mmol/L Anion Gap (3-11) BUN (7-18) mg/dl Creatinine (0.6-1.2) mg/dl Est Cr Clr Drug Dosing ml/min Est GFR ( Amer) ml/min Est GFR (Non-Af Amer) ml/min BUN/Creatinine Ratio (10-20) Glucose (70-99) mg/dl POC Glucose (70-99) mg/dl Lactate (0.4-2.0) mmol/L Calcium (8.5-10.1) mg/dl Magnesium (1.8-2.4) mg/dl Total Bilirubin (0.2-1) mg/dl AST (15-37) U/L ALT (12-78) U/L Alkaline Phosphatase (45-117) U/L Ammonia (11-32) umol/L Troponin I (0-0.045) ng/ml Total Protein (6.4-8.2) gm/dl Albumin (3.4-5.0) gm/dl Globulin (2.5-4.0) gm/dl Albumin/Globulin Ratio (0.9-2) Lipase (73-393) U/L Beta-Hydroxybutyric Acd (0.2-2.81) mg/dl Procalcitonin (0-0.5) ng/ml TSH (0.300-4.500) uIu/ml Ethyl Alcohol mg/dL (0-3) mg/dl Adenovirus (PCR) Not Detected (NotDetected) B. pertussis DNA (PCR) Not Detected (NotDetected) B.parapertussis DNA PCR Not Detected (NotDetected) C. pneumoniae DNA (PCR) Not Detected (NotDetected) Coronavirus OC43 (PCR) Not Detected (NotDetected) Coronavirus HKU1 (PCR) Not Detected (NotDetected) Coronavirus 229E (PCR) Not Detected (NotDetected) COVID-19 Eval Order SARS-CoV-2 (PCR) Not Detected (NotDetected) Coronavirus NL63 (PCR) Not Detected (NotDetected) Human Metapneumovir PCR Not Detected (NotDetected) Influenza Type A (PCR) Not Detected (NotDetected) Influenza Type B (PCR) Not Detected (NotDetected) M. pneumoniae (PCR) Not Detected (NotDetected) Parainfluenza 1 (PCR) Not Detected (NotDetected) Parainfluenza 2 (PCR) Not Detected (NotDetected) Parainfluenza 3 (PCR) Not Detected (NotDetected) Parainfluenza 4 (PCR) Not Detected (NotDetected) RSV (PCR) Not Detected (NotDetected) Entero/Rhino (PCR) Not Detected (NotDetected) 01/17/21 01/17/21 Range/Units 07:00 06:37 WBC (4.8-10.8) K/uL RBC (4.2-5.4) M/uL Hgb (12.0-16.0) g/dL Hct (37-47) % MCV (80-100) fL MCH (25-34) pg MCHC (32-36) g/dL RDW Std Deviation (36.4-46.3) fL RDW Coeff of Mari (11.5-14.5) % Plt Count (130-400) K/uL MPV (7.4-10.4) fL Absolute Nucleated RBC (0-0) K/uL Nucleated RBC % (auto) % Neutrophils % (Manual) % Lymphocytes % (Manual) % Monocytes % (Manual) % Metamyelocytes % (Man) % Promyelocytes % (Man) % Neutrophils # (Manual) (1.4-6.5) K/uL Total Absolute Neuts (1.4-6.5) K/uL Lymphocytes # (Manual) (1.2-3.4) K/uL Total Abs Lymphocytes (1.2-3.4) K/uL Monocytes # (Manual) (0.11-0.59) K/uL Metamyelocytes # (Man) (0-0) K/uL Promyelocytes # (Man) (0-0) K/uL Blood Smear Review Toxic Vacuolation Macrocytosis Echinocytes PT (9.0-12.0) Seconds INR (0.9-1.1) APTT (21.0-31.0) Seconds PTT Ratio D-Dimer (0-500) ug/L FEU VBG pH (7.36-7.41) VBG pCO2 (38-50) mmHg VBG pO2 mmHg VBG HCO3 mmol/L VBG O2 Saturation % VBG Base Excess mEq/L Barometric Pressure mm/Hg Sodium (136-145) mmol/L Potassium (3.5-5.1) mmol/L Chloride (98-107) mmol/L Carbon Dioxide (21-32) mmol/L Anion Gap (3-11) BUN (7-18) mg/dl Creatinine (0.6-1.2) mg/dl Est Cr Clr Drug Dosing ml/min Est GFR ( Amer) ml/min Est GFR (Non-Af Amer) ml/min BUN/Creatinine Ratio (10-20) Glucose (70-99) mg/dl POC Glucose 410 H* (70-99) mg/dl Lactate (0.4-2.0) mmol/L Calcium (8.5-10.1) mg/dl Magnesium (1.8-2.4) mg/dl Total Bilirubin (0.2-1) mg/dl AST (15-37) U/L ALT (12-78) U/L Alkaline Phosphatase (45-117) U/L Ammonia (11-32) umol/L Troponin I (0-0.045) ng/ml Total Protein (6.4-8.2) gm/dl Albumin (3.4-5.0) gm/dl Globulin (2.5-4.0) gm/dl Albumin/Globulin Ratio (0.9-2) Lipase (73-393) U/L Beta-Hydroxybutyric Acd (0.2-2.81) mg/dl Procalcitonin (0-0.5) ng/ml TSH (0.300-4.500) uIu/ml Ethyl Alcohol mg/dL (0-3) mg/dl Adenovirus (PCR) (NotDetected) B. pertussis DNA (PCR) (NotDetected) B.parapertussis DNA PCR (NotDetected) C. pneumoniae DNA (PCR) (NotDetected) Coronavirus OC43 (PCR) (NotDetected) Coronavirus HKU1 (PCR) (NotDetected) Coronavirus 229E (PCR) (NotDetected) COVID-19 Eval Order [facility] at [facility] SARS-CoV-2 (PCR) (NotDetected) Coronavirus NL63 (PCR) (NotDetected) Human Metapneumovir PCR (NotDetected) Influenza Type A (PCR) (NotDetected) Influenza Type B (PCR) (NotDetected) M. pneumoniae (PCR) (NotDetected) Parainfluenza 1 (PCR) (NotDetected) Parainfluenza 2 (PCR) (NotDetected) Parainfluenza 3 (PCR) (NotDetected) Parainfluenza 4 (PCR) (NotDetected) RSV (PCR) (NotDetected) Entero/Rhino (PCR) (NotDetected) Coding Level of Care Code Critical Care 1st 30-74 mins Diagnoses Anemia D64.89 Anemia type: other cause Other causes of anemia: other cause, not classified prison (current) use of 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s Z79.01 Acute hepatic encephalopathy K72.00 Acute renal insufficiency N28.9 Encephalopathy G93.40 Paroxysmal A-fib I48.0 History of blood clots Z86.718 Morbid obesity E66.01 Lactic acid acidosis E87.2 Respiratory failure with hypoxia and hypercapnia J96.91; J96.92 Hyperglycemia R73.9 (1) Anemia Anemia type: other cause Other causes of anemia: other cause, not classified Qualified Code(s): D64.89 - Other specified anemias
[2021-01-17] MEDS ORDERED: PHARMACY GLYCEMIC MGMT CONSULT PRN (11:21)
[2021-01-17] MEDS ORDERED: ALBUTEROL 0.083% NEBU SOLN 3 ML VIAL NEB PRN (11:21)
[2021-01-17] MEDS ORDERED: ICU PROTOCOL FOR HYPERGLYCEMIA PRN (11:21)
[2021-01-17] MEDS ORDERED: NORMOSOL-R 1,000 ML IV ONE (11:49)
[2021-01-17] MEDS ORDERED: SODIUM BICARB 8.4% INJ 50 MEQ/50 ML SYR IV ONE ×3 (11:55→23:48)
[2021-01-17] MEDS ORDERED: GLUCOSE 40% GEL 15 GM TUBE PO PRN (12:00)
[2021-01-17] MEDS ORDERED: GLUCAGON FOR INJ 1 MG VIAL IM PRN (12:00)
[2021-01-17] MEDS ORDERED: GLUCOSE 10 TABS/TUBE PO PRN (12:00)
[2021-01-17] MEDS ORDERED: DEXTROSE 50% 50 ML SYRINGE IV PRN (12:00)
[2021-01-17] MEDS ORDERED: CARBOHYDRATES FOR HYPOGLYCEMIA PO PRN (12:00)
[2021-01-17] MEDS ORDERED: PANTOprazole 40 MG in SYRINGE 0 ML IV SCH (12:00)
[2021-01-17] MEDS: Double Conc 32mcg/mL; 16mg in 500mL IV SCH ×6 (12:10→22:43)
[2021-01-17] MEDS: LACTULOSE SYRUP 20 GM/30 ML UDC PO SCH ×3 (12:10→22:43)
--- NOTE | 2021-01-17 12:20 | XRay Report ---
XR chest 1V portable HISTORY: 55 years-old Female central line placement testicle is placement of a left IJ central venou s catheter COMPARISON: Chest radiograph of same day at 7:33 AM TECHNIQUE: Supine AP view of the chest FINDINGS: Endotracheal tube overlies the midline, 3.8 cm superior to the lenard. Enteric tube courses below the diaphragm into the gastric lumen. Left IJ central venous catheter has been placed with distal tip in the expected location of the brachiocephalic vein. No pneumothorax. Cardiomegaly. Pulmonary vascular congestion with trace pleural effusions and mild bibasilar densities. No acute fracture. Cholecystec tova. IMPRESSION: 1. Lines and tubes as above. No pneumothorax. 2. Cardiomegaly with pulmonary vascular congestion. 2. Trace pleural effusions with mild bibasilar opacities. ACT 112: Negative or not required by law. The above report was generated using voice recognition software. It may contain grammatical, syntax o r spelling errors. Electronically signed by: Darrel Rees M.D. 01/17/2021 12:19 PM
--- NOTE | 2021-01-17 12:46 | Procedure Note ---
Procedure Note Date of Service January 17, 2021 Note Procedure date: Noted above Procedure: Central venous access Pre-procedure indication: Need for vasoactive medication administration Post-procedure Diagnosis: same as above Prior to Procedure: Informed Consent: Emergent consent implied. Attending Staff: Elizabeth Aguilar DO Resident/APC: Not applicable Skin Prep: Chlorhexidine Anesthesia: 4 mL 1% lidocaine without epinephrine The identity of the patient was confirmed and a bedside time out was performed. Description of Procedure: After sterile prep and sterile drape utilizing standard sterile technique the superficial skin of the left internal jugular area was anesthetized. The target vessel was identified and entered with an 18- gauge needle. Dark venous blood return was noted. A guidewire was inserted through the needle and into the vessel. The needle was withdrawn and a skin santino was made. A tissue dilator was advanced via Seldinger technique and removed. A triple lumen catheter was inserted via Seldinger technique and the guidewire removed. All ports abbie and flushed easily. A Biopatch was placed, and the catheter was secured via silk suture. A sterile dressing was then applied. Complications: None Estimated blood loss: Trace Patient tolerated the procedure well. Procedure Date: Noted Above Procedure: Procedural Ultrasound Indication: Central venous access Attending: Elizabeth Aguilar DO Resident/Physician Cooker Casing: Not applicable Artery visualized: Yes Vein visualized: Yes Compressible Vein: Yes Vein patent: Yes Guidewire or Short Catheter seen in vein prior to dilation: Yes Line confirmed in Vein with ultrasound: Yes Lung Sliding on side of attempt (if applicable): NA If no lung sliding or not obtained has CXR been ordered: Yes Impression: Successful central venous access placement Images obtained are saved for permanent record Coding CPT Codes Tubes, Drains, and Vasc Access - Tubes, Drains, and Vasc Access: [id number] Insertion Of Non-tunneled Catheter Age 3 Yrs> ([id number]) Tubes, Drains, and Vasc Access - Tubes, Drains, and Vasc Access: [id number] Ultrasound Guidance For Vascular ([id number]) [facility] [place] C[place] (Charges) Tubes, Drains, and Vasc Access Procedure 1: Tubes, Drains, and Vasc Access: [id number] Insertion Of Non-tunneled Catheter Age 3 Yrs> Procedure 2: Tubes, Drains, and Vasc Access: [id number] Ultrasound Guidance For Vascular
[2021-01-17] MEDS: VASOPRESSIN 20 UNITS in 0.9 % SODIUM CHLORIDE 100 ML IV SCH ×2 (12:47→20:20)
--- NOTE | 2021-01-17 12:47 | Procedure Note ---
Procedure Note Date of Service January 17, 2021 Note Procedure date: Noted above Procedure: Axillary artery cannulation Pre-procedure Diagnosis: Need for invasive monitoring, hypotension/frequent blood draws Post-procedure Diagnosis: same as above Prior to Procedure: Informed Consent: Emergent consent implied. Attending Staff: Elizabeth Aguilar DO Skin Prep: Chlorhexidine Anesthesia: 3 mL 1% lidocaine without epinephrine The identity of the patient was confirmed and a bedside time out was performed. Description of Procedure: After sterile prep and sterile drape utilizing standard sterile technique the superficial skin of the right axillary artery was anesthetized. The target artery was identified via dynamic ultrasound guidance and entered with a 20-gauge arrow Angiocath. Pulsatile bright red blood return was noted. Via modified Seldinger technique the self-contained guidewire was advanced and the Angiocath advanced over the guidewire. The guidewire was removed and brisk arterial blood return was noted. The pressure monitor was connected, and the arterial line was secured via silk suture. A sterile dressing was then applied. Complications: None Estimated blood loss: Trace Patient tolerated the procedure well. Coding CPT Codes Tubes, Drains, and Vasc Access - Tubes, Drains, and Vasc Access: [id number] Place Catheter In Artery ([id number]) [facility] [place] Codes (Charges) Tubes, Drains, and Vasc Access Procedure 1: Tubes, Drains, and Vasc Access: [id number] Place Catheter In Artery
[2021-01-17] MEDS ORDERED: SODIUM BICARB 8.4% INJ 50 MEQ/50 ML SYR IV STA ×2 (12:57→17:03)
[2021-01-17] MEDS ORDERED: EPINEPHrine/NSS 4 MG/254 ML BAG IV SCH (13:00)
[2021-01-17] MEDS: EPINEPHrine/NSS 4 MG/254 ML BAG IV SCH ×3 (13:01→20:20)
[2021-01-17] MEDS ORDERED: NovoLIN-R BOLUS FROM BAG IV ONE (13:15)
[2021-01-17] MEDS ORDERED: INSULIN REGULAR 250 UNITS in SODIUM CHLORIDE 0.9% 247.5 ML IV SCH (13:15)
[2021-01-17] MEDS ORDERED: SODIUM CHLORIDE 0.9% 250 ML IV PRN ×3 (13:29→13:56)
--- NOTE | 2021-01-17 13:49 | Communication Note ---
Date of Service: January 17, 2021 Clinical update 1330 patient's hemodynamics continue to worsen she has not produced any urine lactic acidosis continues to increase currently 17.4 up from 14.5. She has gotten additional fluid, we are running 3 different vasopressors: Norepinephrine, vasopressin, epinephrine and she continues to be hypotensive. We have attempted to correct her acid-base status with boluses of bicarbonate she has received 250 mEq emergently. We have been unable to get the patient to the CT scanner secondary to hemodynamic instability. In the differential given her acute drop in H&H bleeding possibly retroperitoneal hematoma is in the differential we will give her emergent release type O blood while she is being typed and screened for additional blood product. We have maximized the ventilator, and contacted the patient's significant other to present to bedside as I am concerned she is entering an active dying process. I think venous thromboembolism is unlikely it was reported that she was on Eliquis and her INR is supratherapeutic. This also could represent acute liver failure she does have scleral icterus and her ammonia has worsened, coagulation cascade appears to be abnormal and mild elevation in AST. Repeat H&H on [id number] testing demonstrated a hematocrit of 15 and no hemoglobin we will continue with presumptive hemorrhagic shock and aggressive blood volume repletion. I have personally spent 120 minutes of critical care time in the direct management of this patient. This is a life/limb threatening event. This includes time spent evaluating patient, direct bedside care, chart review, placing orders, interpretation of diagnostic studies, discussion with consultants, patient, and/or family members regarding treatment decisions, as well as other required patient management activities. This time is exclusive of all separately billable procedures, and teaching time and separate from and in addition to any other critical care service time. Coding Level of Care Code Critical Care ea addt'l 30 min
[2021-01-17] MEDS ORDERED: PHYTONADIONE 10 MG in SODIUM CHLORIDE 0.9% 50 ML IV ONE (14:15)
--- NOTE | 2021-01-17 14:19 | Communication Note ---
Date of Service: January 17, 2021 Additional history is obtained from the significant other. Patient had been taking Xarelto normally and took last dose last night. No history of trauma or falls. Reports that she took a muscle relaxer for low back pain yesterday. He states that when she takes a muscle relaxer she becomes particularly disoriented. She was largely tired and sleeping yesterday however she would wake and have periods of lucidness, he would check her pulse ox with a pulse oximeter they have at the home and she never dropped below 94%. He reports that she requested additional medication for pain, he reported that he gave her some powder from time release capsule and then in the morning sought additional evaluation. Patient remains critically ill and is relatively hypoxic saturating 88 with and hypotensive 65/33 despite aggressive vasoactive medications infusions and volume expansion with blood product. Coding Level of Care Code None
[2021-01-17] MEDS ORDERED: TRANEXAMIC ACID / 0.7% NACL 1,000 MG/100 ML BAG IV STA (14:23)
[2021-01-17 16:03] LABS: Hematocrit (blood only) 24.7 % (37-47); Hemoglobin 7.8 g/dL (12.0-16.0)
[2021-01-17] MEDS: ASCORBIC ACID 1,500 MG, THIAMINE HCL 100 MG in 0.9 % SODIUM CHLORIDE 100 ML IV SCH ×2 (16:03→22:44)
[2021-01-17 16:05] LABS: INR 3.6 (0.9-1.1); Partial Thromboplastin Ratio 2.6; Prothrombin Time 32.8 Seconds (9.0-12.0)
[2021-01-17 16:09] LABS: Fibrinogen 85 mg/dl (184-400); Partial Thromboplastin Time 68.5 Seconds (21.0-31.0)
[2021-01-17] MEDS ORDERED: INSULIN ASPART 100 UNITS/ML 3 ML PEN SC SCH (16:30)
[2021-01-17 17:14] LABS: iSTAT Art Bld Gas pCO2 Correct 42 mmHg (35-46); iSTAT Art Bld Gas pH Corrected 6.919 (7.35-7.45); iSTAT Arterial Blood Gas HCO3 9 meg/L (19-24); iSTAT Arterial Blood Gas pCO2 48 mmHg (35-46); iSTAT Arterial Blood Gas pH 6.88 (7.35-7.45); iSTAT Arterial Blood Gas pO2 57 mmHg (80-95); iSTAT Arterial Blood Gas pO2 C 46; iSTAT Carbon Dioxide 10 mmol/L (24-31); iSTAT FiO2 100 %; iSTAT Hematocrit 22 % (37-47); iSTAT Hemoglobin 7.5 g/dl (12.0-16.0); iSTAT Potassium 4.4 mmol/L (3.3-5.0); iSTAT Site Art Line; iSTAT Sodium 132 mmol/L (135-144)
[2021-01-17] MEDS: INSULIN ASPART 100 UNITS/ML 3 ML PEN SC SCH ×2 (17:28→22:43)
[2021-01-17] MEDS ORDERED: CALCIUM GLUCONATE 10% 1,000 MG in SODIUM CHLORIDE 0.9% 50 ML IV ONE (17:30)
[2021-01-17 18:22] LABS: Hematocrit (blood only) 28.3 % (37-47); Hemoglobin 8.8 g/dL (12.0-16.0)
[2021-01-17] MEDS ORDERED: MAGNESIUM CHLORIDE 64MG DELAYED REL TAB PO SCH (21:00)
[2021-01-17] MEDS ORDERED: ONDANSETRON INJ 2 MG/ML 2 ML VIAL IV PRN (21:40)
[2021-01-17] MEDS ORDERED: LORazepam 0.5 MG/1 ML VIAL IV PRN (21:40)
[2021-01-17] MEDS ORDERED: fentaNYL citrate 100 MCG/2 ML VIAL IV STA (21:40)
[2021-01-17] MEDS ORDERED: MoRPHine SULFATE 2 MG/ML CARP IV PRN (21:40)
[2021-01-17] MEDS ORDERED: LORazepam 0.5 MG TAB PO PRN (21:40)
[2021-01-17] MEDS ORDERED: ONDANSETRON 4 MG OD TAB SL PRN (21:40)
[2021-01-17] MEDS ORDERED: fentaNYL citrate 100 MCG/2 ML VIAL ONE (21:49)
--- NOTE | 2021-01-17 22:18 | Death Pronouncement Note ---
Date of Service January 17, 2021 Pronouncement Note Admission Date Admission Date: January 17, 2021 Contributing Factors (1) Respiratory failure with hypoxia and hypercapnia: Summary Additional details: PRONOUNCEMENT NOTE - Date: 01/17/2021 Time: 2202 I was contacted by nursing staff regarding the patients declining status and concerns for imminent demise. In short, patient became unresponsive early this morning in the emergency department during x-ray following a suspected accidental opioid overdose as described in H&P. She was unresponsive to Narcan and required intubation with mechanical ventilation. She was undergoing treatment for acute hypoxic respiratory failure, multisystem organ failure, shock, and severe metabolic aci dosis. However, she was unresponsive to therapy and continued to decompensate and her prognosis was determined to be severely poor. Decision was made by the patient's power of [place] attorney and caregiver to proceed with passionate withdrawal of care and patient was made comfort care status with palliative extubation. Patient soon at 2203 this evening. Assessment: I presented to the patients room for evaluation. Upon assessment, the patient was found to be in a terminal state. Pupils were fixed and dilated without response. No palpable pulses appreciated. No spontaneous breaths noted. Heart sounds were absent. No response to painful stimuli. Time of : 2202 as pronounced by myself. Patients primary service was contacted and made aware of patient demise. Pronouncement section of the Certificate was filled out and signed by myself. Cause of : Primary -Suspect possible accidental drug overdose with narcotics. Final primary cause of to be determined by charge aide. Secondary -multisystem organ failure Contributing Causes of -metabolic acidosis, shock, acute hypoxic respiratory failure Please feel free to contact me with any questions regarding the above-mentioned course. Additional Data Attending physician: Geoffrey Card MD Coding Level of Care Code None Diagnoses Respiratory failure with hypoxia and hypercapnia J96.91; J96.92
[2021-01-17] MEDS ORDERED: SODIUM CHLORIDE 0.9% 10ML FLUSH IV ONE (23:48)
[2021-01-18] MEDS ORDERED: LEVOTHYROXINE SODIUM 200 MCG TABLET PO SCH (06:30)
--- NOTE | 2021-01-18 07:10 | Electrocardiogram Report ---
Test Reason : Blood Pressure : / mmHG Vent. Rate : 102 BPM Atrial Rate : 102 BPM P-R Int : 232 ms QRS Dur : 090 ms QT Int : 368 ms P-R-T Axes : 000 116 016 degrees QTc Int : 479 ms Sinus tachycardia with 1st degree A-V block Low voltage QRS Possible Anterolateral infarct , age undetermined Abnormal ECG When compared with ECG of 28-DEC-2020 04:40, Premature atrial complexes are no longer Present Confirmed by Christiano Hay ([id number]) on 01/18/2021 7:10:16 AM Referred By: REFERRED SELF Confirmed By:Christiano Hay
--- NOTE | 2021-01-18 07:20 | Discharge Summary ---
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 Patient was unconscious while in ED and was emergently intubated for airway protection. Patient is currently intubated and sedated and so unable to provide any history. Most of the history is obtained from patient records, ER staff, patient's caregiver. Patient was sleeping all day yesterday and complained of back pain and was very lethargic after taking baclofen. She was taking her lactulose regularly as per the caregiver. Patient went to the bathroom and had a mechanical fall and could not get up from the floor and 911 was called. No known history of chest pain, nausea, vomiting, abdominal pain, bleeding issues, fever, chills, cough. Patient was administered part of of the powder from her pain medication capsule mixed with apple sauce to help with her back pain by her caregiver. " I was told we can do it if we do not want to give the whole pill to minimize sedation. She requested for pain medication due to back pain ". She was noted to have poor urine output and her blood pressure could not be obtained. She was started on pressors while in ED. Admission Exam Per Admitting Provider Physical Exam: Vitals signs as noted above General Appearance:Morbidly Obese, Intubated Head: normocephalic, Atraumatic Eyes: normal inspection Neck: supple, Trachea midline Respiratory/Chest: Decreased breath sounds, CTA, No accessory muscle use Cardiovascular: S1, S2, No murmur Abdomen/GI:Soft, Non tender, Bowel sounds present Extremities/Musculoskeletal:normal inspection, Chronic venous stasis changes Neurologic/Psych:Intubated Skin: normal color, warm Principal Diagnosis Acute respiratory failure with hypoxia, hypercapnia ?Accidental Narcotic Overdose Likely multifactorial H/O RIMA-noncompliant with CPAP as per records, Obesity hypoventilation syndrome contributing, Secondary to Narcotic medications Acute metabolic/Toxic encephalopathy Hyperammonemia Cardiogenic shock Lactic Acidosis Acute Kidney Injury Discharge Data Allergies Allergy/AdvReac Type Severity Reaction Status Date / Time Iodinated Contrast Media Allergy Intermediate hives-PT Verified 01/17/21 08:04 DENIES SEE NOTE adhesive Allergy Mild RED RASH Verified 01/17/21 08:04 CAUSED BY PAPER TAPE vancomycin AdvReac Severe renal Verified 01/17/21 08:04 failure, required dialysis x 3 MONTHS acetaminophen AdvReac Intermediate Liver Verified 01/17/21 08:04 problems. alprazolam AdvReac Intermediate MAKES Verified 01/17/21 08:04 LOOPY,DO AND SAY SILLY THINGS codeine AdvReac Intermediate UPSET Verified 01/17/21 08:04 STOMACH haloperidol AdvReac Intermediate nervous Verified 01/17/21 08:04 and anxious metformin AdvReac Intermediate HANDS FEET Verified 01/17/21 08:04 FACE NUMB methylparaben AdvReac Intermediate FLUID Verified 01/17/21 08:04 RETENTION morphine AdvReac Intermediate SWELLING Verified 01/17/21 08:04 LEGS AND FEET oxymorphone AdvReac Intermediate FLUID Verified 01/17/21 08:04 RETENTION pregabalin AdvReac Intermediate Aphasia/Speech Verified 01/17/21 08:04 impairments gabapentin AdvReac Mild Aphasia/Speech Verified 01/17/21 08:04 impairments Sulfa (Sulfonamide AdvReac Mild GI SYMPTOMS Verified 01/17/21 08:04 Antibiotics) Consultations 01/17/21 07:33 ED Decision to Admit Stat 01/17/21 11:21 Consult Junior Business Analyst Routine 01/17/21 21:41 Consult Palliative Care Routine Ordered Studies 01/17/21 07:09 CT abd pelvis IV con only Stat CT angio chest PE protocol Stat CT head/brain wo con Stat 01/17/21 10:19 US point of care ultrasound Routine Hospital Course (1) Respiratory failure with hypoxia and hypercapnia: Acute respiratory failure with hypoxia, hypercapnia Likely multifactorial H/O RIMA-noncompliant with CPAP as per records, Obesity hypoventilation syndrome contributing, Secondary to Narcotic medcations -CXR:No pneumothorax. Cardiomegaly with pulmonary vascular congestion. Trace pleural effusions with mild bibasilar opacities. -Negative COVID Screen -S/P Intubation - CTA is pending Continue vent support Appreciate Junior Business Analyst help Nebs PRN Further management based on imaging studies Acute metabolic/Toxic encephalopathy Hyperammonemia CT head pending CT abdomen pelvis pending Hold all narcotics Continue lactulose Monitor ammonia levels Cardiogenic shock Lactic Acidosis DD: sepsis Continues to be hypotensive while on pressors Continue IV fluids Rule out blood loss anemia while on anticoagulation Noted Hb drop from baseline Hold Xarelto until bleeding ruled out Blood Cultures obtained Consider empiric antibiotics Procalcitonin: 0.93 Started on pressors Acute Kidney Injury Cr: 1.6 Avoid nephrotoxic agents as able Monitor function Acute on chronic Anemia CT head, chest, abdomen pending Check FOBT No obvious bleeding issues Monitor H&H and transfuse PRBC PRN DM II Presented with hypoglycemia Update HbA1c Continue insulin therapy Monitor BGs Hyperbilirubinemia Elevated INR MEEK cirrhosis Continue rifaximin, lactulose Moitor LFTs Hypothyroidism Continue levothyroxine DVT Px: SCDs for now Code Status Full Code Patient deteriorated despite aggressive measures. Patient's POA and investments manager agreed to transition patient to comfort measures only. Patient at 2203 on 01/17/21. As per ICU team: Cause of : Primary -Suspect possible accidental drug overdose with narcotics. Final primary cause of to be determined by head grinder. Secondary -multisystem organ failure Contributing Causes of -metabolic acidosis, shock, acute hypoxic respiratory failure Total Time Total Time Spent Total Time Spent (In Minutes): 36 minutes Discharge Plan Discharge Items Patient Disposition: Discharge Diagnosis: Acute respiratory failure with hypoxia, hypercapnia ?Accidental Narcotic Overdose Likely multifactorial H/O RIMA-noncompliant with CPAP as per records, Obesity hypoventilation syndrome contributing, Secondary to Narcotic medications Acute metabolic/Toxic encephalopathy Hyperammonemia Cardiogenic shock Lactic Acidosis Acute Kidney Injury Other Date/Time: 01/17/21 22:03
== END 2021-01-17 23:49 | disposition expired | DRG 917 ==
LOC: ED 05:29 → 1E 08:05